=== PATIENT | female | born 1950 | race Caucasian/White ===

== ENCOUNTER → 2017-10-27 10:58 | Outpatient (CLI) | payer MEDICARE, SELFPAY ==
[2017-10-27 12:16] LABS: Absolute Lymphocyte Count 1.01 X10^3/ul (0.83-4.51); Absolute Neutrophil Count 3.2 X10^3/uL (2.0-7.7); Basophil# 0.02 X10^3/uL; Basophil% 0.4 % (0-1); Eosinophil# 0.24 X10^3/uL; Eosinophils% 4.9 % (0-5); Hematocrit 41.1 % (37-47); Hemoglobin 13.7 g/dl (12.0-15.0); Lymphocyte # 1.01 X10^3/ul (4.0); Lymphocyte % 20.4 % (19-41); Mean Corp Hgb Conc 33.3 g/gl (32-36); Mean Corpuscular Hgb 29.8 pg (27.0-32.0); Mean Corpuscular Volume 89.5 fL (81-99); Mean Platelet Vol. 10.3 fl (6.2-12.0); Monocyte# 0.44 X10^3/uL; Monocyte% 8.9 % (0-10); Neutrophil # 3.22 X10^3/uL (2.7-7.7); Neutrophil % 65.2 % (47-70); Platelet Count 232 K/mm3 (150-450); RBC Distribution Width CV 14.4 % (11.6-14.6); RBC Distribution Width SD 47.2 fl (35.1-43.9); Red Blood Count 4.59 M/mm3 (4.2-5.4); White Blood Count 4.9 K/mm3 (4.4-11.0)
[2017-10-27 12:19] LABS: POSITIVE COUNT NO; POSITIVE DIFFERENTIAL NO; POSITIVE MORPHOLOGY NO
[2017-10-27 12:22] LABS: Vitamin D,25 Hydroxy 45.2 ng/mL (19.95-100.01)
[2017-10-27 12:25] LABS: AST(SGOT) 18 U/L (15-37); Alanine Aminotransfer ALT/SGPT 26 U/L (13-56); Albumin, Serum 3.8 g/dL (3.2-5.0); Alkaline Phosphatase 102 U/L (45-117); Anion Gap 8 (5-15); BUN 18 mg/dL (7-18); Calcium,Total 8.9 mg/dL (8.5-10.1); Chloride 105 mmol/L (98-107); EST Glomerular Filtration Rate 58 mL/min (>60); Est Glom Filt Rate - Afr Amer 71 mL/min (>60); Globulin 3.9 g/dL (2.2-4.2); Glucose 100 mg/dL (74-106); Potassium 4.2 mmol/L (3.5-5.1); Protein, Total 7.7 g/dL (6.4-8.2); Sodium Level 141 mmol/L (136-145); Thyroid Stim Hormone (TSH) 1.11 uIU/mL (0.358-3.74)
== END ==
PROVIDERS: Family Provider Family Medicine Geriatric Medicine; PCP Family Medicine Geriatric Medicine; Visit Provider Family Medicine Geriatric Medicine
DX: E55.9 Vitamin D deficiency, unspecified (principal); I10 Essential (primary) hypertension
CPT/HCPCS: 36415; 80053; 82306; 84443; 85025

== ENCOUNTER → 2018-03-17 14:05 | Outpatient (CLI) | payer MEDICARE, OTHER, SELFPAY | PROVIDERS: Family Provider Family Medicine Geriatric Medicine; PCP Family Medicine Geriatric Medicine; Visit Provider Family Medicine Geriatric Medicine | DX: R50.9 Fever, unspecified (principal) | CPT/HCPCS: 87633 ==

== ENCOUNTER → 2018-05-12 15:07 | Outpatient (CLI) | payer MEDICARE, OTHER, SELFPAY ==
[2018-05-12 16:17] LABS: Absolute Lymphocyte Count 1.27 X10^3/ul (0.83-4.51); Absolute Neutrophil Count 2.8 X10^3/uL (2.0-7.7); Basophil# 0.02 X10^3/uL; Basophil% 0.4 % (0-1); Eosinophil# 0.18 X10^3/uL; Eosinophils% 3.7 % (0-5); Hematocrit 39.5 % (37-47); Hemoglobin 13.1 g/dl (12.0-15.0); Lymphocyte # 1.27 X10^3/ul (4.0); Lymphocyte % 26.4 % (19-41); Mean Corp Hgb Conc 33.2 g/gl (32-36); Mean Corpuscular Hgb 29.8 pg (27.0-32.0); Mean Corpuscular Volume 89.8 fL (81-99); Mean Platelet Vol. 10.1 fl (6.2-12.0); Monocyte# 0.51 X10^3/uL; Monocyte% 10.6 % (0-10); Neutrophil # 2.83 X10^3/uL (2.7-7.7); Neutrophil % 58.9 % (47-70); Platelet Count 223 K/mm3 (150-450); RBC Distribution Width CV 13.7 % (11.6-14.6); RBC Distribution Width SD 44.6 fl (35.1-43.9); White Blood Count 4.8 K/mm3 (4.4-11.0)
[2018-05-12 16:22] LABS: POSITIVE COUNT NO; POSITIVE DIFFERENTIAL NO; POSITIVE MORPHOLOGY NO
[2018-05-12 17:18] LABS: ALB/GLOB Ratio 1.1 RATIO (0.9-2.4); AST(SGOT) 19 U/L (15-37); Alanine Aminotransfer ALT/SGPT 21 U/L (13-56); Albumin, Serum 3.7 g/dL (3.2-5.0); Alkaline Phosphatase 87 U/L (45-117); Anion Gap 12 (5-15); BUN 15 mg/dL (7-18); BUN/Creat Ratio 16.5 RATIO (10-20); Calcium,Total 8.7 mg/dL (8.5-10.1); Chloride 105 mmol/L (98-107); Creatinine, Serum 0.91 mg/dL (0.55-1.02); EST Glomerular Filtration Rate 65 mL/min (>60); Est Glom Filt Rate - Afr Amer 79 mL/min (>60); Globulin 3.4 g/dL (2.2-4.2); Glucose 83 mg/dL (74-106); Potassium 3.9 mmol/L (3.5-5.1); Protein, Total 7.1 g/dL (6.4-8.2); Sodium Level 143 mmol/L (136-145); Thyroid Stim Hormone (TSH) 1.14 uIU/mL (0.358-3.74)
[2018-05-13 09:19] LABS: Vitamin D,25 Hydroxy 58.2 ng/mL (29.95-100.01)
[2018-05-15 11:19] LABS: Hep C Antibodies 0.1 s/co ratio (0.0-0.9)
== END ==
PROVIDERS: Family Provider Family Medicine Geriatric Medicine; PCP Family Medicine Geriatric Medicine; Visit Provider Family Medicine Geriatric Medicine
DX: E55.9 Vitamin D deficiency, unspecified (principal); I10 Essential (primary) hypertension; Z13.89 Encounter for screening for other disorder
CPT/HCPCS: 36415; 80053; 82306; 84443; 85025; 86803

== ENCOUNTER → 2018-05-17 08:27 | Outpatient (CLI) | payer MEDICARE, OTHER, SELFPAY | PROVIDERS: Family Provider Family Medicine Geriatric Medicine; PCP Family Medicine Geriatric Medicine; Visit Provider Obstetrics & Gynecology | DX: Z12.31 Encounter for screening mammogram for malignant neoplasm of breast (principal) | CPT/HCPCS: 77063; 77067 ==

== ENCOUNTER → 2018-10-11 12:21 | Outpatient (CLI) | payer MEDICARE, OTHER, SELFPAY ==
--- NOTE | 2018-10-11 12:24 | RAD_ITS ---
STUDY: X-RAY - CERVICAL SPINE REASON FOR EXAM: Female, 68 years old. Pain following a fall. TECHNIQUE: 3 view(s) of the cervical spine were obtained. COMPARISON: None FINDINGS: Normal anterior atlantoaxial articulation. Normal odontoid process. Normal cervical lordosis. Normal vertebral bodies and endplates. Mild degree of disc space narrowing at the C5-C6 and C6-C7 levels. Facet joint osteoarthritis. The soft tissue structures are unremarkable. RAD/Cerv Spine 2 or 3 Views IMPRESSION: Mild degree of disc space narrowing at the C5-C6 and C6-C7 levels. Facet joint osteoarthritis. Electronically Signed: Aristides Colin MD at 8:58 EST Tel [phone], Service support ,
--- NOTE | 2018-10-11 12:24 | CT_ITS ---
STUDY: CT BRAIN WITHOUT CONTRAST REASON FOR EXAM: Female, 68 years old. Injury to the posterior aspect of the head following a fall. Sensitivity to light. RADIATION DOSAGE (If Supplied By Facility): CTDIvol = ( 44.99 ) mGy, DLP = ( 745.49 ) mGycm TECHNIQUE: Transaxial CT imaging of the brain was performed without administration of intravenous contrast material. Individualized dose optimization techniques were used for this CT. COMPARISON: Comparison is made with prior study dated September 30, 2013. FINDINGS: Normal soft tissue structures. Normal calvarium. Normal size ventricles and extra-axial spaces for the patient's age. Normal white matter tracts of the cerebral hemispheres. Normal basal ganglia and thalami. Normal brainstem. Normal cerebellum. There is no intracranial hemorrhage. There are no findings of an acute ischemic infarction. Normal visualized paranasal sinuses. CT/Brain/Head without Contrast IMPRESSION: Normal unenhanced CT scan of the brain. Electronically Signed: Aristides Colin MD at 12:55 EST Tel [phone], Service support ,
[2018-10-11 17:33] LABS: Absolute Lymphocyte Count 0.86 X10^3/ul (0.83-4.51); Basophil# 0.01 X10^3/uL; Basophil% 0.2 % (0-1); Eosinophil# 0.13 X10^3/uL; Eosinophils% 2.9 % (0-5); Hematocrit 39.1 % (37-47); Hemoglobin 12.8 g/dl (12.0-15.0); Lymphocyte # 0.86 X10^3/ul (4.0); Lymphocyte % 19.2 % (19-41); Mean Corp Hgb Conc 32.7 g/gl (32-36); Mean Corpuscular Volume 91.8 fL (81-99); Mean Platelet Vol. 10.2 fl (6.2-12.0); Monocyte# 0.45 X10^3/uL; Neutrophil # 3.03 X10^3/uL (2.7-7.7); Neutrophil % 67.7 % (47-70); Platelet Count 194 K/mm3 (150-450); RBC Distribution Width CV 14.1 % (11.6-14.6); RBC Distribution Width SD 47.1 fl (35.1-43.9); Red Blood Count 4.26 M/mm3 (4.2-5.4); White Blood Count 4.5 K/mm3 (4.4-11.0)
[2018-10-11 17:34] LABS: POSITIVE COUNT NO; POSITIVE DIFFERENTIAL NO; POSITIVE MORPHOLOGY NO
[2018-10-11 17:37] LABS: Anion Gap 8 (5-15); BUN 17 mg/dL (7-18); BUN/Creat Ratio 19.7 RATIO (10-20); Calcium,Total 8.6 mg/dL (8.5-10.1); Chloride 109 mmol/L (98-107); Creatinine, Serum 0.86 mg/dL (0.55-1.02); EST Glomerular Filtration Rate 69 mL/min (>60); Est Glom Filt Rate - Afr Amer 84 mL/min (>60); Glucose 78 mg/dL (74-106); Potassium 4.1 mmol/L (3.5-5.1); Sodium Level 143 mmol/L (136-145)
--- OUTSIDE RECORDS SUMMARY | 2018-12-13 16:01 | XMS RPT_ITS ---
:1950 Author Organization [place] Support Name Relationship Address Phone R Unavailable Unavailable Unavailable TRISTIAN BRADFORD Unavailable [address] + [address] [place] [address] GNENY BRADFORD Unavailable [address] + [place] [address] R Unavailable Unavailable Unavailable TRISTIAN BRADFORD Unavailable [address] + [address] [place] [address] GENNY BRADFORD Unavailable [address] + [place] [address] R Unavailable Unavailable Unavailable TRISTIAN BRADFORD Unavailable [address] + [address] [place] [address] GENNY BRADFORD Unavailable [address] + [place] [address] R Unavailable Unavailable Unavailable TRISTIAN BRADFORD Unavailable [address] + [address] [place] [address] GENNY BRADFORD Unavailable [address] + [place] [address] R Unavailable Unavailable Unavailable TRISTIAN BRADFORD Unavailable [address] + [address] [place] [address] GENNY BRADFORD Unavailable [address] + [place] [address] R Unavailable Unavailable Unavailable TRISTIAN BRADFORD Unavailable [address] + [address] [place] [address] GENNY BRADFORD Unavailable [address] + [place] [address] R Unavailable Unavailable Unavailable TRISTIAN BRADFORD Unavailable [address] + [address] [place] [address] SANCHEZ, GENNY Unavailable [address] + [place] [address] R Unavailable Unavailable Unavailable TRISTIAN BRADFORD Unavailable [address] + [address] [place] [address] YOHARPREET, GENNY Unavailable [address] + [place] [address] Care Team Providers Name Role Phone Shine, Desmond Chi Attending Unavailable Shine, Desmond Chi Referring Unavailable Shine, Desmond Chi Primary Care Unavailable Shine, Desmond Chi Attending Unavailable Shine, Desmond Chi Primary Care Unavailable Kylee Verdin Attending Unavailable Mary Abreu Attending Unavailable Segundo Lyons Attending Unavailable Shine, Desmond Chi Referring Unavailable Shine, Desmond Chi Primary Care Unavailable Shine, Desmond Chi Attending Unavailable Shine, Desmond Chi Referring Unavailable Shine, Desmond Chi Primary Care Unavailable Shaneka Mcclendon Attending Unavailable Shine, Desmond Chi Primary Care Unavailable Shine, Desmond Chi Attending Unavailable Shine, Desmond Chi Primary Care Unavailable PROBLEMS PROBLEMS DATE TYPE CONDITION / CODE ATTENDING STATUS SOURCE 05/12/2018 Unknown E55.9 - Vitamin D Shine, Desmond Chi Active Mj deficiency, Community unspecified / Hospital E55.9(ICD-10) Repository 03/17/2018 Unknown R50.9 - Fever, Shine, Desmond Chi Active Mj unspecified / Community R50.9(ICD-10) Hospital Repository 10/29/2017 Unknown I10 - Essential Shine, Desmond Chi Active Mj (primary) Community hypertension / Hospital I10(ICD-10) Repository PROCEDURES PROCEDURES No Procedure Records FoundRESULTS RESULTS CBC W/DIFF, AUTOMATED Collected: 10/11/2018 Status: F Source: MJ 2:11 PM [facility] HOSPITAL REPOSITORY TYPE CODE TESTS RESULT OUT OF RANGE REFERENCE UNITS LAB L100.1000 4.4-11.0 K/mm3 Normal WBC 4.5 LAB L100.1200 4.2-5.4 M/mm3 Normal RBC 4.26 LAB L100.1300 12.0-15.0 g/dl Normal HGB 12.8 LAB L100.1400 37-47 % Normal HCT 39.1 LAB L100.1500 81-99 fL Normal MCV 91.8 LAB L100.1600 27.0-32.0 pg Normal MCH 30.0 LAB L100.1700 32-36 g/gl Normal MCHC 32.7 LAB L100.1810 11.6-14.6 % Normal RDW CV 14.1 LAB L100.1820 35.1-43.9 fl High RDW SD 47.1 LAB L100.1900 150-450 K/mm3 Normal PLT 194 LAB L100.2000 6.2-12.0 fl Normal MPV 10.2 LAB L100.2100 47-70 % Normal NEUT% 67.7 LAB L100.2200 19-41 % Normal LY% 19.2 LAB L100.2300 0-10 % Normal MONO% 10.0 LAB L100.2400 0-5 % Normal EO% 2.9 LAB L100.2500 0-1 % Normal BASO% 0.2 LAB L100.2550 0.0-0.9 % Normal IM GRAN % 0.000 Result Comment: IG% - Immature Granulocytes (promyelocytes, myelocytes and metamyelocytes) > 1% indicates that a LEFT SHIFT is Present. LAB L100.2620 2.0-7.7 X10 3/uL Normal Absolute Neut 3.0 LAB L100.2720 0.83-4.51 X10 3/ul Normal Absolute Lymph 0.86 Performed By: #### L100.0100 #### [facility] [place], [place], [id number] BASIC METABOLIC Collected: 10/11/2018 Status: F Source: [place] PROFILE (BMP) 2:11 PM [facility] REPOSITORY TYPE CODE TESTS RESULT OUT OF RANGE REFERENCE UNITS LAB L501.0100 74-106 mg/dL Normal GLU 78 Result Comment: Please note revised GLUCOSE reference range effective 2017. LAB L501.1000 7-18 mg/dL Normal BUN 17 LAB L501.1100 0.55-1.02 mg/dL Normal CREAT,SERUM 0.86 Result Comment: The validity of the calculated GFR AND GFRAA in patients over 70 years has not been determined. Clinical correlation is essential. LAB L501.1110 >60 mL/min Normal EST GFR 69 Result Comment: Non- GFR Calc LAB L501.1115 >60 mL/min Normal EST GFR - AA 84 Result Comment: GFR Calc LAB L501.1300 10-20 RATIO Normal BUN/CRE 19.7 LAB L501.2200 8.5-10.1 mg/dL CA Normal 8.6 LAB L501.5300 136-145 mmol/L NA Normal 143 LAB L501.5600 3.5-5.1 mmol/L K Normal 4.1 LAB L501.5900 98-107 mmol/L High CL 109 LAB L501.6100 21.0-32.0 mmol/L Normal CO2 26.0 LAB L501.6200 5-15 Normal GAP 8 Performed By: #### L500.2500 #### [facility] [address] [facility], [address] BRAIN/HEAD WITHOUT Observed: 10/11/2018 Status: F Source: [place] CONTRAST 12:24 PM [facility] REPOSITORY [facility] Imaging Services [address] [place] [address] Brain/Head without Contrast MR#: [id number] Acct: [id number] Name: VIOLA BRADFORD Rep #: [id number] : 1950 F 68 From: Aristides Colin MD PCP: Desmond Riojas MD, Chi Status: REG CLI Study: Brain/Head without Contrast Date of Exam: 10/11/18 Exam# [id number] Ordering Dr: Desmond Riojas MD STUDY: CT BRAIN WITHOUT CONTRAST REASON FOR EXAM: Female, 68 years old. Injury to the posterior aspect of the head following a fall. Sensitivity to light. RADIATION DOSAGE (If Supplied By Facility): CTDIvol = ( 44.99 ) mGy, DLP = ( 745.49 ) mGycm TECHNIQUE: Transaxial CT imaging of the brain was performed without administration of intravenous contrast material. Individualized dose optimization techniques were used for this CT. COMPARISON: Comparison is made with prior study dated September 30, 2013. FINDINGS: Normal soft tissue structures. Normal calvarium. Normal size ventricles and extra-axial spaces for the patient's age. Normal white matter tracts of the cerebral hemispheres. Normal basal ganglia and thalami. Normal brainstem. Normal cerebellum. There is no intracranial hemorrhage. There are no findings of an acute ischemic infarction. Normal visualized paranasal sinuses. CT/Brain/Head without Contrast IMPRESSION: Normal unenhanced CT scan of the brain. Electronically Signed: Aristides Colin MD at 12:55 EST Tel [phone], Service support , CC: Desmond Riojas MD Air Press Operator: Signed CERV SPINE 2 OR 3 Observed: 10/11/2018 Status: F Source: [place] VIEWS 12:24 PM [facility] REPOSITORY [facility] Imaging Services [address] [place] [address] Cerv Spine 2 or 3 Views MR#: [id number] Acct: [id number] Name: VIOLA BRADFORD Rep #: [id number] : 1950 F 68 From: Aristides Colin MD PCP: Desmond Riojas MD, Chi Status: REG CLI Study: Cerv Spine 2 or 3 Views Date of Exam: 10/11/18 Exam# [id number] Ordering Dr: Desmond Riojas MD STUDY: X-RAY - CERVICAL SPINE REASON FOR EXAM: Female, 68 years old. Pain following a fall. TECHNIQUE: 3 view(s) of the cervical spine were obtained. COMPARISON: None FINDINGS: Normal anterior atlantoaxial articulation. Normal odontoid process. Normal cervical lordosis. Normal vertebral bodies and endplates. Mild degree of disc space narrowing at the C5-C6 and C6-C7 levels. Facet joint osteoarthritis. The soft tissue structures are unremarkable. RAD/Cerv Spine 2 or 3 Views IMPRESSION: Mild degree of disc space narrowing at the C5-C6 and C6-C7 levels. Facet joint osteoarthritis. Electronically Signed: Aristides Colin MD at 8:58 EST Tel [phone], Service support , CC: Desmond Riojas MD Air Press Operator: Signed SCREENING MAMM (CAD), Observed: 05/17/2018 Status: F Source: MJ BILAT 8:32 AM [facility] REPOSITORY [facility] Imaging Services [address] [place] [address] SCREENING MAMM (CAD), BILAT MR#: [id number] Acct: [id number] Name: VIOLA BRADFORD Rep #: [id number] : 1950 F 68 From: Aristides Colin MD PCP: Desmond Riojas MD, Chi Status: REG CLI Study: SCREENING MAMM (CAD), BILAT Date of Exam: 05/17/18 Exam# [id number] Ordering Dr: Shaneka Mcclendon MD MAMMOGRAPHY - BILATERAL SCREENING REASON FOR EXAM: Female, 68 years old. Routine annual screening examination. PERTINENT HISTORY: Non-contributory. TECHNIQUE: Digital bilateral breast odell (3D mammographic acquisition) in the CC and MLO projections. 2-D mediolateral oblique (MLO) and craniocaudad (CC) views of both breasts were obtained. CAD: Full Field Digital Mammography with Computer Added Detection was performed. COMPARISON: Comparison is made with prior examination dated May 12, 2017 and May 11, 2016. FINDINGS: Breast Composition: The breasts are almost entirely fatty. There are no dominant masses or suspicious calcifications. Stable benign-appearing bilateral axillary lymph nodes and vascular calcifications. No other significant abnormalities are identified. There has been no significant change since the prior study. BI/SCREENING MAMM (CAD), BILAT IMPRESSION: Stable bilateral screening mammogram. Yearly follow-up mammogram recommended. (A) ASSESSMENT CATEGORY: BIRADS Category 2: Benign. A letter regarding these results will be sent to the patient by the facility within 30 days. Approximately 10% of breast cancers are not detected by mammography. A normal mammogram should not delay biopsy of a clinically suspicious abnormality. [id number] Electronically Signed: Aristides Colin MD at 10:26 EDT Tel [phone], Service support , CC: Shaneka Mcclendon MD; Desmond Riojas MD Air Press Operator: Signed CBC W/DIFF, AUTOMATED Collected: 05/12/2018 Status: F Source: [place] 3:14 PM [facility] REPOSITORY TYPE CODE TESTS RESULT OUT OF RANGE REFERENCE UNITS LAB L100.1000 4.4-11.0 K/mm3 Normal WBC 4.8 LAB L100.1200 4.2-5.4 M/mm3 Normal RBC 4.40 LAB L100.1300 12.0-15.0 g/dl Normal HGB 13.1 LAB L100.1400 37-47 % Normal HCT 39.5 LAB L100.1500 81-99 fL Normal MCV 89.8 LAB L100.1600 27.0-32.0 pg Normal MCH 29.8 LAB L100.1700 32-36 g/gl Normal MCHC 33.2 LAB L100.1810 11.6-14.6 % Normal RDW CV 13.7 LAB L100.1820 35.1-43.9 fl High RDW SD 44.6 LAB L100.1900 150-450 K/mm3 Normal PLT 223 LAB L100.2000 6.2-12.0 fl Normal MPV 10.1 LAB L100.2100 47-70 % Normal NEUT% 58.9 LAB L100.2200 19-41 % Normal LY% 26.4 LAB L100.2300 0-10 % High MONO% 10.6 LAB L100.2400 0-5 % Normal EO% 3.7 LAB L100.2500 0-1 % Normal BASO% 0.4 LAB L100.2550 0.0-0.9 % Normal IM GRAN % 0.000 Result Comment: IG% - Immature Granulocytes (promyelocytes, myelocytes and metamyelocytes) > 1% indicates that a LEFT SHIFT is Present. LAB L100.2620 2.0-7.7 X10 3/uL Normal Absolute Neut 2.8 LAB L100.2720 0.83-4.51 X10 3/ul Normal Absolute Lymph 1.27 Performed By: #### L100.0100 #### [facility] [address] [place], [address] COMPREHENSIVE METABOLIC Collected: 05/12/2018 Status: F Source: [facility] 3:14 PM [facility] REPOSITORY TYPE CODE TESTS RESULT OUT OF RANGE REFERENCE UNITS LAB L501.0100 74-106 mg/dL Normal GLU 83 Result Comment: Please note revised GLUCOSE reference range effective 2017. LAB L501.1000 7-18 mg/dL Normal BUN 15 LAB L501.1100 0.55-1.02 mg/dL Normal CREAT,SERUM 0.91 Result Comment: The validity of the calculated GFR AND GFRAA in patients over 70 years has not been determined. Clinical correlation is essential. LAB L501.1110 >60 mL/min Normal EST GFR 65 Result Comment: Non- GFR Calc LAB L501.1115 >60 mL/min Normal EST GFR - AA 79 Result Comment: GFR Calc LAB L501.1300 10-20 RATIO Normal BUN/CRE 16.5 LAB L501.1500 6.4-8.2 g/dL T Normal PROT 7.1 LAB L501.1800 3.2-5.0 g/dL Normal ALB 3.7 LAB L501.1950 2.2-4.2 g/dL Normal GLOB 3.4 LAB L501.2000 0.9-2.4 RATIO Normal A/G 1.1 LAB L501.2200 8.5-10.1 mg/dL CA Normal 8.7 LAB L501.4100 15-37 U/L Normal AST 19 LAB L501.4305 45-117 U/L Normal ALK P 87 LAB L501.4405 13-56 U/L Normal ALT 21 LAB L501.4600 0.20-1.00 mg/dL T Normal BILI 0.50 LAB L501.5300 136-145 mmol/L NA Normal 143 LAB L501.5600 3.5-5.1 mmol/L K Normal 3.9 LAB L501.5900 98-107 mmol/L CL Normal 105 LAB L501.6100 21.0-32.0 mmol/L Normal CO2 26.0 LAB L501.6200 5-15 Normal GAP 12 Performed By: #### L500.4050, L501.9520 #### [facility] [address] [place], [address] THYROID STIM HORMONE Collected: 05/12/2018 Status: F Source: [place] (TSH) 3:14 PM [facility] REPOSITORY TYPE CODE TESTS RESULT OUT OF RANGE REFERENCE UNITS LAB L501.9520 0.358-3.74 uIU/mL Normal TSH 1.14 Performed By: #### L500.4050, L501.9520 #### [facility] [address] [facility]. [place], [place], [address] VITAMIN D,25 HYDROXY Collected: 05/12/2018 Status: F Source: [place] 3:14 PM [facility] REPOSITORY TYPE CODE TESTS RESULT OUT OF RANGE REFERENCE UNITS LAB L506.1000 29.95-100.01 ng/mL Normal Vitamin D 58.2 25-OH Result Comment: Vitamin D 25(OH) Status Range Deficiency <20 ng/mL (50nmol/L) Insuffciency 20 - 30 ng/mL (50 - 75 nmol/L) Sufficiency 30 - 100 ng/mL (75 - 250 nmol/L) Toxicity >100 ng/mL (>250 nmol/L) Performed By: #### L506.1000 #### [facility] [address] [facility]. [place], [place], [address] HEPATITIS C ANTIBODIES Collected: 05/12/2018 Status: F Source: [place] 3:14 PM [facility] REPOSITORY TYPE CODE TESTS RESULT OUT OF RANGE REFERENCE UNITS LAB L3100.0650 0.0-0.9 s/co ratio Normal HEP C AB 0.1 Result Comment: Negative: < 0.8 Indeterminate: 0.8 - 0.9 Positive: > 0.9 The CDC recommends that a positive HCV antibody result be followed up with a HCV Nucleic Acid Amplification test ([id number]). Performed at: - [facility] [address] [id number] Tennis Professional: Fausto Chang PhD, Phone: [phone] Performed By: #### L3100.0625 #### [facility] (refer to report for specific site) refer to report for address and phone number Observed: 03/17/2018 Status: F Source: [place] RESPIRATORY PANEL 2:16 PM [facility] MOLECULAR REPOSITORY Copy of report sent to Infection Control Printer [id number] 03/18/1827 ApruveNNON. Results called on 03/18/18 by DCANNON to /NURSE LINE [phone]. RP PANEL Normal Reference Range = Not Detected ADENOVIRUS Not Detected HUMAN METAPHNEUMO Not Detected INFLUENZA A Not Detected INFLUENZA A (SUBTYPE H1) Not Detected INFLUENZA A (SUBTYPE H3) Not Detected INFLUENZA B Not Detected PARAINFLUENZA 1 Not Detected PARAINFLUENZA 2 Not Detected PARAINFLUENZA 3 Not Detected PARAINFLUENZA 4 Not Detected RHINOVIRUS Positive for RHINOVIRUS by NAAT technology RSV A Not Detected RSV B Not Detected NAAT METHOD Testing was performed using nucleic acid amplification ORGANISM 1: RHINOVIRUS Performed By: #### M100.638 #### [facility] [address] [place] [address]. [place], [address] CARDIOLOGY VISIT Observed: 11/18/2017 Status: F Source: [place] REPORT 7:09 AM [facility] REPOSITORY [facility] [facility] [place] [address] OFFICE VISIT Date of Service: 11/17/17 MR#: [id number] Acct: [id number] Name: VIOLA BRADFORD Rep #: [id number] : 1950 Provider: SERENA Lyons Age/Sex: 67/F Location: [facility] Status: Signed HPI HPI Details: VIOLA BRADFORD, is a 67 F who presents to the office today for a cardiovascular outpatient follow-up. Patient has a history of paroxysmal atrial fibrillation, hypertension, hyperlipidemia, and factor V deficiency. Pt. denies chest, arm, jaw, or neck discomfort. His exercise tolerance is stable. Pt. denies symptoms of CHF, palpitations, lightheadedness, dizziness, near syncope, or syncopal episodes. Pt. denies worsening edema or claudication issues. Pt. denies orthopnea, PND, fever, chills, blood in urine, blood in stool, myalgia, or unexplainable fatigue. 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: No Accompanied by: None Is patient in pain?: No Allergies cefdinir Allergy (Verified 03/04/16 13:52) Unknown diphenhydramine HCl [From Benadryl] Allergy (Verified 03/04/16 13:52) Hives Sulfa (Sulfonamide Antibiotics) Allergy (Verified 03/04/16 13:52) Hives Medications ALPRAZolam [Xanax] 0.25 mg PO DAILY 09/29/13 [History Confirmed 11/16/17] Levocetirizine Dihydrochloride [Xyzal] 5 mg PO DAILY 09/29/13 [History Confirmed 11/16/17] Montelukast [Singulair] 10 mg PO DAILY 09/29/13 [History Confirmed 11/16/17] Omeprazole [Prilosec] 20 mg PO DAILY 09/29/13 [History Confirmed 11/16/17] Potassium Chloride [K-Dur] 20 meq PO BID 09/29/13 [History Confirmed 11/16/17] Verapamil HCl [Verapamil ER] 240 mg PO DAILY 09/29/13 [History Confirmed 11/16/17] Zolpidem Tartrate [Ambien] 10 mg PO QHS PRN PRN 09/29/13 [History Confirmed 11/16/17] apixaban 5 mg tablet 5 mg PO BID 11/10/17 [History Confirmed 11/16/17] ergocalciferol (vitamin D2) 50,000 unit capsule 50,000 unit PO QMONTH 11/10/17 [History Confirmed 11/16/17] furosemide 40 mg tablet 40 mg PO QDAY 11/10/17 [History Confirmed 11/16/17] cyclobenzaprine 10 mg tablet 10 mg PO BID tab 11/16/17 [History Confirmed 11/17/17] naltrexone 8 mg-bupropion 90 mg tablet,extended release 2 tab PO BID tab 11/16/17 [History Confirmed 11/17/17] pravastatin 80 mg tablet 80 mg PO QHS 11/16/17 [History Confirmed 11/17/17] citalopram 40 mg tablet 40 mg PO QDAY tab 11/17/17 [History Confirmed 11/17/17] Ejection fraction %: 65 to 70 PFSH Medical History Paroxysmal atrial fibrillation (Chronic) Long-term use of high-risk medication (Acute) Hyperlipidemia (Chronic) Hypertension (Chronic) Factor V deficiency (Chronic) CKD (chronic kidney disease) (Acute) History of DVT (deep vein thrombosis) (Acute) VALENTIN (obstructive sleep apnea) (Acute) Atrial fibrillation (Inactive) CKD (chronic kidney disease) (Inactive) Fall due to ice or snow (Inactive) Family history of CVA (Inactive) Family history of coronary artery disease (Inactive) Family history of hypertension (Inactive) Head injury without concussion or intracranial hemorrhage (Inactive) account support rep use of drug (Inactive) Obesity, Class III, BMI 40-49.9 (morbid obesity) (Inactive) Traumatic ulcer of left lower extremity (Inactive) Surgical History History of bilateral knee replacement (Resolved) History of cholecystectomy (Resolved) History of total hysterectomy (Resolved) Family History Brother CAD (coronary artery disease) Mother CVA (cerebral vascular accident) CAD (coronary artery disease) Son Hypertension Daughter Hypertension Other Family history of CVA Family history of coronary artery disease Family history of hypertension Social History Smoking Status: Never smoker alcohol intake: never substance use type: does not use caffeine: Yes Type: tea what type of physical activity do you participate in: none seatbelt use: always do you feel safe at home: Yes ROS Const Const: Negative for fatigue, weakness, body ache, fever(s) or chills ENT ENT: Negative for dizziness Cardio Chest Pain: No Palpitations: No Edema: None Muscle aches with walking: None Resp Respiratory: Negative for SOB with activity, SOB at rest, SOB orthopnea\SOB lying down or paroxysmal nocturnal dyspnea GI GI: Negative nausea, black,tarry stools, bright, red blood in stools or vomiting blood/hematemesis : Negative for hematuria or frequent nighttime urination/ nocturia Musc Musc: Negative for muscle aches/ myalgia Neuro Neuro: Negative for weakness, dizziness, lightheadedness, near syncope, syncope or orthostatic symptoms Endo Endo: Negative for fatigue Cardiology Exam Const Appearance: cooperative, healthy appearing, comfortable and no acute distress Orientation: alert, awake and oriented x3 Head Head: normal to inspection Mouth: oral mucosae normal Neck Neck: no JVD and normal visual inspection Carotids: normal carotid upstroke Chest Chest inspection: normal inspection of the chest and normal respiratory effort Auscultation: Bilateral: Clear to Auscultation Cardio Rate: regular rate Rhythm: regular rhythm Heart sounds: S1 normal and S2 normal; negative rub or gallop GI GI: normal to inspection Neuro General: alert, awake, oriented x3 and CN's II-XI intact bilaterally Skin Skin: no rashes or lesions noted Extremities Pulses: Normal: Right Posterior Tibial Pulse, Left Posterior Tibial Pulse, Right Radial Pulse, Left Radial Pulse Lower Extremity Edema: None: Bilateral Psych Psychological: normal affect Supplemental Info Cardiovascular stress test from August 2014 was negative for stress-induced myocardial ischemia and reported an ejection fraction 59%. Echocardiogram from October 2012 showed an estimated ejection fraction of 65%, mild to moderate left atrial enlargement, mildly enlarged right atrium, mild diffuse mitral valve thickening, mild tricuspid valve insufficiency, mild diffuse aortic valve thickening, and an RVSP of 33 mmHg. Assessment AND Plan 1. Paroxysmal atrial fibrillation I48.0 Plan - LIZ Campbell Patient appears to be maintaining regular rhythm. Patient denies any secondary symptoms from this. Her heart rate has remained well controlled since discontinuing beta-stefna. She will continue with factor Xa inhibitor. We will continue to monitor this. 2. Essential hypertension I10 Plan - LIZ Campbell Patient's blood pressure remains on the higher end of expected range. At this time we will continue to monitor this. It appears to be steady since discontinuing beta-stefan. We will not make any medication regimen changes. 3. Mixed hyperlipidemia E78.2 Plan - LIZ Campbell Patient states this is being managed by primary care physician. Patient will continue with current cholesterol lowering medication. 4. 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 Plan Detail Additional Comments - Segundo H Roof, RETAIL LEASING AGENT-C Discussed the above patient with Dr. Smyth in Dr. Garzon's absence, he agrees with the plan of care. Thank you for allowing us to participate in the patients plan of care, if you have any questions please do not hesitate to call. This note was generated using a voice recognition system and there may be incorrect words, spelling or punctuation that were not noted when reviewing the office note prior to saving. 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 11/17/17 1509 <Electronically signed by Segundo DAWKINSC> Date Segundo Lyons RETAIL LEASING AGENT-C 11/18/17 0709<Electronically signed by Dionicio Smyth MD> Cosigner Signature: Date (if applicable) Dionicio Smyth MD CC: Desmond Riojas MD CBC W/DIFF, AUTOMATED Collected: 10/27/2017 Status: F Source: MJ 11:48 AM [facility] REPOSITORY TYPE CODE TESTS RESULT OUT OF RANGE REFERENCE UNITS LAB L100.1000 4.4-11.0 K/mm3 Normal WBC 4.9 LAB L100.1200 4.2-5.4 M/mm3 Normal RBC 4.59 LAB L100.1300 12.0-15.0 g/dl Normal HGB 13.7 LAB L100.1400 37-47 % Normal HCT 41.1 LAB L100.1500 81-99 fL Normal MCV 89.5 LAB L100.1600 27.0-32.0 pg Normal MCH 29.8 LAB L100.1700 32-36 g/gl Normal MCHC 33.3 LAB L100.1810 11.6-14.6 % Normal RDW CV 14.4 LAB L100.1820 35.1-43.9 fl High RDW SD 47.2 LAB L100.1900 150-450 K/mm3 Normal PLT 232 LAB L100.2000 6.2-12.0 fl Normal MPV 10.3 LAB L100.2100 47-70 % Normal NEUT% 65.2 LAB L100.2200 19-41 % Normal LY% 20.4 LAB L100.2300 0-10 % Normal MONO% 8.9 LAB L100.2400 0-5 % Normal EO% 4.9 LAB L100.2500 0-1 % Normal BASO% 0.4 LAB L100.2550 0.0-0.9 % Normal IM GRAN % 0.200 Result Comment: IG% - Immature Granulocytes (promyelocytes, myelocytes and metamyelocytes) > 1% indicates that a LEFT SHIFT is Present. LAB L100.2620 2.0-7.7 X10 3/uL Normal Absolute Neut 3.2 LAB L100.2720 0.83-4.51 X10 3/ul Normal Absolute Lymph 1.01 Performed By: #### L100.0100 #### [facility] [address] [place] [address], 260411 VITAMIN D,25 HYDROXY Collected: 10/27/2017 Status: F Source: [place] 11:48 [facility] REPOSITORY TYPE CODE TESTS RESULT OUT OF RANGE REFERENCE UNITS LAB L506.1000 19.95-100.01 ng/mL Normal Vitamin D 45.2 25-OH Result Comment: Vitamin D 25(OH) Status Range Deficiency <20 ng/mL (50nmol/L) Insuffciency 20 - 30 ng/mL (50 - 75 nmol/L) Sufficiency 30 - 100 ng/mL (75 - 250 nmol/L) Toxicity >100 ng/mL (>250 nmol/L) Performed By: #### L506.1000 #### [facility] [place], [place], [address] COMPREHENSIVE METABOLIC Collected: 10/27/2017 Status: F Source: MJ PROFIL 11:48 AM [facility] REPOSITORY TYPE CODE TESTS RESULT OUT OF RANGE REFERENCE UNITS LAB L501.0100 74-106 mg/dL Normal GLU 100 LAB L501.1000 7-18 mg/dL Normal BUN 18 LAB L501.1100 0.55-1.02 mg/dL Normal 1.00 CREAT,SERUM Result Comment: The validity of the calculated GFR AND GFRAA in patients over 70 years has not been determined. Clinical correlation is essential. LAB L501.1110 >60 mL/min Low EST GFR 58 Result Comment: Non- GFR Calc LAB L501.1115 >60 mL/min Normal EST GFR - AA 71 Result Comment: GFR Calc LAB L501.1300 10-20 RATIO Normal BUN/CRE 18.0 LAB L501.1500 6.4-8.2 g/dL T Normal PROT 7.7 LAB L501.1800 3.2-5.0 g/dL Normal ALB 3.8 LAB L501.1950 2.2-4.2 g/dL Normal GLOB 3.9 LAB L501.2000 0.9-2.4 RATIO Normal A/G 1.0 LAB L501.2200 8.5-10.1 mg/dL CA Normal 8.9 LAB L501.4100 15-37 U/L Normal AST 18 LAB L501.4305 45-117 U/L Normal ALK P 102 LAB L501.4405 13-56 U/L Normal ALT 26 Result Comment: Please note revised ALT reference range effective 2017. LAB L501.4600 0.20-1.00 mg/dL Normal T BILI 0.70 LAB L501.5300 136-145 mmol/L Normal NA 141 LAB L501.5600 3.5-5.1 mmol/L Normal K 4.2 LAB L501.5900 98-107 mmol/L Normal CL 105 LAB L501.6100 21.0-32.0 mmol/L Normal CO2 28.0 LAB L501.6200 5-15 Normal GAP 8 Performed By: #### L500.4050, L501.9520 #### [facility] [address] [place], [address] THYROID STIM HORMONE Collected: 10/27/2017 Status: F Source: MJ (TSH) 11:48 AM [facility] REPOSITORY TYPE CODE TESTS RESULT OUT OF RANGE REFERENCE UNITS LAB L501.9520 0.358-3.74 uIU/mL Normal TSH 1.11 Performed By: #### L500.4050, L501.9520 #### [facility] [address], [address] ALLERGIES ALLERGIES DATE TYPE / NAME / CODE REACTION SEVERITY SOURCE CODE 03/04/2016 Drug diphenhydramine Hives Unknown [place] Allergy/41 HCl/[id number](RXNORM [facility] [id number]([facility]) Repository 03/04/2016 Drug Sulfa (Sulfonamide Hives Unknown [place] Allergy/41 Antibiotics)/[id number] [facility] [id number]([facility] 03/04/2016 Drug cefdinir/[id number](R Unknown Unknown [place] Allergy/41 XNORM) [facility] [id number]([facility]) Repository ENCOUNTERS ENCOUNTERS ADMIT/DISCHARGE ACCOUNT ADMITTING ENCOUNTER LOCATION SOURCE NUMBER CLASS 10/11/2018 [id number] Ambulatory Mj [place] 2 [facility] ing:CT Repository 05/17/2018 [id number] Ambulatory [place] Mj 9 [facility] ing:OPBI Repository 05/12/2018 [id number] Ambulatory Mj [place] 9 [facility] ing:POLAB3 Repository 03/17/2018 [id number] Ambulatory [place] 6 [facility] ing:PSN Repository 11/17/2017/ [id number] Ambulatory BMSBuilding:B Mj 8 9 [facility] Repository 11/17/2017 [id number] Ambulatory BMSBuilding:B [place] 3 [facility] Repository 11/16/2017 [id number] Ambulatory BMSBuilding:B Mj 8 [facility] Repository 10/27/2017 [id number] Ambulatory Mj [place] 4 [facility] ing:POLAB3 Repository PAYERS PAYERS ENCOUNTER GUARANTOR PAYER SUBSCRIBER SOURCE 10/11/2018 TRISTIAN Barker Jr.[address] [place] [address] Insurance:MEDICARE YOCKEYDOB: Community [address] [facility] [id number], [place] Number: Repository [address]Bon: 330 [id number] [phone] () Date:2018-10-11 10/11/2018 Secondary VIOLA J [place] Insurance:MUTUAL OF YOCKEYDOB: [facility] Number: [id number] Hospital [id number] Repository Date:[id number] [facility], [place] [address]MD: 10/11/2018 Tertiary NOT GIVENUNK [place] Insurance:SELF PAY [facility] Number: Effective Repository Date:2018-10-11 05/17/2018 TRISTIAN BRADFORD Primary VIOLA J Mj Jr.[address] Insurance:MEDICARE [facility]KEYD[facility] [id number], [place] Number: Repository [address]Trm: 330 [id number] [phone] () Date:2018-02-09 05/17/2018 Secondary VIOLA J [place] Insurance:MUTUAL OF YOCKEYDOB: [facility] Number: [id number] Hospital [id number] Repository Date:[id number] [facility] [address]UK: 05/17/2018 Tertiary NOT GIVENUNK Mj Insurance:SELF PAY [facility] Number: Effective Repository Date:2018-02-09 05/12/2018 TRISTIAN BRADFORD Primary VIOLA J Mj Jr.[address] Insurance:MEDICARE YOCKEYDOB: [facility] [address] [facility] [id number], [place] Number: Repository [address]Rgg: 330 [id number] [phone] () Date:2018-05-12 05/12/2018 Secondary VIOLA J Mj Insurance:UNITED YOCKEYDOB: [facility] [id number] Hospital COPolicy Number: Repository [id number] Date: [place], [place] [address]CZ: 05/12/2018 Tertiary NOT GIVENUNK Mj Insurance:SELF PAY [facility] Number: Effective Repository Date:2018-05-12 03/17/2018 TRISTIAN BRADFORD Primary VIOLA J Mj Jr[address] Insurance:MEDICARE YOCKEYDOB: Community [address] [facility] [id number], [place] Number: Repository [address]Phz: 330 [id number] [phone] () Date:2018-03-17 03/17/2018 Secondary VIOLA J Mj Insurance:UNITED YOCKEYDOB: [facility] [id number] Hospital COPolicy Number: Repository [id number] Date: [place], [place] [address]QU: 03/17/2018 Tertiary NOT GIVENUNK [place] Insurance:SELF PAY [facility] Number: Effective Repository Date:2018-03-17 11/17/2017 TRISTIAN BRADFORD Primary VIOLA J Mj Jr.[address] Insurance:MEDICARE YOCKEYDOB: Community [address] [facility] [id number], [place] Number: Repository [id number]: 330 [id number] [phone] () Date:2017-08-26 11/17/2017 Secondary VIOLA J [place] Insurance:UNITED YOCKEYDOB: [facility] [id number] Hospital COPolicy Number: Repository [id number] Date:2017-08-26 11/17/2017 Tertiary NOT GIVENUNK Mj Insurance:SELF PAY [facility] Number: Effective Repository Date:2017-08-26 11/17/2017 TRISTIAN CLAYTONEY Primary Viola J [place] Jr.[address] Insurance:MEDICARE YockeyDOB: Community St[address] [facility] [id number], [place] Number: Repository [address]Cgv: 330 [id number] [phone] () Date:2017-11-17 11/17/2017 Secondary NOT GIVENUNK Mj Insurance:SELF PAY [facility] Number: Effective Repository Date:2017-11-17 11/16/2017 TRISTIAN BRADFORD Primary Viola Barker Jr.[address] Insurance:MEDICARE YockeyDOB: Community St[address] A [facility] [id number] Number: Repository [id number]: 330 [id number] [phone] () Date:2017-11-16 11/16/2017 Secondary NOT GIVENUNK [place] Insurance:SELF PAY [facility] Number: Effective Repository Date:2017-11-16 10/27/2017 TRISTIAN BRADFORD Primary Viola Barker Jr.[address] Insurance:MEDICARE YockeyDOB: [facility] Box PART A [facility] [id number] Number: Repository [address]Ciq: 330 [id number] [phone] () Date:2017-10-27 10/27/2017 Secondary NOT GIVENUNK [place] Insurance:SELF PAY [facility] Number: Effective Repository Date:2017-10-27
== END ==
PROVIDERS: Family Provider Family Medicine Geriatric Medicine; PCP Family Medicine Geriatric Medicine; Referring Provider Family Medicine Geriatric Medicine; Visit Provider Family Medicine Geriatric Medicine
DX: S09.90XA Unspecified injury of head, initial encounter (principal)
CPT/HCPCS: 36415; 70450; 72040; 80048; 85025

== ENCOUNTER → 2018-11-10 13:38 | Outpatient (CLI) | payer MEDICARE, OTHER, SELFPAY ==
[2018-10-17 09:24] VITALS: BMI 36.9
[2018-11-10 16:29] LABS: Absolute Lymphocyte Count 0.86 X10^3/ul (0.83-4.51); Absolute Neutrophil Count 3.6 X10^3/uL (2.0-7.7); Basophil# 0.02 X10^3/uL; Basophil% 0.4 % (0-1); Eosinophil# 0.13 X10^3/uL; Eosinophils% 2.6 % (0-5); Hematocrit 43.2 % (37-47); Hemoglobin 14.2 g/dl (12.0-15.0); Lymphocyte # 0.86 X10^3/ul (4.0); Lymphocyte % 17.2 % (19-41); Mean Corp Hgb Conc 32.9 g/gl (32-36); Mean Corpuscular Hgb 30.9 pg (27.0-32.0); Mean Corpuscular Volume 94.1 fL (81-99); Mean Platelet Vol. 10.5 fl (6.2-12.0); Monocyte# 0.43 X10^3/uL; Monocyte% 8.6 % (0-10); Neutrophil # 3.56 X10^3/uL (2.7-7.7); Neutrophil % 71.2 % (47-70); Platelet Count 215 K/mm3 (150-450); RBC Distribution Width CV 15.2 % (11.6-14.6); RBC Distribution Width SD 51.2 fl (35.1-43.9); Red Blood Count 4.59 M/mm3 (4.2-5.4)
[2018-11-10 16:33] LABS: POSITIVE COUNT NO; POSITIVE DIFFERENTIAL NO; POSITIVE MORPHOLOGY NO
[2018-11-10 16:38] LABS: Vitamin D,25 Hydroxy 49.9 ng/mL (29.95-100.01)
[2018-11-10 16:43] LABS: AST(SGOT) 17 U/L (15-37); Alanine Aminotransfer ALT/SGPT 25 U/L (13-56); Albumin, Serum 3.6 g/dL (3.2-5.0); Alkaline Phosphatase 84 U/L (45-117); Anion Gap 4 (5-15); BUN 20 mg/dL (7-18); BUN/Creat Ratio 22.4 RATIO (10-20); Calcium,Total 8.8 mg/dL (8.5-10.1); Chloride 108 mmol/L (98-107); Creatinine, Serum 0.89 mg/dL (0.55-1.02); EST Glomerular Filtration Rate 66 mL/min (>60); Est Glom Filt Rate - Afr Amer 80 mL/min (>60); Globulin 3.5 g/dL (2.2-4.2); Glucose 68 mg/dL (74-106); Potassium 4.2 mmol/L (3.5-5.1); Protein, Total 7.1 g/dL (6.4-8.2); Sodium Level 140 mmol/L (136-145); Thyroid Stim Hormone (TSH) 1.54 uIU/mL (0.358-3.74)
== END ==
PROVIDERS: Family Provider Family Medicine Geriatric Medicine; PCP Family Medicine Geriatric Medicine; Visit Provider Family Medicine Geriatric Medicine
DX: E55.9 Vitamin D deficiency, unspecified (principal); I10 Essential (primary) hypertension
CPT/HCPCS: 36415; 80053; 82306; 84443; 85025

== ENCOUNTER → 2018-11-17 15:10 | Outpatient (CLI) | payer MEDICARE, OTHER, SELFPAY ==
[2018-10-17 09:24] VITALS: BMI 36.9
--- NOTE | 2018-11-17 15:32 | MRI_ITS ---
STUDY: MRI BRAIN WITHOUT CONTRAST REASON FOR EXAM: Female, 68 years old. Headache, trauma TECHNIQUE: Standardized multiplanar fat and water weighted pulse sequences were obtained. COMPARISON: CT head 10/11/2018. FINDINGS: Normal size of the ventricles and extra-axial spaces for the patient's age. Normal white matter tracts of the supratentorial brain. Normal bilateral basal ganglia. Normal thalami. There is no extra-axial fluid accumulation. Normal flow voids within the major intracranial circulation suggesting patency by spin echo criteria. Incidentally noted is empty sella or arachnoid cyst. The diffusion-weighted sequence is normal.. Normal tectal plate and pineal gland. Normal midbrain, yanet and medulla. Normal cerebellum. Normal basal cisterns. Normal bilateral temporal bones. Normal bilateral internal auditory canals. No demonstrated orbital abnormality, within the constraints of a routine brain study. Normal visualized paranasal sinuses. Normal calvarium and skull base. Normal visualized soft tissue structures. Normal visualized upper cervical spine. There is edema of the turbinates. There is mild increased T2 signal and mild mucosal thickening right maxillary sinus. There is minimal mucosal thickening increased T2 signal ethmoid sinuses and frontal sinus. MRI/Brain without Contrast IMPRESSION: No acute intracerebral pathology Incidentally noted is a empty sella or arachnoid cyst Mild inflammatory changes paranasal sinuses Electronically Signed: Abdirashid Davidson, at 17:02 EST Tel , Service support ,
== END ==
PROVIDERS: Family Provider Family Medicine Geriatric Medicine; PCP Family Medicine Geriatric Medicine; Referring Provider Family Medicine Geriatric Medicine; Visit Provider Family Medicine Geriatric Medicine
DX: M53.82 Other specified dorsopathies, cervical region (principal); S09.90XA Unspecified injury of head, initial encounter; X58.XXXA Exposure to other specified factors, initial encounter; Y93.9 Activity, unspecified; Y92.9 Unspecified place or not applicable; Y99.9 Unspecified external cause status
CPT/HCPCS: 70551

== ENCOUNTER → 2019-02-16 | Outpatient (CLI) | payer MEDICARE, OTHER, SELFPAY ==
[2018-10-17 09:24] VITALS: BMI 36.9
--- NOTE | 2019-02-16 10:40 | MRI_ITS ---
HISTORY: headaches SINCE HITTING POSTERIOR HEAD AFTER FALL 09/2018 EXAMINATION: MR Brain W/O Contrast TECHNIQUE: Multiplanar and multisequence MR images of the brain were obtained without gadolinium. IV Contrast dosage and agent: None. COMPARISON: 11/17/18 MRI brain. FINDINGS: PARANASAL SINUSES AND MASTOID AIR CELLS: Clear. CALVARIUM: Unremarkable. INTRACRANIAL HEMORRHAGE: No evidence of intracranial hemorrhage. BRAIN PARENCHYMA: No acute infarct. Cerebrum, cerebellum and brainstem are unremarkable. Normal sella turcica, pituitary gland, infundibular stalk, optic chiasm and hypothalamus. The internal auditory canals are patent. No mass effect or midline shift. CSF SPACES: Appropriate for age. There is no hydrocephalus. Patent basal cisterns. VASCULAR SYSTEM: Normal flow voids in the major intracranial circulation. ORBITS: Both globes, extraocular muscles, optic nerves and retrobulbar fat appear unremarkable. MRI/Brain without Contrast IMPRESSION: Negative MRI Brain without contrast. at 1228 Reported and signed by: Maxi Stroud MD Electronically Signed: Maxi Stroud, at 12:26 EDT Tel , Service support ,
== END | disposition home or self-care (01) ==
LOC: MRI 10:27
PROVIDERS: Family Provider Family Medicine Geriatric Medicine; PCP Family Medicine Geriatric Medicine; Referring Provider Nurse Practitioner Family; Visit Provider Nurse Practitioner Family
DX: R51 Headache (principal); W19.XXXA Unspecified fall, initial encounter
CPT/HCPCS: 70551; 98960; G0463

== ENCOUNTER → 2019-05-17 | Outpatient (CLI) | payer MEDICARE, OTHER, SELFPAY ==
[2019-04-17 08:30] VITALS: BMI 36.9
[2019-05-17 12:51] LABS: Absolute Neutrophil Count 3.4 X10^3/uL (2.0-7.7); Basophil# 0.04 X10^3/uL; Basophil% 0.8 % (0-1); Eosinophil# 0.37 X10^3/uL; Eosinophils% 7.4 % (0-5); Hematocrit 39.3 % (37-47); Hemoglobin 12.8 g/dL (12.0-15.0); Mean Corp Hgb Conc 32.6 g/dL (32-36); Mean Corpuscular Hgb 29.9 pg (27.0-32.0); Mean Corpuscular Volume 91.8 fL (81-99); Mean Platelet Vol. 10.1 fl (6.2-12.0); Monocyte# 0.35 X10^3/uL; NRBC Flagged by Analyzer 0 % (0-5); Neutrophil # 3.35 X10^3/uL (2.7-7.7); Neutrophil % 66.8 % (47-70); Platelet Count 242 K/mm3 (150-450); RBC Distribution Width CV 13.8 % (11.6-14.6); RBC Distribution Width SD 46.7 fl (35.1-43.9); Red Blood Count 4.28 M/mm3 (4.2-5.4)
[2019-05-17 13:11] LABS: AST(SGOT) 18 U/L (15-37); Alanine Aminotransfer ALT/SGPT 22 U/L (13-56); Albumin, Serum 3.6 g/dL (3.2-5.0); Alkaline Phosphatase 87 U/L (45-117); Anion Gap 6 (5-15); BUN 18 mg/dL (7-18); BUN/Creat Ratio 15.7 RATIO (10-20); Calcium,Total 8.8 mg/dL (8.5-10.1); Chloride 111 mmol/L (98-107); Creatinine, Serum 1.15 mg/dL (0.55-1.02); EST Glomerular Filtration Rate 49 mL/min (>60); Est Glom Filt Rate - Afr Amer 60 mL/min (>60); Globulin 3.6 g/dL (2.2-4.2); Glucose 85 mg/dL (74-106); Protein, Total 7.2 g/dL (6.4-8.2); Sodium Level 142 mmol/L (136-145)
[2019-05-17 13:12] LABS: Vitamin D,25 Hydroxy 45.1 ng/mL (29.95-100.01)
== END | disposition home or self-care (01) ==
LOC: POLAB3 09:56
PROVIDERS: Family Provider Family Medicine Geriatric Medicine; PCP Family Medicine Geriatric Medicine; Visit Provider Family Medicine Geriatric Medicine
DX: I10 Essential (primary) hypertension (principal); E55.9 Vitamin D deficiency, unspecified
CPT/HCPCS: 36415; 80053; 82306; 84443; 85025

== ENCOUNTER → 2019-06-01 10:29 | Outpatient (CLI) | payer MEDICARE, OTHER, SELFPAY ==
[2019-04-17 08:30] VITALS: BMI 36.9
--- NOTE | 2019-06-01 10:47 | BI_ITS ---
MAMMOGRAPHY - BILATERAL SCREENING REASON FOR EXAM: Female, 69 years old. Routine annual screening examination. PERTINENT HISTORY: Non-contributory. History of remote bilateral breast reduction surgery. TECHNIQUE: Digital bilateral breast sebastián (3D mammographic acquisition) in the CC and MLO projections. 2-D mediolateral oblique (MLO) and craniocaudad (CC) views of both breasts were obtained. CAD: Full Field Digital Mammography with Computer Added Detection was performed. COMPARISON: Comparison is made with prior study dated May 17, 2018 and May 12, 2017. FINDINGS: Breast Composition: The breasts are almost entirely fatty. There are no dominant masses or suspicious calcifications. Stable appearance of the small benign-appearing bilateral axillary lymph nodes. No other significant abnormalities are identified. There has been no significant change since the prior study. BI/SCREEN MAMM (CAD) W/SEBASTIÁN BILAT IMPRESSION: Stable bilateral screening mammogram. Yearly follow-up mammogram recommended. (A) ASSESSMENT CATEGORY: BIRADS Category 2: Benign. A letter regarding these results will be sent to the patient by the facility within 30 days. Approximately 10% of breast cancers are not detected by mammography. A normal mammogram should not delay biopsy of a clinically suspicious abnormality. [id number] Electronically Signed: Aristides Colin, at 12:29 EDT , Service support ,
== END ==
PROVIDERS: Family Provider Family Medicine Geriatric Medicine; PCP Family Medicine Geriatric Medicine; Referring Provider Family Medicine Geriatric Medicine; Visit Provider Family Medicine Geriatric Medicine
DX: Z12.31 Encounter for screening mammogram for malignant neoplasm of breast (principal)
CPT/HCPCS: 77063; 77067

== ENCOUNTER → 2019-06-28 13:51 | Outpatient (CLI) | payer MEDICARE, OTHER, SELFPAY ==
[2019-04-17 08:30] VITALS: BMI 36.9
--- NOTE | 2019-06-28 13:56 | MRI_ITS ---
STUDY: MRI BRAIN and IACs WITH AND WITHOUT CONTRAST REASON FOR EXAM: Female, 69 years old. Bilateral tendinitis TECHNIQUE: Standardized multiplanar fat and water weighted pulse sequences were obtained. IV Gadavist 19 was administered for the contrast portion of the examination. Small foyga-xa-upeh high-resolution images of the internal auditory canals. COMPARISON: February 16, 2019 MR brain FINDINGS: There is mild cerebral atrophy with widening of the extra-axial spaces and ventricular dilatation. There are a limited number of small white matter hyperintensities, distributed throughout the deep white matter tracts of the cerebral hemispheres, consistent with mild chronic white matter ischemic changes. There is no evidence for recent intracranial ischemia or other cause of cytotoxic edema on diffusion weighted imaging (DWI). Normal bilateral basal ganglia. Normal thalami. There is no extra-axial fluid accumulation. Normal flow voids within the major intracranial circulation suggesting patency by spin echo criteria. Normal venous enhancement. There is no enhancing intra-axial or extra-axial abnormality. Normal sella turcica, pituitary gland, infundibular stalk, optic chiasm and hypothalamus. Normal tectal plate and pineal gland. Normal midbrain, yanet and medulla. Normal cerebellum. Normal basal cisterns. Normal bilateral temporal bones. Normal bilateral internal auditory canals. No demonstrated orbital abnormality, within the constraints of a routine brain study. Normal visualized paranasal sinuses. Normal calvarium and skull base. Normal visualized soft tissue structures. Normal visualized upper cervical spine. MRI/Brain W/WO Contrast IMPRESSION: Normal unenhanced and enhanced MRI of the brain and internal auditory canals. Electronically Signed: Ghulam Drummond MD at 23:59 EDT , Service support ,
[2019-06-28 14:31] LABS: CREATININE FINGERSTICK 0.7 mg/dL (0.55-1.02); EGFR FINGERSTICK > 60.0000 mL/min (>60)
== END ==
PROVIDERS: Family Provider Family Medicine Geriatric Medicine; PCP Family Medicine Geriatric Medicine; Referring Provider Nurse Practitioner Family; Visit Provider Nurse Practitioner Family
DX: H93.19 Tinnitus, unspecified ear (principal)
CPT/HCPCS: 70553

== ENCOUNTER → 2019-09-21 14:11 | Outpatient (CLI) | payer MEDICARE, OTHER, SELFPAY ==
[2019-04-17 08:30] VITALS: BMI 36.9
--- NOTE | 2019-09-21 14:15 | RAD_ITS ---
STUDY: X-RAY - LUMBAR SPINE REASON FOR EXAM: Female, 69 years old. LOWER BACK PAIN X 4 DAYS, RADIATES DOWN RT LEG TECHNIQUE: 3 view(s) of the lumbar spine were obtained. COMPARISON: None FINDINGS: Normal lumbar lordosis. There is no substantial scoliosis. There is a normal alignment of the vertebrae. There is diffuse demineralization with multi-level endplate spondylosis. There is multi-level degenerative disc disease with multi-level disc space narrowing. There is no demonstrated fracture. The soft tissue structures are unremarkable. RAD/Lumbar Spine 2 or 3 Views IMPRESSION: Degenerative changes of the spine, as detailed above. Electronically Signed: Maxi Hurd MD at 22:05 EST , Service support ,
== END ==
PROVIDERS: Family Provider Family Medicine Geriatric Medicine; PCP Family Medicine Geriatric Medicine; Referring Provider Family Medicine Geriatric Medicine; Visit Provider Family Medicine Geriatric Medicine
DX: M54.5 Low back pain (principal)
CPT/HCPCS: 72100

== ENCOUNTER → 2019-11-15 09:34 | Outpatient (CLI) | payer MEDICARE, OTHER, SELFPAY ==
[2019-10-25 14:54] VITALS: BMI 36.9
[2019-11-15 11:51] LABS: Absolute Lymphocyte Count 0.97 X10^3/uL (0.83-4.51); Absolute Neutrophil Count 3.6 X10^3/uL (2.0-7.7); Basophil# 0.02 X10^3/uL; Basophil% 0.4 % (0-1); Eosinophil# 0.11 X10^3/uL; Eosinophils% 2.1 % (0-5); Hematocrit 41.5 % (37-47); Hemoglobin 13.4 g/dL (12.0-15.0); Lymphocyte # 0.97 X10^3/ul (4.0); Lymphocyte % 18.5 % (19-41); Mean Corp Hgb Conc 32.3 g/dL (32-36); Mean Corpuscular Hgb 29.8 pg (27.0-32.0); Mean Corpuscular Volume 92.4 fL (81-99); Mean Platelet Vol. 9.9 fl (6.2-12.0); Monocyte# 0.52 X10^3/uL; Monocyte% 9.9 % (0-10); NRBC Flagged by Analyzer 0 % (0-5); Neutrophil # 3.61 X10^3/uL (2.7-7.7); Neutrophil % 68.9 % (47-70); Platelet Count 223 K/mm3 (150-450); RBC Distribution Width CV 14.2 % (11.6-14.6); RBC Distribution Width SD 48.3 fl (35.1-43.9); Red Blood Count 4.49 M/mm3 (4.2-5.4); White Blood Count 5.2 K/mm3 (4.4-11.0)
[2019-11-15 12:18] LABS: ALB/GLOB Ratio 0.9 RATIO (0.9-2.4); AST(SGOT) 19 U/L (15-37); Alanine Aminotransfer ALT/SGPT 27 U/L (13-56); Albumin, Serum 3.4 g/dL (3.2-5.0); Alkaline Phosphatase 114 U/L (45-117); Anion Gap 4 (5-15); BUN 16 mg/dL (7-18); BUN/Creat Ratio 16.1 RATIO (10-20); Calcium,Total 8.6 mg/dL (8.5-10.1); Chloride 108 mmol/L (98-107); EST Glomerular Filtration Rate 58 mL/min (>60); Est Glom Filt Rate - Afr Amer 71 mL/min (>60); Globulin 3.6 g/dL (2.2-4.2); Glucose 76 mg/dL (74-106); Sodium Level 140 mmol/L (136-145); Vitamin D,25 Hydroxy 41.6 ng/mL
== END ==
PROVIDERS: PCP Family Medicine Geriatric Medicine; Visit Provider Family Medicine Geriatric Medicine
DX: I10 Essential (primary) hypertension (principal); E55.9 Vitamin D deficiency, unspecified
CPT/HCPCS: 36415; 80053; 82306; 84443; 85025

== ENCOUNTER → 2020-04-01 11:41 | Outpatient (CLI) | payer MEDICARE, OTHER, SELFPAY ==
[2019-10-25 14:54] VITALS: BMI 36.9
--- NOTE | 2020-04-01 11:44 | RAD_ITS ---
STUDY: X-RAY - PELVIS AND LEFT HIP REASON FOR EXAM: Female, 70 years old. LEFT HIP PAIN RADIATING DOWN LEG X SEVERAL MONTHS, NKI TECHNIQUE: 3 views of the pelvis and hip. COMPARISON: None. FINDINGS: There is a non-specific bowel gas pattern. There are atherosclerotic vascular calcifications of the pelvic arteries. Normal bilateral iliac wings, sacroiliac joints and visualized sacrum. Normal bilateral superior and inferior pubic rami. There are degenerative changes of the pubic symphysis with articular narrowing and sclerosis. Normal bilateral ischial tuberosities. Normal visualized femoral head. Normal acetabulum. Normal hip joint. RAD/HIP, UNI W/ Pelvis 2-3 Views IMPRESSION: No acute abnormality is seen. Electronically Signed: Aristides Colin, at 12:01 EDT , Service support ,
== END ==
PROVIDERS: PCP Family Medicine Geriatric Medicine; Referring Provider Anesthesiology Pain Medicine; Visit Provider Anesthesiology Pain Medicine
DX: M25.552 Pain in left hip (principal)
CPT/HCPCS: 73502

== ENCOUNTER → 2020-05-20 11:00 | Outpatient (CLI) | payer MEDICARE, OTHER, SELFPAY ==
[2020-04-26 10:31] VITALS: BMI 38.7
[2020-05-20 12:47] LABS: Absolute Lymphocyte Count 1.13 X10^3/uL (0.83-4.51); Absolute Neutrophil Count 3.4 X10^3/uL (2.0-7.7); Basophil# 0.04 X10^3/uL; Basophil% 0.8 % (0-1); Eosinophil# 0.23 X10^3/uL; Eosinophils% 4.3 % (0-5); Hematocrit 42.4 % (37-47); Hemoglobin 13.3 g/dL (12.0-15.0); Lymphocyte # 1.13 X10^3/ul (4.0); Lymphocyte % 21.2 % (19-41); Mean Corp Hgb Conc 31.4 g/dL (32-36); Mean Corpuscular Hgb 28.6 pg (27.0-32.0); Mean Corpuscular Volume 91.2 fL (81-99); Mean Platelet Vol. 10.3 fl (6.2-12.0); Monocyte% 9.4 % (0-10); NRBC Flagged by Analyzer 0 % (0-5); Neutrophil # 3.42 X10^3/uL (2.7-7.7); Neutrophil % 64.1 % (47-70); Platelet Count 254 K/mm3 (150-450); RBC Distribution Width CV 13.8 % (11.6-14.6); RBC Distribution Width SD 46.2 fl (35.1-43.9); Red Blood Count 4.65 M/mm3 (4.2-5.4); White Blood Count 5.3 K/mm3 (4.4-11.0)
[2020-05-20 13:00] LABS: Vitamin D,25 Hydroxy 54.6 ng/mL
[2020-05-20 13:12] LABS: ALB/GLOB Ratio 0.9 RATIO (0.9-2.4); AST(SGOT) 24 U/L (15-37); Alanine Aminotransfer ALT/SGPT 24 U/L (13-56); Albumin, Serum 3.3 g/dL (3.2-5.0); Alkaline Phosphatase 87 U/L (45-117); Anion Gap 6 (5-15); BUN 20 mg/dL (7-18); BUN/Creat Ratio 19.6 RATIO (10-20); Calcium,Total 8.7 mg/dL (8.5-10.1); Chloride 108 mmol/L (98-107); Creatinine, Serum 1.02 mg/dL (0.55-1.02); EST Glomerular Filtration Rate 57 mL/min (>60); Est Glom Filt Rate - Afr Amer 69 mL/min (>60); Globulin 3.8 g/dL (2.2-4.2); Glucose 84 mg/dL (74-106); Protein, Total 7.1 g/dL (6.4-8.2); Sodium Level 141 mmol/L (136-145); Thyroid Stim Hormone (TSH) 1.39 uIU/mL (0.358-3.74)
== END ==
PROVIDERS: PCP Family Medicine Geriatric Medicine; Visit Provider Family Medicine Geriatric Medicine
DX: I10 Essential (primary) hypertension (principal); E55.9 Vitamin D deficiency, unspecified
CPT/HCPCS: 36415; 80053; 82306; 84443; 85025

== ENCOUNTER → 2020-07-05 17:40 | Outpatient (CLI) | payer MEDICARE, OTHER, SELFPAY ==
[2020-04-26 10:31] VITALS: BMI 38.7
== END ==
PROVIDERS: PCP Family Medicine Geriatric Medicine; Referring Provider Family Medicine Geriatric Medicine; Visit Provider Family Medicine Geriatric Medicine
DX: R06.89 Other abnormalities of breathing (principal)
CPT/HCPCS: 87633; 87635; C9803; U0003

== ENCOUNTER → 2020-08-22 16:12 | Outpatient (CLI) | payer MEDICARE, OTHER, SELFPAY ==
[2020-04-26 10:31] VITALS: BMI 38.7
--- NOTE | 2020-08-22 16:16 | RAD_ITS ---
STUDY: X-RAY - ABDOMEN/PELVIS REASON FOR EXAM: Female, 70 years old. CONSTIPATION, NAUSEA, SWEATING TECHNIQUE: KUB. COMPARISON: 04/01/2020. FINDINGS: Nonobstructive bowel gas pattern. Large stool burden. Atherosclerotic vascular calcification. No organomegaly. Chronic lower thoracic, L1 and L2 compression fractures. Degenerative changes of the lumbar spine. No fracture or dislocation. Joint spaces are well-maintained. RAD/Abdomen Single View IMPRESSION: Large stool burden consistent with constipation. Multiple chronic thoracolumbar compression fractures Electronically Signed: Jyoti Truong MD at 17:54 EST Tel , Service support ,
[2020-08-22 17:38] LABS: Absolute Neutrophil Count 2.7 X10^3/uL (2.0-7.7); Basophil# 0.02 X10^3/uL; Basophil% 0.5 % (0-1); Eosinophil# 0.06 X10^3/uL; Eosinophils% 1.5 % (0-5); Hematocrit 44.2 % (37-47); Hemoglobin 14.2 g/dL (12.0-15.0); Lymphocyte % 20.6 % (19-41); Mean Corp Hgb Conc 32.1 g/dL (32-36); Mean Corpuscular Hgb 28.7 pg (27.0-32.0); Mean Corpuscular Volume 89.3 fL (81-99); Mean Platelet Vol. 9.8 fl (6.2-12.0); Monocyte# 0.29 X10^3/uL; Monocyte% 7.5 % (0-10); NRBC Flagged by Analyzer 0 % (0-5); Neutrophil % 69.6 % (47-70); Platelet Count 236 K/mm3 (150-450); RBC Distribution Width SD 45.2 fl (35.1-43.9); Red Blood Count 4.95 M/mm3 (4.2-5.4); White Blood Count 3.9 K/mm3 (4.4-11.0)
[2020-08-22 18:04] LABS: ALB/GLOB Ratio 0.9 RATIO (0.9-2.4); AST(SGOT) 34 U/L (15-37); Alanine Aminotransfer ALT/SGPT 38 U/L (13-56); Albumin, Serum 3.5 g/dL (3.2-5.0); Alkaline Phosphatase 96 U/L (45-117); Anion Gap 6 (5-15); BUN 15 mg/dL (7-18); BUN/Creat Ratio 15.2 RATIO (10-20); Calcium,Total 8.9 mg/dL (8.5-10.1); Chloride 102 mmol/L (98-107); Creatinine, Serum 0.99 mg/dL (0.55-1.02); EST Glomerular Filtration Rate 59 mL/min (>60); Est Glom Filt Rate - Afr Amer 71 mL/min (>60); Globulin 4.1 g/dL (2.2-4.2); Glucose 98 mg/dL (74-106); Potassium 3.8 mmol/L (3.5-5.1); Protein, Total 7.6 g/dL (6.4-8.2); Sodium Level 139 mmol/L (136-145); Thyroid Stim Hormone (TSH) 1.52 uIU/mL (0.358-3.74)
== END ==
PROVIDERS: PCP Family Medicine Geriatric Medicine; Referring Provider Family Medicine Geriatric Medicine; Visit Provider Family Medicine Geriatric Medicine
DX: K59.00 Constipation, unspecified (principal); I10 Essential (primary) hypertension; N39.0 Urinary tract infection, site not specified
CPT/HCPCS: 36415; 74018; 80053; 84443; 85025; 87086; 87088

== ENCOUNTER → 2020-08-23 | Outpatient (CLI) | payer MEDICARE, OTHER, SELFPAY ==
[2020-04-26 10:31] VITALS: BMI 38.7
== END | disposition home or self-care (01) ==
LOC: LABSPEC 10:26
PROVIDERS: PCP Family Medicine Geriatric Medicine; Referring Provider Family Medicine Geriatric Medicine; Visit Provider Family Medicine Geriatric Medicine
DX: R06.89 Other abnormalities of breathing (principal)
CPT/HCPCS: 87633; 87635; C9803; U0003

== ENCOUNTER 2020-09-16 10:19 | Emergency (ER) | payer MEDICARE, OTHER, SELFPAY ==
[2020-09-09 15:10] VITALS: BMI 37.0
[2020-09-16 10:21] VITALS: BP 152/78; PULSE 80; RESP 17; TEMP 36.1; O2SAT 99; BMI 37.0
[2020-09-16 10:24] VITALS: BP 152/78; PULSE 80; RESP 17; TEMP 36.1; O2SAT 99
--- NOTE | 2020-09-16 10:24 | ED.RN ---
CALL PT'S SON GENNY FOR UPDATES AT [phone].
--- NOTE | 2020-09-16 10:41 | VDLE_ITS ---
Reason For Study: Pain Procedure LEFT This is a venous duplex using B-mode, color GSV is normal. flow and spectral Doppler. CFV is compressible, spontaneous, phasic, Exam performed portable in ED. competent, and demonstrates normal A preliminary report was called and/or faxed augmentation. to [facility]. FV is compressible, spontaneous, phasic, competent and demonstrates normal augmentation. POP V is compressible, spontaneous, phasic, competent and demonstrates normal augmentation. T/P Trunk is compressible. PTV is compressible. LT PerV is compressible. Interpretation Summary There is no evidence of left lower extremity deep vein thrombosis. Left great saphenous vein appears patent and compressible segmentally. Ordering Physician: Jonathon Fontanez Referring Physician: Desmond Riojas Chi Performed By: Layla Conte RVT
--- NOTE | 2020-09-16 10:42 | ED.DCSUM_ITS ---
History of Present Illness Chief Complaint: Weakness Informant: Patient Narrative: 70-year-old female presenting with lower back pain as well as left gluteal pain with radiation into her lateral thigh. She states this is been going on for weeks. She states she has not discussed this with her primary care provider. Patient was previously on Ultram however her PCP took her off of this. Patient states that she was told to only take this when she is having pain. She has not tried this. Patient is ambulatory but with antalgic gait. She was concerned she was going to fall so she used her 's walker today. She denies dizziness or lightheadedness. Patient is on Eliquis currently for history of A. fib. She also has factor V Leiden history of DVT. She states that her leg does not feel swollen. - Past Medical History (1) Essential hypertension Status: Chronic (2) Factor V deficiency Status: Chronic (3) Hyperlipidemia Status: Chronic (4) Paroxysmal atrial fibrillation Status: Chronic Past Medical History - Allergies and Home Meds Allergies/Adverse Reactions: Allergies cefdinir Allergy (Verified 09/16/20 10:21) Unknown diphenhydramine HCl [From Benadryl] Allergy (Verified 09/16/20 10:21) Hives Sulfa (Sulfonamide Antibiotics) Allergy (Verified 09/16/20 10:21) Hives Primary Care Physician: Desmond Riojas Chi, MD [Primary Care Provider] - Prior records reviewed: Yes Past Medical History: - - Reviewed in problem list Surgical History: noncontributory, - - BL TKR, Cholecystectomy, Breast reduction, Hysterectomy. Lives: Spouse/ Significant Other Smoking Status: Never smoker Alcohol: None Drugs: None - Family History Maternal Family History: Family History (Last Reviewed 10/25/19 @ 14:58 by Kylee Verdin) Brother CAD (coronary artery disease) Mother CVA (cerebral vascular accident) CAD (coronary artery disease) Son Hypertension Daughter Hypertension Other Family history of CVA Family history of coronary artery disease Family history of hypertension Family History: Reports: No pertinent history Paternal Family History: Family History (Last Reviewed 10/25/19 @ 14:58 by Kylee Verdin) Brother CAD (coronary artery disease) Mother CVA (cerebral vascular accident) CAD (coronary artery disease) Son Hypertension Daughter Hypertension Other Family history of CVA Family history of coronary artery disease Family history of hypertension Family History: Reports: Cancer, Hypertension Review of Systems General: Denies: Chills, Fever, Sweats Eyes: Denies: Visual changes - bilaterally, Diplopia ENT: Denies: Rhinorrhea, Sore throat Cardiovascular: Denies: Chest pain, Palpitations Respiratory: Denies: Dyspnea, Cough, Dyspnea on exertion Gastrointestinal: Denies: Abdominal pain, Nausea, Vomiting, Diarrhea, Melena, Hematochezia Genitourinary: Denies: Dysuria, Hematuria, Frequency Musculoskeletal: Reports: Back pain - Lumbar, Extremity Pain - Left gluteal and leg pain Skin: Denies: Rash, Wounds Neurological: Denies: Headache, Weakness, Parasthesia, Numbness Physical Exam Vital Signs/Narrative: Vital Signs Temp Pulse Resp BP Pulse Ox 09/16/20 10:24 96.9 F L 80 17 152/78 H 99 09/16/20 10:21 96.9 F L 80 17 152/78 H 99 Inital Vital Signs reviewed: Yes General: Obese, No Acute Distress Head: Normocephalic, Atraumatic Eyes: Perrl, EOMI ENT: Moist mucous membranes, No rhinorrhea Cardiovascular: Regular rate, Regular rhythm Respiratory: No distress, CTA bilaterally Back: - - Left lumbar paraspinal muscular tenderness into the gluteal region as well. No midline spinal deformity or step-off.. Negative for: Spinal tenderness Extremities: Nontender, - - 5/5 bilateral lower extremity strength. Pain elicited with leg raise to approximately 20 degrees on the left. Left gluteal tenderness and lateral thigh tenderness. No calf left tenderness Skin: Normal color, No rash. Negative for: Cyanosis, Diaphoresis, Pallor Neurological: Alert, Oriented x3 Psychological: Normal affect Diagnostic/Tx/Re-eval Clinical Impression(s) from Imaging Studies Lumbar Spine X-Ray 09/16/20 11:00 IMPRESSION: Degenerative changes of the spine, as detailed above. Electronically Signed: Belen Olmos, at 12:04 EST Tel , Service support , - Medical Decision Making Presents with left gluteal pain and left posterior thigh pain. Exam is consistent with sciatica. Patient is anticoagulated as well so I have low suspicion for DVT however given her pain I did ultrasound her lower extremity on the left and this is negative for acute process. There is no DVT present. Patient had x-ray of the lumbar spine as well which is negative for acute process. Patient did have ambulatory difficulty secondary to pain and was given a walker. She was ambulated and did well with stable gait. Patient will be discharged home with a walker to assist her for home. She was initially given Ultram for pain but she states that this does not help the pain significantly. She feels that she can tolerate [place] and she was given a prescription for this. Impression: 1. Sciatica 2. Lumbar strain ED Disposition - Plan for ED Patient: Disposition: Home or Assisted Living Instructions: ED Back Sprain/Strain, ED Sciatica Prescriptions: Hydrocodone Bitart/Apap 5-325 [[place] 5MG-325MG] 1 tab PO Q6H PRN PRN 3 Days #12 tab PRN Reason: Pain Prescription Printed Referrals: Desmond Riojas Chi, MD [Primary Care Provider] -
[2020-09-16] MEDS: traMADol 50 MG Tablet PO (10:49)
--- NOTE | 2020-09-16 11:00 | RAD_ITS ---
STUDY: X-RAY - LUMBAR SPINE REASON FOR EXAM: Female, 70 years old. back pain, NKI TECHNIQUE: 3 view(s) of the lumbar spine were obtained. COMPARISON: None FINDINGS: Normal lumbar lordosis. There is a dextroscoliosis of the lumbar spine the angle measures 9 degrees. There is 7 mm spondylolisthesis at L3-4 due to degenerative changes in the facet joints. There is multilevel endplate spondylosis of the lumbar vertebrae. There is multi-level degenerative disc disease with multi-level disc space narrowing. The soft tissue structures are unremarkable. RAD/Lumbar Spine 2 or 3 Views IMPRESSION: Degenerative changes of the spine, as detailed above. Electronically Signed: Belen Olmos, at 12:04 EST Tel , Service support ,
--- NOTE | 2020-09-16 12:41 | ED.RN ---
walked pt to bathroom with assist of a walker. pt slow but steady
[2020-09-16 12:48] VITALS: BP 150/68; PULSE 78; RESP 18; O2SAT 96
[2020-09-16 13:42] VITALS: BP 140/68; PULSE 82; RESP 18; O2SAT 98
== END 2020-09-16 13:43 | disposition home or self-care (01) ==
PROVIDERS: Emergency Provider Student in an Organized Health Care Education/Training Program; PCP Family Medicine Geriatric Medicine
DX: M54.32 Sciatica, left side (principal); S39.012A Strain of muscle, fascia and tendon of lower back, initial encounter; X58.XXXA Exposure to other specified factors, initial encounter; Y93.9 Activity, unspecified; Y92.9 Unspecified place or not applicable; I10 Essential (primary) hypertension; I48.0 Paroxysmal atrial fibrillation; D68.2 Hereditary deficiency of other clotting factors; E78.5 Hyperlipidemia, unspecified; Z86.718 Personal history of other venous thrombosis and embolism; Z79.01 Long term (current) use of anticoagulants; Z79.899 Other long term (current) drug therapy
CPT/HCPCS: 72100; 93971; 99283

== ENCOUNTER → 2020-09-24 06:37 | Outpatient (CLI) | payer MEDICARE, OTHER, SELFPAY ==
[2020-09-09 15:10] VITALS: BMI 37.0
[2020-09-16 10:21] VITALS: BMI 37.0
--- NOTE | 2020-09-24 06:38 | ECHOD_ITS ---
Reason For Study: Dyspnea/SOB Procedure This was a 2D Doppler, Color Flow transthoracic echocardiogram. The study was technically difficult. Contrast injection was performed. Exam performed in department. Left Ventricle Normal LV size. Left ventricular systolic function is normal. The estimated ejection fraction is 65 %. No evidence for diastolic dysfunction. No regional wall motion abnormalities noted. Right Ventricle Normal RV size. Normal systolic function. Atria The left atrium is mildly enlarged. Normal right atrium. No doppler evidence for ASD. Mitral Valve There is mild mitral annular calcification. Extension of the mitral annular calcification onto the base of the posterior mitral valve leaflet. Mild diffuse mitral valve thickening. Trivial mitral valve insufficiency. Tricuspid Valve Normal tricuspid valve. Trivial tricuspid valve insufficiency. Unable to estimate RV systolic pressure/pulmonary artery pressure due to technically difficult study. Aortic Valve Trisinus/trileaflet aortic valve. Normal aortic valve. Pulmonic Valve The pulmonic valve is not well visualized. Great Vessels The aortic root is not well visualized. Pericardium/Pleural No pericardial effusion. Medication Diluted definity 3ml given slow IV push to enhance endocardial definition. MMode/2D Measurements & Calculations LVIDd: 5.3 cm IVSd: 1.0 cm LA dimension: 4.2 cm LVIDs: 2.9 cm LVPWd: 0.97 cm FS: 45.3 % LAV(MOD-bp): 52.9 ml LA A4 area: 17.7 cm2 RA A4 area: 14.8 cm2 LAV(MOD-bp) Indexed: 26.2 ml/m2 LAV(MOD-sp2): 58.4 ml LAV(MOD-sp4): 43.9 ml Time Measurements MV dec time: 0.27 sec Doppler Measurements & Calculations MV E max dg: 66.8 cm/sec Lat Peak E' Dg: 8.9 cm/sec Med Peak E' Dg: 6.2 cm/sec MV A max dg: 83.4 cm/sec E/E' lat: 7.5 E/E' med: 10.8 MV E/A: 0.80 MV V2 max: 98.1 cm/sec MV P1/2t max dg: 73.2 cm/sec Ao V2 max: 140.1 cm/sec MV max P.9 mmHg MV P1/2t: 77.7 msec Ao max P.8 mmHg MV V2 mean: 48.2 cm/sec MV dec slope: 276.2 cm/sec2 MV mean P.1 mmHg MV V2 VTI: 26.1 cm MVA(P1/2t): 2.8 cm2 LV V1 max: 113.9 cm/sec PA V2 max: 103.0 cm/sec LV V1 max P.2 mmHg Interpretation Summary The study was technically difficult. Contrast injection was performed. Left ventricular systolic function is normal. The estimated ejection fraction is 65 %. The left atrium is mildly enlarged. There is mild mitral annular calcification. Extension of the mitral annular calcification onto the base of the posterior mitral valve leaflet. Mild diffuse mitral valve thickening. Trivial mitral valve insufficiency. Trivial tricuspid valve insufficiency. Unable to estimate RV systolic pressure/pulmonary artery pressure due to technically difficult study. No evidence for diastolic dysfunction. Ordering Physician: Roof, Segundo Referring Physician: Segundo Lyons Performed By: Kevin Liao RCS
--- NOTE | 2020-09-24 08:32 | STRESSREP_ITS ---
Stress Test Report Date: 09-24-2020 Procedure: Pharmacologic stress nuclear imaging study Indications: Shortness of breath/dyspnea on exertion; fatigue Consent: Per the patient Procedure: The patient underwent pharmacologic (Regadenoson) evaluation with a peak heart rate of 100 beats per minute (67%predicted maximal heart rate) and a peak blood pressure of 138/82 mmHg. The baseline ECG demonstrated normal sinus rhythm. The peak pharmacologic ECG demonstrated no obvious ECG changes. There were no cardiac dysrhythmias pretest, during pharmacologic infusion, or recovery. There was no complaint of chest discomfort during pharmacologic infusion or recovery. The examination was discontinued secondary to completion of protocol. Impression: 1. Pharmacologic (Regadenoson) evaluation 2. Peak pharmacologic ECG with no obvious ECG changes. 3. There were no cardiac dysrhythmias pretest, during pharmacologic infusion, or recovery. 4. Nuclear images pending Myocardial perfusion imaging study: Technique: The patient was injected with 14.1 millicuries of technetium 99m Cardiolite and subsequently rest SPECT Cardiolite nuclear imaging was obtained in the horizontal long, vertical long, and short axis views. The patient underwent pharmacologic (Regadenoson) evaluation with a peak heart rate of 100 beats per minute (67% percent predicted maximal heart rate) and a peak blood pressure of 132/82 mmHg. The patient was injected with 44.8 millicuries of technetium 99m Cardiolite and subsequently stress SPECT Cardiolite nuclear imaging was obtained in the horizontal long, vertical long, and short axis views. A gated Cardiolite study at peak stress was obtained. Interpretation: Rest and stress SPECT Cardiolite nuclear imaging status post realignment, normalization, and attenuation correction demonstrate at rest the appearance of a small area of subtle diminished tracer uptake near the distal lateral apical segments which appears to improve/normalize following stress. There is end systolic thickening and brightening. The gated Cardiolite study demonstrates myocardial thickening and inward wall motion. The reported LVEF is 72%. Impression: 1. Rest and stress SPECT current nuclear imaging demonstrate myocardial perfusion changes appearing compatible with shifting soft tissue attenuation/artifact being more prominent at rest as opposed to stress with no myocardial perfusion changes considered diagnostic for associated stress-induced myocardial ischemia. 2. The gated Cardiolite study reports an LVEF of 72%. This note was generated with [employer] software. It may contain incorrect words, spelling, and punctuation that were not noted in checking the note before signing.
== END ==
PROVIDERS: PCP Family Medicine Geriatric Medicine; Referring Provider Nurse Practitioner Family; Visit Provider Nurse Practitioner Family
DX: I48.0 Paroxysmal atrial fibrillation (principal); E78.5 Hyperlipidemia, unspecified; I10 Essential (primary) hypertension; D68.2 Hereditary deficiency of other clotting factors; R06.02 Shortness of breath; R06.00 Dyspnea, unspecified; R53.83 Other fatigue
CPT/HCPCS: 78452; 93017; 93306; A9500; Q9957; A4216; C8929; J2785

== ENCOUNTER → 2020-10-24 09:09 | Outpatient (CLI) | payer MEDICARE, OTHER, SELFPAY ==
[2020-10-03 15:07] VITALS: BMI 37.6
--- NOTE | 2020-10-24 09:15 | BD_ITS ---
STUDY: DUAL ENERGY X-RAY ABSORPTIOMETRY / DXA REASON FOR EXAM: Female, 70 years old. Age of maria elena 55. Pat is 217.2# and 61 and quot; a loss of 3 and quot; per pat. Past use of an albuterol pill. Takes 1000mg of calcium and a multi-vit. Has a diuretic in her BPM. Exercises moderately. TECHNIQUE: Bone Mineral Density (BMD) measurements of lumbar spine and bilateral hips were obtained. COMPARISON: Comparison is made with prior study dated 05/12/2017. FINDINGS: Lumbar Spine (L1-L4): g/cm2 (1.728) / T-score (4.4) / Z-score (6.1) Findings are suggestive of normal bone density with a low fracture risk. Left Femur Total: g/cm2 (0.825) / T-score (-1.5) / Z-score (0.1) Left Femoral Neck: g/cm2 (0.748) / T-score (-2.1) / Z-score (-0.3) Right Femur Total: g/cm2 (0.808) / T-score (-1.6) / Z-score (0.0) Right Femoral Neck: g/cm2 (0.741) / T-score (-2.1) / Z-score (-0.3) The T-Scores on the most recent prior examination were: Lumbar Spine (L1-L4): There has been worsening of bone density since the previous examination. Left Femur Total: which represents a worsening of 7.9%. Right Femur Total: which represents a worsening of 6%. BD/Dexa Bone Density Study IMPRESSION: The patient is considered osteopenic as outlined below according to World Doc Organization (WHO) criteria with a high fracture risk. There has been worsening of bone density since the previous examination. Reference Information: The T-score is the number of standard deviations above or below the standard which is normal for young adults at their peak bone mineral density. The World Health Organization (WHO) interprets the T-scores as follows: Above -1 Normal bone density Between -1 and -2.5 Osteopenia Equal to / or below -2.5 Osteoporosis As a practical clinical guideline, osteopenia may be graded as follows: Mild -1 through -1.5 Moderate -1.6 through -2.0 Severe -2.1 through -2.4 The Z-score is the number of standard deviations above or below age-matched controls. A Z-score of less than -1.5 would be considered abnormal. References: 1. NIH Osteoporosis and Related Bone Diseases www osteo.org 2. International Society for Clinical Densitometry www iscd.org 3. National Osteoporosis Foundation www nof.org Electronically Signed: Aristides Colin MD at 10:19 EST , Service support ,
== END ==
PROVIDERS: PCP Family Medicine Geriatric Medicine; Referring Provider Family Medicine Geriatric Medicine; Visit Provider Family Medicine Geriatric Medicine
DX: M81.0 Age-related osteoporosis without current pathological fracture (principal)
CPT/HCPCS: 77080

== ENCOUNTER 2020-11-13 13:27 | Outpatient (RCR) | payer MEDICARE, OTHER, SELFPAY ==
[2020-10-03 15:07] VITALS: BMI 37.6
== END 2020-11-13 23:59 ==
LOC: IMMUN 13:27
PROVIDERS: PCP Family Medicine Geriatric Medicine; Referring Provider Family Medicine; Visit Provider Family Medicine
DX: Z23 Encounter for immunization (principal)
CPT/HCPCS: 0011A; 0012A; 91301

== ENCOUNTER → 2020-11-18 09:37 | Outpatient (CLI) | payer MEDICARE, OTHER, SELFPAY ==
[2020-11-18 12:39] LABS: Absolute Lymphocyte Count 1.16 X10^3/uL (0.83-4.51); Absolute Neutrophil Count 3.1 X10^3/uL (2.0-7.7); Basophil# 0.03 X10^3/uL; Basophil% 0.6 % (0-1); Eosinophil# 0.29 X10^3/uL; Eosinophils% 5.6 % (0-5); Hematocrit 37.3 % (37-47); Lymphocyte # 1.16 X10^3/ul (4.0); Lymphocyte % 22.5 % (19-41); Mean Corp Hgb Conc 34.9 g/dL (32-36); Mean Corpuscular Volume 94.7 fL (81-99); Mean Platelet Vol. 10.1 fl (6.2-12.0); Monocyte# 0.55 X10^3/uL; Monocyte% 10.7 % (0-10); NRBC Flagged by Analyzer 0 % (0-5); Platelet Count 192 K/mm3 (150-450); RBC Distribution Width CV 18.3 % (11.6-14.6); Red Blood Count 3.94 M/mm3 (4.2-5.4); White Blood Count 5.2 K/mm3 (4.4-11.0)
[2020-11-18 13:00] LABS: Vitamin D,25 Hydroxy 46.1 ng/mL
[2020-11-18 13:12] LABS: ALB/GLOB Ratio 0.9 RATIO (0.9-2.4); AST(SGOT) 22 U/L (15-37); Alanine Aminotransfer ALT/SGPT 30 U/L (13-56); Albumin, Serum 3.1 g/dL (3.2-5.0); Alkaline Phosphatase 86 U/L (45-117); Anion Gap 9 (5-15); BUN 24 mg/dL (7-18); BUN/Creat Ratio 25.1 RATIO (10-20); Calcium,Total 8.8 mg/dL (8.5-10.1); Chloride 107 mmol/L (98-107); Creatinine, Serum 0.96 mg/dL (0.55-1.02); EST Glomerular Filtration Rate 61 mL/min (>60); Est Glom Filt Rate - Afr Amer 74 mL/min (>60); Globulin 3.6 g/dL (2.2-4.2); Glucose 89 mg/dL (74-106); Potassium 3.8 mmol/L (3.5-5.1); Protein, Total 6.7 g/dL (6.4-8.2); Sodium Level 142 mmol/L (136-145); Thyroid Stim Hormone (TSH) 0.78 uIU/mL (0.358-3.74)
== END ==
PROVIDERS: PCP Family Medicine Geriatric Medicine; Visit Provider Family Medicine Geriatric Medicine
DX: I10 Essential (primary) hypertension (principal); E55.9 Vitamin D deficiency, unspecified
CPT/HCPCS: 36415; 80053; 82306; 84443; 85025

== ENCOUNTER → 2020-12-25 16:37 | Outpatient (CLI) | payer MEDICARE, OTHER, SELFPAY ==
--- NOTE | 2020-12-25 16:40 | RAD_ITS ---
HISTORY: BACK PAIN COMPARISON: Previous imaging of the thoracic spine is from February 21, 2013 FINDINGS: # of images incl. paperwork: 2 XR Spine Thoracic 2 Views: Kyphosis is greater. Thoracic vertebral bodies are normal in height. No acute thoracic spine fracture or subluxation. Loss of disc height with endplate sclerosis and small anterior enthesophytes is greater. This disease remains greatest at the L1-L2 and L2-L3 levels, on the bottom of the exam, and is similar to the previous exam. Paraspinous stripe is normal. Descending thoracic aortic margin is normal. RAD/Thoracic Spine 2 Views IMPRESSION: No acute thoracic spine fracture or subluxation. Slight accentuation of thoracic kyphosis. Increased degenerative disc disease at many levels. at 2115 Reported and signed by: Vinicio Lynne MD Electronically Signed: Vinicio Lynne MD at 21:14 EDT Tel , Service support ,
== END ==
PROVIDERS: PCP Family Medicine Geriatric Medicine; Referring Provider Anesthesiology Pain Medicine; Visit Provider Anesthesiology Pain Medicine
DX: M54.9 Dorsalgia, unspecified (principal)
CPT/HCPCS: 72070

== ENCOUNTER 2021-01-31 21:33 | Emergency (ER) | payer MEDICARE, OTHER, SELFPAY ==
[2021-01-31 21:33] VITALS: BP 124/65; PULSE 88; RESP 18; TEMP 36.7; O2SAT 96
[2021-01-31 21:34] VITALS: BP 124/65; PULSE 89; RESP 16; TEMP 36.7; O2SAT 96; BMI 42.3
[2021-01-31] MEDS: Diphth,Pertuss(Acell),Tet Vac 0.5 ML Vial IM (21:55)
--- NOTE | 2021-01-31 21:55 | RAD_ITS ---
STUDY: X-RAY - LEFT TIBIA AND FIBULA REASON FOR EXAM: Female, 70 years old. injury TECHNIQUE: 3 view(s) of the tibia and fibula were obtained. COMPARISON: None. FINDINGS: No acute fracture or dislocation. Postsurgical changes of the left knee. Mild soft tissue swelling and edema RAD/Tibia & Fibula 2 Views IMPRESSION: No acute osseous findings. Soft tissue swelling and edema with laceration Electronically Signed: Varun Moralez DO at 0:47 EDT Tel , Service support ,
[2021-01-31] MEDS: Ondansetron 4 MG/2 ML Vial IM (22:46)
[2021-01-31] MEDS: Morphine 4 MG/ML Syringe IV (22:46)
[2021-01-31] MEDS: Lidocaine 1% (20 ml mdv) 20 ML Vial INFILT (22:54)
[2021-02-01 00:01] VITALS: BP 115/84; PULSE 75; RESP 17; O2SAT 98
--- NOTE | 2021-02-01 00:53 | EDS_ITS ---
HPI History of Present Illness Chief Complaint: Laceration Informant: patient Narrative Narrative: 70-year-old female presenting after fall. Patient states she tripped and fell. She cut her left lower extremity. She is unsure what she cut her leg on. She does not believe she hit her head. She did not lose consciousness. 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 Last tetanus is unknown. Tetanus Immunization: Unknown [facility] Medical History (Updated 02/01/21 @ 00:[address] 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 Long-term use of high-risk medication Obesity, Class III, BMI 40-49.9 (morbid obesity) VALENTIN (obstructive sleep apnea) Paroxysmal atrial fibrillation Traumatic ulcer of left lower extremity Home Medications levocetirizine 5 mg PO DAILY 09/29/13 [History Last Taken 09/29/13] montelukast 10 mg PO DAILY 09/29/13 [History Last Taken 09/28/13] omeprazole 20 mg PO DAILY 09/29/13 [History Last Taken 09/28/13] potassium chloride 20 meq PO BID 09/29/13 [History Last Taken 09/29/13] verapamil 240 mg PO DAILY 09/29/13 [History Last Taken 09/29/13] pravastatin 80 mg tablet 80 mg PO QHS 11/16/17 [History Last Taken Unknown] apixaban 5 mg tablet 5 mg PO BID #180 tab 04/18/19 [Rx Last Taken Unknown] amitriptyline 25 mg tablet 25 mg PO QHS 10/25/19 [History Last Taken Unknown] cholecalciferol (vitamin D3) 10 mcg (400 unit) capsule 400 unit PO DAILY 10/25/19 [History Last Taken Unknown] citalopram 40 mg tablet 80 mg PO QDAY tab 10/25/19 [History Last Taken Unknown] galcanezumab-gnlm 120 mg/mL subcutaneous syringe 120 mg SC QMONTH 10/25/19 [History Last Taken Unknown] multivitamin 1 tab PO DAILY 04/26/20 [History Last Taken Unknown] valsartan 320 mg-hydrochlorothiazide 12.5 mg tablet 1 tab PO DAILY 09/09/20 [History Last Taken Unknown] zolpidem 10 mg tablet 10 mg PO QHS PRN PRN 10/03/20 [History Last Taken Unknown] divalproex [Depakote ER] 500 mg PO DAILY 01/31/21 [History Last Taken Unknown] oxycodone-acetaminophen 1 tab PO Q6H PRN PRN 3 Days #12 tablet 02/01/21 [Rx Last Taken Unknown] Allergy/AdvReac Type Severity Reaction Status Date / Time cefdinir Allergy Unknown Verified 09/16/20 10:21 diphenhydramine HCl Allergy Hives Verified 09/16/20 10:21 [From Benadryl] Sulfa (Sulfonamide Allergy Hives Verified 09/16/20 10:21 Antibiotics) Family History Brother CAD (coronary artery disease) Mother CVA (cerebral vascular accident) CAD (coronary artery disease) Son Hypertension Daughter Hypertension Other Family history of CVA Family history of coronary artery disease Family history of hypertension Surgical History History of bilateral knee replacement History of cholecystectomy History of total hysterectomy Social History (Updated 12/09/20 @ 11:[address] Herlinda Mills DC) Smoking Status: Never smoker alcohol intake: never substance use type: does not use caffeine: Yes Type: tea what type of physical activity do you participate in: none seatbelt use: always do you feel safe at home: Yes ROS ROS ED Constitutional Constitutional ED: Denies fever(s) Eyes Eyes: Denies change in vision Cardiovascular Cardiovascular: Denies chest pain Respiratory/Chest Respiratory/Chest: Denies dyspnea Gastrointestinal Gastrointestinal: Denies abdominal pain Musculoskeletal Musculoskeletal: Reports other Details: Left leg laceration Integumentary Denies rash Neurologic Neurologic: Denies headache(s) EXAM Physical Exam Const Vital Signs: 01/31/21 21:33 01/31/21 21:34 02/01/21 00:01 Temperature 98.0 F 98.0 F Temperature Source Oral Oral Pulse Rate 88 89 75 Respiratory Rate 18 16 17 Blood Pressure 124/65 H 124/65 H 115/84 H Blood Pressure Mean 84 84 94 Pulse Ox 96 96 98 Oxygen Delivery Method Room Air Room Air Room Air Positive well nourished and well developed General Appearance ED: well developed HEENT Reports normocephalic and head/scalp atraumatic atraumatic Eyes PERRL and EOMs intact bilaterally Neck supple Neck Narrative: No midline tenderness General: Negative for tenderness Chest Wall inspection of chest normal Resp normal respiratory effort and clear to auscultation bilaterally Cardio regular rate and regular rhythm GI non-tender and non-distended Palpation: soft; Negative for guarding or rebound tenderness present no CVA tenderness Back/Spine normal to inspection Extremity Extremity Narrative: 11 x 2 cm left lower leg laceration. No active bleeding. Normal distal pulses. Neuro oriented x3 Sensorium / Orientation: alert Motor Exam: strength 5/5 throughout Psych mental status grossly normal PROC Procedures Lacerations Left leg: Length: 4.33 in Depth: Sub Q Prep: Sterile Conditions and Shure-Clens Laceration repair: Irrigated, Lidocaine, Local and Skin sutures Number of Sutures/Celine: 15 Suture Information: Ethilon, Simple, Horizontal and - (3-0) MDM MDM MDM Narrative Medical decision making narrative: She was given Adacel IM. She was given morphine, Zofran IV. Left tib-fib x-ray read by myself and radiology shows no acute findings. Laceration was repaired under sterile conditions. Anesthetized with lidocaine. Irrigated copiously with saline. 5, 3-0 horizontal mattress sutures were placed. 8, 3-0 simple sutures were placed. Patient was advised wound care instructions. Advised to follow-up with primary care physician or the wound clinic. She was given a prescription for Percocet. Advised return to the ED for worsening complaints. Radiography Diagnostic Testing: Radiology Impression Tibia/Fibula X-Ray 01/31/21 21:55 IMPRESSION: No acute osseous findings. Soft tissue swelling and edema with laceration Electronically Signed: Varun Moralez DO at 0:47 EDT Tel , Service support , Discharge Plan Triage Chief Complaint: Laceration ED Provider: Naheed Brooks Dx/Rx/DC Orders Clinical Impression: 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 leg Instructions: ED Laceration: All Closures Prescriptions: New oxycodone-acetaminophen [oxycodone-acetaminophen] 1 TABLET tablet 1 tab PO Q6H PRN PRN (Reason: Pain) 3 Days Qty: 12 RF: 0 No Action citalopram [Celexa] 40 mg tablet 80 mg PO QDAY RF: 0 pravastatin 80 mg tablet 80 mg PO QHS RF: 0 amitriptyline 25 mg tablet 25 mg PO QHS RF: 0 Emgality Syringe 120 mg/mL syringe 120 mg SC QMONTH RF: 0 cholecalciferol (vitamin D3) 400 unit capsule 400 unit PO DAILY RF: 0 multivitamin Tablet 1 tab PO DAILY RF: 0 valsartan-hydrochlorothiazide 320-12.5 mg tablet 1 tab PO DAILY RF: 0 potassium chloride 20 MEQ tablet 20 meq PO BID RF: 0 omeprazole 20 MG capsule 20 mg PO DAILY RF: 0 montelukast 10 MG tablet 10 mg PO DAILY RF: 0 verapamil 240 MG capsule,ext rel. pellets 24 hr 240 mg PO DAILY RF: 0 levocetirizine 5 MG tablet 5 mg PO DAILY RF: 0 zolpidem 10 mg tablet 10 mg PO QHS PRN PRN (Reason: Sleep) RF: 0 divalproex [Depakote ER] 500 mg Tablet Extended Release 24 Hr 500 mg PO DAILY RF: 0 apixaban 5 mg tablet 5 mg PO BID Qty: 180 RF: 3 Primary Care Provider: Desmond Riojas Chi Referrals: Desmond Riojas Chi, MD [Primary Care Provider] - Disposition Disposition: Home, self care
[2021-02-01 00:57] VITALS: BP 117/60; PULSE 79; RESP 17; TEMP 36.6; O2SAT 97
== END 2021-02-01 01:28 | disposition home or self-care (01) ==
PROVIDERS: Emergency Provider Emergency Medicine; PCP Family Medicine Geriatric Medicine
DX: S81.812A Laceration without foreign body, left lower leg, initial encounter (principal); W01.0XXA Fall on same level from slipping, tripping and stumbling without subsequent striking against object, initial encounter; Y93.9 Activity, unspecified; Y92.9 Unspecified place or not applicable; E66.01 Morbid (severe) obesity due to excess calories; Z68.41 Body mass index [BMI] 40.0-44.9, adult; E78.5 Hyperlipidemia, unspecified; G47.33 Obstructive sleep apnea (adult) (pediatric); I12.9 Hypertensive chronic kidney disease with stage 1 through stage 4 chronic kidney disease, or unspecified chronic kidney disease; N18.9 Chronic kidney disease, unspecified; D68.2 Hereditary deficiency of other clotting factors; I48.0 Paroxysmal atrial fibrillation; Z86.718 Personal history of other venous thrombosis and embolism; Z79.01 Long term (current) use of anticoagulants; Z79.899 Other long term (current) drug therapy
CPT/HCPCS: 12004; 73590; 90715; 96372; 96374; 99285; A4216; J2405

== ENCOUNTER → 2021-02-06 | Outpatient (CLI) | payer MEDICARE, OTHER, SELFPAY ==
[2021-01-31 21:34] VITALS: BMI 42.3
[2021-02-06 18:33] LABS: M R Staph aureus DNA By PCR Negative (Negative); Probe Check PASS; Specimen Processing Control PASS; Staph aureus DNA By PCR NEGATIVE (Negative)
== END | disposition home or self-care (01) ==
LOC: POLAB3 16:38 → LABSPEC 16:40
PROVIDERS: PCP Family Medicine Geriatric Medicine; Visit Provider Family Medicine Geriatric Medicine
DX: T07.XXXA Unspecified multiple injuries, initial encounter (principal); B95.62 Methicillin resistant Staphylococcus aureus infection as the cause of diseases classified elsewhere
CPT/HCPCS: 87070; 87205; 87640

== ENCOUNTER 2021-02-13 10:45 | Outpatient (RCR) | payer MEDICARE, OTHER, SELFPAY ==
[2021-02-13 11:01] VITALS: BP 109/49; PULSE 78; RESP 18; TEMP 36.9; BMI 42.3
== END 2021-02-17 23:59 ==
LOC: WC 10:45
PROVIDERS: PCP Family Medicine Geriatric Medicine; Visit Provider Surgery
DX: Z09 Encounter for follow-up examination after completed treatment for conditions other than malignant neoplasm (principal)

== ENCOUNTER 2021-02-18 20:36 | Inpatient (IN) | payer MEDICARE, OTHER, SELFPAY ==
[2021-02-13 13:37] VITALS: BMI 40.4
--- NOTE | 2021-02-17 22:39 | HP.PCM_ITS ---
History and Physical Date of Admission: 02/18/21 HISTORY OF PRESENT ILLNESS 70 YEAR OLD WOMAN PRESENTS WITH A TRAUMATIC INFECTED HEMATOMA LEFT ANTEROLATERAL LEG WITH ASSOCIATED SKIN NECROSIS THAT SHE SUSTAINED ON JANUARY 31, 2021 WHEN SHE FELL AT HOME. ? SHE IS ON ELIQUIS FOR FACTOR V DEFICIENCY.? SHE WENT TO THE ED WHERE THE LACERATION WAS CLEANSED AND SUTURED CLOSED.? X-RAY IN THE ED WAS NEGATIVE FOR FRACTURE OR DISLOCATION.? SHE FOLLOWED UP WITH HER PCP WHO NOTED SOME SLIGHT WOUND SEPARATION AFTER REMOVING SOME SUTURES.? THE LEG WAS WRAPPED WITH GAUZE AND A COMPRESSION NIA WRAP.? SOME REDNESS WAS NOTED SUPERIORLY AND SHE WAS STARTED ON DOXYCYCLINE AND CLINDAMYCIN.? ALSO SOME SKIN NECROSIS WAS SEEN MEDIALLY.? I WAS ASKED TO EVALUATE THIS PATIENT FOR SURGICAL OPTIONS FOR TREATMENT.? SHE DENIES FEVER. PAST MEDICAL HISTORY Anxiety Arthritis Atrial fibrillation Cataracts Cellulitis of left lower leg CKD (chronic kidney disease) CPAP (continuous positive airway pressure) dependence Depression DVT (deep venous thrombosis) Essential hypertension Factor V deficiency Fall as cause of accidental injury at home as place of occurrence Fall due to ice or snow Gastric reflux Head injury without concussion or intracranial hemorrhage Hematoma of left lower extremity High cholesterol Hyperlipidemia Injury of back Injury of head and neck 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 lower leg with complication Long-term use of high-risk medication Migraine headache Non-smoker Obesity, Class III, BMI 40-49.9 (morbid obesity) VALENTIN (obstructive sleep apnea) Skin necrosis Syncope Traumatic ulcer of left lower extremity Walker as ambulation aid Wears glasses Wears hearing aid PAST SURGICAL HISTORY bilateral knee replacement cholecystectomy total hysterectomy cataract extraction ALLERGIES cefdinir Allergy diphenhydramine HCl [From Benadryl] Sulfa (Sulfonamide Antibiotics) MEDICATIONS levocetirizine montelukast omeprazole potassium chloride verapamil pravastatin apixaban amitriptyline cholecalciferol (vitamin D3) citalopram galcanezumab-gnlm multivitamin valsartan-hydrochlorothiazide zolpidem divalproex [Depakote ER] doxycycline monohydrate FAMILY HISTORY Brother - CAD (coronary artery disease) Mother - CVA (cerebral vascular accident, CAD (coronary artery disease) Son - Hypertension Daughter - Hypertension Other - Arthritis, Cancer, Diabetes, Heart disease, High cholesterol, Kidney disease, Thyroid disorder SOCIAL HISTORY Smoking Status:? Never smoker alcohol intake:? never substance use type:? does not use REVIEW OF SYSTEMS General - Denies fever and weight loss.? Has some fatigue. Eyes - Has cataracts.? Denies glaucoma. ENT - Denies nasal congestion and sore throat. Endocrine - Denies excessive thirst and urination. Skin - Denies skin cancer.? Has traumatic infected necrotic hematoma left anterolateral leg. Musculoskeletal - Has joint pain, joint stiffness, and back pain.? Denies weakness of muscles and joints, and arthritis. Neuro - Has headaches.? Has lightheadedness. Cardiovascular - Denies chest pain and shortness of breath with exertion.? Has fatigue and lightheadedness. Psych - Denies anxiety.? Has depression. Respiratory - Denies chronic cough and shortness of breath.? Has sleep apnea. Gastrointestinal - Denies nausea, vomiting, diarrhea, and constipation. Hematologic - Denies abnormal bruising and bleeding. Genitourinary - Denies hematuria and urinary frequency. ? PHYSICAL EXAMINATION General - Alert and Oriented. HEENT - PERRL. EOMI.? Throat is clear. Neck - Supple and nontender.? No cervical adenopathy. Lungs - Clear to auscultation. Heart - Regular rate and rhythm. Abdomen - Soft and nondistended. Extremities - FROM. No axillary adenopathy.? Radial pulses are palpable.? No inguinal adenopathy.? Dorsalis pedis pulses are palpable. On the left anterolateral leg there is a traumatic hematoma with associated laceration with superficial wound separation.? Some tenderness to palpation.? The laceration measures 11 cm.? On the medial aspect is an area of skin necrosis that measures 2 cm.? Superiorly to the laceration is palpable hematoma with? associated cellulitis.? The redness measures 4 cm. ? No fluctuance.? No purulent drainage.? Some surrounding swelling probably from the nia wrap compression being too tight. Neuro - CN II-XII grossly intact. Psych - Normal mood and affect. ASSESSMENT 1.? Traumatic infected hematoma laceration left anterolateral leg with associated skin necrosis. 2.? Cellulitis left leg. 3.? Fall at home. 4.? Factor V deficiency. PLAN X-ray reviewed.? No fracture or dislocation seen. Patient is finishing her antibiotics with Doxycycline and Clindamycin.? Will continue Doxycycline until her surgery. With the overlying skin necrosis and the beginning of cellulitis, it is recommended to proceed with operative intervention with surgical preparation with incision and drainage and evacuation and excisional debridement traumatic infected necrotic hematoma left anterolateral leg. Will leave the wound open and begin postoperative wound care with the VAC or with daily Dakin's dressing changes.? At the time of surgery, will send tissue to Pathology for analysis to rule out carcinoma and to Microbiology for culture.? A positive culture will necessitate antibiotic therapy. Surgery will be done under local anesthesia and IV sedation with a surgical observation overnight stay in the hospital.? Will schedule for first part of next week.? She doesn't want surgery tomorrow because she doesn't want to be in the hospital over the holiday weekend.? She understands that if she develops a fever over the weekend to come back to the ED for evaluation and admission and to start IV antibiotics until her surgery. After discharge, she will followup at the [facility].? If there is a plateau in the healing process, can proceed with delayed closure with skin grafting. Patient was informed of the risks and complications of the procedure including alternatives to surgery.? These were discussed with the patient personally.? Patient voices understanding and wishes to proceed. Some of the risks and complications were included in a form from the [employer]. We discussed the current risks associated with COVID-19. While it is understood that there is a community spread of COVID-19, the risk of cathy COVID-19 while at [facility] ([facility]) is very low; however, the risk cannot be completely mitigated because of the community spread of the disease. We discussed in detail the risk of exposure to and/or potential harm posed by the COVID-19 virus with having a surgery/procedure at this time versus the risk of delaying the surgery/procedure. It is not possible to know either the risk of delaying the surgery or procedure or chance of getting an infection with perfect accuracy, but a joint decision was made to proceed at this time with the scheduled surgery/procedure as indicated on the consent form. Patient was notified that we will need to comply with any screening or testing [facility] wishes to perform or that surgery may be delayed for any positive results. Discussed with the patient that I was tested for COVID-19 on 03/21/20 which was negative and on 04/04/20 which was negative and on 04/18/20 which was negative and on 05/02/20 which was negative and on 05/16/20 which was negative and on 06/06/20 which was negative and on 06/27/20 which was negative and on 08/01/20 which was negative and on 08/22/20 which was negative and on 09/10/20 which was negative. ? My testing regimen at this time is to be COVID-19 tested every 2 weeks or so.? I received the COVID-19 vaccine (Moderna) on 09/18/20 and the second vaccine dose was received on 10/16/20.? When I was hospitalized on 11/18/20 I was tested for COVID-19 which was negative.? I was also? tested for COVID-19 on 12/03/20 which was negative and on 12/30/20 which was negative. Procedure Criteria Procedure Type:?Elective COVID Risk Discussion: The surgeon/proceduralist and patient have discussed in detail the risk of exposure to and/or potential harm posed by the COVID-19 virus with having a surgery/procedure at this time versus the risk of delaying the surgery/procedure.? It is not possible to know either the risk of delaying the surgery or procedure or chance of getting an infection with perfect accuracy, but a joint decision was made between the patient and the surgeon/proceduralist to proceed at this time with the scheduled surgery/procedure as indicated on the consent form.
[2021-02-18] VITALS (15 sets, daily range): BP systolic 82–148; BP diastolic 39–71; PULSE 71–85; RESP 16–18; TEMP 36.1–36.7; O2SAT 84–100; BMI 37.5
--- NOTE | 2021-02-18 12:55 | TISS_PTH ---
PATIENT: DIONTE BRADFORD LOC: MS3 U#:[id number] AGE/SX: 71/F ROOM: OK317 RE02/19/[address]: Dr. Giuliano Will MD : [id number] BED: 1 DIS: 02/21/2021 SPEC #: [id number] RECD: 02/18/21 15:45 STATUS: AIDE MINERVA #: [id number] NASRIN: 02/18/21 12:[address]: Anant Kent DEPT: SURGICAL PATHOLOGY RECD BY: Patricia Cabrera ENTERED: 02/19/21 11:11 SP TYPE: Tissue Bx ELIUD DR: Dr. Desmond Riojas MD Tissues: TISSUE SURGICALLY REMOVED Procedures: Surgery Specimen Level IV HEADER OPERATION: Surgical prep anterior lateral leg with incision and drainage PRE-OP DIAGNOSIS: Traumatic infected hematoma laceration left anterolateral leg with associated skin necrosis, cellulitis left leg TISSUE SUBMITTED: Debrided left leg hematoma MICROSCOPIC DIAGNOSIS Hematoma of left leg, removal: Skin with underlying soft tissue containing hematoma, fat necrosis and dystrophic microcalcifications. Focal cutaneous ulceration with acute and chronic inflammation. AM:kate 02/20/2021 MICROSCOPIC DESCRIPTION Slides are reviewed. GROSS DESCRIPTION Received in fixative is one container labeled with the patient's name and designated debrided left leg hematoma. The specimen consists of two pieces of skin with underlying tissue that in aggregate measure 12 x 9 cm and up to 2.5 cm in thickness. A smaller piece of soft tissue is also noted measuring 4.5 x 1.5 x 0.4 cm. Sections do not reveal any mass lesion and reveals a focal area of hemorrhagic cut surfaces. Barrel Cap Setter sections are submitted in two cassettes. / SJ:kate 02/19/21 TC:2 CPT: 08642
[2021-02-18] MEDS: Lactated Ringers 1,000 ML 100 ML IV ×3 (12:56→22:33)
[2021-02-18] MEDS: Lidocaine 1% /Epi 1:100 (20ml) 20 ML Vial (13:56)
--- NOTE | 2021-02-18 15:58 | OP.PCM_ITS ---
Report of Operation Date of Procedure: 02/18/21 Pre-Operative Diagnosis: 1. Traumatic infected hematoma laceration left angela lateral leg with associated skin necrosis. 2. Cellulitis left leg. 3. Fall at home. 4. Factor V deficiency. Post-Operative Diagnosis: Same. Surgery/Procedure Performed:: Surgical preparation left anterolateral leg with incision and drainage and evacuation traumatic infected hematoma and excisional debridement skin necrosis (156 cm2). Description of Surgical Findings:: 70 YEAR OLD WOMAN PRESENTS WITH A TRAUMATIC INFECTED HEMATOMA LEFT ANTEROLATERAL LEG WITH ASSOCIATED SKIN NECROSIS THAT SHE SUSTAINED ON JANUARY 31, 2021 WHEN SHE FELL AT HOME. SHE IS ON ELIQUIS FOR FACTOR V DEFICIENCY. SHE WENT TO THE ED WHERE THE LACERATION WAS CLEANSED AND SUTURED CLOSED. X-RAY IN THE ED WAS NEGATIVE FOR FRACTURE OR DISLOCATION. SHE FOLLOWED UP WITH HER PCP WHO NOTED SOME SLIGHT WOUND SEPARATION AFTER REMOVING SOME SUTURES. THE LEG WAS WRAPPED WITH GAUZE AND A COMPRESSION NIA WRAP. SOME REDNESS WAS NOTED SUPERIORLY AND SHE WAS STARTED ON DOXYCYCLINE AND CLINDAMYCIN. ALSO SOME SKIN NECROSIS WAS SEEN MEDIALLY. I WAS ASKED TO EVALUATE THIS PATIENT FOR SURGICAL OPTIONS FOR TREATMENT. SHE DENIES FEVER. Patient was informed of the risks and complications of the procedure including alternatives to surgery. These were discussed with the patient personally. Patient voices understanding and wishes to proceed. Some of the risks and complications were included in a form from the [employer]. Size of defect left anterolateral leg - 13 x 12 x 2.5 cm. 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 Drains: None. Estimated Blood Loss (mL): 50 . Description of Procedure: Patient was taken to OR in supine position and was placed under general anesthesia. The left leg was prepped and draped in the usual fashion. SCD's were placed on the right leg for DVT prophylaxis. Perioperative antibiotics were given intravenously. The traumatic hematoma left anterolateral leg was infiltrated with xylocaine and epinephrine. After waiting 5 minutes for the anesthetic to take effect, I proceeded with an incision and drainage of the hematoma around the necrotic skin. No gross pus was seen but there was some liquefaction of the large hematoma with associated odor signifying an infection. The infected hematoma extended to the underlying muscle and fascia and was adherent. The fascia was inflamed yet viable. Some of the fascia was excised and debrided. No necrotizing process was seen. The underlying visible muscle appeared viable. The overlying necrotic skin as well as associated fat necrosis surrounding the infected hematoma was excised and debrided. Hemostasis was obtained with electrocautery. The wound was irrigated with saline. The amount of the hematoma combined with the amount of blood loss from the surgery equaled 50 ml. The size of the defect left anterolateral leg after incision and drainage and evacuation and excisional debridement of this traumatic necrotic infected hematoma was 13 x 12 x 2.5 cm or 156 cm2. Tissue that was removed was sent to Pathology for analysis to rule out carcinoma and to Microbiology for culture. A positive culture will necessitate antibiotic therapy. The wound was dressed with Mepitel nonadherent dressing followed by Kerlix gauze and Betadine followed by dry Kerlix gauze and ABD pads and a compression NIA wrap. Patient tolerated the procedure well and was sent to PACU in satisfactory condition. Patient will be sent upstairs for continued postop care. The NPWT device may be applied tomorrow. After discharge she will followup at the [facility] Center. If there is a plateau in the healing process, she may proceed with delayed closure with skin grafting. She will keep her left leg elevated when sitting. She will minimize standing postoperatively. Grafts/Implants Used: None. Complications None. Admit VTE Documentation VTE Present on Admission: No (Patient has Factor V deficiency and is on Eliquis.) VTE Mechan Device Prophylaxis: SCD's VTE Pharm Prophylaxis ordered?: Yes Addendum Addendum: Surgical Charges CPT - 34318 ICD-10 - S81.802A, S80.12xA, I96, L03.116, S81.812A, W19.xxxA 52955 S81.802A, S80.12xA, I96, L03.116, S81.812A, W19.xxxA 60413 S80.12xA, I96, L03.116, S81.802A, S81.812A, W19.xxxA
--- NOTE | 2021-02-18 16:00 | SUR.PHASEI ---
Holding patient in PACU. Awaiting orders from Dr. Kent to admit patient to third floor. Patient's VSS.
[2021-02-18] MEDS: Potassium Chloride Oral Tablet 20 MEQ PO (17:49)
[2021-02-18] MEDS: oxyCODONE 5 MG Tablet 10 MG PO (18:18)
[2021-02-18] MEDS: Docusate Sodium 100 MG Capsule PO (21:40)
[2021-02-18] MEDS: APIXABAN 5 MG TABLET PO (21:40)
[2021-02-18] MEDS: Pravastatin 80 MG Tablet PO (21:41)
[2021-02-18] MEDS: Divalproex (ER) 500 MG Tablet PO (21:42)
[2021-02-18] MEDS: Amitriptyline 25 MG Tablet PO (21:42)
[2021-02-18] MEDS: Lactated Ringers 250 ML 999 ML IV (22:10)
[2021-02-18] MEDS: Acetaminophen 500 MG Tablet PO (22:10)
[2021-02-18] MEDS: Nystatin Powder 15gm Bottle 1 APPLIC TOPICAL (22:36)
[2021-02-19] VITALS (12 sets, daily range): BP systolic 90–113; BP diastolic 47–59; PULSE 70–89; RESP 16–18; TEMP 36.7–37.4; O2SAT 79–98
[2021-02-19] MEDS: oxyCODONE 5 MG Tablet 10 MG PO ×4 (00:38→20:29)
[2021-02-19 07:26] LABS: Hematocrit 31.9 % (37-47); Hemoglobin 10.1 g/dL (12.0-15.0); Mean Corp Hgb Conc 31.7 g/dL (32-36); Mean Corpuscular Hgb 29.6 pg (27.0-32.0); Mean Corpuscular Volume 93.5 fL (81-99); Mean Platelet Vol. 9.5 fl (6.2-12.0); Platelet Count 223 K/mm3 (150-450); RBC Distribution Width CV 14.7 % (11.6-14.6); RBC Distribution Width SD 51.2 fl (35.1-43.9); Red Blood Count 3.41 M/mm3 (4.2-5.4); White Blood Count 5.5 K/mm3 (4.4-11.0)
[2021-02-19 08:06] LABS: Anion Gap 3 (5-15); BUN 33 mg/dL (7-18); BUN/Creat Ratio 24.4 RATIO (10-20); Calcium,Total 8.4 mg/dL (8.5-10.1); Chloride 103 mmol/L (98-107); Creatinine, Serum 1.35 mg/dL (0.55-1.02); EST Glomerular Filtration Rate 41 mL/min (>60); Est Glom Filt Rate - Afr Amer 49 mL/min (>60); Estimated Creatinine Clearance 32.53 ml/min; Glucose 97 mg/dL (74-106); Potassium 4.8 mmol/L (3.5-5.1); Prealbumin 15.9 mg/dL (20.0-40.0); Sodium Level 135 mmol/L (136-145)
[2021-02-19] MEDS: Potassium Chloride Oral Tablet 20 MEQ PO ×2 (08:36→16:44)
[2021-02-19] MEDS: Lactated Ringers 1,000 ML 100 ML IV (08:38)
[2021-02-19] MEDS: 0.9% Saline Lock 10 ML Syringe IV (08:45)
[2021-02-19] MEDS: HYDROmorphone 1 MG/ML Syringe IV (08:45)
[2021-02-19] MEDS: Multivitamins,Therapeutic Tablet 1 TABLET PO (08:45)
--- NOTE | 2021-02-19 10:03 | NURSING ---
wound photo: left lower leg
[2021-02-19] MEDS: APIXABAN 5 MG TABLET PO ×2 (10:13→22:32)
[2021-02-19] MEDS: Montelukast 10 MG Tablet PO (10:13)
[2021-02-19] MEDS: Pantoprazole Sodium 20 MG Tablet PO (10:13)
[2021-02-19] MEDS: Verapamil SR 240 MG Tablet PO (10:13)
[2021-02-19] MEDS: Losartan Potassium 100 MG Tablet PO (10:13)
[2021-02-19] MEDS: Nystatin Powder 15gm Bottle 1 APPLIC TOPICAL ×2 (10:13→22:33)
[2021-02-19] MEDS: Citalopram 40 MG TABLET PO (10:13)
[2021-02-19] MEDS: Docusate Sodium 100 MG Capsule PO ×2 (10:13→22:31)
[2021-02-19] MEDS: hydroCHLOROthiazide 12.5mg 12.5 MG PO (10:13)
[2021-02-19] MEDS: CETIRIZINE HCL 10 MG TABLET PO (10:13)
--- NOTE | 2021-02-19 10:26 | CASEMGMT ---
RN CM in to discuss discharge planning with patient. Patient will need HHC for wound vac changes. Patient was provided a list of HHC providers including quality and resource use data and consistent with the patient?s preferred geographic region, medical needs, and insurance network. Patient to review list and provide choices.
--- NOTE | 2021-02-19 12:12 | PCM.PN.HOSP ---
Subjective Subjective Patient is a 71-year-old lady who was admitted by Dr. Kent on account of traumatic infected hematoma, following laceration involving the left anterior leg with associated skin necrosis. Patient underwent incision and drainage with evacuation of traumatic infected hematoma and excisional debridement of skin necrosis. Subsequently admitted to [facility] floor. The hospitalist service was consulted following deterioration in patient's kidney function Objective Data Objective Data Vital Signs: Vital Signs Temp Pulse Resp BP Pulse Ox 98.6 F 85 18 90/48 L 95 02/19/21 10:09 02/19/21 10:09 02/19/21 10:09 02/19/21 10:02/19/21 10:09 Oxygen Flow Rate (L/min) 2 Oxygen Delivery Method Nasal Cannula Weight: 99.2 kg Body Mass Index (BMI) 37.5 Intake & Output: Intake and Output for Last 24 Hours 02/17/21 02/18/21 02/19/21 23:59 23:59 23:59 Intake Total 1760 / 1760 2354 / 2354 Output Total 100 / 100 350 / 350 Balance 1660 / 1660 2003 Lab / Micro Data Result Diagrams: 02/19/21 06:50 02/19/21 06:50 Labs: Laboratory Results - last 24 hr 02/19/21 02/19/21 06:50 06:50 WBC 5.5 RBC 3.41 L Hgb 10.1 L Hct 31.9 L MCV 93.5 MCH 29.6 MCHC 31.7 L RDW Std Deviation 51.2 H RDW Coeff of Shannon 14.7 H Plt Count 223 MPV 9.5 Sodium 135 L Potassium 4.8 Chloride 103 Carbon Dioxide 29.0 Anion Gap 3 L BUN 33 H Creatinine 1.35 H Estim Creat Clear Calc 32.53 Est GFR (MDRD) Af Amer 49 L Est GFR (MDRD) Non-Af 41 L BUN/Creatinine Ratio 24.4 H Glucose 97 Calcium 8.4 L Prealbumin 15.9 L Micro: Microbiology 02/18/21 14:30 Tissue - Leg Gram Stain - Final 02/18/21 14:30 Tissue - Leg Wound Culture - Preliminary GNR Poss Pseudomonas sp 02/18/21 14:30 Tissue - Leg Anaerobic Culture - Preliminary No anaerobic bacteria isolated. Physical Exam Narrative GENERAL: cooperative HEENT: Atraumatic; EYES; Anicteric, Normal Conjunctiva NECK; supple, normal thyroid, RESPIRATORY: Diminished to auscultation CARDIOVASCULAR: Regular S1 S2, GI: soft, normoactive bowel sounds, : No Renal angle tenderness; EXTREMITIES: Left lower extremity in surgical dressing pictures from surgery reviewed MUSCULOSKELETAL: no muscle waisting NEURO: Awake; no lateralizing signs. SKIN: No Rash PSYCH; Flat affect Assessment & Plan Assessment/Plan (1) Fall as cause of accidental injury at home as place of occurrence: (2) Cellulitis of left lower leg: (3) Skin necrosis: (4) 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 lower leg with complication: (5) Hematoma of left lower extremity: (6) Essential hypertension: (7) Paroxysmal atrial fibrillation: (8) Hyperlipidemia: QUALIFIERS: Hyperlipidemia type: unspecified Qualified Code(s): E78.5 - Hyperlipidemia, unspecified (9) Factor V deficiency: (10) Acute renal insufficiency: PLAN: Patient is a 71-year-old lady who was admitted by Dr. Kent on account of traumatic infected hematoma, following laceration involving the left anterior leg with associated skin necrosis. Patient underwent incision and drainage with evacuation of traumatic infected hematoma and excisional debridement of skin necrosis. Subsequently admitted to [facility]. 1. Traumatic infected hematoma - following laceration involving the left anterior leg with associated skin necrosis. Patient underwent incision and drainage with evacuation of traumatic infected hematoma and excisional debridement of skin necrosis by Dr. Albright on 02/18/2021 subsequently admitted to [facility].. Cultures obtained so far positive for possible Pseudomonas species. Patient currently on clindamycin as well as Levaquin 2. Acute renal insufficiency ?Patient is on valsartan HCTZ, the HCTZ component held resuscitated with IV fluids with subsequent monitoring of electrolyte 3. Dyslipidemia -Patient is on statin therapy, continued at home dose 4. Factor V Leyden mutation ?Patient is on systemic anticoagulation with apixaban 5. Paroxysmal A. fib ?Rate controlled on systemic anticoagulation with apixaban 6. Morbid obesity - With a BMI of 37.5 patient was counseled on weight reduction 7. Obstructive sleep apnea ?Patient is on CPAP at night 8. Hypertension - Blood pressure controlled, on the low side antihypertensives held 9. DVT prophylaxis ?On apixaban Advance planning; did discuss with the patient and family (patient's son) regarding advanced directives as well as CODE STATUS. Did explain the various scenarios involved ( FULL CODE, DNR CCA, DNR CCA with no intubation, and DNR CC and what each meant) patient elected to full code with CPR and intubation if warranted. Order was placed. Time spent on discussion 18 minutes. Visit Charges Inpatient E&M: 49817 Init Hosp L3 Procedures Hospitalists Procedures: 85444 Advncd Care Plan 30 Min
--- NOTE | 2021-02-19 13:33 | CASEMGMT ---
RN CM received call back from [facility] that they are able to accept the patient. RN CM updated patient regarding acceptance.
--- NOTE | 2021-02-19 14:34 | PCM.PN.SRG ---
Subjective Subjective Postop #1 Patient is resting comfortably. She tolerated the placement of the VAC reasonably well. Objective Data Objective Data Vital Signs: Vital Signs Temp Pulse Resp BP Pulse Ox 98.1 F 84 16 93/53 L 79 02/19/21 12:10 02/19/21 12:10 02/19/21 12:10 02/19/21 12:10 02/19/21 14:14 Oxygen Flow Rate (L/min) 4 Oxygen Delivery Method Nasal Cannula Weight: 218 lb 11.177 oz Body Mass Index (BMI) 37.5 Intake & Output: Intake and Output for Last 24 Hours 02/17/21 02/18/21 02/19/21 23:59 23:59 23:59 Intake Total 1760 / 1760 2604 / 2604 Output Total 100 / 100 575 / 575 Balance 1660 / 1660 2028 Lab / Micro Data Attestation: I reviewed the patient's lab results. Lab results narrative: Patient's BUN/Creat have increased to 33/1.5. In 12/08 the Creatinine was 0.96. Will obtain Hospitalist consultation. Preliminary wound culture shows Gram negative celina, possible Pseudomonas. Will stop the Cleocin and begin Levaquin. Result Diagrams: 02/20/21 05:25 02/20/21 05:25 Labs: Laboratory Results - last 24 hr 02/19/21 02/19/21 06:50 06:50 WBC 5.5 RBC 3.41 L Hgb 10.1 L Hct 31.9 L MCV 93.5 MCH 29.6 MCHC 31.7 L RDW Std Deviation 51.2 H RDW Coeff of Shannon 14.7 H Plt Count 223 MPV 9.5 Sodium 135 L Potassium 4.8 Chloride 103 Carbon Dioxide 29.0 Anion Gap 3 L BUN 33 H Creatinine 1.35 H Estim Creat Clear Calc 32.53 Est GFR (MDRD) Af Amer 49 L Est GFR (MDRD) Non-Af 41 L BUN/Creatinine Ratio 24.4 H Glucose 97 Calcium 8.4 L Prealbumin 15.9 L Micro: Microbiology 02/18/21 14:30 Tissue - Leg Gram Stain - Final 02/18/21 14:30 Tissue - Leg Wound Culture - Preliminary GNR Poss Pseudomonas sp 02/18/21 14:30 Tissue - Leg Anaerobic Culture - Preliminary No anaerobic bacteria isolated. Physical Exam Const alert and oriented x3 HEENT moist oral mucous membranes HEENT Narrative: PERRL. EOMI. Neck no lymphadenopathy and supple Neck Narrative: nontender. GI soft to palpation and non-distended Extremity Extremity Narrative: mild swelling noted left leg in the area of the hematoma wound. dorsalis pedis pulses are palpable. no inguinal adenopathy. Skin Skin Narrative: Hematoma wound left anterolateral leg is stable. No active bleeding seen. VAC was applied. She tolerated reasonably well. Neuro CN's II-XII intact bilaterally Psych mental status grossly normal and affect normal Assessment & Plan Assessment/Plan (1) Hematoma of left lower extremity: (2) 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 lower leg with complication: (3) Skin necrosis: (4) Cellulitis of left lower leg: (5) Fall as cause of accidental injury at home as place of occurrence: (6) Acute renal insufficiency: PLAN: Hematoma wound left anterolateral leg is stable. No active bleeding noted. VAC applied today. She tolerated reasonably well. To be changed three times per week at 150 mmHg continuous suction. Continue compression lui wrap. Patient may ambulate with assist. Minimize standing. When sitting, elevate left leg. Operative culture shows Gram negative rods possible Pseudomonas. Will begin Levaquin and stop the Cleocin. Prealbumin was 15.9. Encourage nutritional supplementation with protein to help the healing process. In 12/08, her Creatinine was 0.96. Today it increased to 1.35. Hospitalist Group was consulted for medical management. Will repeat labs in the morning. After discharge, followup at the Wound Center. If there is a plateau in the healing process, may proceed with delayed closure with skin grafting.
[2021-02-19] MEDS: 0.9% Normal Saline 1,000 ML 125 ML IV ×2 (14:50→23:48)
[2021-02-19] MEDS: levoFLOXacin IV 500 MG/100 ML BAG 100 MG IV (14:51)
--- NOTE | 2021-02-19 15:10 | CASEMGMT ---
Social Work Note JETT updated by PT/OT that recommendation at this time is SNF and pt's first choice is TCU. JETT placed a call to Jodie with TCU and provided referral. Pt is on On TCU list. JETT and RN CM in to speak with pt and pt's DIL. Patient was provided a list of SNF providers including quality and resource use data and consistent with the patient?s preferred geographic region, medical needs, and insurance network. Pt confirms preferred provider is [facility]. JETT informed pt that she is on TCU list, will reevaluate how pt does tomorrow with PT/OT. Pt's DIL was provided private duty list and was educated on respite program at SNF for pt's . JETT and ESTEFANÍA MANNING to continue to follow. Plan: TCU vs Home with [facility] Layla London BOAT CARPENTER MECHANIC, MEDICAL CLAIMS ANALYST
[2021-02-19] MEDS: Acetaminophen 500 MG Tablet PO (20:29)
[2021-02-19] MEDS: Divalproex (ER) 500 MG Tablet PO (22:32)
[2021-02-19] MEDS: Amitriptyline 25 MG Tablet PO (22:32)
[2021-02-19] MEDS: Pravastatin 80 MG Tablet PO (22:33)
[2021-02-20] VITALS (8 sets, daily range): BP systolic 99–128; BP diastolic 41–70; PULSE 72–120; RESP 16–20; TEMP 36.5–37.5; O2SAT 92–98
[2021-02-20 05:55] LABS: Absolute Lymphocyte Count 1.07 X10^3/uL (0.83-4.51); Absolute Neutrophil Count 6.3 X10^3/uL (2.0-7.7); Basophil# 0.03 X10^3/uL; Basophil% 0.3 % (0-1); Eosinophil# 0.13 X10^3/uL; Eosinophils% 1.5 % (0-5); Hemoglobin 11.2 g/dL (12.0-15.0); Lymphocyte # 1.07 X10^3/ul (0.83-4.51); Lymphocyte % 12.1 % (19-41); Mean Corp Hgb Conc 31.1 g/dL (32-36); Mean Corpuscular Hgb 29.3 pg (27.0-32.0); Mean Corpuscular Volume 94.2 fL (81-99); Mean Platelet Vol. 9.9 fl (6.2-12.0); Monocyte# 1.29 X10^3/uL; Monocyte% 14.6 % (0-10); NRBC Flagged by Analyzer 0 % (0-5); Neutrophil # 6.27 X10^3/uL (2.7-7.7); Platelet Count 205 K/mm3 (150-450); RBC Distribution Width CV 14.8 % (11.6-14.6); RBC Distribution Width SD 51.1 fl (35.1-43.9); Red Blood Count 3.82 M/mm3 (4.2-5.4); White Blood Count 8.8 K/mm3 (4.4-11.0)
[2021-02-20 06:23] LABS: Anion Gap 4 (5-15); BUN 41 mg/dL (7-18); BUN/Creat Ratio 34.5 RATIO (10-20); Calcium,Total 8.5 mg/dL (8.5-10.1); Chloride 103 mmol/L (98-107); Creatinine, Serum 1.19 mg/dL (0.55-1.02); EST Glomerular Filtration Rate 47 mL/min (>60); Est Glom Filt Rate - Afr Amer 57 mL/min (>60); Estimated Creatinine Clearance 36.36 ml/min; Glucose 91 mg/dL (74-106); Magnesium 1.7 mg/dL (1.6-2.6); Sodium Level 133 mmol/L (136-145)
--- NOTE | 2021-02-20 07:51 | PCM.PN.HOSP ---
Subjective Subjective Patient seen blood pressure appears to be improving. There is been a slight improvement in kidney function. Wound VAC is in place. Plan is for patient to be discharged to a nursing home facility?TCU pending bed availability Objective Data Objective Data Vital Signs: Vital Signs Temp Pulse Resp BP Pulse Ox 97.7 F L 88 16 99/48 L 98 02/20/21 04:41 02/20/21 04:41 02/20/21 04:41 02/20/21 04:41 02/20/21 04:41 Oxygen Flow Rate (L/min) 2 Oxygen Delivery Method Nasal Cannula Weight: 99.2 kg Body Mass Index (BMI) 37.5 Intake & Output: Intake and Output for Last 24 Hours 02/18/21 02/19/21 02/20/21 23:59 23:59 23:59 Intake Total 1760 / 1760 4693.59 / 5493.59 1000 / 1000 Output Total 100 / 100 575 / 1125 850 / 850 Balance 1660 / 1660 4118.59 / 4368.59 150 / 150 Lab / Micro Data Result Diagrams: 02/20/21 05:25 02/20/21 05:25 Labs: Laboratory Results - last 24 hr 02/19/21 02/20/21 02/20/21 06:50 05:25 05:25 WBC 8.8 RBC 3.82 L Hgb 11.2 L Hct 36.0 L MCV 94.2 MCH 29.3 MCHC 31.1 L RDW Std Deviation 51.1 H RDW Coeff of Shannon 14.8 H Plt Count 205 MPV 9.9 Immature Gran % (Auto) 0.500 Neut % (Auto) 71.0 H Lymph % (Auto) 12.1 L [place] % (Auto) 14.6 H Eos % (Auto) 1.5 Baso % (Auto) 0.3 Absolute Neuts (auto) 6.3 Absolute Lymphs (auto) 1.07 Nucleated RBC % 0 Sodium 135 L 133 L Potassium 4.8 5.0 Chloride 103 103 Carbon Dioxide 29.0 26.0 Anion Gap 3 L 4 L BUN 33 H 41 H Creatinine 1.35 H 1.19 H Estim Creat Clear Calc 32.53 36.36 Est GFR (MDRD) Af Amer 49 L 57 L Est GFR (MDRD) Non-Af 41 L 47 L BUN/Creatinine Ratio 24.4 H 34.5 H Glucose 97 91 Calcium 8.4 L 8.5 Magnesium 1.7 Prealbumin 15.9 L Micro: Microbiology 02/18/21 14:30 Tissue - Leg Gram Stain - Final 02/18/21 14:30 Tissue - Leg Wound Culture - Final Pseudomonas aeroginosa 02/18/21 14:30 Tissue - Leg Anaerobic Culture - Preliminary No anaerobic bacteria isolated. Physical Exam Narrative GENERAL: cooperative HEENT: Atraumatic; EYES; Anicteric, Normal Conjunctiva NECK; supple, normal thyroid, RESPIRATORY: Diminished to auscultation CARDIOVASCULAR: Regular S1 S2, GI: soft, normoactive bowel sounds, : No Renal angle tenderness; EXTREMITIES: Wound VAC left lower extremity MUSCULOSKELETAL: no muscle waisting NEURO: Awake; no lateralizing signs. SKIN: No Rash PSYCH; Flat affect Assessment & Plan Assessment/Plan (1) Fall as cause of accidental injury at home as place of occurrence: (2) Cellulitis of left lower leg: (3) Skin necrosis: (4) 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 lower leg with complication: (5) Hematoma of left lower extremity: (6) Essential hypertension: (7) Paroxysmal atrial fibrillation: (8) Hyperlipidemia: QUALIFIERS: Hyperlipidemia type: unspecified Qualified Code(s): E78.5 - Hyperlipidemia, unspecified (9) Factor V deficiency: (10) Acute renal insufficiency: PLAN: Patient is a 71-year-old lady who was admitted by Dr. Kent on account of traumatic infected hematoma, following laceration involving the left anterior leg with associated skin necrosis. Patient underwent incision and drainage with evacuation of traumatic infected hematoma and excisional debridement of skin necrosis. Subsequently admitted to [facility]. 1. Traumatic infected hematoma - following laceration involving the left anterior leg with associated skin necrosis. Patient underwent incision and drainage with evacuation of traumatic infected hematoma and excisional debridement of skin necrosis by Dr. Kent on 02/18/20[address] [facility].. Cultures obtained so far positive for possible Pseudomonas species. Patient currently on clindamycin as well as Levaquin -02/20/2021; wound VAC was placed the day prior. Patient is on Levaquin for the Pseudomonas based on sensitivity 2. Acute renal insufficiency ?Patient is on valsartan HCTZ, the HCTZ component held resuscitated with IV fluids with subsequent monitoring of electrolyte -02/20/2021; slight improvement in kidney function 3. Dyslipidemia -Patient is on statin therapy, continued at home dose 4. Factor V Leyden mutation ?Patient is on systemic anticoagulation with apixaban 5. Paroxysmal A. fib ?Rate controlled on systemic anticoagulation with apixaban 6. Morbid obesity - With a BMI of 37.5 patient was counseled on weight reduction 7. Obstructive sleep apnea ?Patient is on CPAP at night 8. Hypertension - Blood pressure controlled, on the low side antihypertensives held -02/20/2021 patient blood pressure appears to be stabilizing 9. DVT prophylaxis ?On apixaban Visit Charges Inpatient E&M: 53414 Subs Hosp L2
[2021-02-20] MEDS: 0.9% Normal Saline 1,000 ML 125 ML IV ×2 (08:16→17:03)
[2021-02-20] MEDS: Multivitamins,Therapeutic Tablet 1 TABLET PO (08:17)
[2021-02-20] MEDS: Potassium Chloride Oral Tablet 20 MEQ PO ×2 (08:17→17:05)
[2021-02-20] MEDS: oxyCODONE 5 MG Tablet 10 MG PO ×2 (09:24→17:03)
[2021-02-20] MEDS: Docusate Sodium 100 MG Capsule PO ×2 (09:25→21:36)
[2021-02-20] MEDS: Verapamil SR 240 MG Tablet PO (09:25)
[2021-02-20] MEDS: Pantoprazole Sodium 20 MG Tablet PO (09:25)
[2021-02-20] MEDS: CETIRIZINE HCL 10 MG TABLET PO (09:25)
[2021-02-20] MEDS: Citalopram 40 MG TABLET PO (09:25)
[2021-02-20] MEDS: Nystatin Powder 15gm Bottle 1 APPLIC TOPICAL ×2 (09:25→21:36)
[2021-02-20] MEDS: Montelukast 10 MG Tablet PO (09:25)
[2021-02-20] MEDS: APIXABAN 5 MG TABLET PO ×2 (09:25→21:36)
[2021-02-20] MEDS: levoFLOXacin IV 500 MG/100 ML BAG 100 MG IV (09:30)
--- NOTE | 2021-02-20 10:39 | CASEMGMT ---
Social Work Note SW received email from Jodie with TCU stating pt takes migraine injections (Galcanezumab-gnlm 1x a month) but pt will not be able to take that medication while pt is on TCU. SW in to speak wt pt and pt has guest present in room. SW updated pt that she will not be able to take that medication/injection and will not be able to bring in the medication. Pt states understanding, agreeable to not taking the medication while at TCU. SW informed pt that pt that TCU is able to accept pt when pt is medically cleared. Pt states understanding, agreeable to TCU. Plan: TCU when medically cleared Layla London TRANSPORTATION MUSEUM HELPER, QUANTITATIVE ASSOCIATE
[2021-02-20] MEDS: Amitriptyline 25 MG Tablet PO (21:36)
[2021-02-20] MEDS: Pravastatin 80 MG Tablet PO (21:36)
[2021-02-20] MEDS: Divalproex (ER) 500 MG Tablet PO (21:36)
[2021-02-21 03:00] VITALS: BP 138/64; PULSE 96; RESP 16; TEMP 36.8; O2SAT 96
[2021-02-21] MEDS: 0.9% Normal Saline 1,000 ML 125 ML IV (03:05)
[2021-02-21 06:25] LABS: Absolute Lymphocyte Count 0.92 X10^3/uL (0.83-4.51); Absolute Neutrophil Count 4.6 X10^3/uL (2.0-7.7); Basophil# 0.02 X10^3/uL; Basophil% 0.3 % (0-1); Eosinophils% 1.6 % (0-5); Hematocrit 29.5 % (37-47); Hemoglobin 9.6 g/dL (12.0-15.0); Lymphocyte # 0.92 X10^3/ul (0.83-4.51); Lymphocyte % 14.3 % (19-41); Mean Corp Hgb Conc 32.5 g/dL (32-36); Mean Corpuscular Hgb 29.8 pg (27.0-32.0); Mean Corpuscular Volume 91.6 fL (81-99); Mean Platelet Vol. 9.8 fl (6.2-12.0); Monocyte# 0.78 X10^3/uL; Monocyte% 12.1 % (0-10); NRBC Flagged by Analyzer 0 % (0-5); Neutrophil # 4.59 X10^3/uL (2.7-7.7); Neutrophil % 71.2 % (47-70); Platelet Count 191 K/mm3 (150-450); RBC Distribution Width CV 14.6 % (11.6-14.6); RBC Distribution Width SD 49.2 fl (35.1-43.9); Red Blood Count 3.22 M/mm3 (4.2-5.4); White Blood Count 6.4 K/mm3 (4.4-11.0)
[2021-02-21 06:37] LABS: Anion Gap 5 (5-15); BUN 29 mg/dL (7-18); BUN/Creat Ratio 33.4 RATIO (10-20); Calcium,Total 8.3 mg/dL (8.5-10.1); Chloride 104 mmol/L (98-107); Creatinine, Serum 0.87 mg/dL (0.55-1.02); EST Glomerular Filtration Rate 68 mL/min (>60); Est Glom Filt Rate - Afr Amer 82 mL/min (>60); Estimated Creatinine Clearance 49.73 ml/min; Glucose 84 mg/dL (74-106); Potassium 4.2 mmol/L (3.5-5.1); Sodium Level 137 mmol/L (136-145)
[2021-02-21 07:18] VITALS: O2SAT 95
--- NOTE | 2021-02-21 07:22 | PN.HOSP_ITS ---
Subjective Subjective Per nursing staff patient is constipated plan is to treat symptomatically. Objective Data Objective Data Vital Signs: Vital Signs Temp Pulse Resp BP Pulse Ox 98.3 F 96 16 138/64 H 96 02/21/21 03:00 02/21/21 03:00 02/21/21 03:00 02/21/21 03:00 02/21/21 03:00 Oxygen Flow Rate (L/min) 2 Oxygen Delivery Method Room Air Weight: 99.2 kg Body Mass Index (BMI) 37.5 Intake & Output: Intake and Output for Last 24 Hours 02/19/21 02/20/21 02/21/21 23:59 23:59 23:59 Intake Total 4693.59 / 5493.59 3475.00 / 3475.00 1400 / 1400 Output Total 575 / 1125 1150 / 1150 1300 / 1300 Balance 4118.59 / 4368.59 2325.00 / 2325.00 100 / 100 Lab / Micro Data Result Diagrams: 02/21/21 06:10 02/21/21 06:10 Labs: Laboratory Results - last 24 hr 02/21/21 02/21/21 06:10 06:10 WBC 6.4 RBC 3.22 L Hgb 9.6 L Hct 29.5 L MCV 91.6 MCH 29.8 MCHC 32.5 RDW Std Deviation 49.2 H RDW Coeff of Shannon 14.6 Plt Count 191 MPV 9.8 Immature Gran % (Auto) 0.500 Neut % (Auto) 71.2 H Lymph % (Auto) 14.3 L [place] % (Auto) 12.1 H Eos % (Auto) 1.6 Baso % (Auto) 0.3 Absolute Neuts (auto) 4.6 Absolute Lymphs (auto) 0.92 Nucleated RBC % 0 Sodium 137 Potassium 4.2 Chloride 104 Carbon Dioxide 28.0 Anion Gap 5 BUN 29 H Creatinine 0.87 Estim Creat Clear Calc 49.73 Est GFR (MDRD) Af Amer 82 Est GFR (MDRD) Non-Af 68 BUN/Creatinine Ratio 33.4 H Glucose 84 Calcium 8.3 L Micro: Microbiology 02/18/21 14:30 Tissue - Leg Gram Stain - Final 02/18/21 14:30 Tissue - Leg Wound Culture - Final Pseudomonas aeroginosa 02/18/21 14:30 Tissue - Leg Anaerobic Culture - Preliminary No anaerobic bacteria isolated. Physical Exam Narrative GENERAL: cooperative HEENT: Atraumatic; EYES; Anicteric, Normal Conjunctiva NECK; supple, normal thyroid, RESPIRATORY: Diminished to auscultation CARDIOVASCULAR: Regular S1 S2, GI: soft, normoactive bowel sounds, : No Renal angle tenderness; EXTREMITIES: Wound VAC left lower extremity MUSCULOSKELETAL: no muscle waisting NEURO: Awake; no lateralizing signs. SKIN: No Rash PSYCH; Flat affect Assessment & Plan Assessment/Plan (1) Fall as cause of accidental injury at home as place of occurrence: (2) Cellulitis of left lower leg: (3) Skin necrosis: (4) 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 lower leg with complication: (5) Hematoma of left lower extremity: (6) Essential hypertension: (7) Paroxysmal atrial fibrillation: (8) Hyperlipidemia: QUALIFIERS: Hyperlipidemia type: unspecified Qualified Code(s): E78.5 - Hyperlipidemia, unspecified (9) Factor V deficiency: (10) Acute renal insufficiency: PLAN: Patient is a 71-year-old lady who was admitted by Dr. Kent on account of traumatic infected hematoma, following laceration involving the left anterior leg with associated skin necrosis. Patient underwent incision and drainage with evacuation of traumatic infected hematoma and excisional debridement of skin necrosis. Subsequently admitted to [facility]. 1. Traumatic infected hematoma - following laceration involving the left anterior leg with associated skin necrosis. Patient underwent incision and drainage with evacuation of traumatic infected hematoma and excisional debridement of skin necrosis by Dr. Kent on 02/18/2021 subsequently admitted to [facility].. Cultures obtained so far positive for possible Pseudomonas species. Patient currently on clindamycin as well as Levaquin -02/20/2021; wound VAC was placed the day prior. Patient is on Levaquin for the Pseudomonas based on sensitivity 2. Acute renal insufficiency ?Patient is on valsartan HCTZ, the HCTZ component held resuscitated with IV fluids with subsequent monitoring of electrolyte -02/20/2021; slight improvement in kidney function 3. Dyslipidemia -Patient is on statin therapy, continued at home dose 4. Factor V Leyden mutation ?Patient is on systemic anticoagulation with apixaban 5. Paroxysmal A. fib ?Rate controlled on systemic anticoagulation with apixaban 6. Morbid obesity - With a BMI of 37.5 patient was counseled on weight reduction 7. Obstructive sleep apnea ?Patient is on CPAP at night 8. Hypertension - Blood pressure controlled, on the low side antihypertensives held -02/20/2021 patient blood pressure appears to be stabilizing 9. DVT prophylaxis ?On apixaban 10. Constipation ?Treated symptomatically Charges/Coding Visit Charges Inpatient E&M: 02211 Subs Hosp L2
[2021-02-21 09:05] VITALS: BP 128/68; PULSE 76; RESP 18; TEMP 36.7; O2SAT 96
[2021-02-21] MEDS: Acetaminophen 500 MG Tablet PO ×2 (09:06→14:22)
[2021-02-21] MEDS: Pantoprazole Sodium 20 MG Tablet PO (09:07)
[2021-02-21] MEDS: oxyCODONE 5 MG Tablet 10 MG PO ×2 (09:07→14:22)
[2021-02-21] MEDS: CETIRIZINE HCL 10 MG TABLET PO (09:08)
[2021-02-21] MEDS: Montelukast 10 MG Tablet PO (09:08)
[2021-02-21] MEDS: Citalopram 40 MG TABLET PO (09:08)
[2021-02-21] MEDS: Potassium Chloride Oral Tablet 20 MEQ PO (09:08)
[2021-02-21] MEDS: Verapamil SR 240 MG Tablet PO (09:08)
[2021-02-21] MEDS: Nystatin Powder 15gm Bottle 1 APPLIC TOPICAL (09:08)
[2021-02-21] MEDS: Docusate Sodium 100 MG Capsule PO (09:09)
[2021-02-21] MEDS: APIXABAN 5 MG TABLET PO (09:09)
[2021-02-21] MEDS: levoFLOXacin IV 500 MG/100 ML BAG 100 MG IV (09:15)
[2021-02-21] MEDS: Multivitamins,Therapeutic Tablet 1 TABLET PO (09:16)
--- NOTE | 2021-02-21 10:20 | NURSING ---
pt states she has had both of her COVID vaccines- but does not have information with her. states she will ask her son to bring it in so copy can be made and placed on chart.
--- NOTE | 2021-02-21 10:31 | PCM.TXEXTCAR ---
Diet 02/18/21 16:14 Diet: Regular - General Type of Dietary Supplement:: magic cup Diet Comments: w/ lunch and dinner Wound(s) Left Leg: Wound Type: Surgical Incision Dressing Change: applied KCI wound VAC Therapies Physical Therapy: Eval and Treat Occupational Therapy: Eval and Treat Problem/Diagnosis (1) Fall as cause of accidental injury at home as place of occurrence: Status: Chronic (2) Cellulitis of left lower leg: Status: Acute Comment: secondary to hematoma laceration and skin necrosis (3) Skin necrosis: Status: Chronic Comment: hematoma laceration left anterolateral leg with skin necrosis (4) 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 lower leg with complication: Status: Chronic Comment: left anterolateral leg with skin necrosis (5) Hematoma of left lower extremity: Status: Chronic Comment: left anterolateral leg with skin necrosis (6) Essential hypertension: Status: Chronic (7) Paroxysmal atrial fibrillation: Status: Chronic (8) Hyperlipidemia: Status: Chronic (9) Factor V deficiency: Status: Chronic (10) Acute renal insufficiency: Status: Acute Allergies/Procedures Done in Hospital Allergies cefdinir Allergy (Verified 02/18/21 12:28) Unknown diphenhydramine HCl [From Benadryl] Allergy (Verified 02/18/21 12:28) Hives Sulfa (Sulfonamide Antibiotics) Allergy (Verified 02/18/21 12:28) Hives Type of Care/Length of Stay Estimated LOS: Convalescent Care Less Than 30 days Type of Care Needed: Skilled Rehab Potential: Good Prognosis: Good Additional Orders/Day of Discharge Day of Discharge: 02/21/21 Dietary and Speech Recommendations Dietitian Recommendations/Changes: Continue regular-general diet. Continue 1 packet Mustapha PO BIDCM BARRETT. Add magic cup BID at lunch and dinner. Pio Barkley MS, RDN, LD Follow Up Care Please Follow Up With: Anant Kent MD When: In 3 to 5 days Discharge Plan Admission Admit Date/Time: 02/19/21 13:48 Attending Provider: Giuliano Will Primary Care Provider: Desmond Riojas Chi Consulting Providers: Giuliano Will Discharge Orders/Prescriptions Prescriptions: New promethazine 25 mg Tablet 25 mg PO Q4H PRN PRN (Reason: NAUSEA/VOMITING) Qty: 0 RF: 0 levofloxacin 500 mg tablet 500 mg PO DAILY Qty: 7 RF: 0 oxycodone 10 mg tablet 10 mg PO Q4H PRN (Reason: pain) 2 Days Qty: 8 RF: 0 sennosides [Ora-perri] 8.6 mg Tablet 1 tab PO BID Qty: 0 RF: 0 Continued citalopram [Celexa] 40 mg tablet 80 mg PO QDAY RF: 0 pravastatin 80 mg tablet 80 mg PO QHS RF: 0 amitriptyline 25 mg tablet 25 mg PO QHS RF: 0 Emgality Syringe 120 mg/mL syringe 120 mg SC QMONTH RF: 0 cholecalciferol (vitamin D3) 400 unit capsule 400 unit PO DAILY RF: 0 multivitamin Tablet 1 tab PO DAILY RF: 0 doxycycline monohydrate 100 mg capsule 100 mg PO BID 15 Days Qty: 30 RF: 0 potassium chloride 20 MEQ tablet 20 meq PO BID RF: 0 omeprazole 20 MG capsule 20 mg PO DAILY RF: 0 montelukast 10 MG tablet 10 mg PO DAILY RF: 0 verapamil 240 MG capsule,ext rel. pellets 24 hr 240 mg PO DAILY RF: 0 levocetirizine 5 MG tablet 5 mg PO DAILY RF: 0 zolpidem 10 mg tablet 10 mg PO QHS PRN PRN (Reason: Sleep) RF: 0 divalproex [Depakote ER] 500 mg Tablet Extended Release 24 Hr 500 mg PO QHS RF: 0 apixaban 5 mg tablet 5 mg PO BID Qty: 180 RF: 3 Discontinued valsartan-hydrochlorothiazide 320-12.5 mg tablet 1 tab PO DAILY RF: 0 doxycycline hyclate 100 mg Capsule 100 mg PO BID RF: 0 Referrals / Follow Up: Desmond Riojas Chi, MD [Primary Care Provider] - In 1 Week Disposition Disposition (needs filled in before D/C Order can be placed): [facility]
--- NOTE | 2021-02-21 10:39 | DS.PCM_ITS ---
Providers Date of Admission: 02/19/21 Primary Care Physician: Dr. Desmond Riojas MD Consultations 02/19/21 06:32 Consult: Onc/Wound/licensed practical nurse clinic nurse Routine Comment: Reason for Consult:: wound vac 02/19/21 11:33 Consult: Hospitalist Routine Consulting Provider: Giuliano Will Reason for Consult: medical management. Has renal insufficiency. On eliquis for factor V def. EMERGENT Consult: No MD Notified: Yes Date Notified:: 02/19/21 Time Notified: 11:34 Method of Notification: Verbal Diagnosis Discharge Diagnosis (1) Fall as cause of accidental injury at home as place of occurrence: Status: Chronic Code(s): W19.XXXA - Unspecified fall, initial encounter; Y92.009 - Unspecified place in unspecified non-institutional (private) residence as the place of occurrence of the external cause (2) Cellulitis of left lower leg: Status: Acute Code(s): L03.116 - Cellulitis of left lower limb (3) Skin necrosis: Status: Chronic Code(s): I96 - Gangrene, not elsewhere classified (4) 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 lower leg with complication: Status: Chronic Code(s): S81.812A - Laceration without foreign body, left lower leg, initial encounter (5) Hematoma of left lower extremity: Status: Chronic Code(s): S80.12XA - Contusion of left lower leg, initial encounter (6) Essential hypertension: Status: Chronic Code(s): I10 - Essential (primary) hypertension (7) Paroxysmal atrial fibrillation: Status: Chronic Code(s): I48.0 - Paroxysmal atrial fibrillation (8) Hyperlipidemia: Status: Chronic Code(s): E78.5 - Hyperlipidemia, unspecified Qualifiers: Hyperlipidemia type: unspecified Qualified Code(s): E78.5 - Hyperlipidemia, unspecified (9) Factor V deficiency: Status: Chronic Code(s): D68.2 - Hereditary deficiency of other clotting factors (10) Acute renal insufficiency: Status: Acute Code(s): N28.9 - Disorder of kidney and ureter, unspecified Medications at Discharge Home Medications levocetirizine 5 mg PO DAILY 09/29/13 montelukast 10 mg PO DAILY 09/29/13 omeprazole 20 mg PO DAILY 09/29/13 potassium chloride 20 meq PO BID 09/29/13 verapamil 240 mg PO DAILY 09/29/13 pravastatin 80 mg tablet 80 mg PO QHS 11/16/17 apixaban 5 mg tablet 5 mg PO BID #180 tab 04/18/19 amitriptyline 25 mg tablet 25 mg PO QHS 10/25/19 cholecalciferol (vitamin D3) 10 mcg (400 unit) capsule 400 unit PO DAILY citalopram 40 mg tablet 80 mg PO QDAY tab 10/25/19 galcanezumab-gnlm 120 mg/mL subcutaneous syringe 120 mg SC QMONTH 10/25/19 multivitamin 1 tab PO DAILY 04/26/20 zolpidem 10 mg tablet 10 mg PO QHS PRN PRN 10/03/20 divalproex [Depakote ER] 500 mg PO QHS 01/31/21 doxycycline monohydrate 100 mg capsule 100 mg PO BID 15 Days #30 cap 02/14/21 levofloxacin 500 mg PO DAILY #7 tab 02/21/21 oxycodone 10 mg PO Q4H PRN 2 Days #8 tab 02/21/21 promethazine 25 mg PO Q4H PRN PRN #0 tab 02/21/21 sennosides [Ora-perri] 1 tab PO BID #0 tab 02/21/21 Hospital Course Summary of Care Provided Minutes Spent on Discharge: 50 Hospital Course: Patient is a 71-year-old lady who was admitted by Dr. Kent on account of traumatic infected hematoma, following laceration involving the left anterior leg with associated skin necrosis. Patient underwent incision and drainage with evacuation of traumatic infected hematoma and excisional debridement of skin necrosis. Subsequently admitted to [facility]. 1. Traumatic infected hematoma - following laceration involving the left anterior leg with associated skin necrosis. Patient underwent incision and drainage with evacuation of traumatic infected hematoma and excisional debridement of skin necrosis by Dr. Kent on 02/18/2021 subsequently admitted to [facility].. Cultures obtained so far positive for possible Pseudomonas species. Patient currently on clindamycin as well as Levaquin -02/20/2021; wound VAC was placed the day prior. Patient is on Levaquin for the Pseudomonas based on sensitivity ?03/01/2021 patient discharged to the transitional care unit on Levaquin and doxy 2. Acute renal insufficiency ?Patient is on valsartan HCTZ, the HCTZ component held resuscitated with IV fluids with subsequent monitoring of electrolyte -02/20/2021; slight improvement in kidney function -02/21/2021 kidney function back to baseline 3. Dyslipidemia -Patient is on statin therapy, continued at home dose 4. Factor V Leyden mutation ?Patient is on systemic anticoagulation with apixaban 5. Paroxysmal A. fib ?Rate controlled on systemic anticoagulation with apixaban 6. Morbid obesity - With a BMI of 37.5 patient was counseled on weight reduction 7. Obstructive sleep apnea ?Patient is on CPAP at night 8. Hypertension - Blood pressure controlled, on the low side antihypertensives held -02/20/2021 patient blood pressure appears to be stabilizing 9. DVT prophylaxis ?On apixaban 10. Constipation ?Treated symptomatically Physical Exam Narrative GENERAL: cooperative HEENT: Atraumatic; EYES; Anicteric, Normal Conjunctiva NECK; supple, normal thyroid, RESPIRATORY: Diminished to auscultation CARDIOVASCULAR: Regular S1 S2, GI: soft, normoactive bowel sounds, : No Renal angle tenderness; EXTREMITIES: Wound VAC left lower extremity MUSCULOSKELETAL: no muscle waisting NEURO: Awake; no lateralizing signs. SKIN: No Rash PSYCH; Flat affect ABG / Lab / Microbiology Data Result Diagrams: 02/21/21 06:10 02/21/21 06:10 Laboratory: Laboratory Results - last 24 hr 02/21/21 02/21/21 06:10 06:10 WBC 6.4 RBC 3.22 L Hgb 9.6 L Hct 29.5 L MCV 91.6 MCH 29.8 MCHC 32.5 RDW Std Deviation 49.2 H RDW Coeff of Shannon 14.6 Plt Count 191 MPV 9.8 Immature Gran % (Auto) 0.500 Neut % (Auto) 71.2 H Lymph % (Auto) 14.3 L [place] % (Auto) 12.1 H Eos % (Auto) 1.6 Baso % (Auto) 0.3 Absolute Neuts (auto) 4.6 Absolute Lymphs (auto) 0.92 Nucleated RBC % 0 Sodium 137 Potassium 4.2 Chloride 104 Carbon Dioxide 28.0 Anion Gap 5 BUN 29 H Creatinine 0.87 Estim Creat Clear Calc 49.73 Est GFR (MDRD) Af Amer 82 Est GFR (MDRD) Non-Af 68 BUN/Creatinine Ratio 33.4 H Glucose 84 Calcium 8.3 L Microbiology: Microbiology 02/21/21 09:15 SARS-CoV-2 Antigen (Rapid) - Final Interface Orders 02/18/21 14:30 Gram Stain - Final Tissue - Leg Wound Culture - Final Pseudomonas aeroginosa Anaerobic Culture - Preliminary No anaerobic bacteria isolated. Microbiology 02/21/21 09:15 Interface Orders SARS-CoV-2 Antigen (Rapid) - Final 02/18/21 14:30 Tissue - Leg Gram Stain - Final 02/18/21 14:30 Tissue - Leg Wound Culture - Final Pseudomonas aeroginosa 02/18/21 14:30 Tissue - Leg Anaerobic Culture - Preliminary No anaerobic bacteria isolated. D/C Instructions Discharge Diet: No restrictions Discharge Activity: Return to Normal Activity Call your doctor if you observe: Fever of 101 or Higher, Shortness of breath, Fainting spells and Chest pain Please Follow Up With: Anant Kent MD Meaningful Use Info Meaningful Use Diagnoses (Choose all that apply): None applicable Discharge Plan Admission Admit Date/Time: 02/19/21 13:48 Primary Reason for Your Visit: Infected hematoma Attending Provider: Giuliano Will Primary Care Provider: Desmond Riojas Chi Consulting Providers: Giuliano Will Discharge Orders/Prescriptions Prescriptions: New promethazine 25 mg Tablet 25 mg PO Q4H PRN PRN (Reason: NAUSEA/VOMITING) Qty: 0 RF: 0 levofloxacin 500 mg tablet 500 mg PO DAILY Qty: 7 RF: 0 oxycodone 10 mg tablet 10 mg PO Q4H PRN (Reason: pain) 2 Days Qty: 8 RF: 0 sennosides [Ora-perri] 8.6 mg Tablet 1 tab PO BID Qty: 0 RF: 0 Continued citalopram [Celexa] 40 mg tablet 80 mg PO QDAY RF: 0 pravastatin 80 mg tablet 80 mg PO QHS RF: 0 amitriptyline 25 mg tablet 25 mg PO QHS RF: 0 Emgality Syringe 120 mg/mL syringe 120 mg SC QMONTH RF: 0 cholecalciferol (vitamin D3) 400 unit capsule 400 unit PO DAILY RF: 0 multivitamin Tablet 1 tab PO DAILY RF: 0 doxycycline monohydrate 100 mg capsule 100 mg PO BID 15 Days Qty: 30 RF: 0 potassium chloride 20 MEQ tablet 20 meq PO BID RF: 0 omeprazole 20 MG capsule 20 mg PO DAILY RF: 0 montelukast 10 MG tablet 10 mg PO DAILY RF: 0 verapamil 240 MG capsule,ext rel. pellets 24 hr 240 mg PO DAILY RF: 0 levocetirizine 5 MG tablet 5 mg PO DAILY RF: 0 zolpidem 10 mg tablet 10 mg PO QHS PRN PRN (Reason: Sleep) RF: 0 divalproex [Depakote ER] 500 mg Tablet Extended Release 24 Hr 500 mg PO QHS RF: 0 apixaban 5 mg tablet 5 mg PO BID Qty: 180 RF: 3 Discontinued valsartan-hydrochlorothiazide 320-12.5 mg tablet 1 tab PO DAILY RF: 0 doxycycline hyclate 100 mg Capsule 100 mg PO BID RF: 0 Referrals / Follow Up: Desmond Riojas Chi, MD [Primary Care Provider] - In 1 Week Disposition Disposition (needs filled in before D/C Order can be placed): [facility] Facility Charges/Coding Visit Charges Inpatient E&M: 89012 Disch Hosp
--- NOTE | 2021-02-21 11:10 | CASEMGMT ---
Social Work Pt is ready for discharge today. Jodie in TCU updated and orders faxed to TCU. Negative Covid test obtained. SW met with pt and explained discharge plan for today. Pt is agreeable and states she will call her son and let him know of plan. Nursing updated. Handoff provided to [facility]. [facility] Carty
[2021-02-21 14:18] VITALS: BP 100/53; PULSE 80; RESP 18; TEMP 36.7; O2SAT 94
[2021-02-21] MEDS: Iron Polysaccharide Complex 150 MG CAPSULE PO (14:22)
== END 2021-02-21 14:46 | disposition skilled nursing facility (03) | DRG 571 ==
LOC: SDC 22:02 → MS3 22:02
PROVIDERS: Admitting Provider Surgery; PCP Family Medicine Geriatric Medicine; Referring Provider Surgery; Visit Provider Internal Medicine
PROC: 0JBP0ZZ Excision of Left Lower Leg Subcutaneous Tissue and Fascia, Open Approach (ICD-10-PCS; principal; 2021-02-18 12:45)
DX: L03.116 Cellulitis of left lower limb (principal); I96 Gangrene, not elsewhere classified; D68.2 Hereditary deficiency of other clotting factors; S80.12XA Contusion of left lower leg, initial encounter; S81.812A Laceration without foreign body, left lower leg, initial encounter; W19.XXXA Unspecified fall, initial encounter; Y93.9 Activity, unspecified; Y92.009 Unspecified place in unspecified non-institutional (private) residence as the place of occurrence of the external cause; N28.9 Disorder of kidney and ureter, unspecified; K59.00 Constipation, unspecified; I48.0 Paroxysmal atrial fibrillation; F32.9 Major depressive disorder, single episode, unspecified; I10 Essential (primary) hypertension; E78.00 Pure hypercholesterolemia, unspecified; G47.33 Obstructive sleep apnea (adult) (pediatric); F41.9 Anxiety disorder, unspecified; M41.9 Scoliosis, unspecified; M99.03 Segmental and somatic dysfunction of lumbar region; M99.05 Segmental and somatic dysfunction of pelvic region; G43.909 Migraine, unspecified, not intractable, without status migrainosus; E78.5 Hyperlipidemia, unspecified; H26.9 Unspecified cataract; H91.90 Unspecified hearing loss, unspecified ear; E66.01 Morbid (severe) obesity due to excess calories; Z68.37 Body mass index [BMI] 37.0-37.9, adult; Z79.01 Long term (current) use of anticoagulants; Z86.718 Personal history of other venous thrombosis and embolism; Z79.899 Other long term (current) drug therapy
CPT/HCPCS: 36415; 80048; 83735; 84134; 85025; 85027; 87070; 87075; 87077; 87102; 87176; 87184; 87186; 87205; 87206; 87426; 88305; 97110; 97162; 97166; 97167; 97530; 99251; J7030; J7120; A4216; G0463; J2405

== ENCOUNTER 2021-02-21 14:55 | Inpatient (IN) | payer MEDICARE, OTHER, SELFPAY ==
[2021-02-18 17:17] VITALS: BMI 37.5
[2021-02-21 15:08] VITALS: BP 113/51; PULSE 79; RESP 16; RESP 17; TEMP 37; O2SAT 96; BMI 42.2
--- NOTE | 2021-02-21 15:41 | HP.PCM_ITS ---
HPI - General General Date of Admission: 02/21/21 HPI Narrative 02/18/2021 DIONTE BRADFORD, is a 71 Female who presents to [facility] with traumatic infected left lower extremity hematoma. Dr. Kent performed surgical preparation left anterior lateral leg, incision, drainage, evacuation of traumatic infected hematoma, excisional debridement skin necrosis. 02/19/2021 Cultures growing possible pseudomonas species treated with Clindamycin, Levaquin. Hold hydrochlorothiazide, give IV fluids for acute kidney injury. 02/20/2021 Kidney function improved. Blood pressure improved. Wound VAC to left lower extremity. 02/21/2021 Antibiotics changed to Levaquin, Doxycycline. Kidney function back to baseline. 02/21/2021 Admit to TCU with debility, here for rehabilitation, strengthening, wound care, prior to discharge home with . [facility] Medical History (Updated 02/21/21 @ 15:[address] Desmond Riojas MD) Allergies Anxiety Arthritis Atrial fibrillation Cardiology follow-up encounter Cellulitis of left lower leg CKD (chronic kidney disease) CKD (chronic kidney disease) CPAP (continuous positive airway pressure) dependence Depression DVT (deep venous thrombosis) Essential hypertension Factor V deficiency Fall as cause of accidental injury at home as place of occurrence Fall due to ice or snow Family history of coronary artery disease Family history of CVA Family history of hypertension Gastric reflux Head injury without concussion or intracranial hemorrhage Headache Hearing problem Hematoma of left lower extremity High cholesterol History of atrial fibrillation History of DVT (deep vein thrombosis) History of edema History of pain when walking History of stress test Hx of echocardiogram Hyperlipidemia Hypertension Injury of back Injury of head and neck 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 lower leg with complication detention use of drug Long-term use of high-risk medication Migraine headache Non-smoker Obesity, Class III, BMI 40-49.9 (morbid obesity) Open wound Open wound of left lower leg with complication VALENTIN (obstructive sleep apnea) Paroxysmal atrial fibrillation Skin necrosis Syncope Traumatic ulcer of left lower extremity Vision problems Walker as ambulation aid Wears glasses Wears hearing aid Home Medications levocetirizine 5 mg PO DAILY 09/29/13 [History Last Taken 09/29/13] montelukast 10 mg PO DAILY 09/29/13 [History Last Taken 09/28/13] omeprazole 20 mg PO DAILY 09/29/13 [History Last Taken 02/18/21] potassium chloride 20 meq PO BID 09/29/13 [History Last Taken 09/29/13] verapamil 240 mg PO DAILY 09/29/13 [History Last Taken 02/18/21] pravastatin 80 mg tablet 80 mg PO QHS 11/16/17 [History Last Taken Unknown] amitriptyline 25 mg tablet 25 mg PO QHS 10/25/19 [History Last Taken Unknown] cholecalciferol (vitamin D3) 10 mcg (400 unit) capsule 400 unit PO DAILY 10/25/19 [History Last Taken Unknown] citalopram 40 mg tablet 80 mg PO QDAY tab 10/25/19 [History Last Taken Unknown] galcanezumab-gnlm 120 mg/mL subcutaneous syringe 120 mg SC QMONTH 10/25/19 [History Last Taken Unknown] multivitamin 1 tab PO DAILY 04/26/20 [History Last Taken Unknown] zolpidem 10 mg tablet 10 mg PO QHS PRN PRN 10/03/20 [History Last Taken Unknown] divalproex [Depakote ER] 500 mg PO QHS 01/31/21 [History Last Taken Unknown] apixaban 5 mg PO BID 02/21/21 [History Last Taken Unknown] doxycycline monohydrate 100 mg PO BID 02/21/21 [History Last Taken Unknown] levofloxacin 500 mg PO DAILY 02/21/21 [History Last Taken Unknown] oxycodone 10 mg PO Q4H PRN 2 Days #8 tab 02/21/21 [Rx Last Taken Unknown] promethazine 25 mg PO Q4H PRN PRN #0 tab 02/21/21 [Rx Last Taken Unknown] sennosides [Ora-perri] 1 tab PO BID 02/21/21 [History Last Taken Unknown] Allergy/AdvReac Type Severity Reaction Status Date / Time cefdinir Allergy Unknown Verified 02/18/21 12:28 diphenhydramine HCl Allergy Hives Verified 02/18/21 12:28 [From Benadryl] Sulfa (Sulfonamide Allergy Hives Verified 02/18/21 12:28 Antibiotics) Family History Brother CAD (coronary artery disease) Mother CVA (cerebral vascular accident) CAD (coronary artery disease) Son Hypertension Daughter Hypertension Other Arthritis Cancer Diabetes Family history of CVA Family history of coronary artery disease Family history of hypertension Heart disease High cholesterol Kidney disease Thyroid disorder Surgical History (Updated 02/21/21 @ 15:[address] Desmond Riojas MD) History of bilateral knee replacement History of cholecystectomy History of incision and drainage History of total hysterectomy Hx of cataract extraction Social History (Updated 02/21/21 @ 15:[address] Desmond Riojas MD) household members: spouse Smoking Status: Never smoker alcohol intake: never substance use type: does not use caffeine: Yes Type: tea what type of physical activity do you participate in: none seatbelt use: always do you feel safe at home: Yes additional social history: Does Not Take Aspirin Does Not Take Ibuprofen ROS Constitutional Constitutional: Denies chills, fever(s) or weight gain ENT HEENT: Denies headache(s), nasal congestion or nasal discharge Cardiovascular Cardiovascular: Denies chest pain or palpitations Respiratory/Chest Respiratory/Chest: Denies cough, excessive phlegm production or shortness of breath with exertion Gastrointestinal Gastrointestinal: Denies abdominal pain, nausea or vomiting Genitourinary Genitourinary: Denies dysuria Musculoskeletal Musculoskeletal: Denies joint pain or joint swelling Integumentary Integumentary: Denies rash or wounds Neurologic Neurologic: Denies focal weakness, numbness or tingling Psychiatric Psychiatric: Reports auditory hallucinations; Denies anxiety, depression, homicidal ideation or suicidal ideation Vital Signs Vital Signs Vital Signs: 02/21/21 15:08 Temperature 98.6 F Temperature Source Temporal Pulse Rate 79 Respiratory Rate 17 Blood Pressure 113/51 L Blood Pressure Mean 71 Blood Pressure Source Monitor Blood Pressure Position Sitting Blood Pressure Location Right Arm Pulse Ox 96 Oxygen Delivery Method Room Air Weight Weight: 104.7 kg Body Mass Index (BMI) 37.5 Physical Exam Const alert and oriented x3 General Appearance: cooperative HEENT normocephalic Eyes PERRL and EOMs intact bilaterally Neck supple, no JVD and no carotid bruits Resp normal respiratory effort, normal air movement and clear to auscultation bilaterally Cardio regular rate and regular rhythm GI normal to inspection, nondistended, normoactive bowel sounds, non-tender and non-distended Extremity normal capillary refill Extremity Narrative: Left lower extremity NIA wrap, wound VAC. General Extremity: Negative for edema Skin no rashes or lesions noted General Skin Exam: no breakdown Psych affect normal Appearance: appropriate Assessment & Plan Assessment/Plan (1) Debility: (2) Traumatic hematoma of left lower leg with infection: (3) Cellulitis of left lower extremity: (4) Factor 5 Leiden mutation, heterozygous: (5) Anxiety: (6) Osteoarthritis: (7) Atrial fibrillation: (8) Chronic kidney disease: (9) Depression: (10) Obstructive sleep apnea: (11) Deep vein thrombosis: (12) Hypertension: (13) Gastroesophageal reflux disease: (14) Hyperlipidemia: (15) Migraine: (16) Allergic rhinitis: (17) Hypokalemia: (18) Insomnia: PLAN: 71 year old female with below past medical history hospitalized infected traumatic hematoma left lower extremity underwent incision, debridement, VAC dressing 02/18/[address] Kent, admitted to TCU with debility, here for rehabilitation, strengthening, prior to discharge home with . * Debility - PT/OT. * Pain - Tylenol 1000MG Q6H PRN pain (1-5), Oxycodone 10MG Q4H PRN pain (6-10). * Bowel - Miralax 17GM daily, Senokot 1 tablet BID, Dulcolax 10MG daily PRN. * Adult immunization - Administer Prevnar 13, Pneumovax 23, COVID19 vaccine as appropriate. * DVT prophylaxis - Not necessary, already on Eliquis. * Migraine - Verapamil 240MG daily, Depakote 500MG QHS, Elavil 25MG QHS. * Factor V Leiden deficiency - Eliquis 5MG BID. * Vitamin D deficiency - D3 400IU daily. 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 * Infected traumatic hematoma left lower extremity status post debridement - Wound VAC, Doxycycline 100MG BID thru 03/03/2021, Levaquin 500MG daily thru 03/03/2021. * Allergic Rhinitis - Levocetirizine 5MG daily, Singulair 10MG daily. * Nutrition - MVI daily. * GERD - Pantoprazole 20MG daily. * Hypokalemia - KCL 20MEQ BIDCM. * Hyperlipidemia - Pravavastatin 80MG QHS. * Nausea - Promethazine 25MG Q4H PRN. 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
[2021-02-21] MEDS: Nystatin Powder 15gm Bottle 1 APPLIC TOPICAL (17:15)
[2021-02-21] MEDS: Potassium Chloride Oral Tablet 20 MEQ PO (17:15)
[2021-02-21] MEDS: Doxycycline 100 MG CAPSULE PO (17:15)
[2021-02-21] MEDS: Senna Tablet 1 TABLET PO (17:15)
[2021-02-21] MEDS: APIXABAN 5 MG TABLET PO (17:15)
[2021-02-21] MEDS: Zolpidem Tartrate 5 MG Tablet PO (22:48)
[2021-02-21] MEDS: Amitriptyline 25 MG Tablet PO (22:49)
[2021-02-21] MEDS: Pravastatin 80 MG Tablet PO (22:49)
[2021-02-21] MEDS: Divalproex (ER) 500 MG Tablet PO (22:49)
[2021-02-21] MEDS: Acetaminophen 500 MG Tablet 1000 MG PO (22:50)
[2021-02-22 05:49] VITALS: BP 113/61; PULSE 79; RESP 18; TEMP 36.8; O2SAT 95
[2021-02-22] MEDS: Polyethylene Glycol 3350 17 GM PACKET PO (05:55)
[2021-02-22] MEDS: Citalopram 40 MG TABLET PO (05:56)
[2021-02-22] MEDS: levoFLOXacin 500 MG Tablet PO (05:56)
[2021-02-22] MEDS: Montelukast 10 MG Tablet PO (05:56)
[2021-02-22] MEDS: Doxycycline 100 MG CAPSULE PO ×2 (05:56→17:32)
[2021-02-22] MEDS: Pantoprazole Sodium 20 MG Tablet PO (05:56)
[2021-02-22] MEDS: Nystatin Powder 15gm Bottle 1 APPLIC TOPICAL ×2 (05:56→17:38)
[2021-02-22] MEDS: APIXABAN 5 MG TABLET PO ×2 (05:56→17:32)
[2021-02-22] MEDS: Verapamil SR 240 MG Tablet PO (05:56)
[2021-02-22] MEDS: Senna Tablet 1 TABLET PO ×2 (05:57→17:32)
[2021-02-22 06:05] VITALS: RESP 18
[2021-02-22] MEDS: Potassium Chloride Oral Tablet 20 MEQ PO ×2 (08:37→17:32)
[2021-02-22] MEDS: Multivitamins,Therapeutic Tablet 1 TABLET PO (08:37)
[2021-02-22] MEDS: oxyCODONE 5 MG Tablet 10 MG PO ×2 (08:41→17:32)
[2021-02-22 10:00] VITALS: PULSE 84; RESP 15; O2SAT 93
[2021-02-22 10:07] LABS: Absolute Lymphocyte Count 0.77 X10^3/uL (0.83-4.51); Absolute Neutrophil Count 5.1 X10^3/uL (2.0-7.7); Basophil# 0.04 X10^3/uL; Basophil% 0.6 % (0-1); Eosinophil# 0.21 X10^3/uL; Eosinophils% 3.1 % (0-5); Lymphocyte # 0.77 X10^3/ul (0.83-4.51); Lymphocyte % 11.2 % (19-41); Mean Corp Hgb Conc 32.4 g/dL (32-36); Mean Corpuscular Hgb 29.9 pg (27.0-32.0); Mean Corpuscular Volume 92.4 fL (81-99); Mean Platelet Vol. 9.8 fl (6.2-12.0); Monocyte# 0.73 X10^3/uL; Monocyte% 10.7 % (0-10); NRBC Flagged by Analyzer 0 % (0-5); Neutrophil # 5.05 X10^3/uL (2.7-7.7); Neutrophil % 73.7 % (47-70); Platelet Count 233 K/mm3 (150-450); RBC Distribution Width CV 14.6 % (11.6-14.6); RBC Distribution Width SD 49.6 fl (35.1-43.9); Red Blood Count 3.68 M/mm3 (4.2-5.4); White Blood Count 6.9 K/mm3 (4.4-11.0)
[2021-02-22 10:38] LABS: Anion Gap 6 (5-15); BUN 26 mg/dL (7-18); BUN/Creat Ratio 26.9 RATIO (10-20); Calcium,Total 8.4 mg/dL (8.5-10.1); Chloride 104 mmol/L (98-107); Creatinine, Serum 0.97 mg/dL (0.55-1.02); EST Glomerular Filtration Rate 60 mL/min (>60); Est Glom Filt Rate - Afr Amer 73 mL/min (>60); Estimated Creatinine Clearance 40.85 ml/min; Glucose 88 mg/dL (74-106); Potassium 4.2 mmol/L (3.5-5.1); Sodium Level 137 mmol/L (136-145)
[2021-02-22] MEDS: Tuberculin,Purif.prot.deriv. 50 TU/ML Vial 0.1 ML ID (10:49)
--- NOTE | 2021-02-22 14:01 | NURSING ---
Updated Family in room
[2021-02-22 14:12] VITALS: BP 93/56; PULSE 79; RESP 17; TEMP 36.6; O2SAT 94
[2021-02-22] MEDS: Pravastatin 80 MG Tablet PO (21:16)
[2021-02-22] MEDS: Divalproex (ER) 500 MG Tablet PO (21:16)
[2021-02-22] MEDS: Amitriptyline 25 MG Tablet PO (21:17)
[2021-02-22] MEDS: Acetaminophen 500 MG Tablet 1000 MG PO (21:18)
[2021-02-23 05:35] VITALS: BP 95/48; PULSE 76; RESP 16; TEMP 36.4; O2SAT 94
[2021-02-23] MEDS: Senna Tablet 1 TABLET PO ×2 (05:49→17:39)
[2021-02-23] MEDS: Pantoprazole Sodium 20 MG Tablet PO (05:49)
[2021-02-23] MEDS: Montelukast 10 MG Tablet PO (05:49)
[2021-02-23] MEDS: levoFLOXacin 500 MG Tablet PO (05:49)
[2021-02-23] MEDS: Menthol/Lanolin/Calamine/Znox 113 GM Tube 1 APPLIC TOPICAL ×2 (05:50→17:40)
[2021-02-23] MEDS: APIXABAN 5 MG TABLET PO ×2 (05:50→17:39)
[2021-02-23] MEDS: Citalopram 40 MG TABLET PO (05:50)
[2021-02-23] MEDS: Doxycycline 100 MG CAPSULE PO ×2 (05:50→17:39)
[2021-02-23] MEDS: Nystatin Powder 15gm Bottle 1 APPLIC TOPICAL ×2 (05:51→17:39)
[2021-02-23] MEDS: Polyethylene Glycol 3350 17 GM PACKET PO (05:51)
[2021-02-23] MEDS: CETIRIZINE HCL 10 MG TABLET PO (05:51)
[2021-02-23] MEDS: proMETHazine 25 MG Tablet PO (08:35)
[2021-02-23] MEDS: Multivitamins,Therapeutic Tablet 1 TABLET PO (09:15)
[2021-02-23] MEDS: Potassium Chloride Oral Tablet 20 MEQ PO ×2 (09:15→17:39)
[2021-02-23] MEDS: Acetaminophen 500 MG Tablet 1000 MG PO ×2 (12:44→21:43)
[2021-02-23 12:55] VITALS: PULSE 89; RESP 18; O2SAT 97
[2021-02-23 16:07] VITALS: BP 101/58; PULSE 89; RESP 18; TEMP 36.9; O2SAT 97
[2021-02-23] MEDS: Zolpidem Tartrate 5 MG Tablet PO (21:43)
[2021-02-23] MEDS: Pravastatin 80 MG Tablet PO (21:44)
[2021-02-23] MEDS: Divalproex (ER) 500 MG Tablet PO (21:44)
[2021-02-23] MEDS: Amitriptyline 25 MG Tablet PO (21:45)
[2021-02-24 05:33] VITALS: BP 108/45; PULSE 76; RESP 16; TEMP 35.9; O2SAT 95
[2021-02-24] MEDS: Montelukast 10 MG Tablet PO (05:39)
[2021-02-24] MEDS: Menthol/Lanolin/Calamine/Znox 113 GM Tube 1 APPLIC TOPICAL ×2 (05:39→16:42)
[2021-02-24] MEDS: Citalopram 40 MG TABLET PO (05:39)
[2021-02-24] MEDS: APIXABAN 5 MG TABLET PO ×2 (05:39→16:41)
[2021-02-24] MEDS: Pantoprazole Sodium 20 MG Tablet PO (05:39)
[2021-02-24] MEDS: levoFLOXacin 500 MG Tablet PO (05:39)
[2021-02-24] MEDS: Doxycycline 100 MG CAPSULE PO ×2 (05:39→16:41)
[2021-02-24] MEDS: Nystatin Powder 15gm Bottle 1 APPLIC TOPICAL ×2 (05:40→22:32)
[2021-02-24] MEDS: CETIRIZINE HCL 10 MG TABLET PO (05:40)
[2021-02-24 06:21] VITALS: BP 110/48; PULSE 67
[2021-02-24] MEDS: Verapamil SR 240 MG Tablet PO (06:21)
[2021-02-24] MEDS: Potassium Chloride Oral Tablet 20 MEQ PO ×2 (08:31→16:41)
[2021-02-24] MEDS: Multivitamins,Therapeutic Tablet 1 TABLET PO (08:31)
[2021-02-24] MEDS: Acetaminophen 500 MG Tablet 1000 MG PO ×2 (10:26→22:29)
--- NOTE | 2021-02-24 10:28 | NURSING ---
wound photo: left anterolateral lower leg
--- NOTE | 2021-02-24 10:42 | NURSING ---
Pt asking how long she will have to stay in TCU. Informed pt that there will be a plan of care meeting this week and at that meeting they will discuss plans for discharge. the home VAC is approved at this time. will need to redo the paperwork if pt stays in TCU longer than 2 weeks.
--- NOTE | 2021-02-24 13:42 | CASEMGMT ---
Social Work Met with pt for initial assessment. Discussed Code Status and and MOLST form with pt. Pt wishes are for DNRCCA, no intubation and trial artificial nutrition. Nursing updated. MOLST communication to and placed on chart. Explained Medicare benefits and encouraged pt to contact secondary insurance to ensure copay coverage. Pt plans to return home at time of discharge and is caregiver for . SW will continue to follow. NYASIA Carty
--- NOTE | 2021-02-24 15:05 | CHAPLAIN ---
Type of Pastoral Visit _x__ Initial Visit ___ Follow-up Visit ___ On-call Visit ___ General Patient Visit ___ Spiritual Assessment ___ Family Conference ___ Bereavement ___ Rapid Response ___ Code Blue ___ Other (describe below) Pastoral Care Referral From _x__ Patient ___ Family ___ Nurse ___ Physician ___ Addressograph Operator ___ Mushroom Growth Media Mixer ___ Other (describe below) Sacrament/Intervention _x__ Active listening ___ Anointing ___ Mormonism ___ Bereavement ___ Communion _x__ Tammi exploration ___ ___ Life review _x__ Prayer ___ Reconciliation ___ Sacrament of Sick _x__ Supportive presence ___ Wedding ___ Other (describe below) Pastoral Comments patient is welcoming and talkative; pt just had a birthday; pt looks forward to going home when time comes; pt goal is just to have leg heal; pt is of Yazidi tammi and has only been involved in yazidi online in over a year; prayer welcomed
[2021-02-24 15:22] VITALS: BP 99/47; PULSE 74; RESP 16; TEMP 36.2; O2SAT 96
--- NOTE | 2021-02-24 16:16 | PHA.CONS_ITS ---
Progress Note - Pharmacy Subjective: TCU Admission Objective: Allergies cefdinir Allergy (Verified 02/18/21 12:28) Unknown diphenhydramine HCl [From Benadryl] Allergy (Verified 02/18/21 12:28) Hives Sulfa (Sulfonamide Antibiotics) Allergy (Verified 02/18/21 12:28) Hives Current Medications Generic Name Dose Route Start Last Admin Trade Name Freq PRN Reason Stop Dose Admin Acetaminophen 1,000 mg 02/21/21 16:10 02/24/21 10:26 Acetaminophen 500 Mg Tablet PO 1,000 mg Q6H PRN PRN Administration Pain Score 1-5 Amitriptyline HCl 25 mg 02/21/21 22:00 02/23/21 21:45 Amitriptyline 25 Mg Tablet PO 25 mg QHS BARRETT Administration Apixaban 5 mg 02/21/21 18:00 02/24/21 05:39 Apixaban 5 Mg Tablet PO 5 mg BID BARRETT Administration Bisacodyl 10 mg 02/21/21 16:10 Bisacodyl 5 Mg Tablet PO DAILY PRN Constipation Calamine/Phenol 1 applic 02/23/21 06:00 02/24/21 05:39 Menthol/Lanolin/Calamine/Znox 113 Gm Tube TOPICAL 1 applic BID BARRETT Administration Protocol Cetirizine HCl 10 mg 02/23/21 06:00 02/24/21 05:40 Cetirizine Hcl 10 Mg Tablet PO 10 mg DAILY BARRETT Administration Citalopram Hydrobromide 40 mg 02/22/21 06:00 02/24/21 05:39 Citalopram 40 Mg Tablet PO 40 mg DAILY BARRETT Administration Divalproex Sodium 500 mg 02/21/21 22:00 02/23/21 21:44 Divalproex (Er) 500 Mg Tablet PO 500 mg QHS BARRTET Administration Doxycycline Monohydrate 100 mg 02/21/21 18:00 02/24/21 05:39 Doxycycline 100 Mg Capsule PO 03/03/21 23:59 100 mg BID BARRETT Administration Levofloxacin 500 mg 02/22/21 06:00 02/24/21 05:39 Levofloxacin 500 Mg Tablet PO 03/03/21 23:59 500 mg DAILY BARRETT Administration Montelukast Sodium 10 mg 02/22/21 06:00 02/24/21 05:39 Montelukast 10 Mg Tablet PO 10 mg DAILY BARRETT Administration Multi-Ingredient Cream 1 applic 02/21/21 16:17 Mineral Oil/Petrolatum,White Jar TOPICAL BID PRN PRN Dry skin Protocol Multivitamins 1 tablet 02/22/21 08:00 02/24/21 08:31 Multivitamins,Therapeutic Tablet PO 1 tablet DAILYCM BARRETT Administration Nutritional Formula 1 packet 03/04/21 05:00 Nutritional Supplement (Mustapha) Packet PO BIDCM [facility] Nystatin 1 applic 02/21/21 18:00 02/24/21 05:40 Nystatin Powder 15gm Bottle TOPICAL 1 appful BID BARRETT Administration Protocol Oxycodone HCl 10 mg 02/21/21 16:11 02/22/21 17:32 Oxycodone 5 Mg Tablet PO 10 mg Q4H PRN Administration Pain Score 6-10 Pantoprazole Sodium 20 mg 02/22/21 06:00 02/24/21 05:39 Pantoprazole Sodium 20 Mg Tablet PO 20 mg DAILY BARRETT Administration Polyethylene Glycol 17 gm 02/22/21 06:00 02/24/21 05:40 Polyethylene Glycol 3350 17 Gm Packet PO Not Given DAILY BARRETT Potassium Chloride 20 meq 02/21/21 17:00 02/24/21 08:31 Potassium Chloride Oral Tablet 20 Meq PO 20 meq BIDCM BARRETT Administration Pravastatin Sodium 80 mg 02/21/21 22:00 02/23/21 21:44 Pravastatin 80 Mg Tablet PO 80 mg QHS [facility] Administration Promethazine HCl 25 mg 02/21/21 15:45 02/23/21 08:35 Promethazine 25 Mg Tablet PO 25 mg Q4H PRN PRN Administration NAUSEA/VOMITING Senna 1 tablet 02/21/21 18:00 02/24/21 05:40 Senna Tablet PO Not Given BID [facility] Tuberculin PPD 0.1 ml 03/01/21 10:00 Tuberculin,Purif.Prot.Deriv. 50 Tu/Ml Vial ID 03/01/21 10:01 X1 ONE Verapamil HCl 240 mg 02/22/21 06:00 02/24/21 06:21 Verapamil Sr 240 Mg Tablet PO 240 mg DAILY BARRETT Administration Zolpidem Tartrate 5 mg 02/21/21 15:56 02/23/21 21:43 Zolpidem Tartrate 5 Mg Tablet PO 5 mg QHS PRN Administration Sleep Problem List (Last Reviewed 02/21/21 @ 16:43 by Betsy Pedro) Insomnia (Acute) Hypokalemia (Acute) Allergic rhinitis (Acute) Migraine (Acute) Hyperlipidemia (Acute) Gastroesophageal reflux disease (Acute) Hypertension (Chronic) Deep vein thrombosis (Acute) Obstructive sleep apnea (Acute) Depression (Acute) Chronic kidney disease (Chronic) Atrial fibrillation (Acute) Osteoarthritis (Acute) Anxiety (Acute) Factor 5 Leiden mutation, heterozygous (Acute) Cellulitis of left lower extremity (Acute) Traumatic hematoma of left lower leg with infection (Acute) Debility (Acute) Vital Signs Temp Pulse Resp BP Pulse Ox 97.2 F L 74 16 99/47 L 96 02/24/21 15:22 02/24/21 15:22 02/24/21 15:22 02/24/21 15:22 02/24/21 15:22 Oxygen Flow Rate (L/min) 2 Oxygen Delivery Method Room Air Weight: 104.7 kg Body Mass Index (BMI) 42.2 Sodium 137 mmol/L (136-145) 02/22/21 09:56 Potassium 4.2 mmol/L (3.5-5.1) 02/22/21 09:56 Chloride 104 mmol/L (98-107) 02/22/21 09:56 Carbon Dioxide 27.0 mmol/L (21.0-32.0) 02/22/21 09:56 Anion Gap 6 (5-15) 02/22/21 09:56 BUN 26 mg/dL (7-18) H 02/22/21 09:56 Creatinine 0.97 mg/dL (0.55-1.02) 02/22/21 09:56 Est GFR (MDRD) Af Amer 73 mL/min (>60) 02/22/21 09:56 Est GFR (MDRD) Non-Af 60 mL/min (>60) 02/22/21 09:56 BUN/Creatinine Ratio 26.9 RATIO (10-20) H 02/22/21 09:56 Glucose 88 mg/dL (74-106) 02/22/21 09:56 Assessment/Plan: 1. Pain: acetaminophen 1000mg PO Q6H PRN pain 1-5/10 and oxycodone 10mg PO Q4H PRN pain 6-10/10. 2. Infected traumatic hematoma LLE s/p debridement: levofloxacin 500mg PO daily thru 03/03/21 and doxycycline 100mg PO BID thru 03/03/21. Please continue to monitor for S/S of infection, tendon pain, and diarrhea. 3. Factor V Leiden deficiency: apixaban 5mg PO BID. Please continue to monitor hemoglobin (last 11g/dL), S/S of bleeding/DVT/PE. 4. GERD: pantoprazole 40mg PO daily. Please continue to monitor for GERD and diarrhea. 5. Hypokalemia: potassium chloride 20mEq PO BIDCM. Please continue to monitor potassium levels (last 4.2mmol/L). *6. Hyperlipidemia: pravastatin 80mg PO QHS. Please consider ordering a lipid panel if clinically appropriate. Last level from 02/2013. Thanks. Please continue to monitor for muscle pain. 7. Nausea: promethazine 25mg PO Q4H PRN nausea/vomiting. Please continue to monitor for nausea and PRN usage. 8. Allergic rhinitis: cetirizine 10mg PO daily and montelukast 10mg PO daily. Please continue to monitor for allergic rhinitis and drowsiness. 9. Nutrition: multivitamin 1T PO DAILYCM. Please continue to monitor. Psychotropic Medications: 1. Depression: citalopram 40mg PO daily. Please see physician note regarding GDR. *2. Migraine: verapamil SR 240mg PO daily, amitriptyline 25mg PO QHS and divalproex ER 500mg PO QHS. Please consider ordering a valproic acid level if clinically appropriate. GDR not appropriate (amitriptyline for migraine). Please continue to monitor for migraine, nausea, BP (last 99/47) and HR (last 74). Please consider adding hold parameters to verapamil based on last BP. Thanks. 3. Insomnia: zolpidem 5mg PO QHS PRN sleep. Please see physician note regarding GDR. Please continue to monitor for insomnia. Unnecessary Medications: None Bowel Regimen: Miralax 17gm PO daily, senna 1T PO BID and bisacodyl 10mg PO daily PRN constipation. Please continue to monitor for constipation and PRN usage. Date of Note:: 02/24/21
[2021-02-24] MEDS: oxyCODONE 5 MG Tablet 10 MG PO (16:39)
[2021-02-24] MEDS: Zolpidem Tartrate 5 MG Tablet PO (22:29)
[2021-02-24] MEDS: Divalproex (ER) 500 MG Tablet PO (22:30)
[2021-02-24] MEDS: Pravastatin 80 MG Tablet PO (22:31)
[2021-02-24] MEDS: Amitriptyline 25 MG Tablet PO (22:31)
[2021-02-25 06:07] VITALS: BP 113/59; PULSE 75; RESP 16; TEMP 36.4; O2SAT 98
[2021-02-25] MEDS: Citalopram 40 MG TABLET PO (06:11)
[2021-02-25] MEDS: Verapamil SR 240 MG Tablet PO (06:11)
[2021-02-25] MEDS: levoFLOXacin 500 MG Tablet PO (06:12)
[2021-02-25] MEDS: CETIRIZINE HCL 10 MG TABLET PO (06:12)
[2021-02-25] MEDS: APIXABAN 5 MG TABLET PO ×2 (06:12→17:14)
[2021-02-25] MEDS: Montelukast 10 MG Tablet PO (06:12)
[2021-02-25] MEDS: Pantoprazole Sodium 20 MG Tablet PO (06:12)
[2021-02-25] MEDS: Doxycycline 100 MG CAPSULE PO ×2 (06:12→17:14)
[2021-02-25] MEDS: Nystatin Powder 15gm Bottle 1 APPLIC TOPICAL ×2 (06:13→20:15)
[2021-02-25] MEDS: Menthol/Lanolin/Calamine/Znox 113 GM Tube 1 APPLIC TOPICAL ×2 (06:13→17:14)
[2021-02-25] MEDS: Multivitamins,Therapeutic Tablet 1 TABLET PO (07:50)
[2021-02-25] MEDS: Potassium Chloride Oral Tablet 20 MEQ PO ×2 (07:50→17:14)
[2021-02-25 10:00] VITALS: PULSE 75; RESP 18; O2SAT 97
[2021-02-25] MEDS: Acetaminophen 500 MG Tablet 1000 MG PO ×2 (10:23→20:11)
[2021-02-25 13:38] VITALS: BP 105/89; PULSE 75; RESP 18; TEMP 36.7; O2SAT 98
[2021-02-25] MEDS: Clotrimazole 10 MG Troche MUCOUS MEM ×3 (14:45→20:12)
[2021-02-25] MEDS: Senna Tablet 1 TABLET PO (17:14)
[2021-02-25] MEDS: BMX LIQUID 180 ML PO (17:14)
[2021-02-25] MEDS: Divalproex (ER) 500 MG Tablet PO (20:12)
[2021-02-25] MEDS: Pravastatin 80 MG Tablet PO (20:12)
[2021-02-25] MEDS: Amitriptyline 25 MG Tablet PO (20:13)
[2021-02-25] MEDS: Zolpidem Tartrate 5 MG Tablet PO (20:19)
--- NOTE | 2021-02-25 21:37 | NURSING ---
O2 applied at 2l per nc in place of cpap, per pt request.
[2021-02-26 05:20] VITALS: BP 103/52; PULSE 74; RESP 16; TEMP 36; O2SAT 96
[2021-02-26] MEDS: Doxycycline 100 MG CAPSULE PO ×2 (05:21→20:44)
[2021-02-26] MEDS: levoFLOXacin 500 MG Tablet PO (05:22)
[2021-02-26] MEDS: Senna Tablet 1 TABLET PO ×2 (05:22→16:45)
[2021-02-26] MEDS: CETIRIZINE HCL 10 MG TABLET PO (05:22)
[2021-02-26] MEDS: Clotrimazole 10 MG Troche MUCOUS MEM ×5 (05:22→20:46)
[2021-02-26] MEDS: Verapamil SR 240 MG Tablet PO (05:22)
[2021-02-26] MEDS: Citalopram 40 MG TABLET PO (05:22)
[2021-02-26] MEDS: Pantoprazole Sodium 20 MG Tablet PO (05:22)
[2021-02-26] MEDS: APIXABAN 5 MG TABLET PO ×2 (05:22→16:45)
[2021-02-26] MEDS: Montelukast 10 MG Tablet PO (05:22)
[2021-02-26] MEDS: Nystatin Powder 15gm Bottle 1 APPLIC TOPICAL ×2 (05:27→20:46)
[2021-02-26] MEDS: Menthol/Lanolin/Calamine/Znox 113 GM Tube 1 APPLIC TOPICAL ×2 (05:27→16:45)
[2021-02-26] MEDS: Polyethylene Glycol 3350 17 GM PACKET PO (05:28)
[2021-02-26] MEDS: proMETHazine 25 MG Tablet PO (06:44)
[2021-02-26 08:04] VITALS: O2SAT 100
[2021-02-26] MEDS: Potassium Chloride Oral Tablet 20 MEQ PO ×2 (08:11→16:45)
[2021-02-26] MEDS: Multivitamins,Therapeutic Tablet 1 TABLET PO (08:11)
[2021-02-26] MEDS: Acetaminophen 500 MG Tablet 1000 MG PO ×2 (09:56→16:44)
--- NOTE | 2021-02-26 13:35 | CASEMGMT ---
BIMS and PHQ-9 completed this date. TRISTIN Olea
[2021-02-26 13:42] VITALS: BP 115/70; PULSE 80; RESP 16; TEMP 36.4; O2SAT 96
--- NOTE | 2021-02-26 13:44 | CASEMGMT ---
Plan of care meeting held on this date with pt, her son Eduin and his present. Pt dgt was on conference call. Pt is progressing with PT and OT. Pt does have a wound vac which may not be discontinued prior to discharge home. 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 Pt is agreeable to further therapy if needed at time of discharge and SW will follow for home health vs. outpt recommendations. Pt does have a wheelchair and a shower chair. Medicare coverage has been explained to pt. No discharge date set at this time, will continue with care plan. SW to follow for d/c planning and emotional support. NYASIA Carty
[2021-02-26] MEDS: Pravastatin 80 MG Tablet PO (20:44)
[2021-02-26] MEDS: Amitriptyline 25 MG Tablet PO (20:44)
[2021-02-26] MEDS: Divalproex (ER) 500 MG Tablet PO (20:44)
[2021-02-27 04:01] VITALS: BP 152/77; PULSE 81; RESP 18; TEMP 36.9; O2SAT 97
[2021-02-27] MEDS: Acetaminophen 500 MG Tablet 1000 MG PO ×3 (04:05→22:02)
[2021-02-27 05:55] VITALS: BP 128/60; PULSE 74; RESP 18; O2SAT 98
[2021-02-27] MEDS: Senna Tablet 1 TABLET PO ×2 (05:56→18:10)
[2021-02-27] MEDS: Montelukast 10 MG Tablet PO (05:56)
[2021-02-27] MEDS: Pantoprazole Sodium 20 MG Tablet PO (05:56)
[2021-02-27] MEDS: Verapamil SR 240 MG Tablet PO (05:56)
[2021-02-27] MEDS: Polyethylene Glycol 3350 17 GM PACKET PO (05:56)
[2021-02-27] MEDS: Citalopram 40 MG TABLET PO (05:56)
[2021-02-27] MEDS: APIXABAN 5 MG TABLET PO ×2 (05:56→18:10)
[2021-02-27] MEDS: CETIRIZINE HCL 10 MG TABLET PO (05:56)
[2021-02-27] MEDS: Clotrimazole 10 MG Troche MUCOUS MEM ×5 (05:57→21:57)
[2021-02-27] MEDS: Menthol/Lanolin/Calamine/Znox 113 GM Tube 1 APPLIC TOPICAL ×2 (06:05→18:11)
[2021-02-27] MEDS: Nystatin Powder 15gm Bottle 1 APPLIC TOPICAL ×2 (06:05→21:57)
[2021-02-27] MEDS: Multivitamins,Therapeutic Tablet 1 TABLET PO (08:20)
[2021-02-27] MEDS: Potassium Chloride Oral Tablet 20 MEQ PO ×2 (08:20→18:09)
[2021-02-27] MEDS: Doxycycline 100 MG CAPSULE PO ×2 (10:39→21:56)
[2021-02-27] MEDS: levoFLOXacin 500 MG Tablet PO (10:39)
[2021-02-27 10:55] LABS: Bedside Glucose 106 mg/dL (70-110)
[2021-02-27 13:42] VITALS: BP 110/57; PULSE 76; RESP 18; TEMP 36.2; O2SAT 97
--- NOTE | 2021-02-27 13:49 | MDS.RN ---
Completed pain interview for [place] 02/28/21
--- NOTE | 2021-02-27 15:00 | CHAPLAIN ---
Type of Pastoral Visit ___ Initial Visit _x__ Follow-up Visit ___ On-call Visit ___ General Patient Visit ___ Spiritual Assessment ___ Family Conference ___ Bereavement ___ Rapid Response ___ Code Blue ___ Other (describe below) Pastoral Care Referral From _x__ Patient ___ Family ___ Nurse ___ Physician ___ Chick Room Supervisor ___ Inspecting And Testing Lead Hand ___ Other (describe below) Sacrament/Intervention _x__ Active listening ___ Anointing ___ Orthodoxy ___ Bereavement ___ Communion ___ Tammi exploration ___ _x__ Life review _x__ Prayer ___ Reconciliation ___ Sacrament of Sick _x__ Supportive presence ___ Wedding ___ Other (describe below) Pastoral Comments
[2021-02-27] MEDS: Divalproex (ER) 500 MG Tablet PO (21:56)
[2021-02-27] MEDS: Amitriptyline 25 MG Tablet PO (21:57)
[2021-02-27] MEDS: Pravastatin 80 MG Tablet PO (21:58)
[2021-02-28 01:00] VITALS: BP 124/61; PULSE 78; RESP 16; TEMP 36.6; O2SAT 95
[2021-02-28] MEDS: Polyethylene Glycol 3350 17 GM PACKET PO (06:34)
[2021-02-28] MEDS: Clotrimazole 10 MG Troche MUCOUS MEM ×5 (06:34→22:54)
[2021-02-28] MEDS: APIXABAN 5 MG TABLET PO ×2 (06:34→17:08)
[2021-02-28] MEDS: Senna Tablet 1 TABLET PO ×2 (06:35→17:08)
[2021-02-28] MEDS: Citalopram 40 MG TABLET PO (06:35)
[2021-02-28] MEDS: Verapamil SR 240 MG Tablet PO (06:35)
[2021-02-28] MEDS: Nystatin Powder 15gm Bottle 1 APPLIC TOPICAL ×2 (06:35→22:54)
[2021-02-28] MEDS: CETIRIZINE HCL 10 MG TABLET PO (06:35)
[2021-02-28] MEDS: Pantoprazole Sodium 20 MG Tablet PO (06:35)
[2021-02-28] MEDS: Menthol/Lanolin/Calamine/Znox 113 GM Tube 1 APPLIC TOPICAL ×2 (06:35→17:08)
[2021-02-28] MEDS: Montelukast 10 MG Tablet PO (06:38)
[2021-02-28] MEDS: Potassium Chloride Oral Tablet 20 MEQ PO ×2 (09:17→17:08)
[2021-02-28] MEDS: levoFLOXacin 500 MG Tablet PO (09:18)
[2021-02-28] MEDS: Multivitamins,Therapeutic Tablet 1 TABLET PO (09:18)
[2021-02-28] MEDS: Doxycycline 100 MG CAPSULE PO ×2 (09:18→22:51)
[2021-02-28] MEDS: Acetaminophen 500 MG Tablet 1000 MG PO ×3 (10:54→22:49)
[2021-02-28 13:00] VITALS: BP 96/48; PULSE 69; RESP 16; TEMP 36.3; O2SAT 99
--- NOTE | 2021-02-28 17:23 | PCM.PN.SRG ---
Subjective Subjective Postop #10 Patient sitting up in chair. Denies complaint of pain. Tolerating wound VAC well. Objective Data Objective Data Vital Signs: Vital Signs Temp Pulse Resp BP Pulse Ox 97.3 F L 69 16 96/48 L 99 02/28/21 13:00 02/28/21 13:00 02/28/21 13:00 02/28/21 13:00 02/28/21 13:00 Oxygen Flow Rate (L/min) 2 Oxygen Delivery Method Room Air Weight: 228 lb 3 oz Body Mass Index (BMI) 42.2 Intake & Output: Intake and Output for Last 24 Hours 02/26/21 02/27/21 02/28/21 23:59 23:59 23:59 Intake Total 600 / 600 360 / 360 480 / 480 Balance 600 / 600 360 / 360 480 / 480 Lab / Micro Data Result Diagrams: 02/22/21 09:56 02/22/21 09:56 Micro: Microbiology 02/24/21 11:25 Mucosa - Nose SARS-CoV-2 Antigen (Rapid) - Final Physical Exam Const oriented x3 Resp normal respiratory effort Cardio regular rate GI normal to inspection, nondistended, normoactive bowel sounds Extremity Extremity Narrative: Left anterior leg wound is beefy pink. No bleeding. Wound VAC dressing changed today by wound nurse. Bilateral lower extremity edema +3. Bilateral pedal pulses palpable. Assessment & Plan Assessment/Plan (1) Hematoma of left lower extremity: (2) 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 lower leg with complication: (3) Skin necrosis: (4) Cellulitis of left lower leg: (5) Factor 5 Leiden mutation, heterozygous: PLAN: Hematoma wound left anterolateral leg is improved. No active bleeding noted. VAC dressing changed today. She is tolerating it well. To be changed three times per week at 150 mmHg continuous suction. Continue compression lui wrap of bilateral lower legs due to edema. Patient may ambulate with assist. Minimize standing. When sitting, elevate left leg. Operative culture shows Pseudomonas aeroginosa. Will begin Levaquin and stop the Cleocin. Prealbumin was 15.9. Encourage nutritional supplementation with protein to help the healing process. After discharge from TCU, followup at the [facility]. If there is a plateau in the healing process, may proceed with delayed closure with skin grafting. Charges/Coding Procedures Integumentary [id number]: [id number] Global Visit
[2021-02-28 17:56] VITALS: BP 115/64; PULSE 72
[2021-02-28] MEDS: Zolpidem Tartrate 5 MG Tablet PO (22:49)
[2021-02-28] MEDS: Divalproex (ER) 500 MG Tablet PO (22:50)
[2021-02-28] MEDS: Amitriptyline 25 MG Tablet PO (22:52)
[2021-02-28] MEDS: Pravastatin 80 MG Tablet PO (22:53)
[2021-03-01 05:00] VITALS: BP 119/65; PULSE 73; RESP 16; TEMP 36.7; O2SAT 98
[2021-03-01] MEDS: CETIRIZINE HCL 10 MG TABLET PO (06:14)
[2021-03-01] MEDS: Montelukast 10 MG Tablet PO (06:14)
[2021-03-01] MEDS: Citalopram 40 MG TABLET PO (06:14)
[2021-03-01] MEDS: Verapamil SR 240 MG Tablet PO (06:14)
[2021-03-01] MEDS: Pantoprazole Sodium 20 MG Tablet PO (06:14)
[2021-03-01] MEDS: Menthol/Lanolin/Calamine/Znox 113 GM Tube 1 APPLIC TOPICAL ×2 (06:15→17:30)
[2021-03-01] MEDS: Polyethylene Glycol 3350 17 GM PACKET PO (06:15)
[2021-03-01] MEDS: Nystatin Powder 15gm Bottle 1 APPLIC TOPICAL ×2 (06:15→21:55)
[2021-03-01] MEDS: Clotrimazole 10 MG Troche MUCOUS MEM ×5 (06:15→21:55)
[2021-03-01] MEDS: APIXABAN 5 MG TABLET PO ×2 (06:15→17:29)
[2021-03-01] MEDS: Senna Tablet 1 TABLET PO ×2 (06:16→17:28)
[2021-03-01 06:22] LABS: Absolute Lymphocyte Count 1.17 X10^3/uL (0.83-4.51); Absolute Neutrophil Count 2.6 X10^3/uL (2.0-7.7); Basophil# 0.04 X10^3/uL; Basophil% 0.9 % (0-1); Eosinophil# 0.16 X10^3/uL; Eosinophils% 3.4 % (0-5); Hematocrit 30.7 % (37-47); Hemoglobin 9.9 g/dL (12.0-15.0); Lymphocyte # 1.17 X10^3/ul (0.83-4.51); Lymphocyte % 25.1 % (19-41); Mean Corp Hgb Conc 32.2 g/dL (32-36); Mean Corpuscular Hgb 29.3 pg (27.0-32.0); Mean Corpuscular Volume 90.8 fL (81-99); Monocyte# 0.61 X10^3/uL; Monocyte% 13.1 % (0-10); NRBC Flagged by Analyzer 0 % (0-5); Neutrophil # 2.64 X10^3/uL (2.7-7.7); Neutrophil % 56.6 % (47-70); Platelet Count 240 K/mm3 (150-450); RBC Distribution Width CV 14.9 % (11.6-14.6); RBC Distribution Width SD 49.9 fl (35.1-43.9); Red Blood Count 3.38 M/mm3 (4.2-5.4); White Blood Count 4.7 K/mm3 (4.4-11.0)
[2021-03-01 06:56] LABS: Anion Gap 3 (5-15); BUN 17 mg/dL (7-18); BUN/Creat Ratio 22.2 RATIO (10-20); Calcium,Total 8.3 mg/dL (8.5-10.1); Chloride 107 mmol/L (98-107); Creatinine, Serum 0.77 mg/dL (0.55-1.02); EST Glomerular Filtration Rate 79 mL/min (>60); Est Glom Filt Rate - Afr Amer 95 mL/min (>60); Estimated Creatinine Clearance 39.63 ml/min; Glucose 82 mg/dL (74-106); Potassium 3.9 mmol/L (3.5-5.1); Sodium Level 140 mmol/L (136-145)
[2021-03-01 07:55] VITALS: O2SAT 98
[2021-03-01] MEDS: Multivitamins,Therapeutic Tablet 1 TABLET PO (08:01)
[2021-03-01] MEDS: Potassium Chloride Oral Tablet 20 MEQ PO ×2 (08:01→17:28)
[2021-03-01 09:48] VITALS: PULSE 88; RESP 16; O2SAT 99
[2021-03-01] MEDS: Tuberculin,Purif.prot.deriv. 50 TU/ML Vial 0.1 ML ID (10:35)
[2021-03-01] MEDS: levoFLOXacin 500 MG Tablet PO (10:35)
[2021-03-01] MEDS: Doxycycline 100 MG CAPSULE PO ×2 (10:35→21:56)
[2021-03-01 13:52] VITALS: BP 105/68; PULSE 77; RESP 16; TEMP 36.2; O2SAT 97
[2021-03-01] MEDS: Zolpidem Tartrate 5 MG Tablet PO (21:52)
[2021-03-01] MEDS: Acetaminophen 500 MG Tablet 1000 MG PO (21:52)
[2021-03-01] MEDS: Divalproex (ER) 500 MG Tablet PO (21:53)
--- NOTE | 2021-03-01 21:55 | NURSING ---
Wound vac canister w/ small amount of serosanguineous drainage since changed earlier today. No leak noted in closed system.
[2021-03-01] MEDS: Pravastatin 80 MG Tablet PO (21:56)
[2021-03-01] MEDS: Amitriptyline 25 MG Tablet PO (21:57)
[2021-03-02 06:20] VITALS: BP 118/61; PULSE 73; RESP 16; TEMP 36.6; O2SAT 95
[2021-03-02] MEDS: Pantoprazole Sodium 20 MG Tablet PO (06:22)
[2021-03-02] MEDS: Citalopram 40 MG TABLET PO (06:22)
[2021-03-02] MEDS: Menthol/Lanolin/Calamine/Znox 113 GM Tube 1 APPLIC TOPICAL ×2 (06:22→17:36)
[2021-03-02] MEDS: Polyethylene Glycol 3350 17 GM PACKET PO (06:23)
[2021-03-02] MEDS: APIXABAN 5 MG TABLET PO ×2 (06:23→16:36)
[2021-03-02] MEDS: Nystatin Powder 15gm Bottle 1 APPLIC TOPICAL ×2 (06:23→22:27)
[2021-03-02] MEDS: Verapamil SR 240 MG Tablet PO (06:23)
[2021-03-02] MEDS: CETIRIZINE HCL 10 MG TABLET PO (06:23)
[2021-03-02] MEDS: Montelukast 10 MG Tablet PO (06:23)
[2021-03-02] MEDS: Senna Tablet 1 TABLET PO (06:24)
[2021-03-02] MEDS: Clotrimazole 10 MG Troche MUCOUS MEM ×5 (06:24→22:27)
[2021-03-02 07:58] VITALS: O2SAT 92
[2021-03-02] MEDS: Multivitamins,Therapeutic Tablet 1 TABLET PO (08:48)
[2021-03-02] MEDS: Potassium Chloride Oral Tablet 20 MEQ PO ×2 (08:48→16:36)
[2021-03-02] MEDS: Doxycycline 100 MG CAPSULE PO ×2 (11:22→22:28)
[2021-03-02] MEDS: levoFLOXacin 500 MG Tablet PO (11:22)
[2021-03-02 16:02] VITALS: BP 126/64; PULSE 75; RESP 16; TEMP 36.8; O2SAT 98
[2021-03-02] MEDS: Acetaminophen 500 MG Tablet 1000 MG PO (16:30)
[2021-03-02] MEDS: Zolpidem Tartrate 5 MG Tablet PO (22:27)
[2021-03-02] MEDS: Amitriptyline 25 MG Tablet PO (22:28)
[2021-03-02] MEDS: Divalproex (ER) 500 MG Tablet PO (22:29)
[2021-03-02] MEDS: Pravastatin 80 MG Tablet PO (22:30)
--- NOTE | 2021-03-02 23:00 | NURSING ---
Wound vac w/ blockage alert. Canister approximately 1/4 full of serosanguineous drainage. No blood clots or sediment noted in tubing or canister. Canister changed and unsuccessful as pressure only reached 100 mmHg. Black foam removed. Left adaptic in place to base of wound bed. Wet-to-dry dressing using NS applied to wound bed w/ one piece of kerlix, covered w/ two ABDs, wrapped w/ kerlix, and secured w/ tape. Pt tolerated well. LLE elevated on a soft pillow. NIA wrap removed for the night.
[2021-03-02] MEDS: oxyCODONE 5 MG Tablet 10 MG PO (23:13)
[2021-03-03] MEDS: Menthol/Lanolin/Calamine/Znox 113 GM Tube 1 APPLIC TOPICAL ×2 (06:45→15:29)
[2021-03-03] MEDS: Polyethylene Glycol 3350 17 GM PACKET PO (06:46)
[2021-03-03] MEDS: CETIRIZINE HCL 10 MG TABLET PO (06:49)
[2021-03-03] MEDS: Citalopram 40 MG TABLET PO (06:49)
[2021-03-03] MEDS: Pantoprazole Sodium 20 MG Tablet PO (06:49)
[2021-03-03] MEDS: Montelukast 10 MG Tablet PO (06:49)
[2021-03-03 06:50] VITALS: BP 98/47; PULSE 75; RESP 16; TEMP 36.3; O2SAT 98
[2021-03-03] MEDS: Nystatin Powder 15gm Bottle 1 APPLIC TOPICAL ×2 (06:50→20:41)
[2021-03-03] MEDS: Clotrimazole 10 MG Troche MUCOUS MEM ×5 (06:50→20:40)
[2021-03-03] MEDS: APIXABAN 5 MG TABLET PO ×2 (06:51→17:46)
--- NOTE | 2021-03-03 07:48 | NURSING ---
Held Verapamil ER this am d/t low bp at 98/47. Denies any c/o dizziness or lightheadeness.
[2021-03-03] MEDS: Potassium Chloride Oral Tablet 20 MEQ PO ×2 (08:18→17:45)
[2021-03-03] MEDS: Multivitamins,Therapeutic Tablet 1 TABLET PO (08:18)
[2021-03-03] MEDS: Verapamil SR 240 MG Tablet PO (08:20)
[2021-03-03 08:21] VITALS: BP 113/58; PULSE 80
[2021-03-03] MEDS: Doxycycline 100 MG CAPSULE PO ×2 (10:43→20:38)
[2021-03-03] MEDS: levoFLOXacin 500 MG Tablet PO (10:43)
[2021-03-03] MEDS: Acetaminophen 500 MG Tablet 1000 MG PO ×2 (10:55→20:47)
--- NOTE | 2021-03-03 14:13 | NURSING ---
wound photo: left lower leg
[2021-03-03] MEDS: oxyCODONE 5 MG Tablet 10 MG PO (14:23)
[2021-03-03 14:59] VITALS: BP 106/54; PULSE 77; RESP 16; TEMP 36.2; O2SAT 96
[2021-03-03] MEDS: Senna Tablet 1 TABLET PO (17:46)
[2021-03-03] MEDS: Divalproex (ER) 500 MG Tablet PO (20:38)
[2021-03-03] MEDS: Amitriptyline 25 MG Tablet PO (20:39)
[2021-03-03] MEDS: Pravastatin 80 MG Tablet PO (20:40)
[2021-03-03] MEDS: Zolpidem Tartrate 5 MG Tablet PO (20:47)
[2021-03-04] MEDS: Menthol/Lanolin/Calamine/Znox 113 GM Tube 1 APPLIC TOPICAL ×2 (04:53→17:22)
[2021-03-04] MEDS: Verapamil SR 240 MG Tablet PO (04:53)
[2021-03-04] MEDS: Citalopram 40 MG TABLET PO (04:54)
[2021-03-04] MEDS: Polyethylene Glycol 3350 17 GM PACKET PO (04:54)
[2021-03-04] MEDS: Clotrimazole 10 MG Troche MUCOUS MEM ×5 (04:54→20:34)
[2021-03-04] MEDS: Pantoprazole Sodium 20 MG Tablet PO (04:55)
[2021-03-04] MEDS: Nystatin Powder 15gm Bottle 1 APPLIC TOPICAL ×2 (04:55→20:34)
[2021-03-04] MEDS: APIXABAN 5 MG TABLET PO ×2 (04:56→17:22)
[2021-03-04] MEDS: Montelukast 10 MG Tablet PO (04:56)
[2021-03-04] MEDS: CETIRIZINE HCL 10 MG TABLET PO (04:56)
[2021-03-04 05:06] VITALS: BP 122/61; PULSE 77; RESP 16; TEMP 36.6; O2SAT 95
[2021-03-04 05:51] LABS: Hematocrit 30.5 % (37-47); Hemoglobin 9.6 g/dL (12.0-15.0)
[2021-03-04] MEDS: Multivitamins,Therapeutic Tablet 1 TABLET PO (08:23)
[2021-03-04] MEDS: Potassium Chloride Oral Tablet 20 MEQ PO ×2 (08:23→16:22)
[2021-03-04] MEDS: Iron Polysaccharide Complex 150 MG CAPSULE PO (09:59)
[2021-03-04 14:09] VITALS: O2SAT 91
[2021-03-04] MEDS: Acetaminophen 500 MG Tablet 1000 MG PO ×2 (14:31→20:33)
--- NOTE | 2021-03-04 14:39 | MDS.RN ---
Information for the mds was obtained from review of the clinical record, interview of resident, staff, and direct observation of resident's care.
[2021-03-04 20:22] VITALS: PULSE 78; RESP 16; O2SAT 92
[2021-03-04] MEDS: Zolpidem Tartrate 5 MG Tablet PO (20:32)
[2021-03-04] MEDS: Divalproex (ER) 500 MG Tablet PO (20:33)
[2021-03-04] MEDS: Amitriptyline 25 MG Tablet PO (20:34)
[2021-03-04] MEDS: Pravastatin 80 MG Tablet PO (20:35)
[2021-03-05 05:00] VITALS: BP 111/52; PULSE 73; RESP 16; TEMP 36.4; O2SAT 97
[2021-03-05] MEDS: Polyethylene Glycol 3350 17 GM PACKET PO (06:54)
[2021-03-05] MEDS: Verapamil SR 240 MG Tablet PO (06:54)
[2021-03-05] MEDS: Senna Tablet 1 TABLET PO (06:54)
[2021-03-05] MEDS: APIXABAN 5 MG TABLET PO ×2 (06:54→17:25)
[2021-03-05] MEDS: Citalopram 40 MG TABLET PO (06:54)
[2021-03-05] MEDS: Montelukast 10 MG Tablet PO (06:54)
[2021-03-05] MEDS: Nystatin Powder 15gm Bottle 1 APPLIC TOPICAL ×2 (06:55→20:45)
[2021-03-05] MEDS: Clotrimazole 10 MG Troche MUCOUS MEM ×5 (06:55→20:45)
[2021-03-05] MEDS: Menthol/Lanolin/Calamine/Znox 113 GM Tube 1 APPLIC TOPICAL ×2 (06:55→17:25)
[2021-03-05] MEDS: Pantoprazole Sodium 20 MG Tablet PO (06:55)
[2021-03-05] MEDS: CETIRIZINE HCL 10 MG TABLET PO (06:55)
[2021-03-05] MEDS: Multivitamins,Therapeutic Tablet 1 TABLET PO (08:52)
[2021-03-05] MEDS: Potassium Chloride Oral Tablet 20 MEQ PO ×2 (08:52→17:25)
[2021-03-05] MEDS: Iron Polysaccharide Complex 150 MG CAPSULE PO (08:52)
[2021-03-05] MEDS: oxyCODONE 5 MG Tablet 10 MG PO (13:47)
--- NOTE | 2021-03-05 14:45 | NURSING ---
Pt tolerated wound VAC change well.
[2021-03-05 16:00] VITALS: BP 109/59; PULSE 72; RESP 18; TEMP 36.3; O2SAT 96
[2021-03-05] MEDS: Acetaminophen 500 MG Tablet 1000 MG PO (20:44)
[2021-03-05] MEDS: Zolpidem Tartrate 5 MG Tablet PO (20:44)
[2021-03-05] MEDS: Divalproex (ER) 500 MG Tablet PO (20:45)
[2021-03-05] MEDS: Amitriptyline 25 MG Tablet PO (20:45)
[2021-03-05] MEDS: Pravastatin 80 MG Tablet PO (20:46)
[2021-03-06 05:00] VITALS: BP 138/63; PULSE 70; RESP 16; TEMP 36.5; O2SAT 96
[2021-03-06] MEDS: Polyethylene Glycol 3350 17 GM PACKET PO (05:56)
[2021-03-06 05:58] LABS: Hematocrit 28.8 % (37-47); Hemoglobin 9.3 g/dL (12.0-15.0)
[2021-03-06] MEDS: APIXABAN 5 MG TABLET PO ×2 (05:58→18:09)
[2021-03-06] MEDS: Senna Tablet 1 TABLET PO ×2 (05:58→18:08)
[2021-03-06] MEDS: Clotrimazole 10 MG Troche MUCOUS MEM ×4 (05:58→20:41)
[2021-03-06] MEDS: Pantoprazole Sodium 20 MG Tablet PO (05:58)
[2021-03-06] MEDS: Montelukast 10 MG Tablet PO (05:58)
[2021-03-06] MEDS: Citalopram 40 MG TABLET PO (05:58)
[2021-03-06] MEDS: Verapamil SR 240 MG Tablet PO (05:58)
[2021-03-06] MEDS: CETIRIZINE HCL 10 MG TABLET PO (05:59)
[2021-03-06] MEDS: Menthol/Lanolin/Calamine/Znox 113 GM Tube 1 APPLIC TOPICAL ×2 (05:59→18:09)
[2021-03-06] MEDS: Nystatin Powder 15gm Bottle 1 APPLIC TOPICAL ×2 (05:59→20:55)
[2021-03-06] MEDS: Iron Polysaccharide Complex 150 MG CAPSULE PO (08:05)
[2021-03-06] MEDS: Multivitamins,Therapeutic Tablet 1 TABLET PO (08:05)
[2021-03-06] MEDS: Potassium Chloride Oral Tablet 20 MEQ PO ×2 (08:05→18:09)
[2021-03-06 10:00] VITALS: PULSE 71; RESP 18; O2SAT 94
[2021-03-06] MEDS: Acetaminophen 500 MG Tablet 1000 MG PO ×2 (10:45→20:37)
[2021-03-06 16:00] VITALS: BP 111/53; PULSE 68; RESP 16; TEMP 36.6; O2SAT 94
[2021-03-06] MEDS: Zolpidem Tartrate 5 MG Tablet PO (20:36)
[2021-03-06] MEDS: Divalproex (ER) 500 MG Tablet PO (20:40)
[2021-03-06] MEDS: Amitriptyline 25 MG Tablet PO (20:40)
[2021-03-06] MEDS: Pravastatin 80 MG Tablet PO (20:41)
[2021-03-07 05:00] VITALS: BP 126/58; PULSE 88; RESP 16; TEMP 36.2; O2SAT 92
[2021-03-07] MEDS: Clotrimazole 10 MG Troche MUCOUS MEM ×5 (05:55→22:24)
[2021-03-07] MEDS: APIXABAN 5 MG TABLET PO ×2 (05:55→16:41)
[2021-03-07] MEDS: Senna Tablet 1 TABLET PO (05:55)
[2021-03-07] MEDS: Polyethylene Glycol 3350 17 GM PACKET PO (05:55)
[2021-03-07] MEDS: Pantoprazole Sodium 20 MG Tablet PO (05:55)
[2021-03-07] MEDS: CETIRIZINE HCL 10 MG TABLET PO (05:56)
[2021-03-07] MEDS: Montelukast 10 MG Tablet PO (05:56)
[2021-03-07] MEDS: Verapamil SR 240 MG Tablet PO (05:56)
[2021-03-07] MEDS: Citalopram 40 MG TABLET PO (05:56)
[2021-03-07] MEDS: Menthol/Lanolin/Calamine/Znox 113 GM Tube 1 APPLIC TOPICAL ×2 (05:59→16:41)
[2021-03-07] MEDS: Nystatin Powder 15gm Bottle 1 APPLIC TOPICAL ×2 (06:00→22:24)
[2021-03-07] MEDS: Iron Polysaccharide Complex 150 MG CAPSULE PO (08:22)
[2021-03-07] MEDS: Multivitamins,Therapeutic Tablet 1 TABLET PO (08:23)
[2021-03-07] MEDS: Potassium Chloride Oral Tablet 20 MEQ PO ×2 (08:23→16:40)
--- NOTE | 2021-03-07 11:05 | NURSING ---
Ultrasound called and adv that Viola has had a hx of a total hysterectomy and they may not find anything. Dr. amaro updated and cancelled Ultrasound. Spoke with pt she has not had any bleeding other then that one time 03/06/21 will continue to monitor pt for bleeding.
[2021-03-07] MEDS: oxyCODONE 5 MG Tablet 10 MG PO (12:43)
[2021-03-07 15:04] VITALS: BP 136/58; PULSE 80; RESP 16; TEMP 36.6; O2SAT 94
[2021-03-07] MEDS: Acetaminophen 500 MG Tablet 1000 MG PO (18:34)
[2021-03-07] MEDS: Divalproex (ER) 500 MG Tablet PO (22:23)
[2021-03-07] MEDS: Zolpidem Tartrate 5 MG Tablet PO (22:23)
[2021-03-07] MEDS: Amitriptyline 25 MG Tablet PO (22:23)
[2021-03-07] MEDS: Pravastatin 80 MG Tablet PO (22:24)
[2021-03-08 06:32] VITALS: BP 119/57; PULSE 68; RESP 16; TEMP 36.8; O2SAT 93
[2021-03-08] MEDS: Senna Tablet 1 TABLET PO ×2 (06:35→17:53)
[2021-03-08] MEDS: APIXABAN 5 MG TABLET PO ×2 (06:35→17:53)
[2021-03-08] MEDS: Citalopram 40 MG TABLET PO (06:35)
[2021-03-08] MEDS: Polyethylene Glycol 3350 17 GM PACKET PO (06:35)
[2021-03-08] MEDS: Montelukast 10 MG Tablet PO (06:35)
[2021-03-08] MEDS: Verapamil SR 240 MG Tablet PO (06:35)
[2021-03-08] MEDS: Pantoprazole Sodium 20 MG Tablet PO (06:35)
[2021-03-08] MEDS: Clotrimazole 10 MG Troche MUCOUS MEM ×5 (06:35→21:29)
[2021-03-08] MEDS: CETIRIZINE HCL 10 MG TABLET PO (06:35)
[2021-03-08] MEDS: Menthol/Lanolin/Calamine/Znox 113 GM Tube 1 APPLIC TOPICAL ×2 (06:37→17:54)
[2021-03-08] MEDS: Nystatin Powder 15gm Bottle 1 APPLIC TOPICAL ×2 (06:37→21:29)
[2021-03-08 08:16] LABS: Absolute Lymphocyte Count 1.14 X10^3/uL (0.83-4.51); Absolute Neutrophil Count 3.5 X10^3/uL (2.0-7.7); Basophil# 0.03 X10^3/uL; Basophil% 0.5 % (0-1); Eosinophils% 3.6 % (0-5); Hemoglobin 10.7 g/dL (12.0-15.0); Lymphocyte # 1.14 X10^3/ul (0.83-4.51); Lymphocyte % 20.7 % (19-41); Mean Corp Hgb Conc 31.5 g/dL (32-36); Mean Corpuscular Volume 92.1 fL (81-99); Mean Platelet Vol. 8.9 fl (6.2-12.0); Monocyte# 0.57 X10^3/uL; Monocyte% 10.4 % (0-10); NRBC Flagged by Analyzer 0 % (0-5); Neutrophil # 3.53 X10^3/uL (2.7-7.7); Neutrophil % 64.3 % (47-70); Platelet Count 311 K/mm3 (150-450); RBC Distribution Width CV 15.7 % (11.6-14.6); RBC Distribution Width SD 52.8 fl (35.1-43.9); Red Blood Count 3.69 M/mm3 (4.2-5.4); White Blood Count 5.5 K/mm3 (4.4-11.0)
[2021-03-08] MEDS: Multivitamins,Therapeutic Tablet 1 TABLET PO (08:19)
[2021-03-08] MEDS: Iron Polysaccharide Complex 150 MG CAPSULE PO (08:19)
[2021-03-08] MEDS: Potassium Chloride Oral Tablet 20 MEQ PO ×2 (08:19→17:54)
[2021-03-08 08:25] LABS: Anion Gap 6 (5-15); BUN 20 mg/dL (7-18); BUN/Creat Ratio 24.7 RATIO (10-20); Calcium,Total 8.8 mg/dL (8.5-10.1); Chloride 103 mmol/L (98-107); Creatinine, Serum 0.81 mg/dL (0.55-1.02); EST Glomerular Filtration Rate 74 mL/min (>60); Est Glom Filt Rate - Afr Amer 89 mL/min (>60); Estimated Creatinine Clearance 48.92 ml/min; Glucose 78 mg/dL (74-106); Potassium 3.9 mmol/L (3.5-5.1); Sodium Level 139 mmol/L (136-145)
[2021-03-08 14:28] VITALS: PULSE 74; RESP 16; O2SAT 98
[2021-03-08 15:41] VITALS: BP 141/75; PULSE 74; RESP 16; TEMP 36.6; O2SAT 98
[2021-03-08] MEDS: Acetaminophen 500 MG Tablet 1000 MG PO (21:27)
[2021-03-08] MEDS: Pravastatin 80 MG Tablet PO (21:28)
[2021-03-08] MEDS: Divalproex (ER) 500 MG Tablet PO (21:28)
[2021-03-08] MEDS: Zolpidem Tartrate 5 MG Tablet PO (21:28)
[2021-03-08] MEDS: Amitriptyline 25 MG Tablet PO (21:29)
[2021-03-09 06:51] VITALS: BP 125/52; PULSE 69; RESP 18; TEMP 36.2; O2SAT 93
[2021-03-09] MEDS: Polyethylene Glycol 3350 17 GM PACKET PO (06:52)
[2021-03-09] MEDS: CETIRIZINE HCL 10 MG TABLET PO (06:53)
[2021-03-09] MEDS: Verapamil SR 240 MG Tablet PO (06:53)
[2021-03-09] MEDS: Senna Tablet 1 TABLET PO (06:53)
[2021-03-09] MEDS: Pantoprazole Sodium 20 MG Tablet PO (06:53)
[2021-03-09] MEDS: Montelukast 10 MG Tablet PO (06:53)
[2021-03-09] MEDS: APIXABAN 5 MG TABLET PO ×2 (06:54→16:47)
[2021-03-09] MEDS: Citalopram 40 MG TABLET PO (06:54)
[2021-03-09] MEDS: Clotrimazole 10 MG Troche MUCOUS MEM ×5 (06:54→21:51)
[2021-03-09] MEDS: Menthol/Lanolin/Calamine/Znox 113 GM Tube 1 APPLIC TOPICAL ×2 (06:57→16:48)
[2021-03-09] MEDS: Nystatin Powder 15gm Bottle 1 APPLIC TOPICAL ×2 (06:57→21:53)
[2021-03-09] MEDS: Iron Polysaccharide Complex 150 MG CAPSULE PO (08:19)
[2021-03-09] MEDS: Potassium Chloride Oral Tablet 20 MEQ PO ×2 (08:19→16:47)
[2021-03-09] MEDS: Multivitamins,Therapeutic Tablet 1 TABLET PO (08:19)
[2021-03-09] MEDS: Acetaminophen 500 MG Tablet 1000 MG PO (13:15)
[2021-03-09 16:03] VITALS: BP 98/60; PULSE 76; RESP 14; TEMP 36.7; O2SAT 94
[2021-03-09 18:21] VITALS: PULSE 76; RESP 14; O2SAT 94
[2021-03-09] MEDS: Zolpidem Tartrate 5 MG Tablet PO (21:52)
[2021-03-09] MEDS: Amitriptyline 25 MG Tablet PO (21:52)
[2021-03-09] MEDS: Divalproex (ER) 500 MG Tablet PO (21:52)
[2021-03-09] MEDS: Pravastatin 80 MG Tablet PO (21:52)
[2021-03-10] MEDS: Acetaminophen 500 MG Tablet 1000 MG PO ×2 (01:11→16:43)
--- NOTE | 2021-03-10 01:16 | NURSING ---
Pt calls reporting LLE inferior to wound is twitching. No involuntary movement noted to affected area. No increased redness, warmth, or swelling to periwound skin. Wound vac at 150 mmHg continuous suction. Dressing dry and intact, no leaks. Toileted per pt request. Medicated w/ Tylenol for pain level 4/10. Removed NIA wraps to BLE and elevated on soft pillow w/ heels floated when returned to bed. Call light w/ in reach.
[2021-03-10 05:00] VITALS: BP 103/67; PULSE 72; RESP 16; TEMP 36.4
[2021-03-10] MEDS: Polyethylene Glycol 3350 17 GM PACKET PO (06:04)
[2021-03-10] MEDS: APIXABAN 5 MG TABLET PO ×2 (06:05→16:44)
[2021-03-10] MEDS: CETIRIZINE HCL 10 MG TABLET PO (06:05)
[2021-03-10] MEDS: Clotrimazole 10 MG Troche MUCOUS MEM ×5 (06:05→19:48)
--- NOTE | 2021-03-10 06:05 | NURSING ---
Kelton held this am due to low BP. Pt is asymptomatic. Plans to go back to sleep at this time. Will report to oncoming nurse to reassess BP later this am and potentially administer medication.
[2021-03-10] MEDS: Montelukast 10 MG Tablet PO (06:06)
[2021-03-10] MEDS: Menthol/Lanolin/Calamine/Znox 113 GM Tube 1 APPLIC TOPICAL ×2 (06:06→16:44)
[2021-03-10] MEDS: Pantoprazole Sodium 20 MG Tablet PO (06:06)
[2021-03-10] MEDS: Nystatin Powder 15gm Bottle 1 APPLIC TOPICAL ×2 (06:06→19:47)
[2021-03-10] MEDS: Citalopram 40 MG TABLET PO (06:06)
[2021-03-10] MEDS: Potassium Chloride Oral Tablet 20 MEQ PO ×2 (08:22→16:43)
[2021-03-10] MEDS: Iron Polysaccharide Complex 150 MG CAPSULE PO (08:22)
[2021-03-10] MEDS: Multivitamins,Therapeutic Tablet 1 TABLET PO (08:22)
[2021-03-10 08:24] VITALS: BP 128/65; PULSE 70
[2021-03-10] MEDS: Verapamil SR 240 MG Tablet PO (08:24)
[2021-03-10] MEDS: oxyCODONE 5 MG Tablet 10 MG PO (12:27)
[2021-03-10 15:12] VITALS: BP 118/66; PULSE 79; RESP 18; TEMP 36.4; O2SAT 94
--- NOTE | 2021-03-10 15:30 | NURSING ---
wound photo: left lower leg
[2021-03-10] MEDS: Pravastatin 80 MG Tablet PO (19:47)
[2021-03-10] MEDS: Divalproex (ER) 500 MG Tablet PO (19:48)
[2021-03-10] MEDS: Amitriptyline 25 MG Tablet PO (19:48)
[2021-03-10] MEDS: Zolpidem Tartrate 5 MG Tablet PO (21:20)
[2021-03-11 05:00] VITALS: BP 119/64; PULSE 74; RESP 16; TEMP 36.9; O2SAT 94
[2021-03-11] MEDS: Menthol/Lanolin/Calamine/Znox 113 GM Tube 1 APPLIC TOPICAL ×2 (06:53→15:02)
[2021-03-11] MEDS: Polyethylene Glycol 3350 17 GM PACKET PO (06:53)
[2021-03-11] MEDS: APIXABAN 5 MG TABLET PO ×2 (06:54→17:00)
[2021-03-11] MEDS: Citalopram 40 MG TABLET PO (06:54)
[2021-03-11] MEDS: Verapamil SR 240 MG Tablet PO (06:54)
[2021-03-11] MEDS: CETIRIZINE HCL 10 MG TABLET PO (06:55)
[2021-03-11] MEDS: Pantoprazole Sodium 20 MG Tablet PO (06:55)
[2021-03-11] MEDS: Montelukast 10 MG Tablet PO (06:55)
[2021-03-11] MEDS: Clotrimazole 10 MG Troche MUCOUS MEM ×3 (06:56→12:50)
[2021-03-11] MEDS: Nystatin Powder 15gm Bottle 1 APPLIC TOPICAL ×2 (06:56→21:28)
[2021-03-11] MEDS: Iron Polysaccharide Complex 150 MG CAPSULE PO (09:14)
[2021-03-11] MEDS: Multivitamins,Therapeutic Tablet 1 TABLET PO (09:14)
[2021-03-11] MEDS: Potassium Chloride Oral Tablet 20 MEQ PO ×2 (09:15→16:59)
[2021-03-11] MEDS: Acetaminophen 500 MG Tablet 1000 MG PO ×2 (12:49→21:32)
--- NOTE | 2021-03-11 13:10 | CASEMGMT ---
Social Work Met with resident in room. Team has set discharge date for 03/15/2021. Resident is agreeable to discharge date. Resident plans to discharge to home with spouse. This psychiatric social worker communicated that physical and occupational therapy are recommending continued services in the home. Resident also has wound vac and will need continued nursing services in the home. Resident is agreeable to home health recommendations and request for home health services to be set up through [facility] ([facility]). Resident reports to have all needed DME. Resident plans for resident son to provide transportation to home for resident. Resident denies any concerns on returning to home. [facility] made [facility]/OT/SN. Order completed. [facility] reports to be able to accept resident. Wound nurse, Li updated on resident discharge date and will have wound vac for home ordered. Proposed discharge date: 03/15/2021 Disposition: Home with spouse and [facility]. Oscar ESPINOZA, TRISTIN
--- NOTE | 2021-03-11 15:15 | CASEMGMT ---
Social Work Brief interview for mental status (BIMS) and resident mood assessment (PHQ-9) completed on this day. Oscar ESPINOZA, JONNYS
[2021-03-11 15:39] VITALS: BP 134/73; PULSE 84; RESP 16; TEMP 36.4; O2SAT 98
[2021-03-11] MEDS: Senna Tablet 1 TABLET PO (17:00)
--- NOTE | 2021-03-11 17:04 | NURSING ---
Resident and son notified of resident testing positive for COVID.
--- NOTE | 2021-03-11 20:29 | PCM.DC.SUM ---
Providers Date of Admission: 02/21/21 Primary Care Physician: Dr. Desmond Riojas MD Consultations 02/21/21 15:54 Consult: Onc/Wound/vendor relationship manager Routine Comment: Reason for Consult:: Wound Vac Reason For Visit: IND, HEMATOMA Diagnosis Discharge Diagnosis (1) Hematoma of left lower extremity: Status: Chronic Code(s): S80.12XA - Contusion of left lower leg, initial encounter (2) 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 lower leg with complication: Status: Chronic Code(s): S81.812A - Laceration without foreign body, left lower leg, initial encounter (3) Skin necrosis: Status: Chronic Code(s): I96 - Gangrene, not elsewhere classified (4) Cellulitis of left lower leg: Status: Acute Code(s): L03.116 - Cellulitis of left lower limb (5) Factor 5 Leiden mutation, heterozygous: Status: Acute Code(s): D68.51 - Activated protein C resistance Medications at Discharge Home Medications levocetirizine 5 mg PO DAILY 09/29/13 montelukast 10 mg PO DAILY 09/29/13 omeprazole 20 mg PO DAILY 09/29/13 potassium chloride 20 meq PO BID 09/29/13 verapamil 240 mg PO DAILY 09/29/13 pravastatin 80 mg tablet 80 mg PO QHS 11/16/17 amitriptyline 25 mg tablet 25 mg PO QHS 10/25/19 cholecalciferol (vitamin D3) 10 mcg (400 unit) capsule 400 unit PO DAILY 10/25/19 galcanezumab-gnlm 120 mg/mL subcutaneous syringe 120 mg SC QMONTH 10/25/19 multivitamin 1 tab PO DAILY 04/26/20 zolpidem 10 mg tablet 10 mg PO QHS PRN PRN 10/03/20 divalproex [Depakote ER] 500 mg PO QHS 01/31/21 apixaban 5 mg PO BID 02/21/21 acetaminophen 1,000 mg PO Q6H PRN PRN #0 tab 03/11/21 sphgx-aoim-XiUTK-sbuydd-rw-biu [Mustapha (with collagen)] 1 packet PO BIDCM 30 Days ea 03/11/21 citalopram 40 mg PO DAILY #0 tab 03/11/21 Hospital Course Operations None Procedures None Summary of Care Provided Minutes Spent on Discharge: 35 Hospital Course: 71 year old female with below past medical history hospitalized infected traumatic hematoma left lower extremity underwent incision, debridement, VAC dressing 02/18/[address] Kent, admitted to TCU with debility, here for rehabilitation, strengthening, prior to discharge home with . Discharge home with 03/15/2021, Home Health Services PT/OT/SN. Physical Exam Const alert and oriented x3 General Appearance: cooperative HEENT normocephalic Eyes PERRL and EOMs intact bilaterally Neck supple, no JVD and no carotid bruits Resp normal respiratory effort, normal air movement and clear to auscultation bilaterally Cardio regular rate and regular rhythm GI normal to inspection, nondistended, normoactive bowel sounds, non-tender and non-distended Extremity normal capillary refill General Extremity: Negative for edema Skin no rashes or lesions noted General Skin Exam: no breakdown Psych affect normal Appearance: appropriate Weight / BMI Weight Weight: 105.829 kg Body Mass Index (BMI) 42.2 ABG / Lab / Microbiology Data Result Diagrams: 03/08/21 08:02 03/08/21 08:02 Microbiology: Microbiology 02/24/21 11:25 Mucosa - Nose SARS-CoV-2 Antigen (Rapid) - Final D/C Instructions Discharge Diet: No restrictions Discharge Activity: Return to Normal Activity, May Shower and Use Walker May resume sexual activity in: 6-8 weeks Weight Bearing Status: Weight bearing as tolerated Call your doctor if you observe: Fever of 101 or Higher, Inability to urinate, Inability to have a bowel movement, Shortness of breath, Fainting spells, Chest pain and Uncontrolled pain Additional Instructions: Discharge home with 03/15/2021, Home Health Services PT/OT/SN. Please Follow Up With: Desmond Riojas Chi, MD When: 1 week. Meaningful Use Info Meaningful Use Diagnoses (Choose all that apply): None applicable Discharge Plan Admission Admit Date/Time: 02/21/21 14:55 Primary Reason for Your Visit: Debility Attending Provider: Desmond Riojas Chi Primary Care Provider: Desmond Riojas Chi Instructions Additional Instructions / Restrictions: Discharge home with 03/15/2021, Home Health Services PT/OT/SN. Discharge Orders/Prescriptions Prescriptions: New citalopram 40 mg Tablet 40 mg PO DAILY Qty: 0 RF: 0 acetaminophen 500 mg Tablet 1,000 mg PO Q6H PRN PRN (Reason: Pain Score 1-5) Qty: 0 RF: 0 Mustapha (with collagen) 7-7-1.5 gram Powder In Packet 1 packet PO BIDCM 30 Days RF: 0 Continued pravastatin 80 mg tablet 80 mg PO QHS RF: 0 amitriptyline 25 mg tablet 25 mg PO QHS RF: 0 Emgality Syringe 120 mg/mL syringe 120 mg SC QMONTH RF: 0 cholecalciferol (vitamin D3) 400 unit capsule 400 unit PO DAILY RF: 0 multivitamin Tablet 1 tab PO DAILY RF: 0 potassium chloride 20 MEQ tablet 20 meq PO BID RF: 0 omeprazole 20 MG capsule 20 mg PO DAILY RF: 0 montelukast 10 MG tablet 10 mg PO DAILY RF: 0 verapamil 240 MG capsule,ext rel. pellets 24 hr 240 mg PO DAILY RF: 0 levocetirizine 5 MG tablet 5 mg PO DAILY RF: 0 zolpidem 10 mg tablet 10 mg PO QHS PRN PRN (Reason: Sleep) RF: 0 divalproex [Depakote ER] 500 mg Tablet Extended Release 24 Hr 500 mg PO QHS RF: 0 apixaban 5 mg tablet 5 mg PO BID RF: 0 Discontinued citalopram [Celexa] 40 mg tablet 80 mg PO QDAY RF: 0 promethazine 25 mg Tablet 25 mg PO Q4H PRN PRN (Reason: NAUSEA/VOMITING) Qty: 0 RF: 0 oxycodone 10 mg tablet 10 mg PO Q4H PRN (Reason: pain) 2 Days Qty: 8 RF: 0 sennosides [Ora-perri] 8.6 mg tablet 1 tab PO BID RF: 0 doxycycline monohydrate 100 mg capsule 100 mg PO BID RF: 0 levofloxacin 500 mg tablet 500 mg PO DAILY RF: 0 Referrals / Follow Up: Desmond Riojas Chi, MD [Primary Care Provider] - Disposition Disposition (needs filled in before D/C Order can be placed): Home Health Service
[2021-03-11] MEDS: Amitriptyline 25 MG Tablet PO (21:23)
[2021-03-11] MEDS: Pravastatin 80 MG Tablet PO (21:23)
[2021-03-11] MEDS: Divalproex (ER) 500 MG Tablet PO (21:24)
[2021-03-11] MEDS: Zolpidem Tartrate 5 MG Tablet PO (21:26)
[2021-03-11 22:04] VITALS: PULSE 77
[2021-03-12 05:00] VITALS: BP 130/65; PULSE 71; RESP 18; TEMP 36; O2SAT 98
[2021-03-12] MEDS: Senna Tablet 1 TABLET PO ×2 (05:38→18:22)
[2021-03-12] MEDS: Polyethylene Glycol 3350 17 GM PACKET PO (05:38)
[2021-03-12] MEDS: CETIRIZINE HCL 10 MG TABLET PO (05:38)
[2021-03-12] MEDS: APIXABAN 5 MG TABLET PO ×2 (05:38→18:22)
[2021-03-12] MEDS: Pantoprazole Sodium 20 MG Tablet PO (05:38)
[2021-03-12] MEDS: Citalopram 40 MG TABLET PO (05:38)
[2021-03-12] MEDS: Montelukast 10 MG Tablet PO (05:38)
[2021-03-12] MEDS: Verapamil SR 240 MG Tablet PO (05:38)
[2021-03-12] MEDS: Menthol/Lanolin/Calamine/Znox 113 GM Tube 1 APPLIC TOPICAL ×2 (05:39→18:22)
[2021-03-12] MEDS: Nystatin Powder 15gm Bottle 1 APPLIC TOPICAL ×2 (05:40→20:13)
[2021-03-12] MEDS: Iron Polysaccharide Complex 150 MG CAPSULE PO (08:57)
[2021-03-12] MEDS: Multivitamins,Therapeutic Tablet 1 TABLET PO (08:57)
[2021-03-12] MEDS: Potassium Chloride Oral Tablet 20 MEQ PO ×2 (08:57→18:22)
[2021-03-12] MEDS: Acetaminophen 500 MG Tablet 1000 MG PO ×2 (09:12→20:10)
[2021-03-12 12:58] VITALS: PULSE 78; RESP 16; O2SAT 98
[2021-03-12 16:58] VITALS: BP 130/66; PULSE 78; RESP 16; TEMP 36.8; O2SAT 98
[2021-03-12] MEDS: Divalproex (ER) 500 MG Tablet PO (20:12)
[2021-03-12] MEDS: Amitriptyline 25 MG Tablet PO (20:13)
[2021-03-12] MEDS: Pravastatin 80 MG Tablet PO (20:14)
[2021-03-12] MEDS: Zolpidem Tartrate 5 MG Tablet PO (21:27)
[2021-03-13 05:00] VITALS: BP 177/83; PULSE 80; RESP 18; TEMP 36.6; O2SAT 97
[2021-03-13] MEDS: Pantoprazole Sodium 20 MG Tablet PO (06:36)
[2021-03-13] MEDS: Montelukast 10 MG Tablet PO (06:36)
[2021-03-13] MEDS: Verapamil SR 240 MG Tablet PO (06:36)
[2021-03-13] MEDS: Citalopram 40 MG TABLET PO (06:36)
[2021-03-13] MEDS: Senna Tablet 1 TABLET PO ×2 (06:36→17:45)
[2021-03-13] MEDS: Polyethylene Glycol 3350 17 GM PACKET PO (06:37)
[2021-03-13] MEDS: Nystatin Powder 15gm Bottle 1 APPLIC TOPICAL ×2 (06:37→21:43)
[2021-03-13] MEDS: CETIRIZINE HCL 10 MG TABLET PO (06:37)
[2021-03-13] MEDS: Menthol/Lanolin/Calamine/Znox 113 GM Tube 1 APPLIC TOPICAL ×2 (06:37→17:45)
[2021-03-13] MEDS: APIXABAN 5 MG TABLET PO ×2 (06:37→17:45)
[2021-03-13] MEDS: Multivitamins,Therapeutic Tablet 1 TABLET PO (08:00)
[2021-03-13] MEDS: Potassium Chloride Oral Tablet 20 MEQ PO ×2 (08:00→17:45)
[2021-03-13] MEDS: Iron Polysaccharide Complex 150 MG CAPSULE PO (08:00)
[2021-03-13 14:26] VITALS: BP 122/61; PULSE 79; RESP 17; TEMP 37; O2SAT 96
[2021-03-13] MEDS: Acetaminophen 500 MG Tablet 1000 MG PO (17:49)
[2021-03-13] MEDS: Zolpidem Tartrate 5 MG Tablet PO (21:41)
[2021-03-13] MEDS: Divalproex (ER) 500 MG Tablet PO (21:42)
[2021-03-13] MEDS: Amitriptyline 25 MG Tablet PO (21:43)
[2021-03-13] MEDS: Pravastatin 80 MG Tablet PO (21:43)
[2021-03-13 22:00] VITALS: RESP 16
[2021-03-14 05:00] VITALS: BP 125/74; PULSE 71; RESP 16; TEMP 36.6; O2SAT 97
[2021-03-14] MEDS: Polyethylene Glycol 3350 17 GM PACKET PO (06:40)
[2021-03-14] MEDS: APIXABAN 5 MG TABLET PO ×2 (06:41→17:17)
[2021-03-14] MEDS: Verapamil SR 240 MG Tablet PO (06:42)
[2021-03-14] MEDS: Pantoprazole Sodium 20 MG Tablet PO (06:42)
[2021-03-14] MEDS: Menthol/Lanolin/Calamine/Znox 113 GM Tube 1 APPLIC TOPICAL ×2 (06:42→17:18)
[2021-03-14] MEDS: Nystatin Powder 15gm Bottle 1 APPLIC TOPICAL ×2 (06:42→20:42)
[2021-03-14] MEDS: Citalopram 40 MG TABLET PO (06:42)
[2021-03-14] MEDS: CETIRIZINE HCL 10 MG TABLET PO (06:43)
[2021-03-14] MEDS: Montelukast 10 MG Tablet PO (06:43)
[2021-03-14] MEDS: Multivitamins,Therapeutic Tablet 1 TABLET PO (07:57)
[2021-03-14] MEDS: Iron Polysaccharide Complex 150 MG CAPSULE PO (07:57)
[2021-03-14] MEDS: Potassium Chloride Oral Tablet 20 MEQ PO ×2 (07:57→17:17)
--- NOTE | 2021-03-14 15:13 | NURSING ---
Pt tolerated wound VAC dressing change well. Pt hooked up to the home VAC. pt to be discharged in am around 0900. reviewed alarms, etc. with patient. proof of delivery signed and faxed back to [facility].
[2021-03-14 15:15] VITALS: BP 123/57; PULSE 84; RESP 16; TEMP 36.4; O2SAT 92
[2021-03-14] MEDS: oxyCODONE 5 MG Tablet 10 MG PO (15:20)
[2021-03-14] MEDS: Amitriptyline 25 MG Tablet PO (20:40)
[2021-03-14] MEDS: Acetaminophen 500 MG Tablet 1000 MG PO (20:40)
[2021-03-14] MEDS: Divalproex (ER) 500 MG Tablet PO (20:41)
[2021-03-14] MEDS: Pravastatin 80 MG Tablet PO (20:42)
[2021-03-14] MEDS: Zolpidem Tartrate 5 MG Tablet PO (22:44)
[2021-03-14 23:02] VITALS: PULSE 82; RESP 14
[2021-03-15 06:39] VITALS: BP 121/69; PULSE 70; RESP 16; TEMP 36.7; O2SAT 95
[2021-03-15] MEDS: Polyethylene Glycol 3350 17 GM PACKET PO (06:41)
[2021-03-15] MEDS: CETIRIZINE HCL 10 MG TABLET PO (06:41)
[2021-03-15] MEDS: Verapamil SR 240 MG Tablet PO (06:42)
[2021-03-15] MEDS: Montelukast 10 MG Tablet PO (06:43)
[2021-03-15] MEDS: Citalopram 40 MG TABLET PO (06:43)
[2021-03-15] MEDS: APIXABAN 5 MG TABLET PO (06:43)
[2021-03-15] MEDS: Pantoprazole Sodium 20 MG Tablet PO (06:43)
[2021-03-15] MEDS: Menthol/Lanolin/Calamine/Znox 113 GM Tube 1 APPLIC TOPICAL (06:44)
[2021-03-15] MEDS: Nystatin Powder 15gm Bottle 1 APPLIC TOPICAL (06:44)
[2021-03-15 07:57] LABS: Absolute Lymphocyte Count 1.47 X10^3/uL (0.83-4.51); Absolute Neutrophil Count 2.7 X10^3/uL (2.0-7.7); Basophil# 0.05 X10^3/uL; Eosinophil# 0.29 X10^3/uL; Eosinophils% 5.7 % (0-5); Hematocrit 34.1 % (37-47); Hemoglobin 10.7 g/dL (12.0-15.0); Lymphocyte # 1.47 X10^3/ul (0.83-4.51); Lymphocyte % 28.8 % (19-41); Mean Corp Hgb Conc 31.4 g/dL (32-36); Mean Corpuscular Volume 92.4 fL (81-99); Mean Platelet Vol. 9.4 fl (6.2-12.0); Monocyte# 0.56 X10^3/uL; NRBC Flagged by Analyzer 0 % (0-5); Neutrophil # 2.72 X10^3/uL (2.7-7.7); Neutrophil % 53.1 % (47-70); Platelet Count 301 K/mm3 (150-450); RBC Distribution Width SD 54.4 fl (35.1-43.9); Red Blood Count 3.69 M/mm3 (4.2-5.4); White Blood Count 5.1 K/mm3 (4.4-11.0)
[2021-03-15 08:19] LABS: Anion Gap 8 (5-15); BUN 27 mg/dL (7-18); BUN/Creat Ratio 31.2 RATIO (10-20); Calcium,Total 8.5 mg/dL (8.5-10.1); Chloride 105 mmol/L (98-107); Creatinine, Serum 0.86 mg/dL (0.55-1.02); EST Glomerular Filtration Rate 68 mL/min (>60); Est Glom Filt Rate - Afr Amer 83 mL/min (>60); Estimated Creatinine Clearance 46.08 ml/min; Glucose 85 mg/dL (74-106); Potassium 4.1 mmol/L (3.5-5.1); Sodium Level 141 mmol/L (136-145)
[2021-03-15] MEDS: Iron Polysaccharide Complex 150 MG CAPSULE PO (09:03)
[2021-03-15] MEDS: Potassium Chloride Oral Tablet 20 MEQ PO (09:04)
[2021-03-15] MEDS: Multivitamins,Therapeutic Tablet 1 TABLET PO (09:04)
== END 2021-03-15 09:10 | disposition home health service (06) | DRG 603 ==
PROVIDERS: Admitting Provider Family Medicine Geriatric Medicine; PCP Family Medicine Geriatric Medicine; Visit Provider Family Medicine Geriatric Medicine
DX: L03.116 Cellulitis of left lower limb (principal); D68.51 Activated protein C resistance; Z68.41 Body mass index [BMI] 40.0-44.9, adult; E11.52 Type 2 diabetes mellitus with diabetic peripheral angiopathy with gangrene; S80.12XD Contusion of left lower leg, subsequent encounter; X58.XXXD Exposure to other specified factors, subsequent encounter; K21.9 Gastro-esophageal reflux disease without esophagitis; G47.33 Obstructive sleep apnea (adult) (pediatric); N18.9 Chronic kidney disease, unspecified; E11.22 Type 2 diabetes mellitus with diabetic chronic kidney disease; I12.9 Hypertensive chronic kidney disease with stage 1 through stage 4 chronic kidney disease, or unspecified chronic kidney disease; S81.812D Laceration without foreign body, left lower leg, subsequent encounter; M19.90 Unspecified osteoarthritis, unspecified site; E78.5 Hyperlipidemia, unspecified; F41.9 Anxiety disorder, unspecified; F32.9 Major depressive disorder, single episode, unspecified; E66.01 Morbid (severe) obesity due to excess calories; I48.0 Paroxysmal atrial fibrillation; G43.909 Migraine, unspecified, not intractable, without status migrainosus; E87.6 Hypokalemia; E55.9 Vitamin D deficiency, unspecified; Z86.718 Personal history of other venous thrombosis and embolism; Z79.899 Other long term (current) drug therapy; Z79.01 Long term (current) use of anticoagulants
CPT/HCPCS: 36415; 80048; 82962; 85014; 85018; 85025; 87426; 97110; 97116; 97162; 97166; 97530; 97535; 97802

== ENCOUNTER → 2021-03-20 10:49 | Outpatient (CLI) | payer MEDICARE, OTHER, SELFPAY ==
[2021-02-21 15:08] VITALS: BMI 42.2
--- NOTE | 2021-03-20 10:51 | VDLE_ITS ---
Reason For Study: edema Procedure LEFT This is a venous duplex using B-mode, color GSV is normal. flow and spectral Doppler. CFV is compressible, spontaneous, phasic, Exam performed in department. competent, and demonstrates normal The exam was abbreviated due to the COVID 19 augmentation. protocol. FV is compressible, spontaneous, phasic, The exam was diagnostic. competent and demonstrates normal A preliminary report was called and/or faxed augmentation. to Dr. Riojas. POP V is compressible, spontaneous, phasic, competent and demonstrates normal augmentation. T/P Trunk is compressible. PTV is compressible. LT PerV is compressible. VL/Venous Duplex US, Unilateral Interpretation Summary Deep veins of the left lower extremity are patent and compressible segmentally. There is no evidence of left lower extremity deep vein thrombosis. Valvular competence appears intac t within the proximal deep venous system on the left . The left great saphenous vein appears patent a nd compressible segmentally. Ordering Physician: Desmond Riojas Performed By: Domo Mahoney RVT
== END ==
PROVIDERS: PCP Family Medicine Geriatric Medicine; Referring Provider Family Medicine Geriatric Medicine; Visit Provider Family Medicine Geriatric Medicine
DX: R60.0 Localized edema (principal)
CPT/HCPCS: 93971

== ENCOUNTER 2021-04-14 11:15 | Outpatient (RCR) | payer MEDICARE, OTHER, SELFPAY ==
[2021-02-13 13:37] VITALS: BMI 40.4
[2021-02-18 00:46] VITALS: BP 109/49; PULSE 78; RESP 18; TEMP 36.9
[2021-03-25 13:12] VITALS: BP 118/54; PULSE 91; RESP 16; TEMP 36.4; BMI 40.8
--- NOTE | 2021-03-25 14:38 | PCM.WC.PN ---
History of Present Illness Date of Service: 03/25/21 Chief Complaint: Traumatic ulcer to the left anterolateral leg History of Wound: 70 YEAR OLD WOMAN PRESENTS WITH A TRAUMATIC INFECTED HEMATOMA LEFT ANTEROLATERAL LEG WITH ASSOCIATED SKIN NECROSIS THAT SHE SUSTAINED ON JANUARY 31, 2021 WHEN SHE FELL AT HOME. SHE IS ON ELIQUIS FOR FACTOR V DEFICIENCY. SHE WENT TO THE ED WHERE THE LACERATION WAS CLEANSED AND SUTURED CLOSED. X-RAY IN THE ED WAS NEGATIVE FOR FRACTURE OR DISLOCATION. SHE FOLLOWED UP WITH HER PCP WHO NOTED SOME SLIGHT WOUND SEPARATION AFTER REMOVING SOME SUTURES. THE LEG WAS WRAPPED WITH GAUZE AND A COMPRESSION NIA WRAP. SOME REDNESS WAS NOTED SUPERIORLY AND SHE WAS STARTED ON DOXYCYCLINE AND CLINDAMYCIN. ALSO SOME SKIN NECROSIS WAS SEEN MEDIALLY. Surgery on 02/18/21 for Surgical preparation left anterolateral leg with incision and drainage and evacuation traumatic infected hematoma and excisional debridement skin necrosis (156 cm2). Operative cultures were positive for Pseudomonas aeroginosa and Anaerobic cocci. She was treated with Levaquin. Wound care - Wound VAC at 150 mmHg, to be changed 3 times per week. She was transferred to TCU on 02/21/21. She was discharged from TCU on 03/14/21 with home health. Progress of Wound: Ulcer is smaller in size and depth, color is beefy pink. Objective Data Objective Data Vital Signs: Vital Signs Temp Pulse Resp BP 97.5 F L 91 16 118/54 L 03/25/21 13:12 03/25/21 13:12 03/25/21 13:12 03/25/21 13:12 Oxygen Delivery Method Room Air Weight: 223 lb Body Mass Index (BMI) 40.8 Charges/Coding Procedures Integumentary 111xxx-113xx: [id number] Global Visit Physical Exam Narrative Patient is walking with a walker Const alert and oriented x3 General Appearance: cooperative HEENT normocephalic Head and Scalp: atraumatic Eyes PERRL Lymph Lymphatic: no lymphedema noted Resp normal respiratory effort Cardio regular rate Extremity Extremity Narrative: Bilateral lower leg edema +1-+2. Skin Wound Narrative: Left anteriolateral leg ulcer is beefy pink. Rubia wound has no rash or breakdown. Neuro CN's II-XII intact bilaterally Psych Appearance: grossly normal Debridement Note Debridement Note Post-Debridement Measurements and Additional Note: Post-Debridement Measurements/Treatment WC - Nurse 1 - General Ulcer Assessment Start: 03/25/21 13:11 Freq: Status: Active Protocol: ANTHONY.PEDRO PABLO Activity Type Activity Date Activity User E-Sign Co-Sign Detail Recorded Client Recorded Date Recorded By Document 03/25/21 13:12 [facility] [id number] 03/25/21 13:30 [facility] 03/25/21 13:12 - Today's Visit Information Type of service Initial Visit Arrival Mode Ambulatory, Walker Transfer Assistance None Accompanied by son Patient Identification Verified (Name & Yes ) Patient Requires Transmission-Based No Precautions Height and Weight Height 5 ft 2 in Weight 223 lb Weight in Pounds 223.0 lbs Weight Measurement Method Stated by Patient Body Mass Index (BMI) 40.8 BMI Classification Obese BSA - Erica 2.00 Vital Signs Temperature (97.8 F-99.1 F) 97.5 F L Temperature Source Temporal Pulse Rate (60-100) 91 Pulse Location Monitor Respiratory Rate (12-18) 16 Respiratory rate source Observation Oxygen Delivery Method Room Air Blood Pressure (90/60-120/80) 118/54 L Blood Pressure Mean (mm Hg) 75 Source Monitor Position Sitting Blood Pressure Location Right Forearm History Since Last Visit- (Skip if this is Patient's initial visit) Left Footwear Regular Shoe Right Footwear Regular Shoe Pain Scale: 0-10 Numeric Is Patient Pain Free? Yes - Nurse 1 - General Ulcer Measurement Start: 03/25/21 13:11 Freq: Status: Active Protocol: Activity Type Activity Date Activity User E-Sign Co-Sign Detail Recorded Client Recorded Date Recorded By Document 03/25/21 13:12 [facility] [id number] 03/25/21 13:30 [facility] 03/25/21 13:12 Wound Center Nurse 1 #3- LLE LAT POST OP -Combined with other wound No -Current Size (cm) - Length 9.1 -Current Size (cm) - Width 8.8 -Current Size (cm) - Depth 0.1 -Total Square Cm 80.08 -Date of Last Picture (Recall this 03/25/21 field) -Photo Taken Yes -Epithelialization None Present -Tunneling No -Undermining/Tunneling No -Circular Undermining No -Exudate Amt Medium -Exudate Type Serosanguineous -Wound Margin Distinct, Outline Attached -Granulation Amt Large (67-100%) -Granulation Quality Red -Slough/Fibrin No -Necrosis Amt None Present (0 %) -Texture (Rubia-wound Skin Appearance) Assessed -Moisture (Rubia-wound Skin Appearance) Assessed -Color (Rubia-wound Skin Appearance) Assessed -Temperature (Rubia-wound Skin No Abnormality Appearance) (Pt Warm) -Ulcer Cleansing SOAPY WATER -Foul Odor after Cleansing No -Anesthetic Used 4% Lidocaine Solution Lower Limb Edema Present Yes Right Calf (cm) 45 Right Ankle (cm) 31.1 WC - Nurse 2 - General Ulcer CM Notes Start: 03/25/21 13:11 Freq: Status: Active Protocol: Activity Type Activity Date Activity User E-Sign Co-Sign Detail Recorded Client Recorded Date Recorded By Document 03/25/21 13:44 MANDEEP [id number] 03/25/21 13:48 MANDEEP 03/25/21 13:44 Wound Center Nurse 2 #3- LLE LAT POST OP -Time 13:45 -Correct Patient Yes -Correct Side, Site, Position Yes -Correct Procedure Yes -Procedure Performed Yes -Type of Procedure Debridement -Clinical Debridement Subcutaneous -Tissue Removed Subcutaneous -Post Debridement (cm) - Length 8.7 -Post Debridement (cm) - Width 9.3 -Post Debridement (cm) - Depth 0.2 -Total Square (Post) (cm) 80.91 -Area of Debridement (cm) - Length 8.7 -Area of Debridement (cm) - Width 9.3 -Total Square (Area) (cm) 80.91 -Tunneling No -Undermining/Tunneling No -Circular Undermining No -Wound/Ulcer Outcome Not Healed -Ulcer Cleansing Rinsed/ Irrigated with Saline -Foul Odor after Cleansing No -Bioengineered Tissue No -Bleeding Controlled with Pressure -Offloading No -Treatment Response Procedure Tolerated Well -Debridement - Subq, 1st 20sq cm Yes -Debridement, SubQ, ea addt'l 20sq cm 4 or part thereof Pain Scale: 0-10 Numeric Is Patient Pain Free? Yes Wound debrided: anterolateral leg ulcer Laterality: Left Type of Debridement: Excisional debridement Anesthesia Used: 5% Lidocaine Gel Depth: Down to and including healthy tissue and in the subcutaneous layer Percentage of wound debrided: 100 Instrument Used: 5mm curette Tissue Removed: Subcutaneous tissue and slough Severity: Fat Layer Exposed Amount of bleeding with debridement: Mild Bleeding Controlled with: Pressure and Compression and gauze Patient tolerated procedure: Patient tolerated procedure well Assessment/Plan Assessment/Plan (1) Ulcer of left lower extremity with fat layer exposed: CODE(S): L97.922 - Non-pressure 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 (2) Traumatic hematoma of left lower leg with infection: CODE(S): S80.12XA - Contusion of left lower leg, initial encounter; L08.9 - Local infection of the skin and subcutaneous tissue, unspecified (3) Factor 5 Leiden mutation, heterozygous: CODE(S): D68.51 - Activated protein C resistance PLAN: Wound care - Wound VAC at 150 mmHg. Dressing to be changed three times per week. She has home health to assist with the VAC dressing change. She may remove the wound vac dressing before home health comes and shower, wash ulcer with soap and water before dressing change. Follow up one week.
[2021-03-31 09:33] VITALS: BP 118/57; PULSE 87; RESP 20; TEMP 36.2; BMI 40.8
--- NOTE | 2021-03-31 12:18 | PCM.WC.PN ---
History of Present Illness Date of Service: 03/31/21 Chief Complaint: Traumatic ulcer to the left anterolateral leg History of Wound: 70 YEAR OLD WOMAN PRESENTS WITH A TRAUMATIC INFECTED HEMATOMA LEFT ANTEROLATERAL LEG WITH ASSOCIATED SKIN NECROSIS THAT SHE SUSTAINED ON JANUARY 31, 2021 WHEN SHE FELL AT HOME. SHE IS ON ELIQUIS FOR FACTOR V DEFICIENCY. SHE WENT TO THE ED WHERE THE LACERATION WAS CLEANSED AND SUTURED CLOSED. X-RAY IN THE ED WAS NEGATIVE FOR FRACTURE OR DISLOCATION. SHE FOLLOWED UP WITH HER PCP WHO NOTED SOME SLIGHT WOUND SEPARATION AFTER REMOVING SOME SUTURES. THE LEG WAS WRAPPED WITH GAUZE AND A COMPRESSION NIA WRAP. SOME REDNESS WAS NOTED SUPERIORLY AND SHE WAS STARTED ON DOXYCYCLINE AND CLINDAMYCIN. ALSO SOME SKIN NECROSIS WAS SEEN MEDIALLY. Surgery on 02/18/21 for Surgical preparation left anterolateral leg with incision and drainage and evacuation traumatic infected hematoma and excisional debridement skin necrosis (156 cm2). Operative cultures were positive for Pseudomonas aeroginosa and Anaerobic cocci. She was treated with Levaquin. Wound care - Wound VAC at 150 mmHg, to be changed 3 times per week. She was transferred to TCU on 02/21/21. She was discharged from TCU on 03/14/21 with home health. Progress of Wound: Ulcer is smaller in size and depth, color is beefy pink. Objective Data Objective Data Vital Signs: Vital Signs Temp Pulse Resp BP 97.1 F L 87 20 H 118/57 L 03/31/21 09:33 03/31/21 09:33 03/31/21 09:33 03/31/21 09:33 Oxygen Delivery Method Room Air Weight: 223 lb Body Mass Index (BMI) 40.8 Charges/Coding Procedures Integumentary 111xxx-113xx: [id number] Global Visit Physical Exam Const alert and oriented x3 General Appearance: cooperative HEENT normocephalic Eyes PERRL Lymph Lymphatic: no lymphedema noted Resp normal respiratory effort Cardio regular rate GI Palpation: soft Extremity no calf tenderness Skin Wound Narrative: Left lateral leg ulcer is beefy pink, improving in size. Neuro CN's II-XII intact bilaterally Psych Appearance: grossly normal Debridement Note Debridement Note Post-Debridement Measurements and Additional Note: Post-Debridement Measurements/Treatment WC - Nurse 1 - General Ulcer Assessment Start: 03/25/21 13:11 Freq: Status: Active Protocol: ANTHONY.LOWEXT Activity Type Activity Date Activity User E-Sign Co-Sign Detail Recorded Client Recorded Date Recorded By Document 03/25/21 13:12 [facility] [id number] 03/25/21 13:30 [facility] Document 03/31/21 09:33 DL [id number] 03/31/21 09:41 DL 03/25/21 03/31/21 13:12 09:33 - Today's Visit Information Type of service Initial Visit Follow-up Visit (Physician/INSPECTION ENGINEER ) Arrival Mode Ambulatory, Ambulatory, Walker Walker Transfer Assistance None Transfer Board Accompanied by son Patient Identification Verified (Name & Yes Yes ) Patient Requires Transmission-Based No No Precautions Height and Weight Height 5 ft 2 in Weight 223 lb Weight in Pounds 223.0 lbs Weight Measurement Method Stated by Patient Body Mass Index (BMI) 40.8 40.8 BMI Classification Obese Obese BSA - Erica 2.00 Vital Signs Temperature (97.8 F-99.1 F) 97.5 F L 97.1 F L Temperature Source Temporal Temporal Pulse Rate (60-100) 91 87 Pulse Location Monitor Monitor Respiratory Rate (12-18) 16 20 H Respiratory rate source Observation Observation Oxygen Delivery Method Room Air Blood Pressure (90/60-120/80) 118/54 L 118/57 L Blood Pressure Mean (mm Hg) 75 77 Source Monitor Monitor Position Sitting Blood Pressure Location Right Forearm Have you changed medications since your No last visit? Any new allergies or adverse reactions No Had a fall/change in ADL's that may No increase risk of falls Signs or symptoms of abuse and/or No neglect since last visit Have you been in the hospital since your No last visit? Has dressing in place as prescribed Yes Has compression in place as prescribed Yes Has offloadiing in place as prescribed N/A Experienced any changes in pain level or No management History Since Last Visit- (Skip if this is Patient's initial visit) Left Footwear Regular Shoe Right Footwear Regular Shoe Pain Scale: 0-10 Numeric Is Patient Pain Free? Yes Yes - Nurse 1 - General Ulcer Measurement Start: 03/25/21 13:11 Freq: Status: Active Protocol: Activity Type Activity Date Activity User E-Sign Co-Sign Detail Recorded Client Recorded Date Recorded By Document 03/25/21 13:12 [facility] [id number] 03/25/21 13:30 [facility] Document 03/31/21 09:33 DL [id number] 03/31/21 09:41 DL 03/25/21 03/31/21 13:12 09:33 Wound Center Nurse 1 #3- LLE LAT POST OP -Combined with other wound No -Current Size (cm) - Length 9.1 8.4 -Current Size (cm) - Width 8.8 8 -Current Size (cm) - Depth 0.1 0.1 -Total Square Cm 80.08 67.2 -Date of Last Picture (Recall this 03/25/21 field) -Photo Taken Yes No -Epithelialization None Present -Tunneling No -Undermining/Tunneling No -Circular Undermining No -Exudate Amt Medium Medium -Exudate Type Serosanguineous Serosanguineous -Wound Margin Distinct, Distinct, Outline Outline Attached Attached -Granulation Amt Large (67-100%) Large (67-100%) -Granulation Quality Red Red -Slough/Fibrin No -Necrosis Amt None Present (0 Small (1-33%) %) -Necrotic Tissue Type Adherent Slough -Structure Exposed N/A -Texture (Rubia-wound Skin Appearance) Assessed Scarring -Moisture (Rubia-wound Skin Appearance) Assessed No Abnormality -Color (Rubia-wound Skin Appearance) Assessed No Abnormality -Temperature (Rubia-wound Skin No Abnormality No Abnormality Appearance) (Pt Warm) (Pt Warm) -Tenderness on Palpation (Rubia-wound No Skin Appearance) -Ulcer Cleansing SOAPY WATER Wound Cleanser -Foul Odor after Cleansing No No -Anesthetic Used 4% Lidocaine 4% Lidocaine Solution Solution Lower Limb Edema Present Yes Right Calf (cm) 45 Right Ankle (cm) 31.1 Left Calf (cm) 40.6 Left Ankle (cm) 26.8 WC - Nurse 2 - General Ulcer CM Notes Start: 03/25/21 13:11 Freq: Status: Active Protocol: Activity Type Activity Date Activity User E-Sign Co-Sign Detail Recorded Client Recorded Date Recorded By Document 03/25/21 13:44 MANDEEP [id number] 03/25/21 13:48 MANDEEP 03/25/21 13:44 Wound Center Nurse 2 #3- LLE LAT POST OP -Time 13:45 -Correct Patient Yes -Correct Side, Site, Position Yes -Correct Procedure Yes -Procedure Performed Yes -Type of Procedure Debridement -Clinical Debridement Subcutaneous -Tissue Removed Subcutaneous -Post Debridement (cm) - Length 8.7 -Post Debridement (cm) - Width 9.3 -Post Debridement (cm) - Depth 0.2 -Total Square (Post) (cm) 80.91 -Area of Debridement (cm) - Length 8.7 -Area of Debridement (cm) - Width 9.3 -Total Square (Area) (cm) 80.91 -Tunneling No -Undermining/Tunneling No -Circular Undermining No -Wound/Ulcer Outcome Not Healed -Ulcer Cleansing Rinsed/ Irrigated with Saline -Foul Odor after Cleansing No -Bioengineered Tissue No -Bleeding Controlled with Pressure -Offloading No -Treatment Response Procedure Tolerated Well -Debridement - Subq, 1st 20sq cm Yes -Debridement, SubQ, ea addt'l 20sq cm 4 or part thereof Pain Scale: 0-10 Numeric Is Patient Pain Free? Yes - Nurse 3 - General Ulcer D/C NN Start: 03/25/21 13:11 Freq: Status: Active Protocol: Activity Type Activity Date Activity User E-Sign Co-Sign Detail Recorded Client Recorded Date Recorded By Document 03/25/21 15:03 [facility] [id number] 03/25/21 15:03 [facility] Document 03/31/21 10:23 DL [id number] 03/31/21 10:24 DL 03/25/21 03/31/21 15:03 10:23 Wound Care Nurse 3 #3- LLE LAT POST OP -Ulcer Cleansing Rinsed/ Rinsed/ Irrigated with Irrigated with Saline Saline -Foul Odor after Cleansing No No -Negative Pressure Wound Therapy Continue Continue -Setting (mmHg) 150 150 -Negative Pressure is Continuous Continuous -Other Covering nia -NPWT Application Charge ($) NPWT > 50 sq cm NPWT </= 50 sq cm Treatment Response Procedure Procedure Tolerated Well Tolerated Well Pain Scale: 0-10 Numeric Is Patient Pain Free? Yes Yes WC - Visit Discharge Discharge Condition Stable Stable Ambulatory Status Ambulatory Ambulatory Transportation Private Auto Private Auto Accompanied by son Notes: Dressing applied per Mari [place] today. Facility Type Home Health Wound debrided: lateral leg ulcer Laterality: Left Type of Debridement: Excisional debridement Anesthesia Used: 5% Lidocaine Gel Depth: Down to and including healthy tissue and in the subcutaneous layer Percentage of wound debrided: 100 Instrument Used: 5mm curette Tissue Removed: Subcutaneous tissue and slough Severity: Fat Layer Exposed Amount of bleeding with debridement: Mild Bleeding Controlled with: Pressure and Compression and gauze Patient tolerated procedure: Patient tolerated procedure well Assessment/Plan Assessment/Plan (1) Ulcer of left lower extremity with fat layer exposed: CODE(S): L97.922 - Non-pressure 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 (2) Traumatic hematoma of left lower leg with infection: CODE(S): S80.12XA - Contusion of left lower leg, initial encounter; L08.9 - Local infection of the skin and subcutaneous tissue, unspecified (3) Factor 5 Leiden mutation, heterozygous: CODE(S): D68.51 - Activated protein C resistance (4) Debility: CODE(S): R53.81 - Other malaise PLAN: Wound care - Wound VAC at 150 mmHg. Dressing to be changed three times per week. She has home health to assist with the VAC dressing change. She may remove the wound vac dressing before home health comes and shower, wash ulcer with soap and water before dressing change. Follow up one week.
[2021-04-07 09:51] VITALS: BP 117/59; PULSE 78; RESP 20; TEMP 36.6; BMI 40.8
--- NOTE | 2021-04-07 13:00 | PN.PCM_ITS ---
History of Present Illness Date of Service: 04/07/21 Chief Complaint: Traumatic ulcer to the left anterolateral leg History of Wound: 70 YEAR OLD WOMAN PRESENTS WITH A TRAUMATIC INFECTED HEMATOMA LEFT ANTEROLATERAL LEG WITH ASSOCIATED SKIN NECROSIS THAT SHE SUSTAINED ON JANUARY 31, 2021 WHEN SHE FELL AT HOME. SHE IS ON ELIQUIS FOR FACTOR V DEFICIENCY. SHE WENT TO THE ED WHERE THE LACERATION WAS CLEANSED AND SUTURED CLOSED. X-RAY IN THE ED WAS NEGATIVE FOR FRACTURE OR DISLOCATION. SHE FOLLOWED UP WITH HER PCP WHO NOTED SOME SLIGHT WOUND SEPARATION AFTER REMOVING SOME SUTURES. THE LEG WAS WRAPPED WITH GAUZE AND A COMPRESSION NIA WRAP. SOME REDNESS WAS NOTED SUPERIORLY AND SHE WAS STARTED ON DOXYCYCLINE AND CLINDAMYCIN. ALSO SOME SKIN NECROSIS WAS SEEN MEDIALLY. Surgery on 02/18/21 for Surgical preparation left anterolateral leg with incision and drainage and evacuation traumatic infected hematoma and excisional debridement skin necrosis (156 cm2). Operative cultures were positive for Pseudomonas aeroginosa and Anaerobic cocci. She was treated with Levaquin. Wound care - Wound VAC at 150 mmHg, to be changed 3 times per week. She was transferred to TCU on 02/21/21. She was discharged from TCU on 03/14/21 with home health. Progress of Wound: Improved. Objective Data Objective Data Vital Signs: Vital Signs Temp Pulse Resp BP 97.9 F 78 20 H 117/59 L 04/07/21 09:51 04/07/21 09:51 04/07/21 09:51 04/07/21 09:51 Oxygen Delivery Method Room Air Weight: 223 lb Body Mass Index (BMI) 40.8 Charges/Coding Procedures Integumentary 111xxx-113xx: [id number] Global Visit Physical Exam Const alert and oriented x3 General Appearance: cooperative HEENT normocephalic Eyes PERRL Lymph Lymphatic: no lymphedema noted Resp normal respiratory effort Cardio regular rate GI non-tender Palpation: soft Extremity normal capillary refill and no calf tenderness Skin Wound Narrative: Left lateral leg ulcer is beefy pink, granulation tissue present. Neuro CN's II-XII intact bilaterally Psych Appearance: grossly normal Debridement Note Debridement Note Post-Debridement Measurements and Additional Note: Post-Debridement Measurements/Treatment ANTHONY - Nurse 1 - General Ulcer Assessment Start: 03/25/21 13:11 Freq: Status: Active Protocol: LOWEXT Activity Type Activity Date Activity User E-Sign Co-Sign Detail Recorded Client Recorded Date Recorded By Document 03/25/21 13:12 [facility] [id number] 03/25/21 13:30 [facility] Document 03/31/21 09:33 DL [id number] 03/31/21 09:41 DL Document 04/07/21 09:51 DL [id number] 04/07/21 10:04 DL 03/25/21 03/31/21 04/07/21 13:12 09:33 09:51 WC - Today's Visit Information Type of service Initial Visit Follow-up Visit Follow-up Visit (Physician/LABOR AND EMPLOYMENT [employer]GAL (Physician/LABOR AND EMPLOYMENT PARALEGAL ) ) Arrival Mode Ambulatory, Ambulatory, Ambulatory Walker Walker Transfer Assistance None Transfer Board None Accompanied by son Patient Identification Verified (Name & Yes Yes Yes ) Patient Requires Transmission-Based No No No Precautions Height and Weight Height 5 ft 2 in Weight 223 lb Weight in Pounds 223.0 lbs Weight Measurement Method Stated by Patient Body Mass Index (BMI) 40.8 40.8 40.8 BMI Classification Obese Obese Obese BSA - Erica 2.00 Vital Signs Temperature (97.8 F-99.1 F) 97.5 F L 97.1 F L 97.9 F Temperature Source Temporal Temporal Temporal Pulse Rate (60-100) 91 87 78 Pulse Location Monitor Monitor Monitor Respiratory Rate (12-18) 16 20 H 20 H Respiratory rate source Observation Observation Observation Oxygen Delivery Method Room Air Blood Pressure (90/60-120/80) 118/54 L 118/57 L 117/59 L Blood Pressure Mean (mm Hg) 75 77 78 Source Monitor Monitor Monitor Position Sitting Blood Pressure Location Right Forearm Have you changed medications since your No No last visit? Any new allergies or adverse reactions No No Had a fall/change in ADL's that may No No increase risk of falls Signs or symptoms of abuse and/or No No neglect since last visit Have you been in the hospital since your No No last visit? Has dressing in place as prescribed Yes Yes Has compression in place as prescribed Yes Yes Has offloadiing in place as prescribed N/A Yes Experienced any changes in pain level or No No management History Since Last Visit- (Skip if this is Patient's initial visit) Left Footwear Regular Shoe Slipper Right Footwear Regular Shoe Slipper Pain Scale: 0-10 Numeric Is Patient Pain Free? Yes Yes Yes WC - Nurse 1 - General Ulcer Measurement Start: 03/25/21 13:11 Freq: Status: Active Protocol: Activity Type Activity Date Activity User E-Sign Co-Sign Detail Recorded Client Recorded Date Recorded By Document 03/25/21 13:12 [facility] [id number] 03/25/21 13:30 [facility] Document 03/31/21 09:33 DL [id number] 03/31/21 09:41 DL Document 04/07/21 09:51 DL [id number] 04/07/21 10:04 DL 03/25/21 03/31/21 04/07/21 13:12 09:33 09:51 Wound Center Nurse 1 #3- LLE LAT POST OP -Combined with other wound No -Current Size (cm) - Length 9.1 8.4 7.8 -Current Size (cm) - Width 8.8 8 7.5 -Current Size (cm) - Depth 0.1 0.1 0.1 -Total Square Cm 80.08 67.2 58.50 -Date of Last Picture (Recall this 03/25/21 field) -Photo Taken Yes No No -Epithelialization None Present -Tunneling No -Undermining/Tunneling No -Circular Undermining No -Exudate Amt Medium Medium Medium -Exudate Type Serosanguineous Serosanguineous Serosanguineous -Wound Margin Distinct, Distinct, Distinct, Outline Outline Outline Attached Attached Attached -Granulation Amt Large (67-100%) Large (67-100%) Large (67-100%) -Granulation Quality Red Red Red -Slough/Fibrin No -Necrosis Amt None Present (0 Small (1-33%) Small (1-33%) %) -Necrotic Tissue Type Adherent Slough Adherent Slough -Structure Exposed N/A N/A -Texture (Rubia-wound Skin Appearance) Assessed Scarring Scarring -Moisture (Rubia-wound Skin Appearance) Assessed No Abnormality No Abnormality -Color (Rubia-wound Skin Appearance) Assessed No Abnormality No Abnormality -Temperature (Rubia-wound Skin No Abnormality No Abnormality No Abnormality Appearance) (Pt Warm) (Pt Warm) (Pt Warm) -Tenderness on Palpation (Rubia-wound No No Skin Appearance) -Ulcer Cleansing SOAPY WATER Wound Cleanser Wound Cleanser -Foul Odor after Cleansing No No No -Anesthetic Used 4% Lidocaine 4% Lidocaine 4% Lidocaine Solution Solution Solution,5% Lidocaine Gel Lower Limb Edema Present Yes Right Calf (cm) 45 Right Ankle (cm) 31.1 Left Calf (cm) 40.6 41.2 Left Ankle (cm) 26.8 25.2 WC - Nurse 2 - General Ulcer CM Notes Start: 03/25/21 13:11 Freq: Status: Active Protocol: Activity Type Activity Date Activity User E-Sign Co-Sign Detail Recorded Client Recorded Date Recorded By Document 03/25/21 13:44 JF [id number] 03/25/21 13:48 JF Document 03/31/21 12:22 PL [id number] 03/31/21 12:23 PL 03/25/21 03/31/21 13:44 12:22 Wound Center Nurse 2 #3- LLE LAT POST OP -Time 13:45 10:00 -Correct Patient Yes Yes -Correct Side, Site, Position Yes Yes -Correct Procedure Yes Yes -Procedure Performed Yes Yes -Type of Procedure Debridement Debridement -Clinical Debridement Subcutaneous Subcutaneous -Tissue Removed Subcutaneous Subcutaneous -Post Debridement (cm) - Length 8.7 8.0 -Post Debridement (cm) - Width 9.3 8.5 -Post Debridement (cm) - Depth 0.2 0.3 -Total Square (Post) (cm) 80.91 68.00 -Area of Debridement (cm) - Length 8.7 8.0 -Area of Debridement (cm) - Width 9.3 8.5 -Total Square (Area) (cm) 80.91 68.00 -Tunneling No No -Undermining/Tunneling No No -Circular Undermining No No -Wound/Ulcer Outcome Not Healed Not Healed -Ulcer Cleansing Rinsed/ Rinsed/ Irrigated with Irrigated with Saline Saline -Foul Odor after Cleansing No No -Bioengineered Tissue No No -Bleeding Controlled with Pressure -Offloading No -Treatment Response Procedure Tolerated Well -Debridement - Subq, 1st 20sq cm Yes Yes -Debridement, SubQ, ea addt'l 20sq cm 4 3 or part thereof Pain Scale: 0-10 Numeric Is Patient Pain Free? Yes Yes - Nurse 3 - General Ulcer D/C NN Start: 03/25/21 13:11 Freq: Status: Active Protocol: Activity Type Activity Date Activity User E-Sign Co-Sign Detail Recorded Client Recorded Date Recorded By Document 03/25/21 15:03 [facility] [id number] 03/25/21 15:03 [facility] Document 03/31/21 10:23 DL [id number] 03/31/21 10:24 DL Document 04/07/21 11:36 DL [id number] 04/07/21 11:37 DL 03/25/21 03/31/21 04/07/21 15:03 10:23 11:36 Wound Care Nurse 3 #3- LLE LAT POST OP -Ulcer Cleansing Rinsed/ Rinsed/ Rinsed/ Irrigated with Irrigated with Irrigated with Saline Saline Saline -Foul Odor after Cleansing No No No -Negative Pressure Wound Therapy Continue Continue Continue -Setting (mmHg) 150 150 150 -Negative Pressure is Continuous Continuous Continuous -Other Dressing vac applied per d floyd doctor of radiology -Other Covering nia -NPWT Application Charge ($) NPWT > 50 sq cm NPWT </= 50 sq NPWT </= 50 sq cm cm Treatment Response Procedure Procedure Procedure Tolerated Well Tolerated Well Tolerated Well Pain Scale: 0-10 Numeric Is Patient Pain Free? Yes Yes Yes WC - Visit Discharge Discharge Condition Stable Stable Stable Ambulatory Status Ambulatory Ambulatory Ambulatory, Walker Transportation Private Auto Private Auto Private Auto Accompanied by son son Notes: Dressing applied per Mari [place] today. Facility Type Home Health Home Health Wound debrided: Lateral leg Laterality: Left Type of Debridement: Excisional debridement Anesthesia Used: 5% Lidocaine Gel Depth: Down to and including healthy tissue and in the subcutaneous layer Percentage of wound debrided: 100 Instrument Used: 5mm curette Tissue Removed: Subcutaneous tissue and slough Severity: Fat Layer Exposed Amount of bleeding with debridement: Mild Bleeding Controlled with: Pressure Patient tolerated procedure: Patient tolerated procedure well Assessment/Plan Assessment/Plan (1) Ulcer of left lower extremity with fat layer exposed: CODE(S): L97.922 - Non-pressure 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 (2) Traumatic hematoma of left lower leg with infection: CODE(S): S80.12XA - Contusion of left lower leg, initial encounter; L08.9 - Local infection of the skin and subcutaneous tissue, unspecified QUALIFIERS: Encounter type: initial encounter Qualified Code(s): S80.12XA - Contusion of left lower leg, initial encounter; L08.9 - Local infection of the skin and subcutaneous tissue, unspecified (3) Factor 5 Leiden mutation, heterozygous: CODE(S): D68.51 - Activated protein C resistance (4) Debility: CODE(S): R53.81 - Other malaise PLAN: Wound care - Wound VAC at 150 mmHg. Dressing to be changed three times per week. She has home health to assist with the VAC dressing change. She may remove the wound vac dressing before home health comes and shower, wash ulcer with soap and water before dressing change. 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 We will watch for increased bleeding with debridements. Follow up one week.
[2021-04-14 11:10] VITALS: BP 118/69; PULSE 83; RESP 18; TEMP 36.8; BMI 40.8
--- NOTE | 2021-04-14 15:09 | PCM.WC.PN ---
History of Present Illness Date of Service: 04/14/21 Chief Complaint: Traumatic ulcer to the left anterolateral leg History of Wound: 70 YEAR OLD WOMAN PRESENTS WITH A TRAUMATIC INFECTED HEMATOMA LEFT ANTEROLATERAL LEG WITH ASSOCIATED SKIN NECROSIS THAT SHE SUSTAINED ON JANUARY 31, 2021 WHEN SHE FELL AT HOME. SHE IS ON ELIQUIS FOR FACTOR V DEFICIENCY. SHE WENT TO THE ED WHERE THE LACERATION WAS CLEANSED AND SUTURED CLOSED. X-RAY IN THE ED WAS NEGATIVE FOR FRACTURE OR DISLOCATION. SHE FOLLOWED UP WITH HER PCP WHO NOTED SOME SLIGHT WOUND SEPARATION AFTER REMOVING SOME SUTURES. THE LEG WAS WRAPPED WITH GAUZE AND A COMPRESSION NIA WRAP. SOME REDNESS WAS NOTED SUPERIORLY AND SHE WAS STARTED ON DOXYCYCLINE AND CLINDAMYCIN. ALSO SOME SKIN NECROSIS WAS SEEN MEDIALLY. Surgery on 02/18/21 for Surgical preparation left anterolateral leg with incision and drainage and evacuation traumatic infected hematoma and excisional debridement skin necrosis (156 cm2). Operative cultures were positive for Pseudomonas aeroginosa and Anaerobic cocci. She was treated with Levaquin. Wound care - Discontinue wound VAC. Start daily Silver alginate dressing changes, covered with gauze. Tubigrip for compression. She would benefit from an advanced wound care product such as Epifix to help with wound healing. She was transferred to TCU on 02/21/21. She was discharged from TCU on 03/14/21 with home health. Today she denies fevers and states her appetite is good. Progress of Wound: Improved. Objective Data Objective Data Vital Signs: Vital Signs Temp Pulse Resp BP 98.3 F 83 18 118/69 04/14/21 11:10 04/14/21 11:10 04/14/21 11:10 04/14/21 11:10 Oxygen Delivery Method Room Air Weight: 223 lb Body Mass Index (BMI) 40.8 Physical Exam Const alert and oriented x3 General Appearance: cooperative HEENT normocephalic Head and Scalp: atraumatic Eyes PERRL Lymph Lymphatic: no lymphedema noted Resp normal respiratory effort Cardio regular rate GI non-tender Palpation: soft Extremity no calf tenderness General Extremity: edema Skin Wound Narrative: Left lateral leg ulcer is beefy pink. Decreased in depth. Improving in size. Periwound looks good. Neuro CN's II-XII intact bilaterally Psych Appearance: grossly normal Debridement Note Debridement Note Post-Debridement Measurements and Additional Note: Post-Debridement Measurements/Treatment WC - Nurse 1 - General Ulcer Assessment Start: 03/25/21 13:11 Freq: Status: Active Protocol: ANTHONY.PEDRO PABLO Activity Type Activity Date Activity User E-Sign Co-Sign Detail Recorded Client Recorded Date Recorded By Document 03/25/21 13:12 BM [id number] 03/25/21 13:30 BMF Document 03/31/21 09:33 DL [id number] 03/31/21 09:41 DL Document 04/07/21 09:51 DL [id number] 04/07/21 10:04 DL Document 04/14/21 11:10 PL [id number] 04/14/21 11:21 PL 03/25/21 03/31/21 04/07/21 13:12 09:33 09:51 WC - Today's Visit Information Type of service Initial Visit Follow-up Visit Follow-up Visit (Physician/BREAK OUT MAN (Physician/BREAK OUT MAN ) ) Arrival Mode Ambulatory, Ambulatory, Ambulatory Walker Walker Transfer Assistance None Transfer Board None Accompanied by son Patient Identification Verified (Name & Yes Yes Yes ) Patient Requires Transmission-Based No No No Precautions Safety Precautions Height and Weight Height 5 ft 2 in Weight 223 lb Weight in Pounds 223.0 lbs Weight Measurement Method Stated by Patient Body Mass Index (BMI) 40.8 40.8 40.8 BMI Classification Obese Obese Obese BSA - Erica 2.00 Vital Signs Temperature (97.8 F-99.1 F) 97.5 F L 97.1 F L 97.9 F Temperature Source Temporal Temporal Temporal Pulse Rate (60-100) 91 87 78 Pulse Location Monitor Monitor Monitor Respiratory Rate (12-18) 16 20 H 20 H Respiratory rate source Observation Observation Observation Oxygen Delivery Method Room Air Blood Pressure (90/60-120/80) 118/54 L 118/57 L 117/59 L Blood Pressure Mean (mm Hg) 75 77 78 Source Monitor Monitor Monitor Position Sitting Blood Pressure Location Right Forearm Have you changed medications since your No No last visit? Any new allergies or adverse reactions No No Had a fall/change in ADL's that may No No increase risk of falls Signs or symptoms of abuse and/or No No neglect since last visit Have you been in the hospital since your No No last visit? Has dressing in place as prescribed Yes Yes Has compression in place as prescribed Yes Yes Has offloadiing in place as prescribed N/A Yes Experienced any changes in pain level or No No management History Since Last Visit- (Skip if this is Patient's initial visit) Left Footwear Regular Shoe Slipper Right Footwear Regular Shoe Slipper Pain Scale: 0-10 Numeric Is Patient Pain Free? Yes Yes Yes 04/14/21 11:10 - Today's Visit Information Type of service Follow-up Visit (Physician/BREAK OUT MAN ) Arrival Mode Walker Transfer Assistance None Accompanied by Patient Identification Verified (Name & Yes ) Patient Requires Transmission-Based No Precautions Safety Precautions NA Height and Weight Height Weight Weight in Pounds Weight Measurement Method Body Mass Index (BMI) 40.8 BMI Classification Obese [facility] - Erica Vital Signs Temperature (97.8 F-99.1 F) 98.3 F Temperature Source Temporal Pulse Rate (60-100) 83 Pulse Location Respiratory Rate (12-18) 18 Respiratory rate source Oxygen Delivery Method Blood Pressure (90/60-120/80) 118/69 Blood Pressure Mean (mm Hg) 85 Source Position Blood Pressure Location Have you changed medications since your No last visit? Any new allergies or adverse reactions No Had a fall/change in ADL's that may No increase risk of falls Signs or symptoms of abuse and/or No neglect since last visit Have you been in the hospital since your No last visit? Has dressing in place as prescribed Yes Has compression in place as prescribed Yes Has offloadiing in place as prescribed No Experienced any changes in pain level or No management History Since Last Visit- (Skip if this is Patient's initial visit) Left Footwear Right Footwear Pain Scale: 0-10 Numeric Is Patient Pain Free? Yes - Nurse 1 - General Ulcer Measurement Start: 03/25/21 13:11 Freq: Status: Active Protocol: Activity Type Activity Date Activity User E-Sign Co-Sign Detail Recorded Client Recorded Date Recorded By Document 03/25/21 13:12 BMF [id number] 03/25/21 13:30 BMF Document 03/31/21 09:33 DL [id number] 03/31/21 09:41 DL Document 04/07/21 09:51 DL [id number] 04/07/21 10:04 DL Document 04/14/21 11:10 PL [id number] 04/14/21 11:21 PL 03/25/21 03/31/21 04/07/21 13:12 09:33 09:51 Wound Center Nurse 1 #3- LLE LAT POST OP -Combined with other wound No -Current Size (cm) - Length 9.1 8.4 7.8 -Current Size (cm) - Width 8.8 8 7.5 -Current Size (cm) - Depth 0.1 0.1 0.1 -Total Square Cm 80.08 67.2 58.50 -Date of Last Picture (Recall this 03/25/21 field) -Photo Taken Yes No No -Epithelialization None Present -Tunneling No -Undermining/Tunneling No -Circular Undermining No -Exudate Amt Medium Medium Medium -Exudate Type Serosanguineous Serosanguineous Serosanguineous -Wound Margin Distinct, Distinct, Distinct, Outline Outline Outline Attached Attached Attached -Granulation Amt Large (67-100%) Large (67-100%) Large (67-100%) -Granulation Quality Red Red Red -Slough/Fibrin No -Necrosis Amt None Present (0 Small (1-33%) Small (1-33%) %) -Necrotic Tissue Type Adherent Slough Adherent Slough -Structure Exposed N/A N/A -Texture (Rubia-wound Skin Appearance) Assessed Scarring Scarring -Moisture (Rubia-wound Skin Appearance) Assessed No Abnormality No Abnormality -Color (Rubia-wound Skin Appearance) Assessed No Abnormality No Abnormality -Temperature (Rubia-wound Skin No Abnormality No Abnormality No Abnormality Appearance) (Pt Warm) (Pt Warm) (Pt Warm) -Tenderness on Palpation (Rubia-wound No No Skin Appearance) -Ulcer Cleansing SOAPY WATER Wound Cleanser Wound Cleanser -Foul Odor after Cleansing No No No -Anesthetic Used 4% Lidocaine 4% Lidocaine 4% Lidocaine Solution Solution Solution,5% Lidocaine Gel Lower Limb Edema Present Yes Right Calf (cm) 45 Right Ankle (cm) 31.1 Left Calf (cm) 40.6 41.2 Left Ankle (cm) 26.8 25.2 04/14/21 11:10 Wound Center Nurse 1 #3- LLE LAT POST OP -Combined with other wound No -Current Size (cm) - Length 7.2 -Current Size (cm) - Width 7.2 -Current Size (cm) - Depth 0.2 -Total Square Cm 51.84 -Date of Last Picture (Recall this field) -Photo Taken No -Epithelialization None Present -Tunneling No -Undermining/Tunneling No -Circular Undermining No -Exudate Amt Medium -Exudate Type Serosanguineous -Wound Margin -Granulation Amt Large (67-100%) -Granulation Quality [place],Red -Slough/Fibrin Yes -Necrosis Amt Small (1-33%) -Necrotic Tissue Type Adherent Slough -Structure Exposed -Texture (Rubia-wound Skin Appearance) -Moisture (Rubia-wound Skin Appearance) -Color (Rubia-wound Skin Appearance) -Temperature (Rubia-wound Skin Appearance) -Tenderness on Palpation (Rubia-wound Skin Appearance) -Ulcer Cleansing -Foul Odor after Cleansing -Anesthetic Used Lower Limb Edema Present Right Calf (cm) Right Ankle (cm) Left Calf (cm) Left Ankle (cm) WC - Nurse 2 - General Ulcer CM Notes Start: 03/25/21 13:11 Freq: Status: Active Protocol: Activity Type Activity Date Activity User E-Sign Co-Sign Detail Recorded Client Recorded Date Recorded By Document 03/25/21 13:44 JF [id number] 03/25/21 13:48 JF Document 03/31/21 12:22 PL [id number] 03/31/21 12:23 PL Document 04/07/21 13:25 PL [id number] 04/07/21 13:26 PL Document 04/14/21 11:29 JF [id number] 04/14/21 11:33 JF 03/25/21 03/31/21 04/07/21 13:44 12:22 13:25 Wound Center Nurse 2 #3- LLE LAT POST OP -Time 13:45 10:00 11:04 -Correct Patient Yes Yes Yes -Correct Side, Site, Position Yes Yes Yes -Correct Procedure Yes Yes Yes -Procedure Performed Yes Yes Yes -Type of Procedure Debridement Debridement Debridement -Clinical Debridement Subcutaneous Subcutaneous Subcutaneous -Tissue Removed Subcutaneous Subcutaneous Subcutaneous -Post Debridement (cm) - Length 8.7 8.0 8.0 -Post Debridement (cm) - Width 9.3 8.5 8.3 -Post Debridement (cm) - Depth 0.2 0.3 0.3 -Total Square (Post) (cm) 80.91 68.00 66.40 -Area of Debridement (cm) - Length 8.7 8.0 8.0 -Area of Debridement (cm) - Width 9.3 8.5 8.3 -Total Square (Area) (cm) 80.91 68.00 66.40 -Tunneling No No No -Undermining/Tunneling No No No -Circular Undermining No No No -Wound/Ulcer Outcome Not Healed Not Healed Not Healed -Ulcer Cleansing Rinsed/ Rinsed/ Rinsed/ Irrigated with Irrigated with Irrigated with Saline Saline Saline -Foul Odor after Cleansing No No No -Bioengineered Tissue No No No -Bleeding Controlled with Pressure Pressure -Offloading No -Treatment Response Procedure Procedure Tolerated Well Tolerated Well -Debridement - Subq, 1st 20sq cm Yes Yes Yes -Debridement, SubQ, ea addt'l 20sq cm 4 3 3 or part thereof Pain Scale: 0-10 Numeric Is Patient Pain Free? Yes Yes Yes 04/14/21 11:29 Wound Center Nurse 2 #3- LLE LAT POST OP -Time 11:30 -Correct Patient Yes -Correct Side, Site, Position Yes -Correct Procedure Yes -Procedure Performed Yes -Type of Procedure Debridement -Clinical Debridement Subcutaneous -Tissue Removed Subcutaneous -Post Debridement (cm) - Length 7.8 -Post Debridement (cm) - Width 7.5 -Post Debridement (cm) - Depth 0.1 -Total Square (Post) (cm) 58.50 -Area of Debridement (cm) - Length 7.8 -Area of Debridement (cm) - Width 7.5 -Total Square (Area) (cm) 58.50 -Tunneling No -Undermining/Tunneling No -Circular Undermining No -Wound/Ulcer Outcome Not Healed -Ulcer Cleansing Rinsed/ Irrigated with Saline -Foul Odor after Cleansing No -Bioengineered Tissue No -Bleeding Controlled with Pressure -Offloading No -Treatment Response Procedure Tolerated Well -Debridement - Subq, 1st 20sq cm Yes -Debridement, SubQ, ea addt'l 20sq cm 2 or part thereof Pain Scale: 0-10 Numeric Is Patient Pain Free? WC - Nurse 3 - General Ulcer D/C NN Start: 03/25/21 13:11 Freq: Status: Active Protocol: Activity Type Activity Date Activity User E-Sign Co-Sign Detail Recorded Client Recorded Date Recorded By Document 03/25/21 15:03 BMF [id number] 03/25/21 15:03 BMF Document 03/31/21 10:23 DL [id number] 03/31/21 10:24 DL Document 04/07/21 11:36 DL [id number] 04/07/21 11:37 DL Document 04/14/21 11:58 AK [id number] 04/14/21 12:02 AK 03/25/21 03/31/21 04/07/21 15:03 10:23 11:36 Wound Care Nurse 3 #3- LLE LAT POST OP -Ulcer Cleansing Rinsed/ Rinsed/ Rinsed/ Irrigated with Irrigated with Irrigated with Saline Saline Saline -Foul Odor after Cleansing No No No -Negative Pressure Wound Therapy Continue Continue Continue -Setting (mmHg) 150 150 150 -Negative Pressure is Continuous Continuous Continuous -Primary Dressing Applied -Other Dressing vac applied per d floyd fire and safety helper -Primary Dressing Covered/Secured with -Other Covering nia -NPWT Application Charge ($) NPWT > 50 sq cm NPWT </= 50 sq NPWT </= 50 sq cm cm -Aquacel AG 4x4 Left -Lotion applied to leg before compression wrap -Tubular Bandage -Size of Tubigrip Used -Size E ($) -Stockings Treatment Response Procedure Procedure Procedure Tolerated Well Tolerated Well Tolerated Well Pain Scale: 0-10 Numeric Is Patient Pain Free? Yes Yes Yes WC - Visit Discharge Discharge Condition Stable Stable Stable Ambulatory Status Ambulatory Ambulatory Ambulatory, Walker Transportation Private Auto Private Auto Private Auto Accompanied by son son Notes: Dressing applied per Mari [place] today. Facility Type Home Health [facility] 04/14/21 11:58 Wound Care Nurse 3 #3- LLE LAT POST OP -Ulcer Cleansing Rinsed/ Irrigated with Saline -Foul Odor after Cleansing No -Negative Pressure Wound Therapy -Setting (mmHg) -Negative Pressure is -Primary Dressing Applied Aquacel AG 4x4 -Other Dressing -Primary Dressing Covered/Secured with Dry Gauze,Dry Gauze & Roll Gauze,Secured with Tape -Other Covering -NPWT Application Charge ($) -Aquacel AG 4x4 1 Left -Lotion applied to leg before No compression wrap -Tubular Bandage Double Layer -Size of Tubigrip Used Size E -Size E ($) 2 -Stockings No Treatment Response Pain Scale: 0-10 Numeric Is Patient Pain Free? WC - Visit Discharge Discharge Condition Ambulatory Status Transportation Accompanied by Notes: Facility Type Wound debrided: Lateral leg ulcer Laterality: Left Type of Debridement: Excisional debridement Anesthesia Used: 5% Lidocaine Gel Depth: Down to and including healthy tissue and in the subcutaneous layer Percentage of wound debrided: 100 Instrument Used: 5mm curette Tissue Removed: Subcutaneous tissue and slough Severity: Fat Layer Exposed Amount of bleeding with debridement: Mild Bleeding Controlled with: Pressure Patient tolerated procedure: Patient tolerated procedure well Assessment/Plan Assessment/Plan (1) Ulcer of left lower extremity with fat layer exposed: CODE(S): L97.922 - Non-pressure 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 (2) Factor 5 Leiden mutation, heterozygous: CODE(S): D68.51 - Activated protein C resistance (3) Traumatic hematoma of left lower leg with infection: CODE(S): S80.12XA - Contusion of left lower leg, initial encounter; L08.9 - Local infection of the skin and subcutaneous tissue, unspecified QUALIFIERS: Encounter type: initial encounter Qualified Code(s): S80.12XA - Contusion of left lower leg, initial encounter; L08.9 - Local infection of the skin and subcutaneous tissue, unspecified (4) Debility: CODE(S): R53.81 - Other malaise PLAN: Wound care - Discontinue wound VAC. Will start daily Silver Alginate dressings covered with gauze daily. May wash ulcer with soap and water daily before dressing changes. Patient would benefit from an advanced wound product, such as Epifix, to help expedite the healing process. Encouraged increase protein intake to help with wound healing. 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 We will watch for increased bleeding with debridement. Follow up one week.
== END 2021-04-19 23:59 ==
LOC: WC 11:15
PROVIDERS: PCP Family Medicine Geriatric Medicine; Visit Provider Nurse Practitioner Family
DX: L97.822 Non-pressure chronic ulcer of other 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 (principal); I96 Gangrene, not elsewhere classified; S80.12XS Contusion of left lower leg, sequela; W19.XXXS Unspecified fall, sequela; D68.2 Hereditary deficiency of other clotting factors; D68.51 Activated protein C resistance; R60.0 Localized edema; E66.9 Obesity, unspecified; Z68.41 Body mass index [BMI] 40.0-44.9, adult; Z79.01 Long term (current) use of anticoagulants; Z79.899 Other long term (current) drug therapy
CPT/HCPCS: 11042; 11045; 97605; 97606; 99213; G0463

== ENCOUNTER 2021-04-23 21:37 | Emergency (ER) | payer MEDICARE, OTHER, SELFPAY ==
[2021-04-21 10:50] VITALS: BMI 40.8
[2021-04-23 21:38] VITALS: BP 94/50; PULSE 82; RESP 18; TEMP 36.4; O2SAT 98; BMI 40.3
--- NOTE | 2021-04-23 22:38 | EKG12_ITS ---
Test Reason : WEAKNESS Blood Pressure : / mmHG Vent. Rate : 071 BPM Atrial Rate : 071 BPM P-R Int : 162 ms QRS Dur : 104 ms QT Int : 436 ms P-R-T Axes : 011 004 072 degrees QTc Int : 473 ms Normal sinus rhythm Normal ECG Confirmed by ROHAN SANCHEZ, KAIDEN ([id number]), technical writer and editor YESSI OH ([id number]) on 04/28/2021 9:36:54 AM Referred By: Confirmed By:KAIDEN MADRIGAL MD
--- NOTE | 2021-04-23 22:41 | RAD_ITS ---
STUDY: X-RAY CHEST REASON FOR EXAM: Female, 71 years old. weakness TECHNIQUE: Single AP portable view of the chest. COMPARISON: None. FINDINGS: The lungs are clear and expanded. There is no demonstrated pleural abnormality. Normal size heart. Normal mediastinum and marlene. Normal visualized pulmonary arteries. Normal visualized aortic arch and descending thoracic aorta. Normal visualized thoracic spine. Normal visualized ribs, clavicles, and shoulders. There is no demonstrated abnormality of the visualized soft tissue structures of the upper abdomen. RAD/Chest 1 View (Portable) IMPRESSION: Normal x-ray examination of the chest. Electronically Signed: Varun Moralez DO at 23:30 EDT Tel , Service support ,
--- NOTE | 2021-04-23 22:41 | EX.ED.DYSGE1 ---
HPI History of Present Illness Chief Complaint: Weakness Informant: patient and family Narrative Narrative: 71 her throat frequently presents the emergency department reporting generalized weakness. Patient states that earlier tonight she developed abdominal cramping went to the bathroom. She went and laid down and the abdominal cramping continued. She had a couple episode of diarrhea. She states that she started feeling shaky and weak and felt like she may pass out. No reported fevers. No nausea vomiting. No tachycardia or chest pain. Patient is feeling better now. [facility] Medical History Allergies Anxiety Arthritis Atrial fibrillation Cardiology follow-up encounter Cellulitis of left lower leg CKD (chronic kidney disease) CKD (chronic kidney disease) CPAP (continuous positive airway pressure) dependence Depression DVT (deep venous thrombosis) Essential hypertension Factor V deficiency Fall as cause of accidental injury at home as place of occurrence Fall due to ice or snow Family history of coronary artery disease Family history of CVA Family history of hypertension Gastric reflux Head injury without concussion or intracranial hemorrhage Headache Hearing problem Hematoma of left lower extremity High cholesterol History of atrial fibrillation History of DVT (deep vein thrombosis) History of edema History of pain when walking History of stress test Hx of echocardiogram Hyperlipidemia Hypertension Injury of back Injury of head and neck 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 lower leg 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 Long-term use of high-risk medication Migraine headache Non-smoker Obesity, Class III, BMI 40-49.9 (morbid obesity) Open wound Open wound of left lower leg with complication VALENTIN (obstructive sleep apnea) Paroxysmal atrial fibrillation Skin necrosis Syncope Traumatic ulcer of left lower extremity Vision problems Walker as ambulation aid Wears glasses Wears hearing aid Home Medications levocetirizine 5 mg PO DAILY 09/29/13 [History Last Taken 09/29/13] montelukast 10 mg PO DAILY 09/29/13 [History Last Taken 09/28/13] omeprazole 20 mg PO DAILY 09/29/13 [History Last Taken 02/18/21] potassium chloride 20 meq PO BID 09/29/13 [History Last Taken 09/29/13] verapamil 240 mg PO DAILY 09/29/13 [History Last Taken 02/18/21] pravastatin 80 mg tablet 80 mg PO QHS 11/16/17 [History Last Taken Unknown] amitriptyline 25 mg tablet 25 mg PO QHS 10/25/19 [History Last Taken Unknown] cholecalciferol (vitamin D3) 10 mcg (400 unit) capsule 400 unit PO DAILY 10/25/19 [History Last Taken Unknown] galcanezumab-gnlm 120 mg/mL subcutaneous syringe 120 mg SC QMONTH 10/25/19 [History Last Taken Unknown] multivitamin 1 tab PO DAILY 04/26/20 [History Last Taken Unknown] zolpidem 10 mg tablet 10 mg PO QHS PRN PRN 10/03/20 [History Last Taken Unknown] divalproex [Depakote ER] 500 mg PO QHS 01/31/21 [History Last Taken Unknown] apixaban 5 mg PO BID 02/21/21 [History Last Taken Unknown] acetaminophen 1,000 mg PO Q6H PRN PRN #0 tab 03/11/21 [Rx Last Taken Unknown] nqhuc-qegl-VnKKO-crbokm-lz-key [Mustapha (with collagen)] 1 packet PO BIDCM 30 Days ea 03/11/21 [Rx Last Taken Unknown] citalopram 40 mg PO DAILY #0 tab 03/11/21 [Rx Last Taken Unknown] cinauoxj-obczjgdvt-pewbbvh HMB [Mustapha] 1 ea PO BID 30 Days #60 packet 03/17/21 [Rx Last Taken Unknown] Allergy/AdvReac Type Severity Reaction Status Date / Time cefdinir Allergy Hives Verified 04/23/21 21:42 diphenhydramine HCl Allergy Hives Verified 04/23/21 21:42 [From Benadryl] Sulfa (Sulfonamide Allergy Hives Verified 04/23/21 21:42 Antibiotics) Family History Brother CAD (coronary artery disease) Mother CVA (cerebral vascular accident) CAD (coronary artery disease) Son Hypertension Daughter Hypertension Other Arthritis Cancer Diabetes Family history of CVA Family history of coronary artery disease Family history of hypertension Heart disease High cholesterol Kidney disease Thyroid disorder Surgical History History of bilateral knee replacement History of cholecystectomy History of incision and drainage History of total hysterectomy Hx of cataract extraction Social History household members: spouse housing: house number of children: 2 current occupational status: retired current occupational exposures/hazards: No pets and animals: No Smoking Status: Never smoker alcohol intake: never substance use type: does not use caffeine: Yes Type: tea what type of physical activity do you participate in: none seatbelt use: always do you feel safe at home: Yes additional social history: Does Not Take Aspirin Does Not Take Ibuprofen ROS ROS ED ROS Narrative Generalized weakness Constitutional Constitutional ED: Denies chills or weight loss Eyes Eyes: Denies change in vision or diplopia ENT ENT ED: Denies ear pain, rhinorrhea or sore throat Cardiovascular Cardiovascular: Denies chest pain, orthopnea, palpitations or racing heartbeat Respiratory/Chest Respiratory/Chest: Denies cough, dyspnea or orthopnea Gastrointestinal Gastrointestinal: Reports abdominal pain and diarrhea; Denies nausea or vomiting Genitourinary Genitourinary ED: Denies dysuria, hematuria or urinary frequency Musculoskeletal Musculoskeletal: Denies arthralgias or myalgias Integumentary Denies abscess or rash Neurologic Neurologic: Denies headache(s) or weakness Psychiatric Psychiatric: Denies anxiety, depression, suicidal ideation or suicidal thoughts Endocrine Endocrinology: Denies polydipsia, polyphagia or polyuria Allergic/Immunologic Allergic/Immunologic ED: Denies mouth swelling, tongue swelling or urticaria EXAM Physical Exam Const Vital Signs: 04/23/21 21:38 04/23/21 21:42 04/23/21 23:56 Temperature 97.6 F L Temperature Source Oral Pulse Rate 82 77 Respiratory Rate 18 Respiratory Effort Normal Non-Labored Blood Pressure 94/50 L 110/64 Blood Pressure [Lying] Blood Pressure [Sitting] Blood Pressure [Standing] Blood Pressure Mean 64 79 Blood Pressure Mean [Lying] Blood Pressure Mean [Sitting] Blood Pressure Mean [Standing] Pulse Ox 98 Oxygen Delivery Method Room Air 04/24/21 00:26 04/24/21 00:27 Temperature Temperature Source Pulse Rate Respiratory Rate Respiratory Effort Blood Pressure 110/55 L Blood Pressure [Lying] 110/55 L Blood Pressure [Sitting] 115/60 Blood Pressure [Standing] 98/54 L Blood Pressure Mean 73 Blood Pressure Mean [Lying] 73 Blood Pressure Mean [Sitting] 78 Blood Pressure Mean [Standing] 68 Pulse Ox Oxygen Delivery Method Positive well nourished and well developed General Appearance ED: well developed HEENT Reports normocephalic, head/scalp atraumatic and moist mucous membranes Eyes PERRL and EOMs intact bilaterally Neck no lymphadenopathy, supple and no JVD Resp normal respiratory effort and clear to auscultation bilaterally Cardio regular rate, regular rhythm and no murmurs GI normal to inspection, nondistended, normoactive bowel sounds and non-tender Palpation: soft Back/Spine no CVA tenderness and normal ROM Extremity normal to inspection General Extremety ED: Negative for edema General Extremity: Negative for edema Neuro oriented x3 and CN's II-XII intact bilaterally Sensorium / Orientation: alert Motor Exam: strength 5/5 throughout Psych mental status grossly normal Mood & Affect: Negative for depressed or tearful Skin no rashes or lesions noted and no wounds MDM MDM MDM Narrative Medical decision making narrative: Basic blood work was obtained and negative. Urinalysis negative. Chest x-ray showed no acute process. Patient received a liter of IV fluids and Imodium. She did have an episode of diarrhea here. I think the patient most likely sustained a vagal reaction to the abdominal cramping in the setting of diarrhea. We obtained orthostatics and the patient does drop slightly but she is otherwise asymptomatic when she does so. Patient was advised that if she starts to feel the way she was at home to go ahead and lay down and wait for the symptoms to pass. Return if worsening or concerns Lab Data Attestation: I reviewed the patient's lab results. Labs: Laboratory Results - last 24 hr 04/23/21 04/23/21 04/23/21 21:25 21:25 Unknown WBC 5.3 RBC 3.78 L Hgb 10.7 L Hct 34.8 L MCV 92.1 MCH 28.3 MCHC 30.7 L RDW Std Deviation 44.5 H RDW Coeff of [place] 13.2 Plt Count 213 MPV 11.2 Immature Gran % (Auto) 0.600 Neut % (Auto) 48.4 Lymph % (Auto) 38.4 [place] % (Auto) 9.5 Eos % (Auto) 2.5 Baso % (Auto) 0.6 Absolute Neuts (auto) 2.6 Absolute Lymphs (auto) 2.03 Nucleated RBC % 0 Sodium 141 Potassium 3.6 Chloride 106 Carbon Dioxide 22.0 Anion Gap 13 BUN 32 H Creatinine 1.19 H Estim Creat Clear Calc 33.30 Est GFR (MDRD) Af Amer 57 L Est GFR (MDRD) Non-Af 47 L BUN/Creatinine Ratio 26.9 H Glucose 137 H Calcium 8.7 Total Bilirubin 0.30 AST 18 ALT 15 Alkaline Phosphatase 63 Troponin I High Sens 9.7 Total Protein 6.7 Albumin 3.0 L Globulin 3.7 Albumin/Globulin Ratio 0.8 L Urine Color Yellow Urine Clarity Clear Urine pH 5.0 Ur Specific [place] 1.020 Urine Protein 30 H Urine Glucose (UA) Normal Urine Ketones 5 H Urine Occult Blood Negative Urine Nitrite Negative Urine Bilirubin Negative Urine Urobilinogen 1 H Ur Leukocyte Esterase 100 H Urine RBC 0 SEEN Urine WBC 0-5 SEEN Ur Squamous Epith Cells 0-5 SEEN Urine Bacteria RARE Urine Mucus 0 SEEN Radiography Diagnostic Testing: Radiology Impression Chest X-Ray 04/23/21 22:41 IMPRESSION: Normal x-ray examination of the chest. Electronically Signed: Varun Moralez DO at 23:30 EDT Tel , Service support , EKG Initial EKG: Attestation: I personally reviewed and interpreted this EKG as follows: Comments: EKG demonstrates atrial fibrillation at a rate of 71 bpm. Discharge Plan Triage Chief Complaint: Weakness ED Provider: Jace Alvarado Dx/Rx/DC Orders Clinical Impression: Diarrhea, Vasovagal near syncope Instructions: ED Diarrhea, Unknown Cause, ED Near-Fainting- Vagal Reaction Prescriptions: No Action pravastatin 80 mg tablet 80 mg PO QHS RF: 0 amitriptyline 25 mg tablet 25 mg PO QHS RF: 0 Emgality Syringe 120 mg/mL syringe 120 mg SC QMONTH RF: 0 cholecalciferol (vitamin D3) 400 unit capsule 400 unit PO DAILY RF: 0 multivitamin Tablet 1 tab PO DAILY RF: 0 potassium chloride 20 MEQ tablet 20 meq PO BID RF: 0 omeprazole 20 MG capsule 20 mg PO DAILY RF: 0 montelukast 10 MG tablet 10 mg PO DAILY RF: 0 verapamil 240 MG capsule,ext rel. pellets 24 hr 240 mg PO DAILY RF: 0 levocetirizine 5 MG tablet 5 mg PO DAILY RF: 0 zolpidem 10 mg tablet 10 mg PO QHS PRN PRN (Reason: Sleep) RF: 0 divalproex [Depakote ER] 500 mg Tablet Extended Release 24 Hr 500 mg PO QHS RF: 0 apixaban 5 mg tablet 5 mg PO BID RF: 0 citalopram 40 mg Tablet 40 mg PO DAILY Qty: 0 RF: 0 acetaminophen 500 mg Tablet 1,000 mg PO Q6H PRN PRN (Reason: Pain Score 1-5) Qty: 0 RF: 0 Mustapha (with collagen) 7-7-1.5 gram Powder In Packet 1 packet PO BIDCM 30 Days RF: 0 Mustapha 7-7-1.5 gram powder in packet 1 ea PO BID 30 Days Qty: 60 RF: 0 Primary Care Provider: Desmond Riojas Chi Referrals: Desmond Riojas Chi, MD [Primary Care Provider] - As Needed Disposition Disposition: Home, Self Care
[2021-04-23] MEDS: 0.9% Normal Saline 1,000 ML 1000 ML IV (22:53)
[2021-04-23 22:56] LABS: Absolute Lymphocyte Count 2.03 X10^3/uL (0.83-4.51); Absolute Neutrophil Count 2.6 X10^3/uL (2.0-7.7); Basophil# 0.03 X10^3/uL; Basophil% 0.6 % (0-1); Eosinophil# 0.13 X10^3/uL; Eosinophils% 2.5 % (0-5); Hematocrit 34.8 % (37-47); Hemoglobin 10.7 g/dL (12.0-15.0); Lymphocyte # 2.03 X10^3/ul (0.83-4.51); Lymphocyte % 38.4 % (19-41); Mean Corp Hgb Conc 30.7 g/dL (32-36); Mean Corpuscular Hgb 28.3 pg (27.0-32.0); Mean Corpuscular Volume 92.1 fL (81-99); Mean Platelet Vol. 11.2 fl (6.2-12.0); Monocyte% 9.5 % (0-10); NRBC Flagged by Analyzer 0 % (0-5); Neutrophil # 2.57 X10^3/uL (2.7-7.7); Neutrophil % 48.4 % (47-70); Platelet Count 213 K/mm3 (150-450); RBC Distribution Width CV 13.2 % (11.6-14.6); RBC Distribution Width SD 44.5 fl (35.1-43.9); Red Blood Count 3.78 M/mm3 (4.2-5.4); White Blood Count 5.3 K/mm3 (4.4-11.0)
[2021-04-23 23:10] LABS: ALB/GLOB Ratio 0.8 RATIO (0.9-2.4); AST(SGOT) 18 U/L (15-37); Alanine Aminotransfer ALT/SGPT 15 U/L (13-56); Alkaline Phosphatase 63 U/L (45-117); Anion Gap 13 (5-15); BUN 32 mg/dL (7-18); BUN/Creat Ratio 26.9 RATIO (10-20); Calcium,Total 8.7 mg/dL (8.5-10.1); Chloride 106 mmol/L (98-107); Creatinine, Serum 1.19 mg/dL (0.55-1.02); EST Glomerular Filtration Rate 47 mL/min (>60); Est Glom Filt Rate - Afr Amer 57 mL/min (>60); Globulin 3.7 g/dL (2.2-4.2); Glucose 137 mg/dL (74-106); Potassium 3.6 mmol/L (3.5-5.1); Protein, Total 6.7 g/dL (6.4-8.2); Sodium Level 141 mmol/L (136-145); Troponin-I HS 9.7 pg/mL (3.0-53.7)
[2021-04-23 23:56] VITALS: BP 110/64; PULSE 77
[2021-04-24] MEDS: Loperamide 2 MG Capsule 4 MG PO (00:05)
[2021-04-24 00:08] LABS: Color, Urine Yellow (Yellow); Glucose, Dipstick Normal (Normal); Ketone-Dipstick 5 mg/dl (Negative); Leukocyte Esterase-Dipstick 100 /ul (Negative); Mucous, Urine 0 SEEN /hpf (<or=2+); Nitrite-Dipstick Negative (Negative); Occult Blood-Urine Negative /ul (Negative); Protein-Dipstick 30 mg/dl (Negative); Red Blood Cells-Urine 0 SEEN /hpf (0-5); Urine Bilirubin Dipstick Negative (Negative); Urine Clarity Clear (Clear); Urine Urobilinogen 1 mg/dl (Normal)
[2021-04-24 00:15] LABS: Bacteria RARE /hpf (None Seen); Squamous Epithelial Cells - UA 0-5 SEEN /hpf (5-10); White Blood Cells 0-5 SEEN /hpf (0-5)
[2021-04-24 00:26] VITALS: BP 110/55; BP 115/60; BP 98/54
[2021-04-24 00:27] VITALS: BP 110/55
[2021-04-24 01:04] VITALS: BP 110/60; PULSE 69; RESP 15; O2SAT 96
== END 2021-04-24 01:04 | disposition home or self-care (01) ==
PROVIDERS: Emergency Provider Emergency Medicine; PCP Family Medicine Geriatric Medicine
DX: R55 Syncope and collapse (principal); R19.7 Diarrhea, unspecified; I48.0 Paroxysmal atrial fibrillation; I12.9 Hypertensive chronic kidney disease with stage 1 through stage 4 chronic kidney disease, or unspecified chronic kidney disease; N18.9 Chronic kidney disease, unspecified; F41.9 Anxiety disorder, unspecified; F32.9 Major depressive disorder, single episode, unspecified; D68.2 Hereditary deficiency of other clotting factors; K21.9 Gastro-esophageal reflux disease without esophagitis; E78.00 Pure hypercholesterolemia, unspecified; E78.5 Hyperlipidemia, unspecified; E66.01 Morbid (severe) obesity due to excess calories; Z68.41 Body mass index [BMI] 40.0-44.9, adult; G47.33 Obstructive sleep apnea (adult) (pediatric); Z87.2 Personal history of diseases of the skin and subcutaneous tissue; Z86.718 Personal history of other venous thrombosis and embolism; Z79.01 Long term (current) use of anticoagulants; Z79.899 Other long term (current) drug therapy
CPT/HCPCS: 71045; 80053; 81001; 84484; 85025; 93005; 96360; 99285; J7030; A4216

== ENCOUNTER → 2021-04-29 12:04 | Outpatient (CLI) | payer MEDICARE, OTHER, SELFPAY ==
[2021-04-28 16:02] VITALS: BMI 40.3
--- NOTE | 2021-04-29 12:10 | RAD_ITS ---
STUDY: X-RAY - SACRUM/COCCYX REASON FOR EXAM: Female, 71 years old.PATIENT FELL. PAIN IN TAILBONE. LOW BACK PAIN TECHNIQUE: 4 view(s) of the sacrum and coccyx were obtained. COMPARISON: None. FINDINGS: A nondisplaced hairline fracture is present in the third coccygeal vertebra. Mild sclerosis and subchondral cystic changes of the bilateral SI joints without narrowing or ankylosis or erosions. Normal visualized sacral ala and fused sacral bodies. Normal sacrococcygeal junction with a normal angulation. Normal remaining coccygeal segments. The presacral soft tissue structures are unremarkable. There is no demonstrated destructive osseous process. At sclerotic calcifications are present. Mild to moderate degenerative changes are seen in the lumbar spine. RAD/Sacrum-Coccyx min 2 Views IMPRESSION: 1. Hairline fracture and third coccygeal vertebra. Electronically Signed: Malcom Aranda MD at 17:20 EDT , Service support ,
== END ==
PROVIDERS: PCP Family Medicine Geriatric Medicine; Referring Provider Family Medicine Geriatric Medicine; Visit Provider Family Medicine Geriatric Medicine
DX: M54.5 Low back pain (principal)
CPT/HCPCS: 72220

== ENCOUNTER 2021-05-19 14:15 | Outpatient (RCR) | payer MEDICARE, OTHER, SELFPAY ==
[2021-04-20 00:12] VITALS: BP 118/69; PULSE 83; RESP 18; TEMP 36.8
[2021-04-21 10:50] VITALS: BP 136/64; PULSE 76; RESP 20; TEMP 37.1; BMI 40.8
--- NOTE | 2021-04-21 13:19 | PCM.WC.PN ---
History of Present Illness Date of Service: 04/21/21 Chief Complaint: Traumatic ulcer to the left anterolateral leg History of Wound: 70 YEAR OLD WOMAN PRESENTS WITH A TRAUMATIC INFECTED HEMATOMA LEFT ANTEROLATERAL LEG WITH ASSOCIATED SKIN NECROSIS THAT SHE SUSTAINED ON JANUARY 31, 2021 WHEN SHE FELL AT HOME. SHE IS ON ELIQUIS FOR FACTOR V DEFICIENCY. SHE WENT TO THE ED WHERE THE LACERATION WAS CLEANSED AND SUTURED CLOSED. X-RAY IN THE ED WAS NEGATIVE FOR FRACTURE OR DISLOCATION. SHE FOLLOWED UP WITH HER PCP WHO NOTED SOME SLIGHT WOUND SEPARATION AFTER REMOVING SOME SUTURES. THE LEG WAS WRAPPED WITH GAUZE AND A COMPRESSION NIA WRAP. SOME REDNESS WAS NOTED SUPERIORLY AND SHE WAS STARTED ON DOXYCYCLINE AND CLINDAMYCIN. ALSO SOME SKIN NECROSIS WAS SEEN MEDIALLY. Surgery on 02/18/21 for Surgical preparation left anterolateral leg with incision and drainage and evacuation traumatic infected hematoma and excisional debridement skin necrosis (156 cm2). Operative cultures were positive for Pseudomonas aeroginosa and Anaerobic cocci. She was treated with Levaquin. Wound care - Daily Silver alginate dressing changes, covered with gauze. Tubigrip for compression. She has been approved for Epifix. She was transferred to TCU on 02/21/21. She was discharged from TCU on 03/14/21 with home health. Today she denies fevers and states her appetite is good. Progress of Wound: Improved. Objective Data Objective Data Vital Signs: Vital Signs Temp Pulse Resp BP 98.7 F 76 20 H 136/64 H 04/21/21 10:50 04/21/21 10:50 04/21/21 10:50 04/21/21 10:50 Weight: 223 lb Body Mass Index (BMI) 40.8 Charges/Coding Procedures Integumentary 111xxx-113xx: [id number] Global Visit Physical Exam Const alert and oriented x3 HEENT normocephalic Eyes PERRL Lymph Lymphatic: no lymphedema noted Resp normal respiratory effort Cardio regular rate GI Palpation: soft Extremity normal capillary refill Skin Wound Narrative: Left lateral leg ulcer is beefy pink, decreasing in size. 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 ) Arrival Mode Ambulatory, Walker Transfer Assistance None Patient Identification Verified (Name & Yes ) Patient Requires Transmission-Based No Precautions Height and Weight Body Mass Index (BMI) 40.8 BMI Classification Obese Vital Signs Temperature (97.8 F-99.1 F) 98.7 F Temperature Source Temporal Pulse Rate (60-100) 76 Pulse Location Monitor Respiratory Rate (12-18) 20 H Respiratory rate source Observation Blood Pressure (90/60-120/80) 136/64 H Blood Pressure Mean (mm Hg) 88 Source Monitor History Since Last Visit- (Skip if this is Patient's initial visit) Have you changed medications since your No last visit? Any new allergies or adverse reactions No Had a fall/change in ADL's that may No increase risk of falls Signs or symptoms of abuse and/or No neglect since last visit Have you been in the hospital since your No last visit? Has dressing in place as prescribed Yes Has compression in place as prescribed Yes Has offloadiing in place as prescribed N/A Experienced any changes in pain level or No management Pain Scale: 0-10 Numeric Is Patient Pain Free? Yes - Nurse 1 - General Ulcer Measurement Start: 04/21/21 10:47 Freq: Status: Active Protocol: Activity Type Activity Date Activity User E-Sign Co-Sign Detail Recorded Client Recorded Date Recorded By Document 04/21/21 10:50 [id number] 04/21/21 10:57 DL 04/21/21 10:50 Wound Center Nurse 1 #3- LLE LAT POST OP -Current Size (cm) - Length 7.1 -Current Size (cm) - Width 6 -Current Size (cm) - Depth 0.1 -Total Square Cm 42.6 -Photo Taken No -Exudate Amt Medium -Exudate Type Serosanguineous -Wound Margin Distinct, Outline Attached -Granulation Amt Large (67-100%) -Granulation Quality Red -Necrosis Amt None Present (0 %) -Structure Exposed N/A -Texture (Rubia-wound Skin Appearance) Scarring -Moisture (Rubia-wound Skin Appearance) No Abnormality -Color (Rubia-wound Skin Appearance) Assessed -Temperature (Rubia-wound Skin No Abnormality Appearance) (Pt Warm) -Ulcer Cleansing Wound Cleanser -Foul Odor after Cleansing Yes, Due to Product Use -Anesthetic Used 4% Lidocaine Solution Left Calf (cm) 38.5 Left Ankle (cm) 28 WC - Nurse 2 - General Ulcer CM Notes Start: 04/21/21 10:47 Freq: Status: Active Protocol: Activity Type Activity Date Activity User E-Sign Co-Sign Detail Recorded Client Recorded Date Recorded By Document 04/21/21 11:19 JF [id number] 04/21/21 11:25 JF 04/21/21 11:19 Wound Center Nurse 2 #3- LLE LAT POST OP -Time 11:19 -Correct Patient Yes -Correct Side, Site, Position Yes -Correct Procedure Yes -Procedure Performed Yes -Type of Procedure Debridement -Clinical Debridement Subcutaneous -Tissue Removed Subcutaneous -Post Debridement (cm) - Length 7 -Post Debridement (cm) - Width 6.5 -Post Debridement (cm) - Depth 0.1 -Total Square (Post) (cm) 45.5 -Area of Debridement (cm) - Length 7 -Area of Debridement (cm) - Width 6.5 -Total Square (Area) (cm) 45.5 -Tunneling No -Undermining/Tunneling No -Circular Undermining No -Wound/Ulcer Outcome Not Healed -Ulcer Cleansing Rinsed/ Irrigated with Saline -Foul Odor after Cleansing No -Bioengineered Tissue No -Bleeding Controlled with Pressure -Offloading No -Treatment Response Procedure Tolerated Well -Debridement - Subq, 1st 20sq cm Yes -Debridement, SubQ, ea addt'l 20sq cm 2 or part thereof WC - Nurse 3 - General Ulcer D/C NN Start: 04/21/21 10:47 Freq: Status: Active Protocol: Activity Type Activity Date Activity User E-Sign Co-Sign Detail Recorded Client Recorded Date Recorded By Document 04/21/21 11:39 DL [id number] 04/21/21 11:40 DL 04/21/21 11:39 Wound Care Nurse 3 -Ulcer Cleansing Rinsed/ Irrigated with Saline -Foul Odor after Cleansing No -Primary Dressing Applied Aquacel AG 4x4 -Primary Dressing Covered/Secured with Dry Gauze & Roll Gauze, Secured with Tape -[employer] AG 4x4 2 Treatment Response Procedure Tolerated Well Pain Scale: 0-10 Numeric Is Patient Pain Free? Yes WC - Visit Discharge Discharge Condition Stable Ambulatory Status Ambulatory, Walker Transportation Private Auto Facility Type Home Health Orders Sent Yes Wound debrided: Lateral leg ulcer Laterality: Left Type of Debridement: Excisional debridement Anesthesia Used: 5% Lidocaine Gel Depth: Down to and including healthy tissue and in the subcutaneous layer Percentage of wound debrided: 100 Instrument Used: 5mm curette Tissue Removed: Subcutaneous tissue and slough Severity: Fat Layer Exposed Bleeding Controlled with: Pressure Patient tolerated procedure: Patient tolerated procedure well Assessment/Plan Assessment/Plan (1) Ulcer of left lower extremity with fat layer exposed: CODE(S): L97.922 - Non-pressure 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 (2) Factor 5 Leiden mutation, heterozygous: CODE(S): D68.51 - Activated protein C resistance (3) Traumatic hematoma of left lower leg with infection: CODE(S): S80.12XA - Contusion of left lower leg, initial encounter; L08.9 - Local infection of the skin and subcutaneous tissue, unspecified QUALIFIERS: Encounter type: initial encounter Qualified Code(s): S80.12XA - Contusion of left lower leg, initial encounter; L08.9 - Local infection of the skin and subcutaneous tissue, unspecified (4) Debility: CODE(S): R53.81 - Other malaise PLAN: Wound care - Daily Silver Alginate dressings covered with gauze daily. May wash ulcer with soap and water daily before dressing changes. Patient would benefit from an advanced wound product, such as Epifix, to help expedite the healing process. She has been approved for the epi fix, will start this next week. Encouraged increase protein intake to help with wound healing. 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 We will watch for increased bleeding with debridement. Follow up one week.
[2021-04-28 11:18] VITALS: BP 122/74; PULSE 76; RESP 18; TEMP 36.6; BMI 40.8
--- NOTE | 2021-04-28 12:31 | PN.PCM_ITS ---
History of Present Illness Date of Service: 04/28/21 Chief Complaint: Traumatic ulcer to the left anterolateral leg History of Wound: 71 YEAR OLD WOMAN PRESENTS WITH A TRAUMATIC INFECTED HEMATOMA LEFT ANTEROLATERAL LEG WITH ASSOCIATED SKIN NECROSIS THAT SHE SUSTAINED ON JANUARY 31, 2021 WHEN SHE FELL AT HOME. SHE IS ON ELIQUIS FOR FACTOR V DEFICIENCY. SHE WENT TO THE ED WHERE THE LACERATION WAS CLEANSED AND SUTURED CLOSED. X-RAY IN THE ED WAS NEGATIVE FOR FRACTURE OR DISLOCATION. SHE FOLLOWED UP WITH HER PCP WHO NOTED SOME SLIGHT WOUND SEPARATION AFTER REMOVING SOME SUTURES. THE LEG WAS WRAPPED WITH GAUZE AND A COMPRESSION DANE WRAP. SOME REDNESS WAS NOTED SUPERIORLY AND SHE WAS STARTED ON DOXYCYCLINE AND CLINDAMYCIN. ALSO SOME SKIN NECROSIS WAS SEEN MEDIALLY. Surgery on 02/18/21 for Surgical preparation left anterolateral leg with incision and drainage and evacuation traumatic infected hematoma and excisional debridement skin necrosis (156 cm2). Operative cultures were positive for Pseudomonas aeroginosa and Anaerobic cocci. She was treated with Levaquin. She wound benefit from a skin graft or an advanced wound care product to assist with wound closure. The patient is not interested in having any further surgery at this time. She has been approved for Epifix placental tissue to help with wound healing. Wound care - Epifix #1 applied today. Tubigrip for compression. She was transferred to TCU on 02/21/21. She was discharged from TCU on 03/14/21 with home health. Today she denies fevers and states her appetite is good. Progress of Wound: Improved. Objective Data Objective Data Vital Signs: Vital Signs Temp Pulse Resp BP 97.8 F 76 18 122/74 H 04/28/21 11:18 04/28/21 11:18 04/28/21 11:18 04/28/21 11:18 Weight: 223 lb Body Mass Index (BMI) 40.8 Charges/Coding Procedures Integumentary 150xxx-152xx: 22213 Skin sub graft trnk/arm/leg (58 modifier) Physical Exam Const alert General Appearance: cooperative HEENT normocephalic Head and Scalp: atraumatic Eyes PERRL Lymph Lymphatic: no lymphedema noted Resp normal respiratory effort Cardio regular rate GI non-tender Palpation: soft Extremity normal capillary refill Skin Wound Narrative: Left anteriolateral leg ulcer is pink. Increased granulation tissue. Neuro CN's II-XII intact bilaterally Psych Appearance: grossly normal Debridement Note Debridement Note Post-Debridement Measurements and Additional Note: Post-Debridement Measurements/Treatment WC - Nurse 1 - General Ulcer Assessment Start: 04/21/21 10:47 Freq: Status: Active Protocol: MELIA Activity Type Activity Date Activity User E-Sign Co-Sign Detail Recorded Client Recorded Date Recorded By Document 04/21/21 10:50 DL [id number] 04/21/21 10:57 DL Document 04/28/21 11:18 PL [id number] 04/28/21 11:29 PL 04/21/21 04/28/21 10:50 11:18 WC - Today's Visit Information Type of service Follow-up Visit Follow-up Visit (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/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 (Physician/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 ) ) Arrival Mode Ambulatory, Walker Walker Transfer Assistance None None Patient Identification Verified (Name & Yes Yes ) Patient Requires Transmission-Based No No Precautions Safety Precautions NA Height and Weight Body Mass Index (BMI) 40.8 40.8 BMI Classification Obese Obese Vital Signs Temperature (97.8 F-99.1 F) 98.7 F 97.8 F Temperature Source Temporal Temporal Pulse Rate (60-100) 76 76 Pulse Location Monitor Respiratory Rate (12-18) 20 H 18 Respiratory rate source Observation Blood Pressure (90/60-120/80) 136/64 H 122/74 H Blood Pressure Mean (mm Hg) 88 90 Source Monitor History Since Last Visit- (Skip if this is Patient's initial visit) Have you changed medications since your No No last visit? Any new allergies or adverse reactions No No Had a fall/change in ADL's that may No No increase risk of falls Signs or symptoms of abuse and/or No No neglect since last visit Have you been in the hospital since your No No last visit? Has dressing in place as prescribed Yes Yes Has compression in place as prescribed Yes Yes Has offloadiing in place as prescribed N/A N/A Experienced any changes in pain level or No No management Pain Scale: 0-10 Numeric Is Patient Pain Free? Yes Yes - Nurse 1 - General Ulcer Measurement Start: 04/21/21 10:47 Freq: Status: Active Protocol: Activity Type Activity Date Activity User E-Sign Co-Sign Detail Recorded Client Recorded Date Recorded By Document 04/21/21 10:50 DL [id number] 04/21/21 10:57 DL Document 04/28/21 11:18 PL [id number] 04/28/21 11:29 PL 04/21/21 04/28/21 10:50 11:18 Wound Center Nurse 1 #3- LLE LAT POST OP -Combined with other wound No -Current Size (cm) - Length 7.1 6.5 -Current Size (cm) - Width 6 5.0 -Current Size (cm) - Depth 0.1 0.1 -Total Square Cm 42.6 32.50 -Photo Taken No No -Epithelialization None Present -Tunneling No -Undermining/Tunneling No -Circular Undermining No -Exudate Amt Medium Medium -Exudate Type Serosanguineous Serosanguineous -Wound Margin Distinct, Outline Attached -Granulation Amt Large (67-100%) Large (67-100%) -Granulation Quality [place] -Slough/Fibrin Yes -Necrosis Amt None Present (0 Small (1-33%) %) -Necrotic Tissue Type Adherent Slough -Structure Exposed N/A -Texture (Rubia-wound Skin Appearance) Scarring No Abnormality -Moisture (Rubia-wound Skin Appearance) No Abnormality Dry/Scaly -Color (Rubia-wound Skin Appearance) Assessed No Abnormality -Temperature (Rubia-wound Skin No Abnormality No Abnormality Appearance) (Pt Warm) (Pt Warm) -Tenderness on Palpation (Rubia-wound No Skin Appearance) -Ulcer Cleansing Wound Cleanser Rinsed/ Irrigated with Saline -Foul Odor after Cleansing Yes, Due to No Product Use -Anesthetic Used 4% Lidocaine 4% Lidocaine Solution Solution Left Calf (cm) 38.5 Left Ankle (cm) 28 WC - Nurse 2 - General Ulcer CM Notes Start: 04/21/21 10:47 Freq: Status: Active Protocol: Activity Type Activity Date Activity User E-Sign Co-Sign Detail Recorded Client Recorded Date Recorded By Document 04/21/21 11:19 [id number] [id number] 04/21/21 11:25 Document 04/28/21 12:03 [id number] 04/28/21 12:09 04/21/21 04/28/21 11:19 12:03 Wound Center Nurse 2 -Time 11:19 12:06 -Correct Patient Yes Yes -Correct Side, Site, Position Yes Yes -Correct Procedure Yes Yes -Procedure Performed Yes Yes -Type of Procedure Debridement Debridement -Clinical Debridement Subcutaneous Subcutaneous -Tissue Removed Subcutaneous Subcutaneous -Post Debridement (cm) - Length 7 6.8 -Post Debridement (cm) - Width 6.5 6 -Post Debridement (cm) - Depth 0.1 0.1 -Total Square (Post) (cm) 45.5 40.8 -Area of Debridement (cm) - Length 7 6.8 -Area of Debridement (cm) - Width 6.5 6 -Total Square (Area) (cm) 45.5 40.8 -Tunneling No No -Undermining/Tunneling No No -Circular Undermining No No -Wound/Ulcer Outcome Not Healed Not Healed -Ulcer Cleansing Rinsed/ Rinsed/ Irrigated with Irrigated with Saline Saline -Foul Odor after Cleansing No No -Bioengineered Tissue No Yes -Type of Bioengineered Tissue Epifix Mesh -Expiration Date 01/18/26 -Product Lot Number [id number] -Percent Used 100 -Lot number of Saline Used [id number] -Bleeding Controlled with Pressure Pressure -Offloading No No -Treatment Response Procedure Procedure Tolerated Well Tolerated Well -Debridement - Subq, 1st 20sq cm Yes No -Debridement, SubQ, ea addt'l 20sq cm 2 or part thereof -Apply Skin Sub - 1st 25 sq cm - Legs 1 -Apply Skin Sub - each addt'l 25 sq cm 1 - Legs -Epifix Mesh (per sq cm) 16 Pain Scale: 0-10 Numeric Is Patient Pain Free? Yes WC - Nurse 3 - General Ulcer D/C NN Start: 04/21/21 10:47 Freq: Status: Active Protocol: Activity Type Activity Date Activity User E-Sign Co-Sign Detail Recorded Client Recorded Date Recorded By Document 04/21/21 11:39 DL [id number] 04/21/21 11:40 DL Document 04/28/21 12:17 MANDEEP [id number] 04/28/21 12:17 MANDEEP 04/21/21 04/28/21 11:39 12:17 Wound Care Nurse 3 #3- LLE LAT POST OP -Ulcer Cleansing Rinsed/ Rinsed/ Irrigated with Irrigated with Saline Saline -Foul Odor after Cleansing No No -Primary Dressing Applied Aquacel AG 4x4 -Primary Dressing Covered/Secured with Dry Gauze & Dry Gauze & Roll Gauze, Roll Gauze, Secured with Secured with Tape Tape -Aquacel AG 4x4 2 Left -Compression Wrap Dane Wrap Treatment Response Procedure Tolerated Well Pain Scale: 0-10 Numeric Is Patient Pain Free? Yes Yes WC - Visit Discharge Discharge Condition Stable Ambulatory Status Ambulatory, Ambulatory, Walker Walker Transportation Private Auto Private Auto Medication Reconcilliation completed & Yes provided to patient/care provider Clinical Summary of Care Provided Yes Facility Type Home Health Orders Sent Yes Wound debrided: Left anteriolateral leg ulcer Laterality: Left Type of Debridement: Excisional debridement Anesthesia Used: 5% Lidocaine Gel Depth: Down to and including healthy tissue and in the subcutaneous layer Percentage of wound debrided: 100 Instrument Used: 5mm curette Tissue Removed: Subcutaneous tissue and slough Severity: Fat Layer Exposed Bleeding Controlled with: Pressure Patient tolerated procedure: Patient tolerated procedure well Assessment/Plan Assessment/Plan (1) Ulcer of left lower extremity with fat layer exposed: CODE(S): L97.922 - Non-pressure 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 (2) Factor 5 Leiden mutation, heterozygous: CODE(S): D68.51 - Activated protein C resistance (3) Traumatic hematoma of left lower leg with infection: CODE(S): S80.12XA - Contusion of left lower leg, initial encounter; L08.9 - Local infection of the skin and subcutaneous tissue, unspecified QUALIFIERS: Encounter type: initial encounter Qualified Code(s): S80.12XA - Contusion of left lower leg, initial encounter; L08.9 - Local infection of the skin and subcutaneous tissue, unspecified PLAN: Wound care - Epifix #1 applied today. A 4 x 4.5 cm mesh Epifix was used, moistened with saline, covered with adaptic touch wound veil which was secured with steri strips. Dry gauze placed over wound veil. She may change the outer dry gauze dressing as needed. 100% of the product was used. Product Lot Number [id number]. Expiration Date 01/18/26. Do not get the dressing wet, may shower using a shower boot. Encouraged increase protein intake to help with wound healing. 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 We will watch for increased bleeding with debridement. Follow up one week.
[2021-05-05 10:45] VITALS: BP 128/45; PULSE 72; RESP 16; TEMP 36; BMI 40.8
--- NOTE | 2021-05-05 12:25 | PN.PCM_ITS ---
History of Present Illness Date of Service: 05/05/21 Chief Complaint: Traumatic ulcer to the left anterolateral leg History of Wound: 71 YEAR OLD WOMAN PRESENTS WITH A TRAUMATIC INFECTED HEMATOMA LEFT ANTEROLATERAL LEG WITH ASSOCIATED SKIN NECROSIS THAT SHE SUSTAINED ON JANUARY 31, 2021 WHEN SHE FELL AT HOME. SHE IS ON ELIQUIS FOR FACTOR V DEFICIENCY. SHE WENT TO THE ED WHERE THE LACERATION WAS CLEANSED AND SUTURED CLOSED. X-RAY IN THE ED WAS NEGATIVE FOR FRACTURE OR DISLOCATION. SHE FOLLOWED UP WITH HER PCP WHO NOTED SOME SLIGHT WOUND SEPARATION AFTER REMOVING SOME SUTURES. THE LEG WAS WRAPPED WITH GAUZE AND A COMPRESSION DANE WRAP. SOME REDNESS WAS NOTED SUPERIORLY AND SHE WAS STARTED ON DOXYCYCLINE AND CLINDAMYCIN. ALSO SOME SKIN NECROSIS WAS SEEN MEDIALLY. Surgery on 02/18/21 for Surgical preparation left anterolateral leg with incision and drainage and evacuation traumatic infected hematoma and excisional debridement skin necrosis (156 cm2). Operative cultures were positive for Pseudomonas aeroginosa and Anaerobic cocci. She was treated with Levaquin. She wound benefit from a skin graft or an advanced wound care product to assist with wound closure. The patient is not interested in having any further surgery at this time. She has been approved for Epifix placental tissue to help with wound healing. Wound care - Epifix #2 applied today. Tubigrip for compression. She was transferred to TCU on 02/21/21. She was discharged from TCU on 03/14/21 with home health. Today she denies fevers and states her appetite is good. Progress of Wound: Improved. Objective Data Objective Data Vital Signs: Vital Signs Temp Pulse Resp BP 96.8 F L 72 16 128/45 H 05/05/21 10:45 05/05/21 10:45 05/05/21 10:45 05/05/21 10:45 Oxygen Delivery Method Room Air Weight: 223 lb Body Mass Index (BMI) 40.8 Charges/Coding Procedures Integumentary 150xxx-152xx: 71635 Skin sub graft trnk/arm/leg (58 modifier) Add On Codes: 12526 Skin sub graft t/a/l add-on Physical Exam Const alert and oriented x3 General Appearance: cooperative HEENT normocephalic Eyes PERRL Lymph Lymphatic: no lymphedema noted Resp normal respiratory effort Cardio regular rate GI normal to inspection, nondistended, normoactive bowel sounds Extremity normal capillary refill Skin Wound Narrative: Left lateral leg ulcer is beefy pink, smaller in size. Periwound is stable. Neuro CN's II-XII intact bilaterally Psych Appearance: grossly normal Debridement Note Debridement Note Post-Debridement Measurements and Additional Note: Post-Debridement Measurements/Treatment WC - Nurse 1 - General Ulcer Assessment Start: 04/21/21 10:47 Freq: Status: Active Protocol: ANTHONY.LOWEXT Activity Type Activity Date Activity User E-Sign Co-Sign Detail Recorded Client Recorded Date Recorded By Document 04/21/21 10:50 DL [id number] 04/21/21 10:57 DL Document 04/28/21 11:18 PL [id number] 04/28/21 11:29 PL Document 05/05/21 10:45 KR [id number] 05/05/21 10:52 KR 04/21/21 04/28/21 05/05/21 10:50 11:18 10:45 - Today's Visit Information Type of service Follow-up Visit Follow-up Visit Follow-up Visit (Physician/RAILROAD CAR CHECKER (Physician/RAILROAD CAR CHECKER (Physician/RAILROAD CAR CHECKER ) ) ) Arrival Mode Ambulatory, Walker Ambulatory, Walker Walker Transfer Assistance None None Patient Identification Verified (Name & Yes Yes Yes ) Patient Requires Transmission-Based No No Precautions Safety Precautions NA Height and Weight Body Mass Index (BMI) 40.8 40.8 40.8 BMI Classification Obese Obese Obese Vital Signs Temperature (97.8 F-99.1 F) 98.7 F 97.8 F 96.8 F L Temperature Source Temporal Temporal Temporal Pulse Rate (60-100) 76 76 72 Pulse Location Monitor Monitor Respiratory Rate (12-18) 20 H 18 16 Respiratory rate source Observation Observation Oxygen Delivery Method Room Air Blood Pressure (90/60-120/80) 136/64 H 122/74 H 128/45 H Blood Pressure Mean (mm Hg) 88 90 72 Source Monitor Monitor Position Sitting Blood Pressure Location Left Arm History Since Last Visit- (Skip if this is Patient's initial visit) Have you changed medications since your No No No last visit? Any new allergies or adverse reactions No No No Had a fall/change in ADL's that may No No No increase risk of falls Signs or symptoms of abuse and/or No No No neglect since last visit Have you been in the hospital since your No No No last visit? Has dressing in place as prescribed Yes Yes Yes Has compression in place as prescribed Yes Yes N/A Has offloadiing in place as prescribed N/A N/A N/A Experienced any changes in pain level or No No No management Left Footwear Regular Shoe Right Footwear Regular Shoe Pain Scale: 0-10 Numeric Is Patient Pain Free? Yes Yes Yes WC - Nurse 1 - General Ulcer Measurement Start: 04/21/21 10:47 Freq: Status: Active Protocol: Activity Type Activity Date Activity User E-Sign Co-Sign Detail Recorded Client Recorded Date Recorded By Document 04/21/21 10:50 DL [id number] 04/21/21 10:57 DL Document 04/28/21 11:18 PL [id number] 04/28/21 11:29 PL Document 05/05/21 10:45 KR [id number] 05/05/21 10:52 KR 04/21/21 04/28/21 05/05/21 10:50 11:18 10:45 Wound Center Nurse 1 #3- LLE LAT POST OP -Combined with other wound No No -Current Size (cm) - Length 7.1 6.5 6.5 -Current Size (cm) - Width 6 5.0 5.5 -Current Size (cm) - Depth 0.1 0.1 0.1 -Total Square Cm 42.6 32.50 35.75 -Photo Taken No No No -Epithelialization None Present Small 1-33% -Tunneling No No -Undermining/Tunneling No No -Circular Undermining No No -Exudate Amt Medium Medium Medium -Exudate Type Serosanguineous Serosanguineous Serosanguineous -Wound Margin Distinct, Distinct, Outline Outline Attached Attached -Granulation Amt Large (67-100%) Large (67-100%) Large (67-100%) -Granulation Quality [place] -Slough/Fibrin Yes Yes -Necrosis Amt None Present (0 Small (1-33%) Small (1-33%) %) -Necrotic Tissue Type Adherent Slough Adherent Slough -Structure Exposed N/A -Texture (Rubia-wound Skin Appearance) Scarring No Abnormality Assessed, Scarring -Moisture (Rubia-wound Skin Appearance) No Abnormality Dry/Scaly Assessed -Color (Rubia-wound Skin Appearance) Assessed No Abnormality Assessed -Temperature ([place]ia-wound Skin No Abnormality No Abnormality No Abnormality Appearance) (Pt Warm) (Pt Warm) (Pt Warm) -Tenderness on Palpation (Rubia-wound No No Skin Appearance) -Ulcer Cleansing Wound Cleanser Rinsed/ soapy water Irrigated with Saline -Foul Odor after Cleansing Yes, Due to No No Product Use -Anesthetic Used 4% Lidocaine 4% Lidocaine 4% Lidocaine Solution Solution Solution Lower Limb Edema Present Yes Left Calf (cm) 38.5 41.2 Left Ankle (cm) 28 31.4 WC - Nurse 2 - General Ulcer CM Notes Start: 04/21/21 10:47 Freq: Status: Active Protocol: Activity Type Activity Date Activity User E-Sign Co-Sign Detail Recorded Client Recorded Date Recorded By Document 04/21/21 11:19 JF [id number] 04/21/21 11:25 JF Document 04/28/21 12:03 JF [id number] 04/28/21 12:09 JF Edit Result 04/28/21 12:03 JF (1) [id number] 05/01/21 11:38 PL Document 05/05/21 10:58 JF [id number] 05/05/21 11:11 JF (1) #3- LLE LAT POST OP - Epifix Mesh (per sq cm) 16 => 11 04/21/21 04/28/21 05/05/21 11:19 12:03 10:58 Wound Center Nurse 2 #3- LLE LAT POST OP -Time 11:19 12:06 11:01 -Correct Patient Yes Yes Yes -Correct Side, Site, Position Yes Yes Yes -Correct Procedure Yes Yes Yes -Procedure Performed Yes Yes Yes -Type of Procedure Debridement Debridement Debridement -Clinical Debridement Subcutaneous Subcutaneous Subcutaneous -Tissue Removed Subcutaneous Subcutaneous Subcutaneous -Post Debridement (cm) - Length 7 6.8 6 -Post Debridement (cm) - Width 6.5 6 5.5 -Post Debridement (cm) - Depth 0.1 0.1 0.1 -Total Square (Post) (cm) 45.5 40.8 33.0 -Area of Debridement (cm) - Length 7 6.8 6 -Area of Debridement (cm) - Width 6.5 6 5.5 -Total Square (Area) (cm) 45.5 40.8 33.0 -Tunneling No No No -Undermining/Tunneling No No No -Circular Undermining No No No -Wound/Ulcer Outcome Not Healed Not Healed Not Healed -Ulcer Cleansing Rinsed/ Rinsed/ Irrigated with Irrigated with Saline Saline -Foul Odor after Cleansing No No -Bioengineered Tissue No Yes Yes -Type of Bioengineered Tissue Epifix Mesh Epifix Mesh -Expiration Date 01/18/26 01/18/26 -Product Lot Number [id number] -Percent Used 100 100 -Lot number of Saline Used [id number] -Bleeding Controlled with Pressure Pressure Pressure -Offloading No No No -Treatment Response Procedure Procedure Procedure Tolerated Well Tolerated Well Tolerated Well -Debridement - Subq, 1st 20sq cm Yes No No -Debridement, SubQ, ea addt'l 20sq cm 2 or part thereof -Apply Skin Sub - 1st 25 sq cm - Legs 1 1 -Apply Skin Sub - each addt'l 25 sq cm 1 1 - Legs -Epifix Mesh (per sq cm) 11 11 Pain Scale: 0-10 Numeric Is Patient Pain Free? Yes Yes - Nurse 3 - General Ulcer D/C NN Start: 04/21/21 10:47 Freq: Status: Active Protocol: Activity Type Activity Date Activity User E-Sign Co-Sign Detail Recorded Client Recorded Date Recorded By Document 04/21/21 11:39 DL [id number] 04/21/21 11:40 DL Document 04/28/21 12:17 JF [id number] 04/28/21 12:17 JF Document 05/05/21 11:16 KR [id number] 05/05/21 11:17 KR 04/21/21 04/28/21 05/05/21 11:39 12:17 11:16 Wound Care Nurse 3 #3- LLE LAT POST OP -Ulcer Cleansing Rinsed/ Rinsed/ Rinsed/ Irrigated with Irrigated with Irrigated with Saline Saline Saline -Foul Odor after Cleansing No No -Primary Dressing Applied Aquacel AG 4x4 -Primary Dressing Covered/Secured with Dry Gauze & Dry Gauze & Dry Gauze, Roll Gauze, Roll Gauze, Secured with Secured with Secured with Tape Tape Tape -Aquacel AG 4x4 2 Left -Compression Wrap Dane Wrap -Tubular Bandage Double Layer -Size of Tubigrip Used Size F -Size F ($) 2 Treatment Response Procedure Tolerated Well Pain Scale: 0-10 Numeric Is Patient Pain Free? Yes Yes Yes WC - Visit Discharge Discharge Condition Stable Stable Ambulatory Status Ambulatory, Ambulatory, Ambulatory, Walker Walker Walker Transportation Private Auto Private Auto Private Auto Medication Reconcilliation completed & Yes provided to patient/care provider Clinical Summary of Care Provided Yes Facility Type Home Health Orders Sent Yes Wound debrided: Lateral leg ulcer Laterality: Left Type of Debridement: Excisional debridement Anesthesia Used: 5% Lidocaine Gel Depth: Down to and including healthy tissue and in the subcutaneous layer Percentage of wound debrided: 100 Instrument Used: 7mm curette Tissue Removed: Subcutaneous tissue and slough Severity: Fat Layer Exposed Amount of bleeding with debridement: Moderate Bleeding Controlled with: Pressure and Compression and gauze Patient tolerated procedure: Patient tolerated procedure well Assessment/Plan Assessment/Plan (1) Ulcer of left lower extremity with fat layer exposed: CODE(S): L97.922 - Non-pressure 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 (2) Traumatic hematoma of left lower leg with infection: CODE(S): S80.12XA - Contusion of left lower leg, initial encounter; L08.9 - Local infection of the skin and subcutaneous tissue, unspecified QUALIFIERS: Encounter type: initial encounter Qualified Code(s): S80.12XA - Contusion of left lower leg, initial encounter; L08.9 - Local infection of the skin and subcutaneous tissue, unspecified (3) Factor 5 Leiden mutation, heterozygous: CODE(S): D68.51 - Activated protein C resistance (4) Debility: CODE(S): R53.81 - Other malaise PLAN: Wound care - Epifix #2 applied today. A 4 x 4.5 cm mesh Epifix was used, moistened with saline, covered with wound veil which was secured with steri strips. Dry gauze placed over wound veil. She may change the outer dry gauze dressing as needed. 100% of the product was used. Product code [id number]. Exp. 01/18/26. Do not get the dressing wet, may shower using a shower boot. Encouraged increase protein intake to help with wound healing. 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 We will watch for increased bleeding with debridement. She recently fell and broke her tail bone. Instructed her to try not to sit for long periods of time and to lay on her side with 1-2 pillows between her knees to help keep her spine aligned. Follow up one week.
[2021-05-12 09:00] VITALS: BP 129/72; PULSE 74; RESP 18; TEMP 36.6; BMI 40.8
--- NOTE | 2021-05-12 15:38 | PCM.WC.PN ---
History of Present Illness Date of Service: 05/12/21 Chief Complaint: Traumatic ulcer to the left anterolateral leg History of Wound: 71 YEAR OLD WOMAN PRESENTS WITH A TRAUMATIC INFECTED HEMATOMA LEFT ANTEROLATERAL LEG WITH ASSOCIATED SKIN NECROSIS THAT SHE SUSTAINED ON JANUARY 31, 2021 WHEN SHE FELL AT HOME. SHE IS ON ELIQUIS FOR FACTOR V DEFICIENCY. SHE WENT TO THE ED WHERE THE LACERATION WAS CLEANSED AND SUTURED CLOSED. X-RAY IN THE ED WAS NEGATIVE FOR FRACTURE OR DISLOCATION. SHE FOLLOWED UP WITH HER PCP WHO NOTED SOME SLIGHT WOUND SEPARATION AFTER REMOVING SOME SUTURES. THE LEG WAS WRAPPED WITH GAUZE AND A COMPRESSION DANE WRAP. SOME REDNESS WAS NOTED SUPERIORLY AND SHE WAS STARTED ON DOXYCYCLINE AND CLINDAMYCIN. ALSO SOME SKIN NECROSIS WAS SEEN MEDIALLY. Surgery on 02/18/21 for Surgical preparation left anterolateral leg with incision and drainage and evacuation traumatic infected hematoma and excisional debridement skin necrosis (156 cm2). Operative cultures were positive for Pseudomonas aeroginosa and Anaerobic cocci. She was treated with Levaquin. She wound benefit from a skin graft or an advanced wound care product to assist with wound closure. The patient is not interested in having any further surgery at this time. She has been approved for Epifix placental tissue to help with wound healing. Wound care - Epifix #3 applied today. Tubigrip for compression. She was transferred to TCU on 02/21/21. She was discharged from TCU on 03/14/21 with home health. Today she denies fevers and states her appetite is good. Progress of Wound: Improved. Objective Data Objective Data Vital Signs: Vital Signs Temp Pulse Resp BP 97.8 F 74 18 129/72 H 05/12/21 09:00 05/12/21 09:00 05/12/21 09:00 05/12/21 09:00 Oxygen Delivery Method Room Air Weight: 223 lb Body Mass Index (BMI) 40.8 Charges/Coding Procedures Integumentary 150xxx-152xx: 66725 Skin sub graft trnk/arm/leg (58 modifier) Add On Codes: 89743 Skin sub graft t/a/l add-on Physical Exam Const alert and oriented x3 General Appearance: cooperative HEENT normocephalic Eyes PERRL Lymph Lymphatic: no lymphedema noted Resp normal respiratory effort Cardio regular rate GI non-tender Palpation: soft Extremity normal capillary refill General Extremity: edema Skin Wound Narrative: Left lateral leg ulcer is beefy pink. It has decreased in size. Neuro CN's II-XII intact bilaterally Psych Appearance: grossly normal Debridement Note Debridement Note Post-Debridement Measurements and Additional Note: Post-Debridement Measurements/Treatment WC - Nurse 1 - General Ulcer Assessment Start: 04/21/21 10:47 Freq: Status: Active Protocol: WC.LOWEXT Activity Type Activity Date Activity User E-Sign Co-Sign Detail Recorded Client Recorded Date Recorded By Document 04/21/21 10:50 DL [id number] 04/21/21 10:57 DL Document 04/28/21 11:18 PL [id number] 04/28/21 11:29 PL Document 05/05/21 10:45 KR [id number] 05/05/21 10:52 KR Document 05/12/21 09:00 DL [id number] 05/12/21 09:06 DL 04/21/21 04/28/21 05/05/21 10:50 11:18 10:45 WC - Today's Visit Information Type of service Follow-up Visit Follow-up Visit Follow-up Visit (Physician/BOWLING BALL MOLDER (Physician/BOWLING BALL MOLDER (Physician/BOWLING BALL MOLDER ) ) ) Arrival Mode Ambulatory, Walker Ambulatory, Walker Walker Transfer Assistance None None Patient Identification Verified (Name & Yes Yes Yes ) Patient Requires Transmission-Based No No Precautions Safety Precautions NA Height and Weight Body Mass Index (BMI) 40.8 40.8 40.8 BMI Classification Obese Obese Obese Vital Signs Temperature (97.8 F-99.1 F) 98.7 F 97.8 F 96.8 F L Temperature Source Temporal Temporal Temporal Pulse Rate (60-100) 76 76 72 Pulse Location Monitor Monitor Respiratory Rate (12-18) 20 H 18 16 Respiratory rate source Observation Observation Oxygen Delivery Method Room Air Blood Pressure (90/60-120/80) 136/64 H 122/74 H 128/45 H Blood Pressure Mean (mm Hg) 88 90 72 Source Monitor Monitor Position Sitting Blood Pressure Location Left Arm History Since Last Visit- (Skip if this is Patient's initial visit) Have you changed medications since your No No No last visit? Any new allergies or adverse reactions No No No Had a fall/change in ADL's that may No No No increase risk of falls Signs or symptoms of abuse and/or No No No neglect since last visit Have you been in the hospital since your No No No last visit? Has dressing in place as prescribed Yes Yes Yes Has compression in place as prescribed Yes Yes N/A Has offloadiing in place as prescribed N/A N/A N/A Experienced any changes in pain level or No No No management Left Footwear Regular Shoe Right Footwear Regular Shoe Pain Scale: 0-10 Numeric Is Patient Pain Free? Yes Yes Yes 05/12/21 09:00 WC - Today's Visit Information Type of service Follow-up Visit (Physician/BOWLING BALL MOLDER ) Arrival Mode Ambulatory Transfer Assistance None Patient Identification Verified (Name & Yes ) Patient Requires Transmission-Based No Precautions Safety Precautions Height and Weight Body Mass Index (BMI) 40.8 BMI Classification Obese Vital Signs Temperature (97.8 F-99.1 F) 97.8 F Temperature Source Temporal Pulse Rate (60-100) 74 Pulse Location Monitor Respiratory Rate (12-18) 18 Respiratory rate source Observation Oxygen Delivery Method Blood Pressure (90/60-120/80) 129/72 H Blood Pressure Mean (mm Hg) 91 Source Monitor Position Blood Pressure Location History Since Last Visit- (Skip if this is Patient's initial visit) Have you changed medications since your No last visit? Any new allergies or adverse reactions No Had a fall/change in ADL's that may No increase risk of falls Signs or symptoms of abuse and/or No neglect since last visit Have you been in the hospital since your No last visit? Has dressing in place as prescribed Yes Has compression in place as prescribed Yes Has offloadiing in place as prescribed N/A Experienced any changes in pain level or No management Left Footwear Right Footwear Pain Scale: 0-10 Numeric Is Patient Pain Free? Yes - Nurse 1 - General Ulcer Measurement Start: 04/21/21 10:47 Freq: Status: Active Protocol: Activity Type Activity Date Activity User E-Sign Co-Sign Detail Recorded Client Recorded Date Recorded By Document 04/21/21 10:50 DL [id number] 04/21/21 10:57 DL Document 04/28/21 11:18 PL [id number] 04/28/21 11:29 PL Document 05/05/21 10:45 KR [id number] 05/05/21 10:52 KR Document 05/12/21 09:00 DL [id number] 05/12/21 09:06 DL 04/21/21 04/28/2105/05/21 10:50 11:18 10:45 Wound Center Nurse 1 #3- LLE LAT POST OP -Combined with other wound No No -Current Size (cm) - Length 7.1 6.5 6.5 -Current Size (cm) - Width 6 5.0 5.5 -Current Size (cm) - Depth 0.1 0.1 0.1 -Total Square Cm 42.6 32.50 35.75 -Photo Taken No No No -Epithelialization None Present Small 1-33% -Tunneling No No -Undermining/Tunneling No No -Circular Undermining No No -Exudate Amt Medium Medium Medium -Exudate Type Serosanguineous Serosanguineous Serosanguineous -Wound Margin Distinct, Distinct, Outline Outline Attached Attached -Granulation Amt Large (67-100%) Large (67-100%) Large (67-100%) -Granulation Quality Red [place] -Slough/Fibrin Yes Yes -Necrosis Amt None Present (0 Small (1-33%) Small (1-33%) %) -Necrotic Tissue Type Adherent Slough Adherent Slough -Structure Exposed N/A -Texture (Rubia-wound Skin Appearance) Scarring No Abnormality Assessed, Scarring -Moisture (Rubia-wound Skin Appearance) No Abnormality Dry/Scaly Assessed -Color (Rubia-wound Skin Appearance) Assessed No Abnormality Assessed -Temperature (Rubia-wound Skin No Abnormality No Abnormality No Abnormality Appearance) (Pt Warm) (Pt Warm) (Pt Warm) -Tenderness on Palpation (Rubia-wound No No Skin Appearance) -Ulcer Cleansing Wound Cleanser Rinsed/ soapy water Irrigated with Saline -Foul Odor after Cleansing Yes, Due to No No Product Use -Anesthetic Used 4% Lidocaine 4% Lidocaine 4% Lidocaine Solution Solution Solution Lower Limb Edema Present Yes Left Calf (cm) 38.5 41.2 Left Ankle (cm) 28 31.4 05/12/21 09:00 Wound Center Nurse 1 #3- LLE LAT POST OP -Combined with other wound -Current Size (cm) - Length 5.8 -Current Size (cm) - Width 4.8 -Current Size (cm) - Depth 0.1 -Total Square Cm 27.84 -Photo Taken No -Epithelialization -Tunneling -Undermining/Tunneling -Circular Undermining -Exudate Amt Medium -Exudate Type Serosanguineous -Wound Margin Distinct, Outline Attached -Granulation Amt Medium (34-66%) -Granulation Quality Hyper- granulation,Red -Slough/Fibrin -Necrosis Amt Medium (34-66%) -Necrotic Tissue Type Adherent Slough -Structure Exposed N/A -Texture (Rubia-wound Skin Appearance) Scarring -Moisture (Rubia-wound Skin Appearance) No Abnormality -Color (Rubia-wound Skin Appearance) No Abnormality -Temperature (Rubia-wound Skin No Abnormality Appearance) (Pt Warm) -Tenderness on Palpation (Rubia-wound No Skin Appearance) -Ulcer Cleansing Wound Cleanser -Foul Odor after Cleansing No -Anesthetic Used 4% Lidocaine Solution Lower Limb Edema Present Left Calf (cm) 378 Left Ankle (cm) 27.3 WC - Nurse 2 - General Ulcer CM Notes Start: 04/21/21 10:47 Freq: Status: Active Protocol: Activity Type Activity Date Activity User E-Sign Co-Sign Detail Recorded Client Recorded Date Recorded By Document 04/21/21 11:19 JF [id number] 04/21/21 11:25 JF Document 04/28/21 12:03 JF [id number] 04/28/21 12:09 Edit Result 04/28/21 12:03 JF (1) [id number] 05/01/21 11:38 PL Document 05/05/21 10:58 JF [id number] 05/05/21 11:11 JF Document 05/12/21 09:20 JF [id number] 05/12/21 09:29 JF (1) #3- LLE LAT POST OP - Epifix Mesh (per sq cm) 16 => 11 04/21/21 04/28/21 05/05/21 11:19 12:03 10:58 Wound Center Nurse 2 #3- LLE LAT POST OP -Time 11:19 12:06 11:01 -Correct Patient Yes Yes Yes -Correct Side, Site, Position Yes Yes Yes -Correct Procedure Yes Yes Yes -Procedure Performed Yes Yes Yes -Type of Procedure Debridement Debridement Debridement -Clinical Debridement Subcutaneous Subcutaneous Subcutaneous -Tissue Removed Subcutaneous Subcutaneous Subcutaneous -Post Debridement (cm) - Length 7 6.8 6 -Post Debridement (cm) - Width 6.5 6 5.5 -Post Debridement (cm) - Depth 0.1 0.1 0.1 -Total Square (Post) (cm) 45.5 40.8 33.0 -Area of Debridement (cm) - Length 7 6.8 6 -Area of Debridement (cm) - Width 6.5 6 5.5 -Total Square (Area) (cm) 45.5 40.8 33.0 -Tunneling No No No -Undermining/Tunneling No No No -Circular Undermining No No No -Wound/Ulcer Outcome Not Healed Not Healed Not Healed -Ulcer Cleansing Rinsed/ Rinsed/ Irrigated with Irrigated with Saline Saline -Foul Odor after Cleansing No No -Bioengineered Tissue No Yes Yes -Type of Bioengineered Tissue Epifix Mesh Epifix Mesh -Expiration Date 01/18/26 01/18/26 -Product Lot Number [id number] -Percent Used 100 100 -Lot number of Saline Used [id number] -Bleeding Controlled with Pressure Pressure Pressure -Offloading No No No -Treatment Response Procedure Procedure Procedure Tolerated Well Tolerated Well Tolerated Well -Debridement - Subq, 1st 20sq cm Yes No No -Debridement, SubQ, ea addt'l 20sq cm 2 or part thereof -Apply Skin Sub - 1st 25 sq cm - Legs 1 1 -Apply Skin Sub - each addt'l 25 sq cm 1 1 - Legs -Apply Skin Sub - 1st 25 sq cm - Feet -Epifix Mesh (per sq cm) 11 11 Pain Scale: 0-10 Numeric Is Patient Pain Free? Yes Yes 05/12/21 09:20 Wound Center Nurse 2 #3- LLE LAT POST OP -Time 09:25 -Correct Patient Yes -Correct Side, Site, Position Yes -Correct Procedure Yes -Procedure Performed Yes -Type of Procedure Debridement -Clinical Debridement Subcutaneous -Tissue Removed Subcutaneous -Post Debridement (cm) - Length 5.7 -Post Debridement (cm) - Width 5 -Post Debridement (cm) - Depth 0.1 -Total Square (Post) (cm) 28.5 -Area of Debridement (cm) - Length 5.7 -Area of Debridement (cm) - Width 5 -Total Square (Area) (cm) 28.5 -Tunneling No -Undermining/Tunneling No -Circular Undermining No -Wound/Ulcer Outcome Not Healed -Ulcer Cleansing Rinsed/ Irrigated with Saline -Foul Odor after Cleansing No -Bioengineered Tissue Yes -Type of Bioengineered Tissue Epifix Mesh -Expiration Date 01/18/26 -Product Lot Number [id number] -Percent Used 100 -Lot number of Saline Used [id number] -Bleeding Controlled with Pressure -Offloading No -Treatment Response Procedure Tolerated Well -Debridement - Subq, 1st 20sq cm No -Debridement, SubQ, ea addt'l 20sq cm or part thereof -Apply Skin Sub - 1st 25 sq cm - Legs 1 -Apply Skin Sub - each addt'l 25 sq cm - Legs -Apply Skin Sub - 1st 25 sq cm - Feet 1 -Epifix Mesh (per sq cm) 11 Pain Scale: 0-10 Numeric Is Patient Pain Free? Yes - Nurse 3 - General Ulcer D/C NN Start: 04/21/21 10:47 Freq: Status: Active Protocol: Activity Type Activity Date Activity User E-Sign Co-Sign Detail Recorded Client Recorded Date Recorded By Document 04/21/21 11:39 DL [id number] 04/21/21 11:40 DL Document 04/28/21 12:17 JF [id number] 04/28/21 12:17 JF Document 05/05/21 11:16 KR [id number] 05/05/21 11:17 KR Document 05/12/21 09:45 AK [id number] 05/12/21 09:46 AK 04/21/21 04/28/21 05/05/21 11:39 12:17 11:16 Wound Care Nurse 3 #3- LLE LAT POST OP -Ulcer Cleansing Rinsed/ Rinsed/ Rinsed/ Irrigated with Irrigated with Irrigated with Saline Saline Saline -Foul Odor after Cleansing No No -Negative Pressure Wound Therapy -Primary Dressing Applied Aquacel AG 4x4 -Primary Dressing Covered/Secured with Dry Gauze & Dry Gauze & Dry Gauze, Roll Gauze, Roll Gauze, Secured with Secured with Secured with Tape Tape Tape -Aquacel AG 4x4 2 -Mepilex Border Left -Lotion applied to leg before compression wrap -Compression Wrap Dane Wrap -Tubular Bandage Double Layer -Size of Tubigrip Used Size F -Size D ($) -Size F ($) 2 Treatment Response Procedure Tolerated Well Pain Scale: 0-10 Numeric Is Patient Pain Free? Yes Yes Yes - Visit Discharge Discharge Condition Stable Stable Ambulatory Status Ambulatory, Ambulatory, Ambulatory, Walker Walker Walker Transportation Private Auto Private Auto Private Auto Medication Reconcilliation completed & Yes provided to patient/care provider Clinical Summary of Care Provided Yes Facility Type Home Health Orders Sent Yes 05/12/21 09:45 Wound Care Nurse 3 #3- LLE LAT POST OP -Ulcer Cleansing Rinsed/ Irrigated with Saline -Foul Odor after Cleansing No -Negative Pressure Wound Therapy N/A -Primary Dressing Applied Mepilex Border -Primary Dressing Covered/Secured with -Aquacel AG 4x4 -Mepilex Border 1 Left -Lotion applied to leg before No compression wrap -Compression Wrap -Tubular Bandage Double Layer -Size of Tubigrip Used Size D -Size D ($) 2 -Size F ($) Treatment Response Pain Scale: 0-10 Numeric Is Patient Pain Free? WC - Visit Discharge Discharge Condition Stable Ambulatory Status Ambulatory, Walker Transportation Private Auto Medication Reconcilliation completed & Yes provided to patient/care provider Clinical Summary of Care Provided Yes Facility Type Orders Sent Wound debrided: Lateral leg ulcer Laterality: Left Type of Debridement: Excisional debridement Anesthesia Used: 5% Lidocaine Gel Depth: Down to and including healthy tissue and in the subcutaneous layer Percentage of wound debrided: 100 Instrument Used: 5mm curette Tissue Removed: Subcutaneous tissue and slough Severity: Fat Layer Exposed Amount of bleeding with debridement: Mild Bleeding Controlled with: Pressure and Compression and gauze Patient tolerated procedure: Patient tolerated procedure well Assessment/Plan Assessment/Plan (1) Ulcer of left lower extremity with fat layer exposed: CODE(S): L97.922 - Non-pressure 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 (2) Factor 5 Leiden mutation, heterozygous: CODE(S): D68.51 - Activated protein C resistance (3) Traumatic hematoma of left lower leg with infection: CODE(S): S80.12XA - Contusion of left lower leg, initial encounter; L08.9 - Local infection of the skin and subcutaneous tissue, unspecified QUALIFIERS: Encounter type: initial encounter Qualified Code(s): S80.12XA - Contusion of left lower leg, initial encounter; L08.9 - Local infection of the skin and subcutaneous tissue, unspecified (4) Debility: CODE(S): R53.81 - Other malaise (5) Acute postoperative anemia due to expected blood loss: CODE(S): D62 - Acute posthemorrhagic anemia PLAN: Wound care - Epifix #3 applied today. A 4 x 4.5 cm mesh Epifix was used, moistened with saline, covered with wound veil which was secured with steri strips. Dry gauze placed over wound veil. She may change the outer dry gauze dressing as needed. 100% of the product was used. Product code [id number]. Exp. 01/18/26. Do not get the dressing wet, may shower using a shower boot. Encouraged increase protein intake to help with wound healing. 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 We will watch for increased bleeding with debridement. She recently fell and broke her tail bone. Instructed her to try not to sit for long periods of time and to lay on her side with 1-2 pillows between her knees to help keep her spine aligned. Follow up one week.
[2021-05-19 14:26] VITALS: BP 102/56; PULSE 72; TEMP 36.2; BMI 40.8
--- NOTE | 2021-05-19 15:13 | PCM.WC.PN ---
History of Present Illness Date of Service: 05/19/21 Chief Complaint: Traumatic ulcer to the left anterolateral leg History of Wound: 71 YEAR OLD WOMAN PRESENTS WITH A TRAUMATIC INFECTED HEMATOMA LEFT ANTEROLATERAL LEG WITH ASSOCIATED SKIN NECROSIS THAT SHE SUSTAINED ON JANUARY 31, 2021 WHEN SHE FELL AT HOME. SHE IS ON ELIQUIS FOR FACTOR V DEFICIENCY. SHE WENT TO THE ED WHERE THE LACERATION WAS CLEANSED AND SUTURED CLOSED. X-RAY IN THE ED WAS NEGATIVE FOR FRACTURE OR DISLOCATION. SHE FOLLOWED UP WITH HER PCP WHO NOTED SOME SLIGHT WOUND SEPARATION AFTER REMOVING SOME SUTURES. THE LEG WAS WRAPPED WITH GAUZE AND A COMPRESSION DANE WRAP. SOME REDNESS WAS NOTED SUPERIORLY AND SHE WAS STARTED ON DOXYCYCLINE AND CLINDAMYCIN. ALSO SOME SKIN NECROSIS WAS SEEN MEDIALLY. Surgery on 02/18/21 for Surgical preparation left anterolateral leg with incision and drainage and evacuation traumatic infected hematoma and excisional debridement skin necrosis (156 cm2). Operative cultures were positive for Pseudomonas aeroginosa and Anaerobic cocci. She was treated with Levaquin. She wound benefit from a skin graft or an advanced wound care product to assist with wound closure. The patient is not interested in having any further surgery at this time. She has been approved for Epifix placental tissue to help with wound healing. Wound care - Epifix #4 applied today. Tubigrip for compression. She was transferred to TCU on 02/21/21. She was discharged from TCU on 03/14/21 with home health. Today she denies fevers and states her appetite is good. Progress of Wound: Improved. Objective Data Objective Data Vital Signs: Vital Signs Temp Pulse Resp BP 97.1 F L 72 18 102/56 L 05/19/21 14:26 05/19/21 14:26 05/12/21 09:00 05/19/21 14:26 Oxygen Delivery Method Room Air Weight: 223 lb Body Mass Index (BMI) 40.8 Charges/Coding Procedures Integumentary 150xxx-152xx: 15622 Skin sub graft trnk/arm/leg (58 modifier) Physical Exam Const alert and oriented x3 General Appearance: cooperative HEENT normocephalic Head and Scalp: atraumatic Eyes PERRL Lymph Lymphatic: no lymphedema noted Resp clear to auscultation bilaterally Cardio regular rate GI non-tender Palpation: soft Extremity normal capillary refill Extremity Narrative: +1 edema bilateral lower legs. General Extremity: edema Skin Wound Narrative: Left lateral leg ulcer is beefy pink and decreasing in size. Neuro CN's II-XII intact bilaterally Psych Appearance: grossly normal Debridement Note Debridement Note Post-Debridement Measurements and Additional Note: Post-Debridement Measurements/Treatment - Nurse 1 - General Ulcer Assessment Start: 04/21/21 10:47 Freq: Status: Active Protocol: WC.LOWEXT Activity Type Activity Date Activity User E-Sign Co-Sign Detail Recorded Client Recorded Date Recorded By Document 04/21/21 10:50 DL [id number] 04/21/21 10:57 DL Document 04/28/21 11:18 PL [id number] 04/28/21 11:29 PL Document 05/05/21 10:45 KR [id number] 05/05/21 10:52 KR Document 05/12/21 09:00 DL [id number] 05/12/21 09:06 DL Document 05/19/21 14:26 AK [id number] 05/19/21 14:29 AK 04/21/21 04/28/21 05/05/21 10:50 11:18 10:45 - Today's Visit Information Type of service Follow-up Visit Follow-up Visit Follow-up Visit (Physician/RELAY REPAIRER (Physician/RELAY REPAIRER (Physician/RELAY REPAIRER ) ) ) Arrival Mode Ambulatory, Walker Ambulatory, Walker Walker Transfer Assistance None None Patient Identification Verified (Name & Yes Yes Yes ) Patient Requires Transmission-Based No No Precautions Safety Precautions NA Height and Weight Body Mass Index (BMI) 40.8 40.8 40.8 BMI Classification Obese Obese Obese Vital Signs Temperature (97.8 F-99.1 F) 98.7 F 97.8 F 96.8 F L Temperature Source Temporal Temporal Temporal Pulse Rate (60-100) 76 76 72 Pulse Location Monitor Monitor Respiratory Rate (12-18) 20 H 18 16 Respiratory rate source Observation Observation Oxygen Delivery Method Room Air Blood Pressure (90/60-120/80) 136/64 H 122/74 H 128/45 H Blood Pressure Mean (mm Hg) 88 90 72 Source Monitor Monitor Position Sitting Blood Pressure Location Left Arm History Since Last Visit- (Skip if this is Patient's initial visit) Have you changed medications since your No No No last visit? Any new allergies or adverse reactions No No No Had a fall/change in ADL's that may No No No increase risk of falls Signs or symptoms of abuse and/or No No No neglect since last visit Have you been in the hospital since your No No No last visit? Has dressing in place as prescribed Yes Yes Yes Has compression in place as prescribed Yes Yes N/A Has offloadiing in place as prescribed N/A N/A N/A Experienced any changes in pain level or No No No management Left Footwear Regular Shoe Right Footwear Regular Shoe Pain Scale: 0-10 Numeric Is Patient Pain Free? Yes Yes Yes 05/12/21 05/19/21 09:00 14:26 - Today's Visit Information Type of service Follow-up Visit Follow-up Visit (Physician/RELAY REPAIRER (Physician/RELAY REPAIRER ) ) Arrival Mode Ambulatory Ambulatory, Walker Transfer Assistance None Patient Identification Verified (Name & Yes Yes ) Patient Requires Transmission-Based No Precautions Safety Precautions Height and Weight Body Mass Index (BMI) 40.8 40.8 BMI Classification Obese Obese Vital Signs Temperature (97.8 F-99.1 F) 97.8 F 97.1 F L Temperature Source Temporal Temporal Pulse Rate (60-100) 74 72 Pulse Location Monitor Monitor Respiratory Rate (12-18) 18 Respiratory rate source Observation Oxygen Delivery Method Blood Pressure (90/60-120/80) 129/72 H 102/56 L Blood Pressure Mean (mm Hg) 91 71 Source Monitor Monitor Position Blood Pressure Location History Since Last Visit- (Skip if this is Patient's initial visit) Have you changed medications since your No No last visit? Any new allergies or adverse reactions No No Had a fall/change in ADL's that may No No increase risk of falls Signs or symptoms of abuse and/or No No neglect since last visit Have you been in the hospital since your No No last visit? Has dressing in place as prescribed Yes Yes Has compression in place as prescribed Yes No Has offloadiing in place as prescribed N/A No Experienced any changes in pain level or No No management Left Footwear Regular Shoe Right Footwear Regular Shoe Pain Scale: 0-10 Numeric Is Patient Pain Free? Yes - Nurse 1 - General Ulcer Measurement Start: 04/21/21 10:47 Freq: Status: Active Protocol: Activity Type Activity Date Activity User E-Sign Co-Sign Detail Recorded Client Recorded Date Recorded By Document 04/21/21 10:50 DL [id number] 04/21/21 10:57 DL Document 04/28/21 11:18 PL [id number] 04/28/21 11:29 PL Document 05/05/21 10:45 KR [id number] 05/05/21 10:52 KR Document 05/12/21 09:00 DL [id number] 05/12/21 09:06 DL Document 05/19/21 14:26 AK [id number] 05/19/21 14:29 AK 04/21/21 04/28/21 05/05/21 10:50 11:18 10:45 Wound Center Nurse 1 #3- LLE LAT POST OP -Combined with other wound No No -Current Size (cm) - Length 7.1 6.5 6.5 -Current Size (cm) - Width 6 5.0 5.5 -Current Size (cm) - Depth 0.1 0.1 0.1 -Total Square Cm 42.6 32.50 35.75 -Photo Taken No No No -Epithelialization None Present Small 1-33% -Tunneling No No -Undermining/Tunneling No No -Circular Undermining No No -Exudate Amt Medium Medium Medium -Exudate Type Serosanguineous Serosanguineous Serosanguineous -Wound Margin Distinct, Distinct, Outline Outline Attached Attached -Granulation Amt Large (67-100%) Large (67-100%) Large (67-100%) -Granulation Quality Red [place] -Slough/Fibrin Yes Yes -Necrosis Amt None Present (0 Small (1-33%) Small (1-33%) %) -Necrotic Tissue Type Adherent Slough Adherent Slough -Structure Exposed N/A -Texture (Rubia-wound Skin Appearance) Scarring No Abnormality Assessed, Scarring -Moisture (Rubia-wound Skin Appearance) No Abnormality Dry/Scaly Assessed -Color (Rubia-wound Skin Appearance) Assessed No Abnormality Assessed -Temperature (Rubia-wound Skin No Abnormality No Abnormality No Abnormality Appearance) (Pt Warm) (Pt Warm) (Pt Warm) -Tenderness on Palpation (Rubia-wound No No Skin Appearance) -Ulcer Cleansing Wound Cleanser Rinsed/ soapy water Irrigated with Saline -Foul Odor after Cleansing Yes, Due to No No Product Use -Anesthetic Used 4% Lidocaine 4% Lidocaine 4% Lidocaine Solution Solution Solution Lower Limb Edema Present Yes Left Calf (cm) 38.5 41.2 Left Ankle (cm) 28 31.4 05/12/21 05/19/21 09:00 14:26 Wound Center Nurse 1 #3- LLE LAT POST OP -Combined with other wound -Current Size (cm) - Length 5.8 5.5 -Current Size (cm) - Width 4.8 4.5 -Current Size (cm) - Depth 0.1 0.1 -Total Square Cm 27.84 24.75 -Photo Taken No No -Epithelialization -Tunneling No -Undermining/Tunneling No -Circular Undermining No -Exudate Amt Medium Large -Exudate Type Serosanguineous Serosanguineous -Wound Margin Distinct, Distinct, Outline Outline Attached Attached -Granulation Amt Medium (34-66%) Large (67-100%) -Granulation Quality Hyper- Red granulation,Red -Slough/Fibrin Yes -Necrosis Amt Medium (34-66%) Large (67-100%) -Necrotic Tissue Type Adherent Slough Adherent Slough -Structure Exposed N/A N/A -Texture (Rubia-wound Skin Appearance) Scarring No Abnormality, Assessed -Moisture (Rubia-wound Skin Appearance) No Abnormality No Abnormality, Assessed -Color (Rubia-wound Skin Appearance) No Abnormality No Abnormality, Assessed -Temperature (Rubia-wound Skin No Abnormality No Abnormality Appearance) (Pt Warm) (Pt Warm) -Tenderness on Palpation (Rubia-wound No Yes Skin Appearance) -Ulcer Cleansing Wound Cleanser Rinsed/ Irrigated with Saline -Foul Odor after Cleansing No -Anesthetic Used 4% Lidocaine 5% Lidocaine Solution Gel Lower Limb Edema Present Left Calf (cm) 378 40 Left Ankle (cm) 27.3 28 - Nurse 2 - General Ulcer CM Notes Start: 04/21/21 10:47 Freq: Status: Active Protocol: Activity Type Activity Date Activity User E-Sign Co-Sign Detail Recorded Client Recorded Date Recorded By Document 04/21/21 11:19 JF [id number] 04/21/21 11:25 JF Document 04/28/21 12:03 JF [id number] 04/28/21 12:09 JF Edit Result 04/28/21 12:03 JF (1) [id number] 05/01/21 11:38 PL Document 05/05/21 10:58 JF [id number] 05/05/21 11:11 JF Document 05/12/21 09:20 JF [id number] 05/12/21 09:29 JF Edit Result 05/12/21 09:20 JF (2) [id number] 05/13/21 07:06 PL Document 05/19/21 14:39 JF [id number] 05/19/21 14:46 JF (1) #3- LLE LAT POST OP - Epifix Mesh (per sq cm) 16 => 11 (2) #3- LLE LAT POST OP - Apply Skin Sub - each addt'l 25 sq cm => 1 - Legs - Apply Skin Sub - 1st 25 sq cm - Feet 1 => 04/21/21 04/28/21 05/05/21 11:19 12:03 10:58 Wound Center Nurse 2 #3- LLE LAT POST OP -Time 11:19 12:06 11:01 -Correct Patient Yes Yes Yes -Correct Side, Site, Position Yes Yes Yes -Correct Procedure Yes Yes Yes -Procedure Performed Yes Yes Yes -Type of Procedure Debridement Debridement Debridement -Clinical Debridement Subcutaneous Subcutaneous Subcutaneous -Tissue Removed Subcutaneous Subcutaneous Subcutaneous -Post Debridement (cm) - Length 7 6.8 6 -Post Debridement (cm) - Width 6.5 6 5.5 -Post Debridement (cm) - Depth 0.1 0.1 0.1 -Total Square (Post) (cm) 45.5 40.8 33.0 -Area of Debridement (cm) - Length 7 6.8 6 -Area of Debridement (cm) - Width 6.5 6 5.5 -Total Square (Area) (cm) 45.5 40.8 33.0 -Tunneling No No No -Undermining/Tunneling No No No -Circular Undermining No No No -Wound/Ulcer Outcome Not Healed Not Healed Not Healed -Ulcer Cleansing Rinsed/ Rinsed/ Irrigated with Irrigated with Saline Saline -Foul Odor after Cleansing No No -Bioengineered Tissue No Yes Yes -Type of Bioengineered Tissue Epifix Mesh Epifix Mesh -Expiration Date 01/18/26 01/18/26 -Product Lot Number [id number] -Percent Used 100 100 -Lot number of Saline Used [id number] -Bleeding Controlled with Pressure Pressure Pressure -Offloading No No No -Treatment Response Procedure Procedure Procedure Tolerated Well Tolerated Well Tolerated Well -Debridement - Subq, 1st 20sq cm Yes No No -Debridement, SubQ, ea addt'l 20sq cm 2 or part thereof -Apply Skin Sub - 1st 25 sq cm - Legs 1 1 -Apply Skin Sub - each addt'l 25 sq cm 1 1 - Legs -Epifix Mesh (per sq cm) 11 11 Pain Scale: 0-10 Numeric Is Patient Pain Free? Yes Yes 05/12/21 05/19/21 09:20 14:39 Wound Center Nurse 2 #3- LLE LAT POST OP -Time 09:25 14:39 -Correct Patient Yes Yes -Correct Side, Site, Position Yes Yes -Correct Procedure Yes Yes -Procedure Performed Yes Yes -Type of Procedure Debridement Debridement -Clinical Debridement Subcutaneous Subcutaneous -Tissue Removed Subcutaneous Subcutaneous -Post Debridement (cm) - Length 5.7 5.1 -Post Debridement (cm) - Width 5 4.5 -Post Debridement (cm) - Depth 0.1 0.1 -Total Square (Post) (cm) 28.5 22.95 -Area of Debridement (cm) - Length 5.7 5.1 -Area of Debridement (cm) - Width 5 4.5 -Total Square (Area) (cm) 28.5 22.95 -Tunneling No No -Undermining/Tunneling No No -Circular Undermining No No -Wound/Ulcer Outcome Not Healed Not Healed -Ulcer Cleansing Rinsed/ Rinsed/ Irrigated with Irrigated with Saline Saline -Foul Odor after Cleansing No No -Bioengineered Tissue Yes Yes -Type of Bioengineered Tissue Epifix Mesh Epifix Mesh -Expiration Date 01/18/26 12/19/25 -Product Lot Number [id number] -Percent Used 100 100 -Lot number of Saline Used [id number] -Bleeding Controlled with Pressure -Offloading No No -Treatment Response Procedure Procedure Tolerated Well Tolerated Well -Debridement - Subq, 1st 20sq cm No No -Debridement, SubQ, ea addt'l 20sq cm or part thereof -Apply Skin Sub - 1st 25 sq cm - Legs 1 1 -Apply Skin Sub - each addt'l 25 sq cm 1 - Legs -Epifix Mesh (per sq cm) 11 11 Pain Scale: 0-10 Numeric Is Patient Pain Free? Yes Yes - Nurse 3 - General Ulcer D/C NN Start: 04/21/21 10:47 Freq: Status: Active Protocol: Activity Type Activity Date Activity User E-Sign Co-Sign Detail Recorded Client Recorded Date Recorded By Document 04/21/21 11:39 DL [id number] 04/21/21 11:40 DL Document 04/28/21 12:17 JF [id number] 04/28/21 12:17 JF Document 05/05/21 11:16 KR [id number] 05/05/21 11:17 KR Document 05/12/21 09:45 AK [id number] 05/12/21 09:46 AK Document 05/19/21 14:46 JF [id number] 05/19/21 14:47 JF 04/21/21 04/28/21 05/05/21 11:39 12:17 11:16 Wound Care Nurse 3 #3- LLE LAT POST OP -Ulcer Cleansing Rinsed/ Rinsed/ Rinsed/ Irrigated with Irrigated with Irrigated with Saline Saline Saline -Foul Odor after Cleansing No No -Negative Pressure Wound Therapy -Primary Dressing Applied Aquacel AG 4x4 -Primary Dressing Covered/Secured with Dry Gauze & Dry Gauze & Dry Gauze, Roll Gauze, Roll Gauze, Secured with Secured with Secured with Tape Tape Tape -Aquacel AG 4x4 2 -Mepilex Border Left -Lotion applied to leg before compression wrap -Compression Wrap Dane Wrap -Tubular Bandage Double Layer -Size of Tubigrip Used Size F -Size D ($) -Size F ($) 2 Treatment Response Procedure Tolerated Well Pain Scale: 0-10 Numeric Is Patient Pain Free? Yes Yes Yes WC - Visit Discharge Discharge Condition Stable Stable Ambulatory Status Ambulatory, Ambulatory, Ambulatory, Walker Walker Walker Transportation Private Auto Private Auto Private Auto Medication Reconcilliation completed & Yes provided to patient/care provider Clinical Summary of Care Provided Yes Facility Type Home Health Orders Sent Yes 05/12/21 05/19/21 09:45 14:46 Wound Care Nurse 3 #3- LLE LAT POST OP -Ulcer Cleansing Rinsed/ Rinsed/ Irrigated with Irrigated with Saline Saline -Foul Odor after Cleansing No No -Negative Pressure Wound Therapy N/A -Primary Dressing Applied Mepilex Border Mepilex Border -Primary Dressing Covered/Secured with -Aquacel AG 4x4 -Mepilex Border 1 1 Left -Lotion applied to leg before No compression wrap -Compression Wrap -Tubular Bandage Double Layer -Size of Tubigrip Used Size D -Size D ($) 2 -Size F ($) Treatment Response Pain Scale: 0-10 Numeric Is Patient Pain Free? Yes WC - Visit Discharge Discharge Condition Stable Stable Ambulatory Status Ambulatory, Ambulatory, Walker Walker Transportation Private Auto Private Auto Medication Reconcilliation completed & Yes Yes provided to patient/care provider Clinical Summary of Care Provided Yes Yes Facility Type Orders Sent Wound debrided: Lateral leg ulcer Laterality: Left Wound Grade/Stage: Stage II Type of Debridement: Excisional debridement Anesthesia Used: 5% Lidocaine Gel Depth: Down to and including healthy tissue and in the subcutaneous layer Percentage of wound debrided: 100 Instrument Used: 5mm curette Tissue Removed: Subcutaneous tissue and slough Severity: Fat Layer Exposed Amount of bleeding with debridement: Mild Bleeding Controlled with: Pressure and Compression and gauze Patient tolerated procedure: Patient tolerated procedure well Assessment/Plan Assessment/Plan (1) Ulcer of left lower extremity with fat layer exposed: CODE(S): L97.922 - Non-pressure 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 (2) Factor 5 Leiden mutation, heterozygous: CODE(S): D68.51 - Activated protein C resistance (3) Traumatic hematoma of left lower leg with infection: CODE(S): S80.12XA - Contusion of left lower leg, initial encounter; L08.9 - Local infection of the skin and subcutaneous tissue, unspecified QUALIFIERS: Encounter type: initial encounter Qualified Code(s): S80.12XA - Contusion of left lower leg, initial encounter; L08.9 - Local infection of the skin and subcutaneous tissue, unspecified (4) Debility: CODE(S): R53.81 - Other malaise (5) Acute postoperative anemia due to expected blood loss: CODE(S): D62 - Acute posthemorrhagic anemia PLAN: Wound care - Epifix #4 applied today. A 4 x 4.5 cm mesh Epifix was used, moistened with saline, covered with wound veil which was secured with steri strips. Mepilex dressing placed over wound veil. She may change the outer dry gauze or Mepilex dressing as needed. 100% of the product was used. Product code [id number]. Double layer Tubigrip for compression. Do not get the dressing wet, may shower using a shower boot. Encouraged increase protein intake to help with wound healing. 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 We will watch for increased bleeding with debridement. She recently fell and broke her tail bone. Instructed her to try not to sit for long periods of time and to lay on her side with 1-2 pillows between her knees to help keep her spine aligned. Follow up two weeks.
== END 2021-05-20 23:59 ==
LOC: WC 14:15
PROVIDERS: PCP Family Medicine Geriatric Medicine; Visit Provider Nurse Practitioner Family
DX: L97.822 Non-pressure chronic ulcer of other 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 (principal); Z79.01 Long term (current) use of anticoagulants; D68.51 Activated protein C resistance; S80.12XS Contusion of left lower leg, sequela; W19.XXXS Unspecified fall, sequela; R53.81 Other malaise; L08.9 Local infection of the skin and subcutaneous tissue, unspecified
CPT/HCPCS: 11042; 11045; 15271; 15272; 15275; Q4186

== ENCOUNTER → 2021-05-21 10:06 | Outpatient (CLI) | payer MEDICARE, OTHER, SELFPAY ==
[2021-05-21 10:41] LABS: Absolute Lymphocyte Count 1.07 X10^3/uL (0.83-4.51); Absolute Neutrophil Count 2.7 X10^3/uL (2.0-7.7); Basophil# 0.05 X10^3/uL; Basophil% 1.1 % (0-1); Eosinophil# 0.13 X10^3/uL; Hematocrit 36.1 % (37-47); Hemoglobin 11.4 g/dL (12.0-15.0); Lymphocyte # 1.07 X10^3/ul (0.83-4.51); Lymphocyte % 24.3 % (19-41); Mean Corp Hgb Conc 31.6 g/dL (32-36); Mean Corpuscular Hgb 27.5 pg (27.0-32.0); Monocyte# 0.44 X10^3/uL; NRBC Flagged by Analyzer 0 % (0-5); Neutrophil % 61.4 % (47-70); Platelet Count 226 K/mm3 (150-450); RBC Distribution Width CV 13.4 % (11.6-14.6); RBC Distribution Width SD 42.5 fl (35.1-43.9); Red Blood Count 4.15 M/mm3 (4.2-5.4); White Blood Count 4.4 K/mm3 (4.4-11.0)
[2021-05-21 11:26] LABS: Vitamin D,25 Hydroxy 43.1 ng/mL
[2021-05-21 11:30] LABS: ALB/GLOB Ratio 0.9 RATIO (0.9-2.4); AST(SGOT) 17 U/L (15-37); Alanine Aminotransfer ALT/SGPT 18 U/L (13-56); Albumin, Serum 3.6 g/dL (3.2-5.0); Alkaline Phosphatase 92 U/L (45-117); Anion Gap 5 (5-15); BUN 22 mg/dL (7-18); BUN/Creat Ratio 21.2 RATIO (10-20); Calcium,Total 9.2 mg/dL (8.5-10.1); Chloride 108 mmol/L (98-107); Creatinine, Serum 1.04 mg/dL (0.55-1.02); EST Glomerular Filtration Rate 55 mL/min (>60); Est Glom Filt Rate - Afr Amer 67 mL/min (>60); Globulin 4.2 g/dL (2.2-4.2); Glucose 88 mg/dL (74-106); Potassium 4.1 mmol/L (3.5-5.1); Protein, Total 7.8 g/dL (6.4-8.2); Sodium Level 139 mmol/L (136-145); Thyroid Stim Hormone (TSH) 0.86 uIU/mL (0.358-3.74)
== END ==
PROVIDERS: PCP Family Medicine Geriatric Medicine; Referring Provider Family Medicine Geriatric Medicine; Visit Provider Family Medicine Geriatric Medicine
DX: I10 Essential (primary) hypertension (principal); E55.9 Vitamin D deficiency, unspecified
CPT/HCPCS: 36415; 80053; 82306; 84443; 85025

== ENCOUNTER → 2021-06-03 12:48 | Outpatient (CLI) | payer MEDICARE, OTHER, SELFPAY ==
--- NOTE | 2021-06-03 12:54 | BI_ITS ---
MAMMOGRAPHY - BILATERAL SCREENING REASON FOR EXAM: Female, 71 years old. Routine annual screening examination. PERTINENT HISTORY: Non-contributory. History of prior bilateral breast reduction surgery. TECHNIQUE: Digital bilateral breast sebastián (3D mammographic acquisition) in the CC and MLO projections. 2-D mediolateral oblique (MLO) and craniocaudad (CC) views of both breasts were obtained. CAD: Full Field Digital Mammography with Computer Added Detection was performed. COMPARISON: Comparison is made with prior study dated 06/01/2019 and 05/17/2018. FINDINGS: Breast Composition: The breasts are almost entirely fatty. There are no dominant masses or suspicious calcifications. Stable deformity of the inferior central portion of the left breast. Stable benign-appearing bilateral axillary lymph nodes. No other significant abnormalities are identified. There has been no significant change since the prior study. BI/SCRN MAMM (CAD)W/SEBASTIÁN BILAT IMPRESSION: Stable bilateral screening mammogram. Yearly follow-up mammogram recommended. (A) ASSESSMENT CATEGORY: BIRADS Category 2: Benign. A letter regarding these results will be sent to the patient by the facility within 30 days. Approximately 10% of breast cancers are not detected by mammography. A normal mammogram should not delay biopsy of a clinically suspicious abnormality. [id number] Electronically Signed: Aristides Colin MD at 13:39 EDT , Service support ,
== END ==
PROVIDERS: PCP Family Medicine Geriatric Medicine; Referring Provider Family Medicine Geriatric Medicine; Visit Provider Family Medicine Geriatric Medicine
DX: Z12.31 Encounter for screening mammogram for malignant neoplasm of breast (principal)
CPT/HCPCS: 77063; 77067

== ENCOUNTER 2021-06-19 14:15 | Outpatient (RCR) | payer MEDICARE, OTHER, SELFPAY ==
[2021-05-21 00:19] VITALS: BP 102/56; PULSE 72; RESP 18; TEMP 36.2; BMI 40.8
[2021-06-02 14:29] VITALS: BP 153/78; PULSE 78; TEMP 36.3; BMI 40.8
--- NOTE | 2021-06-02 15:09 | PN.PCM_ITS ---
History of Present Illness Date of Service: 06/02/21 Chief Complaint: Traumatic ulcer to the left anterolateral leg History of Wound: 71 YEAR OLD WOMAN PRESENTS WITH A TRAUMATIC INFECTED HEMATOMA LEFT ANTEROLATERAL LEG WITH ASSOCIATED SKIN NECROSIS THAT SHE SUSTAINED ON JANUARY 31, 2021 WHEN SHE FELL AT HOME. SHE IS ON ELIQUIS FOR FACTOR V DEFICIENCY. SHE WENT TO THE ED WHERE THE LACERATION WAS CLEANSED AND SUTURED CLOSED. X-RAY IN THE ED WAS NEGATIVE FOR FRACTURE OR DISLOCATION. SHE FOLLOWED UP WITH HER PCP WHO NOTED SOME SLIGHT WOUND SEPARATION AFTER REMOVING SOME SUTURES. THE LEG WAS WRAPPED WITH GAUZE AND A COMPRESSION NIA WRAP. SOME REDNESS WAS NOTED SUPERIORLY AND SHE WAS STARTED ON DOXYCYCLINE AND CLINDAMYCIN. ALSO SOME SKIN NECROSIS WAS SEEN MEDIALLY. Surgery on 02/18/21 for Surgical preparation left anterolateral leg with incision and drainage and evacuation traumatic infected hematoma and excisional debridement skin necrosis (156 cm2). Operative cultures were positive for Pseudomonas aeroginosa and Anaerobic cocci. She was treated with Levaquin. She wound benefit from a skin graft or an advanced wound care product to assist with wound closure. The patient is not interested in having any further surgery at this time. She has been approved for Epifix placental tissue to help with wound healing. Wound care - Epifix #5 applied today. Tubigrip for compression. She was transferred to TCU on 02/21/21. She was discharged from TCU on 03/14/21 with home health. Today she denies fevers and states her appetite is good. Progress of Wound: Improved. Objective Data Objective Data Vital Signs: Vital Signs Temp Pulse Resp BP 97.3 F L 78 18 153/78 H 06/02/21 14:29 06/02/21 14:29 05/21/21 00:19 06/02/21 14:29 Weight: 223 lb Body Mass Index (BMI) 40.8 Charges/Coding Procedures Integumentary 150xxx-152xx: 06536 Skin sub graft trnk/arm/leg Physical Exam Const alert and oriented x3 General Appearance: cooperative HEENT normocephalic Head and Scalp: atraumatic Eyes PERRL Lymph Lymphatic: no lymphedema noted Resp normal respiratory effort Cardio regular rate GI Palpation: soft Extremity normal to inspection Extremity Narrative: +1-+2 dependent edema of left lower leg and foot. Skin Wound Narrative: Left anteriolateral leg ulcer is smaller, beefy pink, healing well. Neuro CN's II-XII intact bilaterally Psych Appearance: grossly normal Debridement Note Debridement Note Wound debrided: Anteriolateral leg ulcer Laterality: Left Type of Debridement: Excisional debridement Anesthesia Used: 5% Lidocaine Gel Depth: Down to and including healthy tissue Percentage of wound debrided: 100 Instrument Used: 5mm curette Tissue Removed: Subcutaneous tissue and slough Severity: Fat Layer Exposed Amount of bleeding with debridement: Mild Bleeding Controlled with: Pressure and Compression and gauze Patient tolerated procedure: Patient tolerated procedure well Post-Debridement Measurements and Additional Note: Post-Debridement Measurements/Treatment - Nurse 1 - General Ulcer Assessment Start: 06/02/21 14:26 Freq: Status: Active Protocol: MELIA Activity Type Activity Date Activity User E-Sign Co-Sign Detail Recorded Client Recorded Date Recorded By Document 06/02/21 14:29 NIDA [id number] 06/02/21 14:37 NIDA 06/02/21 14:29 WC - Today's Visit Information Type of service Follow-up Visit (Physician/RETAIL SALES ADVISOR ) Arrival Mode Ambulatory, Walker Patient Identification Verified (Name & Yes ) Patient Requires Transmission-Based No Precautions Safety Precautions NA Height and Weight Body Mass Index (BMI) 40.8 BMI Classification Obese Vital Signs Temperature (97.8 F-99.1 F) 97.3 F L Temperature Source Temporal Pulse Rate (60-100) 78 Pulse Location Monitor Blood Pressure (90/60-120/80) 153/78 H Blood Pressure Mean (mm Hg) 103 Source Monitor History Since Last Visit- (Skip if this is Patient's initial visit) Have you changed medications since your No last visit? Any new allergies or adverse reactions No Had a fall/change in ADL's that may No increase risk of falls Signs or symptoms of abuse and/or No neglect since last visit Have you been in the hospital since your No last visit? Has dressing in place as prescribed Yes Has compression in place as prescribed No Has offloadiing in place as prescribed No Experienced any changes in pain level or No management Left Footwear Regular Shoe Right Footwear Regular Shoe ANTHONY - Nurse 1 - General Ulcer Measurement Start: 06/02/21 14:26 Freq: Status: Active Protocol: Activity Type Activity Date Activity User E-Sign Co-Sign Detail Recorded Client Recorded Date Recorded By Document 06/02/21 14:29 NH [id number] 06/02/21 14:37 NIDA 06/02/21 14:29 Wound Center Nurse 1 #3- LLE LAT POST OP -Combined with other wound No -Current Size (cm) - Length 4 -Current Size (cm) - Width 3 -Current Size (cm) - Depth 0.1 -Total Square Cm 12 -Photo Taken No -Epithelialization None Present -Tunneling No -Undermining/Tunneling No -Circular Undermining No -Change in Wound Grade/Stage No -Exudate Amt Medium -Exudate Type Serosanguineous -Wound Margin Distinct, Outline Attached -Granulation Amt Medium (34-66%) -Granulation Quality [place] -Necrosis Amt Medium (34-66%) -Necrotic Tissue Type Adherent Slough -Structure Exposed N/A -Texture (Rubia-wound Skin Appearance) Assessed -Moisture (Rubia-wound Skin Appearance) Assessed -Color (Rubia-wound Skin Appearance) Assessed -Temperature (Rubia-wound Skin No Abnormality Appearance) (Pt Warm) -Tenderness on Palpation (Rubia-wound No Skin Appearance) -Ulcer Cleansing Rinsed/ Irrigated with Saline -Anesthetic Used 5% Lidocaine Gel Left Calf (cm) 39.5 Left Ankle (cm) 27 WC - Nurse 2 - General Ulcer CM Notes Start: 06/02/21 14:26 Freq: Status: Active Protocol: Activity Type Activity Date Activity User E-Sign Co-Sign Detail Recorded Client Recorded Date Recorded By Document 06/02/21 14:44 MANDEEP [id number] 06/02/21 14:52 MANDEEP 06/02/21 14:44 Wound Center Nurse 2 #3- LLE LAT POST OP -Time 14:46 -Correct Patient Yes -Correct Side, Site, Position Yes -Correct Procedure Yes -Procedure Performed Yes -Type of Procedure Debridement -Clinical Debridement Subcutaneous -Tissue Removed Subcutaneous -Post Debridement (cm) - Length 4.5 -Post Debridement (cm) - Width 4.3 -Post Debridement (cm) - Depth 0.1 -Total Square (Post) (cm) 19.35 -Area of Debridement (cm) - Length 4.5 -Area of Debridement (cm) - Width 4.3 -Total Square (Area) (cm) 19.35 -Tunneling No -Undermining/Tunneling No -Circular Undermining No -Wound/Ulcer Outcome Not Healed -Ulcer Cleansing Rinsed/ Irrigated with Saline -Foul Odor after Cleansing No -Bioengineered Tissue Yes -Type of Bioengineered Tissue Epifix Mesh -Expiration Date 12/19/25 -Product Lot Number [id number] -Percent Used 100 -Lot number of Saline Used [id number] -Bleeding Controlled with Pressure -Offloading No -Treatment Response Procedure Tolerated Well -Debridement - Subq, 1st 20sq cm No -Apply Skin Sub - 1st 25 sq cm - Legs 1 -Epifix Mesh (per sq cm) 11 Pain Scale: 0-10 Numeric Is Patient Pain Free? Yes - Nurse 3 - General Ulcer D/C NN Start: 06/02/21 14:26 Freq: Status: Active Protocol: Activity Type Activity Date Activity User E-Sign Co-Sign Detail Recorded Client Recorded Date Recorded By Document 06/02/21 14:56 [id number] 06/02/21 14:57 06/02/21 14:56 Wound Care Nurse 3 #3- LLE LAT POST OP -Ulcer Cleansing Rinsed/ Irrigated with Saline -Foul Odor after Cleansing No -Primary Dressing Applied Mepilex Border -Mepilex Border 1 Left -Tubular Bandage Double Layer -Size of Tubigrip Used Size E -Size E ($) 2 Pain Scale: 0-10 Numeric Is Patient Pain Free? Yes - Visit Discharge Discharge Condition Stable Ambulatory Status Ambulatory, Walker Transportation Private Auto Medication Reconcilliation completed & Yes provided to patient/care provider Clinical Summary of Care Provided Yes Assessment/Plan Assessment/Plan (1) Ulcer of left lower extremity with fat layer exposed: CODE(S): L97.922 - Non-pressure 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 (2) Factor V deficiency: CODE(S): D68.2 - Hereditary deficiency of other clotting factors (3) Traumatic hematoma of left lower leg with infection: CODE(S): S80.12XA - Contusion of left lower leg, initial encounter; L08.9 - Local infection of the skin and subcutaneous tissue, unspecified QUALIFIERS: Encounter type: initial encounter Qualified Code(s): S80.12XA - Contusion of left lower leg, initial encounter; L08.9 - Local infection of the skin and subcutaneous tissue, unspecified (4) Debility: CODE(S): R53.81 - Other malaise (5) Acute postoperative anemia due to expected blood loss: CODE(S): D62 - Acute posthemorrhagic anemia PLAN: Wound care - Epifix #5 applied today. A 4 x 4.5 cm mesh Epifix was used, moistened with saline, covered with wound veil which was secured with steri strips. Mepilex dressing placed over wound veil. She may change the outer dry gauze or Mepilex dressing as needed. 100% of the product was used. Product code [id number]. Double layer Tubigrip for compression. Do not get the dressing wet, may shower using a shower boot. Encouraged increase protein intake to help with wound healing. 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 We will watch for increased bleeding with debridement. She recently fell and broke her tail bone. Instructed her to try not to sit for long periods of time and to lay on her side with 1-2 pillows between her knees to help keep her spine aligned. Follow up one weeks
[2021-06-09 14:55] VITALS: BP 120/72; PULSE 77; RESP 16; TEMP 36.3; BMI 40.8
--- NOTE | 2021-06-09 15:29 | PCM.WC.PN ---
History of Present Illness Date of Service: 06/09/21 Chief Complaint: Traumatic ulcer to the left anterolateral leg History of Wound: 71 YEAR OLD WOMAN PRESENTS WITH A TRAUMATIC INFECTED HEMATOMA LEFT ANTEROLATERAL LEG WITH ASSOCIATED SKIN NECROSIS THAT SHE SUSTAINED ON JANUARY 31, 2021 WHEN SHE FELL AT HOME. SHE IS ON ELIQUIS FOR FACTOR V DEFICIENCY. SHE WENT TO THE ED WHERE THE LACERATION WAS CLEANSED AND SUTURED CLOSED. X-RAY IN THE ED WAS NEGATIVE FOR FRACTURE OR DISLOCATION. SHE FOLLOWED UP WITH HER PCP WHO NOTED SOME SLIGHT WOUND SEPARATION AFTER REMOVING SOME SUTURES. THE LEG WAS WRAPPED WITH GAUZE AND A COMPRESSION NIA WRAP. SOME REDNESS WAS NOTED SUPERIORLY AND SHE WAS STARTED ON DOXYCYCLINE AND CLINDAMYCIN. ALSO SOME SKIN NECROSIS WAS SEEN MEDIALLY. Surgery on 02/18/21 for Surgical preparation left anterolateral leg with incision and drainage and evacuation traumatic infected hematoma and excisional debridement skin necrosis (156 cm2). Operative cultures were positive for Pseudomonas aeroginosa and Anaerobic cocci. She was treated with Levaquin. She wound benefit from a skin graft or an advanced wound care product to assist with wound closure. The patient is not interested in having any further surgery at this time. She has been approved for Epifix placental tissue to help with wound healing. Wound care - Epifix #6 applied today. Tubigrip for compression. She was transferred to TCU on 02/21/21. She was discharged from TCU on 03/14/21 with home health. Today she denies fevers and states her appetite is good. Progress of Wound: Improved. Objective Data Objective Data Vital Signs: Vital Signs Temp Pulse Resp BP 97.3 F L 77 16 120/72 06/09/21 14:55 06/09/21 14:55 06/09/21 14:55 06/09/21 14:55 Oxygen Delivery Method Room Air Weight: 223 lb Body Mass Index (BMI) 40.8 Charges/Coding Procedures Integumentary 150xxx-152xx: 58044 Skin sub graft trnk/arm/leg Physical Exam Const alert and oriented x3 General Appearance: cooperative HEENT normocephalic Eyes PERRL Resp normal respiratory effort Cardio regular rate GI non-tender Palpation: soft Extremity normal capillary refill Extremity Narrative: Bilateral lower leg edema +2. Skin Skin Narrative: Left lower leg ulcer is improving in size. Neuro CN's II-XII intact bilaterally Psych Appearance: grossly normal Debridement Note Debridement Note Wound debrided: lower leg ulcer Laterality: Left Type of Debridement: Excisional debridement Anesthesia Used: 5% Lidocaine Gel Depth: Down to and including healthy tissue and in the subcutaneous layer Percentage of wound debrided: 100 Instrument Used: 5mm curette Tissue Removed: subcutanous tissue and slough Severity: Fat Layer Exposed Amount of bleeding with debridement: Mild Bleeding Controlled with: Pressure and Compression and gauze Patient tolerated procedure: Patient tolerated procedure well Post-Debridement Measurements and Additional Note: Post-Debridement Measurements/Treatment - Nurse 1 - General Ulcer Assessment Start: 06/02/21 14:26 Freq: Status: Active Protocol: ANTHONYZenkars Activity Type Activity Date Activity User E-Sign Co-Sign Detail Recorded Client Recorded Date Recorded By Document 06/02/21 14:29 MA [id number] 06/02/21 14:37 MA Document 06/09/21 14:55 [facility] [id number] 06/09/21 14:57 [facility] 06/02/21 06/09/21 14:29 14:55 - Today's Visit Information Type of service Follow-up Visit Follow-up Visit (Physician/MARKETING PRODUCTION COORDINATOR (Physician/MARKETING PRODUCTION COORDINATOR ) ) Arrival Mode Ambulatory, Ambulatory, Walker Walker Transfer Assistance None Patient Identification Verified (Name & Yes Yes ) Patient Requires Transmission-Based No No Precautions Safety Precautions NA Height and Weight Body Mass Index (BMI) 40.8 40.8 BMI Classification Obese Obese Vital Signs Temperature (97.8 F-99.1 F) 97.3 F L 97.3 F L Temperature Source Temporal Temporal Pulse Rate (60-100) 78 77 Pulse Location Monitor Monitor Respiratory Rate (12-18) 16 Respiratory rate source Observation Oxygen Delivery Method Room Air Blood Pressure (90/60-120/80) 153/78 H 120/72 Blood Pressure Mean (mm Hg) 103 88 Source Monitor Monitor Position Sitting Blood Pressure Location Left Arm History Since Last Visit- (Skip if this is Patient's initial visit) Have you changed medications since your No No last visit? Any new allergies or adverse reactions No No Had a fall/change in ADL's that may No No increase risk of falls Signs or symptoms of abuse and/or No No neglect since last visit Have you been in the hospital since your No No last visit? Has dressing in place as prescribed Yes Yes Has compression in place as prescribed No Yes Has offloadiing in place as prescribed No N/A Experienced any changes in pain level or No No management Left Footwear Regular Shoe Regular Shoe Right Footwear Regular Shoe Regular Shoe Pain Scale: 0-10 Numeric Is Patient Pain Free? Yes WC - Nurse 1 - General Ulcer Measurement Start: 06/02/21 14:26 Freq: Status: Active Protocol: Activity Type Activity Date Activity User E-Sign Co-Sign Detail Recorded Client Recorded Date Recorded By Document 06/02/21 14:29 MA [id number] 06/02/21 14:37 [place] Document 06/09/21 14:55 [facility] [id number] 06/09/21 14:57 [facility] 06/02/21 06/09/21 14:29 14:55 Wound Center Nurse 1 #3- LLE LAT POST OP -Combined with other wound No No -Current Size (cm) - Length 4 3.2 -Current Size (cm) - Width 3 2.6 -Current Size (cm) - Depth 0.1 0.1 -Total Square Cm 12 8.32 -Date of Last Picture (Recall this 06/09/21 field) -Photo Taken No Yes -Epithelialization None Present Small 1-33% -Tunneling No No -Undermining/Tunneling No No -Circular Undermining No No -Change in Wound Grade/Stage No -Exudate Amt Medium Medium -Exudate Type Serosanguineous Serosanguineous -Wound Margin Distinct, Distinct, Outline Outline Attached Attached -Granulation Amt Medium (34-66%) Medium (34-66%) -Granulation Quality [place] Red -Slough/Fibrin Yes -Necrosis Amt Medium (34-66%) Medium (34-66%) -Necrotic Tissue Type Adherent Slough Adherent Slough -Structure Exposed N/A -Texture (Rubia-wound Skin Appearance) Assessed Assessed, Scarring -Moisture (Rubia-wound Skin Appearance) Assessed Assessed,Dry/ Scaly -Color (Rubia-wound Skin Appearance) Assessed Assessed -Temperature (Rubia-wound Skin No Abnormality No Abnormality Appearance) (Pt Warm) (Pt Warm) -Tenderness on Palpation (Rubia-wound No No Skin Appearance) -Ulcer Cleansing Rinsed/ Soap and Water Irrigated with Saline -Foul Odor after Cleansing No -Anesthetic Used 5% Lidocaine 4% Lidocaine Gel Solution Lower Limb Edema Present Yes Left Calf (cm) 39.5 38 Left Ankle (cm) 27 30 - Nurse 2 - General Ulcer CM Notes Start: 06/02/21 14:26 Freq: Status: Active Protocol: Activity Type Activity Date Activity User E-Sign Co-Sign Detail Recorded Client Recorded Date Recorded By Document 06/02/21 14:44 [id number] 06/02/21 14:52 Document 06/09/21 15:10 [id number] 06/09/21 15:15 06/02/21 06/09/21 14:44 15:10 Wound Center Nurse 2 #3- LLE LAT POST OP -Time 14:46 15:10 -Correct Patient Yes Yes -Correct Side, Site, Position Yes Yes -Correct Procedure Yes Yes -Procedure Performed Yes Yes -Type of Procedure Debridement Debridement -Clinical Debridement Subcutaneous Subcutaneous -Tissue Removed Subcutaneous Subcutaneous -Post Debridement (cm) - Length 4.5 4 -Post Debridement (cm) - Width 4.3 2.7 -Post Debridement (cm) - Depth 0.1 0.1 -Total Square (Post) (cm) 19.35 10.8 -Area of Debridement (cm) - Length 4.5 4 -Area of Debridement (cm) - Width 4.3 2.7 -Total Square (Area) (cm) 19.35 10.8 -Tunneling No No -Undermining/Tunneling No No -Circular Undermining No No -Wound/Ulcer Outcome Not Healed Not Healed -Ulcer Cleansing Rinsed/ Rinsed/ Irrigated with Irrigated with Saline Saline -Foul Odor after Cleansing No No -Bioengineered Tissue Yes Yes -Type of Bioengineered Tissue Epifix Mesh Epifix Mesh -Expiration Date 12/19/25 12/19/25 -Product Lot Number [id number] -Percent Used 100 100 -Lot number of Saline Used [id number] -Bleeding Controlled with Pressure Pressure -Offloading No No -Treatment Response Procedure Procedure Tolerated Well Tolerated Well -Debridement - Subq, 1st 20sq cm No No -Apply Skin Sub - 1st 25 sq cm - Legs 1 1 -Epifix Mesh (per sq cm) 11 11 Pain Scale: 0-10 Numeric Is Patient Pain Free? Yes Yes - Nurse 3 - General Ulcer D/C NN Start: 06/02/21 14:26 Freq: Status: Active Protocol: Activity Type Activity Date Activity User E-Sign Co-Sign Detail Recorded Client Recorded Date Recorded By Document 06/02/21 14:56 [id number] 06/02/21 14:57 Document 06/09/21 15:17 [id number] 06/09/21 15:17 06/02/21 06/09/21 14:56 15:17 Wound Care Nurse 3 #3- LLE LAT POST OP -Ulcer Cleansing Rinsed/ Rinsed/ Irrigated with Irrigated with Saline Saline -Foul Odor after Cleansing No No -Primary Dressing Applied Mepilex Border Mepilex Border -Mepilex Border 1 1 Left -Tubular Bandage Double Layer -Size of Tubigrip Used Size E -Size E ($) 2 Pain Scale: 0-10 Numeric Is Patient Pain Free? Yes Yes WC - Visit Discharge Discharge Condition Stable Stable Ambulatory Status Ambulatory, Ambulatory, Walker Walker Transportation Private Auto Private Auto Medication Reconcilliation completed & Yes Yes provided to patient/care provider Clinical Summary of Care Provided Yes Yes Assessment/Plan Assessment/Plan (1) Ulcer of left lower extremity with fat layer exposed: CODE(S): L97.922 - Non-pressure 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 (2) Factor 5 Leiden mutation, heterozygous: CODE(S): D68.51 - Activated protein C resistance (3) Acute postoperative anemia due to expected blood loss: CODE(S): D62 - Acute posthemorrhagic anemia PLAN: Wound care - Epifix #6 applied today. A 4 x 4.5 cm mesh Epifix was used, moistened with saline, covered with wound veil which was secured with steri strips. Mepilex dressing placed over wound veil. She may change the outer dry gauze or Mepilex dressing as needed. 100% of the product was used. Product code [id number]. Double layer Tubigrip for compression. Do not get the dressing wet, may shower using a shower boot. Encouraged increase protein intake to help with wound healing. 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 We will watch for increased bleeding with debridement. She recently fell and broke her tail bone. Instructed her to try not to sit for long periods of time and to lay on her side with 1-2 pillows between her knees to help keep her spine aligned. Follow up one week with a courtesy visit.
[2021-06-19 14:11] VITALS: BP 115/68; PULSE 76; TEMP 35.6; BMI 40.8
--- NOTE | 2021-06-19 17:30 | PN.PCM_ITS ---
History of Present Illness Date of Service: 06/19/21 Chief Complaint: Traumatic ulcer to the left anterolateral leg History of Wound: 71 YEAR OLD WOMAN PRESENTS WITH A TRAUMATIC INFECTED HEMATOMA LEFT ANTEROLATERAL LEG WITH ASSOCIATED SKIN NECROSIS THAT SHE SUSTAINED ON JANUARY 31, 2021 WHEN SHE FELL AT HOME. SHE IS ON ELIQUIS FOR FACTOR V DEFICIENCY. SHE WENT TO THE ED WHERE THE LACERATION WAS CLEANSED AND SUTURED CLOSED. X-RAY IN THE ED WAS NEGATIVE FOR FRACTURE OR DISLOCATION. SHE FOLLOWED UP WITH HER PCP WHO NOTED SOME SLIGHT WOUND SEPARATION AFTER REMOVING SOME SUTURES. THE LEG WAS WRAPPED WITH GAUZE AND A COMPRESSION NIA WRAP. SOME REDNESS WAS NOTED SUPERIORLY AND SHE WAS STARTED ON DOXYCYCLINE AND CLINDAMYCIN. ALSO SOME SKIN NECROSIS WAS SEEN MEDIALLY. Surgery on 02/18/21 for Surgical preparation left anterolateral leg with incision and drainage and evacuation traumatic infected hematoma and excisional debridement skin necrosis (156 cm2). Operative cultures were positive for Pseudomonas aeroginosa and Anaerobic cocci. She was treated with Levaquin. She wound benefit from a skin graft or an advanced wound care product to assist with wound closure. The patient is not interested in having any further surgery at this time. She has been approved for Epifix placental tissue to help with wound healing. Wound care - Epifix #6 applied today. Tubigrip for compression. She was transferred to TCU on 02/21/21. She was discharged from TCU on 03/14/21 with home health. Today she denies fevers and states her appetite is good. Progress of Wound: Courtesy visit for Kathy LYONS, improved. Epifix #7 applied today. Objective Data Objective Data Vital Signs: Vital Signs Temp Pulse Resp BP 96.1 F L 76 16 115/68 06/19/21 14:11 06/19/21 14:11 06/09/21 14:55 06/19/21 14:11 Oxygen Delivery Method Room Air Weight: 223 lb Body Mass Index (BMI) 40.8 Charges/Coding Procedures Integumentary 150xxx-152xx: 39402 Skin sub graft trnk/arm/leg Physical Exam Const alert and oriented x3 General Appearance: cooperative HEENT normocephalic Eyes PERRL Resp normal respiratory effort Cardio regular rate GI non-tender Palpation: soft Extremity normal capillary refill Extremity Narrative: Bilateral lower leg edema +2. Skin Skin Narrative: Left lower leg ulcer is improving in size. Neuro CN's II-XII intact bilaterally Psych Appearance: grossly normal Debridement Note Debridement Note Wound debrided: Left lower extremity ulcer Laterality: Left Type of Debridement: Excisional debridement Anesthesia Used: 4% Lidocaine Solution Depth: in the subcutaneous layer Percentage of wound debrided: 100 Instrument Used: 5mm curette Tissue Removed: Slough and devitalized tissue Severity: Fat Layer Exposed Amount of bleeding with debridement: Mild Bleeding Controlled with: Pressure Patient tolerated procedure: Patient tolerated procedure well Post-Debridement Measurements and Additional Note: Post-Debridement Measurements/Treatment - Nurse 1 - General Ulcer Assessment Start: 06/02/21 14:26 Freq: Status: Active Protocol: MELIA Activity Type Activity Date Activity User E-Sign Co-Sign Detail Recorded Client Recorded Date Recorded By Document 06/02/21 14:29 AK [id number] 06/02/21 14:37 AK Document 06/09/21 14:55 [facility] [id number] 06/09/21 14:57 [facility] Document 06/19/21 14:11 KR [id number] 06/19/21 14:12 KR 06/02/21 06/09/21 06/19/21 14:29 14:55 14:11 - Today's Visit Information Type of service Follow-up Visit Follow-up Visit Follow-up Visit (Physician/CUSTOMER SOLUTIONS ARCHITECT (Physician/CUSTOMER SOLUTIONS ARCHITECT (Physician/CUSTOMER SOLUTIONS ARCHITECT ) ) ) Arrival Mode Ambulatory, Ambulatory, Ambulatory, Walker Walker Walker Transfer Assistance None Patient Identification Verified (Name & Yes Yes Yes ) Patient Requires Transmission-Based No No Precautions Safety Precautions NA Height and Weight Body Mass Index (BMI) 40.8 40.8 40.8 BMI Classification Obese Obese Obese Vital Signs Temperature (97.8 F-99.1 F) 97.3 F L 97.3 F L 96.1 F L Temperature Source Temporal Temporal Temporal Pulse Rate (60-100) 78 77 76 Pulse Location Monitor Monitor Monitor Respiratory Rate (12-18) 16 Respiratory rate source Observation Oxygen Delivery Method Room Air Blood Pressure (90/60-120/80) 153/78 H 120/72 115/68 Blood Pressure Mean (mm Hg) 103 88 83 Source Monitor Monitor Monitor Position Sitting Semi-Fowlers Blood Pressure Location Left Arm Right Arm History Since Last Visit- (Skip if this is Patient's initial visit) Have you changed medications since your No No No last visit? Any new allergies or adverse reactions No No No Had a fall/change in ADL's that may No No No increase risk of falls Signs or symptoms of abuse and/or No No No neglect since last visit Have you been in the hospital since your No No No last visit? Has dressing in place as prescribed Yes Yes Yes Has compression in place as prescribed No Yes Yes Has offloadiing in place as prescribed No N/A N/A Experienced any changes in pain level or No No No management Left Footwear Regular Shoe Regular Shoe Regular Shoe Right Footwear Regular Shoe Regular Shoe Regular Shoe Pain Scale: 0-10 Numeric Is Patient Pain Free? Yes Yes WC - Nurse 1 - General Ulcer Measurement Start: 06/02/21 14:26 Freq: Status: Active Protocol: Activity Type Activity Date Activity User E-Sign Co-Sign Detail Recorded Client Recorded Date Recorded By Document 06/02/21 14:29 WI [id number] 06/02/21 14:37 WI Document 06/09/21 14:55 [facility] [id number] 06/09/21 14:57 [facility] Document 06/19/21 14:11 KR [id number] 06/19/21 14:12 KR 06/02/21 06/09/21 06/19/21 14:29 14:55 14:11 Wound Center Nurse 1 #3- LLE LAT POST OP -Combined with other wound No No -Current Size (cm) - Length 4 3.2 3.1 -Current Size (cm) - Width 3 2.6 2.4 -Current Size (cm) - Depth 0.1 0.1 0.1 -Total Square Cm 12 8.32 7.44 -Date of Last Picture (Recall this 06/09/21 field) -Photo Taken No Yes -Epithelialization None Present Small 1-33% -Tunneling No No -Undermining/Tunneling No No -Circular Undermining No No -Change in Wound Grade/Stage No -Exudate Amt Medium Medium Medium -Exudate Type Serosanguineous Serosanguineous Serosanguineous -Wound Margin Distinct, Distinct, Distinct, Outline Outline Outline Attached Attached Attached -Granulation Amt Medium (34-66%) Medium (34-66%) Medium (34-66%) -Granulation Quality [place] Red Red -Slough/Fibrin Yes -Necrosis Amt Medium (34-66%) Medium (34-66%) Medium (34-66%) -Necrotic Tissue Type Adherent Slough Adherent Slough Adherent Slough -Structure Exposed N/A -Texture (Rubia-wound Skin Appearance) Assessed Assessed, Assessed, Scarring Scarring -Moisture (Rubia-wound Skin Appearance) Assessed Assessed,Dry/ No Abnormality, Scaly Assessed -Color (Rubia-wound Skin Appearance) Assessed Assessed No Abnormality, Assessed -Temperature (Rubia-wound Skin No Abnormality No Abnormality No Abnormality Appearance) (Pt Warm) (Pt Warm) (Pt Warm) -Tenderness on Palpation (Rubia-wound No No No Skin Appearance) -Ulcer Cleansing Rinsed/ Soap and Water Rinsed/ Irrigated with Irrigated with Saline Saline -Foul Odor after Cleansing No No -Anesthetic Used 5% Lidocaine 4% Lidocaine 5% Lidocaine Gel Solution Gel Lower Limb Edema Present Yes Left Calf (cm) 39.5 38 Left Ankle (cm) 27 30 WC - Nurse 2 - General Ulcer CM Notes Start: 06/02/21 14:26 Freq: Status: Active Protocol: Activity Type Activity Date Activity User E-Sign Co-Sign Detail Recorded Client Recorded Date Recorded By Document 06/02/21 14:44 [id number] 06/02/21 14:52 Document 06/09/21 15:10 [id number] 06/09/21 15:15 Document 06/19/21 14:35 MW [id number] 06/19/21 14:41 MW 06/02/21 06/09/21 06/19/21 14:44 15:10 14:35 Wound Center Nurse 2 #3- LLE LAT POST OP -Time 14:46 15:10 14:35 -Correct Patient Yes Yes Yes -Correct Side, Site, Position Yes Yes Yes -Correct Procedure Yes Yes Yes -Procedure Performed Yes Yes Yes -Type of Procedure Debridement Debridement Debridement -Clinical Debridement Subcutaneous Subcutaneous Subcutaneous -Tissue Removed Subcutaneous Subcutaneous Subcutaneous -Post Debridement (cm) - Length 4.5 4 3.3 -Post Debridement (cm) - Width 4.3 2.7 2.5 -Post Debridement (cm) - Depth 0.1 0.1 0.1 -Total Square (Post) (cm) 19.35 10.8 8.25 -Area of Debridement (cm) - Length 4.5 4 3.3 -Area of Debridement (cm) - Width 4.3 2.7 2.5 -Total Square (Area) (cm) 19.35 10.8 8.25 -Tunneling No No No -Undermining/Tunneling No No -Circular Undermining No No No -Wound/Ulcer Outcome Not Healed Not Healed Not Healed -Ulcer Cleansing Rinsed/ Rinsed/ Rinsed/ Irrigated with Irrigated with Irrigated with Saline Saline Saline -Foul Odor after Cleansing No No No -Bioengineered Tissue Yes Yes Yes -Type of Bioengineered Tissue Epifix Mesh Epifix Mesh Epifix Mesh -Expiration Date 12/19/25 12/19/25 03/20/26 -Product Lot Number [id number] -Percent Used 100 100 100 -Lot number of Saline Used [id number] -Bleeding Controlled with Pressure Pressure Pressure -Offloading No No No -Treatment Response Procedure Procedure Procedure Tolerated Well Tolerated Well Tolerated Well -Debridement - Subq, 1st 20sq cm No No No -Apply Skin Sub - 1st 25 sq cm - Legs 1 1 1 -Epifix Mesh (per sq cm) 11 11 11 Pain Scale: 0-10 Numeric Is Patient Pain Free? Yes Yes - Nurse 3 - General Ulcer D/C NN Start: 06/02/21 14:26 Freq: Status: Active Protocol: Activity Type Activity Date Activity User E-Sign Co-Sign Detail Recorded Client Recorded Date Recorded By Document 06/02/21 14:56 [id number] 06/02/21 14:57 Document 06/09/21 15:17 [id number] 06/09/21 15:17 Document 06/19/21 15:00 [id number] 06/19/21 15:01 06/02/21 06/09/21 06/19/21 14:56 15:17 15:00 Wound Care Nurse 3 #3- LLE LAT POST OP -Ulcer Cleansing Rinsed/ Rinsed/ Irrigated with Irrigated with Saline Saline -Foul Odor after Cleansing No No -Primary Dressing Applied Mepilex Border Mepilex Border Mepilex Border -Mepilex Border 1 1 1 Left -Tubular Bandage Double Layer -Size of Tubigrip Used Size E -Size E ($) 2 Pain Scale: 0-10 Numeric Is Patient Pain Free? Yes Yes Yes WC - Visit Discharge Discharge Condition Stable Stable Stable Ambulatory Status Ambulatory, Ambulatory, Ambulatory, Walker Walker Walker Transportation Private Auto Private Auto Private Auto Accompanied by self Medication Reconcilliation completed & Yes Yes provided to patient/care provider Clinical Summary of Care Provided Yes Yes Assessment/Plan Assessment/Plan (1) Ulcer of left lower extremity with fat layer exposed: CODE(S): L97.922 - Non-pressure 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 (2) Factor 5 Leiden mutation, heterozygous: CODE(S): D68.51 - Activated protein C resistance (3) Acute postoperative anemia due to expected blood loss: CODE(S): D62 - Acute posthemorrhagic anemia PLAN: Courtesy visit for Kathy PIPE STRIPPER-wound care - Epifix #7 applied today. A mesh Epifix was used, moistened with saline, covered with wound veil which was secured with steri strips. Mepilex dressing placed over wound veil. She may change the outer dry gauze or Mepilex dressing as needed. 100% of the product was used. Double layer Tubigrip for compression. Do not get the dressing wet, may shower using a shower boot. Encouraged increase protein intake to help with wound healing. 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 We will watch for increased bleeding with debridement. She recently fell and broke her tail bone. Instructed her to try not to sit for long periods of time and to lay on her side with 1-2 pillows between her knees to help keep her spine aligned. Follow up one week with a courtesy visit.
== END 2021-06-19 23:59 ==
LOC: WC 14:15
PROVIDERS: PCP Family Medicine Geriatric Medicine; Visit Provider Nurse Practitioner Family
DX: L97.822 Non-pressure chronic ulcer of other 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 (principal); L08.9 Local infection of the skin and subcutaneous tissue, unspecified; R60.0 Localized edema; S80.12XS Contusion of left lower leg, sequela; W19.XXXS Unspecified fall, sequela; D68.51 Activated protein C resistance; D62 Acute posthemorrhagic anemia; R53.81 Other malaise; E66.9 Obesity, unspecified; Z68.41 Body mass index [BMI] 40.0-44.9, adult; Z79.01 Long term (current) use of anticoagulants; Z79.899 Other long term (current) drug therapy
CPT/HCPCS: 15271; Q4186

== ENCOUNTER 2021-07-14 10:45 | Outpatient (RCR) | payer MEDICARE, OTHER, SELFPAY ==
[2021-06-20 00:14] VITALS: BP 115/68; PULSE 76; RESP 16; TEMP 35.6; BMI 40.8
[2021-06-30 14:09] VITALS: BP 125/63; PULSE 75; RESP 20; TEMP 36.6; BMI 40.8
--- NOTE | 2021-07-01 16:42 | PCM.WC.PN ---
History of Present Illness Date of Service: 06/30/21 Chief Complaint: Traumatic ulcer to the left anterolateral leg History of Wound: 71 YEAR OLD WOMAN PRESENTS WITH A TRAUMATIC INFECTED HEMATOMA LEFT ANTEROLATERAL LEG WITH ASSOCIATED SKIN NECROSIS THAT SHE SUSTAINED ON JANUARY 31, 2021 WHEN SHE FELL AT HOME. SHE IS ON ELIQUIS FOR FACTOR V DEFICIENCY. SHE WENT TO THE ED WHERE THE LACERATION WAS CLEANSED AND SUTURED CLOSED. X-RAY IN THE ED WAS NEGATIVE FOR FRACTURE OR DISLOCATION. SHE FOLLOWED UP WITH HER PCP WHO NOTED SOME SLIGHT WOUND SEPARATION AFTER REMOVING SOME SUTURES. THE LEG WAS WRAPPED WITH GAUZE AND A COMPRESSION NIA WRAP. SOME REDNESS WAS NOTED SUPERIORLY AND SHE WAS STARTED ON DOXYCYCLINE AND CLINDAMYCIN. ALSO SOME SKIN NECROSIS WAS SEEN MEDIALLY. Surgery on 02/18/21 for Surgical preparation left anterolateral leg with incision and drainage and evacuation traumatic infected hematoma and excisional debridement skin necrosis (156 cm2). Operative cultures were positive for Pseudomonas aeroginosa and Anaerobic cocci. She was treated with Levaquin. She wound benefit from a skin graft or an advanced wound care product to assist with wound closure. The patient is not interested in having any further surgery at this time. She has been approved for Epifix placental tissue to help with wound healing. Wound care - Epifix #8 applied today. Tubigrip for compression. She was transferred to TCU on 02/21/21. She was discharged from TCU on 03/14/21 with home health. Today she denies fevers and states her appetite is good. Progress of Wound: Improved Objective Data Objective Data Vital Signs: Vital Signs Temp Pulse Resp BP 97.8 F 75 20 H 125/63 H 06/30/21 14:09 06/30/21 14:09 06/30/21 14:09 06/30/21 14:09 Weight: 223 lb Body Mass Index (BMI) 40.8 Charges/Coding Procedures Integumentary 150xxx-152xx: 37495 Skin sub graft trnk/arm/leg Physical Exam Const alert and oriented x3 General Appearance: cooperative HEENT normocephalic Head and Scalp: atraumatic Eyes PERRL Resp normal respiratory effort Cardio regular rhythm GI non-tender Palpation: soft Extremity normal capillary refill Extremity Narrative: Left leg dependent edema Skin Wound Narrative: Left lateral leg ulcer is beefy pink and decreasing in size. Neuro CN's II-XII intact bilaterally Psych Appearance: grossly normal Debridement Note Debridement Note Wound debrided: lateral leg ulcer Laterality: Left Type of Debridement: Excisional debridement Anesthesia Used: 5% Lidocaine Gel Depth: Down to and including healthy tissue and in the subcutaneous layer Percentage of wound debrided: 100 Instrument Used: 5mm curette Tissue Removed: Subcutaneous tissue and slough Severity: Fat Layer Exposed Amount of bleeding with debridement: Mild Bleeding Controlled with: Pressure Patient tolerated procedure: Patient tolerated procedure well Post-Debridement Measurements and Additional Note: Post-Debridement Measurements/Treatment - Nurse 1 - General Ulcer Assessment Start: 06/30/21 14:09 Freq: Status: Active Protocol: MELIA Activity Type Activity Date Activity User E-Sign Co-Sign Detail Recorded Client Recorded Date Recorded By Document 06/30/21 14:09 DL [id number] 06/30/21 14:15 DL 06/30/21 14:09 WC - Today's Visit Information Type of service Follow-up Visit (Physician/CUSTOMS AND BORDER PROTECTION INSPECTOR ) Arrival Mode Ambulatory Transfer Assistance None Patient Identification Verified (Name & Yes ) Patient Requires Transmission-Based No Precautions Height and Weight Body Mass Index (BMI) 40.8 BMI Classification Obese Vital Signs Temperature (97.8 F-99.1 F) 97.8 F Temperature Source Temporal Pulse Rate (60-100) 75 Pulse Location Monitor Respiratory Rate (12-18) 20 H Respiratory rate source Observation Blood Pressure (90/60-120/80) 125/63 H Blood Pressure Mean (mm Hg) 83 Source Monitor History Since Last Visit- (Skip if this is Patient's initial visit) Have you changed medications since your No last visit? Any new allergies or adverse reactions No Had a fall/change in ADL's that may No increase risk of falls Signs or symptoms of abuse and/or No neglect since last visit Have you been in the hospital since your No last visit? Has dressing in place as prescribed Yes Has compression in place as prescribed Yes Has offloadiing in place as prescribed Yes Experienced any changes in pain level or No management Left Footwear Regular Shoe Right Footwear Regular Shoe Pain Scale: 0-10 Numeric Is Patient Pain Free? Yes ANTHONY Anderson Nurse 1 - General Ulcer Measurement Start: 06/30/21 14:09 Freq: Status: Active Protocol: Activity Type Activity Date Activity User E-Sign Co-Sign Detail Recorded Client Recorded Date Recorded By Document 06/30/21 14:09 [email or web address] [id number] 06/30/21 14:15 DL 06/30/21 14:09 Wound Center Nurse 1 #3- LLE LAT POST OP -Current Size (cm) - Length 2.3 -Current Size (cm) - Width 1.5 -Current Size (cm) - Depth 0.1 -Total Square Cm 3.45 -Photo Taken No -Exudate Amt Small -Exudate Type Serosanguineous -Wound Margin Distinct, Outline Attached -Granulation Amt Medium (34-66%) -Granulation Quality Red -Necrosis Amt Medium (34-66%) -Necrotic Tissue Type Adherent Slough -Structure Exposed N/A -Texture (Rubia-wound Skin Appearance) Scarring -Moisture (Rubia-wound Skin Appearance) No Abnormality -Color (Rubia-wound Skin Appearance) No Abnormality -Temperature (Rubia-wound Skin No Abnormality Appearance) (Pt Warm) -Tenderness on Palpation (Rubia-wound No Skin Appearance) -Ulcer Cleansing Wound Cleanser -Foul Odor after Cleansing No -Anesthetic Used 4% Lidocaine Solution WC - Nurse 2 - General Ulcer CM Notes Start: 06/30/21 14:09 Freq: Status: Active Protocol: Activity Type Activity Date Activity User E-Sign Co-Sign Detail Recorded Client Recorded Date Recorded By Document 06/30/21 14:27 MANDEEP [id number] 06/30/21 14:33 MANDEEP 06/30/21 14:27 Wound Center Nurse 2 -Time 14:28 -Correct Patient Yes -Correct Side, Site, Position Yes -Correct Procedure Yes -Procedure Performed Yes -Type of Procedure Debridement -Clinical Debridement Subcutaneous -Tissue Removed Subcutaneous -Post Debridement (cm) - Length 2 -Post Debridement (cm) - Width 1.4 -Post Debridement (cm) - Depth 0.1 -Total Square (Post) (cm) 2.8 -Area of Debridement (cm) - Length 2 -Area of Debridement (cm) - Width 1.4 -Total Square (Area) (cm) 2.8 -Tunneling No -Undermining/Tunneling No -Circular Undermining No -Wound/Ulcer Outcome Not Healed -Ulcer Cleansing Rinsed/ Irrigated with Saline -Foul Odor after Cleansing No -Bioengineered Tissue Yes -Type of Bioengineered Tissue Epifix -Expiration Date 03/20/26 -Product Lot Number [id number] -Percent Used 100 -Lot number of Saline Used [id number] -Bleeding Controlled with Pressure -Offloading No -Treatment Response Procedure Tolerated Well -Debridement - Subq, 1st 20sq cm No -Apply Skin Sub - 1st 25 sq cm - Legs 1 -Epifix (per sq cm) 4 Pain Scale: 0-10 Numeric Is Patient Pain Free? Yes WC - Nurse 3 - General Ulcer D/C NN Start: 06/30/21 14:09 Freq: Status: Active Protocol: Activity Type Activity Date Activity User E-Sign Co-Sign Detail Recorded Client Recorded Date Recorded By Document 06/30/21 14:35 MANDEEP [id number] 06/30/21 14:36 MANDEEP 06/30/21 14:35 Wound Care Nurse 3 #3- LLE LAT POST OP -Ulcer Cleansing Rinsed/ Irrigated with Saline -Foul Odor after Cleansing No -Primary Dressing Applied Mepilex Border -Mepilex Border 1 Left -Tubular Bandage Single Layer -Size of Tubigrip Used Size D -Size D ($) 0 Pain Scale: 0-10 Numeric Is Patient Pain Free? Yes WC - Visit Discharge Discharge Condition Stable Ambulatory Status Ambulatory, Walker Transportation Private Auto Medication Reconcilliation completed & Yes provided to patient/care provider Clinical Summary of Care Provided Yes Assessment/Plan Assessment/Plan (1) Ulcer of left lower extremity with fat layer exposed: CODE(S): L97.922 - Non-pressure 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 (2) Factor 5 Leiden mutation, heterozygous: CODE(S): D68.51 - Activated protein C resistance (3) Acute postoperative anemia due to expected blood loss: CODE(S): D62 - Acute posthemorrhagic anemia PLAN: Wound care - Epifix #7 applied today. Epifix was moistened with saline, covered with wound veil which was secured with steri strips. Mepilex dressing placed over wound veil. She may change the outer dry gauze or Mepilex dressing as needed. 100% of the product was used. Double layer Tubigrip for compression. Do not get the dressing wet, may shower using a shower boot. Encouraged increase protein intake to help with wound healing. 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 We will watch for increased bleeding with debridement. She recently fell and broke her tail bone. Instructed her to try not to sit for long periods of time and to lay on her side with 1-2 pillows between her knees to help keep her spine aligned. Follow up one week.
[2021-07-07 11:04] VITALS: BP 139/83; PULSE 73; RESP 16; TEMP 36.3; BMI 40.8
--- NOTE | 2021-07-07 12:36 | PN.PCM_ITS ---
History of Present Illness Date of Service: 07/07/21 Chief Complaint: Traumatic ulcer to the left anterolateral leg History of Wound: 71 YEAR OLD WOMAN PRESENTS WITH A TRAUMATIC INFECTED HEMATOMA LEFT ANTEROLATERAL LEG WITH ASSOCIATED SKIN NECROSIS THAT SHE SUSTAINED ON JANUARY 31, 2021 WHEN SHE FELL AT HOME. SHE IS ON ELIQUIS FOR FACTOR V DEFICIENCY. SHE WENT TO THE ED WHERE THE LACERATION WAS CLEANSED AND SUTURED CLOSED. X-RAY IN THE ED WAS NEGATIVE FOR FRACTURE OR DISLOCATION. SHE FOLLOWED UP WITH HER PCP WHO NOTED SOME SLIGHT WOUND SEPARATION AFTER REMOVING SOME SUTURES. THE LEG WAS WRAPPED WITH GAUZE AND A COMPRESSION NIA WRAP. SOME REDNESS WAS NOTED SUPERIORLY AND SHE WAS STARTED ON DOXYCYCLINE AND CLINDAMYCIN. ALSO SOME SKIN NECROSIS WAS SEEN MEDIALLY. Surgery on 02/18/21 for Surgical preparation left anterolateral leg with incision and drainage and evacuation traumatic infected hematoma and excisional debridement skin necrosis (156 cm2). Operative cultures were positive for Pseudomonas aeroginosa and Anaerobic cocci. She was treated with Levaquin. She wound benefit from a skin graft or an advanced wound care product to assist with wound closure. The patient is not interested in having any further surgery at this time. She has been approved for Epifix placental tissue to help with wound healing. Wound care - Epifix #9 applied today. Tubigrip for compression. She was transferred to TCU on 02/21/21. She was discharged from TCU on 03/14/21 with home health. Today she denies fevers and states her appetite is good. Progress of Wound: Improved Objective Data Objective Data Vital Signs: Vital Signs Temp Pulse Resp BP 97.3 F L 73 16 139/83 H 07/07/21 11:04 07/07/21 11:04 07/07/21 11:04 07/07/21 11:04 Weight: 223 lb Body Mass Index (BMI) 40.8 Charges/Coding Procedures Integumentary 150xxx-152xx: 22194 Skin sub graft trnk/arm/leg Physical Exam Const alert and oriented x3 General Appearance: cooperative HEENT normocephalic Lymph Lymphatic: no lymphedema noted Resp normal respiratory effort Cardio regular rate GI non-tender Palpation: soft Extremity normal capillary refill Skin Wound Narrative: Left anterolateral leg ulcer is beefy pink and smaller in size. Neuro CN's II-XII intact bilaterally Psych Appearance: grossly normal Debridement Note Debridement Note Wound debrided: anterolateral leg ulcer Laterality: Left Type of Debridement: Excisional debridement Anesthesia Used: 5% Lidocaine Gel Depth: Down to and including healthy tissue and in the subcutaneous layer Percentage of wound debrided: 100 Instrument Used: 5mm curette Tissue Removed: Subcutaneous tissue and slough Severity: Fat Layer Exposed Amount of bleeding with debridement: Mild Bleeding Controlled with: Pressure Patient tolerated procedure: Patient tolerated procedure well Post-Debridement Measurements and Additional Note: Post-Debridement Measurements/Treatment - Nurse 1 - General Ulcer Assessment Start: 06/30/21 14:09 Freq: Status: Active Protocol: [id number] NorthKRISTEN Activity Type Activity Date Activity User E-Sign Co-Sign Detail Recorded Client Recorded Date Recorded By Document 06/30/21 14:09 DL [id number] 06/30/21 14:15 DL Document 07/07/21 11:04 ML [id number] 07/07/21 11:06 ML 06/30/21 07/07/21 14:09 11:04 - Today's Visit Information Type of service Follow-up Visit Follow-up Visit (Physician/SEEING EYE DOG TRAINER (Physician/SEEING EYE DOG TRAINER ) ) Arrival Mode Ambulatory Ambulatory Transfer Assistance None None Patient Identification Verified (Name & Yes Yes ) Patient Requires Transmission-Based No No Precautions Safety Precautions NA Height and Weight Body Mass Index (BMI) 40.8 40.8 BMI Classification Obese Obese Vital Signs Temperature (97.8 F-99.1 F) 97.8 F 97.3 F L Temperature Source Temporal Temporal Pulse Rate (60-100) 75 73 Pulse Location Monitor Monitor Respiratory Rate (12-18) 20 H 16 Respiratory rate source Observation Observation Blood Pressure (90/60-120/80) 125/63 H 139/83 H Blood Pressure Mean (mm Hg) 83 101 Source Monitor Monitor Position Sitting Blood Pressure Location Left Arm History Since Last Visit- (Skip if this is Patient's initial visit) Have you changed medications since your No No last visit? Any new allergies or adverse reactions No No Had a fall/change in ADL's that may No No increase risk of falls Signs or symptoms of abuse and/or No No neglect since last visit Have you been in the hospital since your No No last visit? Has dressing in place as prescribed Yes Yes Has compression in place as prescribed Yes Yes Has offloadiing in place as prescribed Yes N/A Experienced any changes in pain level or No No management Left Footwear Regular Shoe Regular Shoe Right Footwear Regular Shoe Regular Shoe Pain Scale: 0-10 Numeric Is Patient Pain Free? Yes Yes - Nurse 1 - General Ulcer Measurement Start: 06/30/21 14:09 Freq: Status: Active Protocol: Activity Type Activity Date Activity User E-Sign Co-Sign Detail Recorded Client Recorded Date Recorded By Document 06/30/21 14:09 DL [id number] 06/30/21 14:15 DL Document 07/07/21 11:04 ML [id number] 07/07/21 11:06 ML 06/30/21 07/07/21 14:09 11:04 Wound Center Nurse 1 #3- LLE LAT POST OP -Current Size (cm) - Length 2.3 1 -Current Size (cm) - Width 1.5 0.8 -Current Size (cm) - Depth 0.1 0.1 -Total Square Cm 3.45 0.8 -Photo Taken No -Epithelialization Medium 34-66% -Exudate Amt Small Medium -Exudate Type Serosanguineous Serosanguineous -Wound Margin Distinct, Distinct, Outline Outline Attached Attached -Granulation Amt Medium (34-66%) Medium (34-66%) -Granulation Quality Red -Slough/Fibrin Yes -Necrosis Amt Medium (34-66%) Small (1-33%) -Necrotic Tissue Type Adherent Slough Adherent Slough -Structure Exposed N/A -Texture (Rubia-wound Skin Appearance) Scarring Assessed -Moisture (Rubia-wound Skin Appearance) No Abnormality Assessed -Color (Rubia-wound Skin Appearance) No Abnormality Assessed -Temperature (Rubia-wound Skin No Abnormality No Abnormality Appearance) (Pt Warm) (Pt Warm) -Tenderness on Palpation (Rubia-wound No No Skin Appearance) -Ulcer Cleansing Wound Cleanser Soap and Water -Foul Odor after Cleansing No No -Anesthetic Used 4% Lidocaine 5% Lidocaine Solution Gel WC - Nurse 2 - General Ulcer CM Notes Start: 06/30/21 14:09 Freq: Status: Active Protocol: Activity Type Activity Date Activity User E-Sign Co-Sign Detail Recorded Client Recorded Date Recorded By Document 06/30/21 14:27 [id number] 06/30/21 14:33 Document 07/07/21 11:48 [id number] 07/07/21 11:55 06/30/21 07/07/21 14:27 11:48 Wound Center Nurse 2 #3- LLE LAT POST OP -Time 14:28 11:48 -Correct Patient Yes Yes -Correct Side, Site, Position Yes Yes -Correct Procedure Yes Yes -Procedure Performed Yes Yes -Type of Procedure Debridement Debridement -Clinical Debridement Subcutaneous Subcutaneous -Tissue Removed Subcutaneous Subcutaneous -Post Debridement (cm) - Length 2 1.7 -Post Debridement (cm) - Width 1.4 1.3 -Post Debridement (cm) - Depth 0.1 0.1 -Total Square (Post) (cm) 2.8 2.21 -Area of Debridement (cm) - Length 2 1.7 -Area of Debridement (cm) - Width 1.4 1.3 -Total Square (Area) (cm) 2.8 2.21 -Tunneling No No -Undermining/Tunneling No No -Circular Undermining No No -Wound/Ulcer Outcome Not Healed Not Healed -Ulcer Cleansing Rinsed/ Rinsed/ Irrigated with Irrigated with Saline Saline -Foul Odor after Cleansing No No -Bioengineered Tissue Yes Yes -Type of Bioengineered Tissue Epifix Epifix -Expiration Date 03/20/26 01/18/26 -Product Lot Number [id number] -Percent Used 100 100 -Lot number of Saline Used [id number] -Bleeding Controlled with Pressure Pressure -Offloading No No -Treatment Response Procedure Procedure Tolerated Well Tolerated Well -Debridement - Subq, 1st 20sq cm No No -Apply Skin Sub - 1st 25 sq cm - Legs 1 1 -Epifix (per sq cm) 4 4 Pain Scale: 0-10 Numeric Is Patient Pain Free? Yes Yes - Nurse 3 - General Ulcer D/C NN Start: 06/30/21 14:09 Freq: Status: Active Protocol: Activity Type Activity Date Activity User E-Sign Co-Sign Detail Recorded Client Recorded Date Recorded By Document 06/30/21 14:35 JF [id number] 06/30/21 14:36 JF Document 07/07/21 12:02 ML [id number] 07/07/21 12:03 ML 06/30/21 07/07/21 14:35 12:02 Wound Care Nurse 3 #3- LLE LAT POST OP -Ulcer Cleansing Rinsed/ Irrigated with Saline -Foul Odor after Cleansing No No -Primary Dressing Applied Mepilex Border Mepilex Border -Mepilex Border 1 1 Left -Tubular Bandage Single Layer Double Layer -Size of Tubigrip Used Size D Size E -Size D ($) 0 -Size E ($) 2 Pain Scale: 0-10 Numeric Is Patient Pain Free? Yes WC - Visit Discharge Discharge Condition Stable Stable Ambulatory Status Ambulatory, Ambulatory Walker Transportation Private Auto Private Auto Medication Reconcilliation completed & Yes No provided to patient/care provider Clinical Summary of Care Provided Yes Yes Assessment/Plan Assessment/Plan (1) Ulcer of left lower extremity with fat layer exposed: CODE(S): L97.922 - Non-pressure 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 (2) Factor 5 Leiden mutation, heterozygous: CODE(S): D68.51 - Activated protein C resistance PLAN: Wound care - Epifix #9 applied today. Epifix was moistened with saline, covered with wound veil which was secured with steri strips. Mepilex dressing placed over wound veil. She may change the outer dry gauze or Mepilex dressing as needed. 100% of the product was used. Double layer Tubigrip for compression. Do not get the dressing wet, may shower using a shower boot. Encouraged increase protein intake to help with wound healing. 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 We will watch for increased bleeding with debridement. She recently fell and broke her tail bone. Instructed her to try not to sit for long periods of time and to lay on her side with 1-2 pillows between her knees to help keep her spine aligned. Follow up one week.
[2021-07-14 10:41] VITALS: BP 130/69; PULSE 75; TEMP 35.9; BMI 40.8
--- NOTE | 2021-07-14 13:08 | PN.PCM_ITS ---
History of Present Illness Date of Service: 07/14/21 Chief Complaint: Traumatic ulcer to the left anterolateral leg History of Wound: 71 YEAR OLD WOMAN PRESENTS WITH A TRAUMATIC INFECTED HEMATOMA LEFT ANTEROLATERAL LEG WITH ASSOCIATED SKIN NECROSIS THAT SHE SUSTAINED ON JANUARY 31, 2021 WHEN SHE FELL AT HOME. SHE IS ON ELIQUIS FOR FACTOR V DEFICIENCY. SHE WENT TO THE ED WHERE THE LACERATION WAS CLEANSED AND SUTURED CLOSED. X-RAY IN THE ED WAS NEGATIVE FOR FRACTURE OR DISLOCATION. SHE FOLLOWED UP WITH HER PCP WHO NOTED SOME SLIGHT WOUND SEPARATION AFTER REMOVING SOME SUTURES. THE LEG WAS WRAPPED WITH GAUZE AND A COMPRESSION NIA WRAP. SOME REDNESS WAS NOTED SUPERIORLY AND SHE WAS STARTED ON DOXYCYCLINE AND CLINDAMYCIN. ALSO SOME SKIN NECROSIS WAS SEEN MEDIALLY. Surgery on 02/18/21 for Surgical preparation left anterolateral leg with incision and drainage and evacuation traumatic infected hematoma and excisional debridement skin necrosis (156 cm2). Operative cultures were positive for Pseudomonas aeroginosa and Anaerobic cocci. She was treated with Levaquin. She wound benefit from a skin graft or an advanced wound care product to assist with wound closure. The patient is not interested in having any further surgery at this time. She has been approved for Epifix placental tissue to help with wound healing. Wound care - Epifix #10 applied today. Tubigrip for compression. She was transferred to TCU on 02/21/21. She was discharged from TCU on 03/14/21 with home health. Today she denies fevers and states her appetite is good. Progress of Wound: Improved Objective Data Objective Data Vital Signs: Vital Signs Temp Pulse Resp BP 96.7 F L 75 16 130/69 H 07/14/21 10:41 07/14/21 10:41 07/07/21 11:04 07/14/21 10:41 Weight: 223 lb Body Mass Index (BMI) 40.8 Charges/Coding Procedures Integumentary 150xxx-152xx: 02367 Skin sub graft trnk/arm/leg Physical Exam Const alert and oriented x3 General Appearance: cooperative HEENT normocephalic Head and Scalp: atraumatic Resp normal respiratory effort Cardio regular rate GI non-tender Palpation: soft Extremity normal capillary refill Extremity Narrative: +1 to +2 edema bilateral lower extremities. General Extremity: edema Skin Wound Narrative: Left anterior lateral leg ulcer is improving in size. Neuro CN's II-XII intact bilaterally Psych Appearance: grossly normal Debridement Note Debridement Note Wound debrided: Anterior lateral leg ulcer Laterality: Left Type of Debridement: Excisional debridement Depth: Down to and including healthy tissue and in the subcutaneous layer Percentage of wound debrided: 100 Instrument Used: 3mm curette Tissue Removed: Subcutaneous tissue and slough Severity: Fat Layer Exposed Amount of bleeding with debridement: Mild Bleeding Controlled with: Compression and gauze Patient tolerated procedure: Patient tolerated procedure well Post-Debridement Measurements and Additional Note: Post-Debridement Measurements/Treatment - Nurse 1 - General Ulcer Assessment Start: 06/30/21 14:09 Freq: Status: Active Protocol: ANTHONY.MemonicKRISTEN Activity Type Activity Date Activity User E-Sign Co-Sign Detail Recorded Client Recorded Date Recorded By Document 06/30/21 14:09 DL [id number] 06/30/21 14:15 DL Document 07/07/21 11:04 ML [id number] 07/07/21 11:06 ML Document 07/14/21 10:41 KR [id number] 07/14/21 10:46 KR 06/30/21 07/07/21 07/14/21 14:09 11:04 10:41 - Today's Visit Information Type of service Follow-up Visit Follow-up Visit Follow-up Visit (Physician/AGRISCIENCE TEACHER (Physician/AGRISCIENCE TEACHER (Physician/AGRISCIENCE TEACHER ) ) ) Arrival Mode Ambulatory Ambulatory Ambulatory Transfer Assistance None None Patient Identification Verified (Name & Yes Yes Yes ) Patient Requires Transmission-Based No No Precautions Safety Precautions NA Height and Weight Body Mass Index (BMI) 40.8 40.8 40.8 BMI Classification Obese Obese Obese Vital Signs Temperature (97.8 F-99.1 F) 97.8 F 97.3 F L 96.7 F L Temperature Source Temporal Temporal Temporal Pulse Rate (60-100) 75 73 75 Pulse Location Monitor Monitor Monitor Respiratory Rate (12-18) 20 H 16 Respiratory rate source Observation Observation Blood Pressure (90/60-120/80) 125/63 H 139/83 H 130/69 H Blood Pressure Mean (mm Hg) 83 101 89 Source Monitor Monitor Monitor Position Sitting Sitting Blood Pressure Location Left Arm Left Arm History Since Last Visit- (Skip if this is Patient's initial visit) Have you changed medications since your No No No last visit? Any new allergies or adverse reactions No No No Had a fall/change in ADL's that may No No No increase risk of falls Signs or symptoms of abuse and/or No No No neglect since last visit Have you been in the hospital since your No No No last visit? Has dressing in place as prescribed Yes Yes Yes Has compression in place as prescribed Yes Yes N/A Has offloadiing in place as prescribed Yes N/A N/A Experienced any changes in pain level or No No No management Left Footwear Regular Shoe Regular Shoe Regular Shoe Right Footwear Regular Shoe Regular Shoe Regular Shoe Pain Scale: 0-10 Numeric Is Patient Pain Free? Yes Yes Yes WC - Nurse 1 - General Ulcer Measurement Start: 06/30/21 14:09 Freq: Status: Active Protocol: Activity Type Activity Date Activity User E-Sign Co-Sign Detail Recorded Client Recorded Date Recorded By Document 06/30/21 14:09 DL [id number] 06/30/21 14:15 DL Document 07/07/21 11:04 ML [id number] 07/07/21 11:06 ML Document 07/14/21 10:41 KR [id number] 07/14/21 10:46 KR 06/30/21 07/07/21 07/14/21 14:09 11:04 10:41 Wound Center Nurse 1 #3- LLE LAT POST OP -Current Size (cm) - Length 2.3 1 1.5 -Current Size (cm) - Width 1.5 0.8 0.8 -Current Size (cm) - Depth 0.1 0.1 0.1 -Total Square Cm 3.45 0.8 1.20 -Photo Taken No -Epithelialization Medium 34-66% -Exudate Amt Small Medium Medium -Exudate Type Serosanguineous Serosanguineous Serosanguineous -Wound Margin Distinct, Distinct, Distinct, Outline Outline Outline Attached Attached Attached -Granulation Amt Medium (34-66%) Medium (34-66%) Medium (34-66%) -Granulation Quality Red Red -Slough/Fibrin Yes -Necrosis Amt Medium (34-66%) Small (1-33%) Medium (34-66%) -Necrotic Tissue Type Adherent Slough Adherent Slough Adherent Slough -Structure Exposed N/A -Texture (Rubia-wound Skin Appearance) Scarring Assessed Assessed, Scarring -Moisture (Rubia-wound Skin Appearance) No Abnormality Assessed No Abnormality, Assessed -Color (Rubia-wound Skin Appearance) No Abnormality Assessed No Abnormality, Assessed -Temperature (Rubia-wound Skin No Abnormality No Abnormality No Abnormality Appearance) (Pt Warm) (Pt Warm) (Pt Warm) -Tenderness on Palpation (Rubia-wound No No No Skin Appearance) -Ulcer Cleansing Wound Cleanser Soap and Water Soap and Water -Foul Odor after Cleansing No No No -Anesthetic Used 4% Lidocaine 5% Lidocaine 5% Lidocaine Solution Gel Gel Left Calf (cm) 39.8 Left Ankle (cm) 27 WC - Nurse 2 - General Ulcer CM Notes Start: 06/30/21 14:09 Freq: Status: Active Protocol: Activity Type Activity Date Activity User E-Sign Co-Sign Detail Recorded Client Recorded Date Recorded By Document 06/30/21 14:27 [id number] 06/30/21 14:33 Document 07/07/21 11:48 [id number] 07/07/21 11:55 Document 07/14/21 11:03 [id number] 07/14/21 11:09 06/30/21 07/07/21 07/14/21 14:27 11:48 11:03 Wound Center Nurse 2 #3- LLE LAT POST OP -Time 14:28 11:48 11:03 -Correct Patient Yes Yes Yes -Correct Side, Site, Position Yes Yes Yes -Correct Procedure Yes Yes Yes -Procedure Performed Yes Yes Yes -Type of Procedure Debridement Debridement Debridement -Clinical Debridement Subcutaneous Subcutaneous Subcutaneous -Tissue Removed Subcutaneous Subcutaneous Subcutaneous -Post Debridement (cm) - Length 2 1.7 1.6 -Post Debridement (cm) - Width 1.4 1.3 1.3 -Post Debridement (cm) - Depth 0.1 0.1 0.1 -Total Square (Post) (cm) 2.8 2.21 2.08 -Area of Debridement (cm) - Length 2 1.7 1.6 -Area of Debridement (cm) - Width 1.4 1.3 1.3 -Total Square (Area) (cm) 2.8 2.21 2.08 -Tunneling No No No -Undermining/Tunneling No No No -Circular Undermining No No No -Wound/Ulcer Outcome Not Healed Not Healed Not Healed -Ulcer Cleansing Rinsed/ Rinsed/ Rinsed/ Irrigated with Irrigated with Irrigated with Saline Saline Saline -Foul Odor after Cleansing No No Yes, Due to Product Use -Bioengineered Tissue Yes Yes Yes -Type of Bioengineered Tissue Epifix Epifix Epifix 18mm Disc -Expiration Date 03/20/26 01/18/26 03/20/26 -Product Lot Number [id number] -Percent Used 100 100 100 -Lot number of Saline Used [id number] -Bleeding Controlled with Pressure Pressure Pressure -Offloading No No No -Treatment Response Procedure Procedure Procedure Tolerated Well Tolerated Well Tolerated Well -Debridement - Subq, 1st 20sq cm No No No -Apply Skin Sub - 1st 25 sq cm - Legs 1 1 1 -Epifix (per sq cm) 4 4 -Epifix 18mm Disc 3 Pain Scale: 0-10 Numeric Is Patient Pain Free? Yes Yes Yes - Nurse 3 - General Ulcer D/C NN Start: 06/30/21 14:09 Freq: Status: Active Protocol: Activity Type Activity Date Activity User E-Sign Co-Sign Detail Recorded Client Recorded Date Recorded By Document 06/30/21 14:35 JF [id number] 06/30/21 14:36 JF Document 07/07/21 12:02 ML [id number] 07/07/21 12:03 ML Document 07/14/21 11:23 KR [id number] 07/14/21 11:24 KR 06/30/21 07/07/21 07/14/21 14:35 12:02 11:23 Wound Care Nurse 3 #3- LLE LAT POST OP -Ulcer Cleansing Rinsed/ Irrigated with Saline -Foul Odor after Cleansing No No -Primary Dressing Applied Mepilex Border Mepilex Border Mepilex Border -Mepilex Border 1 1 1 Left -Tubular Bandage Single Layer Double Layer -Size of Tubigrip Used Size D Size E -Size D ($) 0 -Size E ($) 2 Pain Scale: 0-10 Numeric Is Patient Pain Free? Yes Yes - Visit Discharge Discharge Condition Stable Stable Stable Ambulatory Status Ambulatory, Ambulatory Ambulatory,Cane Walker Transportation Private Auto Private Auto Private Auto Accompanied by self Medication Reconcilliation completed & Yes No provided to patient/care provider Clinical Summary of Care Provided Yes Yes Assessment/Plan Assessment/Plan (1) Ulcer of left lower extremity with fat layer exposed: CODE(S): L97.922 - Non-pressure 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 (2) Factor 5 Leiden mutation, heterozygous: CODE(S): D68.51 - Activated protein C resistance (3) Traumatic hematoma of left lower leg with infection: CODE(S): S80.12XA - Contusion of left lower leg, initial encounter; L08.9 - Local infection of the skin and subcutaneous tissue, unspecified QUALIFIERS: Encounter type: initial encounter Qualified Code(s): S80.12XA - Contusion of left lower leg, initial encounter; L08.9 - Local infection of the skin and subcutaneous tissue, unspecified (4) Debility: CODE(S): R53.81 - Other malaise PLAN: Wound care - Epifix #10 applied today. Epifix was moistened with saline, covered with wound veil which was secured with steri strips. Mepilex dressing placed over wound veil. She may change the outer dry gauze or Mepilex dressing as needed. 100% of the product was used. Double layer Tubigrip for compression. Do not get the dressing wet, may shower using a shower boot. Encouraged increase protein intake to help with wound healing. 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 We will watch for increased bleeding with debridement. Follow up one week.
== END 2021-07-20 23:59 ==
LOC: WC 10:45
PROVIDERS: PCP Family Medicine Geriatric Medicine; Visit Provider Nurse Practitioner Family
DX: L97.822 Non-pressure chronic ulcer of other 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 (principal); S81.812S Laceration without foreign body, left lower leg, sequela; W19.XXXS Unspecified fall, sequela; D68.51 Activated protein C resistance; E66.9 Obesity, unspecified; Z68.41 Body mass index [BMI] 40.0-44.9, adult; Z79.01 Long term (current) use of anticoagulants; Z79.899 Other long term (current) drug therapy
CPT/HCPCS: 15271; Q4186

== ENCOUNTER 2021-08-04 09:30 | Outpatient (RCR) | payer MEDICARE, OTHER, SELFPAY ==
[2021-07-21 00:10] VITALS: BP 130/69; PULSE 75; RESP 16; TEMP 35.9; BMI 40.8
[2021-07-21 13:38] VITALS: BP 116/57; PULSE 89; TEMP 35.8; BMI 40.8
--- NOTE | 2021-07-21 14:36 | PN.PCM_ITS ---
History of Present Illness Date of Service: 07/21/21 Chief Complaint: Traumatic ulcer to the left anterolateral leg History of Wound: 71 YEAR OLD WOMAN PRESENTS WITH A TRAUMATIC INFECTED HEMATOMA LEFT ANTEROLATERAL LEG WITH ASSOCIATED SKIN NECROSIS THAT SHE SUSTAINED ON JANUARY 31, 2021 WHEN SHE FELL AT HOME. SHE IS ON ELIQUIS FOR FACTOR V DEFICIENCY. SHE WENT TO THE ED WHERE THE LACERATION WAS CLEANSED AND SUTURED CLOSED. X-RAY IN THE ED WAS NEGATIVE FOR FRACTURE OR DISLOCATION. SHE FOLLOWED UP WITH HER PCP WHO NOTED SOME SLIGHT WOUND SEPARATION AFTER REMOVING SOME SUTURES. THE LEG WAS WRAPPED WITH GAUZE AND A COMPRESSION NIA WRAP. SOME REDNESS WAS NOTED SUPERIORLY AND SHE WAS STARTED ON DOXYCYCLINE AND CLINDAMYCIN. ALSO SOME SKIN NECROSIS WAS SEEN MEDIALLY. Surgery on 02/18/21 for Surgical preparation left anterolateral leg with incision and drainage and evacuation traumatic infected hematoma and excisional debridement skin necrosis (156 cm2). Operative cultures were positive for Pseudomonas aeroginosa and Anaerobic cocci. She was treated with Levaquin. She wound benefit from a skin graft or an advanced wound care product to assist with wound closure. The patient is not interested in having any further surgery at this time. She has been approved for Epifix placental tissue to help with wound healing. Wound care - The last Epifix was applied today. Tubigrip for compression. She was transferred to TCU on 02/21/21. She was discharged from TCU on 03/14/21 with home health. Today she denies fevers and states her appetite is good. Progress of Wound: Improved. Objective Data Objective Data Vital Signs: Vital Signs Temp Pulse Resp BP 96.5 F L 89 16 116/57 L 07/21/21 13:38 07/21/21 13:38 07/21/21 00:10 07/21/21 13:38 Weight: 223 lb Body Mass Index (BMI) 40.8 Charges/Coding Procedures Integumentary 150xxx-152xx: 21990 Skin sub graft trnk/arm/leg Physical Exam Const alert and oriented x3 General Appearance: cooperative HEENT normocephalic Eyes PERRL Lymph Lymphatic: no lymphedema noted Resp normal respiratory effort Cardio regular rate GI Palpation: soft Extremity normal capillary refill Skin Wound Narrative: Left leg ulcer is improving. It is beefy pink and much smaller this week. Neuro CN's II-XII intact bilaterally Psych Appearance: grossly normal Debridement Note Debridement Note Wound debrided: leg ulcer Laterality: Left Type of Debridement: Excisional debridement Anesthesia Used: 5% Lidocaine Gel Depth: Down to and including healthy tissue and in the subcutaneous layer Percentage of wound debrided: 100 Instrument Used: 3mm curette Tissue Removed: Subcutaneous tissue and slough Severity: Fat Layer Exposed Bleeding Controlled with: Pressure and Compression and gauze Patient tolerated procedure: Patient tolerated procedure well Post-Debridement Measurements and Additional Note: Post-Debridement Measurements/Treatment - Nurse 1 - General Ulcer Assessment Start: 07/21/21 13:38 Freq: Status: Active Protocol: MELIA Activity Type Activity Date Activity User E-Sign Co-Sign Detail Recorded Client Recorded Date Recorded By Document 07/21/21 13:38 RADHA [id number] 07/21/21 13:39 RADHA 07/21/21 13:38 WC - Today's Visit Information Type of service Follow-up Visit (Physician/HUMAN RESOURCES COORDINATOR ) Arrival Mode Ambulatory,Cane Patient Identification Verified (Name & Yes ) Height and Weight Body Mass Index (BMI) 40.8 BMI Classification Obese Vital Signs Temperature (97.8 F-99.1 F) 96.5 F L Temperature Source Temporal Pulse Rate (60-100) 89 Pulse Location Monitor Blood Pressure (90/60-120/80) 116/57 L Blood Pressure Mean (mm Hg) 76 Source Monitor Position Semi-Fowlers Blood Pressure Location Right Arm History Since Last Visit- (Skip if this is Patient's initial visit) Have you changed medications since your No last visit? Any new allergies or adverse reactions No Had a fall/change in ADL's that may No increase risk of falls Signs or symptoms of abuse and/or No neglect since last visit Have you been in the hospital since your No last visit? Has dressing in place as prescribed Yes Has compression in place as prescribed N/A Has offloadiing in place as prescribed N/A Experienced any changes in pain level or No management Left Footwear Regular Shoe Right Footwear Regular Shoe Pain Scale: 0-10 Numeric Is Patient Pain Free? Yes - Nurse 1 - General Ulcer Measurement Start: 07/21/21 13:38 Freq: Status: Active Protocol: Activity Type Activity Date Activity User E-Sign Co-Sign Detail Recorded Client Recorded Date Recorded By Document 07/21/21 13:38 RADHA [id number] 07/21/21 13:39 KR 07/21/21 13:38 Wound Center Nurse 1 #3- LLE LAT POST OP -Current Size (cm) - Length 1.5 -Current Size (cm) - Width 1 -Current Size (cm) - Depth 0.1 -Total Square Cm 1.5 -Exudate Amt Small -Exudate Type Yellow/Green -Wound Margin Distinct, Outline Attached -Granulation Amt Medium (34-66%) -Granulation Quality Red -Necrosis Amt Medium (34-66%) -Necrotic Tissue Type Adherent Slough -Texture (Rubia-wound Skin Appearance) Assessed, Scarring -Moisture (Rubia-wound Skin Appearance) No Abnormality, Assessed -Color (Rubia-wound Skin Appearance) No Abnormality, Assessed -Temperature (Rubia-wound Skin No Abnormality Appearance) (Pt Warm) -Tenderness on Palpation (Rubia-wound No Skin Appearance) -Ulcer Cleansing Rinsed/ Irrigated with Saline -Foul Odor after Cleansing No -Anesthetic Used 5% Lidocaine Gel WC - Nurse 2 - General Ulcer CM Notes Start: 07/21/21 13:38 Freq: Status: Active Protocol: Activity Type Activity Date Activity User E-Sign Co-Sign Detail Recorded Client Recorded Date Recorded By Document 07/21/21 13:58 [id number] 07/21/21 14:06 MANDEEP 07/21/21 13:58 Wound Center Nurse 2 -Time 13:58 -Correct Patient Yes -Correct Side, Site, Position Yes -Correct Procedure Yes -Procedure Performed Yes -Type of Procedure Debridement -Clinical Debridement Subcutaneous -Tissue Removed Subcutaneous -Post Debridement (cm) - Length 1.5 -Post Debridement (cm) - Width 0.8 -Post Debridement (cm) - Depth 0.1 -Total Square (Post) (cm) 1.20 -Area of Debridement (cm) - Length 1.5 -Area of Debridement (cm) - Width 0.8 -Total Square (Area) (cm) 1.20 -Tunneling No -Undermining/Tunneling No -Circular Undermining No -Wound/Ulcer Outcome Not Healed -Ulcer Cleansing Rinsed/ Irrigated with Saline -Foul Odor after Cleansing No -Bioengineered Tissue No -Expiration Date 03/20/26 -Product Lot Number [id number] -Percent Used 100 -Lot number of Saline Used [id number] -Bleeding Controlled with Pressure -Offloading No -Treatment Response Procedure Tolerated Well -Debridement - Subq, 1st 20sq cm No -Apply Skin Sub - 1st 25 sq cm - Legs 1 -Epifix 18mm Disc 3 Pain Scale: 0-10 Numeric Is Patient Pain Free? Yes Assessment/Plan Assessment/Plan (1) Ulcer of left lower extremity with fat layer exposed: CODE(S): L97.922 - Non-pressure 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 (2) Factor 5 Leiden mutation, heterozygous: CODE(S): D68.51 - Activated protein C resistance (3) Traumatic hematoma of left lower leg with infection: CODE(S): S80.12XA - Contusion of left lower leg, initial encounter; L08.9 - Local infection of the skin and subcutaneous tissue, unspecified QUALIFIERS: Encounter type: initial encounter Qualified Code(s): S80.12XA - Contusion of left lower leg, initial encounter; L08.9 - Local infection of the skin and subcutaneous tissue, unspecified (4) Debility: CODE(S): R53.81 - Other malaise PLAN: Wound care - The last Epifix was applied today. Epifix was moistened with saline, covered with wound veil which was secured with steri strips. Mepilex dressing placed over wound veil. She may change the outer dry gauze or Mepilex dressing as needed. 100% of the product was used. She has shown significant improvement in her healing using the advanced wound healing product, Epifix. Double layer Tubigrip for compression. Do not get the dressing wet, may shower using a shower boot. Encouraged increase protein intake to help with wound healing. 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 We will watch for increased bleeding with debridement. Follow up one week.
[2021-07-28 13:51] VITALS: BP 116/60; PULSE 77; RESP 16; TEMP 35.8; BMI 40.8
--- NOTE | 2021-07-28 14:38 | PN.PCM_ITS ---
History of Present Illness Date of Service: 07/28/21 Chief Complaint: Traumatic ulcer to the left anterolateral leg History of Wound: 71 YEAR OLD WOMAN PRESENTS WITH A TRAUMATIC INFECTED HEMATOMA LEFT ANTEROLATERAL LEG WITH ASSOCIATED SKIN NECROSIS THAT SHE SUSTAINED ON JANUARY 31, 2021 WHEN SHE FELL AT HOME. SHE IS ON ELIQUIS FOR FACTOR V DEFICIENCY. SHE WENT TO THE ED WHERE THE LACERATION WAS CLEANSED AND SUTURED CLOSED. X-RAY IN THE ED WAS NEGATIVE FOR FRACTURE OR DISLOCATION. SHE FOLLOWED UP WITH HER PCP WHO NOTED SOME SLIGHT WOUND SEPARATION AFTER REMOVING SOME SUTURES. THE LEG WAS WRAPPED WITH GAUZE AND A COMPRESSION NIA WRAP. SOME REDNESS WAS NOTED SUPERIORLY AND SHE WAS STARTED ON DOXYCYCLINE AND CLINDAMYCIN. ALSO SOME SKIN NECROSIS WAS SEEN MEDIALLY. Surgery on 02/18/21 for Surgical preparation left anterolateral leg with incision and drainage and evacuation traumatic infected hematoma and excisional debridement skin necrosis (156 cm2). Operative cultures were positive for Pseudomonas aeroginosa and Anaerobic cocci. She was treated with Levaquin. She wound benefit from a skin graft or an advanced wound care product to assist with wound closure. The patient is not interested in having any further surgery at this time. She has been approved for Epifix placental tissue to help with wound healing. Wound care - She has completed her Epifix series and has much improvement in her left leg ulcer. Wound care will be collagen hydrogel covered with Mepilex dressing 3 times per week. Tubigrip for compression. She was transferred to TCU on 02/21/21. She was discharged from TCU on 03/14/21 with home health. Today she denies fevers and states her appetite is good. Progress of Wound: Much improvement. Objective Data Objective Data Vital Signs: Vital Signs Temp Pulse Resp BP 96.5 F L 77 16 116/60 07/28/21 13:51 07/28/21 13:51 07/28/21 13:51 07/28/21 13:51 Oxygen Delivery Method Room Air Weight: 223 lb Body Mass Index (BMI) 40.8 Charges/Coding Procedures Integumentary 111xxx-113xx: 77988 Michelle subq tissue 20 sq cm/< Physical Exam Const alert and oriented x3 General Appearance: cooperative HEENT normocephalic Lymph Lymphatic: no lymphedema noted Resp normal respiratory effort Cardio regular rate GI non-tender Palpation: soft Extremity normal capillary refill Skin Wound Narrative: Left leg ulcer is improved and almost healed. Ulcer is beefy pink with good granulation tissue and is much smaller. Neuro CN's II-XII intact bilaterally Psych Appearance: grossly normal Debridement Note Debridement Note Wound debrided: leg ulcer Laterality: Left Type of Debridement: Excisional debridement Anesthesia Used: 5% Lidocaine Gel Depth: Down to and including healthy tissue and in the subcutaneous layer Percentage of wound debrided: 100 Instrument Used: 3mm curette Tissue Removed: Subcutaneous tissue and slough Severity: Fat Layer Exposed Amount of bleeding with debridement: Mild Bleeding Controlled with: Pressure Patient tolerated procedure: Patient tolerated procedure well Post-Debridement Measurements and Additional Note: Post-Debridement Measurements/Treatment - Nurse 1 - General Ulcer Assessment Start: 07/21/21 13:38 Freq: Status: Active Protocol: MELIA Activity Type Activity Date Activity User E-Sign Co-Sign Detail Recorded Client Recorded Date Recorded By Document 07/21/21 13:38 [id number] 07/21/21 13:39 KR Document 07/28/21 13:51 [facility] [id number] 07/28/21 14:00 [facility] 07/21/21 07/28/21 13:38 13:51 - Today's Visit Information Type of service Follow-up Visit Follow-up Visit (Physician/CADMIUM BURNER (Physician/CADMIUM BURNER ) ) Arrival Mode Ambulatory,Cane Ambulatory,Cane Transfer Assistance None Patient Identification Verified (Name & Yes Yes ) Patient Requires Transmission-Based No Precautions Height and Weight Body Mass Index (BMI) 40.8 40.8 BMI Classification Obese Obese Vital Signs Temperature (97.8 F-99.1 F) 96.5 F L 96.5 F L Temperature Source Temporal Temporal Pulse Rate (60-100) 89 77 Pulse Location Monitor Monitor Respiratory Rate (12-18) 16 Respiratory rate source Observation Oxygen Delivery Method Room Air Blood Pressure (90/60-120/80) 116/57 L 116/60 Blood Pressure Mean (mm Hg) 76 78 Source Monitor Monitor Position Semi-Fowlers Sitting Blood Pressure Location Right Arm Left Arm History Since Last Visit- (Skip if this is Patient's initial visit) Have you changed medications since your No No last visit? Any new allergies or adverse reactions No No Had a fall/change in ADL's that may No No increase risk of falls Signs or symptoms of abuse and/or No No neglect since last visit Have you been in the hospital since your No No last visit? Has dressing in place as prescribed Yes Yes Has compression in place as prescribed N/A Yes Has offloadiing in place as prescribed N/A N/A Experienced any changes in pain level or No No management Left Footwear Regular Shoe Regular Shoe Right Footwear Regular Shoe Regular Shoe Pain Scale: 0-10 Numeric Is Patient Pain Free? Yes Yes WC - Nurse 1 - General Ulcer Measurement Start: 07/21/21 13:38 Freq: Status: Active Protocol: Activity Type Activity Date Activity User E-Sign Co-Sign Detail Recorded Client Recorded Date Recorded By Document 07/21/21 13:38 KR [id number] 07/21/21 13:39 KR Document 07/28/21 13:51 [facility] [id number] 07/28/21 14:00 [facility] 07/21/21 07/28/21 13:38 13:51 Wound Center Nurse 1 #3- LLE LAT POST OP -Combined with other wound No -Current Size (cm) - Length 1.5 0.8 -Current Size (cm) - Width 1 0.5 -Current Size (cm) - Depth 0.1 0.1 -Total Square Cm 1.5 0.40 -Photo Taken No -Epithelialization Small 1-33% -Tunneling No -Undermining/Tunneling No -Circular Undermining No -Exudate Amt Small Medium -Exudate Type Yellow/Green Serosanguineous -Wound Margin Distinct, Flat & Intact Outline Attached -Granulation Amt Medium (34-66%) Large (67-100%) -Granulation Quality Red Steger -Slough/Fibrin Yes -Necrosis Amt Medium (34-66%) Small (1-33%) -Necrotic Tissue Type Adherent Slough Adherent Slough -Texture (Rubia-wound Skin Appearance) Assessed, Assessed, Scarring Scarring -Moisture (Rubia-wound Skin Appearance) No Abnormality, Assessed,Dry/ Assessed Scaly -Color (Rubia-wound Skin Appearance) No Abnormality, Assessed Assessed -Temperature (Rubia-wound Skin No Abnormality No Abnormality Appearance) (Pt Warm) (Pt Warm) -Tenderness on Palpation (Rubia-wound No No Skin Appearance) -Ulcer Cleansing Rinsed/ Soap and Water Irrigated with Saline -Foul Odor after Cleansing No No -Anesthetic Used 5% Lidocaine 5% Lidocaine Gel Gel Lower Limb Edema Present Yes Left Calf (cm) 42.6 Left Ankle (cm) 26.9 WC - Nurse 2 - General Ulcer CM Notes Start: 07/21/21 13:38 Freq: Status: Active Protocol: Activity Type Activity Date Activity User E-Sign Co-Sign Detail Recorded Client Recorded Date Recorded By Document 07/21/21 13:58 MANDEEP [id number] 07/21/21 14:06 07/21/21 13:58 Wound Center Nurse 2 #3- LLE LAT POST OP -Time 13:58 -Correct Patient Yes -Correct Side, Site, Position Yes -Correct Procedure Yes -Procedure Performed Yes -Type of Procedure Debridement -Clinical Debridement Subcutaneous -Tissue Removed Subcutaneous -Post Debridement (cm) - Length 1.5 -Post Debridement (cm) - Width 0.8 -Post Debridement (cm) - Depth 0.1 -Total Square (Post) (cm) 1.20 -Area of Debridement (cm) - Length 1.5 -Area of Debridement (cm) - Width 0.8 -Total Square (Area) (cm) 1.20 -Tunneling No -Undermining/Tunneling No -Circular Undermining No -Wound/Ulcer Outcome Not Healed -Ulcer Cleansing Rinsed/ Irrigated with Saline -Foul Odor after Cleansing No -Bioengineered Tissue No -Expiration Date 03/20/26 -Product Lot Number [id number] -Percent Used 100 -Lot number of Saline Used [id number] -Bleeding Controlled with Pressure -Offloading No -Treatment Response Procedure Tolerated Well -Debridement - Subq, 1st 20sq cm No -Apply Skin Sub - 1st 25 sq cm - Legs 1 -Epifix 18mm Disc 3 Pain Scale: 0-10 Numeric Is Patient Pain Free? Yes - Nurse 3 - General Ulcer D/C NN Start: 07/21/21 13:38 Freq: Status: Active Protocol: Activity Type Activity Date Activity User E-Sign Co-Sign Detail Recorded Client Recorded Date Recorded By Document 07/28/21 14:36 [email or web address] [id number] 07/28/21 14:36 07/28/21 14:36 Wound Care Nurse 3 #3- LLE LAT POST OP -Ulcer Cleansing Rinsed/ Irrigated with Saline -Foul Odor after Cleansing No -Primary Dressing Applied C Hydrogel ($), Mepilex Border -Mepilex Border 1 Pain Scale: 0-10 Numeric Is Patient Pain Free? Yes WC - Visit Discharge Discharge Condition Stable Ambulatory Status Ambulatory,Cane Transportation Private Auto Medication Reconcilliation completed & Yes provided to patient/care provider Clinical Summary of Care Provided Yes Assessment/Plan Assessment/Plan (1) Ulcer of left lower extremity with fat layer exposed: CODE(S): L97.922 - Non-pressure 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 (2) Factor 5 Leiden mutation, heterozygous: CODE(S): D68.51 - Activated protein C resistance (3) Traumatic hematoma of left lower leg with infection: CODE(S): S80.12XA - Contusion of left lower leg, initial encounter; L08.9 - Local infection of the skin and subcutaneous tissue, unspecified QUALIFIERS: Encounter type: initial encounter Qualified Code(s): S80.12XA - Contusion of left lower leg, initial encounter; L08.9 - Local infection of the skin and subcutaneous tissue, unspecified PLAN: The last Epifix was applied last week and there has been much improvement in her ulcer. Wound care - Collagen hydrole covered with Mepilex dressing 3 times per week to left leg ulcer. Double layer Tubigrip for compression. She may shower on the days she is doing the dressing change and wash the ulcer with soap and water. Encouraged increase protein intake to help with wound healing. 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 We will watch for increased bleeding with debridement. Follow up one week.
[2021-08-04 09:43] VITALS: BP 141/69; PULSE 84; RESP 18; TEMP 36.2; BMI 40.8
--- NOTE | 2021-08-04 15:30 | PCM.WC.PN ---
History of Present Illness Date of Service: 08/04/21 Chief Complaint: Traumatic ulcer to the left anterolateral leg History of Wound: 71 YEAR OLD WOMAN PRESENTS WITH A TRAUMATIC INFECTED HEMATOMA LEFT ANTEROLATERAL LEG WITH ASSOCIATED SKIN NECROSIS THAT SHE SUSTAINED ON JANUARY 31, 2021 WHEN SHE FELL AT HOME. SHE IS ON ELIQUIS FOR FACTOR V DEFICIENCY. SHE WENT TO THE ED WHERE THE LACERATION WAS CLEANSED AND SUTURED CLOSED. X-RAY IN THE ED WAS NEGATIVE FOR FRACTURE OR DISLOCATION. SHE FOLLOWED UP WITH HER PCP WHO NOTED SOME SLIGHT WOUND SEPARATION AFTER REMOVING SOME SUTURES. THE LEG WAS WRAPPED WITH GAUZE AND A COMPRESSION NIA WRAP. SOME REDNESS WAS NOTED SUPERIORLY AND SHE WAS STARTED ON DOXYCYCLINE AND CLINDAMYCIN. ALSO SOME SKIN NECROSIS WAS SEEN MEDIALLY. Surgery on 02/18/21 for Surgical preparation left anterolateral leg with incision and drainage and evacuation traumatic infected hematoma and excisional debridement skin necrosis (156 cm2). Operative cultures were positive for Pseudomonas aeroginosa and Anaerobic cocci. She was treated with Levaquin. She wound benefit from a skin graft or an advanced wound care product to assist with wound closure. The patient is not interested in having any further surgery at this time. She has been approved for Epifix placental tissue to help with wound healing. Wound care - She has completed her Epifix series and has much improvement in her left leg ulcer. Wound care will be collagen hydrogel covered with Mepilex dressing 3 times per week. Tubigrip for compression. She was transferred to TCU on 02/21/21. She was discharged from TCU on 03/14/21 with home health. Today she denies fevers and states her appetite is good. Progress of Wound: She is healed today. Objective Data Objective Data Vital Signs: Vital Signs Temp Pulse Resp BP 97.1 F L 84 18 141/69 H 08/04/21 09:43 08/04/21 09:43 08/04/21 09:43 08/04/21 09:43 Oxygen Delivery Method Room Air Weight: 223 lb Body Mass Index (BMI) 40.8 Charges/Coding Visit Charges Office Visits / Consults: 09196 OV L3 Est Physical Exam Const alert and oriented x3 HEENT normocephalic Eyes PERRL Resp normal respiratory effort Cardio regular rate GI Palpation: soft Extremity normal capillary refill Extremity Narrative: +1 edema on left leg. Skin Wound Narrative: Left leg ulcer is healed. Neuro CN's II-XII intact bilaterally Psych Appearance: grossly normal Debridement Note Debridement Note No debridement was completed: No debridement was completed today Assessment/Plan Assessment/Plan (1) Ulcer of left lower extremity with fat layer exposed: CODE(S): L97.922 - Non-pressure 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 (2) Factor 5 Leiden mutation, heterozygous: CODE(S): D68.51 - Activated protein C resistance (3) Traumatic hematoma of left lower leg with infection: CODE(S): S80.12XA - Contusion of left lower leg, initial encounter; L08.9 - Local infection of the skin and subcutaneous tissue, unspecified QUALIFIERS: Encounter type: initial encounter Qualified Code(s): S80.12XA - Contusion of left lower leg, initial encounter; L08.9 - Local infection of the skin and subcutaneous tissue, unspecified PLAN: The last Epifix was applied 2 weeks ago and she is healed today. Continue double layer Tubigrip for compression. Massage with lotion 1-2 times a day to help soften the scarring. Follow up as needed.
== END 2021-08-04 11:56 | disposition home or self-care (01) ==
LOC: WC 09:30
PROVIDERS: PCP Family Medicine Geriatric Medicine; Visit Provider Nurse Practitioner Family
DX: L97.922 Non-pressure 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 (principal); S80.12XS Contusion of left lower leg, sequela; W19.XXXS Unspecified fall, sequela; D68.51 Activated protein C resistance; E66.9 Obesity, unspecified; Z68.41 Body mass index [BMI] 40.0-44.9, adult; Z79.01 Long term (current) use of anticoagulants; Z79.899 Other long term (current) drug therapy
CPT/HCPCS: 11042; 15271; 99213; Q4186; G0463

== ENCOUNTER 2021-11-19 08:46 | Outpatient (CLI) | payer MEDICARE, OTHER, SELFPAY ==
--- NOTE | 2021-11-19 10:15 | RAD_ITS ---
History: LOW BACK PAIN Lumbar spine 3 views: Comparison: September 16, 2020 Findings: No fracture or subluxation. Multilevel disc space narrowing and facet arthropathy again noted without interval change. Pedicles and posterior elements appear intact. IMPRESSION: Stable prominent diffuse spondylosis. at 1125 Reported and signed by: Noam Flynn MD Electronically Signed: Noam Flynn MD at 11:24 EST , RAD/Lumbar Spine 2 or 3 Views
[2021-11-19 12:09] LABS: Absolute Lymphocyte Count 1.17 X10^3/uL (0.83-4.51); Absolute Neutrophil Count 1.9 X10^3/uL (2.0-7.7); Basophil# 0.04 X10^3/uL; Basophil% 1.1 % (0-1); Eosinophil# 0.13 X10^3/uL; Eosinophils% 3.5 % (0-5); Hematocrit 35.5 % (37-47); Hemoglobin 11.5 g/dL (12.0-15.0); Lymphocyte # 1.17 X10^3/ul (0.83-4.51); Lymphocyte % 31.7 % (19-41); Mean Corp Hgb Conc 32.4 g/dL (32-36); Mean Corpuscular Hgb 27.8 pg (27.0-32.0); Mean Corpuscular Volume 85.7 fL (81-99); Mean Platelet Vol. 10.7 fl (6.2-12.0); Monocyte% 10.8 % (0-10); NRBC Flagged by Analyzer 0.5 % (0-5); Neutrophil # 1.94 X10^3/uL (2.7-7.7); Neutrophil % 52.6 % (47-70); Platelet Count 206 K/mm3 (150-450); RBC Distribution Width CV 14.9 % (11.6-14.6); RBC Distribution Width SD 46.5 fl (35.1-43.9); Red Blood Count 4.14 M/mm3 (4.2-5.4); White Blood Count 3.7 K/mm3 (4.4-11.0)
[2021-11-19 13:02] LABS: ALB/GLOB Ratio 0.9 RATIO (0.9-2.4); AST(SGOT) 21 U/L (15-37); Alanine Aminotransfer ALT/SGPT 20 U/L (13-56); Albumin, Serum 3.4 g/dL (3.2-5.0); Alkaline Phosphatase 95 U/L (45-117); Anion Gap 7 (5-15); BUN 23 mg/dL (7-18); BUN/Creat Ratio 23.2 RATIO (10-20); Calcium,Total 9.5 mg/dL (8.5-10.1); Chloride 104 mmol/L (98-107); Creatinine, Serum 0.99 mg/dL (0.55-1.02); EST Glomerular Filtration Rate 58 mL/min (>60); Est Glom Filt Rate - Afr Amer 70 mL/min (>60); Globulin 3.9 g/dL (2.2-4.2); Glucose 84 mg/dL (74-106); Potassium 3.7 mmol/L (3.5-5.1); Protein, Total 7.3 g/dL (6.4-8.2); Sodium Level 138 mmol/L (136-145); Thyroid Stim Hormone (TSH) 1.07 uIU/mL (0.358-3.74)
== END 2021-11-19 23:59 | disposition home or self-care (01) ==
LOC: POLAB3 08:47 → RAD 09:54
PROVIDERS: PCP Family Medicine Geriatric Medicine; Referring Provider Family Medicine Geriatric Medicine; Visit Provider Family Medicine Geriatric Medicine
DX: M54.50 Low back pain, unspecified (principal); I10 Essential (primary) hypertension; E55.9 Vitamin D deficiency, unspecified
CPT/HCPCS: 36415; 72100; 80053; 82306; 84443; 85025

== ENCOUNTER 2022-01-08 07:46 | Outpatient (CLI) | payer MEDICARE, OTHER, SELFPAY ==
--- NOTE | 2022-01-08 07:50 | MRI_ITS ---
STUDY: MRI LUMBAR SPINE WITHOUT CONTRAST REASON FOR EXAM: Female, 71 years old. LOW BACK PAIN TECHNIQUE: Standardized fat and water weighted pulse sequences were obtained in the sagittal and axial planes. COMPARISON: None FINDINGS: T9-T10 and T10-T11: (Sagittal only). Normal endplates. Normal disc height and morphology. No ventral extradural defects. Normal central canal and bilateral intervertebral neural foramina. Minimal right dorsal lateral extradural defect at T10-T11 disc space level due to right posterior ligamenta flava hypertrophy. T11-T12: (Sagittal only). Normal endplates. Mild disc space height narrowing. Midline ventral extra dural defect due to posterior bulging disc. Normal central canal and bilateral intervertebral neural foramina. T12-L1: Normal endplates. Mild disc space height narrowing. Mild ventral extradural defect due to posterior bulging annulus. Mild left degenerative facet arthropathy. Normal right facet joint. Normal central canal and bilateral lateral recesses. Normal bilateral intervertebral neural foramina. Small left renal cyst is visible at this level. Normal lumbar lordosis. There is no substantial scoliosis. Normal conus medullaris that terminates at the upper T12 vertebral body level. L1-2: Normal endplates. Pronounced posterior disc space height narrowing. Minimal degenerative retrolisthesis of L1 on L2. Mild asymmetric degenerative facet arthropathy. Normal central canal and bilateral lateral recesses. Moderate stenosis of the left intervertebral neural foramen. Normal right intervertebral neural foramen. L2-3: Normal endplates. Moderate disc space height narrowing. Mild ventral extradural defect due to small posterior bulging annulus. Moderate left degenerative facet arthropathy. Mild right degenerative facet arthropathy. Mild central canal stenosis with an AP canal diameter of 8.4 mm. Normal bilateral lateral recesses. Normal bilateral intervertebral neural foramina. L3-4: Normal endplates. Mild disc space height narrowing. Pronounced left degenerative facet hypertrophy. Moderate right degenerative facet hypertrophy. Prominent posterior ligamenta flava hypertrophy, left side is 6 mm thick in the right side is 5 mm thick. Pronounced central canal stenosis with an AP canal diameter of 4 mm. Normal bilateral lateral recesses. Mild stenosis of the right intervertebral neural foramen. Normal left intervertebral neural foramen. L4-5: Normal endplates. Mild disc space height narrowing. Mild degenerative anterolisthesis of L4 on L5. Pronounced right degenerative facet hypertrophy. Moderately pronounced left degenerative facet arthropathy. Asymmetric posterior ligamenta flava hypertrophy. Pronounced central canal stenosis with an AP canal diameter of 3.7 mm. Moderate stenosis of the bilateral lateral recesses. Mild stenosis of the right intervertebral neural foramen. Normal left intervertebral neural foramen. L5-S1: Normal endplates. Hypoplastic disc. Hypoplastic facet joints. Mild central canal stenosis with an AP canal diameter of 8.4 mm. Normal bilateral lateral recesses. Normal bilateral intervertebral neural foramina. Normal visualized sacral ala. Normal visualized paraspinous soft tissue structures. MRI/Spine Lumbar (Routine) IMPRESSION: 1. Pronounced central canal stenosis at L4-L5 disc space level with an AP canal diameter of 3.7 mm, pronounced right degenerative facet hypertrophy, moderately pronounced left degenerative facet hypertrophy and mild degenerative anterolisthesis of L4 on L5. 2. Pronounced central canal stenosis at L3-L4 disc space level with an AP canal diameter of 4 mm, posterior ligamenta flava hypertrophy (6 mm thick on the left and 5 mm thick on the right), pronounced left degenerative facet hypertrophy and mild stenosis of the right intervertebral neural foramen. 3. Mild central canal stenosis at L2-L3 disc space level with an AP canal diameter of 8.4 mm. 4. Moderate stenosis of the left L1-L2 intervertebral neural foramen and minimal degenerative retrolisthesis of L1 on L2. 5. No MRI evidence of lumbar extruded disc fragment. Electronically Signed: Emeterio Chinchilla MD at 15:59 EDT ,
== END 2022-01-08 23:59 | disposition home or self-care (01) ==
PROVIDERS: PCP Family Medicine Geriatric Medicine; Referring Provider Family Medicine Geriatric Medicine; Visit Provider Family Medicine Geriatric Medicine
DX: M54.50 Low back pain, unspecified (principal)
CPT/HCPCS: 72148

== ENCOUNTER → 2022-05-27 | Outpatient (CLI) | payer MEDICARE, OTHER, SELFPAY ==
[2022-05-27 12:11] LABS: Absolute Lymphocyte Count 0.83 X10^3/uL (0.83-4.51); Absolute Neutrophil Count 4.8 X10^3/uL (2.0-7.7); Basophil# 0.01 X10^3/uL; Basophil% 0.2 % (0-1); Hematocrit 35.5 % (37-47); Hemoglobin 11.6 g/dL (12.0-15.0); Lymphocyte # 0.83 X10^3/ul (0.83-4.51); Lymphocyte % 13.7 % (19-41); Mean Corp Hgb Conc 32.7 g/dL (32-36); Mean Corpuscular Hgb 29.2 pg (27.0-32.0); Mean Corpuscular Volume 89.4 fL (81-99); Mean Platelet Vol. 10.4 fl (6.2-12.0); Monocyte# 0.43 X10^3/uL; Monocyte% 7.1 % (0-10); NRBC Flagged by Analyzer 0 % (0-5); Neutrophil # 4.79 X10^3/uL (2.7-7.7); Neutrophil % 78.8 % (47-70); Platelet Count 202 K/mm3 (150-450); RBC Distribution Width CV 14.6 % (11.6-14.6); RBC Distribution Width SD 48.1 fl (35.1-43.9); Red Blood Count 3.97 M/mm3 (4.2-5.4); White Blood Count 6.1 K/mm3 (4.4-11.0)
[2022-05-27 12:50] LABS: Vitamin D,25 Hydroxy 47.2 ng/mL
[2022-05-27 12:53] LABS: ALB/GLOB Ratio 0.9 RATIO (0.9-2.4); AST(SGOT) 11 U/L (15-37); Alanine Aminotransfer ALT/SGPT 15 U/L (13-56); Albumin, Serum 3.2 g/dL (3.2-5.0); Alkaline Phosphatase 82 U/L (45-117); Anion Gap 8 (5-15); BUN 28 mg/dL (7-18); BUN/Creat Ratio 31.9 RATIO (10-20); Calcium,Total 9.3 mg/dL (8.5-10.1); Chloride 107 mmol/L (98-107); Creatinine, Serum 0.88 mg/dL (0.55-1.02); EST Glomerular Filtration Rate 67 mL/min (>60); Est Glom Filt Rate - Afr Amer 81 mL/min (>60); Globulin 3.7 g/dL (2.2-4.2); Glucose 96 mg/dL (74-106); Potassium 3.9 mmol/L (3.5-5.1); Protein, Total 6.9 g/dL (6.4-8.2); Sodium Level 141 mmol/L (136-145); Thyroid Stim Hormone (TSH) 0.42 uIU/mL (0.358-3.74)
== END | disposition home or self-care (01) ==
LOC: POLAB3 08:49
PROVIDERS: PCP Family Medicine Geriatric Medicine; Visit Provider Family Medicine Geriatric Medicine
DX: I10 Essential (primary) hypertension (principal); E55.9 Vitamin D deficiency, unspecified
CPT/HCPCS: 36415; 80053; 82306; 84443; 85025

== ENCOUNTER 2022-05-28 14:57 | Inpatient (IN) | payer MEDICARE, OTHER, SELFPAY ==
[2022-05-28 14:58] VITALS: BP 113/58; PULSE 82; RESP 16; TEMP 36.5; BMI 38.5
--- NOTE | 2022-05-28 15:13 | EKG12_ITS ---
Test Reason : FALL Blood Pressure : / mmHG Vent. Rate : 071 BPM Atrial Rate : 071 BPM P-R Int : 126 ms QRS Dur : 096 ms QT Int : 432 ms P-R-T Axes : -19 001 058 degrees QTc Int : 469 ms Normal sinus rhythm Nonspecific ST and T wave abnormality Abnormal ECG Confirmed by TREVA SANCHEZ, IVANNA ([id number]), fashion editor YESSI OH ([id number]) on 06/01/2022 10:45:53 AM Referred By: RALPH Confirmed By:IVANNA TILLEY MD
--- NOTE | 2022-05-28 15:14 | ED.VIS.LOWEX ---
HPI History of Present Illness Chief Complaint: Lower Extremity Injury Informant: patient Narrative Narrative: Patient presents with left hip pain and inability to ambulate. She had a fall while gardening today. She states she pulled a weed slipped and fell back on her hip. She got up did it again and fell back on the same hip. That time it hurt a lot. She really just cannot put weight on that leg. She never hit her head. She landed on her buttock and hip and went no further. Her only area of pain is the left hip. This was a purely mechanical fall and she had no syncopal or presyncopal feelings before or after the event. She is acting totally normally to her daughter. She is on Eliquis for history of A. fib. She has a history of a significant hematoma on her left leg a year or so ago that had to be drained. She has had both knees replaced but no prior hip surgery. Motion makes the pain worse. Nothing really makes it better. Her last Eliquis dose was this morning as scheduled. [facility] Medical History Allergies Anxiety Arthritis Atrial fibrillation Cardiology follow-up encounter Cellulitis of left lower leg CKD (chronic kidney disease) CKD (chronic kidney disease) CPAP (continuous positive airway pressure) dependence Depression DVT (deep venous thrombosis) Essential hypertension Factor V deficiency Fall as cause of accidental injury at home as place of occurrence Fall due to ice or snow Family history of coronary artery disease Family history of CVA Family history of hypertension Gastric reflux Head injury without concussion or intracranial hemorrhage Headache Hearing problem Hematoma of left lower extremity High cholesterol History of atrial fibrillation History of DVT (deep vein thrombosis) History of edema History of pain when walking History of stress test Hx of echocardiogram Hyperlipidemia Hypertension Injury of back Injury of head and neck 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 lower leg 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 Long-term use of high-risk medication Migraine headache Non-smoker Obesity, Class III, BMI 40-49.9 (morbid obesity) Open wound Open wound of left lower leg with complication VALENTIN (obstructive sleep apnea) Paroxysmal atrial fibrillation Skin necrosis Syncope Traumatic ulcer of left lower extremity Vision problems Walker as ambulation aid Wears glasses Wears hearing aid Home Medications levocetirizine 5 mg tablet 5 mg PO DAILY allergies 09/29/13 [History Last Taken 09/29/13] montelukast 10 mg tablet 10 mg PO DAILY Allergies 09/29/13 [History Last Taken 09/28/13] omeprazole 20 mg capsule,delayed release 20 mg PO DAILY GERD 09/29/13 [History Last Taken 02/18/21] potassium chloride 20 mEq tablet,extended release(part/cryst) 20 meq PO BID Supplement 09/29/13 [History Last Taken 09/29/13] verapamil 240 mg 24 hr capsule,extended release 240 mg PO DAILY BP 09/29/13 [History Last Taken 02/18/21] amitriptyline 25 mg tablet 25 mg PO QHS Mood 10/25/19 [History Last Taken Unknown] galcanezumab-gnlm 120 mg/mL subcutaneous syringe (Emgality) 120 mg subcut QMONTH Ask 10/25/19 [History Last Taken Unknown] multivitamin 1 tab PO DAILY Supplement 04/26/20 [History Last Taken Unknown] divalproex 500 mg tablet,extended release 24 hr (Depakote ER) 500 mg PO QHS Ask 01/31/21 [History Last Taken Unknown] apixaban 5 mg tablet 5 mg PO BID Blood thinner 02/21/21 [History Last Taken Unknown] acetaminophen 500 mg tablet 1,000 mg PO Q6H PRN PRN Pain Score 1-5 #0 tabs 03/11/21 [Rx Last Taken Unknown] citalopram 40 mg tablet 40 mg PO DAILY #0 tabs 03/11/21 [Rx Last Taken Unknown] valsartan 320 mg-hydrochlorothiazide 12.5 mg tablet 1 tab PO DAILY 05/27/21 [History Last Taken Unknown] calcium carbonate 600 mg calcium (1,500 mg) tablet 600 mg PO DAILY 11/24/21 [History Last Taken Unknown] ergocalciferol (vitamin D2) 1,250 mcg (50,000 unit) capsule 1,250 mcg PO QWEEK 11/24/21 [History Last Taken Unknown] Allergy/AdvReac Type Severity Reaction Status Date / Time cefdinir Allergy Hives Verified 05/28/22 15:02 diphenhydramine HCl Allergy Hives Verified 05/28/22 15:02 [From Benadryl] Sulfa (Sulfonamide Allergy Hives Verified 05/28/22 15:02 Antibiotics) Family History Brother CAD (coronary artery disease) Mother CVA (cerebral vascular accident) CAD (coronary artery disease) Son Hypertension Daughter Hypertension Other Arthritis Cancer Diabetes Family history of CVA Family history of coronary artery disease Family history of hypertension Heart disease High cholesterol Kidney disease Thyroid disorder Surgical History History of bilateral knee replacement History of cholecystectomy History of incision and drainage History of total hysterectomy Hx of cataract extraction Social History household members: spouse housing: house number of children: 2 current occupational status: retired current occupational exposures/hazards: No pets and animals: No Smoking Status: Never smoker alcohol intake: never substance use type: does not use caffeine: Yes Type: tea what type of physical activity do you participate in: none seatbelt use: always do you feel safe at home: Yes additional social history: Does Not Take Aspirin Does Not Take Ibuprofen ROS ROS ED Constitutional Constitutional ED: Denies chills, fever(s) or sweats Eyes Eyes: Denies change in vision ENT ENT ED: Denies sore throat Cardiovascular Cardiovascular: Denies chest pain, palpitations or racing heartbeat Respiratory/Chest Respiratory/Chest: Denies cough or dyspnea Gastrointestinal Gastrointestinal: Denies abdominal pain, nausea or vomiting Genitourinary Genitourinary ED: Denies hematuria Musculoskeletal Musculoskeletal: Reports arthralgias and other Details: See history of present illness. ; Denies back pain or neck pain Integumentary Denies rash Neurologic Neurologic: Denies headache(s), paresthesias or weakness Hematologic/Lymphatic Hematologic/Lymphatic: Reports easy bleeding and easy bruising Allergic/Immunologic Allergic/Immunologic ED: Denies urticaria EXAM Physical Exam Const Vital Signs: 05/28/22 14:58 Temperature 97.7 F L Temperature Source Temporal Pulse Rate 82 Respiratory Rate 16 Blood Pressure 113/58 L Blood Pressure Mean 76 Positive well nourished and well developed Constitutional Narrative: Patient is awake alert completely appropriate. She has a very clear and detailed informant. She does look to be in some discomfort. General Appearance ED: well developed HEENT Reports moist mucous membranes HEENT Narrative: I see no sign of trauma anywhere on her head neck shoulder area. atraumatic Neck full ROM and supple Thyroid: Negative for tender Chest Wall inspection of chest normal Resp normal respiratory effort and clear to auscultation bilaterally Resp Narrative: No tenderness with compression or deep breath Auscultation: Negative for rales, rhonchi or wheezes Cardio regular rate and regular rhythm Cardio Narrative: Patient has a history of atrial fibrillation but she sounds as though she is quite regular now. GI non-tender and non-distended Back/Spine Cervical Spine: Negative for cervical spine tenderness Thoracic Spine / Upper Back: Negative for thoracic spinal tenderness Lumbar Spine / Lower Back: Negative for lumbar spinal tenderness Neuro Neuro Narrative: Patient does have tenderness over on the left hip area. We will get her undressed and look at this. Her right lower extremity actually has a little external rotation compared to the left. It is also a little bit shorter. But it is her left side that hurts. She has also had both knees replaced and this could affect this positioning. She has a scar in the proximal lateral left calf consistent with drainage of prior hematoma. This is well-healed. Psych mental status grossly normal Skin Skin Narrative: Will examine more closely after pain meds. MDM MDM MDM Narrative Medical decision making narrative: Patient's x-rays do show a femoral neck fracture on the left. Patient's recheck. She is still having pain so further meds were ordered. So far her blood work has a CBC that is normal other than mild anemia which is at her baseline. Patient has no new complaints. I have orthopedics and hospitalist on page. CBC is at baseline. Electrolytes showed just a slight bump of her creatinine. Potassium was elevated but it was hemolyzed and her EKG does not look like hyperkalemia. Lab Data Attestation: I reviewed the patient's lab results. Labs: Laboratory Results - last 24 hr 05/28/22 05/28/22 05/28/22 15:35 15:55 16:28 WBC 8.7 RBC 3.85 L Hgb 11.1 L Hct 34.4 L MCV 89.4 MCH 28.8 MCHC 32.3 RDW Std Deviation 48.8 H RDW Coeff of Shannon 14.9 H Plt Count 177 MPV 10.2 Immature Gran % (Auto) 0.700 Neut % (Auto) 81.0 H Lymph % (Auto) 9.4 L Letcher % (Auto) 7.9 Eos % (Auto) 0.7 Baso % (Auto) 0.3 Absolute Neuts (auto) 7.1 Absolute Lymphs (auto) 0.82 L Nucleated RBC % 0 Sodium Cancelled 139 Potassium Cancelled 5.7 H Chloride Cancelled 110 H Carbon Dioxide Cancelled 24.0 Anion Gap Cancelled 5 BUN Cancelled 31 H Creatinine Cancelled 1.14 H Estim Creat Clear Calc Cancelled 34.24 Est GFR (MDRD) Af Amer Cancelled 60 Est GFR (MDRD) Non-Af Cancelled 50 L BUN/Creatinine Ratio Cancelled 27.2 H Glucose Cancelled 100 Calcium Cancelled 8.7 Radiography Diagnostic Testing: Clinical Impression(s) from Imaging Studies Hip/Pelvis X-Ray 05/28/22 15:41 IMPRESSION: Left hip fracture Electronically Signed: Ghulam Drummond MD at 16:53 EDT , EKG Initial EKG: Comments: EKG done for history of atrial fibrillation read by me shows currently in normal sinus rhythm with overall rate of 71. Nonspecific ST and T wave flattening but no sign of acute elevation or depression. SD interval, QRS duration are normal. QTc is heading toward the upper end at 469 ms. Discharge Plan Dx/Rx/DC Orders Clinical Impression: Closed fracture of left hip, Fall at home, Medication induced coagulopathy Disposition Disposition: Acute Care [facility]
--- NOTE | 2022-05-28 15:41 | RAD_ITS ---
STUDY: X-RAY - PELVIS AND LEFT HIP REASON FOR EXAM: Female, 72 years old. Trauma TECHNIQUE: 3 views of the pelvis and hip. COMPARISON: None. FINDINGS: There is a non-specific bowel gas pattern. Normal visualized soft tissue structures. Normal bilateral iliac wings, sacroiliac joints and visualized sacrum. Normal bilateral superior and inferior pubic rami. Normal pubic symphysis. Normal bilateral ischial tuberosities. Left femoral neck fracture with moderate varus deformity. Normal visualized femoral head. Normal acetabulum. Normal hip joint. RAD/HIP, UNI W/ Pelvis 2-3 Views IMPRESSION: Left hip fracture Electronically Signed: Ghulam Drummond MD at 16:53 EDT ,
[2022-05-28 15:42] LABS: Absolute Lymphocyte Count 0.82 X10^3/uL (0.83-4.51); Absolute Neutrophil Count 7.1 X10^3/uL (2.0-7.7); Basophil# 0.03 X10^3/uL; Basophil% 0.3 % (0-1); Eosinophil# 0.06 X10^3/uL; Eosinophils% 0.7 % (0-5); Hematocrit 34.4 % (37-47); Hemoglobin 11.1 g/dL (12.0-15.0); Lymphocyte # 0.82 X10^3/ul (0.83-4.51); Lymphocyte % 9.4 % (19-41); Mean Corp Hgb Conc 32.3 g/dL (32-36); Mean Corpuscular Hgb 28.8 pg (27.0-32.0); Mean Corpuscular Volume 89.4 fL (81-99); Mean Platelet Vol. 10.2 fl (6.2-12.0); Monocyte# 0.69 X10^3/uL; Monocyte% 7.9 % (0-10); NRBC Flagged by Analyzer 0 % (0-5); Neutrophil # 7.05 X10^3/uL (2.7-7.7); Platelet Count 177 K/mm3 (150-450); RBC Distribution Width CV 14.9 % (11.6-14.6); RBC Distribution Width SD 48.8 fl (35.1-43.9); Red Blood Count 3.85 M/mm3 (4.2-5.4); White Blood Count 8.7 K/mm3 (4.4-11.0)
[2022-05-28] MEDS: Morphine 4 MG/ML Syringe IV ×3 (16:06→18:57)
[2022-05-28] MEDS: Ondansetron 4 MG/2 ML Vial IV (16:06)
[2022-05-28 16:51] LABS: Anion Gap 5 (5-15); BUN 31 mg/dL (7-18); BUN/Creat Ratio 27.2 RATIO (10-20); Calcium,Total 8.7 mg/dL (8.5-10.1); Chloride 110 mmol/L (98-107); Creatinine, Serum 1.14 mg/dL (0.55-1.02); EST Glomerular Filtration Rate 50 mL/min (>60); Est Glom Filt Rate - Afr Amer 60 mL/min (>60); Estimated Creatinine Clearance 34.24 ml/min; Glucose 100 mg/dL (74-106); Potassium 5.7 mmol/L (3.5-5.1); Sodium Level 139 mmol/L (136-145)
--- NOTE | 2022-05-28 16:56 | HP.PCM.HOS_ITS ---
HPI - General General Date of Admission: 05/28/22 Date of Service: 05/28/22 Chief Complaint: Fall x 2, L hip pain. HPI Narrative The patient is a 72 y/o WF w/ PMHx: Allergic rhinitis, Hx VTE, Factor V Leiden deficiency, Hypertension, PAF, Chronic kidney disease III unclear subtype, Obesity, CKD stage , VALENTIN on CPAP q HS, Anxiety and Depression, GERD, Chronic normocytic anemia, Anxiety and Depression who presents to the [facility] ED on 05/28/22 with history of gardening and unfortunately bending over and attempting to pull a weed which broke while she was doing so causing her to fall over onto her left hip eventually requiring help and assistance to get up again and and again going outside to put things away with mechanical fall landing on the cement onto her left hip with intractable pain and debility following prompting ED evaluation. She notes pain 10 out of 10 in severity, sharp, aching. Currently pain improved with pain regimen in the emergency room. She does confirm last Eliquis dose was a.m. on day of presentation. She states that she would normally take next dose at 6 PM this evening. Work-up in the ED included T97.7, heart rate 82, BP 113/58, respiratory rate 16, 98% on room air, CBC with WC 8.7, hemoglobin 1.1, platelet 177 with lymphopenia, BMP with potassium 5.7 however noted to be moderately hemolyzed, chloride 110, BUN/creatinine 31/1.14, otherwise unremarkable, plain film of the left hip and pelvis with left femoral neck fracture with moderate varus deformity, EKG with SR without acute evidence of ischemia, regular appearing as PAF history. In the ED patient ministered Zofran as well as morphine 4 mg IV x2. ED physician did discuss case upon patient presentation with Dr. Caceres, orthopedic surgery. [facility] Medical History Allergies Anxiety Arthritis Atrial fibrillation Cardiology follow-up encounter Cellulitis of left lower leg CKD (chronic kidney disease) CKD (chronic kidney disease) CPAP (continuous positive airway pressure) dependence Depression DVT (deep venous thrombosis) Essential hypertension Factor V deficiency Fall as cause of accidental injury at home as place of occurrence Fall due to ice or snow Family history of coronary artery disease Family history of CVA Family history of hypertension Gastric reflux Head injury without concussion or intracranial hemorrhage Headache Hearing problem Hematoma of left lower extremity High cholesterol History of atrial fibrillation History of DVT (deep vein thrombosis) History of edema History of pain when walking History of stress test Hx of echocardiogram Hyperlipidemia Hypertension Injury of back Injury of head and neck 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 lower leg 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 Long-term use of high-risk medication Migraine headache Non-smoker Obesity, Class III, BMI 40-49.9 (morbid obesity) Open wound Open wound of left lower leg with complication VALENTIN (obstructive sleep apnea) Paroxysmal atrial fibrillation Skin necrosis Syncope Traumatic ulcer of left lower extremity Vision problems Walker as ambulation aid Wears glasses Wears hearing aid Home Medications levocetirizine 5 mg tablet 5 mg PO DAILY allergies 09/29/13 [History Last Taken 05/27/22] montelukast 10 mg tablet 10 mg PO DAILY Allergies 09/29/13 [History Last Taken 05/28/22] omeprazole 20 mg capsule,delayed release 20 mg PO DAILY GERD 09/29/13 [History Last Taken 05/28/22] potassium chloride 20 mEq tablet,extended release(part/cryst) 20 meq PO BID Supplement 09/29/13 [History Last Taken 05/28/22] verapamil 240 mg 24 hr capsule,extended release 240 mg PO DAILY BP 09/29/13 [History Last Taken 05/27/22] amitriptyline 25 mg tablet 25 mg PO QHS Mood 10/25/19 [History Last Taken 05/27/22] galcanezumab-gnlm 120 mg/mL subcutaneous syringe (Emgality) 120 mg subcut QMONTH Ask 10/25/19 [History Last Taken 05/23/22] multivitamin 1 tab PO DAILY Supplement 04/26/20 [History Last Taken 05/27/22] divalproex 500 mg tablet,extended release 24 hr (Depakote ER) 500 mg PO QHS Ask 01/31/21 [History Last Taken 05/27/22] apixaban 5 mg tablet 5 mg PO BID Blood thinner 02/21/21 [History Last Taken 05/11] acetaminophen 500 mg tablet 1,000 mg PO Q6H PRN PRN Pain Score 1-5 #0 tabs 03/11/21 [Rx Last Taken 05/28/22] valsartan 320 mg-hydrochlorothiazide 12.5 mg tablet 1 tab PO DAILY bp 05/27/21 [History Last Taken 05/28/22] calcium carbonate 600 mg calcium (1,500 mg) tablet 600 mg PO DAILY supplement 11/24/21 [History Last Taken 05/28/22] ergocalciferol (vitamin D2) 1,250 mcg (50,000 unit) capsule 1,250 mcg PO QWEEK supplement 11/24/21 [History Last Taken 05/27/22] citalopram 40 mg tablet 40 mg PO DAILY mood 05/28/22 [History Last Taken 05/27/22] Allergy/AdvReac Type Severity Reaction Status Date / Time cefdinir Allergy Hives Verified 05/28/22 15:02 diphenhydramine HCl Allergy Hives Verified 05/28/22 15:02 [From Benadryl] Sulfa (Sulfonamide Allergy Hives Verified 05/28/22 15:02 Antibiotics) Family History Brother CAD (coronary artery disease) Mother CVA (cerebral vascular accident) CAD (coronary artery disease) Son Hypertension Daughter Hypertension Other Arthritis Cancer Diabetes Family history of CVA Family history of coronary artery disease Family history of hypertension Heart disease High cholesterol Kidney disease Thyroid disorder Surgical History History of bilateral knee replacement History of cholecystectomy History of incision and drainage History of total hysterectomy Hx of cataract extraction Social History household members: spouse housing: house number of children: 2 current occupational status: retired current occupational exposures/hazards: No pets and animals: No Smoking Status: Never smoker alcohol intake: never substance use type: does not use caffeine: Yes Type: tea what type of physical activity do you participate in: none seatbelt use: always do you feel safe at home: Yes additional social history: Does Not Take Aspirin Does Not Take Ibuprofen ROS ROS Narrative Admission Review of Systems: CONSTITUTIONAL: No weight loss, fever, chills, + weakness or fatigue. HEENT: Eyes: No visual loss, blurred vision, double vision or yellow sclerae. Ears, Nose, Throat: No hearing loss, sneezing, congestion, runny nose or sore throat. SKIN: No rash or itching, lesions, wounds. CARDIOVASCULAR: No chest pain, chest pressure or chest discomfort, palpitations, edema, orthopnea, syncopal events. RESPIRATORY: No shortness of breath, cough or sputum, wheezing, hemoptysis. GASTROINTESTINAL: No anorexia, nausea, vomiting or diarrhea, abdominal pain, melena, BRBPR. GENITOURINARY: No dysuria, frequency, urgency or retention. NEUROLOGICAL: Hx migraines, No dizziness, syncope, paralysis, ataxia, numbness or tingling in the extremities, focal weakness, change in bowel or bladder control, seizure. MUSCULOSKELETAL: + muscle, back pain, joint pain or stiffness. HEMATOLOGIC: + anemia, bleeding or bruising. LYMPHATICS: No enlarged nodes. No history of splenectomy. PSYCHIATRIC: + history of depression or anxiety. ENDOCRINOLOGIC: No reports of sweating, cold or heat intolerance. No polyuria or polydipsia. ALLERGIES: + history of hives. Vital Signs Vital Signs Vital Signs: 05/28/22 14:58 Temperature 97.7 F L Temperature Source Temporal Pulse Rate 82 Respiratory Rate 16 Blood Pressure 113/58 L Blood Pressure Mean 76 Weight Weight: 210 lb 5.136 oz Body Mass Index (BMI) 38.5 Physical Exam Narrative Physical Examination: General: Awake, alert, oriented x 3 and cooperative, laying in the ED bed, fatigued, notes pain improved with morphine but worse with any attempted movement of her left lower extremity. Skin: Normal color, normal turgor, no icterus, no cyanosis except staged ecchymoses to the extremities. HEENT: AT/NC, EOMI, PERRLA, mildly dry MM, no carotid bruits or JVD noted. Lungs: Mildly diminished, good bases, appropriate effort, no rales, ronchi or wheezing. Heart: Regular rate and rhythm; no gallop, rub audible. Abdomen: Soft, obese, NTTP, ND, mildly hyperactive BS, no HSM. Extremities: No cyanosis, no clubbing, mild bilateral peripheral ankle not markedly pitting edema, peripheral pulses intact, status post fall with left hip fracture. Neurological: Patient awake, alert, oriented as noted, cognitive function appears baseline intact; pupils equally reactive to light and accommodation, cranial nerves II-XII grossly normal, moving all 4 extremities except expected significant left lower extremity decreased movement secondary to fall with left hip fracture, strength accordingly severely globally decreased. Psychiatric: Affect appears fatigued and mildly uncomfortable otherwise normal, no acute evidence of depressive or anxiety feelings. Results Lab / Micro Data Result Diagrams: 05/28/22 15:35 05/28/22 16:28 Labs: Laboratory Results - last 24 hr 05/28/22 15:35: WBC 8.7, RBC 3.85 L, Hgb 11.1 L, Hct 34.4 L, MCV 89.4, MCH 28.8, MCHC 32.3, RDW Std Deviation 48.8 H, RDW Coeff of Shannon 14.9 H, Plt Count 177, MPV 10.2, Immature Gran % (Auto) 0.700, Neut % (Auto) 81.0 H, Lymph % (Auto) 9.4 L, [place] % (Auto) 7.9, Eos % (Auto) 0.7, Baso % (Auto) 0.3, Absolute Neuts (auto) 7.1, Absolute Lymphs (auto) 0.82 L, Nucleated RBC % 0 05/28/22 15:55: Sodium Cancelled, Potassium Cancelled, Chloride Cancelled, Carbon Dioxide Cancelled, Anion Gap Cancelled, BUN Cancelled, Creatinine Cancelled, Estim Creat Clear Calc Cancelled, Est GFR (MDRD) Af Amer Cancelled, Est GFR (MDRD) Non-Af Cancelled, BUN/Creatinine Ratio Cancelled, Glucose Cancelled, Calcium Cancelled 05/28/22 16:28: Sodium 139, Potassium 5.7 H, Chloride 110 H, Carbon Dioxide 24.0, Anion Gap 5, BUN 31 H, Creatinine 1.14 H, Estim Creat Clear Calc 34.24, Est GFR (MDRD) Af Amer 60, Est GFR (MDRD) Non-Af 50 L, BUN/Creatinine Ratio 27.2 H, Glucose 100, Calcium 8.7 Radiology Impression Hip/Pelvis X-Ray 05/28/22 15:41 IMPRESSION: Left hip fracture Electronically Signed: Ghulam Drummond MD at 16:53 EDT , Assessment & Plan Assessment/Plan (1) Closed fracture of left hip: PLAN: Plan The patient is a 72 y/o WF w/ PMHx: Allergic rhinitis, Hx VTE, Factor V Leiden deficiency, Hypertension, PAF, Chronic kidney disease III unclear subtype, Obesity, CKD stage , VALENTIN on CPAP q HS, Anxiety and Depression, GERD, Chronic normocytic anemia, Anxiety and Depression who presents to the [facility] ED on 05/28/22 with history of gardening and unfortunately bending over and attempting to pull a weed which broke while she was doing so causing her to fall over onto her left hip eventually requiring help and assistance to get up again and and again going outside to put things away with mechanical fall landing on the cement onto her left hip with intractable pain and debility following. #1. General debility, L hip pain s/p mechanical fall w/ L hip fracture: Plain film noting left femoral neck fracture with moderate varus deformity. Orthopedic surgery consulted from ED. Will admit to [facility], maintain NPO on Wednesday at midnight for planned OR Wednesday given most recent Eliquis intake 05/28/22 AM with plan transition this evening at 6 PM to heparin drip per discussion with Dr. Caceres who is aware, continue gentle IVFs once n.p.o. status initiated,, abreu placement, monitor I/Os, frequent positioning, fall precautions, PRN pain/anti-emetic regimen. PT/OT following operative intervention. CM consulted for discharge planning. Per NSQIP given patient advanced age and primarily history of hypertensive disease with required medications patient is acceptable average risk for perioperative complication however has increased above average need for transition to skilled facility or rehab facility following operative intervention. EKG with no concerning findings. BNP pending as noted. We will pursue surgical intervention which was discussed with orthopedic surgery with plan for Eliquis to heparin transition at next dose due and hold prior to OR per orthopedic surgery discretion as far as timeline. #2. PAF: We will continue patient home verapamil regimen, last dose Eliquis 05/28/2020 2 AM, with next dose due will transition to heparin drip given need for operative intervention. 09/24/20 ECHO w/ normal LV systolic function, EF 65%, mild enlarged LA, trivial MVI, trivial TVI with no evidence of diastolic dysfunction. EKG with evidence of sinus rhythm. Patient notes she is active, performs all her own ADLs and denies any issues with dyspnea or chest discomfort. BNP requested and if not marked would pursue case however if significantly elevated will request echocardiogram repeat. #3. History of VTE (DVT, PE) with underlying factor V Leiden deficiency: Pat ient on chronic Eliquis therapy, last dose 05/28/2022 AM, with next dose due will transition to heparin drip given need for operative intervention and will discuss with surgeon need to immediately resume heparin drip with then transition once appropriate to oral anticoagulant therapy. #4. Chronic normal anemia: Admission hemoglobin 11.1, prior baseline more recently 10-11, stable, trend. #5. Chronic Kidney Disease Stage III, unclear subtype: Admission BUN/Cr 31/1.14, baseline renal function primarily 0.8-1.1, repeat BMP in AM. #6. Anxiety and depression/? Bipolar disorder: We will continue patient home amitriptyline, Depakote and citalopram regimen. #7. Allergic rhinitis: We will continue patient home montelukast and levocetirizine regimen. #8. Hypertension: Continue home regimen including verapamil, valsartan, hydrochlorothiazide with hold parameters as needed, PRN hydralazine. #9. Hyperlipidemia: Not on regimen, defer to outpatient. #10. Chronic migraines: Patient receives outpatient monthly galcanexumab injections, recommend continued evaluation/treatment. #11. GERD: We will continue patient home PPI. #12. VALENTIN: CPAP q HS. #13. DVT Prophylaxis: SCDs, hold eliquis, transition at 6 pm to heparin drip. #14. CODE status: Patient GLENNA is her daughter who is present and living will is currently in place. Discussed CODE status at length including difference sanjuana moreno FULL code, DNR-CCA and DNR-CC status. Following discussions about the differences in these status, requested DNR-CCA, no intubation status. Advanced Care Planning Face to Face Time: 16 minutes. Charges/Coding Visit Charges Inpatient E&M: 98970 Init Hosp L3 Procedures Hospitalists Procedures: 66199 Advncd Care Plan 30 Min
[2022-05-28 16:58] VITALS: BP 127/60
[2022-05-28 18:00] VITALS: BP 127/60; PULSE 80; RESP 17; TEMP 36.9; O2SAT 97
[2022-05-28 18:15] VITALS: BMI 36.8
[2022-05-28 18:15] LABS: International Normalized Ratio 1.4; Prothrombin Time (Protime)PT. 16.6 SECONDS (11.7-14.9)
[2022-05-28 18:16] LABS: Partial Thromboplast Time 29.8 Seconds (24.1-36.2)
[2022-05-28 18:20] VITALS: BP 120/50; PULSE 75; RESP 16; TEMP 37; O2SAT 93
[2022-05-28] MEDS: 0.9% Normal Saline 1,000 ML 75 ML IV (18:56)
[2022-05-28] MEDS: 0.9% Saline Lock 10 ML Syringe IV ×2 (18:57→20:19)
[2022-05-28 19:10] VITALS: O2SAT 93
--- NOTE | 2022-05-28 20:01 | NURSING ---
checked with pharmacist regarding wt based nomogram will be corrected on mar based on ptt result, primary rn aware
[2022-05-28] MEDS: oxyCODONE 5 MG Tablet PO (20:18)
[2022-05-28] MEDS: HEPARIN/D5w 25,000 UNITS 25,000 UNITS/250 ML IV.SOLN. 12 UNITS CONT INF (20:54)
[2022-05-28] MEDS: Heparin Injection (Vial) 5,000 UNIT/ML VIAL 6000 UNIT IV (20:55)
--- NOTE | 2022-05-28 21:00 | CPS ---
[1910] Pt. was asked about her CPAP machine. She stated that she wears it, but she isn't able to have in brought in tonight. I told her we could accommodate her with one of our machines, but she politely refused. She stated that the last time she was here, they just placed her on 2L NC at night. I forwarded this to her nurse, and I told her to just call me if she is feeling restless tonight.
[2022-05-28] MEDS: MELATONIN 3 MG TABLET PO (21:21)
[2022-05-28] MEDS: Divalproex (ER) 500 MG Tablet PO (21:21)
[2022-05-28] MEDS: Amitriptyline 25 MG Tablet PO (21:21)
[2022-05-28] MEDS: Senna/Docusate Sodium 1 Tablet 2 TABLET PO (21:21)
[2022-05-28 22:52] VITALS: BP 93/52; PULSE 72; RESP 16; TEMP 36.8; O2SAT 97
[2022-05-29] MEDS: oxyCODONE 5 MG Tablet PO ×4 (01:53→17:32)
[2022-05-29] MEDS: Acetaminophen 325 MG Tablet 650 MG PO ×3 (01:53→18:21)
[2022-05-29 02:35] VITALS: BP 100/56; PULSE 69; RESP 16; TEMP 36.6; O2SAT 96
[2022-05-29 02:53] LABS: Absolute Lymphocyte Count 0.68 X10^3/uL (0.83-4.51); Absolute Neutrophil Count 7.2 X10^3/uL (2.0-7.7); Basophil# 0.01 X10^3/uL; Basophil% 0.1 % (0-1); Eosinophil# 0.06 X10^3/uL; Eosinophils% 0.7 % (0-5); Hematocrit 31.8 % (37-47); Hemoglobin 10.3 g/dL (12.0-15.0); Lymphocyte # 0.68 X10^3/ul (0.83-4.51); Lymphocyte % 7.9 % (19-41); Mean Corp Hgb Conc 32.4 g/dL (32-36); Mean Corpuscular Hgb 29.5 pg (27.0-32.0); Mean Corpuscular Volume 91.1 fL (81-99); Mean Platelet Vol. 9.9 fl (6.2-12.0); Monocyte# 0.65 X10^3/uL; Monocyte% 7.6 % (0-10); NRBC Flagged by Analyzer 0 % (0-5); Neutrophil # 7.15 X10^3/uL (2.7-7.7); Neutrophil % 83.5 % (47-70); Platelet Count 149 K/mm3 (150-450); RBC Distribution Width CV 14.9 % (11.6-14.6); RBC Distribution Width SD 50.1 fl (35.1-43.9); Red Blood Count 3.49 M/mm3 (4.2-5.4); White Blood Count 8.6 K/mm3 (4.4-11.0)
[2022-05-29 03:10] LABS: Partial Thromboplast Time 205.8 Seconds (24.1-36.2)
[2022-05-29 03:11] LABS: ALB/GLOB Ratio 0.9 RATIO (0.9-2.4); AST(SGOT) 123 U/L (15-37); Alanine Aminotransfer ALT/SGPT 102 U/L (13-56); Albumin, Serum 2.9 g/dL (3.2-5.0); Alkaline Phosphatase 93 U/L (45-117); Anion Gap 5 (5-15); BUN 31 mg/dL (7-18); BUN/Creat Ratio 30.4 RATIO (10-20); Calcium,Total 8.4 mg/dL (8.5-10.1); Chloride 107 mmol/L (98-107); Creatinine, Serum 1.02 mg/dL (0.55-1.02); EST Glomerular Filtration Rate 56 mL/min (>60); Est Glom Filt Rate - Afr Amer 68 mL/min (>60); Estimated Creatinine Clearance 38.27 ml/min; Globulin 3.3 g/dL (2.2-4.2); Glucose 122 mg/dL (74-106); Potassium 4.6 mmol/L (3.5-5.1); Protein, Total 6.2 g/dL (6.4-8.2); Sodium Level 138 mmol/L (136-145)
--- NOTE | 2022-05-29 07:16 | PN.HOSP_ITS ---
Objective Data Objective Data Vital Signs: Vital Signs Temp Pulse Resp BP Pulse Ox O2 Del Method O2 Flow Rate 97.9 F 69 16 100/56 L 96 Nasal Cannula 2 05/29/22 02:35 05/29/22 02:35 05/29/22 02:35 05/29/22 02:35 05/29/22 02:35 05/29/22 05:00 05/29/22 05:00 Oxygen Flow Rate (L/min) 2 Oxygen Delivery Method Nasal Cannula Weight: 205 lb 11.06 oz Body Mass Index (BMI) 36.8 Intake & Output: Intake and Output for Last 24 Hours 05/27/22 05/28/22 05/29/22 23:59 23:59 23:59 Intake Total 75.8 / 75.8 Output Total 275 / 275 Balance -275 / -275 75.8 / 75.8 Lab / Micro Data Result Diagrams: 05/29/22 02:45 05/29/22 02:45 Labs: Laboratory Results - last 24 hr 05/28/22 15:35: WBC 8.7, RBC 3.85 L, Hgb 11.1 L, Hct 34.4 L, MCV 89.4, MCH 28.8, MCHC 32.3, RDW Std Deviation 48.8 H, RDW Coeff of Shannon 14.9 H, Plt Count 177, MPV 10.2, Immature Gran % (Auto) 0.700, Neut % (Auto) 81.0 H, Lymph % (Auto) 9.4 L, [place] % (Auto) 7.9, Eos % (Auto) 0.7, Baso % (Auto) 0.3, Absolute Neuts (auto) 7.1, Absolute Lymphs (auto) 0.82 L, Nucleated RBC % 0 05/28/22 15:35: B-Natriuretic Peptide 114.0 H 05/28/22 15:55: Sodium Cancelled, Potassium Cancelled, Chloride Cancelled, Carbon Dioxide Cancelled, Anion Gap Cancelled, BUN Cancelled, Creatinine Cancelled, Estim Creat Clear Calc Cancelled, Est GFR (MDRD) Af Amer Cancelled, Est GFR (MDRD) Non-Af Cancelled, BUN/Creatinine Ratio Cancelled, Glucose Cancelled, Calcium Cancelled 05/28/22 16:28: Sodium 139, Potassium 5.7 H, Chloride 110 H, Carbon Dioxide 24.0, Anion Gap 5, BUN 31 H, Creatinine 1.14 H, Estim Creat Clear Calc 34.24, Est GFR (MDRD) Af Amer 60, Est GFR (MDRD) Non-Af 50 L, BUN/Creatinine Ratio 27.2 H, Glucose 100, Calcium 8.7 05/28/22 17:58: PT 16.6 H, INR 1.4, APTT 29.8 05/29/22 02:45: WBC 8.6, RBC 3.49 L, Hgb 10.3 L, Hct 31.8 L, MCV 91.1, MCH 29.5, MCHC 32.4, RDW Std Deviation 50.1 H, RDW Coeff of Shannon 14.9 H, Plt Count 149 L, MPV 9.9, Immature Gran % (Auto) 0.200, Neut % (Auto) 83.5 H, Lymph % (Auto) 7.9 L, Mckenzie % (Auto) 7.6, Eos % (Auto) 0.7, Baso % (Auto) 0.1, Absolute Neuts (auto) 7.2, Absolute Lymphs (auto) 0.68 L, Nucleated RBC % 0 05/29/22 02:45: Sodium 138, Potassium 4.6, Chloride 107, Carbon Dioxide 26.0, Anion Gap 5, BUN 31 H, Creatinine 1.02, Estim Creat Clear Calc 38.27, Est GFR (MDRD) Af Amer 68, Est GFR (MDRD) Non-Af 56 L, BUN/Creatinine Ratio 30.4 H, Glucose 122 H, Calcium 8.4 L, Total Bilirubin 0.70, AST 123 H, ALT 102 H, Alkaline Phosphatase 93, Total Protein 6.2 L, Albumin 2.9 L, Globulin 3.3, A lbumin/Globulin Ratio 0.9 05/29/22 02:45: APTT 205.8 H* 05/29/22 05:04: APTT 91.0 H* Radiography Diagnostic Testing: Radiology Impression Hip/Pelvis X-Ray 05/28/22 15:41 IMPRESSION: Left hip fracture Electronically Signed: Ghulam Drummond MD at 16:53 EDT Reading Location ID and State: [facility] / [place] , Service support , Assessment & Plan Assessment/Plan (1) Closed fracture of left hip: PLAN: Plan The patient is a 72 y/o WF is being admitted with fall leading to left hip fracture #1. General debility, and mechanical fall due to L hip femoral neck fracture with moderate varus deformity most likely pathological probably osteoporosis: Plain film noting left femoral neck fracture with moderate varus deformity. Orthopedic surgery consulted from ED. Will admit to MS, maintain NPO on Wednesday at midnight for planned OR Wednesday given most recent Eliquis intake 05/28/22 AM with plan transition this evening at 6 PM to heparin drip per discussion with Dr. Caceres who is aware, continue gentle IVFs once n.p.o. status initiated,, abreu placement, monitor I/Os, frequent positioning, fall precautions, PRN pain/anti-emetic regimen. PT/OT following operative intervention. CM consulted for discharge planning. Per NSQIP given patient advanced age and primarily history of hypertensive dis ease with required medications patient is acceptable average risk for perioperative complication however has increased above average need for transition to skilled facility or rehab facility following operative intervention. EKG with no concerning findings. BNP pending as noted. We will pursue surgical intervention which was discussed with orthopedic surgery with plan for Eliquis to heparin transition at next dose due and hold prior to OR per orthopedic surgery discretion as far as timeline. #2. PAF: [id number] score calculated is 3 based on history of hypertension, age and female. Patient does not have history of DM type II stroke, ME or CHF. Continue verapamil. Last echo 09/24/20 reported normal LV systolic function, EF 65%, mild enlarged LA, trivial MVI, trivial TVI with no evidence of diastolic dysfunction. EKG with evidence of sinus rhythm. Patient notes she is active, performs all her own ADLs and denies any issues with dyspnea or chest discomfort. #3. History of VTE (DVT, PE) with underlying factor V Leiden deficiency: Patient did not had recent DVT/PE in last 3 months. Bridging heparin drip only recommended in recent 3 months of VTE, severe thrombophilia like protein C or S deficiency or Antithrombin, antiphospholipid antibodies or multiple thro mbophilic abnormalities. She does not fit in this category. Heparin drip discontinued. Does not need bridging heparin therapy. #4. Chronic normal anemia: Admission hemoglobin 11.1, prior baseline more recently 10-11, stable, trend. #5. Chronic Kidney Disease Stage III, unclear subtype: Admission BUN/Cr 31/1.14, baseline renal function primarily 0.8-1.1, repeat BMP in AM. #6. Anxiety and depression/? Bipolar disorder: We will continue patient home amitriptyline, Depakote and citalopram regimen. #7. Allergic rhinitis: We will continue patient home montelukast and levocetirizine regimen. #8. Hypertension: Continue home regimen including verapamil, valsartan, hydrochlorothiazide with hold parameters as needed, PRN hydralazine. #9. Hyperlipidemia: Not on regimen, defer to outpatient. #10. Chronic migraines: Patient receives outpatient monthly galcanexumab injections, recommend continued evaluation/treatment. #11. GERD: We will continue patient home PPI. #12. VALENTIN: CPAP q HS. #13. DVT Prophylaxis: SCDs, hold eliquis, transition at 6 pm to heparin drip. #14. CODE status: Patient GLENNA is her daughter who is present and living will is currently in place. Discussed CODE status at length including difference between FULL code, DNR-CCA and DNR-CC status. Following discussions about the differences in these status, requested DNR-CCA, no intubation status. Advanced Care Planning Face to Face Time: 16 minutes.
[2022-05-29 07:33] VITALS: BP 118/65; PULSE 66; RESP 18; TEMP 36.4; O2SAT 98
[2022-05-29] MEDS: Potassium Chloride Oral Tablet 20 MEQ PO ×2 (07:34→16:30)
[2022-05-29] MEDS: Verapamil SR 240 MG Tablet PO (07:35)
[2022-05-29] MEDS: Citalopram 40 MG TABLET PO (07:35)
[2022-05-29] MEDS: Multivitamins,Therapeutic Tablet 1 TABLET PO (07:35)
[2022-05-29] MEDS: Loratadine 10 MG Tablet PO (07:35)
[2022-05-29] MEDS: Montelukast 10 MG Tablet PO (07:36)
[2022-05-29] MEDS: Pantoprazole Sodium 20 MG Tablet PO (07:36)
[2022-05-29] MEDS: Losartan Potassium 100 MG Tablet PO (07:36)
[2022-05-29] MEDS: hydroCHLOROthiazide 12.5mg 12.5 MG PO (07:36)
[2022-05-29] MEDS: Senna/Docusate Sodium 1 Tablet 2 TABLET PO ×2 (07:36→22:13)
[2022-05-29] MEDS: 0.9% Normal Saline 1,000 ML 75 ML IV ×2 (08:07→21:32)
[2022-05-29 08:28] VITALS: O2SAT 95
--- NOTE | 2022-05-29 11:30 | CASEMGMT ---
RN KERRI FILL PLANT OPERATOR CM to room to meet with patient for initial transition planning/care coordination assessment. ESTEFANÍA MANNING introduced self and role at [facility]. Pt voices understanding and consents to assessment at this time. Pt resting in bed in no distress at this time. Daughter, Pau, @ bedside and pt agreeable to her remaining present during assessment. Pt is A/O at this time and answers all questions appropriately. Care providers, pharmacy, and demographics verified/updated at this time. PCP: Dr Riojas Specialists: Dr Garzon-cardiology, Dr Nagy-ENT, Magnolia Cerda/PA, neurology in [place], [place], Dr Munoz-pain mgmt Preferred Pharmacy: [facility] Insurance: [facility], [facility] Prescription Benefit: Yes Living Will/HPOA: Has both LW and HPOA, who is her , Wil. LNOK: , Wil. Son, Eduin. Dtr, Pau Living Arrangements: Lives w/her in 2-story home w/FFSU. Ramp entrance. Pt independent w/ADL's and IADL's prior to fall/injury. Transportation: Pt drove prior to fall/injury DME: States has the following DME: shower chair, RTS, grab bars, CPAP, cane. Pt also has available, but was not using: Walker (no wheels), W/C, Hospital bed. HHC/SNF: Hx: [facility] and [facility]. Discussed discharge planning. Pt wishes to go to a SNF or RU @ discharge. A list of SNF providers including quality and resource use data and consistent with the patient?s preferred geographic region, medical needs, and insurance network were provided from the [employer] Guide. Pt states she wishes to either go to [facility] or [facility]. JETT Fisher, made aware. PLAN: [facility] or [facility], pending acceptance and when medically ready Татьяна ROCKWELL RN, CM
[2022-05-29 12:41] LABS: Partial Thromboplast Time 28.2 Seconds (24.1-36.2)
--- NOTE | 2022-05-29 12:41 | PCM.CONS.GEN ---
Assessment & Plan Assessment/Plan (1) Closed fracture of left hip: PLAN: Natural history of the disease process and treatment options were discussed the patient and her daughter who was at bedside. Based on the fracture pattern she is not a candidate for close reduction percutaneous pinning. Therefore we discussed partial versus total hip replacement. Based on patient's health and activity level I did recommend partial hip replacement as an appropriate treatment option. She does have displaced femoral neck fracture subcapital nature on the x-rays with complete displacement with osteopenic appearance of bone and only mild joint space narrowing. In addition she denies any history of left hip pain prior to this fall. At this time we have agreed to proceed with a partial left hip replacement as the appropriate treatment option. Risks involved with the surgery include but onto blood loss, DVTs, PEs, nervous damage infection, the risk of anesthesia including loss of life, dislocations, intraoperative and postoperative as well as other perioperative fractures and leg length discrepancies. Patient and family agree. We will make the patient n.p.o. after midnight. We do have to wait 48 hours after her last dose of Eliquis which was yesterday morning at 730 so we will proceed with surgery tomorrow morning. Patient is adequately consented at this time. We will plan on Ancef 2 g preoperatively for prophylaxis. Patient has hives to previous cephalosporins however benefits of cephalosporins outweigh risks. (2) Anemia: PLAN: Patient's hemoglobin is 10.3. She is anemic for female patient. Based on this I placed patient on iron supplements with folic acid she will likely need these postoperatively. Likely related to chronic anemia as well as acute blood loss related to the fracture itself. (3) Malnourished: PLAN: Patient's albumin is 2.9 which signifies orthopedic malnourishment and risk for postoperative complications. Based on this I placed patient on protein supplements/Ensure which she will need to continue postoperatively. Finally I would recommend nutrition consult on this patient. HPI Consult Data Date of Consult: 05/29/22 HPI Narrative Reason for Consultation: Left hip pain HPI Narrative: DIONTE SANCHEZ, is a 72 F w/ PMHx: Allergic rhinitis, Hx VTE, Factor V Leiden deficiency, Hypertension, PAF, Chronic kidney disease III unclear subtype, Obesity, CKD stage , VALENTIN on CPAP q HS, Anxiety and Depression, GERD, Chronic normocytic anemia, Anxiety and Depression who presents with left hip pain. Patient reports that she is a primary caregiver to her . They both live at their home. 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 She was out working in the garden/flower beds yesterday when she had 2 falls. After the first fall she needed help getting up. She has knee replacements with decreased range of motion. After the second fall she was unable to get up again but had intractable left hip pain. She was brought to the emergency department where she was found to have a left hip fracture. Patient reports severe pain in the left hip and groin worse with motion better with immobilization. No associated numbness and tingling. Does radiate down her leg. Her daughter is at the bedside today and confirms her history. She does use a walker or cane on occasion but tries to get by without it where possible. [facility] Medical History Allergies Anxiety Arthritis Atrial fibrillation Cardiology follow-up encounter Cellulitis of left lower leg CKD (chronic kidney disease) CKD (chronic kidney disease) CPAP (continuous positive airway pressure) dependence Depression DVT (deep venous thrombosis) Essential hypertension Factor V deficiency Fall as cause of accidental injury at home as place of occurrence Fall due to ice or snow Family history of coronary artery disease Family history of CVA Family history of hypertension Gastric reflux Head injury without concussion or intracranial hemorrhage Headache Hearing problem Hematoma of left lower extremity High cholesterol History of atrial fibrillation History of DVT (deep vein thrombosis) History of edema History of pain when walking History of stress test Hx of echocardiogram Hyperlipidemia Hypertension Injury of back Injury of head and neck 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 lower leg with complication 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 Long-term use of high-risk medication Migraine headache Non-smoker Obesity, Class III, BMI 40-49.9 (morbid obesity) Open wound Open wound of left lower leg with complication VALENTIN (obstructive sleep apnea) Paroxysmal atrial fibrillation Skin necrosis Syncope Traumatic ulcer of left lower extremity Vision problems Walker as ambulation aid Wears glasses Wears hearing aid Home Medications levocetirizine 5 mg tablet 5 mg PO DAILY allergies 09/29/13 [History Last Taken 05/27/22] montelukast 10 mg tablet 10 mg PO DAILY Allergies 09/29/13 [History Last Taken 05/28/22] omeprazole 20 mg capsule,delayed release 20 mg PO DAILY GERD 09/29/13 [History Last Taken 05/28/22] potassium chloride 20 mEq tablet,extended release(part/cryst) 20 meq PO BID Supplement 09/29/13 [History Last Taken 05/28/22] verapamil 240 mg 24 hr capsule,extended release 240 mg PO DAILY BP 09/29/13 [History Last Taken 05/27/22] amitriptyline 25 mg tablet 25 mg PO QHS Mood 10/25/19 [History Last Taken 05/27/22] galcanezumab-gnlm 120 mg/mL subcutaneous syringe (Emgality) 120 mg subcut QMONTH Ask 10/25/19 [History Last Taken 05/23/22] multivitamin 1 tab PO DAILY Supplement 04/26/20 [History Last Taken 05/27/22] divalproex 500 mg tablet,extended release 24 hr (Depakote ER) 500 mg PO QHS Ask 01/31/21 [History Last Taken 05/27/22] apixaban 5 mg tablet 5 mg PO BID Blood thinner 02/21/21 [History Last Taken 05/28/22] acetaminophen 500 mg tablet 1,000 mg PO Q6H PRN PRN Pain Score 1-5 #0 tabs 03/11/21 [Rx Last Taken 05/28/22] valsartan 320 mg-hydrochlorothiazide 12.5 mg tablet 1 tab PO DAILY bp 05/27/21 [History Last Taken 05/28/22] calcium carbonate 600 mg calcium (1,500 mg) tablet 600 mg PO DAILY supplement 11/24/21 [History Last Taken 05/28/22] ergocalciferol (vitamin D2) 1,250 mcg (50,000 unit) capsule 1,250 mcg PO QWEEK supplement 11/24/21 [History Last Taken 05/27/22] citalopram 40 mg tablet 40 mg PO DAILY mood 05/28/22 [History Last Taken 05/27/22] Allergy/AdvReac Type Severity Reaction Status Date / Time cefdinir Allergy Hives Verified 05/28/22 15:02 diphenhydramine HCl Allergy Hives Verified 05/28/22 15:02 [From Benadryl] Sulfa (Sulfonamide Allergy Hives Verified 05/28/22 15:02 Antibiotics) Family History Brother CAD (coronary artery disease) Mother CVA (cerebral vascular accident) CAD (coronary artery disease) Son Hypertension Daughter Hypertension Other Arthritis Cancer Diabetes Family history of CVA Family history of coronary artery disease Family history of hypertension Heart disease High cholesterol Kidney disease Thyroid disorder Surgical History History of bilateral knee replacement History of cholecystectomy History of incision and drainage History of total hysterectomy Hx of cataract extraction Social History household members: spouse housing: house number of children: 2 current occupational status: retired current occupational exposures/hazards: No pets and animals: No Smoking Status: Never smoker alcohol intake: never substance use type: does not use caffeine: Yes Type: tea what type of physical activity do you participate in: none seatbelt use: always do you feel safe at home: Yes additional social history: Does Not Take Aspirin Does Not Take Ibuprofen ROS Constitutional Constitutional: Reports systems reviewed and no addt'l complaints, except as documented and as per HPI Eyes Eyes: Reports systems reviewed and no addt'l complaints, except as documented ENT HEENT: Reports systems reviewed and no addt'l complaints, except as documented Cardiovascular Cardiovascular: Reports systems reviewed and no addt'l complaints, except as documented Respiratory/Chest Respiratory/Chest: Reports systems reviewed and no addt'l complaints, except as documented Gastrointestinal Gastrointestinal: Reports systems reviewed and no addt'l complaints, except as documented Genitourinary Genitourinary: Reports systems reviewed and no addt'l complaints, except as documented Musculoskeletal Musculoskeletal: Reports systems reviewed and no addt'l complaints, except as documented Integumentary Integumentary: Reports systems reviewed and no addt'l complaints, except as documented Neurologic Neurologic: Reports systems reviewed and no addt'l complaints, except as documented Psychiatric Psychiatric: Reports systems reviewed and no addt'l complaints, except as documented Endocrine Endocrinology: Reports systems reviewed and no addt'l complaints, except as documented Hematologic/Lymphatic Hematologic/Lymphatic: Reports systems reviewed and no addt'l complaints, except as documented Allergic/Immunologic Allergic/Immunologic: Reports systems reviewed and no addt'l complaints, except as documented Physical Exam Const alert, oriented x3 and no apparent distress Constitutional Narrative: Obese General Appearance: cooperative and well kempt Orientation / Consciousness: awake Exam Limitations: physical limitations Nutritional Appearance: overweight HEENT normocephalic Eyes PERRL Neck No nuchal rigidity Resp normal respiratory effort Cardio Cardio Narrative: Regular pulse rate GI non-distended Extremity Extremity Narrative: Left lower extremity: Skin clean, dry, and intact. Patient does have a previous lateral leg wound which is well-healed Limb is shortened and externally rotated Motor is intact dorsiflexion, EHL and plantar flexion. Sensation is intact to light touch saphenous, gurwinder,l superficial peroneal, deep peroneal and tibial distributions. Calves are soft and supple. Neuro oriented x3 and CN's II-XII intact bilaterally Psych mental status grossly normal Medical Records Data Attestation: I reviewed the patient's medical records Lab / Micro Data Attestation: I reviewed the patient's lab results. Result Diagrams: 05/29/22 02:45 05/29/22 02:45 Labs: Laboratory Results - last 24 hr 05/28/22 15:35: WBC 8.7, RBC 3.85 L, Hgb 11.1 L, Hct 34.4 L, MCV 89.4, MCH 28.8, MCHC 32.3, RDW Std Deviation 48.8 H, RDW Coeff of Shannon 14.9 H, Plt Count 177, MPV 10.2, Immature Gran % (Auto) 0.700, Neut % (Auto) 81.0 H, Lymph % (Auto) 9.4 L, [place] % (Auto) 7.9, Eos % (Auto) 0.7, Baso % (Auto) 0.3, Absolute Neuts (auto) 7.1, Absolute Lymphs (auto) 0.82 L, Nucleated RBC % 0 05/28/22 15:35: B-Natriuretic Peptide 114.0 H 05/28/22 15:55: Sodium Cancelled, Potassium Cancelled, Chloride Cancelled, Carbon Dioxide Cancelled, Anion Gap Cancelled, BUN Cancelled, Creatinine Cancelled, Estim Creat Clear Calc Cancelled, Est GFR (MDRD) Af Amer Cancelled, Est GFR (MDRD) Non-Af Cancelled, BUN/Creatinine Ratio Cancelled, Glucose Cancelled, Calcium Cancelled 05/28/22 16:28: Sodium 139, Potassium 5.7 H, Chloride 110 H, Carbon Dioxide 24.0, Anion Gap 5, BUN 31 H, Creatinine 1.14 H, Estim Creat Clear Calc 34.24, Est GFR (MDRD) Af Amer 60, Est GFR (MDRD) Non-Af 50 L, BUN/Creatinine Ratio 27.2 H, Glucose 100, Calcium 8.7 05/28/22 17:58: PT 16.6 H, INR 1.4, APTT 29.8 05/29/22 02:45: WBC 8.6, RBC 3.49 L, Hgb 10.3 L, Hct 31.8 L, MCV 91.1, MCH 29.5, MCHC 32.4, RDW Std Deviation 50.1 H, RDW Coeff of Shannon 14.9 H, Plt Count 149 L, MPV 9.9, Immature Gran % (Auto) 0.200, Neut % (Auto) 83.5 H, Lymph % (Auto) 7.9 L, [place] % (Auto) 7.6, Eos % (Auto) 0.7, Baso % (Auto) 0.1, Absolute Neuts (auto) 7.2, Absolute Lymphs (auto) 0.68 L, Nucleated RBC % 0 05/29/22 02:45: Sodium 138, Potassium 4.6, Chloride 107, Carbon Dioxide 26.0, Anion Gap 5, BUN 31 H, Creatinine 1.02, Estim Creat Clear Calc 38.27, Est GFR (MDRD) Af Amer 68, Est GFR (MDRD) Non-Af 56 L, BUN/Creatinine Ratio 30.4 H, Glucose 122 H, Calcium 8.4 L, Total Bilirubin 0.70, AST 123 H, ALT 102 H, Alkaline Phosphatase 93, Total Protein 6.2 L, Albumin 2.9 L, Globulin 3.3, Albumin/Globulin Ratio 0.9 05/29/22 02:45: APTT 205.8 H* 05/29/22 05:04: APTT 91.0 H* Radiology Impression Hip/Pelvis X-Ray 05/28/22 15:41 IMPRESSION: Left hip fracture Electronically Signed: Ghulam Drummond MD at 16:53 EDT Reading Location ID and State: [facility] / [place] , Service support ,
--- NOTE | 2022-05-29 12:53 | PN.HOSP_ITS ---
Documented by User: Mignon Coyle NP, SENIOR SEARCH MARKETING ANALYST-C 05/29/22 13:20 Subjective Subjective Patient seen and examined. Currently complains of hip pain following sitting up for eating breakfast. Denies other associated symptoms or complaints. Plan for OR tomorrow. Objective Data Objective Data Vital Signs: Vital Signs Temp Pulse Resp BP Pulse Ox O2 Del Method O2 Flow Rate 97.5 F L 66 18 118/65 95 Nasal Cannula 2 05/29/22 07:33 05/29/22 07:33 05/29/22 07:33 05/29/22 07:33 05/29/22 08:28 05/29/22 08:28 05/29/22 08:28 Oxygen Flow Rate (L/min) 2 Oxygen Delivery Method Nasal Cannula Weight: 205 lb 11.06 oz Body Mass Index (BMI) 36.8 Intake & Output: Intake and Output for Last 24 Hours 05/27/22 05/28/22 05/29/22 23:59 23:59 23:59 Intake Total 1656.97 / 1656.97 Output Total 275 / 275 650 / 650 Balance -275 / -275 1006.97 / 1006.97 Lab / Micro Data Result Diagrams: 05/29/22 02:45 05/29/22 02:45 Labs: Laboratory Results - last 24 hr 05/28/22 15:35: WBC 8.7, RBC 3.85 L, Hgb 11.1 L, Hct 34.4 L, MCV 89.4, MCH 28.8, MCHC 32.3, RDW Std Deviation 48.8 H, RDW Coeff of Shannon 14.9 H, Plt Count 177, MPV 10.2, Immature Gran % (Auto) 0.700, Neut % (Auto) 81.0 H, Lymph % (Auto) 9.4 L, Bowie % (Auto) 7.9, Eos % (Auto) 0.7, Baso % (Auto) 0.3, Absolute Neuts (auto) 7.1, Absolute Lymphs (auto) 0.82 L, Nucleated RBC % 0 05/28/22 15:35: B-Natriuretic Peptide 114.0 H 05/28/22 15:55: Sodium Cancelled, Potassium Cancelled, Chloride Cancelled, Carbon Dioxide Cancelled, Anion Gap Cancelled, BUN Cancelled, Creatinine Cancelled, Estim Creat Clear Calc Cancelled, Est GFR (MDRD) Af Amer Cancelled, Est GFR (MDRD) Non-Af Cancelled, BUN/Creatinine Ratio Cancelled, Glucose Cancelled, Calcium Cancelled 05/28/22 16:28: Sodium 139, Potassium 5.7 H, Chloride 110 H, Carbon Dioxide 2 4.0, Anion Gap 5, BUN 31 H, Creatinine 1.14 H, Estim Creat Clear Calc 34.24, Est GFR (MDRD) Af Amer 60, Est GFR (MDRD) Non-Af 50 L, BUN/Creatinine Ratio 27.2 H, Glucose 100, Calcium 8.7 05/28/22 17:58: PT 16.6 H, INR 1.4, APTT 29.8 05/29/22 02:45: WBC 8.6, RBC 3.49 L, Hgb 10.3 L, Hct 31.8 L, MCV 91.1, MCH 29.5, MCHC 32.4, RDW Std Deviation 50.1 H, RDW Coeff of Shannon 14.9 H, Plt Count 149 L, MPV 9.9, Immature Gran % (Auto) 0.200, Neut % (Auto) 83.5 H, Lymph % (Auto) 7.9 L, Bowie % (Auto) 7.6, Eos % (Auto) 0.7, Baso % (Auto) 0.1, Absolute Neuts (auto) 7.2, Absolute Lymphs (auto) 0.68 L, Nucleated RBC % 0 05/29/22 02:45: Sodium 138, Potassium 4.6, Chloride 107, Carbon Dioxide 26.0, Anion Gap 5, BUN 31 H, Creatinine 1.02, Estim Creat Clear Calc 38.27, Est GFR (MDRD) Af Amer 68, Est GFR (MDRD) Non-Af 56 L, BUN/Creatinine Ratio 30.4 H, Glucose 122 H, Calcium 8.4 L, Total Bilirubin 0.70, AST 123 H, ALT 102 H, Alkaline Phosphatase 93, Total Protein 6.2 L, Albumin 2.9 L, Globulin 3.3, Albumin/Globulin Ratio 0.9 05/29/22 02:45: APTT 205.8 H* 05/29/22 05:04: APTT 91.0 H* 05/29/22 12:25: APTT 28.2 Radiography Diagnostic Testing: Radiology Impression Hip/Pelvis X-Ray 05/28/22 15:41 IMPRESSION: Left hip fracture Electronically Signed: Ghulam Drummond MD at 16:53 EDT , Physical Exam Const alert and oriented x3 Orientation / Consciousness: awake, oriented to person, oriented to place and oriented to time HEENT normocephalic and moist oral mucous membranes Eyes PERRL, EOMs intact bilaterally and conjunctivae normal Neck no lymphadenopathy Resp normal respiratory effort and clear to auscultation bilaterally Cardio regular rate, regular rhythm and no murmurs Peripheral Pulses: pulses 2+ throughout GI normal to inspection, nondistended, normoactive bowel sounds, non-tender and non-distended Extremity normal to inspection Extremity Narrative: Left hip pain. Skin no rashes or lesions noted Lesions: no lesions Rashes: no rashes Trauma: no lacerations or abrasions Neuro CN's II-XII intact bilaterally, no focal motor deficits, no sensory deficits noted and deep tendon reflexes 2+ bilaterally Psych mental status grossly normal and affect normal Assessment & Plan Assessment/Plan (1) Closed fracture of left hip: PLAN: Plan 1. Acute traumatic left hip fracture secondary to mechanical fall-orthopedic medicine on consult. Plan for OR tomorrow. Eliquis on hold. PT/OT. Risk assessment completed on admission and patient cleared for surgery. Patient amendable to rehab unit if approved. 2. Paroxysmal atrial fibrillation-Eliquis on hold. Continue rate control leisa men. 3. History of DVT/PE with underlying factor V Leiden deficiency-Eliquis on hold. Resume following surgery. No indication for heparin bridge at this time. 4. Chronic normocytic anemia-stable, trend CBC. 5. Chronic kidney disease stage IIIa-at baseline. Trend BMP. 6. Anxiety/depression-on amitriptyline, Depakote and citalopram. 7. Hypertension-stable, continue verapamil, valsartan, HCTZ. 8. Hyperlipidemia-not on statin. 9. Chronic migraines-on Galcanexumab injections as outpatient. 10. GERD-continue PPI. 11. VALENTIN-CPAP nightly. DVT prophylaxis-SCDs, resume Eliquis when okay per surgery This patient was seen by LIZ Rojo under the supervision of Dr. Seymour. Time spent examining patient, reviewing data and subsequent management of care: 15 minutes Documented by User: Dr. Logan Seymour MD 05/29/22 15:45 Subjective Subjective Patient seen and examined. Currently complains of hip pain following sitting up for eating breakfast. Denies other associated symptoms or complaints. Plan for OR tomorrow. Seen and examined. Patient states she fell on that she was trying to bend down. She lost her balance. She had fracture of left hip due to fall from standing height probably due to osteoporosis. She has history of paroxysmal A. fib and factor V Leiden DVT and PE. Her last episode of PE was about 10 years ago. She does not remember whether she had genetic testing but he states he is homozygous and her daughter is heterozygous. Objective Data Lab / Micro Data Result Diagrams: 05/29/22 02:45 05/29/22 02:45 Labs: Laboratory Results - last 24 hr 05/28/22 15:35: WBC 8.7, RBC 3.85 L, Hgb 11.1 L, Hct 34.4 L, MCV 89.4, MCH 28.8, MCHC 32.3, RDW Std Deviation 48.8 H, RDW Coeff of Shannon 14.9 H, Plt Count 177, MPV 10.2, Immature Gran % (Auto) 0.700, Neut % (Auto) 81.0 H, Lymph % (Auto) 9.4 L, Bowie % (Auto) 7.9, Eos % (Auto) 0.7, Baso % (Auto) 0.3, Absolute Neuts (auto) 7.1, Absolute Lymphs (auto) 0.82 L, Nucleated RBC % 0 05/28/22 15:35: B-Natriuretic Peptide 114.0 H 05/28/22 16:28: Sodium 139, Potassium 5.7 H, Chloride 110 H, Carbon Dioxide 24.0, Anion Gap 5, BUN 31 H, Creatinine 1.14 H, Estim Creat Clear Calc 34.24, Est GFR (MDRD) Af Amer 60, Est GFR (MDRD) Non-Af 50 L, BUN/Creatinine Ratio 27.2 H, Glucose 100, Calcium 8.7 05/28/22 17:58: PT 16.6 H, INR 1.4, APTT 29.8 05/29/22 02:45: WBC 8.6, RBC 3.49 L, Hgb 10.3 L, Hct 31.8 L, MCV 91.1, MCH 29.5, MCHC 32.4, RDW Std Deviation 50.1 H, RDW Coeff of Shannon 14.9 H, Plt Count 149 L, MPV 9.9, Immature Gran % (Auto) 0.200, Neut % (Auto) 83.5 H, Lymph % (Auto) 7.9 L, Bowie % (Auto) 7.6, Eos % (Auto) 0.7, Baso % (Auto) 0.1, Absolute Neuts (auto) 7.2, Absolute Lymphs (auto) 0.68 L, Nucleated RBC % 0 05/29/22 02:45: Sodium 138, Potassium 4.6, Chloride 107, Carbon Dioxide 26.0, Anion Gap 5, BUN 31 H, Creatinine 1.02, Estim Creat Clear Calc 38.27, Est GFR (MDRD) Af Amer 68, Est GFR (MDRD) Non-Af 56 L, BUN/Creatinine Ratio 30.4 H, Glucose 122 H, Calcium 8.4 L, Total Bilirubin 0.70, AST 123 H, ALT 102 H, Alkaline Phosphatase 93, Total Protein 6.2 L, Albumin 2.9 L, Globulin 3.3, Albumin/Globulin Ratio 0.9 05/29/22 02:45: APTT 205.8 H* 05/29/22 05:04: APTT 91.0 H* 05/29/22 12:25: APTT 28.2 Physical Exam Narrative Physical exam General: Alert, Oriented x3, Cooperative HEENT: Atraumatic, PERRLA, EOMI, Normocephalic Oral: No Gingival or Mucosal Lesions/ Ulcerations Neck: Supple, No JVD, Negative Carotid Bruits Lungs: Air entry diminished in bilateral lung bases. No crepitation/rhonchi Cardiovascular: Regular rate, Regular Rhythm, Normal S1, Normal S2, no murmur gallop or rub. Abdomen: Bowel Sounds Present, Soft, Non Tender, Non-Distended : No renal angle tenderness. No suprapubic tenderness. Extremities: No edema, Capillary Refill Less than 3 Seconds Skin: No rashes, No breakdown Musculoskeletal: Tenderness over left hip, groin and pelvic region. Left lower extremity externally rotated. Neurological: Cranial nerves II-XII grossly intact, DTR 2+/4 and Symmetrical, no focal neurological deficit. Psych/Mental Status: Normal Affect, Appropriate. Assessment & Plan Assessment/Plan (1) Closed fracture of left hip: PLAN: Plan 1. Acute traumatic left hip fracture secondary to mechanical fall-orthopedic medicine on consult. Plan for OR tomorrow. Eliquis on hold. PT/OT. Risk assessment completed on admission and patient cleared for surgery. Patient amendable to rehab unit if approved. 2. Paroxysmal atrial fibrillation-Eliquis on hold. Continue rate control regimen. 3. History of DVT/PE with underlying factor V Leiden deficiency-Eliquis on hold. Resume following surgery. No indication for heparin bridge at this time. 4. Chronic normocytic anemia-stable, trend CBC. 5. Chronic kidney disease stage IIIa-at baseline. Trend BMP. 6. Anxiety/depression-on amitriptyline, Depakote and citalopram. 7. Hypertension-stable, continue verapamil, valsartan, HCTZ. 8. Hyperlipidemia-not on statin. 9. Chronic migraines-on Galcanexumab injections as outpatient. 10. GERD-continue PPI. 11. VALENTIN-CPAP nightly. DVT prophylaxis-SCDs, resume Eliquis when okay per surgery This patient was seen by LIZ Rojo under the supervision of Dr. Seymour. Time spent examining patient, reviewing data and subsequent management of care: 15 minutes This patient was seen in conjunction with Mignon LYONS. I have independently interviewed and examined the patient and reviewed pertinent history, examination findings, laboratory and plan of management. I have reviewed the note and agree with the documented findings with the few additional points. In brief, patient is admitted for acute left hip fracture secondary to mechanical fall most probably pathological as it was subtle fall. Orthopedic surgery is consulted. Her diagnosis and assessment and plan as follows: 1.? General debility of left hip due to mechanical fall resulting into left hip fracture with moderate varus deformity. : Plain film noting left femoral neck fracture with moderate varus deformity.? Patient had good preoperative functional activity as she was ADL independent and MET more than 4. Patient does not get chest pain pressure or tightness or shortness of breath on moderate exertion. NSQIP was completed by admitting hospitalist. EKG no acute changes, sinus rhythm. Recent guidelines for bridging therapy reviewed. Bridging heparin therapy is recommended if patient has headache treat thrombogenic conditions including protein C, protein S, Antithrombin antibody, antiphospholipid antibodies or multiple hereditary conditions along with recent DVT/PE within 3 months. Her [id number] score calculated 3. She did not have history of ME, coronary artery disease, CHF or stroke. Therefore, she did not meet the criteria for bridging IV heparin or Lovenox therapy. Resume Eliquis as soon as hemostasis is controlled as DOAC has rapid onset of action of 1 to 3 hours. 2. Paroxysmal A. fib: Currently patient is in sinus rhythm heart rate controlled. 09/24/20 ECHO w/ normal LV systolic function, EF 65%, mild enlarged LA, trivial MVI, trivial TVI with no evidence of diastolic dysfunction.? EKG with evidence of sinus rhythm.? 3. History of DVT and PE with factor V Leiden deficiency: As mentioned above. Last dose of Eliquis was morning of 05/28/2022 therefore patient can be taken for surgery tomorrow AM. 4. CKD stage III 3A 5. Other comorbidities include chronic normocytic normochromic anemia, anxiety and depression, bipolar disorder, hypertension, dyslipidemia, chronic migraine, GERD, obstructive sleep apnea on CPAP: Home medication reconciliation done CODE STATUS: DNRCC arrest with no intubation Total time of the visit including total time spent in counseling or coordination of care, (more than 50% of the total time, spent in obtaining medical information from nurses and other ancillary care providers,explaining to the patient about labs, imaging, diagnosis and management of active complex medical conditions), , review of labs and imaging is 40 minutes. SERENA Crow spent 15 minutes, I spent 25 minutes Charges/Coding Visit Charges Inpatient E&M: 88943 [facility] L3
--- NOTE | 2022-05-29 13:14 | CASEMGMT ---
Social Work JETT received referral from RNCM that pt is interested in TCU or RU. JETT spoke with Jodie in [facility] post acute care. Pt would likely be able to go to either unit. Pt surgery is scheduled for Wednesday. Pt will be assess on Wednesday after pt has had surgery and therapy to determine discharge plan. JETT met with pt to discuss the discharge plan. Pt is agreeable to either unit and concurs to waiting to see how she does after surgery to determine level of care at discharge. Plan: TCU vs. RU, pending surgery and therapy NYASIA Carty
[2022-05-29 13:30] VITALS: BP 97/46; PULSE 70; RESP 18; TEMP 36.4; O2SAT 94
[2022-05-29] MEDS: Ferrous Sulfate 325 MG Tablet PO (16:30)
[2022-05-29 20:00] VITALS: BP 107/56; PULSE 71; RESP 16; TEMP 37.4; O2SAT 94
[2022-05-29] MEDS: Morphine 4 MG/ML Syringe IV (20:02)
[2022-05-29] MEDS: 0.9% Saline Lock 10 ML Syringe IV (20:03)
[2022-05-29] MEDS: Amitriptyline 25 MG Tablet PO (22:12)
[2022-05-29] MEDS: Divalproex (ER) 500 MG Tablet PO (22:12)
[2022-05-30] VITALS (11 sets, daily range): BP systolic 86–133; BP diastolic 41–63; PULSE 73–93; RESP 14–18; TEMP 36.3–37.3; O2SAT 90–99; BMI 37.3
[2022-05-30] MEDS: Morphine 4 MG/ML Syringe IV (05:34)
[2022-05-30] MEDS: 0.9% Saline Lock 10 ML Syringe IV ×2 (05:35→13:25)
[2022-05-30 07:10] LABS: Absolute Lymphocyte Count 0.84 X10^3/uL (0.83-4.51); Absolute Neutrophil Count 5.2 X10^3/uL (2.0-7.7); Basophil# 0.01 X10^3/uL; Basophil% 0.1 % (0-1); Eosinophil# 0.32 X10^3/uL; Eosinophils% 4.5 % (0-5); Hematocrit 32.2 % (37-47); Hemoglobin 10.2 g/dL (12.0-15.0); Lymphocyte # 0.84 X10^3/ul (0.83-4.51); Lymphocyte % 11.7 % (19-41); Mean Corp Hgb Conc 31.7 g/dL (32-36); Mean Corpuscular Hgb 29.2 pg (27.0-32.0); Mean Corpuscular Volume 92.3 fL (81-99); Mean Platelet Vol. 10.1 fl (6.2-12.0); Monocyte# 0.74 X10^3/uL; Monocyte% 10.3 % (0-10); NRBC Flagged by Analyzer 0 % (0-5); Neutrophil # 5.23 X10^3/uL (2.7-7.7); Neutrophil % 73.1 % (47-70); Platelet Count 154 K/mm3 (150-450); RBC Distribution Width CV 14.9 % (11.6-14.6); RBC Distribution Width SD 50.4 fl (35.1-43.9); Red Blood Count 3.49 M/mm3 (4.2-5.4); White Blood Count 7.2 K/mm3 (4.4-11.0)
--- NOTE | 2022-05-30 07:23 | RAD_ITS ---
EXAM: XR LEFT HIP WITH PELVIS WHEN PERFORMED, 2 OR 3 VIEWS CLINICAL INDICATION: Left hip arthroplasty. TECHNIQUE: Two or three views of the left hip with pelvis when performed. This report was created using [employer] report generation technology. COMPARISON: 05/28/2022. FINDINGS: BONES/JOINTS: Digital intraoperative spot radiographs of left hip arthroplasty. The acetabular and femoral components are in good anatomic alignment. No displaced fracture. No destructive or sclerotic lesions. Note that overlapping bowel shadows may however obscure fine detail. Sacroiliac joint is unremarkable. No widening of the pubic symphysis. SOFT TISSUES: Unremarkable. No soft tissue swelling or gas. VASCULATURE: Vascular calcifications along the SFA are unchanged. RAD/Hip 1 view with Pelvis IMPRESSION: Normal left hip arthroplasty intraoperative digital spot radiographs. Electronically Signed: Emeterio Chinchilla MD at 9:26 EDT ,
--- NOTE | 2022-05-30 07:30 | HIP_PTH ---
PATIENT: DIONTE BRADFORD LOC: MS3 U#:[id number] AGE/SX: 72/F ROOM: [facility] RE05/28/[address]: Dr. Vic Flaherty DO : 1950 BED: 1 DIS: 06/01/2022 SPEC #: [id number] RECD: 06/01/22 14:01 STATUS: AIDE PALMA #: [id number] NASRIN: 05/30/22 07:[address]: Darrel Caceres DEPT: SURGICAL PATHOLOGY RECD BY: Aminta Sanders ENTERED: 06/02/22 07:50 SP TYPE: TOTAL HIP OTHR DR: MD Dr. Vic Zacarias DO Dr. Prakash Chand, MD Dr. Steven Widmer, MD Dr. Tai Chi Kwok, MD Tissues: Hip, NOS Procedures: Decalcification bone/plaque Surgery Specimen Level IV Comments: @ Ordering doctor for DEC edited from to @ jesus CABELLO at 06/02/22 1303 @ Ordering doctor for SUIV edited from to @ by IRINEO at 06/02/22 1303 @ Submitting doctor edited from to @ jesus CABELLO at 06/02/22 1303 HEADER OPERATION: Left hip hemiarthroplasty PRE-OP DIAGNOSIS: Closed fracture of left hip TISSUE SUBMITTED: Bone ? left hip MICROSCOPIC DIAGNOSIS Bone and tissue of left hip, total hip resection: Consistent with organizing fracture site. AM:kate 06/05/2022 MICROSCOPIC DESCRIPTION Slides are reviewed. GROSS DESCRIPTION Received is one container labeled with the patient's name and designated bone left hip. The specimen consists of a allred femoral head measuring 4 x 4 x 4 cm. A fragment of bone is partially detached from the femoral head measuring 2.5 x 2.5 x 0.5 cm. The articular surface is smooth. Resection margin is irregular and hemorrhagic. Data Review Specialist sections are submitted in two cassettes after decalcification as follows: 1 - partially detached piece of bone, 2 - femoral head. / JUNIOR:kate 06/02/2022 TC:5 CPT: 01356, 85834
[2022-05-30] MEDS: Cefazolin 2 GM in 0.9% Normal Saline 100 ML IV (07:31)
[2022-05-30 07:35] LABS: Anion Gap 5 (5-15); BUN 18 mg/dL (7-18); BUN/Creat Ratio 23.3 RATIO (10-20); Calcium,Total 8.2 mg/dL (8.5-10.1); Chloride 107 mmol/L (98-107); Creatinine, Serum 0.77 mg/dL (0.55-1.02); EST Glomerular Filtration Rate 78 mL/min (>60); Est Glom Filt Rate - Afr Amer 94 mL/min (>60); Estimated Creatinine Clearance 39.04 ml/min; Glucose 106 mg/dL (74-106); Potassium 4.2 mmol/L (3.5-5.1); Sodium Level 139 mmol/L (136-145)
[2022-05-30 07:36] LABS: International Normalized Ratio 1.1; Prothrombin Time (Protime)PT. 13.5 SECONDS (11.7-14.9)
[2022-05-30 07:37] LABS: Partial Thromboplast Time 28.1 Seconds (24.1-36.2)
[2022-05-30] MEDS: Lactated Ringers 1,000 ML 15 ML IV (08:00)
[2022-05-30] MEDS: TXA in NS 100ml (Placed in Wound) OPERA.SITE (08:47)
--- NOTE | 2022-05-30 09:15 | PCM.OPRPT ---
Report of Operation Date of Procedure: 05/30/22 Pre-Operative Diagnosis: Left hip subcapital femoral neck fracture Post-Operative Diagnosis: Left hip subcapital femoral neck fracture Surgery/Procedure Performed:: Left direct anterior hip hemiarthroplasty Description of Surgical Findings:: Stable hip with equal leg lengths Surgeon: Darrel Caceres goggles assembler: Tamiko Johnson Type of Anesthesia: General Anesthesiologist: Rachana Smith Special Medications: 2 g Ancef, 2 g TXA lavage, joint cocktail (5 mg Duramorph, 30 mL of 0.5% Ropivicaine, 1000 units of epinephrine, 30 mg of Toradol) Specimen's removed: Femoral head Estimated Blood Loss (mL): 250 Fluids Replaced: 1000 mL crystalloid Description of Procedure: Components used: 1. [place] Hemant femoral stem size #2/37.5 2. Unitrax Polaris cobalt-chromium 45 mm femoral head with +4 mm sleeve Brief history operative indications: 72 yo f who fell at home and sustained a fracture to her left hip. Left partial hip replacement was discussed with the patient with risks and benefits including but not limited to blood loss, DVTs, PEs, neurovascular damage, dislocation, general risks of anesthesia including loss of life. Patient demonstrated an understanding medical clearance is obtained the patient was consented for surgery. Procedure: On the date of procedure the patient's L hip was marked in the preoperative area. Patient was then taken back to the operating room where anesthesia assumed control of the C-spine and airway and administered anesthetic. Patient was transferred to the operating table and placed in the supine position. The hips were placed at the break of the bed and a sacral bump was placed. L The lower extremity was then prepped out in a sterile fashion using chlorhexidine while the surgeon scrubbed. The PA was vital in the positioning of the patient. Upon reentering the room the left lower extremity was draped in the standard orthopedic fashion and the incision was marked. A timeout was called and everyone agreed upon the side, the site, the procedure be performed, antibody given, and patient's identity. At this time incision was made through skin, subcutaneous tissue, and fat down to fascia. The fascia was then incised and the TFL was retracted laterally. A retractor was placed on the lateral border of the femoral neck. Attention was directed to the inferior portion of the approach and all crossing vessels were identified and appropriately coagulated. A retractor was then placed on the medial portion of the femoral neck. The anterior capsule was then cleared of all soft tissue and then H shaped capsulotomy was made. The retractors were then placed inside the capsule. The femoral neck was identified and a cleanup cut was made. At this time a power corkscrew was used to remove the femoral head. Attention was then turned to the femur. Soft tissue releases on the medial and lateral femoral neck were appropriately done, the leg was externally rotated and lateralized. A Mario retractor was placed medially and proximally to the greater trochanter this allowed appropriate visualization and exposure of the femoral canal. Rongeour was then used to remove excess lateral bone. A canal finder and entry broach were used to open the proximal canal. Once we verified we were down the femoral canal we subsequently broached up to a size 2 femur. The appropriate neck was placed in the previously selected head was trialed with a 4 mm neck. Traction was pulled and the hip was reduced with internal rotation. Once it was appropriately reduced and stability was checked. There was minimal shuck, equal leg lengths and appropriate stability with hyperextension and external rotation as well as with 90? flexion and internal rotation. Fluoroscopy was then also used to verify the position of the components and leg lengths using the contralateral side for comparison. The trial components were then dislocated the proximal femur was again exposed and the components were removed from the wound. The final components were verified and opened. The wound was copiously irrigated out with normal saline and prepared for cement.. The acetabulum was checked for any residual debris. The final components were placed and cement was allowed to cure. Trial +4 neck was again placed and the hip was trialed again. Stable hip with equal leg lengths. Hip was again dislocated trunnion was cleaned and trial femoral head was removed and final femoral head was impacted into place. Traction and internal rotation were again used to reduce the hip. After adequate reduction the hip remained stable with appropriate leg lengths. The final components were once again checked with live fluoroscopy and were found to be satisfactory. The wound was then copiously irrigated with normal saline once more, and hemostasis was obtained. Closure was then done using #1 Vicryl runner to close the fascia. A deep fatty layer of #1 suture was closed to eliminate the space. A 2-0 vicryl interuppted sutures were used to close the subcutaneous skin. A 3-0 nylon sutures were used for final skin closure. A Silverlon dressing was placed. Patient was awakened by anesthesia and transferred to the rpearblossom. Patient was then transferred to the PACU for recovery. Postoperative plan: Patient will get 24 hours postop antibiotics. Patient will get in-house physical therapy and will be weight-bear as tolerated. Patient will follow up in office in 2 weeks for a wound check and x-rays. Patient will resume Eliquis tomorrow for DVT prophylaxis Complications No intraoperative complications Admit VTE Documentation VTE Present on Admission: No VTE Mechan Device Prophylaxis: SCD's and Thigh High OSVALDO Hose VTE Pharm Prophylaxis ordered?: Yes
--- NOTE | 2022-05-30 09:58 | RAD_ITS ---
STUDY: X-RAY - PELVIS AND LEFT HIP REASON FOR EXAM: Female, 72 years old. Post Op -- AP both hips on single rory/lateral of op hip PACU TECHNIQUE: 3 views of the pelvis and hip. COMPARISON: 05/28/2022 FINDINGS: There is a non-specific bowel gas pattern. There are atherosclerotic vascular calcifications of the pelvic arteries. There are degenerative changes of the sacroiliac joints. Normal bilateral superior and inferior pubic rami. Normal pubic symphysis. There is a left hip arthroplasty in place. The alignment is grossly anatomic. There are postsurgical changes within the soft tissues of the left thigh. RAD/Hip Min 2 Views (Portable) IMPRESSION: Left hip arthroplasty, grossly anatomic in alignment. Electronically Signed: Brittney Trujillo MD at 10:24 EDT ,
--- NOTE | 2022-05-30 11:00 | PN.HOSP_ITS ---
Documented by User: Mignon Coyle NP, PROFESSOR OF BIOLOGY-C 05/30/22 11:25 Subjective Subjective Patient seen and examined. Underwent left hip hemiarthroplasty. Reports neck discomfort which she states is new following her fall. Postoperative pain well controlled at this time. Denies other symptoms or complaints. Objective Data Objective Data Vital Signs: Vital Signs Temp Pulse Resp BP Pulse Ox O2 Del Method O2 Flow Rate 97.9 F 86 16 117/41 L 96 Nasal Cannula 3 05/30/22 10:47 05/30/22 10:47 05/30/22 10:47 05/30/22 10:47 05/30/22 10:47 05/30/22 10:47 05/30/22 10:47 Oxygen Flow Rate (L/min) 3 Oxygen Delivery Method Nasal Cannula Weight: 204 lb 5.896 oz Body Mass Index (BMI) 37.3 Intake & Output: Intake and Output for Last 24 Hours 05/28/22 05/29/22 05/30/22 23:59 23:59 23:59 Intake Total 2878.97 / 2878.97 1110 / 1110 Output Total 275 / 275 650 / 900 1750 / 1750 Balance -275 / -275 2228.97 / 1978.97 -640 / -640 Lab / Micro Data Result Diagrams: 05/30/22 06:57 05/30/22 06:57 Labs: Laboratory Results - last 24 hr 05/29/22 12:25: APTT 28.2 05/30/22 06:57: WBC 7.2, RBC 3.49 L, Hgb 10.2 L, Hct 32.2 L, MCV 92.3, MCH 29.2, MCHC 31.7 L, RDW Std Deviation 50.4 H, RDW Coeff of Shannon 14.9 H, Plt Count 154, MPV 10.1, Immature Gran % (Auto) 0.300, Neut % (Auto) 73.1 H, Lymph % (Auto) 11.7 L, [place] % (Auto) 10.3 H, Eos % (Auto) 4.5, Baso % (Auto) 0.1, Absolute Neuts (auto) 5.2, Absolute Lymphs (auto) 0.84, Nucleated RBC % 0 05/30/22 06:57: Sodium 139, Potassium 4.2, Chloride 107, Carbon Dioxide 27.0, Anion Gap 5, BUN 18, Creatinine 0.77, Estim Creat Clear Calc 39.04, Est GFR (MDRD) Af Amer 94, Est GFR (MDRD) Non-Af 78, BUN/Creatinine Ratio 23.3 H, Glucose 106, Calcium 8.2 L 05/30/22 06:57: PT 13.5, INR 1.1, APTT 28.1 05/30/22 06:57: Blood Type AB POSITIVE, Antibody Screen NEGATIVE Radiography Diagnostic Testing: Radiology Impression Hip/Pelvis X-Ray 05/30/22 07:23 IMPRESSION: Normal left hip arthroplasty intraoperative digital spot radiographs. Electronically Signed: Emeterio Chinchilla MD at 9:26 EDT , Hip X-Ray 05/30/22 09:58 IMPRESSION: Left hip arthroplasty, grossly anatomic in alignment. Electronically Signed: Brittney Trujillo MD at 10:24 EDT , Physical Exam Const alert and oriented x3 HEENT normocephalic and moist oral mucous membranes Eyes PERRL, EOMs intact bilaterally and conjunctivae normal Neck no lymphadenopathy Resp normal respiratory effort and clear to auscultation bilaterally Cardio regular rate, regular rhythm and no murmurs Peripheral Pulses: pulses 2+ throughout GI normal to inspection, nondistended, normoactive bowel sounds, non-tender and non-distended Extremity normal to inspection Skin no rashes or lesions noted Skin Narrative: Postop dressing intact Lesions: no lesions Rashes: no rashes Trauma: no lacerations or abrasions Neuro CN's II-XII intact bilaterally, no focal motor deficits, no sensory deficits noted and deep tendon reflexes 2+ bilaterally Psych mental status grossly normal and affect normal Assessment & Plan Assessment/Plan (1) Closed fracture of left hip: PLAN: Plan 1.? Acute traumatic left hip fracture secondary to mechanical fall-orthopedic medicine on consult.? Underwent left hip hemiarthroplasty 05/30/2022. As needed pain regimen. Resume Eliquis tomorrow. PT/OT. Plan for rehab versus TCU at discharge. 2. Paroxysmal atrial fibrillation-Eliquis on hold.? Continue rate control regimen. 3. History of DVT/PE with underlying factor V Leiden deficiency-resume Eliquis 05/31/2022. No indication for heparin bridge at this time. 4. Chronic normocytic anemia-stable, trend CBC. 5. Chronic kidney disease stage IIIa-at baseline. Trend BMP. 6. Anxiety/depression-on amitriptyline, Depakote and citalopram. 7. Hypertension-stable, continue verapamil, valsartan, HCTZ. 8. Hyperlipidemia-not on statin. 9. Chronic migraines-on Galcanexumab injections as outpatient. 10. GERD-continue PPI. 11. VALENTIN-CPAP nightly. DVT prophylaxis-SCDs, resume Eliquis 05/31/2022 This patient was seen by LIZ Rojo under the supervision of Dr. Seymour. Time spent examining patient, reviewing data and subsequent management of care: 14 minutes Documented by User: Dr. Logan Seymour MD 05/30/22 16:43 Subjective Subjective Patient seen and examined. Underwent left hip hemiarthroplasty. Reports neck discomfort which she states is new following her fall. Postoperative pain well controlled at this time. Denies other symptoms or complaints. Seen and examined Patient had surgery left anterior direct anterior hip hemiarthroplasty. Postop diagnosis left hip subcapital femoral neck fracture Objective Data Lab / Micro Data Result Diagrams: 05/30/22 06:57 05/30/22 06:57 Physical Exam Narrative Patient returned from the OR to the room. Mild discomfort over surgical area. Physical exam General: Fatigue, mild lethargy. Oriented x3, Cooperative HEENT: Atraumatic, PERRLA, EOMI, Normocephalic Oral: No Gingival or Mucosal Lesions/ Ulcerations Neck: Supple, No JVD, Negative Carotid Bruits Lungs:? Air entry diminished in bilateral lung bases.? No crepitation/rhonchi Cardiovascular: Sinus rhythm, Normal S1, Normal S2, no murmur gallop or rub. Abdomen: Bowel Sounds Present, Soft, Non Tender, Non-Distended : No renal angle tenderness.? No suprapubic tenderness. Extremities: No edema, Capillary Refill Less than 3 Seconds Skin: Surgical dressing with ice bag. Surgical dressing is dry Musculoskeletal: Tenderness over left hip, groin and pelvic region.? Left hip hemiarthroplasty Neurological: Cranial nerves II-XII grossly intact, DTR? 2+/4 and Symmetrical, no focal neurological deficit. Psych/Mental Status: Flat affect Assessment & Plan Assessment/Plan (1) Closed fracture of left hip: PLAN: Plan 1.? Acute traumatic left hip fracture secondary to mechanical fall-orthopedic medicine on consult.? Underwent left hip hemiarthroplasty 05/30/2022. As needed pain regimen. Resume Eliquis tomorrow. PT/OT. Plan for rehab versus TCU at [facility]. 2. Paroxysmal atrial fibrillation-Eliquis on hold.? Continue rate control regimen. 3. History of DVT/PE with underlying factor V Leiden deficiency-resume Eliquis 05/31/2022. No indication for heparin bridge at this time. 4. Chronic normocytic anemia-stable, trend CBC. 5. Chronic kidney disease stage IIIa-at baseline. Trend BMP. 6. Anxiety/depression-on amitriptyline, Depakote and citalopram. 7. Hypertension-stable, continue verapamil, valsartan, HCTZ. 8. Hyperlipidemia-not on statin. 9. Chronic migraines-on Galcanexumab injections as outpatient. 10. GERD-continue PPI. 11. VALENTIN-CPAP nightly. DVT prophylaxis-SCDs, resume Eliquis 05/31/2022 This patient was seen by MARIZA RojoC under the supervision of Dr. Seymour. Time spent examining patient, reviewing data and subsequent management of care: 14 minutes This patient was seen in conjunction with Mignon LYONS.? I have independently interviewed and examined the patient and reviewed pertinent history, examination findings, laboratory and plan of management.? I have? reviewed the note and agree with the documented findings with the few? additional points. In brief, patient is admitted for acute left hip fracture secondary to mechanical fall most probably pathological as it was subtle fall.? Orthopedic surgery is consulted. Her diagnosis and assessment and plan as follows: 1.? General debility of left hip due to mechanical fall resulting into left subcapital hip fracture with moderate varus deformity. : Plain film noting left femoral neck fracture with moderate varus deformity.? Patient had good preop erative functional activity as she was ADL independent and MET more than 4.? Patient does not get chest pain pressure or tightness or shortness of breath on moderate exertion.? NSQIP was completed by admitting hospitalist.? EKG no acute changes, sinus rhythm. Recent guidelines for bridging therapy reviewed.? ? Bridging heparin therapy is recommended if patient has hereditary high risk thrombogenic conditions including protein C, protein S, Antithrombin antibody, antiphospholipid antibodies or multiple hereditary conditions along with recent DVT/PE within 3 months.? Her [id number] score calculated 3.? She did not have history of MT, coronary artery disease, CHF or stroke.? Therefore, she did not meet the criteria for bridging IV heparin or Lovenox therapy.? Resume Eliquis as soon as hemostasis is controlled as DOAC has? rapid onset of action of 1 to 3 hours. 05/30: Patient had left direct anterior hemiarthroplasty in the morning today. Surgical dressing is dry. Try to resume Eliquis as hemostasis is confidently control probably tomorrow. Will discuss with the surgeon prior to Eliquis. 2.? Paroxysmal A. fib: Currently patient is in sinus rhythm heart rate controlled. 09/24/20 ECHO w/ normal LV systolic function, EF 65%, mild enlarged LA, trivial MVI, trivial TVI with no evidence of diastolic dysfunction.? EKG with evidence of sinus rhythm.? 05/30: Patient is in sinus rhythm. BNP 114, slightly elevated upper limit but is nonspecific for heart failure. Patient clinically does not have signs and symptoms of heart failure. Rest as mentioned above 3.? History of DVT and PE with factor V Leiden deficiency: As mentioned above.? Last dose of Eliquis was morning of 05/28/2022 therefore patient can be taken for surgery tomorrow AM. 4.? CKD stage III 3A 5.? Other comorbidities include chronic normocytic normochromic anemia, anxiety and depression, bipolar disorder, hypertension, dyslipidemia, chronic migraine, GERD, obstructive sleep apnea on CPAP: Home medication reconciliation done CODE STATUS: DNRCC arrest with no intubation Total time of the visit including total time spent in counseling or coordination of care, (more than 50% of the total time, spent in obtaining medical information from nurses and other ancillary care providers,explaining to the patient about labs, imaging, diagnosis and management of active complex medical conditions), , review of labs and imaging is? 30 minutes.? SERENA Crow? spent 13 minutes, I spent 17 minutes Charges/Coding Visit Charges Inpatient E&M: 24391 Subs Hosp L2
--- NOTE | 2022-05-30 12:54 | RAD_ITS ---
STUDY: X-RAY - CERVICAL SPINE REASON FOR EXAM: Female, 72 years old. Neck pain after falling. TECHNIQUE: 3 view(s) of the cervical spine were obtained. COMPARISON: 10/11/2018 radiographs. FINDINGS: No visible fracture. Alignment anatomic. No prevertebral soft tissue swelling or acute soft tissue abnormality. Marked facet degeneration throughout the cervical spine again demonstrated. RAD/Cerv Spine 2 or 3 Views IMPRESSION: No apparent fracture or acute finding. Electronically Signed: Maxi Strodu MD at 0:22 EDT ,
[2022-05-30] MEDS: 0.9% Normal Saline 1,000 ML 75 ML IV (13:24)
[2022-05-30] MEDS: Multivitamins,Therapeutic Tablet 1 TABLET PO (13:30)
[2022-05-30] MEDS: Potassium Chloride Oral Tablet 20 MEQ PO ×2 (13:31→18:16)
[2022-05-30] MEDS: Citalopram 40 MG TABLET PO (13:32)
[2022-05-30] MEDS: Loratadine 10 MG Tablet PO (13:32)
[2022-05-30] MEDS: Pantoprazole Sodium 20 MG Tablet PO (13:33)
[2022-05-30] MEDS: Senna/Docusate Sodium 1 Tablet 2 TABLET PO ×2 (13:34→21:29)
[2022-05-30] MEDS: Ferrous Sulfate 325 MG Tablet PO ×2 (13:34→18:16)
[2022-05-30] MEDS: Montelukast 10 MG Tablet PO (13:34)
[2022-05-30] MEDS: Acetaminophen 500 MG Tablet 1000 MG PO ×2 (13:39→21:33)
[2022-05-30] MEDS: Cefazolin 1 GM/50 ML BAG IV ×2 (15:02→23:34)
[2022-05-30] MEDS: oxyCODONE 5 MG Tablet PO (19:35)
[2022-05-30] MEDS: Divalproex (ER) 500 MG Tablet PO (21:32)
[2022-05-30] MEDS: Amitriptyline 25 MG Tablet PO (21:32)
[2022-05-31] VITALS (8 sets, daily range): BP systolic 90–130; BP diastolic 51–72; PULSE 68–93; RESP 16–18; TEMP 36.5–37.1; O2SAT 94–98
[2022-05-31] MEDS: 0.9% Normal Saline 1,000 ML 75 ML IV (03:50)
[2022-05-31] MEDS: oxyCODONE 5 MG Tablet PO ×3 (05:57→21:06)
[2022-05-31] MEDS: Acetaminophen 500 MG Tablet 1000 MG PO ×3 (05:57→21:03)
[2022-05-31 07:04] LABS: Absolute Lymphocyte Count 0.89 X10^3/uL (0.83-4.51); Absolute Neutrophil Count 4.8 X10^3/uL (2.0-7.7); Basophil# 0.02 X10^3/uL; Basophil% 0.3 % (0-1); Eosinophils% 4.3 % (0-5); Hematocrit 28.4 % (37-47); Hemoglobin 9.2 g/dL (12.0-15.0); Lymphocyte # 0.89 X10^3/ul (0.83-4.51); Lymphocyte % 12.8 % (19-41); Mean Corp Hgb Conc 32.4 g/dL (32-36); Mean Corpuscular Volume 92.5 fL (81-99); Mean Platelet Vol. 10.4 fl (6.2-12.0); Monocyte# 0.92 X10^3/uL; Monocyte% 13.3 % (0-10); NRBC Flagged by Analyzer 0 % (0-5); Neutrophil # 4.77 X10^3/uL (2.7-7.7); Neutrophil % 68.7 % (47-70); Platelet Count 137 K/mm3 (150-450); RBC Distribution Width CV 15.1 % (11.6-14.6); RBC Distribution Width SD 51.3 fl (35.1-43.9); Red Blood Count 3.07 M/mm3 (4.2-5.4); White Blood Count 6.9 K/mm3 (4.4-11.0)
[2022-05-31 07:05] LABS: Anion Gap 4 (5-15); BUN 21 mg/dL (7-18); BUN/Creat Ratio 25.7 RATIO (10-20); Calcium,Total 7.8 mg/dL (8.5-10.1); Chloride 108 mmol/L (98-107); Creatinine, Serum 0.82 mg/dL (0.55-1.02); EST Glomerular Filtration Rate 73 mL/min (>60); Est Glom Filt Rate - Afr Amer 88 mL/min (>60); Estimated Creatinine Clearance 47.61 ml/min; Glucose 106 mg/dL (74-106); Potassium 4.9 mmol/L (3.5-5.1); Sodium Level 138 mmol/L (136-145)
[2022-05-31] MEDS: Folic Acid 1 MG Tablet 2 MG PO (08:40)
[2022-05-31] MEDS: Potassium Chloride Oral Tablet 20 MEQ PO ×2 (08:40→16:31)
[2022-05-31] MEDS: Multivitamins,Therapeutic Tablet 1 TABLET PO (08:41)
[2022-05-31] MEDS: Polyethylene Glycol 3350 17 GM PACKET PO (08:46)
[2022-05-31] MEDS: Senna/Docusate Sodium 1 Tablet 2 TABLET PO ×2 (09:39→21:04)
[2022-05-31] MEDS: Bisacodyl 10 MG Suppository RC (09:39)
[2022-05-31] MEDS: Loratadine 10 MG Tablet PO (09:40)
[2022-05-31] MEDS: Citalopram 40 MG TABLET PO (09:40)
[2022-05-31] MEDS: Montelukast 10 MG Tablet PO (09:41)
[2022-05-31] MEDS: Pantoprazole Sodium 20 MG Tablet PO (09:41)
--- NOTE | 2022-05-31 09:43 | PCM.PN.HOSP ---
Documented by User: Mignon Coyle NP, BONDING MACHINE SETTER-C 05/31/22 09:55 Subjective Subjective Patient seen and examined. Resting in chair. Pain currently controlled. States she has not had a bowel movement since Wednesday. Bowel regimen initiated. Denies other symptoms or complaints. Objective Data Objective Data Vital Signs: Vital Signs Temp Pulse Resp BP Pulse Ox O2 Del Method O2 Flow Rate 98.7 F 90 16 90/51 L 98 Room Air 2 05/31/22 09:30 05/31/22 09:30 05/31/22 09:30 05/31/22 09:30 05/31/22 09:30 05/31/22 09:33 05/31/22 07:58 Oxygen Flow Rate (L/min) 2 Oxygen Delivery Method Room Air Weight: 217 lb 2.485 oz Body Mass Index (BMI) 37.3 Intake & Output: Intake and Output for Last 24 Hours 05/29/22 05/30/22 05/31/22 23:59 23:59 23:59 Intake Total 2878.97 / 2878.97 3654 / 3654 285 / 285 Output Total 650 / 900 2125 / 2125 250 / 250 Balance 2228.97 / 1978.97 1529 / 1529 35 / 35 Lab / Micro Data Result Diagrams: 05/31/22 05:55 05/31/22 05:55 Labs: Laboratory Results - last 24 hr 05/31/22 05:55: WBC 6.9, RBC 3.07 L, Hgb 9.2 L, Hct 28.4 L, MCV 92.5, MCH 30.0, MCHC 32.4, RDW Std Deviation 51.3 H, RDW Coeff of [place] 15.1 H, Plt Count 137 L, MPV 10.4, Immature Gran % (Auto) 0.600, Neut % (Auto) 68.7, Lymph % (Auto) 12.8 L, [place] % (Auto) 13.3 H, Eos % (Auto) 4.3, Baso % (Auto) 0.3, Absolute Neuts (auto) 4.8, Absolute Lymphs (auto) 0.89, Nucleated RBC % 0 05/31/22 05:55: Sodium 138, Potassium 4.9, Chloride 108 H, Carbon Dioxide 26.0, Anion Gap 4 L, BUN 21 H, Creatinine 0.82, Estim Creat Clear Calc 47.61, Est GFR (MDRD) Af Amer 88, Est GFR (MDRD) Non-Af 73, BUN/Creatinine Ratio 25.7 H, Glucose 106, Calcium 7.8 L Radiography Diagnostic Testing: Radiology Impression Hip X-Ray 05/30/22 09:58 IMPRESSION: Left hip arthroplasty, grossly anatomic in alignment. Electronically Signed: Brittney Trujillo MD at 10:24 EDT , Cervical Spine X-Ray 05/30/22 12:54 IMPRESSION: No apparent fracture or acute finding. Electronically Signed: Maxi Stroud MD at 0:22 EDT , Physical Exam Const alert and oriented x3 HEENT normocephalic and moist oral mucous membranes Eyes PERRL, EOMs intact bilaterally and conjunctivae normal Neck no lymphadenopathy Resp normal respiratory effort and clear to auscultation bilaterally Cardio regular rate, regular rhythm and no murmurs Peripheral Pulses: pulses 2+ throughout GI normal to inspection, nondistended, normoactive bowel sounds, non-tender and non-distended Extremity normal to inspection Skin no rashes or lesions noted Skin Narrative: Postop dressing intact Lesions: no lesions Rashes: no rashes Trauma: no lacerations or abrasions Neuro CN's II-XII intact bilaterally, no focal motor deficits, no sensory deficits noted and deep tendon reflexes 2+ bilaterally Psych mental status grossly normal and affect normal Assessment & Plan Assessment/Plan (1) Closed fracture of left hip: PLAN: Plan 1.? Acute traumatic left hip fracture secondary to mechanical fall-orthopedic medicine on consult.? Underwent left hip hemiarthroplasty 05/30/2022.? As needed pain regimen.? Resume Eliquis.? PT/OT.? Plan for rehab versus TCU at discharge. 2. Paroxysmal atrial fibrillation-Continue Eliquis and rate control regimen. 3. History of DVT/PE with underlying factor V Leiden deficiency-resume Eliquis 05/31/2022. 4. Chronic normocytic anemia-stable, trend CBC. 5. Chronic kidney disease stage IIIa-at baseline. Trend BMP. 6. Anxiety/depression-on amitriptyline, Depakote and citalopram. 7. Hypertension-stable, continue verapamil, valsartan, HCTZ. 8. Hyperlipidemia-not on statin. 9. Chronic migraines-on Galcanexumab injections as outpatient. 10. GERD-continue PPI. 11. VALENTIN-CPAP nightly. DVT prophylaxis-Melissa Valdez This patient was seen by LIZ Rojo under the supervision of Dr. Seymour. Time spent examining patient, reviewing data and subsequent management of care: 12 minutes Documented by User: Dr. Logan Seymour MD 05/31/22 10:30 Subjective Subjective Patient seen and examined. Resting in chair. Pain currently controlled. States she has not had a bowel movement since Wednesday. Bowel regimen initiated. Denies other symptoms or complaints. Follow-up for perioperative management of left hip fracture. Complain of pain over operative region. On PT. History of DVT/PE and paroxysmal A. fib. Resume Eliquis in evening today. Objective Data Lab / Micro Data Result Diagrams: 05/31/22 05:55 05/31/22 05:55 Physical Exam Narrative Seen and examined. Physical exam General: Fatigue, mild lethargy. Oriented x3, Cooperative HEENT: Atraumatic, PERRLA, EOMI, Normocephalic Oral: No Gingival or Mucosal Lesions/ Ulcerations Neck: Supple, No JVD, Negative Carotid Bruits Lungs:? Air entry diminished in bilateral lung bases.? No crepitation/rhonchi Cardiovascular: Sinus rhythm, Normal S1, Normal S2, no murmur gallop or rub. Abdomen: Bowel Sounds Present, Soft, Non Tender, Non-Distended : No renal angle tenderness.? No suprapubic tenderness. Extremities: No edema, Capillary Refill Less than 3 Seconds Skin: Surgical dressing with ice bag. Surgical dressing is dry. Minor subcutaneous bruise postop but no major bleeding or hematoma Musculoskeletal: Tenderness over left hip, groin and pelvic region.? Left hip hemiarthroplasty Neurological: Cranial nerves II-XII grossly intact, DTR? 2+/4 and Symmetrical, no focal neurological deficit. Psych/Mental Status: Flat affect Assessment & Plan Assessment/Plan (1) Closed fracture of left hip: PLAN: Plan 1.? Acute traumatic left hip fracture secondary to mechanical fall-orthopedic medicine on consult.? Underwent left hip hemiarthroplasty 05/30/2022.? As needed pain regimen.? Resume Eliquis.? PT/OT.? Plan for rehab versus TCU at discharge. 2. Paroxysmal atrial fibrillation-Continue Eliquis and rate control regimen. 3. History of DVT/PE with underlying factor V Leiden deficiency-resume Eliquis 05/31/2022. 4. Chronic normocytic anemia-stable, trend CBC. 5. Chronic kidney disease stage IIIa-at baseline. Trend BMP. 6. Anxiety/depression-on amitriptyline, Depakote and citalopram. 7. Hypertension-stable, continue verapamil, valsartan, HCTZ. 8. Hyperlipidemia-not on statin. 9. Chronic migraines-on Galcanexumab injections as outpatient. 10. GERD-continue PPI. 11. VALENTIN-CPAP nightly. DVT prophylaxis-Melissa Valdez This patient was seen by LIZ Rojo under the supervision of Dr. Seymour. Time spent examining patient, reviewing data and subsequent management of care: 13 minutes his patient was seen in conjunction with Mignon LYONS.? I have independently interviewed and examined the patient and reviewed pertinent history, examination findings, laboratory and plan of management.? I have? reviewed the note and agree with the documented findings with the few? additional points. In brief, patient is admitted for acute left hip fracture secondary to mechanical fall most probably pathological as it was subtle fall.? Orthopedic surgery is consulted. Her diagnosis and assessment and plan as follows: 1.? General debility of left hip due to mechanical fall resulting into left subcapital? hip fracture with moderate varus deformity. : Plain film noting left femoral neck fracture with moderate varus deformity.? Patient had good preoperative functional activity as she was ADL independent and MET more than 4.? Patient does not get chest pain pressure or tightness or shortness of breath on moderate exertion.? NSQIP was completed by admitting hospitalist.? EKG no acute changes, sinus rhythm. Recent guidelines for bridging therapy reviewed.? ? Bridging heparin therapy is recommended if patient has hereditary high risk thrombogenic conditions including protein C, protein S, Antithrombin antibody, antiphospholipid antibodies or multiple hereditary conditions along with recent DVT/PE within 3 months.? Her [id number] score calculated 3.? She did not have history of HI, coronary artery disease, CHF or stroke.? Therefore, she did not meet the criteria for bridging IV heparin or Lovenox therapy.? Resume Eliquis as soon as hemostasis is controlled as DOAC has? rapid onset of action of 1 to 3 hours. 05/30: Patient had left direct anterior hemiarthroplasty in the morning today.? Surgical dressing is dry.? Try to resume Eliquis as hemostasis is confidently control probably tomorrow.? Will discuss with the surgeon prior to? Eliquis. 05/31: Operative note reviewed. Plan to resume Eliquis today, will prep starting in the evening today as it has rapid onset of action. Monitor H&H and platelet count. 2.? Paroxysmal A. fib: Currently patient is in sinus rhythm heart rate controlled. 09/24/20 ECHO w/ normal LV systolic function, EF 65%, mild enlarged LA, trivial MVI, trivial TVI with no evidence of diastolic dysfunction.? EKG with evidence of sinus rhythm.? 05/30: Patient is in sinus rhythm.? BNP 114, slightly elevated upper limit but is nonspecific for heart failure.? Patient clinically does not have signs and symptoms of heart failure.? Rest as mentioned above 3.? History of DVT and PE with factor V Leiden deficiency: As mentioned above.? Last dose of Eliquis was morning of 05/28/2022 therefore patient can be taken for surgery tomorrow AM. 4.? CKD stage III 3A 5.? Other comorbidities include chronic normocytic normochromic anemia, anxiety and depression, bipolar disorder, hypertension, dyslipidemia, chronic migraine, GERD, obstructive sleep apnea on CPAP: Home medication reconciliation done CODE STATUS: DNRCC arrest with no intubation Total time of the visit including total time spent in counseling or coordination of care, (more than 50% of the total time, spent in obtaining medical information from nurses and other ancillary care providers,explaining to the patient about labs, imaging, diagnosis and management of active complex medical conditions), , review of labs and imaging is? 25 minutes.? SERENA Crow? spent 12 minutes, I spent 13 minutes Charges/Coding Visit Charges Inpatient E&M: 86206 Subs Hosp L2
[2022-05-31] MEDS: Ferrous Sulfate 325 MG Tablet PO ×2 (12:20→16:30)
[2022-05-31] MEDS: 0.9% Saline Lock 10 ML Syringe IV (12:20)
--- NOTE | 2022-05-31 12:44 | PN.ORTHO_ITS ---
Subjective Subjective 72-year-old female 1 day status post left direct anterior hemiarthroplasty for femoral neck fracture. Patient is doing well. She reports some thigh pain and pain in the operative area. No associated numbness and tingling distally. No chest pain or shortness of breath. She is done well overnight. Her hemoglobin went from 10 2-9 to postoperatively which is stable considering intraoperative blood loss. Vital signs of been stable. Cervical spine radiographs were obtained in order to evaluate some complaints of neck pain yesterday. Consistent with arthrosis, no acute findings. Objective Data Objective Data Vital Signs: Vital Signs Temp Pulse Resp BP Pulse Ox O2 Del Method O2 Flow Rate 98.7 F 90 16 90/51 L 98 Room Air 2 05/31/22 09:30 05/31/22 09:30 05/31/22 09:30 05/31/22 09:30 05/31/22 09:30 05/31/22 09:33 05/31/22 07:58 Oxygen Flow Rate (L/min) 2 Oxygen Delivery Method Room Air Weight: 217 lb 2.485 oz Body Mass Index (BMI) 37.3 Intake & Output: Intake and Output for Last 24 Hours 05/29/22 05/30/22 05/31/22 23:59 23:59 23:59 Intake Total 2878.97 / 2878.97 3654 / 3654 635 / 635 Output Total 650 / 900 2125 / 2125 400 / 400 Balance 2228.97 / 1978.97 1529 / 1529 235 / 235 Lab / Micro Data Attestation: I reviewed the patient's lab results. Result Diagrams: 05/31/22 05:55 05/31/22 05:55 Labs: Laboratory Results - last 24 hr 05/31/22 05:55: WBC 6.9, RBC 3.07 L, Hgb 9.2 L, Hct 28.4 L, MCV 92.5, MCH 30.0, MCHC 32.4, RDW Std Deviation 51.3 H, RDW Coeff of Shannon 15.1 H, Plt Count 137 L, MPV 10.4, Immature Gran % (Auto) 0.600, Neut % (Auto) 68.7, Lymph % (Auto) 12.8 L, [place] % (Auto) 13.3 H, Eos % (Auto) 4.3, Baso % (Auto) 0.3, Absolute Neuts (auto) 4.8, Absolute Lymphs (auto) 0.89, Nucleated RBC % 0 05/31/22 05:55: Sodium 138, Potassium 4.9, Chloride 108 H, Carbon Dioxide 26.0, Anion Gap 4 L, BUN 21 H, Creatinine 0.82, Estim Creat Clear Calc 47.61, Est GFR (MDRD) Af Amer 88, Est GFR (MDRD) Non-Af 73, BUN/Creatinine Ratio 25.7 H, Glucose 106, Calcium 7.8 L Radiography Diagnostic Testing: Radiology Impression Cervical Spine X-Ray 05/30/22 12:54 IMPRESSION: No apparent fracture or acute finding. Electronically Signed: Maxi Stroud MD at 0:22 EDT Reading Location ID and State: [facility] / [place] Tel , Service support , Physical Exam Const alert, oriented x3 and no apparent distress Resp normal respiratory effort GI non-distended Extremity Extremity Narrative: Left lower extremity: Dressing is clean dry and intact Sensations intact to light touch saphenous, sural, superficial peroneal, deep peroneal, and tibial distributions Motors intact EHL, DF, PF calves are soft and supple Assessment & Plan Assessment/Plan (1) Malnourished: PLAN: As noted previously patient's albumin is low indicating patient may have difficulty with wound healing related to surgical intervention. Recommend co ntinuing Ensure upon discharge. (2) Anemia: PLAN: Anemia related to chronic anemia plus intraoperative and injury related blood loss. Patient's vital signs are stable. Hemoglobin 9.2. We will would monitor medically however at this time patient does not require any transfusion. (3) Closed fracture of left hip: PLAN: PLAN: 1. DVT prophylaxis: Patient restarted Eliquis today. 2. Pain control: Per primary service recommend limitation of narcotics based on age and addictive properties however patient did just have surgery in criteria for narcotic pain medications for pain. 3. Therapy: Weightbearing as tolerated, anterior precautions. Activity as tolerated. 4. Medical management: Per primary service appreciate the opportunity to participate in this patient's medical care. 5. Disposition: Patient should follow-up in office in 2 weeks as outpatient for x-rays and suture removal. If they remain in a facility x-rays can be taken at the facility and sutures can be removed on postop day 14 if incision is appropriate. Dressing should be removed on postop day 5 with incision left open to air if clean and dry. Change dressing as needed. Patient will be weightbearing as tolerated. Patient is primary caregiver of her at [facility]. She is significant responsibilities at home. She has sustained a hip fracture at this time based on her injury and overall medical comorbidities her healing and recovery potential are fair. She would likely benefit from time in a transitional care or skilled rehabilitation prior to returning home. Social work is consulted to help arrange this. [facility] Office:
[2022-05-31] MEDS: Ensure Plus High Protein 120 ML LIQUID PO (14:25)
[2022-05-31] MEDS: Divalproex (ER) 500 MG Tablet PO (21:03)
[2022-05-31] MEDS: MELATONIN 3 MG TABLET PO (21:06)
[2022-05-31] MEDS: APIXABAN 5 MG TABLET PO (21:06)
[2022-05-31] MEDS: Amitriptyline 25 MG Tablet PO (21:06)
[2022-06-01 02:21] VITALS: BP 134/66; PULSE 72; RESP 18; TEMP 36.7; O2SAT 98
[2022-06-01 05:01] LABS: Absolute Lymphocyte Count 0.96 X10^3/uL (0.83-4.51); Absolute Neutrophil Count 6.1 X10^3/uL (2.0-7.7); Basophil# 0.02 X10^3/uL; Basophil% 0.2 % (0-1); Eosinophil# 0.18 X10^3/uL; Eosinophils% 2.2 % (0-5); Hematocrit 30.5 % (37-47); Hemoglobin 9.9 g/dL (12.0-15.0); Lymphocyte # 0.96 X10^3/ul (0.83-4.51); Lymphocyte % 11.8 % (19-41); Mean Corp Hgb Conc 32.5 g/dL (32-36); Mean Corpuscular Hgb 29.5 pg (27.0-32.0); Mean Corpuscular Volume 90.8 fL (81-99); Monocyte# 0.85 X10^3/uL; Monocyte% 10.4 % (0-10); NRBC Flagged by Analyzer 0 % (0-5); Neutrophil % 74.9 % (47-70); Platelet Count 159 K/mm3 (150-450); RBC Distribution Width SD 49.3 fl (35.1-43.9); Red Blood Count 3.36 M/mm3 (4.2-5.4); White Blood Count 8.2 K/mm3 (4.4-11.0)
[2022-06-01 05:25] LABS: Anion Gap 6 (5-15); BUN 11 mg/dL (7-18); BUN/Creat Ratio 15.1 RATIO (10-20); Calcium,Total 8.3 mg/dL (8.5-10.1); Chloride 104 mmol/L (98-107); Creatinine, Serum 0.73 mg/dL (0.55-1.02); EST Glomerular Filtration Rate 83 mL/min (>60); Est Glom Filt Rate - Afr Amer 101 mL/min (>60); Estimated Creatinine Clearance 39.04 ml/min; Glucose 108 mg/dL (74-106); Sodium Level 137 mmol/L (136-145)
[2022-06-01] MEDS: Acetaminophen 500 MG Tablet 1000 MG PO ×2 (05:48→15:19)
[2022-06-01 08:28] VITALS: BP 110/56; PULSE 99; RESP 18; TEMP 36.6; O2SAT 98
[2022-06-01] MEDS: Montelukast 10 MG Tablet PO (09:44)
[2022-06-01] MEDS: Senna/Docusate Sodium 1 Tablet 2 TABLET PO (09:44)
[2022-06-01] MEDS: Pantoprazole Sodium 20 MG Tablet PO (09:45)
[2022-06-01] MEDS: hydroCHLOROthiazide 12.5mg 12.5 MG PO (09:45)
[2022-06-01] MEDS: Losartan Potassium 100 MG Tablet PO (09:45)
[2022-06-01] MEDS: Verapamil SR 240 MG Tablet PO (09:46)
[2022-06-01] MEDS: Loratadine 10 MG Tablet PO (09:46)
[2022-06-01] MEDS: Potassium Chloride Oral Tablet 20 MEQ PO (09:46)
[2022-06-01] MEDS: Citalopram 40 MG TABLET PO (09:46)
[2022-06-01] MEDS: Multivitamins,Therapeutic Tablet 1 TABLET PO (09:46)
[2022-06-01] MEDS: APIXABAN 5 MG TABLET PO (09:46)
[2022-06-01] MEDS: Folic Acid 1 MG Tablet 2 MG PO (09:47)
[2022-06-01] MEDS: Ensure Plus High Protein 120 ML LIQUID PO ×2 (09:48→15:23)
--- NOTE | 2022-06-01 10:48 | DCINST_ITS ---
Discharge Instructions Diet Discharge Diet: Low fat / Low cholesterol Activity Discharge Activity: Return to Normal Activity Weight Bearing Status: Weight bearing as tolerated Dressing / Incision Call your doctor if your incision/area has: Continuous Slow Oozing, Sudden Increased Bleeding, Increased Pain/ Swelling, Increased Redness, Foul Smelling Discharge and Swelling at the incision site Call your doctor if you observe: Fever of 101 or Higher, Shortness of breath, Dizziness and Chest pain Follow Up Care Test Results: Test results from this visit will be discussed in further detail at your follow- up appointment, if applicable. Discharge Plan Admission Admit Date/Time: 05/28/22 17:11 Primary Reason for Your Visit: Acute traumatic left hip fracture secondary to mechanical fall Attending Provider: Vic Flaherty Primary Care Provider: Desmond Riojas Chi Consulting Providers: Darrel Caceres ; Margot Ribeiro ; Logan Seymour Instructions Additional Instructions / Restrictions: Outpatient follow-up with orthopedic medicine in 2 weeks for x-rays and suture removal. If patient is still in rehab unit, sutures can be removed on postop day 14 which is 06/12/2022. Remove postop dressings on 06/04/2022 with incision left open to air. Discharge Orders/Prescriptions Prescriptions: New polyethylene glycol 3350 17 gram Powder In Packet 17 g PO DAILY Qty: 0 0RF acetaminophen 500 mg Tablet 1,000 mg PO Q8 Qty: 0 0RF ferrous sulfate [FeroSul] 325 mg (65 mg iron) Tablet 325 mg PO 1200,1700 Qty: 0 0RF oxycodone 5 mg Tablet 2.5 - 5 mg PO Q4H PRN PRN (Reason: Pain Score 4-10) Qty: 0 0RF Continued amitriptyline 25 mg tablet 25 mg PO QHS Emgality Syringe 120 mg/mL syringe 120 mg SC QMONTH multivitamin Tablet 1 tab PO DAILY valsartan-hydrochlorothiazide 320-12.5 mg tablet 1 tab PO DAILY calcium carbonate 600 mg calcium (1,500 mg) tablet 600 mg PO DAILY ergocalciferol (vitamin D2) 1,250 mcg (50,000 unit) capsule 1,250 mcg PO QWEEK potassium chloride 20 MEQ tablet 20 meq PO BID omeprazole 20 MG capsule 20 mg PO DAILY montelukast 10 MG tablet 10 mg PO DAILY verapamil 240 MG capsule,ext rel. pellets 24 hr 240 mg PO DAILY levocetirizine 5 MG tablet 5 mg PO DAILY divalproex [Depakote ER] 500 mg Tablet Extended Release 24 Hr 500 mg PO QHS apixaban 5 mg tablet 5 mg PO BID citalopram 40 mg tablet 40 mg PO DAILY Discontinued acetaminophen 500 mg Tablet 1,000 mg PO Q6H PRN PRN (Reason: Pain Score 1-5) Qty: 0 0RF Referrals / Follow Up: Darrel Caceres MD [Med Staff - Active Staff] - Within 2 Weeks Desmond Riojas Chi, MD [Primary Care Provider] - In 1 Week Disposition Disposition (needs filled in before D/C Order can be placed): Inpatient Rehab Unit/Facility
--- NOTE | 2022-06-01 11:00 | DS.PCM_ITS ---
Documented by User: Mignon Coyle NP, [employer] 06/01/22 11:08 Providers Date of Admission: 05/28/22 Date of Discharge: 06/01/22 Primary Care Physician: Dr. Desmond Riojas MD Consultations 05/28/22 18:26 Consult: Orthopedics Routine Consulting Provider: Darrel Caceres Reason for Consult: L hip fracture EMERGENT Consult: No MD Notified: Yes Date Notified: 05/28/22 Time Notified: 17:12 Method of Notification: ED Physician Initiated Reason For Visit: L HIP FRACTURE, FALL Diagnosis Discharge Diagnosis (1) Malnourished: Status: Acute Code(s): E46 - Unspecified protein-calorie malnutrition (2) Anemia: Status: Acute Code(s): D64.9 - Anemia, unspecified (3) Closed fracture of left hip: Status: Acute Code(s): S72.002A - Fracture of unspecified part of neck of left femur, initial encounter for closed fracture Medications at Discharge Home Medications levocetirizine 5 mg tablet 5 mg PO DAILY allergies 09/29/13 montelukast 10 mg tablet 10 mg PO DAILY Allergies 09/29/13 omeprazole 20 mg capsule,delayed release 20 mg PO DAILY GERD 09/29/13 potassium chloride 20 mEq tablet,extended release(part/cryst) 20 meq PO BID Supplement 09/29/13 verapamil 240 mg 24 hr capsule,extended release 240 mg PO DAILY BP 09/29/13 amitriptyline 25 mg tablet 25 mg PO QHS Mood 10/25/19 galcanezumab-gnlm 120 mg/mL subcutaneous syringe (Emgality) 120 mg subcut QMONTH Ask 10/25/19 multivitamin 1 tab PO DAILY Supplement 04/26/20 divalproex 500 mg tablet,extended release 24 hr (Depakote ER) 500 mg PO QHS Ask 01/31/21 apixaban 5 mg tablet 5 mg PO BID Blood thinner 02/21/21 valsartan 320 mg-hydrochlorothiazide 12.5 mg tablet 1 tab PO DAILY bp 05/27/21 calcium carbonate 600 mg calcium (1,500 mg) tablet 600 mg PO DAILY supplement 11/24/21 ergocalciferol (vitamin D2) 1,250 mcg (50,000 unit) capsule 1,250 mcg PO QWEEK supplement 11/24/21 citalopram 40 mg tablet 40 mg PO DAILY mood 05/28/22 acetaminophen 500 mg tablet 1,000 mg PO Q8 #0 tabs 06/01/22 ferrous sulfate 325 mg (65 mg iron) tablet (FeroSul) 325 mg PO 1200,1700 #0 tabs 06/01/22 oxycodone 5 mg tablet 2.5 - 5 mg PO Q4H PRN PRN Pain Score 4-10 #0 tabs 06/01/22 polyethylene glycol 3350 17 gram oral powder packet 17 g PO DAILY #0 ea 06/01/22 Hospital Course Operations - (Left direct anterior hip hemiarthroplasty 05/30/22) Procedures None Summary of Care Provided Hospital Course: Patient is a 72-year-old female admitted 05/28/2022 due to fall with left hip pain. 1.? Acute traumatic left hip fracture secondary to mechanical fall- Underwent left hip hemiarthroplasty 05/30/2022.? As needed pain regimen.?Rehab at discharge for PT/OT. Patient reported neck discomfort following a fall as well. Cervical spine x-ray without acute process. Outpatient follow-up with orthopedic medicine in 2 weeks for x-rays and suture removal.? If patient is still in rehab unit, sutures can be removed on postop day 14 which is 06/12/2022.? Remove postop dressings on 06/04/2022 with incision left open to air. 2. Paroxysmal atrial fibrillation-Continue Eliquis and rate control regimen. 3. History of DVT/PE with underlying factor V Leiden deficiency-Eliquis resumed 05/31/2022. 4. Acute blood loss anemia on chronic normocytic anemia-appears stable. Initiated on iron supplementation. Acute blood loss expected outcome related to #1. 5. Chronic kidney disease stage IIIa-at baseline. Trend BMP. 6. Anxiety/depression-on amitriptyline, Depakote and citalopram. 7. Hypertension-stable, continue verapamil, valsartan, HCTZ. 8. Hyperlipidemia-not on statin. 9. Chronic migraines-on Galcanexumab injections as outpatient. 10. GERD-continue PPI. 11. VALENTIN-CPAP nightly. Physical Exam Const alert and oriented x3 HEENT normocephalic and moist oral mucous membranes Eyes PERRL, EOMs intact bilaterally and conjunctivae normal Neck no lymphadenopathy Resp normal respiratory effort and clear to auscultation bilaterally Cardio regular rate, regular rhythm and no murmurs Peripheral Pulses: pulses 2+ throughout GI normal to inspection, nondistended, normoactive bowel sounds, non-tender and non-distended Extremity normal to inspection Skin no rashes or lesions noted Skin Narrative: Postop dressing intact Lesions: no lesions Rashes: no rashes Trauma: no lacerations or abrasions Neuro CN's II-XII intact bilaterally, no focal motor deficits, no sensory deficits noted and deep tendon reflexes 2+ bilaterally Psych mental status grossly normal and affect normal This patient was seen by LIZ Rojo under the supervision of Dr. Flaherty. Time spent examining patient, reviewing data and subsequent management of care: 22 minutes Weight / BMI Weight Weight: 214 lb 1.102 oz Body Mass Index (BMI) 37.3 ABG / Lab / Microbiology Data Result Diagrams: 06/01/22 04:17 06/01/22 04:17 Laboratory: Laboratory Results - last 24 hr 06/01/22 04:17: WBC 8.2, RBC 3.36 L, Hgb 9.9 L, Hct 30.5 L, MCV 90.8, MCH 29.5, MCHC 32.5, RDW Std Deviation 49.3 H, RDW Coeff of Shannon 15.0 H, Plt Count 159, MPV 10.0, Immature Gran % (Auto) 0.500, Neut % (Auto) 74.9 H, Lymph % (Auto) 11.8 L, [place] % (Auto) 10.4 H, Eos % (Auto) 2.2, Baso % (Auto) 0.2, Absolute Neuts (auto) 6.1, Absolute Lymphs (auto) 0.96, Nucleated RBC % 0 06/01/22 04:17: Sodium 137, Potassium 4.0, Chloride 104, Carbon Dioxide 27.0, Anion Gap 6, BUN 11, Creatinine 0.73, Estim Creat Clear Calc 39.04, Est GFR (MDRD) Af Amer 101, Est GFR (MDRD) Non-Af 83, BUN/Creatinine Ratio 15.1, Glucose 108 H, Calcium 8.3 L D/C Instructions Discharge Diet: Low fat / Low cholesterol Weight Bearing Status: Weight bearing as tolerated Call your doctor if your incision/area has: Continuous Slow Oozing, Sudden Increased Bleeding, Increased Pain/ Swelling, Increased Redness, Foul Smelling Discharge and Swelling at the incision site Call your doctor if you observe: Fever of 101 or Higher, Shortness of breath, Dizziness and Chest pain Meaningful Use Info Meaningful Use Diagnoses (Choose all that apply): None applicable Discharge Plan Admission Admit Date/Time: 05/28/22 17:11 Primary Reason for Your Visit: Acute traumatic left hip fracture secondary to mechanical fall Attending Provider: Vic Flaherty Primary Care Provider: Desmond Riojas Chi Consulting Providers: Darrel Caceres ; Margot Ribeiro ; Logan Seymour Instructions Additional Instructions / Restrictions: Outpatient follow-up with orthopedic medicine in 2 weeks for x-rays and suture removal. If patient is still in rehab unit, sutures can be removed on postop day 14 which is 06/12/2022. Remove postop dressings on 06/04/2022 with incision left open to air. Discharge Orders/Prescriptions Prescriptions: New polyethylene glycol 3350 17 gram Powder In Packet 17 g PO DAILY Qty: 0 0RF acetaminophen 500 mg Tablet 1,000 mg PO Q8 Qty: 0 0RF ferrous sulfate [FeroSul] 325 mg (65 mg iron) Tablet 325 mg PO 1200,1700 Qty: 0 0RF oxycodone 5 mg Tablet 2.5 - 5 mg PO Q4H PRN PRN (Reason: Pain Score 4-10) Qty: 0 0RF Continued amitriptyline 25 mg tablet 25 mg PO QHS Emgality Syringe 120 mg/mL syringe 120 mg SC QMONTH multivitamin Tablet 1 tab PO DAILY valsartan-hydrochlorothiazide 320-12.5 mg tablet 1 tab PO DAILY calcium carbonate 600 mg calcium (1,500 mg) tablet 600 mg PO DAILY ergocalciferol (vitamin D2) 1,250 mcg (50,000 unit) capsule 1,250 mcg PO QWEEK potassium chloride 20 MEQ tablet 20 meq PO BID omeprazole 20 MG capsule 20 mg PO DAILY montelukast 10 MG tablet 10 mg PO DAILY verapamil 240 MG capsule,ext rel. pellets 24 hr 240 mg PO DAILY levocetirizine 5 MG tablet 5 mg PO DAILY divalproex [Depakote ER] 500 mg Tablet Extended Release 24 Hr 500 mg PO QHS apixaban 5 mg tablet 5 mg PO BID citalopram 40 mg tablet 40 mg PO DAILY Discontinued acetaminophen 500 mg Tablet 1,000 mg PO Q6H PRN PRN (Reason: Pain Score 1-5) Qty: 0 0RF Referrals / Follow Up: Darrel Caceres MD [Med Staff - Active Staff] - Within 2 Weeks Desmond Riojas Chi, MD [Primary Care Provider] - In 1 Week Disposition Disposition (needs filled in before D/C Order can be placed): Inpatient Rehab Unit/Facility Documented by User: Dr. Vic Flaherty DO 06/01/22 13:47 Providers Date of Admission: 05/28/22 Reason For Visit: L HIP FRACTURE, FALL Diagnosis Discharge Diagnosis (1) Malnourished: Status: Acute Code(s): E46 - Unspecified protein-calorie malnutrition (2) Anemia: Status: Acute Code(s): D64.9 - Anemia, unspecified (3) Closed fracture of left hip: Status: Acute Code(s): S72.002A - Fracture of unspecified part of neck of left femur, initial encounter for closed fracture Medications at Discharge Home Medications levocetirizine 5 mg tablet 5 mg PO DAILY allergies 09/29/13 montelukast 10 mg tablet 10 mg PO DAILY Allergies 09/29/13 omeprazole 20 mg capsule,delayed release 20 mg PO DAILY GERD 09/29/13 potassium chloride 20 mEq tablet,extended release(part/cryst) 20 meq PO BID Supplement 09/29/13 verapamil 240 mg 24 hr capsule,extended release 240 mg PO DAILY BP 09/29/13 amitriptyline 25 mg tablet 25 mg PO QHS Mood 10/25/19 galcanezumab-gnlm 120 mg/mL subcutaneous syringe (Emgality) 120 mg subcut QMONTH Ask 10/25/19 multivitamin 1 tab PO DAILY Supplement 04/26/20 divalproex 500 mg tablet,extended release 24 hr (Depakote ER) 500 mg PO QHS Ask 01/31/21 apixaban 5 mg tablet 5 mg PO BID Blood thinner 02/21/21 valsartan 320 mg-hydrochlorothiazide 12.5 mg tablet 1 tab PO DAILY bp 05/27/21 calcium carbonate 600 mg calcium (1,500 mg) tablet 600 mg PO DAILY supplement 11/24/21 ergocalciferol (vitamin D2) 1,250 mcg (50,000 unit) capsule 1,250 mcg PO QWEEK supplement 11/24/21 citalopram 40 mg tablet 40 mg PO DAILY mood 05/28/22 acetaminophen 500 mg tablet 1,000 mg PO Q8 #0 tabs 06/01/22 ferrous sulfate 325 mg (65 mg iron) tablet (FeroSul) 325 mg PO 1200,1700 #0 tabs 06/01/22 oxycodone 5 mg tablet 2.5 - 5 mg PO Q4H PRN PRN Pain Score 4-10 #0 tabs 06/01/22 polyethylene glycol 3350 17 gram oral powder packet 17 g PO DAILY #0 ea 06/01/22 Hospital Course Summary of Care Provided Hospital Course: Patient is a 72-year-old female admitted 05/28/2022 due to fall with left hip pain. 1.? Acute traumatic left hip fracture secondary to mechanical fall- Underwent left hip hemiarthroplasty 05/30/2022.? As needed pain regimen.?Rehab at discharge for PT/OT. Patient reported neck discomfort following a fall as well. Cervical spine x-ray without acute process. Outpatient follow-up with orthopedic medicine in 2 weeks for x-rays and suture removal.? If patient is still in rehab unit, sutures can be removed on postop day 14 which is 06/12/2022.? Remove postop dressings on 06/04/2022 with incision left open to air. 2. Paroxysmal atrial fibrillation-Continue Eliquis and rate control regimen. 3. History of DVT/PE with underlying factor V Leiden deficiency-Eliquis resumed 05/31/2022. 4. Acute blood loss anemia on chronic normocytic anemia-appears stable. Initiated on iron supplementation. Acute blood loss expected outcome related to #1. 5. Chronic kidney disease stage IIIa-at baseline. Trend BMP. 6. Anxiety/depression-on amitriptyline, Depakote and citalopram. 7. Hypertension-stable, continue verapamil, valsartan, HCTZ. 8. Hyperlipidemia-not on statin. 9. Chronic migraines-on Galcanexumab injections as outpatient. 10. GERD-continue PPI. 11. VALENITN-CPAP nightly. Physical Exam Const alert and oriented x3 HEENT normocephalic and moist oral mucous membranes Eyes PERRL, EOMs intact bilaterally and conjunctivae normal Neck no lymphadenopathy Resp normal respiratory effort and clear to auscultation bilaterally Cardio regular rate, regular rhythm and no murmurs Peripheral Pulses: pulses 2+ throughout GI normal to inspection, nondistended, normoactive bowel sounds, non-tender and non-distended Extremity normal to inspection Skin no rashes or lesions noted Skin Narrative: Postop dressing intact Lesions: no lesions Rashes: no rashes Trauma: no lacerations or abrasions Neuro CN's II-XII intact bilaterally, no focal motor deficits, no sensory deficits noted and deep tendon reflexes 2+ bilaterally Psych mental status grossly normal and affect normal This patient was seen by LIZ Rojo under the supervision of Dr. Flaherty. Time spent examining patient, reviewing data and subsequent management of care: 22 minutes Patient seen and examined independently. Data and vitals reviewed. I agree with the above note by the nurse practitioner. 72-year-old female who was bending over while gardening and sustained a left femoral neck fracture. Patient was seen by Dr. Caceres, orthopedics, and patient underwent a left direct anterior hip hemiarthroplasty on the . Patient's course was otherwise uncomplicated and will be discharged to long term facility in stable condition. Physical exam: Patient is no acute distress and afebrile. Heart rate regular rate and rhythm plus S1-S2 with a murmurs Rubs. Lungs Are Clear to Auscultation Bilaterally. ABG / Lab / Microbiology Data Result Diagrams: 06/01/22 04:17 06/01/22 04:17 Discharge Plan Admission Admit Date/Time: 05/28/22 17:11 Primary Reason for Your Visit: Acute traumatic left hip fracture secondary to mechanical fall Attending Provider: Vic Flaherty Primary Care Provider: Desmond Riojas Chi Consulting Providers: Darrel Caceres ; Margot Ribeiro ; Logan Seymour Instructions Additional Instructions / Restrictions: Outpatient follow-up with orthopedic medicine in 2 weeks for x-rays and suture removal. If patient is still in rehab unit, sutures can be removed on postop day 14 which is 06/12/2022. Remove postop dressings on 06/04/2022 with incision left open to air. Discharge Orders/Prescriptions Prescriptions: New polyethylene glycol 3350 17 gram Powder In Packet 17 g PO DAILY Qty: 0 0RF acetaminophen 500 mg Tablet 1,000 mg PO Q8 Qty: 0 0RF ferrous sulfate [FeroSul] 325 mg (65 mg iron) Tablet 325 mg PO 1200,1700 Qty: 0 0RF oxycodone 5 mg Tablet 2.5 - 5 mg PO Q4H PRN PRN (Reason: Pain Score 4-10) Qty: 0 0RF Continued amitriptyline 25 mg tablet 25 mg PO QHS Emgality Syringe 120 mg/mL syringe 120 mg SC QMONTH multivitamin Tablet 1 tab PO DAILY valsartan-hydrochlorothiazide 320-12.5 mg tablet 1 tab PO DAILY calcium carbonate 600 mg calcium (1,500 mg) tablet 600 mg PO DAILY ergocalciferol (vitamin D2) 1,250 mcg (50,000 unit) capsule 1,250 mcg PO QWEEK potassium chloride 20 MEQ tablet 20 meq PO BID omeprazole 20 MG capsule 20 mg PO DAILY montelukast 10 MG tablet 10 mg PO DAILY verapamil 240 MG capsule,ext rel. pellets 24 hr 240 mg PO DAILY levocetirizine 5 MG tablet 5 mg PO DAILY divalproex [Depakote ER] 500 mg Tablet Extended Release 24 Hr 500 mg PO QHS apixaban 5 mg tablet 5 mg PO BID citalopram 40 mg tablet 40 mg PO DAILY Discontinued acetaminophen 500 mg Tablet 1,000 mg PO Q6H PRN PRN (Reason: Pain Score 1-5) Qty: 0 0RF Referrals / Follow Up: Darrel Caceres MD [Med Staff - Active Staff] - Within 2 Weeks Desmond Riojas Chi, MD [Primary Care Provider] - In 1 Week Disposition Disposition (needs filled in before D/C Order can be placed): Inpatient Rehab Unit/Facility Charges/Coding Visit Charges Inpatient E&M: 77695 Disch Hosp
--- NOTE | 2022-06-01 11:50 | CASEMGMT ---
Social Work SW received message from Jodie who stated pt has been accepted for Rehab Unit. Pt can go today. JETT informed pt DrJane of approval for [facility]. PLAN: Rehab Unit, 4th floor [facility] [place]
--- NOTE | 2022-06-01 12:39 | CASEMGMT ---
Social Work SW spoke with Jodie in [facility] post accute and [facility] is able to accept pt today. Physician has discharged pt. SW met with discussed that [facility] is the most appropriate placement for recovery (Pt was considering both [facility] and TCU) and informed that [facility] is able to accept pt today. SW explained rehab unit procedures and pt is agreeable to d/c to [facility]. With pt permission, phone call to pt son Eduin and VM left. Phone call to pt julianna Mai and updated on discharge plan and she is agreeable. Nursing updated that pt can discharge to at this time. [facility]
[2022-06-01] MEDS: Ferrous Sulfate 325 MG Tablet PO (12:58)
[2022-06-01] MEDS: 0.9% Saline Lock 10 ML Syringe IV (15:19)
[2022-06-01] MEDS: oxyCODONE 5 MG Tablet PO (15:21)
[2022-06-01 15:26] VITALS: BP 114/50; PULSE 79; RESP 18; TEMP 37.1; O2SAT 98
== END 2022-06-01 15:44 | DRG 522 ==
LOC: ED 17:27 → MS3 17:43
PROVIDERS: Anesthesiology; Nurse Practitioner Family; Specialist; Student in an Organized Health Care Education/Training Program; Admitting Provider Family Medicine; Emergency Provider Emergency Medicine; PCP Family Medicine Geriatric Medicine
PROC: 0SRS0J9 Replacement of Left Hip Joint, Femoral Surface with Synthetic Substitute, Cemented, Open Approach (ICD-10-PCS; CPT 27125; principal; 2022-05-30 07:10)
DX: S72.012A Unspecified intracapsular fracture of left femur, initial encounter for closed fracture (principal); D68.2 Hereditary deficiency of other clotting factors; E44.0 Moderate protein-calorie malnutrition; D62 Acute posthemorrhagic anemia; I48.0 Paroxysmal atrial fibrillation; N18.31 Chronic kidney disease, stage 3a; D64.9 Anemia, unspecified; E78.5 Hyperlipidemia, unspecified; W01.0XXA Fall on same level from slipping, tripping and stumbling without subsequent striking against object, initial encounter; F41.9 Anxiety disorder, unspecified; K21.9 Gastro-esophageal reflux disease without esophagitis; I12.9 Hypertensive chronic kidney disease with stage 1 through stage 4 chronic kidney disease, or unspecified chronic kidney disease; G47.33 Obstructive sleep apnea (adult) (pediatric); J30.9 Allergic rhinitis, unspecified; G43.709 Chronic migraine without aura, not intractable, without status migrainosus; E55.9 Vitamin D deficiency, unspecified; F32.A Depression, unspecified; Y93.H2 Activity, gardening and landscaping; Z86.718 Personal history of other venous thrombosis and embolism; Z79.899 Other long term (current) drug therapy; Z79.01 Long term (current) use of anticoagulants; E66.9 Obesity, unspecified; Z68.38 Body mass index [BMI] 38.0-38.9, adult; R53.81 Other malaise; Z86.711 Personal history of pulmonary embolism; Z66 Do not resuscitate; Z68.37 Body mass index [BMI] 37.0-37.9, adult
CPT/HCPCS: 36415; 72040; 73501; 73502; 76000; 80048; 80053; 82306; 83880; 84443; 85025; 85610; 85730; 86850; 86900; 86901; 88305; 88311; 93005; 97110; 97162; 97166; 97530; 97535; 99251; 99252; 99285; C1776; J7030; J7040; J7120; A4216; G0463; J2405

== ENCOUNTER 2022-06-01 03:57 | Inpatient (IN) | payer MEDICARE, OTHER, SELFPAY ==
[2022-06-01 16:08] VITALS: BMI 39.6
[2022-06-01 16:12] VITALS: BP 120/60; PULSE 76; RESP 18; TEMP 37; O2SAT 97
--- NOTE | 2022-06-01 16:59 | PCM.HP.STD ---
HPI - General General Date of Admission: 06/01/22 Date of Service: 06/01/22 Chief Complaint: Debility due to L hip fracture with ORIF HPI Narrative VIOLA BRADFORD, is a 72 YO F with a PMH of allergic rhinitis, history of VTE, factor V Leiden deficiency, hypertension, paroxysmal atrial fibrillation, chronic renal failure stage III, obesity, obstructive sleep apnea on CPAP, anxiety/depression, GERD, presbycusis, migraine headaches, hyperlipidemia, hypertension, OA and chronic anemia who presented to the ED at [facility] on 05/28/2022 after 2 separate falls while outside in the yard. The first fall she was in the garden and the second she landed on the left hip on the cement and had immediate intractable pain. X-ray in the emergency room showed a left femoral neck fracture with moderate varus deformity. She was admitted to the hospitalist service and Dr. Tunde Caceres was consulted from orthopedics. Eliquis was held in preparation for surgery. Based on the patient's health and activity level he recommended a partial hip replacement and Viola agreed. She was taken to surgery on 05/30/2022 and had left direct anterior hip hemiarthroplasty. Eliquis was restarted on the first post-operative day. Viola was seen and evaluated by PT/OT and they felt she would be appropriate for acute rehab. She was transferred to rehab on 06/01/22 for 3 hours of therapy daily to restore function at or near her baseline prior to the fall. Viola is the primary caregiver for her and she thinks he is developing dementia. He can not assist her at home so she will need to be functional at SD. She has a son and dtr who live locally and they will be caring for her in her absence. She tells me that she takes calcium and Vitamin D at home. She thinks her last bone density study was 1-2 years ago. It was in Oct and it showed A T score of -2.1 both in the left and right femoral necks. This is consistent with osteopenia. It had declined since the previous study. She had an echocardiogram in September 2020 that showed a left ventricular ejection fraction of 65% with no wall motion abnormalities. The left atrium was mildly enlarged. There was mild diffuse mitral valve thickening. There was no evidence of diastolic dysfunction. The vitamin D level on 05/27/2022 was adequate at 47.2. TSH is normal at 0.42. She was previously on Pravastatin and this was stopped about 1 yr ago because it was thought to be contributing to LE weakness......she tells me the weakness has improved a little since the Pravastatin was stopped. There is no recent Lipid panel in the EMR. All lab from this morning was personally reviewed. The BUN is 11 and the creatinine is 0.73 with a GFR of 83. Creatinine clearance however is estimated at 39. Calcium corrected for hypoalbuminemia is within normal limits. Potassium is 4.0. Hemoglobin is stable at 9.9. She has normochromic normocytic indices. The last time she had a normal hemoglobin was in November 2020. [facility] Medical History Allergic rhinitis Anterolisthesis Anxiety Atrial fibrillation Back pain Cardiology follow-up encounter Cataract Cellulitis of left lower leg CKD (chronic kidney disease) CKD (chronic kidney disease) CPAP (continuous positive airway pressure) dependence Deep vein thrombosis Depression DVT (deep venous thrombosis) Fall as cause of accidental injury at home as place of occurrence Fall due to ice or snow Family history of coronary artery disease Family history of CVA Family history of hypertension Gastric reflux Head injury without concussion or intracranial hemorrhage Hematoma of left lower extremity High cholesterol History of atrial fibrillation History of DVT (deep vein thrombosis) History of edema History of pain when walking History of stress test Hx of echocardiogram Hyperlipidemia Hypertension Injury of back Injury of head and neck Insomnia 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 lower leg with complication [facility] use of drug Long-term use of high-risk medication Malnourished Migraine headache Non-smoker Obesity, Class III, BMI 40-49.9 (morbid obesity) Open wound Open wound of left lower leg with complication VALENTIN (obstructive sleep apnea) Osteopenia Paroxysmal atrial fibrillation Presbycusis of both ears Scoliosis of lumbar spine Segmental and somatic dysfunction of lumbar region Segmental and somatic dysfunction of pelvic region Segmental and somatic dysfunction of thoracic region Skin necrosis Syncope Traumatic ulcer of left lower extremity Vasovagal near syncope Vision problems Walker as ambulation aid Wears glasses Wears hearing aid Home Medications levocetirizine 5 mg tablet 5 mg PO DAILY allergies 09/29/13 [History Last Taken 05/27/22] montelukast 10 mg tablet 10 mg PO DAILY Allergies 09/29/13 [History Last Taken 05/28/22] omeprazole 20 mg capsule,delayed release 20 mg PO DAILY GERD 09/29/13 [History Last Taken 05/28/22] potassium chloride 20 mEq tablet,extended release(part/cryst) 20 meq PO BID Supplement 09/29/13 [History Last Taken 05/28/22] verapamil 240 mg 24 hr capsule,extended release 240 mg PO DAILY BP 09/29/13 [History Last Taken 05/27/22] amitriptyline 25 mg tablet 25 mg PO QHS Mood 10/25/19 [History Last Taken 05/27/22] galcanezumab-gnlm 120 mg/mL subcutaneous syringe (Emgality) 120 mg subcut QMONTH Migraines 10/25/19 [History Last Taken 05/23/22 08:00] multivitamin 1 tab PO DAILY Supplement 04/26/20 [History Last Taken 05/27/22] divalproex 500 mg tablet,extended release 24 hr (Depakote ER) 500 mg PO QHS Check with primary doctor 01/31/21 [History Last Taken 05/27/22] apixaban 5 mg tablet 5 mg PO BID Blood thinner 02/21/21 [History Last Taken 05/28/22] valsartan 320 mg-hydrochlorothiazide 12.5 mg tablet 1 tab PO DAILY bp 05/27/21 [History Last Taken 05/28/22] calcium carbonate 600 mg calcium (1,500 mg) tablet 600 mg PO DAILY supplement 11/24/21 [History Last Taken 05/28/22] ergocalciferol (vitamin D2) 1,250 mcg (50,000 unit) capsule 1,250 mcg PO QWEEK supplement 11/24/21 [History Last Taken 05/27/22 07:00] citalopram 40 mg tablet 40 mg PO DAILY mood 05/28/22 [History Last Taken 06/01/22 08:00] acetaminophen 500 mg tablet 1,000 mg PO Q8 pain 06/01/22 [History Last Taken Unknown] ascorbic acid (vitamin C) 1,000 mg tablet,extended release (Vitamin C ER) 1,000 mg PO DAILY Supplement 06/01/22 [History Last Taken Unknown] ferrous sulfate 325 mg (65 mg iron) tablet (FeroSul) 325 mg PO DAILY supplement 06/01/22 [History Last Taken Unknown] oxycodone 5 mg tablet 2.5 - 5 mg PO Q4H PRN PRN Pain 06/01/22 [History Last Taken 06/01/22 15:20] polyethylene glycol 3350 17 gram oral powder packet 17 g PO DAILY bowel mobility 06/01/22 [History Last Taken Unknown] Allergy/AdvReac Type Severity Reaction Status Date / Time cefdinir Allergy Hives Verified 05/28/22 15:02 diphenhydramine HCl Allergy Hives Verified 05/28/22 15:02 [From Benadryl] Sulfa (Sulfonamide Allergy Hives Verified 05/28/22 15:02 Antibiotics) Family History Brother CAD (coronary artery disease) Mother CVA (cerebral vascular accident) CAD (coronary artery disease) Son Hypertension Daughter Hypertension Other Arthritis Cancer Diabetes Family history of CVA Family history of coronary artery disease Family history of hypertension Heart disease High cholesterol Kidney disease Thyroid disorder Surgical History History of bilateral knee replacement History of cholecystectomy History of incision and drainage History of total hysterectomy Hx of cataract extraction Social History household members: spouse housing: house number of children: 2 current occupational status: retired current occupational exposures/hazards: No pets and animals: No Smoking Status: Never smoker alcohol intake: never substance use type: does not use caffeine: Yes Type: tea what type of physical activity do you participate in: none seatbelt use: always do you feel safe at home: Yes additional social history: Does Not Take Aspirin Does Not Take Ibuprofen ROS Constitutional Constitutional: Reports weakness; Denies anorexia, change in weight, chills, fatigue, fever(s) or night sweats Eyes Eyes: Reports change in vision bilateral (due to cataracts); Denies blurry vision, discharge from eye(s), eye pain or loss of vision ENT HEENT: Reports headache(s) and hearing loss; Denies dysphagia, nasal congestion, sinus pain or sore throat Cardiovascular Cardiovascular: Reports edema, palpitations and weakness in extremities; Denies chest pain, dyspnea on exertion, lightheadedness, orthopnea, paroxysmal nocturnal dyspnea or syncope Respiratory/Chest Respiratory/Chest: Denies cough, dyspnea, shortness of breath at rest, shortness of breath with exertion or wheezing Gastrointestinal Gastrointestinal: Denies abdominal pain, constipation, diarrhea, dyspepsia, hematemesis, hematochezia, nausea or vomiting Genitourinary Genitourinary: Denies dysuria, hematuria, nocturia, urinary frequency, urinary hesitancy, urinary incontinence or urinary urgency Musculoskeletal Musculoskeletal: Reports back pain and joint pain; Denies joint swelling or neck pain Integumentary Integumentary: Denies change in pigmentation, non-healing lesions, rash or sores Neurologic Neurologic: Reports headache(s); Denies confusion, disequilibrium, dizziness, focal weakness, paresthesias, seizures or tremor(s) Psychiatric Psychiatric: Reports anxiety and depression; Denies behavioral changes, cognitive impairment, homicidal ideation or suicidal ideation Endocrine Endocrinology: Denies change in body appearance, polydipsia or polyuria Hematologic/Lymphatic Hematologic/Lymphatic: Reports easy bleeding and easy bruising; Denies lymphadenopathy Allergic/Immunologic Allergic/Immunologic: Reports rhinitis and asthma; Denies eczemia Vital Signs Vital Signs Vital Signs: 06/01/22 16:12 Temperature 98.6 F Temperature Source Temporal Pulse Rate 76 Respiratory Rate 18 Blood Pressure 120/60 Blood Pressure Mean 80 Blood Pressure Source Monitor Blood Pressure Position Supine Blood Pressure Location Right Arm Pulse Ox 97 Oxygen Delivery Method Room Air Weight Weight: 216 lb 9.6 oz Body Mass Index (BMI) 39.6 Physical Exam Const alert, oriented x3 and no apparent distress General Appearance: cooperative, well kempt and well developed HEENT normocephalic HEENT Narrative: Very dry mucous membranes Head and Scalp: normal to inspection and atraumatic Face and Sinus: face symmetric External Ear: other Other Details: Has bilateral hearing aids Eyes PERRL, EOMs intact bilaterally, conjunctivae normal and no scleral icterus Eyes Narrative: No discharge from the eyes and no mattering of the eyelids. Neck No nuchal rigidity, supple, no JVD and no carotid bruits General: trachea midline Chest Chest: symmetrical chest wall rise Resp normal respiratory effort, normal air movement, no use of accessory muscles and clear to auscultation bilaterally Effort and Inspection: able to speak in complete sentences Cardio regular rate, regular rhythm, S1 normal heart sound, S2 normal heart sound, no murmurs, no rub and no gallops Cardio Narrative: No ectopy. DP and radial pulses are 3/3 GI normal to inspection, nondistended, normoactive bowel sounds, soft to palpation and non-distended GI Narrative: She had some tenderness with palpation of the LLQ of the abd.......may be referred from the groin Extremity normal capillary refill and no calf tenderness Extremity Narrative: edema is controlled by the OSVALDO hose.....she tells me that since she had the laceration of the left leg her Left ankle swells at the end of the day. Skin no jaundice and no mottling Skin Narrative: The incision of the Left hip anteriorly is covered with a silver impregnated dressing that is not to be removed yet. There is no erythema around the dressing and the dressing is dry with no DC on it. General Skin Exam: no breakdown Neuro oriented x3, CN's II-XII intact bilaterally, moves all extremities, no focal motor deficits and no sensory deficits noted Psych mental status grossly normal, thought process normal, cooperative, affect normal, speech normal and activity/motor behavior normal Appearance: grossly normal and well kempt Attitude: calm Activity / Motor Behavior: appropriate eye contact; Negative for psychomotor agitation, psychomotor slowing or fidgetting Assessment & Plan Assessment/Plan (1) Debility: (2) Fall at home: (3) Closed fracture of left hip: (4) History of left hip hemiarthroplasty: (5) Acute postoperative anemia due to expected blood loss: (6) Anemia: PLAN: chronic....may be due to chronic anticoagulation for AF and Factor V Leiden deficiency (7) Paroxysmal atrial fibrillation: PLAN: Follows with Dr. Garzon (8) Long-term use of high-risk medication: PLAN: Eliquis (9) Factor 5 Leiden mutation, heterozygous: (10) Osteopenia: PLAN: On a bone density study in Oct 2020 (11) Hypertension: (12) Obstructive sleep apnea: PLAN: Compliant with CPAP at home (13) Gastroesophageal reflux disease: PLAN: Chronically on a PPI which can decrease bone density. she is taking Vitamin D and Calcium supplements (14) Depression: PLAN: She is currently on Citalopram 40 mg......The max dose in patients over 60 is 20 mg. Will taper down to 20 mg. She is also taking Elavil 25 mg at night and I believe this is for insomnia......previously taking Ambien (15) Chronic kidney disease: PLAN: GFR is in the 80's but, the creat clearance puts her at stage 3 B CRF. (16) Migraine: PLAN: On Depakote and Emgality (17) Osteoarthritis: (18) Anxiety: (19) Vision problems: (20) Cataract: (21) Presbycusis of both ears: PLAN: Wears bilateral hearing aids. PLAN: Plan PLAN PT for gait stability OT for ADL's Analgesics as needed Bowel protocol Fall precautions Assess for Anxiety/Depression GI prophylaxis with Prilosec DVT prophylaxis - she is on full dose Eliquis for hx of a Factor V Leyden deficiency and PAF Follow up with Dr. Riojas, Dr. Caceres and Dr. Garzon following DC from IP Rehab AM lab including Mag, Lipid panel, iron studies Hemoccult stool Taper the Citalopram to 20 mg daily over the course of her stay in rehab. The max dose in a patient of this age is 20 mg daily. DC Ceftirizine......she tells me that she is allergic and has not been taking it. Unit Exclusion This patient is an acute care inpatient being housed in the excluded unit because of capacity issues related to the disaster or emergency.: Yes Charges/Coding Visit Charges Inpatient E&M: 02947 Init Hosp L3
[2022-06-01 17:40] VITALS: O2SAT 95
[2022-06-01 19:13] LABS: Ferritin 72 ng/mL (8-252); Iron 13 ug/dL (50-170); Iron Binding Capacity,Total 237 ug/dL (250-450); PERCENT IRON SATURATION 5.5 % (15.0-55.0)
[2022-06-01 21:10] VITALS: BP 104/51; PULSE 70; RESP 20; TEMP 36.9; O2SAT 98
[2022-06-01] MEDS: Amitriptyline 25 MG Tablet PO (21:18)
[2022-06-01] MEDS: APIXABAN 5 MG TABLET PO (21:18)
[2022-06-01] MEDS: Montelukast 10 MG Tablet PO (21:18)
[2022-06-01] MEDS: Acetaminophen 500 MG Tablet 1000 MG PO (21:18)
[2022-06-01] MEDS: Divalproex (ER) 500 MG Tablet PO (21:19)
[2022-06-01] MEDS: oxyCODONE 5 MG Tablet PO (21:21)
[2022-06-02] MEDS: Acetaminophen 500 MG Tablet 1000 MG PO ×3 (05:21→21:16)
[2022-06-02 06:20] LABS: Cholesterol 149 mg/dL (200); High Density Lipoprotein 34 mg/dL; Triglycerides 90 mg/dL; Very Low Density Lipoprotein 18 mg/dL (5-40)
[2022-06-02] MEDS: oxyCODONE 5 MG Tablet PO ×3 (06:46→20:35)
[2022-06-02 07:30] VITALS: BP 130/66; PULSE 67; RESP 18; TEMP 36.2; O2SAT 98
[2022-06-02] MEDS: Pantoprazole Sodium 20 MG Tablet PO (08:52)
[2022-06-02] MEDS: Losartan Potassium 100 MG Tablet PO (08:52)
[2022-06-02] MEDS: Ascorbic Acid 500 MG Tablet 1000 MG PO (08:52)
[2022-06-02] MEDS: Ferrous Sulfate 325 MG Tablet PO (08:52)
[2022-06-02] MEDS: Potassium Chloride Oral Tablet 20 MEQ PO ×2 (08:52→17:05)
[2022-06-02] MEDS: Verapamil SR 240 MG Tablet PO (08:53)
[2022-06-02] MEDS: Calcium (Elemental) 500 MG Tablet PO (08:53)
[2022-06-02] MEDS: APIXABAN 5 MG TABLET PO ×2 (08:53→21:17)
[2022-06-02] MEDS: Citalopram 10 MG Tablet 30 MG PO (08:53)
[2022-06-02] MEDS: hydroCHLOROthiazide 12.5mg 12.5 MG PO (08:54)
--- NOTE | 2022-06-02 11:39 | PCM.RU.PYE ---
Admission Information Primary Diagnosis:: Debility due to fall resulting in a Left hip fracture. Status Changes from Prescreening?: No changes Identified Actual Problem List:: DVT (On chronic anticoagulation for hx of VTE due to Factor V Leyden deficiency.), Falls, Skin Intergrity, Pain, ALteration in Cmfrt, Mobility Impaired, Self Care Deficit and Alteration-Leisure Activ. Potential Problem List:: DVT, Bleeding, Infection, UTI, Aspiration, Falls, Skin Integrity and Depression Risk of Complications DVT: OSVALDO Nuñez and - (she is on Apixaban chronically for hx of VTE due to Factor V Leyden deficiency) Plan of Care Patient requires physician specializing in physical medicine and rehab oversight to provide close medical supervision of rehab issues including: Pain Management, Sleep Problems, Bowel and Bladder, Medical and co-morbidity Management, DVT prophylaxis, Rehabilitation Leadership and Coordination of treatment team Patient needs Physical Therapy: For a minimum of 1 hour and At least 5 out of 7 days Patient needs Physical Therapy to improve:: Mobility, Strengthening, Transfers, Stretching, ROM, Endurance, Stairs, Gait and Balance Patient needs Occupational Therapy: For a minimum of 1 hour and At least 5 out of 7 days Patient needs Occupational Therapy to improve ADL's incl.: Eating, Grooming, Bathing, Dressing, Toileting, Toilet transfers, Community Reintegration, Higher functioning activities, Household tasks, Adaptive Equipment, Splinting and Other activities as determined Patient requires 24/7 Rehabilitation Nursing for: Pain Issues, Identifying and preventing risk factors, Monitoring and reporting current medical conditions, Assisting with ambulation, transfer, and all ADL's, Teaching patients about disease process and medications, Family teaching, Providing safe environment, Bowel and Bladder Issues, Skin integrity and Medication Management Patient needs Electric Appliance Installer/ Case Management for: Discharge Planning, Arranging Home Equipment or Services and Family Interventions Patient needs Dietary and Nutrition Services for: Adequate Nutrition, Nutritional Supplements and Nutritional Education Goals Patient will remain: free from falls and or injury at time of discharge. Patient will perform bed mobility at: MOD I level of assist. Patient will complete transfers from bed to chair at: MOD I level of assist. Patient will propel wheelchair: - (200 ft with WW on various surfaces) Patient will complete upper body dressing at: MOD I level of assist. Patient will complete lower body dressing at: MOD I level of assist. Patient will complete toileting at: MOD I level of assist. (initially should have supervision for on and off the comfort height toilet and on and off the shower chair) Patient will perform bathing at: - (supervised) Patient will complete grooming at: MOD I level of assist. Patient will complete home management skills at: MOD I level of assist. Patient will achieve: - (1 curb step with WW) Patient will have pain level of: of 3 or less Patient's skin will: remain intact Patient will receive: adequate nutrition. Discharge Planning Pt Prognosis for Sig. Practical Improv. w/in Reasonable Time: Good Estimated Length of stay (days): 14 Anticipated D/C Destination: Home with Home Health Was Preadmission Assessment Accurate?: Yes
--- NOTE | 2022-06-02 11:44 | PCM.PROGNOTE ---
Subjective Subjective Afebrile VSS-blood pressure is well controlled and the heart rate is within normal limits. Maintaining appropriate oxygen saturation on RA Oral intake is adequate Discussed with nursing - no problems that need addressed Reviewed the PT/OT notes Medication list reviewed. All lab was personally reviewed. Serum iron is low at 13 and the iron saturation is only 5.5%. Ferritin is 72. Magnesium is normal at 2.0. Triglycerides are 90 and the total cholesterol is 149 with an LDL of 97 and a low HDL of 34. She slept well last night. Pain is controlled with the medication. Denies Nausea, calf pain, SOB, CP, dysuria, cough. She has pain in the left groin and left upper thigh anteriorly but, once she got medication today and got moving she was able to do therapy. She is in good spirits. Objective Data Objective Data Vital Signs: Vital Signs Temp Pulse Resp BP Pulse Ox O2 Del Method 97.2 F L 67 18 130/66 H 98 Room Air 06/02/22 07:30 06/02/22 07:30 06/02/22 07:30 06/02/22 07:30 06/02/22 07:30 06/02/22 07:30 Oxygen Delivery Method Room Air Weight: 216 lb 9.6 oz Body Mass Index (BMI) 39.6 Intake & Output: Intake and Output for Last 24 Hours 05/31/22 06/01/22 06/02/22 23:59 23:59 23:59 Intake Total 120 / 120 Balance 120 / 120 Lab / Micro Data Labs: Laboratory Results - last 24 hr 06/01/22 04:17: Iron 13 L, TIBC 237 L, Iron Saturation 5.5 L, Ferritin 72 06/02/22 05:05: Magnesium 2.0, Triglycerides 90, Cholesterol 149, LDL Cholesterol 97, VLDL Cholesterol 18, HDL Cholesterol 34 L Micro: Microbiology 06/02/22 04:03 Stool Stool Occult Blood ([facility]ICA) - Final Occult Blood Positive Physical Exam Const Constitutional Narrative: Lying in bed. Appears in no distress. Ate well for lunch. Pleasant. Looks a little pale. Resp Resp Narrative: CTA Cardio Cardio Narrative: RRR, no gallop GI GI Narrative: Soft, NT, ND, normal BS's (not hyperactive) Denies diarrhea......had 3 stools last night but they were formed and she attributes this to the stool softeners which she refused this AM. Extremity Extremity Narrative: no calf tenderness Assessment & Plan Assessment/Plan (1) Fall at home: (2) Closed fracture of left hip: (3) History of left hip hemiarthroplasty: (4) Iron deficiency anemia due to chronic blood loss: (5) Heme + stool: PLAN: Plan 1. Continue therapy 2. Iron sucrose 100 mg today and if no adverse reaction then give 200 mg daily X 3 doses and continue the Iron and Vitamin C.......she was taking oral iron at home and vitamin C and is still not absorbing.....may need to follow up with hematology going forward to receive IV iron. 3. In 1 week decrease the Citalopram to 20 mg daily which is the max dose in patients over 60 YOA 4. Lipid profile is good. She has no smoking hx, she is not diabetic, she has no hx of TIA/stroke/CAD. We discussed that I do not feel she needs a statin at this time but, we discussed Niaspan to improve the HDL and she is agreeable to trying this in the hospital. Will start Niaspan 500 mg Q HS Charges/Coding Multi Select Codes Visit Charges Visit Charges: 96917 Subs Hosp L2
[2022-06-02] MEDS: Sodium Ferric Gluconat 125 MG in 0.9% Normal Saline 100 ML 110 MG IV (13:24)
[2022-06-02] MEDS: 0.9% Saline Lock 10 ML Syringe IV (15:33)
[2022-06-02 21:06] VITALS: BP 101/42; PULSE 77; PULSE 80; RESP 14; RESP 18; TEMP 36.6; TEMP 36.9; O2SAT 92; O2SAT 97
[2022-06-02] MEDS: Amitriptyline 25 MG Tablet PO (21:16)
[2022-06-02] MEDS: Montelukast 10 MG Tablet PO (21:16)
[2022-06-02] MEDS: Divalproex (ER) 500 MG Tablet PO (21:16)
[2022-06-02] MEDS: Niacin SA 500 MG Tablet PO (21:16)
[2022-06-02] MEDS: Nystatin Powder 15gm Bottle 1 APPLIC TOPICAL (21:22)
[2022-06-03] MEDS: Acetaminophen 500 MG Tablet 1000 MG PO ×3 (05:30→20:37)
[2022-06-03] MEDS: 0.9% Saline Lock 10 ML Syringe IV ×3 (05:30→20:43)
[2022-06-03] MEDS: Nystatin Powder 15gm Bottle 1 APPLIC TOPICAL ×2 (05:37→20:50)
[2022-06-03] MEDS: Potassium Chloride Oral Tablet 20 MEQ PO ×2 (07:46→16:59)
[2022-06-03] MEDS: Ferrous Sulfate 325 MG Tablet PO (07:46)
[2022-06-03] MEDS: Ascorbic Acid 500 MG Tablet 1000 MG PO (07:47)
[2022-06-03] MEDS: Calcium (Elemental) 500 MG Tablet PO (07:47)
[2022-06-03] MEDS: oxyCODONE 5 MG Tablet PO ×3 (08:04→16:59)
[2022-06-03 08:53] VITALS: BP 117/66; PULSE 69; RESP 18; TEMP 36.8; O2SAT 97
[2022-06-03] MEDS: Citalopram 10 MG Tablet 30 MG PO (09:27)
[2022-06-03] MEDS: Losartan Potassium 100 MG Tablet PO (09:27)
[2022-06-03] MEDS: Verapamil SR 240 MG Tablet PO (09:27)
[2022-06-03] MEDS: hydroCHLOROthiazide 12.5mg 12.5 MG PO (09:27)
[2022-06-03] MEDS: APIXABAN 5 MG TABLET PO ×2 (09:27→20:37)
[2022-06-03] MEDS: Pantoprazole Sodium 20 MG Tablet PO (09:27)
[2022-06-03 19:39] VITALS: BP 93/47; PULSE 82; RESP 18; TEMP 36.6; O2SAT 96
[2022-06-03 19:56] VITALS: PULSE 74; RESP 18; O2SAT 96
[2022-06-03 20:02] VITALS: BP 99/48
[2022-06-03] MEDS: Amitriptyline 25 MG Tablet PO (20:36)
[2022-06-03] MEDS: Niacin SA 500 MG Tablet PO (20:37)
[2022-06-03] MEDS: Divalproex (ER) 500 MG Tablet PO (20:37)
[2022-06-03] MEDS: Montelukast 10 MG Tablet PO (20:37)
--- NOTE | 2022-06-04 04:37 | NURSING ---
REVIEWED AND AGREE WITH BOOT REPAIRER'S FUNCTIONAL ASSESSMENT AND HANDOFF CHARTING.
[2022-06-04] MEDS: Acetaminophen 500 MG Tablet 1000 MG PO ×3 (05:36→21:52)
[2022-06-04] MEDS: Nystatin Powder 15gm Bottle 1 APPLIC TOPICAL ×2 (05:43→20:37)
[2022-06-04 08:03] VITALS: BP 105/49; PULSE 72; RESP 18; TEMP 36.8; O2SAT 99
[2022-06-04] MEDS: Ferrous Sulfate 325 MG Tablet PO (08:06)
[2022-06-04] MEDS: Calcium (Elemental) 500 MG Tablet PO (08:06)
[2022-06-04] MEDS: Citalopram 10 MG Tablet 30 MG PO (08:06)
[2022-06-04] MEDS: Losartan Potassium 100 MG Tablet PO (08:06)
[2022-06-04] MEDS: Potassium Chloride Oral Tablet 20 MEQ PO ×2 (08:06→18:04)
[2022-06-04] MEDS: Senna/Docusate Sodium 1 Tablet 2 TABLET PO (08:06)
[2022-06-04] MEDS: Ascorbic Acid 500 MG Tablet 1000 MG PO (08:07)
[2022-06-04] MEDS: Pantoprazole Sodium 20 MG Tablet PO (08:07)
[2022-06-04] MEDS: APIXABAN 5 MG TABLET PO ×2 (08:07→20:34)
[2022-06-04] MEDS: hydroCHLOROthiazide 12.5mg 12.5 MG PO (08:07)
[2022-06-04] MEDS: Verapamil SR 240 MG Tablet PO (08:07)
[2022-06-04] MEDS: oxyCODONE 5 MG Tablet PO ×3 (08:11→20:33)
[2022-06-04] MEDS: Menthol/Lanolin/Calamine/Znox 113 GM Tube 1 APPLIC TOPICAL ×2 (08:13→20:36)
--- NOTE | 2022-06-04 09:47 | CASEMGMT ---
Social Work IDT met with patient and dtr via conference call for Team meeting. Discussed patient's progress in PT/OT/SN. Educated to [employer] benefit - approved 12 days with EDC 06/13. Pts goal is to return home alone. Pt is primary caregiver for with Dementia. Pt will need to PLOF to return home. SW to continue to follow to assist with DC planning. Kala Cam, HARDWARE INSTALLATION COORDINATOR ANTENNA RIGGER
[2022-06-04 09:53] VITALS: BP 108/64
--- NOTE | 2022-06-04 10:21 | PN_ITS ---
Subjective Subjective Viola was seen on team rounds today. Her daughter Pau participated by phone. Afebrile VSS BP were a little low through the night. The lowest was 93/47 with a mean of 62. Current BP is 108/64 and she denies lightheadedness. Maintaining appropriate oxygen saturation on RA Oral intake of fluid is poor. MM are dry and she is taking HCTZ for HTN. Discussed with nursing - no problems that need addressed Reviewed the PT/OT notes Medication list reviewed. Viola tells me that she slept well last night and her pain is adequately controlled. Pain is at it's worst when she has been sitting for a while and she goes from sitting to standing. After she has taken some steps it eases up some. Appetite is good. She denies CP, SOB, palpitations, calf pain, dysuria, N/V/D/C, abd pain. Not having any quadriceps spasms. Objective Data Objective Data Vital Signs: Vital Signs Temp Pulse Resp BP Pulse Ox O2 Del Method O2 Flow Rate 98.3 F 72 18 108/64 99 Room Air 2 06/04/22 08:03 06/04/22 08:03 06/04/22 08:03 06/04/22 09:53 06/04/22 08:03 06/04/22 08:03 06/03/22 08:53 Oxygen Flow Rate (L/min) 2 Oxygen Delivery Method Room Air Weight: 210 lb 12.191 oz Body Mass Index (BMI) 39.6 Intake & Output: Intake and Output for Last 24 Hours 06/02/22 06/03/22 06/04/22 23:59 23:59 23:59 Intake Total 470 / 470 360 / 360 240 / 240 Output Total 250 / 250 0 / 0 Balance 220 / 220 360 / 360 240 / 240 Lab / Micro Data Micro: Microbiology 06/02/22 04:03 Stool Stool Occult Blood (MONICA) - Final Occult Blood Positive Physical Exam Const Constitutional Narrative: Alert, sitting in the recliner at the bedside and looks to be in no acute distress. She is pleasant, asking appropriate questions and listening intently to the therapist reports. HEENT HEENT Narrative: Mucous membranes are dry Resp Resp Narrative: Good respiratory effort, clear to auscultation throughout. Cardio Cardio Narrative: Regular rate and rhythm, no gallops. GI GI Narrative: Soft, nontender, nondistended, normal bowel sounds, no guarding with palpation, no suprapubic pain with palpation. Skin Skin Narrative: No rashes and no skin breakdown. Neuro Neuro Narrative: No focal neurologic deficits Assessment & Plan Assessment/Plan (1) Debility: PLAN: Continue PT/OT. (2) Fall: (3) Closed left hip fracture: (4) History of left hip hemiarthroplasty: PLAN: 05/30/2022-left direct anterior hip hemiarthroplasty by Dr. Tunde Caceres (5) Acute postoperative anemia due to expected blood loss: PLAN: She has acute blood loss anemia on chronic iron deficiency anemia (6) Factor 5 Leiden mutation, heterozygous: (7) Long-term use of high-risk medication: PLAN: Apixaban 5 mg p.o. twice daily (8) Paroxysmal atrial fibrillation: (9) Iron deficiency anemia due to chronic blood loss: PLAN: Give 200 mg Iron sucrose daily for 2 days making a total of 500 mg IV while in rehab. I suspect she may need iron infusions periodically going forwar d since she does not seem to be absorbing the iron + vitamin C she is taking daily at home. Will schedule her an appt with Dr. Radford post DC from rehab. (10) Heme + stool: PLAN: May need a GI w/U. (11) Depression: PLAN: Continue to taper Citalopram down to 20 mg daily which is the max dose of the medication in patients of this age group. PLAN: Plan Encourage increased fluid intake and DC the HCTZ. Continue OSVALDO hose for compression of the legs when she is out of bed. I made Pau aware of change in Citalopram dose, iron deficiency and discontinuation of HCTZ. Charges/Coding Visit Charges Inpatient E&M: 26891 Subs Hosp L2
[2022-06-04 18:50] VITALS: BP 97/45; PULSE 69; RESP 16; TEMP 36.9; O2SAT 95
[2022-06-04] MEDS: Amitriptyline 25 MG Tablet PO (20:34)
[2022-06-04] MEDS: Divalproex (ER) 500 MG Tablet PO (20:34)
[2022-06-04] MEDS: Niacin SA 500 MG Tablet PO (20:35)
[2022-06-04] MEDS: Montelukast 10 MG Tablet PO (20:35)
[2022-06-05 05:47] VITALS: BP 100/71; BP 121/66; BP 127/64; PULSE 68; PULSE 74; PULSE 81
[2022-06-05] MEDS: Acetaminophen 500 MG Tablet 1000 MG PO ×3 (05:59→21:51)
[2022-06-05] MEDS: Nystatin Powder 15gm Bottle 1 APPLIC TOPICAL ×2 (06:00→23:19)
--- NOTE | 2022-06-05 06:37 | NURSING ---
Reviewed and agree with SUPPLY AIDE assessment and handoff.
[2022-06-05 07:51] VITALS: BP 121/66; PULSE 73; RESP 18; TEMP 36.8; O2SAT 97
[2022-06-05] MEDS: Ferrous Sulfate 325 MG Tablet PO (08:12)
[2022-06-05] MEDS: Calcium (Elemental) 500 MG Tablet PO (08:13)
[2022-06-05] MEDS: Verapamil SR 240 MG Tablet PO (08:13)
[2022-06-05] MEDS: Ascorbic Acid 500 MG Tablet 1000 MG PO (08:13)
[2022-06-05] MEDS: Potassium Chloride Oral Tablet 20 MEQ PO ×2 (08:13→17:25)
[2022-06-05] MEDS: Pantoprazole Sodium 20 MG Tablet PO (08:14)
[2022-06-05] MEDS: Citalopram 10 MG Tablet 30 MG PO (08:14)
[2022-06-05] MEDS: Losartan Potassium 100 MG Tablet PO (08:14)
[2022-06-05] MEDS: Polyethylene Glycol 3350 17 GM PACKET PO (08:14)
[2022-06-05] MEDS: Senna/Docusate Sodium 1 Tablet 2 TABLET PO (08:15)
[2022-06-05] MEDS: APIXABAN 5 MG TABLET PO ×2 (08:15→21:50)
[2022-06-05] MEDS: Menthol/Lanolin/Calamine/Znox 113 GM Tube 1 APPLIC TOPICAL ×2 (08:21→21:49)
[2022-06-05 10:00] VITALS: RESP 14
[2022-06-05] MEDS: Sodium Ferric Gluconat 250 MG in 0.9% Normal Saline 250 ML 135 MG IV (10:16)
[2022-06-05] MEDS: 0.9% Saline Lock 10 ML Syringe IV (10:16)
[2022-06-05 19:33] VITALS: BP 106/49; PULSE 77; RESP 14; TEMP 36.7; O2SAT 97
[2022-06-05] MEDS: oxyCODONE 5 MG Tablet PO (20:07)
[2022-06-05] MEDS: Divalproex (ER) 500 MG Tablet PO (21:49)
[2022-06-05] MEDS: Niacin SA 500 MG Tablet PO (21:50)
[2022-06-05] MEDS: Montelukast 10 MG Tablet PO (21:50)
[2022-06-05] MEDS: Amitriptyline 25 MG Tablet PO (21:50)
--- NOTE | 2022-06-06 04:02 | NURSING ---
Reviewed and agree with Billie Mendoza LPN, documentation and assessment charting.
[2022-06-06] MEDS: oxyCODONE 5 MG Tablet PO (04:49)
[2022-06-06] MEDS: 0.9% Saline Lock 10 ML Syringe IV ×3 (06:01→13:26)
[2022-06-06] MEDS: Acetaminophen 500 MG Tablet 1000 MG PO ×3 (06:03→20:52)
[2022-06-06] MEDS: Nystatin Powder 15gm Bottle 1 APPLIC TOPICAL ×2 (06:32→20:51)
[2022-06-06 07:57] VITALS: BP 114/56; PULSE 77; RESP 16; TEMP 36.4; O2SAT 98
[2022-06-06] MEDS: APIXABAN 5 MG TABLET PO ×2 (08:09→20:52)
[2022-06-06] MEDS: Potassium Chloride Oral Tablet 20 MEQ PO ×2 (08:09→16:52)
[2022-06-06] MEDS: Ascorbic Acid 500 MG Tablet 1000 MG PO (08:10)
[2022-06-06] MEDS: Losartan Potassium 100 MG Tablet PO (08:10)
[2022-06-06] MEDS: Senna/Docusate Sodium 1 Tablet 2 TABLET PO (08:10)
[2022-06-06] MEDS: Ferrous Sulfate 325 MG Tablet PO (08:10)
[2022-06-06] MEDS: Verapamil SR 240 MG Tablet PO (08:10)
[2022-06-06] MEDS: Pantoprazole Sodium 20 MG Tablet PO (08:10)
[2022-06-06] MEDS: Citalopram 10 MG Tablet 30 MG PO (08:11)
[2022-06-06] MEDS: Calcium (Elemental) 500 MG Tablet PO (08:13)
[2022-06-06] MEDS: Menthol/Lanolin/Calamine/Znox 113 GM Tube 1 APPLIC TOPICAL (08:18)
[2022-06-06] MEDS: Sodium Ferric Gluconat 250 MG in 0.9% Normal Saline 250 ML 135 MG IV (13:17)
[2022-06-06 20:15] VITALS: BP 103/47; PULSE 71; RESP 15; TEMP 36.7; O2SAT 96
[2022-06-06] MEDS: Amitriptyline 25 MG Tablet PO (20:52)
[2022-06-06] MEDS: Divalproex (ER) 500 MG Tablet PO (20:52)
[2022-06-06] MEDS: Montelukast 10 MG Tablet PO (20:52)
[2022-06-06] MEDS: Niacin SA 500 MG Tablet PO (20:52)
[2022-06-07] MEDS: 0.9% Saline Lock 10 ML Syringe IV (05:31)
[2022-06-07] MEDS: Acetaminophen 500 MG Tablet 1000 MG PO ×3 (05:32→21:23)
[2022-06-07] MEDS: Nystatin Powder 15gm Bottle 1 APPLIC TOPICAL ×2 (05:34→21:24)
[2022-06-07 07:41] VITALS: O2SAT 97
[2022-06-07] MEDS: Ferrous Sulfate 325 MG Tablet PO (07:45)
[2022-06-07] MEDS: Ascorbic Acid 500 MG Tablet 1000 MG PO (07:45)
[2022-06-07] MEDS: Verapamil SR 240 MG Tablet PO (07:45)
[2022-06-07] MEDS: Senna/Docusate Sodium 1 Tablet 2 TABLET PO ×2 (07:45→21:23)
[2022-06-07] MEDS: Citalopram 10 MG Tablet 30 MG PO (07:46)
[2022-06-07] MEDS: Pantoprazole Sodium 20 MG Tablet PO (07:46)
[2022-06-07] MEDS: Potassium Chloride Oral Tablet 20 MEQ PO ×2 (07:46→17:03)
[2022-06-07] MEDS: APIXABAN 5 MG TABLET PO ×2 (07:46→21:23)
[2022-06-07] MEDS: Menthol/Lanolin/Calamine/Znox 113 GM Tube 1 APPLIC TOPICAL (07:46)
[2022-06-07] MEDS: Calcium (Elemental) 500 MG Tablet PO (07:51)
[2022-06-07] MEDS: Losartan Potassium 100 MG Tablet PO (08:01)
[2022-06-07 08:03] VITALS: BP 98/53; PULSE 70; RESP 16; TEMP 37.1; O2SAT 98
[2022-06-07] MEDS: Polyethylene Glycol 3350 17 GM PACKET PO (11:02)
[2022-06-07 21:00] VITALS: BP 105/49; PULSE 74; RESP 16; TEMP 36.8; O2SAT 98
[2022-06-07] MEDS: oxyCODONE 5 MG Tablet PO (21:22)
[2022-06-07] MEDS: Amitriptyline 25 MG Tablet PO (21:23)
[2022-06-07] MEDS: Divalproex (ER) 500 MG Tablet PO (21:23)
[2022-06-07] MEDS: Niacin SA 500 MG Tablet PO (21:23)
[2022-06-07] MEDS: Montelukast 10 MG Tablet PO (21:29)
--- NOTE | 2022-06-08 04:27 | NURSING ---
Reviewed and agree with JOURNEYMAN MOLDER assessment and handoff.
[2022-06-08] MEDS: 0.9% Saline Lock 10 ML Syringe IV ×2 (05:18→20:50)
[2022-06-08] MEDS: Acetaminophen 500 MG Tablet 1000 MG PO ×3 (05:47→20:59)
[2022-06-08] MEDS: Nystatin Powder 15gm Bottle 1 APPLIC TOPICAL ×2 (05:48→20:57)
[2022-06-08 07:20] VITALS: BP 105/58; PULSE 74; RESP 16; TEMP 35.7; O2SAT 99
[2022-06-08] MEDS: Pantoprazole Sodium 20 MG Tablet PO (07:52)
[2022-06-08] MEDS: Losartan Potassium 100 MG Tablet PO (07:52)
[2022-06-08] MEDS: Ferrous Sulfate 325 MG Tablet PO (07:52)
[2022-06-08] MEDS: Potassium Chloride Oral Tablet 20 MEQ PO ×2 (07:52→16:18)
[2022-06-08] MEDS: Calcium (Elemental) 500 MG Tablet PO (07:52)
[2022-06-08] MEDS: Ascorbic Acid 500 MG Tablet 1000 MG PO (07:52)
[2022-06-08] MEDS: Polyethylene Glycol 3350 17 GM PACKET PO (07:53)
[2022-06-08] MEDS: APIXABAN 5 MG TABLET PO ×2 (07:53→20:58)
[2022-06-08] MEDS: Citalopram 10 MG Tablet 30 MG PO (07:53)
[2022-06-08] MEDS: Senna/Docusate Sodium 1 Tablet 2 TABLET PO (07:53)
[2022-06-08] MEDS: Verapamil SR 240 MG Tablet PO (07:53)
[2022-06-08] MEDS: Ergocalciferol 1.25 MG (50, 000 UNIT) Capsule PO (07:54)
[2022-06-08] MEDS: Menthol/Lanolin/Calamine/Znox 113 GM Tube 1 APPLIC TOPICAL ×2 (08:09→20:58)
[2022-06-08 08:30] VITALS: O2SAT 96
--- NOTE | 2022-06-08 14:32 | PCM.PROGNOTE ---
Subjective Subjective Afebrile VSS - BPs are a little on the low side. Maintaining appropriate oxygen saturation on RA Oral intake is adequate Discussed with nursing - no problems that need addressed Reviewed the PT/OT notes Medication list reviewed. She is still having some pain in the Left hip. She is currently on scheduled Tylenol 1000 mg every 8 hours and she has been taking 1 oxycodone 5 mg daily, usually prior to therapy in the morning. Viola denies chest pain, palpitations, shortness of breath, nausea/vomiting/abdominal pain, dysuria, calf pain, lightheadedness. She has a tense expression on her face that was not there last week. She does not feel that she is strong enough to go home yet. 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 She is worried that she will not heal well if she is forced into going home before she is strong enough to care for her . Objective Data Objective Data Vital Signs: Vital Signs Temp Pulse Resp BP Pulse Ox O2 Del Method O2 Flow Rate 96.3 F L 74 16 105/58 L 96 Room Air 2 06/08/22 07:20 06/08/22 07:20 06/08/22 07:20 06/08/22 07:20 06/08/22 08:30 06/08/22 08:30 06/05/22 20:05 Oxygen Flow Rate (L/min) 2 Oxygen Delivery Method Room Air Weight: 210 lb 12.191 oz Body Mass Index (BMI) 39.6 Intake & Output: Intake and Output for Last 24 Hours 06/06/22 06/07/22 06/08/22 23:59 23:59 23:59 Intake Total 1230 / 1230 1170 / 1170 420 / 420 Output Total 1450 / 1450 1600 / 1900 1050 / 1050 Balance -220 / -220 -430 / -730 -630 / -630 Lab / Micro Data Micro: Microbiology 06/02/22 04:03 Stool Stool Occult Blood (MONICA) - Final Occult Blood Positive Physical Exam Const alert Constitutional Narrative: forgetful today. I think this is because she is preoccupied with being discharged home on the . She looks worried and her brow is furrowed. General Appearance: cooperative Resp normal respiratory effort and clear to auscultation bilaterally Cardio regular rate, regular rhythm and no gallops GI normal to inspection, nondistended, normoactive bowel sounds, soft to palpation and non-tender Extremity no calf tenderness Skin General Skin Exam: no breakdown Rashes: no rashes Assessment & Plan Assessment/Plan (1) Debility: PLAN: Continue therapy. I discussed with the SW possible admission for additional therapy following rehab because currently she is not able to do everything she needs to do to take care of not only herself but, also her who sounds as though he is dysfunctional/non-functional and needs assist with everything. (2) Fall: (3) Closed left hip fracture: (4) History of left hip hemiarthroplasty: (5) Iron deficiency anemia due to chronic blood loss: (6) Heme + stool: (7) Osteopenia: (8) Factor 5 Leiden mutation, heterozygous: (9) Long-term use of high-risk medication: (10) Anxiety: (11) Depression: PLAN: Plan 1. Decrease the citalopram to 20 mg which is the max dose for a patient in this age group. 2. Decrease the Cozaar to 50 mg daily and continue to monitor the BP 3. Recheck a CBC, BMP, mag and phos in the AM. 4. D/W the SW after talking with Viola today and she is interested in having some counselling to help with chronic depression. She is perseverating on having to go back home and live with her who has had 3 strokes, has vertigo and probable dementia. She tells me that he does nothing at home except sit around in his underwear watching westerns on TV. Will not even get dressed if she asks him and this has been socially isolating for her because friends and family have stopped coming over. The SW is going to give her a list of local therapists she could go to. She does not want to leave her house but, she told me that she was having trouble caring for her even prior to the fractured hip. I do not think adding another antidepressant is going to be helpful because this depression is situational and the situation at home is not going to improve. 5. She would like to go to TCU for more therapy prior to going home. I think this would be a good idea since she tells me that she is unable to get her legs in to bed yet without assistance. She could do with some more strength prior to going home and having to take care of everything herself again. Charges/Coding Visit Charges Inpatient E&M: 74413 Subs Hosp L2
--- NOTE | 2022-06-08 15:52 | CASEMGMT ---
Social Work Received hand off from staff that patient expressing angst about DC home. SW met with pt to inquire. Provided supportive listening. Pt expressed not being able to do the grocery shopping, cooking, laundry, cleaning, taking his insulin, and pt feeling overwhelmed. Pt explained her children have been supportive and helping her . Children stated mom, you've spoiled him too much. Pt agrees she was used to doing everything but his showers for him. SW acknowledged and validated feelings. Educated to some community resources available and problem solved with pt. Pt agreed to having her children and self continue supervising/assisting with 's insulin/meds since pt reports does have start of Alzheimer's. Children will assist pt with online grocery shopping/delivery/sweet pickle maker. SW provided resources for home delivered meals and nonskilled [employer]. Pt states she has hired someone to do cleaning every other week. Pt concerned about showering initially and staying strong. Pt educated to ordering skilled HHC - PT/OT/SN/BOBBY/JETT and HEP from therapy. [facility] social media editor can continue to follow to ensure transition home is going smoothly, connect with other needed community resources, and if home is not successful, educated to SW assisting with placement to a SNF. Pt appreciative of all of the information and feels relief with knowing she will have support, but she isn't stuck at home if it is not going well. JETT also noted the overall anxiety of pt and offered counseling at [place]. Pt agreed stating her PCP suggested counseling before and so did THEODORA Hawley. JETT provided counseling resources and offered to schedule first appt. Pt agreed and requested [facility], however, concerned about transport. JETT provided transportation resources and offered to coordinate transport with first appt. Pt appreciative. SW offered ongoing supportive visits and will have Team meeting on . SW summarized conversation. Offered skilled HHC list with quality and data information, but pt used [facility] prior and denies list to request another agency. pt denies DME needs. Dtr can transport at [place]. Referral made to [facility] via [facility] and left message with intake. Plan: DC home with 06/13, having children support and community resources, [facility] PT/OT/SN/BOBBY/ALEXIS JallohW
--- NOTE | 2022-06-08 15:55 | CASEMGMT ---
Social Work Contacted [facility]. Each therapist make their own appointments and select patients. Faxed clinical information, per request, and a therapist will contact the pt directly to schedule an appt. SW requested [facility] to contact this worker with appointment date/time to place in [place] information. Kala Cam, ALEXIS MURRELL
[2022-06-08] MEDS: oxyCODONE 5 MG Tablet PO (16:17)
[2022-06-08 19:42] VITALS: BP 111/53; PULSE 78; RESP 16; TEMP 36.7; O2SAT 98
[2022-06-08] MEDS: Amitriptyline 25 MG Tablet PO (20:59)
[2022-06-08] MEDS: Niacin SA 500 MG Tablet PO (21:00)
[2022-06-08] MEDS: Montelukast 10 MG Tablet PO (21:00)
[2022-06-08] MEDS: Divalproex (ER) 500 MG Tablet PO (21:01)
--- NOTE | 2022-06-09 02:46 | NURSING ---
Reviewed and agree with Billie Mendoza LPN documentation and assessment charting.
[2022-06-09 05:40] LABS: Hematocrit 26.4 % (37-47); Hemoglobin 8.5 g/dL (12.0-15.0); Mean Corp Hgb Conc 32.2 g/dL (32-36); Mean Corpuscular Hgb 30.4 pg (27.0-32.0); Mean Corpuscular Volume 94.3 fL (81-99); Mean Platelet Vol. 9.2 fl (6.2-12.0); Platelet Count 324 K/mm3 (150-450); RBC Distribution Width CV 16.4 % (11.6-14.6); RBC Distribution Width SD 54.7 fl (35.1-43.9); White Blood Count 6.7 K/mm3 (4.4-11.0)
[2022-06-09 05:56] LABS: Anion Gap 6 (5-15); BUN 14 mg/dL (7-18); BUN/Creat Ratio 17.5 RATIO (10-20); Calcium,Total 8.4 mg/dL (8.5-10.1); Chloride 103 mmol/L (98-107); EST Glomerular Filtration Rate 75 mL/min (>60); Est Glom Filt Rate - Afr Amer 90 mL/min (>60); Glucose 88 mg/dL (74-106); Magnesium 2.3 mg/dL (1.6-2.6); Phosphorus 3.4 mg/dL (2.5-4.9); Potassium 4.1 mmol/L (3.5-5.1); Sodium Level 135 mmol/L (136-145)
[2022-06-09] MEDS: Acetaminophen 500 MG Tablet 1000 MG PO ×3 (06:14→21:27)
[2022-06-09] MEDS: Nystatin Powder 15gm Bottle 1 APPLIC TOPICAL ×2 (06:14→21:28)
[2022-06-09 07:30] VITALS: BP 108/53; PULSE 82; RESP 18; TEMP 36.7; O2SAT 95
[2022-06-09] MEDS: Calcium (Elemental) 500 MG Tablet PO (07:51)
[2022-06-09] MEDS: APIXABAN 5 MG TABLET PO ×2 (07:52→21:28)
[2022-06-09] MEDS: Ferrous Sulfate 325 MG Tablet PO (07:52)
[2022-06-09] MEDS: Verapamil SR 240 MG Tablet PO (07:52)
[2022-06-09] MEDS: Potassium Chloride Oral Tablet 20 MEQ PO ×2 (07:52→18:27)
[2022-06-09] MEDS: Pantoprazole Sodium 20 MG Tablet PO (07:52)
[2022-06-09] MEDS: Citalopram 20 MG Tablet PO (07:53)
[2022-06-09] MEDS: Ascorbic Acid 500 MG Tablet 1000 MG PO (07:53)
[2022-06-09] MEDS: Losartan Potassium 50 MG Tablet PO (07:54)
[2022-06-09] MEDS: Senna/Docusate Sodium 1 Tablet 2 TABLET PO (07:55)
[2022-06-09] MEDS: Menthol/Lanolin/Calamine/Znox 113 GM Tube 1 APPLIC TOPICAL ×2 (10:26→20:01)
--- NOTE | 2022-06-09 11:27 | PN_ITS ---
Subjective Subjective Afebrile VSS Maintaining appropriate oxygen saturation on RA Oral intake is good Discussed with nursing - no problems that need addressed Reviewed the PT/OT/ST notes Medication list reviewed. She is tolerating the Niaspan without adverse effect. Will get a HDL in about 6 weeks to see if the HDL has gone up. All lab was personally reviewed. Hemoglobin is down to 8.5 from 9.2 on 05/31/2022. She has received 500 mg of iron sucrose since admission and is currently on iron orally with a vitamin C supplement. Sodium is mildly decreased at 135, potassium is 4.1 and the BUN is 14 with a stable creatinine at 0.8. Phosphorus and magnesium are within normal limits. She has been unable to get her shoes on with the NIA wraps in place and the NIA wraps slide down to mid calf on the left, more likely than not due to the defect about mid calf from injury and surgery in the past. Will measure her and get Circaids ordered. I reviewed the note from the SW yesterday and she provided emotional support for Viola and provided resources for getting some help in caring for her , online grocery shopping and delivery, [employer]. Viola has decided she will go home on 06/13 and she will have [facility] PT/OT/SN/BOBBY/SW at [place]. Denies hot flashes, CP, palpitations, SOB, cough, dysuria, N/V/Abd pain, lighth eadedness. Objective Data Objective Data Vital Signs: Vital Signs Temp Pulse Resp BP Pulse Ox O2 Del Method O2 Flow Rate 98.0 F 82 18 108/53 L 95 Room Air 2 06/09/22 07:30 06/09/22 07:30 06/09/22 07:30 06/09/22 07:30 06/09/22 07:30 06/09/22 07:30 06/05/22 20:05 Oxygen Flow Rate (L/min) 2 Oxygen Delivery Method Room Air Weight: 210 lb 12.191 oz Body Mass Index (BMI) 39.6 Intake & Output: Intake and Output for Last 24 Hours 06/07/22 06/08/22 06/09/22 23:59 23:59 23:59 Intake Total 1170 / 1170 720 / 720 800 / 800 Output Total 1600 / 1900 1700 / 1700 950 / 950 Balance -430 / -730 -980 / -980 -150 / -150 Lab / Micro Data Result Diagrams: 06/09/22 05:25 06/09/22 05:25 Labs: Laboratory Results - last 24 hr 06/09/22 05:25: WBC 6.7, RBC 2.80 L, Hgb 8.5 L, Hct 26.4 L, MCV 94.3, MCH 30.4, MCHC 32.2, RDW Std Deviation 54.7 H, RDW Coeff of Shannon 16.4 H, Plt Count 324, MPV 9.2 06/09/22 05:25: Sodium 135 L, Potassium 4.1, Chloride 103, Carbon Dioxide 26.0, Anion Gap 6, BUN 14, Creatinine 0.80, Estim Creat Clear Calc 48.80, Est GFR (MDRD) Af Amer 90, Est GFR (MDRD) Non-Af 75, BUN/Creatinine Ratio 17.5, Glucose 88, Calcium 8.4 L, Phosphorus 3.4, Magnesium 2.3 Micro: Microbiology 06/02/22 04:03 Stool Stool Occult Blood (MONICA) - Final Occult Blood Positive Physical Exam Const alert, oriented x3 and no apparent distress General Appearance: cooperative, well kempt and well developed Resp normal respiratory effort, normal air movement, no use of accessory muscles and clear to auscultation bilaterally Effort and Inspection: able to speak in complete sentences Cardio regular rate, regular rhythm, no murmurs, no rub and no gallops GI normal to inspection, nondistended, normoactive bowel sounds, soft to palpation, non-tender and non-distended Extremity normal capillary refill and no calf tenderness Skin Skin Narrative: No rashes and no skin breakdown. Neuro CN's II-XII intact bilaterally and moves all extremities Psych Psych Narrative: She is quite anxious about going home. She is perseverating on discharge and wants to delay as long as possible. She does not feel that she will be able to care for her at this time. Her memory is being affected by the anxiety/depression centered around going home to her . Assessment & Plan Assessment/Plan (1) Fall: PLAN: Continue therapy. I feel that she will be able to go home at the end of her stay in rehab unless we encounter an unforeseen complication. (2) Closed left hip fracture: (3) History of left hip hemiarthroplasty: (4) Iron deficiency anemia due to chronic blood loss: PLAN: Will query her about her last endoscopy.......may need to follow up with Dr. Bailey. (5) Anxiety: PLAN: She is interested in counselling but, does not know where to go and the is going to give her a list of local practitioners to peruse. (6) Long-term use of high-risk medication: PLAN: Continue Apixaban. (7) Heme + stool: PLAN: Plan 1. Continue therapy 2. Will follow up with Dr. Radford for possible IV iron infusions since she is still iron deficient despite being on PO iron and Vitamin C as an OP. 3. Possible DC home on 06/13/22 Charges/Coding Visit Charges Inpatient E&M: 74781 Subs Hosp L2
--- NOTE | 2022-06-09 15:51 | CHAPLAIN ---
Type of Pastoral Visit _x__ Initial Visit ___ Follow-up Visit ___ On-call Visit ___ General Patient Visit ___ Spiritual Assessment ___ Family Conference ___ Bereavement ___ Rapid Response ___ Code Blue ___ Other (describe below) Pastoral Care Referral From _x__ Patient ___ Family ___ Nurse ___ Physician ___ Ship Scaler ___ Clinical Account Liaison ___ Other (describe below) Sacrament/Intervention _x__ Active listening ___ Anointing ___ Restorationist ___ Bereavement ___ Communion ___ Tammi exploration ___ _x__ Life review _x__ Prayer ___ Reconciliation ___ Sacrament of Sick _x__ Supportive presence ___ Wedding ___ Other (describe below) Pastoral Comments patient states that she remembers this tape controlled machine stitcher from a previous admission; pt states her plan of returning home unless AL or TCU can be arranged for a short stay until better strength and healing; pt acknowledges that her needs lots of support at home and not sure she can handle that again; pt talks about missing some of her family activities now and wants to get back to those events; pt has not been going to gnosticism but wants to find a new one which is also on my list; pt states that family will be making decisions and she would welcome prayers for this and her recovery/return to home
[2022-06-09] MEDS: 0.9% Saline Lock 10 ML Syringe IV ×2 (18:26→21:23)
[2022-06-09 19:23] VITALS: BP 118/59; PULSE 72; RESP 16; TEMP 36.7; O2SAT 97
[2022-06-09] MEDS: oxyCODONE 5 MG Tablet PO (19:48)
[2022-06-09] MEDS: Montelukast 10 MG Tablet PO (21:27)
[2022-06-09] MEDS: Amitriptyline 25 MG Tablet PO (21:28)
[2022-06-09] MEDS: Niacin SA 500 MG Tablet PO (21:28)
[2022-06-09] MEDS: Divalproex (ER) 500 MG Tablet PO (21:29)
[2022-06-09 22:00] VITALS: PULSE 72; RESP 16
[2022-06-10] MEDS: Acetaminophen 500 MG Tablet 1000 MG PO ×3 (05:13→21:27)
[2022-06-10] MEDS: Nystatin Powder 15gm Bottle 1 APPLIC TOPICAL ×2 (05:15→21:28)
[2022-06-10] MEDS: Menthol/Lanolin/Calamine/Znox 113 GM Tube 1 APPLIC TOPICAL ×2 (05:16→21:27)
[2022-06-10 07:48] VITALS: BP 122/54; PULSE 76; RESP 18; TEMP 36.9; O2SAT 97
[2022-06-10] MEDS: Potassium Chloride Oral Tablet 20 MEQ PO ×2 (08:00→15:50)
[2022-06-10] MEDS: Losartan Potassium 50 MG Tablet PO (08:00)
[2022-06-10] MEDS: Ascorbic Acid 500 MG Tablet 1000 MG PO (08:00)
[2022-06-10] MEDS: Verapamil SR 240 MG Tablet PO (08:00)
[2022-06-10] MEDS: Senna/Docusate Sodium 1 Tablet 2 TABLET PO (08:00)
[2022-06-10] MEDS: Citalopram 20 MG Tablet PO (08:01)
[2022-06-10] MEDS: Pantoprazole Sodium 20 MG Tablet PO (08:01)
[2022-06-10] MEDS: Ferrous Sulfate 325 MG Tablet PO (08:01)
[2022-06-10] MEDS: Calcium (Elemental) 500 MG Tablet PO (08:01)
[2022-06-10] MEDS: Polyethylene Glycol 3350 17 GM PACKET PO (08:02)
[2022-06-10] MEDS: APIXABAN 5 MG TABLET PO ×2 (08:43→21:27)
[2022-06-10] MEDS: 0.9% Saline Lock 10 ML Syringe IV (08:43)
[2022-06-10] MEDS: oxyCODONE 5 MG Tablet PO (12:34)
--- NOTE | 2022-06-10 13:22 | NURSING ---
Ginna for Dr. Riojas's office requesting f/u appt on Wednesday06/15/22. Waiting for return call.
--- NOTE | 2022-06-10 14:56 | NURSING ---
Dr. Riojas's office returned call. pt has f/u appt on Wednesday the at 1020. Will update son.
--- NOTE | 2022-06-10 15:30 | NURSING ---
Contacted [facility]. Per their statement, insurance will not cover the circaid wraps d/t pt not having a wound. The cost will be $92.80, plus tax and shipping. [facility] carries the same item for $80. Will make patient and son aware.
[2022-06-10 19:52] VITALS: BP 110/48; PULSE 74; RESP 16; TEMP 36.9; O2SAT 98
[2022-06-10 20:25] VITALS: O2SAT 97
[2022-06-10] MEDS: Amitriptyline 25 MG Tablet PO (21:27)
[2022-06-10] MEDS: Montelukast 10 MG Tablet PO (21:27)
[2022-06-10] MEDS: Divalproex (ER) 500 MG Tablet PO (21:27)
[2022-06-10] MEDS: Niacin SA 500 MG Tablet PO (21:27)
[2022-06-11] MEDS: Acetaminophen 500 MG Tablet 1000 MG PO ×3 (06:27→20:48)
[2022-06-11] MEDS: Nystatin Powder 15gm Bottle 1 APPLIC TOPICAL ×2 (06:27→20:50)
[2022-06-11] MEDS: Menthol/Lanolin/Calamine/Znox 113 GM Tube 1 APPLIC TOPICAL ×2 (06:29→20:51)
[2022-06-11] MEDS: 0.9% Saline Lock 10 ML Syringe IV ×2 (06:32→20:48)
[2022-06-11 08:05] VITALS: BP 120/51; PULSE 69; RESP 18; TEMP 36.7; O2SAT 98
[2022-06-11] MEDS: Verapamil SR 240 MG Tablet PO (08:57)
[2022-06-11] MEDS: Calcium (Elemental) 500 MG Tablet PO (08:57)
[2022-06-11] MEDS: Potassium Chloride Oral Tablet 20 MEQ PO ×2 (08:57→17:32)
[2022-06-11] MEDS: Ascorbic Acid 500 MG Tablet 1000 MG PO (08:57)
[2022-06-11] MEDS: APIXABAN 5 MG TABLET PO ×2 (08:57→20:50)
[2022-06-11] MEDS: Senna/Docusate Sodium 1 Tablet 2 TABLET PO ×2 (08:57→20:49)
[2022-06-11] MEDS: Pantoprazole Sodium 20 MG Tablet PO (08:57)
[2022-06-11] MEDS: Losartan Potassium 50 MG Tablet PO (08:57)
[2022-06-11] MEDS: Ferrous Sulfate 325 MG Tablet PO (08:57)
[2022-06-11] MEDS: Citalopram 20 MG Tablet PO (08:58)
[2022-06-11] MEDS: Polyethylene Glycol 3350 17 GM PACKET PO (08:58)
[2022-06-11] MEDS: oxyCODONE 5 MG Tablet PO ×3 (09:07→20:48)
--- NOTE | 2022-06-11 12:43 | CASEMGMT ---
Social Work IDT met with patient and son via conference call for Team meeting. Discussed patient's progress in PT/OT/SN. Confirmed pt's DC home 06/13. Son to transport. Pt is scheduled with [facility] PT/OT/SN/BOBBY/SW. SW to follow to continued assistance with community resources and ensure smooth transition home. No DME needs. No other needs noted. Kala Cam, DIE CAST DIE MAKER RISK INTERN
--- NOTE | 2022-06-11 14:56 | PCM.PROGNOTE ---
Subjective Subjective Viola was seen on team rounds today. Her son Eduin participated by phone. Afebrile VSS Maintaining appropriate oxygen saturation on RA Oral intake is good Discussed with nursing - no problems that need addressed Reviewed the PT/OT notes Medication list reviewed. Viola has no complaints. She seems to be okay now about going home knowing that she has resources available to help her. I asked her about her last colonoscopy and she thinks it may have been several years ago. I suggested she discuss endoscopy with Dr. Riojas because of the blood in the stool and the iron deficiency......it is most likely due to chronic anticoagulation but, we must make sure she does not have a polyp/tumor/ulcer. She is feeling more confident about her ability to be successful going home from rehab. Objective Data Objective Data Vital Signs: Vital Signs Temp Pulse Resp BP Pulse Ox O2 Del Method O2 Flow Rate 98.1 F 69 18 120/51 L 98 Room Air 2 06/11/22 08:05 06/11/22 08:05 06/11/22 08:05 06/11/22 08:05 06/11/22 08:05 06/11/22 08:05 06/05/22 20:05 Oxygen Flow Rate (L/min) 2 Oxygen Delivery Method Room Air Weight: 212 lb 8.41 oz Body Mass Index (BMI) 39.6 Intake & Output: Intake and Output for Last 24 Hours 06/09/22 06/10/22 06/11/22 23:59 23:59 23:59 Intake Total 1720 / 1720 1315 / 1315 840 / 840 Output Total 2425 / 2425 1625 / 1625 1370 / 1370 Balance -705 / -705 -310 / -310 -530 / -530 Lab / Micro Data Result Diagrams: 06/09/22 05:25 06/09/22 05:25 Micro: Microbiology 06/02/22 04:03 Stool Stool Occult Blood (MONICA) - Final Occult Blood Positive Physical Exam Const alert, oriented x3 and no apparent distress Constitutional Narrative: not as anxious in appearance. She is engaged in the conversation. No tears. Resp normal respiratory effort and clear to auscultation bilaterally Cardio regular rate, regular rhythm and no gallops GI normal to inspection, nondistended, normoactive bowel sounds, soft to palpation and non-tender Extremity no calf tenderness Extremity Narrative: edema is controlled by the compression wraps and Eduin ordered the Cisaids last night. General Extremity: Negative for cyanosis Skin General Skin Exam: no breakdown Rashes: no rashes Neuro CN's II-XII intact bilaterally, no focal motor deficits and no sensory deficits noted Psych Psych Narrative: Seems more focused today and memory is better than the other day when I spoke to her and she was so anxious. normal affect today. Appearance: appropriate Assessment & Plan Assessment/Plan (1) Fall: (2) Closed left hip fracture: (3) History of left hip hemiarthroplasty: (4) Heme + stool: (5) Iron deficiency anemia due to chronic blood loss: (6) Factor 5 Leiden mutation, heterozygous: (7) Long-term use of high-risk medication: PLAN: Plan 1. Continue therapy. 2. SW is working on a psychotherapy appt for Viola and transportation to her first visit. We shared this with Eduin. 3. Doing OK with the decrease in the Citalopram dose to 20 mg 4. Recommend follow up with Dr. Bailey post [place] 5. Follow up with Dr. Radford for IV iron infusions going forward 6. HHC at [place]. Charges/Coding Visit Charges Inpatient E&M: 76891 Subs Hosp L2
[2022-06-11 19:11] VITALS: BP 122/63; PULSE 80; RESP 18; TEMP 36.2; O2SAT 99
[2022-06-11] MEDS: Montelukast 10 MG Tablet PO (20:49)
[2022-06-11] MEDS: Niacin SA 500 MG Tablet PO (20:49)
[2022-06-11] MEDS: Divalproex (ER) 500 MG Tablet PO (20:50)
[2022-06-11] MEDS: Amitriptyline 25 MG Tablet PO (20:50)
[2022-06-12 05:59] LABS: Hematocrit 27.5 % (37-47); Hemoglobin 8.8 g/dL (12.0-15.0)
[2022-06-12] MEDS: Menthol/Lanolin/Calamine/Znox 113 GM Tube 1 APPLIC TOPICAL (06:34)
[2022-06-12] MEDS: Nystatin Powder 15gm Bottle 1 APPLIC TOPICAL ×2 (06:34→20:05)
[2022-06-12] MEDS: Acetaminophen 500 MG Tablet 1000 MG PO ×3 (06:34→20:07)
[2022-06-12 07:35] VITALS: BP 128/61; PULSE 76; RESP 16; TEMP 36.6; O2SAT 98
[2022-06-12] MEDS: Ascorbic Acid 500 MG Tablet 1000 MG PO (07:51)
[2022-06-12] MEDS: Verapamil SR 240 MG Tablet PO (07:51)
[2022-06-12] MEDS: Calcium (Elemental) 500 MG Tablet PO (07:51)
[2022-06-12] MEDS: Ferrous Sulfate 325 MG Tablet PO (07:51)
[2022-06-12] MEDS: Potassium Chloride Oral Tablet 20 MEQ PO ×2 (07:51→16:36)
[2022-06-12] MEDS: Losartan Potassium 50 MG Tablet PO (07:52)
[2022-06-12] MEDS: Senna/Docusate Sodium 1 Tablet 2 TABLET PO (07:52)
[2022-06-12] MEDS: Pantoprazole Sodium 20 MG Tablet PO (07:52)
[2022-06-12] MEDS: APIXABAN 5 MG TABLET PO ×2 (07:52→20:05)
[2022-06-12] MEDS: Polyethylene Glycol 3350 17 GM PACKET PO (07:52)
[2022-06-12] MEDS: Citalopram 20 MG Tablet PO (07:52)
--- NOTE | 2022-06-12 08:30 | RAD_ITS ---
STUDY: X-RAY - PELVIS AND LEFT HIP REASON FOR EXAM: 2 week postoperative follow-up of left hip arthroplasty. TECHNIQUE: 2 views of the pelvis and hip. COMPARISON: Radiographs 05/30/2022. FINDINGS: There is vascular calcification. Normal bilateral iliac wings, sacroiliac joints and visualized sacrum. Normal bilateral superior and inferior pubic rami. Normal pubic symphysis. Normal bilateral ischial tuberosities. There is a left hip arthroplasty without evidence of complication. RAD/HIP, UNI W/ Pelvis 2-3 Views IMPRESSION: No interval change of uncomplicated left hip arthroplasty. Electronically Signed: Yossi Woodard MD at 10:43 EDT ,
[2022-06-12] MEDS: 0.9% Saline Lock 10 ML Syringe IV (09:34)
--- NOTE | 2022-06-12 12:54 | PCM.DC ---
Discharge Instructions Diet Discharge Diet: Low fat / Low cholesterol, 4000 mg Sodium Diet and - (Low fat and low salt) Activity Discharge Activity: May Not Drive (until released by Dr. Caceres), May Shower and Use Walker (use the walker until you are released by physical therapy to use a cane.) Weight Bearing Status: Full weight bearing Keep extremity elevated above heart level: Left Leg Dressing / Incision Call your doctor if your incision/area has: Sudden Increased Bleeding, Increased Pain/ Swelling, Increased Redness and Foul Smelling Discharge Call your doctor if you observe: Fever of 101 or Higher, Inability to urinate, Inability to have a bowel movement, Shortness of breath, Fainting spells, Chest pain, Increased palpitations (irregular heartbeat), Calf discomfort and Uncontrolled pain Suture Line Care: Avoid Pulling/Pushing, Avoid Pinching/Bending and - (You can leave the incisions open to air but, if your clothing is irritating the incision you can apply a dry dressing ) Cleanse incision/area with: Soap & Water Follow Up Care Please Follow Up With: Darrel Caceres MD When: 06/19/22 at 10:15. Will also follow up with Dr. Riojas on 06/15/2022 at 10:20 AM. Test Results: Test results from this visit will be discussed in further detail at your follow-up appointment, if applicable. Pending Tests Upon Discharge: none Discharge Plan Admission Admit Date/Time: 06/01/22 03:57 Primary Reason for Your Visit: Debility due to L hip fracture Attending Provider: Padmini Moran Primary Care Provider: Desmond Riojas Chi Instructions Patient Instructions: Your Body's Response to Anxiety, Hip Fx Surg Dc Additional Instructions / Restrictions: 1. You have done a great job in therapy and we have all enjoyed having you around. If you ever need us again we would welcome you back with open arms. 2. As we get older kidney and liver function decline and this is normal. What this means is that we do not process/eliminate medications as well as we used to and the dose of some medications needs to be decreased to prevent the build up of the medicine in your body and increasing the risk for adverse side effects......such as falls. Citalopram is one of the drugs that the maximum dose changes as we age. You were taking 40 mg daily when you came to rehab and the maximum recommended dose for a 72 YO person is 20 mg. We tapered the dose of the medication over the past few weeks and at discharge you will be taking 20 mg a day. I think your depression and anxiety would be much better controlled if you would combine therapy with medicine......they work synergistically to get better results. You will be following up at the [facility], [place] for counselling and since each therapist schedules their own appts someone will call you to schedule the appt. IF no one calls you with an appt by 06/19/22 you call again and remind someone that you are waiting for an appt. [facility] number is . They do good work there. 3. The scar from the prior injury to the left calf is very fibrotic. This means that the skin is no longer stretchable.....it is scar tissue that has lost the normal elasticity of skin. If your legs swell the scar will break open and create a wound because the skin no longer stretches. To prevent this from happening you will need to always wear compression stockings, unless you are in bed. It is also important to moisturize your legs every night before bed with Eucerin Intensive repair.....you can buy this over the counter and do not need a prescription. When the skin is dry it will develop scaling and little cracks in the skin will develop. Everyone has bacteria on their ski9n and when your skin is dry and cracked, danitza if you have an old wound, it lets the bacteria in and you can get a bad infection. Eduin ordered some very good compression stockings for you......they are called Circaids and they are easy to put on. They have Velcro straps that you can adjust for fit. If you can not figure how to put the Circaids on come on over to rehab and we will show you how. 4. You were very iron deficient when you came to rehab. Even though you were taking iron and Vitamin C by mouth at home your body was not absorbing the iron. There has to be acid in your stomach for the iron to be absorbed Protonix (pantoprazole) blocks acid secretion in the stomach. You received 500 mg of IV iron while on rehab. your blood count is stable now but, you have blood in your stool and you will likely need iron infusions again in the future when the blood count drops. I am referring you to Dr. Radford to manage the iron supplements. Many people on chronic anticoagulation have blood in their stool. Many times we can not find a source for the bleeding but, we should at least look for a source. I recommend you talk to Dr. Riojas about a referral to gastroenterology for a colonoscopy and EGD (this looks at the stomach and the esophagus). Make sure we don't miss a polyp or and ulcer or worse. 5. You have osteopenia on your last bone density study in 2020......This means you have bone loss. It was worse than on the previous study and it was worst in the left hip which you have no fractured. There are medications to build bone back up and these include bisphosphonates (which you can not take because of reflux/heartburn), Evista (which you should not take because there is an increased risk of blood clots with this drug) and Miacalcin. Miacalcin in a nasal spray that you would use 1 squirt of daily. You have no contraindications to this medication and You should discuss this with Dr. Riojas and ask if you are a candidate for treatment. 6. I discontinued the antihistamine you were taking because this can cause drowsiness and increase falls in the elderly and you are doing fine without it. Elavil (also known as amitriptyline) and Depakote can also cause drowsiness, gait instability and increased falls. You are taking these medications for migraine headaches and I have left you on them. You are on Emgality for migraines now and you may not need 3 medications to control migraines so you may want to ask you neurologist if you still need Elavil and Depakote. You should avoid any sedating medications as much as possible because you have bone loss and falls. 7. You do not like to drink water and your fluid intake is not adequate. You were taking a medication, valsartan/hydrochlorothiazide, for BP and hydrochlorothiazide is a diuretic. The valsartan/hydrochlorothiazide was discontinued and you were placed on Cozaar (also called losartan) and it has no diuretic. Your blood pressure is better controlled and the dehydration has improved. Dehydration can increase risk for falls because you get lightheaded when you stand because your blood goes to your feet and not your brain when your are standing. 8. You LDL (bad cholesterol) is not bad. The HDL (good cholesterol) is low for a woman. HDL provides protection for your heart and in a woman it should be 45 or greater. Your HDL is low at 34. Aerobic exercise such as walking 30 minutes a day will help to improve HDL and there is a medication called niacin that also increases HDL. You have been started on Niaspan 500 mg at bedtime. Sometimes this medication causes flushing but you have not had any problems with this. I would recheck the HDL in about 6 to 8 weeks to see if the Niaspan is helped increase the HDL from 34 to 45 or above. 9. I have enjoyed meeting you Viola. You have done very well and worked hard. If you have any questions after you leave rehab please do not hesitate to call me at: OFFICE: [phone] CELL: [phone] Take care AND enjoy the ZOO. Discharge Orders/Prescriptions Prescriptions: New citalopram 20 mg Tablet 20 mg PO DAILY Qty: 30 0RF losartan 50 mg Tablet 50 mg PO DAILY Qty: 30 0RF sennosides-docusate sodium [Stool Softener-Stimulant Laxat] 8.6-50 mg Tablet 2 tab PO BID Qty: 120 0RF niacin 500 mg Tablet Extended Release 24 Hr 500 mg PO QHS Qty: 30 0RF potassium chloride 20 mEq tablet extended release 20 meq PO DAILY Qty: 30 0RF Continued amitriptyline 25 mg tablet 25 mg PO QHS Emgality Syringe 120 mg/mL syringe 120 mg SC QMONTH multivitamin Tablet 1 tab PO DAILY calcium carbonate 600 mg calcium (1,500 mg) tablet 600 mg PO DAILY ergocalciferol (vitamin D2) 1,250 mcg (50,000 unit) capsule 1,250 mcg PO QWEEK omeprazole 20 MG capsule 20 mg PO DAILY montelukast 10 MG tablet 10 mg PO DAILY divalproex [Depakote ER] 500 mg Tablet Extended Release 24 Hr 500 mg PO QHS Vitamin C 1,000 mg Tablet Extended Release 1,000 mg PO DAILY Rx Instructions: Take with Iron supplement polyethylene glycol 3350 17 gram powder in packet 17 g PO DAILY verapamil 240 MG capsule,ext rel. pellets 24 hr 240 mg PO DAILY Qty: 30 0RF apixaban 5 mg tablet 5 mg PO BID Qty: 60 0RF Rx Instructions: 1 tab every 12 H Changed acetaminophen 500 mg tablet 1,000 mg PO Q8H PRN PRN (Reason: pain) Qty: 1 0RF Rx Instructions: 2 tabs every 8 hours as needed for pain. ferrous sulfate [FeroSul] 325 mg (65 mg iron) tablet 325 mg PO DAILY Qty: 1 0RF Rx Instructions: take this with Vitamin C and a meal oxycodone 5 mg tablet 5 mg PO Q4H PRN PRN (Reason: Pain) 7 Days Qty: 21 0RF Rx Instructions: 5 mg every 4-6 hours as needed for pain not relieved with tylenol Discontinued valsartan-hydrochlorothiazide 320-12.5 mg tablet 1 tab PO DAILY potassium chloride 20 MEQ tablet 20 meq PO BID levocetirizine 5 MG tablet 5 mg PO DAILY citalopram 40 mg tablet 40 mg PO DAILY Referrals / Follow Up: [facility] [Other] (call office to make an appointment) Luis Felipe Radford DO [Med Staff - Active Staff] - Darrel Caceres MD [Med Staff - Active Staff] - 06/19/22 10:15 am Desmond Riojas Chi, MD [Primary Care Provider] - (Dr. Riojas appt 06/15/22 @ 1020) Disposition Disposition (needs filled in before D/C Order can be placed): Home Health Service
--- NOTE | 2022-06-12 14:13 | DS.PCM_ITS ---
Providers Date of Admission: 06/01/22 Date of Discharge: 06/13/22 Primary Care Physician: Dr. Desmond Riojas MD Reason For Visit: LEFT HIP FRACTURE Diagnosis Discharge Diagnosis (1) Fall: Status: Acute Code(s): W19.XXXA - Unspecified fall, initial encounter Plan: Mechanical.....no LOC. (2) Closed left hip fracture: Status: Acute Code(s): S72.002A - Fracture of unspecified part of neck of left femur, initial encounter for closed fracture (3) History of left hip hemiarthroplasty: Status: Acute Code(s): Z96.642 - Presence of left artificial hip joint Plan: Dr. Caceres on 05/30/22 (4) Heme + stool: Status: Acute Code(s): R19.5 - Other fecal abnormalities Plan: No endoscopy for several years per pt. (5) Iron deficiency anemia due to chronic blood loss: Status: Chronic Code(s): D50.0 - Iron deficiency anemia secondary to blood loss (chronic) Plan: Received IV iron sucrose in rehab, 500 mg. HGB is stable at 8.8. she became iron deficient despite taking Iron + Vitamin C on a regular basis as an OP. She is on a PPI. More likely than not she is unable to absorb oral iron. She has seen Dr. Radford in the past for Factor V Leyden deficiency and would like to follow up with Dr. Radford if she needs IV iron supplementation. (6) Factor 5 Leiden mutation, heterozygous: Status: Acute Code(s): D68.51 - Activated protein C resistance (7) Long-term use of high-risk medication: Status: Chronic Code(s): Z79.899 - Other medical terminologist (current) drug therapy Plan: Apixaban (8) Osteopenia: Status: Acute Code(s): M85.80 - Other specified disorders of bone density and structure, unspecified site Plan: On Calcium and Vitamin D. Last BMD showed decreasing bone density. (9) Migraine: Status: Chronic Code(s): G43.909 - Migraine, unspecified, not intractable, without status migrainosus Plan: Treated with Emgality, Depakote and Elavil. (10) Depression: Status: Acute Code(s): F32.9 - Major depressive disorder, single episode, unspecified Plan: Citalopram decreased to 20 mg daily which is the max recommended dose for this age group. Was given information for following up with psychotherapy and an appt was made for her by the SW. (11) Chronic kidney disease: Status: Chronic Code(s): N18.9 - Chronic kidney disease, unspecified Plan: Chronically dehydrated with elevated creat. Does not drink much fluid despite being encouraged to increase her fluid intake. Lasix was discontinued. He weight remained stable and the LE edema is controlled by compression. Circaid compression stockings were ordered and she should have them soon after going home. Last EF on record was normal. Creatinine at discharge is 0.8 with a GFR of 75 and a creatinine clearance of 48.8. (12) Acute postoperative anemia due to expected blood loss: Status: Acute Code(s): D62 - Acute posthemorrhagic anemia Plan 1. DC home with [facility]. 2. Appt made for psychotherapy. 3. Son and dtr are aware of her hesitance to go home due to situation with her at home and will monitor closely. Medications at Discharge Home Medications montelukast 10 mg tablet 10 mg PO DAILY Allergies 09/29/13 omeprazole 20 mg capsule,delayed release 20 mg PO DAILY GERD 09/29/13 amitriptyline 25 mg tablet 25 mg PO QHS Mood 10/25/19 galcanezumab-gnlm 120 mg/mL subcutaneous syringe (Emgality) 120 mg subcut QMONTH Migraines 10/25/19 multivitamin 1 tab PO DAILY Supplement 04/26/20 divalproex 500 mg tablet,extended release 24 hr (Depakote ER) 500 mg PO QHS Check with primary doctor 01/31/21 calcium carbonate 600 mg calcium (1,500 mg) tablet 600 mg PO DAILY supplement 11/24/21 ergocalciferol (vitamin D2) 1,250 mcg (50,000 unit) capsule 1,250 mcg PO QWEEK supplement 11/24/21 ascorbic acid (vitamin C) 1,000 mg tablet,extended release (Vitamin C ER) 1,000 mg PO DAILY Supplement 06/01/22 polyethylene glycol 3350 17 gram oral powder packet 17 g PO DAILY bowel mobility 06/01/22 acetaminophen 500 mg tablet 1,000 mg PO Q8H PRN PRN pain #1 TAB 09/23/22 apixaban 5 mg tablet 5 mg PO BID Blood thinner #60 tabs 06/12/22 citalopram 20 mg tablet 20 mg PO DAILY #30 tabs 06/12/22 ferrous sulfate 325 mg (65 mg iron) tablet (FeroSul) 325 mg PO DAILY supplement #1 TAB 06/12/22 losartan 50 mg tablet 50 mg PO DAILY #30 tabs 06/12/22 niacin 500 mg tablet,extended release 24 hr 500 mg PO QHS #30 tabs 06/12/22 oxycodone 5 mg tablet 5 mg PO Q4H PRN PRN Pain 7 days #21 tabs 06/12/22 potassium chloride 20 mEq tablet,extended release 20 meq PO DAILY #30 tabs 06/12/22 sennosides 8.6 mg-docusate sodium 50 mg tablet (Stool Softener-Stimulant Laxative) 2 tab PO BID #120 tabs 06/12/22 verapamil 240 mg 24 hr capsule,extended release 240 mg PO DAILY BP #30 caps 06/12/22 Hospital Course Operations - (Left hip plasty on 05/30/[address] Tunde Caceres.) Procedures None Summary of Care Provided Minutes Spent on Discharge: 35 Hospital Course: VIOLA BRADFORD, is a 72 YO F with a PMH of allergic rhinitis, history of VTE, factor V Leiden deficiency, hypertension, paroxysmal atrial fibrillation, chronic renal failure stage III, obesity, obstructive sleep apnea on CPAP, anxiety/depression, GERD, presbycusis, migraine headaches, hyperlipidemia (untreated due to intolerance of statins), hypertension, OA and chronic anemia who presented to the ED at [facility] on 05/28/2022 after 2 separate falls while outside in the yard.? The first fall she was in the garden and the second she landed on the left hip on the cement and had immediate intractable pain.? X-ray in the emergency room showed a left femoral neck fracture with moderate varus deformity.? She was admitted to the hospitalist service and Dr. Tunde Caceres was consulted from orthopedics. Melissa was held in preparation for surgery. ? Based on the patient's health and activity level he recommended a partial hip replacement and Viola agreed.? She was taken to surgery on 05/30/2022 and had left direct anterior hip hemiarthroplasty.? Eliquis was restarted on the first post-operative day.? Viola was seen and evaluated by PT/OT and they felt she would be appropriate for acute rehab.? She was transferred to rehab on 06/01/22 for 3 hours of therapy daily to restore function at or near her baseline prior to the fall. HGB dropped to 8.5 post operatively and iron studies and a heme stool were ordered. She was heme positive. Serum iron was low at 13 and the iron saturation was 5.5%. She was administered 500 mg of IV iron sucrose. Vitamin C supplementation along with iron was continued. She is chronically on a PPI for GERD and I suspect she is not absorbing then oral iron even though she is taking Vitamin C with the iron. A lipid panel was also checked since she carries a hx of HLD but, is not on medication due to an adverse reaction to statins. Total cholesterol was 149 with an LDL of 97 and an HDL of 34. Triglycerides were 90. Viola has no history of coronary artery disease or cerebrovascular disease. We elected to try Niaspan to improve her HDL, hopefully to a level above 45. She was placed on Niaspan SR 500 mg at and she had no flushing. She should have a repeat HDL in 6 weeks or so. Viola's creat at admission to the hospital was 1.02 with a GFR of 59 which is consistent with stage IIIa CRF. Viola consistently has poor fluid intake and is on Lasix daily. She c/o lightheadedness and the BUN/CREAT ratio was as high as 30.4. I reviewed her last ECHO report and her EF was normal and she has no pulmonary HTN. Lasix was discontinued and she was monitored closely for any peripheral edema increase, SOB and orthopnea. Her wt remained stable and she had no increase in edema. The edema is controlled well with compression but, Viola can not wrap her legs with ACES or get OSVALDO hose on. Circaid compression stockings were ordered for her and they should be delivered to her house in the near future. Viola did well in therapy and prior to DC she was ambulating up to 326 feet with a front wheel walker on level ground. She was independent with transfers from various surfaces. She was able to ascend/descend a curb step at supervision level. She required only minimal assistance with bathing and was supervision for tub/shower transfer. She was independent with all other ADLs. Viola was discharged home on 06/13/2022 and will have close to [facility] home health care for PT/OT/SN/BOBBY/SW. She will follow up at the [facility] for counselling to learn how to better deal with her and his needs/demands on her. Her son and dtr are aware of her difficulties at home with their father and will be monitoring the situation and assisting Viola going forward. She will follow up with Dr. Riojas for primary care and with Dr. Caceres. Weight / BMI Weight Weight: 212 lb 8.41 oz Body Mass Index (BMI) 39.6 ABG / Lab / Microbiology Data Result Diagrams: 06/12/22 05:47 06/09/22 05:25 Laboratory: Laboratory Results - last 24 hr 06/12/22 05:47: Hgb 8.8 L, Hct 27.5 L Microbiology: Microbiology 06/02/22 04:03 Stool Stool Occult Blood (MONICA) - Final Occult Blood Positive Radiography Diagnostic Testing: Radiology Impression Hip/Pelvis X-Ray 06/12/22 08:30 IMPRESSION: No interval change of uncomplicated left hip arthroplasty. Electronically Signed: Yossi Woodard MD at 10:43 EDT , D/C Instructions Discharge Diet: Low fat / Low cholesterol, 4000 mg Sodium Diet and - (Low fat and low salt) Weight Bearing Status: Full weight bearing Keep extremity elevated above heart level: Left Leg Call your doctor if your incision/area has: Sudden Increased Bleeding, Increased Pain/ Swelling, Increased Redness and Foul Smelling Discharge Call your doctor if you observe: Fever of 101 or Higher, Inability to urinate, Inability to have a bowel movement, Shortness of breath, Fainting spells, Chest pain, Increased palpitations (irregular heartbeat), Calf discomfort and Uncontrolled pain Suture Line Care: Avoid Pulling/Pushing, Avoid Pinching/Bending and - (You can leave the incisions open to air but, if your clothing is irritating the incision you can apply a dry dressing ) Cleanse incision/area with: Soap & Water Pending Tests Upon Discharge: none Please Follow Up With: Darrel Caceres MD When: 06/19/22 at 10:15. Will also follow up with Dr. Riojas on 06/15/2022 at 10:20 AM. Meaningful Use Info Meaningful Use Diagnoses (Choose all that apply): None applicable Discharge Plan Admission Admit Date/Time: 06/01/22 03:57 Primary Reason for Your Visit: Debility due to L hip fracture Attending Provider: Padmini Moran Primary Care Provider: Desmond Riojas Chi Instructions Patient Instructions: Your Body's Response to Anxiety, Hip Fx Surg Dc Additional Instructions / Restrictions: 1. You have done a great job in therapy and we have all enjoyed having you around. If you ever need us again we would welcome you back with open arms. 2. As we get older kidney and liver function decline and this is normal. What this means is that we do not process/eliminate medications as well as we used to and the dose of some medications needs to be decreased to prevent the build up of the medicine in your body and increasing the risk for adverse side effects......such as falls. Citalopram is one of the drugs that the maximum dose changes as we age. You were taking 40 mg daily when you came to rehab and the maximum recommended dose for a 72 YO person is 20 mg. We tapered the dose of the medication over the past few weeks and at discharge you will be taking 20 mg a day. I think your depression and anxiety would be much better controlled if you would combine therapy with medicine......they work synergistically to get better results. You will be following up at the [facility] for counselling and since each therapist schedules their own appts someone will call you to schedule the appt. IF no one calls you with an appt by 06/19/22 you call again and remind someone that you are waiting for an appt. [facility] number is . They do good work there. 3. The scar from the prior injury to the left calf is very fibrotic. This means that the skin is no longer stretchable.....it is scar tissue that has lost the normal elasticity of skin. If your legs swell the scar will break open and create a wound because the skin no longer stretches. To prevent this from happening you will need to always wear compression stockings, unless you are in bed. It is also important to moisturize your legs every night before bed with Eucerin Intensive repair.....you can buy this over the counter and do not need a prescription. When the skin is dry it will develop scaling and little cracks in the skin will develop. Everyone has bacteria on their ski9n and when your skin is dry and cracked, danitza if you have an old wound, it lets the bacteria in and you can get a bad infection. Eduin ordered some very good compression stockings for you......they are called Circaids and they are easy to put on. They have Velcro straps that you can adjust for fit. If you can not figure how to put the Circaids on come on over to rehab and we will show you how. 4. You were very iron deficient when you came to rehab. Even though you were taking iron and Vitamin C by mouth at home your body was not absorbing the iron. There has to be acid in your stomach for the iron to be absorbed Protonix (pantoprazole) blocks acid secretion in the stomach. You received 500 mg of IV iron while on rehab. your blood count is stable now but, you have blood in your stool and you will likely need iron infusions again in the future when the blood count drops. I am referring you to Dr. Radford to manage the iron supplements. Many people on chronic anticoagulation have blood in their stool. Many times we can not find a source for the bleeding but, we should at least look for a source. I recommend you talk to Dr. Riojas about a referral to gastroenterology for a colonoscopy and EGD (this looks at the stomach and the esophagus). Make sure we don't miss a polyp or and ulcer or worse. 5. You have osteopenia on your last bone density study in 2020......This means you have bone loss. It was worse than on the previous study and it was worst in the left hip which you have no fractured. There are medications to build bone back up and these include bisphosphonates (which you can not take because of reflux/heartburn), Evista (which you should not take because there is an increased risk of blood clots with this drug) and Miacalcin. Miacalcin in a nasal spray that you would use 1 squirt of daily. You have no contraindications to this medication and You should discuss this with Dr. Riojas and ask if you are a candidate for treatment. 6. I discontinued the antihistamine you were taking because this can cause drowsiness and increase falls in the elderly and you are doing fine without it. Elavil (also known as amitriptyline) and Depakote can also cause drowsiness, gait instability and increased falls. You are taking these medications for migraine headaches and I have left you on them. You are on Emgality for migraines now and you may not need 3 medications to control migraines so you may want to ask you neurologist if you still need Elavil and Depakote. You should avoid any sedating medications as much as possible because you have bone loss and falls. 7. You do not like to drink water and your fluid intake is not adequate. You were taking a medication, valsartan/hydrochlorothiazide, for BP and hydrochlorothiazide is a diuretic. The valsartan/hydrochlorothiazide was discontinued and you were placed on Cozaar (also called losartan) and it has no diuretic. Your blood pressure is better controlled and the dehydration has improved. Dehydration can increase risk for falls because you get lightheaded when you stand because your blood goes to your feet and not your brain when your are standing. 8. You LDL (bad cholesterol) is not bad. The HDL (good cholesterol) is low for a woman. HDL provides protection for your heart and in a woman it should be 45 or greater. Your HDL is low at 34. Aerobic exercise such as walking 30 minutes a day will help to improve HDL and there is a medication called niacin that also increases HDL. You have been started on Niaspan 500 mg at bedtime. Sometimes this medication causes flushing but you have not had any problems with this. I would recheck the HDL in about 6 to 8 weeks to see if the Niaspan is helped increase the HDL from 34 to 45 or above. 9. I have enjoyed meeting you Viola. You have done very well and worked hard. If you have any questions after you leave rehab please do not hesitate to call me at: OFFICE: [phone] CELL: [phone] Take care AND enjoy the ZOO. Discharge Orders/Prescriptions Prescriptions: New citalopram 20 mg Tablet 20 mg PO DAILY Qty: 30 0RF losartan 50 mg Tablet 50 mg PO DAILY Qty: 30 0RF sennosides-docusate sodium [Stool Softener-Stimulant Laxat] 8.6-50 mg Tablet 2 tab PO BID Qty: 120 0RF niacin 500 mg Tablet Extended Release 24 Hr 500 mg PO QHS Qty: 30 0RF potassium chloride 20 mEq tablet extended release 20 meq PO DAILY Qty: 30 0RF Continued amitriptyline 25 mg tablet 25 mg PO QHS Emgality Syringe 120 mg/mL syringe 120 mg SC QMONTH multivitamin Tablet 1 tab PO DAILY calcium carbonate 600 mg calcium (1,500 mg) tablet 600 mg PO DAILY ergocalciferol (vitamin D2) 1,250 mcg (50,000 unit) capsule 1,250 mcg PO QWEEK omeprazole 20 MG capsule 20 mg PO DAILY montelukast 10 MG tablet 10 mg PO DAILY divalproex [Depakote ER] 500 mg Tablet Extended Release 24 Hr 500 mg PO QHS Vitamin C 1,000 mg Tablet Extended Release 1,000 mg PO DAILY Rx Instructions: Take with Iron supplement polyethylene glycol 3350 17 gram powder in packet 17 g PO DAILY verapamil 240 MG capsule,ext rel. pellets 24 hr 240 mg PO DAILY Qty: 30 0RF apixaban 5 mg tablet 5 mg PO BID Qty: 60 0RF Rx Instructions: 1 tab every 12 H Changed acetaminophen 500 mg tablet 1,000 mg PO Q8H PRN PRN (Reason: pain) Qty: 1 0RF Rx Instructions: 2 tabs every 8 hours as needed for pain. ferrous sulfate [FeroSul] 325 mg (65 mg iron) tablet 325 mg PO DAILY Qty: 1 0RF Rx Instructions: take this with Vitamin C and a meal oxycodone 5 mg tablet 5 mg PO Q4H PRN PRN (Reason: Pain) 7 Days Qty: 21 0RF Rx Instructions: 5 mg every 4-6 hours as needed for pain not relieved with tylenol Discontinued valsartan-hydrochlorothiazide 320-12.5 mg tablet 1 tab PO DAILY potassium chloride 20 MEQ tablet 20 meq PO BID levocetirizine 5 MG tablet 5 mg PO DAILY citalopram 40 mg tablet 40 mg PO DAILY Referrals / Follow Up: [facility] [Other] (call office to make an appointment) Luis Felipe Radford DO [Med Staff - Active Staff] - Darrel Caceres MD [Med Staff - Active Staff] - 06/19/22 10:15 am Desmond Riojas Chi, MD [Primary Care Provider] - (Dr. Riojas appt 06/15/22 @ 1020) Disposition Disposition (needs filled in before D/C Order can be placed): Home Health Service Charges/Coding Visit Charges Inpatient E&M: 83049 Disch Hosp
[2022-06-12 19:30] VITALS: PULSE 72; RESP 16
[2022-06-12 19:34] VITALS: BP 105/52; PULSE 72; RESP 16; TEMP 35.7; O2SAT 97
--- NOTE | 2022-06-12 19:36 | NURSING ---
Pt ambulating unit MOD-I with wheeled walker.
[2022-06-12] MEDS: Amitriptyline 25 MG Tablet PO (20:04)
[2022-06-12] MEDS: Divalproex (ER) 500 MG Tablet PO (20:04)
[2022-06-12] MEDS: Montelukast 10 MG Tablet PO (20:06)
[2022-06-12] MEDS: Niacin SA 500 MG Tablet PO (20:06)
--- NOTE | 2022-06-13 01:09 | NURSING ---
1999 16 sutures were removed from pt's lt hip incision and was tolerated well. old drainage remains on incision with some edema.
--- NOTE | 2022-06-13 02:44 | NURSING ---
REVIEWED AND AGREE WITH Kwame JORDAN LPN, DOCUMENTATION AND ASSESSMENT CHARTING.
[2022-06-13] MEDS: Acetaminophen 500 MG Tablet 1000 MG PO (05:12)
[2022-06-13] MEDS: Nystatin Powder 15gm Bottle 1 APPLIC TOPICAL (05:14)
[2022-06-13] MEDS: Menthol/Lanolin/Calamine/Znox 113 GM Tube 1 APPLIC TOPICAL (05:15)
[2022-06-13] MEDS: Calcium (Elemental) 500 MG Tablet PO (07:29)
[2022-06-13] MEDS: Ferrous Sulfate 325 MG Tablet PO (07:29)
[2022-06-13] MEDS: Ascorbic Acid 500 MG Tablet 1000 MG PO (07:29)
[2022-06-13] MEDS: Potassium Chloride Oral Tablet 20 MEQ PO (07:29)
[2022-06-13 07:43] VITALS: BP 110/67; PULSE 83; RESP 16; TEMP 36.4; O2SAT 96
[2022-06-13] MEDS: Pantoprazole Sodium 20 MG Tablet PO (08:06)
[2022-06-13] MEDS: Citalopram 20 MG Tablet PO (08:06)
[2022-06-13] MEDS: Losartan Potassium 50 MG Tablet PO (08:06)
[2022-06-13] MEDS: Verapamil SR 240 MG Tablet PO (08:06)
[2022-06-13] MEDS: APIXABAN 5 MG TABLET PO (08:06)
[2022-06-13 09:17] VITALS: BP 139/68; PULSE 84; RESP 18; TEMP 36.7; O2SAT 100
== END 2022-06-13 09:30 | disposition home health service (06) | DRG 522 ==
PROVIDERS: Admitting Provider Internal Medicine; PCP Family Medicine Geriatric Medicine; Visit Provider Internal Medicine
DX: S72.002A Fracture of unspecified part of neck of left femur, initial encounter for closed fracture (principal); D62 Acute posthemorrhagic anemia; D68.51 Activated protein C resistance; F03.90 Unspecified dementia, unspecified severity, without behavioral disturbance, psychotic disturbance, mood disturbance, and anxiety; I48.0 Paroxysmal atrial fibrillation; G43.909 Migraine, unspecified, not intractable, without status migrainosus; N18.30 Chronic kidney disease, stage 3 unspecified; E66.01 Morbid (severe) obesity due to excess calories; K21.9 Gastro-esophageal reflux disease without esophagitis; I12.9 Hypertensive chronic kidney disease with stage 1 through stage 4 chronic kidney disease, or unspecified chronic kidney disease; I25.10 Atherosclerotic heart disease of native coronary artery without angina pectoris; E78.00 Pure hypercholesterolemia, unspecified; F41.9 Anxiety disorder, unspecified; W19.XXXA Unspecified fall, initial encounter; G47.33 Obstructive sleep apnea (adult) (pediatric); J30.9 Allergic rhinitis, unspecified; Z79.899 Other long term (current) drug therapy; Z79.01 Long term (current) use of anticoagulants; F32.9 Major depressive disorder, single episode, unspecified; Z68.39 Body mass index [BMI] 39.0-39.9, adult; Y93.H2 Activity, gardening and landscaping; Z86.711 Personal history of pulmonary embolism; Z66 Do not resuscitate
CPT/HCPCS: 36415; 72040; 73501; 73502; 76000; 80048; 80053; 80061; 82274; 82306; 82728; 83540; 83550; 83735; 83880; 84100; 84443; 85014; 85018; 85025; 85027; 85610; 85730; 86850; 86900; 86901; 88305; 88311; 93005; 97110; 97116; 97124; 97162; 97166; 97530; 97535; 97802; 99251; 99252; 99285; C1776; J7030; J7040; J7050; J7120; A4216; G0463; J2405; J2916

== ENCOUNTER → 2022-06-15 | Outpatient (CLI) | payer MEDICARE, OTHER, SELFPAY ==
[2022-06-15 12:22] LABS: Absolute Lymphocyte Count 0.71 X10^3/uL (0.83-4.51); Absolute Neutrophil Count 3.5 X10^3/uL (2.0-7.7); Basophil# 0.02 X10^3/uL; Basophil% 0.4 % (0-1); Eosinophil# 0.22 X10^3/uL; Eosinophils% 4.4 % (0-5); Hematocrit 32.5 % (37-47); Hemoglobin 10.2 g/dL (12.0-15.0); Lymphocyte # 0.71 X10^3/ul (0.83-4.51); Lymphocyte % 14.1 % (19-41); Mean Corp Hgb Conc 31.4 g/dL (32-36); Mean Corpuscular Hgb 29.8 pg (27.0-32.0); Mean Platelet Vol. 9.2 fl (6.2-12.0); Monocyte# 0.53 X10^3/uL; Monocyte% 10.6 % (0-10); NRBC Flagged by Analyzer 0 % (0-5); Neutrophil # 3.52 X10^3/uL (2.7-7.7); Neutrophil % 70.1 % (47-70); Platelet Count 373 K/mm3 (150-450); RBC Distribution Width CV 17.9 % (11.6-14.6); RBC Distribution Width SD 61.8 fl (35.1-43.9); Red Blood Count 3.42 M/mm3 (4.2-5.4)
== END | disposition home or self-care (01) ==
LOC: POLAB3 11:18
PROVIDERS: PCP Family Medicine Geriatric Medicine; Visit Provider Family Medicine Geriatric Medicine
DX: D64.9 Anemia, unspecified (principal)
CPT/HCPCS: 36415; 85025

== ENCOUNTER → 2022-07-24 | Outpatient (CLI) | payer MEDICARE, OTHER, SELFPAY ==
[2022-07-24 16:15] LABS: CRP < 2.90 mg/L (0.0-3.0)
[2022-07-24 16:18] LABS: Erythrocyte Sedimentation Rate 14 mm/hr (0-30)
[2022-07-24 16:22] LABS: Absolute Lymphocyte Count 1.32 X10^3/uL (0.83-4.51); Absolute Neutrophil Count 2.6 X10^3/uL (2.0-7.7); Basophil# 0.03 X10^3/uL; Basophil% 0.6 % (0-1); Eosinophil# 0.33 X10^3/uL; Eosinophils% 6.8 % (0-5); Hematocrit 36.6 % (37-47); Hemoglobin 11.6 g/dL (12.0-15.0); Lymphocyte # 1.32 X10^3/ul (0.83-4.51); Lymphocyte % 27.3 % (19-41); Mean Corp Hgb Conc 31.7 g/dL (32-36); Mean Corpuscular Hgb 29.9 pg (27.0-32.0); Mean Corpuscular Volume 94.3 fL (81-99); Mean Platelet Vol. 10.8 fl (6.2-12.0); Monocyte# 0.52 X10^3/uL; Monocyte% 10.7 % (0-10); NRBC Flagged by Analyzer 0 % (0-5); Neutrophil # 2.63 X10^3/uL (2.7-7.7); Neutrophil % 54.4 % (47-70); Platelet Count 196 K/mm3 (150-450); RBC Distribution Width CV 15.2 % (11.6-14.6); RBC Distribution Width SD 53.1 fl (35.1-43.9); Red Blood Count 3.88 M/mm3 (4.2-5.4); White Blood Count 4.8 K/mm3 (4.4-11.0)
== END | disposition home or self-care (01) ==
LOC: LAB 14:51
PROVIDERS: PCP Family Medicine Geriatric Medicine; Visit Provider Physician Assistant Surgical
DX: M25.562 Pain in left knee (principal); Z96.652 Presence of left artificial knee joint
CPT/HCPCS: 36415; 85025; 85652; 86140

== ENCOUNTER 2022-09-08 10:00 | Outpatient (RCR) | payer MEDICARE, OTHER, SELFPAY ==
--- NOTE | 2022-07-22 10:41 | HP.PTEVAL_ITS ---
Patient's Visit Information DIONTE BRADFORD is a 72 year old F referred to Physical Therapy by Dr. Darrel Caceres MD with a diagnosis of Left THR. Date of Evaluation: 07/22/22 Physical Therapist: Katherine Thomas DPT - Visit Plan Frequency: 2x /Week Duration: 4 Weeks Plan: Left THR- 05/30- has a lot of left knee pain- Focus on LE and core strength/stabilization, balance and functional mobility. HEP Reviewed from - Subjective Patient reports falling multiple times that day but she ended up breaking her hip 06/27- then had a anterior hip hemiarthroplasty by Dr. Caceers on 06/29. She went to 4th floor rehab for 2 weeks and then headed home. Lives with but he is unable to help- family nearby that helps. She had home health that came in and ended last week for PT but nursing is still coming in. She has no stairs at home- she can use a ramp on enter. She used a cane prior to her fall- fully I prior. She is now using the walker all the time- she is back to driving and drove herself here. She had some pain in the hip this morning 01/27 so she took Tylenol- the pain then went to a -10/30. Most complaints are about the left knee- plans to see MD on Wednesday for it- its been hurting since surgery. She has had TKR bilaterally but they have been years ago. She describe the pain as dull and achy. Things that aggravate her hip pain is sitting in any kind of chair and getting in/out of bed. Eases: Tylenol. She does not have back pain. No loss or change in bowel or bladder. No N/T in the left leg. She is normally pretty active- this has slowed her down. Sleep: gets her up at night- hard to get comfortable- goes from the bed to the chair all night. PMHx/Meds: took her off Niacin - only change since surgery- taking pain medication PRN. - Objective Posture: FH, RS- can correct but does not maintain. Gait: antalgic- decreased stance on the left LE- FWW- toes turned in on the left LE. HR/TR: able with UE A. SLS: weight shift but unable to SLS and reports pain. ROM: WFL in all pl anes- reports pain with end range flexion. Strength: Core: fair minus, SLR: unable requires mod A from PT, Hip: flexion: 5.0. Extn: 3.0, Knee: 4-/5 with pain, Ankle: 5/5 Flex: HS: severe, Gastroc: severe - Balance/Special Test Scores Lower Extremity Functional Score: 24 TUG Test Time Seconds: 31 30 Second Chair Rise Test Seconds: 8 WOMAC Total Score: 72 WOMAC Percentatge: 25.0000 - Goals Goal 1:: Patient will be I with HEP and progression Goal Time Frame: 4-6 Weeks Goal 2:: Patient will ambulate >300 feet with LRD Goal Time Frame: 4-6 Weeks Goal 3:: Patient will asc/desc 8 stairs recip with 1 HR Goal Time Frame: 4-6 Weeks Goal 4:: Patient will report 80% improvement Goal Time Frame: 4-6 Weeks - Rehabilitation Potential Physical Therapy Diagnosis: Patient presents with hypomobility- she has decre ased LE and core strength/stabilization, flex and muscular endurance leading to poor proprioception and functional mobility Rehabilitation Potential: Good - Anticipated Interventions Patient/Client Instruction: Educate patient on: Benefits of Fitness Program Therapeutic Exercise to Include: Strength training, Endurance training, Balance training, Coordination, Agility training, Body mechanics, Postural training, Flexibilty training, Gait and locomotor training, Neuromotor development, Dynamic Lumbar Stabilization, Scapular Strength/Stabilization For the Purpose of:: To improve muscle performance and motor function Cryotherapy (ice pack, ice massage): Yes Thermo therapy (hot pack): Yes Ultrasound (thermal/non thermal): No Thank you for the opportunity to evaluate your patient. For Medicare and Medicare HMO plans, please review the plan of care and approve it. It will need to be FAXED BACK to us at [phone] for Medicare purposes. For Medicare only, by signing this I certify the plan of care. Please let me know if there are questions or concerns regarding this plan of care. Physician Signature: Date:
--- NOTE | 2022-08-21 10:20 | HP.PTREVAL ---
Dr. Darrel Caceres MD, It has been my pleasure to treat DIONTE BRADFORD over the last 8 visits for Left THR-anterior. Please see the progress note below for an update on the physical therapy plan of care! Subjective: She saw the surgeon and he said to continue with therapy and wants her to get rid of the cane in 3 months. She feels that she is getting better. She still feels weak and her walking is not up to par and she said she went to [facility] and did not know if she was going to get to the car. Objective/Function: Stairs: up and down recip with 2 hand rails with verbal cues to go recip and uses arm rails to pull self up. Weakness present. Gait: flexed trunk and straight cane (pt has fear of falling without the cane). Walks with decrease stride length (R leg does not pass L stance leg and vice versa). Plan Plan: Focus on walking confidence with a gait belt progressing to no cane per . Also add stairs as pt demonstrates weakness on stairs. Focus on LE and core strength/stabilization, balance and functional mobility. HEP Reviewed from Balance/Gait/Functional tests - Balance/Special Test Scores Lower Extremity Functional Score: 35 TUG Test Time Seconds: 31 Tug Test: >30sec.=impaired mobility 30 Second Chair Rise Test Seconds: 4 WOMAC Total Score: 72 WOMAC Percentage: 25.0000 Goals Goal 1:: Patient will be I with HEP and progression Goal Time Frame: 4-6 Weeks Goal Progress: Progressing Goal 2:: Patient will ambulate >300 feet with LRD Goal Time Frame: 4-6 Weeks Goal Progress: Progressing Goal 3:: Patient will asc/desc 8 stairs recip with 1 HR Goal Time Frame: 4-6 Weeks Goal Progress: Progressing Goal 4:: Patient will report 80% improvement Goal Time Frame: 4-6 Weeks Goal Progress: Progressing Anticipated Interventions Patient/Client Instruction: Educate patient on: Benefits of Fitness Program Therapeutic Exercise to Include: Strength training, Endurance training, Balance training, Coordination, Agility training, Body mechanics, Postural training, Flexibilty training, Gait and locomotor training, Neuromotor development, Dynamic Lumbar Stabilization, Scapular Strength/Stabilization For the Purpose of:: To improve muscle performance and motor function Cryotherapy (ice pack, ice massage): Yes Thermo therapy (hot pack): Yes Ultrasound (thermal/non thermal): No Please do not hesitate to contact me at [phone] by phone or if you have questions or concerns regarding this new plan of care! Sincerely, Carline Edgar, MPT
--- NOTE | 2022-12-14 08:26 | HP.PT.NRP ---
DIONTE BRADFORD was seen in my office for initial evaluation on 07/22/22. The following Plan of Care was established for this patient: Initial Frequency: 2x /Week Initial Duration: 4 Weeks Patient/Client Instruction: Educate patient on: Benefits of Fitness Program Therapeutic Exercise to Include: Strength training, Endurance training, Balance training, Coordination, Agility training, Body mechanics, Postural training, Flexibilty training, Gait and locomotor training, Neuromotor development, Dynamic Lumbar Stabilization, Scapular Strength/Stabilization For the Purpose of:: To improve muscle performance and motor function Cryotherapy (ice pack, ice massage): Yes Thermo therapy (hot pack): Yes Ultrasound (thermal/non thermal): No This patient was last seen in our office . Pertinent comments regarding their Physical therapy will appear below: Patient has not attended PT in over 30 days- appropriate to be d/c from PT and return to MD as appropriate At this point I will be discontinuing this patient from physical therapy. I would be happy to see this patient again in the future if found appropriate by the physician. Thank you! Katherine Thomas DPT Balance/Gait/Functional tests - Balance/Special Test Scores Lower Extremity Functional Score: 35 TUG Test Time Seconds: 31 Tug Test: >30sec.=impaired mobility 30 Second Chair Rise Test Seconds: 4 WOMAC Total Score: 72 WOMAC Percentage: 25.0000
== END 2022-09-08 19:00 | disposition home or self-care (01) ==
LOC: PT 10:00
PROVIDERS: PCP Family Medicine Geriatric Medicine; Referring Provider Specialist; Visit Provider Specialist
DX: Z47.1 Aftercare following joint replacement surgery; Z96.642 Presence of left artificial hip joint; S72.012D Unspecified intracapsular fracture of left femur, subsequent encounter for closed fracture with routine healing
CPT/HCPCS: 97110; 97162; 97530

== ENCOUNTER 2022-09-12 17:52 | Inpatient (IN) | payer MEDICARE, OTHER, SELFPAY ==
[2022-09-12] VITALS (13 sets, daily range): BP systolic 107–138; BP diastolic 57–85; PULSE 69–85; RESP 12–21; TEMP 35.8–36.4; O2SAT 94–99; BMI 37.2; BMI 34.9
--- NOTE | 2022-09-12 18:37 | CT_ITS ---
STUDY: CT BRAIN WITHOUT CONTRAST REASON FOR EXAM: Female, 72 years old. Neuro deficit, acute, stroke suspected TECHNIQUE: Transaxial CT imaging of the brain was performed without administration of intravenous contrast material. Individualized dose optimization techniques were used for this CT. Comparison: mri 10.9.19 FINDINGS: Normal calvarium. Normal soft tissues. Normal size ventricles and extra-axial spaces for the patient''s age. Normal white matter tracts of the cerebral hemispheres. Normal basal ganglia and thalami. Normal brainstem. Normal cerebellum. There is no intracranial hemorrhage. There are no findings of an acute ischemic infarction. Normal visualized paranasal sinuses. ASPECTS 10 CT/STROKE Brain/Head without Cont IMPRESSION: There are no acute intracranial findings. N.B. : The above Results were Read Back by Craig Man MD to Gucci Liang MD, and understanding confirmed on 09/12/2022 19:04:38 (ET). Electronically Signed: Craig Man MD at 19:02 EST ,
--- NOTE | 2022-09-12 18:37 | RAD_ITS ---
STUDY: X-RAY - PELVIS AND RIGHT HIP REASON FOR EXAM: Female, 72 years old. FALL TODAY. RIGHT LEG TINGLING. fall/injury TECHNIQUE: XR Hip Unilateral with Pelvis when performed; 2-3 Views COMPARISON: 06.12.22. FINDINGS: There is a non-specific bowel gas pattern. There are atherosclerotic vascular calcifications of the pelvic arteries. Total left hip arthroplasty. Normal bilateral iliac wings, sacroiliac joints and visualized sacrum. Normal bilateral superior and inferior pubic rami. Normal pubic symphysis. Normal bilateral ischial tuberosities. There are osteoarthritic changes of the femoral head with marginal osteophyte formation. Normal acetabulum. There is mild articular joint space narrowing of the hip. RAD/HIP, UNI W/ Pelvis 2-3 Views IMPRESSION: Degenerative findings of the right hip. Electronically Signed: Craig Man MD at 20:11 EST ,
--- NOTE | 2022-09-12 18:38 | CT_ITS ---
We are attempting to reach an attending provider to discuss findings. An addendum with communication details will be sent when the communication is complete. EXAM: CT ANGIOGRAPHY HEAD AND NECK WITH INTRAVENOUS CONTRAST CLINICAL INDICATION: Neuro deficit, acute, stroke suspected RT SIDED WEAKNESS,RT LEG TINGLING AND FELL,DENIES LOC HX:AFIB-TAKES ELIQUIS,CKD,HLD,HTM,FACTOR 5 LEIDEN TECHNIQUE: [facility] [place]/head and neck CT angiography protocol performed with intravenous contrast. This CT exam was performed using one or more of the following dose reduction techniques: automated exposure control, adjustment of the mA and/or kV according to patient size, and/or use of iterative reconstruction technique. This report was created using [employer] report generation technology. MIP reconstructed images were created and reviewed. CONTRAST: 100 ML ISOVUE 370 RADIATION DOSE: CTDIvol = 21.58 mGy, DLP = 606.70 mGy-cm COMPARISON: None. FINDINGS: HEAD: RIGHT ANTERIOR CEREBRAL ARTERY: Unremarkable. No significant stenosis at the visualized segments. Anterior communicating artery is present. No aneurysm. RIGHT MIDDLE CEREBRAL ARTERY: Unremarkable. No significant stenosis at the visualized segments. No aneurysm. RIGHT POSTERIOR CEREBRAL ARTERY: Unremarkable. No occlusion or significant stenosis. No aneurysm. RIGHT INTRACRANIAL INTERNAL CAROTID ARTERY: See below. RIGHT INTRACRANIAL VERTEBRAL ARTERY: Unremarkable. No significant stenosis. No dissection or occlusion. LEFT ANTERIOR CEREBRAL ARTERY: Unremarkable. No significant stenosis at the visualized segments. No aneurysm. LEFT MIDDLE CEREBRAL ARTERY: Unremarkable. No significant stenosis at the visualized segments. No aneurysm. LEFT POSTERIOR CEREBRAL ARTERY: Unremarkable. No occlusion or significant stenosis. No aneurysm. LEFT INTRACRANIAL INTERNAL CAROTID ARTERY: See below. LEFT INTRACRANIAL VERTEBRAL ARTERY: Unremarkable. No significant stenosis. No dissection or occlusion. BASILAR ARTERY: Unremarkable. No significant stenosis. No aneurysm. OTHER VASCULATURE: There is mild atherosclerotic plaque formation of the origin of the right internal carotid artery with less than 50% cross sectional diameter stenosis. ALL ABOVE CRITERIA BY NASCET. There is mild atherosclerotic plaque formation of the origin of the left internal carotid artery with less than 50% cross sectional diameter stenosis. ALL ABOVE CRITERIA BY NASCET. There is calcified plaque formation of the right cavernous carotid artery, with a mild stenosis (less than 50%). ALL ABOVE CRITERIA BY NASCET. NECK: RIGHT COMMON CAROTID ARTERY: Unremarkable. No significant stenosis. No dissection or occlusion. RIGHT EXTRACRANIAL INTERNAL CAROTID ARTERY: See above. RIGHT EXTERNAL CAROTID ARTERY: Unremarkable. No occlusion. RIGHT EXTRACRANIAL VERTEBRAL ARTERY: Unremarkable. No significant stenosis. No dissection or occlusion. LEFT COMMON CAROTID ARTERY: Unremarkable. No significant stenosis. No dissection or occlusion. LEFT EXTRACRANIAL INTERNAL CAROTID ARTERY: See above. LEFT EXTERNAL CAROTID ARTERY: Unremarkable. No occlusion. LEFT EXTRACRANIAL VERTEBRAL ARTERY: Unremarkable. No significant stenosis. No dissection or occlusion. THYROID: The thyroid is heterogenous. It contains nodules. This should be further evaluated with ultrasound. This can be performed as an outpatient. GREAT VESSELS OF AORTIC ARCH: There is calcified plaque formation of the left cavernous carotid artery, with a mild stenosis (less than 50%). ALL ABOVE CRITERIA BY NASCET. LUNG APICES: Unremarkable as visualized. HEAD and NECK: BONES/JOINTS: There are degenerative findings of the cervical spine. No discrete lytic or blastic abnormalities. SOFT TISSUES: Unremarkable. CAROTID STENOSIS REFERENCE USING NASCET CRITERIA: % ICA stenosis = (1 - narrowest ICA diameter/diameter of distal cervical ICA) x 100. Mild - <50% stenosis. Moderate - 50-69% stenosis. Severe - 70-94% stenosis. Near occlusion - 95-99% stenosis. Occluded - 100% stenosis. CT/STROKE CTA Head AND Neck W/Con IMPRESSION: 1. There is mild atherosclerotic plaque formation of the origin of the right internal carotid artery with less than 50% cross sectional diameter stenosis. ALL ABOVE CRITERIA BY NASCET. 2. There is mild atherosclerotic plaque formation of the origin of the left internal carotid artery with less than 50% cross sectional diameter stenosis. ALL ABOVE CRITERIA BY NASCET. 3. There is calcified plaque formation of the right cavernous carotid artery, with a mild stenosis (less than 50%). ALL ABOVE CRITERIA BY NASCET. 4. There is calcified plaque formation of the left cavernous carotid artery, with a mild stenosis (less than 50%). ALL ABOVE CRITERIA BY NASCET. 5. The thyroid is heterogenous. It contains nodules. This should be further evaluated with ultrasound. This can be performed as an outpatient. Electronically Signed: Craig Man MD at 19:27 EST ,
--- NOTE | 2022-09-12 18:42 | EDS_ITS ---
HPI History of Present Illness Chief Complaint: Fall Informant: patient and family Onset/Context/Timing Onset: Today Narrative Narrative: Patient states this morning, she estimates around 10 AM, she started feeling numbness, tingling, and weakness in her right leg. She states as a result, her right leg gave out on her twice while she was getting around the house and preparing for Gil. She has had remote knee replacements, she had an injection of cortisone in her right knee a month or 2 ago, and she states this did not feel like it was a knee issue making her right lower extremity give out. The second time gave out today, she fell onto her right hip. She is having pain there now, is relatively mild, worse with movement, better with remaining still, she was able to bear weight but it was more difficult. Patient is on Eliquis and her last dose was this morning. She takes that because of a remote DVT in one of her legs. She had a left hip replacement months ago. She has some left low back pain today, she does not usually have back pain but she denies any pain in her right low back. The numbness is below the right knee. [facility] Medical History Allergic rhinitis Anemia Anterolisthesis Anxiety Atrial fibrillation Back pain Cardiology follow-up encounter Cataract Cellulitis of left lower leg CKD (chronic kidney disease) CKD (chronic kidney disease) CPAP (continuous positive airway pressure) dependence Deep vein thrombosis Depression Depression DVT (deep venous thrombosis) Factor 5 Leiden mutation, heterozygous Fall Fall as cause of accidental injury at home as place of occurrence Fall due to ice or snow Family history of coronary artery disease Family history of CVA Family history of hypertension Gastric reflux Gastroesophageal reflux disease Head injury without concussion or intracranial hemorrhage Hematoma of left lower extremity High cholesterol History of atrial fibrillation History of DVT (deep vein thrombosis) History of edema History of pain when walking History of stress test Hx of echocardiogram Hyperlipidemia Hypertension Hypertension Injury of back Injury of head and neck Insomnia 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 lower leg with complication care home use of drug Long-term use of high-risk medication Malnourished Migraine Migraine headache Non-smoker Obesity, Class III, BMI 40-49.9 (morbid obesity) Obstructive sleep apnea Open wound Open wound of left lower leg with complication VALENTIN (obstructive sleep apnea) Osteoarthritis Osteopenia Paroxysmal atrial fibrillation Presbycusis of both ears Scoliosis of lumbar spine Segmental and somatic dysfunction of lumbar region Segmental and somatic dysfunction of pelvic region Segmental and somatic dysfunction of thoracic region Skin necrosis Syncope Traumatic ulcer of left lower extremity Vasovagal near syncope Vision problems Walker as ambulation aid Wears glasses Wears hearing aid Home Medications montelukast 10 mg tablet 10 mg PO DAILY Allergies 09/29/13 [History Last Taken 05/28/22] omeprazole 20 mg capsule,delayed release 20 mg PO DAILY GERD 09/29/13 [History Last Taken 05/28/22] amitriptyline 25 mg tablet 25 mg PO QHS Mood 10/25/19 [History Last Taken 05/27/22] galcanezumab-gnlm 120 mg/mL subcutaneous syringe (Emgality) 120 mg subcut QMONTH Migraines 10/25/19 [History Last Taken 05/23/22 08:00] multivitamin 1 tab PO DAILY Supplement 04/26/20 [History Last Taken 05/27/22] divalproex 500 mg tablet,extended release 24 hr (Depakote ER) 500 mg PO QHS Check with primary doctor 01/31/21 [History Last Taken 05/27/22] calcium carbonate 600 mg calcium (1,500 mg) tablet 600 mg PO DAILY supplement 11/24/21 [History Last Taken 05/28/22] ergocalciferol (vitamin D2) 1,250 mcg (50,000 unit) capsule 1,250 mcg PO QWEEK supplement 11/24/21 [History Last Taken 05/27/22 07:00] ascorbic acid (vitamin C) 1,000 mg tablet,extended release (Vitamin C ER) 1,000 mg PO DAILY Supplement 06/01/22 [History Last Taken Unknown] polyethylene glycol 3350 17 gram oral powder packet 17 g PO DAILY bowel mobility 06/01/22 [History Last Taken Unknown] acetaminophen 500 mg tablet 1,000 mg PO Q8H PRN PRN pain #1 TAB 06/12/22 [Rx Last Taken Unknown] apixaban 5 mg tablet 5 mg PO BID Blood thinner #60 tabs 06/12/22 [Rx Last Taken Unknown] citalopram 20 mg tablet 20 mg PO DAILY #30 tabs 06/12/22 [Rx Last Taken Unknown] losartan 50 mg tablet 50 mg PO DAILY #30 tabs 06/12/22 [Rx Last Taken Unknown] niacin 500 mg tablet,extended release 24 hr 500 mg PO QHS #30 tabs 06/12/22 [Rx Last Taken Unknown] oxycodone 5 mg tablet 5 mg PO Q4H PRN PRN Pain 7 days #21 tabs 06/12/22 [Rx Last Taken Unknown] verapamil 240 mg 24 hr capsule,extended release 240 mg PO DAILY BP #30 caps 06/12/22 [Rx Last Taken Unknown] Allergy/AdvReac Type Severity Reaction Status Date / Time cefdinir Allergy Hives Verified 09/12/22 17:58 diphenhydramine HCl Allergy Hives Verified 09/12/22 17:58 [From Benadryl] Sulfa (Sulfonamide Allergy Hives Verified 09/12/22 17:58 Antibiotics) Family History Brother CAD (coronary artery disease) Mother CVA (cerebral vascular accident) CAD (coronary artery disease) Son Hypertension Daughter Hypertension Other Arthritis Cancer Diabetes Family history of CVA Family history of coronary artery disease Family history of hypertension Heart disease High cholesterol Kidney disease Thyroid disorder Surgical History History of bilateral knee replacement History of cholecystectomy History of incision and drainage History of left hip hemiarthroplasty History of total hysterectomy Hx of cataract extraction Social History household members: spouse housing: house number of children: 2 current occupational status: retired current occupational exposures/hazards: No pets and animals: No Smoking Status: Never smoker alcohol intake: never substance use type: does not use caffeine: Yes Type: tea what type of physical activity do you participate in: none seatbelt use: always do you feel safe at home: Yes additional social history: Does Not Take Aspirin Does Not Take Ibuprofen ROS ROS ED Constitutional Constitutional ED: Reports weakness; Denies chills or fever(s) Eyes Eyes: Denies change in vision or diplopia ENT ENT ED: Denies rhinorrhea or sore throat Cardiovascular Cardiovascular: Denies chest pain or palpitations Respiratory/Chest Respiratory/Chest: Denies cough or dyspnea Gastrointestinal Gastrointestinal: Denies abdominal pain, diarrhea, nausea or vomiting Genitourinary Genitourinary ED: Denies dysuria or hematuria Musculoskeletal Musculoskeletal: Reports back pain and extremity pain; Denies neck pain Integumentary Denies abscess or rash Neurologic Neurologic: Reports paresthesias and weakness; Denies headache(s) Psychiatric Psychiatric: Denies anxiety or suicidal thoughts EXAM Physical Exam Const Vital Signs: 09/12/22 17:53 09/12/22 17:53 09/12/22 18:53 Temperature 96.5 F L Temperature Source Temporal Pulse Rate 69 Respiratory Rate 18 Blood Pressure 137/67 H Blood Pressure Mean 90 Pulse Ox 96 Oxygen Delivery Method Room Air Room Air Room Air 09/12/22 18:57 09/12/22 19:07 09/12/22 19:07 Temperature Temperature Source Pulse Rate 69 73 73 Respiratory Rate 18 17 12 Blood Pressure 137/67 H 126/66 H 126/66 H Blood Pressure Mean 90 86 86 Pulse Ox 96 95 97 Oxygen Delivery Method Room Air Room Air Room Air 09/12/22 19:30 Temperature Temperature Source Pulse Rate 85 Respiratory Rate 19 H Blood Pressure 130/85 H Blood Pressure Mean 100 Pulse Ox 97 Oxygen Delivery Method Room Air Positive well nourished and well developed General Appearance ED: well developed and NAD HEENT Reports moist mucous membranes normocephalic and atraumatic Eyes PERRL and EOMs intact bilaterally Neck full ROM and supple Resp normal respiratory effort and clear to auscultation bilaterally Cardio regular rate, regular rhythm and no murmurs GI non-tender and non-distended Auscultation: normoactive bowel sounds Palpation: soft Back/Spine no CVA tenderness General Back: other FROM Extremity normal to inspection General Extremety ED: Negative for edema, pulses abnormal or tenderness General Extremity: Negative for edema or pulses abnormal Neuro oriented x3 and CN's II-XII intact bilaterally Neuro Narrative: Weakness right lower extremity, she immediately hits the bed when I let go of her leg, but then she is able to lift it off of the bed a little bit against gravity on her own. Decree sensation below the knee in the right lower leg, intact dorsalis pedis pulses 1+ bilaterally and symmetric. Normal sensation everywhere else including the face. Normal strength everywhere else, she drifts a little in the left lower extremity but claims that she has had weakness in both of her legs chronically. Mild expressive aphasia objectively when asked to repeat no if's, and's, or but's and she err on it repeatedly. She can identify objects without difficulty and speak without loss of fluency. Sensorium / Orientation: awake and alert Psych mental status grossly normal Skin no rashes or lesions noted and no wounds NIHSS NIHSS Initial: 1a Level of Consciousness: 0 1b LOC Questions (Score 2 if aphasic/stupor): 0 1c LOC Commands (Only score 1st attempt): 0 2 Best Gaze (If aphasic, use reflexive mvmts.): 0 3 Visual: 0 4 Facial Palsy: 0 5 Motor Arm Right (UN = amputation/fusion): 0 5 Motor Arm Left: 0 6 Motor Leg Right: 2 6 Motor Leg Left: 1 7 Limb ataxia (Only + if out of proportion): 0 8 Sensory (Aphasia/stupor=0 or 1, coma=2): 1 9 Best Language: 1 10 Dysarthria (mute, coma=2, intubated=UN): 0 11 Extinction and Inattention (only scored if +): 0 Total Score: 5 MDM MDM MDM Narrative Medical decision making narrative: Delay in calling stroke team because the patient presents with a fall and a right hip injury, and did not mention to triage/staff about weakness and numbness until we started discussing during the initial history. She is not a tPA candidate since she is outside of the timing window and is on Eliquis, however on exam she does have some mild expressive aphasia although she has not noticed any speech symptoms prior to this or other facial symptoms, so I called a stroke alert so that we could expeditiously obtain CT and CT angiography of the head and neck. Certainly radicular symptoms/etiologies are in the differential here, but her straight leg raise is negative and limited to begin with because of the pain with moving her right hip, however I am able to logroll her without any significant difficulty and she has no deformities. Stroke work- up was obtained expeditiously in addition to x-rays of the right hip and pelvis, 3 views on my interpretation show no acute fracture, and my interpretation of the 1 view chest x-ray is that there is nothing acute. CT was negative for bleed, CTA negative for LVO as reported to me by the radiologist on both of these. I did discuss with Dr. Loaiza at [facility] stroke neurology who agrees with my plan to admit the patient locally since there is no LVO, for further work-up including MRI for stroke. Discussed with hospitalist and patient and family they are comfortable with that plan. Lab Data Attestation: I reviewed the patient's lab results. Labs: Laboratory Results - last 24 hr 09/12/22 09/12/22 09/12/22 02:00 02:00 02:00 WBC 5.1 RBC 4.35 Hgb 13.1 Hct 39.5 MCV 90.8 MCH 30.1 MCHC 33.2 RDW Std Deviation 44.3 H RDW Coeff of Shannon 13.2 Plt Count 204 MPV 10.0 Immature Gran % (Auto) 0.200 Neut % (Auto) 61.3 Lymph % (Auto) 25.1 [place] % (Auto) 10.6 H Eos % (Auto) 2.4 Baso % (Auto) 0.4 Absolute Neuts (auto) 3.1 Absolute Lymphs (auto) 1.28 Nucleated RBC % 0 PT 15.1 H INR 1.2 APTT 27.7 Sodium 139 Potassium 3.6 Chloride 106 Carbon Dioxide 28.0 Anion Gap 5 BUN 21 H Creatinine 0.82 Estim Creat Clear Calc 47.61 Est GFR (MDRD) Af Amer 87 Est GFR (MDRD) Non-Af 72 BUN/Creatinine Ratio 25.5 H Glucose 94 Calcium 8.6 Magnesium Troponin I High Sens 10 POC Glucose 09/12/22 09/12/22 02:00 19:21 WBC RBC Hgb Hct MCV MCH MCHC RDW Std Deviation RDW Coeff of Shannon Plt Count MPV Immature Gran % (Auto) Neut % (Auto) Lymph % (Auto) [place] % (Auto) Eos % (Auto) Baso % (Auto) Absolute Neuts (auto) Absolute Lymphs (auto) Nucleated RBC % PT INR APTT Sodium Potassium Chloride Carbon Dioxide Anion Gap BUN Creatinine Estim Creat Clear Calc Est GFR (MDRD) Af Amer Est GFR (MDRD) Non-Af BUN/Creatinine Ratio Glucose Calcium Magnesium 2.1 Troponin I High Sens POC Glucose 88 Radiography Diagnostic Testing: Clinical Impression(s) from Imaging Studies Brain CT 09/12/22 18:37 IMPRESSION: There are no acute intracranial findings. N.B. : The above Results were Read Back by Craig Man MD to Gucci Liang MD, and understanding confirmed on 09/12/2022 19:04:38 (ET). Electronically Signed: Craig Man MD at 19:02 EST Reading Location ID and State: [facility] / [place] , Service support , Hip/Pelvis X-Ray 09/12/22 18:37 IMPRESSION: Degenerative findings of the right hip. Electronically Signed: Craig Man MD at 20:11 EST Reading Location ID and State: [facility] [place] / [place] , Service support , Head/Neck CTA 09/12/22 18:38 IMPRESSION: 1. There is mild atherosclerotic plaque formation of the origin of the right internal carotid artery with less than 50% cross sectional diameter stenosis. ALL ABOVE CRITERIA BY NASCET. 2. There is mild atherosclerotic plaque formation of the origin of the left internal carotid artery with less than 50% cross sectional diameter stenosis. ALL ABOVE CRITERIA BY NASCET. 3. There is calcified plaque formation of the right cavernous carotid artery, with a mild stenosis (less than 50%). ALL ABOVE CRITERIA BY NASCET. 4. There is calcified plaque formation of the left cavernous carotid artery, with a mild stenosis (less than 50%). ALL ABOVE CRITERIA BY NASCET. 5. The thyroid is heterogenous. It contains nodules. This should be further evaluated with ultrasound. This can be performed as an outpatient. Electronically Signed: Craig Man MD at 19:27 EST Reading Location ID and State: [facility] / [place] , Service support , ADDENDUM: 09/12/22 1936 IMPRESSION: 1. There is mild atherosclerotic plaque formation of the origin of the right internal carotid artery with less than 50% cross sectional diameter stenosis. ALL ABOVE CRITERIA BY NASCET. 2. There is mild atherosclerotic plaque formation of the origin of the left internal carotid artery with less than 50% cross sectional diameter stenosis. ALL ABOVE CRITERIA BY NASCET. 3. There is calcified plaque formation of the right cavernous carotid artery, with a mild stenosis (less than 50%). ALL ABOVE CRITERIA BY NASCET. 4. There is calcified plaque formation of the left cavernous carotid artery, with a mild stenosis (less than 50%). ALL ABOVE CRITERIA BY NASCET. 5. The thyroid is heterogenous. It contains nodules. This should be further evaluated with ultrasound. This can be performed as an outpatient. N.B. : The above Results were Read Back by Craig Man MD to Gucci Liang MD, and understanding confirmed on 09/12/2022 19:29:15 (ET). Electronically Signed: Craig Man MD at 19:27 EST , Chest X-Ray 09/12/22 19:40 IMPRESSION: There are no acute findings. Electronically Signed: Craig Man MD at 20:05 EST , Rhythm Strip Rhythm Strip: Sinus Rhythm Rate: 65 Ectopy: None EKG Initial EKG: Attestation: I personally reviewed and interpreted this EKG as follows: Interpretation: Sinus Rhythm and No Acute Injury Pattern Comments: tremor artifact, otherwise, unremarkable Stroke Documentation Questions Stroke Team Activated: Yes (Due to acute stroke symptoms within the last 24 hours) IV Alteplase (t-PA) Administered: No (Due to anticoagulated on Eliquis and outside of timing window) Critical Care Time Critical Care Time: Yes Critical care time (excluding procedures): 30-74 minutes (35 min), Including time spent:, Discussing w/Patient &/or Family/Continuous Still Operator, Discussing w/Consultants, Arranging Admission or Transfer and Performing Direct Patient Care at Bedside Discharge Plan Dx/Rx/DC Orders Clinical Impression: Right leg weakness, Paresthesia of right leg, Contusion of hip, right, Accidental fall Disposition Disposition: Acute Care [facility]
[2022-09-12 19:26] LABS: Absolute Lymphocyte Count 1.28 X10^3/uL (0.83-4.51); Absolute Neutrophil Count 3.1 X10^3/uL (2.0-7.7); Basophil# 0.02 X10^3/uL; Basophil% 0.4 % (0-1); Eosinophil# 0.12 X10^3/uL; Eosinophils% 2.4 % (0-5); Hematocrit 39.5 % (37-47); Hemoglobin 13.1 g/dL (12.0-15.0); Lymphocyte # 1.28 X10^3/ul (0.83-4.51); Lymphocyte % 25.1 % (19-41); Mean Corp Hgb Conc 33.2 g/dL (32-36); Mean Corpuscular Hgb 30.1 pg (27.0-32.0); Mean Corpuscular Volume 90.8 fL (81-99); Monocyte# 0.54 X10^3/uL; Monocyte% 10.6 % (0-10); NRBC Flagged by Analyzer 0 % (0-5); Neutrophil # 3.13 X10^3/uL (2.7-7.7); Neutrophil % 61.3 % (47-70); Platelet Count 204 K/mm3 (150-450); RBC Distribution Width CV 13.2 % (11.6-14.6); RBC Distribution Width SD 44.3 fl (35.1-43.9); Red Blood Count 4.35 M/mm3 (4.2-5.4); White Blood Count 5.1 K/mm3 (4.4-11.0)
[2022-09-12 19:29] LABS: International Normalized Ratio 1.2; Prothrombin Time (Protime)PT. 15.1 SECONDS (11.7-14.9)
[2022-09-12 19:30] LABS: Partial Thromboplast Time 27.7 Seconds (24.1-36.2)
--- NOTE | 2022-09-12 19:35 | HP.PCM.HOS_ITS ---
HPI - General General Date of Admission: 09/12/22 Date of Service: 09/12/22 Chief Complaint: RLE paresthesias, weakness. HPI Narrative The patient is a 72 y/o WF w/ PMHx: Allergic rhinitis, Hx VTE, Factor V Leiden deficiency, Hypertension, PAF, Chronic kidney disease III unclear subtype, Obesity, CKD stage III Unclear subtype, VALENTIN on CPAP q HS, Anxiety and Depression, GERD, Chronic normocytic anemia, Anxiety and Depression, Hx fall 05/28/22 with L hip fracture s/p 05/30/22 L direct anterior hip hemiarthroplasty who presents to the [facility] ED on 09/12/22 with history of onset approximately 10 AM on day of presentation paresthesias including numbness and tingling as well as associated weakness to the right lower extremity reporting that her leg gave out at least twice while she was getting around the house attempting to prepare for Gil with history of remote knee replacements and cortisone injection to the right knee last 2 months prior unfortunately with her last fall falling onto the right hip with pain although reports it is mild, worse with movement and better with rest although able to bear some weight however given ongoing paresthesias and discomfort prompted ED evaluation. Work-up in the ED included T96.5, heart rate 69, BP 137/67, respiratory rate 18, 96% on room air, see C with C5.1, hemoglobin 13.1, platelet 204 without marked shift, unremarkable coags asides PT 15.1, BMP unremarkable, troponin 10 CT of the head no acute intracranial findings, CTA head and neck with mild atherosclerotic plaque formation of the origin of the right ICA with less than 50% cross-sectional diameter stenosis, mild atherosclerotic plaque formation at the origin of the left ICA with less than 50% cross-sectional diameter stenosis, calcified plaque formation of the right cavernous carotid artery with mild stenosis less than 50%, calcified plaque formation of the left cavernous carotid artery with mild stenosis less than 50%, heterogeneous thyroid with nodules, EKG with SR without acute evidence of ischemia, plain film of the R hip with chronic degenerative findings, CXR with no acute cardiopulmonary findings. In the ED initial NIH stroke scale 5 with 1 for motor left lower extremity, 2 motor right lower extremity, right lower extremity sensory alteration as well as 1 for best language with a total of 5. Upon repeat hospitalist evaluation examination similar and again unable to performed no ifs, ands or buts about it but otherwise speech appropriate. COUNT INCLUDES THE [facility] Medical History Allergic rhinitis Anemia Anterolisthesis Anxiety Atrial fibrillation Back pain Cardiology follow-up encounter Cataract Cellulitis of left lower leg CKD (chronic kidney disease) CKD (chronic kidney disease) CPAP (continuous positive airway pressure) dependence Deep vein thrombosis Depression Depression DVT (deep venous thrombosis) Factor 5 Leiden mutation, heterozygous Fall Fall as cause of accidental injury at home as place of occurrence Fall due to ice or snow Family history of coronary artery disease Family history of CVA Family history of hypertension Gastric reflux Gastroesophageal reflux disease Head injury without concussion or intracranial hemorrhage Hematoma of left lower extremity High cholesterol History of atrial fibrillation History of DVT (deep vein thrombosis) History of edema History of pain when walking History of stress test Hx of echocardiogram Hyperlipidemia Hypertension Hypertension Injury of back Injury of head and neck Insomnia 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 Long-term use of high-risk medication Malnourished Migraine Migraine headache Non-smoker Obesity, Class III, BMI 40-49.9 (morbid obesity) Obstructive sleep apnea Open wound Open wound of left lower leg with complication VALENTIN (obstructive sleep apnea) Osteoarthritis Osteopenia Paroxysmal atrial fibrillation Presbycusis of both ears Scoliosis of lumbar spine Segmental and somatic dysfunction of lumbar region Segmental and somatic dysfunction of pelvic region Segmental and somatic dysfunction of thoracic region Skin necrosis Syncope Traumatic ulcer of left lower extremity Vasovagal near syncope Vision problems Walker as ambulation aid Wears glasses Wears hearing aid Home Medications montelukast 10 mg tablet 10 mg PO DAILY Allergies 09/29/13 [History Last Taken 05/28/22] omeprazole 20 mg capsule,delayed release 20 mg PO DAILY GERD 09/29/13 [History Last Taken 05/28/22] amitriptyline 25 mg tablet 25 mg PO QHS Mood 10/25/19 [History Last Taken 05/27/22] galcanezumab-gnlm 120 mg/mL subcutaneous syringe (Emgality) 120 mg subcut QMONTH Migraines 10/25/19 [History Last Taken 05/23/22 08:00] multivitamin 1 tab PO DAILY Supplement 04/26/20 [History Last Taken 05/27/22] divalproex 500 mg tablet,extended release 24 hr (Depakote ER) 500 mg PO QHS headache 01/31/21 [History Last Taken 05/27/22] calcium carbonate 600 mg calcium (1,500 mg) tablet 600 mg PO DAILY supplement 11/24/21 [History Last Taken 05/28/22] ergocalciferol (vitamin D2) 1,250 mcg (50,000 unit) capsule 1,250 mcg PO DAILY supplement 11/24/21 [History Last Taken 05/27/22 07:00] ascorbic acid (vitamin C) 1,000 mg tablet,extended release (Vitamin C ER) 1,000 mg PO DAILY Supplement 06/01/22 [History Last Taken Unknown] acetaminophen 500 mg tablet 1,000 mg PO Q8H PRN PRN pain #1 TAB 06/12/22 [Rx Last Taken Unknown] apixaban 5 mg tablet 5 mg PO BID Blood thinner #60 tabs 06/12/22 [Rx Last Taken Unknown] citalopram 20 mg tablet 20 mg PO DAILY #30 tabs 06/12/22 [Rx Last Taken Unknown] losartan 50 mg tablet 50 mg PO DAILY #30 tabs 06/12/22 [Rx Last Taken Unknown] verapamil 240 mg 24 hr capsule,extended release 240 mg PO DAILY BP #30 caps 06/12/22 [Rx Last Taken Unknown] ferrous sulfate 325 mg (65 mg iron) tablet 325 mg PO DAILY supplement 09/12/22 [History Last Taken Unknown] Allergy/AdvReac Type Severity Reaction Status Date / Time cefdinir Allergy Hives Verified 09/12/22 17:58 diphenhydramine HCl Allergy Hives Verified 09/12/22 17:58 [From Benadryl] Sulfa (Sulfonamide Allergy Hives Verified 09/12/22 17:58 Antibiotics) Family History Brother CAD (coronary artery disease) Mother CVA (cerebral vascular accident) CAD (coronary artery disease) Son Hypertension Daughter Hypertension Other Arthritis Cancer Diabetes Family history of CVA Family history of coronary artery disease Family history of hypertension Heart disease High cholesterol Kidney disease Thyroid disorder Surgical History History of bilateral knee replacement History of cholecystectomy History of incision and drainage History of left hip hemiarthroplasty History of total hysterectomy Hx of cataract extraction Social History household members: spouse housing: house number of children: 2 current occupational status: retired current occupational exposures/hazards: No pets and animals: No Smoking Status: Never smoker alcohol intake: never substance use type: does not use caffeine: Yes Type: tea what type of physical activity do you participate in: none seatbelt use: always do you feel safe at home: Yes additional social history: Does Not Take Aspirin Does Not Take Ibuprofen ROS ROS Narrative Admission Review of Systems: CONSTITUTIONAL: No weight loss, fever, chills, + weakness or fatigue. HEENT: Eyes: No visual loss, blurred vision, double vision or yellow sclerae. Ears, Nose, Throat: No hearing loss, sneezing, congestion, runny nose or sore throat. SKIN: No rash or itching, lesions, wounds. CARDIOVASCULAR: No chest pain, chest pressure or chest discomfort, palpitations, edema, orthopnea, syncopal events. RESPIRATORY: No shortness of breath, cough or sputum, wheezing, hemoptysis. GASTROINTESTINAL: No anorexia, nausea, vomiting or diarrhea, abdominal pain, melena, BRBPR. GENITOURINARY: No dysuria, frequency, urgency or retention. NEUROLOGICAL: + RLE paresthesias, weakness, No headache, dizziness, syncope, paralysis, ataxia, change in bowel or bladder control, seizure. MUSCULOSKELETAL: + muscle, back pain, joint pain or stiffness. HEMATOLOGIC: + anemia, bleeding or bruising. LYMPHATICS: No enlarged nodes. No history of splenectomy. PSYCHIATRIC: + history of depression or anxiety. ENDOCRINOLOGIC: No reports of sweating, cold or heat intolerance. No polyuria or polydipsia. ALLERGIES: + history of rhinitis. Vital Signs Vital Signs Vital Signs: 09/12/22 17:53 09/12/22 17:53 09/12/22 18:53 Temperature 96.5 F L Temperature Source Temporal Pulse Rate 69 Respiratory Rate 18 Blood Pressure 137/67 H Blood Pressure Mean 90 Pulse Ox 96 Oxygen Delivery Method Room Air Room Air Room Air 09/12/22 18:57 09/12/22 19:07 09/12/22 19:07 Temperature Temperature Source Pulse Rate 69 73 73 Respiratory Rate 18 17 12 Blood Pressure 137/67 H 126/66 H 126/66 H Blood Pressure Mean 90 86 86 Pulse Ox 96 95 97 Oxygen Delivery Method Room Air Room Air Room Air Weight Weight: 203 lb 11.314 oz Body Mass Index (BMI) 37.2 Physical Exam Narrative Physical Examination: General: Awake, alert, oriented x 3 and cooperative, seated upright in the ED bed, fatigued appearing Skin: Normal color, normal turgor, no icterus, no cyanosis except for occasional staged ecchymoses. HEENT: AT/NC, EOMI, PERRLA, mildly dry MM, no carotid bruits or JVD noted. Lungs: CTA bilaterally, moderate effort, mild decrease BL bases, no rales, ronchi or wheezing. Heart: Regular rate and rhythm; no gallop, rub audible. Abdomen: Soft, obese, NTTP, ND, distant normal BS, no HSM. Extremities: No cyanosis, no clubbing, mild ankle not markedly pitting edema. Neurological: Patient awake, alert, oriented as noted, cognitive function appears baseline intact; pupils equally reactive to light and accommodation, cranial nerves II-XII grossly normal, moving all 4 extremities however patient does have mild decreased left lower extremity strength, moderate decreased right lower extremity strength, altered sensation right lower extremity, speech fluidity completely appropriate however as noted per ED staff patient is unable to complete no ifs, ands or buts about it, equivocal Babinski, difficulty performing [id number] secondary to bilateral hip discomfort, mild drift bilateral lower extremity, finger-nose intact bilaterally, mild essential tremor bilaterally upper extremities Psychiatric: Affect appears mildly flat, no acute evidence of depressive or anxiety feelings but does have underlying history. Results Lab / Micro Data Result Diagrams: 09/12/22 02:00 09/12/22 02:00 Labs: Laboratory Results - last 24 hr 09/12/22 02:00: WBC 5.1, RBC 4.35, Hgb 13.1, Hct 39.5, MCV 90.8, MCH 30.1, MCHC 33.2, RDW Std Deviation 44.3 H, RDW Coeff of Shannon 13.2, Plt Count 204, MPV 10.0, Immature Gran % (Auto) 0.200, Neut % (Auto) 61.3, Lymph % (Auto) 25.1, [place] % (Auto) 10.6 H, Eos % (Auto) 2.4, Baso % (Auto) 0.4, Absolute Neuts (auto) 3.1, Absolute Lymphs (auto) 1.28, Nucleated RBC % 0 09/12/22 02:00: PT 15.1 H, INR 1.2, APTT 27.7 Rhythm Strip Rhythm Strip: Sinus Rhythm Rate: 65 Ectopy: None Radiology Impression Brain CT 09/12/22 18:37 IMPRESSION: There are no acute intracranial findings. N.B. : The above Results were Read Back by Craig Man MD to Gucci Liang MD, and understanding confirmed on 09/12/2022 19:04:38 (ET). Electronically Signed: Craig Man MD at 19:02 EST , Head/Neck CTA 09/12/22 18:38 IMPRESSION: 1. There is mild atherosclerotic plaque formation of the origin of the right internal carotid artery with less than 50% cross sectional diameter stenosis. ALL ABOVE CRITERIA BY NASCET. 2. There is mild atherosclerotic plaque formation of the origin of the left internal carotid artery with less than 50% cross sectional diameter stenosis. ALL ABOVE CRITERIA BY NASCET. 3. There is calcified plaque formation of the right cavernous carotid artery, with a mild stenosis (less than 50%). ALL ABOVE CRITERIA BY NASCET. 4. There is calcified plaque formation of the left cavernous carotid artery, with a mild stenosis (less than 50%). ALL ABOVE CRITERIA BY NASCET. 5. The thyroid is heterogenous. It contains nodules. This should be further evaluated with ultrasound. This can be performed as an outpatient. Electronically Signed: Craig Man MD at 19:27 EST , Assessment & Plan Assessment/Plan (1) Right leg weakness: (2) Paresthesia of right leg: PLAN: Plan The patient is a 72 y/o WF w/ PMHx: Allergic rhinitis, Hx VTE, Factor V Leiden deficiency, Hypertension, PAF, Chronic kidney disease III unclear subtype, Obesity, CKD stage III Unclear subtype, VALENTIN on CPAP q HS, Anxiety and Depression, GERD, Chronic normocytic anemia, Anxiety and Depression, Hx fall 05/28/22 with L hip fracture s/p 05/30/22 L direct anterior hip hemiarthroplasty who presents to the [facility] ED on 09/12/22 with history of onset RLE paresthesias, weakness with multiple falls prompting ED evaluation. #1. RLE weakness, paresthesias concerning for CVA: Will admit to PCU, will obtain MRI Brain, ECHO last 07/02/21 thus will repeat and assure bubble study performed given presentation, PT/OT/Speech/Nutrition evaluation per protocol. Wi ll allow permissive HTN, maintain on asa, eliquis, add moderate dose statin w/ AM FLP, fall precautions. Mag, TSH, HgbA1c. Once work-up obtained will consider Neurology evaluation. #2. Incidental heterogeneous thyroid: Noted heterogeneous thyroid with nodules on imaging, TSH and free T4 requested. Will need follow-up ultrasound. #3. PAF: Given acute presentation #1, will temporarily hold verapamil regimen, continue home Eliquis. 09/24/20 ECHO w/ normal LV systolic function, EF 65%, mild enlarged LA, trivial MVI, trivial TVI with no evidence of diastolic dysfunction. #4. History of VTE (DVT, PE) with underlying factor V Leiden deficiency: Patient on chronic Eliquis therapy, continue chronic regimen pending further Neurology input. #5. Chronic normal anemia: Admission hemoglobin 13.1, prior baseline more recently -, improved, continue to trend. #6. Chronic Kidney Disease Stage III, unclear subtype: Admission BUN/Cr 21/0.82, baseline renal function primarily 0.8-1.1, repeat BMP in AM. #7. Anxiety and depression/? Bipolar disorder: We will continue patient home amitriptyline, Depakote and citalopram regimen. #8. Allergic rhinitis: We will continue patient home montelukast and levocetirizine regimen. #9. Hypertension: Given acute presentation will maintain permissive HTN with re-addition regimen once appropriate pending evaluation as noted #1, PRN agents per stroke protocol. #10. Hyperlipidemia: Not on regimen, add at least moderate dose statin given presentation #1, FLP in AM. #11. Chronic migraines: Patient receives outpatient monthly galcanexumab inj ections, recommend continued evaluation/treatment. #12. GERD: We will continue patient home PPI. #13. VALENTIN: CPAP q HS. #14 DVT Prophylaxis: SCDs, continue home eliquis. #15 CODE status: Patient GLENNA is her daughter who is present and living will is currently in place. Discussed CODE status at length including difference between FULL code, DNR-CCA and DNR-CC status. Following discussions about the differences in these status, requested DNR-CCA, no intubation status. Advanced Care Planning Face to Face Time: 16 minutes. Charges/Coding Visit Charges Inpatient E&M: 74786 Init Hosp L3 Procedures Hospitalists Procedures: 75089 Advncd Care Plan 30 Min
--- NOTE | 2022-09-12 19:40 | RAD_ITS ---
STUDY: X-RAY CHEST REASON FOR EXAM: Female, 72 years old. Neuro deficit, acute, stroke suspected TECHNIQUE: XR Chest 1 View COMPARISON: 8.4.21 FINDINGS: There is atherosclerotic calcification of the aortic arch with tortuosity. There are diffuse degenerative changes of the visualized thoracic spine. There is degenerative osteoarthritis of the bilateral shoulders. There is no demonstrated pleural abnormality. Normal size heart. Normal mediastinum and marlene. Normal visualized pulmonary arteries. There is no demonstrated abnormality of the visualized soft tissue structures of the upper abdomen. RAD/Chest 1 View IMPRESSION: There are no acute findings. Electronically Signed: Craig Man MD at 20:05 EST ,
[2022-09-12 19:41] LABS: Bedside Glucose 88 mg/dL (74-106)
[2022-09-12 19:58] LABS: Anion Gap 5 (5-15); BUN 21 mg/dL (7-18); BUN/Creat Ratio 25.5 RATIO (10-20); Calcium,Total 8.6 mg/dL (8.5-10.1); Chloride 106 mmol/L (98-107); Creatinine, Serum 0.82 mg/dL (0.55-1.02); EST Glomerular Filtration Rate 72 mL/min (>60); Est Glom Filt Rate - Afr Amer 87 mL/min (>60); Estimated Creatinine Clearance 47.61 ml/min; Glucose 94 mg/dL (74-106); Potassium 3.6 mmol/L (3.5-5.1); Sodium Level 139 mmol/L (136-145); Troponin-I HS 10 pg/mL (3.0-54.0)
[2022-09-12 22:06] LABS: Magnesium 2.1 mg/dL (1.6-2.6)
--- NOTE | 2022-09-12 22:36 | MRI_ITS ---
EXAM: MR HEAD WITHOUT INTRAVENOUS CONTRAST CLINICAL INDICATION: CVA, numbness, weakness RLE TECHNIQUE: Multiplanar and multisequence MR images of the brain were obtained without intravenous contrast. This report was created using [employer] report generation technology. COMPARISON: CT head without contrast 09/12/2022. FINDINGS: BRAIN AND EXTRA-AXIAL SPACES: No diffusion restriction to suspect acute or subacute ischemic infarct. Few small T2 FLAIR hyperintensity foci in the white matter of the cerebral hemispheres are chronic white matter ischemic changes. No midline shift and no mass effects. No intra- or extra-axial hemorrhage. Posterior fossa structures are unremarkable. Ventricles are appropriate for age. No hydrocephalus. Basal cisterns are patent. SELLA: Unremarkable. Normal sella turcica, pituitary gland, infundibular stalk, optic chiasm and hypothalamus. AUDITORY SYSTEM: Unremarkable. The internal auditory canals are patent. BONES/JOINTS: Unremarkable. No discrete lytic or blastic abnormalities. SINUSES: Unremarkable as visualized. Clear. MASTOID AIR CELLS: Unremarkable as visualized. Clear. ORBITS: Unremarkable as visualized. Both globes, extraocular muscles, optic nerves and retrobulbar fat appear unremarkable. VASCULATURE: Unremarkable as visualized. Normal flow voids in the major intracranial circulation. MRI/Brain without Contrast IMPRESSION: 1. No MRI evidence of acute or subacute ischemic infarct or acute intracranial abnormality. 2. Few small chronic white matter ischemic changes in both cerebral hemispheres. Electronically Signed: Emeterio Chinchilla MD at 13:37 EST ,
--- NOTE | 2022-09-12 22:36 | ECHOD_ITS ---
Reason For Study: CVA Procedure This was a 2D Doppler, Color Flow transthoracic echocardiogram. Exam performed portable in patient room. Left Ventricle Normal size and thickness. The left ventricular ejection fraction is 60 %. Diastolic function is indeterminate. Right Ventricle Normal right ventricle. Atria The left and right atria are normal. Mitral Valve Trivial mitral valve insufficiency. Tricuspid Valve Trivial tricuspid valve insufficiency. Pulmonary artery systolic pressure is 37 mmHg. Aortic Valve Normal aortic valve. Pulmonic Valve The pulmonic valve is not well visualized. Great Vessels Normal sized aortic root. Pericardium/Pleural No pericardial effusion. MMode/2D Measurements & Calculations LVIDd: 5.3 cm IVSd: 0.60 cm Ao root diam: 3.1 cm LVIDs: 4.3 cm LVPWd: 0.80 cm RVDd: 3.2 cm FS: 18.8 % LAV(MOD-bp): 60.8 ml LVAd ap2: 19.2 cm2 SV(MOD-sp2): 32.8 ml LAV(MOD-bp) Indexed: 32.2 ml/m2 LVLd ap2: 5.9 cm LAV(MOD-sp2): 40.2 ml EDV(MOD-sp2): 52.4 ml LAV(MOD-sp4): 72.1 ml EDV(sp2-el): 52.5 ml LVAs ap2: 10.8 cm2 LVLs ap2: 5.3 cm ESV(MOD-sp2): 19.6 ml ESV(sp2-el): 18.7 ml EF(MOD-sp2): 62.6 % LA A4 area: 26.0 cm2 LA dimension(2D): 4.5 cm RA A4 area: 20.2 cm2 Time Measurements MV dec time: 0.20 sec Doppler Measurements & Calculations MV E max dg: 60.1 cm/sec Lat Peak E' Dg: 11.8 cm/sec Med Peak E' Dg: 7.9 cm/sec MV A max dg: 64.3 cm/sec E/E' lat: 5.1 E/E' med: 7.6 MV E/A: 0.93 MV V2 max: 78.3 cm/sec Ao V2 max: 133.7 cm/sec MV max P.5 mmHg MV dec slope: 296.9 cm/sec2 Ao max P.2 mmHg MV V2 mean: 51.4 cm/sec Ao V2 mean: 91.4 cm/sec MV mean P.2 mmHg Ao mean P.8 mmHg MV V2 VTI: 20.6 cm Ao V2 VTI: 32.5 cm AV (velocity ratio): 0.49 LV V1 max: 89.8 cm/sec MR max dg: 357.7 cm/sec PA V2 max: 84.6 cm/sec LV V1 max P.2 mmHg MR max P.2 mmHg PA V2 mean: 59.7 cm/sec LV V1 mean P.5 mmHg LV V1 mean: 56.8 cm/sec LV V1 VTI: 15.9 cm TR max dg: 286.1 cm/sec TR max P.7 mmHg ECHO/Echo Complete Interpretation Summary The left ventricular ejection fraction is 60 %. Diastolic function is indeterminate. Ordering Physician: Margot Ribeiro Referring Physician: Desmond Riojas Chi Performed By: Xin Ferro RCS
[2022-09-12] MEDS: 0.9% Normal Saline 1,000 ML 100 ML IV (23:16)
[2022-09-12] MEDS: Divalproex (ER) 500 MG Tablet PO (23:17)
[2022-09-12] MEDS: Atorvastatin Calcium 40 MG Tablet PO (23:17)
[2022-09-12] MEDS: Amitriptyline 25 MG Tablet PO (23:17)
[2022-09-12] MEDS: APIXABAN 5 MG TABLET PO (23:17)
--- NOTE | 2022-09-12 23:42 | CPS ---
Talked to pt about CPAP. Pt stated that she would like to just wear O2 for the night, until she is able to have a family member bring in her own CPAP unit tomorrow.
[2022-09-13] VITALS (11 sets, daily range): BP systolic 100–139; BP diastolic 56–72; PULSE 63–82; RESP 16–18; TEMP 36.4–36.7; O2SAT 94–97; BMI 34.9
[2022-09-13 05:28] LABS: Absolute Lymphocyte Count 1.14 X10^3/uL (0.83-4.51); Absolute Neutrophil Count 2.6 X10^3/uL (2.0-7.7); Basophil# 0.03 X10^3/uL; Basophil% 0.7 % (0-1); Eosinophil# 0.13 X10^3/uL; Hemoglobin 12.6 g/dL (12.0-15.0); Lymphocyte # 1.14 X10^3/ul (0.83-4.51); Lymphocyte % 26.5 % (19-41); Mean Corp Hgb Conc 34.1 g/dL (32-36); Mean Corpuscular Hgb 30.7 pg (27.0-32.0); Mean Corpuscular Volume 90.2 fL (81-99); Mean Platelet Vol. 9.5 fl (6.2-12.0); Monocyte# 0.45 X10^3/uL; Monocyte% 10.4 % (0-10); NRBC Flagged by Analyzer 0 % (0-5); Neutrophil # 2.55 X10^3/uL (2.7-7.7); Neutrophil % 59.2 % (47-70); Platelet Count 173 K/mm3 (150-450); RBC Distribution Width CV 13.2 % (11.6-14.6); RBC Distribution Width SD 43.6 fl (35.1-43.9); White Blood Count 4.3 K/mm3 (4.4-11.0)
[2022-09-13 06:03] LABS: ALB/GLOB Ratio 0.8 RATIO (0.9-2.4); AST(SGOT) 11 U/L (15-37); Alanine Aminotransfer ALT/SGPT 16 U/L (13-56); Albumin, Serum 2.8 g/dL (3.2-5.0); Alkaline Phosphatase 65 U/L (45-117); Anion Gap 4 (5-15); BUN 14 mg/dL (7-18); BUN/Creat Ratio 19.6 RATIO (10-20); Calcium,Total 8.4 mg/dL (8.5-10.1); Chloride 110 mmol/L (98-107); Cholesterol 201 mg/dL (200); Creatinine, Serum 0.72 mg/dL (0.55-1.02); EST Glomerular Filtration Rate 85 mL/min (>60); Est Glom Filt Rate - Afr Amer 102 mL/min (>60); Estimated Creatinine Clearance 39.04 ml/min; Globulin 3.3 g/dL (2.2-4.2); Glucose 90 mg/dL (74-106); High Density Lipoprotein 45 mg/dL; Potassium 3.8 mmol/L (3.5-5.1); Protein, Total 6.1 g/dL (6.4-8.2); Sodium Level 142 mmol/L (136-145); T4 Free Direct 1.06 ng/dL (0.76-1.46); Thyroid Stim Hormone (TSH) 1.44 uIU/mL (0.358-3.74); Triglycerides 73 mg/dL; Very Low Density Lipoprotein 15 mg/dL (5-40)
[2022-09-13 07:25] LABS: Hemoglobin A1c 5.2 % (3.8-5.6)
--- NOTE | 2022-09-13 08:12 | PCM.PN.HOSP ---
Subjective Subjective Patient is a 72-year-old lady with history of hypercoagulable state factor V Leyden mutation with subsequent VTE, paroxysmal A. fib on Eliquis who presented with numbness and subjective weakness involving the right lower extremity. There was a concern for possible CVA admitted to monitored bed for subsequent eval and management Objective Data Objective Data Vital Signs: Vital Signs Temp Pulse Resp BP Pulse Ox O2 Del Method O2 Flow Rate 97.5 F L 71 16 101/56 L 94 Room Air 2 09/13/22 06:44 09/13/22 07:33 09/13/22 06:44 09/13/22 06:44 09/13/22 06:44 09/13/22 06:44 09/13/22 00:05 Oxygen Flow Rate (L/min) 2 Oxygen Delivery Method Room Air Weight: 87.9 kg Body Mass Index (BMI) 34.9 Intake & Output: Intake and Output for Last 24 Hours 09/11/22 09/12/22 09/13/22 23:59 23:59 23:59 Intake Total 220 / 220 Balance 220 / 220 Lab / Micro Data Result Diagrams: 09/13/22 05:20 09/13/22 05:20 Labs: Laboratory Results - last 24 hr 09/12/22 02:00: WBC 5.1, RBC 4.35, Hgb 13.1, Hct 39.5, MCV 90.8, MCH 30.1, MCHC 33.2, RDW Std Deviation 44.3 H, RDW Coeff of Shannon 13.2, Plt Count 204, MPV 10.0, Immature Gran % (Auto) 0.200, Neut % (Auto) 61.3, Lymph % (Auto) 25.1, [place] % (Auto) 10.6 H, Eos % (Auto) 2.4, Baso % (Auto) 0.4, Absolute Neuts (auto) 3.1, Absolute Lymphs (auto) 1.28, Nucleated RBC % 0 09/12/22 02:00: PT 15.1 H, INR 1.2, APTT 27.7 09/12/22 02:00: Sodium 139, Potassium 3.6, Chloride 106, Carbon Dioxide 28.0, Anion Gap 5, BUN 21 H, Creatinine 0.82, Estim Creat Clear Calc 47.61, Est GFR (MDRD) Af Amer 87, Est GFR (MDRD) Non-Af 72, BUN/Creatinine Ratio 25.5 H, Glucose 94, Calcium 8.6, Troponin I High Sens 10 09/12/22 02:00: Magnesium 2.1 09/12/22 19:21: POC Glucose 88 09/13/22 05:20: WBC 4.3 L, RBC 4.10 L, Hgb 12.6, Hct 37.0, MCV 90.2, MCH 30.7, MCHC 34.1, RDW Std Deviation 43.6, RDW Coeff of Shannon 13.2, Plt Count 173, MPV 9.5, Immature Gran % (Auto) 0.200, Neut % (Auto) 59.2, Lymph % (Auto) 26.5, [place] % (Auto) 10.4 H, Eos % (Auto) 3.0, Baso % (Auto) 0.7, Absolute Neuts (auto) 2.6, Absolute Lymphs (auto) 1.14, Nucleated RBC % 0 09/13/22 05:20: Sodium 142, Potassium 3.8, Chloride 110 H, Carbon Dioxide 28.0, Anion Gap 4 L, BUN 14, Creatinine 0.72, Estim Creat Clear Calc 39.04, Est GFR (MDRD) Af Amer 102, Est GFR (MDRD) Non-Af 85, BUN/Creatinine Ratio 19.6, Glucose 90, Calcium 8.4 L, Total Bilirubin 0.40, AST 11 L, ALT 16, Alkaline Phosphatase 65, Total Protein 6.1 L, Albumin 2.8 L, Globulin 3.3, Albumin/Globulin Ratio 0.8 L, Triglycerides 73, Cholesterol 201 H, LDL Cholesterol 141 H, VLDL Cholesterol 15, HDL Cholesterol 45, TSH 1.44, Free T4 1.06 09/13/22 05:20: Hemoglobin A1c 5.2 Radiography Diagnostic Testing: Radiology Impression Brain CT 09/12/22 18:37 IMPRESSION: There are no acute intracranial findings. N.B. : The above Results were Read Back by Craig Man MD to Gucci Liang MD, and understanding confirmed on 09/12/2022 19:04:38 (ET). Electronically Signed: Craig Man MD at 19:02 EST , Hip/Pelvis X-Ray 09/12/22 18:37 IMPRESSION: Degenerative findings of the right hip. Electronically Signed: Craig Man MD at 20:11 EST , Head/Neck CTA 09/12/22 18:38 IMPRESSION: 1. There is mild atherosclerotic plaque formation of the origin of the right internal carotid artery with less than 50% cross sectional diameter stenosis. ALL ABOVE CRITERIA BY NASCET. 2. There is mild atherosclerotic plaque formation of the origin of the left internal carotid artery with less than 50% cross sectional diameter stenosis. ALL ABOVE CRITERIA BY NASCET. 3. There is calcified plaque formation of the right cavernous carotid artery, with a mild stenosis (less than 50%). ALL ABOVE CRITERIA BY NASCET. 4. There is calcified plaque formation of the left cavernous carotid artery, with a mild stenosis (less than 50%). ALL ABOVE CRITERIA BY NASCET. 5. The thyroid is heterogenous. It contains nodules. This should be further evaluated with ultrasound. This can be performed as an outpatient. Electronically Signed: Craig Man MD at 19:27 EST , ADDENDUM: 09/12/22 1936 IMPRESSION: 1. There is mild atherosclerotic plaque formation of the origin of the right internal carotid artery with less than 50% cross sectional diameter stenosis. ALL ABOVE CRITERIA BY NASCET. 2. There is mild atherosclerotic plaque formation of the origin of the left internal carotid artery with less than 50% cross sectional diameter stenosis. ALL ABOVE CRITERIA BY NASCET. 3. There is calcified plaque formation of the right cavernous carotid artery, with a mild stenosis (less than 50%). ALL ABOVE CRITERIA BY NASCET. 4. There is calcified plaque formation of the left cavernous carotid artery, with a mild stenosis (less than 50%). ALL ABOVE CRITERIA BY NASCET. 5. The thyroid is heterogenous. It contains nodules. This should be further evaluated with ultrasound. This can be performed as an outpatient. N.B. : The above Results were Read Back by Craig Man MD to Gucci Liang MD, and understanding confirmed on 09/12/2022 19:29:15 (ET). Electronically Signed: Craig Man MD at 19:27 EST , Chest X-Ray 09/12/22 19:40 IMPRESSION: There are no acute findings. Electronically Signed: Craig Man MD at 20:05 EST , Rhythm Strip Rhythm Strip: Sinus Rhythm Rate: 65 Ectopy: None Physical Exam Narrative GENERAL: cooperative HEENT: Atraumatic; normocephalic EYES; Anicteric, Normal Conjunctiva NECK; supple, normal thyroid, RESPIRATORY: Diminished to auscultation CARDIOVASCULAR: Regular S1 S2, GI: soft, normoactive bowel sounds, : No Renal angle tenderness; EXTREMITIES: No edema, no clubbing, MUSCULOSKELETAL: no muscle wasting NEURO: Awake; no lateralizing signs. SKIN: No Rash PSYCH; Flat affect Assessment & Plan Assessment/Plan (1) Right leg weakness: (2) Paresthesia of right leg: PLAN: Plan Patient is a 72-year-old lady with history of hypercoagulable state factor V Leyden mutation with subsequent VTE, paroxysmal A. fib on Eliquis who presented with numbness and subjective weakness involving the right lower extremity. There was a concern for possible CVA admitted to monitored bed for subsequent eval and management 1. Right lower extremity paresthesias and subjective weakness ? With possible concern for acute CVA. Admitted to a monitored bed every 4 neurochecks ordered. As part of patient management ordered MRI of the brain as well as 2D echo 2. Incidental heterogeneous thyroid nodules ? Patient to undergo subsequent work-up with thyroid ultrasound 3. Hypercoagulable state with history of 35 Leyden mutation with subsequent VTE ? Patient is on Eliquis 4. Paroxysmal A. fib ? Rate controlled systemic anticoagulation with Eliquis did continue 5. Anemia - Secondary to chronic disorder monitoring H&H and transfuse if patient becomes symptomatic or hemoglobin falls below 7 6. Hypertension - Blood pressure controlled, home medications continued with dose adjustment as needed 7. Depression with anxiety ? Patient is on citalopram did continue 8. GERD ? On PPI continue 9. Class II obesity with BMI of 35.4 ? Weight loss advised 10. DVT prophylaxis ? Patient is on Eliquis Charges/Coding Visit Charges Inpatient E&M: 45776 Subs Hosp L2
[2022-09-13] MEDS: Aspirin 81 MG TAB.CHEW PO (09:07)
[2022-09-13] MEDS: Citalopram 20 MG Tablet PO (09:07)
[2022-09-13] MEDS: Pantoprazole Sodium 20 MG Tablet PO (09:07)
[2022-09-13] MEDS: APIXABAN 5 MG TABLET PO ×2 (09:08→21:38)
[2022-09-13] MEDS: Montelukast 10 MG Tablet PO (09:08)
[2022-09-13] MEDS: Acetaminophen 325 MG Tablet 650 MG PO (17:47)
[2022-09-13] MEDS: 0.9% Saline Lock 10 ML Syringe IV (21:37)
[2022-09-13] MEDS: Divalproex (ER) 500 MG Tablet PO (21:38)
[2022-09-13] MEDS: Atorvastatin Calcium 40 MG Tablet PO (21:38)
[2022-09-13] MEDS: Amitriptyline 25 MG Tablet PO (21:38)
[2022-09-14] VITALS (7 sets, daily range): BP systolic 119–141; BP diastolic 71–81; PULSE 55–79; RESP 14–16; TEMP 36.5–36.7; O2SAT 96–98; BMI 34.9
[2022-09-14 07:01] LABS: Absolute Lymphocyte Count 1.03 X10^3/uL (0.83-4.51); Absolute Neutrophil Count 1.6 X10^3/uL (2.0-7.7); Basophil# 0.02 X10^3/uL; Basophil% 0.6 % (0-1); Eosinophil# 0.25 X10^3/uL; Eosinophils% 7.5 % (0-5); Hematocrit 38.7 % (37-47); Hemoglobin 12.7 g/dL (12.0-15.0); Lymphocyte # 1.03 X10^3/ul (0.83-4.51); Mean Corp Hgb Conc 32.8 g/dL (32-36); Mean Corpuscular Hgb 29.9 pg (27.0-32.0); Mean Corpuscular Volume 91.1 fL (81-99); Mean Platelet Vol. 9.6 fl (6.2-12.0); Monocyte# 0.37 X10^3/uL; Monocyte% 11.1 % (0-10); NRBC Flagged by Analyzer 0 % (0-5); Neutrophil # 1.64 X10^3/uL (2.7-7.7); Neutrophil % 49.5 % (47-70); Platelet Count 181 K/mm3 (150-450); RBC Distribution Width CV 13.2 % (11.6-14.6); RBC Distribution Width SD 44.4 fl (35.1-43.9); Red Blood Count 4.25 M/mm3 (4.2-5.4); White Blood Count 3.3 K/mm3 (4.4-11.0)
[2022-09-14 07:41] LABS: Anion Gap 5 (5-15); BUN 14 mg/dL (7-18); BUN/Creat Ratio 16.9 RATIO (10-20); Calcium,Total 8.6 mg/dL (8.5-10.1); Chloride 108 mmol/L (98-107); Creatinine, Serum 0.83 mg/dL (0.55-1.02); EST Glomerular Filtration Rate 72 mL/min (>60); Est Glom Filt Rate - Afr Amer 87 mL/min (>60); Estimated Creatinine Clearance 47.03 ml/min; Glucose 93 mg/dL (74-106); Magnesium 2.1 mg/dL (1.6-2.6); Potassium 3.9 mmol/L (3.5-5.1); Sodium Level 141 mmol/L (136-145)
[2022-09-14] MEDS: APIXABAN 5 MG TABLET PO (09:27)
[2022-09-14] MEDS: Pantoprazole Sodium 20 MG Tablet PO (09:27)
[2022-09-14] MEDS: Aspirin 81 MG TAB.CHEW PO (09:27)
[2022-09-14] MEDS: Montelukast 10 MG Tablet PO (09:27)
[2022-09-14] MEDS: Citalopram 20 MG Tablet PO (09:27)
[2022-09-14] MEDS: Ferrous Sulfate 325 MG Tablet PO (09:30)
--- NOTE | 2022-09-14 09:53 | PCM.PN.HOSP ---
Subjective Subjective Patient right lower extremity numbness resolved however she still complains of some subjective weakness. Scheduled to undergo MRI of the brain. Also added MRI of the lumbosacral spine Objective Data Objective Data Vital Signs: Vital Signs Temp Pulse Resp BP Pulse Ox O2 Del Method O2 Flow Rate 97.9 F 67 16 130/72 H 98 Room Air 2 09/14/22 05:40 09/14/22 07:00 09/14/22 05:40 09/14/22 05:40 09/14/22 05:40 09/14/22 08:28 09/14/22 05:44 Oxygen Flow Rate (L/min) 2 Oxygen Delivery Method Room Air Weight: 88 kg Body Mass Index (BMI) 34.9 Intake & Output: Intake and Output for Last 24 Hours 09/12/22 09/13/22 09/14/22 23:59 23:59 23:59 Intake Total 220 / 220 2079 / 2079 Balance 220 / 220 2079 Lab / Micro Data Result Diagrams: 09/14/22 06:43 09/14/22 06:43 Labs: Laboratory Results - last 24 hr 09/14/22 06:43: WBC 3.3 L, RBC 4.25, Hgb 12.7, Hct 38.7, MCV 91.1, MCH 29.9, MCHC 32.8, RDW Std Deviation 44.4 H, RDW Coeff of Shannon 13.2, Plt Count 181, MPV 9.6, Immature Gran % (Auto) 0.300, Neut % (Auto) 49.5, Lymph % (Auto) 31.0, [place] % (Auto) 11.1 H, Eos % (Auto) 7.5 H, Baso % (Auto) 0.6, Absolute Neuts (auto) 1.6 L, Absolute Lymphs (auto) 1.03, Nucleated RBC % 0 09/14/22 06:43: Sodium 141, Potassium 3.9, Chloride 108 H, Carbon Dioxide 28.0, Anion Gap 5, BUN 14, Creatinine 0.83, Estim Creat Clear Calc 47.03, Est GFR (MDRD) Af Amer 87, Est GFR (MDRD) Non-Af 72, BUN/Creatinine Ratio 16.9, Glucose 93, Calcium 8.6, Magnesium 2.1 Rhythm Strip Rhythm Strip: Sinus Rhythm Rate: 65 Ectopy: None Physical Exam Narrative GENERAL: cooperative HEENT: Atraumatic; normocephalic EYES; Anicteric, Normal Conjunctiva NECK; supple, normal thyroid, RESPIRATORY: Diminished to auscultation CARDIOVASCULAR: Regular S1 S2, GI: soft, normoactive bowel sounds, : No Renal angle tenderness; EXTREMITIES: No edema, no clubbing, MUSCULOSKELETAL: no muscle wasting NEURO: Awake; no lateralizing signs. SKIN: No Rash PSYCH; Flat affect Assessment & Plan Assessment/Plan (1) Right leg weakness: (2) Paresthesia of right leg: PLAN: Plan Patient is a 72-year-old lady with history of hypercoagulable state factor V Leyden mutation with subsequent VTE, paroxysmal A. fib on Eliquis who presented with numbness and subjective weakness involving the right lower extremity. There was a concern for possible CVA admitted to monitored bed for subsequent eval and management 1. Right lower extremity paresthesias and subjective weakness ? With possible concern for acute CVA. Admitted to a monitored bed every 4 neurochecks ordered. As part of patient management ordered MRI of the brain as well as 2D echo -09/14/2022; Patient right lower extremity numbness resolved however she still complains of some subjective weakness. Scheduled to undergo MRI of the brain. Also added MRI of the lumbosacral spine 2. Incidental heterogeneous thyroid nodules ? Patient to undergo subsequent work-up with thyroid ultrasound 3. Hypercoagulable state with history of 35 Leyden mutation with subsequent VTE ? Patient is on Eliquis 4. Paroxysmal A. fib ? Rate controlled systemic anticoagulation with Eliquis did continue 5. Anemia - Secondary to chronic disorder monitoring H&H and transfuse if patient becomes symptomatic or hemoglobin falls below 7 6. Hypertension - Blood pressure controlled, home medications continued with dose adjustment as needed 7. Depression with anxiety ? Patient is on citalopram did continue 8. GERD ? On PPI continue 9. Class II obesity with BMI of 35.4 ? Weight loss advised 10. DVT prophylaxis ? Patient is on Eliquis Charges/Coding Visit Charges Inpatient E&M: 63306 Subs Hosp L2
--- NOTE | 2022-09-14 09:59 | MRI_ITS ---
STUDY: MRI LUMBAR SPINE WITHOUT CONTRAST REASON FOR EXAM: Female, 72 years old. Radiculopathy, RLE WEAKNESS TECHNIQUE: Standardized fat and water weighted pulse sequences were obtained in the sagittal and axial planes. COMPARISON: MRI lumbar spine without contrast 01/08/2022. FINDINGS: T9-T10 and T10-T11: (Sagittal only). Normal endplates. Normal disc height, hydration and morphology. No ventral extradural defects. Normal central canal and bilateral intervertebral neural foramina. T11-T12: (Sagittal only). Normal endplates. Minimal disc space height narrowing. Mild ventral extradural defect due to posterior bulging annulus is unchanged. Normal central canal and bilateral intervertebral neural foramina. T12-L1: Normal endplates. Mild disc space height narrowing. Mild ventral extradural defect due to posterior bulging annulus is unchanged. Normal facet joints. Normal central canal and bilateral lateral recesses. Normal bilateral intervertebral neural foramina. Normal lumbar lordosis. There is no substantial scoliosis. Normal conus medullaris that terminates at the T11-T12 disc space level. L1-2: Normal endplates. Pronounced posterior disc space height narrowing. Mild degenerative retrolisthesis of L1 on L2. Mild bilateral degenerative facet arthropathy. Normal central canal and bilateral lateral recesses. Normal bilateral intervertebral neural foramina. Benign focal fat infiltration in the left posterior L2 vertebral body extending to the left L2 pedicle. L2-3: Normal endplates. Moderate disc space height narrowing. Mild ventral extradural defect is posterior bulging annulus and unchanged. Mild asymmetric degenerative facet arthropathy. Mild central canal stenosis with an AP canal diameter of 10 mm is unchanged. Normal bilateral lateral recesses. Normal bilateral intervertebral neural foramina. L3-4: Normal endplates. Mild degenerative anterolisthesis of L3 on L4 is unchanged. Pronounced bilateral degenerative facet arthropathy. Prominent posterior ligamentum flavum hypertrophy. Pronounced central canal stenosis with an AP canal diameter of 5 mm. Moderate stenosis of the bilateral lateral recesses. [id number] stenosis of the right intervertebral neural foramen and mild stenosis of the left intervertebral neural foramen. This level is unchanged. L4-5: Normal endplates. Mild disc space height narrowing. Mild degenerative anterolisthesis of L4 on L5 is unchanged. Pronounced right degenerative facet arthropathy and right posterior ligamentum flavum hypertrophy are unchanged. Moderately pronounced left degenerative facet hypertrophy. Pronounced central canal stenosis with an AP canal diameter of 4.5 mm. Moderate stenosis of the left lateral recess. Mild stenosis of the right lateral recess. Mild to moderate stenosis of the right intervertebral neural foramen. Mild stenosis of the left intervertebral neural foramen. L5-S1: Normal endplates. Mild hypoplastic disc with normal disc hydration and morphology. Mild degenerative facet arthropathy of the hypoplastic facet joints. Mild central canal stenosis with an AP canal diameter of 9 mm. Normal bilateral lateral recesses. Normal bilateral intervertebral neural foramina. Normal visualized sacral ala. Normal visualized paraspinous soft tissue structures. MRI/Spine Lumbar (Routine) IMPRESSION: 1. Pronounced central canal stenosis at L4-L5 disc space level with an AP canal diameter of 4.5 mm, moderate stenosis of the left lateral recess, mild degenerative anterolisthesis of L4 on L5, pronounced right degenerative facet arthropathy, right posterior ligamentum flavum hypertrophy and moderately pronounced left degenerative facet arthropathy. This level is unchanged. 2. Pronounced central canal stenosis at L3-L4 disc space level with an AP canal diameter of 5 mm, moderate stenosis of the bilateral lateral recesses, mild to moderate stenosis of the right intervertebral neural foramen, pronounced bilateral degenerative facet arthropathy and mild degenerative anterolisthesis of L3 on L4. This level is unchanged. 3. Mild central canal stenosis at the L2-L3 disc space level with an AP canal diameter of 10 mm and small posterior bulging annulus. 4. No MRI evidence of lumbar extruded disc fragment. 5. No significant interval change when compared to 01/08/2022. Electronically Signed: Emeterio Chinchilla MD at 13:50 EST ,
--- NOTE | 2022-09-14 14:47 | DS.PCM_ITS ---
Providers Date of Admission: 09/12/22 Date of Discharge: 09/14/22 Primary Care Physician: Dr. Desmond Riojas MD Reason For Visit: CVA Diagnosis Discharge Diagnosis (1) Right leg weakness: Status: Acute Code(s): R29.898 - Other symptoms and signs involving the musculoskeletal system (2) Paresthesia of right leg: Status: Acute Code(s): R20.2 - Paresthesia of skin Plan Patient is a 72-year-old lady with history of hypercoagulable state factor V Leyden mutation with subsequent VTE, paroxysmal A. fib on Eliquis who presented with numbness and subjective weakness involving the right lower extremity. There was a concern for possible CVA admitted to monitored bed for subsequent eval and management 1. Right lower extremity paresthesias and subjective weakness ? With possible concern for acute CVA. Admitted to a monitored bed every 4 neurochecks ordered. As part of patient management ordered MRI of the brain as well as 2D echo -09/14/2022; Patient right lower extremity numbness resolved however she still complains of some subjective weakness. Scheduled to undergo MRI of the brain. Also added MRI of the lumbosacral spine. MRI of the brain was negative for acute CVA. MRI of the lumbar spine however did show evidence of spinal stenosis. Evidence of spinal stenosis results are as below. Patient was r eferred to Dr. Pacheco with back surgery 1.? Pronounced central canal stenosis at L4-L5 disc space level with an AP canal diameter of 4.5 mm, moderate stenosis of the left lateral recess, mild degenerative anterolisthesis of L4 on L5, pronounced right degenerative facet arthropathy, right posterior ligamentum flavum hypertrophy and moderately pronounced left degenerative facet arthropathy. This level is unchanged. ? 2.? Pronounced central canal stenosis at L3-L4 disc space level with an AP canal diameter of 5 mm, moderate stenosis of the bilateral lateral recesses, mild to moderate stenosis of the right intervertebral neural foramen, pronounced bilateral degenerative facet arthropathy and mild degenerative anterolisthesis of L3 on L4. This level is unchanged. 3.? Mild central canal stenosis at the L2-L3 disc space level with an AP canal diameter of 10 mm and small posterior bulging annulus. ? 4.? No MRI evidence of lumbar extruded disc fragment. ? 2. Incidental heterogeneous thyroid nodules ? Patient patient informed of the results instructed to follow-up with primary care physician for thyroid ultrasound to complete work-up 3. Hypercoagulable state with history of 35 Leyden mutation with subsequent VTE ? Patient is on Eliquis 4. Paroxysmal A. fib ? Rate controlled systemic anticoagulation with Eliquis did continue 5. Anemia - Secondary to chronic disorder monitoring H&H and transfuse if patient becomes symptomatic or hemoglobin falls below 7 6. Hypertension - Blood pressure controlled, home medications continued with dose adjustment as needed 7. Depression with anxiety ? Patient is on citalopram did continue 8. GERD ? On PPI continue 9. Class II obesity with BMI of 35.4 ? Weight loss advised 10. DVT prophylaxis ? Patient is on Eliquis Medications at Discharge Home Medications montelukast 10 mg tablet 10 mg PO DAILY Allergies 09/29/13 omeprazole 20 mg capsule,delayed release 20 mg PO DAILY GERD 09/29/13 amitriptyline 25 mg tablet 25 mg PO QHS Mood 10/25/19 galcanezumab-gnlm 120 mg/mL subcutaneous syringe (Emgality) 120 mg subcut QMONTH Migraines 10/25/19 multivitamin 1 tab PO DAILY Supplement 04/26/20 divalproex 500 mg tablet,extended release 24 hr (Depakote ER) 500 mg PO QHS headache 01/31/21 calcium carbonate 600 mg calcium (1,500 mg) tablet 600 mg PO DAILY supplement 11/24/21 ergocalciferol (vitamin D2) 1,250 mcg (50,000 unit) capsule 1,250 mcg PO DAILY supplement 11/24/21 ascorbic acid (vitamin C) 1,000 mg tablet,extended release (Vitamin C ER) 1,000 mg PO DAILY Supplement 06/01/22 acetaminophen 500 mg tablet 1,000 mg PO Q8H PRN PRN pain #1 TAB 06/12/22 apixaban 5 mg tablet 5 mg PO BID Blood thinner #60 tabs 06/12/22 citalopram 20 mg tablet 20 mg PO DAILY #30 tabs 06/12/22 losartan 50 mg tablet 50 mg PO DAILY #30 tabs 06/12/22 verapamil 240 mg 24 hr capsule,extended release 240 mg PO DAILY BP #30 caps 06/12/22 ferrous sulfate 325 mg (65 mg iron) tablet 325 mg PO DAILY supplement 09/12/22 Hospital Course Summary of Care Provided Minutes Spent on Discharge: 35 Physical Exam Narrative GENERAL: cooperative HEENT: Atraumatic; normocephalic EYES; Anicteric, Normal Conjunctiva NECK; supple, normal thyroid, RESPIRATORY: Diminished to auscultation CARDIOVASCULAR: Regular S1 S2, GI: soft, normoactive bowel sounds, : No Renal angle tenderness; EXTREMITIES: No edema, no clubbing, MUSCULOSKELETAL: no muscle wasting NEURO: Awake; no lateralizing signs. SKIN: No Rash PSYCH; Flat affect Weight / BMI Weight Weight: 88 kg Body Mass Index (BMI) 34.9 ABG / Lab / Microbiology Data Result Diagrams: 09/14/22 06:43 09/14/22 06:43 Laboratory: Laboratory Results - last 24 hr 09/14/22 06:43: WBC 3.3 L, RBC 4.25, Hgb 12.7, Hct 38.7, MCV 91.1, MCH 29.9, MCHC 32.8, RDW Std Deviation 44.4 H, RDW Coeff of Shannon 13.2, Plt Count 181, MPV 9.6, Immature Gran % (Auto) 0.300, Neut % (Auto) 49.5, Lymph % (Auto) 31.0, [place] % (Auto) 11.1 H, Eos % (Auto) 7.5 H, Baso % (Auto) 0.6, Absolute Neuts (auto) 1.6 L, Absolute Lymphs (auto) 1.03, Nucleated RBC % 0 09/14/22 06:43: Sodium 141, Potassium 3.9, Chloride 108 H, Carbon Dioxide 28.0, Anion Gap 5, BUN 14, Creatinine 0.83, Estim Creat Clear Calc 47.03, Est GFR (MDRD) Af Amer 87, Est GFR (MDRD) Non-Af 72, BUN/Creatinine Ratio 16.9, Glucose 93, Calcium 8.6, Magnesium 2.1 Radiography Diagnostic Testing: Radiology Impression Brain MRI 09/12/22 22:36 IMPRESSION: 1. No MRI evidence of acute or subacute ischemic infarct or acute intracranial abnormality. 2. Few small chronic white matter ischemic changes in both cerebral hemispheres. Electronically Signed: Emeterio Chinchilla MD at 13:37 EST , Lumbar Spine MRI 09/14/22 09:59 IMPRESSION: 1. Pronounced central canal stenosis at L4-L5 disc space level with an AP canal diameter of 4.5 mm, moderate stenosis of the left lateral recess, mild degenerative anterolisthesis of L4 on L5, pronounced right degenerative facet arthropathy, right posterior ligamentum flavum hypertrophy and moderately pronounced left degenerative facet arthropathy. This level is unchanged. 2. Pronounced central canal stenosis at L3-L4 disc space level with an AP canal diameter of 5 mm, moderate stenosis of the bilateral lateral recesses, mild to moderate stenosis of the right intervertebral neural foramen, pronounced bilateral degenerative facet arthropathy and mild degenerative anterolisthesis of L3 on L4. This level is unchanged. 3. Mild central canal stenosis at the L2-L3 disc space level with an AP canal diameter of 10 mm and small posterior bulging annulus. 4. No MRI evidence of lumbar extruded disc fragment. 5. No significant interval change when compared to 01/08/2022. Electronically Signed: Emeterio Chinchilla MD at 13:50 EST , D/C Instructions Discharge Diet: No restrictions Discharge Activity: Return to Normal Activity Call your doctor if you observe: Fever of 101 or Higher, Shortness of breath, Fainting spells and Chest pain Meaningful Use Info Meaningful Use Diagnoses (Choose all that apply): None applicable Discharge Plan Admission Admit Date/Time: 09/12/22 19:48 Attending Provider: Giuliano Will Primary Care Provider: Desmond Riojas [employer] Providers: Margot Ribeiro Discharge Orders/Prescriptions Prescriptions: Continued amitriptyline 25 mg tablet 25 mg PO QHS Emgality Syringe 120 mg/mL syringe 120 mg SC QMONTH multivitamin Tablet 1 tab PO DAILY calcium carbonate 600 mg calcium (1,500 mg) tablet 600 mg PO DAILY ergocalciferol (vitamin D2) 1,250 mcg (50,000 unit) capsule 1,250 mcg PO DAILY omeprazole 20 MG capsule 20 mg PO DAILY montelukast 10 MG tablet 10 mg PO DAILY divalproex [Depakote ER] 500 mg Tablet Extended Release 24 Hr 500 mg PO QHS Vitamin C 1,000 mg Tablet Extended Release 1,000 mg PO DAILY Rx Instructions: Take with Iron supplement citalopram 20 mg Tablet 20 mg PO DAILY Qty: 30 0RF losartan 50 mg Tablet 50 mg PO DAILY Qty: 30 0RF acetaminophen 500 mg tablet 1,000 mg PO Q8H PRN PRN (Reason: pain) Qty: 1 0RF Rx Instructions: 2 tabs every 8 hours as needed for pain. verapamil 240 MG capsule,ext rel. pellets 24 hr 240 mg PO DAILY Qty: 30 0RF apixaban 5 mg tablet 5 mg PO BID Qty: 60 0RF Rx Instructions: 1 tab every 12 H ferrous sulfate 325 mg (65 mg iron) Tablet 325 mg PO DAILY Referrals / Follow Up: Jack Pacheco DO [Med Staff - Active Staff] - Within 2 Weeks Desmond Riojas Chi, MD [Primary Care Provider] - Disposition Disposition (needs filled in before D/C Order can be placed): Home, Self Care Charges/Coding Visit Charges Inpatient E&M: 15636 Disch Hosp
== END 2022-09-14 15:57 | disposition home or self-care (01) | DRG 552 ==
LOC: ED 19:53 → PCU 21:40
PROVIDERS: Admitting Provider Family Medicine; Emergency Provider Emergency Medicine; PCP Family Medicine Geriatric Medicine; Visit Provider Internal Medicine
DX: M43.16 Spondylolisthesis, lumbar region (principal); D68.51 Activated protein C resistance; D63.1 Anemia in chronic kidney disease; I48.0 Paroxysmal atrial fibrillation; G43.709 Chronic migraine without aura, not intractable, without status migrainosus; N18.30 Chronic kidney disease, stage 3 unspecified; M46.96 Unspecified inflammatory spondylopathy, lumbar region; M48.061 Spinal stenosis, lumbar region without neurogenic claudication; G47.33 Obstructive sleep apnea (adult) (pediatric); I12.9 Hypertensive chronic kidney disease with stage 1 through stage 4 chronic kidney disease, or unspecified chronic kidney disease; E04.1 Nontoxic single thyroid nodule; F41.9 Anxiety disorder, unspecified; K21.9 Gastro-esophageal reflux disease without esophagitis; J30.9 Allergic rhinitis, unspecified; E78.00 Pure hypercholesterolemia, unspecified; F32.A Depression, unspecified; E66.9 Obesity, unspecified; Z66 Do not resuscitate; Z68.35 Body mass index [BMI] 35.0-35.9, adult; Z96.642 Presence of left artificial hip joint; Z79.01 Long term (current) use of anticoagulants; Z79.899 Other long term (current) drug therapy; Z86.718 Personal history of other venous thrombosis and embolism
CPT/HCPCS: 36415; 70450; 70496; 70498; 70551; 71045; 72148; 73502; 80048; 80053; 80061; 82962; 83036; 83735; 84439; 84443; 84484; 85025; 85610; 85730; 92523; 92610; 93005; 93306; 94762; 97110; 97112; 97162; 97166; 97802; 99251; 99285; J7030; Q9957; Q9967; A4216; G0463

== ENCOUNTER → 2022-09-25 | Outpatient (CLI) | payer MEDICARE, OTHER, SELFPAY ==
--- NOTE | 2022-09-25 14:12 | US_ITS ---
EXAM: US SOFT TISSUES HEAD AND NECK, THYROID CLINICAL INDICATION: NODULE TECHNIQUE: Guajardo scale and color doppler imaging was performed of the thyroid gland. This report was created using [employer] report generation technology. COMPARISON: None. FINDINGS: LEFT THYROID LOBE: Left thyroid lobe measures 4.0 x 1.8 x 2.1 cm with diffusely altered nodular echotexture. Largest nodule measuring 11 mm is mixed cystic and solid, isoechoic, [id number], smoothly marginated and contains no echogenic foci. TI-RADS points: 2. TI-RADS category: TR2. This nodule is not suspicious and no FNA or follow-up is necessary. The additional areas of nodularity within the left lobe may represent complex colloid cysts. RIGHT THYROID LOBE: Right thyroid lobe measures 4.8 x 1.5 x 2.5 cm. Multinodular echotexture again seen similar to the left lower lobe. A dominant 11 mm lesion within the right lobe has similar characteristics to the above-described dominant nodule within the left lobe. ISTHMUS: 5 mm in AP thickness. No thyroid nodules are present. US/Thyroid IMPRESSION: Solid and cystic multinodular appearance of both thyroid lobes which may be related to goiter. As above. Electronically Signed: Noam Flynn MD at 16:40 EST ,
== END | disposition home or self-care (01) ==
LOC: US 14:10
PROVIDERS: PCP Family Medicine Geriatric Medicine; Referring Provider Family Medicine Geriatric Medicine; Visit Provider Family Medicine Geriatric Medicine
DX: E04.1 Nontoxic single thyroid nodule (principal)
CPT/HCPCS: 76536

== ENCOUNTER → 2022-11-25 | Outpatient (CLI) | payer MEDICARE, OTHER, SELFPAY ==
[2022-11-25 13:08] LABS: Absolute Lymphocyte Count 0.99 X10^3/uL (0.83-4.51); Absolute Neutrophil Count 1.8 X10^3/uL (2.0-7.7); Basophil# 0.02 X10^3/uL; Basophil% 0.6 % (0-1); Eosinophil# 0.15 X10^3/uL; Eosinophils% 4.5 % (0-5); Hematocrit 42.1 % (37-47); Hemoglobin 13.7 g/dL (12.0-15.0); Lymphocyte # 0.99 X10^3/ul (0.83-4.51); Lymphocyte % 29.6 % (19-41); Mean Corp Hgb Conc 32.5 g/dL (32-36); Mean Corpuscular Hgb 30.6 pg (27.0-32.0); Mean Corpuscular Volume 94.2 fL (81-99); Mean Platelet Vol. 9.9 fl (6.2-12.0); Monocyte# 0.33 X10^3/uL; Monocyte% 9.9 % (0-10); NRBC Flagged by Analyzer 0 % (0-5); Neutrophil # 1.84 X10^3/uL (2.7-7.7); Neutrophil % 55.1 % (47-70); Platelet Count 224 K/mm3 (150-450); RBC Distribution Width CV 14.8 % (11.6-14.6); RBC Distribution Width SD 51.5 fl (35.1-43.9); Red Blood Count 4.47 M/mm3 (4.2-5.4); White Blood Count 3.3 K/mm3 (4.4-11.0)
[2022-11-25 13:22] LABS: Vitamin D,25 Hydroxy 51.1 ng/mL
[2022-11-25 13:32] LABS: ALB/GLOB Ratio 0.9 RATIO (0.9-2.4); AST(SGOT) 17 U/L (15-37); Alanine Aminotransfer ALT/SGPT 16 U/L (13-56); Albumin, Serum 3.3 g/dL (3.2-5.0); Alkaline Phosphatase 73 U/L (45-117); Anion Gap 7 (5-15); BUN 20 mg/dL (7-18); BUN/Creat Ratio 23.5 RATIO (10-20); Calcium,Total 9.1 mg/dL (8.5-10.1); Chloride 108 mmol/L (98-107); Creatinine, Serum 0.85 mg/dL (0.55-1.02); EST Glomerular Filtration Rate 69 mL/min (>60); Est Glom Filt Rate - Afr Amer 84 mL/min (>60); Globulin 3.5 g/dL (2.2-4.2); Glucose 81 mg/dL (74-106); Potassium 3.9 mmol/L (3.5-5.1); Protein, Total 6.8 g/dL (6.4-8.2); Sodium Level 143 mmol/L (136-145); Thyroid Stim Hormone (TSH) 1.04 uIU/mL (0.358-3.74)
== END | disposition home or self-care (01) ==
LOC: POLAB3 09:30
PROVIDERS: PCP Family Medicine Geriatric Medicine; Visit Provider Family Medicine Geriatric Medicine
DX: E55.9 Vitamin D deficiency, unspecified (principal); I10 Essential (primary) hypertension
CPT/HCPCS: 36415; 80053; 82306; 84443; 85025

== ENCOUNTER → 2023-01-19 | Outpatient (CLI) | payer MEDICARE, OTHER, SELFPAY ==
[2023-01-19 12:25] LABS: Amphetamine Urine VISTA NEGATIVE (<1000 ng/mL); Barbiturate Urine VISTA NEGATIVE (< 200 ng/mL); Benzodiazepine Urine VISTA NEGATIVE (< 200 ng/mL); Cocaine Urine VISTA NEGATIVE (< 300 ng/mL); Ecstacy Urine VISTA NEGATIVE (< 500 ng/mL); Methadone Urine VISTA NEGATIVE (< 300 ng/mL); PCP Urine VISTA NEGATIVE (< 25 ng/mL); THC Urine VISTA NEGATIVE (< 50 ng/mL); Vista UDS pH Range 5
== END | disposition home or self-care (01) ==
LOC: LAB 11:17
PROVIDERS: PCP Family Medicine Geriatric Medicine; Referring Provider Anesthesiology Pain Medicine; Visit Provider Anesthesiology Pain Medicine
DX: F11.20 Opioid dependence, uncomplicated (principal)
CPT/HCPCS: 80307

== ENCOUNTER 2023-02-24 11:30 | Outpatient (RCR) | payer MEDICARE, OTHER, SELFPAY ==
--- NOTE | 2022-11-23 14:45 | HP.PTEVAL ---
Patient's Visit Information DIONTE BRADFORD is a 72 year old F referred to Physical Therapy by Dr. Jack Pacheco, DO with a diagnosis of SPINAL STENOSIS ,LUMBAR REGION WITHOUT NEUROGENIC CLAUDICATION. Date of Evaluation: 11/23/22 Physical Therapist: Anant Hendricks, PT, Cert MDT, OCS - Visit Plan Frequency: 2x /Week Duration: 4 Weeks Plan: PT INTERVETIONS DLS ,POSTURAL EX'S ,RIGHT LEG STRENGTHENING -HIP ,LUMBAR FLEXION ,POSTURAL EX'S AND MODALTIES PRN - Subjective This 72 y/o female presents to physical therapy with lumbar pain with radicular symptoms in leg. Patient noticed leg symptoms after falling pain became and unable to stand or walk at [place]. Patient was r/o for CVA but was negative. Patient had x-rays hip -. Patient seen DR Pacheco due to stenosis lumbar recommended PT and use rollator. Prior to this patient trie3d epidural injections didn't help. Except paresthesia improved . Location of right lumbar pain. Aggravating factors walking/standing 5min ,unable to lifting ,bending. Alleviating factors sitting , rest. Patient sleeping is good. Coughing/sneezing -. Bowel/bladder -. No abnormal night pain . Patient has been using rollator due to falling and pain. Patient pain affects QOL and function . Patient able to bath and dress. Patient is able to cook. VOCATION: . SOCIAL: retired - Pain Right Back Pain Intensity (Out of 10): 6 Pain Intensity Range: 10 Right Lower Extremity Pain Intensity (Out of 10): 6 Pain Intensity Range: 10 - Objective POSTURE: forward posture. GAIT: Ambulated with mild forward posture with rollator. NEURO: c/o paresthesia/tingling right thigh ,reflexes L3-4,L4-5,L5-S1 1/3. PALPTION: unremarkable. SYMTRIES: align. MMT: (PEAK FORCE ) quads 12.3,hamstrings 13.2 ,hip flexion 2.3 right 5.2, left ankle 4/5. LUMBAR ROM: flexion mod loss ,extension mod loss ,side glides mod loss. FLEXABLITY: hamstrings mild tight - Special Tests L/S Slump test left side: Negative L/S Slump test right side: Negative L/S Left Straight Leg Raise: Negative L/S Right Straight Leg Raise: Negative - Balance/Special Test Scores Oswestry Low Back Score: 27 - Goals Goal 1:: Patient to be I with HEP for lumbar Goal Time Frame: 4-6 Weeks Goal 2:: Patient to demonstrate 50% improvement to improve walking/standing Goal Time Frame: 4-6 Weeks Goal 3:: Patient improve lumbar ROM for function of recovery to tie shoes Goal Time Frame: 4-6 Weeks Goal 4:: Patient to improve right leg strength peak force by 5 points to improve gait Goal Time Frame: 4-6 Weeks Goal 5:: Patient to improve back oswestry score by 5 points or > to improve QOL and function Goal Time Frame: 4-6 Weeks - Rehabilitation Potential Physical Therapy Diagnosis: This patient had pain in lumbar has symptoms in thigh and weakness right leg impairs walking /standing impairs ADLS due to stenosis thus benefit from skilled PT Rehabilitation Potential: Good - Anticipated Interventions Patient/Client Instruction: Educate patient on: Condition, Plan of Care For the Purpose of:: To decrease pain, To increase ROM, To improve muscle performance and motor function, To improve ability to perform ADL's, To increase tolerance to activity/condition/position, To improve ability of physical actions for home/community/work/leisure, To improve health of tissue, To decrease soft tissue restriction, To increase flexibility/ROM, To prevent re-injury Therapeutic Exercise to Include: Strength training, Endurance training, Body mechanics, Postural training, Flexibilty training, Dynamic Lumbar Stabilization For the Purpose of:: To decrease pain, To increase ROM, To improve muscle performance and motor function, To increase tolerance to activity/condition/position, To improve ability of physical actions for home/community/work/leisure, To improve gait and locomotor functions, To improve health of tissue, To decrease soft tissue restriction, To increase flexibility/ROM TENS: Yes IF ES: Yes Cryotherapy (ice pack, ice massage): Yes Thermo therapy (hot pack): Yes For the Purpose of:: To decrease pain, To increase ROM, To improve health of tissue, To decrease soft tissue restriction Thank you for the opportunity to evaluate your patient. For Medicare and Medicare HMO plans, please review the plan of care and approve it. It will need to be FAXED BACK to us at [phone] for Medicare purposes. For Medicare only, by signing this I certify the plan of care. Please let me know if there are questions or concerns regarding this plan of care. Physician Signature: Date:
--- NOTE | 2022-12-24 12:27 | HP.PTREVAL ---
Dr. Jack Pacheco, DO, It has been my pleasure to treat DIONTE BRADFORD over the last 9 visits for SPINAL STENOSIS ,LUMBAR REGION WITHOUT NEUROGENIC CLAUDICATION. Please see the progress note below for an update on the physical therapy plan of care! Subjective: Doing okay ,,ex's seems helping Objective/Function: POSTURE: forward posture. GAIT: Ambulated with mild forward posture with rollator. NEURO: c/o paresthesia/tingling right thigh ,reflexes L3-4,L4-5,L5-S1 1/3. PALPTION: unremarkable. SYMTRIES: align. MMT: (PEAK FORCE ) quads 14.3,hamstrings 15.2 ,hip flexion 12.3 right 10.2, left ankle 4/5. LUMBAR ROM: flexion mod loss ,extension mod loss ,side glides mod loss. FLEXABLITY: hamstrings mild tight Plan Plan: cont with POC. PT INTERVETIONS DLS ,POSTURAL EX'S ,RIGHT LEG STRENGTHENING -HIP ,LUMBAR FLEXION ,POSTURAL EX'S AND MODALTIES PRN Balance/Gait/Functional tests - Balance/Special Test Scores Oswestry Low Back Score: 24 Goals Goal 1:: Patient to be I with HEP for lumbar Goal Time Frame: 4-6 Weeks Goal Progress: Goal Met Goal 2:: Patient to demonstrate 80% improvement to improve walking/standing Goal Time Frame: 4-6 Weeks Goal Progress: Progressing Goal 3:: Patient improve lumbar ROM for function of recovery to tie shoes Goal Time Frame: 4-6 Weeks Goal Progress: Progressing Goal 4:: Patient to improve right leg strength peak force by 5 points to improve gait Goal Time Frame: 4-6 Weeks Goal Progress: Progressing Goal 5:: Patient to improve back oswestry score by 5 points or > to improve QOL and function Goal Time Frame: 4-6 Weeks Goal Progress: Progressing Anticipated Interventions Patient/Client Instruction: Educate patient on: Condition, Plan of Care For the Purpose of:: To decrease pain, To increase ROM, To improve muscle performance and motor function, To improve ability to perform ADL's, To increase tolerance to activity/condition/position, To improve ability of physical actions for home/community/work/leisure, To improve health of tissue, To decrease soft tissue restriction, To increase flexibility/ROM, To prevent re-injury Therapeutic Exercise to Include: Strength training, Endurance training, Body mechanics, Postural training, Flexibilty training, Dynamic Lumbar Stabilization For the Purpose of:: To decrease pain, To increase ROM, To improve muscle performance and motor function, To increase tolerance to activity/condition/position, To improve ability of physical actions for home/community/work/leisure, To improve gait and locomotor functions, To improve health of tissue, To decrease soft tissue restriction, To increase flexibility/ROM TENS: Yes IF ES: Yes Cryotherapy (ice pack, ice massage): Yes Thermo therapy (hot pack): Yes For the Purpose of:: To decrease pain, To increase ROM, To improve health of tissue, To decrease soft tissue restriction Please do not hesitate to contact me at [phone] by phone or if you have questions or concerns regarding this new plan of care! Sincerely, Anant Hendricks, PT, Cert MDT, OCS
--- NOTE | 2023-01-21 12:26 | HP.PTREVAL_ITS ---
Dr. Jack Pacheco, DO, It has been my pleasure to treat DIONTE BRADFORD over the last 16 visits for SPINAL STENOSIS ,LUMBAR REGION WITHOUT NEUROGENIC CLAUDICATION. Please see the progress note below for an update on the physical therapy plan of care! Subjective: Patient doing better pain is less Objective/Function: POSTURE: forward posture. GAIT: Ambulated with mild forward posture with rollator. NEURO: c/o paresthesia/tingling right thigh ,reflexes L3-4,L4-5,L5-S1 1/3. PALPTION: unremarkable. SYMTRIES: align. MMT: (PEAK FO RCE ) quads 38.8.3,right ,left 31.1 ,hamstrings 24.2 left ,right 26.2,hip flexion 12.3 right 16.2, left right 248 ankle 4/5. LUMBAR ROM: flexion mod loss ,extension mod loss ,side glides mod loss. FLEXABLITY: hamstrings mild tight Plan Plan: cont with POC. PT INTERVETIONS DLS ,POSTURAL EX'S ,RIGHT LEG STRENGTHENING -HIP ,LUMBAR FLEXION ,POSTURAL EX'S AND MODALTIES PRN Balance/Gait/Functional tests - Balance/Special Test Scores Oswestry Low Back Score: 20 Goals Goal 1:: Patient to be I with HEP for lumbar Goal Time Frame: 4-6 Weeks Goal Progress: Goal Met Goal 2:: Patient to demonstrate 90% improvement to improve walking/standing( new goal) Goal Time Frame: 4-6 Weeks Goal Progress: Progressing Goal 3:: Patient improve lumbar ROM for function of recovery to tie shoes Goal Time Frame: 4-6 Weeks Goal Progress: Progressing Goal 4:: Patient to improve right leg strength peak force by 5 points to improve gait ( new goals) Goal Time Frame: 4-6 Weeks Goal Progress: Progressing Goal 5:: Patient to improve back oswestry score by 5 points or > to improve QOL and function Goal Time Frame: 4-6 Weeks Goal Progress: Progressing Anticipated Interventions Patient/Client Instruction: Educate patient on: Condition, Plan of Care For the Purpose of:: To decrease pain, To increase ROM, To improve muscle performance and motor function, To improve ability to perform ADL's, To increase tolerance to activity/condition/position, To improve ability of physical actions for home/community/work/leisure, To improve health of tissue, To decrease soft tissue restriction, To increase flexibility/ROM, To prevent re-injury Therapeutic Exercise to Include: Strength training, Endurance training, Body mechanics, Postural training, Flexibilty training, Dynamic Lumbar Stabilization For the Purpose of:: To decrease pain, To increase ROM, To improve muscle performance and motor function, To increase tolerance to activity/condition/position, To improve ability of physical actions for home/community/work/leisure, To improve gait and locomotor functions, To improve health of tissue, To decrease soft tissue restriction, To increase flexibility/ROM TENS: Yes IF ES: Yes Cryotherapy (ice pack, ice massage): Yes Thermo therapy (hot pack): Yes For the Purpose of:: To decrease pain, To increase ROM, To improve health of tissue, To decrease soft tissue restriction Please do not hesitate to contact me at [phone] by phone or if you have questions or concerns regarding this new plan of care! Sincerely, Anant Hendricks, PT, Cert MDT, OCS
--- NOTE | 2023-02-24 12:09 | HP.PTDCSUM ---
It has been my pleasure to treat DIONTE BRADFORD referred by Dr. Jack Pacheco DO, with the diagnosis of SPINAL STENOSIS ,LUMBAR REGION WITHOUT NEUROGENIC CLAUDICATION for a total of 24 visit(s). Discharge Date: 02/24/23 Please see the following information for a summary of their discharge status. Subjective: Doing good Right Back Pain Intensity (Out of 10): 0 Right Lower Extremity Pain Intensity (Out of 10): 0 % Improvement: 95 Objective/Function: POSTURE: forward posture. GAIT: Ambulated with mild forward posture with rollator. NEURO: c/o paresthesia/tingling right thigh. PALPTION: unremarkable. . MMT: (PEAK FORCE ) quads 39.3,right ,left 33.1 ,hamstrings 24.2 left ,right 28.2,hip flexion 18.3 right 19.2, left right 28.2 ankle 4/5. LUMBAR ROM: flexion mod loss ,extension mod loss ,side glides mod loss. FLEXABLITY: hamstrings mild tight Goal 1:: Patient to be I with HEP for lumbar Goal Progress: Goal Met Goal 2:: Patient to demonstrate 90% improvement to improve walking/standing( new goal) Goal Progress: Goal Met Goal 3:: Patient improve lumbar ROM for function of recovery to tie shoes Goal Progress: Goal Met Goal 4:: Patient to improve right leg strength peak force by 5 points to improve gait ( new goals) Goal Progress: Goal Met Goal 5:: Patient to improve back oswestry score by 5 points or > to improve QOL and function Goal Progress: Goal Met Plan: cont with POC 2xweek/4weks. PT INTERVETIONS DLS ,POSTURAL EX'S ,RIGHT LEG STRENGTHENING -HIP ,LUMBAR FLEXION ,POSTURAL EX'S AND MODALTIES PRN Discharge Comments: hep If there are questions or concerns regarding this patient's physical therapy, please feel free to call me at [phone]. Thank you for the referral of this patient. Sincerely, Anant Hendricks, PT, Cert MDT, OCS Balance/Gait/Functional tests - Balance/Special Test Scores Oswestry Low Back Score: 11
== END 2023-02-24 19:00 | disposition home or self-care (01) ==
LOC: PT 11:30
PROVIDERS: PCP Family Medicine Geriatric Medicine; Referring Provider Orthopaedic Surgery; Visit Provider Orthopaedic Surgery
DX: M48.061 Spinal stenosis, lumbar region without neurogenic claudication (principal)
CPT/HCPCS: 97110; 97162

== ENCOUNTER → 2023-06-02 | Outpatient (CLI) | payer MEDICARE, OTHER, SELFPAY ==
[2023-06-02 11:04] LABS: Absolute Lymphocyte Count 1.03 X10^3/uL (0.83-4.51); Absolute Neutrophil Count 2.2 X10^3/uL (2.0-7.7); Basophil# 0.03 X10^3/uL; Basophil% 0.8 % (0-1); Eosinophil# 0.09 X10^3/uL; Eosinophils% 2.4 % (0-5); Lymphocyte # 1.03 X10^3/ul (0.83-4.51); Lymphocyte % 27.8 % (19-41); Mean Corp Hgb Conc 31.7 g/dL (32-36); Mean Corpuscular Hgb 29.9 pg (27.0-32.0); Mean Corpuscular Volume 94.3 fL (81-99); Monocyte# 0.39 X10^3/uL; Monocyte% 10.5 % (0-10); NRBC Flagged by Analyzer 0 % (0-5); Neutrophil # 2.16 X10^3/uL (2.7-7.7); Neutrophil % 58.2 % (47-70); Platelet Count 224 K/mm3 (150-450); RBC Distribution Width CV 13.2 % (11.6-14.6); RBC Distribution Width SD 45.5 fl (35.1-43.9); Red Blood Count 4.35 M/mm3 (4.2-5.4); White Blood Count 3.7 K/mm3 (4.4-11.0)
[2023-06-02 11:19] LABS: Vitamin D,25 Hydroxy 62.3 ng/mL
[2023-06-02 11:24] LABS: ALB/GLOB Ratio 0.9 RATIO (0.9-2.4); AST(SGOT) 11 U/L (15-37); Alanine Aminotransfer ALT/SGPT 9 U/L (13-56); Albumin, Serum 3.4 g/dL (3.2-5.0); Alkaline Phosphatase 78 U/L (45-117); Anion Gap 5 (5-15); BUN 14 mg/dL (7-18); BUN/Creat Ratio 16.3 RATIO (10-20); Calcium,Total 8.9 mg/dL (8.5-10.1); Chloride 106 mmol/L (98-107); Creatinine, Serum 0.86 mg/dL (0.55-1.02); EST Glomerular Filtration Rate 69 mL/min (>60); Est Glom Filt Rate - Afr Amer 83 mL/min (>60); Globulin 3.6 g/dL (2.2-4.2); Glucose 94 mg/dL (74-106); Potassium 3.8 mmol/L (3.5-5.1); Sodium Level 140 mmol/L (136-145); Thyroid Stim Hormone (TSH) 0.61 uIU/mL (0.358-3.74)
== END | disposition home or self-care (01) ==
LOC: POLAB3 10:14
PROVIDERS: PCP Family Medicine Geriatric Medicine; Visit Provider Family Medicine Geriatric Medicine
DX: I10 Essential (primary) hypertension (principal); E55.9 Vitamin D deficiency, unspecified
CPT/HCPCS: 36415; 80053; 82306; 84443; 85025

== ENCOUNTER → 2023-06-03 | Outpatient (CLI) | payer MEDICARE, OTHER, SELFPAY ==
--- NOTE | 2023-06-03 08:15 | BI_ITS ---
MAMMOGRAPHY - BILATERAL SCREENING REASON FOR EXAM: Female, 73 years old. Routine annual screening examination. PERTINENT HISTORY: Non-contributory. History of prior bilateral breast reduction surgery. TECHNIQUE: Digital bilateral breast sebastián (3D mammographic acquisition) in the CC and MLO projections. 2-D mediolateral oblique (MLO) and craniocaudad (CC) views of both breasts were obtained. CAD: Full Field Digital Mammography with Computer Added Detection was performed. COMPARISON: Comparison is made with prior study of June 03, 2021 and June 01, 2019. FINDINGS: Breast Composition: The breasts are almost entirely fatty. There are no dominant masses or suspicious calcifications. Stable deformity of the inferior central portion of the left breast. Stable benign-appearing bilateral axillary lymph nodes. Stable bilateral secretory calcifications. No other significant abnormalities are identified. There has been no significant change since the prior study. BI/SCRN MAMM (CAD)W/SEBASTIÁN BILAT IMPRESSION: Stable bilateral screening mammogram. Yearly follow-up mammogram recommended. (A) ASSESSMENT CATEGORY: BIRADS Category 2: Benign. A letter regarding these results will be sent to the patient by the facility within 30 days. Approximately 10% of breast cancers are not detected by mammography. A normal mammogram should not delay biopsy of a clinically suspicious abnormality. [id number] Electronically Signed: Aristides Colin MD at 9:52 EDT ,
== END | disposition home or self-care (01) ==
LOC: OPBI 08:13
PROVIDERS: PCP Family Medicine Geriatric Medicine; Referring Provider Family Medicine Geriatric Medicine; Visit Provider Family Medicine Geriatric Medicine
DX: Z12.31 Encounter for screening mammogram for malignant neoplasm of breast (principal)
CPT/HCPCS: 77063; 77067

== ENCOUNTER → 2023-11-30 | Outpatient (CLI) | payer MEDICARE, OTHER, SELFPAY ==
[2023-11-30 15:34] LABS: Absolute Lymphocyte Count 0.88 X10^3/uL (0.83-4.51); Absolute Neutrophil Count 2.2 X10^3/uL (2.0-7.7); Basophil# 0.03 X10^3/uL; Basophil% 0.8 % (0-1); Eosinophil# 0.23 X10^3/uL; Eosinophils% 6.1 % (0-5); Hematocrit 39.6 % (37-47); Hemoglobin 12.7 g/dL (12.0-15.0); Lymphocyte # 0.88 X10^3/ul (0.83-4.51); Lymphocyte % 23.3 % (19-41); Mean Corp Hgb Conc 32.1 g/dL (32-36); Mean Corpuscular Hgb 30.6 pg (27.0-32.0); Mean Corpuscular Volume 95.4 fL (81-99); Mean Platelet Vol. 10.3 fl (6.2-12.0); Monocyte# 0.39 X10^3/uL; Monocyte% 10.3 % (0-10); NRBC Flagged by Analyzer 0 % (0-5); Neutrophil # 2.24 X10^3/uL (2.7-7.7); Neutrophil % 59.2 % (47-70); Platelet Count 222 K/mm3 (150-450); RBC Distribution Width CV 13.5 % (11.6-14.6); RBC Distribution Width SD 47.7 fl (35.1-43.9); Red Blood Count 4.15 M/mm3 (4.2-5.4); White Blood Count 3.8 K/mm3 (4.4-11.0)
[2023-11-30 18:35] LABS: Vitamin D,25 Hydroxy 74.1 ng/mL
[2023-11-30 19:39] LABS: AST(SGOT) 13 U/L (15-37); Alanine Aminotransfer ALT/SGPT 11 U/L (13-56); Albumin, Serum 3.6 g/dL (3.2-5.0); Alkaline Phosphatase 67 U/L (45-117); Anion Gap 7 (5-15); BUN 16 mg/dL (7-18); BUN/Creat Ratio 16.6 RATIO (10-20); Calcium,Total 9.3 mg/dL (8.5-10.1); Chloride 105 mmol/L (98-107); Creatinine, Serum 0.96 mg/dL (0.55-1.02); EST Glomerular Filtration Rate 60 mL/min (>60); Est Glom Filt Rate - Afr Amer 73 mL/min (>60); Globulin 3.7 g/dL (2.2-4.2); Glucose 83 mg/dL (74-106); Protein, Total 7.3 g/dL (6.4-8.2); Sodium Level 139 mmol/L (136-145); Thyroid Stim Hormone (TSH) 1.12 uIU/mL (0.358-3.74)
== END | disposition home or self-care (01) ==
LOC: POLAB3 10:52
PROVIDERS: PCP Family Medicine Geriatric Medicine; Visit Provider Family Medicine Geriatric Medicine
DX: I10 Essential (primary) hypertension (principal); E55.9 Vitamin D deficiency, unspecified
CPT/HCPCS: 36415; 80053; 82306; 84443; 85025

== ENCOUNTER 2023-12-03 13:43 | Emergency (ER) | payer MEDICARE, OTHER, SELFPAY ==
[2023-12-03 13:48] VITALS: BP 116/64; PULSE 76; RESP 18; TEMP 36.1; O2SAT 100; BMI 32.7
--- NOTE | 2023-12-03 14:01 | CT_ITS ---
STUDY: CT FACIAL BONES WITHOUT CONTRAST REASON FOR EXAM: Female, 73 years old. Facial injury RADIATION DOSAGE (If Supplied By Facility): CTDIvol = ( 29.38 ) mGy, DLP = ( 510.73 ) mGycm TECHNIQUE: The patient was scanned in a multi detector CT scanner. Sagittal and coronal images were reconstructed. Individualized dose optimization techniques were used for this CT. COMPARISON: None. FINDINGS: Normal soft tissue structures. Normal orbital perkins and orbital contents. Normal nasal bones and anterior nasal spine. Normal facial bones. There is no demonstrated fracture. Mucosal thickening at the base of the right maxillary sinus. CT/Sinus/Facial Bone IMPRESSION: Mucosal thickening at the base of the right maxillary sinus. Electronically Signed: Aristides Colin MD at 14:48 EDT ,
--- NOTE | 2023-12-03 14:01 | CT_ITS ---
STUDY: CT CERVICAL SPINE WITHOUT CONTRAST REASON FOR EXAM: Female, 73 years old. Neck pain RADIATION DOSAGE (If Supplied By Facility): CTDIvol = ( 22.06 ) mGy, DLP = ( 453.02 ) mGycm TECHNIQUE: High resolution transaxial imaging was performed without contrast material. Sagittal and coronal images were reconstructed. Individualized dose optimization techniques were used for this CT. COMPARISON: None FINDINGS: Normal craniovertebral junction. Normal anterior atlantoaxial articulation. Normal odontoid process. There is straightening of the normal cervical lordosis. Normal vertebral bodies and posterior osseous elements. C2-3: Normal endplates. Normal disc height and morphology. Normal central canal and intervertebral neuroforamina. C3-4: Facet joint osteoarthritis and hypertrophy. Moderate degree of bilateral neural foraminal stenosis. C4-5: Facet joint osteoarthritis. Mild degree of bilateral neural foraminal stenosis. C5-6: Normal endplates. Normal disc height and morphology. Normal central canal and intervertebral neuroforamina. C6-7: Normal endplates. Normal disc height and morphology. Normal central canal and intervertebral neuroforamina. C7-T1: Normal endplates. Normal disc height and morphology. Normal central canal and intervertebral neuroforamina. The patient is status post right tympanoplasty. Heterogeneous enlargement of both lobes of the thyroid gland. CT/Spine Cervical without Contras IMPRESSION: Multilevel degenerative changes, as described above. Electronically Signed: Aristides Colin MD at 14:47 EDT ,
--- NOTE | 2023-12-03 14:01 | CT_ITS ---
STUDY: CT BRAIN WITHOUT CONTRAST REASON FOR EXAM: Female, 73 years old. Head injury due to a fall. RADIATION DOSAGE (If Supplied By Facility): CTDIvol = ( 44.99 ) mGy, DLP = ( 745.49 ) mGycm TECHNIQUE: Transaxial CT imaging of the brain was performed without administration of intravenous contrast material. Individualized dose optimization techniques were used for this CT. COMPARISON: Comparison is made with prior study dated September 12, 2022. FINDINGS: Normal soft tissue structures. Normal calvarium. There is mild cerebral atrophy with widening of the extra-axial spaces and ventricular dilatation. Normal white matter tracts of the cerebral hemispheres. Normal basal ganglia and thalami. Normal brainstem. Normal cerebellum. There is no intracranial hemorrhage. There are no findings of an acute ischemic infarction. Normal visualized paranasal sinuses. CT/Brain/Head without Contrast IMPRESSION: Chronic involutional changes of the brain. Electronically Signed: Aristides Colin MD at 14:44 EDT ,
--- NOTE | 2023-12-03 14:10 | EX.ED.DYSGE1 ---
HPI <LIZ Gastelum - Last Filed: 12/03/23 15:34> History of Present Illness Chief Complaint: Fall Narrative Narrative: Patient is a 73-year-old female with history of Parkinson's disease, factor V Leiden who is on Eliquis who presents to the emergency department after mechanical fall striking the left side of her head, left knee. Patient states she was going up stairs at a government building when she did not step high enough, hitting her left foot on the stair landing on her left knee and her face struck the door in front of her. She denies any LOC. She did need to get some help to stand up. Secondary to the patient being on Eliquis, patient is here for evaluation. [facility] <LIZ Gastelum - Last Filed: 12/03/23 15:34> [facility] Medical History (Updated 12/03/23 @ 15:33 by LIZ Gastelum) Allergic rhinitis Anemia Anterolisthesis Anxiety Atrial fibrillation Back pain Cardiology follow-up encounter Cataract Cellulitis of left lower leg CKD (chronic kidney disease) CKD (chronic kidney disease) CPAP (continuous positive airway pressure) dependence Deep vein thrombosis Depression Depression DVT (deep venous thrombosis) Essential hypertension Factor 5 Leiden mutation, heterozygous Fall Fall as cause of accidental injury at home as place of occurrence Fall due to ice or snow Family history of coronary artery disease Family history of CVA Family history of hypertension Gastric reflux Gastroesophageal reflux disease Head injury without concussion or intracranial hemorrhage Hematoma of left lower extremity High cholesterol History of atrial fibrillation History of DVT (deep vein thrombosis) History of edema History of pain when walking History of stress test Hx of echocardiogram Hyperlipidemia Hypertension Hypertension Injury of back Injury of head and neck Insomnia 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 lower leg with complication correction use of drug Long-term use of high-risk medication Malnourished Migraine Migraine headache Non-smoker Obesity, Class III, BMI 40-49.9 (morbid obesity) Obstructive sleep apnea Open wound Open wound of left lower leg with complication VALENTIN (obstructive sleep apnea) Osteoarthritis Osteopenia Paroxysmal atrial fibrillation Presbycusis of both ears Scoliosis of lumbar spine Segmental and somatic dysfunction of lumbar region Segmental and somatic dysfunction of pelvic region Segmental and somatic dysfunction of thoracic region Skin necrosis Syncope Traumatic ulcer of left lower extremity Vasovagal near syncope Vision problems Walker as ambulation aid Wears glasses Wears hearing aid Home Medications montelukast 10 mg tablet 10 mg PO DAILY Allergies 09/29/13 [History Last Taken 05/28/22] omeprazole 20 mg capsule,delayed release 20 mg PO DAILY GERD 09/29/13 [History Last Taken 05/28/22] amitriptyline 25 mg tablet 25 mg PO QHS Mood 10/25/19 [History Last Taken 05/27/22] galcanezumab-gnlm 120 mg/mL subcutaneous syringe (Emgality) 120 mg subcut QMONTH Migraines 10/25/19 [History Last Taken 05/23/22 08:00] multivitamin 1 tab PO DAILY Supplement 04/26/20 [History Last Taken 05/27/22] divalproex 500 mg tablet,extended release 24 hr (Depakote ER) 500 mg PO QHS headache 01/31/21 [History Last Taken 05/27/22] calcium carbonate 600 mg calcium (1,500 mg) tablet 600 mg PO DAILY supplement 11/24/21 [History Last Taken 05/28/22] ergocalciferol (vitamin D2) 1,250 mcg (50,000 unit) capsule 1,250 mcg PO DAILY supplement 11/24/21 [History Last Taken 05/27/22 07:00] ascorbic acid (vitamin C) 1,000 mg tablet,extended release (Vitamin C ER) 1,000 mg PO DAILY Supplement 06/01/22 [History Last Taken Unknown] acetaminophen 500 mg tablet 1,000 mg (2 x 500 mg) PO Q8H PRN PRN pain #1 TAB 06/12/22 [Rx Last Taken Unknown] apixaban 5 mg tablet 5 mg PO BID Blood thinner #60 tabs 06/12/22 [Rx Last Taken Unknown] citalopram 20 mg tablet 20 mg PO DAILY #30 tabs 06/12/22 [Rx Last Taken Unknown] losartan 50 mg tablet 50 mg PO DAILY #30 tabs 06/12/22 [Rx Last Taken Unknown] verapamil 240 mg 24 hr capsule,extended release 240 mg PO DAILY BP #30 caps 06/12/22 [Rx Last Taken Unknown] ferrous sulfate 325 mg (65 mg iron) tablet 325 mg PO DAILY supplement 09/12/22 [History Last Taken Unknown] polyethylene glycol 3350 17 gram oral powder packet 17 g PO DAILY 09/18/22 [History Last Taken Unknown] Allergy/AdvReac Type Severity Reaction Status Date / Time cefdinir Allergy Hives Verified 12/03/23 13:57 diphenhydramine HCl Allergy Hives Verified 12/03/23 13:57 [From Benadryl] Sulfa (Sulfonamide Allergy Hives Verified 12/03/23 13:57 Antibiotics) Family History Brother CAD (coronary artery disease) Mother CVA (cerebral vascular accident) CAD (coronary artery disease) Son Hypertension Daughter Hypertension Other Arthritis Cancer Diabetes Family history of CVA Family history of coronary artery disease Family history of hypertension Heart disease High cholesterol Kidney disease Thyroid disorder Surgical History History of bilateral knee replacement History of cholecystectomy History of incision and drainage History of left hip hemiarthroplasty History of total hysterectomy Hx of cataract extraction Social History household members: spouse housing: house number of children: 2 current occupational status: retired current occupational exposures/hazards: No pets and animals: No Smoking Status: Never smoker alcohol intake: never substance use type: does not use caffeine: Yes Type: tea what type of physical activity do you participate in: none seatbelt use: always do you feel safe at home: Yes additional social history: Does Not Take Aspirin Does Not Take Ibuprofen ROS <LIZ Gastelum - Last Filed: 12/03/23 15:34> [facility] Narrative Constitutional: Negative for fever, chills, weight loss, weakness Eyes: Negative for vision loss, vision change, double vision ENT: Negative for any sore throat, ear pain, congestion Cardiovascular: Negative for any chest pain, tightness, palpitations Respiratory: Negative for any cough, sputum production, hemoptysis, dyspnea, dyspnea on exertion, orthopnea Gastrointestinal: Negative for any abdominal pain, nausea, vomiting, diarrhea, constipation, blood in stool, blood in vomit : Negative for any urinary frequency, dysuria, retention, blood in urine Muscle skeletal: Negative for any neck pain, back pain. Positive for left knee pain Neurological: Negative for any syncope, dizziness. Positive for headache, facial pain Skin: Negative for any rashes, itching, abrasions, lacerations Psychiatric: Negative for any depression, anxiety, stress, suicidal ideation, homicidal ideation Hematologic: Negative for any excessive bruising, easy bleeding EXAM <LIZ Gastelum - Last Filed: 12/03/23 15:34> Physical Exam Narrative Exam Narrative: Vital signs reviewed. Patient alert and orient x 4. Patient is acting appropriate per visitor, patient is able to recount the event. HEET: Head normocephalic atraumatic, TMs clear bilaterally. Posterior pharynx is clear, moist mucous membranes. Nares clear bilaterally. Pupils are equal round reactive to light, negative for any hemotympanum, negative for any septal hematoma. Patient does have ecchymosis to the left forehead, swelling to the bridge of the nose, no active bleeding. Negative for any laceration Neck: Supple with no lymphadenopathy or tenderness. No signs of meningismus. Cardiac: Regular rate and rhythm no murmurs gallops or rubs, equal peripheral pulses bilaterally. Respiratory: Lungs clear to auscultation bilaterally. No chest tenderness. Abdomen: Soft, nontender, nondistended. No abdominal bruit or pulsatile masses. No hepatosplenomegaly Extremities: No peripheral edema, no signs of gross trauma or deformity. Active full range of motion of all extremities. Neuro: Cranial nerves II through XII intact, no focal neurological deficits. Neuroexam unremarkable. Skin: Clean dry and intact with no rash, purpura, petechiae, vesicles or pustules. Backs/flank: No CVA tenderness, no midline spinal tenderness, no deformity. Psych: Normal mood and affect. No SI, HI or acute psychosis. Const Vital Signs: 12/03/23 13:48 12/03/23 13:54 12/03/23 15:43 Temperature 97 F L Temperature Source Temporal Pulse Rate 76 66 Respiratory Rate 18 18 Respiratory Effort Normal Non-Labored Respiratory Depth Normal Respiratory Pattern Normal Blood Pressure 116/64 135/79 H Blood Pressure Mean 81 97 Pulse Ox 100 100 Oxygen Delivery Method Room Air Room Air 12/03/23 15:58 Temperature 98.3 F Temperature Source Pulse Rate 87 Respiratory Rate 16 Respiratory Effort Respiratory Depth Respiratory Pattern Blood Pressure 132/67 H Blood Pressure Mean 88 Pulse Ox 97 Oxygen Delivery Method Positive well nourished and well developed General Appearance ED: well developed <Dr. Vic Valles DO - Last Filed: 12/03/23 17:39> Physical Exam Const Vital Signs: 12/03/23 13:48 12/03/23 13:54 12/03/23 15:43 Temperature 97 F L Temperature Source Temporal Pulse Rate 76 66 Respiratory Rate 18 18 Respiratory Effort Normal Non-Labored Respiratory Depth Normal Respiratory Pattern Normal Blood Pressure 116/64 135/79 H Blood Pressure Mean 81 97 Pulse Ox 100 100 Oxygen Delivery Method Room Air Room Air 12/03/23 15:58 Temperature 98.3 F Temperature Source Pulse Rate 87 Respiratory Rate 16 Respiratory Effort Respiratory Depth Respiratory Pattern Blood Pressure 132/67 H Blood Pressure Mean 88 Pulse Ox 97 Oxygen Delivery Method [facility] <MARIZA GastelumC - Last Filed: 12/03/23 15:34> [facility] Radiography Diagnostic Testing: Clinical Impression(s) from Imaging Studies Brain CT 12/03/23 14:01 IMPRESSION: Chronic involutional changes of the brain. Electronically Signed: Aristides Colin MD at 14:44 EDT , Cervical Spine CT 12/03/23 14:01 IMPRESSION: Multilevel degenerative changes, as described above. Electronically Signed: Aristides Colin MD at 14:47 EDT , Facial/Sinus 12/03/23 14:01 IMPRESSION: Mucosal thickening at the base of the right maxillary sinus. Electronically Signed: Aristides Colin MD at 14:48 EDT , Knee X-Ray 12/03/23 14:20 IMPRESSION: Status post total knee replacement. There is good alignment. Soft tissue swelling and vascular calcification. Electronically Signed: Aristides Colin MD at 14:42 EDT , Treatment and Re-Evaluation :: Differential diagnosis includes however is not limited to: Left knee contusion, patella fracture, concussion, nasal bone fracture, hematoma, intracranial bleeding, skull fracture Patient appears to be in no obvious respiratory distress, patient appears to be in some distress secondary to pain to the left knee, headache. Patient will receive a CT scan of the brain cervical spine as well as the maxillofacial bones look for any fracture, intracranial bleeding. X-rays of the left knee will be completed. Patient be given Tylenol for pain. Patient be given ice, head of the bed elevated 30 degrees. All radiologic examinations were read, reviewed by the emergency department attending. From these reads, a plan of care will be put in place. Patient CT scan of the brain shows no acute process, chronic involutional changes of the brain. Patient CT of the cervical spine shows multilevel degenerative changes, no acute fracture. CT scan of the maxillofacial bones shows mucosal thickening at the base of the right maxillary sinus, no acute facial fracture. X-ray of the right knee shows status post total knee replacement, good alignment. No acute fracture, soft tissue swelling. At this time, patient will continue to ice and elevate, she will use her walker as well as her cane. Patient struck to ice and elevate. Patient continue take Tylenol. She was given return precaution to return for any worsening headache, nausea, vomiting, confusion. All questions answered, I spoke with the patient's son and daughter, they will watch her closely. Patient stable for discharge. <Dr. Vic Valles, DO - Last Filed: 12/03/23 17:39> [facility] Narrative Medical decision making narrative: I have personally performed a face to face assessment of the patient and have reviewed the JOSE Note. I performed a substantive portion of the visit including all aspects of the following. My carter findings include: History: Patient presents after a fall that occurred today. Patient states she tripped and fell forward. Patient states she fell into a door. Patient states she hit her face on the door. Patient also complains of pain in her left knee. Patient describes her pain as stabbing. Patient states it is worse with any movement. Patient states she feels weak after the fall but denies any paresthesias. Patient denies any loss of consciousness. Exam: Vital signs are stable. Patient is afebrile. Patient is in no acute distress. Pupils are equal, round, and reactive to light bilaterally. Extraocular muscles are intact. Conjunctiva is clear. Oral mucosa is pink and moist. There is ecchymosis over the nose and periorbital areas bilaterally. There is also some mild ecchymosis over the forehead. There is no bony crepitance or step-off noted. There is no cervical spine tenderness. There is good range of motion. Heart was regular rate and rhythm. Lungs are clear and equal bilaterally. Abdomen is soft. Bowel sounds are normal. There is no tenderness. Cranial nerves II through XII are intact. There are no focal motor or sensory deficits noted. Medical Decision Making: Differential diagnosis includes nasal fracture, facial fracture, basilar skull fracture, intracranial bleeding, and patella fracture. X-rays of the left knee will be obtained to assess for fracture. CT scan of the brain will be obtained to assess for intracranial bleeding. CT scan of the cervical spine will be obtained to assess for cervical spine fracture. CT scan of the facial bones will be obtained to assess for facial bone fracture. CT scan of the brain was obtained. There is no acute intracranial abnormality. There are chronic involutional changes noted. This was interpreted by the radiologist and was also independently reviewed by myself. CT scan of the cervical spine was obtained. There are multilevel degenerative changes. There is no acute fracture noted. There is no spondylolisthesis noted. This was interpreted by the radiologist and was also independently reviewed by myself. CT scan of the facial bones was obtained. There is some mucosal thickening at the base of the right maxillary sinus. There is no acute fracture noted. This was interpreted by the radiologist and was also independently reviewed by myself. X-rays of the left knee were obtained. There are 4 views. On my independent interpretation, there is no acute fracture noted. The knee prosthesis is in place. Radiologist also interpreted the x-ray and agrees. Patient was advised of her findings. Patient was instructed use ice to her knee and face. Patient was instructed to follow-up with her primary care physician in 5 to 7 days. Patient understood and was agreeable with the plan. All questions were answered. Radiography Diagnostic Testing: Clinical Impression(s) from Imaging Studies Brain CT 12/03/23 14:01 IMPRESSION: Chronic involutional changes of the brain. Electronically Signed: Aristides Colin MD at 14:44 EDT , Cervical Spine CT 12/03/23 14:01 IMPRESSION: Multilevel degenerative changes, as described above. Electronically Signed: Aristides Colin MD at 14:47 EDT , Facial/Sinus 12/03/23 14:01 IMPRESSION: Mucosal thickening at the base of the right maxillary sinus. Electronically Signed: Aristides Colin MD at 14:48 EDT , Knee X-Ray 12/03/23 14:20 IMPRESSION: Status post total knee replacement. There is good alignment. Soft tissue swelling and vascular calcification. Electronically Signed: Aristides Colin MD at 14:42 EDT , Discharge Plan Triage Chief Complaint: Fall ED Midlevel Provider: Luis Felipe Fitzgerald ED Provider: Vic Valles Dx/Rx/DC Orders Clinical Impression: Joint effusion of knee, Hematoma, Concussion, CHI (closed head injury), Fall Instructions: After a Concussion, ED Hematoma, ED Knee Effusion Prescriptions: No Action amitriptyline 25 mg tablet 25 mg PO QHS Emgality Syringe 120 mg/mL syringe 120 mg SC QMONTH multivitamin Tablet 1 tab PO DAILY calcium carbonate 600 mg calcium (1,500 mg) tablet 600 mg PO DAILY ergocalciferol (vitamin D2) 1,250 mcg (50,000 unit) capsule 1,250 mcg PO DAILY polyethylene glycol 3350 17 gram powder in packet 17 g PO DAILY omeprazole 20 MG capsule 20 mg PO DAILY montelukast 10 MG tablet 10 mg PO DAILY divalproex [Depakote ER] 500 mg Tablet Extended Release 24 Hr 500 mg PO QHS Vitamin C 1,000 mg Tablet Extended Release 1,000 mg PO DAILY Rx Instructions: Take with Iron supplement citalopram 20 mg Tablet 20 mg PO DAILY Qty: 30 0RF losartan 50 mg Tablet 50 mg PO DAILY Qty: 30 0RF acetaminophen 500 mg tablet 1,000 mg PO Q8H PRN PRN (Reason: pain) Qty: 1 0RF Rx Instructions: 2 tabs every 8 hours as needed for pain. verapamil 240 MG capsule,ext rel. pellets 24 hr 240 mg PO DAILY Qty: 30 0RF apixaban 5 mg tablet 5 mg PO BID Qty: 60 0RF Rx Instructions: 1 tab every 12 H ferrous sulfate 325 mg (65 mg iron) Tablet 325 mg PO DAILY Primary Care Provider: Desmond Riojas Chi Referrals: Desmond Riojas Chi, MD [Primary Care Provider] - Activity Restrictions/Additional Instructions: Ensure that you ice, elevate, use a walker. Disposition Disposition: Home, Self Care Discharge Date/Time: 12/03/23 16:00
--- NOTE | 2023-12-03 14:20 | RAD_ITS ---
STUDY: X-RAY - LEFT KNEE REASON FOR EXAM: Female, 73 years old. Pain following a fall. TECHNIQUE: 4 view(s) of the knee. COMPARISON: None. FINDINGS: Normal visualized distal femur. Normal visualized proximal tibia and fibula. Normal proximal tibiofibular articulation. The patient is status post total knee replacement. There is good alignment. Soft tissue swelling. Vascular calcification. RAD/Knee 4 or More Views IMPRESSION: Status post total knee replacement. There is good alignment. Soft tissue swelling and vascular calcification. Electronically Signed: Aristides Colin MD at 14:42 EDT ,
[2023-12-03] MEDS: Acetaminophen 500 MG Tablet 1000 MG PO (14:34)
[2023-12-03 15:43] VITALS: BP 135/79; PULSE 66; RESP 18; O2SAT 100
[2023-12-03 15:58] VITALS: BP 132/67; PULSE 87; RESP 16; TEMP 36.8; O2SAT 97
== END 2023-12-03 16:00 | disposition home or self-care (01) ==
PROVIDERS: Emergency Provider Emergency Medicine; PCP Family Medicine Geriatric Medicine; Visit Provider Emergency Medicine
DX: S06.0X0A Concussion without loss of consciousness, initial encounter (principal); I48.0 Paroxysmal atrial fibrillation; D68.51 Activated protein C resistance; W10.9XXA Fall (on) (from) unspecified stairs and steps, initial encounter; M25.462 Effusion, left knee; Y92.89 Other specified places as the place of occurrence of the external cause; Z79.01 Long term (current) use of anticoagulants; G47.33 Obstructive sleep apnea (adult) (pediatric); Z99.89 Dependence on other enabling machines and devices; I12.9 Hypertensive chronic kidney disease with stage 1 through stage 4 chronic kidney disease, or unspecified chronic kidney disease; N18.9 Chronic kidney disease, unspecified; E78.00 Pure hypercholesterolemia, unspecified; K21.9 Gastro-esophageal reflux disease without esophagitis; Z79.899 Other long term (current) drug therapy; F32.A Depression, unspecified; G43.909 Migraine, unspecified, not intractable, without status migrainosus; Z96.653 Presence of artificial knee joint, bilateral; Z90.49 Acquired absence of other specified parts of digestive tract; Z90.710 Acquired absence of both cervix and uterus; Z98.49 Cataract extraction status, unspecified eye; T14.8XXA Other injury of unspecified body region, initial encounter
CPT/HCPCS: 70450; 70486; 72125; 73564; 99282

== ENCOUNTER → 2023-12-16 | Outpatient (CLI) | payer MEDICARE, OTHER, SELFPAY ==
--- NOTE | 2023-12-16 15:22 | CT_ITS ---
STUDY: CT BRAIN WITHOUT CONTRAST REASON FOR EXAM: Female, 73 years old. History of fall. RADIATION DOSAGE (If Supplied By Facility): CTDIvol = ( 44.99 ) mGy, DLP = ( 762.36 ) mGycm TECHNIQUE: Transaxial CT imaging of the brain was performed without administration of intravenous contrast material. Individualized dose optimization techniques were used for this CT. COMPARISON: Comparison is made with prior study dated December 03, 2023. FINDINGS: Normal soft tissue structures. Normal calvarium. There is mild cerebral atrophy with widening of the extra-axial spaces and ventricular dilatation. Normal white matter tracts of the cerebral hemispheres. Normal basal ganglia and thalami. Normal brainstem. Normal cerebellum. There is no intracranial hemorrhage. There are no findings of an acute ischemic infarction. Normal visualized paranasal sinuses. CT/Brain/Head without Contrast IMPRESSION: Chronic involutional changes of the brain. Electronically Signed: Aristides Colin MD at 15:37 EDT ,
== END | disposition home or self-care (01) ==
LOC: CT 15:03
PROVIDERS: PCP Family Medicine Geriatric Medicine; Referring Provider Psychiatry & Neurology Neurology; Visit Provider Psychiatry & Neurology Neurology
DX: G20.A1 Parkinson's disease without dyskinesia, without mention of fluctuations (principal)
CPT/HCPCS: 70450

== ENCOUNTER 2023-12-17 19:35 | Observation (INO) | payer MEDICARE, OTHER, SELFPAY ==
[2023-12-17] VITALS (7 sets, daily range): BP systolic 114–161; BP diastolic 69–105; PULSE 82–111; RESP 16–24; TEMP 36.2–36.4; O2SAT 97–100; BMI 31.5
[2023-12-17] MEDS: 0.9% Normal Saline (500mL Bag) 500 ML 1000 ML IV (20:13)
--- NOTE | 2023-12-17 20:15 | EDS_ITS ---
HPI <Elvia Bazan RN - Last Filed: 12/17/23 23:26> History of Present Illness Chief Complaint: Nausea/Vomiting Informant: patient Onset/Context/Timing Onset: Days (12/13/2023) Context: Sudden Onset Timing: Continuous Current Severity: Moderate Maximum Severity: Severe Narrative Narrative: Patient is a 73-year-old female with past medical history significant for Parkinson's disease, paroxysmal A-fib, hypertension, recent concussion due to fall who presented via EMS with nausea and vomiting beginning 12/13/23. Patient fell 2 weeks ago hitting her head. She was seen in the ED. CT of the brain was negative at that time. Patient began with increased weakness in her legs and was seen by Dr. Riojas on 12/07/2023. She began with nausea on 12/13/2023 with 1 emesis per day since. However today she has vomited multiple times and unable to tolerate water. She reports dizziness with position changes. She denies diarrhea. However, she does endorse constipation with her last bowel movement on 12/14/23. She reports having normal bowel movements every 3 days. She does report urinary urgency. She is on Eliquis due to factor V Leiden. Within the last month she has decreased her Sinemet from 4 times a day to 3 times per day. She did contact Dr. Campbell's office this week and had a repeat CT yesterday which shows chronic involutional changes. She denies any recent falls. Denies any recent travel. Prior similar symptoms: No Recent Illness/Hospitalization: No PFSH <Elvia Bazan RN - Last Filed: 12/17/23 23:26> PFSH Medical History Allergic rhinitis Anemia Anterolisthesis Anxiety Atrial fibrillation Back pain Cardiology follow-up encounter Cataract Cellulitis of left lower leg CKD (chronic kidney disease) CKD (chronic kidney disease) CPAP (continuous positive airway pressure) dependence Deep vein thrombosis Depression Depression DVT (deep venous thrombosis) Essential hypertension Factor 5 Leiden mutation, heterozygous Fall Fall as cause of accidental injury at home as place of occurrence Fall due to ice or snow Family history of coronary artery disease Family history of CVA Family history of hypertension Gastric reflux Gastroesophageal reflux disease Head injury without concussion or intracranial hemorrhage Hematoma of left lower extremity High cholesterol History of atrial fibrillation History of DVT (deep vein thrombosis) History of edema History of pain when walking History of stress test Hx of echocardiogram Hyperlipidemia Hypertension Hypertension Injury of back Injury of head and neck Insomnia 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 lower leg 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 Long-term use of high-risk medication Malnourished Migraine Migraine headache Non-smoker Obesity, Class III, BMI 40-49.9 (morbid obesity) Obstructive sleep apnea Open wound Open wound of left lower leg with complication VALENTIN (obstructive sleep apnea) Osteoarthritis Osteopenia Paroxysmal atrial fibrillation Presbycusis of both ears Scoliosis of lumbar spine Segmental and somatic dysfunction of lumbar region Segmental and somatic dysfunction of pelvic region Segmental and somatic dysfunction of thoracic region Skin necrosis Syncope Traumatic ulcer of left lower extremity Vasovagal near syncope Vision problems Walker as ambulation aid Wears glasses Wears hearing aid Home Medications montelukast 10 mg tablet 10 mg PO DAILY Allergies 09/29/13 [History Last Taken 05/28/22] omeprazole 20 mg capsule,delayed release 20 mg PO DAILY GERD 09/29/13 [History Last Taken 05/28/22] amitriptyline 25 mg tablet 25 mg PO QHS Mood 10/25/19 [History Last Taken 05/27/22] galcanezumab-gnlm 120 mg/mL subcutaneous syringe (Emgality) 120 mg subcut QMONTH Migraines 10/25/19 [History Last Taken 05/23/22 08:00] multivitamin 1 tab PO DAILY Supplement 04/26/20 [History Last Taken 05/27/22] divalproex 500 mg tablet,extended release 24 hr (Depakote ER) 500 mg PO QHS headache 01/31/21 [History Last Taken 05/27/22] calcium carbonate 600 mg calcium (1,500 mg) tablet 600 mg PO DAILY supplement 11/24/21 [History Last Taken 05/28/22] ergocalciferol (vitamin D2) 1,250 mcg (50,000 unit) capsule 1,250 mcg PO DAILY supplement 11/24/21 [History Last Taken 05/27/22 07:00] ascorbic acid (vitamin C) 1,000 mg tablet,extended release (Vitamin C ER) 1,000 mg PO DAILY Supplement 06/01/22 [History Last Taken Unknown] acetaminophen 500 mg tablet 1,000 mg (2 x 500 mg) PO Q8H PRN PRN pain #1 TAB 06/12/22 [Rx Last Taken Unknown] apixaban 5 mg tablet 5 mg PO BID Blood thinner #60 tabs 06/12/22 [Rx Last Taken Unknown] citalopram 20 mg tablet 20 mg PO DAILY #30 tabs 06/12/22 [Rx Last Taken Unknown] verapamil 240 mg 24 hr capsule,extended release 240 mg PO DAILY BP #30 caps 06/12/22 [Rx Last Taken Unknown] ferrous sulfate 325 mg (65 mg iron) tablet 325 mg PO DAILY supplement 09/12/22 [History Last Taken Unknown] carbidopa 25 mg-levodopa 100 mg tablet 2 tab PO 4X/DAY 12/17/23 [History Last Taken Unknown] levocetirizine 5 mg tablet 5 mg PO DAILY 12/17/23 [History Last Taken Unknown] potassium chloride 20 mEq tablet,extended release(part/cryst) 20 meq PO DAILY 12/17/23 [History Last Taken Unknown] Allergy/AdvReac Type Severity Reaction Status Date / Time cefdinir Allergy Hives Verified 12/17/23 19:41 diphenhydramine HCl Allergy Hives Verified 12/17/23 19:41 [From Benadryl] Sulfa (Sulfonamide Allergy Hives Verified 12/17/23 19:41 Antibiotics) Family History Brother CAD (coronary artery disease) Mother CVA (cerebral vascular accident) CAD (coronary artery disease) Son Hypertension Daughter Hypertension Other Arthritis Cancer Diabetes Family history of CVA Family history of coronary artery disease Family history of hypertension Heart disease High cholesterol Kidney disease Thyroid disorder Surgical History History of bilateral knee replacement History of cholecystectomy History of incision and drainage History of left hip hemiarthroplasty History of total hysterectomy Hx of cataract extraction Social History household members: spouse housing: house number of children: 2 current occupational status: retired current occupational exposures/hazards: No pets and animals: No Smoking Status: Never smoker alcohol intake: never substance use type: does not use caffeine: Yes Type: tea what type of physical activity do you participate in: none seatbelt use: always do you feel safe at home: Yes additional social history: Does Not Take Aspirin Does Not Take Ibuprofen ROS <Elvia Bazan RN - Last Filed: 12/17/23 23:26> ROS ED Constitutional Constitutional ED: Denies chills, fever(s) or sweats Eyes Eyes: Denies change in vision ENT ENT ED: Denies ear pain, rhinorrhea or sore throat Cardiovascular Cardiovascular: Denies chest pain, orthopnea, palpitations or racing heartbeat Respiratory/Chest Respiratory/Chest: Denies cough, dyspnea or orthopnea Gastrointestinal Gastrointestinal: Reports nausea and vomiting; Denies abdominal pain, constipation or diarrhea Genitourinary Genitourinary ED: Reports other Details: urgency ; Denies dysuria or hematuria Musculoskeletal Musculoskeletal: Denies arthralgias or myalgias Integumentary Denies abscess, Abrasions or rash Neurologic Neurologic: Reports weakness; Denies headache(s) or paresthesias Psychiatric Psychiatric: Reports anxiety and depression Hematologic/Lymphatic Hematologic/Lymphatic: Reports systems reviewed and no addt'l complaints, except as documented EXAM <Elvia Bazan RN - Last Filed: 12/17/23 23:26> Physical Exam Narrative Exam Narrative: Patient awake, alert, ill-appearing, cooperative Const Vital Signs: 12/17/23 19:37 12/17/23 21:36 12/17/23 22:42 Temperature 97.5 F L Temperature Source Temporal Pulse Rate 88 89 Pulse Rate [Lying] 88 Pulse Rate [Sitting (for 1 minute prior to obtaining)] 92 Pulse Rate [Standing (for 1 minute prior to obtaining)] 111 H Respiratory Rate 22 H 20 H Blood Pressure 136/72 H 114/76 Blood Pressure [Lying] 129/70 H Blood Pressure [Sitting (for 1 minute prior to obtaining)] 131/75 H Blood Pressure [Standing (for 1 minute prior to obtaining)] 161/69 H Blood Pressure Mean 93 88 Blood Pressure Mean [Lying] 89 Blood Pressure Mean [Sitting (for 1 minute prior to obtaining)] 93 Blood Pressure Mean [Standing (for 1 minute prior to obtaining)] 99 Pulse Ox 100 99 Oxygen Delivery Method Room Air Room Air 12/17/23 23:00 12/17/23 22:00 12/17/23 22:30 Temperature Temperature Source Pulse Rate 90 85 86 Pulse Rate [Lying] Pulse Rate [Sitting (for 1 minute prior to obtaining)] Pulse Rate [Standing (for 1 minute prior to obtaining)] Respiratory Rate 24 H 17 16 Blood Pressure 134/73 H 123/105 H 132/71 H Blood Pressure [Lying] Blood Pressure [Sitting (for 1 minute prior to obtaining)] Blood Pressure [Standing (for 1 minute prior to obtaining)] Blood Pressure Mean 93 112 88 Blood Pressure Mean [Lying] Blood Pressure Mean [Sitting (for 1 minute prior to obtaining)] Blood Pressure Mean [Standing (for 1 minute prior to obtaining)] Pulse Ox 100 100 100 Oxygen Delivery Method Room Air 12/17/23 23:00 12/17/23 23:22 Temperature 97.2 F L Temperature Source Pulse Rate 89 82 Pulse Rate [Lying] Pulse Rate [Sitting (for 1 minute prior to obtaining)] Pulse Rate [Standing (for 1 minute prior to obtaining)] Respiratory Rate 20 H 16 Blood Pressure 134/73 H 130/75 H Blood Pressure [Lying] Blood Pressure [Sitting (for 1 minute prior to obtaining)] Blood Pressure [Standing (for 1 minute prior to obtaining)] Blood Pressure Mean 91 93 Blood Pressure Mean [Lying] Blood Pressure Mean [Sitting (for 1 minute prior to obtaining)] Blood Pressure Mean [Standing (for 1 minute prior to obtaining)] Pulse Ox 100 97 Oxygen Delivery Method Positive well nourished and well developed General Appearance ED: well developed HEENT Reports dry mucous membranes Mouth ED: Yes dry mucous membranes Mouth: dry mucous membranes Eyes PERRL and EOMs intact bilaterally Neck no lymphadenopathy, supple and no JVD Chest Wall inspection of chest normal and palpation of chest normal Resp normal respiratory effort and clear to auscultation bilaterally Auscultation: Negative for rales, rhonchi, wheezes or diminished lung sounds Cardio regular rate, regular rhythm, S1 normal heart sound and S2 normal heart sound GI normal to inspection, nondistended, normoactive bowel sounds and non-tender Auscultation: normoactive bowel sounds Palpation: soft Narrative: Patient reports urinary urgency. Denies dysuria and hematuria. Back/Spine no CVA tenderness Extremity normal to inspection Extremity Narrative: Mild bilateral lower extremity edema General Extremety ED: Yes edema General Extremity: edema Neuro oriented x3 Neuro Narrative: Hand grasp and pedal pushes weak bilaterally. Sensation intact. Sensorium / Orientation: alert Motor Exam: general weakness Psych Psych Narrative: Patient appears very anxious, tachypneic. Mood & Affect: anxious Skin no rashes or lesions noted, no wounds and skin turgor normal Skin Narrative: Resolving ecchymotic area noted to left forehead. <Dr. Jared Green MD - Last Filed: 12/17/23 23:25> Physical Exam Const Vital Signs: 12/17/23 19:37 12/17/23 21:36 12/17/23 22:42 Temperature 97.5 F L Temperature Source Temporal Pulse Rate 88 89 Pulse Rate [Lying] 88 Pulse Rate [Sitting (for 1 minute prior to obtaining)] 92 Pulse Rate [Standing (for 1 minute prior to obtaining)] 111 H Respiratory Rate 22 H 20 H Blood Pressure 136/72 H 114/76 Blood Pressure [Lying] 129/70 H Blood Pressure [Sitting (for 1 minute prior to obtaining)] 131/75 H Blood Pressure [Standing (for 1 minute prior to obtaining)] 161/69 H Blood Pressure Mean 93 88 Blood Pressure Mean [Lying] 89 Blood Pressure Mean [Sitting (for 1 minute prior to obtaining)] 93 Blood Pressure Mean [Standing (for 1 minute prior to obtaining)] 99 Pulse Ox 100 99 Oxygen Delivery Method Room Air Room Air 12/17/23 23:00 12/17/23 22:00 12/17/23 22:30 Temperature Temperature Source Pulse Rate 90 85 86 Pulse Rate [Lying] Pulse Rate [Sitting (for 1 minute prior to obtaining)] Pulse Rate [Standing (for 1 minute prior to obtaining)] Respiratory Rate 24 H 17 16 Blood Pressure 134/73 H 123/105 H 132/71 H Blood Pressure [Lying] Blood Pressure [Sitting (for 1 minute prior to obtaining)] Blood Pressure [Standing (for 1 minute prior to obtaining)] Blood Pressure Mean 93 112 88 Blood Pressure Mean [Lying] Blood Pressure Mean [Sitting (for 1 minute prior to obtaining)] Blood Pressure Mean [Standing (for 1 minute prior to obtaining)] Pulse Ox 100 100 100 Oxygen Delivery Method Room Air 12/17/23 23:00 12/17/23 23:22 Temperature 97.2 F L Temperature Source Pulse Rate 89 82 Pulse Rate [Lying] Pulse Rate [Sitting (for 1 minute prior to obtaining)] Pulse Rate [Standing (for 1 minute prior to obtaining)] Respiratory Rate 20 H 16 Blood Pressure 134/73 H 130/75 H Blood Pressure [Lying] Blood Pressure [Sitting (for 1 minute prior to obtaining)] Blood Pressure [Standing (for 1 minute prior to obtaining)] Blood Pressure Mean 91 93 Blood Pressure Mean [Lying] Blood Pressure Mean [Sitting (for 1 minute prior to obtaining)] Blood Pressure Mean [Standing (for 1 minute prior to obtaining)] Pulse Ox 100 97 Oxygen Delivery Method [facility] <Elvia Bazan RN - Last Filed: 12/17/23 23:26> [facility] Narrative Medical decision making narrative: IV line initiated. Labwork obtained to evaluate for leukocytosis, anemia, and electrolyte derangement. Urinalysis obtained via straight cath to evaluate for infection/hematuria. EKG obtained to evaluate for cardiac arrhythmia/ischemia. Zofran IV ordered for nausea and vomiting. Normal saline 500 mL bolus ordered due to concerns for dehydration as evidenced by dry mucous membranes and vomiting. I have personally performed a face to face assessment of the patient and have reviewed the JOSE Note. I performed a substantive portion of the visit including all aspects of the following. My carter findings include: History is 73-year-old female fell struck the left side of her head while walking into a building about 2 weeks ago. No LOC. She is on Eliquis due to factor V Leiden. She had a CAT scan evaluation that day that was negative. Had a CAT scan yesterday that was negative. Today she is having some nausea and vomiting. Shaking. But not seizure activity. Patient denies any headache currently. Exam is [73-year-old female vital signs are stable afebrile. Pulse ox 100% room air no signs hypoxia. H EENT exam pupils are reactive light. Left side of her forehead there is a bruise that is resolved. There is dry reactive light. Mouth unremarkable. Normal speech. Neck nontender. Lungs clear. Heart regular rhythm no murmur. Rate about 80. Chest wall and ribs nontender. Abdomen soft nontender. Nondistended normal bowel sounds no peritoneal signs. No right upper or right lower quadrant tenderness. No hernia or distention. No obstruction. Moving all 4 extremities. Nontender no deformity. Back nontender. Neurologically. She is awake. She is answering questions following commands. No focal motor deficits.] Medical Decision Making [patient with was treated with nausea by mouth by squad. She will be given IV Zofran. Screening labs. I do not think she needs repeat imaging because she has had 2 CAT scans already for this head injury. She denies any headache at this time. She is unremarkable neurologic exam. Some of this may be secondary to anxiety. She might also have a postconcussive syndrome.] Other additions or changes: [None] History & Record Review Discussion w/independent historian: Patient and Family Lab Data Labs: Laboratory Results - last 24 hr 12/17/23 12/17/23 19:45 20:50 WBC 5.0 RBC 4.45 Hgb 14.2 Hct 39.8 MCV 89.4 MCH 31.9 MCHC 35.7 RDW Std Deviation 41.8 RDW Coeff of Shannon 12.7 Plt Count 255 MPV 10.1 Immature Gran % (Auto) 0.200 Neut % (Auto) 64.1 Lymph % (Auto) 25.7 Charles % (Auto) 8.4 Eos % (Auto) 0.8 Baso % (Auto) 0.8 Absolute Neuts (auto) 3.2 Absolute Lymphs (auto) 1.29 Nucleated RBC % 0 Sodium 135 L Potassium 3.1 L Chloride 103 Carbon Dioxide 20.0 L Anion Gap 12 BUN 16 Creatinine 1.03 H Estim Creat Clear Calc 45.70 Est GFR (MDRD) Af Amer 67 Est GFR (MDRD) Non-Af 55 L BUN/Creatinine Ratio 15.5 Glucose 164 H Calcium 9.8 Total Bilirubin 0.80 AST 18 ALT < 6 L Alkaline Phosphatase 70 Total Protein 7.6 Albumin 4.1 Globulin 3.5 Albumin/Globulin Ratio 1.2 Urine Color Yellow Urine Clarity Clear Urine pH 8.0 Ur Specific [place] 1.015 Urine Protein Negative Urine Glucose (UA) Normal Urine Ketones 50 H Urine Occult Blood Negative Urine Nitrite Negative Urine Bilirubin Negative Urine Urobilinogen Normal Ur Leukocyte Esterase Negative Urine RBC 0 SEEN Urine WBC 0 SEEN Ur Squamous Epith Cells 0 SEEN Urine Bacteria 0 SEEN Urine Mucus 0 SEEN Differential Diagnosis Abdominal Pain: UTI Differential Diagnosis: Gastritis Management Discussion w/another healthcare provider: Other (Dr. Green, ED provider) Treatment and Re-Evaluation :: Lab work reviewed. CBC shows normal white count 5.0 with normal neutrophils 64.1%. Hemoglobin 14.2. Platelets 255. Chemistry shows sodium of 135, potassium 3.1, creatinine 1.03, and glucose 164. Urinalysis negative for UTI. Upon reevaluation, patient sitting in bed with daughter at bedside. Patient is awake and alert. She reports nausea has resolved. However, she does continue to feel anxious and tachypneic. Ativan 0.5 mg ordered p.o. After receiving Ativan, patient remains anxious and tearful. Discussed lab work with patient and daughter. Patient remains very concerned about why she is having these episodes of shaking and rapid breathing. Orthostatic vitals obtained which showed slightly increased heart rate. Nursing staff attempted to ambulate patient. They were unable to get patient to a standing position with assist x 2. Due to patient inability to ambulate, we will plan for admission. Dr. Grene spoke with hospitalist who will admit the patient. Patient and daughter agreeable with plan. <Dr. Jared Green MD - Last Filed: 12/17/23 23:25> MDM MDM Narrative Medical decision making narrative: IV line initiated. Labwork obtained to evaluate for leukocytosis, anemia, and electrolyte derangement. Urinalysis obtained via straight cath to evaluate for infection/hematuria. EKG obtained to evaluate for cardiac arrhythmia/ischemia. Zofran IV ordered for nausea and vomiting. Normal saline 500 mL bolus ordered due to concerns for dehydration as evidenced by dry mucous membranes and vomiting. I have personally performed a face to face assessment of the patient and have reviewed the JOSE Note. I performed a substantive portion of the visit including all aspects of the following. My carter findings include: History is 73-year-old female fell struck the left side of her head while walking into a building about 2 weeks ago. No LOC. She is on Eliquis due to factor V Leiden. She had a CAT scan evaluation that day that was negative. Had a CAT scan yesterday that was negative. Today she is having some nausea and vomiting. Shaking. But not seizure activity. Patient denies any headache currently. Exam is [73-year-old female vital signs are stable afebrile. Pulse ox 100% room air no signs hypoxia. H EENT exam pupils are reactive light. Left side of her forehead there is a bruise that is resolved. There is dry reactive light. Mouth unremarkable. Normal speech. Neck nontender. Lungs clear. Heart regular rhythm no murmur. Rate about 80. Chest wall and ribs nontender. Abdomen soft nontender. Nondistended normal bowel sounds no peritoneal signs. No right upper or right lower quadrant tenderness. No hernia or distention. No obstruction. Moving all 4 extremities. Nontender no deformity. Back nont lillian. Neurologically. She is awake. She is answering questions following commands. No focal motor deficits.] Medical Decision Making [patient with was treated with nausea by mouth by squad. She will be given IV Zofran. Screening labs. I do not think she needs repeat imaging because she has had 2 CAT scans already for this head injury. She denies any headache at this time. She is unremarkable neurologic exam. Some of this may be secondary to anxiety. She might also have a postconcussive syndrome.] Other additions or changes: [Multiple repeat exams. The patient definitely has anxiety. Nurses tried to ambulate. She was too weak to ambulate. I will speak to the hospitalist about admission. I do not think she needs repeat image she literally had a CAT scan yesterday.] Lab Data Attestation: I reviewed the patient's lab results. Lab results narrative: CBC shows a normal white count of 5. H&H of 14 and 39. Platelets 255. Electrolytes show a sodium 135. Potassium of 3.1. A gap of 12. BUN and creatinine is 16 and 1. Glucose 164. Liver enzymes are normal. Labs: Laboratory Results - last 24 hr 12/17/23 12/17/23 19:45 20:50 WBC 5.0 RBC 4.45 Hgb 14.2 Hct 39.8 MCV 89.4 MCH 31.9 MCHC 35.7 RDW Std Deviation 41.8 RDW Coeff of Shannon 12.7 Plt Count 255 MPV 10.1 Immature Gran % (Auto) 0.200 Neut % (Auto) 64.1 Lymph % (Auto) 25.7 Charles % (Auto) 8.4 Eos % (Auto) 0.8 Baso % (Auto) 0.8 Absolute Neuts (auto) 3.2 Absolute Lymphs (auto) 1.29 Nucleated RBC % 0 Sodium 135 L Potassium 3.1 L Chloride 103 Carbon Dioxide 20.0 L Anion Gap 12 BUN 16 Creatinine 1.03 H Estim Creat Clear Calc 45.70 Est GFR (MDRD) Af Amer 67 Est GFR (MDRD) Non-Af 55 L BUN/Creatinine Ratio 15.5 Glucose 164 H Calcium 9.8 Total Bilirubin 0.80 AST 18 ALT < 6 L Alkaline Phosphatase 70 Total Protein 7.6 Albumin 4.1 Globulin 3.5 Albumin/Globulin Ratio 1.2 Urine Color Yellow Urine Clarity Clear Urine pH 8.0 Ur Specific [place] 1.015 Urine Protein Negative Urine Glucose (UA) Normal Urine Ketones 50 H Urine Occult Blood Negative Urine Nitrite Negative Urine Bilirubin Negative Urine Urobilinogen Normal Ur Leukocyte Esterase Negative Urine RBC 0 SEEN Urine WBC 0 SEEN Ur Squamous Epith Cells 0 SEEN Urine Bacteria 0 SEEN Urine Mucus 0 SEEN Rhythm Strip Rhythm Strip: Sinus Rhythm Rate: 79 Ectopy: None EKG Initial EKG: Attestation: I personally reviewed and interpreted this EKG as follows: Interpretation: Sinus Rhythm and No Acute Injury Pattern Comments: Normal sinus rhythm rate of 79 no acute signs of [place] or ischemia. Discharge Plan Dx/Rx/DC Orders Clinical Impression: Concussion, Anxiety, Fall, History of Parkinson's disease, History of atrial fibrillation, Chronic anticoagulation, Unable to walk Disposition Disposition: Acute Care Hospital [facility]
[2023-12-17] MEDS: Ondansetron 4 MG/2 ML Vial IV (20:22)
--- NOTE | 2023-12-17 20:22 | EKG12_ITS ---
Test Reason : DYSRHYTHMIA Blood Pressure : / mmHG Vent. Rate : 079 BPM Atrial Rate : 079 BPM P-R Int : 170 ms QRS Dur : 108 ms QT Int : 442 ms P-R-T Axes : 015 024 109 degrees QTc Int : 506 ms Normal sinus rhythm Nonspecific ST and T wave abnormality Abnormal ECG Confirmed by Shimon Clemente ([id number]), international editorial producer YESSI OH ([id number]) on 12/20/2023 11:10:44 AM Referred By: Confirmed By:Shimon Clemente
[2023-12-17 20:25] LABS: Absolute Lymphocyte Count 1.29 X10^3/uL (0.83-4.51); Absolute Neutrophil Count 3.2 X10^3/uL (2.0-7.7); Basophil# 0.04 X10^3/uL; Basophil% 0.8 % (0-1); Eosinophil# 0.04 X10^3/uL; Eosinophils% 0.8 % (0-5); Hematocrit 39.8 % (37-47); Hemoglobin 14.2 g/dL (12.0-15.0); Lymphocyte # 1.29 X10^3/ul (0.83-4.51); Lymphocyte % 25.7 % (19-41); Mean Corp Hgb Conc 35.7 g/dL (32-36); Mean Corpuscular Hgb 31.9 pg (27.0-32.0); Mean Corpuscular Volume 89.4 fL (81-99); Mean Platelet Vol. 10.1 fl (6.2-12.0); Monocyte# 0.42 X10^3/uL; Monocyte% 8.4 % (0-10); NRBC Flagged by Analyzer 0 % (0-5); Neutrophil # 3.22 X10^3/uL (2.7-7.7); Neutrophil % 64.1 % (47-70); Platelet Count 255 K/mm3 (150-450); RBC Distribution Width CV 12.7 % (11.6-14.6); RBC Distribution Width SD 41.8 fl (35.1-43.9); Red Blood Count 4.45 M/mm3 (4.2-5.4)
[2023-12-17 20:43] LABS: ALB/GLOB Ratio 1.2 RATIO (0.9-2.4); AST(SGOT) 18 U/L (15-37); Alanine Aminotransfer ALT/SGPT < 6 U/L (13-56); Albumin, Serum 4.1 g/dL (3.2-5.0); Alkaline Phosphatase 70 U/L (45-117); Anion Gap 12 (5-15); BUN 16 mg/dL (7-18); BUN/Creat Ratio 15.5 RATIO (10-20); Calcium,Total 9.8 mg/dL (8.5-10.1); Chloride 103 mmol/L (98-107); Creatinine, Serum 1.03 mg/dL (0.55-1.02); EST Glomerular Filtration Rate 55 mL/min (>60); Est Glom Filt Rate - Afr Amer 67 mL/min (>60); Globulin 3.5 g/dL (2.2-4.2); Glucose 164 mg/dL (74-106); Potassium 3.1 mmol/L (3.5-5.1); Protein, Total 7.6 g/dL (6.4-8.2); Sodium Level 135 mmol/L (136-145)
[2023-12-17 20:56] LABS: Bacteria 0 SEEN /hpf (None Seen); Mucous, Urine 0 SEEN /hpf (<or=2+); Red Blood Cells-Urine 0 SEEN /hpf (0-5); Squamous Epithelial Cells - UA 0 SEEN /hpf (5-10); White Blood Cells 0 SEEN /hpf (0-5)
[2023-12-17 21:02] LABS: Color, Urine Yellow (Yellow); Glucose, Dipstick Normal (Normal); Ketone-Dipstick 50 mg/dl (Negative); Leukocyte Esterase-Dipstick Negative /ul (Negative); Nitrite-Dipstick Negative (Negative); Occult Blood-Urine Negative /ul (Negative); Protein-Dipstick Negative (Negative); Specific Gravity, Urine 1.015 (1.002-1.030); Urine Bilirubin Dipstick Negative (Negative); Urine Clarity Clear (Clear); Urine Urobilinogen Normal (Normal)
[2023-12-17] MEDS: LORazepam 0.5 MG Tablet PO (21:46)
--- NOTE | 2023-12-17 23:24 | HP.PCM.HOS_ITS ---
[facility] General Date of Admission: 12/18/23 Date of Service: 12/17/23 Chief Complaint: Nausea, Vomiting, Generalized Weakness and Inability to Ambulate. [facility] Narrative DIONTE BRADFORD, is a 73 F with a past medical history of essential hypertension, hyperlipidemia, obesity; BMI 31.5 this admission, obstructive sleep apnea, Parkinson's disease; on Sinemet, history of CVA, paroxysmal atrial fibrillation, history of heterozygous Zozdxn-Z-Fqxzxi mutation; with previous DVT on Eliquis, chronic kidney disease; stage III, chronic anemia, migraine headaches; on Depakote and Emgality, history of syncope, scoliosis of lumbar spine, osteoart hritis; with chronic back pain and history of bilateral total knee replacement with left total hip replacement, history of cholecystectomy, depression, GERD, history of previous mechanical fall with cervical sprain and concussion (~2020) and recent fall approximately 2 weeks ago evaluated at this ER on December 03, 2023 with diagnosis of mechanical fall striking the left side of her head and left knee while she was going up the stairs at a 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 She reports increasing dizziness with changes in position accompanied by severe nausea causing her to vomit numerous times throughout the day. She states she is having a bowel movement every 3 days and she denies urinary frequency, urgency or dysuria. Yesterday she went to see her neurologist who ordered a repeat CT scan of the head which showed only chronic involutional changes and no bleeding or other acute pathologic findings. She also denies any other recent falls, recent illness or recent medication changes other than that her Sinemet has been decreased from 4 times a day down to 3 times a day. The ER physician today suspects that this patient has clinical evidence of postconcussive syndrome after a recent mechanical fall; with intractable nausea, vomiting and disequilibrium causing generalized weakness with ambulatory dysfunction in the setting of chronic Parkinson's disease compounded by the need for Eliquis to treat her Lrkcck-N-Pluvhr mutation. She also had laboratory evidence of hypokalemia of 3.1 mmol/L present on admission and an MRI of her brain will be obtained in the morning due to her persistent symptoms with multiple negative CT scans of the head. She was then admitted to the general medical floor under observation status for stay that is expected to be less than 48 hours. [facility] Medical History Allergic rhinitis Anemia Anterolisthesis Anxiety Atrial fibrillation Back pain Cardiology follow-up encounter Cataract Cellulitis of left lower leg CKD (chronic kidney disease) CKD (chronic kidney disease) CPAP (continuous positive airway pressure) dependence Deep vein thrombosis Depression Depression DVT (deep venous thrombosis) Essential hypertension Factor 5 Leiden mutation, heterozygous Fall Fall as cause of accidental injury at home as place of occurrence Fall due to ice or snow Family history of coronary artery disease Family history of CVA Family history of hypertension Gastric reflux Gastroesophageal reflux disease Head injury without concussion or intracranial hemorrhage Hematoma of left lower extremity High cholesterol History of atrial fibrillation History of DVT (deep vein thrombosis) History of edema History of pain when walking History of stress test Hx of echocardiogram Hyperlipidemia Hypertension Hypertension Injury of back Injury of head and neck Insomnia 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 lower leg with complication alf use of drug Long-term use of high-risk medication Malnourished Migraine Migraine headache Non-smoker Obesity, Class III, BMI 40-49.9 (morbid obesity) Obstructive sleep apnea Open wound Open wound of left lower leg with complication VALENTIN (obstructive sleep apnea) Osteoarthritis Osteopenia Paroxysmal atrial fibrillation Presbycusis of both ears Scoliosis of lumbar spine Segmental and somatic dysfunction of lumbar region Segmental and somatic dysfunction of pelvic region Segmental and somatic dysfunction of thoracic region Skin necrosis Syncope Traumatic ulcer of left lower extremity Vasovagal near syncope Vision problems Walker as ambulation aid Wears glasses Wears hearing aid Home Medications montelukast 10 mg tablet 10 mg PO DAILY Allergies 09/29/13 [History Last Taken 05/28/22] omeprazole 20 mg capsule,delayed release 20 mg PO DAILY GERD 09/29/13 [History Last Taken 05/28/22] amitriptyline 25 mg tablet 25 mg PO QHS Mood 10/25/19 [History Last Taken 05/27/22] galcanezumab-gnlm 120 mg/mL subcutaneous syringe (Emgality) 120 mg subcut QMONTH Migraines 10/25/19 [History Last Taken 05/23/22 08:00] multivitamin 1 tab PO DAILY Supplement 04/26/20 [History Last Taken 05/27/22] divalproex 500 mg tablet,extended release 24 hr (Depakote ER) 500 mg PO QHS headache 01/31/21 [History Last Taken 05/27/22] calcium carbonate 600 mg calcium (1,500 mg) tablet 600 mg PO DAILY supplement 11/24/21 [History Last Taken 05/28/22] ergocalciferol (vitamin D2) 1,250 mcg (50,000 unit) capsule 1,250 mcg PO DAILY supplement 11/24/21 [History Last Taken 05/27/22 07:00] ascorbic acid (vitamin C) 1,000 mg tablet,extended release (Vitamin C ER) 1,000 mg PO DAILY Supplement 06/01/22 [History Last Taken Unknown] acetaminophen 500 mg tablet 1,000 mg (2 x 500 mg) PO Q8H PRN PRN pain #1 TAB 06/12/22 [Rx Last Taken Unknown] apixaban 5 mg tablet 5 mg PO BID Blood thinner #60 tabs 06/12/22 [Rx Last Taken Unknown] citalopram 20 mg tablet 20 mg PO DAILY #30 tabs 06/12/22 [Rx Last Taken Unknown] verapamil 240 mg 24 hr capsule,extended release 240 mg PO DAILY BP #30 caps 06/12/22 [Rx Last Taken Unknown] ferrous sulfate 325 mg (65 mg iron) tablet 325 mg PO DAILY supplement 09/12/22 [History Last Taken Unknown] carbidopa 25 mg-levodopa 100 mg tablet 2 tab PO 4X/DAY 12/17/23 [History Last Taken Unknown] levocetirizine 5 mg tablet 5 mg PO DAILY 12/17/23 [History Last Taken Unknown] potassium chloride 20 mEq tablet,extended release(part/cryst) 20 meq PO DAILY 12/17/23 [History Last Taken Unknown] Allergy/AdvReac Type Severity Reaction Status Date / Time cefdinir Allergy Hives Verified 12/17/23 19:41 diphenhydramine HCl Allergy Hives Verified 12/17/23 19:41 [From Benadryl] Sulfa (Sulfonamide Allergy Hives Verified 12/17/23 19:41 Antibiotics) Family History Brother CAD (coronary artery disease) Mother CVA (cerebral vascular accident) CAD (coronary artery disease) Son Hypertension Daughter Hypertension Other Arthritis Cancer Diabetes Family history of CVA Family history of coronary artery disease Family history of hypertension Heart disease High cholesterol Kidney disease Thyroid disorder Surgical History History of bilateral knee replacement History of cholecystectomy History of incision and drainage History of left hip hemiarthroplasty History of total hysterectomy Hx of cataract extraction Social History household members: spouse housing: house number of children: 2 current occupational status: retired current occupational exposures/hazards: No pets and animals: No Smoking Status: Never smoker alcohol intake: never substance use type: does not use caffeine: Yes Type: tea what type of physical activity do you participate in: none seatbelt use: always do you feel safe at home: Yes additional social history: Does Not Take Aspirin Does Not Take Ibuprofen ROS ROS Narrative Review of systems: General: Patient denies fever or chills. HENT: Denies headache, denies stuffy nose, denies sore throat EYES: Denies changes in vision or discharge from eyes. Resp: Denies cough, denies shortness of breath Cardiac: Denies chest pain or palpitations GI: Patient admits to intractable nausea vomiting as per HPI but she denies abdominal pain, constipation or diarrhea. : Denies changes in urination Extremity: Denies swelling Musculoskeletal: Feels somewhat generally weak and unwell with inability to ambulate due to generalized weakness as per HPI. Neuro: Patient admits to dizziness made worse by head movement but she denies headache, paresthesias or other focal neurologic deficits. Heme: Denies any bleeding or bruising Skin: Denies rashes Psychiatric: Patient was notably anxious causing her to be treated with oral Ativan in the ER. Endocrine: No polyuria, polydipsia or polyphagia. The rest of the 14 point ROS was negative except for positives in HPI. Vital Signs Vital Signs Vital Signs: 12/17/23 19:37 12/17/23 21:36 12/17/23 22:42 Temperature 97.5 F L Temperature Source Temporal Pulse Rate 88 89 Pulse Rate [Lying] 88 Pulse Rate [Sitting (for 1 minute prior to obtaining)] 92 Pulse Rate [Standing (for 1 minute prior to obtaining)] 111 H Respiratory Rate 22 H 20 H Blood Pressure 136/72 H 114/76 Blood Pressure [Lying] 129/70 H Blood Pressure [Sitting (for 1 minute prior to obtaining)] 131/75 H Blood Pressure [Standing (for 1 minute prior to obtaining)] 161/69 H Blood Pressure Mean 93 88 Blood Pressure Mean [Lying] 89 Blood Pressure Mean [Sitting (for 1 minute prior to obtaining)] 93 Blood Pressure Mean [Standing (for 1 minute prior to obtaining)] 99 Pulse Ox 100 99 Oxygen Delivery Method Room Air Room Air 12/17/23 23:00 12/17/23 22:00 12/17/23 22:30 Temperature Temperature Source Pulse Rate 90 85 86 Pulse Rate [Lying] Pulse Rate [Sitting (for 1 minute prior to obtaining)] Pulse Rate [Standing (for 1 minute prior to obtaining)] Respiratory Rate 24 H 17 16 Blood Pressure 134/73 H 123/105 H 132/71 H Blood Pressure [Lying] Blood Pressure [Sitting (for 1 minute prior to obtaining)] Blood Pressure [Standing (for 1 minute prior to obtaining)] Blood Pressure Mean 93 112 88 Blood Pressure Mean [Lying] Blood Pressure Mean [Sitting (for 1 minute prior to obtaining)] Blood Pressure Mean [Standing (for 1 minute prior to obtaining)] Pulse Ox 100 100 100 Oxygen Delivery Method Room Air 12/17/23 23:00 12/17/23 23:22 Temperature 97.2 F L Temperature Source Pulse Rate 89 82 Pulse Rate [Lying] Pulse Rate [Sitting (for 1 minute prior to obtaining)] Pulse Rate [Standing (for 1 minute prior to obtaining)] Respiratory Rate 20 H 16 Blood Pressure 134/73 H 130/75 H Blood Pressure [Lying] Blood Pressure [Sitting (for 1 minute prior to obtaining)] Blood Pressure [Standing (for 1 minute prior to obtaining)] Blood Pressure Mean 91 93 Blood Pressure Mean [Lying] Blood Pressure Mean [Sitting (for 1 minute prior to obtaining)] Blood Pressure Mean [Standing (for 1 minute prior to obtaining)] Pulse Ox 100 97 Oxygen Delivery Method Weight Weight: 172 lb 6.424 oz Body Mass Index (BMI) 31.5 Physical Exam Const alert, oriented x3, average body habitus and well nourished Constitutional Narrative: Patient is notably anxious and is ill in appearance. General Appearance: cooperative HEENT normocephalic, head/scalp atraumatic and hearing grossly normal bilaterally HEENT Narrative: Mucous membranes dry. Eyes PERRL, EOMs intact bilaterally and conjunctivae normal Neck no lymphadenopathy and supple Resp normal respiratory effort, no retractions, no use of accessory muscles and clear to auscultation bilaterally Cardio regular rate and regular rhythm GI normal to inspection, nondistended, normoactive bowel sounds, soft to palpation, non-tender and non-distended Extremity normal to inspection and full ROM Skin Skin Narrative: Patient has mild bilateral lower extremity edema but no rash, jaundice or abscess. Neuro oriented x3, CN's II-XII intact bilaterally, moves all extremities and no focal motor deficits Sensorium / Orientation: awake, alert, oriented to person, oriented to place and oriented to time Speech: speech normal Psych Mood & Affect: anxious Results Medical Records Data Attestation: I reviewed the patient's medical records Lab / Micro Data Attestation: I reviewed the patient's lab results. 12/17/23 19:45 12/17/23 19:45 Labs: Laboratory Results - last 24 hr 12/17/23 19:45: WBC 5.0, RBC 4.45, Hgb 14.2, Hct 39.8, MCV 89.4, MCH 31.9, MCHC 35.7, RDW Std Deviation 41.8, RDW Coeff of Shannon 12.7, Plt Count 255, MPV 10.1, Immature Gran % (Auto) 0.200, Neut % (Auto) 64.1, Lymph % (Auto) 25.7, [place] % (Auto) 8.4, Eos % (Auto) 0.8, Baso % (Auto) 0.8, Absolute Neuts (auto) 3.2, Absolute Lymphs (auto) 1.29, Nucleated RBC % 0, Sodium 135 L, Potassium 3.1 L, Chloride 103, Carbon Dioxide 20.0 L, Anion Gap 12, BUN 16, Creatinine 1.03 H, Estim Creat Clear Calc 45.70, Est GFR (MDRD) Af Amer 67, Est GFR (MDRD) Non-Af 55 L, BUN/Creatinine Ratio 15.5, Glucose 164 H, Calcium 9.8, Total Bilirubin 0.80, AST 18, ALT < 6 L, Alkaline Phosphatase 70, Total Protein 7.6, Albumin 4.1, Globulin 3.5, Albumin/Globulin Ratio 1.2 12/17/23 20:50: Urine Color Yellow, Urine Clarity Clear, Urine pH 8.0, Ur Specific [place] 1.015, Urine Protein Negative, Urine Glucose (UA) Normal, Urine Ketones 50 H, Urine Occult Blood Negative, Urine Nitrite Negative, Urine Bilirubin Negative, Urine Urobilinogen Normal, Ur Leukocyte Esterase Negative, Urine RBC 0 SEEN, Urine WBC 0 SEEN, Ur Squamous Epith Cells 0 SEEN, Urine Bacteria 0 SEEN, Urine Mucus 0 SEEN Rhythm Strip Rhythm Strip: Sinus Rhythm Rate: 79 Ectopy: None Assessment & Plan Assessment/Plan (1) Postconcussion syndrome: (2) Generalized weakness: (3) Unable to walk: (4) History of Parkinson's disease: (5) Chronic anticoagulation: (6) Factor V Leiden mutation: PLAN: Plan 1. Postconcussion syndrome; with intractable nausea and vomiting triggered by dizziness made worse with movement in this elderly patient who also has a history of Parkinson's disease; on Sinemet and history of CVA - Admit to general medical floor under observation status. Give gentle IV fluid hydration along with as needed Zofran for nausea. Give Antivert 25 mg p.o. every 6 hours as needed for vertigo/dizziness. We will also place scopolamine patch with patient having severe persistent symptoms of GI upset and intermittent dizziness that are uncontrolled. Finally, we will check MRI of the brain due to her persistent neurologic symptoms with multiple unremarkable CT scans of the head. 2. Generalized weakness with ambulatory dysfunction in the setting of chronic Parkinson's disease complicating #1 - PT/OT and case management to consult and treat on rounds in the a.m. for further recommendations regarding possible ECF placement for subacute rehabilitation with help appreciated in advance. She states she is interested in potentially transitioning to the TCU here if possible. 3. 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 4. History of heterozygous Lowopd-O-Atxzjb mutation; with previous DVT on Eliquis compounding #1 - #3 - Continue Eliquis for now but this agent may have to be discontinued after propensity for falling is not corrected soon as the risks of severe head trauma while on full anticoagulation will outweigh any potential benefit. 5. History of scoliosis of lumbar spine, osteoarthritis; with chronic back pain and history of bilateral total knee replacement with Left total hip replacement adding to the pathology of #1 - #4 - Noted. All of these comorbidities add to p sharon's medical complexity and complicate prognosis. 6. Hypokalemia of 3.1 mmol/L present on admission - Give supplemental KCl and then recheck BMP in the a.m. to ensure improvement. 7. Migraine headaches; on Depakote and Emgality - Resume home regimen as previous. Check Depakote level. Patient denies active headaches at this time. 8. Essential hypertension - Continue home medications as previous plus give as needed IV hydralazine for systolic blood pressure greater than 160 mmHg. 9. Hyperlipidemia - Resume statin and check lipid profile. 10. Obesity; with BMI 31.5 this admission plus obstructive sleep apnea - Weight loss will be recommended. Check TSH. Continue nocturnal CPAP as previous. 11. Paroxysmal atrial fibrillation - Patient currently in normal sinus rhythm and on NOAC plus Verapamil which will be continued. 12. Chronic kidney disease; stage III - Noted. Gently volume resuscitate and recheck BMP daily to ensure continued stability. 13. Chronic anemia - Stable. 14. History of syncope - Noted. 15. History of cholecystectomy - Noted. 16. Depression - Resume home medications as previous plus give as needed Xanax for breakthrough symptoms. 17. GERD - Continue PPI. 18. DVT prophylaxis - Patient is already on Eliquis for #4 which will be continued. Total time: Approximately 85 minutes. Charges/Coding Visit Charges OBSV E&M: 29305 Observ/hosp same date L3
[2023-12-18 00:01] VITALS: BP 128/75; PULSE 80; RESP 11; O2SAT 100
[2023-12-18] MEDS: Ondansetron 4 MG/2 ML Vial IV (00:04)
--- NOTE | 2023-12-18 00:31 | MRI_ITS ---
EXAM: MR HEAD WITHOUT INTRAVENOUS CONTRAST CLINICAL INDICATION: Recent mechanical fall with postconcussion syndrome TECHNIQUE: Multiplanar and multisequence MR images of the brain were obtained without intravenous contrast. COMPARISON: No relevant prior studies available. FINDINGS: BRAIN AND EXTRA-AXIAL SPACES: Several small foci of T2 signal intensity within the cerebral white matter suggestive of chronic microvascular change. No intra- or extra-axial hemorrhage. No evidence of acute infarct. No intracranial mass or mass effect. There is preservation of the rodriguez/white matter interface. Posterior fossa structures are unremarkable. Ventricles are appropriate for age. No hydrocephalus. Basal cisterns are patent. SELLA: Normal. Normal sella turcica, pituitary gland, infundibular stalk, optic chiasm and hypothalamus. AUDITORY SYSTEM: Normal. The internal auditory canals are patent. BONES/JOINTS: Intact calvarium. SINUSES: Unremarkable as visualized. Clear. MASTOID AIR CELLS: Unremarkable as visualized. Clear. ORBITS: Unremarkable as visualized. Both globes, extraocular muscles, optic nerves and retrobulbar fat appear unremarkable. VASCULATURE: Unremarkable as visualized. Normal flow voids in the major intracranial circulation. MRI/Brain without Contrast IMPRESSION: No acute intracranial abnormality. Electronically Signed: Noam Flynn MD at 11:29 EDT ,
[2023-12-18] MEDS: 0.9% Normal Saline (1000mL) 1,000 ML 70 ML IV ×2 (00:56→20:06)
[2023-12-18 01:02] VITALS: BP 130/66; PULSE 67; RESP 16; TEMP 36.6; O2SAT 100
[2023-12-18] MEDS: Scopolamine 1mg/72hr Patch 1 PATCH TD (01:07)
[2023-12-18] MEDS: Acetaminophen 325 MG Tablet 650 MG PO (01:16)
[2023-12-18 05:46] VITALS: BP 108/50; PULSE 69; RESP 16; TEMP 36.9; O2SAT 96
[2023-12-18] MEDS: Potassium Chloride Oral Tablet 20 MEQ 60 MEQ PO (05:49)
[2023-12-18] MEDS: Carbidopa/Levodopa 25/100 Tablet PO ×3 (05:49→16:53)
[2023-12-18 05:59] VITALS: BMI 30.2
[2023-12-18 06:25] LABS: Absolute Lymphocyte Count 1.26 X10^3/uL (0.83-4.51); Absolute Neutrophil Count 3.2 X10^3/uL (2.0-7.7); Basophil# 0.03 X10^3/uL; Basophil% 0.6 % (0-1); Eosinophil# 0.04 X10^3/uL; Eosinophils% 0.8 % (0-5); Hematocrit 35.6 % (37-47); Hemoglobin 12.5 g/dL (12.0-15.0); Lymphocyte # 1.26 X10^3/ul (0.83-4.51); Lymphocyte % 24.3 % (19-41); Mean Corp Hgb Conc 35.1 g/dL (32-36); Mean Corpuscular Hgb 32.1 pg (27.0-32.0); Mean Corpuscular Volume 91.5 fL (81-99); Mean Platelet Vol. 9.9 fl (6.2-12.0); Monocyte# 0.68 X10^3/uL; Monocyte% 13.1 % (0-10); NRBC Flagged by Analyzer 0 % (0-5); Neutrophil # 3.17 X10^3/uL (2.7-7.7); Platelet Count 203 K/mm3 (150-450); RBC Distribution Width CV 13.1 % (11.6-14.6); RBC Distribution Width SD 43.8 fl (35.1-43.9); Red Blood Count 3.89 M/mm3 (4.2-5.4); White Blood Count 5.2 K/mm3 (4.4-11.0)
[2023-12-18 06:53] LABS: ALB/GLOB Ratio 1.1 RATIO (0.9-2.4); AST(SGOT) 19 U/L (15-37); Alanine Aminotransfer ALT/SGPT 7 U/L (13-56); Albumin, Serum 3.2 g/dL (3.2-5.0); Alkaline Phosphatase 55 U/L (45-117); Anion Gap 6 (5-15); BUN 12 mg/dL (7-18); BUN/Creat Ratio 15.9 RATIO (10-20); Calcium,Total 8.6 mg/dL (8.5-10.1); Chloride 110 mmol/L (98-107); Creatinine, Serum 0.76 mg/dL (0.55-1.02); EST Glomerular Filtration Rate 79 mL/min (>60); Est Glom Filt Rate - Afr Amer 96 mL/min (>60); Estimated Creatinine Clearance 57.42 ml/min; Glucose 87 mg/dL (74-106); Phosphorus 4.2 mg/dL (2.5-4.9); Potassium 3.4 mmol/L (3.5-5.1); Protein, Total 6.2 g/dL (6.4-8.2); Sodium Level 140 mmol/L (136-145); Thyroid Stim Hormone (TSH) 1.96 uIU/mL (0.358-3.74)
[2023-12-18 08:11] VITALS: BP 98/60; PULSE 74; RESP 16; TEMP 36.7; O2SAT 98
[2023-12-18] MEDS: Ferrous Sulfate 325 MG Tablet PO (08:21)
[2023-12-18] MEDS: Potassium Chloride Oral Tablet 20 MEQ PO (08:21)
[2023-12-18] MEDS: Calcium Carbonate 500 MG Tablet PO (08:22)
[2023-12-18] MEDS: Multivitamins,Therapeutic Tablet 1 TABLET PO (08:22)
[2023-12-18] MEDS: Ascorbic Acid 500 MG Tablet 1000 MG PO (08:23)
[2023-12-18] MEDS: Ensure Plus High Protein 120 ML LIQUID PO ×3 (08:30→16:53)
[2023-12-18] MEDS: 0.9% Saline Lock 10 ML Syringe IV (10:56)
[2023-12-18] MEDS: Citalopram 20 MG Tablet PO (10:59)
[2023-12-18] MEDS: Loratadine 10 MG Tablet PO (10:59)
[2023-12-18] MEDS: APIXABAN 5 MG TABLET PO ×2 (10:59→22:23)
[2023-12-18] MEDS: Montelukast 10 MG Tablet PO (11:00)
[2023-12-18] MEDS: Pantoprazole Sodium 20 MG Tablet PO (11:00)
[2023-12-18] MEDS: Verapamil SR 240 MG Tablet PO (11:02)
[2023-12-18 15:13] VITALS: BP 125/92; PULSE 69; RESP 16; TEMP 36.8; O2SAT 99
--- NOTE | 2023-12-18 15:54 | PCM.PN.HOSP ---
Subjective Subjective Doing well, appears very anxious. No tremors or shaking at this time. MRI was negative for stroke Objective Data Objective Data Vital Signs: Vital Signs Temp Pulse Resp BP Pulse Ox O2 Del Method O2 Flow Rate 98.2 F 69 16 125/92 H 99 Room Air 2 12/18/23 15:13 12/18/23 15:13 12/18/23 15:13 12/18/23 15:13 12/18/23 15:13 12/18/23 15:13 12/18/23 08:11 Oxygen Flow Rate (L/min) 2 Oxygen Delivery Method Room Air Weight: 164 lb 3.91 oz Body Mass Index (BMI) 30.2 Intake & Output: Intake and Output for Last 24 Hours 12/17/23 12/18/23 12/19/23 03:59 03:59 03:59 Intake Total 500 / 500 100 / 100 Output Total 1150 / 1150 Balance 500 / 500 -1050 / -1050 Lab / Micro Data 12/18/23 05:44 12/18/23 05:44 Labs: Laboratory Results - last 24 hr 12/17/23 19:45: WBC 5.0, RBC 4.45, Hgb 14.2, Hct 39.8, MCV 89.4, MCH 31.9, MCHC 35.7, RDW Std Deviation 41.8, RDW Coeff of Shannon 12.7, Plt Count 255, MPV 10.1, Immature Gran % (Auto) 0.200, Neut % (Auto) 64.1, Lymph % (Auto) 25.7, [place] % (Auto) 8.4, Eos % (Auto) 0.8, Baso % (Auto) 0.8, Absolute Neuts (auto) 3.2, Absolute Lymphs (auto) 1.29, Nucleated RBC % 0, Sodium 135 L, Potassium 3.1 L, Chloride 103, Carbon Dioxide 20.0 L, Anion Gap 12, BUN 16, Creatinine 1.03 H, Estim Creat Clear Calc 45.70, Est GFR (MDRD) Af Amer 67, Est GFR (MDRD) Non-Af 55 L, BUN/Creatinine Ratio 15.5, Glucose 164 H, Calcium 9.8, Total Bilirubin 0.80, AST 18, ALT < 6 L, Alkaline Phosphatase 70, Total Protein 7.6, Albumin 4.1, Globulin 3.5, Albumin/Globulin Ratio 1.2 12/17/23 20:50: Urine Color Yellow, Urine Clarity Clear, Urine pH 8.0, Ur Specific [place] 1.015, Urine Protein Negative, Urine Glucose (UA) Normal, Urine Ketones 50 H, Urine Occult Blood Negative, Urine Nitrite Negative, Urine Bilirubin Negative, Urine Urobilinogen Normal, Ur Leukocyte Esterase Negative, Urine RBC 0 SEEN, Urine WBC 0 SEEN, Ur Squamous Epith Cells 0 SEEN, Urine Bacteria 0 SEEN, Urine Mucus 0 SEEN 12/18/23 05:44: WBC 5.2, RBC 3.89 L, Hgb 12.5, Hct 35.6 L, MCV 91.5, MCH 32.1 H, MCHC 35.1, RDW Std Deviation 43.8, RDW Coeff of Shannon 13.1, Plt Count 203, MPV 9.9, Immature Gran % (Auto) 0.200, Neut % (Auto) 61.0, Lymph % (Auto) 24.3, [place] % (Auto) 13.1 H, Eos % (Auto) 0.8, Baso % (Auto) 0.6, Absolute Neuts (auto) 3.2, Absolute Lymphs (auto) 1.26, Nucleated RBC % 0, Sodium 140, Potassium 3.4 L, Chloride 110 H, Carbon Dioxide 24.0, Anion Gap 6, BUN 12, Creatinine 0.76, Estim Creat Clear Calc 57.42, Est GFR (MDRD) Af Amer 96, Est GFR (MDRD) Non-Af 79, BUN/Creatinine Ratio 15.9, Glucose 87, Calcium 8.6, Phosphorus 4.2, Magnesium 2.0, Total Bilirubin 0.70, AST 19, ALT 7 L, Alkaline Phosphatase 55, Total Protein 6.2 L, Albumin 3.2, Globulin 3.0, Albumin/Globulin Ratio 1.1, TSH 1.96 Radiography Diagnostic Testing: Radiology Impression Brain MRI 12/18/23 00:31 IMPRESSION: No acute intracranial abnormality. Electronically Signed: Noam lFynn MD at 11:29 EDT , Rhythm Strip Rhythm Strip: Sinus Rhythm Rate: 79 Ectopy: None Physical Exam Narrative General: Alert, Oriented x3, Cooperative, No apparent distress HEENT: Atraumatic, PERRLA, EOMI, Normocephalic, left frontal hematoma ecchymosis Oral: Moist Mucosa Neck: Supple, No JVD Lungs: Diminished, Normal air movement, No rhonchi, No wheeze, No rales Cardiovascular: Regular rate, Regular Rhythm, Normal S1, Normal S2, No murmurs Abdomen: Soft, Non Tender, Non-Distended, No Hepato-splenomegaly Extremities: Trace edema, Capillary Refill Less than 3 Seconds Skin: No rashes, No breakdown Musculoskeletal: No Tenderness to Palpation of Joints or Extremities Neurological: No focal neurological deficits, Motor Exam 5/5 strength throughout, Sensory exam intact to light touch and pain Psych/Mental Status: anxious Assessment & Plan Assessment/Plan (1) Postconcussion syndrome: (2) Generalized weakness: (3) Unable to walk: (4) History of Parkinson's disease: (5) Chronic anticoagulation: (6) Factor V Leiden mutation: PLAN: Plan 1. Generalized weakness with postconcussion syndrome after mechanical fall on 12/03/2023/Parkinson's disease ? Head imaging is negative for bleed, she is on Eliquis for factor V Leiden and history of DVT ? Continue with IV fluids as well as Zofran for nausea ? MRI was unremarkable ? Unfortunately physical therapy was not able to evaluate her today because when they went in to see her she was done an MRI, will attempt evaluation tomorrow ? Continue with Sinemet, family states that they had to cut her down because of lightheadedness and dizziness but when they did tremors seem to get a little bit worse 2. Factor V Leiden ? She does have a history of a previous DVT ? Continue with Eliquis as there is no signs of intracranial bleeding on imaging 3. Essential HTN/paroxysmal A-fib ? Blood pressure stable ? Can resume as her home medications ? Continue with Eliquis ? Continue with statin 4. History of migraines/depression ? Stable ? Resume home medications 5. GERD ? Stable ? Continue with PPI DVT: Eliquis Charges/Coding Visit Charges Inpatient E&M: 27456 Subs Hosp L2
--- NOTE | 2023-12-18 16:00 | CASEMGMT ---
Social Work Collaboration with RN KERRI today, and noted potential need for short-term care home placement. Chart reviewed and noted that therapy was unable to meet with patient today due to being out of room for testing. Due to the lateness of the day, in a weakened timeframe, met with patient to review various options for aftercare which can be further determined after therapy evaluations are completed. This automobile and property underwriter printed up care home facility and acute inpatient rehab unit list from [facility], for patient's geographical region and insurance networks. This include Medicare quality data and star ratings. Met with patient and patient's daughter Pau in room, introducing to self and social work role. Both agreeable to speak with social work and engaged in conversation. Broached need for discharge planning discussion, and to consider what options are available, but that determination will be further made after patient is able to work with therapy for patient's current functional status. Reviewed care home facility level of care, in conjunction with patient's current observation status and what this would be for payment. Educated to inpatient rehab the level of care. Introduced to home healthcare therapy and outpatient therapy as well. Patient has been to [facility] in the past, two times. Provided careport lists to patient and daughter. Daughter shares that patient's has dementia and just [facility] the [facility] September. 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 Engaged patient conversation about being a caregiver, and processed how patient is doing. Discussed caregiver support groups, which patient is aware of and admits to being given this information while the patient's was at [facility]. Much discussion about patient's hesitancy in trying the support group. By end of conversation patient agreed that would be willing to try this. Provided patient with information on [facility] on aging, [facility] disability center, to call to see if there's any type of services available for additional caregiver support and/or dementia care support. Information provided on local counseling options is another level of support for the patient to process emotions and feelings. Patient does reportedly have a history of some anxiety. Let patient know that if patient is doing well enough with therapy tomorrow, and can go home that discharge may occur over the weekend but if it is deemed that patient would benefit from some type of inpatient stay, social work will follow-up after the weekend. Plan: to be determined, pending therapy evaluations. Home with consideration for outpatient therapy versus home with home healthcare versus short-term rehabilitation stay at [facility] or are you. Supportive resources have been provided related to being caregiver and ongoing emotional health. -TRISTIN Benedict, NON CDL DRIVER *This note was generated with [employer] dictation software. It may contain incorrect words, spelling, and punctuation that were not noted in review of the chart prior to signing*
--- NOTE | 2023-12-18 18:05 | CASEMGMT ---
ESTEFANÍA MANNING NOTE: Intro role of CM to patient and MURPHY form explained re: Observation status for treatment of postconcussion syndrome w/intractable N/V after a fall.? Explained hospitalization will be paid per? her insurance policy for Outpatient billing?and condition will continue to be evaluated for Inpt necessity. Also let pt know that [facility] sends paper in the billing packet with their phone number if questions arise. Pt verbalizes understanding and does not have further questions. ?Form signed, copy made and placed in chart, and original given to pt. Татьяна AVILAN RN CM
[2023-12-18 19:57] VITALS: BP 101/56; PULSE 73; RESP 16; TEMP 36.6; O2SAT 97
[2023-12-18] MEDS: Divalproex (ER) 500 MG Tablet PO (22:23)
[2023-12-18] MEDS: Amitriptyline 25 MG Tablet PO (22:23)
[2023-12-18] MEDS: MELATONIN 3 MG TABLET PO (22:23)
[2023-12-19 02:38] VITALS: BP 98/49; PULSE 67; RESP 16; TEMP 36.6; O2SAT 99
[2023-12-19 05:32] LABS: Absolute Lymphocyte Count 1.39 X10^3/uL (0.83-4.51); Absolute Neutrophil Count 1.8 X10^3/uL (2.0-7.7); Basophil# 0.03 X10^3/uL; Basophil% 0.8 % (0-1); Eosinophils% 2.7 % (0-5); Hematocrit 35.5 % (37-47); Hemoglobin 11.7 g/dL (12.0-15.0); Lymphocyte # 1.39 X10^3/ul (0.83-4.51); Lymphocyte % 37.4 % (19-41); Mean Corpuscular Hgb 30.9 pg (27.0-32.0); Mean Corpuscular Volume 93.7 fL (81-99); Monocyte# 0.42 X10^3/uL; Monocyte% 11.3 % (0-10); NRBC Flagged by Analyzer 0 % (0-5); Neutrophil # 1.77 X10^3/uL (2.7-7.7); Neutrophil % 47.5 % (47-70); Platelet Count 192 K/mm3 (150-450); RBC Distribution Width CV 13.3 % (11.6-14.6); Red Blood Count 3.79 M/mm3 (4.2-5.4); White Blood Count 3.7 K/mm3 (4.4-11.0)
[2023-12-19 05:55] VITALS: BMI 30.5
[2023-12-19 06:09] LABS: Anion Gap 4 (5-15); BUN 11 mg/dL (7-18); BUN/Creat Ratio 13.9 RATIO (10-20); Calcium,Total 8.6 mg/dL (8.5-10.1); Chloride 111 mmol/L (98-107); Creatinine, Serum 0.79 mg/dL (0.55-1.02); EST Glomerular Filtration Rate 75 mL/min (>60); Est Glom Filt Rate - Afr Amer 91 mL/min (>60); Estimated Creatinine Clearance 57.72 ml/min; Glucose 91 mg/dL (74-106); Potassium 4.1 mmol/L (3.5-5.1); Sodium Level 140 mmol/L (136-145)
[2023-12-19] MEDS: Acetaminophen 325 MG Tablet 650 MG PO (06:32)
[2023-12-19] MEDS: Carbidopa/Levodopa 25/100 Tablet PO ×3 (06:32→16:16)
[2023-12-19 08:21] VITALS: BP 142/75; PULSE 68; RESP 16; TEMP 36.6; O2SAT 100
[2023-12-19] MEDS: Ensure Plus High Protein 120 ML LIQUID PO ×3 (08:34→16:16)
[2023-12-19] MEDS: Ferrous Sulfate 325 MG Tablet PO (08:34)
[2023-12-19] MEDS: Potassium Chloride Oral Tablet 20 MEQ PO (08:35)
[2023-12-19] MEDS: Calcium Carbonate 500 MG Tablet PO (08:35)
[2023-12-19] MEDS: Multivitamins,Therapeutic Tablet 1 TABLET PO (08:35)
[2023-12-19] MEDS: Ascorbic Acid 500 MG Tablet 1000 MG PO (08:36)
[2023-12-19] MEDS: Citalopram 20 MG Tablet PO (10:45)
[2023-12-19] MEDS: Loratadine 10 MG Tablet PO (10:45)
[2023-12-19] MEDS: Verapamil SR 240 MG Tablet PO (10:46)
[2023-12-19] MEDS: APIXABAN 5 MG TABLET PO ×2 (10:46→21:14)
[2023-12-19] MEDS: Pantoprazole Sodium 20 MG Tablet PO (10:47)
[2023-12-19] MEDS: Montelukast 10 MG Tablet PO (10:47)
[2023-12-19] MEDS: 0.9% Normal Saline (1000mL) 1,000 ML 70 ML IV (10:51)
--- NOTE | 2023-12-19 13:54 | PCM.PN.HOSP ---
Subjective Subjective Feels better than when she came in and is feeling better than she has this last week but she still feels upset about going home, she still has some shakiness when she was walking with physical therapy today. And she does take care of her at home and she is afraid to go home today. She will need home health on discharge Objective Data Objective Data Vital Signs: Vital Signs Temp Pulse Resp BP Pulse Ox O2 Del Method O2 Flow Rate 97.8 F 68 16 142/75 H 100 Room Air 2 12/19/23 08:21 12/19/23 08:21 12/19/23 08:21 12/19/23 08:21 12/19/23 08:21 12/19/23 08:21 12/19/23 02:38 Oxygen Flow Rate (L/min) 2 Oxygen Delivery Method Room Air Weight: 166 lb 0.129 oz Body Mass Index (BMI) 30.5 Intake & Output: Intake and Output for Last 24 Hours 12/18/23 12/19/23 12/20/23 03:59 03:59 03:59 Intake Total 500 / 500 1100 / 1100 1100 / 1100 Output Total 1150 / 1150 Balance 500 / 500 -50 / -50 1100 / 1100 Lab / Micro Data 12/19/23 04:45 12/19/23 04:45 Labs: Laboratory Results - last 24 hr 12/19/23 04:45: WBC 3.7 L, RBC 3.79 L, Hgb 11.7 L, Hct 35.5 L, MCV 93.7, MCH 30.9, MCHC 33.0 D, RDW Std Deviation 46.0 H, RDW Coeff of Shannon 13.3, Plt Count 192, MPV 10.0, Immature Gran % (Auto) 0.300, Neut % (Auto) 47.5, Lymph % (Auto) 37.4, Sibley % (Auto) 11.3 H, Eos % (Auto) 2.7, Baso % (Auto) 0.8, Absolute Neuts (auto) 1.8 L, Absolute Lymphs (auto) 1.39, Nucleated RBC % 0, Sodium 140, Potassium 4.1, Chloride 111 H, Carbon Dioxide 25.0, Anion Gap 4 L, BUN 11, Creatinine 0.79, Estim Creat Clear Calc 57.72, Est GFR (MDRD) Af Amer 91, Est GFR (MDRD) Non-Af 75, BUN/Creatinine Ratio 13.9, Glucose 91, Calcium 8.6 Rhythm Strip Rhythm Strip: Sinus Rhythm Rate: 79 Ectopy: None Physical Exam Narrative General: Alert, Oriented x3, Cooperative, No apparent distress HEENT: Atraumatic, PERRLA, EOMI, Normocephalic, left frontal hematoma ecchymosis Oral: Moist Mucosa Neck: Supple, No JVD Lungs: Diminished, Normal air movement, No rhonchi, No wheeze, No rales Cardiovascular: Regular rate, Regular Rhythm, Normal S1, Normal S2, No murmurs Abdomen: Soft, Non Tender, Non-Distended, No Hepato-splenomegaly Extremities: Trace edema, Capillary Refill Less than 3 Seconds Skin: No rashes, No breakdown Musculoskeletal: No Tenderness to Palpation of Joints or Extremities Neurological: No focal neurological deficits, Motor Exam 5/5 strength throughout, Sensory exam intact to light touch and pain Psych/Mental Status: anxious though improved from yesterday Assessment & Plan Assessment/Plan (1) Postconcussion syndrome: (2) Generalized weakness: (3) Unable to walk: (4) History of Parkinson's disease: (5) Chronic anticoagulation: (6) Factor V Leiden mutation: PLAN: Plan 1. Generalized weakness with postconcussion syndrome after mechanical fall on 12/03/2023/Parkinson's disease ? Head imaging is negative for bleed, she is on Eliquis for factor V Leiden and history of DVT ? Continue with IV fluids as well as Zofran for nausea ? MRI was unremarkable ? Unfortunately physical therapy was not able to evaluate her today because when they went in to see her she was done an MRI, will attempt evaluation tomorrow ? Continue with Sinemet, family states that they had to cut her down because of lightheadedness and dizziness but when they did tremors seem to get a little bit worse ? PT worked with her today and did not feel that she needed SNF placement however her gait for short and she felt she was unsteady. Will need home health care on discharge and she would like to go tomorrow if possible 2. Factor V Leiden ? She does have a history of a previous DVT ? Continue with Eliquis as there is no signs of intracranial bleeding on imaging 3. Essential HTN/paroxysmal A-fib ? Blood pressure stable ? Can resume as her home medications ? Continue with Eliquis ? Continue with statin 4. History of migraines/depression ? Stable ? Resume home medications 5. GERD ? Stable ? Continue with PPI DVT: Eliquis Charges/Coding Visit Charges Inpatient E&M: 54679 Subs Hosp L2
[2023-12-19 14:56] VITALS: BP 113/62; PULSE 71; RESP 16; TEMP 36.5; O2SAT 100
[2023-12-19 21:05] VITALS: BP 92/50; PULSE 69; RESP 16; TEMP 36.9; O2SAT 100
[2023-12-19] MEDS: Amitriptyline 25 MG Tablet PO (21:14)
[2023-12-19] MEDS: Divalproex (ER) 500 MG Tablet PO (21:14)
[2023-12-20] VITALS (7 sets, daily range): BP systolic 96–125; BP diastolic 60–90; PULSE 53–132; RESP 16–18; TEMP 36.6–37.2; O2SAT 98–100; BMI 31.3
[2023-12-20] MEDS: 0.9% Normal Saline (1000mL) 1,000 ML 70 ML IV (00:12)
[2023-12-20] MEDS: Carbidopa/Levodopa 25/100 Tablet PO ×3 (06:24→16:26)
--- NOTE | 2023-12-20 07:29 | CPS ---
Pt states she is wearing the oxygen at night while here. She has a CPAP at home but did not bring in with her.
[2023-12-20] MEDS: Acetaminophen 325 MG Tablet 650 MG PO (07:53)
[2023-12-20] MEDS: Calcium Carbonate 500 MG Tablet PO (07:53)
[2023-12-20] MEDS: Ascorbic Acid 500 MG Tablet 1000 MG PO (07:54)
[2023-12-20] MEDS: Potassium Chloride Oral Tablet 20 MEQ PO (07:54)
[2023-12-20] MEDS: Multivitamins,Therapeutic Tablet 1 TABLET PO (07:54)
[2023-12-20] MEDS: Ferrous Sulfate 325 MG Tablet PO (07:54)
[2023-12-20] MEDS: Ensure Plus High Protein 120 ML LIQUID PO (07:55)
--- NOTE | 2023-12-20 10:50 | CASEMGMT ---
ESTEFANÍA MANNING to pt room regarding DC planning. At this time pt states that she would like to go home with the help of her son and also [facility]. Pt states that she has a history with [facility] and that she would like to resume care through [facility]. Pt denies wanting to see a list of other agencies. This RN KERRI noted that the pt PCP is Dr. Riojas. Pt educated that this PCP wants to see his pts prior to [facility]. TC to Dr. Riojas office and they stated that they will not be able to see the pt today d/t same day DC and insurance issues. Dr. Riojas's office state that they can see the pt at 1020 tomorrow morning. Pt is OK with this. TC to [facility] and they state that they can accept the pt for SOC on Wednesday for SN, PT and OT. Pt is happy with this plan and states that her son will be able to provide her with transportation. Pt denies further needs at this time. DC plan updated.
[2023-12-20] MEDS: Citalopram 20 MG Tablet PO (11:22)
[2023-12-20] MEDS: Montelukast 10 MG Tablet PO (11:22)
[2023-12-20] MEDS: Loratadine 10 MG Tablet PO (11:23)
[2023-12-20] MEDS: Pantoprazole Sodium 20 MG Tablet PO (11:23)
[2023-12-20] MEDS: APIXABAN 5 MG TABLET PO (11:23)
--- NOTE | 2023-12-20 14:44 | CHAPLAIN ---
Type of Pastoral Visit _x__ Initial Visit ___ Follow-up Visit ___ On-call Visit ___ General Patient Visit ___ Spiritual Assessment ___ Family Conference ___ Bereavement ___ Rapid Response ___ Code Blue ___ Other (describe below) Pastoral Care Referral From _x__ Patient ___ Family ___ Nurse ___ Physician ___ Sanding Machine Tender Automatic ___ Window Glass Installer ___ Other (describe below) Sacrament/Intervention _x__ Active listening ___ Anointing ___ Confucianism ___ Bereavement ___ Communion ___ Tammi exploration ___ _x__ Life review _x__ Prayer ___ Reconciliation ___ Sacrament of Sick ___ Supportive presence ___ Wedding ___ Other (describe below) Pastoral Comments patient and son are in the room; pt is waiting on more results and on finding out about a possible discharge; pt states she is feeling better but wants to have answers; pt is talkative about life and of her son as well; pt welcomes prayer support
--- NOTE | 2023-12-20 15:37 | PCM.DC.SUM ---
Providers Date of Admission: 12/18/23 Date of Discharge: 12/20/23 Primary Care Physician: Dr. Desmond Riojas MD Reason For Visit: POSTCONCUSSION SYNDROME WITH INTRACTABLE NAUSEA Diagnosis Discharge Diagnosis (1) Postconcussion syndrome: Status: Acute Code(s): F07.81 - Postconcussional syndrome (2) Generalized weakness: Status: Acute Code(s): R53.1 - Weakness (3) Unable to walk: Status: Acute Code(s): R26.2 - Difficulty in walking, not elsewhere classified (4) History of Parkinson's disease: Status: Acute Code(s): Z86.69 - Personal history of other diseases of the nervous system and sense organs (5) Chronic anticoagulation: Status: Acute Code(s): Z79.01 - halfway (current) use of anticoagulants (6) Factor V Leiden mutation: Status: Acute Code(s): D68.51 - Activated protein C resistance Medications at Discharge Home Medications montelukast 10 mg tablet 10 mg PO DAILY Allergies 09/29/13 omeprazole 20 mg capsule,delayed release 20 mg PO DAILY GERD 09/29/13 amitriptyline 25 mg tablet 25 mg PO QHS Mood 10/25/19 galcanezumab-gnlm 120 mg/mL subcutaneous syringe (Emgality) 120 mg subcut QMONTH Migraines 10/25/19 multivitamin 1 tab PO DAILY Supplement 04/26/20 divalproex 500 mg tablet,extended release 24 hr (Depakote ER) 500 mg PO QHS headache 01/31/21 calcium carbonate 600 mg calcium (1,500 mg) tablet 600 mg PO DAILY supplement 11/24/21 ergocalciferol (vitamin D2) 1,250 mcg (50,000 unit) capsule 1,250 mcg PO DAILY supplement 11/24/21 ascorbic acid (vitamin C) 1,000 mg tablet,extended release (Vitamin C ER) 1,000 mg PO DAILY Supplement 06/01/22 acetaminophen 500 mg tablet 1,000 mg (2 x 500 mg) PO Q8H PRN PRN pain #1 TAB 06/12/22 apixaban 5 mg tablet 5 mg PO BID Blood thinner #60 tabs 06/12/22 citalopram 20 mg tablet 20 mg PO DAILY #30 tabs 06/12/22 ferrous sulfate 325 mg (65 mg iron) tablet 325 mg PO DAILY supplement 09/12/22 carbidopa 25 mg-levodopa 100 mg tablet 2 tab PO 4X/DAY 12/17/23 levocetirizine 5 mg tablet 5 mg PO DAILY 12/17/23 potassium chloride 20 mEq tablet,extended release(part/cryst) 20 meq PO DAILY 12/17/23 verapamil 120 mg 24 hr capsule,extended release 120 mg PO DAILY #30 caps 12/20/23 Hospital Course Operations None Procedures None Summary of Care Provided Minutes Spent on Discharge: 45 Hospital Course: Patient is a 73-year-old female with an extensive past medical history as outlined was admitted through the ED on 12/17/2023 with a complaint of intermittent nausea and vomiting. She had been admitted to the hospital but a couple of weeks prior to admission after she fell and hit the left side of her head and left knee. She did not lose consciousness at that time but was generally weak. She had had some intermittent nausea and vomiting and was discharged home. However she came to the ED this time with complaint of nausea and vomiting and weakness as well as dizziness. She also has the associated vomiting as stated. She has seen her neurologist the day before admission and she had a repeat CT of the brain done showed only chronic involutional changes and no bleed or other acute intracranial pathology. His Sinemet had been reduced from 4 times a day to 3 times a day. There is concern for postconcussive syndrome. She was admitted and managed for debility and weakness likely due to postconcussive syndrome. She was hydrated with fluids. PT OT was consulted. Patient did very well with PT OT and felt much better. She did have an MRI of the brain which showed no evidence of stroke. She did well with therapy. She remained stable and was discharged home on 12/20/2023. She is follow-up with her primary care doctor within 1 to 2 weeks. Of note, patient's blood pressure was on the lower side of normal so her verapamil was cut down from 240 mg daily to 120 mg daily. She is follow-up with her primary care doctor for adjustment of her medications as needed. Patient seen and examined prior to discharge. She had no active complaints. Review of systems otherwise negative. Labs and vitals reviewed. Home medication reviewed and reconciled. Physical Exam Const alert, oriented x3 and no apparent distress General Appearance: cooperative, comfortable and well kempt Orientation / Consciousness: awake Exam Limitations: no limitations HEENT normocephalic, head/scalp atraumatic, hearing grossly normal bilaterally and moist oral mucous membranes Mouth: oral and palatal mucosa normal Eyes PERRL, EOMs intact bilaterally and conjunctivae normal Neck no lymphadenopathy and supple Resp normal respiratory effort, no retractions, no use of accessory muscles and clear to auscultation bilaterally Cardio regular rate, regular rhythm, S1 normal heart sound, S2 normal heart sound and no murmurs GI normal to inspection, nondistended, normoactive bowel sounds, soft to palpation and non-tender Extremity normal to inspection, full ROM and no clubbing, cyanosis or edema Skin no rashes or lesions noted and no wounds Neuro oriented x3, CN's II-XII intact bilaterally, moves all extremities and no focal motor deficits Sensorium / Orientation: awake and alert Motor Exam: strength 5/5 throughout Psych affect normal Weight / BMI Weight Weight: 170 lb 3.15 oz Body Mass Index (BMI) 31.3 ABG / Lab / Microbiology Data 12/19/23 04:45 12/19/23 04:45 D/C Instructions Discharge Diet: Low fat / Low cholesterol Discharge Activity: Return to Normal Activity Weight Bearing Status: Weight bearing as tolerated Call your doctor if you observe: Fever of 101 or Higher, Shortness of breath, Dizziness, Swelling in the ankles and Chest pain Meaningful Use Info Meaningful Use Diagnoses (Choose all that apply): None applicable Discharge Plan Admission Admit Date/Time: 12/18/23 00:05 Primary Reason for Your Visit: mechanical fall Attending Provider: Renae Ordoñez Primary Care Provider: Desmond Riojas Chi [employer] Providers: Giuliano Gilliland; Сергей Vega Instructions Patient Instructions: ED Mechanical Fall Discharge Orders/Prescriptions Prescriptions: New verapamil 120 mg capsule,ext rel. pellets 24 hr 120 mg PO DAILY Qty: 30 2RF Continued amitriptyline 25 mg tablet 25 mg PO QHS Emgality Syringe 120 mg/mL syringe 120 mg SC QMONTH multivitamin Tablet 1 tab PO DAILY calcium carbonate 600 mg calcium (1,500 mg) tablet 600 mg PO DAILY ergocalciferol (vitamin D2) 1,250 mcg (50,000 unit) capsule 1,250 mcg PO DAILY omeprazole 20 MG capsule 20 mg PO DAILY montelukast 10 MG tablet 10 mg PO DAILY divalproex [Depakote ER] 500 mg Tablet Extended Release 24 Hr 500 mg PO QHS Vitamin C 1,000 mg Tablet Extended Release 1,000 mg PO DAILY Rx Instructions: Take with Iron supplement citalopram 20 mg Tablet 20 mg PO DAILY Qty: 30 0RF acetaminophen 500 mg tablet 1,000 mg PO Q8H PRN PRN (Reason: pain) Qty: 1 0RF Rx Instructions: 2 tabs every 8 hours as needed for pain. apixaban 5 mg tablet 5 mg PO BID Qty: 60 0RF Rx Instructions: 1 tab every 12 H ferrous sulfate 325 mg (65 mg iron) Tablet 325 mg PO DAILY carbidopa-levodopa 25-100 mg tablet 2 tab PO 4X/DAY levocetirizine 5 mg tablet 5 mg PO DAILY potassium chloride 20 mEq tablet,ER particles/crystals 20 meq PO DAILY Discontinued verapamil 240 MG capsule,ext rel. pellets 24 hr 240 mg PO DAILY Qty: 30 0RF Referrals / Follow Up: Desmond Riojas Chi, MD [Primary Care Provider] - Within 2 Weeks Disposition Disposition (needs filled in before D/C Order can be placed): Home Health Service Charges/Coding Visit Charges Inpatient E&M: 18807 Disch Hosp >30min
--- NOTE | 2023-12-20 15:48 | PHA.DC.MR.R ---
Pharmacy OR Med Reconciliation Pharmacy Service has performed discharge medication reconciliation for this patient. The patient's discharge medication list was reviewed for discrepancies and discrepancies were resolved. Medications at Discharge Home Medications montelukast 10 mg tablet 10 mg PO DAILY Allergies 09/29/13 omeprazole 20 mg capsule,delayed release 20 mg PO DAILY GERD 09/29/13 amitriptyline 25 mg tablet 25 mg PO QHS Mood 10/25/19 galcanezumab-gnlm 120 mg/mL subcutaneous syringe (Emgality) 120 mg subcut QMONTH Migraines 10/25/19 multivitamin 1 tab PO DAILY Supplement 04/26/20 divalproex 500 mg tablet,extended release 24 hr (Depakote ER) 500 mg PO QHS headache 01/31/21 calcium carbonate 600 mg calcium (1,500 mg) tablet 600 mg PO DAILY supplement 11/24/21 ergocalciferol (vitamin D2) 1,250 mcg (50,000 unit) capsule 1,250 mcg PO DAILY supplement 11/24/21 ascorbic acid (vitamin C) 1,000 mg tablet,extended release (Vitamin C ER) 1,000 mg PO DAILY Supplement 06/01/22 acetaminophen 500 mg tablet 1,000 mg (2 x 500 mg) PO Q8H PRN PRN pain #1 TAB 06/12/22 apixaban 5 mg tablet 5 mg PO BID Blood thinner #60 tabs 06/12/22 citalopram 20 mg tablet 20 mg PO DAILY #30 tabs 06/12/22 ferrous sulfate 325 mg (65 mg iron) tablet 325 mg PO DAILY supplement 09/12/22 carbidopa 25 mg-levodopa 100 mg tablet 2 tab PO 4X/DAY 12/17/23 levocetirizine 5 mg tablet 5 mg PO DAILY 12/17/23 potassium chloride 20 mEq tablet,extended release(part/cryst) 20 meq PO DAILY 12/17/23 verapamil 120 mg 24 hr capsule,extended release 120 mg PO DAILY #30 caps 12/20/23
== END 2023-12-20 17:06 | disposition home health service (06) ==
LOC: ED 23:22 → MS3 12-18 01:15
PROVIDERS: Family Medicine; Admitting Provider Internal Medicine; Emergency Provider Emergency Medicine; PCP Family Medicine Geriatric Medicine; Visit Provider Student in an Organized Health Care Education/Training Program
DX: F07.81 Postconcussional syndrome (principal); G20.A1 Parkinson's disease without dyskinesia, without mention of fluctuations; I48.0 Paroxysmal atrial fibrillation; N18.30 Chronic kidney disease, stage 3 unspecified; R53.1 Weakness; E66.9 Obesity, unspecified; R26.2 Difficulty in walking, not elsewhere classified; D68.51 Activated protein C resistance; F41.9 Anxiety disorder, unspecified; Z79.01 Long term (current) use of anticoagulants; R53.81 Other malaise; E78.00 Pure hypercholesterolemia, unspecified; Z68.31 Body mass index [BMI] 31.0-31.9, adult; D64.9 Anemia, unspecified; E87.6 Hypokalemia; R11.2 Nausea with vomiting, unspecified; I12.9 Hypertensive chronic kidney disease with stage 1 through stage 4 chronic kidney disease, or unspecified chronic kidney disease; Z79.899 Other long term (current) drug therapy; K21.9 Gastro-esophageal reflux disease without esophagitis; F32.A Depression, unspecified
CPT/HCPCS: 36415; 70551; 80048; 80053; 81001; 83735; 84100; 84443; 85025; 93005; 94668; 96374; 96376; 97162; 97166; 97530; 99221; 99285; J7030; J7040; P9612; A4216; G0378; J2405

== ENCOUNTER → 2024-01-10 | Outpatient (CLI) | payer MEDICARE, OTHER, SELFPAY ==
--- NOTE | 2024-01-10 16:15 | MRI_ITS ---
EXAM: MR HEAD WITHOUT INTRAVENOUS CONTRAST CLINICAL INDICATION: L SIDED WEAKNESS, HEADACHES, FORGETFULNESS TECHNIQUE: Multiplanar and multisequence MR images of the brain were obtained without intravenous contrast. COMPARISON: December 16, [address] FINDINGS: BRAIN AND EXTRA-AXIAL SPACES: Minimal ventriculomegaly appears to be due to mild hydrocephalus ex vacuo. No restricted diffusion or other evidence of acute CVA. Mild high signal intensity in the bilateral centrum semiovale. Multiple but fairly few left greater than right centrum semiovale and frontal subcortical faintly hyperintense foci on inversion recovery images which appear chronic. No intra- or extra-axial hemorrhage. No evidence of acute infarct. No intracranial mass or mass effect. There is preservation of the rodriguez/white matter interface. Posterior fossa structures are unremarkable. Basal cisterns are patent. SELLA: Unremarkable. Normal sella turcica, pituitary gland, infundibular stalk, optic chiasm and hypothalamus. AUDITORY SYSTEM: Unremarkable. The internal auditory canals are patent. BONES/JOINTS: Unremarkable. No discrete lytic or blastic abnormalities. SINUSES: Unremarkable as visualized. Clear. MASTOID AIR CELLS: Unremarkable as visualized. Clear. ORBITS: Unremarkable as visualized. Both globes, extraocular muscles, optic nerves and retrobulbar fat appear unremarkable. VASCULATURE: Unremarkable as visualized. Normal flow voids in the major intracranial circulation. MRI/Brain without Contrast IMPRESSION: No acute findings in the head/brain. Mild chronic-appearing white matter changes. Electronically Signed: Namrata Medeiros MD at 8:16 EDT ,
== END | disposition home or self-care (01) ==
LOC: MRI 15:38
PROVIDERS: PCP Family Medicine Geriatric Medicine; Referring Provider Psychiatry & Neurology Neurology; Visit Provider Psychiatry & Neurology Neurology
DX: R53.1 Weakness (principal)
CPT/HCPCS: 70551

== ENCOUNTER → 2024-03-06 | Outpatient (CLI) | payer MEDICARE, OTHER, SELFPAY ==
--- NOTE | 2024-03-06 12:29 | MRI_ITS ---
EXAM: MR LUMBAR SPINE WITHOUT INTRAVENOUS CONTRAST CLINICAL INDICATION: CHRONIC BILAT LBP, LEFT LEG WEAKNESS TECHNIQUE: Multiplanar and multisequence MR images of the lumbar spine without intravenous contrast. COMPARISON: Lumbar spine radiographs, 09/18/2022; MRI lumbar, 09/14/2022. FINDINGS: VERTEBRAE: Degenerative anterolisthesis of L3 upon L4 and L4 upon L5. Multilevel facet arthrosis and endplate osteophytosis. No fracture is identified. Hemangioma within the L2 vertebra. No suspicious marrow space signal abnormalities. Partially visualized degenerative changes in the cervical and thoracic spine. Partial sacralization of L5 with hypertrophy bilateral L5 transverse processes fused on the left. SPINAL CORD: No significant abnormality. Normal position and signal intensity of the conus medullaris. SOFT TISSUES: Large fat-containing umbilical hernia. Atrophic changes in the paraspinal muscles. KIDNEYS AND URETERS: Small right renal cyst for which no follow-up is indicated. DISCS/SPINAL CANAL/NEURAL FORAMINA: T12-L1: Disc bulge with small superimposed left central to subarticular disc herniation and mild to moderate facet arthrosis. Mild spinal canal stenosis and mild bilateral neural foraminal narrowing. L1-L2: Left central disc extrusion superimposed upon a disc bulge and moderate to severe bilateral facet arthrosis with ligamentum flavum thickening. Mild to moderate spinal canal stenosis and left greater than right moderate to severe neural foraminal stenosis. Left L1 and left L2 nerve root impingement. L2-L3: Mild to moderate spinal canal stenosis secondary to a disc bulge and moderate to severe bilateral facet arthrosis. Mild to moderate bilateral neural foraminal narrowing. No definite nerve root impingement. L3-L4: Severe spinal canal stenosis secondary to severe facet arthrosis with associated ligamentum flavum thickening and degenerative anterolisthesis of L3 upon L4 with associated pseudobulge. Near effacement of CSF from the thecal sac and moderate to severe bilateral neural foraminal narrowing. Bilateral L4 nerve root impingement and indeterminate degree of intrathecal nerve root impingement. L4-L5: Degenerative anterolisthesis secondary to severe bilateral facet arthrosis. Associated ligamentum flavum thickening. Disc uncovering/pseudobulge with superimposed central disc herniation resulting in severe spinal canal stenosis with impingement of the traversing right L5 nerve root. Severe bilateral neural foraminal narrowing with bilateral foraminal L4 nerve root impingement. L5-S1: Bilateral facet arthrosis. Mild right neural foraminal narrowing. No significant spinal canal stenosis. MRI/Spine Lumbar (Routine) IMPRESSION: 1. Extensive degenerative changes. Degenerative anterolisthesis of L3 upon L4 and L4 upon L5 with severe spinal canal stenosis particularly at these levels. Multilevel neural foraminal stenosis. Left L1, left L2, bilateral L4, and bilateral L5 nerve root impingement. Recommend spine surgery consultation. 2. Partial sacralization of L5 with hypertrophy bilateral L5 transverse processes fused on the left. 3. Large fat-containing umbilical hernia. Electronically Signed: Amrit Andre DO at 21:20 EDT ,
== END | disposition home or self-care (01) ==
LOC: MRI 12:26
PROVIDERS: PCP Family Medicine Geriatric Medicine; Referring Provider Nurse Practitioner Family; Visit Provider Nurse Practitioner Family
DX: M54.50 Low back pain, unspecified (principal); G89.29 Other chronic pain
CPT/HCPCS: 72148

== ENCOUNTER → 2024-04-19 | Outpatient (CLI) | payer MEDICARE, OTHER, SELFPAY ==
--- NOTE | 2024-04-19 10:32 | CT_ITS ---
STUDY: CT ABDOMEN AND PELVIS WITH CONTRAST REASON FOR EXAM: Female, 74 years old. SUBCUTANEOUS NODULES. Weight loss. RADIATION DOSAGE (If Supplied By Facility): CTDIvol = ( 18.97 ) mGy, DLP = ( 1185.36 ) mGycm TECHNIQUE: Transaxial images were obtained from the dome of the diaphragm to the symphysis pubis with oral contrast. Oral and amp; IV Gastrografin and amp; 100mL Isovue-300 was administered. Sagittal and coronal images were reconstructed. Individualized dose optimization techniques were used for this CT. COMPARISON: Comparison is made with prior study dated March 04, 2016. FINDINGS: The visualized lung bases are unremarkable. Coronary artery calcification. There is dilatation of the central intrahepatic biliary ducts. The patient is status post cholecystectomy. The common bile duct is dilated down to its insertion into the sphincter of Petr. The common bile duct measures 1.8 cm proximally. Distally it measures 5 mm. Correlation with ERCP is recommended for further evaluation. Normal spleen. Normal pancreas. Normal bilateral adrenal glands. Normal right kidney. Normal left kidney. There is a moderate-sized hiatal hernia. Normal small intestine. Large amount of fecal material is seen in the colon. Sigmoid diverticulosis. The appendix is visualized and appears normal. There is scattered atherosclerotic calcification of the abdominal aorta, without a demonstrated aneurysm. Normal inferior vena cava. Normal retroperitoneum. Normal urinary bladder. There is absence of the uterus consistent with a prior hysterectomy. Moderate-sized umbilical hernia containing fat. This measures 5.8 cm in transverse dimension. There are diffuse degenerative changes of the visualized lumbar spine. Status post left total hip replacement. CT/Abdomen/Pelvis WITH Contrast IMPRESSION: Status post cholecystectomy. Intrahepatic biliary ductal dilatation as well as the common bile duct. Correlation with ERCP is recommended. Sigmoid diverticulosis. Moderate sized ventral hernia containing fat. Electronically Signed: Aristides Colin MD at 13:42 EDT ,
[2024-04-19 13:15] LABS: CREATININE FINGERSTICK < 1.0 mg/dL (0.55-1.02); EGFR FINGERSTICK > 60.0000 mL/min (>60)
== END | disposition home or self-care (01) ==
LOC: CT 10:27
PROVIDERS: PCP Family Medicine Geriatric Medicine; Referring Provider Family Medicine Geriatric Medicine; Visit Provider Family Medicine Geriatric Medicine
DX: Z01.812 Encounter for preprocedural laboratory examination (principal); R22.9 Localized swelling, mass and lump, unspecified
CPT/HCPCS: 74177; Q9967

== ENCOUNTER 2024-04-21 09:30 | Outpatient (RCR) | payer MEDICARE, OTHER, SELFPAY ==
--- NOTE | 2024-02-09 19:22 | HP.PTEVAL_ITS ---
Patient's Visit Information Visit Information Visit Information: DIONTE BRADFORD is a 73 year old F referred to Physical Therapy by Dr. Preston Campbell MD with a diagnosis of PD. Date of Evaluation: 02/09/24 Physical Therapist: LIA Flores Visit Plan Frequency: 2x /Week Duration: 2 Months Plan: 2X/ week for 8 weeks for gait training, dual tasking, balance, functional transfers (sit to stand and curb etc), steps, with HEP Subjective Subjective: Pt was dx with PD last March. She has trouble with shaking hands and fell several times. She a rollator at home and cane sometime when she goes out with someone out. She saw Dr Campbell and he wanted her to have PT. Her L leg started shaking. She gets BOBBY but thinks that is from the meds. She has a hard time completing thoughts and she gets frustrated. Her balancing is off and bending over is an issue. She is on PD meds... they help with the shaking. She is having a little freezing episodes. She lives with her and he does noting and has dementia. Objective Objective: Gait: walks with straight cane with decrease step length and increase veering and instability LE MMT: (MMT1) R hip flex 9.4 and L 9 R knee ext 10.3 and L 6.5 R knee flex 6.2 and L 5.1 Sitting opp arm and leg X 10 each leg FGA: 4 Sit to stand: likes to keep knees together and uses B arms to get out of the chair Pt is able to stand and do X 4 standing opp arm and leg motions Balance/Special Test Scores Functional Gait Assessment Score: 4 % Disability: 86.6700 Lower Extremity Functional Score: 34 Goals Goal 1:: I HEP Goal Time Frame: 6-8 Weeks Goal 2:: Increase balance (FGA was 4 at eval) Goal Time Frame: 6-8 Weeks Goal 3:: Be able to walk with least restrictive device 250 feet with good step length and no veering with CGA Goal Time Frame: 6-8 Weeks Goal 4:: Be able to get up out of a chair X 5 attempt with 1 or no UE support Goal Time Frame: 6-8 Weeks Goal 5:: Be able to do X 10 standing opp arm and leg movements on each side Goal Time Frame: 6-8 Weeks Rehabilitation Potential Rehabilitation Potential: Good Anticipated Interventions Patient/Client Instruction: Educate patient on: Condition and Plan of Care For the Purpose of:: To improve nutrient delivery to tissue, To improve muscle performance and motor function, To improve ability to perform ADL's, To increase tolerance to activity/condition/position, To improve performance and independe nce with ADL's, To decrease level of supervision to perform tasks, To improve ability of physical actions for home/community/work/leisure, To improve gait and locomotor functions, To decrease soft tissue restriction, To increase flexibility/ROM, To improve endurance, To improve balance and To improve safety with gait Therapeutic Exercise to Include: Strength training, Endurance training, Balance training, Postural training, Flexibilty training, Gait and locomotor training, Neuromotor development, Passive ROM and Active ROM For the Purpose of:: To decrease pain, To increase ROM, To improve nutrient delivery to tissue, To improve muscle performance and motor function, To improve ability to perform ADL's, To increase tolerance to activity/condition/position, To decrease level of supervision to perform tasks, To improve ability of physical actions for home/community/work/leisure, To improve gait and locomotor functions, To improve health of tissue, To decrease soft tissue restriction, To increase flexibility/ROM, To improve balance and To improve safety with gait Functional Training to Include: Gait training For the Purpose of:: To improve gait and locomotor functions and To improve safety with gait Text: Thank you for the opportunity to evaluate your patient. For Medicare and Medicare HMO plans, please review the plan of care and approve it. It will need to be FAXED BACK to us at [phone] for Medicare purposes. For Medicare only, by signing this I certify the plan of care. Please let me know if there are questions or concerns regarding this plan of care. Physician Signature: Date:
--- NOTE | 2024-03-22 17:58 | HP.PTREVAL ---
Re-Evaluation Intro: Dr. Preston Campbell MD, It has been my pleasure to treat DIONTE BRADFORD over the last 10 visits for PD. Please see the progress note below for an update on the physical therapy plan of care! Subjective Subjective: Pt feels that she is still having troubles walking. She gets weak when she walks on the L side. Once in awhile it feels tired. She thinks that her balance is getting better. She struggles with getting over hurdles. Objective Objective/Function: FGA 8 Stairs: up and down recip with 2 hand rails with heistation and weakness ascending the steps and hesitation descending the steps. Gait with rollator with head turns pt has increase veering Sit to stand X 4 ( 4/5 on first attempt) Plan Plan Plan: 2X/ week for 8 weeks for balance static and functional/dynamic. Still work on stepping up and over an object and curb steps Balance/Gait/Functional tests Balance/Special Test Scores Functional Gait Assessment Score: 8 % Disability: 73.3400 Lower Extremity Functional Score: 39 Goals Goals Goal 1:: I HEP Goal Time Frame: 6-8 Weeks Goal 2:: Increase balance (FGA was 4 at eval) Goal Time Frame: 6-8 Weeks Goal Progress: Progressing Goal 3:: Be able to walk with least restrictive device 250 feet with good step length and no veering with CGA Goal Time Frame: 6-8 Weeks Goal Progress: Progressing Goal 4:: Be able to get up out of a chair X 5 attempt with 1 or no UE support Goal Time Frame: 6-8 Weeks Goal Progress: Progressing Goal 5:: Be able to do X 10 standing opp arm and leg movements on each side Goal Time Frame: 6-8 Weeks Anticipated Interventions Anticipated Interventions Patient/Client Instruction: Educate patient on: Condition and Plan of Care For the Purpose of:: To improve nutrient delivery to tissue, To improve muscle performance and motor function, To improve ability to perform ADL's, To increase tolerance to activity/condition/position, To improve performance and independence with ADL's, To decrease level of supervision to perform tasks, To improve ability of physical actions for home/community/work/leisure, To improve gait and locomotor functions, To decrease soft tissue restriction, To increase flexibility/ROM, To improve endurance, To improve balance and To improve safety with gait Therapeutic Exercise to Include: Strength training, Endurance training, Balance training, Postural training, Flexibilty training, Gait and locomotor training, Neuromotor development, Passive ROM and Active ROM For the Purpose of:: To decrease pain, To increase ROM, To improve nutrient delivery to tissue, To improve muscle performance and motor function, To improve ability to perform ADL's, To increase tolerance to activity/condition/position, To decrease level of supervision to perform tasks, To improve ability of physical actions for home/community/work/leisure, To improve gait and locomotor functions, To improve health of tissue, To decrease soft tissue restriction, To increase flexibility/ROM, To improve balance and To improve safety with gait Functional Training to Include: Gait training For the Purpose of:: To improve gait and locomotor functions and To improve safety with gait Re-Evaluation Ending Re-evaluation ending: Please do not hesitate to contact me at [phone] by phone or if you have questions or concerns regarding this new plan of care! Sincerely, Carline Edgar, MPT
--- NOTE | 2024-04-21 10:06 | HP.PTDCSUM ---
Discharge Summary D/C summary: It has been my pleasure to treat DIONTE BRADFORD referred by Dr. Preston Campbell MD, with the diagnosis of PD for a total of 16 visit(s). Discharge Date: 04/21/24 Please see the following information for a summary of their discharge status. Subjective Subjective: Pt had some pain and it resulted in back up and 2 hernias. She has to have gall bladder duct procedure. Dr Friend is supposed to call her. Pt has been driving up here. Her son reports that he notices that she is walking better. Pt feels a little weakness in her L leg right now. HEP: sit to stands, walking out to mailbox with rollator, sitting opp arm and leg. Overall Improvement % Improvement: 80 Objective Objective/Function: FGA 16 Sit to stand X 5 with no UE support on first attempt Gait: entire lap around inside building (300+feet) with rollator and SBA with talking and turning head without LOB Goals Goal 1:: I HEP Goal Progress: Goal Met Goal 2:: Increase balance (FGA was 4 at eval) Goal Progress: Goal Met Goal 3:: Be able to walk with least restrictive device 250 feet with good step length and no veering with CGA Goal Progress: Goal Met Goal 4:: Be able to get up out of a chair X 5 attempt with 1 or no UE support Goal Progress: Goal Met Goal 5:: Be able to do X 10 standing opp arm and leg movements on each side Goal Progress: Goal Met Plan Plan: DC PT to HEP D/C Information Discharge Comments: DC PT to HEP d/c sentence: If there are questions or concerns regarding this patient's physical therapy, please feel free to call me at [phone]. Thank you for the referral of this patient. Sincerely, Carline Edgar, MPT Balance/Gait/Functional tests Balance/Special Test Scores Functional Gait Assessment Score: 16 % Disability: 46.6700 Lower Extremity Functional Score: 39 Improvement % Improvement: 80
== END 2024-04-21 19:00 | disposition home or self-care (01) ==
LOC: PT 09:30
PROVIDERS: PCP Family Medicine Geriatric Medicine; Referring Provider Psychiatry & Neurology Neurology; Visit Provider Psychiatry & Neurology Neurology
DX: G20.A1 Parkinson's disease without dyskinesia, without mention of fluctuations (principal)
CPT/HCPCS: 97110; 97162; 97530

== ENCOUNTER 2024-04-22 23:33 | Observation (INO) | payer MEDICARE, OTHER, SELFPAY ==
--- NOTE | 2024-04-22 00:45 | RAD_ITS ---
INDICATION: Neuro deficit, acute, stroke suspected EXAMINATION/TECHNIQUE: X-RAY - XR Chest 1 View COMPARISON: Prior study dated: 09/12/2022 FINDINGS: LINES/DEVICES: None. LUNGS: The lungs are well expanded. No consolidation, edema or effusion. No pneumothorax. MEDIASTINUM AND CARDIOVASCULAR STRUCTURES: Cardiac silhouette not enlarged. Central airways and mediastinal contour are unremarkable. BONES AND SOFT TISSUES: No acute abnormality. RAD/Chest 1 View IMPRESSION: No acute pulmonary finding. Electronically Signed: Presley oNel MD at 1:32 EDT ,
[2024-04-22 23:34] VITALS: BP 125/72; PULSE 132; RESP 12; O2SAT 100
[2024-04-22 23:35] VITALS: BP 125/72; PULSE 129; RESP 19; O2SAT 100
--- NOTE | 2024-04-22 23:35 | CT_ITS ---
INDICATION: CVA EXAMINATION: CT BRAIN - CT Head Stroke Protocol W/O Contrast Injection TECHNIQUE: Multiple axial images were obtained of the head without intravenous contrast. A radiation dose optimization technique was used for this scan. IV Contrast dosage and agent: None. RADIATION DOSAGE (If Supplied By Facility): CTDIvol = ( 44.99 ) mGy, DLP = ( 796.11 ) mGycm COMPARISON: Prior study dated: Report from 12/16/2023 . MRI from 01/10/2024. FINDINGS: BRAIN PARENCHYMA: No intra- or extra-axial hemorrhage. No evidence of acute infarct. No intracranial mass or mass effect. There is preservation of the rodriguez/white matter interface. Posterior fossa structures are unremarkable. Patchy periventricular and deep white matter hypoattenuation is consistent with mild small vessel ischemic change. CSF SPACES: Proportional prominence of the ventricles and sulcal spaces is consistent with mild cerebral volume loss. No hydrocephalus. Basal cisterns are patent. CALVARIUM, SKULL BASE, PARANASAL SINUSES AND MASTOID AIR CELLS: The mastoid air cells and visualized paranasal sinuses are well aerated. The calvarium is intact. No discrete lytic or blastic abnormalities. ORBITS: Both globes, extraocular muscles, optic nerves and retrobulbar fat appear unremarkable. CT/STROKE Brain/Head without Cont IMPRESSION: No acute intracranial finding. N.B. : The above Results were Read Back by Presley Noel MD to Gucci Liang MD, and understanding confirmed on 04/22/2024 23:52:12 (ET). Electronically Signed: Presley Noel MD at 23:52 EDT ,
--- NOTE | 2024-04-22 23:35 | EKG12_ITS ---
Test Reason : STROKE Blood Pressure : / mmHG Vent. Rate : 126 BPM Atrial Rate : 126 BPM P-R Int : 120 ms QRS Dur : 102 ms QT Int : 372 ms P-R-T Axes : 000 -03 233 degrees QTc Int : 538 ms ATRIAL TACHYCARDIA WITH 2:1 CONDUCTION Sinus tachycardia with occasional Premature ventricular complexes Marked ST abnormality, possible inferior subendocardial injury Marked ST abnormality, possible anteroseptal subendocardial injury Abnormal ECG Confirmed by Shimon Clemente ([id number]), pictures editor ELISEO PATTERSON ([id number]) on 04/24/2024 2:20:39 PM Referred By: Confirmed By:Shimon Clemente
--- NOTE | 2024-04-22 23:35 | CT_ITS ---
We are attempting to reach an attending provider to discuss findings. An addendum with communication details will be sent when the communication is complete. INDICATION: Neuro deficit, acute, stroke suspected EXAMINATION: CTA HEAD AND CTA NECK TECHNIQUE: Noncontrast axial images were obtained of the brain previously. Subsequently, routine carotid CT angiogram protocol was performed without and with IV contrast. In addition, images were obtained of the [place]. NASCET criteria using the distal ICAs for comparison were used for evaluation of stenoses. 3D reconstructions were reviewed. The protocol utilizes one or more of the following dose reduction techniques: automated exposure control, adjustment of mA and/or kV according to patient size,and/or use of iterative reconstruction technique. IV Contrast dosage and agent: 100 mL of Isovue-370 COMPARISON: No relevant prior comparison study available FINDINGS: --CTA NECK: AORTIC ARCH AND BRANCHES: Normal anatomy, patent. 2 vessel branching configuration. RIGHT CCA: No occlusion, significant stenosis or dissection. RIGHT ICA: No occlusion, significant stenosis or dissection. LEFT CCA: No occlusion, significant stenosis or dissection. LEFT ICA: No occlusion, significant stenosis or dissection. RIGHT VERTEBRAL ARTERY: No occlusion, significant stenosis or dissection. LEFT VERTEBRAL ARTERY: No occlusion, significant stenosis or dissection. The left vertebral artery is dominant. NECK SOFT TISSUES: Multiple thyroid nodules. The dominant measures up to 0.9 cm and the left lobe. No specific follow-up recommended. --CTA HEAD: --Anterior circulation: ICAs: No significant stenosis at the intracranial/visualized segments. ACAs: No significant stenosis at the visualized segments. ACOM: Present. MCAs: No significant stenosis at the visualized segments. --Posterior circulation: PCOMs: Patent bilaterally. landing gear mechanic: No significant stenosis at the visualized segments. BASILAR ARTERY: No significant stenosis. VERTEBRAL ARTERIES: No significant stenosis at the intradural/visualized segments. The left vertebral artery is dominant. No evidence of intracranial aneurysm or vascular malformation. CT/STROKE CTA Head AND Neck W/Con IMPRESSION: No large vessel occlusion or flow-limiting stenosis. Electronically Signed: Presley Noel MD at 0:10 EDT ,
--- NOTE | 2024-04-22 23:36 | ED.VIS.STROK ---
HPI History of Present Illness Chief Complaint: Stroke Alert Informant: patient and EMS Narrative Narrative: Prehospital stroke alert called by EMS, they were called because noticed that this patient did not seem to be right she was speaking funny. He last saw her 9:30 PM normal without this issue, EMS brings her around 11:30 PM to our door. They detected right-sided facial droop that was mild, right-sided weakness mild, and trouble speaking. Patient has A-fib on the monitor with mild RVR, patient states she knows about having A-fib in the past and is on apixaban for that which she last took this morning. She denies having a headache right now, chest pain, dyspnea. However --after patient arrived in the room back from CT my daughter is present I spoke with her to give me a very different story. The was in the there but he has dementia and his history may not be reliable. The patient has Parkinson's, this is a new diagnosis within the past year, they have been tweaking her medications recently and the carbidopa-levodopa she is now taking 4 times per day and after she takes the pill oftentimes she is a little disoriented and confused and has trouble talking similar to how she has been tonight. It is better right now. She also does have chronic weakness in her left lower extremity that is at baseline right now due to lumbar spinal stenosis that she has been diagnosed with pain and is being followed by specialist. Recently, she has been constipated and her abdomen was lumpy and uncomfortable. Therefore her doctor prescribed her polyethylene glycol to start drinking this morning when she started doing around 930 or 10, the daughter saw her around 10 or 1030 and she was normal at her baseline at that time. She has had some memory issues but not diagnosed with Parkinson's dementia at this point in time. She was drinking a polyethylene glycol all day, she was not necessarily drinking excess fluids or more than she usually does which is poor to begin with, and after taking her pills tonight, she called her daughter and told her that she felt like she needed to go to the hospital because she was just feeling poorly, had a mild diffuse headache, and felt palpitations. She has had a couple bowel movements since drinking the flush today, and the patient states they were both fairly large and it made her abdomen feel better. The daughter states that she seems to be relatively at her baseline right now neurologically except for just looking like she does not feel well. [facility] Medical History Factor V Leiden mutation Generalized weakness Chronic anticoagulation History of atrial fibrillation History of Parkinson's disease Fall Anxiety Concussion Essential hypertension Fall Presbycusis of both ears Osteopenia Malnourished Anemia Anterolisthesis Segmental and somatic dysfunction of thoracic region Vasovagal near syncope Insomnia Allergic rhinitis Migraine Hyperlipidemia Gastroesophageal reflux disease Hypertension Deep vein thrombosis Obstructive sleep apnea Depression Osteoarthritis Factor 5 Leiden mutation, heterozygous Open wound of left lower leg with complication Fall as cause of accidental injury at home as place of occurrence Wears hearing aid Wears glasses Depression Anxiety Open wound Walker as ambulation aid DVT (deep venous thrombosis) High cholesterol Injury of back Injury of head and neck Migraine headache Syncope Gastric reflux Non-smoker CPAP (continuous positive airway pressure) dependence History of pain when walking History of edema Hx of echocardiogram History of stress test Cardiology follow-up encounter History of atrial fibrillation Cellulitis of left lower leg Skin necrosis 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 lower leg with complication Hematoma of left lower extremity Vision problems Cataract Back pain Segmental and somatic dysfunction of pelvic region Segmental and somatic dysfunction of lumbar region Scoliosis of lumbar spine CKD (chronic kidney disease) History of DVT (deep vein thrombosis) VALENTIN (obstructive sleep apnea) Paroxysmal atrial fibrillation Long-term use of high-risk medication Family history of coronary artery disease Family history of CVA Family history of hypertension penitentiary use of drug Traumatic ulcer of left lower extremity Atrial fibrillation CKD (chronic kidney disease) Obesity, Class III, BMI 40-49.9 (morbid obesity) Hypertension Head injury without concussion or intracranial hemorrhage Fall due to ice or snow Home Medications ?Medication ?Instructions ?Recorded ?Last Taken ?Type montelukast 10 mg tablet 10 mg PO DAILY Allergies 09/29/13 05/28/22 History omeprazole 20 mg capsule,delayed 20 mg PO DAILY GERD 09/29/13 05/28/22 History release amitriptyline 25 mg tablet 25 mg PO QHS Mood 10/25/19 05/27/22 History galcanezumab-gnlm 120 mg/mL 120 mg subcut QMONTH Migraines 10/25/19 05/23/22 08:00 History subcutaneous syringe (Emgality) multivitamin 1 tab PO DAILY Supplement 04/26/20 05/27/22 History divalproex 500 mg tablet,extended 500 mg PO QHS headache 01/31/21 05/27/22 History release 24 hr (Depakote ER) ergocalciferol (vitamin D2) 1,250 1,250 mcg PO DAILY supplement 11/24/21 05/27/22 07:00 History mcg (50,000 unit) capsule acetaminophen 500 mg tablet 1,000 mg (2 x 500 mg) PO Q8H PRN 06/12/22 Unknown Rx PRN pain #1 TAB apixaban 5 mg tablet 5 mg PO BID Blood thinner #60 tabs 06/12/22 Unknown Rx citalopram 20 mg tablet 20 mg PO DAILY #30 tabs 06/12/22 Unknown Rx ferrous sulfate 325 mg (65 mg 325 mg PO DAILY supplement 09/12/22 Unknown History iron) tablet carbidopa 25 mg-levodopa 100 mg 2 tab PO 4X/DAY 12/17/23 Unknown History tablet levocetirizine 5 mg tablet 5 mg PO DAILY 12/17/23 Unknown History potassium chloride 20 mEq 20 meq PO DAILY 12/17/23 Unknown History tablet,extended release(part/cryst) ondansetron 4 mg disintegrating 4 mg PO DAILY PRN nausea and 04/22/24 Unknown History tablet vomiting sennosides 8.6 mg-docusate sodium PO 04/22/24 Unknown History 50 mg tablet (Stool Softener-Stimulant Laxative) verapamil 120 mg 24 hr 240 mg PO DAILY 04/22/24 Unknown History capsule,extended release Allergy/AdvReac Type Severity Reaction Status Date / Time cefdinir Allergy Hives Verified 04/23/24 00:07 diphenhydramine HCl (From Allergy Hives Verified 04/23/24 00:07 Benadryl) Sulfa (Sulfonamide Allergy Hives Verified 04/23/24 00:07 Antibiotics) Family History Brother CAD (coronary artery disease) Mother CVA (cerebral vascular accident) CAD (coronary artery disease) Son Hypertension Daughter Hypertension Other Arthritis Cancer Diabetes Family history of CVA Family history of coronary artery disease Family history of hypertension Heart disease High cholesterol Kidney disease Thyroid disorder Surgical History History of bilateral knee replacement History of cholecystectomy History of incision and drainage History of left hip hemiarthroplasty History of total hysterectomy Hx of cataract extraction Social History household members: spouse housing: house number of children: 2 current occupational status: retired current occupational exposures/hazards: No pets and animals: No Smoking Status: Never smoker alcohol intake: never substance use type: does not use caffeine: Yes Type: tea what type of physical activity do you participate in: none seatbelt use: always do you feel safe at home: Yes additional social history: Does Not Take Aspirin Does Not Take Ibuprofen ROS ROS ED Constitutional Constitutional ED: Denies chills or fever(s) Eyes Eyes: Denies change in vision or diplopia ENT ENT ED: Denies rhinorrhea or sore throat Cardiovascular Cardiovascular: Reports palpitations; Denies chest pain Respiratory/Chest Respiratory/Chest: Denies cough or dyspnea Gastrointestinal Gastrointestinal: Denies abdominal pain, diarrhea, nausea or vomiting Genitourinary Genitourinary ED: Denies dysuria or hematuria Musculoskeletal Musculoskeletal: Denies back pain or neck pain Integumentary Denies abscess or rash Neurologic Neurologic: Reports as per HPI, abnormal speech, headache(s) and weakness; Denies paresthesias Psychiatric Psychiatric: Denies anxiety or suicidal thoughts EXAM Physical Exam Const Vital Signs: 04/22/24 23:34 04/22/24 23:35 04/22/24 23:35 Temperature Temperature Source Pulse Rate 132 H 129 H Respiratory Rate 12 19 H Blood Pressure 125/72 H 125/72 H Blood Pressure Mean 89 89 Pulse Ox 100 100 100 Oxygen Delivery Method Room Air Room Air Room Air 04/22/24 23:40 04/22/24 23:58 04/23/24 00:05 Temperature 0 F L Temperature Source Temporal Pulse Rate 130 H 120 H 120 H Respiratory Rate 0 L 19 H 17 Blood Pressure 109/59 L 125/72 H 113/71 Blood Pressure Mean 75 89 85 Pulse Ox 100 99 100 Oxygen Delivery Method Room Air Room Air Room Air 04/23/24 00:19 04/23/24 00:34 04/23/24 01:00 Temperature Temperature Source Pulse Rate 77 77 78 Respiratory Rate 17 17 18 Blood Pressure 114/84 H 114/84 H 120/70 Blood Pressure Mean 94 94 86 Pulse Ox 100 100 96 Oxygen Delivery Method Room Air Room Air Room Air 04/23/24 02:00 Temperature Temperature Source Pulse Rate 71 Respiratory Rate 16 Blood Pressure 130/79 H Blood Pressure Mean 96 Pulse Ox 99 Oxygen Delivery Method Room Air Positive well nourished and well developed General Appearance ED: well developed and NAD HEENT Reports moist mucous membranes normocephalic and atraumatic Eyes PERRL and EOMs intact bilaterally Neck full ROM and supple Resp normal respiratory effort and clear to auscultation bilaterally Cardio Rate: tachycardic Rhythm: abnormal rhythm irregularly irregular GI non-tender and non-distended Auscultation: normoactive bowel sounds Palpation: soft Back/Spine no CVA tenderness General Back: other FROM Extremity normal to inspection General Extremety ED: Negative for edema, pulses abnormal or tenderness General Extremity: Negative for edema or pulses abnormal Neuro oriented x3 and CN's II-XII intact bilaterally Emily Coma Scale: document GCS findings Spontaneous Obeys Commands Oriented 15 Sensorium / Orientation: awake and alert Skin no rashes or lesions noted and no wounds NIHSS NIHSS Initial: 1a Level of Consciousness: 0 1b LOC Questions (Score 2 if aphasic/stupor): 0 1c LOC Commands (Only score 1st attempt): 0 2 Best Gaze (If aphasic, use reflexive mvmts.): 0 3 Visual: 0 4 Facial Palsy: 0 5 Motor Arm Right (UN = amputation/fusion): 0 5 Motor Arm Left: 0 6 Motor Leg Right: 0 6 Motor Leg Left: 2 7 Limb ataxia (Only + if out of proportion): 0 8 Sensory (Aphasia/stupor=0 or 1, coma=2): 0 9 Best Language: 0 10 Dysarthria (mute, coma=2, intubated=UN): 0 11 Extinction and Inattention (only scored if +): 0 Total Score: 2 MDM MDM MDM Narrative Medical decision making narrative: Before talking to the daughter, stroke alert protocol was already entered although her NIH does not appear to show a right-sided stroke. She is not aphasic or dysarthric, names all the items and read all the words on the NIH cards very well and appropriately. Her CT and CTA are normal, I reviewed the images and report which I agree with. I spoke with the radiologist about both of them. I spoke with stroke neurologist, given that she is anticoagulated on Eliquis which she has taken today, and has no LVO, no emergent transfer is indicated and thrombolytics are not indicated. He agrees. In speaking with the daughter, my concern is that this sounds more like dehydration. She is in agreement. The EMS EKG appeared to show atrial fibrillation, but now her EKG appears to show sinus tachycardia. Her history does indicate that her atrial fibrillation is paroxysmal, and she does not feel palpitations anymore. Therefore while waiting for the workup to return given her IV fluids. Her workup essentially is showing hypokalemia. Her creatinine is up a little. She takes 20 mill equivalents of potassium once daily at home as well as Lasix. I think her hypokalemia is a combination of her diarrhea all day today and the diuretic. Therefore we started replacement orally and parenterally. Her heart rate improved down to 71 with the above treatments and fluids. I reevaluated her, she was very weak and needed assistance getting to bedside commode. She prefers to stay in the hospital due to feeling weak and having so much diarrhea from the polyethylene glycol that she ingested all day today. Will discuss with hospitalist for inpatient observation, I do not think this patient is having an acute stroke or TIA. History & Record Review Discussion w/independent historian: EMS personnel, Patient and Family Lab Data Attestation: I reviewed the patient's lab results. Labs: Laboratory Results - last 24 hr 04/22/24 23:50 WBC 7.9 RBC 4.04 L Hgb 12.5 Hct 36.8 L MCV 91.1 MCH 30.9 MCHC 34.0 RDW Std Deviation 44.2 H RDW Coeff of Shannon 13.2 Plt Count 178 MPV 9.8 Immature Gran % (Auto) 0.100 Neut % (Auto) 75.7 H Lymph % (Auto) 15.4 L [place] % (Auto) 8.2 Eos % (Auto) 0.3 Baso % (Auto) 0.3 Absolute Neuts (auto) 6.0 Absolute Lymphs (auto) 1.22 Nucleated RBC % 0 PT 17.0 H INR 1.4 APTT 31.2 Sodium 140 Potassium 3.0 L Chloride 104 Carbon Dioxide 23.0 Anion Gap 13 BUN 11 Creatinine 1.28 H Estim Creat Clear Calc 33.80 Est GFR (MDRD) Af Amer 52 L Est GFR (MDRD) Non-Af 43 L BUN/Creatinine Ratio 8.6 L Glucose 169 H Calcium 9.1 Troponin I High Sens 19 Radiography Diagnostic Testing: Clinical Impression(s) from Imaging Studies Chest X-Ray 04/22/24 00:45 IMPRESSION: No acute pulmonary finding. Electronically Signed: Presley Noel MD at 1:32 EDT , Brain CT 04/22/24 23:35 IMPRESSION: No acute intracranial finding. N.B. : The above Results were Read Back by Presley Noel MD to Gucci Liang MD, and understanding confirmed on 04/22/2024 23:52:12 (ET). Electronically Signed: Presley Noel MD at 23:52 EDT , Head/Neck CTA 04/22/24 23:35 IMPRESSION: No large vessel occlusion or flow-limiting stenosis. Electronically Signed: Presley Noel MD at 0:10 EDT , ADDENDUM: 04/23/24 0017 IMPRESSION: No large vessel occlusion or flow-limiting stenosis. N.B. : The above Results were Read Back by Presley Noel MD to Gucci Liang MD, and understanding confirmed on 04/23/2024 00:10:23 (ET). Electronically Signed: Presley Noel MD at 0:10 EDT , 1 view chest x-ray my interpretation negative. I reviewed head CT images as well as CTA head and neck images as well as the report which I agree with. Rhythm Strip Rhythm Strip: A-fib (appearance) Rate: 115 Ectopy: PVC(s) EKG Initial EKG: Attestation: I personally reviewed and interpreted this EKG as follows: Interpretation: Sinus Rhythm (w/ PVCs), No Acute Injury Pattern and Non-Specific ST Changes Management Discussion w/another healthcare provider: Hospitalist, Branch Mechanic (osu stroke neuro telemed) and Radiologist Stroke Documentation Questions Stroke Team Activated: Yes Reviewed Inclusion/Exclusion criteria: Yes Was Patient considered for Endovascular Intervention?: No-CTA negative, determined not to be an endovascular candidate IV Thrombolytic Administered: No (anticoagulated apixaban) Critical Care Time Critical Care Time: Yes Critical care time (excluding procedures): 30-74 minutes (36 min), Including time spent:, Discussing w/Patient &/or Family/Communications Administrator, Discussing w/Consultants, Arranging Admission or Transfer and Performing Direct Patient Care at Bedside Discharge Plan Triage Chief Complaint: Stroke Alert ED Provider: Gucci Liang Dx/Rx/DC Orders Clinical Impression: Hypokalemia, Generalized weakness, Acute diarrhea Prescriptions: No Action amitriptyline 25 mg tablet 25 mg PO QHS Emgality Syringe 120 mg/mL syringe 120 mg SC QMONTH multivitamin Tablet 1 tab PO DAILY ergocalciferol (vitamin D2) 1,250 mcg (50,000 unit) capsule 1,250 mcg PO DAILY omeprazole 20 MG capsule 20 mg PO DAILY montelukast 10 MG tablet 10 mg PO DAILY divalproex [Depakote ER] 500 mg Tablet Extended Release 24 Hr 500 mg PO QHS citalopram 20 mg Tablet 20 mg PO DAILY Qty: 30 0RF acetaminophen 500 mg tablet 1,000 mg PO Q8H PRN PRN (Reason: pain) Qty: 1 0RF Rx Instructions: 2 tabs every 8 hours as needed for pain. apixaban 5 mg tablet 5 mg PO BID Qty: 60 0RF Rx Instructions: 1 tab every 12 H ferrous sulfate 325 mg (65 mg iron) Tablet 325 mg PO DAILY carbidopa-levodopa 25-100 mg tablet 2 tab PO 4X/DAY Patient Comments: 2 TABS 3X/DAY AND ONE 1 TAB AT BED levocetirizine 5 mg tablet 5 mg PO DAILY potassium chloride 20 mEq tablet,ER particles/crystals 20 meq PO DAILY ondansetron 4 mg tablet,disintegrating 4 mg PO DAILY PRN (Reason: nausea and vomiting) sennosides-docusate sodium [Stool Softener-Stimulant Laxat] 8.6-50 mg tablet PO Patient Comments: TAKE 1 TABLET BY MOUTH 2ITIMES A DAY. START AFTER GOLYTELY verapamil 120 mg capsule,ext rel. pellets 24 hr 240 mg PO DAILY Primary Care Provider: Desmond Riojas Chi Referrals: Desmond Riojas Chi, MD [Primary Care Provider] - Print Language: Syrian Disposition Disposition: Acute Care Hospital [id number]
[2024-04-22 23:40] VITALS: BP 109/59; PULSE 130; RESP 0; TEMP -17.7; TEMP 0; O2SAT 100; BMI 27.3
[2024-04-22 23:57] LABS: Absolute Lymphocyte Count 1.22 X10^3/uL (0.83-4.51); Basophil# 0.02 X10^3/uL; Basophil% 0.3 % (0-1); Eosinophil# 0.02 X10^3/uL; Eosinophils% 0.3 % (0-5); Hematocrit 36.8 % (37-47); Hemoglobin 12.5 g/dL (12.0-15.0); Lymphocyte # 1.22 X10^3/ul (0.83-4.51); Lymphocyte % 15.4 % (19-41); Mean Corpuscular Hgb 30.9 pg (27.0-32.0); Mean Corpuscular Volume 91.1 fL (81-99); Mean Platelet Vol. 9.8 fl (6.2-12.0); Monocyte# 0.65 X10^3/uL; Monocyte% 8.2 % (0-10); NRBC Flagged by Analyzer 0 % (0-5); Neutrophil % 75.7 % (47-70); Platelet Count 178 K/mm3 (150-450); RBC Distribution Width CV 13.2 % (11.6-14.6); RBC Distribution Width SD 44.2 fl (35.1-43.9); Red Blood Count 4.04 M/mm3 (4.2-5.4); White Blood Count 7.9 K/mm3 (4.4-11.0)
[2024-04-22 23:58] VITALS: BP 125/72; PULSE 120; RESP 19; O2SAT 99
[2024-04-23] VITALS (10 sets, daily range): BP systolic 108–161; BP diastolic 58–84; PULSE 65–120; RESP 16–18; TEMP 36.1–36.7; O2SAT 96–100; BMI 27.3; BMI 28.8
[2024-04-23 00:08] LABS: International Normalized Ratio 1.4
[2024-04-23 00:09] LABS: Partial Thromboplast Time 31.2 Seconds (24.1-36.2)
[2024-04-23 00:19] LABS: Anion Gap 13 (5-15); BUN 11 mg/dL (7-18); BUN/Creat Ratio 8.6 RATIO (10-20); Calcium,Total 9.1 mg/dL (8.5-10.1); Chloride 104 mmol/L (98-107); Creatinine, Serum 1.28 mg/dL (0.55-1.02); EST Glomerular Filtration Rate 43 mL/min (>60); Est Glom Filt Rate - Afr Amer 52 mL/min (>60); Glucose 169 mg/dL (74-106); Sodium Level 140 mmol/L (136-145); Troponin-I HS 19 pg/mL (3.0-54.0)
[2024-04-23] MEDS: 0.9% Normal Saline (1000mL) 1,000 ML 999 ML IV (00:50)
[2024-04-23] MEDS: Potassium Chloride Oral Tablet 20 MEQ 40 MEQ PO (01:11)
[2024-04-23] MEDS: Potassium Chloride 10mEq/100mL 10 MEQ/100 ML IV.SOLN. 100 MEQ IV BOLUS (01:43)
--- NOTE | 2024-04-23 02:56 | PCM.HP.STD ---
[facility] - General General Date of Service: 04/23/24 Chief Complaint: weakness [facility] Narrative DIONTE BRADFORD, is a 74 F who presents with weakness. This is a 74-year-old female with Parkinson disease where was concerned about right-sided weakness and EMS was contacted. Patient was brought to the hospital and it was found out that the patient was not having right-sided weakness and never did and that the was confused because he apparently has very severe dementia. Patient was weak, however. She was weak because she has been taking colon prep for constipation. Patient was told by her primary care provider that the iliac crests are palpated on the sides of her abdomen with stool and that she needed to be treated for constipation and received colon prep. Patient compliantly took the colon prep and the result was very severe diarrhea. Patient still has those lumps which are the iliac crests. Patient received IVF and potassium. [facility] Medical History Factor V Leiden mutation Generalized weakness Chronic anticoagulation History of atrial fibrillation History of Parkinson's disease Fall Anxiety Concussion Essential hypertension Fall Presbycusis of both ears Osteopenia Malnourished Anemia Anterolisthesis Segmental and somatic dysfunction of thoracic region Vasovagal near syncope Insomnia Allergic rhinitis Migraine Hyperlipidemia Gastroesophageal reflux disease Hypertension Deep vein thrombosis Obstructive sleep apnea Depression Osteoarthritis Factor 5 Leiden mutation, heterozygous Open wound of left lower leg with complication Fall as cause of accidental injury at home as place of occurrence Wears hearing aid Wears glasses Depression Anxiety Open wound Walker as ambulation aid DVT (deep venous thrombosis) High cholesterol Injury of back Injury of head and neck Migraine headache Syncope Gastric reflux Non-smoker CPAP (continuous positive airway pressure) dependence History of pain when walking History of edema Hx of echocardiogram History of stress test Cardiology follow-up encounter History of atrial fibrillation Cellulitis of left lower leg Skin necrosis 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 lower leg with complication Hematoma of left lower extremity Vision problems Cataract Back pain Segmental and somatic dysfunction of pelvic region Segmental and somatic dysfunction of lumbar region Scoliosis of lumbar spine CKD (chronic kidney disease) History of DVT (deep vein thrombosis) VALENTIN (obstructive sleep apnea) Paroxysmal atrial fibrillation Long-term use of high-risk medication Family history of coronary artery disease Family history of CVA Family history of hypertension group home use of drug Traumatic ulcer of left lower extremity Atrial fibrillation CKD (chronic kidney disease) Obesity, Class III, BMI 40-49.9 (morbid obesity) Hypertension Head injury without concussion or intracranial hemorrhage Fall due to ice or snow Home Medications ?Medication ?Instructions ?Recorded ?Last Taken ?Type montelukast 10 mg tablet 10 mg PO DAILY Allergies 09/29/13 05/28/22 History omeprazole 20 mg capsule,delayed 20 mg PO DAILY GERD 09/29/13 05/28/22 History release amitriptyline 25 mg tablet 25 mg PO QHS Mood 10/25/19 05/27/22 History galcanezumab-gnlm 120 mg/mL 120 mg subcut QMONTH Migraines 10/25/19 05/23/22 08:00 History subcutaneous syringe (Emgality) multivitamin 1 tab PO DAILY Supplement 04/26/20 05/27/22 History divalproex 500 mg tablet,extended 500 mg PO QHS headache 01/31/21 05/27/22 History release 24 hr (Depakote ER) ergocalciferol (vitamin D2) 1,250 1,250 mcg PO DAILY supplement 11/24/21 05/27/22 07:00 History mcg (50,000 unit) capsule acetaminophen 500 mg tablet 1,000 mg (2 x 500 mg) PO Q8H PRN 06/12/22 Unknown Rx PRN pain #1 TAB apixaban 5 mg tablet 5 mg PO BID Blood thinner #60 tabs 06/12/22 Unknown Rx citalopram 20 mg tablet 20 mg PO DAILY #30 tabs 06/12/22 Unknown Rx ferrous sulfate 325 mg (65 mg 325 mg PO DAILY supplement 09/12/22 Unknown History iron) tablet carbidopa 25 mg-levodopa 100 mg 2 tab PO 4X/DAY 12/17/23 Unknown History tablet levocetirizine 5 mg tablet 5 mg PO DAILY 12/17/23 Unknown History potassium chloride 20 mEq 20 meq PO DAILY 12/17/23 Unknown History tablet,extended release(part/cryst) ondansetron 4 mg disintegrating 4 mg PO DAILY PRN nausea and 04/22/24 Unknown History tablet vomiting sennosides 8.6 mg-docusate sodium PO 04/22/24 Unknown History 50 mg tablet (Stool Softener-Stimulant Laxative) verapamil 120 mg 24 hr 240 mg PO DAILY 04/22/24 Unknown History capsule,extended release Allergy/AdvReac Type Severity Reaction Status Date / Time cefdinir Allergy Hives Verified 04/23/24 00:07 diphenhydramine HCl (From Allergy Hives Verified 04/23/24 00:07 Benadryl) Sulfa (Sulfonamide Allergy Hives Verified 04/23/24 00:07 Antibiotics) Family History Brother CAD (coronary artery disease) Mother CVA (cerebral vascular accident) CAD (coronary artery disease) Son Hypertension Daughter Hypertension Other Arthritis Cancer Diabetes Family history of CVA Family history of coronary artery disease Family history of hypertension Heart disease High cholesterol Kidney disease Thyroid disorder Surgical History History of left hip hemiarthroplasty History of incision and drainage Hx of cataract extraction History of total hysterectomy History of bilateral knee replacement History of cholecystectomy Social History household members: spouse housing: house number of children: 2 current occupational status: retired current occupational exposures/hazards: No pets and animals: No Smoking Status: Never smoker alcohol intake: never substance use type: does not use caffeine: Yes Type: tea what type of physical activity do you participate in: none seatbelt use: always do you feel safe at home: Yes additional social history: Does Not Take Aspirin Does Not Take Ibuprofen ROS ROS Narrative All review of systems were negative except as mentioned above in the history of present illness and the other review of systems. Vital Signs Vital Signs Vital Signs: 04/22/24 23:34 04/22/24 23:35 04/22/24 23:35 Temperature Temperature Source Pulse Rate 132 H 129 H Respiratory Rate 12 19 H Blood Pressure 125/72 H 125/72 H Blood Pressure Mean 89 89 Pulse Ox 100 100 100 Oxygen Delivery Method Room Air Room Air Room Air 04/22/24 23:40 04/22/24 23:58 04/23/24 00:05 Temperature -17.7 C L Temperature Source Temporal Pulse Rate 130 H 120 H 120 H Respiratory Rate 0 L 19 H 17 Blood Pressure 109/59 L 125/72 H 113/71 Blood Pressure Mean 75 89 85 Pulse Ox 100 99 100 Oxygen Delivery Method Room Air Room Air Room Air 04/23/24 00:19 04/23/24 00:34 04/23/24 01:00 Temperature Temperature Source Pulse Rate 77 77 78 Respiratory Rate 17 17 18 Blood Pressure 114/84 H 114/84 H 120/70 Blood Pressure Mean 94 94 86 Pulse Ox 100 100 96 Oxygen Delivery Method Room Air Room Air Room Air 04/23/24 02:00 04/23/24 02:46 Temperature 36.7 C Temperature Source Pulse Rate 71 72 Respiratory Rate 16 16 Blood Pressure 130/79 H 161/77 H Blood Pressure Mean 96 105 Pulse Ox 99 99 Oxygen Delivery Method Room Air Weight Weight: 68 kg Body Mass Index (BMI) 27.3 Physical Exam Narrative - Physical Exam General: Alert, Oriented x3, Cooperative HEENT: Atraumatic, PERRLA, EOMI, Normocephalic Oral: Moist Mucosa, No Gingival or Mucosal Lesions/ Ulcerations Neck: Supple, No JVD, Negative Carotid Bruits Lungs: Clear to auscultation, Normal air movement Cardiovascular: Regular rate, Normal S1, Normal S2, No murmurs Abdomen: Bowel Sounds Present, Soft, Non Tender, Non-Distended, No Hepato-splenomegaly. Patient pointed to the areas on her flanks where she was told by her primary care provider that that was constipation. She was indicating her iliac crests. Extremities: No clubbing, No cyanosis, No edema, Capillary Refill Less than 3 Seconds Skin: No rashes, No breakdown Musculoskeletal: No Tenderness to Palpation of Joints or Extremities Neurological: Neuro grossly intact Psych/Mental Status: Normal Affect, Appropriate Results Lab / Micro Data 04/22/24 23:50 04/22/24 23:50 Labs: Laboratory Results - last 24 hr 04/22/24 23:50: WBC 7.9, RBC 4.04 L, Hgb 12.5, Hct 36.8 L, MCV 91.1, MCH 30.9, MCHC 34.0, RDW Std Deviation 44.2 H, RDW Coeff of Shannon 13.2, Plt Count 178, MPV 9.8, Immature Gran % (Auto) 0.100, Neut % (Auto) 75.7 H, Lymph % (Auto) 15.4 L, [place] % (Auto) 8.2, Eos % (Auto) 0.3, Baso % (Auto) 0.3, Absolute Neuts (auto) 6.0, Absolute Lymphs (auto) 1.22, Nucleated RBC % 0, PT 17.0 H, INR 1.4, APTT 31.2, Sodium 140, Potassium 3.0 L, Chloride 104, Carbon Dioxide 23.0, Anion Gap 13, BUN 11, Creatinine 1.28 H, Estim Creat Clear Calc 33.80, Est GFR (MDRD) Af Amer 52 L, Est GFR (MDRD) Non-Af 43 L, BUN/Creatinine Ratio 8.6 L, Glucose 169 H, Calcium 9.1, Troponin I High Sens 19 Rhythm Strip Rhythm Strip: A-fib (appearance) Rate: 115 Ectopy: PVC(s) Imaging Radiology Impression Chest X-Ray 04/22/24 00:45 IMPRESSION: No acute pulmonary finding. Electronically Signed: Presley Noel MD at 1:32 EDT , Brain CT 04/22/24 23:35 IMPRESSION: No acute intracranial finding. N.B. : The above Results were Read Back by Presley Noel MD to Gucci Liang MD, and understanding confirmed on 04/22/2024 23:52:12 (ET). Electronically Signed: Presley Noel MD at 23:52 EDT , Head/Neck CTA 04/22/24 23:35 IMPRESSION: No large vessel occlusion or flow-limiting stenosis. Electronically Signed: Presley Noel MD at 0:10 EDT , ADDENDUM: 04/23/24 0017 IMPRESSION: No large vessel occlusion or flow-limiting stenosis. N.B. : The above Results were Read Back by Presley Noel MD to Gucci Liang MD, and understanding confirmed on 04/23/2024 00:10:23 (ET). Electronically Signed: Presley Noel MD at 0:10 EDT , Assessment & Plan Assessment/Plan (1) Generalized weakness: PLAN: Secondary to voluminous diarrhea from taking colon prep for constipation that led her to be dehydrated in a patient with Parkinson's disease. Plan is to treat her supportively and have physical Occupational Therapy see her. If patient does well with therapy anticipate patient be able to be discharged back home. Initial report of right-sided weakness is incorrect as that was relayed to EMS by her who has severe dementia and had no idea what he is talking about. The patient herself is appropriate and the story of the diarrhea and the weakness was corroborated by her daughter who was at bedside. (2) Acute diarrhea: PLAN: Iatrogenic from colon prep. No additional workup at this time. Patient may benefit for more mild agents for constipation in the future such as MiraLAX, Colace, etc. (3) Hypokalemia: PLAN: Secondary to diarrhea Replaced in ED. Will recheck in the morning as well as a magnesium level. PLAN: Plan Chronic conditions: Chronic migraines: Currently stable. Continue with the divalproex History of PE and factor V Leiden deficiency: Continue with apixaban Parkinson's disease: Continue with Sinemet VTE prophylaxis: Not indicated as patient is already anticoagulated. CODE STATUS: Patient wishes to be DNR Comfort Care arrest. Case discussed with the patient's daughter at bedside. Charges/Coding Visit Charges Inpatient E&M: 67465 Init Hosp L2
[2024-04-23] MEDS: 0.9% Normal Saline (1000mL) 1,000 ML 150 ML IV (03:38)
[2024-04-23] MEDS: 0.9% Saline Lock 10 ML Syringe IV ×2 (03:49→13:28)
[2024-04-23 04:24] LABS: Anion Gap 7 (5-15); BUN 10 mg/dL (7-18); BUN/Creat Ratio 10.2 RATIO (10-20); Calcium,Total 8.6 mg/dL (8.5-10.1); Chloride 106 mmol/L (98-107); Creatinine, Serum 0.98 mg/dL (0.55-1.02); EST Glomerular Filtration Rate 59 mL/min (>60); Est Glom Filt Rate - Afr Amer 71 mL/min (>60); Estimated Creatinine Clearance 45.19 ml/min; Glucose 92 mg/dL (74-106); Magnesium 1.6 mg/dL (1.6-2.6); Potassium 3.2 mmol/L (3.5-5.1); Sodium Level 140 mmol/L (136-145)
[2024-04-23] MEDS: Potassium Chloride Oral Tablet 20 MEQ 60 MEQ PO (05:05)
[2024-04-23] MEDS: Carbidopa/Levodopa 25/100 Tablet PO ×2 (05:52→10:49)
[2024-04-23] MEDS: Pantoprazole Sodium 20 MG Tablet PO (09:06)
[2024-04-23] MEDS: Verapamil SR 240 MG Tablet PO (09:06)
[2024-04-23] MEDS: Potassium Chloride Oral Tablet 20 MEQ PO (09:06)
[2024-04-23] MEDS: Citalopram 20 MG Tablet PO (09:07)
[2024-04-23] MEDS: Multivitamins,Therapeutic Tablet 1 TABLET PO (09:07)
[2024-04-23] MEDS: Montelukast 10 MG Tablet PO (09:07)
[2024-04-23] MEDS: Ferrous Sulfate 325 MG Tablet PO (09:07)
[2024-04-23] MEDS: APIXABAN 5 MG TABLET PO (09:07)
[2024-04-23] MEDS: Loratadine 10 MG Tablet PO (09:07)
--- NOTE | 2024-04-23 12:34 | DCINST_ITS ---
Discharge Instructions Follow Up Care Test Results: Test results from this visit will be discussed in further detail at your follow- up appointment, if applicable. Discharge Plan Admission Admit Date/Time: 04/23/24 02:51 Primary Reason for Your Visit: Diarrhea from GoLytely Attending Provider: Logan Seymour Primary Care Provider: Desmond Riojas Chi Consulting Providers: Vic Flaherty Discharge Orders/Prescriptions Prescriptions: Continued amitriptyline 25 mg tablet 25 mg PO QHS Emgality Syringe 120 mg/mL syringe 120 mg SC QMONTH multivitamin Tablet 1 tab PO DAILY ergocalciferol (vitamin D2) 1,250 mcg (50,000 unit) capsule 1,250 mcg PO DAILY omeprazole 20 MG capsule 20 mg PO DAILY montelukast 10 MG tablet 10 mg PO DAILY divalproex [Depakote ER] 500 mg Tablet Extended Release 24 Hr 500 mg PO QHS citalopram 20 mg Tablet 20 mg PO DAILY Qty: 30 0RF acetaminophen 500 mg tablet 1,000 mg PO Q8H PRN PRN (Reason: pain) Qty: 1 0RF Rx Instructions: 2 tabs every 8 hours as needed for pain. apixaban 5 mg tablet 5 mg PO BID Qty: 60 0RF Rx Instructions: 1 tab every 12 H ferrous sulfate 325 mg (65 mg iron) Tablet 325 mg PO DAILY carbidopa-levodopa 25-100 mg tablet 2 tab PO 4X/DAY Patient Comments: 2 TABS 3X/DAY AND ONE 1 TAB AT BED levocetirizine 5 mg tablet 5 mg PO DAILY ondansetron 4 mg tablet,disintegrating 4 mg PO DAILY PRN (Reason: nausea and vomiting) verapamil 120 mg capsule,ext rel. pellets 24 hr 240 mg PO DAILY Changed potassium chloride 20 mEq tablet,ER particles/crystals 40 meq PO DAILY 30 Days Qty: 0 0RF Rx Instructions: 40 mEq, 2 tablet daily for 1 week and then 20 mEq, 1 tablet once daily. Held sennosides-docusate sodium [Stool Softener-Stimulant Laxat] 8.6-50 mg tablet PO Hold Instructions: Hold for diarrhea Patient Comments: TAKE 1 TABLET BY MOUTH 2ITIMES A DAY. START AFTER ALEX Referrals / Follow Up: Desmond Riojas Chi, MD [Primary Care Provider] - Within 2 Weeks Disposition Disposition (needs filled in before D/C Order can be placed): Home, Self Care
--- NOTE | 2024-04-23 12:41 | DS.PCM_ITS ---
Providers Date of Admission: 04/23/24 Date of Discharge: 04/23/24 Primary Care Physician: Dr. Desmond Riojas MD Reason For Visit: WEAKNESS Diagnosis Discharge Diagnosis (1) Generalized weakness: Status: Acute Code(s): R53.1 - Weakness (2) Acute diarrhea: Status: Acute Code(s): R19.7 - Diarrhea, unspecified (3) Hypokalemia: Status: Acute Code(s): E87.6 - Hypokalemia Plan 74-year-old female was admitted with generalized weakness from colon prep solution possible GoLytely for constipation. She came to ER very weak with multiple episodes of diarrhea; loose, watery in consistency. She was admitted to [facility] and felt better with IV fluid restriction. She wants to go home. 1. Generalized weakness secondary to voluminous diarrhea from taking colon prep for constipation that led her to be dehydrated in a patient with Parkinson's disease. Patient was walked in the room and around the nursing station. She did good. (2) Acute diarrhea: Iatrogenic from colon prep. No additional workup at this time. Got better. Patient on senna S at home. Advised to take it as needed for constipation. (3) Hypokalemia: Magnesium 1.6 on low normal. Electrolytes replaced. Patient on potassium supplement 20 mEq daily increased to 40 mEq for the next 1 week. Magnesium sulfate 2 g IV 1 dose. Patient was advised to follow-up with PCP and will need repeat labs in 1 week for hypokalemia. Discharge medication reconciliation done. Discharge follow-up instructions completed. Discharge process discussed with the patient and all questions were answered to patient's satisfaction. Follow with PCP in 1 to 2 weeks Total time spent, exact 35 minutes on discharge meds reconciliation, examination, coordination of care with nurses and ancillary staff, review of imaging and blood test and discussion with the patient on follow-up instructions. Medications at Discharge Home Medications montelukast 10 mg tablet 10 mg PO DAILY Allergies 09/29/13 omeprazole 20 mg capsule,delayed release 20 mg PO DAILY GERD 09/29/13 amitriptyline 25 mg tablet 25 mg PO QHS Mood 10/25/19 galcanezumab-gnlm 120 mg/mL subcutaneous syringe (Emgality) 120 mg subcut QMONTH Migraines 10/25/19 multivitamin 1 tab PO DAILY Supplement 04/26/20 divalproex 500 mg tablet,extended release 24 hr (Depakote ER) 500 mg PO QHS headache 01/31/21 ergocalciferol (vitamin D2) 1,250 mcg (50,000 unit) capsule 1,250 mcg PO DAILY supplement 11/24/21 acetaminophen 500 mg tablet 1,000 mg (2 x 500 mg) PO Q8H PRN PRN pain #1 TAB 06/12/22 apixaban 5 mg tablet 5 mg PO BID Blood thinner #60 tabs 06/12/22 citalopram 20 mg tablet 20 mg PO DAILY #30 tabs 06/12/22 ferrous sulfate 325 mg (65 mg iron) tablet 325 mg PO DAILY supplement 09/12/22 carbidopa 25 mg-levodopa 100 mg tablet 2 tab PO 4X/DAY 12/17/23 levocetirizine 5 mg tablet 5 mg PO DAILY 12/17/23 ondansetron 4 mg disintegrating tablet 4 mg PO DAILY PRN nausea and vomiting 04/22/24 sennosides 8.6 mg-docusate sodium 50 mg tablet (Stool Softener-Stimulant Laxative) PO 04/22/24 verapamil 120 mg 24 hr capsule,extended release 240 mg PO DAILY 04/22/24 potassium chloride 20 mEq tablet,extended release(part/cryst) 40 meq (2 x 20 mEq) PO DAILY 30 days #0 tabs 04/23/24 Hospital Course Summary of Care Provided Hospital Course: Seen and examined. Patient feels better. She had GoLytely for severe constipation and then started having multiple bouts of watery diarrhea. Diarrhea is getting better. She had 2 episodes of soft bowel movement today. Physical exam General: Alert, Oriented x3, Cooperative HEENT: Atraumatic, PERRLA, EOMI, Normocephalic Oral: No Gingival or Mucosal Lesions/ Ulcerations Neck: Supple, No JVD, Negative Carotid Bruits Chest wall/Lungs: Air entry diminished in bilateral lung bases. No crepitation/rhonchi Cardiovascular: Regular rate, Regular Rhythm, Normal S1, Normal S2, No M/G/R Abdomen: Bowel Sounds Present, Soft, Non Tender, Non-Distended. : No dysuria. No renal angle tenderness. No suprapubic tenderness. Extremities: No edema, Capillary Refill Less than 3 Seconds Skin: No rashes, No breakdown Musculoskeletal: No Tenderness to Palpation of Joints or Extremities. Degenerative arthritis of knees and hip joints. Neurological: Cranial nerves II-XII grossly intact, DTR 2+/4. No acute focal neurological deficit. Psych/Mental Status: Normal Affect, Appropriate. Weight / BMI Weight Weight: 157 lb 6.561 oz Body Mass Index (BMI) 28.8 ABG / Lab / Microbiology Data 04/22/24 23:50 04/23/24 03:55 Laboratory: Laboratory Results - last 24 hr 04/22/24 23:50: WBC 7.9, RBC 4.04 L, Hgb 12.5, Hct 36.8 L, MCV 91.1, MCH 30.9, MCHC 34.0, RDW Std Deviation 44.2 H, RDW Coeff of Shannon 13.2, Plt Count 178, MPV 9.8, Immature Gran % (Auto) 0.100, Neut % (Auto) 75.7 H, Lymph % (Auto) 15.4 L, [place] % (Auto) 8.2, Eos % (Auto) 0.3, Baso % (Auto) 0.3, Absolute Neuts (auto) 6.0, Absolute Lymphs (auto) 1.22, Nucleated RBC % 0, PT 17.0 H, INR 1.4, APTT 31.2, Sodium 140, Potassium 3.0 L, Chloride 104, Carbon Dioxide 23.0, Anion Gap 13, BUN 11, Creatinine 1.28 H, Estim Creat Clear Calc 33.80, Est GFR (MDRD) Af Amer 52 L, Est GFR (MDRD) Non-Af 43 L, BUN/Creatinine Ratio 8.6 L, Glucose 169 H , Calcium 9.1, Troponin I High Sens 19 04/23/24 03:55: Sodium 140, Potassium 3.2 L, Chloride 106, Carbon Dioxide 27.0, Anion Gap 7, BUN 10, Creatinine 0.98, Estim Creat Clear Calc 45.19, Est GFR (MDRD) Af Amer 71, Est GFR (MDRD) Non-Af 59 L, BUN/Creatinine Ratio 10.2, Glucose 92, Calcium 8.6, Magnesium 1.6 Radiography Diagnostic Testing: Radiology Impression Chest X-Ray 04/22/24 00:45 IMPRESSION: No acute pulmonary finding. Electronically Signed: Presley Noel MD at 1:32 EDT , Brain CT 04/22/24 23:35 IMPRESSION: No acute intracranial finding. N.B. : The above Results were Read Back by Presley Noel MD to Gucci Liang MD, and understanding confirmed on 04/22/2024 23:52:12 (ET). Electronically Signed: Presley Noel MD at 23:52 EDT , Head/Neck CTA 04/22/24 23:35 IMPRESSION: No large vessel occlusion or flow-limiting stenosis. Electronically Signed: Presley Noel MD at 0:10 EDT , ADDENDUM: 04/23/24 0017 IMPRESSION: No large vessel occlusion or flow-limiting stenosis. N.B. : The above Results were Read Back by Presley Noel MD to Gucci Liang MD, and understanding confirmed on 04/23/2024 00:10:23 (ET). Electronically Signed: Presley Noel MD at 0:10 EDT , Meaningful Use Info Meaningful Use Meaningful Use Diagnoses (Choose all that apply): None applicable Ischemic Stroke Statin Dosing Therapy Reference: STATIN DOSE THERAPY REFERENCE: * Patients > 75 years receive moderate or high dose statin therapy. * Patients 75 years or YOUNGER should receive HIGH intensity statin dose unless contraindicated. You will be required to document reason for non-treatment if statin daily dose does not meet guidelines. HIGH DOSE STATIN THERAPY DAILY Atorvastatin > than or = to 40 mg Rosuvastatin > than or = to 20 mg Amlodipine + Atorvastatin > than or = to 2.5/40 mg Ezetimibe + Simvastatin 10/80 mg Simvastatin 80mg Discharge Plan Admission Admit Date/Time: 04/23/24 02:51 Primary Reason for Your Visit: Diarrhea from GoLytely Attending Provider: Logan Seymour Primary Care Provider: Desmond Riojas Chi Consult[employer] Providers: Vic Flaherty Instructions Additional Instructions / Restrictions: Advised BMP, phosphorus and magnesium in 1 week with PCP. Discharge Orders/Prescriptions Prescriptions: Continued amitriptyline 25 mg tablet 25 mg PO QHS Emgality Syringe 120 mg/mL syringe 120 mg SC QMONTH multivitamin Tablet 1 tab PO DAILY ergocalciferol (vitamin D2) 1,250 mcg (50,000 unit) capsule 1,250 mcg PO DAILY omeprazole 20 MG capsule 20 mg PO DAILY montelukast 10 MG tablet 10 mg PO DAILY divalproex [Depakote ER] 500 mg Tablet Extended Release 24 Hr 500 mg PO QHS citalopram 20 mg Tablet 20 mg PO DAILY Qty: 30 0RF acetaminophen 500 mg tablet 1,000 mg PO Q8H PRN PRN (Reason: pain) Qty: 1 0RF Rx Instructions: 2 tabs every 8 hours as needed for pain. apixaban 5 mg tablet 5 mg PO BID Qty: 60 0RF Rx Instructions: 1 tab every 12 H ferrous sulfate 325 mg (65 mg iron) Tablet 325 mg PO DAILY carbidopa-levodopa 25-100 mg tablet 2 tab PO 4X/DAY Patient Comments: 2 TABS 3X/DAY AND ONE 1 TAB AT BED levocetirizine 5 mg tablet 5 mg PO DAILY ondansetron 4 mg tablet,disintegrating 4 mg PO DAILY PRN (Reason: nausea and vomiting) verapamil 120 mg capsule,ext rel. pellets 24 hr 240 mg PO DAILY Changed potassium chloride 20 mEq tablet,ER particles/crystals 40 meq PO DAILY 30 Days Qty: 0 0RF Rx Instructions: 40 mEq, 2 tablet daily for 1 week and then 20 mEq, 1 tablet once daily. Held sennosides-docusate sodium [Stool Softener-Stimulant Laxat] 8.6-50 mg tablet PO Hold Instructions: Hold for diarrhea Patient Comments: TAKE 1 TABLET BY MOUTH 2ITIMES A DAY. START AFTER ALEX Referrals / Follow Up: Desmond Riojas Chi, MD [Primary Care Provider] - Within 2 Weeks Disposition Disposition (needs filled in before D/C Order can be placed): Home, Self Care Charges/Coding Visit Charges Inpatient E&M: 68054 Disch Hosp >30min
[2024-04-23] MEDS: Magnesium Sulfate 2 GM in Dextrose 5%-Water (100mL Bag) 100 ML IV (13:27)
== END 2024-04-23 14:00 | disposition home or self-care (01) ==
LOC: ED 04-23 02:28 → ICU 04-23 02:59
PROVIDERS: Emergency Provider Emergency Medicine; PCP Family Medicine Geriatric Medicine; Visit Provider Internal Medicine
DX: K52.1 Toxic gastroenteritis and colitis (principal); G20.A1 Parkinson's disease without dyskinesia, without mention of fluctuations; I48.0 Paroxysmal atrial fibrillation; E86.0 Dehydration; R53.1 Weakness; E78.00 Pure hypercholesterolemia, unspecified; I12.9 Hypertensive chronic kidney disease with stage 1 through stage 4 chronic kidney disease, or unspecified chronic kidney disease; N18.9 Chronic kidney disease, unspecified; E87.6 Hypokalemia; D68.51 Activated protein C resistance; Z79.01 Long term (current) use of anticoagulants; Z79.899 Other long term (current) drug therapy; R47.9 Unspecified speech disturbances; R29.810 Facial weakness; K59.00 Constipation, unspecified; Z86.718 Personal history of other venous thrombosis and embolism; G43.909 Migraine, unspecified, not intractable, without status migrainosus; T47.4X5A Adverse effect of other laxatives, initial encounter
CPT/HCPCS: 70450; 70496; 70498; 71045; 80048; 83735; 84484; 85025; 85610; 85730; 93005; 96361; 96365; 96366; 96367; 97162; 97166; 99221; 99285; J7030; J7050; Q9967; A4216; G0378

== ENCOUNTER → 2024-04-25 | Outpatient (CLI) | payer MEDICARE, OTHER, SELFPAY ==
[2024-04-25 12:09] LABS: Absolute Lymphocyte Count 0.98 X10^3/uL (0.83-4.51); Absolute Neutrophil Count 2.9 X10^3/uL (2.0-7.7); Basophil# 0.02 X10^3/uL; Basophil% 0.5 % (0-1); Eosinophil# 0.06 X10^3/uL; Eosinophils% 1.4 % (0-5); Hematocrit 37.9 % (37-47); Hemoglobin 12.3 g/dL (12.0-15.0); Lymphocyte # 0.98 X10^3/ul (0.83-4.51); Lymphocyte % 22.5 % (19-41); Mean Corp Hgb Conc 32.5 g/dL (32-36); Mean Corpuscular Hgb 30.4 pg (27.0-32.0); Mean Corpuscular Volume 93.8 fL (81-99); Mean Platelet Vol. 10.2 fl (6.2-12.0); Monocyte# 0.37 X10^3/uL; Monocyte% 8.5 % (0-10); NRBC Flagged by Analyzer 0 % (0-5); Neutrophil % 66.6 % (47-70); Platelet Count 185 K/mm3 (150-450); RBC Distribution Width CV 13.6 % (11.6-14.6); RBC Distribution Width SD 46.5 fl (35.1-43.9); Red Blood Count 4.04 M/mm3 (4.2-5.4); White Blood Count 4.4 K/mm3 (4.4-11.0)
[2024-04-25 12:47] LABS: AST(SGOT) 17 U/L (15-37); Alanine Aminotransfer ALT/SGPT 7 U/L (13-56); Albumin, Serum 3.5 g/dL (3.2-5.0); Alkaline Phosphatase 69 U/L (45-117); Anion Gap 8 (5-15); BUN 9 mg/dL (7-18); Calcium,Total 9.2 mg/dL (8.5-10.1); Chloride 106 mmol/L (98-107); EST Glomerular Filtration Rate 65 mL/min (>60); Est Glom Filt Rate - Afr Amer 78 mL/min (>60); Globulin 3.6 g/dL (2.2-4.2); Glucose 76 mg/dL (74-106); Magnesium 2.2 mg/dL (1.6-2.6); Phosphorus 2.9 mg/dL (2.5-4.9); Potassium 4.2 mmol/L (3.5-5.1); Protein, Total 7.1 g/dL (6.4-8.2); Sodium Level 141 mmol/L (136-145)
== END | disposition home or self-care (01) ==
LOC: POLAB3 11:39
PROVIDERS: PCP Family Medicine Geriatric Medicine; Visit Provider Family Medicine Geriatric Medicine
DX: I10 Essential (primary) hypertension (principal); E83.42 Hypomagnesemia; E87.6 Hypokalemia
CPT/HCPCS: 36415; 80053; 83735; 84100; 85025

== ENCOUNTER → 2024-04-28 | Outpatient (CLI) | payer MEDICARE, OTHER, SELFPAY ==
--- NOTE | 2024-04-28 11:28 | RAD_ITS ---
STUDY: X-RAY - ABDOMEN/PELVIS REASON FOR EXAM: Female, 74 years old. Constipation. TECHNIQUE: Single AP view of the abdomen / pelvis on 3 images. COMPARISON: None. FINDINGS: Normal bowel gas pattern with air seen to the rectum. No disproportionate dilatation of bowel. Moderate 2 marked amount feces colon. Thoracolumbar spondylosis, mild arthrosis of the right hip and left total hip arthroplasty. No acute abnormality. RAD/Abdomen Single View IMPRESSION: Moderate to marked amount of feces in colon. No acute finding. Electronically Signed: Andrei Bennett MD at 9:57 EDT ,
== END | disposition home or self-care (01) ==
LOC: RAD 11:19
PROVIDERS: PCP Family Medicine Geriatric Medicine; Referring Provider Family Medicine Geriatric Medicine; Visit Provider Family Medicine Geriatric Medicine
DX: K59.00 Constipation, unspecified (principal); R11.2 Nausea with vomiting, unspecified
CPT/HCPCS: 74018

== ENCOUNTER → 2024-05-04 | Outpatient (CLI) | payer MEDICARE, OTHER, SELFPAY ==
--- NOTE | 2024-05-04 13:07 | RAD_ITS ---
INDICATION: FECAL IMPACTION EXAMINATION/TECHNIQUE: X-RAY - XR Abdomen W/ Decub and/or Erect Views COMPARISON: No relevant prior comparison study available FINDINGS: BOWEL GAS PATTERN: Non-obstructive. Mild fecal retention. FREE AIR: Not assessed on a single supine view. ORGANOMEGALY: Not seen. CALCIFICATIONS: No abnormal calcifications observed. LOWER CHEST: No acute pathology. BONES AND SOFT TISSUES: Left hip hemiarthroplasty. Vascular calcifications. RAD/Abd Inc Decub and/or Erect IMPRESSION: Non-obstructive bowel gas pattern. Electronically Signed: Tristan Bell MD at 14:25 EDT ,
== END | disposition home or self-care (01) ==
LOC: RAD 13:06
PROVIDERS: PCP Family Medicine Geriatric Medicine; Referring Provider Family Medicine Geriatric Medicine; Visit Provider Family Medicine Geriatric Medicine
DX: R17 Unspecified jaundice (principal); K56.41 Fecal impaction
CPT/HCPCS: 74019

== ENCOUNTER → 2024-05-09 | Outpatient (CLI) | payer MEDICARE, OTHER, SELFPAY | END | disposition home or self-care (01) | LOC: LAB 11:46 | PROVIDERS: PCP Family Medicine Geriatric Medicine; Referring Provider Family Medicine Geriatric Medicine; Visit Provider Family Medicine Geriatric Medicine | DX: R19.7 Diarrhea, unspecified (principal) | CPT/HCPCS: 82274 ==

== ENCOUNTER → 2024-05-26 | Outpatient (CLI) | payer MEDICARE, OTHER, SELFPAY ==
[2024-05-26 11:07] LABS: Absolute Lymphocyte Count 0.78 X10^3/uL (0.83-4.51); Absolute Neutrophil Count 2.4 X10^3/uL (2.0-7.7); Basophil# 0.03 X10^3/uL; Basophil% 0.9 % (0-1); Eosinophil# 0.04 X10^3/uL; Eosinophils% 1.2 % (0-5); Hematocrit 37.9 % (37-47); Hemoglobin 12.5 g/dL (12.0-15.0); Lymphocyte # 0.78 X10^3/ul (0.83-4.51); Lymphocyte % 22.5 % (19-41); Mean Corpuscular Hgb 30.9 pg (27.0-32.0); Mean Corpuscular Volume 93.6 fL (81-99); Mean Platelet Vol. 9.8 fl (6.2-12.0); Monocyte# 0.25 X10^3/uL; Monocyte% 7.2 % (0-10); NRBC Flagged by Analyzer 0 % (0-5); Neutrophil # 2.35 X10^3/uL (2.7-7.7); Neutrophil % 67.9 % (47-70); Platelet Count 218 K/mm3 (150-450); RBC Distribution Width CV 13.4 % (11.6-14.6); RBC Distribution Width SD 46.5 fl (35.1-43.9); Red Blood Count 4.05 M/mm3 (4.2-5.4); White Blood Count 3.5 K/mm3 (4.4-11.0)
[2024-05-26 11:37] LABS: ALB/GLOB Ratio 1.1 RATIO (0.9-2.4); AST(SGOT) 15 U/L (15-37); Alanine Aminotransfer ALT/SGPT < 6 U/L (13-56); Albumin, Serum 3.6 g/dL (3.2-5.0); Alkaline Phosphatase 63 U/L (45-117); Anion Gap 6 (5-15); BUN 13 mg/dL (7-18); BUN/Creat Ratio 12.9 RATIO (10-20); Calcium,Total 9.7 mg/dL (8.5-10.1); Chloride 108 mmol/L (98-107); Creatinine, Serum 1.01 mg/dL (0.55-1.02); EST Glomerular Filtration Rate 57 mL/min (>60); Est Glom Filt Rate - Afr Amer 69 mL/min (>60); Globulin 3.4 g/dL (2.2-4.2); Glucose 83 mg/dL (74-106); Sodium Level 138 mmol/L (136-145)
== END | disposition home or self-care (01) ==
PROVIDERS: PCP Family Medicine Geriatric Medicine; Referring Provider Student in an Organized Health Care Education/Training Program; Visit Provider Student in an Organized Health Care Education/Training Program
DX: D50.0 Iron deficiency anemia secondary to blood loss (chronic) (principal); R19.5 Other fecal abnormalities
CPT/HCPCS: 36415; 80053; 85025

== ENCOUNTER → 2024-05-29 | Outpatient (CLI) | payer MEDICARE, OTHER, SELFPAY ==
[2024-05-31 15:09] LABS: Calprotectin, Stool 484 ug/g (0-120)
[2024-06-01 05:08] LABS: Pancreatic Elastase, Fecal > 800 (>200)
== END | disposition home or self-care (01) ==
LOC: LABSPEC 09:50
PROVIDERS: PCP Family Medicine Geriatric Medicine; Referring Provider Student in an Organized Health Care Education/Training Program; Visit Provider Student in an Organized Health Care Education/Training Program
DX: R19.7 Diarrhea, unspecified (principal); K58.9 Irritable bowel syndrome, unspecified; D50.0 Iron deficiency anemia secondary to blood loss (chronic)
CPT/HCPCS: 82653; 83630; 83993; 87177; 87209; 87506

== ENCOUNTER → 2024-06-06 | Outpatient (CLI) | payer MEDICARE, OTHER, SELFPAY ==
[2024-06-06 10:28] LABS: Absolute Lymphocyte Count 1.06 X10^3/uL (0.83-4.51); Absolute Neutrophil Count 1.9 X10^3/uL (2.0-7.7); Basophil# 0.03 X10^3/uL; Basophil% 0.9 % (0-1); Eosinophil# 0.07 X10^3/uL; Hematocrit 38.3 % (37-47); Hemoglobin 12.8 g/dL (12.0-15.0); Lymphocyte # 1.06 X10^3/ul (0.83-4.51); Lymphocyte % 30.9 % (19-41); Mean Corp Hgb Conc 33.4 g/dL (32-36); Mean Corpuscular Hgb 31.9 pg (27.0-32.0); Mean Corpuscular Volume 95.5 fL (81-99); Mean Platelet Vol. 9.4 fl (6.2-12.0); Monocyte# 0.32 X10^3/uL; Monocyte% 9.3 % (0-10); NRBC Flagged by Analyzer 0 % (0-5); Neutrophil # 1.94 X10^3/uL (2.7-7.7); Neutrophil % 56.6 % (47-70); Platelet Count 203 K/mm3 (150-450); RBC Distribution Width CV 13.2 % (11.6-14.6); Red Blood Count 4.01 M/mm3 (4.2-5.4); White Blood Count 3.4 K/mm3 (4.4-11.0)
[2024-06-06 11:09] LABS: Vitamin D,25 Hydroxy 89.1 ng/mL
[2024-06-06 11:15] LABS: AST(SGOT) 24 U/L (15-37); Alanine Aminotransfer ALT/SGPT 9 U/L (13-56); Albumin, Serum 3.5 g/dL (3.2-5.0); Alkaline Phosphatase 67 U/L (45-117); Anion Gap 6 (5-15); BUN 13 mg/dL (7-18); BUN/Creat Ratio 14.1 RATIO (10-20); Calcium,Total 9.3 mg/dL (8.5-10.1); Chloride 106 mmol/L (98-107); Creatinine, Serum 0.92 mg/dL (0.55-1.02); EST Glomerular Filtration Rate 63 mL/min (>60); Est Glom Filt Rate - Afr Amer 76 mL/min (>60); Globulin 3.5 g/dL (2.2-4.2); Glucose 77 mg/dL (74-106); Potassium 3.7 mmol/L (3.5-5.1); Sodium Level 141 mmol/L (136-145); Thyroid Stim Hormone (TSH) 0.886 uIU/mL (0.358-3.740)
== END | disposition home or self-care (01) ==
LOC: POLAB3 10:19
PROVIDERS: PCP Family Medicine Geriatric Medicine; Visit Provider Family Medicine Geriatric Medicine
DX: I10 Essential (primary) hypertension (principal); E55.9 Vitamin D deficiency, unspecified
CPT/HCPCS: 36415; 80053; 82306; 84443; 85025

== ENCOUNTER 2024-06-30 05:12 | Day surgery (SDC) | payer MEDICARE, OTHER, SELFPAY ==
[2024-06-30] VITALS (8 sets, daily range): BP systolic 96–127; BP diastolic 62–71; PULSE 64–72; RESP 16–20; TEMP 36.2–36.8; O2SAT 100; BMI 26.6
--- NOTE | 2024-06-30 06:50 | HP.PCM_ITS ---
History and Physical Date of Admission: 06/30/24 DIONTE BRADFORD, is a 74 F who presents to the office today for establishment with [facility]. On interview she tells me that Dr. Riojas had ordered a CT for some subcutaneous nodules on her abdomen and incidentally found intrahepatic biliary dilation and CBD dilation. She is s/p cholecystectomy. She has no signs of obstruction with no jaundice, abdominal pain, n/v or skin itching. She recently had blood work which had normal LFTs and normal bilirubin. Patient has also been having alternating constipation and diarrhea for a few months now which has been bothering her. She has Parkinson and is on Carbidopa-levodopa. PCP has her taking a stool softener and stimulant daily. Recently she was so constipated that Dr. Riojas had her do a bowel prep with golytley and subsequently had to go to the ED for dehydration. She also tells me her stool has been black for a coupe months. She is taking oral iron. CT abdomen pelvis; 04.19.24 Status post cholecystectomy. Intrahepatic biliary ductal dilatation as well as the common bile duct. Correlation with ERCP is recommended. Sigmoid diverticulosis. Moderate sized ventral hernia containing fat. ROS Const Constitutional: Positive for fatigue, frequent falls and headache(s); No fever(s) or weight change ENT ENT: Positive for headache(s) and difficulty swallowing Cardio Cardiology: Positive for leg pain with exertion Gastro GI: Positive for change in bowel habits, constipation, diarrhea, difficulty swallowing and Blood in stool; No abdominal pain, belching, bloating, change in stool character, coffee ground emesis, cramping, heartburn, feeling full early, excessive flatus, incontinent of stools, Vomiting blood/hematemesis, loose stools, Black,tarry stools, nausea/dyspepsia, pain with swallowing, vomiting or other Musc Musculoskeletal: Positive for Arthritis, sciatica, restless legs and leg pain with exertion; No joint pain Skin Skin: No yellowing of the eye or itchy eyes Neuro Neurology: Positive for frequent falls, headache(s), restless legs and tremor(s) Psych Psychiatric: Positive for anxiety and Positive for depression Endo Endocrine: Positive for fatigue; No weight change Aller/Imm Allergy/Immunologic: No itchy eyes Jm/Lymp Hematologic/Lymphatic: Positive for easy bleeding and easy bruising Exam Const General: cooperative and comfortable Nutritional Appearance: average body habitus and well nourished [facility] Head: normal to inspection Ears: hearing grossly normal bilaterally Nose: external nose normal Face and sinus: normal facial exam Eyes General: appearance normal, both eyes and all related structures Neck Neck: normal visual inspection Chest Chest palpation & inspection: normal inspection of the chest Resp Effort & Inspection: normal respiratory effort and able to speak in complete sentences Cardio Palpation: normal PMI GI Inspection: normal to inspection Auscultation: normal bowel sounds Palpation: no hepatosplenomegaly Skin General: no rashes or lesions noted Neuro General: patient alert Extrem General: normal to inspection Psych Affect: normal affect Assessment and Plan Assessment and Plan (1) Iron deficiency anemia due to chronic blood loss: Status: Chronic (2) Diarrhea: Status: Resolved Plan: Patient is having alternating diarrhea and constipation. She takes stool softener and stimulant daily. She takes lactulose as needed. She is having a hard time regulating her bowels. Mentioned that the stimulant could be causing her to have diarrhea. Recommended she start taking miralax 1-2 times per day rather than the softener and stimulant. She will try this and if she is feeling constipated she will call our office for guidance. Patient is aware that the constipation may be a side effect from her medications. She does have dark stools but expalned this could be due to the iron and is less liekly to be a GI bleed as it has been black for months. i will order CBC to monitor hemoglobin. (3) Common bile duct dilation: Status: Acute Plan: Patient had CT abdomen/pelvis and incidentally was found to have cbd and intrahepatic biliary duct dilation. She is s/p cholecystectomy with no objective or subjective findings of obstruction. Radiology recommendation was for ERCP. She will have an MRCP for evaluation and pending these results we will consider ERCP. Will also order CMP to check for signs of obstruction. She is agreeable to this plan. Orders: Orders CBC W/Diff, Automated Today D50.0 - Iron deficiency anemia secondary to blood loss (chronic), R19.5 - Other fecal abnormalities Comprehensive Metabolic Profil Today D50.0 - Iron deficiency anemia secondary to blood loss (chronic) ENTERIC PATHOGEN PANEL STOOL Today D50.0 - Iron deficiency anemia secondary to blood loss (chronic), K58.9 - Irritable bowel syndrome without diarrhea, R19.7 - Diarrhea, unspecified Ova and Parasites [id number] Today D50.0 - Iron deficiency anemia secondary to blood loss (chronic), K58.9 - Irritable bowel syndrome without diarrhea Pancreatic Elastase, Fecal Today D50.0 - Iron deficiency anemia secondary to blood loss (chronic) Stool Lactoferrin/WBC Today D50.0 - Iron deficiency anemia secondary to blood loss (chronic), K58.9 - Irritable bowel syndrome without diarrhea Calprotectin, Stool Today D50.0 - Iron deficiency anemia secondary to blood loss (chronic) CDIFF (PCR) Today D50.0 - Iron deficiency anemia secondary to blood loss (chronic) I have examined the patient and the H&P has been reviewed. There are no clinical changes since date of exam. Coding Level of Care Code Off vis,new,level 4
--- NOTE | 2024-06-30 07:21 | PCM.POST.ANE ---
Anesthesia: Postop Eval I Current Vital Signs Temperature: 97.1 F Pulse Rate: 66 Blood Pressure: 96/63 Respiratory Rate: 20 Pulse Ox: 100 Oxygen Delivery Method: Room Air Assessment Airway patent: Yes Spontaneous unlabored respirations: Yes Mental status: Awake nausea: No Vomiting: No Anesthesia Complication: No Fluid Hydration Crystalloid volume administer (ml): 10 Total IV fluid infused: 10 Progress Note Anesthesia document: Postop Eval 1 completed: Yes
--- NOTE | 2024-06-30 07:22 | OP.COLON_ITS ---
Patient Name: Viola Bennett Procedure Date: 06/30/2024 6:21 AM Date of : 1950 Age: 74 Procedure: Colonoscopy Indications: Iron deficiency anemia Providers: Alexander Bailey DO Referring MD: Alexander Bailey DO Medicines: Monitored Anesthesia Care Patient Profile: This is a 74 year old female. Refer to note in patient chart for documentation of history and physical. Last Colonoscopy: more than 10 years ago. Complications: No immediate complications. Procedure: Pre-Anesthesia Assessment: - Prior to the procedure, a History and Physical was performed, and patient medications and allergies were reviewed. The patient is competent. The risks and benefits of the procedure and the sedation options and risks were discussed with the patient. All questions were answered and informed consent was obtained. Patient identification and proposed procedure were verified by the physician in the pre-procedure area. Mental Status Examination: alert and oriented. Airway Examination: normal oropharyngeal airway and neck mobility. Respiratory Examination: clear to auscultation. CV Examination: normal. Prophylactic Antibiotics: The patient does not require prophylactic antibiotics. Prior Anticoagulants: The patient has taken no anticoagulant or antiplatelet agents. ASA Grade Assessment: II - A patient with mild systemic disease. After reviewing the risks and benefits, the patient was deemed in satisfactory condition to undergo the procedure. The anesthesia plan was to use monitored anesthesia care (MAC). Immediately prior to administration of medications, the patient was re-assessed for adequacy to receive sedatives. The heart rate, respiratory rate, oxygen saturations, blood pressure, adequacy of pulmonary ventilation, and response to care were monitored throughout the procedure. The physical status of the patient was re-assessed after the procedure. After I obtained informed consent, the scope was passed under direct vision. Throughout the procedure, the patient's blood pressure, pulse, and oxygen saturations were monitored continuously. The Colonoscope was introduced through the anus and advanced to the descending colon. The colonoscopy was performed without difficulty. The patient tolerated the procedure well. The quality of the bowel preparation was poor. Scope In: 7:04:00 AM Scope Out: 7:13:05 AM Total Procedure Duration Time 0 hours 9 minutes 5 seconds Findings: The perianal and digital rectal examinations were normal. Multiple large-mouthed diverticula were found in the recto-sigmoid colon and sigmoid colon. Copious quantities of stool was found in the sigmoid colon. Impression: - Preparation of the colon was poor. - Diverticulosis in the recto-sigmoid colon and in the sigmoid colon. - Stool in the sigmoid colon. - No specimens collected. Recommendation: - Discharge patient to home. - Resume previous diet. - Continue present medications. - Repeat colonoscopy because the bowel preparation was suboptimal. Procedure Code(s): --- Professional --- 67894, 53, Colonoscopy, flexible; diagnostic, including collection of specimen(s) by brushing or washing, when performed (separate procedure) CPT copyright 2021 [employer]. All rights reserved. The codes documented in this report are preliminary and upon line appliance assembler review may be revised to meet current compliance requirements. Alexander Bailey DO 06/30/2024 7:21:00 AM This report has been signed electronically. Number of Addenda: 0 Note Initiated On: 06/30/2024 6:21 AM
--- NOTE | 2024-06-30 07:22 | OP.CCLET_ITS ---
06/30/2024 Desmond Riojas MD [address] [place] [address] Re : Colonoscopy procedure for Viola Bennett Dear Dr. Riojas This procedure was performed on Sunday, June 30, 2024. My impressions and recommendations are as follows: Impressions : - Preparation of the colon was poor. - Diverticulosis in the recto-sigmoid colon and in the sigmoid colon. - Stool in the sigmoid colon. - No specimens collected. Recommendations : - Discharge patient to home. - Resume previous diet. - Continue present medications. - Repeat colonoscopy because the bowel preparation was suboptimal. My findings are described in the full procedure note, which is enclosed. If I can be of further assistance, please feel free to contact me at . Sincerely, Alexander Bailey, 06/30/2024 7:21:00 AM This report has been signed electronically.
--- NOTE | 2024-06-30 07:35 | PRE.ANES_ITS ---
ASA Classification* ASA Classification ASA Classification: 3 Assessment & Plan Anesthesia* Anesthesia Assessment Anesthesia Assessment: Discussed sedation and/or anesthesia options, risks, benefits, and alternatives with patient/parents/legal guardian/POA. Questions invited. The patient/parents/legal guardian/POA seems to understand and agrees to proceed with anesthesia plan. Reviewed the physical assessment, medical history, allergy history and patient home medications list prior to surgery/procedure/anesthetic and documented any changes. Performed airway and anesthesia risk assessments. Anesthesia Type Anesthesia Type: MAC (see written pre anesthesia record for full assessment) Anesthesia Focused Assessment* Temperature: 97.1 F Pulse Rate: 68 Blood Pressure: 112/67 Respiratory Rate: 18 Pulse Ox: 100 Airway Assessment Mouth opens: >3 cm Mallampati Score: II Focused Labs Anesthesia Preop lab: CBC WBC 3.4 K/mm3 (4.4-11.0) L 06/06/24 10:19 RBC 4.01 M/mm3 (4.2-5.4) L 06/06/24 10:19 Hgb 12.8 g/dL (12.0-15.0) 06/06/24 10:19 Hct 38.3 % (37-47) 06/06/24 10:19 Plt Count 203 K/mm3 (150-450) 06/06/24 10:19 CHEMISTRY Potassium 3.7 mmol/L (3.5-5.1) 06/06/24 10:19 Sodium 141 mmol/L (136-145) 06/06/24 10:19 Magnesium 2.2 mg/dL (1.6-2.6) 04/25/24 11:39 Phosphorus 2.9 mg/dL (2.5-4.9) 04/25/24 11:39 BUN 13 mg/dL (7-18) 06/06/24 10:19 Creatinine 0.92 mg/dL (0.55-1.02) 06/06/24 10:19 Glucose 77 mg/dL (74-106) 06/06/24 10:19 POC Glucose 88 mg/dL (74-106) 09/12/22 19:21 TSH 0.886 uIU/mL (0.358-3.740) 06/06/24 10:19 COAG PT 17.0 SECONDS (11.7-14.9) H 04/22/24 23:50 Pre-Assessment Diagnosis/Proposed Procedure Planned Operative Procedure(s): CSCOPE Anesthesia History Anesthesia History - pedodontist: Anesthesia History - pedodontist Hx Hospitalization Yes: MULTIPLE FALLS 06/28/24 09:43 Any Problems With Anesthesia No 06/28/24 09:43 Cholinesterase deficiency No 06/28/24 09:43 You/Your Family Experience No 06/28/24 09:43 fever (hyperthermia) with Relationship Recent Exposure to Contagious No 06/30/24 06:08 Disease Does patient have nerve No 06/28/24 09:43 stimulator Patient instructed to have device shut off --Does patient have Pacemaker No 06/30/24 06:08 or ICD? When Was Last Pacemaker Check QUESTION #4 FULL TEXT: You/Your Family Experience fever (hyperthermia) with Anesthesia Last Oral Intake Last Oral intake: Last Oral Intake NPO since Meds taken in AM with sips of water? 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 - pedodontist: PONV - pedodontist Female Yes 06/28/24 09:43 HX of Motion Sickness No 06/28/24 09:43 HX of N/V After Surgery No 06/28/24 09:43 Non-Smoker Yes 06/28/24 09:43 Duration of Surgery greater No 06/28/24 09:43 than 60 minutes Number of Risk Factors 2 06/28/24 09:43 PONV Score Moderate Risk 06/28/24 09:43 Height & Weight Height & Weight: Anesthesia: Height & Weight Height 5 ft 2 in 06/30/24 06:08 Weight: 66.2 kg 06/30/24 06:08 Body Mass Index (BMI) 26.6 06/30/24 06:08 Respiratory Assessment Respiratory Assessment - pedodontist: Respiratory Tract Infection Hx - pedodontist Hx Respiratory Tract Infection No 06/28/24 09:43 STOP Sleep Apnea STOP Sleep Apnea - pedodontist: STOP Sleep Apnea - pedodontist Hx Hypertension Yes: CONTROLLED WITH MED 06/28/24 09:43 Hx Sleep Apnea Yes 06/28/24 09:43 CPAP Yes 06/30/24 07:20 BIPAP No 06/28/24 09:43 Do you snore loudly (louder than talking or can be heard Do you often feel tired/ fatigued/ sleepy during daytime? Has anyone observed you stop breathing during sleep? STOP Results Positive 06/30/24 07:20 QUESTION #5 FULL TEXT : Do you snore loudly (louder than talking or can be heard through closed doors)? 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 Specify any problems Hx of Preganancy in last 3 N/A 06/28/24 09:43 Months Nurse Filling Out Transfusion NBUCHER 06/28/24 09:43 & Questions: Date: 06/28/24 06/28/24 09:43 Time: 09:45 06/28/24 09:43 Patient unable to answer at this time (ie. confused, unrespo /Reproduction History /Reproductive History - pedodontist: /Reproductive Hx- pedodontist Hx Now No 06/28/24 09:43 Gestational Age (in weeks): EDC: Hx Hx Para Hx Section SAB No 06/28/24 09:43 PFSH Medical History Loss of hearing Low iron GERD (gastroesophageal reflux disease) Sleep apnea Hypertension Subcutaneous nodule Parkinson disease Generalized weakness Hypokalemia Factor V Leiden mutation Generalized weakness Chronic anticoagulation History of atrial fibrillation History of Parkinson's disease Fall Anxiety Concussion Essential hypertension Fall Presbycusis of both ears Osteopenia Malnourished Anemia Anterolisthesis Segmental and somatic dysfunction of thoracic region Vasovagal near syncope Insomnia Allergic rhinitis Migraine Hyperlipidemia Gastroesophageal reflux disease Hypertension Deep vein thrombosis Obstructive sleep apnea Depression Osteoarthritis Factor 5 Leiden mutation, heterozygous Open wound of left lower leg with complication Fall as cause of accidental injury at home as place of occurrence Wears hearing aid Wears glasses Depression Anxiety Open wound Walker as ambulation aid DVT (deep venous thrombosis) High cholesterol Injury of back Injury of head and neck Migraine headache Syncope Gastric reflux Non-smoker CPAP (continuous positive airway pressure) dependence History of pain when walking History of edema Hx of echocardiogram History of stress test Cardiology follow-up encounter History of atrial fibrillation Cellulitis of left lower leg Skin necrosis 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 lower leg with complication Hematoma of left lower extremity Vision problems Cataract Back pain Segmental and somatic dysfunction of pelvic region Segmental and somatic dysfunction of lumbar region Scoliosis of lumbar spine CKD (chronic kidney disease) History of DVT (deep vein thrombosis) VALENTIN (obstructive sleep apnea) Paroxysmal atrial fibrillation Long-term use of high-risk medication Family history of coronary artery disease Family history of CVA 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 Traumatic ulcer of left lower extremity Atrial fibrillation CKD (chronic kidney disease) Obesity, Class III, BMI 40-49.9 (morbid obesity) Hypertension Head injury without concussion or intracranial hemorrhage Fall due to ice or snow Home Medications ?Medication ?Instructions ?Recorded ?Last Taken ?Type montelukast 10 mg tablet 10 mg PO DAILY Allergies 09/29/13 05/28/22 History omeprazole 20 mg capsule,delayed 20 mg PO DAILY GERD 09/29/13 05/28/22 History release amitriptyline 25 mg tablet 25 mg PO QHS Mood 10/25/19 05/27/22 History galcanezumab-gnlm 120 mg/mL 120 mg subcut QMONTH Migraines 10/25/19 05/23/22 08:00 History subcutaneous syringe (Emgality) multivitamin 1 tab PO DAILY Supplement 04/26/20 05/27/22 History divalproex 500 mg tablet,extended 500 mg PO QHS headache 01/31/21 05/27/22 History release 24 hr (Depakote ER) ergocalciferol (vitamin D2) 1,250 1,250 mcg PO DAILY supplement 11/24/21 05/27/22 07:00 History mcg (50,000 unit) capsule acetaminophen 500 mg tablet 1,000 mg (2 x 500 mg) PO Q8H PRN 06/12/22 Unknown Rx PRN pain #1 TAB apixaban 5 mg tablet 5 mg PO BID Blood thinner #60 tabs 06/12/22 Unknown Rx citalopram 20 mg tablet 20 mg PO DAILY #30 tabs 06/12/22 Unknown Rx ferrous sulfate 325 mg (65 mg 325 mg PO DAILY supplement 09/12/22 Unknown History iron) tablet carbidopa 25 mg-levodopa 100 mg 2 tab PO 4X/DAY 12/17/23 Unknown History tablet levocetirizine 5 mg tablet 5 mg PO DAILY 12/17/23 Unknown History ondansetron 4 mg disintegrating 4 mg PO DAILY PRN nausea and 04/22/24 Unknown History tablet vomiting sennosides 8.6 mg-docusate sodium 1 tab-cap PO DAILY 04/22/24 Unknown History 50 mg tablet (Stool Softener-Stimulant Laxative) verapamil 120 mg 24 hr 240 mg PO DAILY 04/22/24 Unknown History capsule,extended release potassium chloride 20 mEq 40 meq (2 x 20 mEq) PO DAILY 30 04/23/24 Unknown Rx tablet,extended release(part/cryst) days #0 tabs Allergy/AdvReac Type Severity Reaction Status Date / Time cefdinir Allergy Hives Verified 06/30/24 05:53 diphenhydramine HCl (From Allergy Hives Verified 06/30/24 05:53 Benadryl) Sulfa (Sulfonamide Allergy Hives Verified 06/30/24 05:53 Antibiotics) Family History Brother CAD (coronary artery disease) Mother CVA (cerebral vascular accident) CAD (coronary artery disease) Son Hypertension Daughter Hypertension Other Arthritis Cancer Diabetes Family history of CVA Family history of coronary artery disease Family history of hypertension Heart disease High cholesterol Kidney disease Thyroid disorder Surgical History History of left hip hemiarthroplasty History of incision and drainage Hx of cataract extraction History of total hysterectomy History of bilateral knee replacement History of cholecystectomy Social History household members: spouse housing: house number of children: 2 current occupational status: retired current occupational exposures/hazards: No pets and animals: No Smoking Status: Never smoker alcohol intake: never substance use type: does not use caffeine: Yes Type: tea what type of physical activity do you participate in: none seatbelt use: always do you feel safe at home: Yes additional social history: Does Not Take Aspirin Does Not Take Ibuprofen Review of Systems (Anesthesia) ROS Narrative System reviewed and no additional complaints, except as documented.
--- NOTE | 2024-06-30 07:35 | POSTOPAN2_ITS ---
Anesthesia Postop Eval I Sum Postop Eval Completion status Anesthesia document: Postop Eval 1 completed: Yes Anesthesia Postop Eval I Summary Anesthesia Postop Eval I Summary: Anesthesia Postop Eval I: Assessment Summary Airway patent Yes 06/30/24 07:22 [email or web address] Spontaneous unlabored Yes 06/30/24 07:22 [email or web address] respirations Mental status Awake 06/30/24 07:22 [email or web address] nausea No 06/30/24 07:22 [email or web address] Vomiting No 06/30/24 07:22 [email or web address] Anesthesia Postop Eval I: Fluid Summary Crystalloid volume administer 10 06/30/24 07:22 [email or web address] (ml) Colloids volume administered ( ml) Blood Product volume administered (ml) Total IV fluid infused 10 06/30/24 07:22 [email or web address] Anesthesia Postop Eval I: Summary Notes Anesthesia Complication No 06/30/24 07:22 [email or web address] Anesthesia Complication Comment: Post-operative progress note Anesthesia: Postop Eval II Evaluation Mental status: Awake Pain Level: 0 nausea: No Vomiting: No
--- NOTE | 2024-06-30 07:35 | PCM.POSTANE2 ---
Anesthesia Postop Eval I Sum Postop Eval Completion status Anesthesia document: Postop Eval 1 completed: Yes Anesthesia Postop Eval I Summary Anesthesia Postop Eval I Summary: Anesthesia Postop Eval I: Assessment Summary Airway patent Yes 06/30/24 07:22 [email or web address] [email or web address] Spontaneous unlabored Yes 06/30/24 07:22 [email or web address] [email or web address] respirations Mental status Awake 06/30/24 07:22 [email or web address] [email or web address] nausea No 06/30/24 07:22 [email or web address] [email or web address] Vomiting No 06/30/24 07:22 [email or web address] [email or web address] Anesthesia Postop Eval I: Fluid Summary Crystalloid volume administer 10 06/30/24 07:22 [email or web address] [email or web address] (ml) Colloids volume administered ( ml) Blood Product volume administered (ml) Total IV fluid infused 10 06/30/24 07:22 [email or web address] [email or web address] Anesthesia Postop Eval I: Summary Notes Anesthesia Complication No 06/30/24 07:22 [email or web address] Anesthesia Complication Comment: Post-operative progress note Anesthesia: Postop Eval II Evaluation Mental status: Awake Pain Level: 0 nausea: No Vomiting: No
== END 2024-06-30 08:24 | disposition home or self-care (01) ==
LOC: EN 05:13 → AC 05:18
PROVIDERS: PCP Family Medicine Geriatric Medicine; Referring Provider Internal Medicine Gastroenterology; Visit Provider Internal Medicine Gastroenterology
PROC: 0DJD8ZZ Inspection of Lower Intestinal Tract, Via Natural or Artificial Opening Endoscopic (ICD-10-PCS; CPT 45378; principal; 2024-06-30 06:25)
DX: D50.0 Iron deficiency anemia secondary to blood loss (chronic) (principal); G20.A1 Parkinson's disease without dyskinesia, without mention of fluctuations; R19.7 Diarrhea, unspecified; Z90.49 Acquired absence of other specified parts of digestive tract; K57.30 Diverticulosis of large intestine without perforation or abscess without bleeding; Z79.899 Other long term (current) drug therapy; K83.8 Other specified diseases of biliary tract
CPT/HCPCS: 43235; A4216; J2405

== ENCOUNTER → 2024-07-03 | Outpatient (CLI) | payer MEDICARE, OTHER, SELFPAY ==
[2024-07-03 15:59] LABS: Valproic Acid (Depakene) Level 44 ug/mL (50-100)
[2024-07-03 16:09] LABS: AST(SGOT) 18 U/L (15-37); Alanine Aminotransfer ALT/SGPT 10 U/L (13-56); Albumin, Serum 3.9 g/dL (3.2-5.0); Alkaline Phosphatase 74 U/L (45-117); Anion Gap 7 (5-15); BUN 10 mg/dL (7-18); BUN/Creat Ratio 10.8 RATIO (10-20); Calcium,Total 9.6 mg/dL (8.5-10.1); Chloride 106 mmol/L (98-107); Creatinine, Serum 0.92 mg/dL (0.55-1.02); EST Glomerular Filtration Rate 63 mL/min (>60); Est Glom Filt Rate - Afr Amer 76 mL/min (>60); Globulin 3.9 g/dL (2.2-4.2); Glucose 105 mg/dL (74-106); Potassium 3.4 mmol/L (3.5-5.1); Protein, Total 7.8 g/dL (6.4-8.2); Sodium Level 137 mmol/L (136-145); Thyroid Stim Hormone (TSH) 0.623 uIU/mL (0.358-3.740)
[2024-07-07 00:07] LABS: Arsenic 7245 3 ug/L (0-9); Lead, Blood 1.1 ug/dL (0.0-3.4); Mercury, Blood 85324 < 1.0 ug/L (0.0-14.9)
== END | disposition home or self-care (01) ==
LOC: LAB 14:36
PROVIDERS: PCP Family Medicine Geriatric Medicine; Referring Provider Psychiatry & Neurology Neurology; Visit Provider Psychiatry & Neurology Neurology
DX: G62.9 Polyneuropathy, unspecified (principal); G20.A2 Parkinson's disease without dyskinesia, with fluctuations; M54.50 Low back pain, unspecified; G89.29 Other chronic pain; G47.33 Obstructive sleep apnea (adult) (pediatric); F43.9 Reaction to severe stress, unspecified; R41.3 Other amnesia; R47.1 Dysarthria and anarthria; G43.719 Chronic migraine without aura, intractable, without status migrainosus
CPT/HCPCS: 36415; 80053; 80164; 82140; 82175; 82607; 83655; 83825; 84443

== ENCOUNTER 2024-07-15 17:08 | Emergency (ER) | payer MEDICARE, OTHER, SELFPAY ==
[2024-07-15 17:11] VITALS: BP 142/85; PULSE 97; RESP 18; TEMP 36.5; O2SAT 98; BMI 26.9
--- NOTE | 2024-07-15 17:32 | EDS_ITS ---
HPI History of Present Illness Chief Complaint: Nausea/Vomiting [facility] Medical History Loss of hearing Low iron GERD (gastroesophageal reflux disease) Sleep apnea Hypertension Subcutaneous nodule Parkinson disease Generalized weakness Hypokalemia Factor V Leiden mutation Generalized weakness Chronic anticoagulation History of atrial fibrillation History of Parkinson's disease Fall Anxiety Concussion Essential hypertension Fall Presbycusis of both ears Osteopenia Malnourished Anemia Anterolisthesis Segmental and somatic dysfunction of thoracic region Vasovagal near syncope Insomnia Allergic rhinitis Migraine Hyperlipidemia Gastroesophageal reflux disease Hypertension Deep vein thrombosis Obstructive sleep apnea Depression Osteoarthritis Factor 5 Leiden mutation, heterozygous Open wound of left lower leg with complication Fall as cause of accidental injury at home as place of occurrence Wears hearing aid Wears glasses Depression Anxiety Open wound Walker as ambulation aid DVT (deep venous thrombosis) High cholesterol Injury of back Injury of head and neck Migraine headache Syncope Gastric reflux Non-smoker CPAP (continuous positive airway pressure) dependence History of pain when walking History of edema Hx of echocardiogram History of stress test Cardiology follow-up encounter History of atrial fibrillation Cellulitis of left lower leg Skin necrosis 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 lower leg with complication Hematoma of left lower extremity Vision problems Cataract Back pain Segmental and somatic dysfunction of pelvic region Segmental and somatic dysfunction of lumbar region Scoliosis of lumbar spine CKD (chronic kidney disease) History of DVT (deep vein thrombosis) VALENTIN (obstructive sleep apnea) Paroxysmal atrial fibrillation Long-term use of high-risk medication Family history of coronary artery disease Family history of CVA Family history of hypertension FDC use of drug Traumatic ulcer of left lower extremity Atrial fibrillation CKD (chronic kidney disease) Obesity, Class III, BMI 40-49.9 (morbid obesity) Hypertension Head injury without concussion or intracranial hemorrhage Fall due to ice or snow Home Medications ?Medication ?Instructions ?Recorded ?Last Taken ?Type montelukast 10 mg tablet 10 mg PO DAILY Allergies 09/29/13 05/28/22 History omeprazole 20 mg capsule,delayed 20 mg PO DAILY GERD 09/29/13 05/28/22 History release galcanezumab-gnlm 120 mg/mL 120 mg subcut QMONTH Migraines 10/25/19 05/23/22 08:00 History subcutaneous syringe (Emgality) multivitamin 1 tab PO DAILY Supplement 04/26/20 05/27/22 History divalproex 500 mg tablet,extended 500 mg PO QHS headache 01/31/21 05/27/22 History release 24 hr (Depakote ER) ergocalciferol (vitamin D2) 1,250 1,250 mcg PO DAILY supplement 11/24/21 05/27/22 07:00 History mcg (50,000 unit) capsule acetaminophen 500 mg tablet 1,000 mg (2 x 500 mg) PO Q8H PRN 06/12/22 Unknown Rx PRN pain #1 TAB apixaban 5 mg tablet 5 mg PO BID Blood thinner #60 tabs 06/12/22 Unknown Rx ferrous sulfate 325 mg (65 mg 325 mg PO DAILY supplement 09/12/22 Unknown History iron) tablet carbidopa 25 mg-levodopa 100 mg 2 tab PO 4X/DAY 12/17/23 Unknown History tablet levocetirizine 5 mg tablet 5 mg PO DAILY 12/17/23 Unknown History ondansetron 4 mg disintegrating 4 mg PO DAILY PRN nausea and 04/22/24 Unknown History tablet vomiting sennosides 8.6 mg-docusate sodium 1 tab-cap PO DAILY 04/22/24 Unknown History 50 mg tablet (Stool Softener-Stimulant Laxative) verapamil 120 mg 24 hr 240 mg PO DAILY 04/22/24 Unknown History capsule,extended release potassium chloride 20 mEq 40 meq (2 x 20 mEq) PO DAILY 30 04/23/24 Unknown Rx tablet,extended release(part/cryst) days #0 tabs citalopram 20 mg tablet 30 mg PO DAILY 07/15/24 Unknown History ondansetron 4 mg disintegrating 4 mg PO Q8H PRN PRN Nausea #10 tabs 07/15/24 Unknown Rx tablet Allergy/AdvReac Type Severity Reaction Status Date / Time cefdinir Allergy Hives Verified 07/15/24 17:10 diphenhydramine HCl (From Allergy Hives Verified 07/15/24 17:10 Benadryl) Sulfa (Sulfonamide Allergy Hives Verified 07/15/24 17:10 Antibiotics) Family History Brother CAD (coronary artery disease) Mother CVA (cerebral vascular accident) CAD (coronary artery disease) Son Hypertension Daughter Hypertension Other Arthritis Cancer Diabetes Family history of CVA Family history of coronary artery disease Family history of hypertension Heart disease High cholesterol Kidney disease Thyroid disorder Surgical History History of left hip hemiarthroplasty History of incision and drainage Hx of cataract extraction History of total hysterectomy History of bilateral knee replacement History of cholecystectomy Social History household members: spouse housing: house number of children: 2 current occupational status: retired current occupational exposures/hazards: No pets and animals: No Smoking Status: Never smoker alcohol intake: never substance use type: does not use caffeine: Yes Type: tea what type of physical activity do you participate in: none seatbelt use: always do you feel safe at home: Yes additional social history: Does Not Take Aspirin Does Not Take Ibuprofen EXAM Physical Exam Const Vital Signs: 07/15/24 17:11 07/15/24 17:57 07/15/24 19:04 Temperature 97.7 F L 96.9 F L Temperature Source Oral Temporal Pulse Rate 97 80 79 Respiratory Rate 18 16 Blood Pressure 142/85 H 133/64 H 140/61 H Blood Pressure Mean 104 87 87 Pulse Ox 98 98 Oxygen Delivery Method Room Air Room Air MDM MDM MDM Narrative Medical decision making narrative: HISTORY OF PRESENT ILLNESS: 74-year-old female presents concern for nausea and vomiting. Notes she saw Dr. Bailey and was given magnesium citrate and MiraLAX for constipation. She notes no bowel movements for the past 3 days. Notes acute onset of nausea vomiting that began this afternoon. Vomitus is nonbloody and nonbilious in nature. REVIEW OF SYSTEMS: Pertinent positives: Constipation, nausea vomiting Pertinent negatives: Chest pain, cough, melena, medic easier, urinary complaints PHYSICAL EXAM: Nursing triage notes reviewed, Vital signs reviewed Constitutional: please see mdm HENT: MMM Eyes: Pupils equal round and reactive to light, Extraocular muscles intact Neck: No stridor, no JVD, full neck ROM Lungs: Clear to auscultation, No wheezing or rales. No increased work of breathing, no conversational dyspnea, no accessory muscle use, no nasal flaring. No respiratory distress noted Heart: Regular rate and rhythm, No murmurs, No rubs and No gallops, 2+ distal pulses (radial, femoral, posterior tibial) in all extremities Abdomen: Soft, there is no tenderness, rigidity, rebound or guarding, no obvious peritoneal signs, no palpable pulsatile abdominal masses, no auscultated abdominal bruit : No CVAT Extremities: No edema Neuro: No focal neurological deficits, cranial nerves II through XII intact, 5/5 strength in all extremities. Intact sensation to light touch in all extremities, 2+ reflexes bilateral patella tendons. Normal gait. No ataxia. Skin: No rash or lesions noted MEDICAL DECISION MAKING: Chief Complaint: Constipation, nausea vomiting External records reviewed: Reviewed the patient's allergy list, problem list, vital signs, current medications, prior gastroenterology notes. Factors affecting care:, Common bile duct dilatation, A-fib on Eliquis, hypertension Social determinants of health: none History obtained from others: none Consults: none MDM Narrative: The patient was hemodynamically stable, afebrile and nontoxic-appearing. Exam with diffuse TTP but no distention rebound or guarding noted. No peritoneal signs noted. I considered the following differential diagnosis: Obstruction, constipation, IBS, hepatobiliary pathology, pancreatitis, UTI, ACS, arrhythmia, pneumonia, pneumothorax I obtained a broad lab and imaging workup to further elucidate etiology of the patient's complaints. I initially treated the patient 1 L normal saline, Zofran and Pepcid for symptomatic relief. ALL IMAGES (IF OBTAINED) HAVE BEEN PERSONALLY REVIEWED AND INTERPRETED BY MYSELF. EKG with normal sinus rhythm, normal axis, prolonged QT interval, no STEMI High-sensitivity troponin is negative, no evidence of myocardial ischemia I have personally reviewed the patient's chest x-ray. Chest x-ray is unremarkable for pulmonary edema, pneumothorax, pneumonia or focal cardiopulmonary abnormality. CBC without leukocytosis, severe anemia, no thrombocytopenia. CT scan abdomen pelvis with no evidence of acute pathology BMP with hypokalemia owing to nausea and vomiting, noted metabolic acidosis likely secondary to nausea vomiting, no acute kidney injury LFTs show no evidence of hepatobiliary pathology. Lipase is wnl indicating no pancreatic inflammation. Urinalysis shows no evidence of urinary inflammation suggestive of UTI Repeat abdominal exam remained benign. On reassessment patient symptomatically better after IV fluids, Zofran, and Pepcid. She is able to tolerate p.o. Despite hypokalemia and signs of metabolic acidosis I think the patient is appropriate discharge home if she can tolerate p.o. to rehydrate and improve these very slight lab abnormalities. Edition patient's vital stable and her abdominal exam was benign. In addition to this her images were reassuring. Otherwise there is no signs of significant life-limiting etiology including in the chest abdomen or pelvis. Patient is appropriate discharge home with close GI follow-up. The patient and/or family, caregivers express understanding. The patient and/or family, caregivers agrees with the plan. Shared decision making: I will have a discussion with the patient and or visitors regarding risk/benefits of further testing or admission. They will be made aware of of the risk/benefits inherent in this decision they will be given the opportunity to voice understanding. Total critical care time today provided was at least 0 minutes. This excludes separately billable procedures. Critical care time (if documented) is secondary to the patient having high probability of clinically significant/life thr eatening deterioration in the patient's condition which required my urgent intervention. Impression: 1. Acute nausea vomiting 2. Dehydration 3. Hypokalemia Dispo: Discharge home This note was generated with [employer] dictation software. It may contain incorrect words, spelling, and punctuation that were not noted in review of the chart prior to signing. Lab Data Labs: Laboratory Results - last 24 hr 07/15/24 07/15/24 17:20 19:00 WBC 4.7 RBC 3.92 L Hgb 12.5 Hct 35.6 L MCV 90.8 MCH 31.9 MCHC 35.1 RDW Std Deviation 42.5 RDW Coeff of Shannon 13.0 Plt Count 237 MPV 10.0 Sodium 136 Potassium 3.0 L Chloride 104 Carbon Dioxide 17.0 L Anion Gap 15 BUN 11 Creatinine 1.13 H Estim Creat Clear Calc 37.96 Est GFR (MDRD) Af Amer 60 Est GFR (MDRD) Non-Af 50 L BUN/Creatinine Ratio 9.7 L Glucose 143 H Calcium 9.4 Total Bilirubin 0.90 Direct Bilirubin 0.23 AST 19 ALT 7 L Alkaline Phosphatase 67 Total Protein 7.7 Albumin 4.0 Globulin 3.7 Lipase 25 Urine Color Straw Urine Clarity Clear Urine pH 8.0 Ur Specific [place] 1.010 Urine Protein Negative Urine Glucose (UA) Normal Urine Ketones 15 H Urine Occult Blood Negative Urine Nitrite Negative Urine Bilirubin Negative Urine Urobilinogen Normal Ur Leukocyte Esterase 100 H Urine RBC 0 SEEN Urine WBC 10-25 SEEN Ur Squamous Epith Cells 0 SEEN Urine Bacteria 2+ Urine Mucus 0 SEEN Radiography Diagnostic Testing: Clinical Impression(s) from Imaging Studies Chest X-Ray 07/15/24 17:42 IMPRESSION: No radiographic evidence of acute cardiopulmonary disease. Electronically Signed: Narayan Herron DO at 18:29 EDT , Abdomen/Pelvis CT 07/15/24 17:43 IMPRESSION: Hiatal hernia. Colonic fecal retention. Fatty umbilical hernia. Bilateral hydronephrosis and right hydroureter with no obstructive stone is seen. Status post cholecystectomy. Biliary dilatation. Electronically Signed: Narayan Herron DO at 19:55 EDT , Discharge Plan Triage Chief Complaint: Nausea/Vomiting ED Provider: Roland Marin Dx/Rx/DC Orders Instructions: High Fiber Diet Dc, ED Constipation (Adult), ED Vomiting (Adult) Prescriptions: New ondansetron 4 mg tablet,disintegrating 4 mg PO Q8H PRN PRN (Reason: Nausea) Qty: 10 0RF No Action Emgality Syringe 120 mg/mL syringe 120 mg SC QMONTH multivitamin Tablet 1 tab PO DAILY ergocalciferol (vitamin D2) 1,250 mcg (50,000 unit) capsule 1,250 mcg PO DAILY omeprazole 20 MG capsule 20 mg PO DAILY montelukast 10 MG tablet 10 mg PO DAILY divalproex [Depakote ER] 500 mg Tablet Extended Release 24 Hr 500 mg PO QHS acetaminophen 500 mg tablet 1,000 mg PO Q8H PRN PRN (Reason: pain) Qty: 1 0RF Rx Instructions: 2 tabs every 8 hours as needed for pain. apixaban 5 mg tablet 5 mg PO BID Qty: 60 0RF Rx Instructions: 1 tab every 12 H ferrous sulfate 325 mg (65 mg iron) Tablet 325 mg PO DAILY carbidopa-levodopa 25-100 mg tablet 2 tab PO 4X/DAY Patient Comments: 2 TABS 3X/DAY AND ONE 1 TAB AT BED levocetirizine 5 mg tablet 5 mg PO DAILY ondansetron 4 mg tablet,disintegrating 4 mg PO DAILY PRN (Reason: nausea and vomiting) sennosides-docusate sodium [Stool Softener-Stimulant Laxat] 8.6-50 mg tablet 1 tab-cap PO DAILY Patient Comments: TAKE 1 TABLET BY MOUTH 2ITIMES A DAY. START AFTER GOLYTELY verapamil 120 mg capsule,ext rel. pellets 24 hr 240 mg PO DAILY potassium chloride 20 mEq tablet,ER particles/crystals 40 meq PO DAILY 30 Days Qty: 0 0RF Rx Instructions: 40 mEq, 2 tablet daily for 1 week and then 20 mEq, 1 tablet once daily. citalopram 20 mg Tablet 30 mg PO DAILY Primary Care Provider: Desmond Riojas Chi Referrals: Desmond Riojas Chi, MD [Primary Care Provider] - Activity Restrictions/Additional Instructions: Thank you for trusting us with your care today! Your labs images were reassuring. Specifically no sign of a bowel obstruction, Heart damage, significant anemia, urinary tract infection. Please continue bowel regiment as per gastroenterology instructions. Please add fiber 1 cereal which can be obtained in a grocery store. Please return to the emergency department if your symptoms change or worsen. Please follow with your primary care physician for further outpatient evaluation and management. Print Language: Citizen [place] Disposition Disposition: Home, Self Care
--- NOTE | 2024-07-15 17:42 | RAD_ITS ---
INDICATION: chest pain EXAMINATION/TECHNIQUE: X-RAY - XR Chest 1 View COMPARISON: April 23, 2024 FINDINGS: LINES/DEVICES: None. LUNGS: No consolidation, edema or effusion. No pneumothorax. MEDIASTINUM AND CARDIOVASCULAR STRUCTURES: Cardiac silhouette not enlarged. Central airways and mediastinal contour are unremarkable. BONES AND SOFT TISSUES: Degenerative vertebral changes. RAD/Chest 1 View (Portable) IMPRESSION: No radiographic evidence of acute cardiopulmonary disease. Electronically Signed: Narayan Herron DO at 18:29 EDT ,
--- NOTE | 2024-07-15 17:43 | CT_ITS ---
STUDY: CT ABDOMEN AND PELVIS WITH CONTRAST REASON FOR EXAM: Female, 74 years old. n/v diffuse abdominal pain RADIATION DOSAGE (If Supplied By Facility): CTDIvol = ( 16.77 ) mGy, DLP = ( 1053.00 ) mGycm TECHNIQUE: Transaxial images were obtained from the dome of the diaphragm to the symphysis pubis without oral contrast. IV 100mL Isovue-370 was administered. Sagittal and coronal images were reconstructed. Individualized dose optimization techniques were used for this CT. COMPARISON: None. FINDINGS: The visualized lung bases are unremarkable. The visualized portions of the heart are within normal limits. Normal liver. Nonvisualization of the gallbladder. There is dilatation of the biliary system. Normal spleen. Normal pancreas. Normal bilateral adrenal glands. Bilateral hydronephrosis bilaterally. Mild right hydroureter. No obstructive stone is seen. Hiatal hernia. Normal small intestine. Fecal retention in the colon. The appendix is nonvisualized. Normal abdominal aorta. Normal inferior vena cava. Normal retroperitoneum. Normal urinary bladder. Fatty umbilical hernia. Left total hip replacement. CT/Abdomen/Pelvis W IV Cont ONLY IMPRESSION: Hiatal hernia. Colonic fecal retention. Fatty umbilical hernia. Bilateral hydronephrosis and right hydroureter with no obstructive stone is seen. Status post cholecystectomy. Biliary dilatation. Electronically Signed: Narayan Herron DO at 19:55 EDT ,
--- NOTE | 2024-07-15 17:43 | EKG12_ITS ---
Test Reason : GENERAL Blood Pressure : / mmHG Vent. Rate : 082 BPM Atrial Rate : 082 BPM P-R Int : 120 ms QRS Dur : 104 ms QT Int : 454 ms P-R-T Axes : 000 023 147 degrees QTc Int : 530 ms Normal sinus rhythm ST & T wave abnormality, consider inferior ischemia ST & T wave abnormality, consider anterolateral ischemia Prolonged QT Abnormal ECG Confirmed by TREVA SANCHEZ, IVANNA ([id number]), copy editor ELISEO PATTERSON ([id number]) on 07/17/2024 9:39:43 AM Referred By: Confirmed By:IVANNA TILLEY MD
[2024-07-15] MEDS: 0.9% Normal Saline (1000mL) 1,000 ML 1000 ML IV (17:46)
--- OUTSIDE RECORDS SUMMARY | 2024-07-15 17:46 | XMS RPT_ITS | CCD ---
Author Organization [facility] Care Team Providers Care Grab Setter Name Role Phone DeFinis, Harumi Y Unavailable Unavailable DeFinis, Harumi Y Unavailable Unavailable Ambriz, Juanita Unavailable Unavailable Ambriz, Juanita Unavailable Unavailable DeFinis, Harumi Y Unavailable Unavailable Pcp, No Primary Care Provider Unavailelida e Shine, Desmond Chi Primary Care Provider Masci DO Luis Felipe A Unavailable Shine, Desmond Chi Primary Care Provider Masci DO Luis Felipe A Unavailable SHINE, DESMOND CHI Primary Care Unavailable SHINE, DESMOND CHI Primary Care Unavailable MASCI, LUIS FELIPE A Referring Unavailable MASCI, LUIS FELIPE A Referring Unavailable SEMENTI PADMINI SKINNER Referring Unavaila ble JANAYI, LUIS FELIPE A Attending Unavailable MAGNOLIA SHEFFIELD Attending Unavailable SHINE, DESMOND-CHI Referring Unavailable PRESTON CAMPBELL Attending Unavailable PRESTON CAMPBELL Attending Unavailable SHINE, DESMOND-CHI Referring Unavailable MAGNOLIA SHEFFIELD S Attending Unavailable PRESTON CAMPBELL Attending Unavailable PRESTON CAMPBELL Referring Unavailable MAGNOLIA SHEFFIELD S Attending Unavailable PRESTON CAMPBELL Attending Unavailable Shine SANCHEZ [facility] Primary Care Provider Allergies Allergy Classification Reported Allergen(s) Allergy Type Date of Onset Reaction(s) Facility (18 sources) cefdinir; Translations: [CEFDINIR] drug allergy 2 Hives [facility] Work Phone: (5 sources) diphenhydrAMINE drug allergy 2 [facility] Work Phone: (5 sources) Sulfonamides (Antibiotic) drug allergy 2 [facility] Work Phone: (13 sources) diphenhydrAMINE; Translations: [DIPHENHYDRAMINE HCL] Drug Allergy 1 Itching, Hives [facility] (13 sources) Sulfonamides (Antibiotic); Translations: [SULFA (SULFONAMIDE ANTIBIOTICS)] Drug Allergy 1 Rash, Itching, Hives [facility] Medications Current Medications Medication Drug Class(es) Dates Sig (Normalized) Sig (Original) amitriptyline hydrochloride 50 mg oral tablet (12 sources) Tricyclic Antidepressant Start: 04-25-2024 End: 04-20-2025 take 1 tablet by mouth at bedtime amitriptyline (Elavil) 50 MG tablet Indications: Insomnia, unspecified type Take 1 tablet (50 mg) by mouth at bedtime 90 tablet 3 04/25/2024 04/20/2025 Active take 1 tablet by toney th once daily at bedtime amitriptyline (ELAVIL) 25 mg tablet Take 25 mg by mouth daily at bedtime. 0 Active Comment on above: Take 25 mg by mouth daily at bedtime. ascorbic acid 1000 mg oral tablet (12 sources) Vitamin C End: 07-03-20 24 take 1 tablet by mouth in the morning Ascorbic Acid (vitamin C) 1000 MG tablet Take 1,000 mg by mouth in the morning. 07/03/2024 Discontinued Comment on above: Take 1,000 mg by toney th once daily. ascorbic acid 60 mg / beta carotene 5000 unt / copper sulfate 40 mg / dl-alpha tocopheryl acetate 30 unt / sodium selenite 0.04 mg / zinc oxide 40 mg oral tablet (3 sources) Vitamin C Multiple Vitamin (Multivitamin Adult) tablet as directed Orally Active carbidopa 25 mg / levodopa 100 mg oral tablet (6 sources) Aromatic Amino Acid Decarboxylation Inhibitor, Aromatic Amino Acid Start: 10-19-19 24 carbidopa-levodopa (Sinemet) 25-100 MG tablet Indications: Parkinson's disease (CMS/HCC) Take 2 pills at 9a, 2p, 6p, and one pill at bedtime 630 tablet 2 04/05/2024 Active citalopram 20 mg oral tablet (20 sources) Serotonin Reuptake Inhibitor Start: 09-26-19 23 End: 07-03-20 24 take 1 tablet by mouth in the morning citalopram (CeleXA) 20 MG tablet Take 20 mg by mouth in the morning. 09/26/2022 07/03/2024 Discontinued Start: 03-20-2011 End: 11-05-2015 take 1 tablet by mouth once daily citalopram (CELEXA) 40 mg ORAL tablet Indications: DVT (deep venous thrombosis) (HCC) Take 1 tablet by mouth once daily. 0 03/20/2011 Active Comment on above: Take 1 tablet by toney th once daily. Take 20 mg by mouth once daily. ferrous sulfate 325 mg oral tablet (11 sources) take 1 tablet by mouth in the morning ferrous sulfate 325 (65 Fe) MG tablet Take 325 mg by mouth in the morning. Active Comment on above: Take 325 mg by mouth once daily. gabapentin 100 mg oral capsule (20 sources) Anti-epileptic Agent Start: 06-02-2024 End: 08-01-2024 take 1 capsule by mouth in the morning, then take 1 capsule by mouth in the evening, then take 1 capsule by mouth at bedtime gabapentin (Neurontin) 100 MG capsule Indications: Neuropathy Take 1 capsule (100 mg) by mouth in the morning and 1 capsule (100 mg) in the evening and 1 capsule (100 mg) before bedtime. 90 capsule 1 06/02/2024 07/03/2024 Discontinued Start: 09-06-2014 End: 11-05-2015 take 1 tablet by mouth once daily GABAPENTIN 300 MG CAPS One tablet by mouth daily GABAPENTIN [id number] Kylee Burr PA-C take 1 tablet by toney th once daily gabapentin 600 mg tablet Indications: DVT (deep venous thrombosis) (HCC) , Coagulation defect (HCC) Take 600 mg by mouth once daily. 0 Active Comment on above: Take 600 mg by mouth once daily. 1 ml galcanezumab-gnlm 120 mg/ml auto-injector (12 sources) inject 120 mg by subcutaneous injection every 30 days galcanezumab (Emgality) 120 MG/ML auto-injector Inject 120 mg under the skin every 30 (thirty) days. Active inject 120 mg by sub cutaneous injection every month galcanezumab-gnlm (EMGALITY SYRINGE) 120 mg/mL syringe Inject 120 mg subcutaneously once every month. Do not shake. 0 Active Comment on above: Inject 120 mg subcut aneously once every month. Do not shake. levocetirizine dihydrochloride 5 mg oral tablet (16 sources) Histamine-1 Receptor Antagonist levocetirizine (Xyza l) 5 MG tablet 1 (one) time each day at the same time Active take 10 mg by mouth once daily L EVOCETIRIZINE DIHYDROCHLORIDE (XYZAL ORAL) Indications: DVT (deep venous thrombosis) (HCC) , Coagulation defect (HCC) Take 10 mg by mouth once daily. 0 Active Comment on above: Take 10 mg by mouth once daily. omeprazole 20 mg delayed release oral capsule (16 sources) Proton Pump Inhibitor Start: 05-08-2024 omeprazole (PriLOSEC) [address] capsule 05/08/2024 Active Start: 03-20-2011 take 1 capsule by mo [facility] once daily omeprazole (PRILOSEC) 20 mg capsule Indications: DVT (deep venous thrombosis) ([facility]) Take 1 capsule by mouth once daily. 0 03/20/2011 Active take 1 tablet by toney once daily PRILOSEC 20 MG CPDR One tablet by mouth daily OMEPRAZOLE [id number] Zachary Cardenas Comment on above: Take 1 capsule by [facility] once daily. polysaccharide iron complex 150 mg oral capsule (2 sources) Start: 03-27-2024 take 1 capsule by mouth once daily IFerex 150 150 MG capsule Take 150 mg by mouth Daily 03/27/2024 Active potassium chloride 20 meq extended release oral tablet (20 sources) Start: 01-06-2023 take 1 tablet by mouth in the morning potassium chloride CR (K-Tab) 20 MEQ ER tablet Take 20 mEq by mouth in the morning. 01/06/2023 Active Start: 07-26-2013 take 1 tablet by toney th twice daily POTASSIUM CHLORIDE ER 10 MEQ CR-TABS One tablet by mouth twice daily POTASSIUM CHLORIDE [id number] Luis Felipe Garzon MD Start: 07-26-2013 take 1 tablet by toney th twice daily KLOR-CON M20 20 MEQ CR-TABS One tablet by mouth twice daily POTASSIUM CHLORIDE SWATHI VALDES [id number] Luis Felipe Garzon MD Start: 10-19-2012 End: 07-26-2013 take 1 tablet by mouth twice daily KLOR-CON M20 20 MEQ CR-TABS One tablet by mouth twice daily POTASSIUM CHLORIDE SWATHI CR [id number] Luis Felipe Garzon MD Start: 10-19-2012 take 1 tablet by toney th twice daily KLOR-CON M20 20 MEQ CR-TABS One tablet by mouth twice daily POTASSIUM CHLORIDE SWATHI CR [id number] Luis Felipe Garzon MD Start: 10-19-2012 End: 07-26-2013 take 1 tablet by mouth twice daily KLOR-CON M20 20 MEQ CR-TABS One tablet by mouth twice daily POTASSIUM CHLORIDE SWATHI CR [id number] Kylee Burr PA-C Start: 03-20-2011 potassium chlo ride ER (K-DUR, KLOR-CON) 20 mEq tablet Indications: DVT (deep venous thrombosis) (HCC) Take 20 mEq by mouth once daily. 0 03/20/2011 Active Comment on above: Take 20 mEq by mouth once daily. prochlorperazine 5 mg oral tablet (3 sources) Phenothiazine Start: 2023 take 1 tablet by mouth three times daily for nausea and vomiting prochlorperazine (Compazine) 5 MG tablet take 1 tablet by mouth three times a day if needed for nausea and vomiting 12/21/2023 Active 24 hr divalproex sodium 500 mg extended release oral tablet (12 sources) Mood Stabilizer, Anti-epileptic Agent Start: 2023 take 1 tablet by mouth once daily in the morning divalproex (Depakote ER) 500 MG 24 hr tablet Indications: Chronic migraine without aura, intractable, without status migrainosus (CMS/HCC) take 1 tablet by mouth every morning 30 tablet 03/27/2024 Active take 1 tablet by toney th once daily at bedtime divalproex DR (DEPAKOTE) 500 mg EC table t Take 500 mg by mouth daily at bedtime. 0 Active Comment on above: Take 500 mg by mouth daily at bedtime. 24 hr verapamil hydrochloride 120 mg extended release oral capsule (20 sources) Calcium Channel Valentina Start: 11-25-2022 take 1 capsule by mouth once daily verapamil ER (Verelan) 120 MG 24 hr capsule Take 240 mg by mouth Daily 11/25/2022 Active Start: 03-15-2013 take 1 tablet by toney th once daily VERAPAMIL SR 120 mg CR tablet Indications: DVT (deep venous thrombosis) (HCC) , Coagulation defect (HCC) Take 120 mg by mouth once daily. 0 03/15/2013 Active take 1 capsule by mo ut once daily verapamil ER (VERELAN) 240 mg 24 hr capsule Take 240 mg by mouth once daily. 0 Active Comment on above: Take 120 mg by mouth once daily. Take 240 mg by mouth once daily. Completed/Discontinued Medications Medication Drug Class(es) Dates Sig (Normalized) Sig (Original) acetaminophen 500 mg oral tablet (9 sources) take 2 tablets by mouth every eight hours as needed acetaminophen (TYLENOL EXTRA STRENGTH) 500 mg tablet Take 1,000 mg by mouth every 8 hours as needed. 0 Active Comment on above: Take 1,000 mg by toney every 8 hours as needed. albuterol 4 mg oral tablet (20 sources) beta2-Adrenergic Agonist Start: 05-01-2015 End: 11-05-2015 take 1 tablet by mouth twice daily ALBUTEROL SULFATE 4 MG TABS One tablet by mouth twice daily ALBUTEROL SULFATE [id number] Luis Felipe Garzon MD Start: 05-11-2013 take 2 tablets by mo [facility] twice daily ALBUTEROL 4 mg 12 hr tablet Indications: DVT (deep venous thrombosis) (HCC) , Coagulation defect (HCC) Take two tablets by mouth twice daily. 0 05/11/2013 Active ALBUTEROL SULFAT E 4 MG TABS 2 tabs twice a day ALBUTEROL SULFATE [id number] Zachary Cardenas Comment on above: Take two tablets by mouth twice daily. ALPRAZolam 0.25 mg oral tablet (19 sources) Benzodiazepine Start: 4 take 1 tablet by mouth once daily XANAX 0.25 MG TABS One tablet by mouth daily ALPRAZOLAM [id number] Luis Felipe Garzon MD Start: 03-20-2011 take 1 tablet by toney every eight hours as needed ALPRAZolam 0.25 mg ORAL tablet Indications: DVT (deep venous thrombosis) (HCC) Take 1 tablet by mouth every 8 hours as needed. 0 03/20/2011 Active take 1 tablet by toney twice daily XANAX 0.25 MG TABS One tablet by mouth twice daily ALPRAZOLAM [id number] Zachary Cardenas Comment on above: Take 1 tablet by toney th every 8 hours as needed. apixaban 5 mg oral tablet (20 sources) Factor Xa Inhibitor Start: 04-27-2016 End: 10-27-2016 take 1 tablet by mouth twice daily ELIQUIS 5 MG TABS One tablet by mouth twice daily APIXABAN [id number] Kylee Burr PA-C take 1 tablet by mouth every twe lve hours Eliquis 5 MG tablet Take 5 mg by mouth every 12 (twelve) hours. Active Comment on above: Take 5 mg by mouth t wice daily. 12 hr buPROPion hydrochloride 90 mg / naltrexone hydrochloride 8 mg extended release oral tablet (5 sources) Opioid Antagonist, Aminoketone Start: 6 take 2 tablets by mouth twice daily CONTRAVE 8-90 MG [id number] Two tablets by mouth twice daily NALTREXONE-BUPROPIO N HCL [id number] Kylee Burr PA-C Start: 11-05-2015 take 2 tablets by mo [facility] twice daily CONTRAVE 8-90 MG [id number] Two tablets by mouth twice daily NALTREXONE-BUPROPION HCL [id number] Kylee Burr PA-C calcium carbonate 1500 mg oral tablet (9 sources) take 1 tablet by mouth once daily calcium carbonate (CALTRATE) 600 mg calcium (1,500 mg) tab Take 600 mg by mouth once daily. 0 Active Comment on above: Take 600 mg by mouth once daily. cyclobenzaprine hydrochloride 10 mg oral tablet (20 sources) Muscle Relaxant Start: 05-01-20 15 End: 04-27-20 16 take 1 tablet by mouth twice daily CYCLOBENZAPRINE HCL 10 MG TABS One tablet by mouth twice daily CYCLOBENZAPRINE HCL [id number] Luis Felipe Garzon MD Start: 02-22-2013 take 1 tablet by toney once daily cyclobenzaprine (FLEXERIL) 10 mg tablet Take 1 tablet by mouth once daily. 0 02/22/2013 Active Comment on above: Take 1 tablet by toney once daily. docusate sodium 50 mg / sennosides, nursing home 8.6 mg oral tablet (9 sources) take 2 tablets by mouth twice daily senna-docusate (SENNA-S) 8.6-50 mg per tablet Take 2 tablets by mouth twice daily. 0 Active Comment on above: Take 2 tablets by mo uth twice daily. ergocalciferol 28805 unt oral capsule (20 sources) Provitamin D2 Compound Start: 05-07-20 17 take 1 tablet by mouth every month VITAMIN D (ERGOCALCIFEROL) 61646 UNIT CAPS One tablet by mouth every month ERGOCALCIFEROL [id number] Luis Felipe Garzon MD Start: 05-07-2017 take 1 tablet by toney th every month VITAMIN D (ERGOCALCIFEROL) 54377 UNIT CAPS One tablet by mouth every month ERGOCALCIFEROL [id number] Luis Felipe Garzon MD Start: 05-01-2015 End: 11-05-2015 take 1 tablet by mouth every week VITAMIN D (ERGOCALCIFEROL) 77799 UNIT CAPS One tablet by mouth weekly ERGOCALCIFEROL [id number] Luis Felipe Garzon MD Start: 05-01-2015 End: 11-05-2015 take 1 tablet by mouth every week VITAMIN D (ERGOCALCIFEROL) 49652 UNIT CAPS One tablet by mouth weekly ERGOCALCIFEROL [id number] Luis Felipe Garzon MD take 1.25 mg by mout h every week ergocalciferol (Vitamin D2) 1.25 MG (28893 UT) capsule Take 50,000 Units by mouth once a week Active Comment on above: Take 50,000 Units by mouth one time a week. furosemide 40 mg oral tablet (20 sources) Loop Diuretic Start: 05-07-2017 End: 11-05-2015 take 1 tablet by mouth once daily FUROSEMIDE 40 MG TABS One tablet by mouth daily FUROSEMIDE [id number] Luis Felipe Garzon MD End: 11-05-2015 take 1 tablet by mouth once daily furosemide (LASIX) 40 mg tablet Take 40 mg by mouth once daily. 0 Active Comment on above: Take 40 mg by mouth once daily. hydroCHLOROthiazide 12.5 mg / lisinopril 20 mg oral tablet (20 sources) Thiazide Diuretic, Angiotensin Converting Enzyme Inhibitor Start: 10-11-19 13 End: 09-06-20 14 take 1 tablet by mouth once daily PRINZIDE 20-12.5 MG TABS One tablet by mouth daily LISINOPRIL-HYDROCH LOROTHIAZIDE [id number] Kylee Burr PA-C Start: 10-11-2012 take 1 tablet by toney th once daily PRINZIDE 20-12.5 MG TABS One tablet by m outh daily LISINOPRIL-HYDROCHLOROTHIAZIDE [id number] Padimni Ibrahim RN Start: 10-11-2012 End: 09-06-2014 take 1 tablet by mouth once daily PRINZIDE 20-12.5 MG TABS One tablet by m outh daily LISINOPRIL-HYDROCHLOROTHIAZIDE [id number] Kylee Burr PA-C Start: 10-11-2012 take 1 tablet by toney th once daily PRINZIDE 20-12.5 MG TABS One tablet by m outh daily LISINOPRIL-HYDROCHLOROTHIAZIDE [id number] Padmini Ibrahim RN Start: 03-20-2011 End: 11-05-2015 take 1 tablet by mouth once daily lisinopril-hydrochlorothiazide (PRINZIDE ) 20-12.5 mg ORAL per tablet Indications: DVT (deep venous thrombosis) (HCC) Take 1 tablet by mouth once daily. 0 03/20/2011 Active take 1 tablet by toney th once daily PRINZIDE 20-12.5 MG TABS One tablet by m outh daily LISINOPRIL-HYDROCHLOROTHIAZIDE [id number] Zachary Cardenas Comment on above: Take 1 tablet by toney th once daily. losartan potassium 50 mg oral tablet (9 sources) Angiotensin 2 Receptor Valentina take 1 tablet by mouth once daily losartan (COZAAR) 50 mg tablet Take 50 mg by mouth once daily. 0 Active Comment on above: Take 50 mg by mouth once daily. metOLazone 5 mg oral tablet (9 sources) Thiazide-like Diuretic take 1 tablet by mouth once daily metOLAzone 5 mg tablet Indications: DVT (deep venous thrombosis) (HCC) , Coagulation defect (HCC) Take 5 mg by mouth once daily. 0 Active Comment on above: Take 5 mg by mouth o nce daily. metoprolol tartrate 50 mg oral tablet (20 sources) beta-Adrenergic Valentina Start: 3 take 1 tablet by mouth twice daily METOPROLOL TARTRATE 25 MG TABS One tablet by mouth twice daily METOPROLOL TARTRATE [id number] Luis Felipe Garzon MD Start: 10-19-2012 End: 06-08-2017 METOPROLOL TARTRATE 25 MG TA BS 1/2 tablet by mouth twice daily x 1 week then 1/2 tablet by mouth every other day for 1 week then STOP METOPROLOL TARTRATE [id number] Mary Abreu Start: 03-20-2011 take 1 tablet by toney th twice daily metoprolol tartrate 50 mg ORAL tablet Indications: DVT (deep venous thrombosis) ([facility]) Take 1 tablet by mouth twice daily. 0 03/20/2011 Active Comment on above: Take 1 tablet by toney th twice daily. montelukast 10 mg oral tablet (17 sources) Leukotriene Receptor Antagonist Start: 03-20-20 11 take 1 tablet by mouth once daily montelukast (SINGULAIR) 10 mg tablet Indications: DVT (deep venous thrombosis) (HCC) Take 1 tablet by mouth once daily. 0 03/20/2011 Active Comment on above: Take 1 tablet by toney th once daily. multivitamin tablet (9 sources) take 1 tablet by mouth once daily multivitamin tablet Take 1 tablet by mouth once daily. 0 Active Comment on above: Take 1 tablet by toney th once daily. niacin 500 mg oral tablet (9 sources) Nicotinic Acid take 1 tablet by mouth once daily at bedtime niacin (NIACIN) 500 mg tablet Take 500 mg by mouth daily at bedtime. 0 Active Comment on above: Take 500 mg by mouth daily at bedtime. oxyCODONE hydrochloride 5 mg oral tablet (9 sources) Opioid Agonist take 1 tablet by mouth every four hours as needed oxyCODONE IR (ROXICODONE) 5 mg immediate release tablet Take 5 mg by mouth every 4 hours as needed for pain. 0 Active Comment on above: Take 5 mg by mouth e very 4 hours as needed for pain. polyethylene glycol 3350 72034 mg powder for oral solution (9 sources) Osmotic Laxative polyethylene gl ycol 3350 (MIRALAX) 17 gram packet Take 17 g by mouth once daily. Dissolve dose in 4 - 8 ounces of liquid and take as directed. 0 Active Comment on above: Take 17 g by mouth o nce daily. Dissolve dose in 4 - 8 ounces of liquid and take as directed. 1000 ml potassium chloride 0.02 meq/ml / sodium chloride 9 mg/ml injection (5 sources) take 1 tablet by mouth twice daily POTASSIUM CHLORIDE IN NACL 20-0.9 MEQ/L-% SOLN One tablet by mouth twice daily POTASSIUM CHLORIDE IN NACL [id number] Zachary Cardenas pravastatin sodium 80 mg oral tablet (14 sources) HMG-CoA Reductase Inhibitor Start: 03-20-20 11 take 1 tablet by mouth once daily at bedtime pravastatin 80 mg ORAL tablet Indications: DVT (deep venous thrombosis) (HCC) Take 1 tablet by mouth daily at bedtime. 0 03/20/2011 Active Comment on above: Take 1 tablet by toney th daily at bedtime. vilazodone hydrochloride 20 mg oral tablet (5 sources) Start: 05-07-20 17 take 1 tablet by mouth once daily VIIBRYD 20 MG TABS One tablet by mouth daily VILAZODONE HCL [id number] Luis Felipe Garzon MD warfarin sodium 1 mg oral tablet (20 sources) Vitamin K Antagonist Start: 09-15-20 13 warfarin (COUMADIN) 1 mg tablet Take 3mg (three tablets) daily as directed. 90 tablet 5 09/15/2013 Active Start: 01-16-2013 End: 04-27-2016 COUMADIN 1 MG TABS take as d irected - Dr Shine polk, current dose 3.5 mg daily WARFARIN SODIUM [id number] Luis Felipe Garzon MD Start: 10-11-2012 End: 10-24-2012 take 1 tablet by mouth once daily COUMADIN 4 MG TABS One tablet by mouth daily managed per Dr Radford WARFARIN SODIUM [id number] Olamide Dominguez RN End: 10-24-2012 WARFARIN SODIUM 1 MG TABS 1/ 2 tab once a day WARFARIN SODIUM [id number] Olamide Dominguez RN Comment on above: Take 3mg (three tabl ets) daily as directed. zolpidem tartrate 10 mg oral tablet (14 sources) gamma-Aminobutyric Acid-ergic Agonist Start: 03-20-2011 take 1 tablet by mouth at bedtime as needed zolpidem (AMBIEN) 10 mg ORAL Tab Indications: DVT (deep venous thrombosis) (HCC) Take 1 tablet by mouth at bedtime as needed. FOR INSOMNIA 0 03/20/2011 Active Comment on above: Take 1 tablet by toney th at bedtime as needed. FOR INSOMNIA Problems Active Problems Problem Classification Problem Date Documented Da te Episodic/Chronic Adjustment disorders (5 sources) Stress; Translations: [Reaction to severe stress, unspecified] Onset: 01-17-2024 01-17-2024 Chronic Administrative/social admission (2 sources) Stress 07-03-2024 Episodic Cardiac dysrhythmias (10 sources) Atrial fibrillation; Translations: [Permanent atrial fibrillation ] Onset: 10-19-2012 10-19-2012 Chronic Coagulation and hemorrhagic disorders (11 sources) Blood coagulation disorder; Translations: [Coagulation defect, unspecified] Onset: 09-08-2011 Chronic Deficiency and other anemia (12 sources) Iron deficiency anemia due to blood loss; Translations: [Iron deficiency anemia secondary to blood loss (chronic)] Onset: 06-18-2022 Chronic Deficiency and other anemia (1 source) Iron deficiency anemia secondary to blood loss (chronic); Translations: [Iron deficiency anemia due to chronic blood loss] Onset: 06-18-2022 Chronic Disorders of lipid metabolism (5 sources) Hyperlipidemia; Translations: [Hyperlipidemia, unspecified] Onset: 10-11-2012 10-11-2012 Chronic Essential hypertension (15 sources) Benign hypertension; Translations: [Hypertensive disorder] Onset: 10-11-2012 Resolved: 04-23-2016 04-23-2016 Chronic Headache; including migraine (10 sources) Migraine without aura; Translations: [Migraine without aura, not intractable, without status migrainosus] Onset: 03-30-2023 03-30-2023 Chronic Other gastrointestinal disorders (11 sources) Malabsorption - iron; Translations: [Intestinal malabsorption, unspecified] Onset: 06-18-2022 Chronic Other gastrointestinal disorders (1 source) Intestinal malabsorption, unspecified; 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] Onset: 06-18-2022 Chronic Other nervous system disorders (6 sources) Neuropathy; Translations: [Polyneuropathy, unspecified] Onset: 07-03-2024 07-03-2024 Chronic Other nervous system disorders (6 sources) Dysarthria; Translations: [Dysarthria and anarthria] Onset: 07-03-2024 07-03-2024 Episodic Other nutritional; endocrine; and metabolic disorders (18 sources) Body mass index (BMI) 40.0-44.9, adult; Translations: [Body mass index (BMI) 50-59.9 , adult] Onset: 03-15-2014 05-07-2017 Chronic Other nutritional; endocrine; and metabolic disorders (1 source) Body mass index (BMI) 50-59.9 , adult; Translations: [Body mass index (BMI) 50-59.9 , adult] Onset: 03-15-2014 03-15-2014 Chronic Other nutritional; endocrine; and metabolic disorders (1 source) Body mass index (BMI) 39.0-39.9, adult; Translations: [Body mass index (BMI) 39.0-39.9, adult] Onset: 03-15-2014 10-27-2016 Chronic Phlebitis; thrombophlebitis and thromboembolism (1 source) 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; Translations: [Chronic embolism and thrombosis of unspecified deep veins of lower extremity, bilateral] Chronic Residual codes; unclassified (8 sources) Obstructive sleep apnea syndrome; Translations: [Obstructive sleep apnea (adult) (pediatric)] Onset: 03-30-2023 03-30-2023 Chronic Residual codes; unclassified (6 sources) Amnesia; Translations: [Other amnesia] Onset: 07-03-2024 07-03-2024 Episodic Spondylosis; intervertebral disc disorders; other back problems (7 sources) Chronic low back pain; Translations: [Chronic bilateral low back pain without sciatica] Onset: 04-05-2024 04-05-2024 Episodic Unclassified (7 sources) Parkinson's disease; Translations: [Parkinson's disease] Onset: 03-30-2023 03-30-2023 Chronic Unclassified (1 source) Long-term drug therapy; Translations: [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] Onset: 10-27-2016 10-27-2016 Past or Other Problems Problem Classification Problem Date Documented Da te Episodic/Chronic Malaise and fatigue (13 sources) Fatigue; Translations: [Left hemiparesis] Onset: 10-11-2012 Resolved: 04-23-2016 10-11-2012 Episodic Open wounds of extremities (10 sources) Open wound of lower limb with complication; Translations: [Open wound of knee, leg [except thigh], and ankle, complicated] Onset: 05-18-2012 Resolved: 04-23-2016 06-03-2012 Episodic Other aftercare (4 sources) Other long-term (current) drug therapy; Translations: [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] Onset: 10-27-2016 10-27-2016 Episodic Other lower respiratory disease (10 sources) Dyspnea; Translations: [Shortness of breath] Onset: 10-19-2012 Resolved: 04-23-2016 04-23-2016 Episodic Phlebitis; thrombophlebitis and thromboembolism (9 sources) Deep venous thrombosis; Translations: [Acute embolism and thrombosis of unspecified deep veins of unspecified lower extremity] Onset: 03-20-2011 03-20-2011 Episodic Residual codes; unclassified (2 sources) Edema; Translations: [Edema, unspecified] Onset: 10-11-2012 Resolved: 04-23-2016 10-11-2012 Episodic Residual codes; unclassified (1 source) FH: Hypertension; Translations: [Family history of ischemic heart disease and other diseases of the circulatory system] 09-06-2014 Episodic Residual codes; unclassified (1 source) Family history of stroke; Translations: [Family history of stroke] 09-06-2014 Episodic Residual codes; unclassified (3 sources) Insomnia; Translations: [Insomnia, unspecified] Onset: 04-05-2024 04-05-2024 Episodic Unclassified (20 sources) Family history of ischemic heart disease and other diseases of the circulatory system; Translations: [Edema] Onset: 10-11-2012 Resolved: 04-23-2016 03-15-2014 Episodic Results Test Name Value Interpretation Reference Range Facility CBC W Auto Differential pane l (Bld)on 12-11-2022 Basophils (Bld) [#/Vol] 0.04 10*3/uL Normal <0.11 [facility] Comment on above: Order Comment: Speci men Type: BLOOD SPECIMEN Ordering Facility: [facility] Address: [address] [place] [phone] Performed By: #### 5 0190-8, 2276-4 #### [facility] CLIA [id number] [address] [place] [address] [place] Basophils/100 WBC (Bld) 1.0 % [facility] Comment on above: Order Comment: Speci men Type: BLOOD SPECIMEN Ordering Facility: [facility] Address: [address] [place] [address] Performed By: #### 5 0190-8, 2275-4 #### [facility] CLIA [id number] [address] [place] [address] [place] Differential cell count method Nom (Bld) Auto Normal [facility] Comment on above: Order Comment: Speci men Type: BLOOD SPECIMEN Ordering Facility: [facility] Address: [address] [place] [address] Performed By: #### 5 0190-8, 2275- #### [facility] CLIA [id number] [address] [place] [address] [place] Eosinophils (Bld) [#/Vol] 0.10 10*3/uL Normal <0.46 [facility] Comment on above: Order Comment: Speci men Type: BLOOD SPECIMEN Ordering Facility: [facility] Address: [address] [place] [address] Performed By: #### 5 0190-8, 2275-12 #### [facility] CLIA [id number] [address] [place] [address] [place] Eosinophils/100 WBC (Bld) 2.5 % [facility] Comment on above: Order Comment: Speci men Type: BLOOD SPECIMEN Ordering Facility: [facility] Address: [address] [place] [address] Performed By: #### 5 0190-8, 2275- #### [facility] CLIA [id number] [address] [place] [address] [place] Erythrocyte distribution width (RBC) [Ratio] 13.7 % Normal 11.5-15.0 [facility] Comment on above: Order Comment: Speci men Type: BLOOD SPECIMEN Ordering Facility: [facility] Address: [address] [place] [address] Performed By: #### 5 0190-8, 2275- #### [facility] CLIA [id number] [address] [place] [address] [place] Hematocrit (Bld) [Volume fraction] 38.8 % Normal 36.0-46.0 [facility] Comment on above: Order Comment: Speci men Type: BLOOD SPECIMEN Ordering Facility: [facility] Address: [address] [place], [place] [address] Performed By: #### 5 0190-8, 2275-12 #### [facility] CLIA [id number] [address] [place] [address] [place] Hemoglobin (Bld) [Mass/Vol] 13.1 g/dL Normal 11.5-15.5 [facility] Comment on above: Order Comment: Speci men Type: BLOOD SPECIMEN Ordering Facility: [facility] Address: [address] [place] [address] Performed By: #### 5 0190-8, 2275-12 #### [facility] CLIA [id number] [address] [place] [address] [place] Immature granulocytes (Bld) [#/Vol] 10*3/uL Normal <0.10 [facility] Comment on above: Order Comment: Speci men Type: BLOOD SPECIMEN Ordering Facility: [facility] Address: [address] [place] [address] Performed By: #### 5 0190-8, 2275-12 #### [facility] CLIA [id number] [address] [place] [address] [place] Immature granulocytes/100 WBC (Bld) 0.2 % [facility] Comment on above: Order Comment: Speci men Type: BLOOD SPECIMEN Ordering Facility: [facility] Address: [address] [place] [address] Performed By: #### 5 0190-8, 2275-4 #### [facility] CLIA [id number] [address] [place] [address] [place] Lymphocytes (Bld) [#/Vol] 1.07 10*3/uL Normal 1.00-4.00 [facility] Comment on above: Order Comment: Speci men Type: BLOOD SPECIMEN Ordering Facility: [facility] Address: [address] [place] [address] Performed By: #### 5 0190-8, 2275-4 #### [facility] CLIA [id number] [address] [place] [address] [place] Lymphocytes/100 WBC (Bld) 26.4 % [facility] Comment on above: Order Comment: Speci men Type: BLOOD SPECIMEN Ordering Facility: [facility] Address: [address] [place] [address] Performed By: #### 5 0190-8, 2275-4 #### [facility] CLIA [id number] [address] [place] [address] [place] MCH (RBC) [Entitic mass] 31.4 pg Normal 26.0-34.0 [facility] Comment on above: Order Comment: Speci men Type: BLOOD SPECIMEN Ordering Facility: [facility] Address: [address] [place], [place] [address] Performed By: #### 5 0190-8, 2275-4 #### [facility] CLIA [id number] [address] [place] [address] [place] MCHC (RBC) [Mass/Vol] 33.8 g/dL Normal 30.5-36.0 [facility] Comment on above: Order Comment: Speci men Type: BLOOD SPECIMEN Ordering Facility: [facility] Address: [address] [place], [place] [address] Performed By: #### 5 0190-8, 2275- #### [facility] CLIA [id number] [address] [place] [address] [place] MCV (RBC) [Entitic vol] 93.0 fL Normal 80.0-100.0 [facility] Comment on above: Order Comment: Speci men Type: BLOOD SPECIMEN Ordering Facility: [facility] Address: [address] [place] [address] Performed By: #### 5 0190-8, 2275-12 #### [facility] CLIA [id number] [address] [place] [address] [place] Monocytes (Bld) [#/Vol] 0.44 10*3/uL Normal <0.87 [facility] Comment on above: Order Comment: Speci men Type: BLOOD SPECIMEN Ordering Facility: [facility] Address: [address] [place], [place] [address] Performed By: #### 5 0190-8, 2275-12 #### [facility] CLIA [id number] [address] [place] [address] [place] Monocytes/100 WBC (Bld) 10.8 % [facility] Comment on above: Order Comment: Speci men Type: BLOOD SPECIMEN Ordering Facility: [facility] Address: [address] [place], [place] [address] Performed By: #### 5 0190-8, 2275-12 #### [facility] CLIA [id number] [address] [place] [address] [place] Neutrophils (Bld) [#/Vol] 2.40 10*3/uL Normal 1.45-7.50 [facility] Comment on above: Order Comment: Speci men Type: BLOOD SPECIMEN Ordering Facility: [facility] Address: [address] [place], [place] [address] Performed By: #### 5 0190-8, 2276-4 #### [facility] CLIA [id number] [address] [place] [address] [place] Neutrophils/100 WBC (Bld) 59.1 % [facility] Comment on above: Order Comment: Speci men Type: BLOOD SPECIMEN Ordering Facility: [facility] Address: [address] [place], [place] [address] Performed By: #### 5 0190-8, 2275-4 #### [facility] CLIA [id number] [address] [place] [address] [place] Nucleated RBC (Bld) [#/Vol] 10*3/uL Normal <0.01 [facility] Comment on above: Order Comment: Speci men Type: BLOOD SPECIMEN Ordering Facility: [facility] Address: [address] [place] [address] Performed By: #### 5 0190-8, 2275-4 #### [facility] CLIA [id number] [address] [place] [address] [place] Nucleated RBC/100 WBC (Bld) [Ratio] 0.0 /100 WBC [facility] Comment on above: Order Comment: Speci men Type: BLOOD SPECIMEN Ordering Facility: [facility] Address: [address] [place], [place] [address] Performed By: #### 5 0190-8, 2275-4 #### [facility] CLIA [id number] [address] [place] [address] [place] Platelet mean volume (Bld) [Entitic vol] 9.6 fL Normal 9.0-12.7 [facility] Comment on above: Order Comment: Speci men Type: BLOOD SPECIMEN Ordering Facility: [facility] Address: [address] [place], [place] [address] Performed By: #### 5 0190-8, 2275-4 #### [facility] CLIA [id number] [address] [place] [address] [place] Platelets (Bld) [#/Vol] 186 10*3/uL Normal 150-400 [facility] Comment on above: Order Comment: Speci men Type: BLOOD SPECIMEN Ordering Facility: [facility] Address: [address] [place] [address] Performed By: #### 5 0190-8, 2276-4 #### [facility] CLIA [id number] [address] [place] [address] [place] RBC (Bld) [#/Vol] 4.17 10*6/uL Normal 3.90-5.20 [facility] Comment on above: Order Comment: Speci men Type: BLOOD SPECIMEN Ordering Facility: [facility] Address: [address] [place] [address] Performed By: #### 5 0190-8, 2276-4 #### [facility] CLIA [id number] [address] [place] [address] [place] WBC (Bld) [#/Vol] 4.06 10*3/uL Normal 3.70-11.00 [facility] Comment on above: Order Comment: Speci men Type: BLOOD SPECIMEN Ordering Facility: [facility] Address: [address] [place] [address] Performed By: #### 5 0190-8, 2276-4 #### [facility] CLIA [id number] [address] [place] [address] [place] CNPNon 12-11-2022 CNPN Telephone (HEMAWS) VIOLA BENNETT ([id number]) 1950 F Date Time Provider Department 12/11/22 PRABHAKARLUIS FELIPE During your visit today, we recorded the following information about you: Luis Felipe RadfordDO 12/11/2022 7:04 PM Signed Can let her know that her blood counts and iron levels are doing well. Did she ever see Dr. Pandya for colonoscopy and EGD? Luis Felipe RadfordDO J[facility]id [facility] 12/13/2022 12:02 PM Signed I called and spoke to Viola and let her know the below information, she stated understanding. Patient stated that she did not have a colonoscopy/EGD done with at this time. She stated she had a colonoscopy scheduled with him but then ended up in the hospital from falling and it was canceled. She plans to have it rescheduled. Javid [facility] Luis Felipe RadfordDO 12/14/2022 9:28 AM Signed I saw her initially in May of last year so recommend rescheduling as soon as able. Luis Felipe RadfordDO [facility] 12/14/2022 10:53 AM Signed I called and left Viola know that she should try rescheduling as soon as possible and she stated understanding. [facility] As of Date: 12/11/2022 Noted Allergy Reaction BENADRYL (DIPHENHYDRAMINE HCL) 03/20/2011 9 - Itching CEFDINIR 09/26/2012 4 - Hives SULFA (SULFONAMIDE ANTIBIOTICS) 03/20/2011 2 - Rash 9 - Itching Date Reviewed: 06/16/2022 Reviewed by: Lynnette Wellington MA - Fully Assessed Reason for Visit: Results [95] Prescriptions as of 12/14/2022 - citalopram (CELEXA) 20 mg tablet Take 20 mg by mouth once daily. - losartan (COZAAR) 50 mg tablet Take 50 mg by mouth once daily. - senna-docusate (SENNA-S) 8.6-50 mg per tablet Take 2 tablets by mouth twice daily. - niacin (NIACIN) 500 mg tablet Take 500 mg by mouth daily at bedtime. - amitriptyline (ELAVIL) 25 mg tablet Take 25 mg by mouth daily at bedtime. - galcanezumab-gnlm (EMGALITY SYRINGE) 120 mg/mL syringe Inject 120 mg subcutaneously once every month. Do not shake. - multivitamin tablet Take 1 tablet by mouth once daily. - calcium carbonate (CALTRATE) 600 mg calcium (1,500 mg) tab Take 600 mg by mouth once daily. - ergocalciferol 50,000 unit capsule (VITAMIN D2, DRISDOL) Take 50,000 Units by mouth one time a week. - divalproex DR (DEPAKOTE) 500 mg EC tablet Take 500 mg by mouth daily at bedtime. - Ascorbic Acid (VITAMIN C) 1,000 mg tablet Take 1,000 mg by mouth once daily. - polyethylene glycol 3350 (MIRALAX) 17 gram packet Take 17 g by mouth once daily. Dissolve dose in 4 - 8 ounces of liquid and take as directed. - verapamil ER (VERELAN) 240 mg 24 hr capsule Take 240 mg by mouth once daily. - apixaban (ELIQUIS) 5 mg tab(s) Take 5 mg by mouth twice daily. - acetaminophen (TYLENOL EXTRA STRENGTH) 500 mg tablet Take 1,000 mg by mouth every 8 hours as needed. - ferrous sulfate 325 mg (65 mg iron) tablet Take 325 mg by mouth once daily. - oxyCODONE IR (ROXICODONE) 5 mg immediate release tablet Take 5 mg by mouth every 4 hours as needed for pain. - warfarin (COUMADIN) 1 mg tablet Take 3mg (three tablets) daily as directed. - ALBUTEROL 4 mg 12 hr tablet Take two tablets by mouth twice daily. - VERAPAMIL SR 120 mg CR tablet Take 120 mg by mouth once daily. - LEVOCETIRIZINE DIHYDROCHLORIDE (XYZAL ORAL) Take 10 mg by mouth once daily. - metOLAzone 5 mg tablet Take 5 mg by mouth once daily. - gabapentin 600 mg tablet Take 600 mg by mouth once daily. - cyclobenzaprine (FLEXERIL) 10 mg tablet Take 1 tablet by mouth once daily. - furosemide (LASIX) 40 mg tablet Take 40 mg by mouth once daily. - metoprolol tartrate 50 mg ORAL tablet Take 1 tablet by mouth twice daily. - zolpidem (AMBIEN) 10 mg ORAL Tab Take 1 tablet by mouth at bedtime as needed. FOR INSOMNIA - lisinopril-hydrochlo rothiazide (PRINZIDE) 20-12.5 mg ORAL per tablet Take 1 tablet by mouth once daily. - montelukast (SINGULAIR) 10 mg tablet Take 1 tablet by mouth once daily. - omeprazole (PRILOSEC) 20 mg capsule Take 1 capsule by mouth once daily. - citalopram (CELEXA) 40 mg ORAL tablet Take 1 tablet by mouth once daily. - pravastatin 80 mg ORAL tablet Take 1 tablet by mouth daily at bedtime. - potassium chloride ER (K-DUR, KLOR-CON) 20 mEq tablet Take 20 mEq by mouth once daily. - ALPRAZolam 0.25 mg ORAL tablet Take 1 tablet by mouth every 8 hours as needed. Problem List As Of Date 12/11/2022 Noted Resolved DVT (deep venous thrombosis) [I82.409] 03/20/2011 Coagulation defect [D68.9] 09/08/2011 Iron deficiency anemia due to chronic blood los*06/18/2022 Iron malabsorption [K90.9] 06/18/2022 Encounter Status:Closed by JAVID BOB on 12/13/22 [facility] 2022 Ferritin [Mass/Vol] 80.2 ng/mL Normal 14.7-205.1 [facility] Comment on above: Order Comment: Speci men Type: BLOOD SPECIMEN Ordering Facility: [facility] Address: [address] [place], [place] [phone] Performed By: #### 5 0190-8, 2275-12 #### [facility] CLIA [id number] [address] [place] [address] [place] Iron and Iron [facility] capaci [facility] Iron [Mass/Vol] 94 ug/dL Normal 41-186 [facility] Comment on above: Order Comment: Speci men Type: BLOOD SPECIMEN Ordering Facility: [facility] Address: [address] [place], [place] [phone] Performed By: #### 5 0190-8, 2275-12 #### [facility] CLIA [id number] [address] [place] [address] [place] Iron binding capacity [Mass/Vol] 240 ug/dL Normal 232-386 [facility] Comment on above: Order Comment: Speci men Type: BLOOD SPECIMEN Ordering Facility: [facility] Address: [address] [place] [address] Performed By: #### 5 0190-8, 2275-4 #### [facility] CLIA [id number] [address] [place] [address] [facility] Iron/TIBC [Molar ratio] 39.2 % Normal 15.0-57.0 [facility] Comment on above: Order Comment: Speci men Type: BLOOD SPECIMEN Ordering Facility: [facility] Address: [address] [place] [address] Performed By: #### 5 0190-8, 2275-12 #### [facility] CLIA [id number] [address] [place] [address] [facility] Vishal 09-02-2022 CNPN Telephone (HEMAWS) VIOLA BENNETT ([id number]) 1950 F Date Time Provider Department 09/02/22 LUIS FELIPE RADFORD During your visit today, we recorded the following information about you: Lizbeth Quiñones Pss 09/02/2022 3:30 PM Signed Patient is planning to have a colonoscopy possible 09/[address] Pandya but needs to know when to stop blood thinners. Please advise the patient. Marce Galloway LPN 09/02/2022 4:04 PM Signed Call placed to pt. She states she called Dr Pandya's office to tell them Dr Radford's instructions regarding her Eliquis (per note from earlier today) She states that Dr Pandya would really like to have her hold her Eliquis for 48 hours in case he has to do a biopsy. Please advise. Marce Radford DO 09/02/2022 4:40 PM Signed Yes, that would be okay. DO Beatriz Rivers LPN 09/02/2022 4:48 PM Signed Patient notified and a copy of this note was faxed to Dr. Pandya's office. Beatriz Scott LPN Allergies As of Date: 09/02/2022 Noted Allergy Reaction BENADRYL (DIPHENHYDRAMINE HCL) 03/20/2011 9 - Itching CEFDINIR 09/26/2012 4 - Hives SULFA (SULFONAMIDE ANTIBIOTICS) 03/20/2011 2 - Rash 9 - Itching Date Reviewed: 06/16/2022 Reviewed by: Lynnette Wellington MA - Fully Assessed Reason for Visit: Patient Question [1477] Prescriptions as of 09/02/2022 - citalopram (CELEXA) 20 mg tablet Take 20 mg by mouth once daily. - losartan (COZAAR) 50 mg tablet Take 50 mg by mouth once daily. - senna-docusate (SENNA-S) 8.6-50 mg per tablet Take 2 tablets by mouth twice daily. - niacin (NIACIN) 500 mg tablet Take 500 mg by mouth daily at bedtime. - amitriptyline (ELAVIL) 25 mg tablet Take 25 mg by mouth daily at bedtime. - galcanezumab-gnlm (EMGALITY SYRINGE) 120 mg/mL syringe Inject 120 mg subcutaneously once every month. Do not shake. - multivitamin tablet Take 1 tablet by mouth once daily. - calcium carbonate (CALTRATE) 600 mg calcium (1,500 mg) tab Take 600 mg by mouth once daily. - ergocalciferol 50,000 unit capsule (VITAMIN D2, DRISDOL) Take 50,000 Units by mouth one time a week. - divalproex DR (DEPAKOTE) 500 mg EC tablet Take 500 mg by mouth daily at bedtime. - Ascorbic Acid (VITAMIN C) 1,000 mg tablet Take 1,000 mg by mouth once daily. - polyethylene glycol 3350 (MIRALAX) 17 gram packet Take 17 g by mouth once daily. Dissolve dose in 4 - 8 ounces of liquid and take as directed. - verapamil ER (VERELAN) 240 mg 24 hr capsule Take 240 mg by mouth once daily. - apixaban (ELIQUIS) 5 mg tab(s) Take 5 mg by mouth twice daily. - acetaminophen (TYLENOL EXTRA STRENGTH) 500 mg tablet Take 1,000 mg by mouth every 8 hours as needed. - ferrous sulfate 325 mg (65 mg iron) tablet Take 325 mg by mouth once daily. - oxyCODONE IR (ROXICODONE) 5 mg immediate release tablet Take 5 mg by mouth every 4 hours as needed for pain. - warfarin (COUMADIN) 1 mg tablet Take 3mg (three tablets) daily as directed. - ALBUTEROL 4 mg 12 hr tablet Take two tablets by mouth twice daily. - VERAPAMIL SR 120 mg CR tablet Take 120 mg by mouth once daily. - LEVOCETIRIZINE DIHYDROCHLORIDE (XYZAL ORAL) Take 10 mg by mouth once daily. - metOLAzone 5 mg tablet Take 5 mg by mouth once daily. - gabapentin 600 mg tablet Take 600 mg by mouth once daily. - cyclobenzaprine (FLEXERIL) 10 mg tablet Take 1 tablet by mouth once daily. - furosemide (LASIX) 40 mg tablet Take 40 mg by mouth once daily. - metoprolol tartrate 50 mg ORAL tablet Take 1 tablet by mouth twice daily. - zolpidem (AMBIEN) 10 mg ORAL Tab Take 1 tablet by mouth at bedtime as needed. FOR INSOMNIA - lisinopril-hydrochlo rothiazide (PRINZIDE) 20-12.5 mg ORAL per tablet Take 1 tablet by mouth once daily. - montelukast (SINGULAIR) 10 mg tablet Take 1 tablet by mouth once daily. - omeprazole (PRILOSEC) 20 mg capsule Take 1 capsule by mouth once daily. - citalopram (CELEXA) 40 mg ORAL tablet Take 1 tablet by mouth once daily. - pravastatin 80 mg ORAL tablet Take 1 tablet by mouth daily at bedtime. - potassium chloride ER (K-DUR, KLOR-CON) 20 mEq tablet Take 20 mEq by mouth once daily. - ALPRAZolam 0.25 mg ORAL tablet Take 1 tablet by mouth every 8 hours as needed. Problem List As Of Date 09/02/2022 Noted Resolved DVT (deep venous thrombosis) [I82.409] 03/20/2011 Coagulation defect [D68.9] 09/08/2011 Iron deficiency anemia due to chronic blood los*06/18/2022 Iron malabsorption [K90.9] 06/18/2022 Encounter Status:Closed by BEATRIZ SCOTT LPN on 09/02/22 Normal [facility] Telephone (STEPAN) VIOLA BENNETT ([id number]) 1950 F Date Time Provider Department 09/02/22 LUIS FELIPE RADFORD During your visit today, we recorded the following information about you: Magnolia Leo Pss 09/02/2022 11:09 AM Signed Patient called stating Dr. Pandya's office wanted her to check with Dr. Radford regarding coming off of Eliquis for a couple of days due to a colonoscopy. She states nothing is scheduled at this time. Please advise patient. Luis Felipe Radford DO 09/02/2022 11:51 AM Signed She can hold apixaban starting 24 hours prior to the procedure. So if the colonoscopy is scheduled on wednesday her last dose of Eliquis can be on Wednesday morning. She can resume Eliquis the morning after the colonoscopy. DO Beatriz Rivers LPN 09/02/2022 3:20 PM Signed Patient notified and verbalized understanding. Beatriz Scott LPN Allergies As of Date: 09/02/2022 Noted Allergy Reaction BENADRYL (DIPHENHYDRAMINE HCL) 03/20/2011 9 - Itching CEFDINIR 09/26/2012 4 - Hives SULFA (SULFONAMIDE ANTIBIOTICS) 03/20/2011 2 - Rash 9 - Itching Date Reviewed: 06/16/2022 Reviewed by: Lynnette Wellington MA - Fully Assessed Reason for Visit: Patient Question [2384] Prescriptions as of 09/02/2022 - citalopram (CELEXA) 20 mg tablet Take 20 mg by mouth once daily. - losartan (COZAAR) 50 mg tablet Take 50 mg by mouth once daily. - senna-docusate (SENNA-S) 8.6-50 mg per tablet Take 2 tablets by mouth twice daily. - niacin (NIACIN) 500 mg tablet Take 500 mg by mouth daily at bedtime. - amitriptyline (ELAVIL) 25 mg tablet Take 25 mg by mouth daily at bedtime. - galcanezumab-gnlm (EMGALITY SYRINGE) 120 mg/mL syringe Inject 120 mg subcutaneously once every month. Do not shake. - multivitamin tablet Take 1 tablet by mouth once daily. - calcium carbonate (CALTRATE) 600 mg calcium (1,500 mg) tab Take 600 mg by mouth once daily. - ergocalciferol 50,000 unit capsule (VITAMIN D2, DRISDOL) Take 50,000 Units by mouth one time a week. - divalproex DR (DEPAKOTE) 500 mg EC tablet Take 500 mg by mouth daily at bedtime. - Ascorbic Acid (VITAMIN C) 1,000 mg tablet Take 1,000 mg by mouth once daily. - polyethylene glycol 3350 (MIRALAX) 17 gram packet Take 17 g by mouth once daily. Dissolve dose in 4 - 8 ounces of liquid and take as directed. - verapamil ER (VERELAN) 240 mg 24 hr capsule Take 240 mg by mouth once daily. - apixaban (ELIQUIS) 5 mg tab(s) Take 5 mg by mouth twice daily. - acetaminophen (TYLENOL EXTRA STRENGTH) 500 mg tablet Take 1,000 mg by mouth every 8 hours as needed. - ferrous sulfate 325 mg (65 mg iron) tablet Take 325 mg by mouth once daily. - oxyCODONE IR (ROXICODONE) 5 mg immediate release tablet Take 5 mg by mouth every 4 hours as needed for pain. - warfarin (COUMADIN) 1 mg tablet Take 3mg (three tablets) daily as directed. - ALBUTEROL 4 mg 12 hr tablet Take two tablets by mouth twice daily. - VERAPAMIL SR 120 mg CR tablet Take 120 mg by mouth once daily. - LEVOCETIRIZINE DIHYDROCHLORIDE (XYZAL ORAL) Take 10 mg by mouth once daily. - metOLAzone 5 mg tablet Take 5 mg by mouth once daily. - gabapentin 600 mg tablet Take 600 mg by mouth once daily. - cyclobenzaprine (FLEXERIL) 10 mg tablet Take 1 tablet by mouth once daily. - furosemide (LASIX) 40 mg tablet Take 40 mg by mouth once daily. - metoprolol tartrate 50 mg ORAL tablet Take 1 tablet by mouth twice daily. - zolpidem (AMBIEN) 10 mg ORAL Tab Take 1 tablet by mouth at bedtime as needed. FOR INSOMNIA - lisinopril-hydrochlo rothiazide (PRINZIDE) 20-12.5 mg ORAL per tablet Take 1 tablet by mouth once daily. - montelukast (SINGULAIR) 10 mg tablet Take 1 tablet by mouth once daily. - omeprazole (PRILOSEC) 20 mg capsule Take 1 capsule by mouth once daily. - citalopram (CELEXA) 40 mg ORAL tablet Take 1 tablet by mouth once daily. - pravastatin 80 mg ORAL tablet Take 1 tablet by mouth daily at bedtime. - potassium chloride ER (K-DUR, KLOR-CON) 20 mEq tablet Take 20 mEq by mouth once daily. - ALPRAZolam 0.25 mg ORAL tablet Take 1 tablet by mouth every 8 hours as needed. Problem List As Of Date 09/02/2022 Noted Resolved DVT (deep venous thrombosis) [I82.409] 03/20/2011 Coagulation defect [D68.9] 09/08/2011 Iron deficiency anemia due to chronic blood los*06/18/2022 Iron malabsorption [K90.9] 06/18/2022 Encounter Status:Closed by BEATRIZ SCOTT LPN on 09/02/22 [facility] 08-26-2022 SHOLA Telephone (STEPAN) VIOLA BENNETT ([id number]) 1950 F Date Time Provider Department 08/26/22 LUIS FELIPE RADFORD During your visit today, we recorded the following information about you: Margot Joaquin 08/26/2022 12:43 PM Signed Pt calling about her lab results. Please contact pt and advise. Thank you! Luis Felipe Flores DO Prabhakar 08/27/2022 6:33 AM Signed Blood counts and iron doing well. Did she see Dr. Pandya for colonoscopy? Recheck CBC/Iron studies in about 3 months. Luis Felipe Flores JanayvanceDO Beatriz LPN 08/27/2022 8:[address] Radford- Patient has appointment with Dr. Pandya 09/15/2022. PSS- please schedule patient for CBC/Iron studies 11/16/2021 @ 10:00. No need to notify patient, she is aware of appointment date and time. Beatriz Scott LPN Blanca Carltonoff Pss 08/27/2022 8:43 AM Signed Scheduled. Allergies As of Date: 08/26/2022 Noted Allergy Reaction BENADRYL (DIPHENHYDRAMINE HCL) 03/20/2011 9 - Itching CEFDINIR 09/26/2012 4 - Hives SULFA (SULFONAMIDE ANTIBIOTICS) 03/20/2011 2 - Rash 9 - Itching Date Reviewed: 06/16/2022 Reviewed by: Lynnette Wellington MA - Fully Assessed Reason for Visit: Patient Question [5857] Prescriptions as of 08/28/2022 - citalopram (CELEXA) 20 mg tablet Take 20 mg by mouth once daily. - losartan (COZAAR) 50 mg tablet Take 50 mg by mouth once daily. - senna-docusate (SENNA-S) 8.6-50 mg per tablet Take 2 tablets by mouth twice daily. - niacin (NIACIN) 500 mg tablet Take 500 mg by mouth daily at bedtime. - amitriptyline (ELAVIL) 25 mg tablet Take 25 mg by mouth daily at bedtime. - galcanezumab-gnlm (EMGALITY SYRINGE) 120 mg/mL syringe Inject 120 mg subcutaneously once every month. Do not shake. - multivitamin tablet Take 1 tablet by mouth once daily. - calcium carbonate (CALTRATE) 600 mg calcium (1,500 mg) tab Take 600 mg by mouth once daily. - ergocalciferol 50,000 unit capsule (VITAMIN D2, DRISDOL) Take 50,000 Units by mouth one time a week. - divalproex DR (DEPAKOTE) 500 mg EC tablet Take 500 mg by mouth daily at bedtime. - Ascorbic Acid (VITAMIN C) 1,000 mg tablet Take 1,000 mg by mouth once daily. - polyethylene glycol 3350 (MIRALAX) 17 gram packet Take 17 g by mouth once daily. Dissolve dose in 4 - 8 ounces of liquid and take as directed. - verapamil ER (VERELAN) 240 mg 24 hr capsule Take 240 mg by mouth once daily. - apixaban (ELIQUIS) 5 mg tab(s) Take 5 mg by mouth twice daily. - acetaminophen (TYLENOL EXTRA STRENGTH) 500 mg tablet Take 1,000 mg by mouth every 8 hours as needed. - ferrous sulfate 325 mg (65 mg iron) tablet Take 325 mg by mouth once daily. - oxyCODONE IR (ROXICODONE) 5 mg immediate release tablet Take 5 mg by mouth every 4 hours as needed for pain. - warfarin (COUMADIN) 1 mg tablet Take 3mg (three tablets) daily as directed. - ALBUTEROL 4 mg 12 hr tablet Take two tablets by mouth twice daily. - VERAPAMIL SR 120 mg CR tablet Take 120 mg by mouth once daily. - LEVOCETIRIZINE DIHYDROCHLORIDE (XYZAL ORAL) Take 10 mg by mouth once daily. - metOLAzone 5 mg tablet Take 5 mg by mouth once daily. - gabapentin 600 mg tablet Take 600 mg by mouth once daily. - cyclobenzaprine (FLEXERIL) 10 mg tablet Take 1 tablet by mouth once daily. - furosemide (LASIX) 40 mg tablet Take 40 mg by mouth once daily. - metoprolol tartrate 50 mg ORAL tablet Take 1 tablet by mouth twice daily. - zolpidem (AMBIEN) 10 mg ORAL Tab Take 1 tablet by mouth at bedtime as needed. FOR INSOMNIA - lisinopril-hydrochlo rothiazide (PRINZIDE) 20-12.5 mg ORAL per tablet Take 1 tablet by mouth once daily. - montelukast (SINGULAIR) 10 mg tablet Take 1 tablet by mouth once daily. - omeprazole (PRILOSEC) 20 mg capsule Take 1 capsule by mouth once daily. - citalopram (CELEXA) 40 mg ORAL tablet Take 1 tablet by mouth once daily. - pravastatin 80 mg ORAL tablet Take 1 tablet by mouth daily at bedtime. - potassium chloride ER (K-DUR, KLOR-CON) 20 mEq tablet Take 20 mEq by mouth once daily. - ALPRAZolam 0.25 mg ORAL tablet Take 1 tablet by mouth every 8 hours as needed. Problem List As Of Date 08/26/2022 Noted Resolved DVT (deep venous thrombosis) [I82.409] 03/20/2011 Coagulation defect [D68.9] 09/08/2011 Iron deficiency anemia due to chronic blood los*06/18/2022 Iron malabsorption [K90.9] 06/18/2022 Encounter Status:Closed by MARGOT JOAQUIN on 08/28/22 [facility] CBC W Auto Differential pane l (Bld)on 08-14-2022 Basophils (Bld) [#/Vol] 0.04 10*3/uL Normal <0.11 [facility] Comment on above: Order Comment: Speci men Type: BLOOD SPECIMEN Ordering Facility: [facility] Address: [address] [place] [address] Performed By: #### 5 0190-8, 6-4 #### [facility] CLIA [id number] [address] [place] [address] [place] Basophils/100 WBC (Bld) 1.0 % [facility] Comment on above: Order Comment: Speci men Type: BLOOD SPECIMEN Ordering Facility: [facility] Address: [address] [place] [address] Performed By: #### 5 0190-8, 6-4 #### [facility] CLIA [id number] [address] [place] [address] [place] Differential cell count method Nom (Bld) Auto [facility] Comment on above: Order Comment: Speci men Type: BLOOD SPECIMEN Ordering Facility: [facility] Address: [address] [place] [address] Performed By: #### 5 0190-8, 6-4 #### [facility] CLIA [id number] [address] [place] [address] [place] Eosinophils (Bld) [#/Vol] 0.28 10*3/uL Normal <0.46 [facility] Comment on above: Order Comment: Speci men Type: BLOOD SPECIMEN Ordering Facility: [facility] Address: [address] [place], [place] [address] Performed By: #### 5 0190-8, 2275-4 #### [facility] CLIA [id number] [address] [place] [address] [place] Eosinophils/100 WBC (Bld) 6.8 % [facility] Comment on above: Order Comment: Speci men Type: BLOOD SPECIMEN Ordering Facility: [facility] Address: [address] [place], [place] [address] Performed By: #### 5 0190-8, 4 #### [facility] CLIA [id number] [address] [place] [address] [place] Erythrocyte distribution width (RBC) [Ratio] 14.2 % Normal 11.5-15.0 [facility] Comment on above: Order Comment: Speci men Type: BLOOD SPECIMEN Ordering Facility: [facility] Address: [address] [place], [place] [address] Performed By: #### 5 0190-8, 4 #### [facility] CLIA [id number] [address] [place] [address] [place] Hematocrit (Bld) [Volume fraction] 39.3 % Normal 36.0-46.0 [facility] Comment on above: Order Comment: Speci men Type: BLOOD SPECIMEN Ordering Facility: [facility] Address: [address] [place], [place] [address] Performed By: #### 5 0190-8, 2275-4 #### [facility] CLIA [id number] [address] [place] [address] [place] Hemoglobin (Bld) [Mass/Vol] 12.7 g/dL Normal 11.5-15.5 [facility] Comment on above: Order Comment: Speci men Type: BLOOD SPECIMEN Ordering Facility: [facility] Address: [address] [place], [place] [address] Performed By: #### 5 0190-8, 2275-4 #### [facility] CLIA [id number] [address] [place] [address] [place] Immature granulocytes (Bld) [#/Vol] 10*3/uL Normal <0.10 [facility] Comment on above: Order Comment: Speci men Type: BLOOD SPECIMEN Ordering Facility: [facility] Address: [address] [place], [place] [address] Performed By: #### 5 0190-8, 2275-4 #### [facility] CLIA [id number] [address] [place] [address] [place] Immature granulocytes/100 WBC (Bld) 0.0 % [facility] Comment on above: Order Comment: Speci men Type: BLOOD SPECIMEN Ordering Facility: [facility] Address: [address] [place] [address] Performed By: #### 5 0190-8, 2275-4 #### [facility] CLIA [id number] [address] [place] [address] [place] Lymphocytes (Bld) [#/Vol] 1.11 10*3/uL Normal 1.00-4.00 [facility] Comment on above: Order Comment: Speci men Type: BLOOD SPECIMEN Ordering Facility: [facility] Address: [address] [place], [place] [address] Performed By: #### 5 0190-8, 2275-4 #### [facility] CLIA [id number] [address] [place] [address] [place] Lymphocytes/100 WBC (Bld) 26.8 % [facility] Comment on above: Order Comment: Speci men Type: BLOOD SPECIMEN Ordering Facility: [facility] Address: [address] [place], [place] [address] Performed By: #### 5 0190-8, 2275-12 #### [facility] CLIA [id number] [address] [place] [address] [place] MCH (RBC) [Entitic mass] 30.3 pg Normal 26.0-34.0 [facility] Comment on above: Order Comment: Speci men Type: BLOOD SPECIMEN Ordering Facility: [facility] Address: [address] [place], [place] [address] Performed By: #### 5 0190-8, 2275-12 #### [facility] CLIA [id number] [address] [place] [address] [place] MCHC (RBC) [Mass/Vol] 32.3 g/dL Normal 30.5-36.0 [facility] Comment on above: Order Comment: Speci men Type: BLOOD SPECIMEN Ordering Facility: [facility] Address: [address] [place], [place] [address] Performed By: #### 5 0190-8, 2275-12 #### [facility] CLIA [id number] [address] [place] [address] [place] MCV (RBC) [Entitic vol] 93.8 fL Normal 80.0-100.0 [facility] Comment on above: Order Comment: Speci men Type: BLOOD SPECIMEN Ordering Facility: [facility] Address: [address] [place] [address] Performed By: #### 5 0190-8, 2275-12 #### [facility] CLIA [id number] [address] [place] [address] [place] Monocytes (Bld) [#/Vol] 0.45 10*3/uL Normal <0.87 [facility] Comment on above: Order Comment: Speci men Type: BLOOD SPECIMEN Ordering Facility: [facility] Address: [address] [place] [id number] Performed By: #### 5 0190-8, 2275-12 #### [facility] CLIA [id number] [address] [place] [address] [place] Monocytes/100 WBC (Bld) 10.9 % [facility] Comment on above: Order Comment: Speci men Type: BLOOD SPECIMEN Ordering Facility: [facility] Address: [address] [place], [place] [address] Performed By: #### 5 0190-8, 2275- #### [facility] CLIA [id number] [address] [place] [address] [place] Neutrophils (Bld) [#/Vol] 2.26 10*3/uL Normal 1.45-7.50 [facility] Comment on above: Order Comment: Speci men Type: BLOOD SPECIMEN Ordering Facility: [facility] Address: [address] [place] [address] Performed By: #### 5 0190-8, 2275-12 #### [facility] CLIA [id number] [address] [place] [address] [place] Neutrophils/100 WBC (Bld) 54.5 % [facility] Comment on above: Order Comment: Speci men Type: BLOOD SPECIMEN Ordering Facility: [facility] Address: [address] [place], [place] [address] Performed By: #### 5 0190-8, 2275-12 #### [facility] CLIA [id number] [address] [place] [address] [place] Nucleated RBC (Bld) [#/Vol] 10*3/uL Normal <0.01 [facility] Comment on above: Order Comment: Speci men Type: BLOOD SPECIMEN Ordering Facility: [facility] Address: [address] [place], [place] [address] Performed By: #### 5 0190-8, 2275- #### [facility] CLIA [id number] [address] [place] [address] [place] Nucleated RBC/100 WBC (Bld) [Ratio] 0.0 /100 WBC [facility] Comment on above: Order Comment: Speci men Type: BLOOD SPECIMEN Ordering Facility: [facility] Address: [address] [place], [place] [address] Performed By: #### 5 0190-8, 2276-4 #### [facility] CLIA [id number] [address] [place] [address] [place] Platelet mean volume (Bld) [Entitic vol] 9.7 fL Normal 9.0-12.7 [facility] Comment on above: Order Comment: Speci men Type: BLOOD SPECIMEN Ordering Facility: [facility] Address: [address] [place] [address] Performed By: #### 5 0190-8, 6-4 #### [facility] CLIA [id number] [address] [place] [address] [place] Platelets (Bld) [#/Vol] 201 10*3/uL Normal 150-400 [facility] Comment on above: Order Comment: Speci men Type: BLOOD SPECIMEN Ordering Facility: [facility] Address: [address] [place], [place] [address] Performed By: #### 5 0190-8, 6-4 #### [facility] CLIA [id number] [address] [place] [address] [place] RBC (Bld) [#/Vol] 4.19 10*6/uL Normal 3.90-5.20 [facility] Comment on above: Order Comment: Speci men Type: BLOOD SPECIMEN Ordering Facility: [facility] Address: [address] [place] [address] Performed By: #### 5 0190-8, 6-4 #### [facility] CLIA [id number] [address] [place] [address] [place] WBC (Bld) [#/Vol] 4.14 10*3/uL Normal 3.70-11.00 [facility] Comment on above: Order Comment: Speci men Type: BLOOD SPECIMEN Ordering Facility: [facility] Address: [address] [place] [address] Performed By: #### 5 0190-8, 2276-4 #### [facility] CLIA [id number] [address] [place] [address] [place] Ferritin SerPl-mCncon 2021 Ferritin [Mass/Vol] 66.2 ng/mL Normal 14.7-205.1 [facility] Comment on above: Order Comment: Speci men Type: BLOOD SPECIMEN Ordering Facility: [facility] Address: [address] [place] [address] Performed By: #### 2 276-4, 04243-2 #### [facility] CLIA [id number] [address] [place] [address] [place] Iron and Iron binding capaci ty panelon 08-14-2022 Iron [Mass/Vol] 45 ug/dL Normal 41-186 [facility] Comment on above: Order Comment: Speci men Type: BLOOD SPECIMEN Ordering Facility: [facility] Address: [address] [place], [place] [address] Performed By: #### 2 276-4, 71483-8 #### [facility] CLIA [id number] [address] [place] [address] [place] Iron binding capacity [Mass/Vol] 298 ug/dL Normal 232-386 [facility] Comment on above: Order Comment: Speci men Type: BLOOD SPECIMEN Ordering Facility: [facility] Address: [address] [place], [place] [address] Performed By: #### 2 276-4, 83030-6 #### [facility] CLIA [id number] [address] [place] [address] [place] Iron/TIBC [Molar ratio] 15.1 % Normal 15.0-57.0 [facility] Comment on above: Order Comment: Speci men Type: BLOOD SPECIMEN Ordering Facility: [facility] Address: [address] [place], [place] [phone] Performed By: #### 2 276-4, 49086-0 #### [facility] CLIA [id number] [address] [facility] [id number] CNPNon 07-22-2022 CNPN Telephone (HEMAWS) VIOLA BENNETT ([id number]) 1950 F Date Time Provider Department 07/22/22 LUIS FELIPE RADFORD During your visit today, we recorded the following information about you: Magnoliajailyn Leo Pss 07/22/2022 1:04 PM Signed Patient called asking if she is to have any appointments scheduled with Dr. Radford. Please advise. Zaria Swain LPN 07/22/2022 1:23 PM Signed Appears pt. Needs to have CBC/Iron studies the week of or around there. PSS please reach out to pt. And schedule. Does not say anything about needing a visit. GALA Ricketts 07/22/2022 2:50 PM Signed Spoke with PT and given the information below. Pt stated her understanding. Thank you! Margot Joaquin Allergies As of Date: 07/22/2022 Noted Allergy Reaction BENADRYL (DIPHENHYDRAMINE HCL) 03/20/2011 9 - Itching CEFDINIR 09/26/2012 4 - Hives SULFA (SULFONAMIDE ANTIBIOTICS) 03/20/2011 2 - Rash 9 - Itching Date Reviewed: 06/16/2022 Reviewed by: Lynnette Wellington MA - Fully Assessed Reason for Visit: Patient Question [1244] Prescriptions as of 07/23/2022 - citalopram (CELEXA) 20 mg tablet Take 20 mg by mouth once daily. - losartan (COZAAR) 50 mg tablet Take 50 mg by mouth once daily. - senna-docusate (SENNA-S) 8.6-50 mg per tablet Take 2 tablets by mouth twice daily. - niacin (NIACIN) 500 mg tablet Take 500 mg by mouth daily at bedtime. - amitriptyline (ELAVIL) 25 mg tablet Take 25 mg by mouth daily at bedtime. - galcanezumab-gnlm (EMGALITY SYRINGE) 120 mg/mL syringe Inject 120 mg subcutaneously once every month. Do not shake. - multivitamin tablet Take 1 tablet by mouth once daily. - calcium carbonate (CALTRATE) 600 mg calcium (1,500 mg) tab Take 600 mg by mouth once daily. - ergocalciferol 50,000 unit capsule (VITAMIN D2, DRISDOL) Take 50,000 Units by mouth one time a week. - divalproex DR (DEPAKOTE) 500 mg EC tablet Take 500 mg by mouth daily at bedtime. - Ascorbic Acid (VITAMIN C) 1,000 mg tablet Take 1,000 mg by mouth once daily. - polyethylene glycol 3350 (MIRALAX) 17 gram packet Take 17 g by mouth once daily. Dissolve dose in 4 - 8 ounces of liquid and take as directed. - verapamil ER (VERELAN) 240 mg 24 hr capsule Take 240 mg by mouth once daily. - apixaban (ELIQUIS) 5 mg tab(s) Take 5 mg by mouth twice daily. - acetaminophen (TYLENOL EXTRA STRENGTH) 500 mg tablet Take 1,000 mg by mouth every 8 hours as needed. - ferrous sulfate 325 mg (65 mg iron) tablet Take 325 mg by mouth once daily. - oxyCODONE IR (ROXICODONE) 5 mg immediate release tablet Take 5 mg by mouth every 4 hours as needed for pain. - warfarin (COUMADIN) 1 mg tablet Take 3mg (three tablets) daily as directed. - ALBUTEROL 4 mg 12 hr tablet Take two tablets by mouth twice daily. - VERAPAMIL SR 120 mg CR tablet Take 120 mg by mouth once daily. - LEVOCETIRIZINE DIHYDROCHLORIDE (XYZAL ORAL) Take 10 mg by mouth once daily. - metOLAzone 5 mg tablet Take 5 mg by mouth once daily. - gabapentin 600 mg tablet Take 600 mg by mouth once daily. - cyclobenzaprine (FLEXERIL) 10 mg tablet Take 1 tablet by mouth once daily. - furosemide (LASIX) 40 mg tablet Take 40 mg by mouth once daily. - metoprolol tartrate 50 mg ORAL tablet Take 1 tablet by mouth twice daily. - zolpidem (AMBIEN) 10 mg ORAL Tab Take 1 tablet by mouth at bedtime as needed. FOR INSOMNIA - lisinopril-hydrochlo rothiazide (PRINZIDE) 20-12.5 mg ORAL per tablet Take 1 tablet by mouth once daily. - montelukast (SINGULAIR) 10 mg tablet Take 1 tablet by mouth once daily. - omeprazole (PRILOSEC) 20 mg capsule Take 1 capsule by mouth once daily. - citalopram (CELEXA) 40 mg ORAL tablet Take 1 tablet by mouth once daily. - pravastatin 80 mg ORAL tablet Take 1 tablet by mouth daily at bedtime. - potassium chloride ER (K-DUR, KLOR-CON) 20 mEq tablet Take 20 mEq by mouth once daily. - ALPRAZolam 0.25 mg ORAL tablet Take 1 tablet by mouth every 8 hours as needed. Problem List As Of Date 07/22/2022 Noted Resolved DVT (deep venous thrombosis) [I82.409] 03/20/2011 Coagulation defect [D68.9] 09/08/2011 Iron deficiency anemia due to chronic blood los*06/18/2022 Iron malabsorption [K90.9] 06/18/2022 Encounter Status:Closed by ZARIA SWAIN on 07/23/22 [facility] 06-22-2022 [facility] ([id number]) 1950 F Date Time Provider Department 06/22/22 DIO QIU [facility] During your visit today, we recorded the following information about you: RAMESH Rodríguez 06/22/2022 8:56 AM Signed Daughter Pau called in to see if there is a specific place she could find Vitamin D 2 for her mom. All she has found so far is Vitamin D 3. Please call Pau with the information. Dio RAMESH Qiu LPN 06/22/2022 2:14 PM Signed Patient's daughter is asking if patient can start Vitamin D2? They were told at the [facility] to wait until labs were resulted. Beatriz Radford DO 06/22/2022 2:18 PM Signed I did not specifically check her vitamin D level, but no harm in starting an rlau-sth-[id number] vitamin D supplement. Typical dose would be 2000 units daily. DO Beatriz Rivers LPN 06/22/2022 3:02 PM Signed Patient's daughter notified. Beatriz Scott LPN Allergies As of Date: 06/22/2022 Noted Allergy Reaction BENADRYL (DIPHENHYDRAMINE HCL) 03/20/2011 9 - Itching CEFDINIR 09/26/2012 4 - Hives SULFA (SULFONAMIDE ANTIBIOTICS) 03/20/2011 2 - Rash 9 - Itching Date Reviewed: 06/16/2022 Reviewed by: Lynnette Wellington MA - Fully Assessed Reason for Visit: Patient Question [6257] Prescriptions as of 06/22/2022 - citalopram (CELEXA) 20 mg tablet Take 20 mg by mouth once daily. - losartan (COZAAR) 50 mg tablet Take 50 mg by mouth once daily. - senna-docusate (SENNA-S) 8.6-50 mg per tablet Take 2 tablets by mouth twice daily. - niacin (NIACIN) 500 mg tablet Take 500 mg by mouth daily at bedtime. - amitriptyline (ELAVIL) 25 mg tablet Take 25 mg by mouth daily at bedtime. - galcanezumab-gnlm (EMGALITY SYRINGE) 120 mg/mL syringe Inject 120 mg subcutaneously once every month. Do not shake. - multivitamin tablet Take 1 tablet by mouth once daily. - calcium carbonate (CALTRATE) 600 mg calcium (1,500 mg) tab Take 600 mg by mouth once daily. - ergocalciferol 50,000 unit capsule (VITAMIN D2, DRISDOL) Take 50,000 Units by mouth one time a week. - divalproex DR (DEPAKOTE) 500 mg EC tablet Take 500 mg by mouth daily at bedtime. - Ascorbic Acid (VITAMIN C) 1,000 mg tablet Take 1,000 mg by mouth once daily. - polyethylene glycol 3350 (MIRALAX) 17 gram packet Take 17 g by mouth once daily. Dissolve dose in 4 - 8 ounces of liquid and take as directed. - verapamil ER (VERELAN) 240 mg 24 hr capsule Take 240 mg by mouth once daily. - apixaban (ELIQUIS) 5 mg tab(s) Take 5 mg by mouth twice daily. - acetaminophen (TYLENOL EXTRA STRENGTH) 500 mg tablet Take 1,000 mg by mouth every 8 hours as needed. - ferrous sulfate 325 mg (65 mg iron) tablet Take 325 mg by mouth once daily. - oxyCODONE IR (ROXICODONE) 5 mg immediate release tablet Take 5 mg by mouth every 4 hours as needed for pain. - warfarin (COUMADIN) 1 mg tablet Take 3mg (three tablets) daily as directed. - ALBUTEROL 4 mg 12 hr tablet Take two tablets by mouth twice daily. - VERAPAMIL SR 120 mg CR tablet Take 120 mg by mouth once daily. - LEVOCETIRIZINE DIHYDROCHLORIDE (XYZAL ORAL) Take 10 mg by mouth once daily. - metOLAzone 5 mg tablet Take 5 mg by mouth once daily. - gabapentin 600 mg tablet Take 600 mg by mouth once daily. - cyclobenzaprine (FLEXERIL) 10 mg tablet Take 1 tablet by mouth once daily. - furosemide (LASIX) 40 mg tablet Take 40 mg by mouth once daily. - metoprolol tartrate 50 mg ORAL tablet Take 1 tablet by mouth twice daily. - zolpidem (AMBIEN) 10 mg ORAL Tab Take 1 tablet by mouth at bedtime as needed. FOR INSOMNIA - lisinopril-hydrochlo rothiazide (PRINZIDE) 20-12.5 mg ORAL per tablet Take 1 tablet by mouth once daily. - montelukast (SINGULAIR) 10 mg tablet Take 1 tablet by mouth once daily. - omeprazole (PRILOSEC) 20 mg capsule Take 1 capsule by mouth once daily. - citalopram (CELEXA) 40 mg ORAL tablet Take 1 tablet by mouth once daily. - pravastatin 80 mg ORAL tablet Take 1 tablet by mouth daily at bedtime. - potassium chloride ER (K-DUR, KLOR-CON) 20 mEq tablet Take 20 mEq by mouth once daily. - ALPRAZolam 0.25 mg ORAL tablet Take 1 tablet by mouth every 8 hours as needed. Problem List As Of Date 06/22/2022 Noted Resolved DVT (deep venous thrombosis) [I82.409] 03/20/2011 Coagulation defect [D68.9] 09/08/2011 Iron deficiency anemia due to chronic blood los*06/18/2022 Iron malabsorption [K90.9] 06/18/2022 Encounter Status:Closed by BEATRIZ SCOTT LPN on 06/22/22 [facility]al 06-18-2022 SHOLA Telephone (STEPAN) VIOLA BENNETT ([id number]) 1950 F Date Time Provider Department 06/18/22 LUIS FELIPE RADFORD During your visit today, we recorded the following information about you: Luis Felipe Radford DO 06/18/2022 6:06 AM Signed Can let her know that her iron saturation is still little bit low so I recommend 2 doses of iron sucrose. Check CBC/BMP/iron studies about 4 to 6 weeks after completing the 2 doses. DO Pau Rivers 06/18/2022 3:07 PM Signed LM for patient to return call. When patient calls, please warm transfer to [facility] PSS to schedule below. Pau Santana 06/18/2022 3:28 PM Signed Patient returned call and scheduled as directed. Patient stated that she just started (today) taking prescription iron from Dr. Noel - [place] iron - 150 mg tablets, 1 per mouth per day for 30 days. Please advise if we should still do iron sucrose infusions. She is also taking Vitamin D2 once/week but hasn't started that yet. Pau Galloway LPN 06/18/2022 4:24 PM Signed Do you want to address the new oral iron? Would you like me to let Dr Noel know she is getting infusions? Marce Radford DO 06/19/2022 1:51 PM Signed If she is tolerating the oral iron fairly well then we can skip the iron sucrose infusions and just recheck CBC/iron studies in about 8 weeks. DO Beatriz Rivers LPN 06/19/2022 2:18 PM Signed Left message for patient to contact office regarding oral vs iron infusion and rechecking labs. Beatriz Scott LPN 06/19/2022 2:27 PM Signed Patient just started oral iron yesterday and is tolerating it so far. PSS- please schedule patient for CBC/iron studies 08/14/2022 @10:00. No need to notify patient, she is aware. Please cancel iron infusions. Patient is aware that if for any reason she cannot tolerate oral iron she needs to call back to reschedule iron infusions. Beatriz Scott LPN [facility] 06/19/2022 3:08 PM Signed Schedule updated. Allergies As of Date: 06/18/2022 Noted Allergy Reaction BENADRYL (DIPHENHYDRAMINE HCL) 03/20/2011 9 - Itching CEFDINIR 09/26/2012 4 - Hives SULFA (SULFONAMIDE ANTIBIOTICS) 03/20/2011 2 - Rash 9 - Itching Date Reviewed: 06/16/2022 Reviewed by: Lynnette Wellington MA - Fully Assessed Reason for Visit: Results [95] Cmt: Low iron saturation Visit Diagnoses:Iron deficiency anemia due to chronic blood loss [D50.0] Iron malabsorption [K90.9] Prescriptions as of 06/19/2022 - citalopram (CELEXA) 20 mg tablet Take 20 mg by mouth once daily. - losartan (COZAAR) 50 mg tablet Take 50 mg by mouth once daily. - senna-docusate (SENNA-S) 8.6-50 mg per tablet Take 2 tablets by mouth twice daily. - niacin (NIACIN) 500 mg tablet Take 500 mg by mouth daily at bedtime. - amitriptyline (ELAVIL) 25 mg tablet Take 25 mg by mouth daily at bedtime. - galcanezumab-gnlm (EMGALITY SYRINGE) 120 mg/mL syringe Inject 120 mg subcutaneously once every month. Do not shake. - multivitamin tablet Take 1 tablet by mouth once daily. - calcium carbonate (CALTRATE) 600 mg calcium (1,500 mg) tab Take 600 mg by mouth once daily. - ergocalciferol 50,000 unit capsule (VITAMIN D2, DRISDOL) Take 50,000 Units by mouth one time a week. - divalproex DR (DEPAKOTE) 500 mg EC tablet Take 500 mg by mouth daily at bedtime. - Ascorbic Acid (VITAMIN C) 1,000 mg tablet Take 1,000 mg by mouth once daily. - polyethylene glycol 3350 (MIRALAX) 17 gram packet Take 17 g by mouth once daily. Dissolve dose in 4 - 8 ounces of liquid and take as directed. - verapamil ER (VERELAN) 240 mg 24 hr capsule Take 240 mg by mouth once daily. - apixaban (ELIQUIS) 5 mg tab(s) Take 5 mg by mouth twice daily. - acetaminophen (TYLENOL EXTRA STRENGTH) 500 mg tablet Take 1,000 mg by mouth every 8 hours as needed. - ferrous sulfate 325 mg (65 mg iron) tablet Take 325 mg by mouth once daily. - oxyCODONE IR (ROXICODONE) 5 mg immediate release tablet Take 5 mg by mouth every 4 hours as needed for pain. - warfarin (COUMADIN) 1 mg tablet Take 3mg (three tablets) daily as directed. - ALBUTEROL 4 mg 12 hr tablet Take two tablets by mouth twice daily. - VERAPAMIL SR 120 mg CR tablet Take 120 mg by mouth once daily. - LEVOCETIRIZINE DIHYDROCHLORIDE (XYZAL ORAL) Take 10 mg by mouth once daily. - metOLAzone 5 mg tablet Take 5 mg by mouth once daily. - gabapentin 600 mg tablet Take 600 mg by mouth once daily. - cyclobenzaprine (FLEXERIL) 10 mg tablet Take 1 tablet by mouth once daily. - furosemide (LASIX) 40 mg tablet Take 40 mg by mouth once daily. - metoprolol tartrate 50 mg ORAL tablet Take 1 tablet by mouth twice daily. - zolpidem (AMBIEN) 10 mg ORAL Tab Take 1 tablet by mouth at bedtime as needed. FOR INSOMNIA - lisinopril-hydrochlo rothiazide (PRINZIDE) 20-12.5 mg ORAL pe (more content not included)... [facility] BETA 2 GLYCOPROTEIN, IGGon 0 06-16-2022 Beta 2 glycoprotein 1 IgG IA Qn <9 Normal <20 [facility] Comment on above: Order Comment: Indra black Type: BLOOD SPECIMEN Ordering Facility: [facility] Address: [address] [place] [address] Result Comment: <20 SGU Negative 20-80 SGU Low Positive >80 SGU High Positive These results were obtained with the [employer] QUANTA Lite B2 GPI IgG MIKE. B2 GPI IgG values obtained with different manufacturers' assay methods may not be used interchangeably. The magnitude of the reported IgG levels cannot be correlated to an endpoint titer. Performed By: #### 2 276-4, 94525-5 #### [facility] CLIA [id number] [address] [place] [address] [place] BETA 2 GLYCOPROTEIN, IGMon 0 06-16-2022 Beta 2 glycoprotein 1 IgM IA Qn <9 Normal <20 [facility] Comment on above: Order Comment: Indra black Type: BLOOD SPECIMEN Ordering Facility: [facility] Address: [address] [place] [address] Result Comment: <20 SMU Negative 20-80 SMU Low Positive >80 SMU High positive These results were obtained with the [employer] QUANTA Lite B2 GPI IgM MIKE. B2 GPI IgM values obtained with different manufacturers' assay methods may not be used interchangeably. The magnitude of the reported IgM levels cannot be correlated to an endpoint titer. Performed By: #### 2 276-4, 38045-3 #### [facility] CLIA [id number] [address] [place] [address] [place] CARDIOLIPIN IGG ABSon 2021 Cardiolipin IgG IA Qn (S) <9.0 Normal <15.0 [facility] Comment on above: Order Comment: Indra black Type: BLOOD SPECIMEN Ordering Facility: [facility] Address: [address] [place] [address] Result Comment: <15 GPL Negative 15-20 GPL Indeterminate >20 GPL Positive The following results were obtained with the [employer] QUANTA Lite JALEN IgG III MIKE. Cardiolipin IgG values obtained with the different manufacturers' assay methods may not be used interchangeably. The magnitude of the reported IgG levels cannot be correlated to an endpoint titer. Performed By: #### 2 276-4, 77086-7 #### [facility] CLIA [id number] [address] [place] [address] [place] CARDIOLIPIN IGM ABSon 2021 Cardiolipin IgM IA Qn (S) <9.0 Normal <12.5 [facility] Comment on above: Order Comment: Speci men Type: BLOOD SPECIMEN Ordering Facility: [facility] Address: [address] [place] [address] Result Comment: <12. 5 MPL Negative 12.5-20 MPL Indeterminate >20 MPL Positive The following results were obtained with the [employer] QUANTA Lite JALEN IgM III MIKE. Cardiolipin IgM values obtained with the different manufacturers' assay methods may not be used interchangeably. The magnitude of the reported IgM levels cannot be correlated to an endpoint titer. ??? Performed By: #### 5 0190-8, 2276-4 #### [facility] CLIA [id number] [address] [place] [address] [place] CBC W Auto Differential pane l (Bld)on 06-16-2022 Basophils (Bld) [#/Vol] 0.03 10*3/uL Normal <0.11 [facility] Comment on above: Order Comment: Speci men Type: BLOOD SPECIMEN Ordering Facility: [facility] Address: [address] [place], [place] [id number] Performed By: #### 2 276-4, 74486-7 #### [facility] CLIA [id number] [address] [place] [address] [place] Basophils/100 WBC (Bld) 0.7 % [facility] Comment on above: Order Comment: Speci men Type: BLOOD SPECIMEN Ordering Facility: [facility] Address: [address] Performed By: #### 2 276-4, 19731-0 #### [facility] CLIA [id number] [address] [place] [address] [place] Differential cell count method Nom (Bld) Auto [facility] Comment on above: Order Comment: Speci men Type: BLOOD SPECIMEN Ordering Facility: [facility] Address: [address] Performed By: #### 2 276-4, 17632-2 #### [facility] CLIA [id number] [address] [place] [address] [place] Eosinophils (Bld) [#/Vol] 0.26 10*3/uL Normal <0.46 [facility] Comment on above: Order Comment: Speci men Type: BLOOD SPECIMEN Ordering Facility: [facility] Address: [address] Performed By: #### 2 276-4, 78646-6 #### [facility] CLIA [id number] [address] [place] [address] [place] Eosinophils/100 WBC (Bld) 5.9 % [facility] Comment on above: Order Comment: Speci men Type: BLOOD SPECIMEN Ordering Facility: [facility] Address: [address] Performed By: #### 2 276-4, 18989-0 #### [facility] CLIA [id number] [address] [place] [address] [place] Erythrocyte distribution width (RBC) [Ratio] 17.9 % High 11.5-15.0 [facility] Comment on above: Order Comment: Speci men Type: BLOOD SPECIMEN Ordering Facility: [facility] Address: [address] Performed By: #### 2 276-4, 48744-1 #### [facility] CLIA [id number] [address] [place] [address] [place] Hematocrit (Bld) [Volume fraction] 32.1 % Low 36.0-46.0 [facility] Comment on above: Order Comment: Speci men Type: BLOOD SPECIMEN Ordering Facility: [facility] Address: [address] [place], [place] [id number] Performed By: #### 2 276-4, 93582-7 #### [facility] CLIA [id number] [address] [place] [address] [place] Hemoglobin (Bld) [Mass/Vol] 10.1 g/dL Low 11.5-15.5 [facility] Comment on above: Order Comment: Speci men Type: BLOOD SPECIMEN Ordering Facility: [facility] Address: [address] [place], [place] [id number] Performed By: #### 2 276-4, 76072-5 #### [facility] CLIA [id number] [address] [place] [address] OF [facility] IMMATURE GRAN % 0.2 % [facility] Comment on above: Order Comment: Speci men Type: BLOOD SPECIMEN Ordering Facility: [facility] Address: [address] [place], [place] [id number] Performed By: #### 2 276-4, 38755-9 #### [facility] CLIA [id number] [address] [place] [address] [place] IMMATURE GRAN ABS <0.03 Normal <0.10 [facility] Comment on above: Order Comment: Speci men Type: BLOOD SPECIMEN Ordering Facility: [facility] Address: [address] [place], [place] [id number] Performed By: #### 2 276-4, 66457-7 #### [facility] CLIA [id number] [address] [place] [address] [place] Lymphocytes (Bld) [#/Vol] 0.98 10*3/uL Low 1.00-4.00 [facility] Comment on above: Order Comment: Speci men Type: BLOOD SPECIMEN Ordering Facility: [facility] Address: [address] [place], [place] [id number] Performed By: #### 2 276-4, 04979-0 #### [facility] CLIA [id number] [address] STATES OF [facility] Lymphocytes/100 WBC (Bld) 22.4 % [facility] Comment on above: Order Comment: Speci men Type: BLOOD SPECIMEN Ordering Facility: [facility] Address: [address] [place], [place] [id number] Performed By: #### 2 276-4, 93008-9 #### [facility] CLIA [id number] [address] [place] [address] [place] MCH (RBC) [Entitic mass] 29.9 pg Normal 26.0-34.0 [facility] Comment on above: Order Comment: Speci men Type: BLOOD SPECIMEN Ordering Facility: [facility] Address: [address] [place], [place] [id number] Performed By: #### 2 276-4, 42448-1 #### [facility] CLIA [id number] [address] [place] [address] [place] MCHC (RBC) [Mass/Vol] 31.5 g/dL Normal 30.5-36.0 [facility] Comment on above: Order Comment: Speci men Type: BLOOD SPECIMEN Ordering Facility: [facility] Address: [address] [place] [address] Performed By: #### 2 276-4, 11233-4 #### [facility] CLIA [id number] [address] [place] [address] [place] MCV (RBC) [Entitic vol] 95.0 fL Normal 80.0-100.0 [facility] Comment on above: Order Comment: Speci men Type: BLOOD SPECIMEN Ordering Facility: [facility] Address: [address] Performed By: #### 2 276-4, 30826-2 #### [facility] CLIA [id number] [address] [place] [id number] [place] Monocytes (Bld) [#/Vol] 0.54 10*3/uL Normal <0.87 [facility] Comment on above: Order Comment: Speci men Type: BLOOD SPECIMEN Ordering Facility: [facility] Address: [address] Performed By: #### 2 276-4, 89960-1 #### [facility] CLIA [id number] [address] [place] [address] [place] Monocytes/100 WBC (Bld) 12.4 % [facility] Comment on above: Order Comment: Speci men Type: BLOOD SPECIMEN Ordering Facility: [facility] Address: [address] Performed By: #### 2 276-4, 02933-1 #### [facility] CLIA [id number] [address] [place] [address] [place] Neutrophils (Bld) [#/Vol] 2.55 10*3/uL Normal 1.45-7.50 [facility] Comment on above: Order Comment: Speci men Type: BLOOD SPECIMEN Ordering Facility: [facility] Address: [address] [place] [address] Performed By: #### 2 276-4, 66973-7 #### [facility] CLIA [id number] [address] [place] [address] [place] Neutrophils/100 WBC (Bld) 58.4 % [facility] Comment on above: Order Comment: Speci men Type: BLOOD SPECIMEN Ordering Facility: [facility] Address: [address] [place] [address] Performed By: #### 2 276-4, 97039-8 #### [facility] CLIA [id number] [address] [place] [address] [place] Nucleated RBC (Bld) [#/Vol] 10*3/uL Normal <0.01 [facility] Comment on above: Order Comment: Speci men Type: BLOOD SPECIMEN Ordering Facility: [facility] Address: [address] [place] [address] Performed By: #### 2 276-4, 12056-2 #### [facility] CLIA [id number] [address] [place] [address] [place] Nucleated RBC/100 WBC (Bld) [Ratio] 0.0 /100 WBC [facility] Comment on above: Order Comment: Speci men Type: BLOOD SPECIMEN Ordering Facility: [facility] Address: [address] Performed By: #### 2 276-4, 88862-1 #### [facility] CLIA [id number] [address] [place] [address] [place] Platelet mean volume (Bld) [Entitic vol] 8.8 fL Low 9.0-12.7 [facility] Comment on above: Order Comment: Speci men Type: BLOOD SPECIMEN Ordering Facility: [facility] Address: [address] [place] [address] Performed By: #### 2 276-4, 12327-7 #### [facility] CLIA [id number] [address] [place] [address] [place] Platelets (Bld) [#/Vol] 314 10*3/uL Normal 150-400 [facility] Comment on above: Order Comment: Speci men Type: BLOOD SPECIMEN Ordering Facility: [facility] Address: [address] Performed By: #### 2 276-4, 04404-0 #### [facility] CLIA [id number] [address] [place] [address] [place] RBC (Bld) [#/Vol] 3.38 10*6/uL Low 3.90-5.20 [facility] Comment on above: Order Comment: Speci men Type: BLOOD SPECIMEN Ordering Facility: [facility] Address: [address] [place] [address] Performed By: #### 2 276-4, 71088-9 #### [facility] CLIA [id number] [address] [place] [address] [place] WBC (Bld) [#/Vol] 4.37 10*3/uL Normal 3.70-11.00 [facility] Comment on above: Order Comment: Speci men Type: BLOOD SPECIMEN Ordering Facility: [facility] Address: [address] [place] [address] Performed By: #### 2 276-4, 93914-1 #### [facility] CLIA [id number] [address] [place] [address] [place] Abs Immature Gran <0.10 k/uL [facility] Basophils (Bld) [#/Vol] 0.03 10*3/uL <0.11 k/uL [facility] Basophils/100 WBC (Bld) 0.7 % [facility] Differential cell count method Nom (Bld) Auto [facility] Eosinophils (Bld) [#/Vol] 0.26 10*3/uL <0.46 k/uL [facility] Eosinophils/100 WBC (Bld) 5.9 % [facility] Erythrocyte distribution width (RBC) [Ratio] 17.9 % High 11.5 - 15.0 % [facility] Hematocrit (Bld) [Volume fraction] 32.1 % Low 36.0 - 46.0 % [facility] Hemoglobin (Bld) [Mass/Vol] 10.1 g/dL Low 11.5 - 15.5 g/dL [facility] Immature Gran % 0.2 % [facility] Lymphocytes (Bld) [#/Vol] 0.98 10*3/uL Low 1.00 - 4.00 k/uL [facility] Lymphocytes/100 WBC (Bld) 22.4 % [facility] MCH (RBC) [Entitic mass] 29.9 pg 26.0 - 34.0 pg [facility] MCHC (RBC) [Mass/Vol] 31.5 g/dL 30.5 - 36.0 g/dL [facility] MCV (RBC) [Entitic vol] 95.0 fL 80.0 - 100.0 fL [facility] Monocytes (Bld) [#/Vol] 0.54 10*3/uL <0.87 k/uL [facility] Monocytes/100 WBC (Bld) 12.4 % [facility] Neutrophils (Bld) [#/Vol] 2.55 10*3/uL 1.45 - 7.50 k/uL [facility] Neutrophils/100 WBC (Bld) 58.4 % [facility] Nucleated RBC (Bld) [#/Vol] <0.01 k/uL [facility] Nucleated RBC/100 WBC (Bld) [Ratio] 0.0 /100 WBC [facility] Platelet mean volume (Bld) [Entitic vol] 8.8 fL Low 9.0 - 12.7 fL [facility] Platelets (Bld) [#/Vol] 314 10*3/uL 150 - 400 k/uL [facility] RBC (Bld) [#/Vol] 3.38 10*6/uL Low 3.90 - 5.2 0 m/uL [facility] WBC (Bld) [#/Vol] 4.37 10*3/uL 3.70 - 11. 00 k/uL [facility] CNOVSPon 06-16-2022 CNOVSP Visit (SP) Office (HEMAWS) VIOLA BENNETT ([id number]) 1950 F Date Time Provider Department 06/16/22 3:00 PM MASCI, LUIS FELIPE A HEMAWS During your visit today, we recorded the following information about you: Temperature Pulse Blood pressure 98.2 degrees 76/minute 100/52 Lius Felipe Radford DO 06/16/2022 3:50 PM Signed Hematologic problem(s): 1) DVT b/l LEs 2009. 2) Heterozygous for the Factor V Leiden 3) IgA anticardiolipin antibody HPI: The patient is a 72 yo female with a past medical history significant for atrial fibrillation, chronic kidney disease, obstructive sleep apnea (on CPAP), DVT, GERD, hypercholesterolemia , hypertension and migraine headache as well as osteopenia. She developed left lower leg pain just above the ankle January 2010. US was ordered that revealed an acute DVT in the right common femoral vein as well as an acute DVT in the right popliteal and right posterior tibial veins as well as right peroneal vein. There was a DVT also observed in the right tibial peroneal trunk. There was an acute DVT in the left tibial peroneal trunk. The remainder of the left lower extremity deep venous system was patent, compressible and competent. Acute superficial thrombophlebitis was noted in the right great saphenous vein extending into the right common femoral vein of the deep venous system. Acute superficial thrombophlebitis was also noted in the right small saphenous vein. The left greater saphenous vein was patent and compressible. Anticoagulated with LMWH and transitioned to warfarin. She had no preceding travel or change in daily habits. She had an episode of left lower extremities cellulitis in July 2010. During that episode she had atrial fibrillation with rapid ventricular response. She has history of hypertension but has not previously had a stroke or TIA. She has no history of chronic congestive heart failure. There was no other history of atrial fibrillation. Referred back for anemia. Interim history: Since last seen, she was transitioned to Eliquis. She is also been diagnosed with atrial fibrillation. Fell at home 05/28 and broke left hip. Had partial replacement 05/30. Was in rehab unit 12 days. Hgb 8.5 g/dL on 06/09. Evidently stools heme positive. Was on apixaban. Received 3 bags of iron. Hgb 06/15 up to 10.2 g/dL. Home now. Can walk with walker at home. Daughter lives close by. Patient cares for . Breathing is fine. Back on apixaban. Was told to get colonoscopy but no referrals or arrangements made. Doesn't see any blood in stools. PMH, medications and allergies personally reviewed by me today. Any changes documented in appropriate section. ROS: Constitutional: Denies episodes of fever and night sweats. Normal appetite. Neuro: Denies BOBBY.. HEENT: No recent change in voice, vision or hearing. Resp: Denies cough and hemoptysis. No shortness of breath at rest. CVS: Denies exertional chest pain and LE swelling. GI: Denies reflux, n/v, change in bowel habits and abdominal pain. No black or bloody stools. : No dysuria or gross hematuria. Endo: No hot flashes. Derm: No rash. Heme: No unusual bleeding or bruising. Psych: Normal mood. SOCIAL HISTORY Tobacco Use: Never Alcohol Use: No . Lives with . PHYSICAL EXAM: Vitals: Blood pressure 100/52, pulse 76, temperature 36.8 ?C (98.2 ?F), temperature source Temporal, SpO2 98 %. Well-appearing and in no acute distress. EYES: Sclerae are anicteric bilaterally. NECK: Supple. LYMPHATIC: There is no palpable cervical or supraclavicular adenopathy. RESPIRATORY: Inspiratory breath sounds are of normal intensity in all christina. No rales, wheezes or rhonchi. CARDIOVASCULAR: Rhythm is regular. ABDOMEN: The abdomen is nondistended. Extremities: Compression stockings on. SKIN: No jaundice. 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 No focal motor weakness. ASSESSMENT/PLAN: (D50.0) Iron deficiency anemia due to chronic blood loss (primary encounter diagnosis) Assessment: -She was found to have moderate anemia when hospitalized for recent hip fracture. Evidently stools were heme positive. She received parenteral iron infusion while in the hospital with nice increase in hemoglobin. -She remains on PPI. -She requires ongoing anticoagulation. Plan: -Recheck CBC and iron studies as well as reticulocyte count today. She may need further parenteral iron. -She will require ongoing surveillance for her blood counts and iron levels likely on an every 3-month basis. -Referral to Dr. Pandya for EGD and colonoscopy. (D17.981) Chronic deep vein thrombosis (DVT) of both lower extremities, unspecified vein (HCC) (D68.9) Coagulation defect (HCC) Assessment: -B/L DVT 2009. 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 -Had persis (more content not included)... [facility] Cardiolipin IgA Ser IA-aCnco n 06-16-2022 Cardiolipin IgA IA Qn (S) 9.7 [APL'U] Normal <12.0 [facility] Comment on above: Order Comment: Indra black Type: BLOOD SPECIMEN Ordering Facility: [facility] Address: [address] [address] Result Comment: <12 APL Negative 12-20 APL Indeterminate >20 APL Positive The following results were obtained with the [employer] Visuel Système[employer] Lite JALEN IgA III MIKE. Cardiolipin IgA values obtained with the different manufacturers' assay methods may not be used interchangeably. The magnitude of the reported IgA levels cannot be correlated to an endpoint titer. Performed By: #### 2 276-4, 11650-0 #### [facility] CLIA [id number] [address] [place] [address] [place] Ferritin SerPl-mCncon 2021 Ferritin [Mass/Vol] 365.0 ng/mL High 14.7-205.1 [facility] Comment on above: Order Comment: Indra black Type: BLOOD SPECIMEN Ordering Facility: [facility] Address: [address] [address] Performed By: #### 5 0190-8, 2276-4 #### [facility] CLIA [id number] [address] [place] [address] [place] Iron and Iron binding capaci ty panelon 06-16-2022 Iron [Mass/Vol] 39 ug/dL Low 41-186 [facility] Comment on above: Order Comment: Indra black Type: BLOOD SPECIMEN Ordering Facility: [facility] Address: [address] [address] Performed By: #### 5 0190-8, 2276-4 #### [facility] CLIA [id number] [address] [place] [address] [place] Iron binding capacity [Mass/Vol] 251 ug/dL Normal 232-386 [facility] Comment on above: Order Comment: Speci men Type: BLOOD SPECIMEN Ordering Facility: [facility] Address: [address] [place] [address] Performed By: #### 5 0190-8, 2276-4 #### [facility] CLIA [id number] [address] [place] [address] [place] Iron/TIBC [Molar ratio] 15.5 % Normal 15.0-57.0 [facility] Comment on above: Order Comment: Speci men Type: BLOOD SPECIMEN Ordering Facility: [facility] Address: [address] [place], [place] [id number] Performed By: #### 5 0190-8, 2276-4 #### [facility] CLIA [id number] [address] [place] [address] [place] RETIC COUNTon 06-16-2022 Reticulocytes (Bld) [#/Vol] 0.88464 10*3/uL High 0.018 - 0.100 M/uL [facility] #on 06-16-2022 Reticulocytes (Bld) [#/Vol] 0.24170 10*3/uL High 0.018-0.100 [facility] Comment on above: Order Comment: Speci men Type: BLOOD SPECIMEN Ordering Facility: [facility] Address: [address] [place] [address] Performed By: #### 2 276-4, 39674-7 #### [facility] CLIA [id number] [address] [place] [address] [place] Reticulocytes (Bld) [#/Vol]o n 06-16-2022 Reticulocytes/100 RBC (Bld) 3.3 % High 0.4-2.0 [facility] Comment on above: Order Comment: Speci men Type: BLOOD SPECIMEN Ordering Facility: [facility] Address: [address] [place] [address] Performed By: #### 2 276-4, 97871-8 #### [facility] CLIA [id number] [address] [place] [address] [place] Reticulocytes/100 RBC (Bld) 3.3 % High 0.4 - 2.0 % [facility] CNPRadha 06-12-2022 CNPN Telephone (HEMAWS) VIOLA BENNETT ([id number]) 1950 F Date Time Provider Department 06/12/22 LUIS FELIPE RADFORD During your visit today, we recorded the following information about you: Ce Contreras 06/12/2022 1:52 PM Signed [facility] called regarding pt d/c 06/12/22. Unable to complete call as phone went down. They were going to fax information regarding pt needing to be seen for low Iron. Margot Joaquin 06/15/2022 10:48 AM Signed Received referral and given to PRABHAKAR for review. DX: ANEMIA REF PROV: SEMENTI INS: MEDICARE A B Margot Joaquin 06/15/2022 11:24 AM Addendum Sent fax to [facility] requesting more information Beatriz Scott LPN 06/15/2022 1:29 PM Signed I spoke to patient and offered her tomorrow, 06/16/2022, at 3:00 pm. Patient will contact this nurse to confirm appointment if she is able to obtain transportation. Beatriz Vinson Pss 06/15/2022 4:48 PM Signed Patient has been scheduled for the below date and time. Javid Vinson Pss Allergies As of Date: 06/12/2022 Noted Allergy Reaction BENADRYL (DIPHENHYDRAMINE HCL) 03/20/2011 9 - Itching CEFDINIR 09/26/2012 4 - Hives SULFA (SULFONAMIDE ANTIBIOTICS) 03/20/2011 2 - Rash 9 - Itching Date Reviewed: 04/28/2014 Reviewed by: Magnolia Payton ([facility]) Wes - Fully Assessed Reason for Visit: Future Appointment [256] New Patient [172] Prescriptions as of 06/15/2022 - warfarin (COUMADIN) 1 mg tablet Take 3mg (three tablets) daily as directed. - ALBUTEROL 4 mg 12 hr tablet Take two tablets by mouth twice daily. - VERAPAMIL SR 120 mg CR tablet Take 120 mg by mouth once daily. - LEVOCETIRIZINE DIHYDROCHLORIDE (XYZAL ORAL) Take 10 mg by mouth once daily. - metOLAzone 5 mg tablet Take 5 mg by mouth once daily. - gabapentin 600 mg tablet Take 600 mg by mouth once daily. - cyclobenzaprine (FLEXERIL) 10 mg tablet Take 1 tablet by mouth once daily. - furosemide (LASIX) 40 mg tablet Take 40 mg by mouth once daily. - metoprolol tartrate 50 mg ORAL tablet Take 1 tablet by mouth twice daily. - zolpidem (AMBIEN) 10 mg ORAL Tab Take 1 tablet by mouth at bedtime as needed. FOR INSOMNIA - lisinopril-hydrochlo rothiazide (PRINZIDE) 20-12.5 mg ORAL per tablet Take 1 tablet by mouth once daily. - montelukast (SINGULAIR) 10 mg ORAL tablet Take 1 tablet by mouth once daily. - omeprazole (PRILOSEC) 20 mg ORAL capsule Take 1 capsule by mouth once daily. - citalopram (CELEXA) 40 mg ORAL tablet Take 1 tablet by mouth once daily. - pravastatin 80 mg ORAL tablet Take 1 tablet by mouth daily at bedtime. - potassium chloride SR (K-DUR) 20 mEq ORAL tablet Take 1 tablet by mouth twice daily. - ALPRAZolam 0.25 mg ORAL tablet Take 1 tablet by mouth every 8 hours as needed. Problem List As Of Date 06/12/2022 Noted Resolved DVT (deep venous thrombosis) [I82.409] 03/20/2011 Coagulation defect [D68.9] 09/08/2011 Encounter Status:Closed by JAVID BOB on 06/15/22 [facility] Vis[facility] 05-07-2017 Dietary management education, guidance, and counseling (procedure) yes Invalid Interpretation Code [employer] Work Phone: [phone] Documentation of current medications (procedure) Done Invalid Interpretation Code [employer] Work Phone: [phone] Fall risk assessment Yes Invalid Interpretation Code [employer] Work Phone: [phone] Protein mass conc Done Invalid Interpretation Code [employer] Work Phone: [phone] Clinical Lists Updateon Left ventricular Ejection fraction 65 % Invalid Interpretation Code [employer] Work Phone: [phone] Clinical Lists Update: Prelo tumbler tender 03-27-2016 Alanine aminotransferase (ALT) 22 U/L Invalid Interpretation Code [employer] Work Phone: [phone] Albumin 3.5 g/dL Invalid Interpretation Code [employer] Work Phone: [phone] Albumin/Globulin Ratio 1.0 {ratio} Invalid Interpretation Code [employer] Work Phone: [phone] Alkaline phosphatase (ALP) 94 U/L Invalid Interpretation Code [employer] Work Phone: [phone] ALP enzyme act/vol (Bld) 94 U/L Invalid Interpretation Code [employer] Work Phone: [phone] Anion gap 7 mmol/L Invalid Interpretation Code [employer] Work Phone: [phone] Anion gap 4 molar conc 7 Invalid Interpretation Code [employer] Work Phone: [phone] Aspartate aminotransferase (AST) 15 U/L Invalid Interpretation Code [employer] Work Phone: [phone] Bilirubin (total) 0.50 mg/dL Invalid Interpretation Code [employer] Work Phone: [phone] BUN/Creatinine Ratio 14.9 mg/mg Invalid Interpretation Code [employer] Work Phone: [phone] Calcium 8.3 mg/dL Low [employer] Work Phone: [phone] Chloride 107 mmol/L Invalid Interpretation Code [employer] Work Phone: [phone] CO2 27.0 mmol/L Invalid Interpretation Code [employer] Work Phone: [phone] CO2 ppres (BldV) 27.0 mmol/L Invalid Interpretation Code [employer] Work Phone: [phone] Creatinine 1.14 mg/dL Invalid Interpretation Code [employer] Work Phone: [phone] eGFR (non-black) 61 mL/min/{1.73_m2} Invalid Interpretation Code [employer] Work Phone: [phone] eGFR (non-black) 50 mL/min/{1.73_m2} Low [employer] Work Phone: [phone] Erythrocytes (RBC) 4.60 10*6/uL Invalid Interpretation Code [employer] Work Phone: [phone] Globulin 3.6 g/dL High [employer] Work Phone: [phone] Glomerular Filtration Rate 61 mL/min/1.73m2 Invalid Interpretation Code [employer] Work Phone: [phone] Glucose 86 mg/dL Invalid Interpretation Code [employer] Work Phone: [phone] Glucose mass conc 86 mg/dL Invalid Interpretation Code [employer] Work Phone: [phone] Hematocrit (HCT) 41.6 % Invalid Interpretation Code [employer] Work Phone: [phone] Hemoglobin (HGB) 13.7 g/dL Invalid Interpretation Code [employer] Work Phone: [phone] MCH 29.8 pg Invalid Interpretation Code [employer] Work Phone: [phone] MCHC 32.9 g/dL Invalid Interpretation Code [employer] Work Phone: [phone] MCV 90.4 fL Invalid Interpretation Code [employer] Work Phone: [phone] Platelets 230 10*3/mm3 Invalid Interpretation Code [employer] Work Phone: [phone] PMV by Golden 10.3 fL Invalid Interpretation Code [employer] Work Phone: [phone] Potassium 4.1 mmol/L Invalid Interpretation Code [employer] Work Phone: [phone] Protein 7.1 g/dL Invalid Interpretation Code [employer] Work Phone: [phone] RDW-CA 14.2 % Invalid Interpretation Code [employer] Work Phone: [phone] Sodium 141 mmol/L Invalid Interpretation Code [employer] Work Phone: [phone] Urea nitrogen 17 mg/dL Invalid Interpretation Code [employer] Work Phone: [phone] WBC (Leukocytes) 6.1 10*3/uL Invalid Interpretation Code [employer] Work Phone: [phone] Clinical Lists Update: Prelo tumbler tender 02-26-2016 Thyroid stimulating hormone (TSH) 0.99 u[iU]/mL Invalid Interpretation Code [employer] Work Phone: [phone] Office Visit: [facility] 11-05-19 16 General cardiovascular disease 10Y risk [#] [place].D'Agost[place] 8 % Invalid Interpretation Code [employer] Work Phone: [phone] Tobacco smoking status NHIS Never smoker Invalid Interpretation Code [employer] Work Phone: [phone] Tobacco use CPHS Never smoker Invalid Interpretation Code [employer] Work Phone: [phone] Replaced Document: [facility] CG Observationson 11-05-2015 EKG QRS axis 6 deg Invalid Interpretation Code [employer] Work Phone: [phone] electrocardiogram interpretation Sinus Rhythm WITHIN NORMAL LIMITS Invalid Interpretation Code [employer] Work Phone: [phone] GE use only - for [employer] import when terms are not otherwise specified 418 ms Invalid Interpretation Code [employer] Work Phone: [phone] Interpretation Sinus Rhythm WITHIN NORMAL LIMITS Invalid Interpretation Code [employer] Work Phone: [phone] P [place] 38 deg Invalid Interpretation Code [employer] Work Phone: [phone] P wave axis, electrocardiogram 38 deg Invalid Interpretation Code [employer] Work Phone: [phone] NH Interval 184 ms Invalid Interpretation Code [employer] Work Phone: [phone] NH interval, electrocardiogram 184 ms Invalid Interpretation Code [employer] Work Phone: [phone] Pulse (Heart Rate) 60 /min Invalid Interpretation Code [employer] Work Phone: [phone] QRS axis, electrocardiogram 6 deg Invalid Interpretation Code [employer] Work Phone: [phone] QRS Duration 106 ms Invalid Interpretation Code [employer] Work Phone: [phone] QRS duration, electrocardiogram 106 ms Invalid Interpretation Code [facility] Work Phone: [phone] QT Interval new path ms Invalid Interpretation Code [facility] Work Phone: [phone] QT interval, electrocardiogram new path ms Invalid Interpretation Code [facility] Work Phone: [phone] QTc [place] 418 ms Invalid Interpretation Code [facility] Work Phone: [phone] T [place] 22 deg Invalid Interpretation Code [facility] Work Phone: [phone] T wave axis, electrocardiogram 22 deg Invalid Interpretation Code [facility] Work Phone: [phone] Clinical Lists Update: Prelo tumbler tender 04-03-2015 Cholesterol 133 mg/dL Invalid Interpretation Code [facility] Work Phone: [phone] HDL Cholesterol 45 mg/dL Invalid Interpretation Code [facility] Work Phone: [phone] LDL Cholesterol 63 mg/dL Invalid Interpretation Code [facility] Work Phone: [phone] Triglyceride 130 mg/dL Invalid Interpretation Code [facility] Work Phone: [phone] Office Visit: [facility] 09-06-20 14 cardiac risk group B Invalid Interpretation Code [facility] Work Phone: [phone] Tobacco smoking status NHIS Never Invalid Interpretation Code [facility] Work Phone: [phone] Replaced Document: Indigo Meyers Observationson 10-19-2012 Pulse (Heart Rate) 416 ms Invalid Interpretation Code [facility] Work Phone: [phone] Clinical Lists Update: Prelo tumbler tender 10-10-2012 Magnesium 1.9 mg/dL Invalid Interpretation Code [facility] Work Phone: [phone] Clinical Lists Update: Prelo tumbler tender 09-07-2012 MCHC 33.0 % Invalid Interpretation Code [facility] Work Phone: [phone] Vital Signs Date Time Vital Sign Value Performing Clinician Facility 07-03-2024 11:31-0400 Body mass index (BMI) [Ratio] 26.52 kg/m2 Perston Campbell MD Work Phone: [facility] 07-03-2024 11:31-0400 Body weight 65.77 kg Preston Campbell MD Work Phone: [facility] 07-03-2024 11:31-0400 Diastolic blood pressure 82 mm[Hg] Preston Campbell MD Work Phone: [facility] 07-03-2024 11:31-0400 Heart rate 68 /min Preston Campbell MD Work Phone: [facility] 07-03-2024 11:31-0400 SaO2% (BldA) [Mass fraction] 99 % Preston Campbell MD Work Phone: [facility] 07-03-2024 11:31-0400 Systolic blood pressure 126 mm[Hg] Preston Campbell MD Work Phone: [facility] 06-16-2022 15:10-0400 Body temperature 98.2 [degF] Luis Felipe Masci DO Work Phone: [facility] 06-16-2022 15:10-0400 Diastolic blood pressure 52 mm[Hg] Luis Felipe Masci DO Work Phone: [facility] 06-16-2022 15:10-0400 Heart rate 76 /min Luis Felipe Masci DO Work Phone: [facility] 06-16-2022 15:10-0400 SaO2% (BldA) [Mass fraction] 98 % Luis Felipe Masci DO Work Phone: [facility] 06-16-2022 15:10-0400 Systolic blood pressure 100 mm[Hg] Luis Felipe Masci DO Work Phone: [facility] 06-08-2017 10:06-0400 BP Diastolic 80 mm[Hg] Harumi DeFinis [facility] Work Phone: 06-08-2017 10:06-0400 BP Systolic 154 mm[Hg] Harumi DeFinis [facility] Work Phone: 06-08-2017 10:06-0400 Pulse (Heart Rate) 76 /min Harumi DeFinis [facility] Work Phone: 06-08-2017 10:06-0400 Respiratory Rate 18 /min Harumi DeFinis [facility] Work Phone: 05-07-2017 08:20-0400 BMI (Body Mass Index) 40.97 kg/m2 [facility] Work Phone: 05-07-2017 08:20-0400 BP Diastolic 62 mm[Hg] [facility] Work Phone: 05-07-2017 08:20-0400 BP Systolic 118 mm[Hg] [facility] Work Phone: 05-07-2017 08:20-0400 Height 157.48 cm [facility] Work Phone: 05-07-2017 08:20-0400 Pulse (Heart Rate) 72 /min [facility] Work Phone: 05-07-2017 08:20-0400 Respiratory Rate 18 /min [facility] Work Phone: 05-07-2017 08:20-0400 Weight 101.61 kg [facility] Work Phone: 10-27-2016 09:47-0500 BSA (Body Surface Area) 1.98 m2 [facility] Work Phone: 11-05-2015 10:46-0500 Heart rate 60 /min Danielumi DeFinis [facility] Work Phone: 10-19-2012 10:39-0500 Heart rate 416 ms Danielumi Ronaldis [facility] Work Phone: 06-02-2012 13:33-0400 Body Temperature 96.8 [degF] [facility] Work Phone: Encounters Encounter Date Encounter Type Care Provider Facility Start: 07-03-2024 End: 07-03-2024 Rell Campbell MD Work Phone: [facility] Start: 07-03-2024 End: 07-03-2024 Rell Campbell MD Work Phone: [facility] Start: 07-03-2024 End: 07-03-2024 Office outpatient visit 25 minutes Preston Campbell MD Work Phone: [facility] Comment on above: Neuropathy (Primary Dx); Chronic bilateral low back pain without sciatica; Parkinson's disease without dyskinesia, with fluctuating manifestations (CMS/HCC); Stress; Chronic migraine without aura, intractable, without status migrainosus (CMS/HCC); Memory loss; Dysarthria Start: 07-03-2024 End: 07-03-2024 ambulatory PRESTON CAMPBELL Not Available Start: 06-02-2024 End: 06-02-2024 ambulatory MAGNOLIA Wilcox WECHETANDT Not Available Start: 05-31-2024 End: 05-31-2024 ambulatory PRESTON CAMPBELL Not Available Start: 04-05-2024 End: 04-05-2024 ambulatory PRESTON CAMPBELL Not Available Start: 02-22-2024 End: 02-22-2024 ambulatory MAGNOLIA S WEYGANDT Not Available Start: 01-17-2024 End: 01-17-2024 ambulatory PRESTON CAMPBELL Not Available Start: 12-30-2023 End: 12-30-2023 ambulatory PRESTON CAMPBELL Not Available Start: 11-04-2023 End: 11-04-2023 ambulatory MAGNOLIA S WEYGANDT Not Available Start: 12-11-2022 Telephone encounter Luis Felipe camilo DO Work Phone: Hematology/Oncology Comment on above: Results Start: 12-11-2022 End: 12-12-2022 ambulatory DESMOND MARYANNE SHINE Facility:[facility] Start: 12-10-2022 Orders Only Luis Felipe Anderson Work Phone: Hematology/Oncology Comment on above: 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 Dx); Iron malabsorption Start: 09-02-2022 Telephone encounter Luis Felipe camilo DO Work Phone: Hematology/Oncology Comment on above: Patient Question Start: 08-26-2022 Telephone encounter Luis Felipe camilo DO Work Phone: Hematology/Oncology Comment on above: Patient Question Start: 08-14-2022 End: 08-14-2022 ambulatory DESMOND NOEL Facility:[facility] Start: 08-12-2022 Orders Only Luis Felipe Anderson Work Phone: Hematology/Oncology Comment on above: 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 Dx); Iron malabsorption Start: 07-22-2022 Telephone encounter Luis Felipe camilo DO Work Phone: Hematology/Oncology Comment on above: Patient Question Start: 06-22-2022 Telephone encounter Dio Emile CHANDL[facility] Comment on above: Patient Question Start: 06-18-2022 Telephone encounter Luis Felipe camilo DO Work Phone: Hematology/Oncology Comment on above: Results (Low iron sa turation) Start: 06-16-2022 End: 06-16-2022 ambulatory Luis Felipe Radford DO Work Phone: Hematology/Oncology Comment on above: 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 Dx); Chronic deep vein thrombosis (DVT) of both lower extremities, unspecified vein (HCC); Coagulation defect (HCC) Start: 06-16-2022 End: 06-16-2022 Patient encounter procedure Luis Felipe Radford DO Work Phone: [facility] Procedures Date Procedure Procedure Detail Performing Clinician Start: 05-07-2017 End: 05-07-2017 Follow Up Appt 6 months Luis Felipe Garzon MD Start: 05-07-2017 End: 05-07-2017 Follow Up BP Check Luis Felipe Garzon MD Start: 05-07-2017 End: 05-07-2017 MMM Luis Felipe Garzon MD Start: 05-07-2017 End: 05-07-2017 Dietary management education, guidance, and counseling Mary Abreu Start: 05-07-2017 End: 05-07-2017 Follow Up Appt 6 months Luis Felipe Garzon MD Start: 05-07-2017 End: 05-07-2017 Follow Up BP Check Luis Felipe Garzon MD Start: 05-07-2017 End: 05-07-2017 MMM Luis Felipe Garzon MD Start: 10-27-2016 End: 10-27-2016 Follow Up Appt 6 months Kylee hawkins PA-C Work Phone: Start: 10-27-2016 End: 10-27-2016 PFM Kylee Burr PA-C Work Phone: Start: 10-27-2016 End: 10-27-2016 Follow Up Appt 6 months Kylee hawkins PA-C Work Phone: Start: 10-27-2016 End: 10-27-2016 PFM Kylee Burr PA-C Work Phone: Start: 04-27-2016 End: 10-15-2016 Follow Up Appt 6 months Luis Felipe Garzon MD Start: 04-27-2016 End: 05-07-2017 Follow Up Appt Other Luis Felipe Garzon MD Start: 04-27-2016 End: 10-15-2016 MMCinda Garzon MD Start: 04-27-2016 End: 10-15-2016 Follow Up Appt 6 months Luis Felipe Garzon MD Start: 04-27-2016 End: 05-07-2017 Follow Up Appt Other Luis Felipe Garzon MD Start: 04-27-2016 End: 10-15-2016 MMM Luis Felipe Garzon MD Start: 11-05-2015 End: 11-05-2015 Follow Up Appt 6 months Kylee hawkins PA-C Work Phone: Start: 11-05-2015 End: 11-05-2015 PFM Kylee Burr PA-C Work Phone: Start: 11-05-2015 End: 11-05-2015 Follow Up Appt 6 months Kylee hawkins PA-C Work Phone: Start: 11-05-2015 End: 11-05-2015 PFM Kylee Burr PA-C Work Phone: Start: 05-01-2015 End: 05-02-2015 Documentation of current medications Luis Felipe Garzon MD Start: 05-01-2015 End: 05-01-2015 Follow Up Appt 6 months Luis Felipe Garzon MD Start: 05-01-2015 End: 05-01-2015 Follow Up Appt Other Luis Felipe Garzon MD Start: 05-01-2015 End: 05-01-2015 MMM Luis Felipe Garzon MD Start: 05-01-2015 End: 05-02-2015 Documentation of current medications Luis Felipe Garzon MD Start: 05-01-2015 End: 05-01-2015 Follow Up Appt 6 months Luis Felipe Garzon MD Start: 05-01-2015 End: 05-01-2015 Follow Up Appt Other Luis Felipe Garzon MD Start: 05-01-2015 End: 05-01-2015 MMM Luis Felipe Garzon MD Start: 09-06-2014 End: 09-06-2014 Ecg routine ecg w/least 12 lds w/i&r Kylee Burr PA-C Work Phone: Start: 09-06-2014 End: 09-06-2014 Follow Up Appt 6 months Kylee hawkins PA-C Work Phone: Start: 09-06-2014 End: 05-01-2015 Nuclear stress test -Lexiscan Kylee Burr PA-C Work Phone: Start: 09-06-2014 End: 09-06-2014 PFM Kylee Burr PA-C Work Phone: Start: 09-06-2014 End: 09-06-2014 Electrocardiogram, complete Kylee Wilder PA-C Work Phone: Start: 09-06-2014 End: 09-06-2014 Follow Up Appt 6 months Kylee hawkins PA-C Work Phone: Start: 09-06-2014 End: 05-01-2015 Nuclear stress test -[facility] Kylee Burr PA-C Work Phone: Start: 09-06-2014 End: 09-06-2014 PFM Kylee Burr PA-C Work Phone: Start: 03-15-2014 End: 03-15-2014 Follow Up Appt 6 months Luis Felipe Garzon MD Start: 03-15-2014 End: 05-01-2015 Follow Up Appt Other Luis Felipe Garzon MD Start: 03-15-2014 End: 03-15-2014 MMM Luis Felipe Garzon MD Start: 03-15-2014 End: 03-15-2014 Follow Up Appt 6 months Luis Felipe Garzon MD Start: 03-15-2014 End: 05-01-2015 Follow Up Appt Other Luis Felipe Garzon MD Start: 03-15-2014 End: 03-15-2014 MMM Luis Felipe Garzon MD Start: 07-26-2013 End: 07-26-2013 Follow Up Appt 6 months Kylee hawkins PA-C Work Phone: Start: 07-26-2013 End: 07-26-2013 PFM Kylee Burr PA-C Work Phone: Start: 07-26-2013 End: 07-26-2013 Follow Up Appt 6 months Kylee hawkins PA-C Work Phone: Start: 07-26-2013 End: 07-26-2013 PFM Kylee Burr PA-C Work Phone: Start: 01-16-2013 End: 01-16-2013 Follow Up Appt 6 months Luis Felipe Garzon MD Start: 01-16-2013 End: 01-16-2013 MMM Luis Felipe Garzon MD Start: 01-16-2013 End: 01-16-2013 Follow Up Appt 6 months Luis Felipe Garzon MD Start: 01-16-2013 End: 01-16-2013 MMM Luis Felipe Garzon MD Start: 10-31-2012 End: 01-16-2013 Echocardiography Luis Felipe Garzon MD Start: 10-31-2012 End: 01-16-2013 Echocardiography Luis Felipe Garzon MD Start: 10-19-2012 End: 01-16-2013 24 hour holter monitor Luis Felipe Garzon MD Start: 10-19-2012 End: 10-19-2012 Ecg routine ecg w/least 12 lds w/i&r Luis Felipe Garzon MD Start: 10-19-2012 End: 10-19-2012 Follow Up Appt 3 months Luis Felipe Garzon MD Start: 10-19-2012 End: 01-16-2013 Nuclear stress test -adenosine Luis Felipe Garzon MD Start: 10-19-2012 End: 01-16-2013 24 hour holter monitor Luis Felipe Garzon MD Start: 10-19-2012 End: 10-19-2012 Electrocardiogram, complete Luis Felipe nevarez MD Start: 10-19-2012 End: 10-19-2012 Follow Up Appt 3 months Luis Felipe Garzon MD Start: 10-19-2012 End: 01-16-2013 Nuclear stress test -adenosine Luis Felipe Garzon MD Start: 11-18-2010 Mammography Luis Felipe Radford DO Work Phone: Start: 09-08-2009 Colonoscopy Luis Felipe Radford DO Work Phone: Plan of Treatment Date Care Activity Detail Author Start: 07-31-2024 End: 07-31-2024 Patient encounter procedure 07/31/2024 11:40 AM EST Office Visit [facility] [address] [place] [id number] Preston Campbell MD [address], [place] [id number] [facility] Start: 07-03-2024 End: 07-03-2025 Ammonia [Mass/volume] in Plasma Ammonia Lab Routine Neuropathy Chronic bilateral low back pain without sciatica Parkinson's disease without dyskinesia, with fluctuating manifestations (CMS/HCC) Stress Chronic migraine without aura, intractable, without status migrainosus (CMS/HCC) Memory loss Dysarthria Expected: 07/03/2024 (Approximate), Expires: 07/03/2025 [facility] Comment on above: Expected: 07/03/2024 (Approximate), Expires: 07/03/2025 Start: 07-03-2024 End: 07-03-2025 Cobalamin (Vitamin B12) [Mass/volume] in Serum or Plasma Vitamin B12 Lab Routine Neuropathy Chronic bilateral low back pain without sciatica Parkinson's disease without dyskinesia, with fluctuating manifestations (CMS/HCC) Stress Chronic migraine without aura, intractable, without status migrainosus (CMS/HCC) Memory loss Dysarthria Expected: 07/03/2024 (Approximate), Expires: 07/03/2025 [facility] Comment on above: Expected: 07/03/2024 (Approximate), Expires: 07/03/2025 Start: 07-03-2024 End: 07-03-2025 Comprehensive metabolic 2000 panel - Serum or Plasma Comprehensive metabolic panel Lab Routine Neuropathy Chronic bilateral low back pain without sciatica Parkinson's disease without dyskinesia, with fluctuating manifestations (CMS/HCC) Stress Chronic migraine without aura, intractable, without status migrainosus (CMS/HCC) Memory loss Dysarthria Expected: 07/03/2024 (Approximate), Expires: 07/03/2025 [facility] Comment on above: Expected: 07/03/2024 (Approximate), Expires: 07/03/2025 Start: 07-03-2024 End: 07-03-2025 CT Head WO contrast CT head wo IV contrast Imaging Routine Neuropathy Chronic bilateral low back pain without sciatica Parkinson's disease without dyskinesia, with fluctuating manifestations (CMS/HCC) Stress Chronic migraine without aura, intractable, without status migrainosus (CMS/HCC) Memory loss Dysarthria Expected: 07/03/2024, Expires: 07/03/2025 [facility] Work Phone: Comment on above: Expected: 07/03/2024 , Expires: 07/03/2025 Start: 07-03-2024 End: 07-03-2025 Heavy metals, blood Heavy metals, blood Lab Routine Neuropathy Chronic bilateral low back pain without sciatica Parkinson's disease without dyskinesia, with fluctuating manifestations (CMS/HCC) Stress Chronic migraine without aura, intractable, without status migrainosus (CMS/HCC) Memory loss Dysarthria Expected: 07/03/2024 (Approximate), Expires: 07/03/2025 [facility] Comment on above: Expected: 07/03/2024 (Approximate), Expires: 07/03/2025 Start: 07-03-2024 End: 07-03-2025 Thyrotropin [Units/volume] in Serum or Plasma TSH Lab Routine Neuropathy Chronic bilateral low back pain without sciatica Parkinson's disease without dyskinesia, with fluctuating manifestations (CMS/HCC) Stress Chronic migraine without aura, intractable, without status migrainosus (CMS/HCC) Memory loss Dysarthria Expected: 07/03/2024 (Approximate), Expires: 07/03/2025 [facility] Comment on above: Expected: 07/03/2024 (Approximate), Expires: 07/03/2025 Start: 07-03-2024 End: 07-03-2025 Valproic acid level, total Valproic acid level, total Lab Routine Neuropathy Chronic bilateral low back pain without sciatica Parkinson's disease without dyskinesia, with fluctuating manifestations (CMS/HCC) Stress Chronic migraine without aura, intractable, without status migrainosus (CMS/HCC) Memory loss Dysarthria Expected: 07/03/2024 (Approximate), Expires: 07/03/2025 [facility] Comment on above: Expected: 07/03/2024 (Approximate), Expires: 07/03/2025 Start: 07-03-2024 End: 07-03-2024 Patient encounter procedure 07/03/2024 11:40 AM EDT Office Visit [facility] [address] [place] [id number] Preston Campbell MD [address], [place] [id number] Arrived [facility] Comment on above: Arrived Start: 12-11-2022 End: 02-10-2023 CBC W Auto Differential panel - Blood CBC + DIFF Lab STAT Iron deficiency anemia due to chronic blood loss Iron malabsorption Expected: 12/11/2022, Expires: 02/10/2023 [facility] Work Phone: Comment on above: Expected: 12/11/2022 , Expires: 02/10/2023 Start: 12-11-2022 End: 02-10-2023 Ferritin [Mass/volume] in Serum or Plasma FERRITIN BLD Lab Routine Iron deficiency anemia due to chronic blood loss Iron malabsorption Expected: 12/11/2022, Expires: 02/10/2023 [facility] Work Phone: Comment on above: Expected: 12/11/2022 , Expires: 02/10/2023 Start: 12-11-2022 End: 02-10-2023 Iron and Iron binding capacity panel - Serum or Plasma IRON + TIBC Lab Routine Iron deficiency anemia due to chronic blood loss Iron malabsorption Expected: 12/11/2022, Expires: 02/10/2023 [facility] Work Phone: Comment on above: Expected: 12/11/2022 , Expires: 02/10/2023 Start: 09-20-2022 ADVANCE DIRECTIVE DISCUSSION ADVANCE DIRECTIVE DISCUSSION [facility] Start: 09-20-2022 DEPRESSION ASSESSMENT DEPRESSION ASS ESSMENT [facility] Start: 08-14-2022 End: 10-14-2022 CBC W Auto Differential panel - Blood CBC + DIFF Lab STAT Iron deficiency anemia due to chronic blood loss Iron malabsorption Expected: 08/14/2022, Expires: 10/14/2022 [facility] Work Phone: Comment on above: Expected: 08/14/2022 , Expires: 10/14/2022 Start: 08-14-2022 End: 10-14-2022 Ferritin [Mass/volume] in Serum or Plasma FERRITIN BLD Lab Routine Iron deficiency anemia due to chronic blood loss Iron malabsorption Expected: 08/14/2022, Expires: 10/14/2022 [facility] Work Phone: Comment on above: Expected: 08/14/2022 , Expires: 10/14/2022 Start: 08-14-2022 End: 10-14-2022 Iron and Iron binding capacity panel - Serum or Plasma IRON + TIBC Lab Routine Iron deficiency anemia due to chronic blood loss Iron malabsorption Expected: 08/14/2022, Expires: 10/14/2022 [facility] Work Phone: Comment on above: Expected: 08/14/2022 , Expires: 10/14/2022 Start: 06-16-2022 End: 08-16-2022 B 2 GPI IGG & IGM [facility] Work Phone: Comment on above: Expected: 06/16/2022 , Expires: 08/16/2022 Start: 06-16-2022 End: 08-16-2022 Cardiolipin IgG and IgM panel - Serum [facility] Work Phone: Comment on above: Expected: 06/16/2022 , Expires: 08/16/2022 Start: 06-16-2022 End: 08-16-2022 Ferritin [Mass/volume] in Serum or Plasma [facility] Work Phone: Comment on above: Expected: 06/16/2022 , Expires: 08/16/2022 Start: 06-16-2022 End: 08-16-2022 Iron and Iron binding capacity panel - Serum or Plasma [facility] Work Phone: Comment on above: Expected: 06/16/2022 , Expires: 08/16/2022 Start: 05-21-2022 Influenza vaccination INFLUENZA (#1) [facility] Start: 03-13-2022 COVID-19 VACCINE (4 - Booster for Moderna series) COVID-19 VACCINE (4 - Booster for Moderna series) [facility] Start: 09-20-2021 ADVANCE DIRECTIVE DISCUSSION ADVANCE DIRECTIVE DISCUSSION [facility] Start: 09-20-2021 DEPRESSION ASSESSMENT DEPRESSION ASS ESSMENT [facility] Start: 11-17-2017 End: 11-17-2017 Appointment Appointment [facility] Work Phone: Start: 06-08-2017 End: 06-08-2017 Appointment Appointment [facility] Work Phone: Start: 05-07-2017 End: 05-07-2017 Follow Up Appt 6 months Follow Up Appt 6 months [facility] Work Phone: Start: 05-07-2017 End: 05-07-2017 Follow Up BP Check Follow Up BP Check [facility] Work Phone: Start: 05-07-2017 End: 05-07-2017 MMM MMM [facility] Work Phone: Start: 05-07-2017 End: 05-07-2017 Follow Up Appt 6 months Follow Up Appt 6 months [facility] Work Phone: Start: 05-07-2017 End: 05-07-2017 Follow Up BP Check Follow Up BP Check [facility] Work Phone: Start: 05-07-2017 End: 05-07-2017 MMM MMM [facility] Work Phone: Start: 10-27-2016 End: 10-27-2016 Follow Up Appt 6 months Follow Up Appt 6 months [facility] Work Phone: Start: 10-27-2016 End: 10-27-2016 PFM PFM [facility] Work Phone: Start: 10-27-2016 End: 10-27-2016 Follow Up Appt 6 months Follow Up Appt 6 months [facility] Work Phone: Start: 10-27-2016 End: 10-27-2016 PFM PFM [facility] Work Phone: Start: 09-08-2016 LIPID SCREEN LIPID SCREEN [facility] Start: 04-27-2016 End: 10-15-2016 Follow Up Appt 6 months Follow Up Appt 6 months [facility] Work Phone: Start: 04-27-2016 End: 05-07-2017 Follow Up Appt Other Follow Up Appt Other [facility] Work Phone: Start: 04-27-2016 End: 10-15-2016 MMM MMM [facility] Work Phone: Start: 04-27-2016 End: 10-15-2016 Follow Up Appt 6 months Follow Up Appt 6 months [facility] Work Phone: Start: 04-27-2016 End: 05-07-2017 Follow Up Appt Other Follow Up Appt Other [facility] Work Phone: Start: 04-27-2016 End: 10-15-2016 MMM MMM [facility] Work Phone: Start: 12-24-2015 DIABETES SCREEN DIABETES SCREEN [facility] Start: 11-05-2015 End: 11-05-2015 Follow Up Appt 6 months Follow Up Appt 6 months [facility] Work Phone: Start: 11-05-2015 End: 11-05-2015 PFM PFM [facility] Work Phone: Start: 11-05-2015 End: 11-05-2015 Follow Up Appt 6 months Follow Up Appt 6 months [facility] Work Phone: Start: 11-05-2015 End: 11-05-2015 PFM PFM [facility] Work Phone: Start: 05-01-2015 End: 05-01-2015 Follow Up Appt 6 months Follow Up Appt 6 months [facility] Work Phone: Start: 05-01-2015 End: 05-01-2015 Follow Up Appt Other Follow Up Appt Other [facility] Work Phone: Start: 05-01-2015 End: 05-01-2015 MMM MMM [facility] Work Phone: Start: 05-01-2015 End: 05-01-2015 Follow Up Appt 6 months Follow Up Appt 6 months [facility] Work Phone: Start: 05-01-2015 End: 05-01-2015 Follow Up Appt Other Follow Up Appt Other [facility] Work Phone: Start: 05-01-2015 End: 05-01-2015 MMM MMM [facility] Work Phone: Start: 09-06-2014 End: 09-06-2014 Ecg routine ecg w/least 12 lds w/i&r EKG (In office) [facility] Work Phone: Start: 09-06-2014 End: 09-06-2014 Follow Up Appt 6 months Follow Up Appt 6 months [facility] Work Phone: Start: 09-06-2014 End: 09-06-2014 Nuclear stress test -Lexiscan Nuclear stress test -Lexiscan [email or web address] Work Phone: Start: 09-06-2014 End: 09-06-2014 PFM PFM [facility] Work Phone: Start: 09-06-2014 End: 09-06-2014 Electrocardiogram, complete EKG (In office) [facility] Work Phone: Start: 09-06-2014 End: 09-06-2014 Follow Up Appt 6 months Follow Up Appt 6 months [facility] Work Phone: Start: 09-06-2014 End: 09-06-2014 Nuclear stress test -Lexiscan Nuclear stress test -Lexiscan [facility] Work Phone: Start: 09-06-2014 End: 09-06-2014 PFM PFM [facility] Work Phone: Start: 03-15-2014 End: 03-15-2014 Follow Up Appt 6 months Follow Up Appt 6 months [facility] Work Phone: Start: 03-15-2014 End: 05-01-2015 Follow Up Appt Other Follow Up Appt Other [facility] Work Phone: Start: 03-15-2014 End: 03-15-2014 MMM MMM [facility] Work Phone: Start: 03-15-2014 End: 03-15-2014 Follow Up Appt 6 months Follow Up Appt 6 months [facility] Work Phone: Start: 03-15-2014 End: 05-01-2015 Follow Up Appt Other Follow Up Appt Other [facility] Work Phone: Start: 03-15-2014 End: 03-15-2014 MMM MMM [facility] Work Phone: Start: 07-26-2013 End: 07-26-2013 Follow Up Appt 6 months Follow Up Appt 6 months [facility] Work Phone: Start: 07-26-2013 End: 07-26-2013 PFM PFM [facility] Work Phone: Start: 07-26-2013 End: 07-26-2013 Follow Up Appt 6 months Follow Up Appt 6 months [facility] Work Phone: Start: 07-26-2013 End: 07-26-2013 PFM PFM [facility] Work Phone: Start: 02-20-2013 BONE DENSITY BONE DENSITY [facility] Start: 02-20-2013 Pneumococcal Vaccine : 65+ Years (1 of 1 - PCV) Pneumococcal Vaccine: 65+ Years (1 of 1 - PCV) [facility] Start: 02-20-2013 PNEUMOCOCCAL: 65+ (1 - PCV) PNEUMOCOCCAL: 65+ (1 - PCV) [facility] Start: 01-16-2013 End: 01-16-2013 Follow Up Appt 6 months Follow Up Appt 6 months [employer] Work Phone: Start: 01-16-2013 End: 01-16-2013 MMM MMM [employer] Work Phone: Start: 01-16-2013 End: 01-16-2013 Follow Up Appt 6 months Follow Up Appt 6 months [employer] Work Phone: Start: 01-16-2013 End: 01-16-2013 MMM MMM [employer] Work Phone: Start: 10-31-2012 End: 11-01-2012 Echocardiography Echocardiogram (complete) [employer] Work Phone: Start: 10-31-2012 End: 11-01-2012 Echocardiography Echocardiogram (complete) [employer] Work Phone: Start: 10-19-2012 End: 10-19-2012 24 hour holter monitor 24 hour holter monitor [employer] Work Phone: Start: 10-19-2012 End: 10-19-2012 Ecg routine ecg w/least 12 lds w/i&r EKG (In office) [employer] Phone: Start: 10-19-2012 End: 10-19-2012 Follow Up Appt 3 months Follow Up Appt 3 months [employer] Work Phone: Start: 10-19-2012 End: 10-19-2012 Nuclear stress test -adenosine Nuclear stress test -adenosine [employer] Work Phone: Start: 10-19-2012 End: 10-19-2012 24 hour holter monitor 24 hour holter monitor [employer] Phone: Start: 10-19-2012 End: 10-19-2012 Electrocardiogram, complete EKG (In office) [employer] Work Phone: Start: 10-19-2012 End: 10-19-2012 Follow Up Appt 3 months Follow Up Appt 3 months [facility] Work Phone: Start: 10-19-2012 End: 10-19-2012 Nuclear stress test -adenosine Nuclear stress test -adenosine [facility] Work Phone: Start: 11-19-2011 Mammography MAMMOGRAM [facility] Start: 09-08-2010 Colonoscopy COLONOSCOPY [facility] Start: 09-08-2010 COLORECTAL CANCER SCREENING COLORECTAL CANCER SCREENING [facility] Start: 02-20-1998 SHINGRIX VACCINE (1 of 2) REGAN GRIX VACCINE (1 of 2) [facility] Start: 02-20-1993 COLOGUARD (FIT-DNA) COLOGUARD (FIT-D NA) [facility] Start: 02-20-[address] COLONOGRAPHY [facility] Start: 02-20-1993 FECAL OCCULT BLOOD FECAL OCCULT BLOO D [facility] Start: 02-20-1993 SIGMOIDOSCOPY SIGMOIDOSCOPY [facility] Start: 02-20-1967 Urine microalbumin profile DTAP,TDAP ,TD (1 - Tdap) [facility] Start: 02-20-1966 HEPATITIS C SCREENING HEPATITIS C [place] LAL[facility] Payers Date Payer Category Payer Private Health Insurance [facility] [place] [id number] 2018 Medicare [id number] 2018 Unknown [employer] SUPPLEMENT [id number] 2018-Present [phone] [id number] [place] [address] Indemnity [id number] 2013 Medicare [id number] 2013 Unknown [id number] 2013 Medicare [id number] 1948 Unknown [id number] 1948 Unknown [id number] 1948 Unknown [id number] 1948 Unknown [id number] 1948 Unknown [id number] 1948 Unknown [id number] 1948 Unknown [id number] 1948 Unknown [id number] Social History Date Type Detail Facility Start: 03-15-2012 End: 03-22-2023 Tobacco smoking status NHIS Never smoked tobacco [facility] Start: 03-15-2012 End: 03-22-2023 Tobacco use and exposure Smokeless tobacco non-user [facility] Start: 06-16-2022 Alcohol intake 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 alcohol (finding) [facility] Start: 1950 Sex Assigned At Not on file [facility] Start: 04-05-2024 End: 07-03-2024 Alcoholic beverage intake Lifetime non-drinker (finding) [facility] Start: 04-05-2024 End: 07-03-2024 History of Social function [facility] Start: 04-05-2024 End: 07-03-2024 Tobacco use panel [facility] Start: 03-22-2023 Alcohol Comment Caffeine: 1-2 cups/day tea [facility] Clinical Notes 06-16-2022 to 07-03-2024 Preston Campbell MD - 07/03/2024 11:40 AM EDTTelephone Encounter - Javid Vinson Pss - 12/13/2022 11:59 AM EDTTelephone Encounter - Luis Felipe Radford DO - 12/11/2022 7:00 PM EDT Note Date & Type Note Facility 07-03-2024 History of Present illness Narrative Images from the original note were not included. CHIEF COMPLAINT: Viola Bennett is a 74 y.o. female here today for Chief Complaint Patient presents with Extremity Weakness HISTORY OF PRESENT ILLNESS: History of Present Illness The patient is a 74-year-old female who presents for evaluation of multiple medical concerns. She is accompanied by an adult female. She was previously prescribed gabapentin for neuropathy, which was later discontinued due to side effects including leg weakness and memory issues. These symptoms have largely resolved since stopping the medication, and she reports feeling better. Although remains confused. She reports she never had uncomfortable paresthesias. She experiences headaches that extend from her head to her neck, which are somewhat alleviated by Tylenol and applying ice. Her most bothersome symptom is her headache. She receives Emgality injections once a month but has not noticed significant improvement. She takes Zofran as needed, approximately once or twice a month. She also reports a clicking sound in her mouth when she talks, which is not present today. She experiences headaches almost daily and has had several falls resulting in emergency room visits. She has been taking Xyzal and Singulair for 10 to 15 years and is scheduled to see an primary care physician on . She is unsure about the effects of her mental health medications, including Depakote, citalopram, and amitriptyline. Her citalopram was increased to 30 mg, probably 2 weeks ago by , and she takes 1-1/2 tablets a day. She has depression, which she attributes to having to take care of her . She has been experiencing gastrointestinal issues, including constipation and diarrhea. She was unable to undergo a colonoscopy due to severe constipation. She is scheduled to see Dr. Bailey next Wednesday and has an MRI scheduled for July 25, 2024. She reports poor appetite and weight loss (>20lb)but no abdominal pain. She was prescribed a liquid laxative by Dr. Noel and started on MiraLAX by the shingles roofer. She was also put on a colon cleanse by Dr. Medina, which resulted in an ER visit due to dehydration and low potassium. She has Parkinson's disease, which contributes to memory loss, slurred speech, and leg weakness. She was taking carbidopa-levodopa for Parkinson's but experienced significant side effects, including slurred speech and memory loss. She went to the emergency room after a colon cleanse, where they initially thought she was having a stroke but later attributed her symptoms to medication. She has been taking carbidopa-levodopa 2 pills 3 times a day and 1 at bedtime. She also takes Depakote 500 mg, 1 pill in the morning. She reports poor sleep despite taking amitriptyline 50 mg at bedtime. Last week, she attended her daughter's birthday republican and drove to the house. However, the accompanying person was not comfortable with her driving home due to her appearing intoxicated, even though it was a short drive. She has a lot of slowing down and weakness in the legs. A month ago, she went to the ER, and they thought she was having a stroke, but it was not. She was in the hospital in 11/2023 after tripping on the steps and hitting her head on a door. She is not taking losartan anymore. 06/13: 74 year old female to follow up on test results, neuropathy via telemedicine visit, verbal consent obtained. 05/31/24 EMG/NCS: consistent with peripheral neuropathy, moderate to severe degree. Last visit referred to dr. Noonan for severe stenosis, patient scheduled. Continues t feels off balance at times, overall feels extra dose of sinemet at bedtime is helpful. 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 Going to follow up with pcp d/t currently celexa. All questions and concerns addressed. Last visit 04/05/24 NMF: Notes shaking more, notes left leg shakes a little more at night. Wonders about taking at night. Currently takes 9a, 2p, 6p. Bedtime is about 1a, out of bed 9a. No daytime somnolence or eds. Last visit 03/13: 74 year old female presented to office with son to follow up parkinsons. Last visit sinemet increased, per patient feels it is helpful with tremors, overall decreased. Started therapy yesterday, main concern when gets fatigue and tired, will have left leg weakness, other times no weakness per patient. C/o chronic back pain, continues to receive pain injections by dr. Sheriff for back pain. Per patient was told years ago had spinal stenosis. Denies n/t/burning sensation, previously admitted to pain that would radiate down leg but injections helpful. 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 Difficult for patient, son and pt looking at different options available. Emgality remains effective for migraines, rarely occurs, some months migraine free. All questions and concerns addressed. Current Outpatient Medications on File Prior to Visit Medication Sig Dispense Refill amitriptyline (Elavil) 50 MG tablet Take 1 tablet (50 mg) by mouth at bedtime 90 tablet 3 Ascorbic Acid (vitamin C) 1000 MG tablet Take 1,000 mg by mouth in the morning. carbidopa-levodopa (Sinemet) 25-100 MG tablet take 2 tablets by mouth IN THE MORNING 2 tablets AT NOON 2 tablets IN THE EVENING and 2 tablets at bedtime 720 tablet 1 carbidopa-levodopa (Sinemet) 25-100 MG tablet Take 2 pills at 9a, 2p, 6p, and one pill at bedtime 630 tablet 2 citalopram (CeleXA) 20 MG tablet Take 20 mg by mouth in the morning. divalproex (Depakote ER) 500 MG 24 hr tablet take 1 tablet by mouth every morning 30 tablet 0 Eliquis 5 MG tablet Take 5 mg by mouth every 12 (twelve) hours. gabapentin (Neurontin) 100 MG capsule Take 1 capsule (100 mg) by mouth in the morning and 1 capsule (100 mg) in the evening and 1 capsule (100 mg) before bedtime. 90 capsule 1 galcanezumab (Emgality) 120 MG/ML auto-injector Inject 120 mg under the skin every 30 (thirty) days. Multiple Vitamin (Multivitamin Adult) tablet as directed Orally potassium chloride CR (K-Tab) 20 MEQ ER tablet Take 20 mEq by mouth in the morning. prochlorperazine (Compazine) 5 MG tablet take 1 tablet by mouth three times a day if needed for nausea and vomiting Singulair 10 MG tablet Take 10 mg by mouth 1 (one) time each day at the same time. verapamil ER (Verelan) 120 MG 24 hr capsule Take 240 mg by mouth Daily No current facility-administered medications on file prior to visit. Past Medical History: Diagnosis Date Coronary disease (CMS/HCC) Fall 02/2021 hematoma to left leg Hypercholesterolemia (CMS/HCC) Hypertension (CMS/HCC) Insomnia Lumbar spondylosis Lumbar stenosis 08/2022 Migraines (CMS/HCC) VALENTIN (obstructive sleep apnea) Osteoporosis (CMS/HCC) Past Surgical History: Procedure Laterality Date CHOLECYSTECTOMY HYSTERECTOMY JOINT REPLACEMENT Bilateral total knee replacement OTHER SURGICAL HISTORY hematoma left leg Family History Problem Relation Name Age of Onset Heart disease Mother Cancer Father Heart attack Brother Sleep apnea Mother's Brother Sleep apnea Father's Brother No Known Problems Son No Known Problems Daughter Social History Tobacco Use Smoking status: Never Smokeless tobacco: Never Substance Use Topics Alcohol use: Never Comment: Caffeine: 1-2 cups/day tea ALLERGIES: Benadryl [diphenhydramine], Cefdinir, and Sulfa antibiotics REVIEW OF SYSTEMS: General: Appetite change: denies. Chills: denies. Fever: denies. Allergy/Immunology: Unusual rection to medications, food, animals or insects reaction: denies. Ophthalmologic: Visual acuity change: denies. ENT: Decreased hearing: denies. Endocrine: Weight loss: denies. Respiratory: Cough: denies. Wheezing: denies. Cardiovascular: Chest pain: denies. Palpitations: denies. Gastrointestinal: Abdominal pain: denies. Difficulty swallowing: denies Hematology: Bleeding problems: denies. Genitourinary: Painful urination: denies. Musculoskeletal: Joint pain: denies. Joint edema: denies. Skin: Rash: denies. Neurologic: Ataxia: denies, Tremor: denies. Psychiatric Anxiety: denies. Depression: denies. Insomnia: denies. Suicidal thoughts: denies. Also see HPI for elements of ROS documented therein and for details of positive findings, which shall supersede the foregoing. OBJECTIVE: Objective There were no vitals filed for this visit. There is no height or weight on file to calculate BMI. No orders to display No visits with results within 2 Month(s) from this visit. Latest known visit with results is: No results found for any previous visit. Results Imaging Normal MRI of the brain in December. Examination: General Exam: pleasant, well nourished, well developed, in no acute distress Head: normocephalic, atraumatic Eyes: extraocular movement intact (EOMI), pupils equal, round, reactive to light, upper eyelids normal , lower eyelids normal Ears: no obvious hearing deficit Nose: Nares patent Neck/Throat: neck supple, full range of motion Oral Cavity: mucosa moist Skin: warm and dry Heart: no murmurs, regular rate and rhythm, S1, S2 normal Lungs: clear to auscultation bilaterally, good air movement, no wheezes, rales, rhonci, speaks in full sentences Chest: normal shape and expansion Abdomen: bowel sounds present, soft, nontender, nondistended, no guarding or rigidity Extremities: no edema, no cyanosis Musculoskeletal: no swelling or deformity Neurologic: AAOx3, memory intact, fund of knowledge appropriate Naming and repetition intact, fluent language, follows 3-step commands Pupils equal and reactive EOM intact, no gaze preference or deviation, no nystagmus. Normal sensation in V1, V2, and V3 segments bilaterally No facial asymmetry, no nasolabial fold flattening Normal hearing to speech Normal palatal elevation, no uvular deviation Normal midline tongue protrusion 5/5 head turn and 5/5 shoulder shrug bilaterally 5/5 muscle power in bilateral shoulder abductors/adductors, elbow flexors/extensors, wrist flexors/extensors, finger abductors/adductors. 5/5 in bilateral hip flexors/extensors, knee flexors/extensors, ankle dorsiflexors and plantar flexors. Reflexes 2/4 throughout, bilateral flexor plantar response, no Rodas's, no clonus Sensation intact to touch, pinprick, vibration, and temperature in all limbs No hemineglect, no extinction to double sided stimulation (visual & tactile) Romberg absent Coordination intact to finger to nose and heel to regan, no tremor, no dysmetria Normal stance, no truncal ataxia Normal gait; patient able to tip-toe, heel-walk Psych: pleasant, cooperative, good eye contact, speech clear, judgement and insight good ASSESSMENT/PLAN: Assessment & Plan 1. Neuropathy. Gabapentin was discontinued due to adverse effects, including memory issues and leg weakness. Symptoms improved after discontinuation. 2. Headaches. Headaches are persistent and not significantly improved with Emgality. She uses Tylenol and ice for relief. A CT scan of the brain and blood work have been ordered to investigate further as she continues to experience falls. She has been advised to discontinue amitriptyline and monitor her response. If sleep disturbances occur, she may resume amitriptyline at a reduced dose of 25 mg. 3. Memory Loss. Memory loss is noted, potentially exacerbated by medication. Blood work and a CT scan of the brain have been ordered to investigate further. I suspect this represents metabolic encephalopathy due to multiple issues including gi/weight loss, meds. 4. Slurred Speech. Slurred speech was noted, particularly after taking carbidopa-levodopa for Parkinson's. Blood work and a CT scan of the brain have been ordered to investigate further. 5. Weight Loss. Significant weight loss noted, potentially contributing to other symptoms. Blood work and a CT scan of the brain have been ordered to investigate further. She is advised to follow up with her shingles roofer for ongoing GI issues. 6. Constipation. Constipation and alternating diarrhea are noted. She is advised to follow up with her shingles roofer next Wednesday. An MRI is scheduled for July 25 to investigate potential inflammation in the bile duct. Follow-up Return in 2 weeks for follow up. documented in this encounter [facility] 12-13-2022 Miscellaneous Notes I called and spoke to Viola and let her know the below information, she stated understanding. Patient stated that she did not have a colonoscopy/EGD done with at this time. She stated she had a colonoscopy scheduled with him but then ended up in the hospital from falling and it was canceled. She plans to have it rescheduled. Javid Chandler Can let her know that her blood counts and iron levels are doing well. Did she ever see Dr. Pandya for colonoscopy and EGD? Luis Felipe Radford DO documented in this encounter [facility] 09-02-2022 Miscellaneous Notes Patient notified and a copy of this note was faxed to Dr. Pandya's office. Beatriz Scott LPN Yes, that would be okay. Luis Felipe Radford DO Call placed to pt. She states she called Dr Pandya's office to tell them Dr Radford's instructions regarding her Eliquis (per note from earlier today) She states that Dr Pandya would really like to have her hold her Eliquis for 48 hours in case he has to do a biopsy. Please advise. Marce Galloway LPN Patient is planning to have a colonoscopy possible 09/[address] Pandya but needs to know when to stop blood thinners. Please advise the patient. documented in this encounter [facility] 08-27-[address] Radford- Patient has appointment with Dr. Pandya 09/15/2022. PSS- please schedule patient for CBC/Iron studies 11/16/2021 @ 10:00. No need to notify patient, she is aware of appointment date and time. Beatriz cSott LPN Blood counts and iron doing well. Did she see Dr. Pandya for colonoscopy? Recheck CBC/Iron studies in about 3 months. Luis Felipe Radford DO Pt calling about her lab results. Please contact pt and advise. Thank you! documented in this encounter [facility] 07-22-2022 Miscellaneous Notes Spoke with PT and given the information below. Pt stated her understanding. Thank you! Margot Joaquin Appears pt. Needs to have CBC/Iron studies the week of or around there. PSS please reach out to pt. And schedule. Does not say anything about needing a visit. Zaria Swain LPN Patient called asking if she is to have any appointments scheduled with Dr. Radford. Please advise. documented in this encounter [facility] 06-22-2022 Miscellaneous Notes Patient's daughter notified. Beatriz Scott LPN I did not specifically check her vitamin D level, but no harm in starting an [id number] vitamin D supplement. Typical dose would be 2000 units daily. Luis Felipe Radford DO Patient's daughter is asking if patient can start Vitamin D2? They were told at the to wait until labs were resulted. Beatriz Scott LPN Daughter Pau called in to see if there is a specific place she could find Vitamin D 2 for her mom. All she has found so far is Vitamin D 3. Please call Pau with the information. RAMESH Rodríguez documented in this encounter [facility] 06-19-2022 Miscellaneous Notes Schedule updated. Patient just started oral iron yesterday and is tolerating it so far. PSS- please schedule patient for CBC/iron studies 08/14/2022 @10:00. No need to notify patient, she is aware. Please cancel iron infusions. Patient is aware that if for any reason she cannot tolerate oral iron she needs to call back to reschedule iron infusions. Beatriz Scott LPN Left message for patient to contact office regarding oral vs iron infusion and rechecking labs. Beatriz Scott LPN If she is tolerating the oral iron fairly well then we can skip the iron sucrose infusions and just recheck CBC/iron studies in about 8 weeks. Luis Felipe Radford DO Do you want to address the new oral iron? Would you like me to let Dr Noel know she is getting infusions? Marce Galloway LPN Patient returned call and scheduled as directed. Patient stated that she just started (today) taking prescription iron from Dr. Noel - [place] iron - 150 mg tablets, 1 per mouth per day for 30 days. Please advise if we should still do iron sucrose infusions. She is also taking Vitamin D2 once/week but hasn't started that yet. Pau Santana LM for patient to return call. When patient calls, please warm transfer to [facility] PSS to schedule below. Pau Santana Can let her know that her iron saturation is still little bit low so I recommend 2 doses of iron sucrose. Check CBC/BMP/iron studies about 4 to 6 weeks after completing the 2 doses. Luis Felipe Radford DO documented in this encounter [facility] 06-16-2022 Note HNO ID: [id number] Author: Luis Felipe Radford DO Service: ? Author Type: Physician Type: Progress Notes Filed: 06/16/2022 3:50 PM Note Text: Hematologic problem(s): 1) DVT b/l LEs 2009. 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 She developed left lower leg pain just above the ankle January 2010. US was ordered that revealed an acute DVT in the right common femoral vein as well as an acute DVT in the right popliteal and right posterior tibial veins as well as right peroneal vein. There was a DVT also observed in the right tibial peroneal trunk. There was an acute DVT in the left tibial peroneal trunk. The remainder of the left lower extremity deep venous system was patent, compressible and competent. Acute superficial thrombophlebitis was noted in the right great saphenous vein extending into the right common femoral vein of the deep venous system. Acute superficial thrombophlebitis was also noted in the right small saphenous vein. The left greater saphenous vein was patent and compressible. Anticoagulated with LMWH and transitioned to warfarin. She had no preceding travel or change in daily habits. She had an episode of left lower extremities cellulitis in July 2010. During that episode she had atrial fibrillation with rapid ventricular response. She has history of hypertension but has not previously had a stroke or TIA. She has no history of chronic congestive heart failure. There was no other history of atrial fibrillation. Referred back for anemia. Interim history: Since last seen, she was transitioned to Eliquis. She is also been diagnosed with atrial fibrillation. Fell at home 05/28 and broke left hip. Had partial replacement 05/30. Was in rehab unit 12 days. Hgb 8.5 g/dL on 06/09. Evidently stools heme positive. Was on apixaban. Received 3 bags of iron. Hgb 06/15 up to 10.2 g/dL. Home now. Can walk with walker at home. Daughter lives close by. Patient cares for . Breathing is fine. Back on apixaban. Was told to get colonoscopy but no referrals or arrangements made. Doesn't see any blood in stools. PMH, medications and allergies personally reviewed by me today. Any changes documented in appropriate section. ROS: Constitutional: Denies episodes of fever and night sweats. Normal appetite. Neuro: Denies BOBBY.. HEENT: No recent change in voice, vision or hearing. Resp: Denies cough and hemoptysis. No shortness of breath at rest. CVS: Denies exertional chest pain and LE swelling. GI: Denies reflux, n/v, change in bowel habits and abdominal pain. No black or bloody stools. : No dysuria or gross hematuria. Endo: No hot flashes. Derm: No rash. Heme: No unusual bleeding or bruising. Psych: Normal mood. SOCIAL HISTORY Tobacco Use: Never Alcohol Use: No . Lives with . PHYSICAL EXAM: Vitals: Blood pressure 100/52, pulse 76, temperature 36.8 ?C (98.2 ?F), temperature source Temporal, SpO2 98 %. Well-appearing and in no acute distress. EYES: Sclerae are anicteric bilaterally. NECK: Supple. LYMPHATIC: There is no palpable cervical or supraclavicular adenopathy. RESPIRATORY: Inspiratory breath sounds are of normal intensity in all christina. No rales, wheezes or rhonchi. CARDIOVASCULAR: Rhythm is regular. ABDOMEN: The abdomen is nondistended. Extremities: Compression stockings on. SKIN: No jaundice. 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 No focal motor weakness. ASSESSMENT/PLAN: (D50.0) Iron deficiency anemia due to chronic blood loss (primary encounter diagnosis) Assessment: -She was found to have moderate anemia when hospitalized for recent hip fracture. Evidently stools were heme positive. She received parenteral iron infusion while in the hospital with nice increase in hemoglobin. -She remains on PPI. -She requires ongoing anticoagulation. Plan: -Recheck CBC and iron studies as well as reticulocyte count today. She may need further parenteral iron. -She will require ongoing surveillance for her blood counts and iron levels likely on an every 3-month basis. -Referral to Dr. Pandya for EGD and colonoscopy. (I82.908) Chronic deep vein thrombosis (DVT) of both lower extremities, unspecified vein (HCC) (D68.9) Coagulation defect (HCC) Assessment: -B/L DVT 2009. 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 -Had persistent elevation of IgA anticardiolipin with indeterminate LA. Plan: -Responded well to IV iron with nice increase in hemoglobin. -At this time continuation of anticoagulation outweighs risk of bleeding given her medical history of atrial fibrillation a (more content not included)... [facility] 06-16-[facility] History of Present illness Narrative Hematologic problem(s): 1) DVT b/l LEs 2009. 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 She developed left lower leg pain just above the ankle January 2010. US was ordered that revealed an acute DVT in the right common femoral vein as well as an acute DVT in the right popliteal and right posterior tibial veins as well as right peroneal vein. There was a DVT also observed in the right tibial peroneal trunk. There was an acute DVT in the left tibial peroneal trunk. The remainder of the left lower extremity deep venous system was patent, compressible and competent. Acute superficial thrombophlebitis was noted in the right great saphenous vein extending into the right common femoral vein of the deep venous system. Acute superficial thrombophlebitis was also noted in the right small saphenous vein. The left greater saphenous vein was patent and compressible. Anticoagulated with LMWH and transitioned to warfarin. She had no preceding travel or change in daily habits. She had an episode of left lower extremities cellulitis in July 2010. During that episode she had atrial fibrillation with rapid ventricular response. She has history of hypertension but has not previously had a stroke or TIA. She has no history of chronic congestive heart failure. There was no other history of atrial fibrillation. Referred back for anemia. Interim history: Since last seen, she was transitioned to Eliquis. She is also been diagnosed with atrial fibrillation. Fell at home 05/28 and broke left hip. Had partial replacement 05/30. Was in rehab unit 12 days. Hgb 8.5 g/dL on 06/09. Evidently stools heme positive. Was on apixaban. Received 3 bags of iron. Hgb 06/15 up to 10.2 g/dL. Home now. Can walk with walker at home. Daughter lives close by. Patient cares for . Breathing is fine. Back on apixaban. Was told to get colonoscopy but no referrals or arrangements made. Doesn't see any blood in stools. PMH, medications and allergies personally reviewed by me today. Any changes documented in appropriate section. ROS: Constitutional: Denies episodes of fever and night sweats. Normal appetite. Neuro: Denies BOBBY.. HEENT: No recent change in voice, vision or hearing. Resp: Denies cough and hemoptysis. No shortness of breath at rest. CVS: Denies exertional chest pain and LE swelling. GI: Denies reflux, n/v, change in bowel habits and abdominal pain. No black or bloody stools. : No dysuria or gross hematuria. Endo: No hot flashes. Derm: No rash. Heme: No unusual bleeding or bruising. Psych: Normal mood. SOCIAL HISTORY Tobacco Use: Never Alcohol Use: No . Lives with . PHYSICAL EXAM: Vitals: Blood pressure 100/52, pulse 76, temperature 36.8 C (98.2 F), temperature source Temporal, SpO2 98 %. Well-appearing and in no acute distress. EYES: Sclerae are anicteric bilaterally. NECK: Supple. LYMPHATIC: There is no palpable cervical or supraclavicular adenopathy. RESPIRATORY: Inspiratory breath sounds are of normal intensity in all christina. No rales, wheezes or rhonchi. CARDIOVASCULAR: Rhythm is regular. ABDOMEN: The abdomen is nondistended. Extremities: Compression stockings on. SKIN: No jaundice. 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 No focal motor weakness. ASSESSMENT/PLAN: (D50.0) Iron deficiency anemia due to chronic blood loss (primary encounter diagnosis) Assessment: -She was found to have moderate anemia when hospitalized for recent hip fracture. Evidently stools were heme positive. She received parenteral iron infusion while in the hospital with nice increase in hemoglobin. -She remains on PPI. -She requires ongoing anticoagulation. Plan: -Recheck CBC and iron studies as well as reticulocyte count today. She may need further parenteral iron. -She will require ongoing surveillance for her blood counts and iron levels likely on an every 3-month basis. -Referral to Dr. Pandya for EGD and colonoscopy. (I82.503) Chronic deep vein thrombosis (DVT) of both lower extremities, unspecified vein (HCC) (D68.9) Coagulation defect (HCC) Assessment: -B/L DVT 2009. 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 -Had persistent elevation of IgA anticardiolipin with indeterminate LA. Plan: -Responded well to IV iron with nice increase in hemoglobin. -At this time continuation of anticoagulation outweighs risk of bleeding given her medical history of atrial fibrillation as well as previous anticardiolipin antibody and heterozygous factor V Leiden. -Recheck anticardiolipin antibodies. Portions of this documentation were copied and pasted from previous office visit notes in order to provide a cohesive continuity of the history. The note has been reviewed and edited and updated as necessary. I spent a total of 50 minutes on the date of the service which included preparing to see the patient, [id number] patient care, completing clinical documentation, obtaining and/or reviewing separately obtained history, performing a medically appropriate examination, counseling and educating the patient/family/caregiver, ordering medications, tests, or procedures, and communicating results to the patient/family/caregiver. Luis Felipe Radford DO documented in this encounter [facility] Evaluation note Diagnosis Iron deficiency anemia due to chronic blood loss- Primary Iron deficiency anemia secondary to blood loss (chronic) Chronic deep vein thrombosis (DVT) of both lower extremities, unspecified vein (HCC) Coagulation defect (HCC) Other and unspecified coagulation defects [facility] Iron deficiency anemia due to chronic blood loss Iron deficiency anemia secondary to blood loss (chronic) Iron malabsorption Other specified intestinal malabsorption [facility] Iron deficiency anemia due to chronic blood loss- Primary Iron deficiency anemia secondary to blood loss (chronic) Iron malabsorption Other specified intestinal malabsorption [facility] Diagnosis Neuropathy- Primary Mononeuritis of unspecified site Chronic bilateral low back pain without sciatica Parkinson's disease without dyskinesia, with fluctuating manifestations (CMS/HCC) Stress Other psychological or physical stress, not elsewhere classified Chronic migraine without aura, intractable, without status migrainosus (CMS/HCC) Memory loss Dysarthria documented in this encounter [facility] Summary Purpose Family History No Family History Records FoundNo Family History Records Found Advance Directives No Advanced Directives Records FoundNo Advanced Directives Records Found Additional Source Comments Source Comments (unrecognize d section and content) In the event this informatio n is protected by the Federal Confidentiality of Alcohol and Drug Abuse Patient Records regulations: The Federal rules restrict any use of the information to criminally investigate or prosecute any alcohol or drug abuse patient.[facility] the event this information is protected by the Federal Confidentiality of Alcohol and Drug Abuse Patient Records regulations: The Federal rules restrict any use of the information to criminally investigate or prosecute any alcohol or drug abuse patient.[facility] HospitalIn the event this information is protected by the Federal Confidentiality of Alcohol and Drug Abuse Patient Records regulations: The Federal rules restrict any use of the information to criminally investigate or prosecute any alcohol or drug abuse patient.[facility] HospitalIn the event this information is protected by the Federal Confidentiality of Alcohol and Drug Abuse Patient Records regulations: The Federal rules restrict any use of the information to criminally investigate or prosecute any alcohol or drug abuse patient.[facility] HospitalIn the event this information is protected by the Federal Confidentiality of Alcohol and Drug Abuse Patient Records regulations: The Federal rules restrict any use of the information to criminally investigate or prosecute any alcohol or drug abuse patient.[facility] HospitalIn the event this information is protected by the Federal Confidentiality of Alcohol and Drug Abuse Patient Records regulations: The Federal rules restrict any use of the information to criminally investigate or prosecute any alcohol or drug abuse patient.[facility] HospitalIn the event this information is protected by the Federal Confidentiality of Alcohol and Drug Abuse Patient Records regulations: The Federal rules restrict any use of the information to criminally investigate or prosecute any alcohol or drug abuse patient.[facility] HospitalIn the event this information is protected by the Federal Confidentiality of Alcohol and Drug Abuse Patient Records regulations: The Federal rules restrict any use of the information to criminally investigate or prosecute any alcohol or drug abuse patient.[facility] HospitalIn the event this information is protected by the Federal Confidentiality of Alcohol and Drug Abuse Patient Records regulations: The Federal rules restrict any use of the information to criminally investigate or prosecute any alcohol or drug abuse patient[facility] Reason for Visit (unrecogniz ed section and content) Reason Comments New Patient Evaluation Reason Comments Results Low iron saturation Reason Comments Patient Question Reason Comments Results Reason Comments Extremity Weakness Care Teams (unrecognized sec tion and content) Grab Setter Relationship Specialty Start Date End Date PcpSwathi PCP - General 04/04/22 10/20/22 Grab Setter Relationship Specialty Start Date End Date Desmond Noel Chi [address] [place] [address] PCP - General Gerontology 06/18/22 Luis Felipe Radford, DO [address] [place] [address] Hematology/Oncology 06/19/22 Grab Setter Relationship Specialty Start Date End Date Desmond Noel Chi [address] [place] [address] PCP - General Gerontology 06/18/22 Luis Felipe Radford, DO [address] [place] [address] Hematology/Oncology 06/19/22 Grab Setter Relationship Specialty Start Date End Date Desmond Noel Chi [address] [place] [address] PCP - General Gerontology 06/18/22 Luis Felipe Radford, DO [address] [place] [address] Hematology/Oncology 06/19/22 Grab Setter Relationship Specialty Start Date End Date Desmond Noel Chi [address] [place] [address] PCP - General Gerontology 06/18/22 Luis Felipe Radford, DO [address] [place] [address] Hematology/Oncology 06/19/22 Grab Setter Relationship Specialty Start Date End Date Dewayne Noel MD [address] [place] [phone] PCP - General Geriatric Medicine 03/19/23 Grab Setter Relationship Specialty Start Date End Date Dewayne Noel MD [address] [place] [phone] PCP - General Geriatric Medicine 03/19/23 INFORMATION SOURCE (unrecogn ized section and content) DATE CREATED AUTHOR 12/15/2022 [facility] DATE CREATED AUTHOR 'S DERICK PINEDA 07/05/2024 [facility] dical Specialists [facility] FOR RECORDS PERTAINING TO PATIENTS WHO ARE OR HAVE BEEN ENROLLED IN A CHEMICAL DEPENDENCY/SUBSTANCEABUSE PROGRAM, SOME INFORMATION MAY BE OMITTED. This clinical summary was aggregated from multiple sources. Caution should be exercised in using it in the provision of clinical care. This summary normalizes information from multiple sources, and as a consequence, information in this document may materially change the coding, format and clinical context of patient data. In addition, data may be omitted in some cases. CLINICAL DECISIONS SHOULD BE BASED ON THE PRIMARY CLINICAL RECORDS. [facility] [employer] provides no warranty or guarantee of the accuracy or completeness of information in this document.
[2024-07-15] MEDS: Ondansetron 4 MG/2 ML Vial IV (17:47)
[2024-07-15] MEDS: Famotidine 200 MG/20 ML MDV 20 MG in 0.9% Normal Saline (Pres. free 8 ML 300 MG IV (17:53)
[2024-07-15 17:57] VITALS: BP 133/64; PULSE 80; RESP 16; TEMP 36.1; O2SAT 98
[2024-07-15 17:58] LABS: Hematocrit 35.6 % (37-47); Hemoglobin 12.5 g/dL (12.0-15.0); Mean Corp Hgb Conc 35.1 g/dL (32-36); Mean Corpuscular Hgb 31.9 pg (27.0-32.0); Mean Corpuscular Volume 90.8 fL (81-99); Platelet Count 237 K/mm3 (150-450); RBC Distribution Width SD 42.5 fl (35.1-43.9); Red Blood Count 3.92 M/mm3 (4.2-5.4); White Blood Count 4.7 K/mm3 (4.4-11.0)
[2024-07-15 18:22] LABS: AST(SGOT) 19 U/L (15-37); Alanine Aminotransfer ALT/SGPT 7 U/L (13-56); Alkaline Phosphatase 67 U/L (45-117); Anion Gap 15 (5-15); BUN 11 mg/dL (7-18); BUN/Creat Ratio 9.7 RATIO (10-20); Bilirubin, Direct 0.23 mg/dL (0.00-0.30); Calcium,Total 9.4 mg/dL (8.5-10.1); Chloride 104 mmol/L (98-107); Creatinine, Serum 1.13 mg/dL (0.55-1.02); EST Glomerular Filtration Rate 50 mL/min (>60); Est Glom Filt Rate - Afr Amer 60 mL/min (>60); Estimated Creatinine Clearance 37.96 ml/min; Globulin 3.7 g/dL (2.2-4.2); Glucose 143 mg/dL (74-106); Lipase 25 U/L (13-75); Protein, Total 7.7 g/dL (6.4-8.2); Sodium Level 136 mmol/L (136-145)
[2024-07-15 19:02] LABS: Mucous, Urine 0 SEEN /hpf (<or=2+); Red Blood Cells-Urine 0 SEEN /hpf (0-5); Squamous Epithelial Cells - UA 0 SEEN /hpf (5-10)
[2024-07-15 19:03] LABS: Color, Urine Straw (Yellow); Glucose, Dipstick Normal (Normal); Ketone-Dipstick 15 mg/dl (Negative); Leukocyte Esterase-Dipstick 100 /ul (Negative); Nitrite-Dipstick Negative (Negative); Occult Blood-Urine Negative /ul (Negative); Protein-Dipstick Negative (Negative); Urine Bilirubin Dipstick Negative (Negative); Urine Clarity Clear (Clear); Urine Urobilinogen Normal (Normal)
[2024-07-15 19:04] VITALS: BP 140/61; PULSE 79
[2024-07-15 19:10] LABS: Bacteria 2+ /hpf (None Seen); White Blood Cells 10-25 SEEN /hpf (0-5)
[2024-07-15 22:22] VITALS: BP 124/88; PULSE 70; RESP 20; TEMP 37.2
== END 2024-07-15 22:23 | disposition home or self-care (01) ==
PROVIDERS: Emergency Provider Emergency Medicine; PCP Family Medicine Geriatric Medicine; Visit Provider Emergency Medicine
DX: R11.2 Nausea with vomiting, unspecified (principal); I48.0 Paroxysmal atrial fibrillation; N18.9 Chronic kidney disease, unspecified; E78.00 Pure hypercholesterolemia, unspecified; E78.5 Hyperlipidemia, unspecified; I12.9 Hypertensive chronic kidney disease with stage 1 through stage 4 chronic kidney disease, or unspecified chronic kidney disease; E87.6 Hypokalemia; Z90.710 Acquired absence of both cervix and uterus; E86.0 Dehydration; Z79.01 Long term (current) use of anticoagulants; G47.33 Obstructive sleep apnea (adult) (pediatric); Z99.89 Dependence on other enabling machines and devices; K21.9 Gastro-esophageal reflux disease without esophagitis; Z79.899 Other long term (current) drug therapy; F32.A Depression, unspecified; Z96.653 Presence of artificial knee joint, bilateral; Z98.49 Cataract extraction status, unspecified eye; Z90.49 Acquired absence of other specified parts of digestive tract
CPT/HCPCS: 71045; 74177; 80048; 80076; 81001; 83690; 85027; 93005; 96374; 96375; 99285; Q9967; A4216; J2405; J3490

== ENCOUNTER → 2024-07-25 | Outpatient (CLI) | payer MEDICARE, OTHER, SELFPAY ==
--- NOTE | 2024-07-25 13:28 | MRI_ITS ---
EXAM: MR ABDOMEN WITHOUT INTRAVENOUS CONTRAST, MRCP PROTOCOL CLINICAL INDICATION: CBD dilation on CT TECHNIQUE: Multiplanar and multisequence MR images of the abdomen without intravenous contrast obtained with MRCP sequence. Three-dimensional post-processing reconstructions were performed. COMPARISON: CT abdomen and pelvis 07/15/2024 FINDINGS: LOWER THORAX: Small hiatal hernia. No pleural effusion. LIVER: Normal. Normal morphology. GALLBLADDER AND BILE DUCTS: Stable distention of the biliary tree. Common bile duct measuring 18 mm in maximum diameter. No evidence of a common bile duct stone. No obstructing mass. Patient is status post cholecystectomy. PANCREAS: Normal. No focal cystic mass. No pancreatic duct dilation. SPLEEN: Normal. Non-enlarged. ADRENALS: Normal. No nodules. KIDNEYS AND URETERS: Normal. Normal renal size and position. No hydronephrosis. STOMACH AND BOWEL: Mild stool burden within the visualized large bowel. INTRAPERITONEAL SPACE: Normal. No ascites or other fluid collection. VASCULATURE: Normal. Abdominal aorta is non-dilated. LYMPH NODES: No enlarged lymph nodes. MRI/MRCP Abdomen without Contrast IMPRESSION: Stable common bile duct dilatation without evidence of an obstructing stone or mass. Electronically Signed: Noam Flynn MD at 15:22 EST ,
--- NOTE | 2024-07-25 14:46 | CT_ITS ---
EXAM: CT HEAD WITHOUT INTRAVENOUS CONTRAST CLINICAL INDICATION: BOBBY/FALLS TECHNIQUE: Multiple axial images were obtained of the head without intravenous contrast. This CT exam was performed using one or more of the following dose reduction techniques: automated exposure control, adjustment of the mA and/or kV according to patient size, and/or use of iterative reconstruction technique. COMPARISON: CT Head dated 04/22/2024 FINDINGS: BRAIN AND EXTRA-AXIAL SPACES: Normal. Normal brain attenuation. No intra- or extra-axial hemorrhage. No acute infarct. No intracranial mass or mass effect. There is preservation of the rodriguez/white matter interface. Posterior fossa structures are unremarkable. Prominence of the cortical sulci and ventricles related to volume loss change. Basal cisterns are patent. BONES/JOINTS: Normal calvarium. SINUSES: No acute sinusitis. MASTOID AIR CELLS: Normal. Clear. CT/Brain/Head without Contrast IMPRESSION: 1. No acute intracranial abnormality. 2. Stable senescent changes. Electronically Signed: Noam Flynn MD at 17:03 EST ,
== END | disposition home or self-care (01) ==
LOC: MRI 13:17
PROVIDERS: PCP Family Medicine Geriatric Medicine; Referring Provider Student in an Organized Health Care Education/Training Program; Visit Provider Psychiatry & Neurology Neurology
DX: G20.A2 Parkinson's disease without dyskinesia, with fluctuations (principal); G43.719 Chronic migraine without aura, intractable, without status migrainosus; G62.9 Polyneuropathy, unspecified; M54.50 Low back pain, unspecified; F43.9 Reaction to severe stress, unspecified; G47.33 Obstructive sleep apnea (adult) (pediatric); G89.29 Other chronic pain; R41.3 Other amnesia; R47.1 Dysarthria and anarthria
CPT/HCPCS: 70450; 74181

== ENCOUNTER → 2024-08-12 | Outpatient (CLI) | payer MEDICARE, OTHER, SELFPAY ==
[2024-08-12 11:06] LABS: Erythrocyte Sedimentation Rate 6 mm/hr (0-30)
[2024-08-12 11:07] LABS: CRP < 2.90 mg/L (0.0-3.0)
== END | disposition home or self-care (01) ==
LOC: LAB 10:12
PROVIDERS: PCP Family Medicine Geriatric Medicine; Referring Provider Psychiatry & Neurology Neurology; Visit Provider Psychiatry & Neurology Neurology
DX: G43.001 Migraine without aura, not intractable, with status migrainosus (principal)
CPT/HCPCS: 36415; 85652; 86140

== ENCOUNTER → 2024-12-05 | Outpatient (CLI) | payer MEDICARE, OTHER, SELFPAY ==
[2024-12-05 11:03] LABS: Absolute Lymphocyte Count 0.93 X10^3/uL (0.83-4.51); Absolute Neutrophil Count 2.6 X10^3/uL (2.0-7.7); Basophil# 0.03 X10^3/uL; Basophil% 0.7 % (0-1); Eosinophil# 0.15 X10^3/uL; Eosinophils% 3.6 % (0-5); Hematocrit 40.2 % (37-47); Hemoglobin 13.8 g/dL (12.0-15.0); Lymphocyte # 0.93 X10^3/ul (0.83-4.51); Lymphocyte % 22.4 % (19-41); Mean Corp Hgb Conc 34.3 g/dL (32-36); Mean Corpuscular Hgb 31.7 pg (27.0-32.0); Mean Corpuscular Volume 92.2 fL (81-99); Mean Platelet Vol. 10.3 fl (6.2-12.0); Monocyte# 0.41 X10^3/uL; Monocyte% 9.9 % (0-10); NRBC Flagged by Analyzer 0 % (0-5); Neutrophil # 2.62 X10^3/uL (2.7-7.7); Neutrophil % 63.2 % (47-70); Platelet Count 186 K/mm3 (150-450); RBC Distribution Width CV 12.9 % (11.6-14.6); RBC Distribution Width SD 43.8 fl (35.1-43.9); Red Blood Count 4.36 M/mm3 (4.2-5.4); White Blood Count 4.2 K/mm3 (4.4-11.0)
[2024-12-05 12:00] LABS: ALB/GLOB Ratio 1.4 RATIO (0.9-2.4); AST(SGOT) 21 U/L (<=31); Alanine Aminotransfer ALT/SGPT 11 U/L (<=34); Albumin, Serum 4.3 g/dL (3.4-4.8); Alkaline Phosphatase 71 U/L (35-104); Anion Gap 8 (5-15); BUN 18 mg/dL (4-19); BUN/Creat Ratio 22.1 RATIO (10-20); Calcium,Total 9.8 mg/dL (7.6-11.0); Carbon Dioxide 28.2 mmol/L (21.0-32.0); Chloride 103 mmol/L (98-108); EST Glomerular Filtration Rate 77 (>60); Glucose 102 mg/dL (70-99); Potassium 4.1 mmol/L (3.3-5.1); Protein, Total 7.3 g/dL (5.9-8.4); Sodium Level 140 mmol/L (133-145); Total Bilirubin 0.48 mg/dL (0.00-1.30); Vitamin D,25 Hydroxy 97.9 ng/mL (30-100)
== END | disposition home or self-care (01) ==
LOC: LAB 10:43
PROVIDERS: PCP Family Medicine Geriatric Medicine; Referring Provider Family Medicine Geriatric Medicine; Visit Provider Family Medicine Geriatric Medicine
DX: I10 Essential (primary) hypertension (principal); E55.9 Vitamin D deficiency, unspecified
CPT/HCPCS: 36415; 80053; 82306; 84443; 85025

== ENCOUNTER → 2024-12-29 | Outpatient (CLI) | payer MEDICARE, OTHER, SELFPAY ==
--- NOTE | 2024-12-29 09:35 | RAD_ITS ---
EXAM: XR Abdomen, 1 View CLINICAL INDICATION: CHRONIC NAUSEA TECHNIQUE: Frontal supine view of the abdomen/pelvis. COMPARISON: No relevant prior studies available. FINDINGS: GASTROINTESTINAL TRACT: Fecal retention in the colon consistent with constipation. No dilation. BONES/JOINTS: Total left hip replacement. No acute fracture. RAD/Abdomen Single View IMPRESSION: Fecal retention in the colon consistent with constipation. Reading [facility]
== END | disposition home or self-care (01) ==
PROVIDERS: PCP Family Medicine Geriatric Medicine
DX: K59.00 Constipation, unspecified (principal); R11.0 Nausea
CPT/HCPCS: 74018

== ENCOUNTER → 2025-01-22 | Outpatient (CLI) | payer MEDICARE, OTHER, SELFPAY ==
--- NOTE | 2025-01-22 11:01 | NM_ITS ---
PROCEDURE: GASTRIC EMPTYING STUDY 01/22/2025 REASON FOR EXAM: CHRONIC NAUSEA HISTORY OF CHOLECYSTECTOMY. PARKINSON'S. COMPARISON: NO RELEVANT PRIOR. TECHNIQUE: The patient ingested a standard meal of 1 cup of oatmeal with the radiopharmaceutical. Following ingestion, anterior and posterior gamma camera images were acquired at 60 second intervals for a total of 60 minutes. Regions of interest were drawn, and a geometric mean was used to calculate a [id number]-htiug. Medications taken in the past 24 hours that may affect gastric emptying: None Radiopharmaceutical: 1.1 mCi of Technetium Sulfur Colloid.. FINDINGS: Percent activity remaining in stomach: 1 hour 51 % (normal 37-90%) NM/Gastric Emptying Study IMPRESSION: Normal gastric emptying study. Reading Location: [facility]
== END | disposition home or self-care (01) ==
LOC: NM 11:00
PROVIDERS: PCP Family Medicine Geriatric Medicine
DX: K59.00 Constipation, unspecified (principal); R11.0 Nausea
CPT/HCPCS: 78264; A9541

== ENCOUNTER 2025-02-07 07:19 | Day surgery (SDC) | payer MEDICARE, OTHER, SELFPAY ==
--- NOTE | 2025-02-06 10:01 | PAT.ANESEVAL ---
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 When Was Last Pacemaker Check QUESTION #4 FULL TEXT: You/Your Family Experience fever (hyperthermia) with Anesthesia Last Oral Intake Last Oral intake: Last Oral Intake NPO since Meds taken in AM with sips of water? 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 Female Yes 02/06/25 09:44 HX of Motion Sickness No 02/06/25 09:44 HX of N/V After Surgery No 02/06/25 09:44 Non-Smoker Yes 02/06/25 09:44 Duration of Surgery greater No 02/06/25 09:44 than 60 minutes Number of Risk Factors 2 02/06/25 09:44 PONV Score Moderate Risk 02/06/25 09:44 Height & Weight Height & Weight: Anesthesia: Height & Weight Height 5 ft 2 in 07/15/24 17:11 Respiratory Assessment Respiratory Assessment - rig superintendent: Respiratory Tract Infection Hx - rig superintendent Hx Respiratory Tract Infection No 02/06/25 09:44 STOP Sleep Apnea STOP Sleep Apnea - rig superintendent: STOP Sleep Apnea - rig superintendent Hx Hypertension Yes 02/06/25 09:44 Hx Sleep Apnea Yes 02/06/25 09:44 CPAP Yes: HASN'T BEEN USING 02/06/25 09:44 LATELY BIPAP No 02/06/25 09:44 Do you snore loudly (louder than talking or can be heard Do you often feel tired/ fatigued/ sleepy during daytime? Has anyone observed you stop breathing during sleep? STOP Results Positive 02/06/25 09:44 QUESTION #5 FULL TEXT : Do you snore loudly (louder than talking or can be heard through closed doors)? 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 Specify any problems Hx of Preganancy in last 3 No 02/06/25 09:44 Months Nurse Filling Out Transfusion [facility] 02/06/25 09:44 & Questions: Date: 02/06/25 02/06/25 09:44 Time: 09:52 02/06/25 09:44 Patient unable to answer at this time (ie. confused, unrespo /Reproduction History /Reproductive History - rig superintendent: /Reproductive Hx- rig superintendent Hx Now No 02/06/25 09:44 Gestational Age (in weeks): EDC: Hx Hx Para Hx Section SAB No 06/28/24 09:43 [facility] Medical History (Updated 02/06/25 @ 09:52 by Cheryl Keys) Ambulates with cane Anemia Hoarseness Other specified disorders of bone density and structure, unspecified site Other primary thrombophilia Arthropathy, unspecified Acute embolism and thrombosis of other specified deep vein of unspecified lower extremity Anxiety disorder, unspecified Other hyperlipidemia Vitamin D deficiency Encounter for other procedures for purposes other than remedying health state Dysphonia Metabolic syndrome Fracture of unspecified part of neck of left femur, initial encounter for closed fracture Unspecified multiple injuries, initial encounter Thyroid nodule Sacroiliitis BMI 32.0-32.9,adult Melena Loss of hearing Low iron GERD (gastroesophageal reflux disease) Sleep apnea Hypertension Subcutaneous nodule Parkinson disease Generalized weakness Hypokalemia Factor V Leiden mutation Generalized weakness Chronic anticoagulation History of atrial fibrillation History of Parkinson's disease Fall Anxiety Concussion Essential hypertension Fall Presbycusis of both ears Osteopenia Malnourished Anemia Anterolisthesis Segmental and somatic dysfunction of thoracic region Vasovagal near syncope Insomnia Allergic rhinitis Migraine Hyperlipidemia Gastroesophageal reflux disease Hypertension Deep vein thrombosis Obstructive sleep apnea Depression Osteoarthritis Factor 5 Leiden mutation, heterozygous Open wound of left lower leg with complication Fall as cause of accidental injury at home as place of occurrence Wears hearing aid Wears glasses Depression Anxiety Open wound Walker as ambulation aid DVT (deep venous thrombosis) High cholesterol Injury of back Injury of head and neck Migraine headache Syncope Gastric reflux Non-smoker CPAP (continuous positive airway pressure) dependence History of pain when walking History of edema Hx of echocardiogram History of stress test Cardiology follow-up encounter History of atrial fibrillation Cellulitis of left lower leg Skin necrosis 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 lower leg with complication Hematoma of left lower extremity Vision problems Cataract Back pain Segmental and somatic dysfunction of pelvic region Segmental and somatic dysfunction of lumbar region Scoliosis of lumbar spine CKD (chronic kidney disease) History of DVT (deep vein thrombosis) VALENTIN (obstructive sleep apnea) Paroxysmal atrial fibrillation Long-term use of high-risk medication Family history of coronary artery disease Family history of CVA Family history of hypertension FDC use of drug Traumatic ulcer of left lower extremity Atrial fibrillation CKD (chronic kidney disease) Obesity, Class III, BMI 40-49.9 (morbid obesity) Hypertension Head injury without concussion or intracranial hemorrhage Fall due to ice or snow Home Medications ?Medication ?Instructions ?Recorded ?Last Taken ?Type galcanezumab-gnlm 120 mg/mL 120 mg subcut QMONTH Migraines 10/25/19 05/23/22 08:00 History subcutaneous syringe (Emgality) multivitamin 1 tab PO DAILY Supplement 04/26/20 05/27/22 History divalproex 500 mg tablet,extended 500 mg PO QHS headache 01/31/21 05/27/22 History release 24 hr (Depakote ER) ergocalciferol (vitamin D2) 1,250 1,250 mcg PO DAILY supplement 11/24/21 05/27/22 07:00 History mcg (50,000 unit) capsule apixaban 5 mg tablet 5 mg PO BID Blood thinner #60 tabs 06/12/22 02/04/25 Rx verapamil 120 mg 24 hr 240 mg PO DAILY 04/22/24 Unknown History capsule,extended release citalopram 20 mg tablet 30 mg PO DAILY 07/15/24 Unknown History omeprazole 40 mg capsule,delayed 40 mg PO QDAY #90 caps 12/12/24 Unknown Rx release polysaccharide iron complex 150 mg 150 mg PO QDAY 01/17/25 Unknown History iron capsule oiezpef-hwgzwoz-bbrzpjylpd capsule 1 cap PO DAILY 01/18/25 Unknown History (Guarana capsule) ondansetron HCl 4 mg tablet 4 mg PO Q8H PRN nausea and vomiting 01/18/25 Unknown History potassium chloride 20 mEq 20 meq PO DAILY #90 tabs 01/18/25 Unknown Rx tablet,extended release(part/cryst) rimegepant 75 mg disintegrating 75 mg PO ONCE PRN migraine headache 01/18/25 Unknown History tablet (Nurtec ODT) Allergy/AdvReac Type Severity Reaction Status Date / Time cefdinir Allergy Hives Verified 01/18/25 09:59 diphenhydramine HCl (From Allergy Hives Verified 01/18/25 09:59 Benadryl) Sulfa (Sulfonamide Allergy Hives Verified 01/18/25 09:59 Antibiotics) Family History Brother CAD (coronary artery disease) Mother CVA (cerebral vascular accident) CAD (coronary artery disease) Son Hypertension Daughter Hypertension Other Arthritis Cancer Diabetes Family history of CVA Family history of coronary artery disease Family history of hypertension Heart disease High cholesterol Kidney disease Thyroid disorder Surgical History History of left hip hemiarthroplasty History of incision and drainage Hx of cataract extraction History of total hysterectomy History of bilateral knee replacement History of cholecystectomy Social History household members: spouse housing: house number of children: 2 current occupational status: retired current occupational exposures/hazards: No pets and animals: No Smoking Status: Never smoker alcohol intake: never substance use type: does not use caffeine: Yes Type: tea what type of physical activity do you participate in: none seatbelt use: always do you feel safe at home: Yes additional social history: Does Not Take Aspirin Does Not Take Ibuprofen Audit: Pertinent Findings Pertinent Findings EKG Perinent findings: 07/15/2024. Normal sinus rhythm [address] and T wave abnormality. Consider inferior anterolateral ischemia. Stress test pertinent findings: 09/24/2020. EF 72% essentially negative. Echo (EF%) pertinent findings: 09/12/2022. EF 60%. Reason for study was CVA. Consult pertinent findings: Cardiology 01/18/2025. Preoperative cardiovascular exam. Clinical Trial Head states acceptable risk for proposed EGD. No further workup needed. Paroxysmal A-fib. Chronic stable. Hypertension chronic. Stable. Parkinson's chronic stable. Recommendation Anesthesia Recommendation Anesthesia recommendation: OPTIMIZED for anesthesia
[2025-02-07] VITALS (9 sets, daily range): BP systolic 75–131; BP diastolic 54–74; PULSE 59–78; RESP 14–16; TEMP 36.3–36.5; O2SAT 95–98; BMI 26.2
--- NOTE | 2025-02-07 07:40 | PRE.ANES_ITS ---
ASA Classification* ASA Classification ASA Classification: 3 Assessment & Plan Anesthesia* Anesthesia Assessment Anesthesia Assessment: Discussed sedation and/or anesthesia options, risks, benefits, and alternatives with patient/parents/legal guardian/POA. Questions invited. The patient/parents/legal guardian/POA seems to understand and agrees to proceed with anesthesia plan. Reviewed the physical assessment, medical history, allergy history and patient home medications list prior to surgery/procedure/anesthetic and documented any changes. Performed airway and anesthesia risk assessments. Anesthesia Type Anesthesia Type: MAC Anesthesia Focused Assessment* Airway Assessment Mouth opens: >3 cm Mallampati Score: II Focused Labs Anesthesia Preop lab: CBC WBC 4.2 K/mm3 (4.4-11.0) L 12/05/24 10:47 12/05/24 RBC 4.36 M/mm3 (4.2-5.4) 12/05/24 10:47 12/05/24 Hgb 13.8 g/dL (12.0-15.0) 12/05/24 10:47 12/05/24 Hct 40.2 % (37-47) 12/05/24 10:47 12/05/24 Plt Count 186 K/mm3 (150-450) 12/05/24 10:47 12/05/24 CHEMISTRY Potassium 4.1 mmol/L (3.3-5.1) 12/05/24 10:47 12/05/24 Sodium 140 mmol/L (133-145) 12/05/24 10:47 12/05/24 Magnesium 2.2 mg/dL (1.6-2.6) 04/25/24 11:39 04/25/24 Phosphorus 2.9 mg/dL (2.5-4.9) 04/25/24 11:39 04/25/24 BUN 18 mg/dL (4-19) 12/05/24 10:47 12/05/24 Creatinine 0.80 mg/dL (0.70-1.20) 12/05/24 10:47 12/05/24 Glucose 102 mg/dL (70-99) H 12/05/24 10:47 12/05/24 POC Glucose 88 mg/dL (74-106) 09/12/22 19:21 09/12/22 TSH 1.290 uIU/mL (0.300-4.200) 12/05/24 10:47 /05/14 COAG PT 17.0 SECONDS (11.7-14.9) H 04/22/24 23:50 08/12/11 Pre-Assessment Diagnosis/Proposed Procedure Planned Operative Procedure(s): EGD Anesthesia History 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 When Was Last Pacemaker Check QUESTION #4 FULL TEXT: You/Your Family Experience fever (hyperthermia) with Anesthesia Last Oral Intake Last Oral intake: Last Oral Intake NPO since Meds taken in AM with sips of water? 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 Has anyone observed you stop breathing during sleep? STOP Results Positive 02/06/25 09:44 QUESTION #5 FULL TEXT : Do you snore loudly (louder than talking or can be heard through closed doors)? 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 Specify any problems Hx of Preganancy in last 3 No 02/06/25 09:44 Months Nurse Filling Out Transfusion VLEHWINDFALL 02/06/25 09:44 & Questions: Date: 02/06/25 02/06/25 09:44 Time: 09:52 02/06/25 09:44 Patient unable to answer at this time (ie. 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: /Reproductive Hx- hydroelectric plant structural engineer Hx Now No 02/06/25 09:44 Gestational Age (in weeks): EDC: Hx Hx Para Hx Section SAB No 06/28/24 09:43 Active Medications Active Medications: Current Medications Generic Name Dose Route Start Last Admin Trade Name Freq PRN Reason Stop Dose Admin Lactated Ringer's 1,000 mls @ 15 mls/hr 02/07/25 07:30 IV .Q48H BARRETT PFSH Medical History Ambulates with cane Anemia Hoarseness Other specified disorders of bone density and structure, unspecified site Other primary thrombophilia Arthropathy, unspecified Acute embolism and thrombosis of other specified deep vein of unspecified lower extremity Anxiety disorder, unspecified Other hyperlipidemia Vitamin D deficiency Encounter for other procedures for purposes other than remedying health state Dysphonia Metabolic syndrome Fracture of unspecified part of neck of left femur, initial encounter for closed fracture Unspecified multiple injuries, initial encounter Thyroid nodule Sacroiliitis BMI 32.0-32.9,adult Melena Loss of hearing Low iron GERD (gastroesophageal reflux disease) Sleep apnea Hypertension Subcutaneous nodule Parkinson disease Generalized weakness Hypokalemia Factor V Leiden mutation Generalized weakness Chronic anticoagulation History of atrial fibrillation History of Parkinson's disease Fall Anxiety Concussion Essential hypertension Fall Presbycusis of both ears Osteopenia Malnourished Anemia Anterolisthesis Segmental and somatic dysfunction of thoracic region Vasovagal near syncope Insomnia Allergic rhinitis Migraine Hyperlipidemia Gastroesophageal reflux disease Hypertension Deep vein thrombosis Obstructive sleep apnea Depression Osteoarthritis Factor 5 Leiden mutation, heterozygous Open wound of left lower leg with complication Fall as cause of accidental injury at home as place of occurrence Wears hearing aid Wears glasses Depression Anxiety Open wound Walker as ambulation aid DVT (deep venous thrombosis) High cholesterol Injury of back Injury of head and neck Migraine headache Syncope Gastric reflux Non-smoker CPAP (continuous positive airway pressure) dependence History of pain when walking History of edema Hx of echocardiogram History of stress test Cardiology follow-up encounter History of atrial fibrillation Cellulitis of left lower leg Skin necrosis 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 lower leg with complication Hematoma of left lower extremity Vision problems Cataract Back pain Segmental and somatic dysfunction of pelvic region Segmental and somatic dysfunction of lumbar region Scoliosis of lumbar spine CKD (chronic kidney disease) History of DVT (deep vein thrombosis) VALENTIN (obstructive sleep apnea) Paroxysmal atrial fibrillation Long-term use of high-risk medication Family history of coronary artery disease Family history of CVA Family history of hypertension director long term care use of drug Traumatic ulcer of left lower extremity Atrial fibrillation CKD (chronic kidney disease) Obesity, Class III, BMI 40-49.9 (morbid obesity) Hypertension Head injury without concussion or intracranial hemorrhage Fall due to ice or snow Home Medications ?Medication ?Instructions ?Recorded ?Last Taken ?Type galcanezumab-gnlm 120 mg/mL 120 mg subcut QMONTH Migra jacque 10/25/19 05/23/22 08:00 History subcutaneous syringe (Emgality) multivitamin 1 tab PO DAILY Supplement 05/27/22 History divalproex 500 mg tablet,extended 500 mg PO QHS headac he 01/31/21 05/27/22 History release 24 hr (Depakote ER) ergocalciferol (vitamin D2) 1,250 1,250 mcg PO DAILY s upplement 11/24/21 05/27/22 07:00 History mcg (50,000 unit) capsule apixaban 5 mg tablet 5 mg PO BID Blood thinner #6 0 tabs 06/12/22 02/04/25 Rx verapamil 120 mg 24 hr 240 mg PO DAILY 04/22/24 Unk nown History capsule,extended release citalopram 20 mg tablet 30 mg PO DAILY 07/15/24 Unkn own History omeprazole 40 mg capsule,delayed 40 mg PO QDAY #90 cap s 12/12/24 Unknown Rx release polysaccharide iron complex 150 mg 150 mg PO QDAY 12/21 Unknown History iron capsule xvfmnvp-mpwuuhf-yrfakfasie capsule 1 cap PO DAILY 10/14 Unknown History (Guarana capsule) ondansetron HCl 4 mg tablet 4 mg PO Q8H PRN nausea and vomiting 01/18/25 Unknown History potassium chloride 20 mEq 20 meq PO DAILY #90 tabs 10/14 Unknown Rx tablet,extended release(part/cryst) rimegepant 75 mg disintegrating 75 mg PO ONCE PRN migr laine headache 01/18/25 Unknown History tablet (Nurtec ODT) Allergy/AdvReac Type Severity Reaction Status Date / Time cefdinir Allergy Hives Verified 01/18/25 09:59 diphenhydramine HCl (From Allergy Hives Verified 01/18/25 09:59 Benadryl) Sulfa (Sulfonamide Allergy Hives Verified 01/18/25 09:59 Antibiotics) Family History Brother CAD (coronary artery disease) Mother CVA (cerebral vascular accident) CAD (coronary artery disease) Son Hypertension Daughter Hypertension Other Arthritis Cancer Diabetes Family history of CVA Family history of coronary artery disease Family history of hypertension Heart disease High cholesterol Kidney disease Thyroid disorder Surgical History History of left hip hemiarthroplasty History of incision and drainage Hx of cataract extraction History of total hysterectomy History of bilateral knee replacement History of cholecystectomy Social History household members: spouse housing: house number of children: 2 current occupational status: retired current occupational exposures/hazards: No pets and animals: No Smoking Status: Never smoker alcohol intake: never substance use type: does not use caffeine: Yes Type: tea what type of physical activity do you participate in: none seatbelt use: always do you feel safe at home: Yes additional social history: Does Not Take Aspirin Does Not Take Ibuprofen Review of Systems (Anesthesia) ROS Narrative System reviewed and no additional complaints, except as documented.
[2025-02-07] MEDS: Lactated Ringers 1,000 ML 15 ML IV (08:01)
--- NOTE | 2025-02-07 08:20 | HP.PCM_ITS ---
HPI - General General Date of Admission: 02/07/25 Date of Service: 02/07/25 Chief Complaint: Nausea HPI Narrative DIONTE BRADFORD, is a 74 F who presents with the Chief Complaint: nausea. [facility]GI established 9.6.24 after incidental findings of CBD dilation s/p cholecystectomy. Also with constipation alternating with diarrhea. Hx of Parkinson on Carbipoda-levodopa. CT abdomen pelvis; 04.19.24 Status post cholecystectomy. Intrahepatic biliary ductal dilatation as well as the common bile duct. Correlation with ERCP is recommended. Sigmoid diverticulosis. Moderate sized ventral hernia containing fat. MRCP 11.24; Stable common bile duct dilatation without evidence of an obstructing stone or mass. Last OV 12..24 Doing well with constipation. Controlled with mineral oil in the evening. Was taken off Carbidopa-levodopa. Struggling now with new daily migraines and nausea. Taking PPI and Zofran PRN. PPI increased to twice a day. Increased zofran to 8 mg. OV 3.7.25; Pt continues to have nausea daily but no vomiting. She is taking zof ran just one time per week because she is nervous she will run out. She continues to have migraines daily which may be the cause of her nausea. She has an upcoming appointment with neurology in December 2024. She continues with Omeprazole 40 mg daily and zofran PRN. Her constipation is well controlled with mineral oil. [facility], [facility] Medical History Ambulates with cane Anemia Hoarseness Other specified disorders of bone density and structure, unspecified site Other primary thrombophilia Arthropathy, unspecified Acute embolism and thrombosis of other specified deep vein of unspecified lower extremity Anxiety disorder, unspecified Other hyperlipidemia Vitamin D deficiency Encounter for other procedures for purposes other than remedying health state Dysphonia Metabolic syndrome Fracture of unspecified part of neck of left femur, initial encounter for closed fracture Unspecified multiple injuries, initial encounter Thyroid nodule Sacroiliitis BMI 32.0-32.9,adult Melena Loss of hearing Low iron GERD (gastroesophageal reflux disease) Sleep apnea Hypertension Subcutaneous nodule Parkinson disease Generalized weakness Hypokalemia Factor V Leiden mutation Generalized weakness Chronic anticoagulation History of atrial fibrillation History of Parkinson's disease Fall Anxiety Concussion Essential hypertension Fall Presbycusis of both ears Osteopenia Malnourished Anemia Anterolisthesis Segmental and somatic dysfunction of thoracic region Vasovagal near syncope Insomnia Allergic rhinitis Migraine Hyperlipidemia Gastroesophageal reflux disease Hypertension Deep vein thrombosis Obstructive sleep apnea Depression Osteoarthritis Factor 5 Leiden mutation, heterozygous Open wound of left lower leg with complication Fall as cause of accidental injury at home as place of occurrence Wears hearing aid Wears glasses Depression Anxiety Open wound Walker as ambulation aid DVT (deep venous thrombosis) High cholesterol Injury of back Injury of head and neck Migraine headache Syncope Gastric reflux Non-smoker CPAP (continuous positive airway pressure) dependence History of pain when walking History of edema Hx of echocardiogram History of stress test Cardiology follow-up encounter History of atrial fibrillation Cellulitis of left lower leg Skin necrosis 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 lower leg with complication Hematoma of left lower extremity Vision problems Cataract Back pain Segmental and somatic dysfunction of pelvic region Segmental and somatic dysfunction of lumbar region Scoliosis of lumbar spine CKD (chronic kidney disease) History of DVT (deep vein thrombosis) VALENTIN (obstructive sleep apnea) Paroxysmal atrial fibrillation Long-term use of high-risk medication Family history of coronary artery disease Family history of CVA 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 Traumatic ulcer of left lower extremity Atrial fibrillation CKD (chronic kidney disease) Obesity, Class III, BMI 40-49.9 (morbid obesity) Hypertension Head injury without concussion or intracranial hemorrhage Fall due to ice or snow Home Medications ?Medication ?Instructions ?Recorded ?Last Taken ?Type galcanezumab-gnlm 120 mg/mL 120 mg subcut QMONTH Migra jacque 10/25/19 05/23/22 08:00 History subcutaneous syringe (Emgality) multivitamin 1 tab PO DAILY Supplement 05/27/22 History divalproex 500 mg tablet,extended 500 mg PO QHS headac he 01/31/21 05/27/22 History release 24 hr (Depakote ER) ergocalciferol (vitamin D2) 1,250 1,250 mcg PO DAILY s upplement 11/24/21 05/27/22 07:00 History mcg (50,000 unit) capsule apixaban 5 mg tablet 5 mg PO BID Blood thinner #6 0 tabs 06/12/22 02/04/25 Rx verapamil 120 mg 24 hr 240 mg PO DAILY 04/22/24 History capsule,extended release citalopram 20 mg tablet 30 mg PO DAILY 07/15/24 Unkn own History omeprazole 40 mg capsule,delayed 40 mg PO QDAY #90 cap s 12/12/24 02/07/25 Rx release polysaccharide iron complex 150 mg 150 mg PO QDAY 12/21 Unknown History iron capsule rjtdkmn-ttjeuil-jvaxlbcosg capsule 1 cap PO DAILY 10/14 Unknown History (Guarana capsule) ondansetron HCl 4 mg tablet 4 mg PO Q8H PRN nausea and vomiting 01/18/25 Unknown History potassium chloride 20 mEq 20 meq PO DAILY #90 tabs 10/14 Unknown Rx tablet,extended release(part/cryst) rimegepant 75 mg disintegrating 75 mg PO ONCE PRN migr laine headache 01/18/25 Unknown History tablet (Nurtec ODT) oxycleanse 1 cap PO 1XD 02/07/25 History sennosides 8.6 mg-docusate sodium 1 tab-cap PO DAILY 0 02/07/25 Unknown History 50 mg tablet (2-in-1 Laxative) Allergy/AdvReac Type Severity Reaction Status Date / Time cefdinir Allergy Hives Verified 01/18/25 09:59 diphenhydramine HCl (From Allergy Hives Verified 01/18/25 09:59 Benadryl) Sulfa (Sulfonamide Allergy Hives Verified 01/18/25 09:59 Antibiotics) Family History Brother CAD (coronary artery disease) Mother CVA (cerebral vascular accident) CAD (coronary artery disease) Son Hypertension Daughter Hypertension Other Arthritis Cancer Diabetes Family history of CVA Family history of coronary artery disease Family history of hypertension Heart disease High cholesterol Kidney disease Thyroid disorder Surgical History History of left hip hemiarthroplasty History of incision and drainage Hx of cataract extraction History of total hysterectomy History of bilateral knee replacement History of cholecystectomy Social History household members: spouse housing: house number of children: 2 current occupational status: retired current occupational exposures/hazards: No pets and animals: No Smoking Status: Never smoker alcohol intake: never substance use type: does not use caffeine: Yes Type: tea what type of physical activity do you participate in: none seatbelt use: always do you feel safe at home: Yes additional social history: Does Not Take Aspirin Does Not Take Ibuprofen ROS Constitutional Constitutional: Denies fatigue, fever(s), poor appetite, weight gain or weight loss Gastrointestinal Gastrointestinal: Denies belching, bloating, change in bowel habits, change in stool character, chewing difficulty, coffee ground emesis, constipation, cramping, diarrhea, dyspepsia, dysphagia, early satiety, excessive flatus, fecal incontinence, heartburn, hematemesis, hematochezia, hemorrhoids, loose stools, melena, nausea, odynophagia, rectal bleeding, tenesmus, vomiting or weight changes Vital Signs Vital Signs Vital Signs: 02/07/25 07:57 02/07/25 07:59 Temperature 97.4 F L Temperature Source Temporal Pulse Rate 73 Respiratory Rate 16 Respiratory Pattern Normal Blood Pressure 131/74 H Blood Pressure Mean 93 Blood Pressure Source Monitor Blood Pressure Position Semi-Fowlers Blood Pressure Location Right Arm Pulse Ox 98 Oxygen Delivery Method Room Air Weight Weight: 143 lb 4.807 oz Body Mass Index (BMI) 26.2 Physical Exam Const alert, oriented x3, no apparent distress and healthy appearing General Appearance: cooperative GI normal to inspection, nondistended, normoactive bowel sounds, soft to palpation, non-tender and non-distended Percussion: normal to percussion Rectal Exam: deferred Assessment & Plan Assessment/Plan (1) Nausea: (2) Common bile duct dilation: (3) Heme + stool: (4) Iron deficiency anemia due to chronic blood loss: PLAN: Assessment and Plan Assessment and Plan (1) Nausea: Status: Acute Plan: This is a 74 yo female pt established with [facility] for CBD dilation. Work up with MRCP was normal. She has a hx of constipation which is controlled with mineral oil at this time. She will continue this. She has had daily nausea over the past year as well as increase is her migraines. SHe feels the nausea may be related. She has not undergone EGD to rule out gastric etiology of nausea. She will be scheduled for this today. I increased her omeprazole to 40 mg BID and prescribed promethazine PRN. -EGD -Contoinue PPI -Promethazine PRN -f/u as needed (2) Common bile duct dilation: Status: Acute (3) Constipation: Status: Acute Medications: Refilled promethazine 12.5 mg PO TID PRN 30 tabs 1RF nausea and vomiting
--- NOTE | 2025-02-07 08:30 | EGD_PTH ---
PATIENT: DIONTE BRADFORD LOC: EN U#:[id number] AGE/SX: 74/F ROOM: RE02/07/[address]: Dr. Alexander Bailey DO : 1950 BED: DIS: 02/07/2025 SPEC #: [id number] RECD: 02/07/25 11:59 STATUS: AIDE REQ #: [id number] NASRIN: 02/07/25 08:[address]: Alexander Bailey DEPT: SURGICAL PATHOLOGY RECD BY: Maged Toscano ENTERED: 02/07/25 13:17 SP TYPE: EGD BIOPSY CRISTELA DR: Dr. Desmond Riojas MD Tissues: A - Gastric mucous membrane B - Duodenum, NOS Procedures: Immunohistochemical Stains Surgery Specimen Level IV HEADER OPERATION: EGD with biopsy PRE-OP DIAGNOSIS: Nausea, common bile duct dilation, heme + stool, iron deficiency anemia due to chronic blood loss TISSUE SUBMITTED: A- Gastric body biopsy, B- Duodenum biopsy MICROSCOPIC DIAGNOSIS A. Stomach, body, biopsy: * Oxyntic mucosa with chronic inflammation. * IHC negative for H pylori organisms. B. Small bowel, duodenum, biopsy: * Normal villous architecture with slightly increased intraepithelial lymphocytes - see note. * Note: This pattern of injury is etiologically nonspecific?and the differential diagnosis includes sensitivity to gluten and non-gluten proteins, small intestinal bacterial overgrowth, stasis related changes, infection, protein calorie malnutrition, tropical sprue, and medication injury (NSAIDs, Olmesartan / Benicar, Mycophenolic acid, Idelalisib, for example). If celiac disease is a clinical concern, additional clinical studies, such as tTG-IgA, are recommended. MICROSCOPIC DESCRIPTION Slides are reviewed. All matched controls reacted appropriately. These tests were developed and their performance characteristics determined by [facility]. They may not have been cleared or approved by the U.S. Food and Drug Administration. The FDA has determined that such clearance or approval is not necessary. The above immunohistochemical/dualISH markers are ordered and reviewed by the Pathologist. GROSS DESCRIPTION A. Received in formalin in a container labeled with the patient's name, date of , and gastric body biopsy for H. pylori and path are 2 allred-pink fragments of mucosal tissue measuring 0.4 x 0.2 x 0.2 cm and 0.5 x 0.3 x 0.2 cm. Submitted in toto in A1. B. Received in formalin in a container labeled with the patient's name, date of , and duodenum biopsy are 2 allred-pink fragments of mucosal tissue each measuring 0.5 x 0.3 x 0.2 cm. Submitted in toto in B1. [facility] 02-07-2025 CPT:[id number]
--- NOTE | 2025-02-07 09:16 | OP.CCLET_ITS ---
02/07/2025 Desmond Riojas MD [address] [place] [address] Re : Upper GI endoscopy procedure for Viola Yoisaiahluciano Dear Dr. Riojas This procedure was performed on Friday, February 07, 2025. My impressions and recommendations are as follows: Impressions : - Normal esophagus. - Multiple gastric polyps. - Erythematous mucosa in the gastric body. Biopsied. - Erythematous duodenopathy. Biopsied. Recommendations : - Discharge patient to home. - Resume previous diet. - Continue present medications. - Await pathology results. My findings are described in the full procedure note, which is enclosed. If I can be of further assistance, please feel free to contact me at . Sincerely, Alexander Bailey, 02/07/2025 9:16:25 AM This report has been signed electronically.
--- NOTE | 2025-02-07 09:16 | OP.EGD_ITS ---
Patient Name: Viola Bennett Procedure Date: 02/07/2025 8:52 AM Date of : 1950 Age: 74 Procedure: Upper GI endoscopy Indications: Epigastric abdominal pain, Functional Dyspepsia Providers: Alexander Bailey DO Referring MD: Desmond Riojas MD Medicines: Monitored Anesthesia Care Patient Profile: This is a 74 year old female. Refer to note in patient chart for documentation of history and physical. Patient has symptoms of chronic epigastric abdominal pain and chronic nausea. Complications: No immediate complications. Procedure: Pre-Anesthesia Assessment: - Prior to the procedure, a History and Physical was performed, and patient medications and allergies were reviewed. The patient is competent. The risks and benefits of the procedure and the sedation options and risks were discussed with the patient. All questions were answered and informed consent was obtained. Patient identification and proposed procedure were verified by the physician in the pre-procedure area. Mental Status Examination: alert and oriented. Airway Examination: normal oropharyngeal airway and neck mobility. Respiratory Examination: clear to auscultation. CV Examination: normal. Prophylactic Antibiotics: The patient does not require prophylactic antibiotics. Prior Anticoagulants: The patient has taken no anticoagulant or antiplatelet agents except for NSAID medication. ASA Grade Assessment: II - A patient with mild systemic disease. After reviewing the risks and benefits, the patient was deemed in satisfactory condition to undergo the procedure. The anesthesia plan was to use monitored anesthesia care (MAC). Immediately prior to administration of medications, the patient was re-assessed for adequacy to receive sedatives. The heart rate, respiratory rate, oxygen saturations, blood pressure, adequacy of pulmonary ventilation, and response to care were monitored throughout the procedure. The physical status of the patient was re-assessed after the procedure. After obtaining informed consent, the endoscope was passed under direct vision. Throughout the procedure, the patient's blood pressure, pulse, and oxygen saturations were monitored continuously. The gastroscope was introduced through the mouth, and advanced to the third part of the duodenum. Small bowel enteroscopy was deemed necessary. The upper GI endoscopy was accomplished without difficulty. The patient tolerated the procedure well. Scope In: 9:08:02 AM Scope Out: 9:12:12 AM Total Procedure Duration Time 0 hours 4 minutes 10 seconds Findings: The examined esophagus was normal. Multiple 5 mm hyperplastic polyps with no bleeding and no stigmata of recent bleeding were found in the entire examined stomach. Patchy mildly erythematous mucosa without bleeding was found in the gastric body. Biopsies were taken with a cold forceps for histology. Verification of patient identification for the specimen was done. Estimated blood loss was minimal. Biopsies were taken with a cold forceps for Helicobacter pylori testing. Verification of patient identification for the specimen was done. Estimated blood loss was minimal. Patchy mildly erythematous mucosa without active bleeding and with no stigmata of bleeding was found in the duodenal bulb and in the second portion of the duodenum. Biopsies were taken with a cold forceps for histology. Verification of patient identification for the specimen was done. Estimated blood loss was minimal. Impression: - Normal esophagus. - Multiple gastric polyps. - Erythematous mucosa in the gastric body. Biopsied. - Erythematous duodenopathy. Biopsied. Recommendation: - Discharge patient to home. - Resume previous diet. - Continue present medications. - Await pathology results. Procedure Code(s): --- Professional --- 10004, Small intestinal endoscopy, enteroscopy beyond second portion of duodenum, not including ileum; with biopsy, single or multiple CPT copyright 2021 [employer]. All rights reserved. The codes documented in this report are preliminary and upon supervisor sunglasses review may be revised to meet current compliance requirements. Alexander Bailey DO 02/07/2025 9:16:25 AM This report has been signed electronically. Number of Addenda: 0 Note Initiated On: 02/07/2025 8:52 AM
--- NOTE | 2025-02-07 09:22 | PCM.POST.ANE ---
Anesthesia: Postop Eval I Current Vital Signs Temperature: 97.4 F Pulse Rate: 78 Blood Pressure: 75/54 Respiratory Rate: 14 Pulse Ox: 98 Oxygen Delivery Method: Room Air Assessment Airway patent: Yes Spontaneous unlabored respirations: Yes Mental status: Awake and Calm nausea: No Vomiting: No Anesthesia Complication: No Fluid Hydration Crystalloid volume administer (ml): 300 Total IV fluid infused: 300 Progress Note Anesthesia document: Postop Eval 1 completed: Yes
--- NOTE | 2025-02-07 09:39 | PCM.POSTANE2 ---
Anesthesia Postop Eval I Sum Postop Eval Completion status Anesthesia document: Postop Eval 1 completed: Yes Anesthesia Postop Eval I Summary Anesthesia Postop Eval I Summary: Anesthesia Postop Eval I: Assessment Summary Airway patent Yes 02/07/25 09:22 [email or web address] Spontaneous unlabored Yes 02/07/25 09:22 [email or web address] respirations Mental status Awake,Calm 02/07/25 09:22 [email or web address] nausea No 02/07/25 09:22 [email or web address] Vomiting No 02/07/25 09:22 [email or web address] Anesthesia Postop Eval I: Fluid Summary Crystalloid volume administer 300 02/07/25 09:22 [email or web address] (ml) Colloids volume administered ( ml) Blood Product volume administered (ml) Total IV fluid infused 300 02/07/25 09:22 [email or web address] Anesthesia Postop Eval I: Summary Notes Anesthesia Complication No 02/07/25 09:22 [email or web address] Anesthesia Complication Comment: Post-operative progress note Anesthesia: Postop Eval II Evaluation Mental status: Awake Pain Level: 0 nausea: No Vomiting: No
== END 2025-02-07 10:15 | disposition home or self-care (01) ==
LOC: EN 07:19 → AC 07:21
PROVIDERS: PCP Family Medicine Geriatric Medicine; Referring Provider Family Medicine Geriatric Medicine; Visit Provider Internal Medicine Gastroenterology
PROC: 0DJ08ZZ Inspection of Upper Intestinal Tract, Via Natural or Artificial Opening Endoscopic (ICD-10-PCS; CPT 43235; principal; 2025-02-07 08:25)
DX: R11.0 Nausea (principal); G20.A1 Parkinson's disease without dyskinesia, without mention of fluctuations; I48.0 Paroxysmal atrial fibrillation; D50.0 Iron deficiency anemia secondary to blood loss (chronic); K31.7 Polyp of stomach and duodenum; I12.9 Hypertensive chronic kidney disease with stage 1 through stage 4 chronic kidney disease, or unspecified chronic kidney disease; Z90.710 Acquired absence of both cervix and uterus; K83.8 Other specified diseases of biliary tract; E78.00 Pure hypercholesterolemia, unspecified; Z79.01 Long term (current) use of anticoagulants; N18.9 Chronic kidney disease, unspecified; K59.00 Constipation, unspecified; Z90.49 Acquired absence of other specified parts of digestive tract; K21.9 Gastro-esophageal reflux disease without esophagitis; Z79.899 Other long term (current) drug therapy; G47.33 Obstructive sleep apnea (adult) (pediatric); Z99.89 Dependence on other enabling machines and devices; F32.A Depression, unspecified; G43.909 Migraine, unspecified, not intractable, without status migrainosus; Z96.653 Presence of artificial knee joint, bilateral; Z98.49 Cataract extraction status, unspecified eye; K31.89 Other diseases of stomach and duodenum; K29.50 Unspecified chronic gastritis without bleeding
CPT/HCPCS: 43239; 88305; 88342; J2405

== ENCOUNTER → 2025-02-20 | Outpatient (CLI) | payer MEDICARE, OTHER, SELFPAY ==
--- NOTE | 2025-02-20 09:38 | ECHOD_ITS ---
Reason For Study Reason For Study: Preop Procedure This was a 2D Doppler, Color Flow transthoracic echocardiogram. Exam performed in department. Left Ventricle Normal size and thickness. Mild apical hypokinesis. Estimated LVEF 55%. Stage I diastolic dysfunction. Right Ventricle Normal right ventricle. A moderator band is seen in the right ventricle. Atria The left and right atria are normal. Mitral Valve Mild (1+) mitral valve insufficiency. Tricuspid Valve Mild tricuspid valve insufficiency. Normal pulmonary artery pressure. Aortic Valve Trisinus/trileaflet aortic valve. Pulmonic Valve The pulmonic valve is not well visualized. Trivial pulmonic valve insufficiency. Great Vessels Normal sized aortic root. Pericardium/Pleural No pericardial effusion. MMode/2D Measurements & Calculations LVIDd: 4.6 cm IVSd: 1.0 cm Ao root diam: 3.0 cm LVIDs: 2.6 cm LVPWd: 0.72 cm LA dimension: 3.8 cm RVDd: 3.0 cm FS: 43.9 % LAV(MOD-bp): 39.8 ml LVAd ap4: 20.9 cm2 SV(MOD-sp4): 35.5 ml LAV(MOD-bp) Indexed: 23.9 ml/m2 LVLd ap4: 6.3 cm SI(MOD-sp4): 21.4 ml/m2 LAV(MOD-sp2): 52.7 ml EDV(MOD-sp4): 55.8 ml LAV(MOD-sp4): 28.4 ml EDV(sp4-el): 58.6 ml LVAs ap4: 11.0 cm2 LVLs ap4: 5.1 cm ESV(MOD-sp4): 20.3 ml ESV(sp4-el): 20.0 ml EF(MOD-sp4): 63.6 % EF(sp4-el): 65.8 % SV(sp4-el): 38.5 ml LA A4 area: 12.9 cm2 LA dimension(2D): 3.4 cm RA A4 area: 11.6 cm2 TAPSE: 2.0 cm Time Measurements MV dec time: 0.20 sec Doppler Measurements & Calculations MV E max dg: 39.9 cm/sec Lat Peak E' Dg: 9.7 cm/sec Med Peak E' Dg: 6.0 cm/sec MV A max dg: 73.2 cm/sec E/E' lat: 4.1 E/E' med: 6.7 MV E/A: 0.54 Ao V2 max: 110.1 cm/sec LV V1 max: 94.1 cm/sec MV dec slope: 197.0 cm/sec2 Ao max P.8 mmHg LV V1 max P.5 mmHg Ao V2 mean: 72.6 cm/sec LV V1 mean P.7 mmHg Ao mean P.5 mmHg LV V1 mean: 60.9 cm/sec Ao V2 VTI: 20.7 cm LV V1 VTI: 20.7 cm AV (velocity ratio): 1.0 PA V2 max: 90.4 cm/sec TR max dg: 231.9 cm/sec TR max P.5 mmHg ECHO/Echo Complete Interpretation Summary Mild apical hypokinesis. Estimated LVEF 55%. Stage I diastolic dysfunction. Mild (1+) mitral valve insufficiency. Mild tricuspid valve insufficiency. Ordering Physician: Marlin Onofre Referring Physician: Desmond Riojas Chi Performed By: Tahira Lyons RDCS, RVT
== END | disposition home or self-care (01) ==
LOC: CVS 09:38
PROVIDERS: PCP Family Medicine Geriatric Medicine; Referring Provider Internal Medicine Cardiovascular Disease; Visit Provider Internal Medicine Cardiovascular Disease
DX: I48.0 Paroxysmal atrial fibrillation (principal)
CPT/HCPCS: 93306

== ENCOUNTER → 2025-06-07 | Outpatient (CLI) | payer MEDICARE, OTHER, SELFPAY ==
[2025-06-07 10:10] LABS: Hematocrit 39.3 % (37-47); Hemoglobin 13.3 g/dL (12.0-15.0); Immature Granulocytes Count 0.010 X10^3/uL (0.0-0.0); Mean Corp Hgb Conc 33.8 g/dL (32-36); Mean Corpuscular Volume 94.9 fL (81-99); Mean Platelet Vol. 10.5 fl (6.2-12.0); NRBC Flagged by Analyzer 0 % (0-5); Platelet Count 163 K/mm3 (150-450); RBC Distribution Width CV 12.7 % (11.6-14.6); RBC Distribution Width SD 44.4 fl (35.1-43.9); Red Blood Count 4.14 M/mm3 (4.2-5.4); White Blood Count 3.7 K/mm3 (4.4-11.0)
[2025-06-07 11:20] LABS: AST(SGOT) 21 U/L (<=31); Alanine Aminotransfer ALT/SGPT 13 U/L (<=34); Albumin, Serum 4.2 g/dL (3.4-4.8); Alkaline Phosphatase 71 U/L (35-104); Anion Gap 11 (5-15); BUN 18 mg/dL (4-19); BUN/Creat Ratio 23.6 RATIO (10-20); Calcium,Total 9.4 mg/dL (7.6-11.0); Carbon Dioxide 27.3 mmol/L (21.0-32.0); Chloride 104 mmol/L (98-108); Globulin 2.6 g/dL (2.2-4.2); Glucose 83 mg/dL (70-99); Potassium 4.2 mmol/L (3.3-5.1); Vitamin D,25 Hydroxy 76.1 ng/mL (30-100)
[2025-06-07 17:51] LABS: Xtra Tube Kwok EXTRA TUBE
== END | disposition home or self-care (01) ==
LOC: POLAB3 09:50
PROVIDERS: PCP Family Medicine Geriatric Medicine; Visit Provider Family Medicine Geriatric Medicine
DX: I10 Essential (primary) hypertension (principal); E55.9 Vitamin D deficiency, unspecified
CPT/HCPCS: 36415; 80053; 82306; 84443; 85025

== ENCOUNTER 2025-08-10 10:30 | Outpatient (RCR) | payer MEDICARE, OTHER, SELFPAY ==
--- NOTE | 2025-05-09 13:34 | HP.PTEVAL_ITS ---
Patient's Visit Information Visit Information Visit Information: DIONTE BRADFORD is a 75 year old F referred to Physical Therapy by Dr. Judd Rubio MD with a diagnosis of PD. Date of Evaluation: 05/09/25 Physical Therapist: LIA Flores Visit Plan Frequency: 2x /Week Duration: 2 Months Plan: 2X/ week for 8 weeks for LE strength, gait mechanics (Increase step length, L leg clearing R stance leg and increase heel to toe gait pattern with rollator), balance exercises, endurance with walking, posture and HEP Subjective Subjective: Pt does not know why she is here. She said she went for a regular check up for PD and the Dr did not like how she was walking. She walks in with a rollator. She is now on a heavier does of PD meds. She was not feeling good this morning. She has lost 145 pounds cause she is just not hungry and had ulcers. She feels that her legs are weak. She drives still and is able to get her rollator in and out of the car. She takes care of her . She uses a cane if her takes his rollator. She uses a cane in the house except at night she uses the rollator. No falls lately. She does not use the steps in her home and has a ramp into the house. Objective Objective: Gait: walks with rollator with decrease step length. Left leg does not pass the stance R leg. I had her walk without the rollator with min A and she took very short stride with knees bent and very unsteady. She was unable to walk BW without the rollator. She was using her rollator to walk Bw and could do it with a very small step length Had the pt step over a 4 inch box holding on the the reinoso railing and she struggle to do that due to having to increase her step length over it and just being unsteady. LE MMT: R hip flex 5.4 and L 4.6 R knee ext 5.6 and L 4.5 R knee flexion 7.4 and L 6 Standing heel and toe raises at rollator: pt has decrease ankle AROM holding onto rollator but able to do heel and toe raises within available ROM FGA 7 Sit to stand: on first attempt and uses her arms to help her get out of a chair. Sitting opp arm and leg X 10 in row without messing up. Gait walking with rollator around entire dept (4 min and 4 seconds) pt reported that her legs were very tired after Posture: sits with more of a rounded shoulders but able to sit up on command Balance/Special Test Scores Functional Gait Assessment Score: 7 % Disability: 76.6700 Lower Extremity Functional Score: 44 Goals Goal 1:: I HEP Goal Time Frame: 6-8 Weeks Goal 2:: Increase LE strength (LE MMT: R hip flex 5.4 and L 4.6 R knee ext 5.6 and L 4.5 R knee flexion 7.4 and L 6) Goal Time Frame: 6-8 Weeks Goal 3:: Be able to walk 1 lap around dept with verbal cues to increase step length especially on the L LE (at the time of the eval 1 lap= 1 min and 4 seconds with rollator) Goal Time Frame: 6-8 Weeks Goal 4:: Increase balance (FGA was 7 at eval) Goal Time Frame: 6-8 Weeks Goal 5:: Be able to sit to stand X 10 with B UE on first attempt Rehabilitation Potential Rehabilitation Potential: Good Anticipated Interventions Patient/Client Instruction: Educate patient on: Condition and Plan of Care For the Purpose of:: To improve muscle performance and motor function, To improve ability to perform ADL's, To increase tolerance to activity/condition/position, To improve performance and independence with ADL's, To decrease level of supervision to perform tasks, To improve ability of physical actions for home/community/work/leisure, To improve gait and locomotor functions, To increase flexibility/ROM, To improve endurance, To improve balance and To improve safety with gait Therapeutic Exercise to Include: Strength training, Endurance training, Balance training, Coordination, Body mechanics, Postural training, Flexibilty training, Gait and locomotor training, Neuromotor development and Dynamic Lumbar Stabilization For the Purpose of:: To improve muscle performance and motor function, To improve ability to perform ADL's, To increase tolerance to activity/condition/position, To improve performance and independence with ADL's, To improve ability of physical actions for home/community/work/leisure, To improve gait and locomotor functions, To improve health of tissue, To increase flexibility/ROM, To improve endurance and To improve balance Functional Training to Include: Gait training For the Purpose of:: To improve gait and locomotor functions and To improve safety with gait Text: Thank you for the opportunity to evaluate your patient. For Medicare and Medicare HMO plans, please review the plan of care and approve it. It will need to be FAXED BACK to us at [phone] for Medicare purposes. For Medicare only, by signing this I certify the plan of care. Please let me know if there are questions or concerns regarding this plan of care. Physician Signature: Date:___
--- NOTE | 2025-06-06 17:09 | HP.SP.EV_ITS ---
Visit History Visit Info Date of Eval: 06/05/25 Today is Visit #: 1 Pharmacy Clinical Specialist: ROB History Attending Doctor: Referring Doctor: Reason for Referral: [facility] Medical Diagnosis: Dysphonia Date of Onset of Diagnosis: 2022 Previous speech therapy: No Other Relevant Medical History/Diagnoses/Surgery: Ulcers, pneumonia (remote), GERD, Migraines, sleep apnea, generalized weakness. See Past Medical History in chart for complete history. Medications related to this diagnosis: Pramipexole 1.5 mg 1x Taken at 7 am. Smoking Status: Never smoker Diagnosis Diagnosis: Dysphonia Pain Is pain an issue with your current prescribed condition?: No Personal Preferred language: Greek Patient Allergies Allergies Allergies: Allergies cefdinir Allergy (Verified 01/18/25 09:59) Hives diphenhydramine HCl (From Benadryl) Allergy (Verified 01/18/25 09:59) Hives Sulfa (Sulfonamide Antibiotics) Allergy (Verified 01/18/25 09:59) Hives Subjective Cog/Ling/Com Subjective Cognitive/Linguistic/Communication: Patient reported that she is having more difficulty with recall such as things to get at the store. She stated she never used a list and now needs to write more down or else she doesn't recall. Subjective Voice Informal Questioner Do you scream (anger, sporting event, work, noisy envirmonment): Less than average Do you raise your voice (e.g. parenting, calling from room to room, etc.): Less than average Do you talk for long periods of time without a break (teacher, marte): Less than average Are you a talker: Average How often do you use the telephone: Less than average Do you do impersonations, character voices or unusual sound effects: None Intubation Was the Client intubated: No Objective Voice Date of Diagnosis Date of diagnosis: 2022 Previous Speech Therapy (If yes, describe): No Medications Familiar with on/off effect: Yes Implantation Deep brain implantation (If yes, answer next question): No Objective data Objective Data: Objective data: Sound pressure level (SPL acoustic correlation of vocal loudness) was measured with a sound level meter at a distance of 40 cm from the patient's mouth. Average conversational loudness is 70-80 dB and sustained phonation duration is 15 to 20 seconds for a typical adult. Sustained Phonation Intensity (dB SPL): 62.7 Sustained Phonatin duration (seconds): 6.6 Is the individual stimulable to increase vocal intensity: Yes (With maximal cues) Vocal Intensity at Conversational Level (dB SPL): 52 dB Subjective Clinical Impression Adult Clinical Impression Dysphonia: any 'abnormal' vocal quality suggesting an interruption of normal production: Present Tremor: involuntary variations in pitch and loudness when trying to produce a steady, sustained tone; usually of a RADIO PRESENTER origin: Present Voice deterioration: reduction of volume or vocal quality with prolonged use: Present Non-Phonatory Behaviors/Respiration Reduced loudness or vocal weakness: Present Limited breath support for speech: Present Infrequent breaths; talking too long on one breath: Present Clavicular breathing: excessive movement of the chest and shoulders during inspiration: Present Reference: Neuro-QoL instrument HDQLIFE - Speech Difficulties In the past 7 days. It was difficult for other people to understand me.: Always Is was difficult to speak clearly?: Always In the past 7 days.. How often did you limit your social activites because you had difficulty speaking?: Always In the past 7 days... I had trouble speaking.: Somewhat I was frustrated by my speech difficulties.: Very much How much DIFFICULTY do you have... ...saying what you want to say?: A little difficulty Score HDQLIFE Speech Difficulties Raw Score: 25 HDQLIFE Speech Difficulties T - Score: 64 Radiation Oncology Patient Plan Plan Plan: A vocal intensity based intervention approach applying LSVT principles to improve speech intelligibility will be used. Given the progressive nature of primary diagnosis, It is not anticipated for a full return to pre-morbid level of functioning, though will expect to achieve gains in speech intelligibility as well as maintain current level of functioning. To achieve this, the patient will require continued skilled speech-language intervention not only through the current intervention cycle but will likely benefit from repeated intervention cycles to maintain communication efficiency. Recommendations Treatment Warranted: Yes Treatment Warranted: Voice Progress Prognosis: Good Frequency Frequency: 2x /Week Duration: 2 Months Visits in this POC: 16 Patient/Family Goal Patient/Family Goal: Patient's goal is to be able to talk with people and to be understood. Goals that are Established Determination:: Goals will be added/modified as deemed necessary and appropriate. Therapy will be discontinued when results of re-evaluation indicate therapy is no longer needed or lack of progress has been documented. Goal #1-5 Goal #1: Patient will sustain phonation for an average of 8-10 seconds on 4/5 trials on 2/3 consecutive sessions which will help increase vocal respiratory support for functional communication. Goal #2: Patient will increase vocal loudness to reach a target sound pressure level of 70 dB PRINCIPAL SOFTWARE ENGINEER with 1 cue during sustained phonation, which will help increase vocal respiratory support for functional communication. Goal #3: Patient will increase vocal loudness to reach a target sound pressure level of 65 dB PRINCIPAL SOFTWARE ENGINEER with 1 cue during reading at the word and sentence level, which will help increase vocal respiratory support for functional communication. Goal #4: Patient will increase vocal loudness to reach a target sound pressure level of 60 dB PRINCIPAL SOFTWARE ENGINEER with 2 cue during conversation for functional communication. Goal #5: Evaluation of cognitive skills including but not limited to recall and goals added as appropriate. Education Patient has Indicated that the Following Identified Educational Needs: None The Patient has indicated that they have no educational or learning abilities that may effect their care.: Yes Patient Instruction Patient Education: Diagnosis, Treatment Plan and Goals Person Taught: Patient
--- NOTE | 2025-06-11 13:29 | HP.PTDCSUM ---
Discharge Summary D/C summary: It has been my pleasure to treat DIONTE BRADFORD referred by Dr. Judd Rubio MD, with the diagnosis of PD for a total of 10 visit(s). Discharge Date: 06/11/25 Please see the following information for a summary of their discharge status. Subjective Subjective: Pt is having a hard time walking heel to toe and she is struggling with L leg weakness. She broke her L hip a few years ago and the Dr said to watch it because they do not want her to break it again. She feels that she is better with her balance and some strength. She still walks with her walker out in front of her because she can get there faster. Overall Improvement % Improvement: 10 Objective Objective/Function: LE MMT: R hip flex 6.4 and L 6.7 R knee ext 6.9 and L 6.9 R knee flexion 7.4 and L 6.3 FGA: 10 with use of a rollator with horizontal and vertical head turns and turning 180 degrees sit to stand: able to get up without using her arms on second attempt Goals Goal 1:: I HEP Goal Progress: Progressing Goal 2:: Increase LE strength (LE MMT: R hip flex 5.4 and L 4.6 R knee ext 5.6 and L 4.5 R knee flexion 7.4 and L 6) Goal Progress: Progressing Goal 3:: Be able to walk 1 lap around dept with verbal cues to increase step length especially on the L LE (at the time of the eval 1 lap= 1 min and 4 seconds with rollator) Goal 4:: Increase balance (FGA was 7 at eval) Goal 5:: Be able to sit to stand X 10 with B UE on first attempt Goal Progress: Progressing Plan Plan: Pt to start the PD class and will be discharged form PT at this point D/C Information Discharge Comments: DC PT to PD class d/c sentence: If there are questions or concerns regarding this patient's physical therapy, please feel free to call me at [phone]. Thank you for the referral of this patient. Sincerely, Carline Edgar, MPT Balance/Gait/Functional tests Balance/Special Test Scores Functional Gait Assessment Score: 10 % Disability: 66.6700 Lower Extremity Functional Score: 49 Improvement % Improvement: 10
--- NOTE | 2025-07-18 18:19 | HP.SP.REEV ---
Visit History Visit Info Date of Eval: 06/05/25 Today is Visit #: 1 Marketing Communications Coordinator: ROB History Attending Doctor: Referring Doctor: Reason for Referral: [facility] Medical Diagnosis: Dysphonia Date of Onset of Diagnosis: 2022 Previous speech therapy: No Other Relevant Medical History/Diagnoses/Surgery: Ulcers, pneumonia (remote), GERD, Migraines, sleep apnea, generalized weakness. See Past Medical History in chart for complete history. Medications related to this diagnosis: Pramipexole 1.5 mg 1x Taken at 7 am. Smoking Status: Never smoker Diagnosis Diagnosis: Dysphonia, Parkinson's Disease Pain Is pain an issue with your current prescribed condition?: No Personal Preferred language: Citizen Of [place] Patient Allergies Allergies Allergies: Allergies cefdinir Allergy (Verified 01/18/25 09:59) Hives diphenhydramine HCl (From Benadryl) Allergy (Verified 01/18/25 09:59) Hives Sulfa (Sulfonamide Antibiotics) Allergy (Verified 01/18/25 09:59) Hives Previous/Current Goals Goals 1-5 Previous Goal #1: Patient will sustain phonation for an average of 8-10 seconds on 4/5 trials on 2/3 consecutive sessions which will help increase vocal respiratory support for functional communication. Goal 1 Status: Goal continues: Initially: Average of 7.4 seconds Currently: Average was 7.8 Previous Goal #2: Patient will increase vocal loudness to reach a target sound pressure level of 70 dB DECONTAMINATOR with 1 cue during sustained phonation, which will help increase vocal respiratory support for functional communication. Goal 2 Status: Goal will be modified. Initially: Average of 60 dB Currently: 74 dB with minimal cues. Previous Goal #3: Patient will increase vocal loudness to reach a target sound pressure level of 65 dB DECONTAMINATOR with 1 cue during reading at the word and sentence level, which will help increase vocal respiratory support for functional communication. Goal 3 Status: Goal will be modified. Initially: Average of 65 dB Currently: 72 dB with moderate cues. Previous Goal #4: Patient will increase vocal loudness to reach a target sound pressure level of 60 dB DECONTAMINATOR with 2 cue during conversation for functional communication. Goal 4 Status: Goal will be modified. Initially: Average of 60.5 dB Currently: 66 dB Previous Goal #5: Evaluation of cognitive skills including but not limited to recall and goals added as appropriate. Goal 5 Status: Patient scored within normal limits on all subtests except for: Story Retelling (patient scored a 2; criterion cut score = 5) and Design Generation (patient scored a 2; criterion cut score = 5). Patient's scores indicated functioning that is within normal limits in the following cognitive domains: attention, executive functions, and visuospatial skills. Patient scored within the mild range for the following cognitive domain: memory (patient scored a 132; mild severity score range = 140-115). Patient scored within the moderate range for the following cognitive domain: language (patient scored 24; moderate severity score range = 24-16). Patient's Composite Severity Rating Range score was 3.6, indicating a severity rating of: within normal limits. Subjective Cog/Ling/Com Subjective Cognitive/Linguistic/Communication: Patient reported that she is having more difficulty with recall such as things to get at the store. She stated she never used a list and now needs to write more down or else she doesn't recall. Subjective Voice Informal Questioner Do you scream (anger, sporting event, work, noisy envirmonment): Less than average Do you raise your voice (e.g. parenting, calling from room to room, etc.): Less than average Do you talk for long periods of time without a break (teacher, marte): Less than average Are you a talker: Average How often do you use the telephone: Less than average Do you do impersonations, character voices or unusual sound effects: None Intubation Was the Client intubated: No Objective Voice Date of Diagnosis Date of diagnosis: 2022 Previous Speech Therapy (If yes, describe): No Medications Familiar with on/off effect: Yes Implantation Deep brain implantation (If yes, answer next question): No Objective data Objective Data: Objective data: Sound pressure level (SPL acoustic correlation of vocal loudness) was measured with a sound level meter at a distance of 40 cm from the patient's mouth. Average conversational loudness is 70-80 dB and sustained phonation duration is 15 to 20 seconds for a typical adult. Sustained Phonation Intensity (dB SPL): 62.7 Sustained Phonatin duration (seconds): 6.6 Is the individual stimulable to increase vocal intensity: Yes (With maximal cues) Vocal Intensity at Conversational Level (dB SPL): 52 dB Subjective Clinical Impression Adult Clinical Impression Dysphonia: any 'abnormal' vocal quality suggesting an interruption of normal production: Present Tremor: involuntary variations in pitch and loudness when trying to produce a steady, sustained tone; usually of a [employer] origin: Present Voice deterioration: reduction of volume or vocal quality with prolonged use: Present Non-Phonatory Behaviors/Respiration Reduced loudness or vocal weakness: Present Limited breath support for speech: Present Infrequent breaths; talking too long on one breath: Present Clavicular breathing: excessive movement of the chest and shoulders during inspiration: Present Reference: Neuro-QoL instrument HDQLIFE - Speech Difficulties In the past 7 days. It was difficult for other people to understand me.: Always Is was difficult to speak clearly?: Always In the past 7 days.. How often did you limit your social activites because you had difficulty speaking?: Always In the past 7 days... I had trouble speaking.: Somewhat I was frustrated by my speech difficulties.: Very much How much DIFFICULTY do you have... ...saying what you want to say?: A little difficulty Score HDQLIFE Speech Difficulties Raw Score: 25 HDQLIFE Speech Difficulties T - Score: 64 Radiation Oncology Patient Plan Plan Plan: A vocal intensity based intervention approach applying LSVT principles to improve speech intelligibility will be used. Given the progressive nature of primary diagnosis, It is not anticipated for a full return to pre-morbid level of functioning, though will expect to achieve gains in speech intelligibility as well as maintain current level of functioning. To achieve this, the patient will require continued skilled speech-language intervention not only through the current intervention cycle but will likely benefit from repeated intervention cycles to maintain communication efficiency. Recall strategies will be addressed due to the progressive nature of Parkinson's Disease on memory. Recommendations Treatment Warranted: Yes Treatment Warranted: Cognition and Voice Progress Prognosis: Good Frequency Frequency: 2x /Week Duration: 4 Weeks Visits in this POC: 8 Patient/Family Goal Patient/Family Goal: Patient's goal is to be able to talk with people and to be understood. Goals that are Established Determination:: Goals will be added/modified as deemed necessary and appropriate. Therapy will be discontinued when results of re-evaluation indicate therapy is no longer needed or lack of progress has been documented. Goal #1-5 Goal #1: Patient will sustain phonation for an average of 8-10 seconds on 4/5 trials on 2/3 consecutive sessions which will help increase vocal respiratory support for functional communication. Goal #2: Patient will increase vocal loudness to reach a target sound pressure level of 75 dB DECONTAMINATOR with 1 cue during sustained phonation, which will help increase vocal respiratory support for functional communication. Goal #3: Patient will increase vocal loudness to reach a target sound pressure level of 75 dB DECONTAMINATOR with 1 cue during reading at the word and sentence level, which will help increase vocal respiratory support for functional communication. Goal #4: Patient will increase vocal loudness to reach a target sound pressure level of 70 dB DECONTAMINATOR with 2 cue during conversation for functional communication. Goal #5: Patient will report use of at least two recall strategies at home for functional recall skills on 3/3 sessions. Education Patient has Indicated that the Following Identified Educational Needs: None The Patient has indicated that they have no educational or learning abilities that may effect their care.: Yes Patient Instruction Patient Education: Diagnosis, Treatment Plan and Goals Person Taught: Patient
--- NOTE | 2025-08-13 10:52 | HP.SP.DC_ITS ---
ST Discharge Summary Discharged: Discharge: Viola Bennett is discharged from [facility] as of 08/10/25. She was evaluated on 06/05/25 for dysphonia due to Parkinson’s Disease. She completed 16 sessions with excellent attendance since her initial evaluation. The focus was on increasing volume and sustaining phonation. Sustained phonation in seconds: Initially Average of 7.4 seconds DC Average of 9 seconds Vocal loudness during sustained phonation: Initially Average of 60 dB DC Average of 75.1 dB. Vocal Loudness during reading: Initially Average of 60 dB DC Average of 68 dB Vocal Loudness during conversation: initially Average of 60.5 dB DC Average of 65 dB The patient also provided with a list of recall strategies as she stated she was having mild difficulty with recalling. She was able to use at least two recall strategies at home. Patient is discharged as her goals have been met. The patient will likely benefit from repeated intervention cycles to maintain communication efficiency. She was educated on how to return to therapy in the future as necessary. Please see daily notes and reports for complete details. Thank you for allowing me to participate in the care of this patient.
== END 2025-08-10 19:00 | disposition home or self-care (01) ==
LOC: SP 10:30
PROVIDERS: PCP Family Medicine Geriatric Medicine; Referring Provider Psychiatry & Neurology Neurology; Visit Provider Psychiatry & Neurology Neurology
DX: G20.A2 Parkinson's disease without dyskinesia, with fluctuations (principal); R49.0 Dysphonia
CPT/HCPCS: 92507; 92524; 97110; 97161; 97530

== ENCOUNTER → 2025-08-24 | Outpatient (CLI) | payer MEDICARE, OTHER, SELFPAY ==
--- OUTSIDE RECORDS SUMMARY | 2025-08-24 06:07 | XMS RPT_ITS | CCD ---
Author Organization [facility] Care Team Providers Care Department Operations Manager Name Role Phone DeFinis, Harumi Y Unavailable Unavailable DeFinis, Harumi Y Unavailable Unavailable Ambriz, Juanita Unavailable Unavailable Ambriz, Juanita Unavailable Unavailable Ronaldis, Harumi Y Unavailable Unavailable Dr. Desmond Riojas Chi Primary Care Provider Dr. Desmond Riojas Chi Referring Provider Dr. Herlinda Mills Attending Provider Andrea PERIOPERATIVE TECH, PERIOPERATIVE TECH-C Vesta Attending Provider Dr. Desmond Riojas Chi Primary Care Provider Dr. Wilfredo Canales Emergency Provider Dr. Margot Ribeiro Admit Provider Dr. Margot Ribeiro Other Provider Dr. Darrel Caceres Other Provider Dr. Logan Seymour Other Provider Leonides PERIOPERATIVE TECH, SERENA-C Mignon Attending Provider Dr. Vic Flaherty Other Provider Dr. Logan Seymour Attending Provider Leonides PERIOPERATIVE TECH, SERENA-C Mignon Attending Provider Dr. Padmini Moran Admit Provider Dr. Padmini Moran Attending Provider Dr. Padmini Moran Other Provider Pcp, No Primary Care Provider Unavailabl e Desmond Riojas Chi Primary Care Provider Masci DO, Luis Felipe A Unavailable Shine, Dr. Desmond Madden Primary Care Provider Dr. Wilfredo Canales Emergency Provider Dr. Margot Ribeiro Admit Provider Dr. Margot Ribeiro Other Provider Dr. Darrel Caceres Other Provider Dr. Logan Seymour Attending Provider Lion, Dr. Ford Other Provider Dr. Vic Flaherty Other Provider Leonides LYONS, PERIOPERATIVE TECH-C Mignon Attending Provider Semendaysi, Dr. Padmini Schaffer Admit Provider Semendaysi, Dr. Padmini Schaffer Attending Provider Sementi, Dr. Padmini Schaffer Other Provider Shine, Desmond Madden Primary Care Provider Masci DO, Luis Felipe A Unavailable Dr. Gucci Liang Emergency Provider Dr. Giuliano Will Attending Provider Unavailable Dr. Giuliano Will Other Provider Unavailable Shine, Dr. Desmond Madden Primary Care Provider Dr. Wilfredo Canales Emergency Provider Dr. Margot Ribeiro Admit Provider Dr. Margot Ribeiro Other Provider Dr. Darrel Caceres Other Provider Dr. Logan Seymour Attending Provider Lion, Dr. Ford Other Provider Leonides LYONS, PERIOPERATIVE TECH-C Mignon Attending Provider Dr. Marlin Onofre Attending Provider Dr. Desmond Riojas Chi Referring Provider Dr. Jack Pacheco Attending Provider [facility], Dr. Greenberg Attending Provider Shnie, Dr. Desmond Madden Primary Care Provider [phone] Gucci Liang Emergency Provider Dr. Margot Ribeiro Admit Provider Quintin, Dr. Margot Tillman Other Provider Dr. Giuliano Will Attending Provider Unavailable Suman, Dr. Nobles Other Provider Unavailable Kingston, Dr. Isaac Attending Provider Shine, Dr. Desmond Madden Referring Provider Dr. Jack Pacheco Attending Provider [phone] [facility], Dr. Greenberg Attending Provider SHINE, DESMOND MADDEN Primary Care Unavailable SHINE, DESMOND [facility] Primary Care Unavailable MASCI, LUIS FELIPE A Referring Unavailable MASCILUIS FELIPE A Referring Unavailable SEMENTIPADMINI Referring Unavaila ble MASCI, LUIS FELIPE A Attending Unavailable Shine, Dr. Desmond Madden Primary Care Provider [phone] Shine, Dr. Desmond Madden Referring Provider Dr. Jack Pacheco Attending Provider Shine, Dr. Desmond Madden Primary Care Provider [phone] Jared Green Emergency Provider Dr. Giuliano Gilliland Admit Provider Unavailabl e Dr. Giuliano Gilliland Other Provider Unavailabl e Dr. Сергей Vega Attending Provider Dr. Сергей Vega Other Provider Korelba, Dr. Renae Mathews Attending Provider [phone] Korelba, Dr. Renae Mathews Other Provider Shine SANCHEZ, [facility] Primary Care Provider [phone] MAGNOLIA SHEFFIELD Attending Unavailable SHINE, DESMONDJustinCHI Referring Unavailable PRESTON MOLINA Attending Unavailable PRESTON MOLINA Attending Unavailable SHINE, DESMOND-CHI Referring Unavailable MAGNOLIA SHEFFIELD Attending Unavailable PRESTON MOLINA Attending Unavailable PRESTON MOLINA Referring Unavailable MAGNOLIA SHEFFIELD Attending Unavailable PRESTON MOLINA Attending Unavailable PRESTON MOLINA Attending Unavailable MAGNOLIA SHEFFIELD Attending Unavailable Shine SANCHEZ, Dr. Desmond Madden Primary Care Provider [phone] Shine SANCHEZ, Dr. Desmond Madden Referring Provider Harriet Kilgore Attending Provider Shine SANCHEZ, Dr. Desmond Madden Attending Provider Shine SANCHEZ, Dr. Desmond Madden Primary Care Provider Shine SANCHEZ, Dr. Desmond Madden Referring Provider Harriet Kilgore Attending Provider Julio Cesar PERIOPERATIVE TECH-CDaya Attending Provider Julio Cesar PERIOPERATIVE TECH-C, Daya Referring Provider Kingston SANCHEZ, Dr. Isaac Attending Provider Leo MALONE, Dr. Munoz Attending Provider Leo MALONE, Dr. Munoz Other Provider Kingston SANCHEZ, Dr. Isaac Referring Provider Shine SANCHEZ, Dr. Desmond Madden Primary Care Provider Shine SANCHEZ, Dr. Desmond Madden Referring Provider Kingston SANCHEZ, Dr. Isaac Attending Provider Harriet Kilgore Attending Provider Dr. Judd Rubio MD Attending Provider Unavailab Alexander SANCHEZ, Dr. Whaley Referring Provider Unavailab Liat SANCHEZ, Dr. Desmond Madden Primary Care Physician Shine SANCHEZ, Dr. Desmond Madden Referring Provider Harriet Kilgore Attending Physician Shine SANCHEZ, Dr. Desmond Madden Attending Physician Ramiro SANCHEZ, Dr. Whaley Attending Physician Unavaila jared Rubio MD, Dr. Whaley Referring Provider Unavailab Desmond Josue Chi Primary Care Unavailable Shine, Desmond Chi Attending Unavailable Shine, Desmond Chi Primary Care Unavailable Molina, Preston Referring Unavailable Molina, Preston Attending Unavailable Shine, Desmond Chi Referring Unavailable FriendAlexander Attending Unavailable Shine, Desmond Chi Primary Care Unavailable Shine, Desmond Chi Referring Unavailable Shine, Desmond Chi Attending Unavailable Shine, Desmond Chi Primary Care Unavailable Shine, Desmond Chi Primary Care Unavailable Shine, Desmond Chi Referring Unavailable AtaHarriet kapadia Attending Unavailable Shine, Desmond Chi Primary Care Unavailable KingstonMarlin Attending Unavailable Shine, Desmond Chi Primary Care Unavailable Shine, Desmond Chi Referring Unavailable Friend, Alexander Attending Unavailable Friend, Alexander Consulting Unavailable Shine, Desmond Chi Primary Care Unavailable Harriet Humphries Attending Unavailable Shine, Desmond Chi Referring Unavailable Shine, Desmond Chi Referring Unavailable Harriet Humphries Attending Unavailable Shine, Desmond Chi Primary Care Unavailable Shine, Desmond Chi Referring Unavailable AtanasHarriet toure Attending Unavailable Shine, Desmond Chi Primary Care Unavailable Shine, Desmond Chi Referring Unavailable Kingston, Marlin Attending Unavailable Shine, Desmond Chi Primary Care Unavailable Harrell, Daya Attending Unavailable Harrell, Daya Referring Unavailable Shine, Desmond Chi Primary Care Unavailable Harrell, Daya Referring Unavailable Harrell, Daya Attending Unavailable Shine, Desmond Chi Primary Care Unavailable Shine, Desmond Chi Primary Care Unavailable Ramiro Judd Referring Unavailable RamiroJudd Attending Unavailable Shine, Desmond Chi Primary Care Unavailable Kingston, Marlin Referring Unavailable Kingston, Marlin Attending Unavailable Allergies Allergy Classification Reported Allergen(s) Allergy Type Date of Onset Reaction(s) Facility (20 sources) cefdinir; Translations: [CEFDINIR] drug allergy 06-02-20 12 [facility] [employer] Work Phone: (5 sources) diphenhydrAMINE drug allergy 06-02-20 12 [place] [employer] Work Phone: (5 sources) Sulfonamides (Antibiotic) drug allergy 06-02-20 12 [facility] [employer] Work Phone: (20 sources) diphenhydrAMINE; Translations: [DIPHENHYDRAMINE HCL] Drug Allergy 03-20-20 11 Itching [facility] (20 sources) Sulfonamides (Antibiotic); Translations: [SULFA (SULFONAMIDE ANTIBIOTICS)] Allergy to substance 03-20-20 11 Rash, Itching [facility] (15 sources) diphenhydrAMINE Drug Allergy 04-15-20 [facility] Work Phone: (15 sources) Sulfonamides (Antibiotic) Propensity to adverse reactions 04-15-20 [facility] Medications Current Medications Medication Drug Class(es) Dates Sig (Normalized) Sig (Original) apixaban 5 mg oral tablet (20 sources) Factor Xa Inhibitor Start: 06-12-2022 take 1 tablet by mouth every twelve hours Start: 11-10-2017 End: 06-12-2022 take 1 tablet by mouth twice daily Apixaban 5 mg tablet Discontinued 5 mg PO TWICE A DAY 180 3 April 18, 2019 12:10pm 2021 3:45pm Start: 04-27-2016 End: 10-27-2016 take 1 tablet by mouth twice daily ELIQUIS 5 MG TABS One tablet by mouth twice daily APIXABAN [id number] Kylee Burr PA-C take 1 tablet by toney th every twelve hours Eliquis 5 MG tablet Take 5 mg by mouth every 12 (twelve) hours. Active Comment on above: Take 5 mg by mouth t wice daily. ascorbic acid 60 mg / beta carotene 5000 unt / copper sulfate 40 mg / dl-alpha tocopheryl acetate 30 unt / sodium selenite 0.04 mg / zinc oxide 40 mg oral tablet (15 sources) Vitamin C Multiple Vitamin (Multivitamin Adult) tablet as directed Orally Active citalopram 20 mg oral tablet (20 sources) Serotonin Reuptake Inhibitor Start: 07-15-2024 Start: 06-12-2022 End: 07-15-2024 take 1 tablet by mouth once daily Citalopram 20 mg Tablet Discontinued 20 mg PO DAILY 30 0 June 12, 2022 12:00am July 15, 2024 5:24pm Start: 10-25-2019 End: 03-11-2021 take 2 tablets by mouth once daily Citalopram (Celexa) 40 mg tablet Discontinued 80 mg PO daily October 25, 2019 3:54pm March 11, 2021 8:32pm Mood Start: 03-20-2011 End: 06-12-2022 take 1 tablet by mouth once daily Citalopram 40 mg tablet Discontinued 40 mg PO DAILY May 28, 2022 5:27pm June 12, 2022 1:44pm mood Comment on above: Take 1 tablet by toney th once daily. Take 20 mg by mouth once daily. docusate sodium 50 mg / sennosides, fci 8.6 mg oral tablet (20 sources) Start: 04-22-2024 End: 02-06-2025 take 1 tablet by mouth once daily Start: 06-12-2022 take 2 tablets by mo uth twice daily Sennosides-Docusate Sodium (Stool Softener-Stimulant Laxat) 8.6-50 mg Tablet Active 2 TABLET PO TWICE A DAY 120 June 11, 2022 11:00pm take 2 tablets by mo uth in the morning senna-docusate (Rubia-Colace) 8.6-50 MG tablet Take 2 tablets by mouth in the morning and 2 tablets in the evening. Active Comment on above: Take 2 tablets by mo uth twice daily. ergocalciferol 1.25 mg oral capsule (20 sources) Provitamin D2 Compound Start: 11-24-2021 Start: 11-24-2021 take 1250 ug by mout h every week Ergocalciferol (Vitamin D2) Active 1250 MCG PO EVERY WEEK November 24, 2021 12:00am Start: 11-10-2017 End: 10-25-2019 Ergocalciferol (Vitamin D2) 50,000 unit capsule Discontinued 53131 U PO EVERY MONTH November 10, 2017 1:00am October 25, 2019 3:56pm Start: 05-07-2017 take 1 tablet by toney th every month VITAMIN D (ERGOCALCIFEROL) 64319 UNIT CAPS One tablet by mouth every month ERGOCALCIFEROL [id number] Luis Felipe Garzon MD Start: 05-07-2017 take 1 tablet by toney th every month VITAMIN D (ERGOCALCIFEROL) 13304 UNIT CAPS One tablet by mouth every month ERGOCALCIFEROL [id number] Luis Felipe Garzon MD Start: 05-01-2015 End: 11-05-2015 take 1 tablet by mouth every week VITAMIN D (ERGOCALCIFEROL) 39617 UNIT CAPS One tablet by mouth weekly ERGOCALCIFEROL [id number] Luis Felipe Garzon MD Start: 05-01-2015 End: 11-05-2015 take 1 tablet by mouth every week VITAMIN D (ERGOCALCIFEROL) 59155 UNIT CAPS One tablet by mouth weekly ERGOCALCIFEROL [id number] Luis Felipe Garzon MD Start: 09-29-2013 End: 11-16-2017 take 52482 [IU] by mouth every week Vitamin D2 Discontinued 98341 UNITS PO EVERY WEEK September 29, 2013 3:55pm November 16, 2017 6:32pm Start: 09-29-2013 End: 11-16-2017 take 52704 [IU] by mouth every week Vitamin D2 Discontinued 46838 U PO EVERY WEEK September 29, 2013 1:00am November 16, 2017 6:32pm Start: 09-29-2013 End: 11-16-2017 take 99072 [IU] by mouth every week Vitamin D2 Discontinued 49444 UNITS PO EVERY WEEK September 29, 2013 12:00am November 16, 2017 5:32pm Start: 09-29-2013 End: 11-16-2017 take 62358 [IU] by mouth every week Vitamin D2 Discontinued 25889 UNITS PO EVERY WEEK September 29, 2013 1:00am November 16, 2017 6:32pm take 1.25 mg by mout h every week ergocalciferol (Vitamin D2) 1.25 MG (96294 UT) capsule Take 50,000 Units by mouth once a week Active Comment on above: Take 50,000 Units by mouth one time a week. gabapentin 100 mg oral capsule (20 sources) [...] 90 capsule 1 06/02/2024 07/03/2024 Discontinued Start: 09-29-2013 End: 11-16-2017 take 1 capsule by mouth once daily Gabapentin 300 MG capsule Discontinued 300 mg PO DAILY September 29, 2013 1:00am November 16, 2017 6:34pm take 1 tablet by toney th once daily gabapentin 600 mg tablet Indications: DVT (deep venous thrombosis) ([facility]) , Coagulation defect ([facility]) Take 600 mg by mouth once daily. 0 Active Comment on above: Take 600 mg by mouth once daily. 1 ml galcanezumab-gnlm 120 m g/ml prefilled syringe (20 sources) Start: 10-25-2019 inject 120 mg by sub cutaneous injection every 30 days galcanezumab (Emgality) 120 MG/ML auto-injector Inject 120 mg under the skin every 30 (thirty) days. Active Comment on above: Inject 120 mg subcut aneously once every month. Do not shake. Guarana, Paullinia cupana, 200 MG capsule (5 sources) take 2 capsules by mouth once daily Guarana, Paullinia cupana, 200 MG capsule Take 2 capsules by mouth Daily Active Huowtff-Hjwobzn-An osphorus (Guarana) capsule (6 sources) Start: Start: 01-18-2025 Guarana-Calciu m-Phosphorus (Guarana) capsule Active 1 NMA PO DAILY January 18, 2025 12:00am Start: 01-18-2025 Guarana-Calciu m-Phosphorus (Guarana) capsule Active NMA PO DAILY January 18, 2025 12:00am methylPREDNISolone (4 sources) Corticosteroid Start: 08-10-2024 methylPREDNISolone (Medrol Dospak) 4 MG tablets Indications: Migraine without aura and with status migrainosus, not intractable ([facility]) Follow schedule on package instructions 21 tablet 08/10/2024 Active mineral oil 999 mg/ml oral solution (5 sources) take 30 mL by mouth every twenty-four hours as needed for constipation mineral oil liquid Take 30 mL by mouth Daily as needed for constipation Active Multivitamin preparation (19 sources) Start: 04-26-2020 take 1 tablet by mouth once daily Multivitamin Active 1 TABLET PO DAILY April 26, 2020 10:34am Start: 04-26-2020 take 1 tablet by toney th once daily Multivitamin Active 1 TABLET PO DAILY April 25, 2020 11:00pm Start: 04-26-2020 take 1 tablet by toney th once daily Multivitamin Active 1 TABLET PO DAILY April 26, 2020 12:00am Multivitamin tablet (8 sources) Start: 04-26-2020 Start: 04-26-2020 Multivitamin t ablet Active 1 {tbl} PO DAILY April 26, 2020 12:00am Supplement Start: 04-26-2020 Multivitamin t ablet Active 1 {tbl} PO DAILY April 26, 2020 12:00am 24 hr niacin 500 mg extended release oral tablet (13 sources) Nicotinic Acid Start: 06-12-2022 take 500 mg by mouth at bedtime Niacin Active 500 MG PO AT BEDTIME June 11, 2022 11:00pm take 1 tablet by toney once daily at bedtime niacin (NIACIN) 500 mg tablet Take 500 m g by mouth daily at bedtime. 0 Active Comment on above: Take 500 mg by mouth daily at bedtime. omeprazole 40 mg delayed release oral capsule (20 sources) Proton Pump Inhibitor Start: 2025 End: 05-31-2025 take 1 capsule by mouth twice daily Start: 08-25-2024 End: 2025 take 1 capsule by mouth once daily Omeprazole 40 mg capsule,delayed release(DR/EC) Discontinued 40 mg PO daily 90 December 12, 2024 6:34am 2025 9:55am Start: 03-20-2011 End: 08-25-2024 take 1 capsule by mouth once daily Omeprazole 20 MG capsule Discontinued 20 mg PO DAILY September 29, 2013 1:00am August 25, 2024 11:03am GERD take 1 tablet by toney once daily PRILOSEC 20 MG CPDR One tablet by mouth daily OMEPRAZOLE [id number] Zachary Cardenas Comment on above: Take 1 capsule by mo [facility] [place] once daily. ondansetron 4 mg oral tablet (20 sources) Serotonin-3 Receptor Antagonist Start: 01-18-2025 End: 05-31-2025 take 1 tablet by mouth every eight hours as needed for nausea and vomiting Start: 08-25-2024 End: 12-28-2024 take 1 tablet by mouth every twelve hours Ondansetron 8 mg tablet,disintegrating Discontinued 8 mg PO Q12H 09 11August 25, 2024 1:00am December 28, 2024 1:39pm Start: 07-15-2024 End: 08-25-2024 take 1 tablet by mouth every eight hours as needed for nausea Ondansetron 4 mg tablet,disintegrating Discontinued 4 mg PO EVERY 8 HOURS NEEDED as needed for Nausea 07 12July 19, 2024 9:15am August 25, 2024 11:05am Start: 04-22-2024 End: 08-25-2024 take 1 tablet by mouth once daily as needed for nausea and vomiting Ondansetron 4 mg tablet,disintegrating Discontinued 4 mg PO DAILY as needed for nausea and vomiting April 22, 2024 12:00am August 25, 2024 11:05am Start: 03-04-2016 End: 11-16-2017 take 1 tablet by mouth every eight hours as needed for nausea Ondansetron 4 MG tablet Discontinued 4 mg PO EVERY 8 HOURS NEEDED as needed for Nausea March 04, 2016 12:00am November 16, 2017 6:33pm ondansetron (Zof ran) 4 MG tablet Take by mouth Active oxycleanse (5 sources) Start: 02-07-2025 Start: 02-07-2025 oxycleanse Act jacki 1 NMA PO 1 time daily February 07, 2025 12:00am Constipation Constipation, unspecified Start: 02-07-2025 oxycleanse Act jacki 1 NMA PO 1 time daily February 07, 2025 12:00am oxyCODONE hydrochloride 5 mg oral tablet (20 sources) Opioid Agonist Start: 06-12-2022 take 5 mg by mouth every four hours as needed for pain Oxycodone Active 5 MG PO EVERY 4 HOURS NEEDED 7 June 12, 2022 5 mg every 4-6 hours as needed for pain not relieved with tylenol Start: 06-01-2022 End: 06-12-2022 Oxycodone 5 mg tablet Discon tinued 2.5 - 5 mg PO EVERY 4 HOURS NEEDED as needed for Pain June 01, 2022 4:39pm June 12, 2022 1:55pm 2.5 mg Pain 1-4 5mg pain 5-10 Start: 06-01-2022 End: 06-12-2022 Oxycodone Discontinued 2.5 - 5 MG PO EVERY 4 HOURS NEEDED June 01, 2022 4:39pm June 12, 2022 1:55pm 2.5 mg Pain 1-4 5mg pain 5-10 Start: 06-01-2022 End: 06-01-2022 take 2.5-5 mg by mouth every four hours as needed for pain Oxycodone 5 mg Tablet Discontinued 2.5 - 5 mg PO EVERY 4 HOURS NEEDED as needed for Pain Score 4-10 0 0 June 01, 2022 June 01, 2022 4:39pm Start: 2021 End: 03-11-2021 take 1 tablet by mouth every four hours as needed for pain Oxycodone 10 mg tablet Discontinued 10 mg PO Q4H as needed for pain 8 2 0 2021 March 11, 2021 8:32pm Open wound of left lower leg with complication Unspecified open wound, left lower leg, initial encounter Comment on above: Take 5 mg by mouth e very 4 hours as needed for pain. polysaccharide iron complex 150 mg oral capsule (15 sources) Start: 01-17-2025 take 1 capsule by mouth once daily Start: 03-27-2024 take 1 capsule by mo uth once daily IFerex 150 150 MG capsule Take 150 mg by mouth Daily 03/27/2024 Active 24 hr divalproex sodium 500 mg extended release oral tablet (20 sources) Mood Stabilizer, Anti-epileptic Agent Start: 03-27-2024 take 1 tablet by mouth once daily in the morning divalproex (Depakote ER) 500 MG 24 hr tablet Indications: Chronic migraine without aura, intractable, without status migrainosus (CMS/HCC) take 1 tablet by mouth every morning 30 tablet 03/27/2024 Active Start: 01-31-2021 take 1 tablet by toney th every twenty-four hours at bedtime take 1 tablet by toney th once daily at bedtime divalproex DR (DEPAKOTE) 500 mg EC tablet Take 500 mg by mouth daily at bedtime. 0 Active Comment on above: Take 500 mg by mouth daily at bedtime. Completed/Discontinued Medications Medication Drug Class(es) Dates Sig (Normalized) Sig (Original) acetaminophen 500 mg oral tablet (20 sources) Start: 06-12-2022 take 2 tablets by mouth every eight hours as needed for pain Acetaminophen Active 1000 MG PO EVERY 8 HOURS NEEDED 1 June 12, 2022 1:55pm 2 tabs every 8 hours as needed for pain. Start: 06-01-2022 End: 02-06-2025 take 2 tablets by mouth every eight hours as needed for pain Acetaminophen 500 mg tablet Discontinued 1000 mg PO EVERY 8 HOURS NEEDED as needed for pain 1 0 June 12, 2022 1:55pm February 06, 2025 9:39am 2 tabs every 8 hours as needed for pain. Start: 06-01-2022 End: 06-12-2022 take 1000 mg by mouth every eight hours Acetaminophen Discontinued 1000 MG PO EVERY 8 HOURS June 01, 2022 4:39pm June 12, 2022 1:55pm Start: 03-11-2021 End: 06-01-2022 take 2 tablets by mouth every six hours as needed for pain Acetaminophen 500 mg Tablet Discontinued 1000 mg PO EVERY 6 HOURS NEEDED as needed for Pain Score 1-5 0 0 March 11, 2021 12:00am June 01, 2022 10:58am Start: 03-11-2021 End: 06-01-2022 take 1000 mg by mouth every six hours as needed Acetaminophen Discontinued 1000 MG PO EVERY 6 HOURS NEEDED 0 March 11, 2021 12:00am June 01, 2022 10:58am Comment on above: Take 1,000 mg by toney th every 8 hours as needed. acetaminophen 325 mg / HYDROcodone bitartrate 5 mg oral tablet (20 sources) Opioid Agonist Start: 01-04-2023 End: 12-03-2023 Hydrocodone-Acetaminophe n 5-325 mg tablet Discontinued 1 {tbl} PO 0 January 04, 2023 12:00am December 03, 2023 1:58pm Start: 01-04-2023 End: 12-03-2023 Hydrocodone-Acetaminophen Di scontinued 1 TABLET PO January 04, 2023 12:00am December 03, 2023 1:58pm Start: 09-16-2020 End: 09-19-2020 Hydrocodone-Acetaminophen 1 TABLET tablet Discontinued 1 {tbl} PO EVERY 6 HOURS NEEDED as needed for Pain 12 3 0 September 16, 2020 September 18, 2020 1:00am September 19, 2020 1:02am Sciatica Sciatica, unspecified side Start: 09-16-2020 End: 09-19-2020 take 1 tablet by mouth every six hours as needed Hydrocodone-Acetaminophen Discontinued 1 TABLET PO EVERY 6 HOURS NEEDED 12 3 September 16, 2020 September 19, 2020 1:02am Start: 03-04-2016 End: 11-16-2017 Hydrocodone-Acetaminophen 1 TABLET tablet Discontinued 1 - 2 {tbl} PO EVERY 4 HOURS NEEDED as needed for Pain 20 March 04, 2016 12:00am November 16, 2017 6:34pm Start: 03-04-2016 End: 11-16-2017 take 1 tablet by mouth every four hours as needed Hydrocodone-Acetaminophen Discontinued 1 - 2 TABLET PO EVERY 4 HOURS NEEDED March 04, 2016 12:00am November 16, 2017 6:34pm albuterol 4 mg oral tablet (20 sources) beta2-Adrenergic Agonist Start: 05-01-2015 End: 11-05-2015 take 1 tablet by mouth twice daily ALBUTEROL SULFATE 4 MG TABS One tablet by mouth twice daily ALBUTEROL SULFATE [id number] Luis Felipe Garzon MD Start: 05-11-2013 take 2 tablets by mo [facility] twice daily ALBUTEROL 4 mg 12 hr tablet Indications: DVT (deep venous thrombosis) (HCC) , Coagulation defect (HCC) Take two tablets by mouth twice daily. 0 05/11/2013 Active ALBUTEROL SULFAT E 4 MG TABS 2 tabs twice a day ALBUTEROL SULFATE [id number] Zachary Cardenas Comment on above: Take two tablets by mouth twice daily. ALPRAZolam 0.25 mg oral tablet (20 sources) Benzodiazepine Start: 4 take 1 tablet by mouth once daily XANAX 0.25 MG TABS One tablet by mouth daily ALPRAZOLAM [id number] Luis Felipe Garzon MD Start: 09-29-2013 End: 10-25-2019 take 0.25 mg by mouth once daily Alprazolam 0.5 MG tablet Discontinued 0.25 mg PO DAILY September 29, 2013 1:00am October 25, 2019 3:56pm Start: 09-29-2013 End: 10-25-2019 take 0.25 mg by mouth once daily Alprazolam Discontinued 0.25 MG PO DAILY September 29, 2013 1:00am October 25, 2019 3:56pm Start: 03-20-2011 take 1 tablet by toney every eight hours as needed ALPRAZolam 0.25 mg ORAL tablet Indications: DVT (deep venous thrombosis) (HCC) Take 1 tablet by mouth every 8 hours as needed. 0 03/20/2011 Active take 1 tablet by toney twice daily XANAX 0.25 MG TABS One tablet by mouth twice daily ALPRAZOLAM [id number] Zachary Tillman Theresa Comment on above: Take 1 tablet by toney every 8 hours as needed. amitriptyline hydrochloride 50 mg oral tablet (20 sources) Tricyclic Antidepressant Start: 04-25-20 End: 04-20-20 take 1 tablet by mouth at bedtime amitriptyline (Elavil) 50 MG tablet Indications: Insomnia, unspecified type Take 1 tablet (50 mg) by mouth at bedtime 90 tablet 3 04/25/2024 07/31/2024 Discontinued Start: 10-25-2019 End: 07-15-2024 take 1 tablet by mouth at bedtime Amitriptyline 25 mg tablet Discontinued 25 mg PO AT BEDTIME October 25, 2019 1:00am July 15, 2024 5:21pm Mood Comment on above: Take 25 mg by mouth daily at bedtime. Otyid-Cphx-Umote-Daly ag-Mv-Min (Mustapha (With Collagen)) 7-7-1.5 gram Powder In Packet (20 sources) Start: 03-11-2021 End: 05-27-2021 Fobmw-Preg-Bmrng-Collag-Mv -Min (Mustapha (With Collagen)) 7-7-1.5 gram Powder In Packet Discontinued 1 PACKET PO TWICE DAILY WITH MEALS March 11, 2021 8:31pm May 27, 2021 10:05am Start: 03-11-2021 End: 05-27-2021 Kspht-Gxcs-Rjwdp-Collag-Mv-M in (Mustapha (With Collagen)) 7-7-1.5 gram Powder In Packet Discontinued 1 NMA PO TWICE DAILY WITH MEALS March 11, 2021 12:00am May 27, 2021 10:05am Start: 03-11-2021 End: 05-27-2021 Elpjy-Qbri-Ffiwu-Collag-Mv-M in (Mustapha (With Collagen)) 7-7-1.5 gram Powder In Packet Discontinued 1 NMA PO TWICE DAILY WITH MEALS March 11, 2021 12:00am May 27, 2021 10:05am Start: 03-11-2021 End: 05-27-2021 Wjrho-Plls-Xfbhd-Collag-Mv-M in (Mustapha (With Collagen)) 7-7-1.5 gram Powder In Packet Discontinued 1 PACKET PO TWICE DAILY WITH MEALS March 10, 2021 11:00pm May 27, 2021 9:05am Start: 03-11-2021 End: 05-27-2021 Cxexy-Jgkt-Lgrmf-Collag-Mv-M in (Mustapha (With Collagen)) 7-7-1.5 gram Powder In Packet Discontinued 1 PACKET PO TWICE DAILY WITH MEALS March 11, 2021 12:00am May 27, 2021 10:05am Vhdkitgt-Fgrzaexza-Pquzurz H mb (Mustapha) 7-7-1.5 gram powder in packet (20 sources) Start: 03-17-2021 End: 05-27-2021 Mjrdsuse-Gpxthxscr-Jppoocj H mb (Mustapha) 7-7-1.5 gram powder in packet Discontinued 1 EACH PO TWICE A DAY 60 March 17, 2021 7:49am May 27, 2021 10:05am Start: 03-17-2021 End: 05-27-2021 Bityfjzf-Roeajuiyd-Xmdfama H mb (Mustapha) 7-7-1.5 gram powder in packet Discontinued 1 NMA PO TWICE A DAY 60 30 March 17, 2021 12:00am May 27, 2021 10:05am Start: 03-17-2021 End: 05-27-2021 Fwdzezxt-Dggtpeixi-Vzsvajw H mb (Mustapha) 7-7-1.5 gram powder in packet Discontinued 1 NMA PO TWICE A DAY 60 March 17, 2021 12:00am May 27, 2021 10:05am Start: 03-17-2021 End: 05-27-2021 Yvypcqrk-Umiakkfxn-Pkfpzvz H mb (Mustapha) 7-7-1.5 gram powder in packet Discontinued 1 EACH PO TWICE A DAY 60 March 16, 2021 11:00pm May 27, 2021 9:05am Start: 03-17-2021 End: 05-27-2021 Ghxvgyek-Vqinecyse-Opuizcy H mb (Mustapha) 7-7-1.5 gram powder in packet Discontinued 1 EACH PO TWICE A DAY 60 March 17, 2021 12:00am May 27, 2021 10:05am ascorbic acid 1000 mg extended release oral tablet (20 sources) Vitamin C Start: 06-01-2022 End: 04-22-2024 take 1 tablet by mouth once daily Ascorbic Acid (Vitamin C) (Vitamin C) 1,000 mg Tablet Extended Release Discontinued 1000 mg PO DAILY June 01, 2022 12:00am April 22, 2024 11:47pm Supplement Take with Iron supplement End: 07-03-2024 take 1 tablet by mouth in the morning Ascorbic Acid (vitamin C) 1000 MG tablet Take 1,000 mg by mouth in the morning. 07/03/2024 Discontinued Comment on above: Take 1,000 mg by [facility] once daily. 12 hr buPROPion hydrochloride 90 mg / naltrexone hydrochloride 8 mg extended release oral tablet (20 sources) Opioid Antagonist, Aminoketone Start: 11-16-2017 End: 10-25-2019 Naltrexone-Bupropion (Contrave) 8-90 mg tablet extended release Discontinued 2 {tbl} PO TWICE A DAY 0 November 16, 2017 1:00am October 25, 2019 3:57pm Start: 11-05-2015 take 2 tablets by [facility] twice daily CONTRAVE 8-90 MG [id number] Two tablets by mouth twice daily NALTREXONE-BUPROPION HCL [id number] Kylee Burr PA-C Start: 11-05-2015 take 2 tablets by [facility] twice daily CONTRAVE 8-90 MG [id number] Two tablets by mouth twice daily NALTREXONE-BUPROPION HCL [id number] Kylee Burr PA-C calcium carbonate 1500 mg oral tablet (20 sources) Start: 11-24-2021 End: 04-22-2024 take 1 tablet by mouth once daily Calcium Carbonate 600 mg calcium (1,500 mg) tablet Discontinued 600 mg PO DAILY November 24, 2021 1:00am April 22, 2024 11:47pm supplement Comment on above: Take 600 mg by mouth once daily. carbidopa 25 mg / levodopa 100 mg oral tablet (20 sources) Aromatic Amino Acid Decarboxylation Inhibitor, Aromatic Amino Acid Start: 12-17-2023 End: 01-17-2025 Carbidopa-Levodopa 25-100 mg tablet Discontinued 2 {tbl} PO 4 TIMES DAILY December 17, 2023 12:00am January 17, 2025 5:28pm Start: 12-17-2023 take 2 tablets by [facility] four times daily Carbidopa-Levodopa Active 2 TABLET PO 4 TIMES DAILY December 17, 2023 12:00am Start: 10-19-2023 carbidopa-levo dopa (Sinemet) 25-100 MG tablet Indications: Parkinson's disease (CMS/HCC) Take 2 pills at 9a, 2p, 6p, and one pill at bedtime 630 tablet 2 04/05/2024 Active cholecalciferol 0.01 mg oral capsule (20 sources) Vitamin D Start: 10-25-2019 End: 11-24-2021 take 1 capsule by mouth once daily Cholecalciferol (Vitamin D3) 400 unit capsule Discontinued 400 U PO DAILY October 25, 2019 1:00am November 24, 2021 11:58am Supplement cyclobenzaprine hydrochloride 10 mg oral tablet (20 sources) Muscle Relaxant Start: 11-16-2017 End: 10-25-2019 take 1 tablet by mouth twice daily Cyclobenzaprine 10 MG tablet Discontinued 10 mg PO TWICE A DAY November 16, 2017 6:30pm October 25, 2019 3:56pm Start: 05-01-2015 End: 04-27-2016 take 1 tablet by mouth twice daily CYCLOBENZAPRINE HCL 10 MG TABS One tablet by mouth twice daily CYCLOBENZAPRINE HCL [id number] Luis Felipe Garzon MD Start: 09-29-2013 End: 11-16-2017 take 5 mg by mouth twice daily Cyclobenzaprine 10 MG tablet Discontinued 5 mg PO TWICE A DAY September 29, 2013 1:00am November 16, 2017 6:34pm Start: 09-29-2013 End: 11-16-2017 take 5 mg by mouth twice daily Cyclobenzaprine Discontinued 5 MG PO TWICE A DAY September 29, 2013 1:00am November 16, 2017 6:34pm Start: 02-22-2013 take 1 tablet by toney once daily cyclobenzaprine (FLEXERIL) 10 mg tablet Take 1 tablet by mouth once daily. 0 02/22/2013 Active Comment on above: Take 1 tablet by toney once daily. docusate sodium 100 mg oral capsule (20 sources) Start: 03-04-2016 End: 11-16-2017 take 1 capsule by mouth once daily Docusate Sodium 100 MG capsule Discontinued 100 mg PO DAILY 20 0 March 04, 2016 12:00am November 16, 2017 6:34pm doxycycline monohydrate 100 mg oral capsule (20 sources) Tetracycline-cla ss Drug Start: 02-14-2021 End: 03-11-2021 take 1 capsule by mouth twice daily Doxycycline Monohydrate 100 mg capsule Discontinued 100 mg PO TWICE A DAY 2021 3:45pm March 11, 2021 8:31pm Antibiotic Start: 02-13-2021 End: 2021 take 1 capsule by mouth twice daily Doxycycline Hyclate 100 mg Capsule Discontinued 100 mg PO TWICE A DAY February 13, 2021 12:00am 2021 8:38am ferrous sulfate 325 mg oral tablet (20 sources) Start: 06-01-2022 End: 01-17-2025 take 1 tablet by mouth once daily Ferrous Sulfate 325 mg (65 mg iron) Tablet Discontinued 325 mg PO DAILY September 12, 2022 1:00am January 17, 2025 5:26pm supplement Comment on above: Take 325 mg by mouth once daily. furosemide 40 mg oral tablet (20 sources) Loop Diuretic Start: 11-10-2017 End: 10-25-2019 take 1 tablet by mouth once daily Furosemide 40 mg tablet Discontinued 40 mg PO daily November 10, 2017 1:00am October 25, 2019 3:57pm Start: 05-07-2017 End: 11-05-2015 take 1 tablet by mouth once daily FUROSEMIDE 40 MG TABS One tablet by mouth daily FUROSEMIDE [id number] Luis Felipe Garzon MD End: 11-05-2015 take 1 tablet by mouth once daily furosemide (LASIX) 40 mg tablet Take 40 mg by mouth once daily. 0 Active Comment on above: Take 40 mg by mouth once daily. hydroCHLOROthiazide 12.5 mg / lisinopril 20 mg oral tablet (20 sources) Thiazide Diuretic, Angiotensin Converting Enzyme Inhibitor Start: 014 End: 018 take 1 tablet by mouth once daily Lisinopril-Hydrochl orothiazide Discontinued 1 TABLET PO DAILY September 29, 2013 1:00am November 16, 2017 6:33pm Start: 10-11-2012 End: 09-06-2014 take 1 tablet by mouth once daily PRINZIDE 20-12.5 MG TABS One tablet by m outh daily LISINOPRIL-HYDROCHLOROTHIAZIDE [id number] Kylee Burr PA-C Start: 10-11-2012 take 1 tablet by toney th once daily PRINZIDE 20-12.5 MG TABS One tablet by m outh daily LISINOPRIL-HYDROCHLOROTHIAZIDE [id number] Padmini Simmons RN Start: 10-11-2012 End: 09-06-2014 take 1 tablet by mouth once daily PRINZIDE 20-12.5 MG TABS One tablet by m outh daily LISINOPRIL-HYDROCHLOROTHIAZIDE [id number] Kylee Burr PA-C Start: 10-11-2012 take 1 tablet by toney th once daily PRINZIDE 20-12.5 MG TABS One tablet by m outh daily LISINOPRIL-HYDROCHLOROTHIAZIDE [id number] Padmini Simmons RN Start: 03-20-2011 End: 11-16-2017 Lisinopril-Hydrochlorothiazi de 1 TABLET tablet Discontinued 1 {tbl} PO DAILY September 29, 2013 1:00am November 16, 2017 6:33pm take 1 tablet by toney th once daily PRINZIDE 20-12.5 MG TABS One tablet by m outh daily LISINOPRIL-HYDROCHLOROTHIAZIDE [id number] Zachary Cardenas Comment on above: Take 1 tablet by toney th once daily. hydroCHLOROthiazide 12.5 mg / valsartan 320 mg oral tablet (20 sources) Thiazide Diuretic, Angiotensin 2 Receptor Valentina Start: 05-27-2021 End: 06-12-2022 Valsartan-Hydrochlorot hiazide 320-12.5 mg tablet Discontinued 1 {tbl} PO DAILY May 27, 2021 12:00am June 12, 2022 1:49pm bp Start: 05-27-2021 End: 06-12-2022 take 1 tablet by mouth once daily Valsartan-Hydrochlorothiazide Discontinu ed 1 TABLET PO DAILY May 27, 2021 12:00am June 12, 2022 1:49pm Start: 09-09-2020 End: 2021 Valsartan-Hydrochlorothiazid e 320-12.5 mg tablet Discontinued 1 {tbl} PO DAILY September 09, 2020 1:00am 2021 8:38am Start: 09-09-2020 End: 2021 take 1 tablet by mouth once daily Valsartan-Hydrochlorothiazide Discontinu ed 1 TABLET PO DAILY September 09, 2020 1:00am 2021 8:38am levocetirizine dihydrochloride 5 mg oral tablet (20 sources) Histamine-1 Receptor Antagonist Start: 09-29-2013 End: 01-17-2025 take 1 tablet by mouth once daily Levocetirizine 5 mg tablet Discontinued 5 mg PO DAILY December 17, 2023 12:00am January 17, 2025 5:28pm take 10 mg by mouth once daily L EVOCETIRIZINE DIHYDROCHLORIDE (XYZAL ORAL) Indications: DVT (deep venous thrombosis) (HCC) , Coagulation defect (HCC) Take 10 mg by mouth once daily. 0 Active Comment on above: Take 10 mg by mouth once daily. levoFLOXacin 500 mg oral tablet (20 sources) Quinolone Antimicrobial Start: End: take 1 tablet by mouth once daily Levofloxacin 500 mg tablet Discontinued 500 mg PO DAILY 2021 3:45pm March 11, 2021 8:32pm Antibiotic losartan potassium 50 mg oral tablet (20 sources) Angiotensin 2 Receptor Valentina Start: 022 End: take 1 tablet by mouth once daily Losartan 50 mg Tablet Discontinued 50 mg PO DAILY 30 0 June 12, 2022 12:00am December 17, 2023 11:19pm Comment on above: Take 50 mg by mouth once daily. metoclopramide 5 mg oral tablet (7 sources) Dopamine-2 Receptor Antagonist Start: 025 End: 025 take 1 tablet by mouth 30 minutes before mealtime Metoclopramide Hcl 5 mg tablet Discontinued 5 mg PO before meals 42 14 0 December 28, 2024 12:00am January 10, 2025 12:00am January 11, 2025 12:07am administer 30 minutes before meals metOLazone 5 mg oral tablet (9 sources) Thiazide-like Diuretic take 1 tablet by mouth once daily metOLAzone 5 mg tablet Indications: DVT (deep venous thrombosis) (HCC) , Coagulation defect (HCC) Take 5 mg by mouth once daily. 0 Active Comment on above: Take 5 mg by mouth o nce daily. metoprolol tartrate 50 mg oral tablet (20 sources) beta-Adrenergic Valentina Start: 013 take 1 tablet by mouth twice daily METOPROLOL TARTRATE 25 MG TABS One tablet by mouth twice daily METOPROLOL TARTRATE [id number] Luis Felipe Garzon MD Start: 10-19-2012 End: 06-08-2017 METOPROLOL TARTRATE 25 MG TA BS 1/2 tablet by mouth twice daily x 1 week then 1/2 tablet by mouth every other day for 1 week then STOP METOPROLOL TARTRATE [id number] Mary Abreu Start: 03-20-2011 End: 11-16-2017 take 1 tablet by mouth twice daily Metoprolol Tartrate 50 MG tablet Discontinued 50 mg PO TWICE A DAY September 29, 2013 1:00am November 16, 2017 6:33pm Comment on above: Take 1 tablet by toney twice daily. montelukast 10 mg oral tablet (20 sources) Leukotriene Receptor Antagonist Start: End: 5 take 1 tablet by mouth once daily Montelukast 10 MG tablet Discontinued 10 mg PO DAILY September 29, 2013 1:00am January 17, 2025 5:29pm Allergies Comment on above: Take 1 tablet by toney th once daily. multivitamin tablet (9 sources) take 1 tablet by mouth once daily multivitamin tablet Take 1 tablet by mouth once daily. 0 Active Comment on above: Take 1 tablet by toney th once daily. polyethylene glycol [id number] mg powder for oral solution (20 sources) Osmotic Laxative Start: 2 End: 4 take 17 g by mouth once daily Polyethylene Glycol 3350 17 gram powder in packet Discontinued 17 g PO DAILY September 18, 2022 1:00am December 17, 2023 11:22pm Start: 06-01-2022 End: 06-01-2022 take 17 g by mouth once daily Polyethylene Glycol 3350 17 gram Powder In Packet Discontinued 17 g PO DAILY 0 0 June 01, 2022 12:00am June 01, 2022 4:39pm Comment on above: Take 17 g by mouth o nce daily. Dissolve dose in 4 - 8 ounces of liquid and take as directed. microencapsulated potassium chloride 20 meq extended release oral tablet (20 sources) Start: 12-17-19 End: 01-19-20 take 1 tablet by mouth once daily Potassium Chloride 20 mEq tablet,ER particles/crystals Discontinued 40 meq PO DAILY 0 30 0 April 23, 2024 12:38pm January 17, 2025 5:29pm 40 mEq, 2 tablet daily for 1 week and then 20 mEq, 1 tablet once daily. Start: 01-06-2023 take 1 tablet by toney th in the morning potassium chloride CR (K-Tab) 20 MEQ ER tablet Take 20 mEq by mouth in the morning. 01/06/2023 Active Start: 06-12-2022 take 20 mEq by mouth once dominick y Potassium Chloride Active 20 MEQ PO DAILY June 11, 2022 11:00pm Start: 09-29-2013 End: 06-12-2022 take 1 tablet by mouth twice daily Potassium Chloride 20 MEQ tablet Discontinued 20 meq PO TWICE A DAY September 29, 2013 1:00am June 12, 2022 1:51pm Supplement Start: 07-26-2013 take 1 tablet by toney th twice daily POTASSIUM CHLORIDE ER 10 MEQ CR-TABS One tablet by mouth twice daily POTASSIUM CHLORIDE [id number] Luis Felipe Garzon MD Start: 07-26-2013 take 1 tablet by toney th twice daily KLOR-CON M20 20 MEQ CR-TABS One tablet by mouth twice daily POTASSIUM CHLORIDE SWATHI CR [id number] Luis Felipe Garzon MD Start: 10-19-2012 End: 07-26-2013 take 1 tablet by mouth twice daily KLOR-CON M20 20 MEQ CR-TABS One tablet by mouth twice daily POTASSIUM CHLORIDE SWATHI CR [id number] Luis Felipe Garzon MD Start: 10-19-2012 take 1 tablet by toney th twice daily KLOR-CON M20 20 MEQ CR-TABS One tablet by mouth twice daily POTASSIUM CHLORIDE SWATHI CR [id number] Luis Felipe Garzon MD Start: 10-19-2012 End: 07-26-2013 take 1 tablet by mouth twice daily KLOR-CON M20 20 MEQ CR-TABS One tablet by mouth twice daily POTASSIUM CHLORIDE SWATHI CR [id number] Kylee Burr PA-C Start: 03-20-2011 potassium chlo ride ER (K-DUR, KLOR-CON) 20 mEq tablet Indications: DVT (deep venous thrombosis) (HCC) Take 20 mEq by mouth once daily. 0 03/20/2011 Active Comment on above: Take 20 mEq by mouth once daily. 1000 ml potassium chloride 0.02 meq/ml / sodium chloride 9 mg/ml injection (5 sources) take 1 tablet by mouth twice daily POTASSIUM CHLORIDE IN NACL 20-0.9 MEQ/L-% SOLN One tablet by mouth twice daily POTASSIUM CHLORIDE IN NACL [id number] Zachary Layne Cardenas pravastatin sodium 40 mg oral tablet (20 sources) HMG-CoA Reductase Inhibitor Start: 4 End: 8 take 2 tablets by mouth once daily Pravastatin 40 MG tablet Discontinued 80 mg PO DAILY September 29, 2013 1:00am November 16, 2017 6:32pm Start: 09-29-2013 End: 11-16-2017 take 80 mg by mouth once daily Pravastatin Discontinue d 80 MG PO DAILY September 29, 2013 1:00am November 16, 2017 6:32pm Start: 03-20-2011 End: 11-24-2021 take 1 tablet by mouth at bedtime Pravastatin 80 mg tablet Discontinued 80 mg PO AT BEDTIME November 16, 2017 1:00am November 24, 2021 11:58am Cholestrol Comment on above: Take 1 tablet by toney th daily at bedtime. prochlorperazine 5 mg oral tablet (18 sources) Phenothiazine Start: 2024 End: 2024 take 1 tablet by mouth three times daily as needed for nausea and vomiting Prochlorperazine Maleate 5 mg tablet Discontinued 5 mg PO THREE TIMES A DAY as needed for nausea and vomiting 42 14 0 December 28, 2024 12:00am January 10, 2025 12:00am January 11, 2025 12:07am Start: 12-21-2023 End: 07-31-2024 take 1 tablet by mouth three times daily for nausea and vomiting prochlorperazine (Compazine) 5 MG tablet take 1 tablet by mouth three times a day if needed for nausea and vomiting 12/21/2023 07/31/2024 Discontinued promethazine hydrochloride 12.5 mg oral tablet (20 sources) Phenothiazine Start: 09-12-2024 End: 12-28-2024 take 1 tablet by mouth three times daily as needed for nausea and vomiting Promethazine 12.5 mg tablet Discontinued 12.5 mg PO THREE TIMES A DAY as needed for nausea and vomiting 30 1 December 12, 2024 6:33am December 28, 2024 1:40pm Start: 2021 End: 03-11-2021 take 1 tablet by mouth every four hours as needed for nausea Promethazine 25 mg Tablet Discontinued 25 mg PO EVERY 4 HOURS NEEDED as needed for NAUSEA/VOMITING 0 0 2021 12:00am March 11, 2021 8:33pm rimegepant 75 mg disintegrating oral tablet (9 sources) Start: 01-18-2025 End: 05-31-2025 take 1 tablet by mouth once as needed for headache Rimegepant (Nurtec Odt) 75 mg tablet,disintegrating Discontinued 75 mg PO ONCE as needed for migraine headache January 18, 2025 12:00am May 31, 2025 9:55am as a single dose Start: 08-31-2024 Rimegepant Sul fate (Nurtec) 75 MG tablet dispersible Indications: Migraine Take 1 tablet as need for migraine. Max of 1 tablet in 24 hours. 8 tablet 08/31/2024 Active sennosides, fci 8.6 mg oral tablet (20 sources) Start: 2021 End: 03-11-2021 take 1 tablet by mouth twice daily Sennosides (Ora-Don) 8.6 mg tablet Discontinued 1 {tbl} PO TWICE A DAY 2021 3:45pm March 11, 2021 8:33pm Constipation sucralfate 1000 mg oral tablet (6 sources) Aluminum Complex Start: 2025 End: 05-31-2025 take 1 tablet by mouth twice daily Sucralfate (Carafate) 1 gram tablet Discontinued 1 g PO TWICE A DAY 90 0 April 10, 2025 10:33am May 31, 2025 9:56am 24 hr verapamil hydrochloride 120 mg extended release oral capsule (20 sources) Calcium Channel Valentina Start: 12-20-2023 End: 04-22-2024 take 1 capsule by mouth once daily Verapamil 120 mg capsule,ext rel. pellets 24 hr Discontinued 120 mg PO DAILY 30 December 20, 2023 12:00am April 22, 2024 11:51pm Start: 11-25-2022 take 1 capsule by mo uth once daily Start: 09-29-2013 End: 12-20-2023 take 1 capsule by mouth once daily Verapamil 240 MG capsule,ext rel. pellets 24 hr Discontinued 240 mg PO DAILY 30 June 12, 2022 1:55pm December 20, 2023 3:34pm BP Start: 03-15-2013 take 1 tablet by toney th once daily VERAPAMIL SR 120 mg CR tablet Indications: DVT (deep venous thrombosis) (HCC) , Coagulation defect (HCC) Take 120 mg by mouth once daily. 0 03/15/2013 Active Comment on above: Take 120 mg by mouth once daily. Take 240 mg by mouth once daily. vilazodone hydrochloride 20 mg oral tablet (20 sources) Start: 11-16-2017 End: 11-17-2017 take 1 tablet by mouth once daily Vilazodone (Viibryd) 20 mg tablet Discontinued 20 mg PO daily November 16, 2017 1:00am November 17, 2017 11:30am Start: 05-07-2017 take 1 tablet by toney th once daily VIIBRYD 20 MG TABS One tablet by mouth daily VILAZODONE HCL [id number] Luis Felipe Garzon MD warfarin sodium 1 mg oral tablet (20 sources) Vitamin K Antagonist Start: 09-15-2013 warfarin (COUMADIN) 1 mg tablet Take 3mg (three tablets) daily as directed. 90 tablet 5 09/15/2013 Active Start: 01-16-2013 End: 04-27-2016 COUMADIN 1 MG TABS take as d irected - Dr Shine polk, current dose 3.5 mg daily WARFARIN SODIUM [id number] Luis Felipe Garzon MD Start: 10-11-2012 End: 10-24-2012 take 1 tablet by mouth once daily COUMADIN 4 MG TABS One tablet by mouth daily managed per Dr Radford WARFARIN SODIUM [id number] Olamide Dominguez RN End: 10-24-2012 WARFARIN SODIUM 1 MG TABS 1/ 2 tab once a day WARFARIN SODIUM [id number] Olamide Dominguez RN Comment on above: Take 3mg (three tabl ets) daily as directed. zolpidem tartrate 10 mg oral tablet (20 sources) gamma-Aminobutyric Acid-ergic Agonist Start: 03-20-2011 End: 10-03-2020 take 1 tablet by mouth at bedtime as needed for sleep Zolpidem 10 MG tablet Discontinued 10 mg PO AT BEDTIME NEEDED as needed for Sleep September 29, 2013 1:00am October 03, 2020 4:38pm Comment on above: Take 1 tablet by toney th at bedtime as needed. FOR INSOMNIA Problems Active Problems Problem Classification Problem Date Documented Da te Episodic/Chronic Abdominal hernia (9 sources) Hiatal hernia; Translations: [Diaphragmatic hernia without obstruction or gangrene] Onset: 4 07-31-2024 Episodic Acute posthemorrhagic anemia (20 sources) Anemia following acute postoperative blood loss; Translations: [Acute posthemorrhagic anemia] Episodic Adjustment disorders (19 sources) Stress; Translations: [Reaction to severe stress, unspecified] Onset: 4 01-17-2024 Chronic Administrative/social admission (2 sources) Stress 07-03-2024 Episodic Allergic reactions (3 sources) Allergic condition; Translations: [Allergy, unspecified, initial encounter] Episodic Anxiety disorders (20 sources) Anxiety; Translations: [Anxiety disorder, unspecified] Chronic Biliary tract disease (19 sources) Cholangiectasis; Translations: [Other specified diseases of biliary tract] Onset: 5 05-26-2024 Chronic Blindness and vision defects (20 sources) Disorder of vision; Translations: [Unspecified visual loss] Chronic Cardiac dysrhythmias (20 sources) Atrial fibrillation; Translations: [Permanent atrial fibrillation ] Onset: 3 10-19-2012 Chronic Cataract (20 sources) Cataract; Translations: [Unspecified cataract] Chronic Chronic kidney disease (20 sources) Chronic kidney disease; Translations: [Chronic kidney disease, unspecified] Chronic Chronic ulcer of skin (20 sources) Ulcer of lower extremity; Translations: [Non-pressure 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] 06-01-2022 Chronic Coagulation and hemorrhagic disorders (20 sources) Factor V deficiency; Translations: [Hereditary deficiency of other clotting factors] Onset: 1 Chronic Deficiency and other anemia (20 sources) Iron deficiency anemia due to blood loss; Translations: [Iron deficiency anemia secondary to blood loss (chronic)] Onset: 2 Chronic Deficiency and other anemia (8 sources) Iron deficiency anemia secondary to blood loss (chronic); Translations: [Iron deficiency anemia secondary to blood loss (chronic)] Onset: 2 Chronic Deficiency and other anemia (20 sources) Anemia; Translations: [Anemia, unspecified] 06-04-2022 Episodic Deficiency and other anemia (1 source) Anemia, unspecified; Translations: [Anemia, unspecified] Episodic Delirium, dementia, and amnestic and other cognitive disorders (16 sources) Postconcussion syndrome; Translations: [Postconcussional syndrome] 12-18-2023 Chronic Disorders of lipid metabolism (20 sources) Hyperlipidemia; Translations: [Hyperlipidemia, unspecified] Onset: 3 10-11-2012 Chronic E Codes: Fall (20 sources) Fall in home; Translations: [Unspecified fall, initial encounter] Episodic Esophageal disorders (20 sources) Gastroesophageal reflux disease; Translations: [Gastro-esophageal reflux disease without esophagitis] Chronic Essential hypertension (20 sources) Benign hypertension; Translations: [Hypertensive disorder] Onset: 3 Resolved: 6 04-23-2016 Chronic Fluid and electrolyte disorders (20 sources) Hypokalemia; Translations: [Hypokalemia] 06-01-2022 Episodic Fracture of neck of femur (hip) (20 sources) Closed fracture of hip; Translations: [Fracture of unspecified part of neck of left femur, initial encounter for closed fracture] Episodic Gangrene (20 sources) Skin necrosis; Translations: [Gangrene, not elsewhere classified] 06-01-2022 Episodic Comment on above: hematoma laceration left anterolateral leg with skin necrosis Gastrointestinal hemorrhage (10 sources) Melena; Translations: [Melena] Episodic Headache; including migraine (20 sources) Migraine; Translations: [Migraine, unspecified, not intractable, without status migrainosus] Onset: 3 Chronic Comment on above: Currently on Depakot e and Emgality Headache; including migraine (12 sources) Headache; Translations: [Headache] Onset: 4 07-31-2024 Episodic Intracranial injury (20 sources) Concussion injury of body structure; Translations: [Concussion] 12-03-2023 Episodic Malaise and fatigue (20 sources) Fatigue; Translations: [Asthenia] Onset: 3 Resolved: 6 10-11-2012 Episodic Mood disorders (20 sources) Depressive disorder; Translations: [Depression] Chronic Nutritional deficiencies (20 sources) Undernutrition; Translations: [Unspecified protein-calorie malnutrition] Chronic Open wounds of extremities (20 sources) Open wound of lower limb with complication; Translations: [Open wound of lower leg with complication] Onset: 2 Resolved: 6 06-03-2012 Episodic Comment on above: open surgical hemato ma wound left anterolateral leg left anterolateral l eg with skin necrosis Osteoarthritis (20 sources) Arthritis; Translations: [Unspecified osteoarthritis, unspecified site] Chronic Other acquired deformities (20 sources) Scoliosis of lumbar spine; Translations: [Scoliosis, unspecified] 06-01-2022 Chronic Other acquired deformities (1 source) Scoliosis, unspecified; Translations: [Scoliosis [and kyphoscoliosis], idiopathic] Chronic Other acquired deformities (20 sources) Spondylolisthesis; Translations: [Spondylolisthesis, site unspecified] 06-01-2022 Episodic Other acquired deformities (1 source) Spondylolisthesis, site unspecified; Translations: [Spondylolisthesis] Episodic Other aftercare (10 sources) Other icing and glaze maker (current) drug therapy; Translations: [Long-term (current) use of other medications] Onset: 7 10-27-2016 Episodic Other aftercare (20 sources) H/O: high risk medication; Translations: [Other icing and glaze maker (current) drug therapy] 06-01-2022 Episodic Comment on above: Apixaban Other aftercare (12 sources) Long-term current use of anticoagulant; 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] 12-17-2023 Episodic Other aftercare (3 sources) 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; Translations: [Long-term (current) use of anticoagulants] 12-20-2023 Episodic Other bone disease and musculoskeletal deformities (20 sources) Segmental and somatic dysfunction; Translations: [Segmental and somatic dysfunction of lumbar region] 06-01-2022 Episodic Other bone disease and musculoskeletal deformities (1 source) Segmental and somatic dysfunction of lumbar region; Translations: [Nonallopathic lesions, lumbar region] Episodic Other bone disease and musculoskeletal deformities (1 source) Segmental and somatic dysfunction of pelvic region; Translations: [Nonallopathic lesions, pelvic region] Episodic Other bone disease and musculoskeletal deformities (1 source) Segmental and somatic dysfunction of thoracic region; Translations: [Nonallopathic lesions, thoracic region] Episodic Other bone disease and musculoskeletal deformities (20 sources) Osteopenia; Translations: [Other specified disorders of bone density and structure, unspecified site] 06-01-2022 Episodic Other bone disease and musculoskeletal deformities (6 sources) Other specified disorders of bone density and structure, unspecified site; Translations: [Disorder of bone and cartilage, unspecified] Episodic Other circulatory disease (12 sources) H/O: atrial fibrillation; Translations: [Personal history of other diseases of the circulatory system] 12-17-2023 Episodic Other circulatory disease (3 sources) Personal history of other diseases of the circulatory system; Translations: [Personal history of other diseases of circulatory system] 12-20-2023 Episodic Other connective tissue disease (20 sources) History of repair of hip joint; Translations: [Presence of left artificial hip joint] 06-04-2022 Chronic Other connective tissue disease (6 sources) Presence of left artificial hip joint; Translations: [Hip joint replacement] Chronic Other connective tissue disease (1 source) History of hemiarthroplasty of left hip; Translations: [Presence of left artificial hip joint] 06-04-2022 Chronic Other connective tissue disease (20 sources) Monoparesis - leg; Translations: [Other symptoms and signs involving the musculoskeletal system] 09-12-2022 Episodic Other connective tissue disease (5 sources) Other symptoms and signs involving the musculoskeletal system; Translations: [Other musculoskeletal symptoms referable to limbs] Episodic Other connective tissue disease (18 sources) Quadriceps weakness; Translations: [Muscle weakness (generalized)] 11-18-2022 Episodic Other connective tissue disease (2 sources) Muscle weakness (generalized); Translations: [Muscle weakness (generalized)] 11-18-2022 Episodic Other diseases of kidney and ureters (20 sources) Acute renal insufficiency; Translations: [Disorder of kidney and ureter, unspecified] 02-25-2021 Episodic Other ear and sense organ disorders (3 sources) Hearing disorder; Translations: [Unspecified hearing loss, unspecified ear] Chronic Other ear and sense organ disorders (20 sources) Presbycusis; Translations: [Presbycusis, bilateral] 06-21-2022 Episodic Other ear and sense organ disorders (2 sources) Presbycusis, bilateral; Translations: [Presbyacusis] Episodic Other gastrointestinal disorders (11 sources) Malabsorption - iron; Translations: [Intestinal malabsorption, unspecified] Onset: 2 Chronic Other gastrointestinal disorders (1 source) Intestinal malabsorption, unspecified; 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] Onset: 2 Chronic Other gastrointestinal disorders (20 sources) Diarrhea; Translations: [Diarrhea, unspecified] 06-01-2022 Episodic Other gastrointestinal disorders (20 sources) Occult blood in stools; Translations: [Other fecal abnormalities] 06-02-2022 Episodic Other gastrointestinal disorders (20 sources) Constipation; Translations: [Constipation, unspecified] Onset: 4 07-31-2024 Episodic Other gastrointestinal disorders (8 sources) Acute diarrhea; Translations: [Diarrhea, unspecified] 04-29-2024 Episodic Other injuries and conditions due to external causes (20 sources) Injury of head; Translations: [Unspecified injury of head, initial encounter] 09-16-2020 Episodic Other injuries and conditions due to external causes (3 sources) Injury of left leg; Translations: [Unspecified injury of left lower leg, initial encounter] Episodic Other injuries and conditions due to external causes (13 sources) Hematoma; Translations: [Other injury of unspecified body region, initial encounter] 12-03-2023 Episodic Other injuries and conditions due to external causes (13 sources) Closed injury of head; Translations: [Unspecified injury of head, initial encounter] 12-03-2023 Episodic Other nervous system disorders (12 sources) Unable to walk; Translations: [Difficulty in walking, not elsewhere classified] 12-17-2023 Chronic Other nervous system disorders (4 sources) Difficulty in walking, not elsewhere classified; Translations: [Difficulty in walking] 12-20-2023 Chronic Other nervous system disorders (19 sources) Neuropathy; Translations: [Polyneuropathy, unspecified] Onset: 4 07-03-2024 Chronic Other nervous system disorders (20 sources) Paresthesia of right lower limb; Translations: [Paresthesia of skin] 09-12-2022 Episodic Other nervous system disorders (4 sources) Paresthesia of skin; Translations: [Disturbance of skin sensation] Episodic Other nervous system disorders (12 sources) H/O: brain disorder; Translations: [Personal history of other diseases of the nervous system and sense organs] 12-17-2023 Episodic Other nervous system disorders (3 sources) Personal history of other diseases of the nervous system and sense organs; Translations: [Personal history of other disorders of nervous system and sense organs] 12-20-2023 Episodic Other non-traumatic joint disorders (13 sources) Knee joint effusion; Translations: [Effusion, unspecified knee] 12-03-2023 Episodic Other nutritional; endocrine; and metabolic disorders (18 sources) Body mass index (BMI) 40.0-44.9, adult; Translations: [Body mass index (BMI) 50-59.9 , adult] Onset: 4 05-07-2017 Chronic Other nutritional; endocrine; and metabolic disorders (1 source) Body mass index (BMI) 50-59.9 , adult; Translations: [Body mass index (BMI) 50-59.9 , adult] Onset: 4 03-15-2014 Chronic Other nutritional; endocrine; and metabolic disorders (1 source) Body mass index (BMI) 39.0-39.9, adult; Translations: [Body mass index (BMI) 39.0-39.9, adult] Onset: 4 10-27-2016 Chronic Other nutritional; endocrine; and metabolic disorders (20 sources) Morbid obesity; Translations: [Morbid (severe) obesity due to excess calories] 09-16-2020 Chronic Other nutritional; endocrine; and metabolic disorders (6 sources) Body mass index 30+ - obesity; Translations: [Body mass index (BMI) 32.0-32.9, adult] 01-17-2025 Chronic Other nutritional; endocrine; and metabolic disorders (9 sources) Weight loss; Translations: [Abnormal weight loss] Onset: 4 07-31-2024 Episodic Other upper respiratory disease (20 sources) Allergic rhinitis; Translations: [Allergic rhinitis, unspecified] 06-01-2022 Chronic Phlebitis; thrombophlebitis and thromboembolism (1 source) 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; Translations: [Chronic embolism and thrombosis of unspecified deep veins of lower extremity, bilateral] Chronic Phlebitis; thrombophlebitis and thromboembolism (20 sources) Deep venous thrombosis; Translations: [Acute embolism and thrombosis of unspecified deep veins of unspecified lower extremity] Onset: 1 03-20-2011 Episodic Residual codes; unclassified (20 sources) Obstructive sleep apnea syndrome; Translations: [Obstructive sleep apnea (adult) (pediatric)] Onset: 3 06-21-2022 Chronic Residual codes; unclassified (2 sources) Obstructive sleep apnea (adult) (pediatric); Translations: [Obstructive sleep apnea (adult)(pediatric)] Chronic Residual codes; unclassified (20 sources) FH: Hypertension; Translations: [Family history of ischemic heart disease and other diseases of the circulatory system] 09-06-2014 Episodic Residual codes; unclassified (20 sources) Family history of stroke; Translations: [Family history of stroke] 09-06-2014 Episodic Residual codes; unclassified (20 sources) Insomnia; Translations: [Insomnia, unspecified] Onset: 4 06-01-2022 Episodic Skin and subcutaneous tissue infections (20 sources) Cellulitis of lower leg; Translations: [Cellulitis of left lower limb] 06-01-2022 Episodic Comment on above: secondary to hematom a laceration and skin necrosis Spondylosis; intervertebral disc disorders; other back problems (6 sources) Inflammation of sacroiliac joint; Translations: [Sacroiliitis, not elsewhere classified] 01-17-2025 Chronic Spondylosis; intervertebral disc disorders; other back problems (20 sources) Backache; Translations: [Dorsalgia, unspecified] Onset: 4 Episodic Superficial injury; contusion (20 sources) Hematoma of left lower leg; Translations: [Contusion of left lower leg, initial encounter] Episodic Comment on above: left anterolateral l eg with skin necrosis Syncope (20 sources) Vasovagal symptom; Translations: [Syncope and collapse] 06-01-2022 Episodic Thyroid disorders (6 sources) Thyroid nodule; Translations: [Nontoxic single thyroid nodule] 01-17-2025 Chronic Unclassified (20 sources) Parkinson's disease; Translations: [Parkinson's disease] Onset: 3 03-30-2023 Chronic Comment on above: As per neurology. Unclassified (20 sources) Family history of ischemic heart disease and other diseases of the circulatory system; Translations: [Edema] Onset: 3 Resolved: 6 03-15-2014 Episodic Comment on above: Male < 55 Unclassified (1 source) Long-term drug therapy; Translations: [Other icing and glaze maker (current) drug therapy] Onset: 7 10-27-2016 Unclassified (4 sources) I48.0 - Paroxysmal atrial fibrillation,K92.1 - Melena Past or Other Problems Problem Classification Problem Date Documented Da te Episodic/Chronic Nausea and vomiting (20 sources) Nausea; Translations: [Nausea] Onset: 2025 08-25-2024 Episodic Other gastrointestinal disorders (7 sources) Other fecal abnormalities; Translations: [Nonspecific abnormal findings in stool contents] Onset: 2025 Episodic Other gastrointestinal disorders (2 sources) Constipation, unspecified; Translations: [Constipation, unspecified] Onset: 01-25-2025 Episodic Other lower respiratory disease (10 sources) Dyspnea; Translations: [Shortness of breath] Onset: 10-19-2012 Resolved: 04-23-2016 04-23-2016 Episodic Other nervous system disorders (13 sources) Dysarthria; Translations: [Dysarthria and anarthria] Onset: 07-03-2024 07-03-2024 Episodic Residual codes; unclassified (2 sources) Edema; Translations: [Edema, unspecified] Onset: 10-11-2012 Resolved: 04-23-2016 10-11-2012 Episodic Residual codes; unclassified (13 sources) Amnesia; Translations: [Other amnesia] Onset: 07-03-2024 07-03-2024 Episodic Results Test Name Value Interpretation Reference Range Facility SP/Susan 07-18-2025 SP/HPCOOKIE [facility] [address] [place] [address]. [address] [place] [address] / REEVALUATION / MEDICARE RECERTIFICATION SPEECH THERAPY MR#: [id number] Acct: [id number] Name: VIOLA BENNETT Rep #: [id number] : 1950 75 From: Manuel Hill M.A., [facility] Referring Dr.: Dr. 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 See Past Medical History in chart for complete history. Medications related to this diagnosis: Pramipexole 1.5 mg 1x Taken at 7 am. Smoking Status: Never smoker Diagnosis Diagnosis: Dysphonia, Parkinson's Disease Pain Is pain an issue with your current prescribed condition?: No Personal Preferred language: Bermudian Patient Allergies Allergies Allergies: Allergies cefdinir Allergy (Verified 01/18/25 09:59) Hives diphenhydramine HCl (From Benadryl) Allergy (Verified 01/18/25 09:59) Hives Sulfa (Sulfonamide Antibiotics) Allergy (Verified 01/18/25 09:59) Hives Previous/Current Goals Goals 1-5 Previous Goal #1: Patient will sustain phonation for an average of 8-10 seconds on 4/5 trials on 2/3 consecutive sessions which will help increase vocal respiratory support for functional communication. 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 Goal 2 Status: Goal will be modified. Initially: Average of 60 dB Currently: 74 dB with minimal cues. Previous Goal #3: Patient will increase vocal loudness to reach a target sound pressure level of 65 dB SILK SCREEN PRINTER HELPER with 1 cue during reading at the word and sentence level, which will help increase vocal respiratory support for functional communication. Goal 3 Status: Goal will be modified. Initially: Average of 65 dB Currently: 72 dB with moderate cues. Previous Goal #4: Patient will increase vocal loudness to reach a target sound pressure level of 60 dB SILK SCREEN PRINTER HELPER with 2 cue during conversation for functional communication. Goal 4 Status: Goal will be modified. Initially: Average of 60.5 dB Currently: 66 dB Previous Goal #5: Evaluation of cognitive skills including but not limited to recall and goals added as appropriate. Goal 5 Status: Patient scored within normal limits on all subtests except for: Story Retelling (patient scored a 2; criterion cut score = 5) and Design Generation (patient scored a 2; criterion cut score = 5). Patient's scores indicated functioning that is within normal limits in the following cognitive domains: attention, executive functions, and visuospatial skills. Patient scored within the mild range for the following cognitive domain: memory (patient scored a 132; mild severity score range = 140-115). Patient scored within the moderate range for the following cognitive domain: language (patient scored 24; moderate severity score range = 24-16). Patient's Composite Severity Rating Range score was 3.6, indicating a severity rating of: within normal limits. Subjective Cog/Ling/Com Subjective Cognitive/Linguistic/Co mmunication: Patient reported that she is having more difficulty with recall such as things to get at the store. She stated she never used a list and now needs to write more down or else she doesn't recall. Subjective Voice Informal Questioner Do you scream (anger, sporting event, work, noisy envirmonment): Less than average Do you raise your voice (e.g. parenting, calling from room to room, etc.): Less than average Do you talk for long periods of time without a break (teacher, marte): Less than average Are you a talker: Average How often do you use the telephone: Less than average Do you do impersonations, character voices or unusual sound effects: None Intubation Was the Client intubated: No Objective Voice Date of Diagnosis Date of diagnosis: 2022 Previous Speech Therapy (If yes, describe): No Medications Familiar with on/off effect: Yes Implantation Deep brain implantation (If yes, answer next question): No Objective data Objective Data: Objective data: Sound pressure level (SPL acoustic correlation of vocal loudness) was measured with a sound level meter at a distance of 40 cm from the patient's mouth. Average conversational loudnes (more content not included)... Normal [facility] PT D/C Summary (1)on 025 PT D/C Summary (1) [facility] Physical Therapy [facility] [address] [facility] [place] [address] / REHABILITATION SERVICES DISCHARGE SUMMARY MR#: [id number] Acct: [id number] Name: VIOLA BENNETT Rep #: [id number] : 1950 75 From: Carline FITZGERALD Referring Dr.: Dr. Judd Rubio MD Status: REG RCR Insurance: MEDICARE PART A B [facility] Discharge Summary D/C summary: It has been my pleasure to treat VIOLA BENNETT referred by Dr. Judd Rubio MD, with the diagnosis of PD for a total of 10 visit(s). Discharge Date: 06/11/25 Please see the following information for a summary of their discharge status. Subjective Subjective: Pt is having a hard time walking heel to toe and she is struggling with L leg weakness. She broke her L hip a few years ago and the Dr said to watch it because they do not want her to break it again. She feels that she is better with her balance and some strength. She still walks with her walker out in front of her because she can get there faster. Overall Improvement % Improvement: 10 Objective Objective/Function: LE MMT: R hip flex 6.4 and L 6.7 R knee ext 6.9 and L 6.9 R knee flexion 7.4 and L 6.3 FGA: 10 with use of a rollator with horizontal and vertical head turns and turning 180 degrees sit to stand: able to get up without using her arms on second attempt Goals Goal 1:: I HEP Goal Progress: Progressing Goal 2:: Increase LE strength (LE MMT: R hip flex 5.4 and L 4.6 R knee ext 5.6 and L 4.5 R knee flexion 7.4 and L 6) Goal Progress: Progressing Goal 3:: Be able to walk 1 lap around dept with verbal cues to increase step length especially on the L LE (at the time of the eval 1 lap= 1 min and 4 seconds with rollator) Goal 4:: Increase balance (FGA was 7 at eval) Goal 5:: Be able to sit to stand X 10 with B UE on first attempt Goal Progress: Progressing Plan Plan: Pt to start the PD class and will be discharged form PT at this point D/C Information Discharge Comments: DC PT to PD class d/c sentence: If there are questions or concerns regarding this patient's physical therapy, please feel free to call me at [phone]. Thank you for the referral of this patient. Sincerely, Carline Edgar, MPT Balance/Gait/Functional tests Balance/Special Test Scores Functional Gait Assessment Score: 10 % Disability: 66.6700 Lower Extremity Functional Score: 49 Improvement % Improvement: 06/11/25 1329 CC: Dr. Judd Rubio MD; Dr. Desmond Riojas MD Signed Normal [facility] Absolute lymphocyte countOrd ered By: Desmond Riojas on 06-07-2025 Lymphocytes Auto (Unsp spec) [#/Vol] 0.86 10*3/uL 0.83-4.51 [facility] Absolute neutrophil countOrd ered By: Desmond Riojas on 06-07-2025 Neutrophils (Bld) [#/Vol] 2.4 10*3/uL 2.0-7.7 [facility] Anion gap in Serum or Plasma Ordered By: Desmond Riojas on 06-07-2025 Anion gap [Moles/Vol] 11 mmol/L 5-15 [facility] Automated lymphocyte count a s percentage of total leukocytesOrdered By: Desmond Riojas on 06-07-2025 Lymphocytes/100 WBC Auto (Unsp spec) 23.4 % 19-41 [facility] BUN/creatinine ratioOrdered By: Desmond Riojas on 06-07-2025 Urea nitrogen/Creatinine [Mass ratio] 23.6 mg/mg High 10-20 [facility] Basophil percentageOrdered B y: Desmond Riojas on 06-07-2025 Basophils/100 WBC (Bld) 1.1 % High 0-1 [facility] Bilirubin, totalOrdered By: Desmond Riojas on 06-07-2025 Bilirubin [Mass/Vol] 0.44 mg/dL 0.00-1.30 [facility] CBC W/Diff, Automatedon 09-1 Absolute Lymph 0.86 X10 3/uL Normal 0.83-4.51 [facility] Comment on above: Performed By: #### L 506.1001, L501.9520, L100.0100, L500.4050 ####[facility] [address] [place], [address] Absolute Neut 2.4 X10 3/uL Normal 2.0-7.7 [facility] Comment on above: Performed By: #### L 506.1001, L501.9520, L100.0100, L500.4050 ####[facility] [address] [place], [address] Basophils/100 WBC (Bld) 1.1 % High 0-1 [facility] Comment on above: Performed By: #### L 506.1001, L501.9520, L100.0100, L500.4050 ####[facility] [address] [place], [address] Eosinophils/100 WBC (Bld) 4.4 % Normal 0-5 [facility] Comment on above: Performed By: #### L 506.1001, L501.9520, L100.0100, L500.4050 ####[facility] [address] [place], [address] Erythrocyte distribution width (RBC) [Ratio] 12.7 % Normal 11.6-14.6 [facility] Comment on above: Performed By: #### L 506.1001, L501.9520, L100.0100, L500.4050 ####[facility] [address] [place], [address] Hematocrit (Bld) [Volume fraction] 39.3 % Normal 37-47 [facility] Comment on above: Performed By: #### L 506.1001, L501.9520, L100.0100, L500.4050 ####[facility] [address] [place], [address] Hemoglobin (Bld) [Mass/Vol] 13.3 g/dL Normal 12.0-15.0 [facility] Comment on above: Performed By: #### L 506.1001, L501.9520, L100.0100, L500.4050 ####[facility] [address] [place], [address] IG% 0.300 Normal 0.0-0.9 [facility] Comment on above: Result Comment: IG% - Immature Granulocytes (promyelocytes, myelocytes and metamyelocytes) > 1% indicates that a LEFT SHIFT is Present. Performed By: #### L 506.1001, L501.9520, L100.0100, L500.4050 ####[facility] [address] [place], [address] Lymphocytes/100 WBC (Bld) 23.4 % Normal 19-41 [facility] Comment on above: Performed By: #### L 506.1001, L501.9520, L100.0100, L500.4050 ####[facility] [address] [place], [address] MCH (RBC) [Entitic mass] 32.1 pg High 27.0-32.0 [facility] Comment on above: Performed By: #### L 506.1001, L501.9520, L100.0100, L500.4050 ####[facility] [address] [place], [address] MCHC (RBC) [Mass/Vol] 33.8 g/dL Normal 32-36 [facility] Comment on above: Performed By: #### L 506.1001, L501.9520, L100.0100, L500.4050 ####[facility] [address] [place], [place], [address] MCV (RBC) [Entitic vol] 94.9 fL Normal 81-99 [facility] Comment on above: Performed By: #### L 506.1001, L501.9520, L100.0100, L500.4050 ####[facility] [address] [place], [address] Monocytes/100 WBC (Bld) 6.3 % Normal 0-10 [facility] Comment on above: Performed By: #### L 506.1001, L501.9520, L100.0100, L500.4050 ####[facility] [address] [place], [address] Neutrophils/100 WBC (Bld) 64.5 % Normal 47-70 [facility] Comment on above: Performed By: #### L 506.1001, L501.9520, L100.0100, L500.4050 ####[facility] [address] [place], [address] Nucleated RBC (Bld) [#/Vol] 0 10*3/uL Normal 0-5 [facility] Comment on above: Performed By: #### L 506.1001, L501.9520, L100.0100, L500.4050 ####[facility] [address] [place], [address] Platelet mean volume (Bld) [Entitic vol] 10.5 fL Normal 6.2-12.0 [facility] Comment on above: Performed By: #### L 506.1001, L501.9520, L100.0100, L500.4050 ####[facility] [address] [place], [address] Platelets (Bld) [#/Vol] 163 10*3/uL Normal 150-450 [facility] Comment on above: Performed By: #### L 506.1001, L501.9520, L100.0100, L500.4050 ####[facility] [address] [place], [address] RBC (Bld) [#/Vol] 4.14 10*6/uL Low 4.2-5.4 [facility] Comment on above: Performed By: #### L 506.1001, L501.9520, L100.0100, L500.4050 ####[facility] [address] [place], [address] RDW SD 44.4 fl High 35.1-43.9 [facility] Comment on above: Performed By: #### L 506.1001, L501.9520, L100.0100, L500.4050 ####[facility] [address] [place], [address] WBC (Bld) [#/Vol] 3.7 10*3/uL Low 4.4-11.0 [facility] Comment on above: Performed By: #### L 506.1001, L501.9520, L100.0100, L500.4050 ####[facility] [address] [place], [address] Carbon dioxide, total [Moles /volume] in Central venous bloodOrdered By: Desmond Riojas on 06-07-2025 CO2 [Moles/Vol] 27.3 mmol/L 21.0-32.0 [facility] Chloride assayOrdered By: Abram Riojas on 06-07-2025 Chloride [Moles/Vol] 104 mmol/L 98-108 [facility] Comprehensive Metabolic Prof ilon 06-07-2025 Albumin [Mass/Vol] 4.2 g/dL Normal 3.4-4.8 [facility] Comment on above: Performed By: #### L 506.1001, L501.9520, L100.0100, L500.4050 ####[facility] [address] [place], [address] Albumin/Globulin [Mass ratio] 1.6 {ratio} Normal 0.9-2.4 [facility] Comment on above: Performed By: #### L 506.1001, L501.9520, L100.0100, L500.4050 ####[facility] [address] [place], [address] ALK PHOS 71 U/L Normal 35-104 [facility] Comment on above: Performed By: #### L 506.1001, L501.9520, L100.0100, L500.4050 ####[facility] [address] [place], [address] ALT [Catalytic activity/Vol] 13 U/L Normal <=34 [facility] Comment on above: Performed By: #### L 506.1001, L501.9520, L100.0100, L500.4050 ####[facility] [address] [place], [address] AST [Catalytic activity/Vol] 21 U/L Normal <=31 [facility] Comment on above: Performed By: #### L 506.1001, L501.9520, L100.0100, L500.4050 ####[facility] [address] [place], [address] Bilirubin [Mass/Vol] 0.44 mg/dL Normal 0.00-1.30 [facility] Comment on above: Performed By: #### L 506.1001, L501.9520, L100.0100, L500.4050 ####[facility] [address] [place], [address] BUN/CRE 23.6 RATIO High 10-20 [facility] Comment on above: Performed By: #### L 506.1001, L501.9520, L100.0100, L500.4050 ####[facility] [address] [place], [address] Calcium [Mass/Vol] 9.4 mg/dL Normal 7.6-11.0 [facility] Comment on above: Performed By: #### L 506.1001, L501.9520, L100.0100, L500.4050 ####[facility] [address] [place], [address] Chloride [Moles/Vol] 104 mmol/L Normal 98-108 [facility] Comment on above: Performed By: #### L 506.1001, L501.9520, L100.0100, L500.4050 ####[facility] [address] [place], [address] CO2 [Moles/Vol] 27.3 mmol/L Normal 21.0-32.0 [facility] Comment on above: Performed By: #### L 506.1001, L501.9520, L100.0100, L500.4050 ####[facility] [address] [place], [address] Creatinine [Mass/Vol] 0.75 mg/dL Normal 0.70-1.20 [facility] Comment on above: Performed By: #### L 506.1001, L501.9520, L100.0100, L500.4050 ####[facility] [address] [place], [address] GAP 11 Normal 5-15 [facility] Comment on above: Performed By: #### L 506.1001, L501.9520, L100.0100, L500.4050 ####[facility] [address] [place], [address] GFR/1.73 sq M.predicted among non-blacks MDRD (S/P/Bld) [Vol rate/Area] 82 mL/min/{1.73_m2} Normal >60 [facility] Comment on above: Result Comment: mL/m in/1.73m2 CKD-EPI Creatinine Equation (2020) Performed By: #### L 506.1001, L501.9520, L100.0100, L500.4050 ####[facility] [address] [place], [address] Globulin (S) [Mass/Vol] 2.6 g/dL Normal 2.2-4.2 [facility] Comment on above: Performed By: #### L 506.1001, L501.9520, L100.0100, L500.4050 ####[facility] [address] [place], [address] Glucose [Mass/Vol] 83 mg/dL Normal 70-99 [facility] Comment on above: Performed By: #### L 506.1001, L501.9520, L100.0100, L500.4050 ####[facility] [address] [place], [address] Potassium [Moles/Vol] 4.2 mmol/L Normal 3.3-5.1 [facility] Comment on above: Performed By: #### L 506.1001, L501.9520, L100.0100, L500.4050 ####[facility] [address] [place], [address] Sodium [Moles/Vol] 142 mmol/L Normal 133-145 [facility] Comment on above: Performed By: #### L 506.1001, L501.9520, L100.0100, L500.4050 ####[facility] [address] [place], [address] T PROT 6.8 g/dL Normal 5.9-8.4 [facility] Comment on above: Performed By: #### L 506.1001, L501.9520, L100.0100, L500.4050 ####[facility] [address] [place], [address] Urea nitrogen [Mass/Vol] 18 mg/dL Normal 4-19 [facility] Comment on above: Performed By: #### L 506.1001, L501.9520, L100.0100, L500.4050 ####[facility] [address] [place], [address] Eosinophil percentageOrdered By: Desmond Shine on 06-07-2025 Eosinophils/100 WBC (Bld) 4.4 % 0-5 [facility] Erythrocyte distribution wid th ratioOrdered By: [facility] on 06-07-2025 Erythrocyte distribution width (RBC) [Ratio] 12.7 % 11.6-14.6 [facility] Erythrocyte distribution wid th standard deviationOrdered By: [facility] on 06-07-2025 Erythrocyte distribution width (RBC) [Ratio] 44.4 fl High 35.1-43.9 [facility] Glomerular filtration rate ( GFR) estimation/1.73 sq m using serum, plasma, or whole bOrdered By: Desmond Shine on 06-07-2025 GFR/1.73 sq M.predicted among non-blacks MDRD (S/P/Bld) [Vol rate/Area] 82 mL/min/{1.73_m2} >60 [facility] Comment on above: mL/min/1.73m2 CKD-EP I Creatinine Equation (2020) Hematocrit Auto (Bld) [Volum e fraction]Ordered [facility]: [facility] 06-07-2025 Hematocrit (Bld) [Volume fraction] 39.3 % 37-47 [facility] Hemoglobin measurementOrdere d By: Desmond Shine on 06-07-2025 Hemoglobin (Bld) [Mass/Vol] 13.3 g/dL 12.0-15.0 [facility] Immature granulocytes/100 WB C Auto (Bld)Ordered By: Desmond Shine 06-07-2025 Immature granulocytes/100 WBC (Bld) 0.300 % 0.0-0.9 [facility] Comment on above: IG% - Immature Granu locytes (promyelocytes, myelocytes and metamyelocytes) > 1% indicates that a LEFT SHIFT is Present. Laboratory - Chemistry and C hemistry - challengeOrdered By: Desmond Riojas on 06-07-2025 AST [Catalytic activity/Vol] 21 U/L <32 [facility] MCV (mean corpuscular volume ) determinationOrdered By: Desmond Riojas on 06-07-2025 MCV (RBC) [Entitic vol] 94.9 fL 81-99 [facility] Mean corpuscular hemoglobin (MCH) determinationOrdered By: Desmond Riojas on 06-07-2025 MCH (RBC) [Entitic mass] 32.1 pg High 27.0-32.0 [facility] Mean corpuscular hemoglobin concentration (MCHC) determinationOrdered By: Desmond Riojas on 06-07-2025 MCHC (RBC) [Mass/Vol] 33.8 g/dL 32-36 [facility] Mean platelet volume determi nationOrdered By: Desmond Riojas on 06-07-2025 Platelet mean volume (Bld) [Entitic vol] 10.5 fL 6.2-12.0 [facility] Monocyte percentageOrdered B y: Desmond Riojas on 06-07-2025 Monocytes/100 WBC (Bld) 6.3 % 0-10 [facility] Neutrophil percentageOrdered By: Desmond Riojas on 06-07-2025 Neutrophils/100 WBC (Bld) 64.5 % 47-70 [facility] Nucleated red blood cell per centageOrdered By: Desmond Riojas on 06-07-2025 Nucleated RBC/100 WBC (Bld) [Ratio] 0 % 0-5 [facility] Platelet countOrdered By: Abram Riojas on 06-07-2025 Platelets (Bld) [#/Vol] 163 10*3/uL 150-450 [facility] Potassium measurement (mass/ volume)Ordered By: Desmond Riojas on 06-07-2025 Potassium (Unsp spec) [Mass/Vol] 4.2 mmol/L 3.3-5.1 [facility] RBC Auto (Bld) [#/Vol]Ordere d By: Desmond Riojas on 06-07-2025 RBC (Bld) [#/Vol] 4.14 10*6/uL Low 4.2-5.4 [facility] Serum creatinine measurement (mass/volume)Ordered By: Desmond Riojas on 06-07-2025 Creatinine [Mass/Vol] 0.75 mg/dL 0.70-1.20 [facility] Serum globulin measurementOr dered By: Desmond Riojas on 06-07-2025 Globulin (S) [Mass/Vol] 2.6 g/dL 2.2-4.2 [facility] Serum glucose measurement (m ass/volume)Ordered By: Desmond Riojas 06-07-2025 Glucose [Mass/Vol] 83 mg/dL 70-99 [facility] Serum or plasma alanine peter otransferase (ALT) measurementOrdered By: Desmond Riojas on 06-07-2025 ALT [Catalytic activity/Vol] 13 U/L <35 [facility] Serum or plasma albumin donna urement (mass/volume)Ordered By: Desmond Riojas on 06-07-2025 Albumin [Mass/Vol] 4.2 g/dL 3.4-4.8 [facility] Serum or plasma albumin/glob ulin mass ratioOrdered By: Desmond Riojas 06-07-2025 Albumin/Globulin [Mass ratio] 1.6 {ratio} 0.9-2.4 [facility] Serum or plasma alkaline pieter sphatase measurementOrdered By: Desmond Riojas 06-07-2025 ALP [Catalytic activity/Vol] 71 U/L 35-104 [facility] Serum or plasma calcium donna urement (mass/volume)Ordered By: Desmond Riojas 06-07-2025 Calcium [Mass/Vol] 9.4 mg/dL 7.6-11.0 [facility] Serum or plasma urea nitroge n measurement (mass/volume)Ordered By: Desmond Riojas 06-07-2025 Urea nitrogen [Mass/Vol] 18 mg/dL 4-19 [facility] Sodium levelOrdered By: Desmond Riojas 06-07-2025 Sodium [Moles/Vol] 142 mmol/L 133-145 [facility] TSH DL <= 0.005 mIU/L QnOrde red By: Desmond Riojas on 06-07-2025 TSH Qn 1.600 uIU/mL 0.300-4.200 [facility] Thyroid Stim Hormone (TSH)on 06-07-2025 TSH 1.600 uIU/mL Normal 0.300-4.200 [facility] Comment on above: Performed By: #### L 506.1001, L501.9520, L100.0100, L500.4050 ####[facility] [address] [place], [address] Total proteinOrdered By: Desmond Riojas on 06-07-2025 Protein [Mass/Vol] 6.8 g/dL 5.9-8.4 [facility] Vitamin D,25 Hydroxyon 06-07 Vitamin D 25-OH 76.1 ng/mL Normal 30-100 [facility] Comment on above: Result Comment: Angelita min D Status Deficiency: <20 ng/mL (50nmol/L) Insufficiency: 20-30 ng/mL (50-75 nmol/L) Sufficiency: 30-100 ng/mL (75-250 nmol/L) Toxicity: >100 ng/mL (>250 nmol/L) Performed By: #### L 506.1001, L501.9520, L100.0100, L500.4050 ####[facility] [address] [place], [address] White blood cell (WBC) count Ordered By: Desmond Riojas on 06-07-2025 WBC (Bld) [#/Vol] 3.7 10*3/uL Low 4.4-11.0 [facility] SP/HP.SP.Qiana 06-06-2025 SP/HP.SP.EV [facility] Speech Pathology Health[address] [place] [address] / REHABILITATION SERVICES INITIAL EVALUATION MR#: [id number] Acct: [id number] Name: VIOLA BENNETT Tata Rep #: [id number] : 1950 75 From: Manuel Hill M.A., CCC-S LP Referring Dr.: Dr. Judd Rubio MD Status: REG RCR Insurance: MEDICARE PART [facility] B [facility] Visit History Visit Info Date of Eval: 09/16/25 Today is Visit #: 1 Justowriter Operator: ROB History Attending Doctor: Referring Doctor: Reason for Referral: [facility] Medical Diagnosis: Dysphonia Date of Onset of Diagnosis: 2022 Previous speech therapy: No Other Relevant Medical History/Diagnoses/Surge ry: Ulcers, pneumonia (remote), GERD, Migraines, sleep apnea, generalized weakness. See Past Medical History in chart for complete history. Medications related to this diagnosis: Pramipexole 1.5 mg 1x Taken at 7 am. Smoking Status: Never smoker Diagnosis Diagnosis: Dysphonia Pain Is pain an issue with your current prescribed condition?: No Personal Preferred language: Bermud[place] Patient Allergies Allergies Allergies: Allergies cefdinir Allergy (Verified 01/18/25 09:59) Hives diphenhydramine HCl (From Benadryl) Allergy (Verified 01/18/25 09:59) Hives Sulfa (Sulfonamide Antibiotics) Allergy (Verified 01/18/25 09:59) Hives Subjective Cog/Ling/Com Subjective Cognitive/Linguistic/Co mmunication: Patient reported that she is having more difficulty with recall such as things to get at the store. She stated she never used a list and now needs to write more down or else she doesn't recall. Subjective Voice Informal Questioner Do you scream (anger, sporting event, work, noisy envirmonment): Less than average Do you raise your voice (e.g. parenting, calling from room to room, etc.): Less than average Do you talk for long periods of time without a break (teacher, marte): Less than average Are you a talker: Average How often do you use the telephone: Less than average Do you do impersonations, character voices or unusual sound effects: None Intubation Was the Client intubated: No Objective Voice Date of Diagnosis Date of diagnosis: 2022 Previous Speech Therapy (If yes, describe): No Medications Familiar with on/off effect: Yes Implantation Deep brain implantation (If yes, answer next question): No Objective data Objective Data: Objective data: Sound pressure level (SPL acoustic correlation of vocal loudness) was measured with a sound level meter at a distance of 40 cm from the patient's mouth. Average conversational loudness is 70-80 dB and sustained phonation duration is 15 to 20 seconds for a typical adult. 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 It was difficult for other people to understand me.: Always Is was difficult to speak clearly?: Always In the past 7 days.. How often did you limit your social activites because you had difficulty speaking?: Always In the past 7 days... I had trouble speaking.: Somewhat I was frustrated by my speech difficulties.: Very much How much DIFFICULTY do you have... ...saying what you want to say?: A little difficulty Score HDQLIFE Speech Difficulties Raw Score: 25 HDQLIFE Speech Difficulties T - Score: 64 Radiation Oncology Patient Plan Plan Plan: A vocal intensity based intervention approach applying LSVT principles to improve speech intelligibility will be used. Given the progressive nature of primary diagnosis, It is not anticipated for a full return to pre-morbid level of functioning, though will expect to achieve gains in speech intelligibility as well as maintain current level of functioning. To achieve this, the patient will require continued skilled speech-language intervention not only through the current intervention cycle but will likely benefit from repeated intervention cycles to mo (more content not included)... Normal [facility] Gastroenterology Visit Repor ton 05-31-2025 Gastroenterology Visit Report [facility] Gastroenterology [address] [place] [address] OFFICE VISIT Date of Service: 05/31/25 MR#: [id number] Acct: [id number] Name: VIOLA BENNETT Rep #: [id number] : 1950 Provider: SUSANNA Murphy Age/Sex: 75/F Location: [facility] Status: Signed Intake Vital Signs 02/07/25 07:59 Height 5 ft 2 in Intake Visit Reasons: 3 M FU Chief Complaint: nausea Allergies cefdinir Allergy (Verified 01/18/25 09:59) Hives diphenhydramine HCl (From Benadryl) Allergy (Verified 01/18/25 09:59) Hives Sulfa (Sulfonamide Antibiotics) Allergy (Verified 01/18/25 09:59) Hives Medications ???Medication ???Instructions ???Recorded ???Confirmed ???Type galcanezumab-gnlm 120 mg/mL 120 mg subcut QMONTH Migraines 02/0605/31/25 History subcutaneous syringe (Emgality) multivitamin 1 tab PO DAILY Supplement 04/26/20 05/31/25 History divalproex 500 mg tablet,extended 500 mg PO QHS headache 01/31/21 0 05/31/25 History release 24 hr (Depakote ER) ergocalciferol (vitamin D2) 1,250 1,250 mcg PO DAILY supplement 04/1005/31/25 History mcg (50,000 unit) capsule apixaban 5 mg tablet 5 mg PO BID Blood thinner #60 tabs 06/12/22 05/31/25 Rx verapamil 120 mg 24 hr 240 mg PO DAILY 04/22/24 05/31/25 History capsule,extended release citalopram 20 mg tablet 30 mg PO DAILY 07/15/24 05/31/25 H istory polysaccharide iron complex 150 mg 150 mg PO QDAY 01/17/25 05/31/25 History iron capsule fomiouy-vhpyeme-xafqwyw sharon capsule 1 cap PO DAILY 01/18/25 05/31/25 History (Guarana capsule) potassium chloride 20 mEq 20 meq PO DAILY #90 tabs 01/18/25 05/31/25 Rx tablet,extended release(part/cryst) oxycleanse 1 cap PO 1XD 02/07/25 05/31/25 His tory sennosides 8.6 mg-docusate sodium 1 tab-cap PO DAILY 02/07/2505/31 History 50 mg tablet (2-in-1 Laxative) omeprazole 40 mg capsule,delayed 40 mg PO BID #90 caps 05/31/2508/14 Rx release ondansetron HCl 4 mg tablet 4 mg PO Q8H PRN nausea and 5 05/31/25 Rx vomiting #20 tabs Have you fallen in the past year?: No PFSH Medical History Ambulates with cane Anemia Hoarseness Other specified disorders of bone density and structure, unspecified site Other primary thrombophilia Arthropathy, unspecified Acute embolism and thrombosis of other specified deep vein of unspecified lower extremity Anxiety disorder, unspecified Other hyperlipidemia Vitamin D deficiency Encounter for other procedures for purposes other than remedying health state Dysphonia Metabolic syndrome Fracture of unspecified part of neck of left femur, initial encounter for closed fracture Unspecified multiple injuries, initial encounter Thyroid nodule Sacroiliitis BMI 32.0-32.9,adult Melena Loss of hearing Low iron GERD (gastroesophageal reflux disease) Sleep apnea Hypertension Subcutaneous nodule Parkinson disease Generalized weakness Hypokalemia Factor V Leiden mutation Generalized weakness Chronic anticoagulation History of atrial fibrillation History of Parkinson's disease Fall Anxiety Concussion Essential hypertension Fall Presbycusis of both ears Osteopenia Malnourished Anemia Anterolisthesis Segmental and somatic dysfunction of thoracic region Vasovagal near syncope Insomnia Allergic rhinitis Migraine Hyperlipidemia Gastroesophageal reflux disease Hypertension Deep vein thrombosis Obstructive sleep apnea Depression Osteoarthritis Factor 5 Leiden mutation, heterozygous Open wound of left lower leg with complication Fall as cause of accidental injury at home as place of occurrence Wears hearing aid Wears glasses Depression Anxiety Open wound Walker as ambulation aid DVT (deep venous thrombosis) High cholesterol Injury of back Injury of head and neck Migraine headache Syncope Gastric reflux Non-smoker CPAP (continuous positive airway pressure) dependence History of pain when walking History of edema Hx of echocardiogram History of stress test Cardiology follow-up encounter History of atrial fibrillation Cellulitis of left lower leg Skin necrosis 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 lower leg with complication Hematoma of left lower extremity Vision problems Cataract Back pain Segmental and somatic dysfunction of pelvic region Segmental and somatic dysfunction of lumbar region Scoliosis of lumbar spine CKD (chronic kidney disease) History of DVT (deep vein thrombosis) VALENTIN (obstructive sleep apnea) Paroxysmal atrial fibrillation Long-term use of high-risk medication Family history of coronary artery disease Family history of CVA 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 Normal [facility] Inital Evaluation (1) - PTon 05-09-2025 Inital Evaluation (1) - PT [facility] Physical Therapy [facility] [address] [facility] [place] [address] / REHABILITATION SERVICES INITIAL EVALUATION MR#: [id number] Acct: [id number] Name: VIOLA BENNETT Rep #: [id number] : 1950 75 From: Carline FITZGERALD Referring Dr.: Dr. Judd Rubio MD Status: REG RCR Insurance: [facility]ICARE PART A B [facility] Patient's Visit Information Visit Information Visit Information: VIOLA BENNETT is a 75 year old F referred to Physical Therapy by Dr. Judd Rubio MD with a diagnosis of PD. Date of Evaluation: 05/09/25 Physical Therapist: LIA Flores Visit Plan Frequency: 2x /Week Duration: 2 Months Plan: 2X/ week for 8 weeks for LE strength, gait mechanics (Increase step length, L leg clearing R stance leg and increase heel to toe gait pattern with rollator), balance exercises, endurance with walking, posture and HEP Subjective Subjective: Pt does not know why she is here. She said she went for a regular check up for PD and the Dr did not like how she was walking. She walks in with a rollator. She is now on a heavier does of PD meds. She was not feeling good this morning. She has lost 145 pounds cause she is just not hungry and had ulcers. She feels that her legs are weak. She drives still and is able to get her rollator in and out of the car. She takes care of her . She uses a cane if her takes his rollator. She uses a cane in the house except at night she uses the rollator. No falls lately. She does not use the steps in her home and has a ramp into the house. Objective Objective: Gait: walks with rollator with decrease step length. Left leg does not pass the stance R leg. I had her walk without the rollator with min A and she took very short stride with knees bent and very unsteady. She was unable to walk BW without the rollator. She was using her rollator to walk Bw and could do it with a very small step length Had the pt step over a 4 inch box holding on the the reinoso railing and she struggle to do that due to having to increase her step length over it and just being unsteady. LE MMT: R hip flex 5.4 and L 4.6 R knee ext 5.6 and L 4.5 R knee flexion 7.4 and L 6 Standing heel and toe raises at rollator: pt has decrease ankle AROM holding onto rollator but able to do heel and toe raises within available ROM FGA 7 Sit to stand: on first attempt and uses her arms to help her get out of a chair. Sitting opp arm and leg X 10 in row without messing up. Gait walking with rollator around entire dept (4 min and 4 seconds) pt reported that her legs were very tired after Posture: sits with more of a rounded shoulders but able to sit up on command Balance/Special Test Scores Functional Gait Assessment Score: 7 % Disability: 76.6700 Lower Extremity Functional Score: 44 Goals Goal 1:: I HEP Goal Time Frame: 6-8 Weeks Goal 2:: Increase LE strength (LE MMT: R hip flex 5.4 and L 4.6 R knee ext 5.6 and L 4.5 R knee flexion 7.4 and L 6) Goal Time Frame: 6-8 Weeks Goal 3:: Be able to walk 1 lap around dept with verbal cues to increase step length especially on the L LE (at the time of the eval 1 lap= 1 min and 4 seconds with rollator) Goal Time Frame: 6-8 Weeks Goal 4:: Increase balance (FGA was 7 at eval) Goal Time Frame: 6-8 Weeks Goal 5:: Be able to sit to stand X 10 with B UE on first attempt Rehabilitation Potential Rehabilitation Potential: Good Anticipated Interventions Patient/Client Instruction: Educate patient on: Condition and Plan of Care For the Purpose of:: To improve muscle performance and motor function, To improve ability to perform ADL's, To increase tolerance to activity/condition/posi tion, To improve performance and independence with ADL's, To decrease level of supervision to perform tasks, To improve ability of physical actions for home/community/work/lei sure, To improve gait and locomotor functions, To increase flexibility/ROM, To improve endurance, To improve balance and To improve safety with gait Therapeutic Exercise to Include: Strength training, Endurance training, Balance training, Coordination, Body mechanics, Postural training, Flexibilty training, Gait and locomotor training, Neuromotor development and Dynamic Lumbar Stabilization For the Purpose of:: To improve muscle performance and motor function, To improve ability to perform ADL's, To increase tolerance to activity/condition/posi tion, To improve performance and independence with ADL's, To improve ability of physical actions for home/community/work/lei sure, To improve gait and locomotor functions, To improve health of tissue, To increase flexibility/ROM, To improve endurance and To improve balance Functional Training to Include: Gait training For the Purpose of:: To improve gait and locomotor functions and To improve safety with gait Text: (more content not included)... Normal [facility] Gastroenterology Visit Repor ton 2025 Gastroenterology Visit Report [facility] Gastroenterology [address] [place] [address] OFFICE VISIT Date of Service: 02/21/25 MR#: [id number] Acct: [id number] Name: VIOLA BENNETT Rep #: [id number] : 1950 Provider: SUSANNA Murphy Age/Sex: 75/F Location: [email or web address] Status: Signed Intake Vital Signs 02/07/25 07:59 Height 5 ft 2 in Intake Visit Reasons: Test Result Chief Complaint: nausea Allergies cefdinir Allergy (Verified 01/18/25 09:59) Hives diphenhydramine HCl (From Benadryl) Allergy (Verified 01/18/25 09:59) Hives Sulfa (Sulfonamide Antibiotics) Allergy (Verified 01/18/25 09:59) Hives Have you fallen in the past year?: No Nurse's Note: OV 02/21/25 Pt here for a f/u and reports nausea and abdominal pain. Pt reports she gets nausea most days and is still taking zofran for it. [facility] Medical History Ambulates with cane Anemia Hoarseness Other specified disorders of bone density and structure, unspecified site Other primary thrombophilia Arthropathy, unspecified Acute embolism and thrombosis of other specified deep vein of unspecified lower extremity Anxiety disorder, unspecified Other hyperlipidemia Vitamin D deficiency Encounter for other procedures for purposes other than remedying health state Dysphonia Metabolic syndrome Fracture of unspecified part of neck of left femur, initial encounter for closed fracture Unspecified multiple injuries, initial encounter Thyroid nodule Sacroiliitis BMI 32.0-32.9,adult Melena Loss of hearing Low iron GERD (gastroesophageal reflux disease) Sleep apnea Hypertension Subcutaneous nodule Parkinson disease Generalized weakness Hypokalemia Factor V Leiden mutation Generalized weakness Chronic anticoagulation History of atrial fibrillation History of Parkinson's disease Fall Anxiety Concussion Essential hypertension Fall Presbycusis of both ears Osteopenia Malnourished Anemia Anterolisthesis Segmental and somatic dysfunction of thoracic region Vasovagal near syncope Insomnia Allergic rhinitis Migraine Hyperlipidemia Gastroesophageal reflux disease Hypertension Deep vein thrombosis Obstructive sleep apnea Depression Osteoarthritis Factor 5 Leiden mutation, heterozygous Open wound of left lower leg with complication Fall as cause of accidental injury at home as place of occurrence Wears hearing aid Wears glasses Depression Anxiety Open wound Walker as ambulation aid DVT (deep venous thrombosis) High cholesterol Injury of back Injury of head and neck Migraine headache Syncope Gastric reflux Non-smoker CPAP (continuous positive airway pressure) dependence History of pain when walking History of edema Hx of echocardiogram History of stress test Cardiology follow-up encounter History of atrial fibrillation Cellulitis of left lower leg Skin necrosis 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 lower leg with complication Hematoma of left lower extremity Vision problems Cataract Back pain Segmental and somatic dysfunction of pelvic region Segmental and somatic dysfunction of lumbar region Scoliosis of lumbar spine CKD (chronic kidney disease) History of DVT (deep vein thrombosis) VALENTIN (obstructive sleep apnea) Paroxysmal atrial fibrillation Long-term use of high-risk medication Family history of coronary artery disease Family history of CVA 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 Traumatic ulcer of left lower extremity Atrial fibrillation CKD (chronic kidney disease) Obesity, Class III, BMI 40-49.9 (morbid obesity) Hypertension Head injury without concussion or intracranial hemorrhage Fall due to ice or snow Surgical History History of left hip hemiarthroplasty History of incision and drainage Hx of cataract extraction History of total hysterectomy History of bilateral knee replacement History of cholecystectomy Family History Brother CAD (coronary artery disease) Mother CVA (cerebral vascular accident) CAD (coronary artery disease) Son Hypertension Daughter Hypertension Other Arthritis Cancer Diabetes Family history of CVA Family history of coronary artery disease Family history of hypertension Heart disease High cholesterol Kidney disease Thyroid disorder Social History household members: spouse housing: house number of children: 2 current occupational status: retired current occupational exposures/hazards: No pets and animals: No Smoking Status: Never smoker alcohol intake: never substance use type: does not use caffeine: Yes Type: tea what type of physica (more content not included)... Normal [facility] Echo Completeon 02-20-2025 Echo Complete [facility] [address] [place] [address] Echo Complete 02/20/25 0941 MR#: [id number] Acct: [id number] Name: VIOLA BENNETT Rep #: [id number] : 1950 75 From: Marlin Onofre MD Attending Dr: Dr. Marlin Onofre MD Status: REG CLI Ordering Dr: Marlin Onofre MD Date: 02/20/25 Location: CVS Sex: F C Admitted: Reason For Study Reason For Study: Preop Procedure This was a 2D Doppler, Color Flow transthoracic echocardiogram. Exam performed in department. Left Ventricle Normal size and thickness. Mild apical hypokinesis. Estimated LVEF 55%. Stage I diastolic dysfunction. Right Ventricle Normal right ventricle. A moderator band is seen in the right ventricle. Atria The left and right atria are normal. Mitral Valve Mild (1+) mitral valve insufficiency. Tricuspid Valve Mild tricuspid valve insufficiency. Normal pulmonary artery pressure. Aortic Valve Trisinus/trileaflet aortic valve. Pulmonic Valve The pulmonic valve is not well visualized. Trivial pulmonic valve insufficiency. Great Vessels Normal sized aortic root. Pericardium/Pleural No pericardial effusion. MMode/2D Measurements Calculations LVIDd: 4.6 cm IVSd: 1.0 cm Ao root diam: 3.0 cm LVIDs: 2.6 cm LVPWd: 0.72 cm LA dimension: 3.8 cm RVDd: 3.0 cm FS: 43.9 % LAV(MOD-bp): 39.8 ml LVAd ap4: 20.9 cm2 SV(MOD-sp4): 35.5 ml LAV(MOD-bp) Indexed: 23.9 ml/m2 LVLd ap4: 6.3 cm SI(MOD-sp4): 21.4 ml/m2 LAV(MOD-sp2): 52.7 ml EDV(MOD-sp4): 55.8 ml LAV(MOD-sp4): 28.4 ml EDV(sp4-el): 58.6 ml LVAs ap4: 11.0 cm2 LVLs ap4: 5.1 cm ESV(MOD-sp4): 20.3 ml ESV(sp4-el): 20.0 ml EF(MOD-sp4): 63.6 % EF(sp4-el): 65.8 % SV(sp4-el): 38.5 ml LA A4 area: 12.9 cm2 LA dimension(2D): 3.4 cm RA A4 area: 11.6 cm2 TAPSE: 2.0 cm Time Measurements MV dec time: 0.20 sec Doppler Measurements Calculations MV E max robb: 39.9 cm/sec Lat Peak E' Robb: 9.7 cm/sec Med Peak E' Robb: 6.0 cm/sec MV A max robb: 73.2 cm/sec E/E' lat: 4.1 E/E' med: 6.7 MV E/A: 0.54 Ao V2 max: 110.1 cm/sec LV V1 max: 94.1 cm/sec MV dec slope: 197.0 cm/sec2 Ao max P.8 mmHg LV V1 max P.5 mmHg Ao V2 mean: 72.6 cm/sec LV V1 mean P.7 mmHg Ao mean P.5 mmHg LV V1 mean: 60.9 cm/sec Ao V2 VTI: 20.7 cm LV V1 VTI: 20.7 cm AV (velocity ratio): 1.0 PA V2 max: 90.4 cm/sec TR max robb: 231.9 cm/sec TR max P.5 mmHg ECHO/Echo Complete Interpretation Summary Mild apical hypokinesis. Estimated LVEF 55%. Stage I diastolic dysfunction. Mild (1+) mitral valve insufficiency. Mild tricuspid valve insufficiency. Ordering Physician: Marlin Onofre Referring Physician: Desmond Riojas Chi Performed By: Tahira Lyons, SHICS, RVT 02/20/25 1311 Date Marlin Onofre MD CC: Dr. Marlin Onofre MD; Dr. Desmond Riojas MD Date Dictated: 02/20/25940 Date Transcribed: 02/20/25 131 Data Base Design Analyst: Signed Normal [facility] Echocardiogram study reportO rdered By: Marlin Onofre on 02-20-2025 Study report [facility] Cardiovascular Services [address] [place] [address] Echo Complete 02/20/25940 MR#: [id number] Acct: [id number] Name: VIOLA BENNETT Rep #:[id number] : 1950 75 From: Marlin Onofre MD Attending Dr: Dr. Marlin Onofre MD Status: REG CLI Ordering Dr: Marlin Onofre MD Date: Location: [facility] Sex: F C Admitted: Reason For Study Reason For Study: Preop Procedure This was a 2D Doppler, Color Flow transthoracic echocardiogram. Exam performed in department. Left Ventricle Normal size and thickness. Mild apical hypokinesis. Estimated LVEF 55%. Stage I diastolic dysfunction. Right Ventricle Normal right ventricle. A moderator band is seen in the right ventricle. Atria The left and right atria are normal. Mitral Valve Mild (1+) mitral valve insufficiency. Tricuspid Valve Mild tricuspid valve insufficiency. Normal pulmonary artery pressure. Aortic Valve Trisinus/trileaflet aortic valve. Pulmonic Valve The pulmonic valve is not well visualized. Trivial pulmonic valve insufficiency. Great Vessels Normal sized aortic root. Pericardium/Pleural No pericardial effusion. MMode/2D Measurements & Calculations LVIDd: 4.6 cm IVSd: 1.0 cm Ao root diam: 3.0 cm LVIDs: 2.6 cm LVPWd: 0.72 cm LA dimension: 3.8 cm RVDd: 3.0 cm FS: 43.9 % LAV(MOD-bp): 39.8 ml LVAd ap4: 20.9 cm2 SV(MOD-sp4): 35.5 ml LAV(MOD-bp) Indexed: 23.9 ml/m2 LVLd ap4: 6.3 cm SI(MOD-sp4): 21.4 ml/m2 LAV(MOD-sp2): 52.7 ml EDV(MOD-sp4): 55.8 ml LAV(MOD-sp4): 28.4 ml EDV(sp4-el): 58.6 ml LVAs ap4: 11.0 cm2 LVLs ap4: 5.1 cm ESV(MOD-sp4): 20.3 ml ESV(sp4-el): 20.0 ml EF(MOD-sp4): 63.6 % EF(sp4-el): 65.8 % SV(sp4-el): 38.5 ml LA A4 area: 12.9 cm2 LA dimension(2D): 3.4 cm RA A4 area: 11.6 cm2 TAPSE: 2.0 cm Time Measurements MV dec time: 0.20 sec Doppler Measurements & Calculations MV E max robb: 39.9 cm/sec Lat Peak E' Robb: 9.7 cm/sec Med Peak E' Robb: 6.0 cm/sec MV A max robb: 73.2 cm/sec E/E' lat: 4.1 E/E' med: 6.7 MV E/A: 0.54 Ao V2 max: 110.1 cm/sec LV V1 max: 94.1 cm/sec MV dec slope: 197.0 cm/sec2 Ao max P.8 mmHg LV V1 max P.5 mmHg Ao V2 mean: 72.6 cm/sec LV V1 mean P.7 mmHg Ao mean P.5 mmHg LV V1 mean: 60.9 cm/sec Ao V2 VTI: 20.7 cm LV V1 VTI: 20.7 cm AV (velocity ratio): 1.0 PA V2 max: 90.4 cm/sec TR max robb: 231.9 cm/sec TR max P.5 mmHg ECHO/Echo Complete Interpretation Summary Mild apical hypokinesis. Estimated LVEF 55%. Stage I diastolic dysfunction. Mild (1+) mitral valve insufficiency. Mild tricuspid valve insufficiency. Ordering Physician: Marlin Onofre Referring Physician: Desmond Riojas Chi Performed By: Tahira Lyons, ALEJANDRO, RVT 02/20/25 1311 Date _ Marlin Onofre MD CC: Dr. Marlin Onofre MD; Dr. Desmond Riojas MD ~ Date Dictated: 02/20/25 0941 Date Transcribed: 02/20/25 1311 Data Base Design Analyst: Signed [facility] Work Phone: EGD Reporton 02-07-2025 EGD Report [facility] Medical Records Department [address] [place] [id number] EGD Report MR#: [id number] Acct: [id number] Name: VIOLA BENNETT Rep #: [id number] : 1950 74 From: Alexander Bailey DO PCP: Dr. Desmond Riojas MD Status:[facility] Patient Name: Viola Bennett Procedure Date: 02/07/2025 8:52 AM Date of : 1950 Age: 74 Procedure: Upper GI endoscopy Indications: Epigastric abdominal pain, Functional Dyspepsia Providers: Alexander Bailey DO Referring MD: Desmond Riojas MD Medicines: Monitored Anesthesia Care Patient Profile: This is a 74 year old female. Refer to note in patient chart for documentation of history and physical. Patient has symptoms of chronic epigastric abdominal pain and chronic nausea. Complications: No immediate complications. Procedure: Pre-Anesthesia Assessment: - Prior to the procedure, a History and Physical was performed, and patient medications and allergies were reviewed. The patient is competent. The risks and benefits of the procedure and the sedation options and risks were discussed with the patient. All questions were answered and informed consent was obtained. Patient identification and proposed procedure were verified by the physician in the pre-procedure area. Mental Status Examination: alert and oriented. Airway Examination: normal oropharyngeal airway and neck mobility. Respiratory Examination: clear to auscultation. CV Examination: normal. Prophylactic Antibiotics: The patient does not require prophylactic antibiotics. Prior Anticoagulants: The patient has taken no anticoagulant or antiplatelet agents except for NSAID medication. ASA Grade Assessment: II - A patient with mild systemic disease. After reviewing the risks and benefits, the patient was deemed in satisfactory condition to undergo the procedure. The anesthesia plan was to use monitored anesthesia care (MAC). Immediately prior to administration of medications, the patient was re-assessed for adequacy to receive sedatives. The heart rate, respiratory rate, oxygen saturations, blood pressure, adequacy of pulmonary ventilation, and response to care were monitored throughout the procedure. The physical status of the patient was re-assessed after the procedure. After obtaining informed consent, the endoscope was passed under direct vision. Throughout the procedure, the patient's blood pressure, pulse, and oxygen saturations were monitored continuously. The gastroscope was introduced through the mouth, and advanced to the third part of the duodenum. Small bowel enteroscopy was deemed necessary. The upper GI endoscopy was accomplished without difficulty. The patient tolerated the procedure well. Scope In: 9:08:02 AM Scope Out: 9:12:12 AM Total Procedure Duration Time 0 hours 4 minutes 10 seconds Findings: The examined esophagus was normal. Multiple 5 mm hyperplastic polyps with no bleeding and no stigmata of recent bleeding were found in the entire examined stomach. Patchy mildly erythematous mucosa without bleeding was found in the gastric body. Biopsies were taken with a cold forceps for histology. Verification of patient identification for the specimen was done. Estimated blood loss was minimal. Biopsies were taken with a cold forceps for Helicobacter pylori testing. Verification of patient identification for the specimen was done. Estimated blood loss was minimal. Patchy mildly erythematous mucosa without active bleeding and with no stigmata of bleeding was found in the duodenal bulb and in the second portion of the duodenum. Biopsies were taken with a cold forceps for histology. Verification of patient identification for the specimen was done. Estimated blood loss was minimal. Impression: - Normal esophagus. - Multiple gastric polyps. - Erythematous mucosa in the gastric body. Biopsied. - Erythematous duodenopathy. Biopsied. Recommendation: - Discharge patient to home. - Resume previous diet. - Continue present medications. - Await pathology results. Procedure Code(s): --- Professional --- 84871, Small intestinal endoscopy, enteroscopy beyond second portion of duodenum, not including ileum; with biopsy, single or multiple CPT copyright 2021 [employer]. All rights reserved. The codes documented in this report are preliminary and upon duct layer supervisor review may be revised to meet current compliance requirements. Alexander Bailey DO 02/07/2025 9:16:25 AM This report has been signed electronically. Number of Addenda: 0 Note Initiated On: 02/07/2025 8:52 AM 02/07/25 0916 Date Alexander Bailey DO Cosigner Signature: Date (if indicated) CC: Dr. Desmond Riojas MD; Alexander Bailye DO Date Dictated: 0 (more content not included)... Normal [facility] Immunohistochemical Stainson 02-07-2025 Immunohistochemical Stains Patient Age/Sex Location Account Attending Physician VIOLA BENNETT 74/F EN [id number] Alexander Bailey DO Specimen: [id number] Received: 02/07/25 Status: AIDE Grant Num: [id number] Spec Type: EGD BIOPSY Subm Dr: Alexander Bailey DO HEADER OPERATION: EGD with biopsy PRE-OP DIAGNOSIS: Nausea, common bile duct dilation, heme + stool, iron deficiency anemia due to chronic blood loss TISSUE SUBMITTED: A- Gastric body biopsy, B- Duodenum biopsy MICROSCOPIC DIAGNOSIS A. Stomach, body, biopsy: * Oxyntic mucosa with chronic inflammation. * IHC negative for H pylori organisms. B. Small bowel, duodenum, biopsy: * Normal villous architecture with slightly increased intraepithelial lymphocytes - see note. * Note: This pattern of injury is etiologically nonspecific???and the differential diagnosis includes sensitivity to gluten and non-gluten proteins, small intestinal bacterial overgrowth, stasis related changes, infection, protein calorie malnutrition, tropical sprue, and medication injury (NSAIDs, Olmesartan / Benicar, Mycophenolic acid, Idelalisib, for example). If celiac disease is a clinical concern, additional clinical studies, such as tTG-IgA, are recommended. MICROSCOPIC DESCRIPTION Slides are reviewed. All matched controls reacted appropriately. These tests were developed and their performance characteristics determined by [facility]. They may not have been cleared or approved by the U.S. Food and Drug Administration. The FDA has determined that such clearance or approval is not necessary. The above immunohistochemical/elias Ayan markers are ordered and reviewed by the Pathologist. GROSS DESCRIPTION A. Received in formalin in a container labeled with the patient's name, date of , and gastric body biopsy for H. pylori and path are 2 allred-pink fragments of mucosal tissue measuring 0.4 x 0.2 x 0.2 cm and 0.5 x 0.3 x 0.2 cm. Submitted in toto in A1. B. Received in formalin in a container labeled with the patient's name, date of , and duodenum biopsy are 2 allred-pink fragments of mucosal tissue each measuring 0.5 x 0.3 x 0.2 cm. Submitted in toto in B1. [facility] 02-07-2025 CPT:85053o8,34406 Patient Age/Sex Location Account Attending Physician VIOLA BENNETT 74/F EN [id number] Alexander Bailey DO Signed (signature on file) Dr. Antonette Gomez MD 02/17/25 1336 Normal [facility] Comment on above: Performed By: #### [facility] ####[facility] [id number] [facility] [place], [address] MR/POSTOP.ANE 02-07-2025 MR/POSTOP.[facility] Medical Records Department [address] [place] [address] Anesthesia Postop Eval I 02/07/25921 MR#: [id number] Acct: [id number] Name: VIOLA BENNETT Rep #: [id number] : 1950 74 From: Andrei Rausch PCP: Dr. Desmond Riojas MD Status:REG [facility] Y Race: C Location: [place] [address] Anesthesia: Postop Eval I Current Vital Signs Temperature: 97.4 F Pulse Rate: 78 Blood Pressure: 75/54 Respiratory Rate: 14 Pulse Ox: 98 Oxygen Delivery Method: Room Air Assessment Airway patent: Yes Spontaneous unlabored respirations: Yes Mental status: Awake and Calm nausea: No Vomiting: No Anesthesia Complication: No Fluid Hydration Crystalloid volume administer (ml): 300 Total IV fluid infused: 300 Progress Note Anesthesia document: Postop Eval 1 completed: Yes 02/07/25921 Date Andrei Garrett Signature: Date CC: Signed Normal [facility] MR/[id number] 02-07-2025 MR/POSTOPAN2 [facility] Medical Records Department [address] [place] [address] Anesthesia Postop Eval II 02/07/25938 MR#: [id number] Acct: [id number] Name: VIOLA BENNETT Rep #: [id number] : 1950 74 From: Sharan Verduzco MD PCP: Dr. Desmond Riojas MD Status:REG [facility] Y Race: C Location: [place] [address] Anesthesia Postop Eval I Sum Postop Eval Completion status Anesthesia document: Postop Eval 1 completed: Yes Anesthesia Postop Eval I Summary Anesthesia Postop Eval I Summary: Anesthesia Postop Eval I: Assessment Summary Airway patent Yes 02/07/25 09:22 [email or web address] Spontaneous unlabored Yes 02/07/25 09:22 [email or web address] respirations Mental status Awake,Calm 02/07/25 09:22 [email or web address] nausea No 02/07/25 09:22 [email or web address] Vomiting No 02/07/25 09:22 [email or web address] Anesthesia Postop Eval I: Fluid Summary Crystalloid volume administer 300 02/07/25 09:22 [email or web address] (ml) Colloids volume administered ( ml) Blood Product volume administered (ml) Total IV fluid infused 300 02/07/25 09:22 [email or web address] Anesthesia Postop Eval I: Summary Notes Anesthesia Complication No 02/07/25 09:22 [email or web address] Anesthesia Complication Comment: Post-operative progress note Anesthesia: Postop Eval II Evaluation Mental status: Awake Pain Level: 0 nausea: No Vomiting: No 02/07/25938 Date Sharan Verduzco MD [facility]'Sign Signature: Date CC: Signed Normal [facility] MR/PATJak 02-06-2025 MR/PAT.[facility] Medical Records Department [address] [place] [address] PAT - Anesthesia 02/06/25 1001 MR#: [id number] Acct: [id number] Name: VIOLA BENNETT Rep #: [id number] : 1950 74 From: Sharan Verduzco MD PCP: Dr. Desmond Riojas MD Status:PRE [facility] Y Race: C Location: EN Pre-Assessment Diagnosis/Proposed Procedure Planned Operative Procedure(s): EGD Anesthesia History Anesthesia History - rheumatologist: Anesthesia History - rheumatologist Hx Hospitalization No 02/06/25 09:44 Any Problems With Anesthesia No 02/06/25 09:44 Cholinesterase deficiency No 02/06/25 09:44 You/Your Family Experience No 02/06/25 09:44 fever (hyperthermia) with Relationship Recent Exposure to Contagious No 06/30/24 06:08 Disease Does patient have nerve No 02/06/25 09:44 stimulator Patient instructed to have device shut off --Does patient have Pacemaker or ICD? When Was Last Pacemaker Check QUESTION #4 FULL TEXT: You/Your Family Experience fever (hyperthermia) with Anesthesia Last Oral Intake Last Oral intake: Last Oral Intake NPO since Meds taken in AM with sips of water? 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 - rheumatologist: PONV - rheumatologist Female Yes 02/06/25 09:44 HX of Motion Sickness No 02/06/25 09:44 HX of N/V After Surgery No 02/06/25 09:44 Non-Smoker Yes 02/06/25 09:44 Duration of Surgery greater No 02/06/25 09:44 than 60 minutes Number of Risk Factors 2 02/06/25 09:44 PONV Score Moderate Risk 02/06/25 09:44 Height Weight Height Weight: Anesthesia: Height Weight Height 5 ft 2 in 07/15/24 17:11 Respiratory Assessment Respiratory Assessment - rheumatologist: Respiratory Tract Infection Hx - rheumatologist Hx Respiratory Tract Infection No 02/06/25 09:44 STOP Sleep Apnea STOP Sleep Apnea - rheumatologist: STOP Sleep Apnea - rheumatologist Hx Hypertension Yes 02/06/25 09:44 Hx Sleep Apnea Yes 02/06/25 09:44 CPAP Yes: HASN'T BEEN USING 02/06/25 09:44 LATELY BIPAP No 02/06/25 09:44 Do you snore loudly (louder than talking or can be heard Do you often feel tired/ fatigued/ sleepy during daytime? Has anyone observed you stop breathing during sleep? STOP Results Positive 02/06/25 09:44 QUESTION #5 FULL TEXT : Do you snore loudly (louder than talking or can be heard through closed doors)? Tobacco Use History Tobacco Use History - rheumatologist: Tobacco Use History - rheumatologist Tobacco Use Non-smoker 09/14/22 10:00 Smoking Status Never smoker 02/06/25 09:44 Hx Tobacco Use No 02/06/25 09:44 Years Smoking Packs Smoked per Day Smoking Cessation Date was within the last 15 years Hx Smoking Cessation Date Hx Smoking Cessation No 02/06/25 09:44 Counseling Hematologic Medial History Hematologic Hx - rheumatologist: Hematologic Medical Hx - roof slater Hx of Blood Transfusion No 02/06/25 09:44 Hx of Transfusion in last 3 No 02/06/25 09:44 Months Date of Last Transfusion (if within last 3 months) Ever experience any problems No 02/06/25 09:44 with transfusion(s)? Specify any problems Hx of Preganancy in last 3 No 02/06/25 09:44 Months Nurse Filling Out Transfusion [facility] 02/06/25 09:44 Questions: Date: 02/06/25 02/06/25 09:44 Time: 09:52 02/06/25 09:44 Patient unable to answer at this time (ie. confused, unrespo /Reproduction History /Reproductive History - rheumatologist: /Reproductive Hx- rheumatologist Hx Now No 02/06/25 09:44 Gestational Age (in weeks): EDC: Hx Hx Para Hx Section SAB No 06/28/24 09:43 PFSH Medical History (Updated 02/06/25 @ 09:52 by Cheryl Keys) Ambulates with cane Anemia Hoarseness Other specified disorders of bone density and structure, unspecified site Other primary thrombophilia Arthropathy, unspecified Acute embolism and thrombosis of other specified deep vein of unspecified lower extremity Anxiety disorder, unspecified Other hyperlipidemia Vitamin D deficiency Encounter for other procedures for purposes other than remedying health state Dysphonia Metabolic syndrome Fracture of unspecified part of neck of left femur, initial encounter for closed fracture Unspecified multiple injuries, initial encounter Thyroid nodule Sacroiliitis BMI 32.0-32.9,adult Melena Loss of hearing Low iron GERD (gastroesophageal reflux disease) Sleep apnea Hypertension Subcutaneous nodule Parkinson disease Generalized weakness Hypokalemia Factor V Leiden mutation Generalized weakness Chronic anticoag (more content not included)... Normal [facility] Gastric Emptying Studyon Gastric Emptying Study [facility] [address] [place] [id number] Gastric Emptying Study MR#: [id number] Acct: [id number] Name: VIOLA BENNETT Rep #: [id number] : 1950 F 74 From: Vic Nolan MD PCP: Dr. Desmond Riojas MD Status: REG CLI Study: Gastric Emptying Study Date of Exam: 01/22/25 Exam# [id number] Ordering Dr: Daya Harrell PERIOPERATIVE TECH-C PROCEDURE: GASTRIC EMPTYING STUDY 01/22/2025 REASON FOR EXAM: CHRONIC NAUSEA HISTORY OF CHOLECYSTECTOMY. PARKINSON'S. COMPARISON: NO RELEVANT PRIOR. TECHNIQUE: The patient ingested a standard meal of 1 cup of oatmeal with the radiopharmaceutical. Following ingestion, anterior and posterior gamma camera images were acquired at 60 second intervals for a total of 60 minutes. Regions of interest were drawn, and a geometric mean was used to calculate a vaqt-rkvpjwcz-stixb. Medications taken in the past 24 hours that may affect gastric emptying: None Radiopharmaceutical: 1.1 mCi of Technetium Sulfur Colloid.. FINDINGS: Percent activity remaining in stomach: 1 hour 51 % (normal 37-90%) NM/Gastric Emptying Study IMPRESSION: Normal gastric emptying study. Reading Location: [facility] CC: LIZ Harrell; Dr. Desmond Riojas MD Data Base Design Analyst: Signed Normal [facility] Cardiology Visit Reporton Cardiology Visit Report [facility] [address] [place] [address] OFFICE VISIT Date of Service: 01/18/25 MR#: [id number] Acct: [id number] Name: VIOLA BENNETT Rep #: [id number] : 1950 Provider: Dr. Marlin Onofre MD Age/Sex: 74/F Location: [facility] Status: Signed HPI HPI History of Present Illness Details: This pleasant lady is here to reestablish cardiac care with us. She was previously seen by Dr. Garzon. Per the patient's chart, she has a history of paroxysmal atrial fibrillation. However the patient is not aware of that diagnosis. She has been on apixaban. 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 Also history of Parkinson's disease and hypertension. Lately she is being worked up for dark melanotic stools by gastroenterology. She has had a colonoscopy done. An EGD is being planned for her. We are asked to evaluate her preoperative cardiovascular risk. Denies any chest pains or shortness of breath either at rest or with exertion. No orthopnea. No PND. No ankle edema. Denies any palpitations. Denies any history of CVA. Intake Vital Signs 07/15/24 17:11 01/17/25 17:49 01/18/25 08:09 Height 5 ft 2 in 5 ft 2 in Weight: 148 lb 144 lb BMI 26.3 BP 127/81 H Blood Pressure Location Lt brachial Position Sitting Respiration 16 Pulse 71 Pulse Source NIBP Intake Visit Reasons: RE-EST/CLEARANCE (BGI) Allergies cefdinir Allergy (Verified 01/18/25 09:59) Hives diphenhydramine HCl (From Benadryl) Allergy (Verified 01/18/25 09:59) Hives Sulfa (Sulfonamide Antibiotics) Allergy (Verified 01/18/25 09:59) Hives Medications ???Medication ???Instructions ???Recorded ???Confirmed ???Type galcanezumab-gnlm 120 mg/mL 120 mg subcut QMONTH Migraines 02/0601/17/25 History subcutaneous syringe (Emgality) multivitamin 1 tab PO DAILY Supplement 04/26/20 01/17/25 History divalproex 500 mg tablet,extended 500 mg PO QHS headache 01/31/21 0 01/17/25 History release 24 hr (Depakote ER) ergocalciferol (vitamin D2) 1,250 1,250 mcg PO DAILY supplement 04/1001/17/25 History mcg (50,000 unit) capsule acetaminophen 500 mg tablet 1,000 mg (2 x 500 mg) PO Q8H PRN 0 06/12/22 01/18/25 Rx PRN pain #1 TAB apixaban 5 mg tablet 5 mg PO BID Blood thinner #60 tabs 06/12/22 01/17/25 Rx sennosides 8.6 mg-docusate sodium 1 tab-cap PO DAILY 04/22/2401/17 History 50 mg tablet (Stool Softener-Stimulant Laxative) verapamil 120 mg 24 hr 240 mg PO DAILY 04/22/24 01/17/25 History capsule,extended release citalopram 20 mg tablet 30 mg PO DAILY 07/15/24 01/17/25 H istory omeprazole 40 mg capsule,delayed 40 mg PO QDAY #90 caps 12/12/24 Rx release polysaccharide iron complex 150 mg 150 mg PO QDAY 01/17/25 01/17/25 History iron capsule hokrgse-cuzgcye-ppkztby sharon capsule cap PO DAILY 01/18/25 01/18/25 H istory (Guarana capsule) ondansetron HCl 4 mg tablet 4 mg PO Q8H PRN 01/18/25 01/18/25 History potassium chloride 20 mEq 20 meq PO DAILY #90 tabs 01/18/25 Rx tablet,extended release(part/cryst) rimegepant 75 mg disintegrating 75 mg PO ONCE PRN 01/18/25 5 History tablet (Nurtec ODT) Ejection fraction %: 60 Have you fallen in the past year?: No PFSH Medical History (Updated 01/18/25 @ 10:[address] Marlin Onofre MD) Other specified disorders of bone density and structure, unspecified site Other primary thrombophilia Arthropathy, unspecified Acute embolism and thrombosis of other specified deep vein of unspecified lower extremity Anxiety disorder, unspecified Other hyperlipidemia Vitamin D deficiency Encounter for other procedures for purposes other than remedying health state Dysphonia Metabolic syndrome Fracture of unspecified part of neck of left femur, initial encounter for closed fracture Unspecified multiple injuries, initial encounter Thyroid nodule Sacroiliitis BMI 32.0-32.9,adult Melena Loss of hearing Low iron GERD (gastroesophageal reflux disease) Sleep apnea Hypertension Subcutaneous nodule Parkinson disease Generalized weakness Hypokalemia Factor V Leiden mutation Generalized weakness Chronic anticoagulation History of atrial fibrillation History of Parkinson's disease Fall Anxiety Concussion Essential hypertension Fall Presbycusis of both ears Osteopenia Malnourished Anemia Anterolisthesis Segmental and somatic dysfunction of thoracic region Vasovagal near syncope Insomnia Allergic rhinitis Migraine Hyperlipidemia Gastroesophageal reflux disease Hypertension Deep vein thrombosis Obstructive sleep apnea Depression Osteoarthritis Factor 5 Leiden mutation, heterozygous Open wound of left low (more content not included)... Normal [facility] Abdomen Single Viewon 2024 Abdomen Single View [facility] Services [address] [place], [place] [address] Abdomen Single View MR#: [id number] Acct: [id number] Name: VIOLA BENNETT Rep #: [id number] : 1950 F 74 From: Siddhartha Gilbert MD PCP: Dr. Desmond Riojas MD Status: REG CLI Study: Abdomen Single View Date of Exam: 12/29/24 Exam# [id number] Ordering Dr: Daya Harrell PERIOPERATIVE TECH-C EXAM: XR Abdomen, 1 View CLINICAL INDICATION: CHRONIC NAUSEA TECHNIQUE: Frontal supine view of the abdomen/pelvis. COMPARISON: No relevant prior studies available. FINDINGS: GASTROINTESTINAL TRACT: Fecal retention in the colon consistent with constipation. No dilation. BONES/JOINTS: Total left hip replacement. No acute fracture. RAD/Abdomen Single View IMPRESSION: Fecal retention in the colon consistent with constipation. Reading [facility] CC: PERIOPERATIVE TECH-C Daya Harrell; Dr. Desmond Riojas MD Data Base Design Analyst: Signed Normal [facility] Absolute lymphocyte countOrd ered By: Desmond Shine on 12-05-2024 Lymphocytes Auto (Unsp spec) [#/Vol] 0.93 10*3/uL 0.83-4.51 [facility] Absolute neutrophil countOrd ered By: Desmond Riojas on 12-05-2024 Neutrophils (Bld) [#/Vol] 2.6 10*3/uL 2.0-7.7 [facility] Anion gap in Serum or Plasma Ordered By: Desmond Riojas on 12-05-2024 Anion gap [Moles/Vol] 8 mmol/L 5-15 [facility] Automated lymphocyte count a s percentage of total leukocytesOrdered By: Desmond Shine on 12-05-2024 Lymphocytes/100 WBC Auto (Unsp spec) 22.4 % 19-41 [facility] BUN/creatinine ratioOrdered By: Desmond Shine on 12-05-2024 Urea nitrogen/Creatinine [Mass ratio] 22.1 mg/mg High 10-20 [facility] Basophil percentageOrdered B y: Desmond Shine on 12-05-2024 Basophils/100 WBC (Bld) 0.7 % 0-1 [facility] Bilirubin, totalOrdered By: Desmond Shine on 12-05-2024 Bilirubin [Mass/Vol] 0.48 mg/dL Normal 0.00-1.30 [facility] Comment on above: Performed By: #### L 501.9520, L500.4050, L506.1001, L100.0100 #### [facility] [address] [place], [address] CBC W/Diff, Automatedon 11-18 Absolute Lymph 0.93 X10 3/uL Normal 0.83-4.51 [facility] Comment on above: Performed By: #### L [id number], L500.4050, L506.1001, L100.0100 #### [facility] [address] [place], [address] Absolute Neut 2.6 X10 3/uL Normal 2.0-7.7 [facility] Comment on above: Performed By: #### L [id number], L500.4050, L506.1001, L100.0100 #### [facility] [address] [place], [address] Basophils/100 WBC (Bld) 0.7 % Normal 0-1 [facility] Comment on above: Performed By: #### L [id number], L500.4050, L506.1001, L100.0100 #### [facility] [address] [place], [address] Eosinophils/100 WBC (Bld) 3.6 % Normal 0-5 [facility] Comment on above: Performed By: #### L [id number], L500.4050, L506.1001, L100.0100 #### [facility] [address] [place], [address] Erythrocyte distribution width (RBC) [Ratio] 12.9 % Normal 11.6-14.6 [facility] Comment on above: Performed By: #### L 501.9520, L500.4050, L506.1001, L100.0100 #### [facility] [address] [place], [address] Hematocrit (Bld) [Volume fraction] 40.2 % Normal 37-47 [facility] Comment on above: Performed By: #### L 501.9520, L500.4050, L506.1001, L100.0100 #### [facility] [address] [place], [address] Hemoglobin (Bld) [Mass/Vol] 13.8 g/dL Normal 12.0-15.0 [facility] Comment on above: Performed By: #### L 501.9520, L500.4050, L506.1001, L100.0100 #### [facility] [address] [place], [address] IG% 0.200 Normal 0.0-0.9 [facility] Comment on above: Result Comment: IG% - Immature Granulocytes (promyelocytes, myelocytes and metamyelocytes) > 1% indicates that a LEFT SHIFT is Present. Performed By: #### L 501.9520, L500.4050, L506.1001, L100.0100 #### [facility] [address] [place], [address] Lymphocytes/100 WBC (Bld) 22.4 % Normal 19-41 [facility] Comment on above: Performed By: #### L 501.9520, L500.4050, L506.1001, L100.0100 #### [facility] [address] [place], [address] MCH (RBC) [Entitic mass] 31.7 pg Normal 27.0-32.0 [facility] Comment on above: Performed By: #### L 501.9520, L500.4050, L506.1001, L100.0100 #### [facility] [address] [place], [address] MCHC (RBC) [Mass/Vol] 34.3 g/dL Normal 32-36 [facility] Comment on above: Performed By: #### L 501.9520, L500.4050, L506.1001, L100.0100 #### [facility] [address] [place], [address] MCV (RBC) [Entitic vol] 92.2 fL Normal 81-99 [facility] Comment on above: Performed By: #### L 501.9520, L500.4050, L506.1001, L100.0100 #### [facility] [address] [place], [address] Monocytes/100 WBC (Bld) 9.9 % Normal 0-10 [facility] Comment on above: Performed By: #### L 501.9520, L500.4050, L506.1001, L100.0100 #### [facility] [address] [place], [address] Neutrophils/100 WBC (Bld) 63.2 % Normal 47-70 [facility] Comment on above: Performed By: #### L 501.9520, L500.4050, L506.1001, L100.0100 #### [facility] [address] [place], [address] Nucleated RBC (Bld) [#/Vol] 0 10*3/uL Normal 0-5 [facility] Comment on above: Performed By: #### L 501.9520, L500.4050, L506.1001, L100.0100 #### [facility] [address] [place], [address] Platelet mean volume (Bld) [Entitic vol] 10.3 fL Normal 6.2-12.0 [facility] Comment on above: Performed By: #### L 501.9520, L500.4050, L506.1001, L100.0100 #### [facility] [address] [place], [address] Platelets (Bld) [#/Vol] 186 10*3/uL Normal 150-450 [facility] Comment on above: Performed By: #### L 501.9520, L500.4050, L506.1001, L100.0100 #### [facility] [address] [place], [address] RBC (Bld) [#/Vol] 4.36 10*6/uL Normal 4.2-5.4 [facility] Comment on above: Performed By: #### L 501.9520, L500.4050, L506.1001, L100.0100 #### [facility] [address] [place], [address] RDW SD 43.8 fl Normal 35.1-43.9 [facility] Comment on above: Performed By: #### L 501.9520, L500.4050, L506.1001, L100.0100 #### [facility] [address] [place], [address] WBC (Bld) [#/Vol] 4.2 10*3/uL Low 4.4-11.0 [facility] Comment on above: Performed By: #### L 501.9520, L500.4050, L506.1001, L100.0100 #### [facility] [address] [place], [address] Carbon dioxide, total [Moles /volume] in Central venous bloodOrdered By: Desmond Riojas on 12-05-2024 CO2 [Moles/Vol] 28.2 mmol/L Normal 21.0-32.0 [facility] Comment on above: Performed By: #### L 501.9520, L500.4050, L506.1001, L100.0100 #### [facility] [address] [place], [address] Chloride assayOrdered By: Abram Riojas on 12-05-2024 Chloride [Moles/Vol] 103 mmol/L Normal 98-108 [facility] Comment on above: Performed By: #### L 501.9520, L500.4050, L506.1001, L100.0100 #### [facility] [address] [place], [address] Comprehensive Metabolic Prof ilon 12-05-2024 ALK PHOS 71 U/L Normal 35-104 [facility] Comment on above: Performed By: #### L 501.9520, L500.4050, L506.1001, L100.0100 #### [facility] [address] [place], [address] BUN/CRE 22.1 RATIO High 10-20 [facility] Comment on above: Performed By: #### L 501.9520, L500.4050, L506.1001, L100.0100 #### [facility] [address] [place], [address] GAP 8 Normal 5-15 [facility] Comment on above: Performed By: #### L 501.9520, L500.4050, L506.1001, L100.0100 #### [facility] [address] [place], [address] T PROT 7.3 g/dL Normal 5.9-8.4 [facility] Comment on above: Performed By: #### L 501.9520, L500.4050, L506.1001, L100.0100 #### [facility] [address] [place], [address] Comprehensive Metabolic Prof ilOrdered By: Desmond Riojas on 12-05-2024 AST [Catalytic activity/Vol] 21 U/L Normal <=31 [facility] Comment on above: Performed By: #### L 501.9520, L500.4050, L506.1001, L100.0100 #### [facility] [address] [place], [address] Eosinophil percentageOrdered By: Desmond Riojas on 12-05-2024 Eosinophils/100 WBC (Bld) 3.6 % 0-5 [facility] Erythrocyte distribution wid th ratioOrdered By: Desmond Riojas on 12-05-2024 Erythrocyte distribution width (RBC) [Ratio] 12.9 % 11.6-14.6 [facility] Erythrocyte distribution wid th standard deviationOrdered By: Desmond Riojas on 12-05-2024 Erythrocyte distribution width (RBC) [Entitic vol] 43.8 fL 35.1-43.9 [facility] Erythrocyte distribution width (RBC) [Ratio] 43.8 fl 35.1-43.9 [facility] GFR/1.73 sq M.predicted bartolo g non-blacks MDRD (S/P/Bld) [Vol rate/Area]Ordered By: Desmond Riojas on 12-05-2024 Estimated GFR (MDRD) Non-Af Amer 77 >60 [facility] Comment on above: mL/min/1.73m2 CKD-EP I Creatinine Equation (2020) Glomerular filtration rate ( GFR) estimation/1.73 sq m using serum, plasma, or whole bOrdered By: Desmond Riojas on 12-05-2024 GFR/1.73 sq M.predicted among non-blacks MDRD (S/P/Bld) [Vol rate/Area] 77 mL/min/{1.73_m2} Normal >60 [facility] Comment on above: mL/min/1.73m2 CKD-EP I Creatinine Equation (2020) Result Comment: mL/m in/1.73m2 CKD-EPI Creatinine Equation (2020) Performed By: #### L 501.9520, L500.4050, L506.1001, L100.0100 #### [facility] [address] [place] [address], [address] Hematocrit Auto (Bld) [Volum e fraction]Ordered By: Desmond Riojas on 12-05-2024 Hematocrit (Bld) [Volume fraction] 40.2 % 37-47 [facility] Hemoglobin measurementOrdere d By: Desmond Riojas on 12-05-2024 Hemoglobin (Bld) [Mass/Vol] 13.8 g/dL 12.0-15.0 [facility] Immature granulocytes/100 WB C Auto (Bld)Ordered By: Desmond Riojas on 12-05-2024 Immature granulocytes/100 WBC (Bld) 0.200 % 0.0-0.9 [facility] Comment on above: IG% - Immature Granu locytes (promyelocytes, myelocytes and metamyelocytes) > 1% indicates that a LEFT SHIFT is Present. L506.1001on 12-05-2024 Vitamin D 25-OH 97.9 ng/mL Normal 30-100 [facility] Comment on above: Result Comment: Angelita min D Status Deficiency: <20 ng/mL (50nmol/L) Insufficiency: 20-30 ng/mL (50-75 nmol/L) Sufficiency: 30-100 ng/mL (75-250 nmol/L) Toxicity: >100 ng/mL (>250 nmol/L) Performed By: #### L 501.9520, L500.4050, L506.1001, L100.0100 ####[facility] [address] [place], [address] Lymphocytes Auto (Unsp spec) [#/Vol]Ordered By: Desmond Riojas on 12-05-2024 Lymphocytes (Bld) [#/Vol] 0.93 10*3/uL 0.83-4.51 [facility] Lymphocytes/100 WBC Auto (Un sp spec)Ordered By: Desmond Riojas on 12-05-2024 Lymphocytes/100 WBC (Bld) 22.4 % 19-41 [facility] MCV (mean corpuscular volume ) determinationOrdered By: Desmond Riojas on 12-05-2024 MCV (RBC) [Entitic vol] 92.2 fL 81-99 [facility] Mean corpuscular hemoglobin (MCH) determinationOrdered By: Desmond Riojas on 12-05-2024 MCH (RBC) [Entitic mass] 31.7 pg 27.0-32.0 [facility] Mean corpuscular hemoglobin concentration (MCHC) determinationOrdered By: Desmond Riojas on 12-05-2024 MCHC (RBC) [Mass/Vol] 34.3 g/dL 32-36 [facility] Mean platelet volume determi nationOrdered By: Desmond Riojas on 12-05-2024 Platelet mean volume (Bld) [Entitic vol] 10.3 fL 6.2-12.0 [facility] Monocyte percentageOrdered B y: Desmond Riojas on 12-05-2024 Monocytes/100 WBC (Bld) 9.9 % 0-10 [facility] Neutrophil percentageOrdered By: Desmond Riojas on 12-05-2024 Neutrophils/100 WBC (Bld) 63.2 % 47-70 [facility] Nucleated red blood cell per centageOrdered By: Desmond Riojas on 12-05-2024 Nucleated RBC/100 WBC (Bld) [Ratio] 0 % 0-5 [facility] Platelet countOrdered By: Abram Riojas on 12-05-2024 Platelets (Bld) [#/Vol] 186 10*3/uL 150-450 [facility] Potassium measurement (mass/ volume)Ordered By: Desmond Riojas on 12-05-2024 Potassium (Unsp spec) [Mass/Vol] 4.1 mmol/L 3.3-5.1 [facility] Potassium [Moles/Vol] 4.1 mmol/L Normal 3.3-5.1 [facility] Comment on above: Performed By: #### L 501.9520, L500.4050, L506.1001, L100.0100 #### [facility] [address] [place], [address] RBC Auto (Bld) [#/Vol]Ordere d By: Desmond Riojas on 12-05-2024 RBC (Bld) [#/Vol] 4.36 10*6/uL 4.2-5.4 [facility] Serum creatinine measurement (mass/volume)Ordered By: Desmond Riojas on 12-05-2024 Creatinine [Mass/Vol] 0.80 mg/dL Normal 0.70-1.20 [facility] Comment on above: Performed By: #### L 501.9520, L500.4050, L506.1001, L100.0100 #### [facility] [address] [place], [address] Serum globulin measurementOr dered By: Desmond Riojas on 12-05-2024 Globulin (S) [Mass/Vol] 3.0 g/dL Normal 2.2-4.2 [facility] Comment on above: Performed By: #### L 501.9520, L500.4050, L506.1001, L100.0100 #### [facility] [address] [place], [address] Serum glucose measurement (m ass/volume)Ordered By: Desmond Riojas on 12-05-2024 Glucose [Mass/Vol] 102 mg/dL High 70-99 [facility] Comment on above: Performed By: #### L 501.9520, L500.4050, L506.1001, L100.0100 #### [facility] [address] [place], [address] Serum or plasma alanine peter otransferase (ALT) measurementOrdered By: Desmond Riojas on 12-05-2024 ALT [Catalytic activity/Vol] 11 U/L Normal <=34 [facility] Comment on above: Performed By: #### L 501.9520, L500.4050, L506.1001, L100.0100 #### [facility] [address] [place], [address] Serum or plasma albumin donna urement (mass/volume)Ordered By: Desmond Riojas on 12-05-2024 Albumin [Mass/Vol] 4.3 g/dL Normal 3.4-4.8 [facility] Comment on above: Performed By: #### L [id number], L500.4050, L506.1001, L100.0100 #### [facility] [address] [place], [address] Serum or plasma albumin/glob ulin mass ratioOrdered By: Desmond Riojas on 12-05-2024 Albumin/Globulin [Mass ratio] 1.4 {ratio} Normal 0.9-2.4 [facility] Comment on above: Performed By: #### L [id number], L500.4050, L506.1001, L100.0100 #### [facility] [address] [place], [address] Serum or plasma alkaline pieter sphatase measurementOrdered By: Desmond Riojas on 12-05-2024 ALP [Catalytic activity/Vol] 71 U/L 35-104 [facility] Serum or plasma calcium donna urement (mass/volume)Ordered By: Desmond Riojas on 12-05-2024 Calcium [Mass/Vol] 9.8 mg/dL Normal 7.6-11.0 [facility] Comment on above: Performed By: #### L [id number], L500.4050, L506.1001, L100.0100 #### [facility] [address], [address] Serum or plasma urea nitroge n measurement (mass/volume)Ordered By: Desmond Riojas on 12-05-2024 Urea nitrogen [Mass/Vol] 18 mg/dL Normal 4-19 [facility] Comment on above: Performed By: #### L [id number], L500.4050, L506.1001, L100.0100 #### [facility] [address] [place], [address] Sodium levelOrdered By: Desmond Riojas on 12-05-2024 Sodium [Moles/Vol] 140 mmol/L Normal 133-145 [facility] Comment on above: Performed By: #### L [id number], L500.4050, L506.1001, L100.0100 #### [facility] [address] [place], [address] TSH DL <= 0.005 mIU/L QnOrde red By: Desmond Riojas on 12-05-2024 Thyroid Stimulating Hormone (TSH) 1.290 uIU/mL 0.300-4.200 [facility] TSH Qn 1.290 uIU/mL 0.300-4.200 [facility] Thyroid Stim Hormone (TSH)on 12-05-2024 TSH 1.290 uIU/mL Normal 0.300-4.200 [facility] Comment on above: Performed By: #### L [id number], L500.4050, L506.1001, L100.0100 ####[facility] [id number] [place], [address] Total proteinOrdered By: Desmond Riojas on 12-05-2024 Protein [Mass/Vol] 7.3 g/dL 5.9-8.4 [facility] Vitamin D, 25-hydroxyOrdered By: Desmond Riojas on 12-05-2024 Vitamin D 25-Hydroxy 97.9 ng/mL 30-100 [facility] Comment on above: Vitamin D StatusDefi ciency: <20 ng/mL (50nmol/L)Insufficiency: 20-30 ng/mL (50-75 nmol/L)Sufficiency: 30-100 ng/mL (75-250 nmol/L)Toxicity: >100 ng/mL (>250 nmol/L) White blood cell (WBC) count Ordered By: Desmond Riojas on 12-05-2024 WBC (Bld) [#/Vol] 4.2 10*3/uL Low 4.4-11.0 [facility] Gastroenterology Visit Repor ton 11-24-2024 Gastroenterology Visit Report [facility] [address] [place] [address] OFFICE VISIT Date of Service: 11/24/24 MR#: [id number] Acct: [id number] Name: VIOLA BENNETT Rep #: [id number] : 1950 Provider: SUSANNA Murphy Age/Sex: 74/F Location: [facility] Status: Signed Intake Vital Signs 07/15/24 17:11 Height 5 ft 2 in Intake Visit Reasons: 3 M FU Chief Complaint: nausea Allergies cefdinir Allergy (Verified 07/15/24 17:10) Hives diphenhydramine HCl (From Benadryl) Allergy (Verified 07/15/24 17:10) Hives Sulfa (Sulfonamide Antibiotics) Allergy (Verified 07/15/24 17:10) Hives Patient : No Have you fallen in the past year?: No Nurse's Note: OV 11.24.24 Pt here for f/u. Pt reports formed bm twice a day. Pt reports abdominal pain, nausea, diarrhea, and constipation. Pt continues taking omeprazole, and mineral oil daily. Denies bloody stools. [facility] Medical History Loss of hearing Low iron GERD (gastroesophageal reflux disease) Sleep apnea Hypertension Subcutaneous nodule Parkinson disease Generalized weakness Hypokalemia Factor V Leiden mutation Generalized weakness Chronic anticoagulation History of atrial fibrillation History of Parkinson's disease Fall Anxiety Concussion Essential hypertension Fall Presbycusis of both ears Osteopenia Malnourished Anemia Anterolisthesis Segmental and somatic dysfunction of thoracic region Vasovagal near syncope Insomnia Allergic rhinitis Migraine Hyperlipidemia Gastroesophageal reflux disease Hypertension Deep vein thrombosis Obstructive sleep apnea Depression Osteoarthritis Factor 5 Leiden mutation, heterozygous Open wound of left lower leg with complication Fall as cause of accidental injury at home as place of occurrence Wears hearing aid Wears glasses Depression Anxiety Open wound Walker as ambulation aid DVT (deep venous thrombosis) High cholesterol Injury of back Injury of head and neck Migraine headache Syncope Gastric reflux Non-smoker CPAP (continuous positive airway pressure) dependence History of pain when walking History of edema Hx of echocardiogram History of stress test Cardiology follow-up encounter History of atrial fibrillation Cellulitis of left lower leg Skin necrosis 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 lower leg with complication Hematoma of left lower extremity Vision problems Cataract Back pain Segmental and somatic dysfunction of pelvic region Segmental and somatic dysfunction of lumbar region Scoliosis of lumbar spine CKD (chronic kidney disease) History of DVT (deep vein thrombosis) VALENTIN (obstructive sleep apnea) Paroxysmal atrial fibrillation Long-term use of high-risk medication Family history of coronary artery disease Family history of CVA Family history of hypertension care home use of drug Traumatic ulcer of left lower extremity Atrial fibrillation CKD (chronic kidney disease) Obesity, Class III, BMI 40-49.9 (morbid obesity) Hypertension Head injury without concussion or intracranial hemorrhage Fall due to ice or snow Surgical History History of left hip hemiarthroplasty History of incision and drainage Hx of cataract extraction History of total hysterectomy History of bilateral knee replacement History of cholecystectomy Family History Brother CAD (coronary artery disease) Mother CVA (cerebral vascular accident) CAD (coronary artery disease) Son Hypertension Daughter Hypertension Other Arthritis Cancer Diabetes Family history of CVA Family history of coronary artery disease Family history of hypertension Heart disease High cholesterol Kidney disease Thyroid disorder Social History household members: spouse housing: house number of children: 2 current occupational status: retired current occupational exposures/hazards: No pets and animals: No Smoking Status: Never smoker alcohol intake: never substance use type: does not use caffeine: Yes Type: tea what type of physical activity do you participate in: none seatbelt use: always do you feel safe at home: Yes additional social history: Does Not Take Aspirin Does Not Take Ibuprofen HPI HPI Chief Complaint: nausea Details: VIOLA BENNETT, is a 74 F who presents to the office today for f/u. BGI established .03.13 after incidental findings of CBD dilation s/p cholecystectomy. Also with constipation alternating with diarrhea. Hx of Parkinson on Carbipoda-levodopa. CT abdomen pelvis; 04.19.24 Status post cholecystectomy. Intrahepatic biliary ductal dilatation as well as th (more content not included)... Normal [facility] Gastroenterology Visit Repor ton 08-25-2024 Gastroenterology Visit Report [facility] [address] [address] OFFICE VISIT Date of Service: 08/25/24 MR#: [id number] Acct: [id number] Name: VIOLA BENNETT Rep #: [id number] : 1950 Provider: SUSANNA Murphy Age/Sex: 74/F Location: [facility] [place] Status: Signed Intake Vital Signs 04/23/24 03:16 07/15/24 17:11 Height 5 ft 2 in 5 ft 2 in Intake Visit Reasons: 3 M FU Chief Complaint: f/u Allergies cefdinir Allergy (Verified 07/15/24 17:10) Hives diphenhydramine HCl (From Benadryl) Allergy (Verified 07/15/24 17:10) Hives Sulfa (Sulfonamide Antibiotics) Allergy (Verified 07/15/24 17:10) Hives Patient : No Have you fallen in the past year?: No Nurse's Note: OV Pt here for f/u. Pt reports headaches, nausea, and abdominal pain. Takes Zofran and omeprazole daily. [facility] Medical History Loss of hearing Low iron GERD (gastroesophageal reflux disease) Sleep apnea Hypertension Subcutaneous nodule Parkinson disease Generalized weakness Hypokalemia Factor V Leiden mutation Generalized weakness Chronic anticoagulation History of atrial fibrillation History of Parkinson's disease Fall Anxiety Concussion Essential hypertension Fall Presbycusis of both ears Osteopenia Malnourished Anemia Anterolisthesis Segmental and somatic dysfunction of thoracic region Vasovagal near syncope Insomnia Allergic rhinitis Migraine Hyperlipidemia Gastroesophageal reflux disease Hypertension Deep vein thrombosis Obstructive sleep apnea Depression Osteoarthritis Factor 5 Leiden mutation, heterozygous Open wound of left lower leg with complication Fall as cause of accidental injury at home as place of occurrence Wears hearing aid Wears glasses Depression Anxiety Open wound Walker as ambulation aid DVT (deep venous thrombosis) High cholesterol Injury of back Injury of head and neck Migraine headache Syncope Gastric reflux Non-smoker CPAP (continuous positive airway pressure) dependence History of pain when walking History of edema Hx of echocardiogram History of stress test Cardiology follow-up encounter History of atrial fibrillation Cellulitis of left lower leg Skin necrosis 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 lower leg with complication Hematoma of left lower extremity Vision problems Cataract Back pain Segmental and somatic dysfunction of pelvic region Segmental and somatic dysfunction of lumbar region Scoliosis of lumbar spine CKD (chronic kidney disease) History of DVT (deep vein thrombosis) VALENTIN (obstructive sleep apnea) Paroxysmal atrial fibrillation Long-term use of high-risk medication Family history of coronary artery disease Family history of CVA Family history of hypertension care home use of drug Traumatic ulcer of left lower extremity Atrial fibrillation CKD (chronic kidney disease) Obesity, Class III, BMI 40-49.9 (morbid obesity) Hypertension Head injury without concussion or intracranial hemorrhage Fall due to ice or snow Surgical History History of left hip hemiarthroplasty History of incision and drainage Hx of cataract extraction History of total hysterectomy History of bilateral knee replacement History of cholecystectomy Family History Brother CAD (coronary artery disease) Mother CVA (cerebral vascular accident) CAD (coronary artery disease) Son Hypertension Daughter Hypertension Other Arthritis Cancer Diabetes Family history of CVA Family history of coronary artery disease Family history of hypertension Heart disease High cholesterol Kidney disease Thyroid disorder Social History household members: spouse housing: house number of children: 2 current occupational status: retired current occupational exposures/hazards: No pets and animals: No Smoking Status: Never smoker alcohol intake: never substance use type: does not use caffeine: Yes Type: tea what type of physical activity do you participate in: none seatbelt use: always do you feel safe at home: Yes additional social history: Does Not Take Aspirin Does Not Take Ibuprofen HPI HPI Chief Complaint: f/u Details: VIOLA BENNETT, is a 74 F who presents to the office today for f/u. Colonoscopy 06.30.24 Preparation of the colon was poor. Diverticulosis in the recto-sigmoid colon and in the sigmoid colon. Stool in the sigmoid colon. No specimens collected. OV 07.11.24 pt reports continued nausea and diarrhea, pt states that stool is black; is taking an iron supplement. pt reports she would like to discuss alternative prep options since her l (more content not included)... Normal [facility] CRPon 08-12-2024 C-REACTIVE PROT < 2.90 Normal 0.0-3.0 [facility] Comment on above: Result Comment: C-Re active Protein (CRP) provides useful information for the diagnosis, therapy and monitoring of inflammatory processes and associated diseases. For the evaluation of Relative Risk for Cardiovascular Disease, a High Sensitivity CRP (HSCRP) should be ordered. Performed By: #### L 501.6710, L101.9900 ####[facility] [id number] [place], [place], [id number] Erythrocyte Sed Rateon 08-12 SED RATE 6 mm/hr Normal 0-30 [facility] Comment on above: Performed By: #### L 501.6710, L101.9900 ####[facility] [address] [place], [place], [id number] CT SCAN : BRAIN W/O CONTRAST Ordered By: Layla Guillaume on 07-27-2024 Radiology Study observation (narrative) [facility] CT SCAN : BRAIN W/O CONTRAST Ordered By: Layla Guillaume on 07-25-2024 [facility] Absolute lymphocyte countOrd ered By: Сергей Vega on 12-19-2023 Lymphocytes Auto (Unsp spec) [#/Vol] 1.39 10*3/uL 0.83-4.51 [facility] Automated lymphocyte count a s percentage of total leukocytesOrdered By: Сергей Vega on 12-19-2023 Lymphocytes/100 WBC Auto (Unsp spec) 37.4 % 19-41 [facility] Basophil percentageOrdered B y: Сергей Vega on 12-19-2023 Basophils/100 WBC (Bld) 0.8 % 0-1 [facility] Chloride [Moles/Vol] 111 mmol/L 98-107 [facility] Eosinophils/100 WBC (Bld) 2.7 % 0-5 [facility] Glucose [Mass/Vol] 91 mg/dL 74-106 [facility] Hemoglobin (Bld) [Mass/Vol] 11.7 g/dL 12.0-15.0 [facility] Monocytes/100 WBC (Bld) 11.3 % 0-10 [facility] Neutrophils (Bld) [#/Vol] 1.8 10*3/uL 2.0-7.7 [facility] Neutrophils/100 WBC (Bld) 47.5 % 47-70 [facility] Potassium [Moles/Vol] 4.1 mmol/L 3.5-5.1 [facility] Sodium [Moles/Vol] 140 mmol/L 136-145 [facility] WBC (Bld) [#/Vol] 3.7 10*3/uL 4.4-11.0 [facility] Determination of erythrocyte mean corpuscular volume (MCV)Ordered By: Сергей Vega on 12-19-2023 MCV (RBC) [Entitic vol] 93.7 fL 81-99 [facility] Erythrocyte distribution wid th ratioOrdered By: Сергей Vega on 12-19-2023 Erythrocyte distribution width (RBC) [Ratio] 13.3 % 11.6-14.6 [facility] Erythrocyte distribution wid th standard deviationOrdered By: Сергей Vega on 12-19-2023 Erythrocyte distribution width (RBC) [Entitic vol] 46.0 fL 35.1-43.9 [facility] Hematocrit Auto (Bld) [Volum e fraction]Ordered By: Сергей Vega on 12-19-2023 Hematocrit (Bld) [Volume fraction] 35.5 % 37-47 [facility] Immature granulocytes/100 WB C Auto (Bld)Ordered By: Сергей Vega on 12-19-2023 Immature granulocytes/100 WBC (Bld) 0.300 % 0.0-0.9 [facility] Comment on above: IG% - Immature Granu locytes (promyelocytes, myelocytes and metamyelocytes) > 1% indicates that a LEFT SHIFT is Present. Laboratory - Chemistry and C hemistry - challengeOrdered By: Сергей Vega on 12-19-2023 CO2 [Moles/Vol] 25.0 mmol/L 21.0-32.0 [facility] Urea nitrogen/Creatinine [Mass ratio] 13.9 mg/mg 10-20 [facility] - Hematology and Cell countsOrdered By: Сергей Vega on 12-19-2023 MCH (RBC) [Entitic mass] 30.9 pg 27.0-32.0 [facility] MCHC (RBC) [Mass/Vol] 33.0 g/dL 32-36 [facility] Comment on above: Delta: 35.1 on 12/17-0544 Nucleated RBC/100 WBC (Bld) [Ratio] 0 % 0-5 [facility] Platelet mean volume (Bld) [Entitic vol] 10.0 fL 6.2-12.0 [facility] Platelets (Bld) [#/Vol] 192 10*3/uL 150-450 [facility] No Panel InformationOrdered By: Сергей Vega on 12-19-2023 Estimated Creatinine Clearance Calc 57.72 ml/min [facility] Estimated GFR (MDRD) Amer 91 mL/min >60 [facility] Comment on above: GFR Calc Estimated GFR (MDRD) Non-Af Amer 75 mL/min >60 [facility] Comment on above: Non- GFR Calc RBC Auto (Bld) [#/Vol]Ordere d By: Сергей Vega on 12-19-2023 RBC (Bld) [#/Vol] 3.79 10*6/uL 4.2-5.4 [facility] Serum or plasma calcium donna urement (mass/volume)Ordered By: Сергей Vega on 12-19-2023 Calcium [Mass/Vol] 8.6 mg/dL 8.5-10.1 [facility] Serum or plasma creatinine m easurement (mass/volume)Ordered By: Сергей Vega on 12-19-2023 Creatinine [Mass/Vol] 0.79 mg/dL 0.55-1.02 [facility] Comment on above: The validity of the calculated GFR & GFRAA in patients over 70 years has not been determined. Clinical correlation is essential. Serum or plasma urea nitroge n measurement (mass/volume)Ordered By: Сергей Vega on 12-19-2023 Urea nitrogen [Mass/Vol] 11 mg/dL 7-18 [facility] Thin prep Papanicolaou smear with manual screeningOrdered By: Сергей Vega on 12-19-2023 Thin prep Papanicolaou smear with manual screening 4 5-15 [facility] Basophil percentageOrdered B y: Giuliano Forbes on 12-18-2023 Basophil percentage 4.2 mg/dL 2.5-4.9 [facility] Bilirubin [Mass/Vol] 0.70 mg/dL 0.20-1.00 [facility] Comment on above: For patients on eltr ombopag therapy, use of Dimension Elmo TBIL is not recommended. Protein [Mass/Vol] 6.2 g/dL 6.4-8.2 [facility] Laboratory - Chemistry and C hemistry - challengeOrdered By: Giuliano Forbes on 12-18-2023 Albumin/Globulin [Mass ratio] 1.1 {ratio} 0.9-2.4 [facility] ALP [Catalytic activity/Vol] 55 U/L 45-117 [facility] ALT [Catalytic activity/Vol] 7 U/L 13-56 [facility] Globulin (S) [Mass/Vol] 3.0 g/dL 2.2-4.2 [facility] Magnesium [Mass/Vol] 2.0 mg/dL 1.6-2.6 [facility] Serum or plasma thyroid stim ulating hormone (TSH) measurement (units/volume)Ordered By: Giuliano Forbes on 12-18-2023 TSH Qn 1.96 uIU/mL 0.358-3.74 [facility] Thin prep Papanicolaou smear with manual screeningOrdered By: Giuliano Forbes on 12-18-2023 Thin prep Papanicolaou smear with manual screening 3.2 g/dL 3.2-5.0 [facility] Thin prep Papanicolaou smear with manual screening 19 U/L 15-37 [facility] Absolute lymphocyte countOrd ered By: Jared Green on 12-17-2023 Lymphocytes Auto (Unsp spec) [#/Vol] 1.29 10*3/uL 0.83-4.51 [facility] Automated lymphocyte count a s percentage of total leukocytesOrdered By: Jared Green on 12-17-2023 Lymphocytes/100 WBC Auto (Unsp spec) 25.7 % 19-41 [facility] Basophil percentageOrdered B y: Jared Green on 12-17-2023 Basophil percentage 0 SEEN /hpf 0-5 [facility] Basophils/100 WBC (Bld) 0.8 % 0-1 [facility] Bilirubin [Mass/Vol] 0.80 mg/dL 0.20-1.00 [facility] Comment on above: For patients on eltr ombopag therapy, use of Dimension Elmo TBIL is not recommended. Chloride [Moles/Vol] 103 mmol/L 98-107 [facility] Eosinophils/100 WBC (Bld) 0.8 % 0-5 [facility] Glucose [Mass/Vol] 164 mg/dL 74-106 [facility] Comment on above: Fasting Glucose resu lt greater than or equal to 126 mg/dL suggests DIABETES MELLITUS per A.D.A. criteria. Hemoglobin (Bld) [Mass/Vol] 14.2 g/dL 12.0-15.0 [facility] Monocytes/100 WBC (Bld) 8.4 % 0-10 [facility] Neutrophils (Bld) [#/Vol] 3.2 10*3/uL 2.0-7.7 [facility] Neutrophils/100 WBC (Bld) 64.1 % 47-70 [facility] Potassium [Moles/Vol] 3.1 mmol/L 3.5-5.1 [facility] Protein [Mass/Vol] 7.6 g/dL 6.4-8.2 [facility] Sodium [Moles/Vol] 135 mmol/L 136-145 [facility] WBC (Bld) [#/Vol] 5.0 10*3/uL 4.4-11.0 [facility] Bilirubin Test strip Ql (U)O rdered By: Jared Green on 12-17-2023 Bilirubin Ql (U) Negative Negative [facility] Determination of erythrocyte mean corpuscular volume (MCV)Ordered By: Jared Green on 12-17-2023 MCV (RBC) [Entitic vol] 89.4 fL 81-99 [facility] Erythrocyte distribution wid th ratioOrdered By: Jared Green on 12-17-2023 Erythrocyte distribution width (RBC) [Ratio] 12.7 % 11.6-14.6 [facility] Erythrocyte distribution wid th standard deviationOrdered By: Jared Green on 12-17-2023 Erythrocyte distribution width (RBC) [Entitic vol] 41.8 fL 35.1-43.9 [facility] Hematocrit Auto (Bld) [Volum e fraction]Ordered By: Jared Green on 12-17-2023 Hematocrit (Bld) [Volume fraction] 39.8 % 37-47 [facility] Immature granulocytes/100 WB C Auto (Bld)Ordered By: Jared Green on 12-17-2023 Immature granulocytes/100 WBC (Bld) 0.200 % 0.0-0.9 [facility] Comment on above: IG% - Immature Granu locytes (promyelocytes, myelocytes and metamyelocytes) > 1% indicates that a LEFT SHIFT is Present. Ketones Test strip Ql (U)Ord ered By: Jared Green on 12-17-2023 Ketones Ql (U) 50 mg/dl Negative [facility] - Chemistry and C hemistry - challengeOrdered By: Jared Green on 12-17-2023 Albumin/Globulin [Mass ratio] 1.2 {ratio} 0.9-2.4 [facility] ALP [Catalytic activity/Vol] 70 U/L 45-117 [facility] ALT [Catalytic activity/Vol] U/L 13-56 [facility] CO2 [Moles/Vol] 20.0 mmol/L 21.0-32.0 [facility] Globulin (S) [Mass/Vol] 3.5 g/dL 2.2-4.2 [facility] Urea nitrogen/Creatinine [Mass ratio] 15.5 mg/mg 10-20 [facility] - Hematology and Cell countsOrdered By: Jared Green on 12-17-2023 MCH (RBC) [Entitic mass] 31.9 pg 27.0-32.0 [facility] MCHC (RBC) [Mass/Vol] 35.7 g/dL 32-36 [facility] Nucleated RBC/100 WBC (Bld) [Ratio] 0 % 0-5 [facility] Platelet mean volume (Bld) [Entitic vol] 10.1 fL 6.2-12.0 [facility] Platelets (Bld) [#/Vol] 255 10*3/uL 150-450 [facility] Mucus LM Ql (Urine sed)Order ed By: Jared Green on 12-17-2023 Mucus Ql (Urine sed) 0 SEEN /hpf [facility] Nitrite Test strip Ql (U)Ord ered By: Jared Green on 12-17-2023 Nitrite Ql (U) Negative Negative [facility] No Panel InformationOrdered By: Jared Green on 12-17-2023 Urine RBC 0 SEEN /hpf 0-5 [facility] Estimated Creatinine Clearance Calc 45.70 ml/min [facility] Estimated GFR (MDRD) Amer 67 mL/min >60 [facility] Comment on above: GFR Calc Estimated GFR (MDRD) Non-Af Amer 55 mL/min >60 [facility] Comment on above: Non- GFR Calc Protein Test strip Ql (U)Ord ered By: Jared Green on 12-17-2023 Protein Ql (U) Negative Negative [facility] RBC Auto (Bld) [#/Vol]Ordere d By: Jared Green on 12-17-2023 RBC (Bld) [#/Vol] 4.45 10*6/uL 4.2-5.4 [facility] Serum or plasma calcium donna urement (mass/volume)Ordered By: Jared Green on 12-17-2023 Calcium [Mass/Vol] 9.8 mg/dL 8.5-10.1 [facility] Serum or plasma creatinine m easurement (mass/volume)Ordered By: Jared Green on 12-17-2023 Creatinine [Mass/Vol] 1.03 mg/dL 0.55-1.02 [facility] Comment on above: The validity of the calculated GFR & GFRAA in patients over 70 years has not been determined. Clinical correlation is essential. Serum or plasma urea nitroge n measurement (mass/volume)Ordered By: Jared Green on 12-17-2023 Urea nitrogen [Mass/Vol] 16 mg/dL 7-18 [facility] Squamous epithelial cells de tection in urine sediment by light microscopyOrdered By: Jared Green on 12-17-2023 Epithelial cells.squamous LM Ql (Urine sed) 0 SEEN /hpf 5-10 [facility] Thin prep Papanicolaou smear with manual screeningOrdered By: Jared Green on 12-17-2023 Thin prep Papanicolaou smear with manual screening 4.1 g/dL 3.2-5.0 [facility] Thin prep Papanicolaou smear with manual screening 18 U/L 15-37 [facility] Thin prep Papanicolaou smear with manual screening 12 5-15 [facility] Urine blood detectionOrdered By: Jared Green on 12-17-2023 RBC Ql (U) Negative Negative [facility] Urine clarityOrdered By: Venkatesh Green on 12-17-2023 Clarity (U) Clear Clear [facility] Urine color determinationOrd ered By: Jared Green on 12-17-2023 Color (U) Yellow Yellow [facility] Urine glucose detectionOrder ed By: Jared Green on 12-17-2023 Glucose Ql (U) Normal mg/dl Normal [facility] Urine leukocyte esterase det ection by dipstickOrdered By: Jared Green on 12-17-2023 Leukocyte esterase Test strip Ql (U) Negative Negative [facility] Urine pHOrdered By: Jared reyna on 12-17-2023 pH (U) 8.0 [pH] 5.0 - 8.0 [facility] Urine sediment bacteria coun t by microscopy (number/high power field)Ordered By: Jared Green on 12-17-2023 Bacteria LM.HPF (Urine sed) [#/Area] 0 /[HPF] None Seen [facility] Urine specific gravity measu rementOrdered By: Jared Green on 12-17-2023 Specific gravity (U) [Rel density] 1.015 1.002-1.030 [facility] Urine urobilinogen measureme ntOrdered By: Jared Green on 12-17-2023 Urobilinogen Ql (U) Normal mg/dl Normal [facility] Absolute lymphocyte countOrd ered By: Desmond Riojas on 11-30-2023 Lymphocytes Auto (Unsp spec) [#/Vol] 0.88 10*3/uL 0.83-4.51 [facility] Automated lymphocyte count a s percentage of total leukocytesOrdered By: Desmond Riojas on 11-30-2023 Lymphocytes/100 WBC Auto (Unsp spec) 23.3 % 19-41 [facility] Basophil percentageOrdered B y: Desmond Riojas on 11-30-2023 Basophils/100 WBC (Bld) 0.8 % 0-1 [facility] Bilirubin [Mass/Vol] 0.50 mg/dL 0.20-1.00 [facility] Comment on above: For patients on eltr ombopag therapy, use of Dimension Elmo TBIL is not recommended. Chloride [Moles/Vol] 105 mmol/L 98-107 [facility] Eosinophils/100 WBC (Bld) 6.1 % 0-5 [facility] Glucose [Mass/Vol] 83 mg/dL 74-106 [facility] Hemoglobin (Bld) [Mass/Vol] 12.7 g/dL 12.0-15.0 [facility] Monocytes/100 WBC (Bld) 10.3 % 0-10 [facility] Neutrophils (Bld) [#/Vol] 2.2 10*3/uL 2.0-7.7 [facility] Neutrophils/100 WBC (Bld) 59.2 % 47-70 [facility] Potassium [Moles/Vol] 4.0 mmol/L 3.5-5.1 [facility] Protein [Mass/Vol] 7.3 g/dL 6.4-8.2 [facility] Sodium [Moles/Vol] 139 mmol/L 136-145 [facility] WBC (Bld) [#/Vol] 3.8 10*3/uL 4.4-11.0 [facility] Determination of erythrocyte mean corpuscular volume (MCV)Ordered By: Desmond Riojas on 11-30-2023 MCV (RBC) [Entitic vol] 95.4 fL 81-99 [facility] Erythrocyte distribution wid th ratioOrdered By: Dsemond Riojas on 11-30-2023 Erythrocyte distribution width (RBC) [Ratio] 13.5 % 11.6-14.6 [facility] Erythrocyte distribution wid th standard deviationOrdered By: [facility] on 11-30-[facility]23 Erythrocyte distribution width (RBC) [Entitic vol] 47.7 fL 35.1-43.9 [facility] Hematocrit Auto (Bld) [Volum e fraction]Ordered By: [facility] on 11-30-2023 Hematocrit (Bld) [Volume fraction] 39.6 % 37-47 [facility] Immature granulocytes/100 WB C Auto (Bld)Ordered By: [facility] on 11-30-2023 Immature granulocytes/100 WBC (Bld) 0.300 % 0.0-0.9 [facility] Comment on above: IG% - Immature Granu locytes (promyelocytes, myelocytes and metamyelocytes) > 1% indicates that a LEFT SHIFT is Present. Laboratory - Chemistry and C hemistry - challengeOrdered By: [facility] on 11-30-2023 Albumin/Globulin [Mass ratio] 1.0 {ratio} 0.9-2.4 [facility] ALP [Catalytic activity/Vol] 67 U/L 45-117 [facility] ALT [Catalytic activity/Vol] 11 U/L 13-56 [facility] CO2 [Moles/Vol] 27.0 mmol/L 21.0-32.0 [facility] Globulin (S) [Mass/Vol] 3.7 g/dL 2.2-4.2 [facility] Urea nitrogen/Creatinine [Mass ratio] 16.6 mg/mg 10-20 [facility] Laboratory - Hematology and Cell countsOrdered By: [facility] Shine 11-30-2023 MCH (RBC) [Entitic mass] 30.6 pg 27.0-32.0 [facility] MCHC (RBC) [Mass/Vol] 32.1 g/dL 32-36 [facility] Nucleated RBC/100 WBC (Bld) [Ratio] 0 % 0-5 [facility] Platelet mean volume (Bld) [Entitic vol] 10.3 fL 6.2-12.0 [facility] Platelets (Bld) [#/Vol] 222 10*3/uL 150-450 [facility] No Panel InformationOrdered By: Desmond Riojas on 11-30-2023 Estimated GFR (MDRD) Amer 73 mL/min >60 [facility] Comment on above: GFR Calc Estimated GFR (MDRD) Non-Af Amer 60 mL/min >60 [facility] Comment on above: Non- GFR Calc Vitamin D 25-Hydroxy 74.1 ng/mL [facility] Comment on above: Vitamin D 25(OH) Sta tus Range Deficiency <20 ng/mL (50nmol/L) Insufficiency 20 - 30 ng/mL (50 - 75 nmol/L) Sufficiency 30 - 100 ng/mL (75 - 250 nmol/L) Toxicity >100 ng/mL (>250 nmol/L) RBC Auto (Bld) [#/Vol]Ordere d By: Desmond Riojas on 11-30-2023 RBC (Bld) [#/Vol] 4.15 10*6/uL 4.2-5.4 [facility] Serum or plasma calcium donna urement (mass/volume)Ordered By: Desmond Riojas on 11-30-2023 Calcium [Mass/Vol] 9.3 mg/dL 8.5-10.1 [facility] Serum or plasma creatinine m easurement (mass/volume)Ordered By: Desmond Riojas on 11-30-2023 Creatinine [Mass/Vol] 0.96 mg/dL 0.55-1.02 [facility] Comment on above: The validity of the calculated GFR & GFRAA in patients over 70 years has not been determined. Clinical correlation is essential. Serum or plasma thyroid stim ulating hormone (TSH) measurement (units/volume)Ordered By: Desmond Riojas on 11-30-2023 TSH Qn 1.12 uIU/mL 0.358-3.74 [facility] Serum or plasma urea nitroge n measurement (mass/volume)Ordered By: Desmond Riojas on 11-30-2023 Urea nitrogen [Mass/Vol] 16 mg/dL 7-18 [facility] Thin prep Papanicolaou smear with manual screeningOrdered By: Desmond Riojas on 11-30-2023 Thin prep Papanicolaou smear with manual screening 3.6 g/dL 3.2-5.0 [facility] Thin prep Papanicolaou smear with manual screening 13 U/L 15-37 [facility] Thin prep Papanicolaou smear with manual screening 7 5-15 [facility] Absolute lymphocyte countOrd ered By: Desmond Riojas on 06-02-2023 Lymphocytes Auto (Unsp spec) [#/Vol] 1.03 10*3/uL 0.83-4.51 [facility] Basophil percentageOrdered B y: Desmond Riojas on 06-02-2023 Basophils/100 WBC (Bld) 0.8 % 0-1 [facility] Bilirubin [Mass/Vol] 0.60 mg/dL 0.20-1.00 [facility] Comment on above: For patients on eltr ombopag therapy, use of Dimension [place]mo TBIL is not recommended. Chloride [Moles/Vol] 106 mmol/L 98-107 [facility] Eosinophils/100 WBC (Bld) 2.4 % 0-5 [facility] Glucose [Mass/Vol] 94 mg/dL 74-106 [facility] Neutrophils (Bld) [#/Vol] 2.2 10*3/uL 2.0-7.7 [facility] Neutrophils/100 WBC (Bld) 58.2 % 47-70 [facility] Potassium [Moles/Vol] 3.8 mmol/L 3.5-5.1 [facility] Protein [Mass/Vol] 7.0 g/dL 6.4-8.2 [facility] Sodium [Moles/Vol] 140 mmol/L 136-145 [facility] WBC (Bld) [#/Vol] 3.7 10*3/uL 4.4-11.0 [facility] Blood erythrocytes count (nu mber/volume)Ordered By: Desmond Riojas on 06-02-2023 RBC (Bld) [#/Vol] 4.35 10*6/uL 4.2-5.4 [facility] Blood hemoglobin measurement (mass/volume)Ordered By: Desmond Riojas on 06-02-2023 Hemoglobin (Bld) [Mass/Vol] 13.0 g/dL 12.0-15.0 [facility] Blood lymphocytes/100 leukoc ytesOrdered By: Desmond Riojas on 06-02-2023 Lymphocytes/100 WBC (Bld) 27.8 % 19-41 [facility] Blood monocytes/100 leukocyt esOrdered By: Desmond Riojas on 06-02-2023 Monocytes/100 WBC (Bld) 10.5 % 0-10 [facility] Blood platelet mean volumeOr dered By: Desmond Riojas on 06-02-2023 Platelet mean volume (Bld) [Entitic vol] 10.0 fL 6.2-12.0 [facility] Determination of erythrocyte mean corpuscular volume (MCV)Ordered By: Desmond Riojas on 06-02-2023 MCV (RBC) [Entitic vol] 94.3 fL 81-99 [facility] Hematocrit Auto (Bld) [Volum e fraction]Ordered By: Desmond Shine on 06-02-2023 Hematocrit (Bld) [Volume fraction] 41.0 % 37-47 [facility] Laboratory - Chemistry and C hemistry - challengeOrdered By: [facility] on 06-02-2023 ALP [Catalytic activity/Vol] 78 U/L 45-117 [facility] ALT [Catalytic activity/Vol] 9 U/L 13-56 [facility] CO2 [Moles/Vol] 29.0 mmol/L 21.0-32.0 [facility] Globulin (S) [Mass/Vol] 3.6 g/dL 2.2-4.2 [facility] Urea nitrogen/Creatinine [Mass ratio] 16.3 mg/mg 10-20 [facility] Laboratory - Hematology and Cell countsOrdered By: Desmond Shine 06-02-2023 Erythrocyte distribution width (RBC) [Entitic vol] 45.5 fL 35.1-43.9 [facility] Erythrocyte distribution width (RBC) [Ratio] 13.2 % 11.6-14.6 [facility] Immature granulocytes/100 WBC (Bld) 0.300 % 0.0-0.9 [facility] Comment on above: IG% - Immature Granu locytes (promyelocytes, myelocytes and metamyelocytes) > 1% indicates that a LEFT SHIFT is Present. MCH (RBC) [Entitic mass] 29.9 pg 27.0-32.0 [facility] Nucleated RBC/100 WBC (Bld) [Ratio] 0 % 0-5 [facility] MCHC Auto (RBC) [Mass/Vol]Or dered By: Desmond Riojas on 06-02-2023 MCHC (RBC) [Mass/Vol] 31.7 g/dL 32-36 [facility] No Panel InformationOrdered By: Desmond Riojas on 06-02-2023 Estimated GFR (MDRD) Amer 83 mL/min >60 [facility] Comment on above: GFR Calc Estimated GFR (MDRD) Non-Af Amer 69 mL/min >60 [facility] Comment on above: Non- GFR Calc Thyroid Stimulating Hormone (TSH) 0.61 uIU/mL 0.358-3.74 [facility] Vitamin D 25-Hydroxy 62.3 ng/mL [facility] Comment on above: Vitamin D 25(OH) Sta tus Range Deficiency <20 ng/mL (50nmol/L) Insufficiency 20 - 30 ng/mL (50 - 75 nmol/L) Sufficiency 30 - 100 ng/mL (75 - 250 nmol/L) Toxicity >100 ng/mL (>250 nmol/L) Platelets bldOrdered By: Desmond Riojas on 06-02-2023 Platelets (Bld) [#/Vol] 224 10*3/uL 150-450 [facility] Serum or plasma albumin donna urement (mass/volume)Ordered By: Desmond Riojas on 06-02-2023 Albumin [Mass/Vol] 3.4 g/dL 3.2-5.0 [facility] Serum or plasma albumin/glob ulin mass ratioOrdered By: Desmond Riojas on 06-02-2023 Albumin/Globulin [Mass ratio] 0.9 {ratio} 0.9-2.4 [facility] Serum or plasma calcium donna urement (mass/volume)Ordered By: Desmond Riojas on 06-02-2023 Calcium [Mass/Vol] 8.9 mg/dL 8.5-10.1 [facility] Serum or plasma creatinine m easurement (mass/volume)Ordered By: Desmond Riojas 06-02-2023 Creatinine [Mass/Vol] 0.86 mg/dL 0.55-1.02 [facility] Comment on above: The validity of the calculated GFR & GFRAA in patients over 70 years has not been determined. Clinical correlation is essential. Serum or plasma urea nitroge n measurement (mass/volume)Ordered By: Desmond Riojas on 06-02-2023 Urea nitrogen [Mass/Vol] 14 mg/dL 7-18 [facility] Thin prep Papanicolaou smear with manual screeningOrdered By: Desmond Riojas on 06-02-2023 Thin prep Papanicolaou smear with manual screening 11 U/L 15-37 [facility] Thin prep Papanicolaou smear with manual screening 5 5-15 [facility] Laboratory - Drug toxicology Ordered By: Dr. Munoz on 01-19-2023 Amphetamines Ql (U) Negative <1000 ng/mL [facility] Benzodiazepines Ql (U) Negative < 200 ng/mL [facility] Cannabinoids Screen Ql (U) Negative < 50 ng/mL [facility] Cocaine Ql (U) Negative < 300 ng/mL [facility] Opiates Ql (U) Negative < 300 ng/mL [facility] No Panel InformationOrdered By: Dr. Munoz on 01-19-2023 MDMA (Ecstasy) Screen Negative < 500 ng/mL [facility] Miscellaneous Test See comment [facility] Comment on above: [id number] 6+OXYCODONE-B UND (ng/mL) DRUG RESULT SCREEN CUTOFF____ Amphetamines,Urine Negative ng/mL 1000 Amphetamine test includes Amphetamine and Methamphetamine.Barbiturates Negative ng/mL 200Benzodiazepines Negative ng/mL 200Cannabinoid Negative ng/mL 20Cocaine (Metab) Negative ng/mL 300Opiates Negative ng/mL 300 Opiates test includes Codeine, Morphine, Hydromorphone, Hydrocodone. Oxycodone/Oxymorphone,Urine Negative ng/mL 300 Test includes Oxydodone and Oxymorphone. TESTING PERFORMED AT [facility]. ORIGINAL REPORT ON FILE IN LAB CONTAINS ADDITIONAL TEST SITE INFORMATION. Urine Barbiturates Screen Negative < 200 ng/mL [facility] Urine Drug Screen Comment [facility] Comment on above: CONFIRMATORY TESTING FOR ALL POSITIVE URINE DRUG SCREENRESULTS WILL ONLY BE SENT OUT UPON PHYSICIAN ORDER. VISTA Urine Drug Screen methods provide only preliminaryanalytical test results. A more specific alternate chemicalmethod must be used in order to obtain a confirmedanalytical result. Gas chromatography/mass spectrometery(GC/MS) is the preferred confirmatory method. Clinicalconsideration and professional judgement should be appliedto any drug of abuse test result, particularly whenpreliminary positive results are used. URINE TCA TESTING MUST BE ORDERED SEPARATELY. USE TESTMNEMONIC: [facility] Urine Methadone Screen Negative < 300 ng/mL [facility] Urine phencyclidine (PCP) de tectionOrdered By: Dr. Munoz on 01-19-2023 Phencyclidine Ql (U) Negative < 25 ng/mL [facility] CBC W Auto Differential pane l (Bld)on 12-11-2022 Basophils (Bld) [#/Vol] 0.04 10*3/uL Normal <0.11 [facility] Comment on above: Order Comment: Speci men Type: BLOOD SPECIMEN Ordering Facility: [facility] Address: [address] [place] [address] Performed By: #### 5 0190-8, 2276-4 #### [facility] CLIA [id number] [address] [place] [address] [place] Basophils/100 WBC (Bld) 1.0 % Normal [facility] Comment on above: Order Comment: Speci men Type: BLOOD SPECIMEN Ordering Facility: [facility] Address: [address] [place] [address] Performed By: #### 5 0190-8, 2276-4 #### [facility] CLIA [id number] [address] [place] [address] [place] Differential cell count method Nom (Bld) Auto Normal [facility] Comment on above: Order Comment: Speci men Type: BLOOD SPECIMEN Ordering Facility: [facility] Address: [address] [place], [place] [id number] Performed By: #### 5 0190-8, 2275-4 #### [facility] CLIA [id number] [address] [place] [address] [place] Eosinophils (Bld) [#/Vol] 0.10 10*3/uL Normal <0.46 [facility] Comment on above: Order Comment: Speci men Type: BLOOD SPECIMEN Ordering Facility: [facility] Address: [address] [place] [address] Performed By: #### 5 0190-8, 2275- #### [facility] CLIA [id number] [address] [place] [address] [place] Eosinophils/100 WBC (Bld) 2.5 % Normal [facility] Comment on above: Order Comment: Speci men Type: BLOOD SPECIMEN Ordering Facility: [facility] Address: [address] [place] [address] Performed By: #### 5 0190-8, 4 #### [facility] CLIA [id number] [address] [place] [address] [place] Erythrocyte distribution width (RBC) [Ratio] 13.7 % Normal 11.5-15.0 [facility] Comment on above: Order Comment: Speci men Type: BLOOD SPECIMEN Ordering Facility: [facility] Address: [address] [place], [place] [id number] Performed By: #### 5 0190-8, 2275-12 #### [facility] CLIA [id number] [address] [place] [address] [place] Hematocrit (Bld) [Volume fraction] 38.8 % Normal 36.0-46.0 [facility] Comment on above: Order Comment: Speci men Type: BLOOD SPECIMEN Ordering Facility: [facility] Address: [address] [place], [place] [id number] Performed By: #### 5 0190-8, 2275-12 #### [facility] CLIA [id number] [address] [place] [address] [place] Hemoglobin (Bld) [Mass/Vol] 13.1 g/dL Normal 11.5-15.5 [facility] Comment on above: Order Comment: Speci men Type: BLOOD SPECIMEN Ordering Facility: [facility] Address: [address] [place], [place] [id number] Performed By: #### 5 0190-8, 2275-12 #### [facility] CLIA [id number] [address] [place] [address] [place] Immature granulocytes (Bld) [#/Vol] 10*3/uL Normal <0.10 [facility] Comment on above: Order Comment: Speci men Type: BLOOD SPECIMEN Ordering Facility: [facility] Address: [address] [place] [address] Performed By: #### 5 0190-8, 2275-12 #### [facility] CLIA [id number] [address] [place] [address] [place] Immature granulocytes/100 WBC (Bld) 0.2 % Normal [facility] Comment on above: Order Comment: Speci men Type: BLOOD SPECIMEN Ordering Facility: [facility] Address: [address] [place], [place] [id number] Performed By: #### 5 0190-8, 2275-12 #### [facility] CLIA [id number] [address] [place] [address] [place] Lymphocytes (Bld) [#/Vol] 1.07 10*3/uL Normal 1.00-4.00 [facility] Comment on above: Order Comment: Speci men Type: BLOOD SPECIMEN Ordering Facility: [facility] Address: [address] [place], [place] [id number] Performed By: #### 5 0190-8, 2275- #### [facility] CLIA [id number] [address] [place] [address] [place] Lymphocytes/100 WBC (Bld) 26.4 % Normal [facility] Comment on above: Order Comment: Speci men Type: BLOOD SPECIMEN Ordering Facility: [facility] Address: [address] [place] [address] Performed By: #### 5 0190-8, 2276-4 #### [facility] CLIA [id number] [address] [place] [address] [place] MCH (RBC) [Entitic mass] 31.4 pg Normal 26.0-34.0 [facility] Comment on above: Order Comment: Speci men Type: BLOOD SPECIMEN Ordering Facility: [facility] Address: [address] [place] [address] Performed By: #### 5 0190-8, 6-4 #### [facility] CLIA [id number] [address] [place] [address] [place] MCHC (RBC) [Mass/Vol] 33.8 g/dL Normal 30.5-36.0 [facility] Comment on above: Order Comment: Speci men Type: BLOOD SPECIMEN Ordering Facility: [facility] Address: [address] [place] [address] Performed By: #### 5 0190-8, 6-4 #### [facility] CLIA [id number] [address] [place] [address] [place] MCV (RBC) [Entitic vol] 93.0 fL Normal 80.0-100.0 [facility] Comment on above: Order Comment: Speci men Type: BLOOD SPECIMEN Ordering Facility: [facility] Address: [address] [place], [place] [id number] Performed By: #### 5 0190-8, 6-4 #### [facility] CLIA [id number] [address] [place] [address] [place] Monocytes (Bld) [#/Vol] 0.44 10*3/uL Normal <0.87 [facility] Comment on above: Order Comment: Speci men Type: BLOOD SPECIMEN Ordering Facility: [facility] Address: [address] [place], [place] [id number] Performed By: #### 5 0190-8, 2275-4 #### [facility] CLIA [id number] [address] [place] [address] [place] Monocytes/100 WBC (Bld) 10.8 % Normal [facility] Comment on above: Order Comment: Speci men Type: BLOOD SPECIMEN Ordering Facility: [facility] Address: [address] [place], [place] [id number] Performed By: #### 5 0190-8, 2275- #### [facility] CLIA [id number] [address] [place] [address] [place] Neutrophils (Bld) [#/Vol] 2.40 10*3/uL Normal 1.45-7.50 [facility] Comment on above: Order Comment: Speci men Type: BLOOD SPECIMEN Ordering Facility: [facility] Address: [address] [place], [place] [id number] Performed By: #### 5 0190-8, 2275-12 #### [facility] CLIA [id number] [address] [place] [address] [place] Neutrophils/100 WBC (Bld) 59.1 % Normal [facility] Comment on above: Order Comment: Speci men Type: BLOOD SPECIMEN Ordering Facility: [facility] Address: [address] [place], [place] [id number] Performed By: #### 5 0190-8, 2275- #### [facility] CLIA [id number] [address] [place] [address] [place] Nucleated RBC (Bld) [#/Vol] 10*3/uL Normal <0.01 [facility] Comment on above: Order Comment: Speci men Type: BLOOD SPECIMEN Ordering Facility: [facility] Address: [address] [place], [place] [id number] Performed By: #### 5 0190-8, 2275-4 #### [facility] CLIA [id number] [address] [place] [address] [place] Nucleated RBC/100 WBC (Bld) [Ratio] 0.0 /100 WBC Normal [facility] Comment on above: Order Comment: Speci men Type: BLOOD SPECIMEN Ordering Facility: [facility] Address: [address] [place], [place] [id number] Performed By: #### 5 0190-8, 2275-4 #### [facility] CLIA [id number] [address] [place] [address] [place] Platelet mean volume (Bld) [Entitic vol] 9.6 fL Normal 9.0-12.7 [facility] Comment on above: Order Comment: Speci men Type: BLOOD SPECIMEN Ordering Facility: [facility] Address: [address] [place], [place] [id number] Performed By: #### 5 0190-8, 2275-4 #### [facility] CLIA [id number] [address] [place] [address] [place] Platelets (Bld) [#/Vol] 186 10*3/uL Normal 150-400 [facility] Comment on above: Order Comment: Speci men Type: BLOOD SPECIMEN Ordering Facility: [facility] Address: [address] [place] [address] Performed By: #### 5 0190-8, 2275-4 #### [facility] CLIA [id number] [address] [place] [address] [place] RBC (Bld) [#/Vol] 4.17 10*6/uL Normal 3.90-5.20 [facility] Comment on above: Order Comment: Speci men Type: BLOOD SPECIMEN Ordering Facility: [facility] Address: [address] [place] [id number] Performed By: #### 5 0190-8, 2276-4 #### [facility] CLIA [id number] [address] [place] [address] [place] WBC (Bld) [#/Vol] 4.06 10*3/uL Normal 3.70-11.00 [facility] Comment on above: Order Comment: Speci men Type: BLOOD SPECIMEN Ordering Facility: [facility] Address: [address] [place], [place] [id number] Performed By: #### 5 0190-8, 2276-4 #### [facility] [facility] CLIA [id number] [address] [place] [address] [place] CNPNon 12-11-2022 CNPN Telephone (HEMJULIAN) VIOLA BENNETT ([id number]) 1950 F Date Time Provider Department 12/11/22 LUIS FELIPE RADFORD During your visit today, we recorded the following information about you: Luis Felipe Radford DO 12/11/2022 7:04 PM Signed Can let her know that her blood counts and iron levels are doing well. Did she ever see Dr. Pandya for colonoscopy and EGD? DO Javid Amador Pss 12/13/2022 12:02 PM Signed I called and [...] plans to have it rescheduled. Javid Vinson Pss Luis Felipe Radford DO 12/14/2022 9:28 AM Signed I saw her initially in May of last year so recommend rescheduling as soon as able. DO Javid Rivers Pss 12/14/2022 10:53 AM Signed I called and left Viola know that she should try rescheduling as soon as possible and she stated understanding. Javid Vinson Pss Allergies As of Date: 12/11/2022 Noted Allergy [...] at bedtime as needed. FOR INSOMNIA - lisinopril-hydrochlorot hiazide (PRINZIDE) 20-12.5 mg ORAL per tablet Take [...] Status:Closed by JAVID BOB on 12/13/22 Normal [facility] Ferritin SerPl-mCncon 2022 Ferritin [Mass/Vol] 80.2 ng/mL Normal 14.7-205.1 [facility] Comment on above: Order Comment: Speci men Type: BLOOD SPECIMEN Ordering Facility: [facility] Address: [address] [place] [address] Performed By: #### 5 0190-8, 6-4 #### [facility] CLIA [id number] [address] [place] [address] [place] Iron and Iron binding capaci ty panelon 12-11-2022 Iron [Mass/Vol] 94 ug/dL Normal 41-186 [facility] Comment on above: Order Comment: Speci men Type: BLOOD SPECIMEN Ordering Facility: [facility] Address: [address] [place] [address] Performed By: #### 5 0190-8, 2275-4 #### [facility] CLIA [id number] [address] [place] [address] [place] Iron binding capacity [Mass/Vol] 240 ug/dL Normal 232-386 [facility] Comment on above: Order Comment: Speci men Type: BLOOD SPECIMEN Ordering Facility: [facility] Address: [address] [place] [address] Performed By: #### 5 0190-8, 2275-4 #### [facility] CLIA [id number] [address] [place] [address] [place] Iron/TIBC [Molar ratio] 39.2 % Normal 15.0-57.0 [facility] Comment on above: Order Comment: Speci men Type: BLOOD SPECIMEN Ordering Facility: [facility] Address: [address] [place], [place] [id number] Performed By: #### 5 0190-8, 2275-4 #### [facility] CLIA [id number] [address] [place] [address] [place] Absolute lymphocyte countOrd ered By: Dr. Riojas on 11-25-2022 Lymphocytes Auto (Unsp spec) [#/Vol] 0.99 10*3/uL 0.83-4.51 [facility] Basophil percentageOrdered B y: Dr. Riojas on 11-25-2022 Basophils/100 WBC (Bld) 0.6 % 0-1 [facility] Bilirubin [Mass/Vol] 0.40 mg/dL 0.20-1.00 [facility] Comment on above: For patients on eltr ombopag therapy, use of Dimension Elmo TBIL is not recommended. Chloride [Moles/Vol] 108 mmol/L 98-107 [facility] Eosinophils/100 WBC (Bld) 4.5 % 0-5 [facility] Glucose [Mass/Vol] 81 mg/dL 74-106 [facility] Neutrophils (Bld) [#/Vol] 1.8 10*3/uL 2.0-7.7 [facility] Neutrophils/100 WBC (Bld) 55.1 % 47-70 [facility] Potassium [Moles/Vol] 3.9 mmol/L 3.5-5.1 [facility] Protein [Mass/Vol] 6.8 g/dL 6.4-8.2 [facility] Sodium [Moles/Vol] 143 mmol/L 136-145 [facility] WBC (Bld) [#/Vol] 3.3 10*3/uL 4.4-11.0 [facility] Blood erythrocytes count (nu mber/volume)Ordered By: Dr. Riojas on 11-25-2022 RBC (Bld) [#/Vol] 4.47 10*6/uL 4.2-5.4 [facility] Blood hemoglobin measurement (mass/volume)Ordered By: Dr. Riojas on 11-25-2022 Hemoglobin (Bld) [Mass/Vol] 13.7 g/dL 12.0-15.0 [facility] Blood lymphocytes/100 leukoc ytesOrdered By: Dr. Riojas on 11-25-2022 Lymphocytes/100 WBC (Bld) 29.6 % 19-41 [facility] Blood monocytes/100 leukocyt esOrdered By: Dr. Riojas on 11-25-2022 Monocytes/100 WBC (Bld) 9.9 % 0-10 [facility] Blood platelet mean volumeOr dered By: Dr. Riojas on 11-25-2022 Platelet mean volume (Bld) [Entitic vol] 9.9 fL 6.2-12.0 [facility] Determination of erythrocyte mean corpuscular volume (MCV)Ordered By: Dr. Riojas on 11-25-2022 MCV (RBC) [Entitic vol] 94.2 fL 81-99 [facility] Hematocrit Auto (Bld) [Volum e fraction]Ordered By: Dr. Riojas on 11-25-2022 Hematocrit (Bld) [Volume fraction] 42.1 % 37-47 [facility] Laboratory - Chemistry and C hemistry - challengeOrdered By: Dr. Riojas on 11-25-2022 ALP [Catalytic activity/Vol] 73 U/L 45-117 [facility] ALT [Catalytic activity/Vol] 16 U/L 13-56 [facility] CO2 [Moles/Vol] 28.0 mmol/L 21.0-32.0 [facility] Globulin (S) [Mass/Vol] 3.5 g/dL 2.2-4.2 [facility] Urea nitrogen/Creatinine [Mass ratio] 23.5 mg/mg 10-20 [facility] - Hematology and Cell countsOrdered By: Dr. Riojas on 11-25-2022 Erythrocyte distribution width (RBC) [Entitic vol] 51.5 fL 35.1-43.9 [facility] Erythrocyte distribution width (RBC) [Ratio] 14.8 % 11.6-14.6 [facility] Immature granulocytes/100 WBC (Bld) 0.300 % 0.0-0.9 [facility] Comment on above: IG% - Immature Granu locytes (promyelocytes, myelocytes and metamyelocytes) > 1% indicates that a LEFT SHIFT is Present. MCH (RBC) [Entitic mass] 30.6 pg 27.0-32.0 [facility] Nucleated RBC/100 WBC (Bld) [Ratio] 0 % 0-5 [facility] ([facility]) [Mass/Vol]Or dered By: Dr. Riojas on 11-25-2022 MCHC (RBC) [Mass/Vol] 32.5 g/dL 32-36 [facility] No Panel InformationOrdered By: Dr. Riojas on 11-25-2022 Estimated GFR (MDRD) Amer 84 mL/min >60 [facility] Comment on above: GFR Calc Estimated GFR (MDRD) Non-Af Amer 69 mL/min >60 [facility] Comment on above: Non- GFR Calc Thyroid Stimulating Hormone (TSH) 1.04 uIU/mL 0.358-3.74 [facility] Vitamin D 25-Hydroxy 51.1 ng/mL [facility] Comment on above: Vitamin D 25(OH) Sta tus Range Deficiency <20 ng/mL (50nmol/L) Insufficiency 20 - 30 ng/mL (50 - 75 nmol/L) Sufficiency 30 - 100 ng/mL (75 - 250 nmol/L) Toxicity >100 ng/mL (>250 nmol/L) Platelets bldOrdered By: Dr. Riojas on 11-25-2022 Platelets (Bld) [#/Vol] 224 10*3/uL 150-450 [facility] Serum or plasma albumin donna urement (mass/volume)Ordered By: Dr. Riojas on 11-25-2022 Albumin [Mass/Vol] 3.3 g/dL 3.2-5.0 [facility] Serum or plasma albumin/glob ulin mass ratioOrdered By: Dr. Riojas on 11-25-2022 Albumin/Globulin [Mass ratio] 0.9 {ratio} 0.9-2.4 [facility] Serum or plasma calcium donna urement (mass/volume)Ordered By: Dr. Riojas on 11-25-2022 Calcium [Mass/Vol] 9.1 mg/dL 8.5-10.1 [facility] Serum or plasma creatinine m easurement (mass/volume)Ordered By: Dr. Riojas on 11-25-2022 Creatinine [Mass/Vol] 0.85 mg/dL 0.55-1.02 [facility] Comment on above: The validity of the calculated GFR & GFRAA in patients over 70 years has not been determined. Clinical correlation is essential. Serum or plasma urea nitroge n measurement (mass/volume)Ordered By: Dr. Riojas on 11-25-2022 Urea nitrogen [Mass/Vol] 20 mg/dL 7-18 [facility] Thin prep Papanicolaou smear with manual screeningOrdered By: Dr. Riojas on 11-25-2022 Thin prep Papanicolaou smear with manual screening 17 U/L 15-37 [facility] Thin prep Papanicolaou smear with manual screening 7 5-15 [facility] Absolute lymphocyte countOrd ered By: Dr. Will on 09-14-2022 Lymphocytes Auto (Unsp spec) [#/Vol] 1.03 10*3/uL 0.83-4.51 [facility] Basophil percentageOrdered B y: Dr. Will on 09-14-2022 Basophils/100 WBC (Bld) 0.6 % 0-1 [facility] Chloride [Moles/Vol] 108 mmol/L 98-107 [facility] Eosinophils/100 WBC (Bld) 7.5 % 0-5 [facility] Glucose [Mass/Vol] 93 mg/dL 74-106 [facility] Neutrophils (Bld) [#/Vol] 1.6 10*3/uL 2.0-7.7 [facility] Neutrophils/100 WBC (Bld) 49.5 % 47-70 [facility] Potassium [Moles/Vol] 3.9 mmol/L 3.5-5.1 [facility] Sodium [Moles/Vol] 141 mmol/L 136-145 [facility] WBC (Bld) [#/Vol] 3.3 10*3/uL 4.4-11.0 [facility] Blood erythrocytes count (nu mber/volume)Ordered By: Dr. Will on 09-14-2022 RBC (Bld) [#/Vol] 4.25 10*6/uL 4.2-5.4 [facility] Blood hemoglobin measurement (mass/volume)Ordered By: Dr. Will on 09-14-2022 Hemoglobin (Bld) [Mass/Vol] 12.7 g/dL 12.0-15.0 [facility] Blood lymphocytes/100 leukoc ytesOrdered By: Dr. Will on 09-14-2022 Lymphocytes/100 WBC (Bld) 31.0 % 19-41 [facility] Blood monocytes/100 leukocyt esOrdered By: Dr. Will on 09-14-2022 Monocytes/100 WBC (Bld) 11.1 % 0-10 [facility] Blood platelet mean volumeOr dered By: Dr. Will on 09-14-2022 Platelet mean volume (Bld) [Entitic vol] 9.6 fL 6.2-12.0 [facility] Determination of erythrocyte mean corpuscular volume (MCV)Ordered By: Dr. Will on 09-14-2022 MCV (RBC) [Entitic vol] 91.1 fL 81-99 [facility] Hematocrit Auto (Bld) [Volum e fraction]Ordered By: Dr. Will on 09-14-2022 Hematocrit (Bld) [Volume fraction] 38.7 % 37-47 [facility] - Chemistry and C hemistry - challengeOrdered By: Dr. Will on 09-14-2022 CO2 [Moles/Vol] 28.0 mmol/L 21.0-32.0 [facility] Magnesium [Mass/Vol] 2.1 mg/dL 1.6-2.6 [facility] Urea nitrogen/Creatinine [Mass ratio] 16.9 mg/mg 10-20 [facility] - Hematology and Cell countsOrdered By: Dr. Will on 09-14-2022 Erythrocyte distribution width (RBC) [Entitic vol] 44.4 fL 35.1-43.9 [facility] Erythrocyte distribution width (RBC) [Ratio] 13.2 % 11.6-14.6 [facility] Immature granulocytes/100 WBC (Bld) 0.300 % 0.0-0.9 [facility] Comment on above: IG% - Immature Granu locytes (promyelocytes, myelocytes and metamyelocytes) > 1% indicates that a LEFT SHIFT is Present. MCH (RBC) [Entitic mass] 29.9 pg 27.0-32.0 [facility] Nucleated RBC/100 WBC (Bld) [Ratio] 0 % 0-5 [facility] Auto (RBC) [Mass/Vol]Or dered By: Dr. Will on 09-14-2022 MCHC (RBC) [Mass/Vol] 32.8 g/dL 32-36 [facility] No Panel InformationOrdered By: Dr. Will on 09-14-2022 Estimated Creatinine Clearance Calc 47.03 ml/min [facility] Estimated GFR (MDRD) Amer 87 mL/min >60 [facility] Comment on above: GFR Calc Estimated GFR (MDRD) Non-Af Amer 72 mL/min >60 [facility] Comment on above: Non- GFR Calc Platelets bldOrdered By: Dr. Will on 09-14-2022 Platelets (Bld) [#/Vol] 181 10*3/uL 150-450 [facility] Serum or plasma calcium donna urement (mass/volume)Ordered By: Dr. Will on 09-14-2022 Calcium [Mass/Vol] 8.6 mg/dL 8.5-10.1 [facility] Serum or plasma creatinine m easurement (mass/volume)Ordered By: Dr. Will on 09-14-2022 Creatinine [Mass/Vol] 0.83 mg/dL 0.55-1.02 [facility] Comment on above: The validity of the calculated GFR & GFRAA in patients over 70 years has not been determined. Clinical correlation is essential. Serum or plasma urea nitroge n measurement (mass/volume)Ordered By: Dr. Will on 09-14-2022 Urea nitrogen [Mass/Vol] 14 mg/dL 7-18 [facility] Thin prep Papanicolaou smear with manual screeningOrdered By: Dr. Will on 09-14-2022 Thin prep Papanicolaou smear with manual screening 5 5-15 [facility] Basophil percentageOrdered B y: Dr. Ribeiro on 09-13-2022 Bilirubin [Mass/Vol] 0.40 mg/dL 0.20-1.00 [facility] Comment on above: For patients on eltr ombopag therapy, use of Dimension Elmo TBIL is not recommended. Cholesterol [Mass/Vol] 201 mg/dL <200 [facility] Comment on above: <200 mg/dL Desirable 200-240 mg/dL Borderline >240 mg/dL High Risk Protein [Mass/Vol] 6.1 g/dL 6.4-8.2 [facility] Triglyceride [Mass/Vol] 73 mg/dL <199 [facility] Comment on above: The drugs N-Acetylcy steine and Metamizole may falsely depress this assay.Serum Triglycerides Reference Interval Normal <150 mg/dL Borderline high 150 - 199 mg/dL High 200 - 499 mg/dL Very High > or = 500 mg/dL Laboratory - Chemistry and C hemistry - challengeOrdered By: Dr. Ribeiro on 09-13-2022 ALP [Catalytic activity/Vol] 65 U/L 45-117 [facility] ALT [Catalytic activity/Vol] 16 U/L 13-56 [facility] Free T4 [Mass/Vol] 1.06 ng/dL 0.76-1.46 [facility] Globulin (S) [Mass/Vol] 3.3 g/dL 2.2-4.2 [facility] No Panel InformationOrdered By: Dr. Ribeiro on 09-13-2022 Thyroid Stimulating Hormone (TSH) 1.44 uIU/mL 0.358-3.74 [facility] Serum or plasma albumin donna urement (mass/volume)Ordered By: Dr. Ribeiro on 09-13-2022 Albumin [Mass/Vol] 2.8 g/dL 3.2-5.0 [facility] Serum or plasma albumin/glob ulin mass ratioOrdered By: Dr. Ribeiro on 09-13-2022 Albumin/Globulin [Mass ratio] 0.8 {ratio} 0.9-2.4 [facility] Serum or plasma cholesterol in HDL measurement (mass/volume)Ordered By: Dr. Ribeiro on 09-13-2022 Cholesterol in HDL [Mass/Vol] 45 mg/dL >40 [facility] Comment on above: The drugs N-Acetylcy steine and Metamizole may falsely depress this assay. Reference Range HDL <40 mg/dL Low HDL Cholesterol HDL >or= 60 mg/dL High HDL Cholesterol Serum or plasma cholesterol in VLDL measurement (mass/volume)Ordered By: Dr. Ribeiro on 09-13-2022 Cholesterol in VLDL [Mass/Vol] 15 mg/dL 5-40 [facility] Serum or plasma low density lipoprotein (LDL) cholesterol measurement (mass/volume)Ordered By: Dr. Ribeiro on 09-13-2022 Cholesterol in LDL [Mass/Vol] 141 mg/dL 0-130 [facility] Thin prep Papanicolaou smear with manual screeningOrdered By: Dr. Ribeiro on 09-13-2022 Thin prep Papanicolaou smear with manual screening 11 U/L 15-37 [facility] Whole blood hemoglobin A1c/t otal hemoglobin ratio (mass fraction)Ordered By: Dr. Ribeiro on 09-13-2022 HbA1c (Bld) [Mass fraction] 5.2 % 3.8-5.6 [facility] Comment on above: Normal < 5.7 % Predi abetic 5.7 - 6.4 % Diabetic >or= 6.5 % Please note range changes. Absolute lymphocyte counton 09-12-2022 Lymphocytes Auto (Unsp spec) [#/Vol] 1.28 10*3/uL 0.83-4.51 [facility] Work Phone: Basophil percentageon 2021 Basophils/100 WBC (Bld) 0.4 % 0-1 [facility] Work Phone: Chloride [Moles/Vol] 106 mmol/L 98-107 [facility] Work Phone: Eosinophils/100 WBC (Bld) 2.4 % 0-5 [facility] Work Phone: Glucose [Mass/Vol] 94 mg/dL 74-106 [facility] Work Phone: Neutrophils (Bld) [#/Vol] 3.1 10*3/uL 2.0-7.7 [facility] Work Phone: Neutrophils/100 WBC (Bld) 61.3 % 47-70 [facility] Work Phone: Potassium [Moles/Vol] 3.6 mmol/L 3.5-5.1 [facility] Work Phone: Sodium [Moles/Vol] 139 mmol/L 136-145 [facility] Work Phone: WBC (Bld) [#/Vol] 5.1 10*3/uL 4.4-11.0 [facility] Work Phone: Blood erythrocytes count (nu mber/volume)on 09-12-2022 RBC (Bld) [#/Vol] 4.35 10*6/uL 4.2-5.4 [facility] Work Phone: Blood hemoglobin measurement (mass/volume)on 09-12-2022 Hemoglobin (Bld) [Mass/Vol] 13.1 g/dL 12.0-15.0 [facility] Work Phone: Blood lymphocytes/100 leukoc yteson 09-12-2022 Lymphocytes/100 WBC (Bld) 25.1 % 19-41 [facility] Work Phone: Blood monocytes/100 leukocyt eson 09-12-2022 Monocytes/100 WBC (Bld) 10.6 % 0-10 [facility] Work Phone: Blood platelet mean volumeon 09-12-2022 Platelet mean volume (Bld) [Entitic vol] 10.0 fL 6.2-12.0 [facility] Work Phone: Determination of erythrocyte mean corpuscular volume (MCV)on 09-12-2022 MCV (RBC) [Entitic vol] 90.8 fL 81-99 [facility] Work Phone: Glucose Glucometer (BldC) [M ass/Vol]Ordered By: Dr. Liang on 09-12-2022 Glucose [Mass/Vol] 88 mg/dL 74-106 [facility] Comment on above: MANAGEMENT OF PATIEN T CARE PER NURSING PROTOCOL Hematocrit Auto (Bld) [Volum e fraction]on 09-12-2022 Hematocrit (Bld) [Volume fraction] 39.5 % 37-47 [facility] Work Phone: INR in Blood by Coagulation assayOrdered By: Dr. Liang on 09-12-2022 INR Coag (Bld) [Relative time] 1.2 {INR} [facility] Laboratory - Chemistry and C hemistry - challengeon 09-12-2022 CO2 [Moles/Vol] 28.0 mmol/L 21.0-32.0 [facility] Work Phone: [phone] Magnesium [Mass/Vol] 2.1 mg/dL 1.6-2.6 [facility] Work Phone: [phone] Urea nitrogen/Creatinine [Mass ratio] 25.5 mg/mg 10-20 [facility] Work Phone: [phone] Laboratory - CoagulationOrde red By: Dr. Liang on 09-12-2022 aPTT Coag (Bld) [Time] 27.7 s 24.1-36.2 [facility] PT Coag (PPP) [Time] 15.1 s 11.7-14.9 [facility] - Hematology and Cell countson 09-12-2022 Erythrocyte distribution width (RBC) [Entitic vol] 44.3 fL 35.1-43.9 [facility] Work Phone: [phone] Erythrocyte distribution width (RBC) [Ratio] 13.2 % 11.6-14.6 [facility] Work Phone: [phone] Immature granulocytes/100 WBC (Bld) 0.200 % 0.0-0.9 [facility] Work Phone: [phone] Comment on above: IG% - Immature Granu locytes (promyelocytes, myelocytes and metamyelocytes) > 1% indicates that a LEFT SHIFT is Present. MCH (RBC) [Entitic mass] 30.1 pg 27.0-32.0 [facility] Work Phone: [phone] Nucleated RBC/100 WBC (Bld) [Ratio] 0 % 0-5 [facility] Work Phone: [phone] MCHC Auto (RBC) [Mass/Vol]on 09-12-2022 MCHC (RBC) [Mass/Vol] 33.2 g/dL 32-36 [facility] Work Phone: [phone] No Panel Informationon 09-12 Estimated Creatinine Clearance Calc 47.61 ml/min [facility] Work Phone: [phone] Estimated GFR (MDRD) Amer 87 mL/min >60 [facility] Work Phone: Comment on above: GFR Calc Estimated GFR (MDRD) Non-Af Amer 72 mL/min >60 [facility] Work Phone: Comment on above: Non- GFR Calc No Panel InformationOrdered By: Dr. Liang on 09-12-2022 Troponin I High Sensitivity 10 pg/mL 3.0-54.0 [facility] Comment on above: Please Note: New Jill t Units and Gender Specific Reference Ranges. For more information see Policy Stat Procedure Elmo High Sensitivity Troponin (TNIH) and attachments. Platelets bldon 09-12-2022 Platelets (Bld) [#/Vol] 204 10*3/uL 150-450 [facility] Work Phone: Serum or plasma calcium donna urement (mass/volume)on 09-12-2022 Calcium [Mass/Vol] 8.6 mg/dL 8.5-10.1 [facility] Work Phone: Serum or plasma creatinine m easurement (mass/volume)on 09-12-2022 Creatinine [Mass/Vol] 0.82 mg/dL 0.55-1.02 [facility] Work Phone: Comment on above: The validity of the calculated GFR & GFRAA in patients over 70 years has not been determined. Clinical correlation is essential. Serum or plasma urea nitroge n measurement (mass/volume)on 09-12-2022 Urea nitrogen [Mass/Vol] 21 mg/dL 7-18 [facility] Work Phone: Thin prep Papanicolaou smear with manual screeningon 09-12-2022 Thin prep Papanicolaou smear with manual screening 5 5-15 [facility] Work Phone: Vishal 09-02-2022 SHOLA Telephone ([employer]) VIOLA BENNETT ([id number]) 1950 F Date Time Provider Department 09/02/22 [...] was faxed to Dr. Pandya's office. Beatriz Moran LPN Allergies As of Date: 09/02/2022 Noted Allergy Reaction BENADRYL (DIPHENHYDRAMINE HCL) 03/20/2011 9 - Itching CEFDINIR 09/26/2012 4 - Hives SULFA (SULFONAMIDE ANTIBIOTICS) 03/20/2011 2 - Rash 9 - Itching Date Reviewed: 06/16/2022 Reviewed by: Lynnette Wellington MA - Fully Assessed Reason for Visit: Patient Question [6187] Prescriptions as of 09/02/2022 - citalopram (CELEXA) [...] at bedtime as needed. FOR INSOMNIA - lisinopril-hydrochlorot hiazide (PRINZIDE) 20-12.5 mg ORAL per tablet Take [...] malabsorption [K90.9] 06/18/2022 Encounter Status:Closed by BEATRIZ MORAN LPN on 09/02/22 [facility] Telephone (STEPAN) VIOLA BENNETT ([id number]) 1950 F Date Time Provider Department 09/02/22 LUIS FELIPE RADFORD During your visit today, we recorded the following information about you: Magnolia Ortegaarian Pss 09/02/2022 11:09 AM Signed Patient called [...] So if the colonoscopy is scheduled on a Wednesday her last dose of Eliquis can be on Wednesday morning. She can resume Eliquis the morning after the colonoscopy. Luis Felipe Radford, DO Beatriz Moran LPN 09/02/2022 3:20 PM Signed Patient notified and verbalized understanding. Beatriz Moran LPN Allergies As of Date: 09/02/2022 Noted Allergy Reaction BENADRYL (DIPHENHYDRAMINE HCL) 03/20/2011 9 - Itching CEFDINIR 09/26/2012 4 - Hives SULFA (SULFONAMIDE ANTIBIOTICS) 03/20/2011 2 - Rash 9 - Itching Date Reviewed: 06/16/2022 Reviewed by: Lynnette Wellington MA - Fully Assessed Reason for Visit: Patient Question [5797] Prescriptions as of 09/02/2022 - citalopram (CELEXA) [...] at bedtime as needed. FOR INSOMNIA - lisinopril-hydrochlorot hiazide (PRINZIDE) 20-12.5 mg ORAL per tablet Take [...] malabsorption [K90.9] 06/18/2022 Encounter Status:Closed by BEATRIZ [facility]ORAN [facility]STEPAN[facility] VIOLA BENNETT ([id number]) 1950 F Date Time Provider Department 08/26/22 LUIS FELIPE RADFORD During your visit today, we recorded the following information about you: Margot Joaquin 08/26/2022 12:43 PM Signed Pt calling about her lab results. Please contact pt and advise. Thank you! Luis Felipe Radford DO 08/27/2022 6:33 AM Signed Blood counts and iron doing well. Did she see Dr. Pandya for colonoscopy? Recheck CBC/Iron studies in about 3 months. DO Beatriz Rivers LPN 08/27/2022 8:[address] Radford- Patient has appointment with Dr. Pandya 09/15/2022. PSS- please schedule patient for CBC/Iron studies 11/16/2021 @ 10:00. No need to notify patient, she is aware of appointment date and time. Beatriz Obrien Pss 08/27/2022 8:43 AM Signed Scheduled. Allergies As of Date: 08/26/2022 Noted Allergy Reaction BENADRYL (DIPHENHYDRAMINE HCL) 03/20/2011 9 - Itching CEFDINIR 09/26/2012 4 - Hives SULFA (SULFONAMIDE ANTIBIOTICS) 03/20/2011 2 - Rash 9 - Itching Date Reviewed: 06/16/2022 Reviewed by: Lynnette Wellington MA - Fully Assessed Reason for Visit: Patient Question [7057] Prescriptions as of 08/28/2022 - citalopram (CELEXA) [...] at bedtime as needed. FOR INSOMNIA - lisinopril-hydrochlorot hiazide (PRINZIDE) 20-12.5 mg ORAL per tablet Take [...] Status:Closed by MARGOT JOAQUIN on 08/28/22 Normal [facility] CBC W Auto Differential pane l (Bld)on 08-14-2022 Basophils (Bld) [#/Vol] 0.04 10*3/uL Normal <0.11 [facility] Comment on above: Order Comment: Speci men Type: BLOOD SPECIMEN Ordering Facility: [facility] Address: [address] [place] [address] Performed By: #### 5 0190-8, 2276-4 #### [facility] CLIA [id number] [address] [place] [address] [place] OF [facility] Basophils/100 WBC (Bld) 1.0 % Normal [facility] Comment on above: Order Comment: Speci men Type: BLOOD SPECIMEN Ordering Facility: [facility] Address: [address] [place], [place] [id number] Performed By: #### 5 0190-8, [id number] #### [facility] CLIA [id number] [address] [place] [address] [place] Differential cell count method Nom (Bld) Auto Normal [facility] [facility] Comment on above: Order Comment: Speci men Type: BLOOD SPECIMEN Ordering Facility: [facility] Address: [address] [place], [place] [address] Performed By: #### 5 0190-8, 2275- #### [facility] CLIA [id number] [address] [place] [address] [place] Eosinophils (Bld) [#/Vol] 0.28 10*3/uL Normal <0.46 [facility] Comment on above: Order Comment: Speci men Type: BLOOD SPECIMEN Ordering Facility: [facility] Address: [address] [place] [address] Performed By: #### 5 0190-8, 2275-12 #### [facility] CLIA [id number] [address] [place] [address] [place] Eosinophils/100 WBC (Bld) 6.8 % Normal [facility] Comment on above: Order Comment: Speci men Type: BLOOD SPECIMEN Ordering Facility: [facility] Address: [address] [place], [place] [address] Performed By: #### 5 0190-8, 2275-12 #### [facility] CLIA [id number] [address] [place] [address] [place] Erythrocyte distribution width (RBC) [Ratio] 14.2 % Normal 11.5-15.0 [facility] Comment on above: Order Comment: Speci men Type: BLOOD SPECIMEN Ordering Facility: [facility] Address: [address] [place], [place] [address] Performed By: #### 5 0190-8, 2275- #### [facility] CLIA [id number] [address] [place] [address] [place] Hematocrit (Bld) [Volume fraction] 39.3 % Normal 36.0-46.0 [facility] Comment on above: Order Comment: Speci men Type: BLOOD SPECIMEN Ordering Facility: [facility] Address: [address] [place] [address] Performed By: #### 5 0190-8, 2275- #### [facility] CLIA [id number] [address] [place] [address] [place] Hemoglobin (Bld) [Mass/Vol] 12.7 g/dL Normal 11.5-15.5 [facility] Comment on above: Order Comment: Speci men Type: BLOOD SPECIMEN Ordering Facility: [facility] Address: [address] [place] [address] Performed By: #### 5 0190-8, 2275- #### [facility] CLIA [id number] [address] [place] [address] [place] Immature granulocytes (Bld) [#/Vol] 10*3/uL Normal <0.10 [facility] Comment on above: Order Comment: Speci men Type: BLOOD SPECIMEN Ordering Facility: [facility] Address: [address] [place], [place] [address] Performed By: #### 5 0190-8, 2275- #### [facility] CLIA [id number] [address] [place] [address] [place] Immature granulocytes/100 WBC (Bld) 0.0 % Normal [facility] Comment on above: Order Comment: Speci men Type: BLOOD SPECIMEN Ordering Facility: [facility] Address: [address] [place], [place] [address] Performed By: #### 5 0190-8, 2275- #### [facility] CLIA [id number] [address] [place] [address] [place] Lymphocytes (Bld) [#/Vol] 1.11 10*3/uL Normal 1.00-4.00 [facility] Comment on above: Order Comment: Speci men Type: BLOOD SPECIMEN Ordering Facility: [facility] Address: [address] [place] [address] Performed By: #### 5 0190-8, 2275- #### [facility] CLIA [id number] [address] [place] [address] Lymphocytes/100 WBC (Bld) 26.8 % Normal [facility] Comment on above: Order Comment: Speci men Type: BLOOD SPECIMEN Ordering Facility: [facility] Address: [address] [place] [address] Performed By: #### 5 0190-8, 2275-12 #### [facility] CLIA [id number] [address] [place] [address] [place] MCH (RBC) [Entitic mass] 30.3 pg Normal 26.0-34.0 [facility] Comment on above: Order Comment: Speci men Type: BLOOD SPECIMEN Ordering Facility: [facility] Address: [address] [place], [place] [address] Performed By: #### 5 0190-8, 2275-12 #### [facility] CLIA [id number] [address] [place] [address] [place] MCHC (RBC) [Mass/Vol] 32.3 g/dL Normal 30.5-36.0 [facility] Comment on above: Order Comment: Speci men Type: BLOOD SPECIMEN Ordering Facility: [facility] Address: [address] [place], [place] [address] Performed By: #### 5 0190-8, 2275- #### [facility] CLIA [id number] [address] [place] [address] [place] MCV (RBC) [Entitic vol] 93.8 fL Normal 80.0-100.0 [facility] Comment on above: Order Comment: Speci men Type: BLOOD SPECIMEN Ordering Facility: [facility] Address: [address] [place], [place] [address] Performed By: #### 5 0190-8, 2275-4 #### [facility] CLIA [id number] [address] [place] [address] [place] Monocytes (Bld) [#/Vol] 0.45 10*3/uL Normal <0.87 [facility] Comment on above: Order Comment: Speci men Type: BLOOD SPECIMEN Ordering Facility: [facility] Address: [address] [place] [address] Performed By: #### 5 0190-8, 2275-4 #### [facility] CLIA [id number] [address] [place] [address] [place] Monocytes/100 WBC (Bld) 10.9 % Normal [facility] Comment on above: Order Comment: Speci men Type: BLOOD SPECIMEN Ordering Facility: [facility] Address: [address] [place] [address] Performed By: #### 5 0190-8, 4 #### [facility] CLIA [id number] [address] [place] [address] [place] Neutrophils (Bld) [#/Vol] 2.26 10*3/uL Normal 1.45-7.50 [facility] Comment on above: Order Comment: Speci men Type: BLOOD SPECIMEN Ordering Facility: [facility] Address: [address] [place], [place] [address] Performed By: #### 5 0190-8, 2275-4 #### [facility] CLIA [id number] [address] [place] [address] [place] Neutrophils/100 WBC (Bld) 54.5 % Normal [facility] Comment on above: Order Comment: Speci men Type: BLOOD SPECIMEN Ordering Facility: [facility] Address: [address] [place], [place] [address] Performed By: #### 5 0190-8, 2275-4 #### [facility] CLIA [id number] [address] [place] [address] [place] Nucleated RBC (Bld) [#/Vol] 10*3/uL Normal <0.01 [facility] Comment on above: Order Comment: Speci men Type: BLOOD SPECIMEN Ordering Facility: [facility] Address: [address] [place], [place] [address] Performed By: #### 5 0190-8, 2275-4 #### [facility] CLIA [id number] [address] [place] [address] [place] Nucleated RBC/100 WBC (Bld) [Ratio] 0.0 /100 WBC Normal [facility] Comment on above: Order Comment: Speci men Type: BLOOD SPECIMEN Ordering Facility: [facility] Address: [address] [place], [place] [address] Performed By: #### 5 0190-8, 2275-4 #### [facility] CLIA [id number] [address] [place] [address] [place] Platelet mean volume (Bld) [Entitic vol] 9.7 fL Normal 9.0-12.7 [facility] Comment on above: Order Comment: Speci men Type: BLOOD SPECIMEN Ordering Facility: [facility] Address: [address] [place] [address] Performed By: #### 5 0190-8, 2275- #### [facility] CLIA [id number] [address] [place] [address] [place] Platelets (Bld) [#/Vol] 201 10*3/uL Normal 150-400 [facility] Comment on above: Order Comment: Speci men Type: BLOOD SPECIMEN Ordering Facility: [facility] Address: [address] [place] [address] Performed By: #### 5 0190-8, 2276-4 #### [facility] CLIA [id number] [address] [place] [address] [place] RBC (Bld) [#/Vol] 4.19 10*6/uL Normal 3.90-5.20 [facility] Comment on above: Order Comment: Speci men Type: BLOOD SPECIMEN Ordering Facility: [facility] Address: [address] [place] [address] Performed By: #### 5 0190-8, 2276-4 #### [facility] CLIA [id number] [address] [place] [address] [place] WBC (Bld) [#/Vol] 4.14 10*3/uL Normal 3.70-11.00 [facility] Comment on above: Order Comment: Speci men Type: BLOOD SPECIMEN Ordering Facility: [facility] Address: [address] [place] [address] Performed By: #### 5 0190-8, 2276-4 #### [facility] CLIA [id number] [address] [place] [address] [place] Ferritin SerPl-mCncon 2021 Ferritin [Mass/Vol] 66.2 ng/mL Normal 14.7-205.1 [facility] Comment on above: Order Comment: Speci men Type: BLOOD SPECIMEN Ordering Facility: [facility] Address: [address] [place] [address] Performed By: #### 2 276-4, 14975-1 #### [facility] CLIA [id number] [address] [place] [address] [place] Iron and Iron binding capaci ty panelon 08-14-2022 Iron [Mass/Vol] 45 ug/dL Normal 41-186 [facility] Comment on above: Order Comment: Speci men Type: BLOOD SPECIMEN Ordering Facility: [facility] Address: [address] [id number] Performed By: #### 2 276-4, 38419-2 #### [facility] CLIA [id number] [address] [place] [address] [place] [facility] Iron binding capacity [Mass/Vol] 298 ug/dL Normal 232-386 [facility] Comment on above: Order Comment: Speci men Type: BLOOD SPECIMEN Ordering Facility: [facility] Address: [address] [place] [address] Performed By: #### 2 276-4, 42019-7 #### [facility] CLIA [id number] [address] [place] [address] [place] Iron/TIBC [Molar ratio] 15.1 % Normal 15.0-57.0 [facility] Comment on above: Order Comment: Speci men Type: BLOOD SPECIMEN Ordering Facility: [facility] Address: [address] [place] [address] Performed By: #### 2 276-4, 73309-2 #### [facility] CLIA [id number] [address] [place] [address] [place] Absolute lymphocyte counton 07-24-2022 Lymphocytes Auto (Unsp spec) [#/Vol] 1.32 10*3/uL 0.83-4.51 [facility] Work Phone: Basophil percentageon 2021 Basophils/100 WBC (Bld) 0.6 % 0-1 [facility] Work Phone: Eosinophils/100 WBC (Bld) 6.8 % 0-5 [facility] Work Phone: Neutrophils (Bld) [#/Vol] 2.6 10*3/uL 2.0-7.7 [facility] Work Phone: Neutrophils/100 WBC (Bld) 54.4 % 47-70 [facility] Work Phone: WBC (Bld) [#/Vol] 4.8 10*3/uL 4.4-11.0 [facility] Work Phone: Blood erythrocytes count (nu mber/volume)on 07-24-2022 RBC (Bld) [#/Vol] 3.88 10*6/uL 4.2-5.4 [facility] Work Phone: Blood hemoglobin measurement (mass/volume)on 07-24-2022 Hemoglobin (Bld) [Mass/Vol] 11.6 g/dL 12.0-15.0 [facility] Work Phone: Blood lymphocytes/100 leukoc yteson 07-24-2022 Lymphocytes/100 WBC (Bld) 27.3 % 19-41 [facility] Work Phone: Blood monocytes/100 leukocyt eson 07-24-2022 Monocytes/100 WBC (Bld) 10.7 % 0-10 [facility] Work Phone: Blood platelet mean volumeon 07-24-2022 Platelet mean volume (Bld) [Entitic vol] 10.8 fL 6.2-12.0 [facility] Work Phone: Determination of erythrocyte mean corpuscular volume (MCV)on 07-24-2022 MCV (RBC) [Entitic vol] 94.3 fL 81-99 [facility] Work Phone: Erythrocyte sedimentation ra caro 07-24-2022 ESR (Bld) [Velocity] 14 mm/h 0-30 [facility] Work Phone: Hematocrit Auto (Bld) [Volum e fraction]on 07-24-2022 Hematocrit (Bld) [Volume fraction] 36.6 % 37-47 [facility] Work Phone: Laboratory - Hematology and Cell countson 07-24-2022 Erythrocyte distribution width (RBC) [Entitic vol] 53.1 fL 35.1-43.9 [facility] Work Phone: [phone] Erythrocyte distribution width (RBC) [Ratio] 15.2 % 11.6-14.6 [facility] Work Phone: Immature granulocytes/100 WBC (Bld) 0.200 % 0.0-0.9 [facility] Work Phone: Comment on above: IG% - Immature Granu locytes (promyelocytes, myelocytes and metamyelocytes) > 1% indicates that a LEFT SHIFT is Present. MCH (RBC) [Entitic mass] 29.9 pg 27.0-32.0 [facility] Work Phone: Nucleated RBC/100 WBC (Bld) [Ratio] 0 % 0-5 [facility] Work Phone: MCHC Auto (RBC) [Mass/Vol]on 07-24-2022 MCHC (RBC) [Mass/Vol] 31.7 g/dL 32-36 [facility] Work Phone: Platelets bldon 07-24-2022 Platelets (Bld) [#/Vol] 196 10*3/uL 150-450 [facility] Work Phone: Serum or plasma C reactive p rotein measurement (mass/volume)on 07-24-2022 CRP [Mass/Vol] mg/L 0.0-3.0 [facility] Work Phone: Comment on above: C-Reactive Protein ( CRP) provides useful information for thediagnosis, therapy and monitoring of inflammatory processesand associated diseases. For the evaluation of Relative Riskfor Cardiovascular Disease, a High Sensitivity CRP (HSCRP)should be ordered. Vishal 07-22-2022 [facility] Telephone (STEPAN) VIOLA BENNETT ([id number]) 1950 F Date Time Provider Department 07/22/22 LUIS FELIPE RADFORD During your visit today, we recorded the following information about you: Magnolia Leo Pss 07/22/2022 1:04 PM Signed Patient called asking if she is to have any appointments scheduled with Dr. Radford. Please advise. Zaria Ortega LPN 07/22/2022 1:23 PM Signed Appears pt. Needs to have CBC/Iron studies the week of or around there. PSS please reach out to pt. And schedule. Does not say anything about needing a visit. Zaria Yesi Ortega LPN Margot Joaquin 07/22/2022 2:50 PM Signed Spoke with PT [...] Fully Assessed Reason for Visit: Patient Question [4877] Prescriptions as of 07/23/2022 - citalopram (CELEXA) [...] at bedtime as needed. FOR INSOMNIA - lisinopril-hydrochlorot hiazide (PRINZIDE) 20-12.5 mg ORAL per tablet Take [...] malabsorption [K90.9] 06/18/2022 Encounter Status:Closed by ZARIA ORTEGA on 07/23/22 [facility] CNPRadha 06-22-2022 CNPN Telephone (UCWSTR) VIOLA BENNETT ([id number]) 1950 F Date Time Provider Department 06/22/22 [facility] During your visit today, we recorded the following information about you: RAMESH Rodríguez 06/22/2022 8:56 AM Signed Daughter Pau called in to see if there is a specific place she could find Vitamin D 2 for her mom. All she has found so far is Vitamin D 3. Please call Pau with the information. RAMESH Rodríguez LPN 06/22/2022 2:14 PM Signed Patient's daughter is asking if patient can start Vitamin D2? They were told at the OV to wait until labs were resulted. Beatriz Radford DO 06/22/2022 2:18 PM Signed I did not specifically check her vitamin D level, but no harm in starting an xpyx-btf-cylcnxc vitamin D supplement. Typical dose would be 2000 units daily. DO Beatriz Rivers LPN 06/22/2022 3:02 PM Signed Patient's daughter notified. Beatriz Moran LPN Allergies As of Date: 06/22/2022 Noted Allergy Reaction BENADRYL (DIPHENHYDRAMINE HCL) 03/20/2011 9 - Itching CEFDINIR 09/26/2012 4 - Hives SULFA (SULFONAMIDE ANTIBIOTICS) 03/20/2011 2 - Rash 9 - Itching Date Reviewed: 06/16/2022 Reviewed by: Lynnette Wellington MA - Fully Assessed Reason for Visit: Patient Question [1477] Prescriptions as of 06/22/2022 - citalopram (CELEXA) [...] at bedtime as needed. FOR INSOMNIA - lisinopril-hydrochlorot hiazide (PRINZIDE) 20-12.5 mg ORAL per tablet Take [...] malabsorption [K90.9] 06/18/2022 Encounter Status:Closed by BEATRIZ MORAN LPN on 06/22/22 [facility] Vishal 06-18-2022 SHOLA Telephone (HEMJULIAN) VIOLA BENNETT ([id number]) 1950 F Date Time Provider Department 06/18/22 LUIS FELIPE RADFORD During your visit today, we recorded the following information about you: Luis Felipe Flores DO Prabhakar 06/18/2022 6:06 AM Signed Can let her know that her iron saturation is still little bit low so I recommend 2 doses of iron sucrose. Check CBC/BMP/iron studies about 4 to 6 weeks after completing the 2 doses. DO Pau Rivers 06/18/2022 3:07 PM Signed LM for patient to return call. When patient calls, please warm transfer to [facility] PSS to schedule below. Pau Santana 06/18/2022 3:28 PM Signed Patient returned call and scheduled as directed. Patient stated that she just started (today) taking prescription iron from Dr. Riojas - Polysaccharide iron - 150 mg tablets, 1 per mouth per day for 30 days. Please advise if we should still do iron sucrose infusions. She is also taking Vitamin D2 once/week but hasn't started that yet. Pau Galloway LPN 06/18/2022 4:24 PM Signed Do you want to address the new oral iron? Would you like me to let Dr Riojas know she is getting infusions? Marce Radford DO 06/19/2022 1:51 PM Signed If she is tolerating the oral iron fairly well then we can skip the iron sucrose infusions and just recheck CBC/iron studies in about 8 weeks. DO Beatriz Rivers LPN 06/19/2022 2:18 PM Signed Left message for patient to contact office regarding oral vs iron infusion and rechecking labs. Beatriz Moran LPN 06/19/2022 2:27 PM Signed Patient just started oral iron yesterday and is tolerating it so far. PSS- please schedule patient for CBC/iron studies 08/14/2022 @10:00. No need to notify patient, she is aware. Please cancel iron infusions. Patient is aware that if for any reason she cannot tolerate oral iron she needs to call back to reschedule iron infusions. Beatriz Obrien Pss 06/19/2022 3:08 PM Signed Schedule [...] at bedtime as needed. FOR INSOMNIA - lisinopril-hydrochlorot hiazide (PRINZIDE) 20-12.5 mg ORAL pe (more content not included)... Normal [facility] BETA 2 GLYCOPROTEIN, IGGon 0 06-16-2022 Beta 2 glycoprotein 1 IgG IA Qn <9 Normal <20 [facility] Comment on above: Order Comment: Speci men Type: BLOOD SPECIMEN Ordering Facility: [facility] Address: [address] [place] [address] Result Comment: <20 SGU Negative 20-80 SGU Low Positive >80 SGU High Positive These results were obtained with the [employer] QUANTA Lite B2 GPI IgG MIKE. B2 GPI IgG values obtained with different manufacturers' assay methods may not be used interchangeably. The magnitude of the reported IgG levels cannot be correlated to an endpoint titer. Performed By: #### 2 276-4, 28095-9 #### [facility] CLIA [id number] [address] [facility] BETA 2 GLYCOPROTEIN, IGMon 0 06-16-2022 Beta 2 glycoprotein 1 IgM IA Qn <9 Normal <20 [facility] Comment on above: Order Comment: Indra black Type: BLOOD SPECIMEN Ordering Facility: [facility] Address: [address] [place] [address] Result Comment: <20 SMU Negative 20-80 SMU Low Positive >80 SMU High positive These results were obtained with the [employer] QUANTA Lite B2 GPI IgM MIKE. B2 GPI IgM values obtained with different manufacturers' assay methods may not be used interchangeably. The magnitude of the reported IgM levels cannot be correlated to an endpoint titer. Performed By: #### 2 276-4, 41230-9 #### [facility] CLIA [id number] [address] [place] [address] CARDIOLIPIN IGG ABSon 2021 Cardiolipin IgG IA Qn (S) <9.0 Normal <15.0 [facility] Comment on above: Order Comment: [facility] Type: BLOOD SPECIMEN Ordering Facility: [facility] Address: [address] [place] [address] Result Comment: <15 GPL Negative 15-20 GPL Indeterminate >20 GPL Positive The following results were obtained with the [employer] QUANTA Lite JALEN IgG III MIKE. Cardiolipin IgG values obtained with the different manufacturers' assay methods may not be used interchangeably. The magnitude of the reported IgG levels cannot be correlated to an endpoint titer. Performed By: #### 2 276-4, 91297-0 #### [facility] CLIA [id number] [address] [place] [address] [place] CARDIOLIPIN IGM ABSon 2021 Cardiolipin IgM IA Qn (S) <9.0 Normal <12.5 [facility] Comment on above: Order Comment: Indra black Type: BLOOD SPECIMEN Ordering Facility: [facility] Address: [address] [place] [address] Result Comment: <12. 5 MPL Negative 12.5-20 MPL Indeterminate >20 MPL Positive The following results were obtained with the [employer] QUANTA Lite JALEN IgM III MIKE. Cardiolipin IgM values obtained with the different manufacturers' assay methods may not be used interchangeably. The magnitude of the reported IgM levels cannot be correlated to an endpoint titer. ??? Performed By: #### 5 0190-8, 2276-4 #### [facility] CLIA [id number] [address] [place] [address] [place] CBC W Auto Differential pane l (Bld)on 06-16-2022 Basophils (Bld) [#/Vol] 0.03 10*3/uL Normal <0.11 [facility] Comment on above: Order Comment: Speci men Type: BLOOD SPECIMEN Ordering Facility: [facility] Address: [address] [place] [address] Performed By: #### 2 276-4, 90388-6 #### [facility] CLIA [id number] [address] [place] [address] [place] Basophils/100 WBC (Bld) 0.7 % Normal [facility] Comment on above: Order Comment: Speci men Type: BLOOD SPECIMEN Ordering Facility: [facility] Address: [address] [address] Performed By: #### 2 276-4, 85379-5 #### [facility] CLIA [id number] [address] [place] [address] [place] Differential cell count method Nom (Bld) Auto Normal [facility] Comment on above: Order Comment: Speci men Type: BLOOD SPECIMEN Ordering Facility: [facility] Address: [address] Performed By: #### 2 276-4, 39731-9 #### [facility] CLIA [id number] [address] [place] [address] [place] Eosinophils (Bld) [#/Vol] 0.26 10*3/uL Normal <0.46 [facility] Comment on above: Order Comment: Speci men Type: BLOOD SPECIMEN Ordering Facility: [facility] Address: [address] Performed By: #### 2 276-4, 24980-1 #### [facility] CLIA [id number] [address] [place] [address] [place] Eosinophils/100 WBC (Bld) 5.9 % Normal [facility] Comment on above: Order Comment: Speci men Type: BLOOD SPECIMEN Ordering Facility: [facility] Address: [address] [place], [place] [address] Performed By: #### 2 276-4, 81158-8 #### [facility] CLIA [id number] [address] [place] [address] [place] Erythrocyte distribution width (RBC) [Ratio] 17.9 % High 11.5-15.0 [facility] Comment on above: Order Comment: Speci men Type: BLOOD SPECIMEN Ordering Facility: [facility] Address: [address] [place], [place] [address] Performed By: #### 2 276-4, 12873-9 #### [facility] CLIA [id number] [address] [place] [address] [place] Hematocrit (Bld) [Volume fraction] 32.1 % Low 36.0-46.0 [facility] Comment on above: Order Comment: Speci men Type: BLOOD SPECIMEN Ordering Facility: [facility] Address: [address] [place] [id number] Performed By: #### 2 276-4, 37138-8 #### [facility] CLIA [id number] [address] [place] [address] [place] Hemoglobin (Bld) [Mass/Vol] 10.1 g/dL Low 11.5-15.5 [facility] Comment on above: Order Comment: Speci men Type: BLOOD SPECIMEN Ordering Facility: [facility] Address: [address] [place] [address] Performed By: #### 2 276-4, 14483-7 #### [facility] CLIA [id number] [address] [place] IMMATURE GRAN % 0.2 % Normal [facility] Comment on above: Order Comment: Speci men Type: BLOOD SPECIMEN Ordering Facility: [facility] Address: [address] [place], [place] [address] Performed By: #### 2 276-4, 46884-1 #### [facility] CLIA [id number] [facility] [place] [address] [place] IMMATURE GRAN ABS <0.03 Normal <0.10 [facility] Comment on above: Order Comment: Speci men Type: BLOOD SPECIMEN Ordering Facility: [facility] Address: [address] [place], [place] [id number] Performed By: #### 2 276-4, 92899-0 #### [facility] CLIA [id number] [address] [place] [address] [place] Lymphocytes (Bld) [#/Vol] 0.98 10*3/uL Low 1.00-4.00 [facility] Comment on above: Order Comment: Speci men Type: BLOOD SPECIMEN Ordering Facility: [facility] Address: [address] [place], [place] [address] Performed By: #### 2 276-4, 95826-7 #### [facility] CLIA [id number] [address] [place] [address] [place] Lymphocytes/100 WBC (Bld) 22.4 % Normal [facility] Comment on above: Order Comment: Speci men Type: BLOOD SPECIMEN Ordering Facility: [facility] Address: [address] [place] [address] Performed By: #### 2 276-4, 57808-1 #### [facility] CLIA [id number] [address] [place] [address] [place] MCH (RBC) [Entitic mass] 29.9 pg Normal 26.0-34.0 [facility] Comment on above: Order Comment: Speci men Type: BLOOD SPECIMEN Ordering Facility: [facility] Address: [address] Performed By: #### 2 276-4, 98005-6 #### [facility] CLIA [id number] [address] [place] [address] [place] MCHC (RBC) [Mass/Vol] 31.5 g/dL Normal 30.5-36.0 [facility] Comment on above: Order Comment: Speci men Type: BLOOD SPECIMEN Ordering Facility: [facility] Address: [address] Performed By: #### 2 276-4, 75552-3 #### [facility] CLIA [id number] [address] [place] [address] [place] MCV (RBC) [Entitic vol] 95.0 fL Normal 80.0-100.0 [facility] Comment on above: Order Comment: Speci men Type: BLOOD SPECIMEN Ordering Facility: [facility] Address: [address] Performed By: #### 2 276-4, 51471-6 #### [facility] CLIA [id number] [address] [place] [address] [place] Monocytes (Bld) [#/Vol] 0.54 10*3/uL Normal <0.87 [facility] Comment on above: Order Comment: Speci men Type: BLOOD SPECIMEN Ordering Facility: [facility] Address: [address] Performed By: #### 2 276-4, 33137-7 #### [facility] CLIA [id number] [address] [place] [address] [place] Monocytes/100 WBC (Bld) 12.4 % Normal [facility] Comment on above: Order Comment: Speci men Type: BLOOD SPECIMEN Ordering Facility: [facility] Address: [address] Performed By: #### 2 276-4, 33807-9 #### [facility] CLIA [id number] [address] [place] [address] [place] Neutrophils (Bld) [#/Vol] 2.55 10*3/uL Normal 1.45-7.50 [facility] Comment on above: Order Comment: Speci men Type: BLOOD SPECIMEN Ordering Facility: [facility] Address: [address] [place] [id number] Performed By: #### 2 276-4, 30439-0 #### [facility] CLIA [id number] [address] [place] [address] [place] Neutrophils/100 WBC (Bld) 58.4 % Normal [facility] Comment on above: Order Comment: Speci men Type: BLOOD SPECIMEN Ordering Facility: [facility] Address: [address] [place], [place] [address] Performed By: #### 2 276-4, 95021-1 #### [facility] CLIA [id number] [address] [place] [address] [place] Nucleated RBC (Bld) [#/Vol] 10*3/uL Normal <0.01 [facility] Comment on above: Order Comment: Speci men Type: BLOOD SPECIMEN Ordering Facility: [facility] Address: [address] [place] Performed By: #### 2 276-4, 84604-2 #### [facility] CLIA [id number] [address] [place] [address] [place] Nucleated RBC/100 WBC (Bld) [Ratio] 0.0 /100 WBC Normal [facility] Comment on above: Order Comment: Speci men Type: BLOOD SPECIMEN Ordering Facility: [facility] Address: [address] [place] [id number] Performed By: #### 2 276-4, 02484-1 #### [facility] CLIA [id number] [address] [place] [address] [place] Platelet mean volume (Bld) [Entitic vol] 8.8 fL Low 9.0-12.7 [facility] Comment on above: Order Comment: Speci men Type: BLOOD SPECIMEN Ordering Facility: [facility] Address: [address] [place] [address] Performed By: #### 2 276-4, 00673-3 #### [facility] CLIA [id number] [address] [place] [address] [place] Platelets (Bld) [#/Vol] 314 10*3/uL Normal 150-400 [facility] Comment on above: Order Comment: Speci men Type: BLOOD SPECIMEN Ordering Facility: [facility] Address: [address] [place] [address] Performed By: #### 2 276-4, 57229-7 #### [facility] CLIA [id number] [address] [place] [address] [place] RBC (Bld) [#/Vol] 3.38 10*6/uL Low 3.90-5.20 [facility] Comment on above: Order Comment: Speci men Type: BLOOD SPECIMEN Ordering Facility: [facility] Address: [address] [place], [place] [address] Performed By: #### 2 276-4, 03463-1 #### [facility] CLIA [id number] [address] [place] [address] [place] WBC (Bld) [#/Vol] 4.37 10*3/uL Normal 3.70-11.00 [facility] Comment on above: Order Comment: Speci men Type: BLOOD SPECIMEN Ordering Facility: [facility] Address: [address] [place] [address] Performed By: #### 2 276-4, 59617-0 #### [facility] CLIA [id number] [address] [place] [address] [place] Abs Immature Gran <0.10 k/uL [facility] Basophils (Bld) [#/Vol] 0.03 10*3/uL <0.11 k/uL [facility] Basophils/100 WBC (Bld) 0.7 % C [facility] Differential cell count method Nom (Bld) Auto [facility] Eosinophils (Bld) [#/Vol] 0.26 10*3/uL <0.46 k/uL [facility] Eosinophils/100 WBC (Bld) 5.9 % [facility] Erythrocyte distribution width (RBC) [Ratio] 17.9 % High 11.5 - 15.0 % [facility] Hematocrit (Bld) [Volume fraction] 32.1 % Low 36.0 - 46.0 % [facility] Hemoglobin (Bld) [Mass/Vol] 10.1 g/dL Low 11.5 - 15.5 g/dL [facility] Immature Gran % 0.2 % [facility] Lymphocytes (Bld) [#/Vol] 0.98 10*3/uL Low 1.00 - 4.00 k/uL [facility] Lymphocytes/100 WBC (Bld) 22.4 % [facility] MCH (RBC) [Entitic mass] 29.9 pg 26.0 - 34.0 pg [facility] MCHC (RBC) [Mass/Vol] 31.5 g/dL 30.5 - 36.0 g/dL [facility] MCV (RBC) [Entitic vol] 95.0 fL 80.0 - 100.0 fL [facility] Monocytes (Bld) [#/Vol] 0.54 10*3/uL <0.87 k/uL [facility] Monocytes/100 WBC (Bld) 12.4 % [facility] Neutrophils (Bld) [#/Vol] 2.55 10*3/uL 1.45 - 7.50 k/uL [facility] Neutrophils/100 WBC (Bld) 58.4 % [facility] Nucleated RBC (Bld) [#/Vol] <0.01 k/uL [facility] Nucleated RBC/100 WBC (Bld) [Ratio] 0.0 /100 WBC [facility] Platelet mean volume (Bld) [Entitic vol] 8.8 fL Low 9.0 - 12.7 fL [facility] Platelets (Bld) [#/Vol] 314 10*3/uL 150 - 400 k/uL [facility] RBC (Bld) [#/Vol] 3.38 10*6/uL Low 3.90 - 5.2 0 m/uL [facility] WBC (Bld) [#/Vol] 4.37 10*3/uL 3.70 - 11.00 k/uL [facility] CNOVSPon 06-16-2022 CNOVSP Visit (SP) Office (HEMAWS) VIOLA BENNETT ([id number]) 1950 F Date Time Provider Department 06/16/22 3:00 PM LUIS FELIPE RADFORD During your visit today, we recorded the following information about you: Temperature Pulse Blood pressure 98.2 degrees 76/minute 100/52 Luis Felipe Radford DO 06/16/2022 3:50 PM Signed [...] Compression stockings on. SKIN: No jaundice. 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 No focal motor [...] to Dr. Pandya for EGD and colonoscopy. (K61.290) Chronic deep vein thrombosis (DVT) of both lower extremities, unspecified vein (HCC) (D68.9) Coagulation defect ([facility]) Assessment: -B/L DVT 2009. 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 -Had persis (more content not included)... Normal [facility] Cardiolipin IgA Ser IA-aCnco n 06-16-2022 Cardiolipin IgA IA Qn (S) 9.7 [APL'U] Normal <12.0 [facility] Comment on above: Order Comment: Speci men Type: BLOOD SPECIMEN Ordering Facility: [facility] Address: [address] [place] [address] Result Comment: <12 APL Negative 12-20 APL Indeterminate >20 APL Positive The following results were obtained with the [employer] JALEN IgA III MIKE. Cardiolipin IgA values obtained with the different manufacturers' assay methods may not be used interchangeably. The magnitude of the reported IgA levels cannot be correlated to an endpoint titer. Performed By: #### 2 276-4, 96836-1 #### [facility] CLIA [id number] [address] [place] [address] [place] Ferritin SerPl-mCncon 2021 Ferritin [Mass/Vol] 365.0 ng/mL High 14.7-205.1 [facility] Comment on above: Order Comment: Speci men Type: BLOOD SPECIMEN Ordering Facility: [facility] Address: [address] [place], [place] [address] Performed By: #### 5 0190-8, 6-4 #### [facility] CLIA [id number] [address] [place] [address] [place] Iron and Iron binding capaci ty panelon 06-16-2022 Iron [Mass/Vol] 39 ug/dL Low 41-186 [facility] Comment on above: Order Comment: Speci men Type: BLOOD SPECIMEN Ordering Facility: [facility] Address: [address] [place] [address] Performed By: #### 5 0190-8, 2275-4 #### [facility] CLIA [id number] [address] [place] [address] [place] [facility] Iron binding capacity [Mass/Vol] 251 ug/dL Normal 232-386 [facility] Comment on above: Order Comment: Speci men Type: BLOOD SPECIMEN Ordering Facility: [facility] Address: [address] [place], [place] [address] Performed By: #### 5 0190-8, 2275-4 #### [facility] CLIA [id number] [address] [place] [address] [place] Iron/TIBC [Molar ratio] 15.5 % Normal 15.0-57.0 [facility] Comment on above: Order Comment: Speci men Type: BLOOD SPECIMEN Ordering Facility: [facility] Address: [address] [place], [place] [address] Performed By: #### 5 0190-8, 2275-4 #### [facility] CLIA [id number] [address] [place] [address] [place] RETIC COUNTon 06-16-2022 Reticulocytes (Bld) [#/Vol] 0.39802 10*3/uL High 0.018 - 0.100 M/uL [facility] Retics #on 06-16-2022 Reticulocytes (Bld) [#/Vol] 0.00353 10*3/uL High 0.018-0.100 [facility] Comment on above: Order Comment: Speci men Type: BLOOD SPECIMEN Ordering Facility: [facility] Address: [address] [place] [address] Performed By: #### 2 276-4, 69150-2 #### [facility] CLIA [id number] [address] [place] [address] [place] Reticulocytes (Bld) [#/Vol]o n 06-16-2022 Reticulocytes/100 RBC (Bld) 3.3 % High 0.4-2.0 [facility] Comment on above: Order Comment: Speci men Type: BLOOD SPECIMEN Ordering Facility: [facility] Address: [address] [place] [address] Performed By: #### 2 276-4, 27424-3 #### [facility] CLIA [id number] [address] [place] [address] [place] Reticulocytes/100 RBC (Bld) 3.3 % High 0.4 - 2.0 % [facility] Absolute lymphocyte counton 06-15-2022 Lymphocytes Auto (Unsp spec) [#/Vol] 0.71 10*3/uL 0.83-4.51 [facility] Work Phone: Basophil percentageon 2021 Basophils/100 WBC (Bld) 0.4 % 0-1 [facility] Work Phone: Eosinophils/100 WBC (Bld) 4.4 % 0-5 [facility] Work Phone: Neutrophils (Bld) [#/Vol] 3.5 10*3/uL 2.0-7.7 [facility] Work Phone: Neutrophils/100 WBC (Bld) 70.1 % 47-70 [facility] Work Phone: WBC (Bld) [#/Vol] 5.0 10*3/uL 4.4-11.0 [facility] Work Phone: Blood erythrocytes count (nu mber/volume)on 06-15-2022 RBC (Bld) [#/Vol] 3.42 10*6/uL 4.2-5.4 [facility] Work Phone: Blood hemoglobin measurement (mass/volume)on 06-15-2022 Hemoglobin (Bld) [Mass/Vol] 10.2 g/dL 12.0-15.0 [facility] Work Phone: Blood lymphocytes/100 leukoc yteson 06-15-2022 Lymphocytes/100 WBC (Bld) 14.1 % 19-41 [facility] Work Phone: [phone] Blood monocytes/100 leukocyt eson 06-15-2022 Monocytes/100 WBC (Bld) 10.6 % 0-10 [facility] Work Phone: Blood platelet mean volumeon 06-15-2022 Platelet mean volume (Bld) [Entitic vol] 9.2 fL 6.2-12.0 [facility] Work Phone: Determination of erythrocyte mean corpuscular volume (MCV)on 06-15-2022 MCV (RBC) [Entitic vol] 95.0 fL 81-99 [facility] Work Phone: Hematocrit Auto (Bld) [Volum e fraction]on 06-15-2022 Hematocrit (Bld) [Volume fraction] 32.5 % 37-47 [facility] Work Phone: Laboratory - Hematology and Cell countson 06-15-2022 Erythrocyte distribution width (RBC) [Entitic vol] 61.8 fL 35.1-43.9 [facility] Work Phone: [phone] Erythrocyte distribution width (RBC) [Ratio] 17.9 % 11.6-14.6 [facility] Work Phone: [phone] Immature granulocytes/100 WBC (Bld) 0.400 % 0.0-0.9 [facility] Work Phone: Comment on above: IG% - Immature Granu locytes (promyelocytes, myelocytes and metamyelocytes) > 1% indicates that a LEFT SHIFT is Present. MCH (RBC) [Entitic mass] 29.8 pg 27.0-32.0 [facility] Work Phone: Nucleated RBC/100 WBC (Bld) [Ratio] 0 % 0-5 [facility] Work Phone: MCHC Auto (RBC) [Mass/Vol]on 06-15-2022 MCHC (RBC) [Mass/Vol] 31.4 g/dL 32-36 [facility] Work Phone: Platelets bldon 06-15-2022 Platelets (Bld) [#/Vol] 373 10*3/uL 150-450 [facility] Work Phone: Blood hemoglobin measurement (mass/volume)on 06-12-2022 Hemoglobin (Bld) [Mass/Vol] 8.8 g/dL 12.0-15.0 [facility] Work Phone: CNPNon 06-12-2022 CNPN Telephone (HEMAWS) VIOLA BENNETT ([id number]) 1950 F Date Time Provider Department 06/12/22 LUIS FELIPE RADFORD During your visit today, we recorded the following information about you: Ce Chairez 06/12/2022 1:52 PM Signed [facility] called regarding pt d/c 06/12/22. Unable to complete call as phone went down. They were going to fax information regarding pt needing to be seen for low Iron. Margot Joaquin 06/15/2022 10:48 AM Signed Received referral and given to PRABHAKAR for review. DX: ANEMIA REF PROV: SEMENTI INS: MEDICARE A B Margot Joaquin 06/15/2022 11:24 AM Addendum Sent fax to [facility] requesting more information Beatriz Moran LPN 06/15/2022 1:29 PM Signed I spoke to patient and offered her tomorrow, 06/16/2022, at 3:00 pm. Patient will contact this nurse to confirm appointment if she is able to obtain transportation. Beatriz Moran LPN Javid Vinson Pss 06/15/2022 4:48 PM Signed Patient has been scheduled for the below date and time. Javid Belles Pss Allergies As of Date: 06/12/2022 Noted Allergy Reaction BENADRYL (DIPHENHYDRAMINE HCL) 03/20/2011 9 - Itching CEFDINIR 09/26/2012 4 - Hives SULFA (SULFONAMIDE ANTIBIOTICS) 03/20/2011 2 - Rash 9 - Itching Date Reviewed: 04/28/2014 Reviewed by: Magnolia Payton ([facility]) Wes - Fully Assessed Reason for [...] at bedtime as needed. FOR INSOMNIA - lisinopril-hydrochlorot hiazide (PRINZIDE) 20-12.5 mg ORAL per tablet Take [...] Status:Closed by JAVID BOB on 06/15/22 Normal [facility] Hematocrit Auto (Bld) [Volum e fraction]on 06-12-2022 Hematocrit (Bld) [Volume fraction] 27.5 % 37-47 [facility] Work Phone: Basophil percentageon 2021 Basophil percentage 3.4 mg/dL 2.5-4.9 [facility] Work Phone: Chloride [Moles/Vol] 103 mmol/L 98-107 [facility] Work Phone: Glucose [Mass/Vol] 88 mg/dL 74-106 [facility] Work Phone: Potassium [Moles/Vol] 4.1 mmol/L 3.5-5.1 [facility] Work Phone: Sodium [Moles/Vol] 135 mmol/L 136-145 [facility] Work Phone: WBC (Bld) [#/Vol] 6.7 10*3/uL 4.4-11.0 [facility] Work Phone: Blood erythrocytes count (nu mber/volume)on 06-09-2022 RBC (Bld) [#/Vol] 2.80 10*6/uL 4.2-5.4 [facility] Work Phone: Blood platelet mean volumeon 06-09-2022 Platelet mean volume (Bld) [Entitic vol] 9.2 fL 6.2-12.0 [facility] Work Phone: Determination of erythrocyte mean corpuscular volume (MCV)on 06-09-2022 MCV (RBC) [Entitic vol] 94.3 fL 81-99 [facility] Work Phone: [phone] Laboratory - Chemistry and C hemistry - challengeon 06-09-2022 CO2 [Moles/Vol] 26.0 mmol/L 21.0-32.0 [facility] Work Phone: [phone] Magnesium [Mass/Vol] 2.3 mg/dL 1.6-2.6 [facility] Work Phone: [phone] Urea nitrogen/Creatinine [Mass ratio] 17.5 mg/mg - [facility] Work Phone: [phone] Laboratory - Hematology and Cell countson 06-09-2022 Erythrocyte distribution width (RBC) [Entitic vol] 54.7 fL 35.1-43.9 [facility] Work Phone: [phone] Erythrocyte distribution width (RBC) [Ratio] 16.4 % 11.6-14.6 [facility] Work Phone: [phone] MCH (RBC) [Entitic mass] 30.4 pg 27.0-32.0 [facility] Work Phone: MCHC Auto (RBC) [Mass/Vol]on 06-09-2022 MCHC (RBC) [Mass/Vol] 32.2 g/dL 32-36 [facility] Work Phone: No Panel Informationon 06-09 Estimated Creatinine Clearance Calc 48.80 ml/min [facility] Work Phone: [phone] Estimated GFR (MDRD) Amer 90 mL/min >60 [facility] Work Phone: [phone] Comment on above: GFR Calc Estimated GFR (MDRD) Non-Af Amer 75 mL/min >60 [facility] Work Phone: [phone] Comment on above: Non- GFR Calc Platelets bldon 06-09-2022 Platelets (Bld) [#/Vol] 324 10*3/uL 150-450 [facility] Work Phone: Serum or plasma calcium donna urement (mass/volume)on 06-09-2022 Calcium [Mass/Vol] 8.4 mg/dL 8.5-10.1 [facility] Work Phone: Serum or plasma creatinine m easurement (mass/volume)on 06-09-2022 Creatinine [Mass/Vol] 0.80 mg/dL 0.55-1.02 [facility] Work Phone: Comment on above: The validity of the calculated GFR & GFRAA in patients over 70 years has not been determined. Clinical correlation is essential. Serum or plasma urea nitroge n measurement (mass/volume)on 06-09-2022 Urea nitrogen [Mass/Vol] 14 mg/dL 7-18 [facility] Work Phone: Thin prep Papanicolaou smear with manual screeningon 06-09-2022 Thin prep Papanicolaou smear with manual screening 6 5-15 [facility] Work Phone: Basophil percentageon 2021 Cholesterol [Mass/Vol] 149 mg/dL <200 [facility] Work Phone: Comment on above: <200 mg/dL Desirable 200-240 mg/dL Borderline >240 mg/dL High Risk Triglyceride [Mass/Vol] 90 mg/dL <199 [facility] Work Phone: Comment on above: The drugs N-Acetylcy steine and Metamizole may falsely depress this assay.Serum Triglycerides Reference Interval Normal <150 mg/dL Borderline high 150 - 199 mg/dL High 200 - 499 mg/dL Very High > or = 500 mg/dL Serum or plasma cholesterol in HDL measurement (mass/volume)on 06-02-2022 Cholesterol in HDL [Mass/Vol] 34 mg/dL >40 [facility] Work Phone: Comment on above: The drugs N-Acetylcy steine and Metamizole may falsely depress this assay. Reference Range HDL <40 mg/dL Low HDL Cholesterol HDL >or= 60 mg/dL High HDL Cholesterol Serum or plasma cholesterol in VLDL measurement (mass/volume)on 06-02-2022 Cholesterol in VLDL [Mass/Vol] 18 mg/dL 5-40 [facility] Work Phone: Serum or plasma low density lipoprotein (LDL) cholesterol measurement (mass/volume)on 06-02-2022 Cholesterol in LDL [Mass/Vol] 97 mg/dL 0-130 [facility] Work Phone: Absolute lymphocyte counton 06-01-2022 Lymphocytes Auto (Unsp spec) [#/Vol] 0.96 10*3/uL 0.83-4.51 [facility] Work Phone: Basophil percentageon 2021 Basophils/100 WBC (Bld) 0.2 % 0-1 [facility] Work Phone: Chloride [Moles/Vol] 104 mmol/L 98-107 [facility] Work Phone: Eosinophils/100 WBC (Bld) 2.2 % 0-5 [facility] Work Phone: Glucose [Mass/Vol] 108 mg/dL 74-106 [facility] Work Phone: Comment on above: Fasting Glucose resu lt from 100 to 125 mg/dL suggests IMPAIRED HOMEOSTASIS per A.D.A. criteria. Neutrophils (Bld) [#/Vol] 6.1 10*3/uL 2.0-7.7 [facility] Work Phone: Neutrophils/100 WBC (Bld) 74.9 % 47-70 [facility] Work Phone: Potassium [Moles/Vol] 4.0 mmol/L 3.5-5.1 [facility] Work Phone: Sodium [Moles/Vol] 137 mmol/L 136-145 [facility] Work Phone: WBC (Bld) [#/Vol] 8.2 10*3/uL 4.4-11.0 [facility] Work Phone: Blood erythrocytes count (nu mber/volume)on 06-01-2022 RBC (Bld) [#/Vol] 3.36 10*6/uL 4.2-5.4 [facility] Work Phone: Blood hemoglobin measurement (mass/volume)on 06-01-2022 Hemoglobin (Bld) [Mass/Vol] 9.9 g/dL 12.0-15.0 [facility] Work Phone: Blood lymphocytes/100 leukoc yteson 06-01-2022 Lymphocytes/100 WBC (Bld) 11.8 % 19-41 [facility] Work Phone: Blood monocytes/100 leukocyt eson 06-01-2022 Monocytes/100 WBC (Bld) 10.4 % 0-10 [facility] Work Phone: Blood platelet mean volumeon 06-01-2022 Platelet mean volume (Bld) [Entitic vol] 10.0 fL 6.2-12.0 [facility] Work Phone: Determination of erythrocyte mean corpuscular volume (MCV)on 06-01-2022 MCV (RBC) [Entitic vol] 90.8 fL 81-99 [facility] Work Phone: Hematocrit Auto (Bld) [Volum e fraction]on 06-01-2022 Hematocrit (Bld) [Volume fraction] 30.5 % 37-47 [facility] Work Phone: Iron measurement (mass/mass) on 06-01-2022 Iron (Unsp spec) [Mass/Mass] 13 ug/dL 50-170 [facility] Work Phone: Laboratory - Chemistry and C hemistry - challengeon 06-01-2022 CO2 [Moles/Vol] 27.0 mmol/L 21.0-32.0 [facility] Work Phone: Urea nitrogen/Creatinine [Mass ratio] 15.1 mg/mg 10-20 [facility] Work Phone: Laboratory - Hematology and Cell countson 06-01-2022 Erythrocyte distribution width (RBC) [Entitic vol] 49.3 fL 35.1-43.9 [facility] Work Phone: Erythrocyte distribution width (RBC) [Ratio] 15.0 % 11.6-14.6 [facility] Work Phone: [phone] Immature granulocytes/100 WBC (Bld) 0.500 % 0.0-0.9 [facility] Work Phone: Comment on above: IG% - Immature Granu locytes (promyelocytes, myelocytes and metamyelocytes) > 1% indicates that a LEFT SHIFT is Present. MCH (RBC) [Entitic mass] 29.5 pg 27.0-32.0 [facility] Work Phone: Nucleated RBC/100 WBC (Bld) [Ratio] 0 % 0-5 [facility] Work Phone: [phone] MCHC Auto (RBC) [Mass/Vol]on 06-01-2022 MCHC (RBC) [Mass/Vol] 32.5 g/dL 32-36 [facility] Work Phone: [phone] Panel Informationon 06-01 Estimated Creatinine Clearance Calc 39.04 ml/min [facility] Work Phone: [phone] Estimated GFR (MDRD) Amer 101 mL/min >60 [facility] Work Phone: [phone] Comment on above: GFR Calc Estimated GFR (MDRD) Non-Af Amer 83 mL/min >60 [facility] Work Phone: [phone] Comment on above: Non- GFR Calc Total Iron Binding Capacity 237 ug/dL 250-450 [facility] Work Phone: [phone] Platelets bldon 06-01-2022 Platelets (Bld) [#/Vol] 159 10*3/uL 150-450 [facility] Work Phone: [phone] Serum or plasma calcium donna urement (mass/volume)on 06-01-2022 Calcium [Mass/Vol] 8.3 mg/dL 8.5-10.1 [facility] Work Phone: [phone] Serum or plasma creatinine m easurement (mass/volume)on 06-01-2022 Creatinine [Mass/Vol] 0.73 mg/dL 0.55-1.02 [facility] Work Phone: Comment on above: The validity of the calculated GFR & GFRAA in patients over 70 years has not been determined. Clinical correlation is essential. Serum or plasma ferritin elton surement (mass/volume)on 06-01-2022 Ferritin [Mass/Vol] 72 ng/mL 8-252 [facility] Work Phone: Serum or plasma iron saturat ion measurement (mass fraction)on 06-01-2022 Iron saturation [Mass fraction] 5.5 % 15.0-55.0 [facility] Work Phone: Serum or plasma urea nitroge n measurement (mass/volume)on 06-01-2022 Urea nitrogen [Mass/Vol] 11 mg/dL 7-18 [facility] Work Phone: Thin prep Papanicolaou smear with manual screeningon 06-01-2022 Thin prep Papanicolaou smear with manual screening 6 5-15 [facility] Work Phone: INR in Blood by Coagulation assayon 05-30-2022 INR Coag (Bld) [Relative time] 1.1 {INR} [facility] Work Phone: Laboratory - Coagulationon 0 05-30-2022 aPTT Coag (Bld) [Time] 28.1 s 24.1-36.2 [facility] Work Phone: PT Coag (PPP) [Time] 13.5 s 11.7-14.9 [facility] Work Phone: Basophil percentageon 2021 Bilirubin [Mass/Vol] 0.70 mg/dL 0.20-1.00 [facility] Work Phone: Comment on above: For patients on eltr ombopag therapy, use of Dimension Elmo TBIL is not recommended. Protein [Mass/Vol] 6.2 g/dL 6.4-8.2 [facility] Work Phone: Laboratory - Chemistry and C hemistry - challengeon 05-29-2022 ALP [Catalytic activity/Vol] 93 U/L 45-117 [facility] Work Phone: ALT [Catalytic activity/Vol] 102 U/L 13-56 [facility] Work Phone: Globulin (S) [Mass/Vol] 3.3 g/dL 2.2-4.2 [facility] Work Phone: Serum or plasma albumin donna urement (mass/volume)on 05-29-2022 Albumin [Mass/Vol] 2.9 g/dL 3.2-5.0 [facility] Work Phone: Serum or plasma albumin/glob ulin mass ratioon 05-29-2022 Albumin/Globulin [Mass ratio] 0.9 {ratio} 0.9-2.4 [facility] Work Phone: [phone] Thin prep Papanicolaou smear with manual screeningon 05-29-2022 Thin prep Papanicolaou smear with manual screening 123 U/L 15-37 [facility] Work Phone: [phone] Absolute lymphocyte counton 05-28-2022 Lymphocytes Auto (Unsp spec) [#/Vol] 0.82 10*3/uL 0.83-4.51 [facility] Work Phone: Basophil percentageon 2021 Chloride [Moles/Vol] 110 mmol/L 98-107 [facility] Work Phone: [phone] Glucose [Mass/Vol] 100 mg/dL 74-106 [facility] Work Phone: Comment on above: Fasting Glucose resu lt from 100 to 125 mg/dL suggests IMPAIRED HOMEOSTASIS per A.D.A. criteria. Potassium [Moles/Vol] 5.7 mmol/L 3.5-5.1 [facility] Work Phone: Comment on above: Moderate Hemolysis, Result may be falsely increased. Sodium [Moles/Vol] 139 mmol/L 136-145 [facility] Work Phone: Basophils/100 WBC (Bld) 0.3 % 0-1 [facility] Work Phone: Eosinophils/100 WBC (Bld) 0.7 % 0-5 [facility] Work Phone: Neutrophils (Bld) [#/Vol] 7.1 10*3/uL 2.0-7.7 [facility] Work Phone: Neutrophils/100 WBC (Bld) 81.0 % 47-70 [facility] Work Phone: WBC (Bld) [#/Vol] 8.7 10*3/uL 4.4-11.0 [facility] Work Phone: Blood erythrocytes count (nu mber/volume)on 05-28-2022 RBC (Bld) [#/Vol] 3.85 10*6/uL 4.2-5.4 [facility] Work Phone: Blood hemoglobin measurement (mass/volume)on 05-28-2022 Hemoglobin (Bld) [Mass/Vol] 11.1 g/dL 12.0-15.0 [facility] Work Phone: Blood lymphocytes/100 leukoc yteson 05-28-2022 Lymphocytes/100 WBC (Bld) 9.4 % 19-41 [facility] Work Phone: Blood monocytes/100 leukocyt eson 05-28-2022 Monocytes/100 WBC (Bld) 7.9 % 0-10 [facility] Work Phone: [phone] Blood platelet mean volumeon 05-28-2022 Platelet mean volume (Bld) [Entitic vol] 10.2 fL 6.2-12.0 [facility] Work Phone: Determination of erythrocyte mean corpuscular volume (MCV)on 05-28-2022 MCV (RBC) [Entitic vol] 89.4 fL 81-99 [facility] Work Phone: Hematocrit Auto (Bld) [Volum e fraction]on 05-28-2022 Hematocrit (Bld) [Volume fraction] 34.4 % 37-47 [facility] Work Phone: Laboratory - Chemistry and C hemistry - challengeon 05-28-2022 CO2 [Moles/Vol] 24.0 mmol/L 21.0-32.0 [facility] Work Phone: [phone] Urea nitrogen/Creatinine [Mass ratio] 27.2 mg/mg 10-20 [facility] Work Phone: [phone] Natriuretic peptide B (Bld) [Mass/Vol] 114.0 pg/mL 0-100 [facility] Work Phone: [phone] Laboratory - Hematology and Cell countson 05-28-2022 Erythrocyte distribution width (RBC) [Entitic vol] 48.8 fL 35.1-43.9 [facility] Work Phone: [phone] Erythrocyte distribution width (RBC) [Ratio] 14.9 % 11.6-14.6 [facility] Work Phone: [phone] Immature granulocytes/100 WBC (Bld) 0.700 % 0.0-0.9 [facility] Work Phone: [phone] Comment on above: IG% - Immature Granu locytes (promyelocytes, myelocytes and metamyelocytes) > 1% indicates that a LEFT SHIFT is Present. MCH (RBC) [Entitic mass] 28.8 pg 27.0-32.0 [facility] Work Phone: [phone] Nucleated RBC/100 WBC (Bld) [Ratio] 0 % 0-5 [facility] Work Phone: [phone] MCHC Auto (RBC) [Mass/Vol]on 05-28-2022 MCHC (RBC) [Mass/Vol] 32.3 g/dL 32-36 [facility] Work Phone: [phone] Panel Informationon 05-28 Estimated Creatinine Clearance Calc 34.24 ml/min [facility] Work Phone: [phone] Estimated GFR (MDRD) Amer 60 mL/min >60 [facility] Work Phone: [phone] Comment on above: GFR Calc Estimated GFR (MDRD) Non-Af Amer 50 mL/min >60 [facility] Work Phone: [phone] Comment on above: Non- GFR Calc Platelets bldon 05-28-2022 Platelets (Bld) [#/Vol] 177 10*3/uL 150-450 [facility] Work Phone: [phone] Serum or plasma calcium donna urement (mass/volume)on 05-28-2022 Calcium [Mass/Vol] 8.7 mg/dL 8.5-10.1 [facility] Work Phone: [phone] Serum or plasma creatinine m easurement (mass/volume)on 05-28-2022 Creatinine [Mass/Vol] 1.14 mg/dL 0.55-1.02 [facility] Work Phone: [phone] Comment on above: The validity of the calculated GFR & GFRAA in patients over 70 years has not been determined. Clinical correlation is essential. Serum or plasma urea nitroge n measurement (mass/volume)on 05-28-2022 Urea nitrogen [Mass/Vol] 31 mg/dL 7-18 [facility] Work Phone: [phone] Thin prep Papanicolaou smear with manual screeningon 05-28-2022 Thin prep Papanicolaou smear with manual screening 5 5-15 [facility] Work Phone: [phone] Absolute lymphocyte counton 05-27-2022 Lymphocytes Auto (Unsp spec) [#/Vol] 0.83 10*3/uL 0.83-4.51 [facility] Work Phone: [phone] Basophil percentageon 2021 Basophils/100 WBC (Bld) 0.2 % 0-1 [facility] Work Phone: [phone] Bilirubin [Mass/Vol] 0.40 mg/dL 0.20-1.00 [facility] Work Phone: [phone] Comment on above: For patients on eltr ombopag therapy, use of Dimension [place]mo TBIL is not recommended. Chloride [Moles/Vol] 107 mmol/L 98-107 [facility] Work Phone: Eosinophils/100 WBC (Bld) 0.0 % 0-5 [facility] Work Phone: [phone] Glucose [Mass/Vol] 96 mg/dL 74-106 [facility] Work Phone: Neutrophils (Bld) [#/Vol] 4.8 10*3/uL 2.0-7.7 [facility] Work Phone: Neutrophils/100 WBC (Bld) 78.8 % 47-70 [facility] Work Phone: Potassium [Moles/Vol] 3.9 mmol/L 3.5-5.1 [facility] Work Phone: Protein [Mass/Vol] 6.9 g/dL 6.4-8.2 [facility] Work Phone: Sodium [Moles/Vol] 141 mmol/L 136-145 [facility] Work Phone: WBC (Bld) [#/Vol] 6.1 10*3/uL 4.4-11.0 [facility] Work Phone: Blood erythrocytes count (nu mber/volume)on 05-27-2022 RBC (Bld) [#/Vol] 3.97 10*6/uL 4.2-5.4 [facility] Work Phone: Blood hemoglobin measurement (mass/volume)on 05-27-2022 Hemoglobin (Bld) [Mass/Vol] 11.6 g/dL 12.0-15.0 [facility] Work Phone: Blood lymphocytes/100 leukoc yteson 05-27-2022 Lymphocytes/100 WBC (Bld) 13.7 % 19-41 [facility] Work Phone: Blood monocytes/100 leukocyt eson 05-27-2022 Monocytes/100 WBC (Bld) 7.1 % 0-10 [facility] Work Phone: Blood platelet mean volumeon 05-27-2022 Platelet mean volume (Bld) [Entitic vol] 10.4 fL 6.2-12.0 [facility] Work Phone: Determination of erythrocyte mean corpuscular volume (MCV)on 05-27-2022 MCV (RBC) [Entitic vol] 89.4 fL 81-99 [facility] Work Phone: [phone] Hematocrit Auto (Bld) [Volum e fraction]on 05-27-2022 Hematocrit (Bld) [Volume fraction] 35.5 % 37-47 [facility] Work Phone: [phone] Laboratory - Chemistry and C hemistry - challengeon 05-27-2022 ALP [Catalytic activity/Vol] 82 U/L 45-117 [facility] Work Phone: [phone] ALT [Catalytic activity/Vol] 15 U/L 13-56 [facility] Work Phone: [phone] CO2 [Moles/Vol] 26.0 mmol/L 21.0-32.0 [facility] Work Phone: [phone] Globulin (S) [Mass/Vol] 3.7 g/dL 2.2-4.2 [facility] Work Phone: [phone] Urea nitrogen/Creatinine [Mass ratio] 31.9 mg/mg 10-20 [facility] Work Phone: [phone] Laboratory - Hematology and Cell countson 05-27-2022 Erythrocyte distribution width (RBC) [Entitic vol] 48.1 fL 35.1-43.9 [facility] Work Phone: [phone] Erythrocyte distribution width (RBC) [Ratio] 14.6 % 11.6-14.6 [facility] Work Phone: [phone] Immature granulocytes/100 WBC (Bld) 0.200 % 0.0-0.9 [facility] Work Phone: [phone] Comment on above: IG% - Immature Granu locytes (promyelocytes, myelocytes and metamyelocytes) > 1% indicates that a LEFT SHIFT is Present. MCH (RBC) [Entitic mass] 29.2 pg 27.0-32.0 [facility] Work Phone: [phone] Nucleated RBC/100 WBC (Bld) [Ratio] 0 % 0-5 [facility] Work Phone: [phone] MCHC Auto (RBC) [Mass/Vol]on 05-27-2022 MCHC (RBC) [Mass/Vol] 32.7 g/dL 32-36 [facility] Work Phone: No Panel Informationon 05-27 Estimated GFR (MDRD) Amer 81 mL/min >60 [facility] Work Phone: Comment on above: GFR Calc Estimated GFR (MDRD) Non-Af Amer 67 mL/min >60 [facility] Work Phone: Comment on above: Non- GFR Calc Thyroid Stimulating Hormone (TSH) 0.42 uIU/mL 0.358-3.74 [facility] Work Phone: Vitamin D 25-Hydroxy 47.2 ng/mL [facility] Work Phone: Comment on above: Vitamin D 25(OH) Sta tus Range Deficiency <20 ng/mL (50nmol/L) Insufficiency 20 - 30 ng/mL (50 - 75 nmol/L) Sufficiency 30 - 100 ng/mL (75 - 250 nmol/L) Toxicity >100 ng/mL (>250 nmol/L) Platelets bldon 05-27-2022 Platelets (Bld) [#/Vol] 202 10*3/uL 150-450 [facility] Work Phone: Serum or plasma albumin donna urement (mass/volume)on 05-27-2022 Albumin [Mass/Vol] 3.2 g/dL 3.2-5.0 [facility] Work Phone: [phone] Serum or plasma albumin/glob ulin mass ratioon 05-27-2022 Albumin/Globulin [Mass ratio] 0.9 {ratio} 0.9-2.4 [facility] Work Phone: [phone] Serum or plasma calcium donna urement (mass/volume)on 05-27-2022 Calcium [Mass/Vol] 9.3 mg/dL 8.5-10.1 [facility] Work Phone: [phone] Serum or plasma creatinine m easurement (mass/volume)on 05-27-2022 Creatinine [Mass/Vol] 0.88 mg/dL 0.55-1.02 [facility] Work Phone: Comment on above: The validity of the calculated GFR & GFRAA in patients over 70 years has not been determined. Clinical correlation is essential. Serum or plasma urea nitroge n measurement (mass/volume)on 05-27-2022 Urea nitrogen [Mass/Vol] 28 mg/dL 7-18 [facility] Work Phone: Thin prep Papanicolaou smear with manual screeningon 05-27-2022 Thin prep Papanicolaou smear with manual screening 11 U/L 15-37 [facility] Work Phone: Thin prep Papanicolaou smear with manual screening 8 5-15 [facility] Work Phone: Absolute lymphocyte counton 11-19-2021 Lymphocytes Auto (Unsp spec) [#/Vol] 1.17 10*3/uL 0.83-4.51 [facility] Work Phone: Basophil percentageon 2021 Basophils/100 WBC (Bld) 1.1 % 0-1 [facility] Work Phone: Bilirubin [Mass/Vol] 0.40 mg/dL 0.20-1.00 [facility] Work Phone: Comment on above: For patients on eltr ombopag therapy, use of Dimension [place]mo TBIL is not recommended. Chloride [Moles/Vol] 104 mmol/L 98-107 [facility] Work Phone: Eosinophils/100 WBC (Bld) 3.5 % 0-5 [facility] Work Phone: Glucose [Mass/Vol] 84 mg/dL 74-106 [facility] Work Phone: Neutrophils (Bld) [#/Vol] 1.9 10*3/uL 2.0-7.7 [facility] Work Phone: Neutrophils/100 WBC (Bld) 52.6 % 47-70 [facility] Work Phone: Potassium [Moles/Vol] 3.7 mmol/L 3.5-5.1 [facility] Work Phone: [phone] Protein [Mass/Vol] 7.3 g/dL 6.4-8.2 [facility] Work Phone: [phone] Sodium [Moles/Vol] 138 mmol/L 136-145 [facility] Work Phone: [phone] WBC (Bld) [#/Vol] 3.7 10*3/uL 4.4-11.0 [facility] Work Phone: [phone] Blood erythrocytes count (nu mber/volume)on 11-19-2021 RBC (Bld) [#/Vol] 4.14 10*6/uL 4.2-5.4 [facility] Work Phone: [phone] Blood hemoglobin measurement (mass/volume)on 11-19-2021 Hemoglobin (Bld) [Mass/Vol] 11.5 g/dL 12.0-15.0 [facility] Work Phone: [phone] Blood lymphocytes/100 leukoc yteson 11-19-2021 Lymphocytes/100 WBC (Bld) 31.7 % 19-41 [facility] Work Phone: [phone] Blood monocytes/100 leukocyt eson 11-19-2021 Monocytes/100 WBC (Bld) 10.8 % 0-10 [facility] Work Phone: Blood platelet mean volumeon 11-19-2021 Platelet mean volume (Bld) [Entitic vol] 10.7 fL 6.2-12.0 [facility] Work Phone: [phone] Determination of erythrocyte mean corpuscular volume (MCV)on 11-19-2021 MCV (RBC) [Entitic vol] 85.7 fL 81-99 [facility] Work Phone: [phone] Hematocrit Auto (Bld) [Volum e fraction]on 11-19-2021 Hematocrit (Bld) [Volume fraction] 35.5 % 37-47 [facility] Work Phone: Laboratory - Chemistry and C hemistry - challengeon 11-19-2021 ALP [Catalytic activity/Vol] 95 U/L 45-117 [facility] Work Phone: [phone] ALT [Catalytic activity/Vol] 20 U/L 13-56 [facility] Work Phone: [phone] CO2 [Moles/Vol] 27.0 mmol/L 21.0-32.0 [facility] Work Phone: [phone] Globulin (S) [Mass/Vol] 3.9 g/dL 2.2-4.2 [facility] Work Phone: [phone] Urea nitrogen/Creatinine [Mass ratio] 23.2 mg/mg 10-20 [facility] Work Phone: [phone] Laboratory - Hematology and Cell countson 11-19-2021 Erythrocyte distribution width (RBC) [Entitic vol] 46.5 fL 35.1-43.9 [facility] Work Phone: [phone] Erythrocyte distribution width (RBC) [Ratio] 14.9 % 11.6-14.6 [facility] Work Phone: [phone] Immature granulocytes/100 WBC (Bld) 0.300 % 0.0-0.9 [facility] Work Phone: [phone] Comment on above: IG% - Immature Granu locytes (promyelocytes, myelocytes and metamyelocytes) > 1% indicates that a LEFT SHIFT is Present. MCH (RBC) [Entitic mass] 27.8 pg 27.0-32.0 [facility] Work Phone: [phone] Nucleated RBC/100 WBC (Bld) [Ratio] 0.5 % 0-5 [facility] Work Phone: [phone] MCHC Auto (RBC) [Mass/Vol]on 11-19-2021 MCHC (RBC) [Mass/Vol] 32.4 g/dL 32-36 [facility] Work Phone: [phone] Panel Informationon 11-19 Estimated GFR (MDRD) Amer 70 mL/min >60 [facility] Work Phone: [phone] Comment on above: GFR Calc Estimated GFR (MDRD) Non-Af Amer 58 mL/min >60 [facility] Work Phone: Comment on above: Non- GFR Calc Thyroid Stimulating Hormone (TSH) 1.07 uIU/mL 0.358-3.74 [facility] Work Phone: Vitamin D 25-Hydroxy 55.0 ng/mL [facility] Work Phone: Comment on above: Vitamin D 25(OH) Sta tus Range Deficiency <20 ng/mL (50nmol/L) Insufficiency 20 - 30 ng/mL (50 - 75 nmol/L) Sufficiency 30 - 100 ng/mL (75 - 250 nmol/L) Toxicity >100 ng/mL (>250 nmol/L) Platelets bldon 11-19-2021 Platelets (Bld) [#/Vol] 206 10*3/uL 150-450 [facility] Work Phone: Serum or plasma albumin donna urement (mass/volume)on 11-19-2021 Albumin [Mass/Vol] 3.4 g/dL 3.2-5.0 [facility] Work Phone: Serum or plasma albumin/glob ulin mass ratioon 11-19-2021 Albumin/Globulin [Mass ratio] 0.9 {ratio} 0.9-2.4 [facility] Work Phone: Serum or plasma calcium donna urement (mass/volume)on 11-19-2021 Calcium [Mass/Vol] 9.5 mg/dL 8.5-10.1 [facility] Work Phone: Serum or plasma creatinine m easurement (mass/volume)on 11-19-2021 Creatinine [Mass/Vol] 0.99 mg/dL 0.55-1.02 [facility] Work Phone: Comment on above: The validity of the calculated GFR & GFRAA in patients over 70 years has not been determined. Clinical correlation is essential. Serum or plasma urea nitroge n measurement (mass/volume)on 11-19-2021 Urea nitrogen [Mass/Vol] 23 mg/dL 7-18 [facility] Work Phone: Thin prep Papanicolaou smear with manual screeningon 11-19-2021 Thin prep Papanicolaou smear with manual screening 21 U/L 15-37 [facility] Work Phone: Thin prep Papanicolaou smear with manual screening 7 5-15 [facility] Work Phone: Office Visiton 05-07-2017 Dietary management education, guidance, and counseling (procedure) yes Invalid Interpretation Code [facility] [employer] Work Phone: [phone] Documentation of current medications (procedure) Done Invalid Interpretation Code [facility] [employer] Work Phone: [phone] Fall risk assessment Yes Invalid Interpretation Code [facility] Work Phone: [phone] Protein mass conc Done Invalid Interpretation Code [facility] Work Phone: [phone] Clinical Lists Updateon Left ventricular Ejection fraction 65 % Invalid Interpretation Code [facility] Work Phone: [phone] Clinical Lists Update: Prelo probation worker 03-27-2016 Alanine aminotransferase (ALT) 22 U/L Invalid Interpretation Code [facility] Work Phone: [phone] Albumin 3.5 g/dL Invalid Interpretation Code [facility] Work Phone: [phone] Albumin/Globulin Ratio 1.0 {ratio} Invalid Interpretation Code [facility] Work Phone: [phone] Alkaline phosphatase (ALP) 94 U/L Invalid Interpretation Code [facility] Work Phone: [phone] ALP enzyme act/vol (Bld) 94 U/L Invalid Interpretation Code [facility] Work Phone: [phone] Anion gap 7 mmol/L Invalid Interpretation Code [facility] [employer] Work Phone: [phone] Anion gap 4 molar conc 7 Invalid Interpretation Code [facility] [employer] Work Phone: [phone] Aspartate aminotransferase (AST) 15 U/L Invalid Interpretation Code [facility] [employer] Work Phone: [phone] Bilirubin (total) 0.50 mg/dL Invalid Interpretation Code [facility] Work Phone: [phone] BUN/Creatinine Ratio 14.9 mg/mg Invalid Interpretation Code [facility] [employer] Work Phone: [phone] Calcium 8.3 mg/dL [facility] [employer] Work Phone: [phone] Chloride 107 mmol/L Invalid Interpretation Code [employer] Work Phone: [phone] CO2 27.0 mmol/L Invalid Interpretation Code [employer] Work Phone: [phone] CO2 ppres (BldV) 27.0 mmol/L Invalid Interpretation Code [employer] Work Phone: [phone] Creatinine 1.14 mg/dL Invalid Interpretation Code [employer] Work Phone: [phone] eGFR (non-black) 61 mL/min/{1.73_m2} Invalid Interpretation Code [employer] Work Phone: [phone] eGFR (non-black) 50 mL/min/{1.73_m2} [facility] [employer] Work Phone: [phone] Erythrocytes (RBC) 4.60 10*6/uL Invalid Interpretation Code [employer] Work Phone: [phone] Globulin 3.6 g/dL [facility] [employer] Work Phone: [phone] Glomerular Filtration Rate 61 mL/min/1.73m2 Invalid Interpretation Code [employer] Work Phone: [phone] Glucose 86 mg/dL Invalid Interpretation Code [employer] Work Phone: [phone] Glucose mass conc 86 mg/dL Invalid Interpretation Code [employer] Work Phone: [phone] Hematocrit (HCT) 41.6 % Invalid Interpretation Code [employer] Work Phone: [phone] Hemoglobin (HGB) 13.7 g/dL Invalid Interpretation Code [employer] Work Phone: [phone] MCH 29.8 pg Invalid Interpretation Code [employer] Work Phone: [phone] MCHC 32.9 g/dL Invalid Interpretation Code [employer] Work Phone: [phone] MCV 90.4 fL Invalid Interpretation Code [employer] Work Phone: [phone] Platelets 230 10*3/mm3 Invalid Interpretation Code [employer] Work Phone: [phone] PMV by Golden 10.3 fL Invalid Interpretation Code [employer] Work Phone: [phone] Potassium 4.1 mmol/L Invalid Interpretation Code [employer] Work Phone: [phone] Protein 7.1 g/dL Invalid Interpretation Code [employer] Work Phone: [phone] RDW-CA 14.2 % Invalid Interpretation Code [employer] Work Phone: [phone] Sodium 141 mmol/L Invalid Interpretation Code [employer] Work Phone: [phone] Urea nitrogen 17 mg/dL Invalid Interpretation Code [employer] Work Phone: [phone] WBC (Leukocytes) 6.1 10*3/uL Invalid Interpretation Code [employer] Work Phone: [phone] Clinical Lists Update: Prelo probation worker 02-26-2016 Thyroid stimulating hormone (TSH) 0.99 u[iU]/mL Invalid Interpretation Code [facility] Work Phone: [phone] Office Visit: [facility] 11-05-19 16 General cardiovascular disease 10Y risk [#] Marialuisa.D'Agostkeyona 8 % Invalid Interpretation Code [employer] Work Phone: [phone] Tobacco smoking status NHIS Never smoker Invalid Interpretation Code [facility] Work Phone: [phone] Tobacco use CPHS Never smoker Invalid Interpretation Code [facility] Work Phone: [phone] Replaced Document: [facility] [place] Observationson 11-05-2015 EKG QRS axis 6 deg Invalid Interpretation Code [facility] Work Phone: [phone] electrocardiogram interpretation Sinus Rhythm WITHIN NORMAL LIMITS Invalid Interpretation Code [facility] Work Phone: [phone] GE use only - for [employer] import when terms are not otherwise specified 418 ms Invalid Interpretation Code [facility] Work Phone: [phone] Interpretation Sinus Rhythm WITHIN NORMAL LIMITS Invalid Interpretation Code [facility] Work Phone: [phone] P [place] 38 deg Invalid Interpretation Code [facility] Work Phone: [phone] P wave axis, electrocardiogram 38 deg Invalid Interpretation Code [facility] Work Phone: [phone] WI Interval 184 ms Invalid Interpretation Code [facility] Work Phone: [phone] WI interval, electrocardiogram 184 ms Invalid Interpretation Code [facility] Work Phone: [phone] Pulse (Heart Rate) 60 /min Invalid Interpretation Code [facility] Work Phone: [phone] QRS axis, electrocardiogram 6 deg Invalid Interpretation Code [facility] Work Phone: [phone] QRS Duration 106 ms Invalid Interpretation Code [facility] Work Phone: [phone] QRS duration, electrocardiogram 106 ms Invalid Interpretation Code [facility] Work Phone: [phone] QT Interval new path ms Invalid Interpretation Code [facility] Work Phone: [phone] QT interval, electrocardiogram new path ms Invalid Interpretation Code [facility] Work Phone: [phone] QTc Castro 418 ms Invalid Interpretation Code [facility] Work Phone: [phone] T Red[place] 22 deg Invalid Interpretation Code [facility] Work Phone: [phone] T wave axis, electrocardiogram 22 deg Invalid Interpretation Code [facility] Work Phone: [phone] Clinical Lists Update: Pre probation worker 04-03-2015 Cholesterol 133 mg/dL Invalid Interpretation Code [facility] Work Phone: [phone] HDL Cholesterol 45 mg/dL Invalid Interpretation Code [facility] Work Phone: [phone] LDL Cholesterol 63 mg/dL Invalid Interpretation Code [facility] Work Phone: [phone] Triglyceride 130 mg/dL Invalid Interpretation Code [facility] Work Phone: [phone] Office Visit: [facility] 09-06-20 14 cardiac risk group B Invalid Interpretation Code [facility] Work Phone: [phone] Tobacco smoking status NHIS Never Invalid Interpretation Code [facility] Work Phone: [phone] Replaced Document: [employer] E CG Observationson 10-19-2012 Pulse (Heart Rate) 416 ms Invalid Interpretation Code [facility] Work Phone: [phone] Clinical Lists Update: Pre probation worker 10-10-2012 Magnesium 1.9 mg/dL Invalid Interpretation Code [facility] Work Phone: [phone] Clinical Lists Update: Pre probation worker 09-07-2012 MCHC 33.0 % Invalid Interpretation Code [facility] Work Phone: [phone] Lower GI hemoglobin IA Ql (S tl) Stool Occult Blood (MONICA) Positive [facility] Work Phone: Vital Signs Date Time Vital Sign Value Performing Clinician Facility 02-07-2025 09:45-0400 Body temperature 97.7 [degF] Dr. Desmond Riojas MD Work Phone: [facility] 02-07-2025 09:45-0400 Diastolic blood pressure 61 mm[Hg] Dr. Desmond Riojas MD Work Phone: [facility] 02-07-2025 09:45-0400 Heart rate 67 /min Dr. Desmond Riojas MD Work Phone: [facility] 02-07-2025 09:45-0400 Respiratory rate 16 /min Dr. Desmond Riojas MD Work Phone: [facility] 02-07-2025 09:45-0400 SaO2% (BldA) [Mass fraction] 97 % Dr. Desmond Riojas MD Work Phone: [facility] 02-07-2025 09:45-0400 Systolic blood pressure 101 mm[Hg] Dr. Desmond Riojas MD Work Phone: [facility] 02-07-2025 07:59-0400 Body height 157.[address] Desmond Riojas MD Work Phone: [facility] 02-07-2025 07:59-0400 Body mass index (BMI) [Ratio] 26.2 kg/m2 Dr. Desmond Riojas MD Work Phone: [facility] 02-07-2025 07:59-0400 Body weight [address] Desmond Riojas MD Work Phone: [facility] 01-18-2025 08:09-0400 Body mass index (BMI) [Ratio] 26.3 kg/m2 Dr. Desmond Riojas MD Work Phone: [facility] 01-18-2025 08:09-0400 Body weight 65.[address] Desmond Riojas MD Work Phone: [facility] 01-18-2025 08:09-0400 Diastolic blood pressure 81 mm[Hg] Dr. Desmond Riojas MD Work Phone: [facility] 01-18-2025 08:09-0400 Heart rate 71 /min Dr. Desmond Riojas MD Work Phone: [facility] 01-18-2025 08:09-0400 Respiratory rate 16 /min Dr. Desmond Riojas MD Work Phone: [facility] 01-18-2025 08:09-0400 Systolic blood pressure 127 mm[Hg] Dr. Desmond Riojas MD Work Phone: [facility] 07-31-2024 11:44-0500 Body height 157.5 cm Preston Molina MD Work Phone: [facility] 07-31-2024 11:44-0500 Body mass index (BMI) [Ratio] 26.16 kg/m2 Preston Molina MD Work Phone: [facility] 07-31-2024 11:44-0500 Body weight 64.86 kg Preston Molina MD Work Phone: [facility] 07-31-2024 11:44-0500 Diastolic blood pressure 82 mm[Hg] Preston Molina MD Work Phone: [facility] 07-31-2024 11:44-0500 Heart rate 77 /min Preston Molina MD Work Phone: [facility] 07-31-2024 11:44-0500 SaO2% (BldA) [Mass fraction] 99 % Preston Molina MD Work Phone: [facility] 07-31-2024 11:44-0500 Systolic blood pressure 124 mm[Hg] Preston Molina MD Work Phone: [facility] 07-03-2024 11:31-0400 Body mass index (BMI) [Ratio] 26.52 kg/m2 Preston Molina MD Work Phone: [facility] 07-03-2024 11:31-0400 Body weight 65.77 kg Preston Molina MD Work Phone: [facility] 07-03-2024 11:31-0400 Diastolic blood pressure 82 mm[Hg] Preston Molina MD Work Phone: [facility] 07-03-2024 11:31-0400 Heart rate 68 /min Preston Molina MD Work Phone: [facility] 07-03-2024 11:31-0400 SaO2% (BldA) [Mass fraction] 99 % Preston Molina MD Work Phone: [facility] 07-03-2024 11:31-0400 Systolic blood pressure 126 mm[Hg] Preston Molina MD Work Phone: [facility] 12-20-2023 16:15-0400 Body temperature 98.3 [degF] Dr. Desmond Riojas Work Phone: [facility] 12-20-2023 16:15-0400 Diastolic blood pressure 68 mm[Hg] Dr. Desmond Riojas Work Phone: [facility] 12-20-2023 16:15-0400 Heart rate 112 /min Dr. Desmond Riojas Work Phone: [facility] 12-20-2023 16:15-0400 Respiratory rate 18 /min Dr. Desmond Riojas Work Phone: [facility] 12-20-2023 16:15-0400 SaO2% (BldA) [Mass fraction] 98 % Dr. Desmond Riojas Work Phone: [facility] 12-20-2023 16:15-0400 Systolic blood pressure 98 mm[Hg] Dr. Desmond Riojas Work Phone: [facility] 12-20-2023 07:10-0400 Inhaled oxygen flow rate 2 L/min Dr. Desmond Riojas Work Phone: [facility] 12-20-2023 06:00-0400 Body mass index (BMI) [Ratio] 31.3 kg/m2 Dr. Desmond Riojas Work Phone: [facility] 12-20-2023 06:00-0400 Body weight 77.[address] Desmond Riojas Work Phone: [facility] 12-18-2023 00:43-0400 Body height 157.[address] Desmond Riojas Work Phone: [facility] 12-18-2023 00:01-0400 Diastolic blood pressure 75 mm[Hg] [facility] 12-18-2023 00:01-0400 Heart rate 80 /min [facility] 12-18-2023 00:01-0400 Respiratory rate 11 /min [facility] 12-18-2023 00:01-0400 SaO2% (BldA) [Mass fraction] 100 % [facility] 12-18-2023 00:01-0400 Systolic blood pressure 128 mm[Hg] [facility] 12-17-2023 23:22-0400 Body temperature 97.2 [degF] [facility] 12-17-2023 19:37-0400 Body height 157.48 cm [facility] 12-17-2023 19:37-0400 Body mass index (BMI) [Ratio] 31.5 kg/m2 [facility] 12-17-2023 19:37-0400 Body weight 78.2 kg [facility] 12-03-2023 15:58-0400 Body temperature 98.3 [degF] [facility] 12-03-2023 15:58-0400 Diastolic blood pressure 67 mm[Hg] [facility] 12-03-2023 15:58-0400 Heart rate 87 /min [facility] 12-03-2023 15:58-0400 Respiratory rate 16 /min [facility] 12-03-2023 15:58-0400 SaO2% (BldA) [Mass fraction] 97 % [facility] 12-03-2023 15:58-0400 Systolic blood pressure 132 mm[Hg] [facility] 12-03-2023 13:48-0400 Body height 157.48 cm [facility] 12-03-2023 13:48-0400 Body mass index (BMI) [Ratio] 32.7 kg/m2 [facility] 12-03-2023 13:48-0400 Body weight 81.2 kg [facility] 09-18-2022 09:24-0500 Body height 157.[address] Desmond Riojas Work Phone: 9(126)438-219654 [place] [address] 09-18-2022 09:24-0500 Body mass index (BMI) [Ratio] 34.5 kg/m2 Dr. Desmond Riojas Work Phone: 9(465)681-666554 [place] [address] 09-18-2022 09:24-0500 Body weight 85.[address] Desmond Riojas Work Phone: 6(493)468-254234 [address] 09-14-2022 15:27-0500 Body mass index (BMI) [Ratio] 34.9 kg/m2 Dr. Desmond Riojas Work Phone: 0(775)356-827954 [place] [address] 09-14-2022 15:26-0500 Body temperature 97.7 [degF] Dr. Desmond Riojas Work Phone: 9(002)617-706554 [place] [address] 09-14-2022 15:26-0500 Diastolic blood pressure 81 mm[Hg] Dr. Desmond Riojas Work Phone: 0(458)147-586254 [place] [address] 09-14-2022 15:26-0500 Heart rate 70 /min Dr. Desmond Riojas Work Phone: 7(746)094-908154 [place] [address] 09-14-2022 15:26-0500 Respiratory rate 14 /min Dr. Desmond Riojas Work Phone: [facility] 09-14-2022 15:26-0500 SaO2% (BldA) [Mass fraction] 98 % Dr. Desmond Riojas Work Phone: 5(801)[phone] [place] [address] 09-14-2022 15:26-0500 Systolic blood pressure 130 mm[Hg] Dr. Desmond Riojas Work Phone: 6(696)670-724754 [place] [address] 09-14-2022 06:00-0500 Body weight [address] Desmond Riojas Work Phone: 0(194)435-447354 [place] [address] 09-14-2022 05:44-0500 Inhaled oxygen flow rate 2 L/min Dr. Desmond Riojas Work Phone: [facility] 09-13-2022 12:03-0500 Body height 157.[address] Desmond Riojas Work Phone: [facility] Work Phone: 09-12-2022 22:27-0500 Body temperature 97.4 [degF] Dr. Desmond Riojas Work Phone: [facility] Work Phone: 09-12-2022 22:27-0500 Diastolic blood pressure 65 mm[Hg] Dr. Desmond Riojas Work Phone: [facility] Work Phone: 09-12-2022 22:27-0500 Heart rate 75 /min Dr. Desmond Riojas Work Phone: [facility] Work Phone: 09-12-2022 22:27-0500 Respiratory rate 20 /min Dr. Desmond Riojas Work Phone: [facility] Work Phone: 09-12-2022 22:27-0500 SaO2% (BldA) [Mass fraction] 95 % Dr. Desmond Riojas Work Phone: [facility] Work Phone: 09-12-2022 22:27-0500 Systolic blood pressure 122 mm[Hg] Dr. Desmond Riojas Work Phone: [facility] Work Phone: 09-12-2022 17:53-0500 Body height 157.[address] Desmond Riojas Work Phone: [facility] Work Phone: 09-12-2022 17:53-0500 Body mass index (BMI) [Ratio] 37.2 kg/m2 Dr. Desmond Riojas Work Phone: [facility] Work Phone: 09-12-2022 17:53-0500 Body weight 92.[address] Desmond Riojas Work Phone: [facility] Work Phone: 06-16-2022 15:10-0400 Body temperature 98.2 [degF] Luis Felipe Radford DO Work Phone: [facility] 06-16-2022 15:10-0400 Diastolic blood pressure 52 mm[Hg] Luis Felipe Radford DO Work Phone: [facility] 06-16-2022 15:10-0400 Heart rate 76 /min Luis Felipe Radford DO Work Phone: [facility] 06-16-2022 15:10-0400 SaO2% (BldA) [Mass fraction] 98 % Luis Felipe Radford DO Work Phone: [facility] 06-16-2022 15:10-0400 Systolic blood pressure 100 mm[Hg] Luis Felipe Radford DO Work Phone: [facility] 06-13-2022 09:17-0400 Body temperature 98.1 [degF] Dr. Desmond Riojas Work Phone: [facility] Work Phone: 06-13-2022 09:17-0400 Diastolic blood pressure 68 mm[Hg] Dr. Desmond Riojas Work Phone: [facility] Work Phone: 06-13-2022 09:17-0400 Heart rate 84 /min Dr. Desmond Riojas Work Phone: [facility] Work Phone: 06-13-2022 09:17-0400 Respiratory rate 18 /min Dr. Desmond Riojas Work Phone: [facility] Work Phone: 06-13-2022 09:17-0400 SaO2% (BldA) [Mass fraction] 100 % Dr. Desmond Riojas Work Phone: [facility] Work Phone: 06-13-2022 09:17-0400 Systolic blood pressure 139 mm[Hg] Dr. Desmond Riojas Work Phone: [facility] Work Phone: 06-10-2022 05:20-0400 Body weight 96.[address] Desmond Riojas Work Phone: [facility] Work Phone: 06-09-2022 15:07-0400 Body height 157.[address] Desmond Riojas Work Phone: [facility] Work Phone: 06-05-2022 20:05-0400 Inhaled oxygen flow rate 2 L/min Dr. Desmond Riojas Work Phone: [facility] Work Phone: 06-01-2022 16:08-0400 Body mass index (BMI) [Ratio] 39.6 kg/m2 Dr. Desmond Riojas Work Phone: [facility] Work Phone: 06-01-2022 15:26-0400 Body temperature 98.8 [degF] Dr. Desmond Riojas Work Phone: [facility] Work Phone: 06-01-2022 15:26-0400 Diastolic blood pressure 50 mm[Hg] Dr. Desmodn Riojas Work Phone: [facility] Work Phone: 06-01-2022 15:26-0400 Heart rate 79 /min Dr. Desmond Riojas Work Phone: [facility] Work Phone: 06-01-2022 15:26-0400 Respiratory rate 18 /min Dr. Desmond Riojas Work Phone: [facility] Work Phone: 06-01-2022 15:26-0400 SaO2% (BldA) [Mass fraction] 98 % Dr. Desmond Riojas Work Phone: [facility] Work Phone: 06-01-2022 15:26-0400 Systolic blood pressure 114 mm[Hg] Dr. Desmond Riojas Work Phone: [facility] Work Phone: 06-01-2022 06:13-0400 Body weight 97.[address] Desmond Riojas Work Phone: [facility] Work Phone: 06-01-2022 02:21-0400 Inhaled oxygen flow rate 2 L/min Dr. Desmond Riojas Work Phone: [facility] Work Phone: 05-30-2022 05:45-0400 Body height 157.[address] Desmond Riojas Work Phone: [facility] Work Phone: 05-30-2022 05:45-0400 Body mass index (BMI) [Ratio] 37.3 kg/m2 Dr. Desmond Riojas Work Phone: [facility] Work Phone: 05-28-2022 18:00-0400 Body temperature 98.5 [degF] [facility] Work Phone: 05-28-2022 18:00-0400 Diastolic blood pressure 60 mm[Hg] [facility] Work Phone: 05-28-2022 18:00-0400 Heart rate 80 /min [facility] Work Phone: 05-28-2022 18:00-0400 Respiratory rate 17 /min [facility] Work Phone: 05-28-2022 18:00-0400 SaO2% (BldA) [Mass fraction] 97 % [facility] Work Phone: 05-28-2022 18:00-0400 Systolic blood pressure 127 mm[Hg] [facility] Work Phone: 05-28-2022 14:58-0400 Body height 157.48 cm [facility] Work Phone: 05-28-2022 14:58-0400 Body mass index (BMI) [Ratio] 38.5 kg/m2 [facility] Work Phone: 05-28-2022 14:58-0400 Body weight 95.4 kg [facility] Work Phone: 11-24-2021 09:53-0500 Body height 157.[address] Desmond Riojas Work Phone: [facility] Work Phone: 11-24-2021 09:53-0500 Body mass index (BMI) [Ratio] 38 kg/m2 Dr. Desmond Riojas Work Phone: [facility] Work Phone: 11-24-2021 09:53-0500 Body weight 94.[address] Desmond Riojas Work Phone: [facility] Work Phone: 11-24-2021 09:53-0500 Diastolic blood pressure 71 mm[Hg] Dr. Desmond Riojas Work Phone: [facility] Work Phone: 11-24-2021 09:53-0500 Heart rate 73 /min Dr. Desmond Riojas Work Phone: [facility] Work Phone: 11-24-2021 09:53-0500 Respiratory rate 18 /min Dr. Desmond Riojas Work Phone: [facility] Work Phone: 11-24-2021 09:53-0500 SaO2% (BldA) [Mass fraction] 98 % Dr. Desmond Riojas Work Phone: [facility] Work Phone: 11-24-2021 09:53-0500 Systolic blood pressure 113 mm[Hg] Dr. Desmond Riojas Work Phone: [facility] Work Phone: 06-08-2017 10:06-0400 BP Diastolic 80 mm[Hg] Harumi DeFinis [facility] Work Phone: 06-08-2017 10:06-0400 BP Systolic 154 mm[Hg] Harumi DeFinis [facility] Work Phone: 06-08-2017 10:06-0400 Pulse (Heart Rate) 76 /min Harumi DeFinis [facility] Work Phone: 06-08-2017 10:06-0400 Respiratory Rate 18 /min Harumi DeFinis [facility] Work Phone: 05-07-2017 08:20-0400 BMI (Body Mass Index) 40.97 kg/m2 [facility] Work Phone: 05-07-2017 08:20-0400 BP Diastolic 62 mm[Hg] Juanita Ambriz [facility] Work Phone: 05-07-2017 08:20-0400 BP Systolic 118 mm[Hg] Juanita Ambriz [facility] Work Phone: 05-07-2017 08:20-0400 Height 157.48 cm Juanita Wilkinsonby [facility] Work Phone: 05-07-2017 08:20-0400 Pulse (Heart Rate) 72 /min Juanita Ambriz [facility] Work Phone: 05-07-2017 08:20-0400 Respiratory Rate 18 /min [facility] Work Phone: 05-07-2017 08:20-0400 Weight 101.61 kg Juanita Ambriz [facility] Work Phone: 10-27-2016 09:47-0500 BSA (Body Surface Area) 1.98 m2 Juanita Wilkinsonby [facility] Work Phone: 11-05-2015 10:46-0500 Heart rate 60 /min Harumi DeFinis [facility] Work Phone: 10-19-2012 10:39-0500 Heart rate 416 ms Mary Abreu [facility] Work Phone: 06-02-2012 13:33-0400 Body Temperature 96.8 [degF] Juanita Ambriz [facility] Work Phone: Encounters Encounter Date Encounter Type Care Provider Facility Start: 08-01-2025 ambulatory [facility] Facility:[facility] Start: 06-20-[address] Judd Rubio MD -Speech Therapy Work Phone: Start: 06-07-2025 End: 06-07-[address] Desmond Riojas MD Work Phone: -Laboratory Phy Office 3rd Flr Start: 06-07-2025 End: 06-07-[address] Desmond Riojas MD -Laboratory Phy Office 3rd Flr Start: 06-07-2025 End: 06-07-2025 ambulatory Desmond Riojas Facility:[facility] Start: 05-31-2025 End: 05-31-2025 Patient encounter procedure Harriet MULLINS -[facility] Work Phone: Start: 05-31-2025 End: 05-31-[address] Desmond Riojas MD Work Phone: [facility] Start: 05-28-[address] Judd Rubio MD -Physical Therapy Work Phone: Start: 2025 End: 2025 Patient encounter procedure Harriet MULLINS -[facility] Work Phone: Start: 2025 End: [address] Desmond Riojas MD Work Phone: [facility] Work Phone: Start: 02-20-2025 Non-patient / Non-visit Dr. Donovan Onofre MD -[facility] Start: 02-20-2025 End: 02-20-[address] Desmond Riojas MD Work Phone: [facility] Work Phone: Start: 02-20-2025 End: 02-20-[address] Marlin Onofre MD -Cardiovascular Services Work Phone: Start: 02-20-2025 End: 02-20-2025 ambulatory Desmond Chi Shine Facility:[facility] Start: 02-07-2025 ambulatory Desmond Jose Shine Facility:[facility] Start: 02-07-2025 Non-patient / Non-visit Alexander Huimira adriana DO -[facility] Start: 02-07-2025 End: 02-07-2025 Admission to same day surgery center Alexander Bailey DO -Endoscopy Work Phone: Start: 02-07-2025 End: 02-07-[address] Desmond Riojas MD Work Phone: [facility] Work Phone: Start: 01-22-2025 End: 01-22-[address] Desmond Riojas MD Work Phone: [facility] Work Phone: Start: 01-22-2025 End: 01-22-2025 Patient encounter procedure Daya HILL -Nuclear Medicine, [facility] Work Phone: Start: 01-22-2025 End: 01-22-2025 ambulatory Daya Harrell Facility:[facility] Start: 01-18-2025 End: 01-18-[address] Marlin Onofre MD -[facility] Work Phone: Start: 01-18-2025 End: 01-18-[address] Marlin Onofre MD [facility] Start: 01-18-2025 End: 01-18-2025 ambulatory Desmond Riojas Facility:[facility] Start: 12-29-2024 End: 12-29-[address] Desmond Riojas MD Work Phone: [facility] Work Phone: Start: 12-29-2024 End: 12-29-2024 Patient encounter procedure Daya Harrell PERIOPERATIVE TECH-C -Radiology, [facility] Work Phone: Start: 12-29-2024 End: 12-29-2024 ambulatory Daya Harrell Facility:[facility] Start: 12-05-2024 End: 12-05-[address] Desmond Riojas MD Work Phone: [facility] Work Phone: Start: 12-05-2024 End: 12-05-[address] Desmond Riojas MD -Laboratory Work Phone: Start: 12-05-2024 End: 12-05-2024 ambulatory Desmond Riojas Facility:[facility] Start: 11-24-2024 End: 11-24-2024 Patient encounter procedure Harriet MULLINS -[facility] Work Phone: Start: 11-24-2024 End: 11-24-2024 ambulatory Desmond Riojas Facility:[facility] Start: 10-09-2024 End: 10-09-2024 Bamboo flowsheet Magnolia S Jonniet PERIOPERATIVE TECH Work Phone: [facility] Start: 10-09-2024 End: 10-09-2024 Bamboo flowsheet Magnolia S Caroleandt PERIOPERATIVE TECH Work Phone: [facility] Start: 10-09-2024 End: 10-09-2024 Office outpatient visit 25 minutes Magnolia S Caroleandt PERIOPERATIVE TECH Work Phone: [facility] Comment on above: Parkinson's disease without dyskinesia, with fluctuating manifestations (CMS/HCC) (Primary Dx); Chronic migraine without aura, intractable, without status migrainosus (CMS/HCC); Neuropathy; VALENTIN (obstructive sleep apnea) Start: 10-09-2024 End: 10-09-2024 ambulatory MAGNOLIA VITALEANDT Not Available Start: 08-25-2024 End: 08-25-2024 Patient encounter procedure Harriet MULLINS -[facility] Work Phone: Start: 08-25-2024 End: 08-25-2024 ambulatory Desmond Chi Shine Facility:[facility] Start: 08-12-2024 End: 08-12-2024 ambulatory Desmond Chi Shine Facility:[facility] Start: 07-31-2024 End: 07-31-2024 Bamboo flowsheet Preston Molina MD Work Phone: [facility] Start: 07-31-2024 End: 07-31-2024 Bamboo flowsheet Preston Molina MD Work Phone: [facility] Start: 07-31-2024 End: 07-31-2024 Office outpatient visit 25 minutes Preston Molina MD Work Phone: [facility] Comment on above: Neuropathy (Primary Dx); Parkinson's disease without dyskinesia, with fluctuating manifestations (CMS/HCC); VALENTIN (obstructive sleep apnea); Chronic migraine without aura, intractable, without status migrainosus (CMS/HCC); Medication overuse headache; Hiatal hernia; Weight loss; Constipation, unspecified constipation type Start: 07-31-2024 End: 07-31-2024 ambulatory PRESTON MOLINA Not Available Start: 07-27-2024 End: 08-10-2024 Orders Only Preston Molina MD Work Phone: [facility] Comment on above: Migraine without aur a and with status migrainosus, not intractable (CMS/HCC) (Primary Dx) Start: 07-03-2024 End: 07-03-2024 Bamboo flowsheet Preston Molina MD Work Phone: [facility] Start: 07-03-2024 End: 07-03-2024 Bamboo flowsheet Preston Molina MD Work Phone: [facility] Start: 07-03-2024 End: 07-03-2024 Office outpatient visit 25 minutes Preston Molina MD Work Phone: [facility] Comment on above: Neuropathy (Primary Dx); Chronic bilateral low back pain without sciatica; Parkinson's disease without dyskinesia, with fluctuating manifestations (CMS/HCC); Stress; Chronic migraine without aura, intractable, without status migrainosus (CMS/HCC); Memory loss; Dysarthria Start: 07-03-2024 End: 07-03-2024 ambulatory PRESTON MOLINA Not Available Start: 06-12-2024 End: 06-12-2024 Telephone encounter Magnolia Sheffield PERIOPERATIVE TECH Work Phone: [facility] Start: 06-02-2024 End: 06-02-2024 Bamboo flowsheet Magnolia Cristinat PERIOPERATIVE TECH Work Phone: [facility] Start: 06-02-2024 End: 06-02-2024 Bamboo flowsheet Magnolia Cristinat PERIOPERATIVE TECH Work Phone: [facility] Start: 06-02-2024 End: 06-02-2024 Office outpatient visit 40 minutes Magnolia Sheffield PERIOPERATIVE TECH Work Phone: [facility] Comment on above: Neuropathy (Primary Dx); Chronic bilateral low back pain without sciatica; Parkinson's disease without dyskinesia, with fluctuating manifestations (CMS/HCC); VALENTIN (obstructive sleep apnea); Insomnia, unspecified type; Stress; Chronic migraine without aura, intractable, without status migrainosus (CMS/HCC) Start: 06-02-2024 End: 06-02-2024 ambulatory MAGNOLIA SHEFFIELD Not Available Start: 05-31-2024 End: 05-31-2024 ambulatory PRESTON MOLINA Not Available Start: 05-25-2024 End: 05-25-2024 Telephone encounter Preston Molina MD Work Phone: [facility] Start: 04-05-2024 End: 04-05-2024 ambulatory PRESTON MOLINA Not Available Start: 02-22-2024 End: 02-22-2024 ambulatory MAGNOLIA CRISTINAT Not Available Start: 01-17-2024 End: 01-17-2024 ambulatory PRESTON MOLINA Not Available Start: 01-10-2024 End: 01-10-[address] Desmond Riojas Work Phone: [facility] Work Phone: Start: 01-10-2024 End: 01-10-[address] Desmond Riojas Work Phone: [facility] Work Phone: Start: 12-30-2023 End: 12-30-2023 ambulatory PRESTON MOLINA Not Available Start: 12-20-2023 Non-patient / Non-visit Dr. Abram Riojas Work Phone: [facility] Work Phone: Start: 12-19-2023 Non-patient / Non-visit Dr. Abram Riojas Work Phone: [facility] Work Phone: Start: 12-18-2023 Non-patient / Non-visit Dr. Abram Riojas Work Phone: [facility] Work Phone: Start: 12-17-2023 End: 12-20-2023 Evaluation and management of inpatient [facility]-Medical Surgical 3 Work Phone: Start: 12-17-2023 End: 12-20-[address] Desmond Riojas Work Phone: [facility] Work Phone: Start: 12-16-2023 End: 12-16-[address] Desmond Riojas Work Phone: [facility] Work Phone: Start: 12-16-2023 End: 12-16-2023 Patient encounter procedure [facility]-Cat Scan, [facility] Work Phone: Start: 12-03-2023 End: 12-03-2023 Emergency department patient visit [facility]-Emergency Department Work Phone: Start: 11-30-2023 End: 11-30-2023 ambulatory [facility] Work Phone: Start: 11-30-2023 End: 11-30-2023 Patient encounter procedure [facility]-Laboratory, Phy Office 3rd Flr Start: 11-04-2023 End: 11-04-2023 ambulatory MAGNOLIA SHEFFIELD Not Available Start: 06-03-2023 End: 06-03-2023 ambulatory [facility] Work Phone: Start: 06-03-2023 End: 06-03-2023 Patient encounter procedure [facility]-Outpatient Breast Imaging Work Phone: Start: 06-02-2023 End: 06-02-2023 ambulatory [facility] Work Phone: Start: 06-02-2023 End: 06-02-2023 [facility] Start: 02-24-2023 End: 02-24-2023 Discharged Recurring [facility]-Physical Therapy Work Phone: Start: 01-25-[address] Desmond bergman Work Phone: [facility]-Physical Therapy Start: 01-19-2023 End: 01-19-[address] Desmond Riojas Work Phone: [facility] Work Phone: Start: 01-19-2023 End: 01-19-[address] Desmond Riojas Work Phone: [facility]-Laboratory Start: 01-04-2023 End: 01-04-[address] 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 Desmond Riojas Work Phone: [facility] Work Phone: Start: 11-25-2022 End: 11-25-[address] Desmond Riojas Work Phone: [facility]-Laboratory, Phy Office 3rd Flr Start: 11-23-[address] Desmond bergman Work Phone: [facility]-Physical Therapy Start: 11-18-2022 End: 11-18-[address] Desmond Riojas Work Phone: [facility] Start: 10-16-2022 End: 10-16-[address] Desmond Riojas Work Phone: [facility] Start: 09-25-2022 End: 09-25-[address] Desmond Riojas Work Phone: [facility] Work Phone: Start: 09-25-2022 End: 09-25-[address] Desmond Riojas Work Phone: [facility] Start: 09-18-2022 End: 09-18-[address] Desmond Riojas Work Phone: [facility] Start: 09-14-2022 Non-patient / Non-visit Dr. Abram Riojas Work Phone: [facility] Start: 09-14-2022 Non-patient / Non-visit Dr. Abram Riojas Work Phone: [facility] Start: 09-13-2022 Non-patient / Non-visit Dr. Abram Riojas Work Phone: [facility] Start: 09-12-2022 End: 09-14-2022 Evaluation and management of inpatient Dr. Desmond Riojas Work Phone: [facility]-Progressive Care Unit Start: 09-08-[address] 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 Desmond bergman Work Phone: [facility]-Physical Therapy Start: 07-24-2022 End: 07-24-[address] Desmond Riojas Work Phone: [facility] Work Phone: Start: 07-24-2022 End: 07-24-[address] Desmond Riojas Work Phone: [facility]-Laboratory Start: 07-22-2022 Telephone encounter Luis Felipe camilo DO Work Phone: Hematology/Oncology Comment on above: Patient Question Start: 06-22-2022 Telephone encounter Dio Baptiste [facility] Comment on above: Patient Question Start: 06-18-2022 [...] End: 06-16-2022 Patient encounter procedure Luis Felipe Mark Prabhakar MALONE Work Phone: [facility] Start: 06-15-2022 End: 06-15-[address] Desmond Riojas Work Phone: [facility] Work Phone: Start: 06-15-2022 End: 06-15-[address] Desmond Riojas Work Phone: [facility]-Laboratory, Phy Office 3rd Flr Start: 06-12-2022 Non-patient / Non-visit Dr. Abram Riojas Work Phone: [facility] Start: 06-11-2022 Non-patient / Non-visit Dr. Abram Riojas Work Phone: [facility] Start: 06-09-2022 Non-patient / Non-visit Dr. Abram Riojas Work Phone: [facility] Start: 06-08-2022 Non-patient / Non-visit Dr. Abram Riojas Work Phone: [facility] Start: 06-04-2022 Non-patient / Non-visit Dr. Abram Riojas Work Phone: [facility] Start: 06-02-2022 Non-patient / Non-visit Dr. Abram Riojas Work Phone: [facility] Start: 06-01-2022 Non-patient / Non-visit Dr. Abram Riojas Work Phone: [facility] Start: 06-01-2022 End: 06-13-2022 Evaluation and management of inpatient Dr. Desmond Riojas Work Phone: [facility]-Rehab Unit Start: 05-31-2022 Non-patient / Non-visit Dr. Abram Riojas Work Phone: [facility] Start: 05-30-2022 Non-patient / Non-visit Dr. Abram Riojas Work Phone: [facility] Start: 05-29-2022 Non-patient / Non-visit Dr. Abram Riojas Work Phone: [facility] Start: 05-28-2022 End: 06-01-2022 Evaluation and management of inpatient [facility]-Medical Surgical 3 Start: 05-27-2022 End: 05-27-2022 Patient encounter procedure [facility]-Laboratory, Phy Office 3rd Flr Start: 01-08-2022 End: 01-08-[address] Desmond Riojas Work Phone: [facility] Start: 11-24-2021 End: 11-24-[address] Desmond Riojas Work Phone: [facility] Start: 11-19-2021 End: 11-19-[address] [facility] Start: 11-03-2021 End: 11-03-[address] Desmnod Riojas Work Phone: [facility] Date Procedure Procedure Detail Performing Clinician Start: 06-07-2025 Vitamin D, 25-hydroxy measurement Dr. Abram Riojas MD Work Phone: Comment on above: Vitamin D StatusDeficiency: <20 ng/mL (5 0nmol/L)Insufficiency: 20-30 ng/mL (50-75 nmol/L)Sufficiency: 30-100 ng/mL (75-250 nmol/L)Toxicity: >100 ng/mL (>250 nmol/L) Start: 02-07-[address] Desmond Riojas MD Work Phone: Start: 01-22-2025 Radionuclide gastric emptying study Dr. Desmond Riojas MD Work Phone: Start: 12-29-2024 Plain X-ray abdomen Dr. Desmond Riojas MD Work Phone: Start: 12-05-2024 Vitamin D, 25-hydroxy measurement Dr. Abram Riojas MD Work Phone: Comment on above: Vitamin D StatusDeficiency: <20 ng/mL (5 0nmol/L)Insufficiency: 20-30 ng/mL (50-75 nmol/L)Sufficiency: 30-100 ng/mL (75-250 nmol/L)Toxicity: >100 ng/mL (>250 nmol/L) Start: 07-25-2024 CT SCAN : BRAIN W/O CONTRAST Preston estes MD Work Phone: Start: 01-10-2024 MRI of brain without contrast Dr. Desmond narayanan Work Phone: Start: 12-18-2023 MRI of brain without contrast Dr. Desmond narayanan Work Phone: Start: 12-16-2023 CT of head without contrast Start: 12-03-2023 Radiologic examination of knee Start: 12-03-2023 CT cervical spine without contrast Start: 12-03-2023 CT of face Start: 12-03-2023 CT of head without contrast Start: 06-03-2023 Screening mammography Start: 09-25-2022 US scan of thyroid Dr. Desmond Riojas Work Phone: Start: 09-18-2022 X-ray of lumbar spine, two or three views Dr. Desmond Riojas Work Phone: Start: 09-14-2022 MRI of lumbar spine Dr. Desmond Riojas Work Phone: Start: 09-12-2022 MRI of brain without contrast Dr. Desmond narayanan Work Phone: Start: 09-12-2022 Plain chest X-ray Dr. Desmond Riojas Work Phone: Start: 09-12-2022 CT angiography of head and neck Dr. Desmond Riojas Work Phone: Start: 09-12-2022 CT of head without contrast Dr. Desmond Riojas Work Phone: Start: 09-12-2022 Plain x-ray of pelvis and lower extremity Dr. Desmond Riojas Work Phone: Start: 06-12-2022 Plain x-ray of pelvis and lower extremity Dr. Desmond Riojas Work Phone: Start: 05-30-2022 X-ray of cervical spine Dr. Desmond Riojas Work Phone: Start: 05-30-2022 Plain X-ray of hip Dr. Desmond Riojas Work Phone: Start: 05-30-2022 Primary uncemented hemiarthroplasty of hip Dr. Desmond Riojas Work Phone: Start: 05-30-[address] Desmond Riojas Work Phone: Start: 05-30-2022 Plain x-ray of pelvis and lower extremity Dr. Desmond Riojas Work Phone: Start: 05-28-2022 Plain x-ray of pelvis and lower extremity Start: 01-08-2022 MRI of lumbar spine Dr. Desmond Riojas Work Phone: Start: 11-19-2021 X-ray of lumbar spine, two or three views Dr. Desmond Riojas Work Phone: Start: 05-07-2017 End: 05-07-2017 Follow [...] End: 10-27-2016 Follow Up Appt 6 months ÓSCAR CooperC Work Phone: Start: 10-27-2016 End: 10-27-2016 PFM ÓSCAR CooperC Work Phone: Start: 10-27-2016 End: 10-27-2016 Follow Up Appt 6 months Kylee Burr PA-C Work Phone: Start: 10-27-2016 End: 10-27-2016 PFM ÓSCAR CooperC Work Phone: Start: 04-27-2016 End: 10-15-2016 Follow Up Appt 6 months Luis Felipe Garzon MD Start: 04-27-2016 End: 05-07-2017 Follow Up Appt Other Luis Felipe Garzon MD Start: 04-27-2016 End: 10-15-2016 CHERRIE Garzon MD Start: 04-27-2016 End: 10-15-2016 Follow Up Appt 6 months Luis Felipe Garzon MD Start: 04-27-2016 End: 05-07-2017 Follow Up Appt Other Luis Felipe Garzon MD Start: 04-27-2016 End: 10-15-2016 MMM Luis Felipe Garzon MD Start: 11-05-2015 End: 11-05-2015 Follow Up Appt 6 months ÓSCAR CooperC Work Phone: Start: 11-05-2015 End: 11-05-2015 PFM ÓSCAR CooperC Work Phone: Start: 11-05-2015 End: 11-05-2015 Follow Up Appt 6 months Kylee Burr PA-C Work Phone: Start: 11-05-2015 [...] 09-06-2014 Follow Up Appt 6 months Kylee Burr PA-C Work Phone: Start: 09-06-2014 End: 05-01-2015 Nuclear stress test -Lexiscan Kylee Burr PA-C Work Phone: Start: 09-06-2014 End: 09-06-2014 PFM Kylee Burr PA-C Work Phone: Start: 09-06-2014 End: 09-06-2014 Electrocardiogram, complete Kylee Burr PA-C Work Phone: Start: 09-06-2014 End: 09-06-2014 Follow Up Appt 6 months Kylee Burr PA-C Work Phone: Start: 09-06-2014 End: 05-01-2015 [facility] Work Phone: Start: 09-06-2014 End: [...] Felipe Garzon MD Start: 03-15-2014 End: 03-15-2014 MMCinda Garzon MD Start: 07-26-2013 End: 07-26-2013 Follow Up Appt 6 months Kylee Burr PA-C Work Phone: Start: 07-26-2013 End: 07-26-2013 PFM Kylee Burr PA-C Work Phone: Start: 07-26-2013 End: 07-26-2013 Follow Up Appt 6 months Kylee Burr PA-C Work Phone: Start: 07-26-2013 End: 07-26-2013 PFM Kylee Burr PA-C Work Phone: Start: 01-16-2013 End: 01-16-2013 Follow Up Appt 6 months Luis Felipe Garzon MD Start: 01-16-2013 End: 01-16-2013 MMM Luis Felipe Garzon MD Start: 01-16-2013 End: 01-16-2013 Follow Up Appt 6 months Luis Felipe Garzon MD Start: 01-16-2013 End: 01-16-2013 CHERRIE Garzon MD Start: 10-31-2012 End: 01-16-2013 Echocardiography [...] 01-16-2013 Nuclear stress test -adenosine Luis Felipe tomas MD Start: 10-19-2012 End: 01-16-2013 24 hour holter monitor Luis Felipe Garzon MD Start: 10-19-2012 End: 10-19-2012 Electrocardiogram, complete Luis Felipe nevarez MD Start: 10-19-2012 End: 10-19-2012 Follow Up Appt 3 months Luis Felipe Garzon MD Start: 10-19-2012 End: 01-16-2013 Nuclear stress test -adenosine Luis Felipe tomas MD Start: 11-18-2010 Mammography Luis Felipe Gustafsonvance MALONE Work Phone: Start: 09-08-2009 Colonoscopy Luis Felipe Radford DO Work Phone: Measurement of occul t blood in stool specimen using immunoassay Dr. Desmond Riojas Work Phone: Plan of Treatment Date Care Activity Detail Author Start: 02-07-2025 Egd transoral biopsy single/multiple EGD BIOPSY SINGLE/MULTIPLE [facility] Start: 02-07-2025 Patient discharge [facility] Start: 01-18-2025 Patient referral [facility] Work Phone: Start: 01-18-2025 Evaluation of diagno stic study results [facility] Start: 10-09-2024 End: 10-09-2024 Patient encounter procedure 10/09/2024 10:00 AM EST Office Visit [facility] [address] [place] [phone] Magnolia Sheffield NP [address] [place] [address] [facility] Start: 10-09-2024 End: 10-09-2024 Telemedicine consultation with patient 10/09/2024 10:00 AM EST Telemedicine [facility] [address] [place] [phone] Magnolia Sheffield NP [address] [place] [address] Arrived [facility] Comment on above: Arrived Start: 08-10-2024 End: 08-10-2025 C reactive protein [Mass/volume] in Serum or Plasma C-reactive protein Lab Routine Migraine without aura and with status migrainosus, not intractable (CMS/HCC) Expected: 08/10/2024 (Approximate), Expires: 08/10/2025 [facility] Comment on above: Expected: 08/10/2024 (Approximate), Expires: 08/10/2025 Start: 08-10-2024 End: 08-10-2025 Erythrocyte sedimentation rate Sedimentation rate, automated Lab Routine Migraine without aura and with status migrainosus, not intractable (CMS/HCC) Expected: 08/10/2024 (Approximate), Expires: 08/10/2025 [facility] Work Phone: Comment on above: Expected: 08/10/2024 (Approximate), Expires: 08/10/2025 Start: 07-31-2024 End: 07-31-2024 Patient encounter procedure 07/31/2024 11:40 AM EST Office Visit [facility] [address] [place] [place] [phone] Preston Molina MD [address] [place], [place] [phone] [facility] Start: 07-07-2024 End: 07-07-2024 Telemedicine consultation with patient 07/07/2024 2:00 PM EDT Telemedicine [facility] [address] [place] [phone] Magnolia Sheffield PERIOPERATIVE TECH [address] [place], [place] [id number] [facility] Start: 07-03-2024 End: 07-03-2025 Ammonia [Mass/volume] in Plasma Ammonia Lab Routine Neuropathy Chronic bilateral low back pain without sciatica Parkinson's disease without dyskinesia, with fluctuating manifestations (CMS/HCC) Stress Chronic migraine without aura, intractable, without status migrainosus (CMS/HCC) Memory loss Dysarthria Expected: 07/03/2024 (Approximate), Expires: 07/03/2025 [facility] Comment on above: Expected: 07/03/2024 (Approximate), Expires: 07/03/2025 Start: 07-03-2024 End: 07-03-2025 Cobalamin (Vitamin B12) [Mass/volume] in Serum or Plasma Vitamin B12 Lab Routine Neuropathy Chronic bilateral low back pain without sciatica Parkinson's disease without dyskinesia, with fluctuating manifestations (CMS/HCC) Stress Chronic migraine without aura, intractable, without status migrainosus (CMS/HCC) Memory loss Dysarthria Expected: 07/03/2024 (Approximate), Expires: 07/03/2025 [facility] Comment on above: Expected: 07/03/2024 (Approximate), Expires: 07/03/2025 Start: 07-03-2024 End: 07-03-2025 Comprehensive metabolic 2000 panel - Serum or Plasma Comprehensive metabolic panel Lab Routine Neuropathy Chronic bilateral low back pain without sciatica Parkinson's disease without dyskinesia, with fluctuating manifestations (CMS/HCC) Stress Chronic migraine without aura, intractable, without status migrainosus (CMS/HCC) Memory loss Dysarthria Expected: 07/03/2024 (Approximate), Expires: 07/03/2025 [facility] Comment on above: Expected: 07/03/2024 (Approximate), Expires: 07/03/2025 Start: 07-03-2024 End: 07-03-2025 CT Head WO contrast CT head wo IV contrast Imaging Routine Neuropathy Chronic bilateral low back pain without sciatica Parkinson's disease without dyskinesia, with fluctuating manifestations (CMS/HCC) Stress Chronic migraine without aura, intractable, without status migrainosus (CMS/HCC) Memory loss Dysarthria Expected: 07/03/2024, Expires: 07/03/2025 [facility] Work Phone: Comment on above: Expected: 07/03/2024 , Expires: 07/03/2025 Start: 07-03-2024 End: 07-03-2025 Heavy metals, blood Heavy metals, blood Lab Routine Neuropathy Chronic bilateral low back pain without sciatica Parkinson's disease without dyskinesia, with fluctuating manifestations (CMS/HCC) Stress Chronic migraine without aura, intractable, without status migrainosus (CMS/HCC) Memory loss Dysarthria Expected: 07/03/2024 (Approximate), Expires: 07/03/2025 [facility] Comment on above: Expected: 07/03/2024 (Approximate), Expires: 07/03/2025 Start: 07-03-2024 End: 07-03-2025 Thyrotropin [Units/volume] in Serum or Plasma TSH Lab Routine Neuropathy Chronic bilateral low back pain without sciatica Parkinson's disease without dyskinesia, with fluctuating manifestations (CMS/HCC) Stress Chronic migraine without aura, intractable, without status migrainosus (CMS/HCC) Memory loss Dysarthria Expected: 07/03/2024 (Approximate), Expires: 07/03/2025 [facility] Comment on above: Expected: 07/03/2024 (Approximate), Expires: 07/03/2025 Start: 07-03-2024 End: 07-03-2025 Valproic acid level, total Valproic acid level, total Lab Routine Neuropathy Chronic bilateral low back pain without sciatica Parkinson's disease without dyskinesia, with fluctuating manifestations (CMS/HCC) Stress Chronic migraine without aura, intractable, without status migrainosus (CMS/HCC) Memory loss Dysarthria Expected: 07/03/2024 (Approximate), Expires: 07/03/2025 [facility] Comment on above: Expected: 07/03/2024 (Approximate), Expires: 07/03/2025 Start: 07-03-2024 End: 07-03-2024 Patient encounter procedure 07/03/2024 11:40 AM EDT Office Visit [facility] [address] [place] [phone] Preston Molina MD [address] [place], [place] [phone] Arrived [facility] Comment on above: Arrived Start: 05-31-2024 End: 05-31-2024 Patient encounter procedure [facility] Start: 05-21-2024 Influenza vaccination Influenza Vacc ine (#1) [facility] Start: 12-21-2023 End: 12-21-2023 Referral to service [facility] Start: 12-20-2023 Patient discharge [facility] Start: 12-19-2023 [facility] Start: 12-18-2023 Following clinical p athway protocol [facility] Start: 12-18-2023 Aspiration precautions [facility] Start: 12-18-2023 Assessment of risk o f venous thromboembolism [facility] Start: 12-18-2023 Insertion of cathete r into peripheral vein [facility] Start: 12-18-2023 Measuring intake and output [facility] Start: 12-18-2023 Oxygen therapy [facility] Start: 12-18-2023 Providing care accor ding to standard [facility] Start: 12-18-2023 Provision of activit y privileges [facility] Start: 12-18-2023 Referral to occupati onal therapist [facility] Start: 12-18-2023 Referral to service [facility] Start: 12-18-2023 [facility] Start: 12-18-2023 Verification routine [facility] Start: 12-18-2023 Admission procedure [facility] Start: 12-17-2023 Hospital admission, emergency, from emergency room, medical nature [facility] Start: 12-03-2023 [facility] Start: 12-11-2022 End: 02-10-2023 CBC W Auto Differential panel - Blood CBC + DIFF Lab STAT Iron deficiency anemia due to chronic blood loss Iron malabsorption Expected: 12/11/2022, Expires: 02/10/2023 [facility] Work Phone: Comment on above: Expected: 12/11/2022 , Expires: 02/10/2023 Start: 12-11-2022 End: 02-10-2023 Ferritin [Mass/volume] in Serum or Plasma FERRITIN BLD Lab Routine Iron deficiency anemia due to chronic blood loss Iron malabsorption Expected: 12/11/2022, Expires: 02/10/2023 [facility] Work Phone: Comment on above: Expected: 12/11/2022 , Expires: 02/10/2023 Start: 12-11-2022 End: 02-10-2023 Iron and Iron binding capacity panel - Serum or Plasma IRON + TIBC Lab Routine Iron deficiency anemia due to chronic blood loss Iron malabsorption Expected: 12/11/2022, Expires: 02/10/2023 [facility] Work Phone: Comment on above: Expected: 12/11/2022 , Expires: 02/10/2023 Start: 11-18-2022 Patient referral [facility] Work Phone: Start: 09-20-2022 ADVANCE DIRECTIVE DISCUSSION ADVANCE DIRECTIVE DISCUSSION [facility] Start: 09-20-2022 DEPRESSION ASSESSMENT DEPRESSION ASS ESSMENT [facility] Start: 09-18-2022 Patient referral [facility] Work Phone: Start: 09-14-2022 Patient discharge [facility] Start: 09-12-2022 Following clinical p athway protocol [facility] Start: 09-12-2022 Aspiration precautions [facility] Start: 09-12-2022 Assessment of risk o f venous thromboembolism [facility] Start: 09-12-2022 Cardiac monitoring [facility] Start: 09-12-2022 Catheterization of vein [facility] Start: 09-12-2022 Continuous positive airway pressure ventilation treatment [facility] Start: 09-12-2022 Continuous pulse oximetry [facility] Start: 09-12-2022 Elevation of head of bed [facility] Start: 09-12-2022 Exercises [facility] Start: 09-12-2022 Fall prevention [facility] Start: 09-12-[address] anned interventions [facility] Start: 09-12-2022 Incentive spirometry [facility] Start: 09-12-2022 Inhalation therapy procedure [facility] Start: 09-12-2022 Insertion of cathete r into peripheral vein [facility] Start: 09-12-2022 Introduction of urin wilma catheter [facility] Start: 09-12-2022 Measuring intake and output [facility] Start: 09-12-2022 Notification of physician [facility] Start: 09-12-2022 Oxygen therapy [facility] Start: 09-12-2022 Patient referral to dietitian [facility] Start: 09-12-2022 Providing care accor ding to standard [facility] Start: 09-12-2022 Provision of activit y privileges [facility] Start: 09-12-2022 Referral to occupati onal therapist [facility] Start: 09-12-2022 Referral to service [facility] Start: 09-12-2022 Speech therapy assessment [facility] Start: 09-12-2022 Tobacco use cessatio n education [facility] Start: 09-12-2022 [facility] Start: 09-12-2022 Verification routine [facility] Work Phone: Start: 09-12-2022 Admission procedure [facility] Start: 09-12-2022 Oxygen therapy [facility] Work Phone: Start: 09-12-2022 [facility] Work Phone: Start: 08-14-2022 End: 10-14-2022 CBC W Auto Differential panel - Blood CBC + DIFF Lab STAT Iron deficiency anemia due to chronic blood loss Iron malabsorption Expected: 08/14/2022, Expires: 10/14/2022 [facility] Work Phone: Comment on above: Expected: 08/14/2022 , Expires: 10/14/2022 Start: 08-14-2022 End: 10-14-2022 Ferritin [Mass/volume] in Serum or Plasma FERRITIN BLD Lab Routine Iron deficiency anemia due to chronic blood loss Iron malabsorption Expected: 08/14/2022, Expires: 10/14/2022 [facility] Work Phone: Comment on above: Expected: 08/14/2022 , Expires: 10/14/2022 Start: 08-14-2022 End: 10-14-2022 Iron and Iron binding capacity panel - Serum or Plasma IRON + TIBC Lab Routine Iron deficiency anemia due to chronic blood loss Iron malabsorption Expected: 08/14/2022, Expires: 10/14/2022 [facility] Work Phone: Comment on above: Expected: 08/14/2022 , Expires: 10/14/2022 Start: 06-16-2022 End: 08-16-2022 B 2 GPI IGG & IGM [facility] Work Phone: Comment on above: Expected: 06/16/2022 , Expires: 08/16/2022 Start: 06-16-2022 End: 08-16-2022 Cardiolipin IgG and IgM panel - Serum [facility] Work Phone: Comment on above: Expected: 06/16/2022 , Expires: 08/16/2022 Start: 06-16-2022 End: 08-16-2022 Ferritin [Mass/volume] in Serum or Plasma [facility] Work Phone: Comment on above: Expected: 06/16/2022 , Expires: 08/16/2022 Start: 06-16-2022 End: 08-16-2022 Iron and Iron binding capacity panel - Serum or Plasma [facility] Work Phone: Comment on above: Expected: 06/16/2022 , Expires: 08/16/2022 Start: 06-13-2022 Patient discharge [facility] Work Phone: Start: 06-08-2022 Referral to service [facility] Work Phone: Start: 06-04-2022 Measuring intake and output [facility] Work Phone: Start: 06-02-2022 Following clinical p athway protocol [facility] Work Phone: Start: 06-01-2022 Following clinical p athway protocol [facility] Work Phone: Start: 06-01-2022 Application of intermittent pneumatic compression device [facility] Work Phone: Start: 06-01-[address] anned interventions [facility] Work Phone: Start: 06-01-2022 Wound care [facility] Work Phone: Start: 06-01-2022 Referral to service [facility] Work Phone: Start: 06-01-2022 Urinary bladder training [facility] Work Phone: Start: 06-01-2022 Admission procedure [facility] Work Phone: Start: 06-01-2022 Patient referral to dietitian [facility] Work Phone: Start: 06-01-2022 Referral to occupati onal therapist [facility] Work Phone: Start: 06-01-2022 Vital signs measurements [facility] Work Phone: Start: 06-01-2022 End: 06-01-2022 [facility] Work Phone: Start: 06-01-2022 Patient discharge [facility] Work Phone: Start: 06-01-2022 Application of device [facility] Work Phone: Start: 06-01-2022 Catheterization of vein [facility] Work Phone: Start: 06-01-2022 Incentive spirometry [facility] Work Phone: Start: 05-30-2022 Provision of overbed trapeze [facility] Work Phone: Start: 05-30-2022 Ambulation therapy management [facility] Work Phone: Start: 05-30-2022 Application of device [facility] Work Phone: Start: 05-30-2022 Assessment of risk o f venous thromboembolism [facility] Work Phone: Start: 05-30-2022 Catheterization of vein [facility] Work Phone: Start: 05-30-2022 Exercises [facility] Work Phone: Start: 05-30-2022 Following clinical p athway protocol [facility] Work Phone: Start: 05-30-2022 Incentive spirometry [facility] Work Phone: Start: 05-30-2022 Introduction of urin wilma catheter [facility] Work Phone: Start: 05-30-2022 Measuring intake and output [facility] Work Phone: Start: 05-30-2022 Neurovascular assessment [facility] Work Phone: Start: 05-30-2022 Patient education [facility] Work Phone: Start: 05-30-2022 Procedure discontinued [facility] Work Phone: Start: 05-30-2022 Provision of activit y privileges [facility] Work Phone: Start: 05-30-2022 Referral to occupati onal therapist [facility] Work Phone: Start: 05-30-2022 Referral to service [facility] Work Phone: Start: 05-30-2022 Vital signs measurements [facility] Work Phone: Start: 05-30-2022 Wound care [facility] Work Phone: Start: 05-30-2022 End: 05-30-2022 [facility] Work Phone: Start: 05-29-2022 Measuring intake and output [facility] Work Phone: Start: 05-29-2022 Measuring intake and output [facility] Work Phone: Start: 05-29-2022 Measuring intake and output [facility] Work Phone: Start: 05-28-2022 Application of intermittent pneumatic compression device [facility] Work Phone: Start: 05-28-2022 Incentive spirometry [facility] Work Phone: Start: 05-28-2022 Application of ice c ollar, cap or bag [facility] Work Phone: Start: 05-28-2022 Assessment of risk o f venous thromboembolism [facility] Work Phone: Start: 05-28-2022 Bedrest [facility] Work Phone: Start: 05-28-2022 Consultation [facility] Work Phone: Start: 05-28-2022 Continuous positive airway pressure ventilation treatment [facility] Work Phone: Start: 05-28-2022 Fall prevention [facility] Work Phone: Start: 05-28-2022 Inhalation therapy procedure [facility] Work Phone: Start: 05-28-2022 Insertion of cathete r into peripheral vein [facility] Work Phone: Start: 05-28-2022 Neurovascular assessment [facility] Work Phone: Start: 05-28-2022 Oxygen therapy [facility] Work Phone: Start: 05-28-2022 Providing care accor ding to standard [facility] Work Phone: Start: 05-28-2022 Referral to occupati onal therapist [facility] Work Phone: Start: 05-28-2022 Referral to service [facility] Work Phone: Start: 05-28-2022 Skin care [facility] Work Phone: Start: 05-28-2022 [facility] Work Phone: Start: 05-28-2022 Measuring intake and output [facility] Work Phone: Start: 05-28-2022 Following clinical p athway protocol [facility] Work Phone: Start: 05-28-2022 Brain natriuretic pe ptide measurement [facility] Work Phone: Start: 05-28-2022 Partial thromboplast in time, activated [facility] Work Phone: Start: 05-28-2022 Prothrombin time [facility] Work Phone: Start: 05-28-2022 Admission procedure [facility] Work Phone: Start: 05-21-2022 Influenza vaccination INFLUENZA (#1) [facility] Start: 03-13-2022 COVID-19 VACCINE (4 - Booster for Moderna series) COVID-19 VACCINE (4 - Booster for Moderna series) [facility] Start: 09-20-2021 ADVANCE DIRECTIVE DISCUSSION ADVANCE DIRECTIVE DISCUSSION [facility] Start: 09-20-2021 DEPRESSION ASSESSMENT DEPRESSION ASS ESSMENT [facility] Start: 11-17-2017 End: 11-17-2017 Appointment Appointment [facility] Work Phone: Start: 06-08-2017 End: 06-08-2017 Appointment Appointment [facility] Work Phone: Start: 05-07-2017 End: 05-07-2017 Follow Up Appt 6 months Follow Up Appt 6 months [facility] Work Phone: Start: 05-07-2017 End: 05-07-2017 Follow Up BP Check Follow Up BP Check [facility] Work Phone: Start: 05-07-2017 End: 05-07-2017 MMM MMM [facility] Work Phone: Start: 05-07-2017 End: 05-07-2017 Follow Up Appt 6 months Follow Up Appt 6 months [facility] Work Phone: Start: 05-07-2017 End: 05-07-2017 Follow Up BP Check Follow Up BP Check [facility] Work Phone: Start: 05-07-2017 End: 05-07-2017 MMM MMM [facility] Work Phone: Start: 10-27-2016 End: 10-27-2016 Follow Up Appt 6 months Follow Up Appt 6 months [facility] Work Phone: Start: 10-27-2016 End: 10-27-2016 PFM PFM [facility] Work Phone: Start: 10-27-2016 End: 10-27-2016 Follow Up Appt 6 months Follow Up Appt 6 months [facility] Work Phone: Start: 10-27-2016 End: 10-27-2016 PFM PFM [facility] Work Phone: Start: 09-08-2016 LIPID SCREEN LIPID SCREEN [facility] Start: 04-27-2016 End: 10-15-2016 Follow Up Appt 6 months Follow Up Appt 6 months [facility] Work Phone: Start: 04-27-2016 End: 05-07-2017 Follow Up Appt Other Follow Up Appt Other [facility] Work Phone: Start: 04-27-2016 End: 10-15-2016 MMM MMM [facility] Work Phone: Start: 04-27-2016 End: 10-15-2016 Follow Up Appt 6 months Follow Up Appt 6 months [facility] Work Phone: Start: 04-27-2016 End: 05-07-2017 Follow Up Appt Other Follow Up Appt Other [facility] Work Phone: Start: 04-27-2016 End: 10-15-2016 MMM MMM [facility] Work Phone: Start: 12-24-2015 DIABETES SCREEN DIABETES SCREEN [facility] Start: 11-05-2015 End: 11-05-2015 Follow Up Appt 6 months Follow Up Appt 6 months [facility] Work Phone: Start: 11-05-2015 End: 11-05-2015 PFM PFM [facility] Work Phone: Start: 11-05-2015 End: 11-05-2015 Follow Up Appt 6 months Follow Up Appt 6 months [facility] Work Phone: Start: 11-05-2015 End: 11-05-2015 PFM PFM [facility] Work Phone: Start: 05-01-2015 End: 05-01-2015 Follow Up Appt 6 months Follow Up Appt 6 months [facility] Work Phone: Start: 05-01-2015 End: 05-01-2015 Follow Up Appt Other Follow Up Appt Other [facility] Work Phone: Start: 05-01-2015 End: 05-01-2015 MMM MMM [facility] Work Phone: Start: 05-01-2015 End: [...] w/least 12 lds w/i&r EKG (In office) [facility] Work Phone: Start: 09-06-2014 End: 09-06-2014 Follow Up Appt 6 months Follow Up Appt 6 months [facility] Work Phone: Start: 09-06-2014 End: 09-06-2014 Nuclear stress test -Lexiscan Nuclear stress test -Lexiscan [facility] Work Phone: Start: 09-06-2014 End: 09-06-2014 PFM PFM [facility] Work Phone: Start: 09-06-2014 End: 09-06-2014 Electrocardiogram, complete EKG (In office) [facility] Work Phone: Start: 09-06-2014 End: 09-06-2014 Follow Up Appt 6 months Follow Up Appt 6 months [facility] Work Phone: Start: 09-06-2014 End: 09-06-2014 Nuclear stress test -Lexiscan Nuclear stress test -Lexiscan [facility] Work Phone: Start: 09-06-2014 End: 09-06-2014 PFM PFM [facility] Work Phone: Start: 03-15-2014 End: 03-15-2014 Follow Up Appt 6 months Follow Up Appt 6 months [facility] Work Phone: Start: 03-15-2014 End: 05-01-2015 Follow Up Appt Other Follow Up Appt Other [facility] Work Phone: Start: 03-15-2014 End: 03-15-2014 MMM MMM [facility] Work Phone: Start: 03-15-2014 End: 03-15-2014 Follow Up Appt 6 months Follow Up Appt 6 months [facility] Work Phone: Start: 03-15-2014 End: 05-01-2015 Follow Up Appt Other Follow Up Appt Other [facility] Work Phone: Start: 03-15-2014 End: 03-15-2014 MMM MMM [facility] Work Phone: Start: 07-26-2013 End: 07-26-2013 Follow Up Appt 6 months Follow Up Appt 6 months [facility] Work Phone: Start: 07-26-2013 End: 07-26-2013 PFM PFM [facility] Work Phone: Start: 07-26-2013 End: 07-26-2013 Follow Up Appt 6 months Follow Up Appt 6 months [facility] Work Phone: Start: 07-26-2013 End: 07-26-2013 PFM PFM [facility] Work Phone: Start: 02-20-2013 BONE DENSITY BONE DENSITY [facility] Start: 02-20-2013 Pneumococcal Vaccine : 65+ Years (1 of 1 - PCV) Pneumococcal Vaccine: 65+ Years (1 of 1 - PCV) [facility] Start: 02-20-2013 PNEUMOCOCCAL: 65+ (1 - PCV) PNEUMOCOCCAL: 65+ (1 - PCV) [facility] Start: 01-16-2013 End: 01-16-2013 Follow Up Appt 6 months Follow Up Appt 6 months [facility] Work Phone: Start: 01-16-2013 End: 01-16-2013 MMM MMM [facility] Work Phone: Start: 01-16-2013 End: 01-16-2013 Follow Up Appt 6 months Follow Up Appt 6 months [facility] Work Phone: Start: 01-16-2013 End: 01-16-2013 MMM MMM [facility] Work Phone: Start: 10-31-2012 End: 11-01-2012 Echocardiography Echocardiogram (complete) [facility] Work Phone: Start: 10-31-2012 End: 11-01-2012 Echocardiography Echocardiogram (complete) [facility] Work Phone: Start: 10-19-2012 End: 10-19-2012 24 hour holter monitor 24 hour holter monitor [facility] Work Phone: Start: 10-19-2012 End: 10-19-2012 Ecg routine ecg w/least 12 lds w/i&r EKG (In office) [facility] Work Phone: Start: 10-19-2012 End: 10-19-2012 Follow Up Appt 3 months Follow Up Appt 3 months [facility] Work Phone: Start: 10-19-2012 End: 10-19-2012 Nuclear stress test -adenosine Nuclear stress test -adenosine [facility] Work Phone: Start: 10-19-2012 End: 10-19-2012 24 hour holter monitor 24 hour holter monitor [facility] Phone: Start: 10-19-2012 End: 10-19-2012 Electrocardiogram, complete EKG (In office) [facility] Work Phone: Start: 10-19-2012 End: 10-19-2012 Follow Up Appt 3 months Follow Up Appt 3 months [facility] Work Phone: Start: 10-19-2012 End: 10-19-2012 Nuclear stress test -adenosine Nuclear stress test -adenosine [facility] Work Phone: Start: 11-19-2011 Mammography MAMMOGRAM [facility] Start: 09-08-2010 Colonoscopy COLONOSCOPY [facility] Start: 09-08-2010 COLORECTAL CANCER SCREENING COLORECTAL CANCER SCREENING [facility] Start: 02-20-1998 SHINGRIX VACCINE (1 of 2) REGAN GRIX VACCINE (1 of 2) [facility] Start: 02-20-1993 COLOGUARD (FIT-DNA) COLOGUARD (FIT-D NA) [facility] Start: 02-20-[address] [facility] Start: 02-20-1993 FECAL OCCULT BLOOD FECAL OCCULT BLOO D [facility] Start: 02-20-1993 SIGMOIDOSCOPY SIGMOIDOSCOPY [facility] Start: 02-20-1967 Urine microalbumin profile DTAP,TDAP ,TD (1 - Tdap) [facility] Start: 02-20-1966 HEPATITIS C SCREENING HEPATITIS C [facility] Brain natriuretic pe ptide measurement [facility] Work Phone: INR in Blood by Coagulation assay [facility] Work Phone: Partial thromboplast in time, activated [facility] Work Phone: Patient Education [facility] Work Phone: Patient referral [facility] Work Phone: Prothrombin time [facility] Work Phone: [facility] Immunizations Immunization Date Immunization Notes Care Provider [facility] 08-13-2023 Pfizer Covid-19 (Comirnaty) Dr. Desmond Riojas Work Phone: [facility] 08-13-2023 RSV Adult Recombinan t (Arexvy) Dr. Desmond Riojas Work Phone: [facility] 06-02-2023 influenza, injectabl e, quadrivalent, preservative free Dr. Desmond Riojas Work Phone: [facility] 06-02-2023 influenza virus vaccine, unspecified formulation Preston Molina MD Work Phone: [facility] 01-16-2022 Covid (Moderna) Dr. Desmond Riojas Work Phone: [facility] 05-21-2021 influenza, injectabl e, quadrivalent, preservative free [facility] 05-21-2021 influenza, seasonal, injectable Dr. Desmond Riojas Work Phone: [facility] 01-31-2021 tetanus toxoid, redu harley diphtheria toxoid, and acellular pertussis vaccine, adsorbed Dr. Desmond Riojas Work Phone: [facility] 12-11-2020 Covid (Moderna) Dr. Desmond Riojas Work Phone: [facility] 11-13-2020 Covid (Moderna) Dr. Desmond Riojas Work Phone: [facility] 05-23-2020 Influenza High-Dose Quadrivalent Dr. Desmond Riojas Work Phone: [facility] 05-18-2019 influenza, injectabl e, quadrivalent, preservative free Dr. Desmond Riojas Work Phone: [facility] 05-17-[address] Desmond Riojas Work Phone: [facility] 06-20-[address] Desmond Riojas Work Phone: [facility] Work Phone: 09-20-[address] Desmond Riojas Work Phone: [facility] Work Phone: 09-20-2012 pneumococcal vaccine , unspecified formulation Dr. Desmond Riojas Work Phone: [facility] Payers Date Payer Category Payer Self-pay [id number] 2022 Private Health Insurance [id number] 2018 Unknown [facility] MEDIC[facility] SUPPLEMENT [id number] 2018-Present [phone] [id number] [place] [address] Indemnity [id number] 2013 Medicare [id number] 2013 Unknown [id number] 2013 Unknown [id number] 2013 Unknown [id number] 2013 Medicare [id number] 1948 Unknown [id number] [id number] .2.9 1948 Unknown [id number] 2.840.1.096923.3.579 .2.1258 1948 Unknown [id number] 2.16840.1.579397.3.579 .2.1258 1948 Unknown [id number] 2.16840.1.812137.3.579 .2.1258 1948 Unknown [id number] 2.16840.1.135726.3.579 .2.1258 1948 Unknown [id number] 2.16840.1.730778.3.579 .2.1258 1948 Unknown [id number] 2.16.840.1.049418.3.579 .2.1258 1948 Unknown [id number] 2.16.840.1.021736.3.579 .2.1259 1948 Unknown [id number] 2.16840.1.959558.3.579 .2.9 1948 Unknown [id number] 2.16.840.1.810146.3.579 .2.1259 Unknown [id number] Unknown [id number] 2.16.840.1.008962.3.579 .2.462 Unknown [id number] 2.16.840.1.715445.3.579 .2.462 Unknown [id number] 2.16.840.1.652764.3.579 .2.462 Unknown [id number] 2.16.840.1.964876.3.579 .2.462 Unknown [id number] 2.16.840.1.368825.3.579 .2.462 Unknown [id number] 2.16.840.1.448164.3.579 .2.462 Unknown [id number] 2.16.840.1.900636.3.579 .2.462 Unknown [id number] 2.16.840.1.946503.3.579 .2.462 Unknown [id number] 2.16.840.1.755909.3.579 .2.462 Unknown [id number] 2.16.840.1.353266.3.579 .2.462 Unknown [id number] 2.16.840.1.300268.3.579 .2.462 Unknown [id number] 2.16.840.1.700147.3.579 .2.462 Unknown [id number] 2.16.840.1.937724.3.579 .2.462 Unknown [id number] 2.16.840.1.955166.3.579 .2.462 Unknown [id number] 2.16840.1.277664.3.579 .2.462 Social History Date Type Detail Facility Start: 11-24-2021 End: 12-17-2023 Tobacco smoking status NHIS Unknown if ever smoked [facility] Start: 09-16-2020 None [facility] Start: 09-16-2020 Spouse/ Signif icant Other [facility] Start: 01-31-2021 Non-smoker [facility] Start: 1950 Sex Assigned At Female [facility] Start: 03-15-2012 End: 06-06-2025 Tobacco smoking status NHIS Never smoked tobacco [facility] Start: 03-15-2012 End: 03-22-2023 Tobacco use and exposure Smokeless tobacco non-user [facility] Start: 06-16-2022 Alcohol intake 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-dr 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 alcohol (finding) [facility] Start: 1950 Sex Assigned At Not on file [facility] Start: 04-05-2024 End: 07-31-2024 Alcoholic beverage intake Lifetime non-drinker (finding) [facility] Start: 04-05-2024 End: 07-31-2024 History of Social function [facility] Start: 04-05-2024 End: 07-31-2024 Tobacco use panel [facility] Start: 03-22-2023 Alcohol Comment Caffeine: 1-2 cups/day tea [facility] Start: 12-14-2024 End: 01-01-2025 Sex Female (finding) [facility] NEGATED: Highlighted row Not [facility] Medical Equipment Procedure Code Equipment Code Equipment Origin al Text Equipment Identifier Dates Primary uncemented hemiarthroplasty of hip KIT,FEMORAL BONE CEMENT PREP FDA Start: 05-30-2022 Primary uncemented hemiarthroplasty of hip ([id number]) Uncoated hip femur prosthesis, modular [id number] FDA Start: 05-30-2022 Primary uncemented hemiarthroplasty of hip ([id number]) Uncoated hip femur prosthesis, one-piece ()[id number] FDA Start: 05-30-2022 Primary uncemented hemiarthroplasty of hip ([id number]) Uncoated hip femur prosthesis, one-piece ()[id number] FDA Start: 05-30-2022 Primary uncemented hemiarthroplasty of hip Orthopaedic cement, non-antimicrobial ()[id number] FDA Start: 05-30-2022 Primary uncemented hemiarthroplasty of hip KIT,FEMORAL BONE CEMENT PREP FDA Start: 05-30-2022 Primary uncemented hemiarthroplasty of hip KIT,FEMORAL BONE CEMENT PREP FDA Start: 05-30-2022 Primary uncemented hemiarthroplasty of hip KIT,FEMORAL BONE CEMENT PREP FDA Start: 05-30-2022 Primary uncemented hemiarthroplasty of hip KIT,FEMORAL BONE CEMENT PREP FDA Start: 05-30-2022 Primary uncemented hemiarthroplasty of hip KIT,FEMORAL BONE CEMENT PREP FDA Start: 05-30-2022 Primary uncemented hemiarthroplasty of hip KIT,FEMORAL BONE CEMENT PREP FDA Start: 05-30-2022 Primary uncemented hemiarthroplasty of hip KIT,FEMORAL BONE CEMENT PREP FDA Start: 05-30-2022 Primary uncemented hemiarthroplasty of hip KIT,FEMORAL BONE CEMENT PREP FDA Start: 05-30-2022 Primary uncemented hemiarthroplasty of hip KIT,FEMORAL BONE CEMENT PREP FDA Start: 05-30-2022 Primary uncemented hemiarthroplasty of hip KIT,FEMORAL BONE CEMENT PREP FDA Start: 05-30-2022 Primary uncemented hemiarthroplasty of hip KIT,FEMORAL BONE CEMENT PREP FDA Start: 05-30-2022 Primary uncemented hemiarthroplasty of hip KIT,FEMORAL BONE CEMENT PREP FDA Start: 05-30-2022 Primary uncemented hemiarthroplasty of hip KIT,FEMORAL BONE CEMENT PREP FDA Start: 05-30-2022 Primary uncemented hemiarthroplasty of hip KIT,FEMORAL BONE CEMENT PREP FDA Start: 05-30-2022 Primary uncemented hemiarthroplasty of hip KIT,FEMORAL BONE CEMENT PREP FDA Start: 05-30-2022 Primary uncemented hemiarthroplasty of hip KIT,FEMORAL BONE CEMENT PREP FDA Start: 05-30-2022 Primary uncemented hemiarthroplasty of hip KIT,FEMORAL BONE CEMENT PREP FDA Start: 05-30-2022 Primary uncemented hemiarthroplasty of hip KIT,FEMORAL BONE CEMENT PREP FDA Start: 05-30-2022 Primary uncemented hemiarthroplasty of hip KIT,FEMORAL BONE CEMENT PREP FDA Start: 05-30-2022 Primary uncemented hemiarthroplasty of hip KIT,FEMORAL BONE CEMENT PREP FDA Start: 05-30-2022 Primary uncemented hemiarthroplasty of hip KIT,FEMORAL BONE CEMENT PREP FDA Start: 05-30-2022 Primary uncemented hemiarthroplasty of hip KIT,FEMORAL BONE CEMENT PREP FDA Start: 05-30-2022 Primary uncemented hemiarthroplasty of hip KIT,FEMORAL BONE CEMENT PREP FDA Start: 05-30-2022 Primary uncemented hemiarthroplasty of hip KIT,FEMORAL BONE CEMENT PREP FDA Start: 05-30-2022 Goals Date Patient Goal Desired Activity /State Functional Status Date Assessment Result Facility 12-20-2023 Functional status Ambulates [facility] Work Phone: 09-14-2022 Functional status Bedrest [facility] Work Phone: 09-13-2022 Functional status Rolling Walker [facility] Work Phone: 06-13-2022 Functional status Activity Ability Indepe ndent [facility] Work Phone: 06-11-2022 Functional status Ambulates [facility] Work Phone: 06-01-2022 Functional status Ambulates [facility] Work Phone: Mental Status Date Assessment Result Facility 02-07-2025 Cognitive function Voice/Name [facility] Work Phone: 12-20-2023 Cognitive function Voice/Name [facility] Work Phone: 09-14-2022 Cognitive function Voice/Name [facility] Work Phone: 09-12-2022 Cognitive function Voice/Name [facility] Work Phone: 06-13-2022 Cognitive function Voice/Name [facility] Work Phone: 06-01-2022 Cognitive function Voice/Name [facility] Work Phone: Clinical Notes 06-16-2022 to 2025 Note Date & Type Note Facility 2025 Evaluation note Diagnosis Onset Date Resolution Nausea acute 2025 9:44am Constipation acute May 312024 9:44am Nausea acute May 9:44am [facility] Work Phone: 1(788) 646-490805-21-2025 Consult note [facility] Medical Records Department [address] [place] [address] Anesthesia Postop Eval I 02/07/25921 MR#: [id number] Acct: [id number] Name: VIOLA BENNETT Rep #:[id number] : 1950 74 From: Andrei Rausch PCP: Dr. eDsmond Riojas MD Status:REG S DC Y Race: C Location: [place] [address] Anesthesia: Postop Eval I Current Vital Signs Temperature: 97.4 F Pulse Rate: 78 Blood Pressure: 75/54 Respiratory Rate: 14 Pulse Ox: 98 Oxygen Delivery Method: Room Air Assessment Airway patent: Yes Spontaneous unlabored respirations: Yes Mental status: Awake and Calm nausea: No Vomiting: No Anesthesia Complication: No Fluid Hydration Crystalloid volume administer (ml): 300 Total IV fluid infused: 300 Progress Note Anesthesia document: Postop Eval 1 completed: Yes 02/07/25921 > Date _ Andrei Garrett Signature: Date CC: ~ Signed [facility]05-21-2025 Consult note [facility] Medical Records Department [address] [place] [address] Anesthesia Postop Eval II 02/07/25 0939 MR#: [id number] Acct: [id number] Name: VIOLA BENNETT Rep #:[id number] : 1950 74 From: Sharan Verduzco MD PCP: Dr. Desmond Riojas MD Status:REG S DC Y Race: C Location: [place] [address] Anesthesia Postop Eval I Sum Postop Eval Completion status Anesthesia document: Postop Eval 1 completed: Yes Anesthesia Postop Eval I Summary Anesthesia Postop Eval I Summary: Anesthesia Postop Eval I: Assessment Summary Airway patent Yes 02/07/25 09:22 [email or web address] Spontaneous unlabored Yes 02/07/25 09:22 [email or web address] respirations Mental status Awake,Calm 02/07/25 09:22 [email or web address] nausea No 02/07/25 09:22 [email or web address] Vomiting No 02/07/25 09:22 [email or web address] Anesthesia Postop Eval I: Fluid Summary Crystalloid volume administer 300 02/07/25 09:22 [email or web address] (ml) Colloids volume administered ( ml) Blood Product volume administered (ml) Total IV fluid infused 300 02/07/25 09:22 [email or web address] Anesthesia Postop Eval I: Summary Notes Anesthesia Complication No 02/07/25 09:22 [email or web address] Anesthesia Complication Comment: Post-operative progress note Anesthesia: Postop Eval II Evaluation Mental status: Awake Pain Level: 0 nausea: No Vomiting: No 02/07/25 0939 > Date _ Shraan Verduzco MD Cosigner Signature: Date CC: ~ Signed [facility]05-21-2025 Consult note Author Sharan hadley [facility] Note Date/Time February 07, 2025 7:41a [facility] Medical Records Department [address] [place] [address] Pre-Anesthesia Evaluation 02/07/25 0740 MR#: [id number] Acct: [id number] Name: LUISA BENNETTMark Payton Rep #:[id number] : 1950 74 From: Sharan Verduzco MD PCP: Dr. Desmond Riojas MD Status:REG S DC Y Race: C Location: [place] [address] ASA Classification* ASA Classification ASA Classification: 3 Assessment & Plan Anesthesia* Anesthesia Assessment Anesthesia Assessment: Discussed sedation and/or anesthesia options, risks, benefits, and alternatives with patient/parents/legal guardian/POA. Questions invited. The patient/parents/legal guardian/POA seems to understand and agrees to proceedwith anesthesia plan. Reviewed the physical assessment, medical history, allergy history and patient home medications list prior to surgery/procedure/anesthetic and documented any changes. Performed airway and anesthesia risk assessments. Anesthesia Type Anesthesia Type: MAC Anesthesia Focused Assessment* Airway Assessment Mouth opens: >3 cm Mallampati Score: II Focused Labs Anesthesia Preop lab: CBC WBC 4.2 K/mm3 (4.4-11.0) L 12/05/24 10:47 12/05/24 RBC 4.36 M/mm3 (4.2-5.4) 12/05/24 10:47 12/05/24 Hgb 13.8 g/dL (12.0-15.0) 12/05/24 10:47 12/05/24 Hct 40.2 % (37-47) 12/05/24 10:47 12/05/24 Plt Count 186 K/mm3 (150-450) 12/05/24 10:47 12/05/24 CHEMISTRY Potassium 4.1 mmol/L (3.3-5.1) 12/05/24 10:47 12/05/24 Sodium 140 mmol/L (133-145) 12/05/24 10:47 12/05/24 Magnesium 2.2 mg/dL (1.6-2.6) 04/25/24 11:39 04/25/24 Phosphorus 2.9 mg/dL (2.5-4.9) 04/25/24 11:39 04/25/24 BUN 18 mg/dL (4-19) 12/05/24 10:47 12/05/24 Creatinine 0.80 mg/dL (0.70-1.20) 12/05/24 10:47 12/05/24 Glucose 102 mg/dL (70-99) H 12/05/24 10:47 12/05/24 POC Glucose 88 mg/dL (74-106) 09/12/22 19:21 09/12/22 TSH 1.290 uIU/mL (0.300-4.200) 12/05/24 10:47 11/18 05/14 COAG PT 17.0 SECONDS (11.7-14.9) H 04/22/24 23:50 08/0 12/11 Pre-Assessment Diagnosis/Proposed Procedure Planned Operative Procedure(s): EGD Anesthesia History Anesthesia History - rheumatologist: Anesthesia History - rheumatologist Hx Hospitalization No 02/06/25 09:44 Any Problems With Anesthesia No 02/06/25 09:44 Cholinesterase deficiency No 02/06/25 09:44 You/Your Family Experience No 02/06/25 09:44 fever (hyperthermia) with Relationship Recent Exposure to Contagious No 06/30/24 06:08 Disease Does patient have nerve No 02/06/25 09:44 stimulator Patient instructed to have device shut off --Does patient have Pacemaker or ICD? When Was Last Pacemaker Check QUESTION #4 FULL TEXT: You/Your Family Experience fever (hyperthermia) with Anesthesia Last Oral Intake Last Oral intake: Last Oral Intake NPO since Meds taken in AM with sips of water? 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 - rheumatologist: PONV - rheumatologist Female Yes 02/06/25 09:44 HX of Motion Sickness No 02/06/25 09:44 HX of N/V After Surgery No 02/06/25 09:44 Non-Smoker Yes 02/06/25 09:44 Duration of Surgery greater No 02/06/25 09:44 than 60 minutes Number of Risk Factors 2 02/06/25 09:44 PONV Score Moderate Risk 02/06/25 09:44 Height & Weight Height & Weight: Anesthesia: Height & Weight Height 5 ft 2 in 01/18/25 08:09 Respiratory Assessment Respiratory Assessment - rheumatologist: Respiratory Tract Infection Hx - rheumatologist Hx Respiratory Tract Infection No 02/06/25 09:44 STOP Sleep Apnea STOP Sleep Apnea - rheumatologist: STOP Sleep Apnea - rheumatologist Hx Hypertension Yes 02/06/25 09:44 Hx Sleep Apnea Yes 02/06/25 09:44 CPAP Yes: HASN'T BEEN USING 02/06/25 09:44 LATELY BIPAP No 02/06/25 09:44 Do you snore loudly (louder than talking or can be heard Do you often feel tired/ fatigued/ sleepy during daytime? Has anyone observed you stop breathing during sleep? STOP Results Positive 02/06/25 09:44 QUESTION #5 FULL TEXT : Do you snore loudly (louder than talking or can be heard through closed doors)? Tobacco Use History Tobacco Use History - rheumatologist: Tobacco Use History - rheumatologist Tobacco Use Non-smoker 09/14/22 10:00 Smoking Status Never smoker 02/06/25 09:44 Hx Tobacco Use No 02/06/25 09:44 Years Smoking Packs Smoked per Day Smoking Cessation Date was within the last 15 years Hx Smoking Cessation Date Hx Smoking Cessation No 02/06/25 09:44 Counseling Hematologic Medial History Hematologic Hx - rheumatologist: Hematologic Medical Hx - roof slater Hx of Blood Transfusion No 02/06/25 09:44 Hx of Transfusion in last 3 No 02/06/25 09:44 Months Date of Last Transfusion (if within last 3 months) Ever experience any problems No 02/06/25 09:44 with transfusion(s)? Specify any problems Hx of Preganancy in last 3 No 02/06/25 09:44 Months Nurse Filling Out Transfusion VLEHMAN 02/06/25 09:44 & Questions: Date: 02/06/25 02/06/25 09:44 Time: 09:52 02/06/25 09:44 Patient unable to answer at this time (ie. confused, unrespo /Reproduction History /Reproductive History - rheumatologist: /Reproductive Hx- rheumatologist Hx Now No 02/06/25 09:44 Gestational Age (in weeks): EDC: Hx Hx Para Hx Section SAB No 06/28/24 09:43 Active Medications Active Medications: Current Medications Generic Name Dose Route Start Last Admin Trade Name Freq PRN Reason Stop Dose Admin Lactated Ringer's 1,000 mls @ 15 mls/hr 02/07/25 07:30 IV .Q48H BARRETT PFSH Medical History Ambulates with cane Anemia Hoarseness Other specified disorders of bone density and structure, unspecified site Other primary thrombophilia Arthropathy, unspecified Acute embolism and thrombosis of other specified deep vein of unspecified lower extremity Anxiety disorder, unspecified Other hyperlipidemia Vitamin D deficiency Encounter for other procedures for purposes other than remedying health state Dysphonia Metabolic syndrome Fracture of unspecified part of neck of left femur, initial encounter for closedfracture Unspecified multiple injuries, initial encounter Thyroid nodule Sacroiliitis BMI 32.0-32.9,adult Melena Loss of hearing Low iron GERD (gastroesophageal reflux disease) Sleep apnea Hypertension Subcutaneous nodule Parkinson disease Generalized weakness Hypokalemia Factor V Leiden mutation Generalized weakness Chronic anticoagulation History of atrial fibrillation History of Parkinson's disease Fall Anxiety Concussion Essential hypertension Fall Presbycusis of both ears Osteopenia Malnourished Anemia Anterolisthesis Segmental and somatic dysfunction of thoracic region Vasovagal near syncope Insomnia Allergic rhinitis Migraine Hyperlipidemia Gastroesophageal reflux disease Hypertension Deep vein thrombosis Obstructive sleep apnea Depression Osteoarthritis Factor 5 Leiden mutation, heterozygous Open wound of left lower leg with complication Fall as cause of accidental injury at home as place of occurrence Wears hearing aid Wears glasses Depression Anxiety Open wound Walker as ambulation aid DVT (deep venous thrombosis) High cholesterol Injury of back Injury of head and neck Migraine headache Syncope Gastric reflux Non-smoker CPAP (continuous positive airway pressure) dependence History of pain when walking History of edema Hx of echocardiogram History of stress test Cardiology follow-up encounter History of atrial fibrillation Cellulitis of left lower leg Skin necrosis 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 lower leg with complication Hematoma of left lower extremity Vision problems Cataract Back pain Segmental and somatic dysfunction of pelvic region Segmental and somatic dysfunction of lumbar region Scoliosis of lumbar spine CKD (chronic kidney disease) History of DVT (deep vein thrombosis) VALENTIN (obstructive sleep apnea) Paroxysmal atrial fibrillation Long-term use of high-risk medication Family history of coronary artery disease Family history of CVA 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 Traumatic ulcer of left lower extremity Atrial fibrillation CKD (chronic kidney disease) Obesity, Class III, BMI 40-49.9 (morbid obesity) Hypertension Head injury without concussion or intracranial hemorrhage Fall due to ice or snow Home Medications ?Medication ?Instructions ?Recorded ?Last Taken ?Type galcanezumab-gnlm 120 mg/mL 120 mg subcut QMONTH Migra jacque 10/25/19 05/23/22 08:00 History subcutaneous syringe (Emgality) multivitamin 1 tab PO DAILY Supplement 05/27/22 History divalproex 500 mg tablet,extended 500 mg PO QHS headac he 01/31/21 05/27/22 History release 24 hr (Depakote ER) ergocalciferol (vitamin D2) 1,250 1,250 mcg PO DAILY s upplement 11/24/21 05/27/22 07:00 History mcg (50,000 unit) capsule apixaban 5 mg tablet 5 mg PO BID Blood thinner #6 0 tabs 06/12/22 02/04/25 Rx verapamil 120 mg 24 hr 240 mg PO DAILY 04/22/24 Unk nown History capsule,extended release citalopram 20 mg tablet 30 mg PO DAILY 07/15/24 Unkn own History omeprazole 40 mg capsule,delayed 40 mg PO QDAY #90 cap s 12/12/24 Unknown Rx release polysaccharide iron complex 150 mg 150 mg PO QDAY 12/21 Unknown History iron capsule dnwqvrr-csiegfz-lickrmaywh capsule 1 cap PO DAILY 10/14 Unknown History (Guarana capsule) ondansetron HCl 4 mg tablet 4 mg PO Q8H PRN nausea and vomiting 01/18/25 Unknown History potassium chloride 20 mEq 20 meq PO DAILY #90 tabs 10/14 Unknown Rx tablet,extended release(part/cryst) rimegepant 75 mg disintegrating 75 mg PO ONCE PRN migr laine headache 01/18/25 Unknown History tablet (Nurtec ODT) Allergy/AdvReac Type Severity Reaction Status Date / Time cefdinir Allergy Hives Verified 01/18/25 09:59 diphenhydramine HCl (From Allergy Hives Verified 01/18/25 09:59 Benadryl) Sulfa (Sulfonamide Allergy Hives Verified 01/18/25 09:59 Antibiotics) Family History Brother CAD (coronary artery disease) Mother CVA (cerebral vascular accident) CAD (coronary artery disease) Son Hypertension Daughter Hypertension Other Arthritis Cancer Diabetes Family history of CVA Family history of coronary artery disease Family history of hypertension Heart disease High cholesterol Kidney disease Thyroid disorder Surgical History History of left hip hemiarthroplasty History of incision and drainage Hx of cataract extraction History of total hysterectomy History of bilateral knee replacement History of cholecystectomy Social History household members: spouse housing: house number of children: 2 current occupational status: retired current occupational exposures/hazards: No pets and animals: No Smoking Status: Never smoker alcohol intake: never substance use type: does not use caffeine: Yes Type: tea what type of physical activity do you participate in: none seatbelt use: always do you feel safe at home: Yes additional social history: Does Not Take Aspirin Does Not Take Ibuprofen Review of Systems (Anesthesia) ROS Narrative System reviewed and no additional complaints, except as documented. 02/07/25 0741 <Electronically signed by Sharan Verduzco MD > Date _ Sharan Verduzco MD Cosigner Signature: Date CC: ~ Signed [facility] Work Phone: 1(716) 449-242405-21-2025 Evaluation note* Diagnosis Onset Date Resolution Status Admit Date Common bile duct dilation acute February 07, 2025 7:19am Heme + stool acute February 07 7:19am Nausea acute February 07, 2025 7:19am Iron deficiency anemia due t o chronic blood loss chronic February 07 7:19am Nausea acute 2025 9:44am [facility] Work Phone: 1(763) 106-906305-21-2025 Procedure note [facility] Medical Records Department [address] [place] [id number] EGD Report MR#: [id number] Acct: [id number] Name: VIOLA BENNETT Rep #:[id number] : 1950 74 From: Alexander Bailey DO PCP: Dr. Desmond Riojas MD Status:REG S DC Patient Name: Viola Bennett Procedure Date: 02/07/2025 8:52 AM Date of : 1950 Age: 74 Procedure: Upper GI endoscopy Indications: Epigastric abdominal pain, Functional Dyspepsia Providers: Alexander Bailey DO Referring MD: Desmond Riojas MD Medicines: Monitored Anesthesia Care Patient Profile: This is a 74 year old female. Refer to note in patient chart for documentation of history and physical. Patient has symptoms of chronic epigastric abdominal pain and chronic nausea. Complications: No immediate complications. Procedure: Pre-Anesthesia Assessment: - Prior to the procedure, a History and Physical was performed, and patient medications and allergies were reviewed. The patient is competent. The risks and benefits of the procedure and the sedation options and risks were discussed with the patient. All questions were answered and informed consent was obtained. Patient identification and proposed procedure were verified by the physician in the pre-procedure area. Mental Status Examination: alert and oriented. Airway Examination: normal oropharyngeal airway and neck mobility. Respiratory Examination: clear to auscultation. CV Examination: normal. Prophylactic Antibiotics: The patient does not require prophylactic antibiotics. Prior Anticoagulants: The patient has taken no anticoagulant or antiplatelet agents except for NSAID medication. ASA Grade Assessment: II - A patient with mild systemic disease. After reviewing the risks and benefits, the patient was deemed in satisfactory condition to undergo the procedure. The anesthesia plan was to use monitored anesthesia care (MAC). Immediately prior to administration of medications, the patient was re-assessed for adequacy to receive sedatives. The heart rate, respiratory rate, oxygen saturations, blood pressure, adequacy of pulmonary ventilation, and response to care were monitored throughout the procedure. The physical status of the patient was re-assessed after the procedure. After obtaining informed consent, the endoscope was passed under direct vision. Throughout the procedure, the patient's blood pressure, pulse, and oxygen saturations were monitored continuously. The gastroscope was introduced through the mouth, and advanced to the third part of the duodenum. Small bowel enteroscopy was deemed necessary. The upper GI endoscopy was accomplished without difficulty. The patient tolerated the procedure well. Scope In: 9:08:02 AM Scope Out: 9:12:12 AM Total Procedure Duration Time 0 hours 4 minutes 10 seconds Findings: The examined esophagus was normal. Multiple 5 mm hyperplastic polyps with no bleeding and no stigmata of recent bleeding were found in the entire examined stomach. Patchy mildly erythematous mucosa without bleeding was found in the gastric body. Biopsies were taken with a cold forceps for histology. Verification of patient identification for the specimen was done. Estimated blood loss was minimal. Biopsies were taken with a cold forceps for Helicobacter pylori testing. Verification of patient identification for the specimen was done. Estimated blood loss was minimal. Patchy mildly erythematous mucosa without active bleeding and with no stigmata of bleeding was found in the duodenal bulb and in the second portion of the duodenum. Biopsies were taken with a cold forceps for histology. Verification of patient identification for the specimen was done. Estimated blood loss was minimal. Impression: - Normal esophagus. - Multiple gastric polyps. - Erythematous mucosa in the gastric body. Biopsied. - Erythematous duodenopathy. Biopsied. Recommendation: - Discharge patient to home. - Resume previous diet. - Continue present medications. - Await pathology results. Procedure Code(s): --- Professional --- 82268, Small intestinal endoscopy, enteroscopy beyond second portion of duodenum, not including ileum; with biopsy, single or multiple CPT copyright 2021 [employer]. All rights reserved. The codes documented in this report are preliminary and upon duct layer supervisor review may be revised to meet current compliance requirements. Alexander Bailey DO 02/07/2025 9:16:25 AM This report has been signed electronically. Number of Addenda: 0 Note Initiated On: 02/07/2025 8:52 AM 02/07/25 0916 Date _ Alexander Bailey DO Cosigner Signature: Date (if indicated) CC: Dr. Desmond Riojas MD; Alexander Bailey DO ~ Date Dictated: 02/07/25 0852 Date Transcribed: Data Base Design Analyst: RF Signed [facility]05-21-2025 Procedure note [facility] Medical Records Department [address] [place] [address] Operative Report - CC Letter MR#: [id number] Acct: [id number] Name: VIOLA BENNETT Rep #:[id number] : 1950 74 From: Alexander Bailey DO PCP: Dr. Desmond Riojas MD Status:REG S DC 02/07/2025 Desmond Riojas MD [address] [place] [address] Re : Upper GI endoscopy procedure for Viola Bennett Dear Dr. Riojas This procedure was performed on Friday, February 07, 2025. My impressions and recommendations are as follows: Impressions : - Normal esophagus. - Multiple gastric polyps. - Erythematous mucosa in the gastric body. Biopsied. - Erythematous duodenopathy. Biopsied. Recommendations : - Discharge patient to home. - Resume previous diet. - Continue present medications. - Await pathology results. My findings are described in the full procedure note, which is enclosed. If I can be of further assistance, please feel free to contact me at . Sincerely, Alexander Bailey DO 02/07/2025 9:16:25 AM This report has been signed electronically. 02/07/25915 Date _ Alexander Bailey DO Cosigner Signature: Date (if indicated) CC: Dr. Desmond Riojas MD; Alexander Bailey DO ~ Date Dictated: 02/07/2552 Date Transcribed: Data Base Design Analyst: RF Signed [facility] [facility] History and physical note [facility] Medical Records Department [address] [place] [address] History & Physical Exam 02/07/25 0820 MR#: [id number] Acct: [id number] Name: VIOLA BENNETT Rep #:[id number] : 1950 74 From: Alexander Bailey DO PCP: Dr. Desmond Riojas MD Status:REG S DC Location: [place] [address] HPI - General General Date of Admission: 02/07/25 Date of Service: 02/07/25 Chief Complaint: Nausea HPI Narrative VIOLA BENNETT, is a 74 F who presents with the Chief Complaint: nausea. BGI established 9.24 after incidental findings of CBD dilation s/p cholecystectomy. Also with constipation alternating with diarrhea. Hx of Parkinson on Carbipoda-levodopa. CT abdomen pelvis; 04.19.24 Status post cholecystectomy. Intrahepatic biliary ductal dilatation as well as the common bile duct. Correlation with ERCP is recommended. Sigmoid diverticulosis. Moderate sized ventral hernia containing fat. MRCP .02.10; Stable common bile duct dilatation without evidence of an obstructing stone or mass. Last OV 08.25.24 Doing well with constipation. Controlled with mineral oil in theev. Was taken off Carbidopa-levodopa. Struggling now with new daily migraines and nausea. Taking PPI and Zofran PRN. PPI increased to twice a day. Increased zofran to 8 mg. OV 3..; Pt continues to have nausea daily but no vomiting. She is taking zofran just one time per week because she is nervous she will run out. She continues to have migraines daily which may be the cause of her nausea. She has an upcoming appointment with neurology in December 2024. She continues with Omeprazole 40 mg daily and zofran PRN. Her constipation is well controlled with mineral oil. [facility] Medical History Ambulates with cane Anemia Hoarseness Other specified disorders of bone density and structure, unspecified site Other primary thrombophilia Arthropathy, unspecified Acute embolism and thrombosis of other specified deep vein of unspecified lower extremity Anxiety disorder, unspecified Other hyperlipidemia Vitamin D deficiency Encounter for other procedures for purposes other than remedying health state Dysphonia Metabolic syndrome Fracture of unspecified part of neck of left femur, initial encounter for closedfracture Unspecified multiple injuries, initial encounter Thyroid nodule Sacroiliitis BMI 32.0-32.9,adult Melena Loss of hearing Low iron GERD (gastroesophageal reflux disease) Sleep apnea Hypertension Subcutaneous nodule Parkinson disease Generalized weakness Hypokalemia Factor V Leiden mutation Generalized weakness Chronic anticoagulation History of atrial fibrillation History of Parkinson's disease Fall Anxiety Concussion Essential hypertension Fall Presbycusis of both ears Osteopenia Malnourished Anemia Anterolisthesis Segmental and somatic dysfunction of thoracic region Vasovagal near syncope Insomnia Allergic rhinitis Migraine Hyperlipidemia Gastroesophageal reflux disease Hypertension Deep vein thrombosis Obstructive sleep apnea Depression Osteoarthritis Factor 5 Leiden mutation, heterozygous Open wound of left lower leg with complication Fall as cause of accidental injury at home as place of occurrence Wears hearing aid Wears glasses Depression Anxiety Open wound Walker as ambulation aid DVT (deep venous thrombosis) High cholesterol Injury of back Injury of head and neck Migraine headache Syncope Gastric reflux Non-smoker CPAP (continuous positive airway pressure) dependence History of pain when walking History of edema Hx of echocardiogram History of stress test Cardiology follow-up encounter History of atrial fibrillation Cellulitis of left lower leg Skin necrosis 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 lower leg with complication Hematoma of left lower extremity Vision problems Cataract Back pain Segmental and somatic dysfunction of pelvic region Segmental and somatic dysfunction of lumbar region Scoliosis of lumbar spine CKD (chronic kidney disease) History of DVT (deep vein thrombosis) VALENTIN (obstructive sleep apnea) Paroxysmal atrial fibrillation Long-term use of high-risk medication Family history of coronary artery disease Family history of CVA 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 Traumatic ulcer of left lower extremity Atrial fibrillation CKD (chronic kidney disease) Obesity, Class III, BMI 40-49.9 (morbid obesity) Hypertension Head injury without concussion or intracranial hemorrhage Fall due to ice or snow Home Medications ?Medication ?Instructions ?Recorded ?Last Taken ?Type galcanezumab-gnlm 120 mg/mL 120 mg subcut QMONTH Migra jacque 10/25/19 05/23/22 08:00 History subcutaneous syringe (Emgality) multivitamin 1 tab PO DAILY Supplement 05/27/22 History divalproex 500 mg tablet,extended 500 mg PO QHS headac he 01/31/21 05/27/22 History release 24 hr (Depakote ER) ergocalciferol (vitamin D2) 1,250 1,250 mcg PO DAILY s upplement 11/24/21 05/27/22 07:00 History mcg (50,000 unit) capsule apixaban 5 mg tablet 5 mg PO BID Blood thinner #6 0 tabs 06/12/22 02/04/25 Rx verapamil 120 mg 24 hr 240 mg PO DAILY 04/22/24 History capsule,extended release citalopram 20 mg tablet 30 mg PO DAILY 07/15/24 Unkn own History omeprazole 40 mg capsule,delayed 40 mg PO QDAY #90 cap s 12/12/24 02/07/25 Rx release polysaccharide iron complex 150 mg 150 mg PO QDAY 12/21 Unknown History iron capsule mpiqjst-qeipgrw-olbwnusxwi capsule 1 cap PO DAILY 10/14 Unknown History (Guarana capsule) ondansetron HCl 4 mg tablet 4 mg PO Q8H PRN nausea and vomiting 01/18/25 Unknown History potassium chloride 20 mEq 20 meq PO DAILY #90 tabs 10/14 Unknown Rx tablet,extended release(part/cryst) rimegepant 75 mg disintegrating 75 mg PO ONCE PRN migr laine headache 01/18/25 Unknown History tablet (Nurtec ODT) oxycleanse 1 cap PO 1XD 02/07/25 History sennosides 8.6 mg-docusate sodium 1 tab-cap PO DAILY 0 02/07/25 Unknown History 50 mg tablet (2-in-1 Laxative) Allergy/AdvReac Type Severity Reaction Status Date / Time cefdinir Allergy Hives Verified 01/18/25 09:59 diphenhydramine HCl (From Allergy Hives Verified 01/18/25 09:59 Benadryl) Sulfa (Sulfonamide Allergy Hives Verified 01/18/25 09:59 Antibiotics) Family History Brother CAD (coronary artery disease) Mother CVA (cerebral vascular accident) CAD (coronary artery disease) Son Hypertension Daughter Hypertension Other Arthritis Cancer Diabetes Family history of CVA Family history of coronary artery disease Family history of hypertension Heart disease High cholesterol Kidney disease Thyroid disorder Surgical History History of left hip hemiarthroplasty History of incision and drainage Hx of cataract extraction History of total hysterectomy History of bilateral knee replacement History of cholecystectomy Social History household members: spouse housing: house number of children: 2 current occupational status: retired current occupational exposures/hazards: No pets and animals: No Smoking Status: Never smoker alcohol intake: never substance use type: does not use caffeine: Yes Type: tea what type of physical activity do you participate in: none seatbelt use: always do you feel safe at home: Yes additional social history: Does Not Take Aspirin Does Not Take Ibuprofen ROS Constitutional Constitutional: Denies fatigue, fever(s), poor appetite, weight gain or weight loss Gastrointestinal Gastrointestinal: Denies belching, bloating, change in bowel habits, change in stool character, chewing difficulty, coffee ground emesis, constipation, cramping, diarrhea, dyspepsia, dysphagia, earlysatiety, excessive flatus, fecalincontinence, heartburn, hematemesis, hematochezia, hemorrhoids, loose stools, melena, nausea, odynophagia, rectal bleeding, tenesmus, vomiting or weight changes Vital Signs Vital Signs Vital Signs: 02/07/25 07:57 02/07/25 07:59 Temperature 97.4 F L Temperature Source Temporal Pulse Rate 73 Respiratory Rate 16 Respiratory Pattern Normal Blood Pressure 131/74 H Blood Pressure Mean 93 Blood Pressure Source Monitor Blood Pressure Position Semi-Fowlers Blood Pressure Location Right Arm Pulse Ox 98 Oxygen Delivery Method Room Air Weight Weight: 143 lb 4.807 oz Body Mass Index (BMI) 26.2 Physical Exam Const alert, oriented x3, no apparent distress and healthy appearing General Appearance: cooperative GI normal to inspection, nondistended, normoactive bowel sounds, soft to palpation,non-tender and non-distended Percussion: normal to percussion Rectal Exam: deferred Assessment & Plan Assessment/Plan (1) Nausea: (2) Common bile duct dilation: (3) Heme + stool: (4) Iron deficiency anemia due to chronic blood loss: PLAN: Assessment and Plan Assessment and Plan (1) Nausea: Status: Acute Plan: This is a 74 yo female pt established with [facility] for CBD dilation. Work up with MRCP was normal. She has a hx of constipation which is controlled with mineral oil at this time. She will continue this. She has had daily nausea over the pastyear as well as increase is her migraines. SHe feels the nausea may be related. She has not undergone EGD to rule out gastric etiology of nausea. She will be scheduled for this today. I increased her omeprazole to 40 mg BID and prescribedpromethazine PRN. -EGD -Contoinue PPI -Promethazine PRN -f/u as needed (2) Common bile duct dilation: Status: Acute (3) Constipation: Status: Acute Medications: Refilled promethazine 12.5 mg PO TID PRN 30 tabs 1RF nausea and vomiting 02/07/25 0822 Cosigner Signature (if applicable): CC: Dr. Desmond Riojas MD; Alexander Bailey DO~ Signed [facility]05-21-2025 [facility] Medical Records Department [address] [place] [address] History Physical Exam 02/07/25 0820 MR#: [id number] Acct: [id number] Name: VIOLA BENNETT Rep #: [id number] : 1950 74 From: Alexander Bailey DO PCP: Dr. Desmond Riojas MD Status:REG [facility] Location: [place] [address] HPI - General General Date of Admission: 02/07/25 Date of Service: 02/07/25 Chief Complaint: Nausea HPI Narrative VIOLA BENNETT, is a 74 F who presents with the Chief Complaint: nausea. BGI established 9.6.24 after incidental findings of CBD dilation s/p cholecystectomy. Also with constipation alternating with diarrhea. Hx of Parkinson on Carbipoda-levodopa. CT abdomen pelvis; 04.19.24 Status post cholecystectomy. Intrahepatic biliary ductal dilatation as well as the common bile duct. Correlation with ERCP is recommended. Sigmoid diverticulosis. Moderate sized ventral hernia containing fat. MRCP 11..24; Stable common bile duct dilatation without evidence of an obstructing stone or mass. Last OV 12.6.24 Doing well with constipation. Controlled with mineral oil in the evening. Was taken off Carbidopa-levodopa. Struggling now with new daily migraines and nausea. Taking PPI and Zofran PRN. PPI increased to twice a day. Increased zofran to 8 mg. OV 3.7.25; Pt continues to have nausea daily but no vomiting. She is taking zofran just one time per week because she is nervous she will run out. She continues to have migraines daily which may be the cause of her nausea. She has an upcoming appointment with neurology in December 2024. She continues with Omeprazole 40 mg daily and zofran PRN. Her constipation is well controlled with mineral oil. [facility] Medical History Ambulates with cane Anemia Hoarseness Other specified disorders of bone density and structure, unspecified site Other primary thrombophilia Arthropathy, unspecified Acute embolism and thrombosis of other specified deep vein of unspecified lower extremity Anxiety disorder, unspecified Other hyperlipidemia Vitamin D deficiency Encounter for other procedures for purposes other than remedying health state Dysphonia Metabolic syndrome Fracture of unspecified part of neck of left femur, initial encounter for closed fracture Unspecified multiple injuries, initial encounter Thyroid nodule Sacroiliitis BMI 32.0-32.9,adult Melena Loss of hearing Low iron GERD (gastroesophageal reflux disease) Sleep apnea Hypertension Subcutaneous nodule Parkinson disease Generalized weakness Hypokalemia Factor V Leiden mutation Generalized weakness Chronic anticoagulation History of atrial fibrillation History of Parkinson's disease Fall Anxiety Concussion Essential hypertension Fall Presbycusis of both ears Osteopenia Malnourished Anemia Anterolisthesis Segmental and somatic dysfunction of thoracic region Vasovagal near syncope Insomnia Allergic rhinitis Migraine Hyperlipidemia Gastroesophageal reflux disease Hypertension Deep vein thrombosis Obstructive sleep apnea Depression Osteoarthritis Factor 5 Leiden mutation, heterozygous Open wound of left lower leg with complication Fall as cause of accidental injury at home as place of occurrence Wears hearing aid Wears glasses Depression Anxiety Open wound Walker as ambulation aid DVT (deep venous thrombosis) High cholesterol Injury of back Injury of head and neck Migraine headache Syncope Gastric reflux Non-smoker CPAP (continuous positive airway pressure) dependence History of pain when walking History of edema Hx of echocardiogram History of stress test Cardiology follow-up encounter History of atrial fibrillation Cellulitis of left lower leg Skin necrosis 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 lower leg with complication Hematoma of left lower extremity Vision problems Cataract Back pain Segmental and somatic dysfunction of pelvic region Segmental and somatic dysfunction of lumbar region Scoliosis of lumbar spine CKD (chronic kidney disease) History of DVT (deep vein thrombosis) VALENTIN (obstructive sleep apnea) Paroxysmal atrial fibrillation Long-term use of high-risk medication Family history of coronary artery disease Family history of CVA 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 [facility]05-21-2025 Consult note [facility] Medical Records Department [address] [place] [address] Pre-Anesthesia Evaluation 02/07/25 0740 MR#: [id number] Acct: [id number] Name: VIOLA BENNETT Rep #:[id number] : 1950 74 From: Sharan Verduzco MD PCP: Dr. Desmond Riojas MD Status:REG S DC Y Race: C Location: [place] [address] ASA Classification* ASA Classification ASA Classification: 3 Assessment & Plan Anesthesia* Anesthesia Assessment Anesthesia Assessment: Discussed sedation and/or anesthesia options, risks, benefits, and alternatives with patient/parents/legal guardian/POA. Questions invited. The patient/parents/legal guardian/POA seems to understand and agrees to proceedwith anesthesia plan. Reviewed the physical assessment, medical history, allergy history and patient home medications list prior to surgery/procedure/anesthetic and documented any changes. Performed airway and anesthesia risk assessments. Anesthesia Type Anesthesia Type: MAC Anesthesia Focused Assessment* Airway Assessment Mouth opens: >3 cm Mallampati Score: II Focused Labs Anesthesia Preop lab: CBC WBC 4.2 K/mm3 (4.4-11.0) L 12/05/24 10:47 12/05/24 RBC 4.36 M/mm3 (4.2-5.4) 12/05/24 10:47 12/05/24 Hgb 13.8 g/dL (12.0-15.0) 12/05/24 10:47 12/05/24 Hct 40.2 % (37-47) 12/05/24 10:47 12/05/24 Plt Count 186 K/mm3 (150-450) 12/05/24 10:47 12/05/24 CHEMISTRY Potassium 4.1 mmol/L (3.3-5.1) 12/05/24 10:47 12/05/24 Sodium 140 mmol/L (133-145) 12/05/24 10:47 12/05/24 Magnesium 2.2 mg/dL (1.6-2.6) 04/25/24 11:39 04/25/24 Phosphorus 2.9 mg/dL (2.5-4.9) 04/25/24 11:39 04/25/24 BUN 18 mg/dL (4-19) 12/05/24 10:47 12/05/24 Creatinine 0.80 mg/dL (0.70-1.20) 12/05/24 10:47 12/05/24 Glucose 102 mg/dL (70-99) H 12/05/24 10:47 12/05/24 POC Glucose 88 mg/dL (74-106) 09/12/22 19:21 09/12/22 TSH 1.290 uIU/mL (0.300-4.200) 12/05/24 10:47 11/18 05/14 COAG PT 17.0 SECONDS (11.7-14.9) H 04/22/24 23:50 08/0 12/11 Pre-Assessment Diagnosis/Proposed Procedure Planned Operative Procedure(s): EGD Anesthesia History Anesthesia History - rheumatologist: Anesthesia History - rheumatologist Hx Hospitalization No 02/06/25 09:44 Any Problems With Anesthesia No 02/06/25 09:44 Cholinesterase deficiency No 02/06/25 09:44 You/Your Family Experience No 02/06/25 09:44 fever (hyperthermia) with Relationship Recent Exposure to Contagious No 06/30/24 06:08 Disease Does patient have nerve No 02/06/25 09:44 stimulator Patient instructed to have device shut off --Does patient have Pacemaker or ICD? When Was Last Pacemaker Check QUESTION #4 FULL TEXT: You/Your Family Experience fever (hyperthermia) with Anesthesia Last Oral Intake Last Oral intake: Last Oral Intake NPO since Meds taken in AM with sips of water? 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 - rheumatologist: PONV - rheumatologist Female Yes 02/06/25 09:44 HX of Motion Sickness No 02/06/25 09:44 HX of N/V After Surgery No 02/06/25 09:44 Non-Smoker Yes 02/06/25 09:44 Duration of Surgery greater No 02/06/25 09:44 than 60 minutes Number of Risk Factors 2 02/06/25 09:44 PONV Score Moderate Risk 02/06/25 09:44 Height & Weight Height & Weight: Anesthesia: Height & Weight Height 5 ft 2 in 01/18/25 08:09 Respiratory Assessment Respiratory Assessment - rheumatologist: Respiratory Tract Infection Hx - rheumatologist Hx Respiratory Tract Infection No 02/06/25 09:44 STOP Sleep Apnea STOP Sleep Apnea - rheumatologist: STOP Sleep Apnea - rheumatologist Hx Hypertension Yes 02/06/25 09:44 Hx Sleep Apnea Yes 02/06/25 09:44 CPAP Yes: HASN'T BEEN USING 02/06/25 09:44 LATELY BIPAP No 02/06/25 09:44 Do you snore loudly (louder than talking or can be heard Do you often feel tired/ fatigued/ sleepy during daytime? Has anyone observed you stop breathing during sleep? STOP Results Positive 02/06/25 09:44 QUESTION #5 FULL TEXT : Do you snore loudly (louder than talking or can be heard through closeddoors)? Tobacco Use History Tobacco Use History - rheumatologist: Tobacco Use History - rheumatologist Tobacco Use Non-smoker 09/14/22 10:00 Smoking Status Never smoker 02/06/25 09:44 Hx Tobacco Use No 02/06/25 09:44 Years Smoking Packs Smoked per Day Smoking Cessation Date was within the last 15 years Hx Smoking Cessation Date Hx Smoking Cessation No 02/06/25 09:44 Counseling Hematologic Medial History Hematologic Hx - rheumatologist: Hematologic Medical Hx - roof slater Hx of Blood Transfusion No 02/06/25 09:44 Hx of Transfusion in last 3 No 02/06/25 09:44 Months Date of Last Transfusion (if within last 3 months) Ever experience any problems No 02/06/25 09:44 with transfusion(s)? Specify any problems Hx of Preganancy in last 3 No 02/06/25 09:44 Months Nurse Filling Out Transfusion VLEHMAN 02/06/25 09:44 & Questions: Date: 02/06/25 02/06/25 09:44 Time: 09:52 02/06/25 09:44 Patient unable to answer at this time (ie. confused, unrespo /Reproduction History /Reproductive History - rheumatologist: /Reproductive Hx- rheumatologist Hx Now No 02/06/25 09:44 Gestational Age (in weeks): EDC: Hx Hx Para Hx Section SAB No 06/28/24 09:43 Active Medications Active Medications: Current Medications Generic Name Dose Route Start Last Admin Trade Name Freq PRN Reason Stop Dose Admin Lactated Ringer's 1,000 mls @ 15 mls/hr 02/07/25 07:30 IV .Q48H BARRETT PFSH Medical History Ambulates with cane Anemia Hoarseness Other specified disorders of bone density and structure, unspecified site Other primary thrombophilia Arthropathy, unspecified Acute embolism and thrombosis of other specified deep vein of unspecified lower extremity Anxiety disorder, unspecified Other hyperlipidemia Vitamin D deficiency Encounter for other procedures for purposes other than remedying health state Dysphonia Metabolic syndrome Fracture of unspecified part of neck of left femur, initial encounter for closedfracture Unspecified multiple injuries, initial encounter Thyroid nodule Sacroiliitis BMI 32.0-32.9,adult Melena Loss of hearing Low iron GERD (gastroesophageal reflux disease) Sleep apnea Hypertension Subcutaneous nodule Parkinson disease Generalized weakness Hypokalemia Factor V Leiden mutation Generalized weakness Chronic anticoagulation History of atrial fibrillation History of Parkinson's disease Fall Anxiety Concussion Essential hypertension Fall Presbycusis of both ears Osteopenia Malnourished Anemia Anterolisthesis Segmental and somatic dysfunction of thoracic region Vasovagal near syncope Insomnia Allergic rhinitis Migraine Hyperlipidemia Gastroesophageal reflux disease Hypertension Deep vein thrombosis Obstructive sleep apnea Depression Osteoarthritis Factor 5 Leiden mutation, heterozygous Open wound of left lower leg with complication Fall as cause of accidental injury at home as place of occurrence Wears hearing aid Wears glasses Depression Anxiety Open wound Walker as ambulation aid DVT (deep venous thrombosis) High cholesterol Injury of back Injury of head and neck Migraine headache Syncope Gastric reflux Non-smoker CPAP (continuous positive airway pressure) dependence History of pain when walking History of edema Hx of echocardiogram History of stress test Cardiology follow-up encounter History of atrial fibrillation Cellulitis of left lower leg Skin necrosis 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 lower leg with complication Hematoma of left lower extremity Vision problems Cataract Back pain Segmental and somatic dysfunction of pelvic region Segmental and somatic dysfunction of lumbar region Scoliosis of lumbar spine CKD (chronic kidney disease) History of DVT (deep vein thrombosis) VALENTIN (obstructive sleep apnea) Paroxysmal atrial fibrillation Long-term use of high-risk medication Family history of coronary artery disease Family history of CVA 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 Traumatic ulcer of left lower extremity Atrial fibrillation CKD (chronic kidney disease) Obesity, Class III, BMI 40-49.9 (morbid obesity) Hypertension Head injury without concussion or intracranial hemorrhage Fall due to ice or snow Home Medications ?Medication ?Instructions ?Recorded ?Last Taken ?Type galcanezumab-gnlm 120 mg/mL 120 mg subcut QMONTH Migra jacque 10/25/19 05/23/22 08:00 History subcutaneous syringe (Emgality) multivitamin 1 tab PO DAILY Supplement 05/27/22 History divalproex 500 mg tablet,extended 500 mg PO QHS headac he 01/31/21 05/27/22 History release 24 hr (Depakote ER) ergocalciferol (vitamin D2) 1,250 1,250 mcg PO DAILY s upplement 11/24/21 05/27/22 07:00 History mcg (50,000 unit) capsule apixaban 5 mg tablet 5 mg PO BID Blood thinner #6 0 tabs 06/12/22 02/04/25 Rx verapamil 120 mg 24 hr 240 mg PO DAILY 04/22/24 Unk nown History capsule,extended release citalopram 20 mg tablet 30 mg PO DAILY 07/15/24 Unkn own History omeprazole 40 mg capsule,delayed 40 mg PO QDAY #90 cap s 12/12/24 Unknown Rx release polysaccharide iron complex 150 mg 150 mg PO QDAY 12/21 Unknown History iron capsule kgbbfof-hsjnttc-likdppbgof capsule 1 cap PO DAILY 10/14 Unknown History (Guarana capsule) ondansetron HCl 4 mg tablet 4 mg PO Q8H PRN nausea and vomiting 01/18/25 Unknown History potassium chloride 20 mEq 20 meq PO DAILY #90 tabs 10/14 Unknown Rx tablet,extended release(part/cryst) rimegepant 75 mg disintegrating 75 mg PO ONCE PRN migr laine headache 01/18/25 Unknown History tablet (Nurtec ODT) Allergy/AdvReac Type Severity Reaction Status Date / Time cefdinir Allergy Hives Verified 01/18/25 09:59 diphenhydramine HCl (From Allergy Hives Verified 01/18/25 09:59 Benadryl) Sulfa (Sulfonamide Allergy Hives Verified 01/18/25 09:59 Antibiotics) Family History Brother CAD (coronary artery disease) Mother CVA (cerebral vascular accident) CAD (coronary artery disease) Son Hypertension Daughter Hypertension Other Arthritis Cancer Diabetes Family history of CVA Family history of coronary artery disease Family history of hypertension Heart disease High cholesterol Kidney disease Thyroid disorder Surgical History History of left hip hemiarthroplasty History of incision and drainage Hx of cataract extraction History of total hysterectomy History of bilateral knee replacement History of cholecystectomy Social History household members: spouse housing: house number of children: 2 current occupational status: retired current occupational exposures/hazards: No pets and animals: No Smoking Status: Never smoker alcohol intake: never substance use type: does not use caffeine: Yes Type: tea what type of physical activity do you participate in: none seatbelt use: always do you feel safe at home: Yes additional social history: Does Not Take Aspirin Does Not Take Ibuprofen Review of Systems (Anesthesia) ROS Narrative System reviewed and no additional complaints, except as documented. 02/07/25 0741 > Date _ Sharan Verduzco MD Cosigner Signature: Date CC: ~ Signed [facility]05-05-2025 Nuclear medicine Diagnostic study note [facility] Imaging Services [address] [place] [address] [id number] Gastric Emptying Study MR#: [id number] Acct: [id number] Name: LUISA BENNETTMark Payton Rep #: [id number] : 1950 F 74 From: Stephanie Nolan MD PCP: Dr. Desmond Riojas MD Status: REG C WALESKA Study:Gastric Emptying Study Date of Exam: 01/22/25 Exam# [id number] Ordering Dr: Lio Harrell PERIOPERATIVE TECH-C PROCEDURE: GASTRIC EMPTYING STUDY 01/22/2025 REASON FOR EXAM: CHRONIC NAUSEA HISTORY OF CHOLECYSTECTOMY. PARKINSON'S. COMPARISON: NO RELEVANT PRIOR. TECHNIQUE: The patient ingested a standard meal of 1 cup of oatmeal with the radiopharmaceutical. Following ingestion, anterior and posterior gamma camera images were acquired at60 second intervalsfor a total of 60 minutes. Regions of interest were drawn, and a geometric mean was used to calculate a help-[id number]. Medications taken in the past 24 hours that may affect gastric emptying: None Radiopharmaceutical: 1.1 mCi of Technetium Sulfur Colloid.. FINDINGS: Percent activity remaining in stomach: 1 hour 51 % (normal 37-90%) NM/Gastric Emptying Study IMPRESSION: Normal gastric emptying study. Reading Location: [facility] CC: LIZ Harrell; Dr. Desmond Riojas MD ~ Data Base Design Analyst: Signed [facility]04-11-2025 Radiology Diagnostic study note [facility] Imaging Services [address] [place] [address] [id number] Abdomen Single View MR#: [id number] Acct: [id number] Name: VIOLA BENNETT Rep #: [id number] : 1950 F 74 From: Faviola Gilbert MD PCP: Dr. Desmond Riojas MD Status: REG C WALESKA Study:Abdomen Single View Date of Exam: 12/29/24 Exam# [id number] Ordering Dr: Lio Harrell PERIOPERATIVE TECH-C EXAM: XR Abdomen, 1 View CLINICAL INDICATION: CHRONIC NAUSEA TECHNIQUE: Frontal supine view of the abdomen/pelvis. COMPARISON: No relevant prior studies available. FINDINGS: GASTROINTESTINAL TRACT: Fecal retention in the colon consistent with constipation. No dilation. BONES/JOINTS: Total left hip replacement. No acute fracture. RAD/Abdomen Single View IMPRESSION: Fecal retention in the colon consistent with constipation. Reading Location: [facility] CC: LIZ Harrell; Dr. Desmond Riojas MD ~ Data Base Design Analyst: Signed [facility]03-07-2025 Evaluation note* Diagnosis Onset Date Resolution Status Admit Date Common bile duct dilation acute November 24, 2024 8:45am Constipation acute November 24, 2 025 8:45am Nausea acute November 24 8:45am [facility] Work Phone: 1(970) 890-290003-07-2025 Evaluation note* Diagnosis Onset Date Resolution Status Admit Date Common bile duct dilation acute November 24, 2024 8:45am Constipation acute November 24, 2 025 8:45am Nausea acute November 24 8:45am Hypertension chronic January 18 9:50am Parkinson disease chronic January 9:50am Paroxysmal atrial fibrillation chron ic January 18, 2025 9:50am Preoperative cardiovascular examination noneactive January 18, 2025 9: 50am [facility] Work Phone: 1(455) 228-874203-07-2025 Evaluation note* Diagnosis Onset Date Resolution Status Admit Date Common bile duct dilation acute November 24, 2024 8:45am Constipation acute November 24, 025 8:45am Nausea acute November 24 8:45am Hypertension chronic January 18 9:50am Parkinson disease chronic January 9:50am Paroxysmal atrial fibrillation chron ic January 18, 2025 9:50am Preoperative cardiovascular examination noneactive January 18, 2025 9: 50am Common bile duct dilation acute February 07, 2025 7:19am Heme + stool acute February 07 7:19am Nausea acute February 07, 2025 7:19am Iron deficiency anemia due t o chronic blood loss chronic February 07 7:19am [facility] Work Phone: 1(894) 982-764103-07-2025 Evaluation note* Diagnosis Onset Date Resolution Status Admit Date Common bile duct dilation acute November 24, 2024 8:45am Constipation acute November 24, 2 025 8:45am Nausea acute November 24 8:45am Hypertension chronic January 18 9:50am Parkinson disease chronic January 9:50am Paroxysmal atrial fibrillation chron ic January 18, 2025 9:50am Preoperative cardiovascular examination noneactive January 18, 2025 9: 50am Common bile duct dilation acute February 07, 2025 7:19am Heme + stool acute February 07 7:19am Nausea acute February 07, 2025 7:19am Iron deficiency anemia due t o chronic blood loss chronic February 07 7:19am Nausea acute 2025 9:44am [facility] Work Phone: 1(243) 313-928601-20-2025 History of Present illness Narrative* Magnolia Sheffield, PERIOPERATIVE TECH - 10/09/2024 10:00 AM EST Images from the original note were not included. CHIEF COMPLAINT: parkinsons HISTORY OF PRESENT ILLNESS: 74 year old female to follow up on parkinsons with dtr via telemedicine visit, verbal consent obtained. Last visit recommended to stop sinemet, per patient sxs resolved of jaw clicking, slurred speech, eds improved. Doing well, mild intermittent left hand rest tremor noted, not bothersome or interfere with daily activities. Remains independt with adls, uses cane for mobility, no falls or gait instability. Denies further questions or concerns. Last visit 07/31/24 NMF: The patient was seen a month ago for neuropathy. She was on gabapentin, but it caused leg weakness and memory issues, so she discontinued it. She has been managing her headaches with Tylenol and ice and was also on Emgality. She experienced constipation, diarrhea, weight loss, slurred speech, memory loss, headaches, and neuropathy. She is accompanied by an adult female. She reports feeling slightly better. She consulted a director cardiovascular who planned a colonoscopy, but it was not performed due to her constipation. She was advised to take mineral oil at night and MiraLAX and Metamucil in the morning. Her bowel movements have improved from black diarrhea to more formed stools. She was diagnosed with a hiatal hernia located in her esophagus, which does not require surgery. She was given a magnesium citrate kit and started on a regimen of mineral oil at night, herbal caffeine pills, and a combination of Metamucil and MiraLAX in the morning. She has been eatingas recommended, although her appetite is still low and she cannot eat much. She has lost weight, dropping from 172 pounds in October 2023 to 137 pounds currently. She has been eating smaller meals and drinking Ensure twice a day. She has noticed a clicking sound in her jaw when she takes carbidopa levodopa, which started about 3 months ago. This clicking sound occurs about 1 hour and 15 minutes to 1 hour and 30 minutes after taking the medication. She took her last dose of carbidopa levodopa at 8:00 AM today and is currently experiencing the clicking sound. She also reports feeling tired and often goes back to bed after breakfast, not waking up until after 11:00 AM. She has noticed some improvement in her shaking symptoms. She has been off amitriptylinefor a couple of weeks due to sleep issues. She has not tried Nurtec. She has been taking Tylenol PMfor sleep and uses it 5 or 6 days a month. Current Outpatient Medications on File Prior to Visit Medication Sig Dispense Refill carbidopa-levodopa (Sinemet) 25-100 MG tablet take 2 tablets by mouth IN THE MORNING 2 tablets AT NOON 2 tablets IN THE EVENING and 2 tablets at bedtime 720 tablet 1 carbidopa-levodopa (Sinemet) 25-100 MG tablet Take 2 pills at 9a, 2p, 6p, and one pill at bedtime 630 tablet 2 divalproex (Depakote ER) 500 MG 24 hr tablet Take 1 tablet (500 mg) by mouth in the morning. 30 tablet 1 Eliquis 5 MG tablet Take 5 mg by mouth every 12 (twelve) hours. ergocalciferol (Vitamin D2) 1.25 MG (78111 UT) capsule Take 50,000 Units by mouth once a week (Patient taking differently: Take 50,000 Units by mouth 1 (one) time each day) galcanezumab (Emgality) 120 MG/ML auto-injector Inject 120 mg under the skin every 30 (thirty) days. Guarana, Paullinia cupana, 200 MG capsule Take 2 capsules by mouth Daily IFerex 150 150 MG capsule Take 150 mg by mouth Daily methylPREDNISolone (Medrol Dospak) 4 MG tablets Follow schedule on package instructions 21 tablet 0 mineral oil liquid Take 30 mL by mouth Daily as needed for constipation Multiple Vitamin (Multivitamin Adult) tablet as directed Orally omeprazole (PriLOSEC) [address] capsule ondansetron (Zofran) 4 MG tablet Take by mouth polyethylene glycol, PEG, 3350 (Miralax) 17 g packet Take by mouth potassium chloride CR (K-Tab) 20 MEQ ER tablet Take 20 mEq by mouth in the morning. Rimegepant Sulfate (Nurtec) 75 MG tablet dispersible Take 1 tablet as need for migraine. Max of 1 tablet in 24 hours. 8 tablet 0 senna-docusate (Rubia-Colace) 8.6-50 MG tablet Take 2 tablets by mouth in the morning and 2 tablets in the evening. verapamil ER (Verelan) 120 MG 24 hr capsule Take 240 mg by mouth Daily No current facility-administered medications on file prior to visit. Past Medical History: Diagnosis Date Coronary disease (CMS/HCC) Fall 02/2021 hematoma to left leg Hiatal hernia Hypercholesterolemia (CMS/HCC) Hypertension (CMS/HCC) Insomnia Lumbar spondylosis Lumbar stenosis 08/2022 Migraines (CMS/HCC) VALENTIN (obstructive sleep apnea) Osteoporosis ([facility]) Past Surgical History: Procedure Laterality Date CHOLECYSTECTOMY [...] or weight on file to calculate BMI. Examination: General Exam: pleasant, well nourished, well developed, in no acute distress Eyes: extraocular movement intact (EOMI) upper eyelids normal , lower eyelids normal Neurologic: nonfocal, alert and oriented, cognitive exam grossly normal, cranial nerves 2-12 grossly intact - Exam limited d/t telemedicine Psych: pleasant, cooperative, good eye contact , speech clear , judgement and insight good ASSESSMENT/PLAN: 1. Parkinson's disease without dyskinesia, with fluctuating manifestations (CMS/HCC) (Primary) She reports experiencing slurred speech and jaw clicking approximately 1 hour and 15 minutes to 1 hour and a half after taking carbidopa levodopa. The medication's effects last for approximately 3 to4 hours. She was advised to temporarily discontinue carbidopa levodopa to observe any changes in her condition. If she experiences discomfort, she can resume the medication. There is no need to wean off the medication, and it can be restarted at the same dose if needed. Update: stopped sinemet, sxs resolved- jaw clicking, slurred speech, improved eds. Currently has mild left hand rest tremor intermittently, not bothersome. Defers further tx at this time. 2. Chronic migraine without aura, intractable, without status migrainosus (CMS/HCC) continue emgality 120 mg subcutaneous every month (ok to sample), nurtec prn- ok to sample Adequate sleep, decrease stress 01/10/24 MRI of brain: unremarkable 3. Neuropathy 05/31/24 EMG/NCS: consistent with peripheral neuropathy, moderate to severe degree. Defers tx 4. VALENTIN (obstructive sleep apnea) Previously on pap therapy, intolerant Pt has been fully educated on their diagnosis, treatment options, follow up plan, and return instructions. documented in this [facility]12-06-2024 Evaluation note* Diagnosis Onset Date Resolution Status Admit Date Nausea acute August 25, 2024 9:15am Common bile duct dilation acute November 24, 2024 8:45am Constipation acute November 24, 025 8:45am Nausea acute November 24 8:45am [facility] Work Phone: 1(132) 583-330511-11-2024 History of Present illness Narrative* Preston Molina MD - 07/31/2024 11:40 AM EST Images from the original note were not included. CHIEF COMPLAINT: Viola Donald is a 74 y.o. female here today for Chief Complaint Patient presents with lab results HISTORY OF PRESENT ILLNESS: History of Present Illness The patient was seen a month ago for neuropathy. She was on gabapentin, but it caused leg weakness and memory issues, so she discontinued it. She has been managing her headaches with Tylenol and ice and was also on Emgality. She experienced constipation, diarrhea, weight loss, slurred speech, memory loss, headaches, and neuropathy. She is accompanied by an adult female. She reports feeling slightly better. She consulted a director cardiovascular who planned a colonoscopy, but it was not performed due to her constipation. She was advised to take mineral oil at night and MiraLAX and Metamucil in the morning. Her bowel movements have improved from black diarrhea to more formed stools. She was diagnosed with a hiatal hernia located in her esophagus, which does not require surgery. She was given a magnesium citrate kit and started on a regimen of mineral oil at night, herbal caffeine pills, and a combination of Metamucil and MiraLAX in the morning. She has been eatingas recommended, although her appetite is still low and she cannot eat much. She has lost weight, dropping from 172 pounds in October 2023 to 137 pounds currently. She has been eating smaller meals and drinking Ensure twice a day. She has noticed a clicking sound in her jaw when she takes carbidopa levodopa, which started about 3 months ago. This clicking sound occurs about 1 hour and 15 minutes to 1 hour and 30 minutes after taking the medication. She took her last dose of carbidopa levodopa at 8:00 AM today and is currently experiencing the clicking sound. She also reports feeling tired and often goes back to bed after breakfast, not waking up until after 11:00 AM. She has noticed some improvement in her shaking symptoms. She has been off amitriptylinefor a couple of weeks due to sleep issues. She has not tried Nurtec. She has been taking Tylenol PMfor sleep and uses it 5 or 6 days a month. Current Outpatient Medications on File Prior to Visit Medication Sig Dispense Refill carbidopa-levodopa (Sinemet) 25-100 MG tablet take 2 tablets by mouth IN THE MORNING 2 tablets AT NOON 2 tablets IN THE EVENING and 2 tablets at bedtime 720 tablet 1 carbidopa-levodopa (Sinemet) 25-100 MG tablet Take 2 pills at 9a, 2p, 6p, and one pill at bedtime 630 tablet 2 divalproex (Depakote ER) 500 MG 24 hr tablet take 1 tablet by mouth every morning 30 tablet 0 Eliquis 5 MG tablet Take 5 mg by mouth every 12 (twelve) hours. ergocalciferol (Vitamin D2) 1.25 MG (35084 UT) capsule Take 50,000 Units by mouth once a week (Patient taking differently: Take 50,000 Units by mouth 1 (one) time each day) galcanezumab (Emgality) 120 MG/ML auto-injector Inject 120 mg under the skin every 30 (thirty) days. Guarana, Paullinia cupana, 200 MG capsule Take 2 capsules by mouth Daily IFerex 150 150 MG capsule Take 150 mg by mouth Daily mineral oil liquid Take 30 mL by mouth Daily as needed for constipation Multiple Vitamin (Multivitamin Adult) tablet as directed Orally omeprazole (PriLOSEC) [address] capsule ondansetron (Zofran) 4 MG tablet Take by mouth polyethylene glycol, PEG, 3350 (Miralax) 17 g packet Take by mouth potassium chloride CR (K-Tab) 20 MEQ ER tablet Take 20 mEq by mouth in the morning. verapamil ER (Verelan) 120 MG 24 hr capsule Take 240 mg by mouth Daily amitriptyline (Elavil) 50 MG tablet Take 1 tablet (50 mg) by mouth at bedtime (Patient not taking: Reported on 07/31/2024) 90 tablet 3 ferrous sulfate 325 (65 Fe) MG tablet Take 325 mg by mouth in the morning. (Patient not taking: Reported on 07/31/2024) levocetirizine (Xyzal) 5 MG tablet 1 (one) time each day at the same time (Patient not taking: Reported on 07/31/2024) prochlorperazine (Compazine) 5 MG tablet take 1 tablet by mouth three times a day if needed for nausea and vomiting (Patient not taking: Reported on 07/31/2024) senna-docusate (Rubia-Colace) 8.6-50 MG tablet Take 2 tablets by mouth in the morning and 2 tablets in the evening. Singulair 10 MG tablet Take 10 mg by mouth 1 (one) time each day at the same time. (Patient not taking: Reported on 07/31/2024) No current facility-administered medications on file prior to visit. Past Medical History: Diagnosis Date Coronary disease ([facility]/HCC) Fall 02/2021 hematoma to left leg Hiatal hernia Hypercholesterolemia ([facility]/HCC) Hypertension ([facility]) Insomnia Lumbar spondylosis Lumbar stenosis 08/2022 Migraines ([facility]) VALENTIN (obstructive sleep apnea) Osteoporosis ([facility]) Past Surgical History: Procedure Laterality Date CHOLECYSTECTOMY [...] which shall supersede the foregoing. OBJECTIVE: Objective Vitals: 07/31/24 1144 BP: 124/82 Pulse: 77 SpO2: 99% Weight: 143 lb Height: 5' 2 Body mass index is 26.16 kg/m . No orders to display No visits with results within 2 Month(s) from this visit. Latest known visit with results is: No results found for any previous visit. Results Imaging CAT scan was okay. Examination: General Exam: pleasant, well nourished, well [...] good ASSESSMENT/PLAN: Assessment & Plan 1. Neuropathy. She reports experiencing slurred speech and jaw clicking approximately 1 hour and 15 minutes to 1 hour and a half after taking carbidopa levodopa. The medication's effects last for approximately 3 to4 hours. She was advised to temporarily discontinue carbidopa levodopa to observe any changes in her condition. If she experiences discomfort, she can resume the medication. There is no need to wean off the medication, and it can be restarted at the same dose if needed. 2. Constipation. She has been taking mineral oil at night and a combination of MiraLAX and Metamucil in the morning as prescribed by her director cardiovascular. This regimen has improved her bowel movements. She was advised to continue this treatment. 3. Weight Loss. Her weight has stabilized recently, with a slight increase from 135 lbs to 143 lbs. She is encouraged to eat smaller, more frequent meals and to continue drinking Ensure twice a day for additional protein. 4. Headaches/chronic migraine She continues to take Emgality for headache prevention and Tylenol as needed. She was advised to avoid daily use of Tylenol to prevent medication overuse headaches. Samples of Nurtec were provided asa rescue medication for her headaches. She was instructed to take one Nurtec pill as needed, but nomore than one per day. 5. Hiatal Hernia. She was diagnosed with a hiatal hernia by her director cardiovascular. No surgery is required. She was advised to follow the prescribed regimen of mineral oil, MiraLAX, and Metamucil to manage her symptoms. 6. Medication overuse headache: councilled, reports only using tylenol 2x/week 7. Parkinsons: unclear benefit to sinemet, agrees to hold rx for now 8. Valentin: intolerant of cpap Follow-up Return in 2 months for follow up. documented in this [facility]Texas [facility] [id number] History of Present illness Narrative* Preston Molina MD - 07/03/2024 11:40 AM EDT Images from the original note were not [...] issues. These symptoms have largely resolved since stoppingthe medication, and she reports feeling better. Although [...] years and is scheduled to see an millinery blocker on . She is unsure about the effects of her mental health medications, including Depakote, citalopram, and amitriptyline. Her citalopram was increased to 30 mg, probably 2 weeks ago by , and she takes 1-1/2 tablets a day. She has depression, which she attributes to having to take care ofher . She has been experiencing gastrointestinal issues, including constipation and diarrhea. She was unable to undergo a colonoscopy due to severe constipation. She is scheduled to see Dr. Bailey next Wednesday and has an MRI scheduled for July 25, 2024. She reports poor appetite and weight loss (>20lb)but no abdominal pain. She was prescribed a liquid laxative by Dr. Riojas and started on MiraLAX by the director cardiovascular. She was also put on a colon [...] attributed her symptoms to medication. She has beentaking carbidopa-levodopa 2 pills 3 times a day and 1 at bedtime. She also takes Depakote 500 mg, 1pill in the morning. She reports poor sleep despite taking amitriptyline 50 mg at bedtime. Last week, she attended her daughter's birthday constitution party and drove to the house. However, the [...] severe degree. Last visit referred to dr. Morris for severe stenosis, patient scheduled. Continues t feels off balance at times, overall feels extra dose of sinemet at bedtime is helpful. 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 Goingto follow up with pcp d/t currently celexa. [...] Per son and pt, is the primary personal care aide for spouse, pt brought [facility] to care for him d/t cost. [...] by mouth in the morning and 1 capsule(100 mg) in the evening and 1 capsule [...] with Emgality. She uses Tylenol and ice forrelief. A CT scan of the brain and [...] other symptoms. Blood work and a CT scanof the brain have been ordered to investigate further. She is advised to follow up with her director cardiovascular for ongoing GI issues. 6. Constipation. Constipation and alternating diarrhea are noted. She is advised to follow up with her director cardiovascular next Wednesday. An MRI is scheduled for July 25 to investigate potential inflammation in the bile duct. Follow-up Return in 2 weeks for follow up. documented in this encounterTexas County Memorial [id number] Telephone encounter Note* Telephone Encounter - Magnolia Sheffield NP - 06/12/2024 10:31 AM EDT Discontinue medication. Patient stopped medication Wednesday, sxs improved, now better. Dtr aware. [facility] [id number] Miscellaneous Notes* Telephone Encounter - Magnolia Sheffield NP - 06/12/2024 10:31 AM EDT Discontinue medication. Patient stopped medication Wednesday, sxs improved, now better. Dtr aware. * Telephone Encounter - MELISA ARGUETA - 06/12/2024 10:27 AM EDT Pts daughter called about gabapentin, states pt does not know what is going on, has weakness in herlegs, is disoriented, can't have a converation with her. Daughter has stopped the medication, silvestre hears back from you. Pau: [phone] documented in this [facility]09-23-2024 Telephone encounter Note* Telephone Encounter - MELISA ARGUETA - 06/12/2024 10:27 AM EDT Pts daughter called about gabapentin, states pt does not know what is going on, has weakness in herlegs, is disoriented, can't have a converation with her. Daughter has stopped the medication, untilshe hears back from you. Pau: [phone] [facility] [id number] History of Present illness Narrative* Magnolia Sheffield, PERIOPERATIVE TECH - 06/02/2024 11:30 AM EDT Images from the original note were not included. CHIEF COMPLAINT: Test results neuropathy HISTORY OF PRESENT ILLNESS: 74 year old female to follow up on test results, neuropathy via telemedicine visit, verbal consent obtained. 05/31/24 EMG/NCS: consistent with peripheral neuropathy, moderate to severe degree. Last visit referred to dr. Morris for severe stenosis, patient scheduled. Continues t feels off balance at times, overall feels extra dose of sinemet at bedtime is helpful. C/o increased headaches, admits toincrease daily stress - primary caregiver for spouse, [...] Per son and pt, is the primary personal care aide for spouse, pt brought spouse home from [facility] to care for him d/t cost. Difficult [...] mg by mouth every 12 (twelve) hours. galcanezumab (Emgality) 120 MG/ML auto-injector Inject 120 [...] denies. Genitourinary: Painful urination: denies. Musculoskeletal: Joint edema: denies. Skin: Rash: denies. Neurologic: Change memory: denies Psychiatric Suicidal thoughts: denies. Also see HPI for elements of ROS documented therein and for details of positive findings, which shall supersede the foregoing. OBJECTIVE: Objective There were no vitals filed for this visit. There is no height or weight on file to calculate BMI. Examination: General Exam: pleasant, well nourished, well developed, in no acute distress Eyes: extraocular movement intact (EOMI) upper eyelids normal , lower eyelids normal Neurologic: nonfocal, alert and oriented, cognitive exam grossly normal, cranial nerves 2-12 grossly intact - Exam limited d/t telemedicine Psych: pleasant, cooperative, good eye contact , speech clear , judgement and insight good ASSESSMENT/PLAN: 1. Neuropathy Start gbn 100 mg tid 05/31/24 EMG/NCS: consistent with peripheral neuropathy, moderate to severe degree. - gabapentin (Neurontin) 100 MG capsule; Take 1 capsule (100 mg) by mouth in the morning and 1 capsule (100 mg) in the evening and 1 capsule (100 mg) before bedtime. Dispense: 90 capsule; Refill: 1 2. Chronic bilateral low back pain without sciatica Check lumbar mri d/t left leg weakness- only occurs with fatigue and tiredness Receives injection by pain management, per patient hx of spinal stenosis years ago 01/10/24 MRI of brain: unremarkable Update: reviewed lumbar mri images, severe stenosis at L3-4. Refer to dr morris and check emg. Update: Patient scheduled with dr. Morris, mri lumbar 03/06/24 3. Parkinson's disease without dyskinesia, with fluctuating manifestations (CMS/HCC) Improved, continue sinemet 25/100 mg 2 tabs (9a, 2p, 6p) and 1 tab at bedtime- denies need to adjust dosage Continue therapy, exercise/activity daily 4. Chronic migraine without aura, intractable, without status migrainosus (CMS/HCC) Stable, continue emgality 120 mg subcutaneous every month (ok to sample), depakote er 500 mg daily,amitriptyline 50 mg at bedtime Increased headaches, stop tylenol daily, sample nurtec prn. No triptans d/t cad, htnIncreased headaches d/t daily stress, going to follow up with pcp to address. 01/10/24 MRI of brain: unremarkable 5. VALENTIN (obstructive sleep apnea) Continue CPAP @ 10 cmH2O Wear nightly, benefiting from treatment, good compliance 6. Insomnia, unspecified type On amitriptyline 50 mg at bedtime 7. Stress Patient to follow up with pcp, currently on celexa. Primary caregiver for spouse Pt has been fully educated on their diagnosis, test results, treatment options, follow up plan, andreturn instructions. Total time 44 min documented in this encounterTexas [facility] [id number] Telephone encounter Note* Telephone Encounter - Padmini Torres - 05/25/2024 3:13 PM EDT Fabiola from OT at [facility], states pt says upper extremities getting worse, more tremors Also pt stated having consistent headaches, start at base of neck going up to top of head, pain 7/10, , have been recurrent over past couple of weeks [facility] [id number] Miscellaneous Notes* Telephone Encounter - Padmini Torres - 05/25/2024 3:13 PM EDT Fabiola from OT at [facility], states pt says upper extremities getting worse, more tremors Also pt stated having consistent headaches, start at base of neck going up to top of head, pain 7/10, , have been recurrent over past couple of weeks documented in this encounterTexas [facility] [id number] Progress note Author Сергей Vega [facility] December 19, 2023 1:56pm Note Date/Time December 19, 2023 1:5 6pm [facility] Medical Records Department [address] [place] [address] Progress Note - Hospitalist 12/19/23 1354 MR#: [id number] Acct: [id number] Name: VIOLA BENNETT Rep #:[id number] : 1950 73 From: Сергей garcia MD PCP: Dr. Desmond Riojas MD Status:ADM I NO Location: MS3 HI127-1 Subjective Subjective Feels better than when she came in and is feeling better than she has this last week but she still feels upset about going home, she still has some shakiness when she was walking with physical therapy today. And she does take care of herhusband at home and she is afraid to go home today. She will need home health on discharge Objective Data Objective Data Vital Signs: Vital Signs Temp Pulse Resp BP Pulse Ox O2 Del Method O2 Flow Rate 97.8 F 68 16 142/75 H 100 Room Air 2 12/19/23 08:21 12/19/23 08:21 12/19/23 08:21 12/19/23 08:21 12/19/23 08:21 12/19/23 08:21 12/19/23 02:38 Oxygen Flow Rate (L/min) 2 Oxygen Delivery Method Room Air Weight: 166 lb 0.129 oz Body Mass Index (BMI) 30.5 Intake & Output: Intake and Output for Last 24 Hours 12/18/23 12/19/23 12/20/23 03:59 03:59 03:59 Intake Total 500 / 500 1100 / 1100 1100 / 1100 Output Total 1150 / 1150 Balance 500 / 500 -50 / -50 1100 / 1100 Lab / Micro Data 12/19/23 04:45 12/19/23 04:45 Labs: Laboratory Results - last 24 hr 12/19/23 04:45: WBC 3.7 L, RBC 3.79 L, Hgb 11.7 L, Hct 35.5 L, MCV 93.7, MCH 30.9, MCHC 33.0 D, RDW Std Deviation 46.0 H, RDW Coeff of Shannon 13.3, Plt Count 192, MPV 10.0, Immature Gran % (Auto) 0.300, Neut % (Auto) 47.5, Lymph % (Auto) 37.4, [place] % (Auto) 11.3 H, Eos % (Auto) 2.7, Baso % (Auto) 0.8, Absolute Neuts (auto) 1.8 L, Absolute Lymphs (auto) 1.39, Nucleated RBC % 0, Sodium 140, Potassium 4.1, Chloride 111 H, Carbon Dioxide 25.0, Anion Gap 4 L, BUN 11, Creatinine 0.79, Estim Creat Clear Calc 57.72, Est GFR (MDRD) Af Amer 91, Est GFR (MDRD) Non-Af 75, BUN/Creatinine Ratio 13.9, Glucose 91, Calcium 8.6 Rhythm Strip Rhythm Strip: Sinus Rhythm Rate: 79 Ectopy: None Physical Exam Narrative General: Alert, Oriented x3, Cooperative, No apparent distress HEENT: Atraumatic, PERRLA, EOMI, Normocephalic, left frontal hematoma ecchymosis Oral: Moist Mucosa Neck: Supple, No JVD Lungs: Diminished, Normal air movement, No rhonchi, No wheeze, No rales Cardiovascular: Regular rate, Regular Rhythm, Normal S1, Normal S2, No murmurs Abdomen: Soft, Non Tender, Non-Distended, No Hepato-splenomegaly Extremities: Trace edema, Capillary Refill Less than 3 Seconds Skin: No rashes, No breakdown Musculoskeletal: No Tenderness to Palpation of Joints or Extremities Neurological: No focal neurological deficits, Motor Exam 5/5 strength throughout, Sensory exam intact to light touch and pain Psych/Mental Status: anxious though improved from yesterday Assessment & Plan Assessment/Plan (1) Postconcussion syndrome: (2) Generalized weakness: (3) Unable to walk: (4) History of Parkinson's disease: (5) Chronic anticoagulation: (6) Factor V Leiden mutation: PLAN: Plan 1. Generalized weakness with postconcussion syndrome after mechanical fall on 12/03/2023/Parkinson's disease ? Head imaging is negative for bleed, she is on Eliquis for factor V Leiden and history of DVT ? Continue with IV fluids as well as Zofran for nausea ? MRI was unremarkable ? Unfortunately physical therapy was not able to evaluate her today because whenthey went in to see her she was done an MRI, will attempt evaluation tomorrow ? Continue with Sinemet, family states that they had to cut her down because of lightheadedness and dizziness but when they did tremors seem to get a little bitworse ? PT worked with her today and did not feel that she needed SNF placement however her gait for short and she felt she was unsteady. Will need home healthcare on discharge and she would like to go tomorrow if possible 2. Factor V Leiden ? She does have a history of a previous DVT ? Continue with Eliquis as there is no signs of intracranial bleeding on imaging 3. Essential HTN/paroxysmal A-fib ? Blood pressure stable ? Can resume as her home medications ? Continue with Eliquis ? Continue with statin 4. History of migraines/depression ? Stable ? Resume home medications 5. GERD ? Stable ? Continue with PPI DVT: Eliquis Charges/Coding Visit Charges Inpatient E&M: 92071 Subs Hosp L2 12/19/23 7456 <Electronically signed by Сергей Vega MD> Cosigner Signature (if applicable): CC: ~ Signed [facility] Work Phone: 1(444) 804-251803-30-2024 Progress note Author Сергей Vega [facility] December 18, 2023 3:59pm Note Date/Time December 18, 2023 3:5 9pm [facility] Medical Records Department [address] [place] [id number] Progress Note - Hospitalist 12/18/23 1554 MR#: [id number] Acct: [id number] Name: VIOLA BENNETT Rep #:[id number] : 1950 73 From: Сергей garcia MD PCP: Dr. Desmond Riojas MD Status:ADM I NO Location: MS3 [id number] Subjective Subjective Doing well, appears very anxious. No tremors or shaking at this time. MRI was negative for stroke Objective Data Objective Data Vital Signs: Vital Signs Temp Pulse Resp BP Pulse Ox O2 Del Method O2 Flow Rate 98.2 F 69 16 125/92 H 99 Room Air 2 12/18/23 15:13 12/18/23 15:13 12/18/23 15:13 12/18/23 15:13 12/18/23 15:13 12/18/23 15:13 12/18/23 08:11 Oxygen Flow Rate (L/min) 2 Oxygen Delivery Method Room Air Weight: 164 lb 3.91 oz Body Mass Index (BMI) 30.2 Intake & Output: Intake and Output for Last 24 Hours 12/17/23 12/18/23 12/19/23 03:59 03:59 03:59 Intake Total 500 / 500 100 / 100 Output Total 1150 / 1150 Balance 500 / 500 -1050 / -1050 Lab / Micro Data 12/18/23 05:44 12/18/23 05:44 Labs: Laboratory Results - last 24 hr 12/17/23 19:45: WBC 5.0, RBC 4.45, Hgb 14.2, Hct 39.8, MCV 89.4, MCH 31.9, MCHC 35.7, RDW Std Deviation 41.8, RDW Coeff of Shannon 12.7, Plt Count 255, MPV 10.1, Immature Gran % (Auto) 0.200, Neut % (Auto) 64.1, Lymph % (Auto) 25.7, [place]and[place] % (Auto) 8.4, Eos % (Auto) 0.8, Baso % (Auto) 0.8, Absolute Neuts (auto) 3.2, Absolute Lymphs (auto) 1.29, Nucleated RBC % 0, Sodium 135 L, Potassium 3.1 L, Chloride 103, Carbon Dioxide 20.0 L, Anion Gap 12, BUN 16, Creatinine 1.03 H, Estim Creat Clear Calc 45.70, Est GFR (MDRD) Af Amer 67, Est GFR (MDRD) Non-Af 55 L, BUN/Creatinine Ratio 15.5, Glucose 164 H, Calcium 9.8, Total Bilirubin 0.80, AST 18, ALT < 6 L, Alkaline Phosphatase 70, Total Protein 7.6, Albumin 4.1, Globulin 3.5, Albumin/Globulin Ratio 1.2 12/17/23 20:50: Urine Color Yellow, Urine Clarity Clear, Urine pH 8.0, Ur Specific [place] 1.015, Urine Protein Negative, Urine Glucose (UA) Normal, UrineKetones 50 H, Urine Occult Blood Negative, Urine Nitrite Negative, Urine Bilirubin Negative, Urine Urobilinogen Normal, Ur Leukocyte Esterase Negative, Urine RBC 0 SEEN, Urine WBC 0 SEEN, Ur Squamous Epith Cells 0 SEEN, Urine Bacteria 0 SEEN, Urine Mucus 0 SEEN 12/18/23 05:44: WBC 5.2, RBC 3.89 L, Hgb 12.5, Hct 35.6 L, MCV 91.5, MCH 32.1 H,MCHC 35.1, RDW Std Deviation 43.8, RDW Coeff of Shannon 13.1, Plt Count 203, MPV 9.9, Immature Gran % (Auto) 0.200, Neut % (Auto) 61.0, Lymph % (Auto) 24.3, Van Zandt% (Auto) 13.1 H, Eos % (Auto) 0.8, Baso % (Auto) 0.6, Absolute Neuts (auto) 3.2,Absolute Lymphs (auto) 1.26, Nucleated RBC % 0, Sodium 140, Potassium 3.4 L, Chloride 110 H, Carbon Dioxide 24.0, Anion Gap 6, BUN 12, Creatinine 0.76, EstimCreat Clear Calc 57.42, Est GFR (MDRD) Af Amer 96, Est GFR (MDRD) Non-Af 79, BUN/Creatinine Ratio 15.9, Glucose 87, Calcium 8.6, Phosphorus 4.2, Magnesium 2.0, Total Bilirubin 0.70, AST 19, ALT 7 L, Alkaline Phosphatase 55, Total Protein 6.2 L, Albumin 3.2, Globulin 3.0, Albumin/Globulin Ratio 1.1, TSH 1.96 Radiography Diagnostic Testing: Radiology Impression Brain MRI 12/18/23 00:31 IMPRESSION: No acute intracranial abnormality. Electronically Signed: Noam Flynn MD at 11:29 EDT , Rhythm Strip Rhythm Strip: Sinus Rhythm Rate: 79 Ectopy: None Physical Exam Narrative General: Alert, Oriented x3, Cooperative, No apparent distress HEENT: Atraumatic, PERRLA, EOMI, Normocephalic, left frontal hematoma ecchymosis Oral: Moist Mucosa Neck: Supple, No JVD Lungs: Diminished, Normal air movement, No rhonchi, No wheeze, No rales Cardiovascular: Regular rate, Regular Rhythm, Normal S1, Normal S2, No murmurs Abdomen: Soft, Non Tender, Non-Distended, No Hepato-splenomegaly Extremities: Trace edema, Capillary Refill Less than 3 Seconds Skin: No rashes, No breakdown Musculoskeletal: No Tenderness to Palpation of Joints or Extremities Neurological: No focal neurological deficits, Motor Exam 5/5 strength throughout, Sensory exam intact to light touch and pain Psych/Mental Status: anxious Assessment & Plan Assessment/Plan (1) Postconcussion syndrome: (2) Generalized weakness: (3) Unable to walk: (4) History of Parkinson's disease: (5) Chronic anticoagulation: (6) Factor V Leiden mutation: PLAN: Plan 1. Generalized weakness with postconcussion syndrome after mechanical fall on 12/03/2023/Parkinson's disease ? Head imaging is negative for bleed, she is on Eliquis for factor V Leiden and history of DVT ? Continue with IV fluids as well as Zofran for nausea ? MRI was unremarkable ? Unfortunately physical therapy was not able to evaluate her today because whenthey went in to see her she was done an MRI, will attempt evaluation tomorrow ? Continue with Sinemet, family states that they had to cut her down because of lightheadedness and dizziness but when they did tremors seem to get a little bitworse 2. Factor V Leiden ? She does have a history of a previous DVT ? Continue with Eliquis as there is no signs of intracranial bleeding on imaging 3. Essential HTN/paroxysmal A-fib ? Blood pressure stable ? Can resume as her home medications ? Continue with Eliquis ? Continue with statin 4. History of migraines/depression ? Stable ? Resume home medications 5. GERD ? Stable ? Continue with PPI DVT: Eliquis Charges/Coding Visit Charges Inpatient E&M: 70721 Subs Hosp L2 12/18/23 4421 <Electronically signed by Сергей Vega MD> Cosigner Signature (if applicable): CC: ~ Signed [facility] Work Phone: 1(545) 768-774503-30-2024 History and physical note Author Giuliano Forbes [facility] December 18, 2023 3:56am Note Date/Time December 18, 2023 12: 05am [facility] Medical Records Department [address] [place] [address] H&P Exam - Hospitalist 12/17/234 MR#: [id number] Acct: [id number] Name: VIOLA BENNETT Rep #:[id number] : 1950 73 From: Giuliano Francois DO PCP: Dr. Desmond Riojas MD Status:ADM I NO [place] [facility] [place] KV569-5 HPI - General General Date of Admission: 12/18/23 Date of Service: 12/17/23 Chief Complaint: Nausea, Vomiting, Generalized Weakness and Inability to Ambulate. HPI Narrative VIOLA BENNETT, is a 73 F with a past medical history of essential hypertension, hyperlipidemia, obesity; BMI 31.5 this admission, obstructive sleep apnea, Parkinson's disease; on Sinemet, history of CVA, paroxysmal atrial fibrillation,history of heterozygous Bbpgxm-K-Slfwna mutation; with previous DVT on Eliquis, chronic kidney disease; stage III, chronic anemia, migraine headaches; on Depakote and Emgality, history of syncope, scoliosis of lumbar spine, osteoarthritis; with chronic back pain and history of bilateral total knee replacement with left total hip replacement, history of cholecystectomy, depression, GERD, history of previous mechanical fall with cervical sprain and concussion (~2020) and recent fall approximately 2 weeks ago evaluated at this ER on December 03, 2023with diagnosis of mechanical fall striking the left side of her head and left knee while she was 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 She reports increasing dizziness with changes in position accompanied by severe nausea causing her to vomit numerous times throughout the day. She states she is having a bowel movement every 3 days and she denies urinary frequency, urgency or dysuria. Yesterday she went to see her neurologist who ordered a repeat CT scan of the head which showed only chronic involutional changes and nobleeding or other acute pathologic findings. She also denies any other recent falls, recent illness or recent medication changes other than that her Sinemet has been decreased from 4 times a day down to 3 times a day. The ER physician today suspects that this patient has clinical evidence of postconcussive syndrome after a recent mechanical fall; with intractable nausea, vomiting and disequilibrium causing generalized weakness with ambulatory dysfunction in the setting of chronic Parkinson's disease compounded by the need for Eliquis to treat her Ajchnf-A-Hrcllb mutation. She also had laboratory evidence of hypokalemia of 3.1 mmol/L present on admission and an MRI of her brain will be obtained in the morning due to her persistent symptoms with multiple negative CTscans of the head. She was then admitted to the general medical floor under observation status for stay that is expected to be less than 48 hours. [facility] Medical History Allergic rhinitis Anemia Anterolisthesis Anxiety Atrial fibrillation Back pain Cardiology follow-up encounter Cataract Cellulitis of left lower leg CKD (chronic kidney disease) CKD (chronic kidney disease) CPAP (continuous positive airway pressure) dependence Deep vein thrombosis Depression Depression DVT (deep venous thrombosis) Essential hypertension Factor 5 Leiden mutation, heterozygous Fall Fall as cause of accidental injury at home as place of occurrence Fall due to ice or snow Family history of coronary artery disease Family history of CVA Family history of hypertension Gastric reflux Gastroesophageal reflux disease Head injury without concussion or intracranial hemorrhage Hematoma of left lower extremity High cholesterol History of atrial fibrillation History of DVT (deep vein thrombosis) History of edema History of pain when walking History of stress test Hx of echocardiogram Hyperlipidemia Hypertension Hypertension Injury of back Injury of head and neck Insomnia 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 lower leg with 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 Long-term use of high-risk medication Malnourished Migraine Migraine headache Non-smoker Obesity, Class III, BMI 40-49.9 (morbid obesity) Obstructive sleep apnea Open wound Open wound of left lower leg with complication VALENTIN (obstructive sleep apnea) Osteoarthritis Osteopenia Paroxysmal atrial fibrillation Presbycusis of both ears Scoliosis of lumbar spine Segmental and somatic dysfunction of lumbar region Segmental and somatic dysfunction of pelvic region Segmental and somatic dysfunction of thoracic region Skin necrosis Syncope Traumatic ulcer of left lower extremity Vasovagal near syncope Vision problems Walker as ambulation aid Wears glasses Wears hearing aid Home Medications montelukast 10 mg tablet 10 mg PO DAILY Allergies 09/29/13 [History Last Taken 05/28/22] omeprazole 20 mg capsule,delayed release 20 mg PO DAILY GERD 09/29/13 [History Last Taken 05/28/22] amitriptyline 25 mg tablet 25 mg PO QHS Mood 10/25/19 [History Last Taken 05/27/22] galcanezumab-gnlm 120 mg/mL subcutaneous syringe (Emgality) 120 mg subcut QMONTHMigraines 10/25/19 [History Last Taken 05/23/22 08:00] multivitamin 1 tab PO DAILY Supplement 04/26/20 [History Last Taken 05/27/22] divalproex 500 mg tablet,extended release 24 hr (Depakote ER) 500 mg PO QHS headache 01/31/21 [History Last Taken 05/27/22] calcium carbonate 600 mg calcium (1,500 mg) tablet 600 mg PO DAILY supplement 11/24/21 [History Last Taken 05/28/22] ergocalciferol (vitamin D2) 1,250 mcg (50,000 unit) capsule 1,250 mcg PO DAILY supplement 11/24/21 [History Last Taken 05/27/22 07:00] ascorbic acid (vitamin C) 1,000 mg tablet,extended release (Vitamin C ER) 1,000 mg PO DAILY Supplement 06/01/22 [History Last Taken Unknown] acetaminophen 500 mg tablet 1,000 mg (2 x 500 mg) PO Q8H PRN PRN pain #1 TAB 06/12/22 [Rx Last Taken Unknown] apixaban 5 mg tablet 5 mg PO BID Blood thinner #60 tabs 06/12/22 [Rx Last Taken Unknown] citalopram 20 mg tablet 20 mg PO DAILY #30 tabs 06/12/22 [Rx Last Taken Unknown] verapamil 240 mg 24 hr capsule,extended release 240 mg PO DAILY BP #30 caps 06/12/22 [Rx Last Taken Unknown] ferrous sulfate 325 mg (65 mg iron) tablet 325 mg PO DAILY supplement 09/12/22 [History Last Taken Unknown] carbidopa 25 mg-levodopa 100 mg tablet 2 tab PO 4X/DAY 12/17/23 [History Last Taken Unknown] levocetirizine 5 mg tablet 5 mg PO DAILY 12/17/23 [History Last Taken Unknown] potassium chloride 20 mEq tablet,extended release(part/cryst) 20 meq PO DAILY 12/17/23 [History Last Taken Unknown] Allergy/AdvReac Type Severity Reaction Status Date / Time cefdinir Allergy Hives Verified 12/17/23 19:41 diphenhydramine HCl Allergy Hives Verified 12/17/23 19:41 [From Benadryl] Sulfa (Sulfonamide Allergy Hives Verified 12/17/23 19:41 Antibiotics) Family History Brother CAD (coronary artery disease) Mother CVA (cerebral vascular accident) CAD (coronary artery disease) Son Hypertension Daughter Hypertension Other Arthritis Cancer Diabetes Family history of CVA Family history of coronary artery disease Family history of hypertension Heart disease High cholesterol Kidney disease Thyroid disorder Surgical History History of bilateral knee replacement History of cholecystectomy History of incision and drainage History of left hip hemiarthroplasty History of total hysterectomy Hx of cataract extraction Social History household members: spouse housing: house number of children: 2 current occupational status: retired current occupational exposures/hazards: No pets and animals: No Smoking Status: Never smoker alcohol intake: never substance use type: does not use caffeine: Yes Type: tea what type of physical activity do you participate in: none seatbelt use: always do you feel safe at home: Yes additional social history: Does Not Take Aspirin Does Not Take Ibuprofen ROS ROS Narrative Review of systems: General: Patient denies fever or chills. HENT: Denies headache, denies stuffy nose, denies sore throat EYES: Denies changes in vision or discharge from eyes. Resp: Denies cough, denies shortness of breath Cardiac: Denies chest pain or palpitations GI: Patient admits to intractable nausea vomiting as per HPI but she denies abdominal pain, constipation or diarrhea. : Denies changes in urination Extremity: Denies swelling Musculoskeletal: Feels somewhat generally weak and unwell with inability to ambulate due to generalized weakness as per HPI. Neuro: Patient admits to dizziness made worse by head movement but she denies headache, paresthesias or other focal neurologic deficits. Heme: Denies any bleeding or bruising Skin: Denies rashes Psychiatric: Patient was notably anxious causing her to be treated with oral Ativan in the ER. Endocrine: No polyuria, polydipsia or polyphagia. The rest of the 14 point ROS was negative except for positives in HPI. Vital Signs Vital Signs Vital Signs: 12/17/23 19:37 12/17/23 21:36 12/17/23 22:42 Temperature 97.5 F L Temperature Source Temporal Pulse Rate 88 89 Pulse Rate [Lying] 88 Pulse Rate [Sitting (for 1 minute prior to obtaining)] 92 Pulse Rate [Standing (for 1 minute prior to obtaining)] 111 H Respiratory Rate 22 H 20 H Blood Pressure 136/72 H 114/76 Blood Pressure [Lying] 129/70 H Blood Pressure [Sitting (for 1 minute prior to obtaining)] 131/75 H Blood Pressure [Standing (for 1 minute prior to obtaining)] 161/69 H Blood Pressure Mean 93 88 Blood Pressure Mean [Lying] 89 Blood Pressure Mean [Sitting (for 1 minute prior to obtaining)] 93 Blood Pressure Mean [Standing (for 1 minute prior to obtaining)] 99 Pulse Ox 100 99 Oxygen Delivery Method Room Air Room Air 12/17/23 23:00 12/17/23 22:00 12/17/23 22:30 Temperature Temperature Source Pulse Rate 90 85 86 Pulse Rate [Lying] Pulse Rate [Sitting (for 1 minute prior to obtaining)] Pulse Rate [Standing (for 1 minute prior to obtaining)] Respiratory Rate 24 H 17 16 Blood Pressure 134/73 H 123/105 H 132/71 H Blood Pressure [Lying] Blood Pressure [Sitting (for 1 minute prior to obtaining)] Blood Pressure [Standing (for 1 minute prior to obtaining)] Blood Pressure Mean 93 112 88 Blood Pressure Mean [Lying] Blood Pressure Mean [Sitting (for 1 minute prior to obtaining)] Blood Pressure Mean [Standing (for 1 minute prior to obtaining)] Pulse Ox 100 100 100 Oxygen Delivery Method Room Air 12/17/23 23:00 12/17/23 23:22 Temperature 97.2 F L Temperature Source Pulse Rate 89 82 Pulse Rate [Lying] Pulse Rate [Sitting (for 1 minute prior to obtaining)] Pulse Rate [Standing (for 1 minute prior to obtaining)] Respiratory Rate 20 H 16 Blood Pressure 134/73 H 130/75 H Blood Pressure [Lying] Blood Pressure [Sitting (for 1 minute prior to obtaining)] Blood Pressure [Standing (for 1 minute prior to obtaining)] Blood Pressure Mean 91 93 Blood Pressure Mean [Lying] Blood Pressure Mean [Sitting (for 1 minute prior to obtaining)] Blood Pressure Mean [Standing (for 1 minute prior to obtaining)] Pulse Ox 100 97 Oxygen Delivery Method Weight Weight: 172 lb 6.424 oz Body Mass Index (BMI) 31.5 Physical Exam Const alert, oriented x3, average body habitus and well nourished Constitutional Narrative: Patient is notably anxious and is ill in appearance. General Appearance: cooperative HEENT normocephalic, head/scalp atraumatic and hearing grossly normal bilaterally HEENT Narrative: Mucous membranes dry. Eyes PERRL, EOMs intact bilaterally and conjunctivae normal Neck no lymphadenopathy and supple Resp normal respiratory effort, no retractions, no use of accessory muscles and clearto auscultation bilaterally Cardio regular rate and regular rhythm GI normal to inspection, nondistended, normoactive bowel sounds, soft to palpation,non-tender and non-distended Extremity normal to inspection and full ROM Skin Skin Narrative: Patient has mild bilateral lower extremity edema but no rash, jaundice or abscess. Neuro oriented x3, CN's II-XII intact bilaterally, moves all extremities and no focal motor deficits Sensorium / Orientation: awake, alert, oriented to person, oriented to place andoriented to time Speech: speech normal Psych Mood & Affect: anxious Results Medical Records Data Attestation: I reviewed the patient's medical records Lab / Micro Data Attestation: I reviewed the patient's lab results. 12/17/23 19:45 12/17/23 19:45 Labs: Laboratory Results - last 24 hr 12/17/23 19:45: WBC 5.0, RBC 4.45, Hgb 14.2, Hct 39.8, MCV 89.4, MCH 31.9, MCHC 35.7, RDW Std Deviation 41.8, RDW Coeff of Shannon 12.7, Plt Count 255, MPV 10.1, Immature Gran % (Auto) 0.200, Neut % (Auto) 64.1, Lymph % (Auto) 25.7, [place] % (Auto) 8.4, Eos % (Auto) 0.8, Baso % (Auto) 0.8, Absolute Neuts (auto) 3.2, Absolute Lymphs (auto) 1.29, Nucleated RBC % 0, Sodium 135 L, Potassium 3.1 L, Chloride 103, Carbon Dioxide 20.0 L, Anion Gap 12, BUN 16, Creatinine 1.03 H, Estim Creat Clear Calc 45.70, Est GFR (MDRD) Af Amer 67, Est GFR (MDRD) Non-Af 55 L, BUN/Creatinine Ratio 15.5, Glucose 164 H, Calcium 9.8, Total Bilirubin 0.80, AST 18, ALT < 6 L, Alkaline Phosphatase 70, Total Protein 7.6, Albumin 4.1, Globulin 3.5, Albumin/Globulin Ratio 1.2 12/17/23 20:50: Urine Color Yellow, Urine Clarity Clear, Urine pH 8.0, Ur Specific [place] 1.015, Urine Protein Negative, Urine Glucose (UA) Normal, UrineKetones 50 H, Urine Occult Blood Negative, Urine Nitrite Negative, Urine Bilirubin Negative, Urine Urobilinogen Normal, Ur Leukocyte Esterase Negative, Urine RBC 0 SEEN, Urine WBC 0 SEEN, Ur Squamous Epith Cells 0 SEEN, Urine Bacteria 0 SEEN, Urine Mucus 0 SEEN Rhythm Strip Rhythm Strip: Sinus Rhythm Rate: 79 Ectopy: None Assessment & Plan Assessment/Plan (1) Postconcussion syndrome: (2) Generalized weakness: (3) Unable to walk: (4) History of Parkinson's disease: (5) Chronic anticoagulation: (6) Factor V Leiden mutation: PLAN: Plan 1. Postconcussion syndrome; with intractable nausea and vomiting triggered by dizziness made worse with movement in this elderly patient who also has a history of Parkinson's disease; on Sinemet and history of CVA - Admit to generalmedical floor under observation status. Give gentle IV fluid hydration along with as needed Zofran for nausea. Give Antivert 25 mg p.o. every 6 hours as needed for vertigo/dizziness. We will also place scopolamine patch with patienthaving severe persistent symptoms of GI upset and intermittent dizziness that are uncontrolled. Finally, we will check MRI of the brain due to her persistentneurologic symptoms with multiple unremarkable CT scans of the head. 2. Generalized weakness with ambulatory dysfunction in the setting of chronic Parkinson's disease complicating #1 - PT/OT and case management to consult and treat on rounds in the a.m. for further recommendations regarding possible ECF placement for subacute rehabilitation with help appreciated in advance. She states she is interested in potentially transitioning to the TCU here if possible. 3. 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 4. History of heterozygous [id number] mutation; with previous DVT on Eliquis compounding #1 - #3 - Continue Eliquis for now but this agent may have to be discontinued after propensity for falling is not corrected soon as the risks of severe head trauma while on full anticoagulation will outweigh any potential benefit. 5. History of scoliosis of lumbar spine, osteoarthritis; with chronic back painand history of bilateral total knee replacement with Left total hip replacement adding to the pathology of #1 - #4 - Noted. All of these comorbidities add to patient's medical complexity and complicate prognosis. 6. Hypokalemia of 3.1 mmol/L present on admission - Give supplemental KCl and then recheck BMP in the a.m. to ensure improvement. 7. Migraine headaches; on Depakote and Emgality - Resume home regimen as previous. Check Depakote level. Patient denies active headaches at this time. 8. Essential hypertension - Continue home medications as previous plus give as needed IV hydralazine for systolic blood pressure greater than 160 mmHg. 9. Hyperlipidemia - Resume statin and check lipid profile. 10. Obesity; with BMI 31.5 this admission plus obstructive sleep apnea - Weightloss will be recommended. Check TSH. Continue nocturnal CPAP as previous. 11. Paroxysmal atrial fibrillation - Patient currently in normal sinus rhythm and on NOAC plus Verapamil which will be continued. 12. Chronic kidney disease; stage III - Noted. Gently volume resuscitate and recheck BMP daily to ensure continued stability. 13. Chronic anemia - Stable. 14. History of syncope - Noted. 15. History of cholecystectomy - Noted. 16. Depression - Resume home medications as previous plus give as needed Xanax for breakthrough symptoms. 17. GERD - Continue PPI. 18. DVT prophylaxis - Patient is already on Eliquis for #4 which will be continued. Total time: Approximately 85 minutes. Charges/Coding Visit Charges OBSV E&M: 73588 Observ/hosp same date L3 12/18/23 0356 <Electronically signed by Giuliano Gilliland DO> Cosigner Signature (if applicable): CC: Dr. Giuliano Gilliland DO; Dr. Desmond Riojas MD~ Signed [facility] Work Phone: [phone] Discharge summary Author Jared Green [facility] December 17, 2023 11:34pm Note Date/Time December 17, 2023 8:1 6pm [facility] Medical Records Department [address] [place] [address] Emergency Department Summary 12/17/23 MR#: [id number] Acct: [id number] Name: VIOLA BENNETT Rep #:[id number] : 1950 73 From: Jared Green MD PCP: Dr. Desmond Riojas MD Status:REG E R Location: ED HPI <Elvia Bazan RN - Last Filed: 12/17/23 23:26> History of Present Illness Chief Complaint: Nausea/Vomiting Informant: patient Onset/Context/Timing Onset: Days (12/13/2023) Context: Sudden Onset Timing: Continuous Current Severity: Moderate Maximum Severity: Severe Narrative Narrative: Patient is a 73-year-old female with past medical history significant for Parkinson's disease, paroxysmal A-fib, hypertension, recent concussion due to fall who presented via EMS with nausea and vomiting beginning 12/13/23. Patient fell 2 weeks ago hitting her head. She was seen in the ED. CT of the brain was negative at that time. Patient began with increased weakness in her legs and was seen by Dr. Riojas on 12/07/2023. She began with nausea on 12/13/2023 with 1 emesis per day since. However today she has vomited multiple times and unable to tolerate water. She reports dizziness with position changes. She denies diarrhea. However, she does endorse constipation with her last bowel movement on 12/14/23. She reports having normal bowel movements every 3 days. She does report urinary urgency. She is on Eliquis due to factor V Leiden. Within the last month she has decreased her Sinemet from 4 times a day to 3 times per day. She did contact Dr. Molina's office this week and had a repeat CT yesterday which shows chronic involutional changes. She denies any recent falls. Denies any recent travel. Prior similar symptoms: No Recent Illness/Hospitalization: No [facility] <Elvia Bazan RN - Last Filed: 12/17/23 23:26> [facility] Medical History Allergic rhinitis Anemia Anterolisthesis Anxiety Atrial fibrillation Back pain Cardiology follow-up encounter Cataract Cellulitis of left lower leg CKD (chronic kidney disease) CKD (chronic kidney disease) CPAP (continuous positive airway pressure) dependence Deep vein thrombosis Depression Depression DVT (deep venous thrombosis) Essential hypertension Factor 5 Leiden mutation, heterozygous Fall Fall as cause of accidental injury at home as place of occurrence Fall due to ice or snow Family history of coronary artery disease Family history of CVA Family history of hypertension Gastric reflux Gastroesophageal reflux disease Head injury without concussion or intracranial hemorrhage Hematoma of left lower extremity High cholesterol History of atrial fibrillation History of DVT (deep vein thrombosis) History of edema History of pain when walking History of stress test Hx of echocardiogram Hyperlipidemia Hypertension Hypertension Injury of back Injury of head and neck Insomnia 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 lower leg with 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 Long-term use of high-risk medication Malnourished Migraine Migraine headache Non-smoker Obesity, Class III, BMI 40-49.9 (morbid obesity) Obstructive sleep apnea Open wound Open wound of left lower leg with complication VALENTIN (obstructive sleep apnea) Osteoarthritis Osteopenia Paroxysmal atrial fibrillation Presbycusis of both ears Scoliosis of lumbar spine Segmental and somatic dysfunction of lumbar region Segmental and somatic dysfunction of pelvic region Segmental and somatic dysfunction of thoracic region Skin necrosis Syncope Traumatic ulcer of left lower extremity Vasovagal near syncope Vision problems Walker as ambulation aid Wears glasses Wears hearing aid Home Medications montelukast 10 mg tablet 10 mg PO DAILY Allergies 09/29/13 [History Last Taken 05/28/22] omeprazole 20 mg capsule,delayed release 20 mg PO DAILY GERD 09/29/13 [History Last Taken 05/28/22] amitriptyline 25 mg tablet 25 mg PO QHS Mood 10/25/19 [History Last Taken 05/27/22] galcanezumab-gnlm 120 mg/mL subcutaneous syringe (Emgality) 120 mg subcut QMONTHMigraines 10/25/19 [History Last Taken 05/23/22 08:00] multivitamin 1 tab PO DAILY Supplement 04/26/20 [History Last Taken 05/27/22] divalproex 500 mg tablet,extended release 24 hr (Depakote ER) 500 mg PO QHS headache 01/31/21 [History Last Taken 05/27/22] calcium carbonate 600 mg calcium (1,500 mg) tablet 600 mg PO DAILY supplement 11/24/21 [History Last Taken 05/28/22] ergocalciferol (vitamin D2) 1,250 mcg (50,000 unit) capsule 1,250 mcg PO DAILY supplement 11/24/21 [History Last Taken 05/27/22 07:00] ascorbic acid (vitamin C) 1,000 mg tablet,extended release (Vitamin C ER) 1,000 mg PO DAILY Supplement 06/01/22 [History Last Taken Unknown] acetaminophen 500 mg tablet 1,000 mg (2 x 500 mg) PO Q8H PRN PRN pain #1 TAB 06/12/22 [Rx Last Taken Unknown] apixaban 5 mg tablet 5 mg PO BID Blood thinner #60 tabs 06/12/22 [Rx Last Taken Unknown] citalopram 20 mg tablet 20 mg PO DAILY #30 tabs 06/12/22 [Rx Last Taken Unknown] verapamil 240 mg 24 hr capsule,extended release 240 mg PO DAILY BP #30 caps 06/12/22 [Rx Last Taken Unknown] ferrous sulfate 325 mg (65 mg iron) tablet 325 mg PO DAILY supplement 09/12/22 [History Last Taken Unknown] carbidopa 25 mg-levodopa 100 mg tablet 2 tab PO 4X/DAY 12/17/23 [History Last Taken Unknown] levocetirizine 5 mg tablet 5 mg PO DAILY 12/17/23 [History Last Taken Unknown] potassium chloride 20 mEq tablet,extended release(part/cryst) 20 meq PO DAILY 12/17/23 [History Last Taken Unknown] Allergy/AdvReac Type Severity Reaction Status Date / Time cefdinir Allergy Hives Verified 12/17/23 19:41 diphenhydramine HCl Allergy Hives Verified 12/17/23 19:41 [From Benadryl] Sulfa (Sulfonamide Allergy Hives Verified 12/17/23 19:41 Antibiotics) Family History Brother CAD (coronary artery disease) Mother CVA (cerebral vascular accident) CAD (coronary artery disease) Son Hypertension Daughter Hypertension Other Arthritis Cancer Diabetes Family history of CVA Family history of coronary artery disease Family history of hypertension Heart disease High cholesterol Kidney disease Thyroid disorder Surgical History History of bilateral knee replacement History of cholecystectomy History of incision and drainage History of left hip hemiarthroplasty History of total hysterectomy Hx of cataract extraction Social History household members: spouse housing: house number of children: 2 current occupational status: retired current occupational exposures/hazards: No pets and animals: No Smoking Status: Never smoker alcohol intake: never substance use type: does not use caffeine: Yes Type: tea what type of physical activity do you participate in: none seatbelt use: always do you feel safe at home: Yes additional social history: Does Not Take Aspirin Does Not Take Ibuprofen ROS <Elvia Bazan RN - Last Filed: 12/17/23 23:26> ROS ED Constitutional Constitutional ED: Denies chills, fever(s) or sweats Eyes Eyes: Denies change in vision ENT ENT ED: Denies ear pain, rhinorrhea or sore throat Cardiovascular Cardiovascular: Denies chest pain, orthopnea, palpitations or racing heartbeat Respiratory/Chest Respiratory/Chest: Denies cough, dyspnea or orthopnea Gastrointestinal Gastrointestinal: Reports nausea and vomiting; Denies abdominal pain, constipation or diarrhea Genitourinary Genitourinary ED: Reports other Details: urgency ; Denies dysuria or hematuria Musculoskeletal Musculoskeletal: Denies arthralgias or myalgias Integumentary Denies abscess, Abrasions or rash Neurologic Neurologic: Reports weakness; Denies headache(s) or paresthesias Psychiatric Psychiatric: Reports anxiety and depression Hematologic/Lymphatic Hematologic/Lymphatic: Reports systems reviewed and no addt'l complaints, exceptas documented EXAM <Elvia Bazan RN - Last Filed: 12/17/23 23:26> Physical Exam Narrative Exam Narrative: Patient awake, alert, ill-appearing, cooperative Const Vital Signs: 12/17/23 19:37 12/17/23 21:36 12/17/23 22:42 Temperature 97.5 F L Temperature Source Temporal Pulse Rate 88 89 Pulse Rate [Lying] 88 Pulse Rate [Sitting (for 1 minute prior to obtaining)] 92 Pulse Rate [Standing (for 1 minute prior to obtaining)] 111 H Respiratory Rate 22 H 20 H Blood Pressure 136/72 H 114/76 Blood Pressure [Lying] 129/70 H Blood Pressure [Sitting (for 1 minute prior to obtaining)] 131/75 H Blood Pressure [Standing (for 1 minute prior to obtaining)] 161/69 H Blood Pressure Mean 93 88 Blood Pressure Mean [Lying] 89 Blood Pressure Mean [Sitting (for 1 minute prior to obtaining)] 93 Blood Pressure Mean [Standing (for 1 minute prior to obtaining)] 99 Pulse Ox 100 99 Oxygen Delivery Method Room Air Room Air 12/17/23 23:00 12/17/23 22:00 12/17/23 22:30 Temperature Temperature Source Pulse Rate 90 85 86 Pulse Rate [Lying] Pulse Rate [Sitting (for 1 minute prior to obtaining)] Pulse Rate [Standing (for 1 minute prior to obtaining)] Respiratory Rate 24 H 17 16 Blood Pressure 134/73 H 123/105 H 132/71 H Blood Pressure [Lying] Blood Pressure [Sitting (for 1 minute prior to obtaining)] Blood Pressure [Standing (for 1 minute prior to obtaining)] Blood Pressure Mean 93 112 88 Blood Pressure Mean [Lying] Blood Pressure Mean [Sitting (for 1 minute prior to obtaining)] Blood Pressure Mean [Standing (for 1 minute prior to obtaining)] Pulse Ox 100 100 100 Oxygen Delivery Method Room Air 12/17/23 23:00 12/17/23 23:22 Temperature 97.2 F L Temperature Source Pulse Rate 89 82 Pulse Rate [Lying] Pulse Rate [Sitting (for 1 minute prior to obtaining)] Pulse Rate [Standing (for 1 minute prior to obtaining)] Respiratory Rate 20 H 16 Blood Pressure 134/73 H 130/75 H Blood Pressure [Lying] Blood Pressure [Sitting (for 1 minute prior to obtaining)] Blood Pressure [Standing (for 1 minute prior to obtaining)] Blood Pressure Mean 91 93 Blood Pressure Mean [Lying] Blood Pressure Mean [Sitting (for 1 minute prior to obtaining)] Blood Pressure Mean [Standing (for 1 minute prior to obtaining)] Pulse Ox 100 97 Oxygen Delivery Method Positive well nourished and well developed General Appearance ED: well developed HEENT Reports dry mucous membranes Mouth ED: Yes dry mucous membranes Mouth: dry mucous membranes Eyes PERRL and EOMs intact bilaterally Neck no lymphadenopathy, supple and no JVD Chest Wall inspection of chest normal and palpation of chest normal Resp normal respiratory effort and clear to auscultation bilaterally Auscultation: Negative for rales, rhonchi, wheezes or diminished lung sounds Cardio regular rate, regular rhythm, S1 normal heart sound and S2 normal heart sound GI normal to inspection, nondistended, normoactive bowel sounds and non-tender Auscultation: normoactive bowel sounds Palpation: soft Narrative: Patient reports urinary urgency. Denies dysuria and hematuria. Back/Spine no CVA tenderness Extremity normal to inspection Extremity Narrative: Mild bilateral lower extremity edema General Extremety ED: Yes edema General Extremity: edema Neuro oriented x3 Neuro Narrative: Hand grasp and pedal pushes weak bilaterally. Sensation intact. Sensorium / Orientation: alert Motor Exam: general weakness Psych Psych Narrative: Patient appears very anxious, tachypneic. Mood & Affect: anxious Skin no rashes or lesions noted, no wounds and skin turgor normal Skin Narrative: Resolving ecchymotic area noted to left forehead. <Dr. Jared Green MD - Last Filed: 12/17/23 23:25> Physical Exam Const Vital Signs: 12/17/23 19:37 12/17/23 21:36 12/17/23 22:42 Temperature 97.5 F L Temperature Source Temporal Pulse Rate 88 89 Pulse Rate [Lying] 88 Pulse Rate [Sitting (for 1 minute prior to obtaining)] 92 Pulse Rate [Standing (for 1 minute prior to obtaining)] 111 H Respiratory Rate 22 H 20 H Blood Pressure 136/72 H 114/76 Blood Pressure [Lying] 129/70 H Blood Pressure [Sitting (for 1 minute prior to obtaining)] 131/75 H Blood Pressure [Standing (for 1 minute prior to obtaining)] 161/69 H Blood Pressure Mean 93 88 Blood Pressure Mean [Lying] 89 Blood Pressure Mean [Sitting (for 1 minute prior to obtaining)] 93 Blood Pressure Mean [Standing (for 1 minute prior to obtaining)] 99 Pulse Ox 100 99 Oxygen Delivery Method Room Air Room Air 12/17/23 23:00 12/17/23 22:00 12/17/23 22:30 Temperature Temperature Source Pulse Rate 90 85 86 Pulse Rate [Lying] Pulse Rate [Sitting (for 1 minute prior to obtaining)] Pulse Rate [Standing (for 1 minute prior to obtaining)] Respiratory Rate 24 H 17 16 Blood Pressure 134/73 H 123/105 H 132/71 H Blood Pressure [Lying] Blood Pressure [Sitting (for 1 minute prior to obtaining)] Blood Pressure [Standing (for 1 minute prior to obtaining)] Blood Pressure Mean 93 112 88 Blood Pressure Mean [Lying] Blood Pressure Mean [Sitting (for 1 minute prior to obtaining)] Blood Pressure Mean [Standing (for 1 minute prior to obtaining)] Pulse Ox 100 100 100 Oxygen Delivery Method Room Air 12/17/23 23:00 12/17/23 23:22 Temperature 97.2 F L Temperature Source Pulse Rate 89 82 Pulse Rate [Lying] Pulse Rate [Sitting (for 1 minute prior to obtaining)] Pulse Rate [Standing (for 1 minute prior to obtaining)] Respiratory Rate 20 H 16 Blood Pressure 134/73 H 130/75 H Blood Pressure [Lying] Blood Pressure [Sitting (for 1 minute prior to obtaining)] Blood Pressure [Standing (for 1 minute prior to obtaining)] Blood Pressure Mean 91 93 Blood Pressure Mean [Lying] Blood Pressure Mean [Sitting (for 1 minute prior to obtaining)] Blood Pressure Mean [Standing (for 1 minute prior to obtaining)] Pulse Ox 100 97 Oxygen Delivery Method [facility] <Elvia Bazan RN - Last Filed: 12/17/23 23:26> [facility] Narrative Medical decision making narrative: IV line initiated. Labwork obtained to evaluate for leukocytosis, anemia, and electrolyte derangement. Urinalysis obtained via straight cath to evaluate for infection/hematuria. EKG obtained to evaluate for cardiac arrhythmia/ischemia. Zofran IV ordered for nausea and vomiting. Normal saline 500 mL bolus ordered due to concerns for dehydration as evidenced by dry mucous membranes and vomiting. I have personally performed a face to face assessment of the patient and have reviewed the JOSE Note. I performed a substantive portion of the visit including all aspects of the following. My carter findings include: History is 73-year-old female fell struck the left side of her head while walking into a building about 2 weeks ago. No LOC. She is on Eliquis due to factor V Leiden. She had a CAT scan evaluation that day that was negative. [facility]ada CAT scan yesterday that was negative. Today she is having some nausea and vomiting. Shaking. But not seizure activity. Patient denies any headache currently. Exam is [73-year-old female vital signs are stable afebrile. Pulse ox 100% room air no signs hypoxia. H EENT exam pupils are reactive light. Left side of her forehead there is a bruise that is resolved. There is dry reactive light. Mouth unremarkable. Normal speech. Neck nontender. Lungs clear. Heart regular rhythm no murmur. Rate about 80. Chest wall and ribs nontender. Abdomen soft nontender. Nondistended normal bowel sounds no peritoneal signs. No right upper or right lower quadrant tenderness. No hernia or distention. No obstruction. Moving all 4 extremities. Nontender no deformity. Back nontender. Neurologically. She is awake. She is answering questions following commands. No focal motor deficits.] Medical Decision Making [patient with was treated with nausea by mouth by squad. She will be given IV Zofran. Screening labs. I do not think she needs repeat imaging because she has had 2 CAT scans already for this head injury. She denies any headache at this time. She is unremarkable neurologic exam. Some of this may be secondary to anxiety. She might also have a postconcussive syndrome.] Other additions or changes: [None] History & Record Review Discussion w/independent historian: Patient and Family Lab Data Labs: Laboratory Results - last 24 hr 12/17/23 12/17/23 19:45 20:50 WBC 5.0 RBC 4.45 Hgb 14.2 Hct 39.8 MCV 89.4 MCH 31.9 MCHC 35.7 RDW Std Deviation 41.8 RDW Coeff of Shannon 12.7 Plt Count 255 MPV 10.1 Immature Gran % (Auto) 0.200 Neut % (Auto) 64.1 Lymph % (Auto) 25.7 [place] % (Auto) 8.4 Eos % (Auto) 0.8 Baso % (Auto) 0.8 Absolute Neuts (auto) 3.2 Absolute Lymphs (auto) 1.29 Nucleated RBC % 0 Sodium 135 L Potassium 3.1 L Chloride 103 Carbon Dioxide 20.0 L Anion Gap 12 BUN 16 Creatinine 1.03 H Estim Creat Clear Calc 45.70 Est GFR (MDRD) Af Amer 67 Est GFR (MDRD) Non-Af 55 L BUN/Creatinine Ratio 15.5 Glucose 164 H Calcium 9.8 Total Bilirubin 0.80 AST 18 ALT < 6 L Alkaline Phosphatase 70 Total Protein 7.6 Albumin 4.1 Globulin 3.5 Albumin/Globulin Ratio 1.2 Urine Color Yellow Urine Clarity Clear Urine pH 8.0 Ur Specific [place] 1.015 Urine Protein Negative Urine Glucose (UA) Normal Urine Ketones 50 H Urine Occult Blood Negative Urine Nitrite Negative Urine Bilirubin Negative Urine Urobilinogen Normal Ur Leukocyte Esterase Negative Urine RBC 0 SEEN Urine WBC 0 SEEN Ur Squamous Epith Cells 0 SEEN Urine Bacteria 0 SEEN Urine Mucus 0 SEEN Differential Diagnosis Abdominal Pain: UTI Differential Diagnosis: Gastritis Management Discussion w/another healthcare provider: Other (Dr. Green, ED provider) Treatment and Re-Evaluation :: Lab work reviewed. CBC shows normal white count 5.0 with normal neutrophils 64.1%. Hemoglobin 14.2. Platelets 255. Chemistry shows sodium of 135, potassium 3.1, creatinine 1.03, and glucose 164. Urinalysis negative for UTI. Upon reevaluation, patient sitting in bed with daughter at bedside. Patient is awake and alert. She reports nausea has resolved. However, she does continue to feel anxious and tachypneic. Ativan 0.5 mg ordered p.o. After receiving Ativan, patient remains anxious and tearful. Discussed lab work with patient and daughter. Patient remains very concerned about why she is having these episodes of shaking and rapid breathing. Orthostatic vitals obtained which showed slightly increased heart rate. Nursing staff attempted to ambulate patient. They were unable to get patient to a standing position with assist x 2. Due to patient inability to ambulate, we will plan for admission. Dr. Green spoke with hospitalist who will admit the patient. Patient and daughter agreeable with plan. <Dr. Jared Green MD - Last Filed: 12/17/23 23:25> [facility] MDM Narrative Medical decision making narrative: IV line initiated. Labwork obtained to evaluate for leukocytosis, anemia, and electrolyte derangement. Urinalysis obtained via straight cath to evaluate for infection/hematuria. EKG obtained to evaluate for cardiac arrhythmia/ischemia. Zofran IV ordered for nausea and vomiting. Normal saline 500 mL bolus ordered due to concerns for dehydration as evidenced by dry mucous membranes and vomiting. I have personally performed a face to face assessment of the patient and have reviewed the JOSE Note. I performed a substantive portion of the visit including all aspects of the following. My carter findings include: History is 73-year-old female fell struck the left side of her head while walking into a building about 2 weeks ago. No LOC. She is on Eliquis due to factor V Leiden. She had a CAT scan evaluation that day that was negative. Had a CAT scan yesterday that was negative. Today she is having some nausea and vomiting. Shaking. But not seizure activity. Patient denies any headache currently. Exam is [73-year-old female vital signs are stable afebrile. Pulse ox 100% room air no signs hypoxia. H EENT exam pupils are reactive light. Left side of her forehead there is a bruise that is resolved. There is dry reactive light. Mouth unremarkable. Normal speech. Neck nontender. Lungs clear. Heart regular rhythm no murmur. Rate about 80. Chest wall and ribs nontender. Abdomen soft nontender. Nondistended normal bowel sounds no peritoneal signs. No right upper or right lower quadrant tenderness. No hernia or distention. No obstruction. Moving all 4 extremities. Nontender no deformity. Back nontender. Neurologically. She is awake. She is answering questions following commands. No focal motor deficits.] Medical Decision Making [patient with was treated with nausea by mouth by squad. She will be given IV Zofran. Screening labs. I do not think she needs repeat imaging because she has had 2 CAT scans already for this head injury. She denies any headache at this time. She is unremarkable neurologic exam. Some of this may be secondary to anxiety. She might also have a postconcussive syndrome.] Other additions or changes: [Multiple repeat exams. The patient definitely has anxiety. Nurses tried to ambulate. She was too weak to ambulate. I will speak to the hospitalist about admission. I do not think she needs repeat image she literally had a CAT scan yesterday.] Lab Data Attestation: I reviewed the patient's lab results. Lab results narrative: CBC shows a normal white count of 5. H&H of 14 and 39. Platelets 255. Electrolytes show a sodium 135. Potassium of 3.1. A gap of 12. BUN and creatinine is 16 and 1. Glucose 164. Liver enzymes are normal. Labs: Laboratory Results - last 24 hr 12/17/23 12/17/23 19:45 20:50 WBC 5.0 RBC 4.45 Hgb 14.2 Hct 39.8 MCV 89.4 MCH 31.9 MCHC 35.7 RDW Std Deviation 41.8 RDW Coeff of [place] 12.7 Plt Count 255 MPV 10.1 Immature Gran % (Auto) 0.200 Neut % (Auto) 64.1 Lymph % (Auto) 25.7 [place] % (Auto) 8.4 Eos % (Auto) 0.8 Baso % (Auto) 0.8 Absolute Neuts (auto) 3.2 Absolute Lymphs (auto) 1.29 Nucleated RBC % 0 Sodium 135 L Potassium 3.1 L Chloride 103 Carbon Dioxide 20.0 L Anion Gap 12 BUN 16 Creatinine 1.03 H Estim Creat Clear Calc 45.70 Est GFR (MDRD) Af Amer 67 Est GFR (MDRD) Non-Af 55 L BUN/Creatinine Ratio 15.5 Glucose 164 H Calcium 9.8 Total Bilirubin 0.80 AST 18 ALT < 6 L Alkaline Phosphatase 70 Total Protein 7.6 Albumin 4.1 Globulin 3.5 Albumin/Globulin Ratio 1.2 Urine Color Yellow Urine Clarity Clear Urine pH 8.0 Ur Specific [place] 1.015 Urine Protein Negative Urine Glucose (UA) Normal Urine Ketones 50 H Urine Occult Blood Negative Urine Nitrite Negative Urine Bilirubin Negative Urine Urobilinogen Normal Ur Leukocyte Esterase Negative Urine RBC 0 SEEN Urine WBC 0 SEEN Ur Squamous Epith Cells 0 SEEN Urine Bacteria 0 SEEN Urine Mucus 0 SEEN Rhythm Strip Rhythm Strip: Sinus Rhythm Rate: 79 Ectopy: None EKG Initial EKG: Attestation: I personally reviewed and interpreted this EKG as follows: Interpretation: Sinus Rhythm and No Acute Injury Pattern Comments: Normal sinus rhythm rate of 79 no acute signs of IL or ischemia. Discharge Plan Dx/Rx/DC Orders Clinical Impression: Concussion, Anxiety, Fall, History of Parkinson's disease, History of atrial fibrillation, Chronic anticoagulation, Unable to walk Disposition Disposition: Acute Care [facility] What to do if you have Problems For any increased pain, shortness of breath, bleeding, nausea or vomiting, chestpain, or any unexpected problems, contact your Primary Care Provider. Call [facility] ([phone]) or report to the closest Emergency Room. Call 911 if necessary. 12/17/23 [id number] <Electronically signed by Jared Green MD> Cosigner Signature (if applicable): 12/17/23 [id number] <Electronically signed by Elvia Bazan RN> CC: Dr. Desmond Riojas MD ~ Signed [facility] Work Phone: [phone] Discharge summary Author Jared Green [facility] December 17, 2023 11:34pm Note Date/Time December 17, 2023 8:1 6pm [facility] Medical Records Department [address] [place] [address] Emergency Department Summary 12/17/23 MR#: [id number] Acct: [id number] Name: VIOLA BENNETT Rep #:[id number] : 1950 73 From: Jared Green MD PCP: Dr. Desmodn Riojas MD Status:REG E R Location: ED HPI <Elvia Bazan RN - Last Filed: 12/17/23 23:26> History of Present Illness Chief Complaint: Nausea/Vomiting Informant: patient Onset/Context/Timing Onset: Days (12/13/2023) Context: Sudden Onset Timing: Continuous Current Severity: Moderate Maximum Severity: Severe Narrative Narrative: Patient is a 73-year-old female with past medical history significant for Parkinson's disease, paroxysmal A-fib, hypertension, recent concussion due to fall who presented via EMS with nausea and vomiting beginning 12/13/23. Patient fell 2 weeks ago hitting her head. She was seen in the ED. CT of the brain was negative at that time. Patient began with increased weakness in her legs and was seen by Dr. Riojas on 12/07/2023. She began with nausea on 12/13/2023 with 1 emesis per day since. However today she has vomited multiple times and unable to tolerate water. She reports dizziness with position changes. She denies diarrhea. However, she does endorse constipation with her last bowel movement on 12/14/23. She reports having normal bowel movements every 3 days. She does report urinary urgency. She is on Eliquis due to factor V Leiden. Within the last month she has decreased her Sinemet from 4 times a day to 3 times per day. She did contact Dr. Molina's office this week and had a repeat CT yesterday which shows chronic involutional changes. She denies any recent falls. Denies any recent travel. Prior similar symptoms: No Recent Illness/Hospitalization: No PFSH <Elvia Bazan RN - Last Filed: 12/17/23 23:26> [facility] Medical History Allergic rhinitis Anemia Anterolisthesis Anxiety Atrial fibrillation Back pain Cardiology follow-up encounter Cataract Cellulitis of left lower leg CKD (chronic kidney disease) CKD (chronic kidney disease) CPAP (continuous positive airway pressure) dependence Deep vein thrombosis Depression Depression DVT (deep venous thrombosis) Essential hypertension Factor 5 Leiden mutation, heterozygous Fall Fall as cause of accidental injury at home as place of occurrence Fall due to ice or snow Family history of coronary artery disease Family history of CVA Family history of hypertension Gastric reflux Gastroesophageal reflux disease Head injury without concussion or intracranial hemorrhage Hematoma of left lower extremity High cholesterol History of atrial fibrillation History of DVT (deep vein thrombosis) History of edema History of pain when walking History of stress test Hx of echocardiogram Hyperlipidemia Hypertension Hypertension Injury of back Injury of head and neck Insomnia 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 lower leg with 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 Long-term use of high-risk medication Malnourished Migraine Migraine headache Non-smoker Obesity, Class III, BMI 40-49.9 (morbid obesity) Obstructive sleep apnea Open wound Open wound of left lower leg with complication VALENTIN (obstructive sleep apnea) Osteoarthritis Osteopenia Paroxysmal atrial fibrillation Presbycusis of both ears Scoliosis of lumbar spine Segmental and somatic dysfunction of lumbar region Segmental and somatic dysfunction of pelvic region Segmental and somatic dysfunction of thoracic region Skin necrosis Syncope Traumatic ulcer of left lower extremity Vasovagal near syncope Vision problems Walker as ambulation aid Wears glasses Wears hearing aid Home Medications montelukast 10 mg tablet 10 mg PO DAILY Allergies 09/29/13 [History Last Taken 05/28/22] omeprazole 20 mg capsule,delayed release 20 mg PO DAILY GERD 09/29/13 [History Last Taken 05/28/22] amitriptyline 25 mg tablet 25 mg PO QHS Mood 10/25/19 [History Last Taken 05/27/22] galcanezumab-gnlm 120 mg/mL subcutaneous syringe (Emgality) 120 mg subcut QMONTHMigraines 10/25/19 [History Last Taken 05/23/22 08:00] multivitamin 1 tab PO DAILY Supplement 04/26/20 [History Last Taken 05/27/22] divalproex 500 mg tablet,extended release 24 hr (Depakote ER) 500 mg PO QHS headache 01/31/21 [History Last Taken 05/27/22] calcium carbonate 600 mg calcium (1,500 mg) tablet 600 mg PO DAILY supplement 11/24/21 [History Last Taken 05/28/22] ergocalciferol (vitamin D2) 1,250 mcg (50,000 unit) capsule 1,250 mcg PO DAILY supplement 11/24/21 [History Last Taken 05/27/22 07:00] ascorbic acid (vitamin C) 1,000 mg tablet,extended release (Vitamin C ER) 1,000 mg PO DAILY Supplement 06/01/22 [History Last Taken Unknown] acetaminophen 500 mg tablet 1,000 mg (2 x 500 mg) PO Q8H PRN PRN pain #1 TAB 06/12/22 [Rx Last Taken Unknown] apixaban 5 mg tablet 5 mg PO BID Blood thinner #60 tabs 06/12/22 [Rx Last Taken Unknown] citalopram 20 mg tablet 20 mg PO DAILY #30 tabs 06/12/22 [Rx Last Taken Unknown] verapamil 240 mg 24 hr capsule,extended release 240 mg PO DAILY BP #30 caps 06/12/22 [Rx Last Taken Unknown] ferrous sulfate 325 mg (65 mg iron) tablet 325 mg PO DAILY supplement 09/12/22 [History Last Taken Unknown] carbidopa 25 mg-levodopa 100 mg tablet 2 tab PO 4X/DAY 12/17/23 [History Last Taken Unknown] levocetirizine 5 mg tablet 5 mg PO DAILY 12/17/23 [History Last Taken Unknown] potassium chloride 20 mEq tablet,extended release(part/cryst) 20 meq PO DAILY 12/17/23 [History Last Taken Unknown] Allergy/AdvReac Type Severity Reaction Status Date / Time cefdinir Allergy Hives Verified 12/17/23 19:41 diphenhydramine HCl Allergy Hives Verified 12/17/23 19:41 [From Benadryl] Sulfa (Sulfonamide Allergy Hives Verified 12/17/23 19:41 Antibiotics) Family History Brother CAD (coronary artery disease) Mother CVA (cerebral vascular accident) CAD (coronary artery disease) Son Hypertension Daughter Hypertension Other Arthritis Cancer Diabetes Family history of CVA Family history of coronary artery disease Family history of hypertension Heart disease High cholesterol Kidney disease Thyroid disorder Surgical History History of bilateral knee replacement History of cholecystectomy History of incision and drainage History of left hip hemiarthroplasty History of total hysterectomy Hx of cataract extraction Social History household members: spouse housing: house number of children: 2 current occupational status: retired current occupational exposures/hazards: No pets and animals: No Smoking Status: Never smoker alcohol intake: never substance use type: does not use caffeine: Yes Type: tea what type of physical activity do you participate in: none seatbelt use: always do you feel safe at home: Yes additional social history: Does Not Take Aspirin Does Not Take Ibuprofen ROS <Elvia Bazan RN - Last Filed: 12/17/23 23:26> ROS ED Constitutional Constitutional ED: Denies chills, fever(s) or sweats Eyes Eyes: Denies change in vision ENT ENT ED: Denies ear pain, rhinorrhea or sore throat Cardiovascular Cardiovascular: Denies chest pain, orthopnea, palpitations or racing heartbeat Respiratory/Chest Respiratory/Chest: Denies cough, dyspnea or orthopnea Gastrointestinal Gastrointestinal: Reports nausea and vomiting; Denies abdominal pain, constipation or diarrhea Genitourinary Genitourinary ED: Reports other Details: urgency ; Denies dysuria or hematuria Musculoskeletal Musculoskeletal: Denies arthralgias or myalgias Integumentary Denies abscess, Abrasions or rash Neurologic Neurologic: Reports weakness; Denies headache(s) or paresthesias Psychiatric Psychiatric: Reports anxiety and depression Hematologic/Lymphatic Hematologic/Lymphatic: Reports systems reviewed and no addt'l complaints, exceptas documented EXAM <Elvia Bazan RN - Last Filed: 12/17/23 23:26> Physical Exam Narrative Exam Narrative: Patient awake, alert, ill-appearing, cooperative Const Vital Signs: 12/17/23 19:37 12/17/23 21:36 12/17/23 22:42 Temperature 97.5 F L Temperature Source Temporal Pulse Rate 88 89 Pulse Rate [Lying] 88 Pulse Rate [Sitting (for 1 minute prior to obtaining)] 92 Pulse Rate [Standing (for 1 minute prior to obtaining)] 111 H Respiratory Rate 22 H 20 H Blood Pressure 136/72 H 114/76 Blood Pressure [Lying] 129/70 H Blood Pressure [Sitting (for 1 minute prior to obtaining)] 131/75 H Blood Pressure [Standing (for 1 minute prior to obtaining)] 161/69 H Blood Pressure Mean 93 88 Blood Pressure Mean [Lying] 89 Blood Pressure Mean [Sitting (for 1 minute prior to obtaining)] 93 Blood Pressure Mean [Standing (for 1 minute prior to obtaining)] 99 Pulse Ox 100 99 Oxygen Delivery Method Room Air Room Air 12/17/23 23:00 12/17/23 22:00 12/17/23 22:30 Temperature Temperature Source Pulse Rate 90 85 86 Pulse Rate [Lying] Pulse Rate [Sitting (for 1 minute prior to obtaining)] Pulse Rate [Standing (for 1 minute prior to obtaining)] Respiratory Rate 24 H 17 16 Blood Pressure 134/73 H 123/105 H 132/71 H Blood Pressure [Lying] Blood Pressure [Sitting (for 1 minute prior to obtaining)] Blood Pressure [Standing (for 1 minute prior to obtaining)] Blood Pressure Mean 93 112 88 Blood Pressure Mean [Lying] Blood Pressure Mean [Sitting (for 1 minute prior to obtaining)] Blood Pressure Mean [Standing (for 1 minute prior to obtaining)] Pulse Ox 100 100 100 Oxygen Delivery Method Room Air 12/17/23 23:00 12/17/23 23:22 Temperature 97.2 F L Temperature Source Pulse Rate 89 82 Pulse Rate [Lying] Pulse Rate [Sitting (for 1 minute prior to obtaining)] Pulse Rate [Standing (for 1 minute prior to obtaining)] Respiratory Rate 20 H 16 Blood Pressure 134/73 H 130/75 H Blood Pressure [Lying] Blood Pressure [Sitting (for 1 minute prior to obtaining)] Blood Pressure [Standing (for 1 minute prior to obtaining)] Blood Pressure Mean 91 93 Blood Pressure Mean [Lying] Blood Pressure Mean [Sitting (for 1 minute prior to obtaining)] Blood Pressure Mean [Standing (for 1 minute prior to obtaining)] Pulse Ox 100 97 Oxygen Delivery Method Positive well nourished and well developed General Appearance ED: well developed HEENT Reports dry mucous membranes Mouth ED: Yes dry mucous membranes Mouth: dry mucous membranes Eyes PERRL and EOMs intact bilaterally Neck no lymphadenopathy, supple and no JVD Chest Wall inspection of chest normal and palpation of chest normal Resp normal respiratory effort and clear to auscultation bilaterally Auscultation: Negative for rales, rhonchi, wheezes or diminished lung sounds Cardio regular rate, regular rhythm, S1 normal heart sound and S2 normal heart sound GI normal to inspection, nondistended, normoactive bowel sounds and non-tender Auscultation: normoactive bowel sounds Palpation: soft Narrative: Patient reports urinary urgency. Denies dysuria and hematuria. Back/Spine no CVA tenderness Extremity normal to inspection Extremity Narrative: Mild bilateral lower extremity edema General Extremety ED: Yes edema General Extremity: edema Neuro oriented x3 Neuro Narrative: Hand grasp and pedal pushes weak bilaterally. Sensation intact. Sensorium / Orientation: alert Motor Exam: general weakness Psych Psych Narrative: Patient appears very anxious, tachypneic. Mood & Affect: anxious Skin no rashes or lesions noted, no wounds and skin turgor normal Skin Narrative: Resolving ecchymotic area noted to left forehead. <Dr. Jared Green MD - Last Filed: 12/17/23 23:25> Physical Exam Const Vital Signs: 12/17/23 19:37 12/17/23 21:36 12/17/23 22:42 Temperature 97.5 F L Temperature Source Temporal Pulse Rate 88 89 Pulse Rate [Lying] 88 Pulse Rate [Sitting (for 1 minute prior to obtaining)] 92 Pulse Rate [Standing (for 1 minute prior to obtaining)] 111 H Respiratory Rate 22 H 20 H Blood Pressure 136/72 H 114/76 Blood Pressure [Lying] 129/70 H Blood Pressure [Sitting (for 1 minute prior to obtaining)] 131/75 H Blood Pressure [Standing (for 1 minute prior to obtaining)] 161/69 H Blood Pressure Mean 93 88 Blood Pressure Mean [Lying] 89 Blood Pressure Mean [Sitting (for 1 minute prior to obtaining)] 93 Blood Pressure Mean [Standing (for 1 minute prior to obtaining)] 99 Pulse Ox 100 99 Oxygen Delivery Method Room Air Room Air 12/17/23 23:00 12/17/23 22:00 12/17/23 22:30 Temperature Temperature Source Pulse Rate 90 85 86 Pulse Rate [Lying] Pulse Rate [Sitting (for 1 minute prior to obtaining)] Pulse Rate [Standing (for 1 minute prior to obtaining)] Respiratory Rate 24 H 17 16 Blood Pressure 134/73 H 123/105 H 132/71 H Blood Pressure [Lying] Blood Pressure [Sitting (for 1 minute prior to obtaining)] Blood Pressure [Standing (for 1 minute prior to obtaining)] Blood Pressure Mean 93 112 88 Blood Pressure Mean [Lying] Blood Pressure Mean [Sitting (for 1 minute prior to obtaining)] Blood Pressure Mean [Standing (for 1 minute prior to obtaining)] Pulse Ox 100 100 100 Oxygen Delivery Method Room Air 12/17/23 23:00 12/17/23 23:22 Temperature 97.2 F L Temperature Source Pulse Rate 89 82 Pulse Rate [Lying] Pulse Rate [Sitting (for 1 minute prior to obtaining)] Pulse Rate [Standing (for 1 minute prior to obtaining)] Respiratory Rate 20 H 16 Blood Pressure 134/73 H 130/75 H Blood Pressure [Lying] Blood Pressure [Sitting (for 1 minute prior to obtaining)] Blood Pressure [Standing (for 1 minute prior to obtaining)] Blood Pressure Mean 91 93 Blood Pressure Mean [Lying] Blood Pressure Mean [Sitting (for 1 minute prior to obtaining)] Blood Pressure Mean [Standing (for 1 minute prior to obtaining)] Pulse Ox 100 97 Oxygen Delivery Method [facility] <Elvia Bazan RN - Last Filed: 12/17/23 23:26> [facility] Narrative Medical decision making narrative: IV line initiated. Labwork obtained to evaluate for leukocytosis, anemia, and electrolyte derangement. Urinalysis obtained via straight cath to evaluate for infection/hematuria. EKG obtained to evaluate for cardiac arrhythmia/ischemia. Zofran IV ordered for nausea and vomiting. Normal saline 500 mL bolus ordered due to concerns for dehydration as evidenced by dry mucous membranes and vomiting. I have personally performed a face to face assessment of the patient and have reviewed the JOSE Note. I performed a substantive portion of the visit including all aspects of the following. My carter findings include: History is 73-year-old female fell struck the left side of her head while walking into a building about 2 weeks ago. No LOC. She is on Eliquis due to factor V Leiden. She had a CAT scan evaluation that day that was negative. [place] CAT scan yesterday that was negative. Today she is having some nausea and vomiting. Shaking. But not seizure activity. Patient denies any headache currently. Exam is [73-year-old female vital signs are stable afebrile. Pulse ox 100% room air no signs hypoxia. H EENT exam pupils are reactive light. Left side of her forehead there is a bruise that is resolved. There is dry reactive light. Mouth unremarkable. Normal speech. Neck nontender. Lungs clear. Heart regular rhythm no murmur. Rate about 80. Chest wall and ribs nontender. Abdomen soft nontender. Nondistended normal bowel sounds no peritoneal signs. No right upper or right lower quadrant tenderness. No hernia or distention. No obstruction. Moving all 4 extremities. Nontender no deformity. Back nontender. Neurologically. She is awake. She is answering questions following commands. No focal motor deficits.] Medical Decision Making [patient with was treated with nausea by mouth by squad. She will be given IV Zofran. Screening labs. I do not think she needs repeat imaging because she has had 2 CAT scans already for this head injury. She denies any headache at this time. She is unremarkable neurologic exam. Some of this may be secondary to anxiety. She might also have a postconcussive syndrome.] Other additions or changes: [None] History & Record Review Discussion w/independent historian: Patient and Family Lab Data Labs: Laboratory Results - last 24 hr 12/17/23 12/17/23 19:45 20:50 WBC 5.0 RBC 4.45 Hgb 14.2 Hct 39.8 MCV 89.4 MCH 31.9 MCHC 35.7 RDW Std Deviation 41.8 RDW Coeff of [place] 12.7 Plt Count 255 MPV 10.1 Immature Gran % (Auto) 0.200 Neut % (Auto) 64.1 Lymph % (Auto) 25.7 [place] % (Auto) 8.4 Eos % (Auto) 0.8 Baso % (Auto) 0.8 Absolute Neuts (auto) 3.2 Absolute Lymphs (auto) 1.29 Nucleated RBC % 0 Sodium 135 L Potassium 3.1 L Chloride 103 Carbon Dioxide 20.0 L Anion Gap 12 BUN 16 Creatinine 1.03 H Estim Creat Clear Calc 45.70 Est GFR (MDRD) Af Amer 67 Est GFR (MDRD) Non-Af 55 L BUN/Creatinine Ratio 15.5 Glucose 164 H Calcium 9.8 Total Bilirubin 0.80 AST 18 ALT < 6 L Alkaline Phosphatase 70 Total Protein 7.6 Albumin 4.1 Globulin 3.5 Albumin/Globulin Ratio 1.2 Urine Color Yellow Urine Clarity Clear Urine pH 8.0 Ur Specific [place] 1.015 Urine Protein Negative Urine Glucose (UA) Normal Urine Ketones 50 H Urine Occult Blood Negative Urine Nitrite Negative Urine Bilirubin Negative Urine Urobilinogen Normal Ur Leukocyte Esterase Negative Urine RBC 0 SEEN Urine WBC 0 SEEN Ur Squamous Epith Cells 0 SEEN Urine Bacteria 0 SEEN Urine Mucus 0 SEEN Differential Diagnosis Abdominal Pain: UTI Differential Diagnosis: Gastritis Management Discussion w/another healthcare provider: Other (Dr. Green, ED provider) Treatment and Re-Evaluation :: Lab work reviewed. CBC shows normal white count 5.0 with normal neutrophils 64.1%. Hemoglobin 14.2. Platelets 255. Chemistry shows sodium of 135, potassium 3.1, creatinine 1.03, and glucose 164. Urinalysis negative for UTI. Upon reevaluation, patient sitting in bed with daughter at bedside. Patient is awake and alert. She reports nausea has resolved. However, she does continue to feel anxious and tachypneic. Ativan 0.5 mg ordered p.o. After receiving Ativan, patient remains anxious and tearful. Discussed lab work with patient and daughter. Patient remains very concerned about why she is having these episodes of shaking and rapid breathing. Orthostatic vitals obtained which showed slightly increased heart rate. Nursing staff attempted to ambulate patient. They were unable to get patient to a standing position with assist x 2. Due to patient inability to ambulate, we will plan for admission. Dr. Green spoke with hospitalist who will admit the patient. Patient and daughter agreeable with plan. <Dr. Jared Green MD - Last Filed: 12/17/23 23:25> [facility] Narrative Medical decision making narrative: IV line initiated. Labwork obtained to evaluate for leukocytosis, anemia, and electrolyte derangement. Urinalysis obtained via straight cath to evaluate for infection/hematuria. EKG obtained to evaluate for cardiac arrhythmia/ischemia. Zofran IV ordered for nausea and vomiting. Normal saline 500 mL bolus ordered due to concerns for dehydration as evidenced by dry mucous membranes and vomiting. I have personally performed a face to face assessment of the patient and have reviewed the JOSE Note. I performed a substantive portion of the visit including all aspects of the following. My carter findings include: History is 73-year-old female fell struck the left side of her head while walking into a building about 2 weeks ago. No LOC. She is on Eliquis due to factor V Leiden. She had a CAT scan evaluation that day that was negative. Had a CAT scan yesterday that was negative. Today she is having some nausea and vomiting. Shaking. But not seizure activity. Patient denies any headache currently. Exam is [73-year-old female vital signs are stable afebrile. Pulse ox 100% room air no signs hypoxia. H EENT exam pupils are reactive light. Left side of her forehead there is a bruise that is resolved. There is dry reactive light. Mouth unremarkable. Normal speech. Neck nontender. Lungs clear. Heart regular rhythm no murmur. Rate about 80. Chest wall and ribs nontender. Abdomen soft nontender. Nondistended normal bowel sounds no peritoneal signs. No right upper or right lower quadrant tenderness. No hernia or distention. No obstruction. Moving all 4 extremities. Nontender no deformity. Back nontender. Neurologically. She is awake. She is answering questions following commands. No focal motor deficits.] Medical Decision Making [patient with was treated with nausea by mouth by squad. She will be given IV Zofran. Screening labs. I do not think she needs repeat imaging because she has had 2 CAT scans already for this head injury. She denies any headache at this time. She is unremarkable neurologic exam. Some of this may be secondary to anxiety. She might also have a postconcussive syndrome.] Other additions or changes: [Multiple repeat exams. The patient definitely has anxiety. Nurses tried to ambulate. She was too weak to ambulate. I will speak to the hospitalist about admission. I do not think she needs repeat image she literally had a CAT scan yesterday.] Lab Data Attestation: I reviewed the patient's lab results. Lab results narrative: CBC shows a normal white count of 5. H&H of 14 and 39. Platelets 255. Electrolytes show a sodium 135. Potassium of 3.1. A gap of 12. BUN and creatinine is 16 and 1. Glucose 164. Liver enzymes are normal. Labs: Laboratory Results - last 24 hr 12/17/23 12/17/23 19:45 20:50 WBC 5.0 RBC 4.45 Hgb 14.2 Hct 39.8 MCV 89.4 MCH 31.9 MCHC 35.7 RDW Std Deviation 41.8 RDW Coeff of Shannon 12.7 Plt Count 255 MPV 10.1 Immature Gran % (Auto) 0.200 Neut % (Auto) 64.1 Lymph % (Auto) 25.7 [place] % (Auto) 8.4 Eos % (Auto) 0.8 Baso % (Auto) 0.8 Absolute Neuts (auto) 3.2 Absolute Lymphs (auto) 1.29 Nucleated RBC % 0 Sodium 135 L Potassium 3.1 L Chloride 103 Carbon Dioxide 20.0 L Anion Gap 12 BUN 16 Creatinine 1.03 H Estim Creat Clear Calc 45.70 Est GFR (MDRD) Af Amer 67 Est GFR (MDRD) Non-Af 55 L BUN/Creatinine Ratio 15.5 Glucose 164 H Calcium 9.8 Total Bilirubin 0.80 AST 18 ALT < 6 L Alkaline Phosphatase 70 Total Protein 7.6 Albumin 4.1 Globulin 3.5 Albumin/Globulin Ratio 1.2 Urine Color Yellow Urine Clarity Clear Urine pH 8.0 Ur Specific [place] 1.015 Urine Protein Negative Urine Glucose (UA) Normal Urine Ketones 50 H Urine Occult Blood Negative Urine Nitrite Negative Urine Bilirubin Negative Urine Urobilinogen Normal Ur Leukocyte Esterase Negative Urine RBC 0 SEEN Urine WBC 0 SEEN Ur Squamous Epith Cells 0 SEEN Urine Bacteria 0 SEEN Urine Mucus 0 SEEN Rhythm Strip Rhythm Strip: Sinus Rhythm Rate: 79 Ectopy: None EKG Initial EKG: Attestation: I personally reviewed and interpreted this EKG as follows: Interpretation: Sinus Rhythm and No Acute Injury Pattern Comments: Normal sinus rhythm rate of 79 no acute signs of IL or ischemia. Discharge Plan Dx/Rx/DC Orders Clinical Impression: Concussion, Anxiety, Fall, History of Parkinson's disease, History of atrial fibrillation, Chronic anticoagulation, Unable to walk Disposition Disposition: Acute Care [facility] What to do if you have Problems For any increased pain, shortness of breath, bleeding, nausea or vomiting, chestpain, or any unexpected problems, contact your Primary Care Provider. Call [facility] ([phone]) or report to the closest Emergency Room. Call 911 if necessary. 12/17/233 <Electronically signed by Jared Green MD> Cosigner Signature (if applicable): 12/17/232325 <Electronically signed by Elvia Bazan RN> CC: Dr. Desmond Riojas MD ~ Signed [facility] Work Phone: [phone]) 492-806903-26-2023 Miscellaneous Notes* Telephone Encounter - Javid Bellsandra Pss - 12/13/2022 11:59 AM EDT I called and spoke to Viola and let her know the below information, she stated understanding. Patient stated that she did not have a colonoscopy/EGD done with at this time. She stated she had a colonoscopy scheduled with him but then ended up in the hospital from falling and it was canceled. She plans to have it rescheduled. Javid Vinson Pss * Telephone Encounter - Luis Felipe Radford DO - 12/11/2022 7:00 PM EDT Can let her know that her blood counts and iron levels are doing well. Did she ever see Dr. Pandya for colonoscopy and EGD? Luis Felipe Radford DO documented [facility]Bl[facility] Miscellaneous Notes* Telephone Encounter - Beatriz Moran LPN - 09/02/2022 4:46 PM EST Patient notified and a copy of this note was faxed to Dr. Pandya's office. Beatriz Moran LPN * Telephone Encounter - Luis Felipe Radford DO - 09/02/2022 4:40 PM EST Yes, that would be okay. Luis Felipe Radford DO * Telephone Encounter - Marce Galloway LPN - 09/02/2022 3:58 PM EST Call placed to pt. She states she called Dr Pandya's office to tell them Dr Radford's instructions regarding her Eliquis (per note from earlier today) She states that Dr Pandya would really like to have her hold her Eliquis for 48 hours in case he has to do a biopsy. Please advise. Marce Galloway LPN * Telephone Encounter - Lizbeth Quiñones Pss - 09/02/2022 3:28 PM EST Patient is planning to have a colonoscopy possible 09/[address] Pandya but needs to know when to stop blood thinners. Please advise the patient. documented in this encounterBlanchard [facility]12-08-2022 Miscellaneous Notes* Telephone Encounter - Blanca Obrien Pss - 08/27/2022 8:43 AM EST Scheduled. * Telephone Encounter - Beatriz Moran LPN - 08/27/2022 8:[address] Radford- Patient has appointment with Dr. Pandya 09/15/2022. PSS- please schedule patient for CBC/Iron studies 11/16/2021 @ 10:00. No need to notify patient, she is aware of appointment date and time. Beatriz Moran LPN * Telephone Encounter - Luis Felipe Radford DO - 08/27/2022 6:32 AM EST Blood counts and iron doing well. Did she see Dr. Pandya for colonoscopy? Recheck CBC/Iron studies in about 3 months. Luis Felipe Radford DO * Telephone Encounter - Margot Joaquin - 08/26/2022 12:40 PM EST Pt calling about her lab results. Please contact pt and advise. Thank you! documented in this encounterBlanch[facility]11-02-2022 Miscellaneous Notes* Telephone Encounter - Margot Jemal - 07/22/2022 2:49 PM EDT Spoke with PT and given the information below. Pt stated her understanding. Thank you! Margot Jemal * Telephone Encounter - Zaria Ortega LPN - 07/22/2022 1:21 PM EDT Appears pt. Needs to have CBC/Iron studies the week of or around there. PSS please reach out to pt. And schedule. Does not say anything about needing a visit. Zaria Ortega LPN * Telephone Encounter - Magnolia Leo Pss - 07/22/2022 1:03 PM EDT Patient called asking if she is to have any appointments scheduled with Dr. Radford. Please advise. documented in this encounterBlanchard [facility]10-03-2022 Miscellaneous Notes* Telephone Encounter - Beatriz Moran LPN - 06/22/2022 3:01 PM EDT Patient's daughter notified. Beatriz Moran LPN * Telephone Encounter - Luis Felipe Radford DO - 06/22/2022 2:17 PM EDT I did not specifically check her vitamin D level, but no harm in starting an [id number] vitamin D supplement. Typical dose would be 2000 units daily. Luis Felipe Radford DO * Telephone Encounter - Beatriz Moran LPN - 06/22/2022 2:12 PM EDT Patient's daughter is asking if patient can start Vitamin D2? They were told at the OV to wait until labs were resulted. Beatriz Moran LPN * Telephone Encounter - RAMESH Rodríguez - 06/22/2022 8:52 AM EDT Daughter Pau called in to see if there is a specific place she could find Vitamin D 2 for morenita. All she has found so far is Vitamin D 3. Please call Pau with the information. RAMESH Rodríguez documented in this encounterBlanchard Valley [facility]09-30-2022 Miscellaneous Notes* Telephone Encounter - Blanca Kimble - 06/19/2022 3:08 PM EDT Schedule updated. * Telephone Encounter - Beatriz Moran LPN - 06/19/2022 2:24 PM EDT Patient just started oral iron yesterday and is tolerating it so far. PSS- please schedule patient for CBC/iron studies 08/14/2022 @10:00. No need to notify patient, she is aware. Please cancel iron infusions. Patient is aware that if for any reason she cannot tolerate oral iron she needs to call back to reschedule iron infusions. Beatriz Moran LPN * Telephone Encounter - Beatriz Moran LPN - 06/19/2022 2:17 PM EDT Left message for patient to contact office regarding oral vs iron infusion and rechecking labs. Beatriz Moran LPN * Telephone Encounter - Luis Felipe Radford DO - 06/19/2022 1:50 PM EDT If she is tolerating the oral iron fairly well then we can skip the iron sucrose infusions and justrecheck CBC/iron studies in about 8 weeks. Luis Felipe Radford DO * Telephone Encounter - Marce Galloway LPN - 06/18/2022 4:18 PM EDT Do you want to address the new oral iron? Would you like me to let Dr Riojas know she is getting infusions? Marce Galloway LPN * Telephone Encounter - Pau Santana - 06/18/2022 3:25 PM EDT Patient returned call and scheduled as directed. Patient stated that she just started (today) taking prescription iron from Dr. Riojas - Polysaccharide iron - 150 mg tablets, 1 per mouth per day for 30days. Please advise if we should still do iron sucrose infusions. She is also taking Vitamin D2 once/week but hasn't started that yet. Pau Santana * Telephone Encounter - Pau Santana - 06/18/2022 3:05 PM EDT LM for patient to return call. When patient calls, please warm transfer to [facility] PSS to schedule below. Pau Santana * Telephone Encounter - Luis Felipe Radford DO - 06/18/2022 6:01 AM EDT Can let her know that her iron saturation is still little bit low so I recommend 2 doses of iron sucrose. Check CBC/BMP/iron studies about 4 to 6 weeks after completing the 2 doses. Luis Felipe Radford DO documented in this encounterBlanchard Valley [facility]09-27-2022 NoteHNO ID: [id number] Author: Luis Felipe Radford DO Service: ? [...] Compression stockings on. SKIN: No jaundice. 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 No focal motor [...] to Dr. Pandya for EGD and colonoscopy. (F55.084) Chronic deep vein thrombosis (DVT) of both [...] of atrial fibrillation a (more content not included)...[facility]09-27-2022 History of Present illness Narrative* Luis Felipe Radford, DO - 06/16/2022 3:15 PM EDT Hematologic problem(s): 1) DVT b/l LEs 2009. 2) Heterozygous for the Factor V Leiden 3) IgA anticardiolipin antibody HPI: The patient is a 72 yo female with a past medical history significant for atrial fibrillation,chronic kidney disease, obstructive sleep apnea (on CPAP), [...] of chronic congestive heart failure. There was noother history of atrial fibrillation. Referred back for [...] Compression stockings on. SKIN: No jaundice. 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 No focal motor [...] to Dr. Pandya for EGD and colonoscopy. (I82.604) Chronic deep vein thrombosis (DVT) of both [...] which included preparing to see the patient, [id number] patient care, completing clinical documentation, obtaining and/or reviewing separately obtained history, performing a medically appropriate examination, counseling and educating the pat ient/family/caregiver, ordering medications, tests, or procedures, and communicating results to thepatient/family/caregiver. Luis Felipe Radford DO documented in this encounterHolzer Hospital note Author Maribel Diez [facility] December 20, 2023 3:48pm Note Date/Time December 20, 2023 3:48 pm [facility] Medical Records Department [address] [place] [address] Counseling Note - Pharmacy 12/20/23 1548 MR#: [id number] Acct: [id number] Name: VIOLA BENNETT Rep #:[id number] : 1950 73 From: Maribel Diez PCP: Dr. Desmond Riojas MD Status:ADM I NO Y Location: [place] [address] Pharmacy [place] Med Reconciliation Pharmacy Service has performed discharge medication reconciliation for this patient. The patient's discharge medication list was reviewed for discrepancies and discrepancies were resolved. Medications at Discharge Home Medications montelukast 10 mg tablet 10 mg PO DAILY Allergies 09/29/13 omeprazole 20 mg capsule,delayed release 20 mg PO DAILY GERD 09/29/13 amitriptyline 25 mg tablet 25 mg PO QHS Mood 10/25/19 galcanezumab-gnlm 120 mg/mL subcutaneous syringe (Emgality) 120 mg subcut QMONTHMigraines 10/25/19 multivitamin 1 tab PO DAILY Supplement 04/26/20 divalproex 500 mg tablet,extended release 24 hr (Depakote ER) 500 mg PO QHS headache 01/31/21 calcium carbonate 600 mg calcium (1,500 mg) tablet 600 mg PO DAILY supplement 11/24/21 ergocalciferol (vitamin D2) 1,250 mcg (50,000 unit) capsule 1,250 mcg PO DAILY supplement 11/24/21 ascorbic acid (vitamin C) 1,000 mg tablet,extended release (Vitamin C ER) 1,000 mg PO DAILY Supplement 06/01/22 acetaminophen 500 mg tablet 1,000 mg (2 x 500 mg) PO Q8H PRN PRN pain #1 TAB 06/12/22 apixaban 5 mg tablet 5 mg PO BID Blood thinner #60 tabs 06/12/22 citalopram 20 mg tablet 20 mg PO DAILY #30 tabs 06/12/22 ferrous sulfate 325 mg (65 mg iron) tablet 325 mg PO DAILY supplement 09/12/22 carbidopa 25 mg-levodopa 100 mg tablet 2 tab PO 4X/DAY 12/17/23 levocetirizine 5 mg tablet 5 mg PO DAILY 12/17/23 potassium chloride 20 mEq tablet,extended release(part/cryst) 20 meq PO DAILY 12/17/23 verapamil 120 mg 24 hr capsule,extended release 120 mg PO DAILY #30 caps 12/20/23 12/20/23 1548 <Electronically signed by Maribel Diez> Date _ Maribel Diez Cosigner Signature (if applicable): Date CC: ~ Signed [facility] Work Phone: consult note Author Andrei Rausch [facility] Note Date/Time February 07, 2025 10:15 am [facility] Medical Records Department [address] [place] [address] Anesthesia Postop Eval I 02/07/25921 MR#: [id number] Acct: [id number] Name: FORRESTJAHVIOLA Payton Rep #:[id number] : 1950 74 From: Andrei Rausch PCP: Dr. Desmond Riojas MD Status:REG S DC Y Race: C Location: [place] [address] Anesthesia: Postop Eval I Current Vital Signs Temperature: 97.4 F Pulse Rate: 78 Blood Pressure: 75/54 Respiratory Rate: 14 Pulse Ox: 98 Oxygen Delivery Method: Room Air Assessment Airway patent: Yes Spontaneous unlabored respirations: Yes Mental status: Awake and Calm nausea: No Vomiting: No Anesthesia Complication: No Fluid Hydration Crystalloid volume administer (ml): 300 Total IV fluid infused: 300 Progress Note Anesthesia document: Postop Eval 1 completed: Yes 02/07/25921 <Electronically signed by Andrei Rausch > Date _ Andrei Garrett Signature: Date CC: ~ Signed [facility] Work Phone: consult note Author Sharan Verduzco [facility] Note Date/Time February 07, 2025 10:15 am [facility] Medical Records Department [address] [place] [address] Anesthesia Postop Eval II 02/07/25938 MR#: [id number] Acct: [id number] Name: VIOLA BENNETT Rep #:[id number] : 1950 74 From: Sharan Verduzco MD PCP: Dr. Desmond Riojas MD Status:REG S DC Y Race: C Location: [place] [address] Anesthesia Postop Eval I Sum Postop Eval Completion status Anesthesia document: Postop Eval 1 completed: Yes Anesthesia Postop Eval I Summary Anesthesia Postop Eval I Summary: Anesthesia Postop Eval I: Assessment Summary Airway patent Yes 02/07/25 09:22 [email or web address] Spontaneous unlabored Yes 02/07/25 09:22 [email or web address] respirations Mental status Awake,Calm 02/07/25 09:22 [email or web address] nausea No 02/07/25 09:22 [email or web address] Vomiting No 02/07/25 09:22 [email or web address] Anesthesia Postop Eval I: Fluid Summary Crystalloid volume administer 300 02/07/25 09:22 [email or web address] (ml) Colloids volume administered ( ml) Blood Product volume administered (ml) Total IV fluid infused 300 02/07/25 09:22 [email or web address] Anesthesia Postop Eval I: Summary Notes Anesthesia Complication No 02/07/25 09:22 [email or web address] Anesthesia Complication Comment: Post-operative progress note Anesthesia: Postop Eval II Evaluation Mental status: Awake Pain Level: 0 nausea: No Vomiting: No 02/07/25 0939 <Electronically signed by Sharan Verduzco MD > Date _ Sharan Verduzco MD [facility] Signature: Date CC: ~ Signed [facility] Work Phone: Discharge summary Author Renae Ordoñez [facility] December 20, 2023 3:37pm Note Date/Time December 20, 2023 3:37 pm [facility] Medical Records Department [address] [place] [address] Instructions for Home/Discharge Instructions 12/20/23 1537 MR#: [id number] Acct: [id number] Name: VIOLA BENNETT Rep #:[id number] : 1950 73 From: Renae Ordoñez MD PCP: Dr. Desmond Riojas MD Status:ADM I NO Discharge Instructions Diet Discharge Diet: Low fat / Low cholesterol Activity Discharge Activity: Return to Normal Activity Weight Bearing Status: Weight bearing as tolerated Dressing / Incision Call your doctor if you observe: Fever of 101 or Higher, Shortness of breath, Dizziness, Swelling in the ankles and Chest pain Follow Up Care Test Results: Test results from this visit will be discussed in further detail at your follow- up appointment, if applicable. Discharge Plan Admission Admit Date/Time: 12/18/23 00:05 Primary Reason for Your Visit: mechanical fall Attending Provider: Renae Ordoñez Primary Care Provider: Desmond Riojas Chi Consulting Providers: Giuliano Gilliland; Сергей Vega Instructions Patient Instructions: ED Mechanical Fall Discharge Orders/Prescriptions Prescriptions: New verapamil 120 mg capsule,ext rel. pellets 24 hr 120 mg PO DAILY Qty: 30 2RF Continued amitriptyline 25 mg tablet 25 mg PO QHS Emgality Syringe 120 mg/mL syringe 120 mg SC QMONTH multivitamin Tablet 1 tab PO DAILY calcium carbonate 600 mg calcium (1,500 mg) tablet 600 mg PO DAILY ergocalciferol (vitamin D2) 1,250 mcg (50,000 unit) capsule 1,250 mcg PO DAILY omeprazole 20 MG capsule 20 mg PO DAILY montelukast 10 MG tablet 10 mg PO DAILY divalproex [Depakote ER] 500 mg Tablet Extended Release 24 Hr 500 mg PO QHS Vitamin C 1,000 mg Tablet Extended Release 1,000 mg PO DAILY Rx Instructions: Take with Iron supplement citalopram 20 mg Tablet 20 mg PO DAILY Qty: 30 0RF acetaminophen 500 mg tablet 1,000 mg PO Q8H PRN PRN (Reason: pain) Qty: 1 0RF Rx Instructions: 2 tabs every 8 hours as needed for pain. apixaban 5 mg tablet 5 mg PO BID Qty: 60 0RF Rx Instructions: 1 tab every 12 H ferrous sulfate 325 mg (65 mg iron) Tablet 325 mg PO DAILY carbidopa-levodopa 25-100 mg tablet 2 tab PO 4X/DAY levocetirizine 5 mg tablet 5 mg PO DAILY potassium chloride 20 mEq tablet,ER particles/crystals 20 meq PO DAILY Discontinued verapamil 240 MG capsule,ext rel. pellets 24 hr 240 mg PO DAILY Qty: 30 0RF Referrals / Follow Up: Desmond Riojas Chi, MD [Primary Care Provider] - Within 2 Weeks Disposition Disposition (needs filled in before D/C Order can be placed): Home, Self Care 12/20/231536<Electronically signed by Renae Ordoñez MD>Renae Ordoñez MD CC: Dr. Giuliano Gilliland DO; Dr. Сергей Vega MD; Dr. Desmond Riojas MD~ Signed [facility] Work Phone: Discharge summary Author Renae [facility] December 20, 2023 4:32pm Note Date/Time December 20, 2023 3:38 pm [facility] Medical Records Department [address] [place] [address] Discharge Summary 12/20/231536 MR#: [id number] Acct: [id number] Name: VIOLA BENNETT Rep #:[id number] : 1950 73 From: Renae Ordoñez MD PCP: Dr. Desmond Riojas MD Status:ADM I NO [id number] Date of Admission: 12/18/23 Date of Discharge: 12/20/23 Primary Care Physician: Dr. 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 (6) Factor V Leiden mutation: Status: Acute Code(s): D68.51 - Activated protein C resistance Medications at Discharge Home Medications montelukast 10 mg tablet 10 mg PO DAILY Allergies 09/29/13 omeprazole 20 mg capsule,delayed release 20 mg PO DAILY GERD 09/29/13 amitriptyline 25 mg tablet 25 mg PO QHS Mood 10/25/19 galcanezumab-gnlm 120 mg/mL subcutaneous syringe (Emgality) 120 mg subcut QMONTHMigraines 10/25/19 multivitamin 1 tab PO DAILY Supplement 04/26/20 divalproex 500 mg tablet,extended release 24 hr (Depakote ER) 500 mg PO QHS headache 01/31/21 calcium carbonate 600 mg calcium (1,500 mg) tablet 600 mg PO DAILY supplement 11/24/21 ergocalciferol (vitamin D2) 1,250 mcg (50,000 unit) capsule 1,250 mcg PO DAILY supplement 11/24/21 ascorbic acid (vitamin C) 1,000 mg tablet,extended release (Vitamin C ER) 1,000 mg PO DAILY Supplement 06/01/22 acetaminophen 500 mg tablet 1,000 mg (2 x 500 mg) PO Q8H PRN PRN pain #1 TAB 06/12/22 apixaban 5 mg tablet 5 mg PO BID Blood thinner #60 tabs 06/12/22 citalopram 20 mg tablet 20 mg PO DAILY #30 tabs 06/12/22 ferrous sulfate 325 mg (65 mg iron) tablet 325 mg PO DAILY supplement 09/12/22 carbidopa 25 mg-levodopa 100 mg tablet 2 tab PO 4X/DAY 12/17/23 levocetirizine 5 mg tablet 5 mg PO DAILY 12/17/23 potassium chloride 20 mEq tablet,extended release(part/cryst) 20 meq PO DAILY 12/17/23 verapamil 120 mg 24 hr capsule,extended release 120 mg PO DAILY #30 caps 12/20/23 Hospital Course Operations None Procedures None Summary of Care Provided Minutes Spent on Discharge: 45 Hospital Course: Patient is a 73-year-old female with an extensive past medical history as outlined was admitted through the ED on 12/17/2023 with a complaint of intermittent nausea and vomiting. She had been admitted to the hospital but a couple of weeks prior to admission after she fell and hit the left side of her head and left knee. She did not lose consciousness at that time but was generally weak. She had had some intermittent nausea and vomiting and was discharged home. However she came to the ED this time with complaint of nausea and vomiting and weakness as well as dizziness. She also has the associated vomiting as stated. She has seen her neurologist the day before admission and she had a repeat CT of the brain done showed only chronic involutional changes and no bleed or other acute intracranial pathology. His Sinemet had been reduced from 4 times a day to 3 times a day. There is concern for postconcussive syndrome. She was admitted and managed for debility and weaknesslikely due to postconcussive syndrome. She was hydrated with fluids. PT OT wasconsulted. Patient did very well with PT OT and felt much better. She did havean MRI of the brain which showed no evidence of stroke. She did well with therapy. She remained stable and was discharged home on 12/20/2023. She is follow-up with her primary care doctor within 1 to 2 weeks. Of note, patient's blood pressure was on the lower side of normal so her verapamil was cut down from 240 mg daily to 120 mg daily. She is follow-up with her primary care doctor for adjustment of her medications as needed. Patient seen and examined prior to discharge. She had no active complaints. Review of systems otherwise negative. Labs and vitals reviewed. Home medication reviewed and reconciled. Physical Exam Const alert, oriented x3 and no apparent distress General Appearance: cooperative, comfortable and well kempt Orientation / Consciousness: awake Exam Limitations: no limitations HEENT normocephalic, head/scalp atraumatic, hearing grossly normal bilaterally and moist oral mucous membranes Mouth: oral and palatal mucosa normal Eyes PERRL, EOMs intact bilaterally and conjunctivae normal Neck no lymphadenopathy and supple Resp normal respiratory effort, no retractions, no use of accessory muscles and clearto auscultation bilaterally Cardio regular rate, regular rhythm, S1 normal heart sound, S2 normal heart sound and no murmurs GI normal to inspection, nondistended, normoactive bowel sounds, soft to palpation and non-tender Extremity normal to inspection, full ROM and no clubbing, cyanosis or edema Skin no rashes or lesions noted and no wounds Neuro oriented x3, CN's II-XII intact bilaterally, moves all extremities and no focal motor deficits Sensorium / Orientation: awake and alert Motor Exam: strength 5/5 throughout Psych affect normal Weight / BMI Weight Weight: 170 lb 3.15 oz Body Mass Index (BMI) 31.3 ABG / Lab / Microbiology Data 12/19/23 04:45 12/19/23 04:45 D/C Instructions Discharge Diet: Low fat / Low cholesterol Discharge Activity: Return to Normal Activity Weight Bearing Status: Weight bearing as tolerated Call your doctor if you observe: Fever of 101 or Higher, Shortness of breath, Dizziness, Swelling in the ankles and Chest pain Meaningful Use Info Meaningful Use Diagnoses (Choose all that apply): None applicable Discharge Plan Admission Admit Date/Time: 12/18/23 00:05 Primary Reason for Your Visit: mechanical fall Attending Provider: Renae Ordoñez Primary Care Provider: Desmond Riojas Chi Consult[employer] Providers: Giuliano Gilliland; Сергей Vega Instructions Patient Instructions: ED Mechanical Fall Discharge Orders/Prescriptions Prescriptions: New verapamil 120 mg capsule,ext rel. pellets 24 hr 120 mg PO DAILY Qty: 30 2RF Continued amitriptyline 25 mg tablet 25 mg PO QHS Emgality Syringe 120 mg/mL syringe 120 mg SC QMONTH multivitamin Tablet 1 tab PO DAILY calcium carbonate 600 mg calcium (1,500 mg) tablet 600 mg PO DAILY ergocalciferol (vitamin D2) 1,250 mcg (50,000 unit) capsule 1,250 mcg PO DAILY omeprazole 20 MG capsule 20 mg PO DAILY montelukast 10 MG tablet 10 mg PO DAILY divalproex [Depakote ER] 500 mg Tablet Extended Release 24 Hr 500 mg PO QHS Vitamin C 1,000 mg Tablet Extended Release 1,000 mg PO DAILY Rx Instructions: Take with Iron supplement citalopram 20 mg Tablet 20 mg PO DAILY Qty: 30 0RF acetaminophen 500 mg tablet 1,000 mg PO Q8H PRN PRN (Reason: pain) Qty: 1 0RF Rx Instructions: 2 tabs every 8 hours as needed for pain. apixaban 5 mg tablet 5 mg PO BID Qty: 60 0RF Rx Instructions: 1 tab every 12 H ferrous sulfate 325 mg (65 mg iron) Tablet 325 mg PO DAILY carbidopa-levodopa 25-100 mg tablet 2 tab PO 4X/DAY levocetirizine 5 mg tablet 5 mg PO DAILY potassium chloride 20 mEq tablet,ER particles/crystals 20 meq PO DAILY Discontinued verapamil 240 MG capsule,ext rel. pellets 24 hr 240 mg PO DAILY Qty: 30 0RF Referrals / Follow Up: Desmond Riojas Chi, MD [Primary Care Provider] - Within 2 Weeks Disposition Disposition (needs filled in before D/C Order can be placed): Home Health Service Charges/Coding Visit Charges Inpatient E&M: 30816 Disch Hosp >30min 12/20/23 1632 <Electronically signed by Renae Ordoñez MD> Cosigner Signature (if applicable): CC: Dr. Renae Ordoñez MD; Dr. Desmond Riojas MD~ Signed [facility] Work Phone: Evaluation note* Diagnosis Onset Date Resolution Status Anterolisthesis acute Back pain acute Segmental and somatic dysfunction of lumbar region acute Segmental and somatic dysfunction of pelvic region acute Segmental and somatic dysfunction of thoracic region acute Scoliosis of lumbar spine ch ronic Essential hypertension chron ic Hyperlipidemia chronic Paroxysmal atrial fibrillation chronic [facility] Work Phone: Evaluation note* Diagnosis Onset Date Resolution Status Closed fracture of left hip acute Fall at home acute Medication induced coagulopathy acute [facility] Work Phone: Evaluation note* Diagnosis Onset Date Resolution Status Anemia acute Closed fracture of left hip acute Fall at home acute Malnourished acute Medication induced coagulopathy acute [facility] Work Phone: Evaluation note* Diagnosis Onset Date Resolution Status Closed fracture of left hip resolved Fall at home resolved Acute postoperative anemia due to expected blood loss acute Anxiety acute Cataract acute Closed fracture of left hip resolved Debility acute Depression acute Factor 5 Leiden mutation, heterozygous acute Fall acute Heme + stool acute History of left hip hemiarthroplasty acute Obstructive sleep apnea acut e Osteoarthritis acute Osteopenia acute Presbycusis of both ears acu te Chronic kidney disease chron ic Gastroesophageal reflux disease chronic Hypertension chronic Iron deficiency anemia due to chronic blood loss chronic Long-term use of high-risk medication chronic Migraine chronic Paroxysmal atrial fibrillation chronic Vision problems chronic Fall at home resolved [facility] Work Phone: Evaluation note* Diagnosis Iron deficiency anemia due to chronic blood loss- Primary Iron deficiency anemia secondary to blood loss (chronic) Chronic deep vein thrombosis (DVT) of both lower extremities, unspecified vein (HCC) Coagulation defect (HCC) Other and unspecified coagulation defects [facility] Iron deficiency anemia due to chronic blood loss Iron deficiency anemia secondary to blood loss (chronic) Iron malabsorption Other specified intestinal malabsorption documented in this encounter [facility] Diagnosis Onset Date Resolution Status Closed fracture of left hip resolved Fall at home resolved Acute postoperative anemia due to expected blood loss acute Anxiety acute Closed fracture of left hip resolved Debility acute Heme + stool acute History of left hip hemiarthroplasty acute Osteopenia acute Iron deficiency anemia due to chronic blood loss chronic Long-term use of high-risk medication chronic Cataract resolved Chronic kidney disease resol odilon Fall at home resolved [facility] Work Phone: Evaluation note* Diagnosis Iron deficiency anemia due to chronic blood loss- Primary Iron deficiency anemia secondary to blood loss (chronic) Iron malabsorption Other specified intestinal malabsorption [facility] Diagnosis Onset Date Resolution Status Closed fracture of left hip resolved Fall at home resolved Acute postoperative anemia due to expected blood loss acute Anxiety acute Closed fracture of left hip resolved Debility acute Heme + stool acute History of left hip hemiarthroplasty acute Osteopenia acute Iron deficiency anemia due to chronic blood loss chronic Long-term use of high-risk medication chronic Cataract resolved Chronic kidney disease resol odilon Fall at home resolved Accidental fall acute Contusion of hip, right acut e Paresthesia of right leg acu te Right leg weakness acute [facility] Work Phone: Evaluation note* Diagnosis Onset Date Resolution Status Closed fracture of left hip resolved Fall at home resolved Acute postoperative anemia due to expected blood loss acute Anxiety acute Closed fracture of left hip resolved Debility acute Heme + stool acute History of left hip hemiarthroplasty acute Osteopenia acute Iron deficiency anemia due to chronic blood loss chronic Long-term use of high-risk medication chronic Cataract resolved Chronic kidney disease resol odilon Fall at home resolved Paresthesia of right leg acu te Right leg weakness acute Accidental fall resolved Contusion of hip, right reso lved Spinal stenosis at L4-L5 level acute [facility] Work Phone: Evaluation note* Diagnosis Onset Date Resolution Status Paresthesia of right leg acu te Right leg weakness acute Accidental fall resolved Contusion of hip, right reso lved Spinal stenosis at L4-L5 level acute Spinal stenosis at L4-L5 level acute Quadriceps weakness acute Spinal stenosis at L4-L5 level acute [facility] Work Phone: Evaluation note* Diagnosis Onset Date Resolution Status Spinal stenosis at L4-L5 level acute Quadriceps weakness acute Spinal stenosis at L4-L5 level acute Spinal stenosis at L4-L5 level acute [facility] Work Phone: Evaluation noteNo assessment information available [facility] Work Phone: Evaluation note* Diagnosis Onset Date Resolution Status Anxiety acute Chronic anticoagulation acut e Concussion acute Factor V Leiden mutation acu te Fall acute Generalized weakness acute History of atrial fibrillation acute History of Parkinson's disease acute Postconcussion syndrome acut e Unable to walk acute [facility] Work Phone: Evaluation note* Diagnosis Onset Date Resolution Status Postconcussion syndrome reso lved Unable to walk resolved [facility] Work Phone: Evaluation note* Diagnosis Neuropathy- Primary Mononeuritis of unspecified site Chronic bilateral low back pain without sciatica Parkinson's disease without dyskinesia, with fluctuating manifestations (CMS/HCC) Stress Other psychological or physical stress, not elsewhere classified Chronic migraine without aura, intractable, without status migrainosus (CMS/HCC) Memory loss Dysarthria [facility] Diagnosis Neuropathy- Primary Mononeuritis of unspecified site Parkinson's disease without dyskinesia, with fluctuating manifestations (CMS/HCC) VALENTIN (obstructive sleep apnea) Obstructive sleep apnea (adult) (pediatric) Chronic migraine without aura, intractable, without status migrainosus (CMS/HCC) Medication overuse headache Drug induced headache, not elsewhere classified Hiatal hernia Diaphragmatic hernia without mention of obstruction or gangrene Weight loss Loss of weight Constipation, unspecified constipation type [facility] Diagnosis Migraine without aura and with status migrainosus, not intractable (CMS/HCC)- Primary [facility] Diagnosis Neuropathy- Primary Mononeuritis of unspecified site Chronic bilateral low back pain without sciatica Parkinson's disease without dyskinesia, with fluctuating manifestations (CMS/HCC) VALENTIN (obstructive sleep apnea) Obstructive sleep apnea (adult) (pediatric) Insomnia, unspecified type Stress Other psychological or physical stress, not elsewhere classified Chronic migraine without aura, intractable, without status migrainosus (CMS/HCC) [facility] Diagnosis Parkinson's disease without dyskinesia, with fluctuating manifestations (CMS/HCC)- Primary Chronic migraine without aura, intractable, without status migrainosus (CMS/HCC) Neuropathy Mononeuritis of unspecified site VALENTIN (obstructive sleep apnea) Obstructive sleep apnea (adult) (pediatric) [facility] Author Alexander Bailey [facility] Note Date/Time February 07, 2025 8:22a m [facility] Medical Records Department [address] [place] [address] History & Physical Exam 02/07/25 0820 MR#: [id number] Acct: [id number] Name: VIOLA BENNETT Rep #:[id number] : 1950 74 From: Alexander Bailey DO PCP: Dr. Desmond Riojas MD Status:[facility] Location: [place] [address] HPI - General General Date of Admission: 02/07/25 Date of Service: 02/07/25 Chief Complaint: Nausea HPI Narrative VIOLA BENNETT, is a 74 F who presents with the Chief Complaint: nausea. [facility]GI established 9.6.24 after incidental findings of CBD dilation s/p cholecystectomy. Also with constipation alternating with diarrhea. Hx of Parkinson on Carbipoda-levodopa. CT abdomen pelvis; 24 Status post cholecystectomy. Intrahepatic biliary ductal dilatation as well as the common bile duct. Correlation with ERCP is recommended. Sigmoid diverticulosis. Moderate sized ventral hernia containing fat. MRCP 11..24; Stable common bile duct dilatation without evidence of an obstructing stone or mass. Last OV 12..24 Doing well with constipation. Controlled with mineral oil in theevening. Was taken off Carbidopa-levodopa. Struggling now with new daily migraines and nausea. Taking PPI and Zofran PRN. PPI increased to twice a day. Increased zofran to 8 mg. OV 3.7.25; Pt continues to have nausea daily but no vomiting. She is taking zofran just one time per week because she is nervous she will run out. She continues to have migraines daily which may be the cause of her nausea. She has an upcoming appointment with neurology in December 2024. She continues with Omeprazole 40 mg daily and zofran PRN. Her constipation is well controlled with mineral oil. [facility] Medical History Ambulates with cane Anemia Hoarseness Other specified disorders of bone density and structure, unspecified site Other primary thrombophilia Arthropathy, unspecified Acute embolism and thrombosis of other specified deep vein of unspecified lower extremity Anxiety disorder, unspecified Other hyperlipidemia Vitamin D deficiency Encounter for other procedures for purposes other than remedying health state Dysphonia Metabolic syndrome Fracture of unspecified part of neck of left femur, initial encounter for closedfracture Unspecified multiple injuries, initial encounter Thyroid nodule Sacroiliitis BMI 32.0-32.9,adult Melena Loss of hearing Low iron GERD (gastroesophageal reflux disease) Sleep apnea Hypertension Subcutaneous nodule Parkinson disease Generalized weakness Hypokalemia Factor V Leiden mutation Generalized weakness Chronic anticoagulation History of atrial fibrillation History of Parkinson's disease Fall Anxiety Concussion Essential hypertension Fall Presbycusis of both ears Osteopenia Malnourished Anemia Anterolisthesis Segmental and somatic dysfunction of thoracic region Vasovagal near syncope Insomnia Allergic rhinitis Migraine Hyperlipidemia Gastroesophageal reflux disease Hypertension Deep vein thrombosis Obstructive sleep apnea Depression Osteoarthritis Factor 5 Leiden mutation, heterozygous Open wound of left lower leg with complication Fall as cause of accidental injury at home as place of occurrence Wears hearing aid Wears glasses Depression Anxiety Open wound Walker as ambulation aid DVT (deep venous thrombosis) High cholesterol Injury of back Injury of head and neck Migraine headache Syncope Gastric reflux Non-smoker CPAP (continuous positive airway pressure) dependence History of pain when walking History of edema Hx of echocardiogram History of stress test Cardiology follow-up encounter History of atrial fibrillation Cellulitis of left lower leg Skin necrosis 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 lower leg with complication Hematoma of left lower extremity Vision problems Cataract Back pain Segmental and somatic dysfunction of pelvic region Segmental and somatic dysfunction of lumbar region Scoliosis of lumbar spine CKD (chronic kidney disease) History of DVT (deep vein thrombosis) VALENTIN (obstructive sleep apnea) Paroxysmal atrial fibrillation Long-term use of high-risk medication Family history of coronary artery disease Family history of CVA Family history of hypertension care home use of drug Traumatic ulcer of left lower extremity Atrial fibrillation CKD (chronic kidney disease) Obesity, Class III, BMI 40-49.9 (morbid obesity) Hypertension Head injury without concussion or intracranial hemorrhage Fall due to ice or snow Home Medications ?Medication ?Instructions ?Recorded ?Last Taken ?Type galcanezumab-gnlm 120 mg/mL 120 mg subcut QMONTH Migra jacque 10/25/19 05/23/22 08:00 History subcutaneous syringe (Emgality) multivitamin 1 tab PO DAILY Supplement 05/27/22 History divalproex 500 mg tablet,extended 500 mg PO QHS headac he 01/31/21 05/27/22 History release 24 hr (Depakote ER) ergocalciferol (vitamin D2) 1,250 1,250 mcg PO DAILY s upplement 11/24/21 05/27/22 07:00 History mcg (50,000 unit) capsule apixaban 5 mg tablet 5 mg PO BID Blood thinner #6 0 tabs 06/12/22 02/04/25 Rx verapamil 120 mg 24 hr 240 mg PO DAILY 04/22/24 History capsule,extended release citalopram 20 mg tablet 30 mg PO DAILY 07/15/24 Unkn own History omeprazole 40 mg capsule,delayed 40 mg PO QDAY #90 cap s 12/12/24 02/07/25 Rx release polysaccharide iron complex 150 mg 150 mg PO QDAY 12/21 Unknown History iron capsule umjjnnb-pqshzki-xehrafjkzv capsule 1 cap PO DAILY 10/14 Unknown History ([place]arana capsule) ondansetron HCl 4 mg tablet 4 mg PO Q8H PRN nausea and vomiting 01/18/25 Unknown History potassium chloride 20 mEq 20 meq PO DAILY #90 tabs 10/14 Unknown Rx tablet,extended release(part/cryst) rimegepant 75 mg disintegrating 75 mg PO ONCE PRN migr laine headache 01/18/25 Unknown History tablet (Nurtec ODT) oxycleanse 1 cap PO 1XD 02/07/25 History sennosides 8.6 mg-docusate sodium 1 tab-cap PO DAILY 0 02/07/25 Unknown History 50 mg tablet (2-in-1 Laxative) Allergy/AdvReac Type Severity Reaction Status Date / Time cefdinir Allergy Hives Verified 01/18/25 09:59 diphenhydramine HCl (From Allergy Hives Verified 01/18/25 09:59 Benadryl) Sulfa (Sulfonamide Allergy Hives Verified 01/18/25 09:59 Antibiotics) Family History Brother CAD (coronary artery disease) Mother CVA (cerebral vascular accident) CAD (coronary artery disease) Son Hypertension Daughter Hypertension Other Arthritis Cancer Diabetes Family history of CVA Family history of coronary artery disease Family history of hypertension Heart disease High cholesterol Kidney disease Thyroid disorder Surgical History History of left hip hemiarthroplasty History of incision and drainage Hx of cataract extraction History of total hysterectomy History of bilateral knee replacement History of cholecystectomy Social History household members: spouse housing: house number of children: 2 current occupational status: retired current occupational exposures/hazards: No pets and animals: No Smoking Status: Never smoker alcohol intake: never substance use type: does not use caffeine: Yes Type: tea what type of physical activity do you participate in: none seatbelt use: always do you feel safe at home: Yes additional social history: Does Not Take Aspirin Does Not Take Ibuprofen ROS Constitutional Constitutional: Denies fatigue, fever(s), poor appetite, weight gain or weight loss Gastrointestinal Gastrointestinal: Denies belching, bloating, change in bowel habits, change in stool character, chewing difficulty, coffee ground emesis, constipation, cramping, diarrhea, dyspepsia, dysphagia, early satiety, excessive flatus, fecalincontinence, heartburn, hematemesis, hematochezia, hemorrhoids, loose stools, melena, nausea, odynophagia, rectal bleeding, tenesmus, vomiting or weight changes Vital Signs Vital Signs Vital Signs: 02/07/25 07:57 02/07/25 07:59 Temperature 97.4 F L Temperature Source Temporal Pulse Rate 73 Respiratory Rate 16 Respiratory Pattern Normal Blood Pressure 131/74 H Blood Pressure Mean 93 Blood Pressure Source Monitor Blood Pressure Position Semi-Fowlers Blood Pressure Location Right Arm Pulse Ox 98 Oxygen Delivery Method Room Air Weight Weight: 143 lb 4.807 oz Body Mass Index (BMI) 26.2 Physical Exam Const alert, oriented x3, no apparent distress and healthy appearing General Appearance: cooperative GI normal to inspection, nondistended, normoactive bowel sounds, soft to palpation,non-tender and non-distended Percussion: normal to percussion Rectal Exam: deferred Assessment & Plan Assessment/Plan (1) Nausea: (2) Common bile duct dilation: (3) Heme + stool: (4) Iron deficiency anemia due to chronic blood loss: PLAN: Assessment and Plan Assessment and Plan (1) Nausea: Status: Acute Plan: This is a 74 yo female pt established with BGI for CBD dilation. Work up with MRCP was normal. She has a hx of constipation which is controlled with mineral oil at this time. She will continue this. She has had daily nausea over the pastyear as well as increase is her migraines. SHe feels the nausea may be related. She has not undergone EGD to rule out gastric etiology of nausea. She will be scheduled for this today. I increased her omeprazole to 40 mg BID and prescribedpromethazine PRN. -EGD -Contoinue PPI -Promethazine PRN -f/u as needed (2) Common bile duct dilation: Status: Acute (3) Constipation: Status: Acute Medications: Refilled promethazine 12.5 mg PO TID PRN 30 tabs 1RF nausea and vomiting 02/07/25 0822 <Electronically signed by Alexander Bailey DO> Cosigner Signature (if applicable): CC: Dr. Desmond Riojas MD; Alexander Bailey DO~ Signed [facility] Work Phone: Hospital Discharge instructions Additional Instructions Ensure that you ice, elevate, use a walker.[facility] Work Phone: Reason for referral (narrative)No reason for referral information [facility] Work Phone: Chief Complaint and Reason for Visit Chief Complaint lbp/hip pain LAB WORK 6 M FU LBP Reason for Visit Anterolisthesis Back pain Segmental and somatic dysfunction of lumbar region Segmental and somatic dysfunction of pelvic region Segmental and somatic dysfunction of thoracic region Scoliosis of lumbar spine Essential hypertension Hyperlipidemia Paroxysmal atrial fibrillation Chief Complaint L HIP FRACTURE, FALL Reason for Visit Closed fracture of l eft hip Fall at home Medication induced coagulopathy Chief Complaint L HIP FRACTURE, FALL L HIP FRACTURE, FALL L HIP FRACTURE, FALL L HIP FRACTURE, FALL L HIP FRACTURE, FALL Reason for Visit Anemia Closed fracture of left hip Fall at home Malnourished Medication induced coagulopathy Chief Complaint L HIP FRACTURE, FALL L HIP FRACTURE, FALL L HIP FRACTURE, FALL L HIP FRACTURE, FALL LEFT HIP FRACTURE L HIP FRACTURE, FALL LEFT HIP FRACTURE LEFT HIP FRACTURE LEFT HIP FRACTURE LEFT HIP FRACTURE LEFT HIP FRACTURE Reason for Visit Closed fracture of l eft hip Fall at home Acute postoperative anemia due to expected blood loss Anxiety Cataract Closed fracture of left hip Debility Depression Factor 5 Leiden mutation, heterozygous Fall Heme + stool History of left hip hemiarthroplasty Obstructive sleep apnea Osteoarthritis Osteopenia Presbycusis of both ears Chronic kidney disease Gastroesophageal reflux disease Hypertension Iron deficiency anemia due to chronic blood loss Long-term use of high-risk medication Migraine Paroxysmal atrial fibrillation Vision problems Fall at home Chief Complaint L HIP FRACTURE, FALL L HIP FRACTURE, FALL L HIP FRACTURE, FALL L HIP FRACTURE, FALL LEFT HIP FRACTURE L HIP FRACTURE, FALL LEFT HIP FRACTURE LEFT HIP FRACTURE LEFT HIP FRACTURE LEFT HIP FRACTURE LEFT HIP FRACTURE LEFT HIP FRACTURE Reason for Visit Closed fracture of l eft hip Fall at home Acute postoperative anemia due to expected blood loss Anxiety Cataract Closed fracture of left hip Debility Depression Factor 5 Leiden mutation, heterozygous Fall Heme + stool History of left hip hemiarthroplasty Obstructive sleep apnea Osteoarthritis Osteopenia Presbycusis of both ears Chronic kidney disease Gastroesophageal reflux disease Hypertension Iron deficiency anemia due to chronic blood loss Long-term use of high-risk medication Migraine Paroxysmal atrial fibrillation Vision problems Fall at home Chief Complaint L HIP FRACTURE, FALL L HIP FRACTURE, FALL L HIP FRACTURE, FALL L HIP FRACTURE, FALL LEFT HIP FRACTURE L HIP FRACTURE, FALL LEFT HIP FRACTURE LEFT HIP FRACTURE LEFT HIP FRACTURE LEFT HIP FRACTURE LEFT HIP FRACTURE LEFT HIP FRACTURE SP LEFT HIP JOINT REPLACEMENT Reason for Visit Closed fracture of l eft hip Fall at home Acute postoperative anemia due to expected blood loss Anxiety Closed fracture of left hip Debility Heme + stool History of left hip hemiarthroplasty Osteopenia Iron deficiency anemia due to chronic blood loss Long-term use of high-risk medication Cataract Chronic kidney disease Fall at home Chief Complaint L HIP FRACTURE, FALL L HIP FRACTURE, FALL L HIP FRACTURE, FALL L HIP FRACTURE, FALL LEFT HIP FRACTURE L HIP FRACTURE, FALL LEFT HIP FRACTURE LEFT HIP FRACTURE LEFT HIP FRACTURE LEFT HIP FRACTURE LEFT HIP FRACTURE LEFT HIP FRACTURE SP LEFT HIP JOINT REPLACEMENT CVA Reason for Visit Closed fracture of l eft hip Fall at home Acute postoperative anemia due to expected blood loss Anxiety Closed fracture of left hip Debility Heme + stool History of left hip hemiarthroplasty Osteopenia Iron deficiency anemia due to chronic blood loss Long-term use of high-risk medication Cataract Chronic kidney disease Fall at home Accidental fall Contusion of hip, right Paresthesia of right leg Right leg weakness Chief Complaint L HIP FRACTURE, FALL L HIP FRACTURE, FALL L HIP FRACTURE, FALL L HIP FRACTURE, FALL LEFT HIP FRACTURE L HIP FRACTURE, FALL LEFT HIP FRACTURE LEFT HIP FRACTURE LEFT HIP FRACTURE LEFT HIP FRACTURE LEFT HIP FRACTURE LEFT HIP FRACTURE SP LEFT HIP JOINT REPLACEMENT CVA Cerebrovascular accident Cerebrovascular accident Reason for Visit Closed fracture of l eft hip Fall at home Acute postoperative anemia due to expected blood loss Anxiety Closed fracture of left hip Debility Heme + stool History of left hip hemiarthroplasty Osteopenia Iron deficiency anemia due to chronic blood loss Long-term use of high-risk medication Cataract Chronic kidney disease Fall at home Accidental fall Contusion of hip, right Paresthesia of right leg Right leg weakness Chief Complaint L HIP FRACTURE, FALL L HIP FRACTURE, FALL LEFT HIP FRACTURE L HIP FRACTURE, FALL LEFT HIP FRACTURE LEFT HIP FRACTURE LEFT HIP FRACTURE LEFT HIP FRACTURE LEFT HIP FRACTURE LEFT HIP FRACTURE SP LEFT HIP JOINT REPLACEMENT CVA Cerebrovascular accident Cerebrovascular accident lumbar Rm 5 xray THYROID NODULE Reason for Visit Closed fracture of l eft hip Fall at home Acute postoperative anemia due to expected blood loss Anxiety Closed fracture of left hip Debility Heme + stool History of left hip hemiarthroplasty Osteopenia Iron deficiency anemia due to chronic blood loss Long-term use of high-risk medication Cataract Chronic kidney disease Fall at home Paresthesia of right leg Right leg weakness Accidental fall Contusion of hip, right Spinal stenosis at L4-L5 level Chief Complaint SP LEFT HIP JOINT RE PLACEMENT CVA Cerebrovascular accident Cerebrovascular accident lumbar Rm 5 xray THYROID NODULE Lumbar LUMBAR SPINE SPINAL STENOSIS L4-L5 LEVEL / RX HERE Reason for Visit Paresthesia of right leg Right leg weakness Accidental fall Contusion of hip, right Spinal stenosis at L4-L5 level Spinal stenosis at L4-L5 level Quadriceps weakness Spinal stenosis at L4-L5 level Chief Complaint Lumbar LUMBAR SPINE LUMBER SPINE SPINAL STENOSIS L4-L5 LEVEL / RX HERE Reason for Visit Spinal stenosis at L 4-L5 level Quadriceps weakness Spinal stenosis at L4-L5 level Spinal stenosis at L4-L5 level Chief Complaint SPINAL STENOSIS L4-L 5 LEVEL / RX HERE SCREENING Chief Complaint fALL Chief Complaint fALL UNSPECIFIED FALL POSTCONCUSSION SYNDROME WITH INTRACTABLE NAUSEA POSTCONCUSSION SYNDROME WITH INTRACTABLE NAUSEA POSTCONCUSSION SYNDROME WITH INTRACTABLE NAUSEA POSTCONCUSSION SYNDROME WITH INTRACTABLE NAUSEA Reason for Visit Anxiety Chronic anticoagulation Concussion Factor V Leiden mutation Fall Generalized weakness History of atrial fibrillation History of Parkinson's disease Postconcussion syndrome Unable to walk Chief Complaint fALL UNSPECIFIED FALL POSTCONCUSSION SYNDROME WITH INTRACTABLE NAUSEA POSTCONCUSSION SYNDROME WITH INTRACTABLE NAUSEA POSTCONCUSSION SYNDROME WITH INTRACTABLE NAUSEA POSTCONCUSSION SYNDROME WITH INTRACTABLE NAUSEA LEFT SIDED WEAKNESS Reason for Visit Postconcussion syndr ome Unable to walk Chief Complaint fALL UNSPECIFIED FALL HEAD INJURY Reason for Visit Anxiety Chronic anticoagulation Concussion Factor V Leiden mutation Fall Generalized weakness History of atrial fibrillation History of Parkinson's disease Postconcussion syndrome Unable to walk Chief Complaint Admit Date 3 M FU August 25, 2024 9 :15am 3 M FU November 24, 2024 8:45 am Reason for Visit Admit Date Nausea August 25, 2024 9 :15am Common bile duct dilation November 24 8:45am Constipation November 24, 2024 8:45 am Nausea November 24, 2024 8:45 am Chief Complaint Admit Date 3 M FU November 24, 2024 8:45 am Reason for Visit Admit Date Common bile duct dilation November 24 8:45am Constipation November 24, 2024 8:45 am Nausea November 24, 2024 8:45 am Chief Complaint Admit Date 3 M FU November 24, 2024 8:45 am RE-EST/CLEARANCE (BGI) January 18, 2025 9:5 0am CHRONIC NAUSEA January 22, 2025 10:59a m Reason for Visit Admit Date Common bile duct dilation November 24 8:45am Constipation November 24, 2024 8:45 am Nausea November 24, 2024 8:45 am Hypertension January 18, 2025 9:50am Parkinson disease January 18, 2025 9:50am Paroxysmal atrial fibrillation January 18, 2025 9:50am Preoperative cardiovascular examination January 18, 2025 9:50am Reason for Visit Admit Date Common bile duct dilation November 24 8:45am Constipation November 24, 2024 8:45 am Nausea November 24, 2024 8:45 am Hypertension January 18, 2025 9:50am Parkinson disease January 18, 2025 9:50am Paroxysmal atrial fibrillation January 18, 2025 9:50am Preoperative cardiovascular examination January 18, 2025 9:50am Common bile duct dilation February 07, 2025 7:19am Heme + stool February 07, 2025 7:19a m Nausea February 07, 2025 7:19a m Iron deficiency anemia due to chronic bl ood loss February 07, 2025 7:19am Chief Complaint Admit Date 3 M FU November 24, 2024 8:45 am RE-EST/CLEARANCE (BGI) January 18, 2025 9:5 0am CHRONIC NAUSEA January 22, 2025 10:59a m PAF, PREOP February 20, 2025 9:37a m Test Result 2025 9:44a m Reason for Visit Admit Date Common bile duct dilation November 24 8:45am Constipation November 24, 2024 8:45 am Nausea November 24, 2024 8:45 am Hypertension January 18, 2025 9:50am Parkinson disease January 18, 2025 9:50am Paroxysmal atrial fibrillation January 18, 2025 9:50am Preoperative cardiovascular examination January 18, 2025 9:50am Common bile duct dilation February 07, 2025 7:19am Heme + stool February 07, 2025 7:19a m Nausea February 07, 2025 7:19a m Iron deficiency anemia due to chronic bl ood loss February 07, 2025 7:19am Nausea 2025 9:44a m Chief Complaint Admit Date PAF, PREOP February 20, 2025 9:37a m Test Result 2025 9:44a m [facility] May 28, 2025 10:30am 3 M FU May 31, 2025 9:44am Reason for Visit Admit Date Common bile duct dilation February 07, 2025 7:19am Heme + stool February 07, 2025 7:19a m Nausea February 07, 2025 7:19a m Iron deficiency anemia due to chronic bl ood loss February 07, 2025 7:19am Nausea 2025 9:44a m Chief Complaint Admit Date Test Result 2025 9:44a m 3 M FU May 31, 2025 9:44am [facility] June 20, 2025 1 2:00pm Reason for Visit Admit Date Nausea 2025 9:44a m Constipation May 31, 2025 9:44am Nausea May 31, 2025 9:44am Family History No Family History Records Found Relationship Condition Age at Onset Recorded Date/T sue Not Specified Diabetes mellitus Unknown Family history of ce rebrovascular accident (CVA) Unknown High blood cholesterol Unknown Arthritis Unknown Cardiac disease Unknown Kidney disorder Unknown Family history of hypertension Unknown Family history of co ronary artery disease Unknown Malignant neoplasm Unknown Disorder of thyroid Unknown brother Coronary artery disease Unknown mother Cerebrovascular accident (CVA) Unknown Coronary artery disease Unknown son Hypertension Unknown daughter Hypertension Unknown Advance Directives No Advanced Directives Records Found Advance Directive Response Recorded Date/ Time Advance Directives Yes September 29, 2013 1:33pm Living Will Yes April 23, 2021 9:42pm Power of Corrugated Box Machine Operator Yes April 23 9:42pm Advance Directive Response Recorded Date/ Time Name of Medical Power of Corrugated Box Machine Operator Wil Bennett May 28, 2022 5:51pm Advance Directives Yes September 29, 2013 1:33pm Living Will Yes May 28 5:51pm Power of Corrugated Box Machine Operator Yes May 28, 2022 5:51pm Advance Directive Response Recorded Date/ Time Name of Medical Power of Corrugated Box Machine Operator Wil Bennett May 28, 2022 5:51pm Name of Medical Power of Corrugated Box Machine Operator Joon Bennett , kwasi June 04, 2022 10:29am Advance Directives Yes September 29, 2013 1:33pm Living Will Yes June 04, 2022 10:29am Power of Corrugated Box Machine Operator Yes May 10:29am Advance Directive Response Recorded Date/ Time Name of Medical Power of Corrugated Box Machine Operator Wil Bennett May 28, 2022 4:51pm Name of Medical Power of Corrugated Box Machine Operator Joon Bennett , kwasi June 04, 2022 9:29am Advance Directives Yes September 29, 2013 12:33pm Living Will Yes June 04, 2022 9:29am Power of Corrugated Box Machine Operator Yes May 9:29am Advance Directive Response Recorded Date/ Time Name of Medical Power of Corrugated Box Machine Operator Wil Bennett May 28, 2022 4:51pm Name of Medical Power of Corrugated Box Machine Operator Joon Bennett , kwasi June 04, 2022 9:29am Name of Medical Power of Corrugated Box Machine Operator Eduin Bennett September 12, 2022 5:53pm Advance Directives Yes September 29, 2013 12:33pm Living Will Yes Rolf 24th, 2 022 5:53pm Power of Corrugated Box Machine Operator Yes September 12, 2022 5:53pm Advance Directive Response Recorded Date/ Time Name of Medical Power of Corrugated Box Machine Operator Wil Bennett May 28, 2022 4:51pm Name of Medical Power of Corrugated Box Machine Operator kwasi Serrano June 04, 2022 9:29am Name of Medical Power of Corrugated Box Machine Operator kwasi Serrano & Pau Cowan, daughter September 12, 2022 10:44pm Advance Directives Yes September 29, 2013 12:33pm Living Will Yes September 12, 2 022 10:44pm Power of Corrugated Box Machine Operator Yes September 12, 2022 10:44pm Advance Directive Response Recorded Date/ Time Name of Medical Power of Corrugated Box Machine Operator kwasi Serrano & Pau Cowan, daughter September 12, 2022 11:44pm Advance Directives Yes September 29, 2013 1:33pm Living Will Yes September 12, 2 022 11:44pm Power of Corrugated Box Machine Operator Yes September 12, 2022 11:44pm Advance Directive Response Recorded Date/ Time Advance Directives Yes September 29, 2013 1:33pm Living Will Yes September 12, 2 022 11:44pm Power of Corrugated Box Machine Operator Yes September 12, 2022 11:44pm Advance Directive Response Recorded Date/ Time Name of Medical Power of Corrugated Box Machine Operator EDUIN BENNETT; PAU COWAN December 03, 2023 2:00pm Advance Directives Yes September 29, 2013 1:33pm Living Will Yes December 03, 2023 2:00pm Power of Corrugated Box Machine Operator Yes December 02 2:00pm Advance Directive Response Recorded Date/ Time Name of Medical Power of Corrugated Box Machine Operator Pau Cowan and Joon Bennett December 18, 2023 12:36am Advance Directives Yes September 29, 2013 1:33pm Living Will Yes December 18, 2023 12:36am Power of Corrugated Box Machine Operator Yes December 17 12:36am Name of Medical Power of Corrugated Box Machine Operator EDUIN BENNETT; PAU COWAN December 03, 2023 2:00pm Advance Directive Response Recorded Date/ Time Name of Medical Power of Corrugated Box Machine Operator SPOUSE December 17, 2023 7:43pm Advance Directives Yes September 29, 2013 1:33pm Living Will Yes December 17, 2023 7:43pm Power of Corrugated Box Machine Operator Yes December 16 7:43pm Name of Medical Power of Corrugated Box Machine Operator EDUIN COWAN December 03, 2023 2:00pm Advance Directive Response Recorded Date/ Time Living Will Yes April 23, 2024 3:16am Do you have a Healthcare Power of Corrugated Box Machine Operator? Yes April 23, 2024 3:16am Advance Directives Yes September 29, 2013 1:33pm Advance Directive Response Recorded Date/ Time Advance Directives Yes September 29, 2013 1:33pm Advance Directive Response Recorded Date/ Time Do you have a Healthcare Power of Corrugated Box Machine Operator? Yes February 06, 2025 9:44am Advance Directives Yes September 29, 2013 1:33pm Summary Purpose Additional Source Comments Source Comments (unrecognize d section and content) In the event this informatio n is protected by the Federal Confidentiality of Alcohol and Drug Abuse Patient Records regulations: The Federal rules restrict any use of the information to criminally investigate or prosecute any alcohol or drug abuse patient.[facility] the event this information is protected by the Federal Confidentiality of Alcohol and Drug Abuse Patient Records regulations: The Federal rules restrict any use of the information to criminally investigate or prosecute any alcohol or drug abuse patient.[facility] the event this information is protected by the Federal Confidentiality of Alcohol and Drug Abuse Patient Records regulations: The Federal rules restrict any use of the information to criminally investigate or prosecute any alcohol or drug abuse patient.[facility] the event this information is protected by the Federal Confidentiality of Alcohol and Drug Abuse Patient Records regulations: The Federal rules restrict any use of the information to criminally investigate or prosecute any alcohol or drug abuse patient.[facility] the event this information is protected by the Federal Confidentiality of Alcohol and Drug Abuse Patient Records regulations: The Federal rules restrict any use of the information to criminally investigate or prosecute any alcohol or drug abuse patient.[facility] the event this information is protected by the Federal Confidentiality of Alcohol and Drug Abuse Patient Records regulations: The Federal rules restrict any use of the information to criminally investigate or prosecute any alcohol or drug abuse patient.[facility] the event this information is protected by the Federal Confidentiality of Alcohol and Drug Abuse Patient Records regulations: The Federal rules restrict any use of the information to criminally investigate or prosecute any alcohol or drug abuse patient.[facility] the event this information is protected by the Federal Confidentiality of Alcohol and Drug Abuse Patient Records regulations: The Federal rules restrict any use of the information to criminally investigate or prosecute any alcohol or drug abuse patient.[facility] the event this information is protected by the Federal Confidentiality of Alcohol and Drug Abuse Patient Records regulations: The Federal rules restrict any use of the information to criminally investigate or prosecute any alcohol or drug abuse patient.[facility] Reason for Visit (unrecogniz ed section and content) Reason Comments New Patient Evaluation Reason Comments Results Low iron saturation Reason Comments Patient Question Reason Comments Results Reason Comments Extremity Weakness Reason Comments lab results Care Teams (unrecognized sec tion and content) Department Operations Manager Relationship Specialty Start Date End Date Pcp, No PCP - General 04/04/22 10/20/22 Department Operations Manager Relationship Specialty Start Date End Date Desmond Riojas Chi [address] [place] [address] PCP - General Gerontology 06/18/22 Luis Felipe Radford DO [address] [place] [address] Hematology/Oncology 06/19/22 Department Operations Manager Relationship Specialty Start Date End Date Desmond Rioajs Chi [address] [place] [address] PCP - General Gerontology 06/18/22 Luis Felipe Radford, DO [address] [place] [address] Hematology/Oncology 06/19/22 Department Operations Manager Relationship Specialty Start Date End Date Desmond Riojas Chi [address] [place] [address] PCP - General Gerontology 06/18/22 Luis Felipe Radford DO [address] [place] [address] Hematology/Oncology 06/19/22 Team Status: Active Member Role Status Dates Dr. Desmond Riojas MD Family Provider Active Dr. Desmond Riojas MD Primary Care Provider Active Team Status: Active Member Role Status Dates Dr. Desmond Riojas MD Primary Care Provider Active Dr. Gucci Liang MD Emergency Provider Active Dr. Margot Ribeiro MD Admit Provider, Other Provider Active Dr. Giuliano Will MD Attending Provider, Other Provid er Active Team Status: Inactive Member Role Status Dates Dr. Desmond Riojas MD Primary Care Provider, Referring Provider Active Dr. Jack Pacheco DO Attending Provider Active Team Status: Active Member Role Status Dates Dr. Desmond Riojas MD Primary Care Provider Active Dr. Marlin Onofre MD Attending Provider Active Team Status: Inactive Member Role Status Dates Dr. Desmond Riojas MD Primary Care Provider Active Dr. Dionicio Smyth MD Attending Provider Active Team Status: Active Member Role Status Dates Dr. Desmond Riojas MD Primary Care Provider Active Dr. Darrel Caceres MD Attending Provider, Referring P marcelo Active Team Status: Inactive Member Role Status Dates Dr. Desmond Riojas MD Primary Care Provider Active Dr. Gucci Liang MD Emergency Provider Active Dr. Margot Ribeiro MD Admit Provider, Other Provider Active Dr. Giuliano Will MD Attending Provider Active Team Status: Inactive Member Role Status Dates Dr. Desmond Riojas MD Primary Care Provi j carlos, Attending Provider, Referring Provider Active Team Status: Active Member Role Status Dates Dr. Desmond Riojas MD Primary Care Provider Active Dr. Jack Pacheco DO Attending Provider, Referring P rovider Active Team Status: Inactive Member Role Status Dates Dr. 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 Desmond Riojas MD Primary Care Provider Active Dr. Jayne Munoz MD Attending Provider, Referring Pr ovider Active Team Status: Inactive Member Role Status Dates Dr. Desmond Riojas MD Primary Care Provider Active Dr. Jack Pacheco DO Attending Provider, Referring P rovider Active Team Status: Active Member Role Status Dates Dr. Desmond Riojas MD Primary Care Provi j carlos, Attending Provider, Referring Provider Active Team Status: Inactive Member Role Status Dates Dr. Desmond Riojas MD Primary Care Provider Active Dr. Vic Valles DO Emergency Provider Active Team Status: Active Member Role Status Dates Dr. Desmond Riojas MD Primary Care Provider Active Dr. Jared Green MD Emergency Provider Active Dr. Giuliano Gilliland DO Admit Provider, Other Provid er Active Dr. Сергей Vega MD Attending Provider, Other Provider Active Team Status: Active Member Role Status Dates Dr. Desmond Riojas MD Primary Care Provider Active Dr. Jared Green MD Emergency Provider Active Dr. Giuliano Gilliland DO Admit Provider, Other Provid er Active Dr. Renae Ordoñez MD Attending Provider, Other Prov ider Active Dr. Сергей Vega MD Other Provider Active Team Status: Inactive Member Role Status Dates Dr. Desmond Riojas MD Primary Care Provider Active Dr. Jared Green MD Emergency Provider Active Dr. Giuliano Gilliland DO Admit Provider, Other Provid er Active Dr. Renae Ordoñez MD Attending Provider Active Dr. Сергей Vega MD Other Provider Active Team Status: Inactive Member Role Status Dates Dr. Desmond Riojas MD Primary Care Provider Active Dr. Vic Valles DO Attending Provider, Emergency P marcelo Active Team Status: Active Member Role Status Dates Dr. Desmond Riojas MD Primary Care Provider Active Dr. Preston Molina MD Attending Provider, Referring Provider Active Team Status: Inactive Member Role Status Dates Dr. Desmond Riojas MD Primary Care Provider Active Dr. Preston Molina MD Attending Provider, Referring Provider Active Team Status: Active Member Role Status Dates Dr. Desmond Riojas MD Primary Care Provider Active Dr. Jared Green MD Emergency Provider Active Dr. 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 Operations Manager Relationship Specialty Start Date End Date Dewayne Riojas MD [address] [place] [id number] PCP - General Geriatric Medicine 03/19/23 Department Operations Manager Relationship Specialty Start Date End Date Dewayne Riojas MD [address] [place] [address] PCP - General Geriatric Medicine 03/19/23 Department Operations Manager Relationship Specialty Start Date End Date Dewayne Riojas MD [address] [place] [address] PCP - General Geriatric Medicine 03/19/23 Department Operations Manager Relationship Specialty Start Date End Date Dewayne Riojas MD [address] [place] [address] PCP - General Geriatric Medicine 03/19/23 Department Operations Manager Relationship Specialty Start Date End Date Dewayne Riojas MD [address] [place] [address] PCP - General Geriatric Medicine 03/19/23 Department Operations Manager Relationship Specialty Start Date End Date Dewayne Riojas MD [address] [place] [address] PCP - General Geriatric Medicine 03/19/23 Department Operations Manager Relationship Specialty Start Date End Date Dewayne Riojas MD [address] [place] [address] PCP - General Geriatric Medicine 03/19/23 Department Operations Manager Relationship Specialty Start Date End Date Dewayne Riojas MD [address] [place] [address] PCP - General Geriatric Medicine 03/19/23 Department Operations Manager Relationship Specialty Start Date End Date Dewayne Riojas MD [address] [place] [address] PCP - General Geriatric Medicine 03/19/23 Department Operations Manager Relationship Specialty Start Date End Date Dewayne Riojas MD [address] [place] [address] PCP - General Geriatric Medicine 03/19/23 Team Status: Inactive Member Role Status Dates Dr. Desmond Riojas MD Primary Care Provider Active Start: August 25, 2024 End: August 25, 2024 Dr. Desmond Riojas MD Referring Provider Active Start: August 25, 2024 End: August 25, 2024 SUSANNA Murphy Attending Provider Active Start: August 25, 2024 End: August 25, 2024 Team Status: Inactive Member Role Status Dates Dr. Desmond Riojas MD Primary Care Provider Active Start: November 24, 2024 End: November 24, 2024 Dr. Desmond Riojas MD Referring Provider Active Start: November 24, 2024 End: November 24, 2024 SUSANNA Murphy Attending Provider Active Start: November 24, 2024 End: November 24, 2024 Team Status: Inactive Member Role Status Dates Dr. Desmond Riojas MD Primary Care Provider Active Start: December 05, 2024 End: December 05, 2024 Dr. Desmond Riojas MD Attending Provider Active Start: December 05, 2024 End: December 05, 2024 Dr. Desmond Riojas MD Referring Provider Active Start: December 05, 2024 End: December 05, 2024 Team Status: Inactive Member Role Status Dates Dr. Desmond Riojas MD Primary Care Provider Active Start: December 29, 2024 End: December 29, 2024 LIZ Monaco Attending Provider Active S tart: December 29, 2024 End: December 29, 2024 LIZ Monaco Referring Provider Active S tart: December 29, 2024 End: December 29, 2024 Team Status: Active Member Role Status Dates Dr. Desmond Riojas MD Primary Care Provider Active Team Status: Inactive Member Role Status Dates Dr. Desmond Riojas MD Primary Care Provider Active Start: January 18, 2025 End: January 18, 2025 Dr. Desmond Riojas MD Referring Provider Active Start: January 18, 2025 End: January 18, 2025 Dr. Marlin Onofre MD Attending Provider Active Start: January 18, 2025 End: January 18, 2025 Team Status: Inactive Member Role Status Dates Dr. Desmond Riojas MD Primary Care Provider Active Start: January 22, 2025 End: January 22, 2025 LIZ Monaco Attending Provider Active S tart: January 22, 2025 End: January 22, 2025 LIZ Monaco Referring Provider Active S tart: January 22, 2025 End: January 22, 2025 Team Status: Inactive Member Role Status Dates Dr. Desmond Riojas MD Primary Care Provider Active Start: February 07, 2025 End: February 07, 2025 Dr. Desmond Riojas MD Referring Provider Active Start: February 07, 2025 End: February 07, 2025 Dr. Alexander Bailey DO Attending Provider Active Start: February 07, 2025 End: February 07, 2025 Team Status: Active Member Role Status Dates Dr. Desmond Riojas MD Primary Care Provider Active Start: February 07, 2025 Dr. Desmond Riojas MD Referring Provider Active Start: February 07, 2025 Dr. Alexander Bailey DO Attending Provider Active Start: February 07, 2025 Dr. Alexander Bailey DO Other Provider Active St art: February 07, 2025 Team Status: Inactive Member Role Status Dates Dr. Desmond Riojas MD Primary Care Provider Active Start: February 20, 2025 End: February 20, 2025 Dr. Marlin Onofre MD Attending Provider Active Start: February 20, 2025 End: February 20, 2025 Dr. Marlin Onofre MD Referring Provider Active Start: February 20, 2025 End: February 20, 2025 Team Status: Active Member Role Status Dates Dr. Desmond Riojas MD Primary Care Provider Active Start: February 20, 2025 Dr. Marlin Onofre MD Attending Provider Active Start: February 20, 2025 Team Status: Inactive Member Role Status Dates Dr. Desmond Riojas MD Primary Care Provider Active Start: 2025 End: 2025 Dr. Desmond Riojas MD Referring Provider Active Start: 2025 End: 2025 SUSANNA Murphy Attending Provider Active Start: 2025 End: 2025 Team Status: Active Member Role Status Dates Dr. Desmond Riojas MD Primary Care Provider Active Start: February 20, 2025 Dr. Marlin Onofre MD Attending Provider Active Start: February 20, 2025 Dr. Marlin Onofre MD Referring Provider Active Start: February 20, 2025 Team Status: Active Member Role/Relationship Status Dates Dr. Desmond Riojas MD Primary Care Provider Active Team Status: Inactive Member Role/Relationship Status Dates Dr. Desmond Riojas MD Primary Care Provider Active Start: February 07, 2025 End: February 07, 2025 Dr. Desmond Riojas MD Referring Provider Active Start: February 07, 2025 End: February 07, 2025 Dr. Alexander Bailey DO Attending Provider Active Start: February 07, 2025 End: February 07, 2025 Team Status: Active Member Role/Relationship Status Dates Dr. Desmond Riojas MD Primary Care Provider Active Start: February 07, 2025 Dr. Desmond Riojas MD Referring Provider Active Start: February 07, 2025 Dr. Alexander Bailey DO Attending Provider Active Start: February 07, 2025 Dr. Alexander Bailey DO Other Provider Active St art: February 07, 2025 Team Status: Inactive Member Role/Relationship Status Dates Dr. Desmond Riojas MD Primary Care Provider Active Start: February 20, 2025 End: February 20, 2025 Dr. Marlin Onofre MD Attending Provider Active Start: February 20, 2025 End: February 20, 2025 Dr. Marlin Onofre MD Referring Provider Active Start: February 20, 2025 End: February 20, 2025 Team Status: Active Member Role/Relationship Status Dates Dr. Desmond Riojas MD Primary Care Provider Active Start: February 20, 2025 Dr. Marlin Onofre MD Attending Provider Active Start: February 20, 2025 Team Status: Inactive Member Role/Relationship Status Dates Dr. Desmond Riojas MD Primary Care Provider Active Start: 2025 End: 2025 Dr. Desmond Riojas MD Referring Provider Active Start: 2025 End: 2025 SUSANNA Murphy Attending Provider Active Start: 2025 End: 2025 Team Status: Active Member Role/Relationship Status Dates Dr. Desmond Riojas MD Primary Care Provider Active Start: May 28, 2025 Dr. Judd Rubio MD Attending Provider Active S tart: May 28, 2025 Dr. Judd Rubio MD Referring Provider Active S tart: May 28, 2025 Team Status: Inactive Member Role/Relationship Status Dates Dr. Desmond Riojas MD Primary Care Provider Active Start: May 31, 2025 End: May 31, 2025 Dr. Desmond Riojas MD Referring Provider Active Start: May 31, 2025 End: May 31, 2025 SUSANNA Murphy Attending Provider Active Start: May 31, 2025 End: May 31, 2025 Team Status: Active Member Role/Relationship Status Dates Dr. Desmond Riojas MD Primary care physician Active Team Status: Inactive Member Role/Relationship Status Dates Dr. Desmond Riojas MD Primary care physician Active Start: 2025 End: 2025 Dr. Desmond Riojas MD Referring Provider Active Start: 2025 End: 2025 SUSANNA Murphy Attending physician Active Start: 2025 End: 2025 Team Status: Inactive Member Role/Relationship Status Dates Dr. Desmond Riojas MD Primary care physician Active Start: May 31, 2025 End: May 31, 2025 Dr. Desmond Riojas MD Referring Provider Active Start: May 31, 2025 End: May 31, 2025 SUSANNA Murphy Attending physician Active Start: May 31, 2025 End: May 31, 2025 Team Status: Inactive Member Role/Relationship Status Dates Dr. Desmond Riojas MD Primary care physician Active Start: June 07, 2025 End: June 07, 2025 Dr. Desmond Riojas MD Attending physician Active Start: June 07, 2025 End: June 07, 2025 Team Status: Active Member Role/Relationship Status Dates Dr. Desmond Riojas MD Primary care physician Active Start: June 20, 2025 Dr. Judd Rubio MD Attending physician Active Start: June 20, 2025 Dr. Judd Rubio MD Referring Provider Active S tart: June 20, 2025 INFORMATION SOURCE (unrecogn ized section and content) DATE CREATED AUTHOR 12/15/2022 [facility] DATE CREATED AUTHOR AUTHOR'S ORGANIZ ATION 10/10/2024 [facility] DATE CREATED AUTHOR AUTHOR'S ORGANIZ ATION 08/03/2025 [facility] FOR RECORDS PERTAINING TO PATIENTS WHO ARE [...] BE BASED ON THE PRIMARY CLINICAL RECORDS. [facility]. provides no warranty or guarantee of the accuracy or completeness of information in this document.
--- NOTE | 2025-08-28 12:24 | STRESSREP_ITS ---
Stress Test Report Date: 08/24/2025 Procedure: Pharmacologic stress nuclear imaging study Indications: Abnormal echocardiogram Consent: Per the patient Procedure: The patient underwent pharmacologic (Regadenoson 0.4mg ) evaluation with a peak heart rate of 106 beats per minute (74%predicted maximal heart rate) and a peak blood pressure of 118/62 mmHg. The baseline ECG demonstrated sinus rhythm. The peak pharmacologic ECG did not show any ischemic changes. Frequent PVCs noted post pharmacologic infusion. There was no complaint of chest discomfort during pharmacologic infusion or recovery. The patient was injected with 11.8 millicuries of technetium 99m Cardiolite and subsequently rest SPECT Cardiolite nuclear imaging was obtained in the horizontal long, vertical long, and short axis views. The patient underwent pharmacologic (Regadenoson) evaluation. The patient was injected with 33.5 millicuries of technetium 99m Cardiolite and subsequently stress SPECT Cardiolite nuclear imaging was obtained in the horizontal long, vertical long, and short axis views. A gated Cardiolite study at peak stress was obtained. The examination was stopped secondary to completion of protocol. Rest and stress SPECT Cardiolite nuclear imaging status post realignment, normalization, and attenuation correction demonstrate no fixed or reversible p erfusion defects. There is end systolic thickening and brightening. The gated study shows normal left ventricular wall motion. The reported LVEF is 75%. Impression: 1. Pharmacologic (Regadenoson) evaluation 2. Peak pharmacologic ECG with no ischemic changes. 3. Frequent PVCs in recovery. 5. Rest and stress SPECT Cardiolite nuclear imaging demonstrate relative uniform tracer uptake and myocardial perfusion appearing within normal limits. 6. The gated Cardiolite study reports an LVEF of 75%. This note was generated with [employer] software. It may contain incorrect words, spelling, and punctuation that were not noted in checking the note before signing.
== END | disposition home or self-care (01) ==
LOC: CVS 06:04
PROVIDERS: PCP Family Medicine Geriatric Medicine; Referring Provider Internal Medicine Cardiovascular Disease; Visit Provider Internal Medicine Cardiovascular Disease
DX: I48.0 Paroxysmal atrial fibrillation (principal); R94.31 Abnormal electrocardiogram [ECG] [EKG]
CPT/HCPCS: 78452; 93017; A9500; A4216; J2785